=== PATIENT | female | born 1990 | race Caucasian/White ===

== ENCOUNTER 2018-03-11 15:51 | Emergency (ER) | payer MEDICAID ==
[~2018-03-11] VITALS: Ht 172.7 cm; Wt 101.2 kg
--- OUTSIDE RECORDS SUMMARY | 2018-03-11 15:59 | XMS REPORT ---
Author Author CHEYENNE MCLAUGHLIN [facility] eClinicalWorks Address Unknown Phone Unavailable Care Team Providers Care Legal Manager Name Role Phone CHEYENNE MCLAUGHLIN CP Unavailable Allergies, Adverse Reactions, Alerts Substance Reaction Event Type N.K.D.A. Info Not Available Non Drug Allergy Problems Problem Type Condition Code Onset Dates Condition Status Problem Encounter for long-term (current) use of other medications V58.69 Active Problem 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.00 Active Problem Bipolar disorder, unspecified 296.80 Active Assessment Attention deficit hyperactivity disorder (ADHD), combined type F90.2 Active Assessment Posttraumatic stress disorder F43.10 Active Problem Posttraumatic stress disorder 309.81 Active Assessment Bipolar disorder, unspecified F31.9 Active Medications Medication Code System Code Instructions Start Date End Date Status Dosage Abilify [facility] [address]-57 15 MG Orally Once a day January 22, 2015 1 tablet Zoloft [facility] 16494195944 100 Orally Once a day 1 tablet Clonidine HCl [facility] [address]-92 0.1 MG Orally twice a day 1 tablet Trazodone HCl [facility] [address]-77 100 MG Orally Once a day March 29, 2015 1 tablet Intuniv [facility] 26658460241 2 Orally Once a day 1 tablet Claritin [facility] [address]-46 10 mg Jul 04, 2014 1 Tablet by Oral route 1 time per day DDAVP [facility] [address]-49 0.2 MG Orally Once a day 1 tablet Alprazolam [facility] [address]-15 0.25 MG Orally 2 times a day April 20, 2015 1 tablet Zyprexa Zydis [facility] [address]-28 5 MG Orally as needed Once a day January 22, 2015 1 tablet on the tongue and allow to dissolve Enablex [facility] [address]-20 Aug 17, 2012 by Oral route trazodone [facility] [address]-50 100 mg January 22, 2015 1 Tablet by Oral route 1 time per day Procedures Procedure Coding System Code Date MH Office Visit, Est Pt., Level 3 CPT-4 01760 February 27, 2016 Vital Signs Date/Time: February 27, 2016 Temperature 97.9 F Weight 227.9 lbs Height 67.5 in BMI 35.16 Index Blood Pressure Diastolic 60 mmHg Blood Pressure Systolic 122 mmHg Cardiac Monitoring Heart Rate 78 bpm Results No Known Results Summary Purpose eClinicalWorks Submission
--- OUTSIDE RECORDS SUMMARY | 2018-03-11 15:59 | XMS REPORT ---
Author Author CHEYENNE MCLAUGHLIN [facility] [place] eClinicalWorks Address Unknown Phone Unavailable Care Team Providers Care Veterinary Receptionist Name Role Phone CHEYENNE MCLAUGHLIN CP Unavailable Allergies No Known Allergies Problems Problem Type Condition Code Onset Dates Condition Status Problem Encounter for long-term (current) use of other medications V58.69 Active Problem 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.00 Active Problem Bipolar disorder, unspecified 296.80 Active Assessment Posttraumatic stress disorder F43.10 Active Assessment Bipolar disorder, unspecified F31.9 Active Problem Posttraumatic stress disorder 309.81 Active Assessment Attention deficit hyperactivity disorder (ADHD), combined type F90.2 Active Medications Medication Code System Code Instructions Start Date End Date Status Dosage DDAVP [facility] [address]-60 0.2 MG Orally Once a day Aug 08, 2015 Oct 07, 2015 1 tablet Trazodone HCl [facility] [address]-49 100 MG Orally Once a day March 29, 2015 1 tablet Intuniv [facility] [address]-52 2 MG Orally Once a day January 22, 2015 1 tablet trazodone [facility] [address]-93 100 mg January 22, 2015 1 Tablet by Oral route 1 time per day Enablex [facility] [address]-87 Aug 17, 2012 by Oral route Claritin [facility] [address]-19 10 mg Jul 04, 2014 1 Tablet by Oral route 1 time per day Clonidine HCl [facility] [address]-85 0.1 MG Orally twice a day 1 tablet Abilify [facility] [address]-28 15 MG Orally Once a day January 22, 2015 1 tablet Zyprexa Zydis [facility] [address]-90 5 mg January 22, 2015 1 Tablet, Rapid Dissolve by Sublingual route 1 time per day in evening prn agitation. Alprazolam [facility] [address]-57 0.25 MG Orally 2 times a day April 20, 2015 1 tablet Zoloft [facility] 88751209051 100 Orally Once a day 1 tablet Procedures Procedure Coding System Code Date MH Office Visit, Est Pt., Level 3 CPT-4 89733 Oct 03, 2015 Vital Signs Date/Time: Oct 03, 2015 Cardiac Monitoring Heart Rate 72 bpm Weight 221.6 lbs Height 67.5 in BMI 34.19 Index Blood Pressure Diastolic 64 mmHg Blood Pressure Systolic 114 mmHg Results No Known Results Summary Purpose eClinicalWorks Submission
--- OUTSIDE RECORDS SUMMARY | 2018-03-11 15:59 | XMS REPORT ---
Author Author CHEYENNE MCLAUGHILN Organization eClinicalWorks Address Unknown Phone Unavailable Care Team Providers Care Agricultural Crop Farm Manager Name Role Phone CHEYENNE MCLAUGHLIN CP Unavailable Allergies No Known Allergies Problems Problem Type Condition Code Onset Dates Condition Status Problem Encounter for long-term (current) use of other medications V58.69 Active Problem 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.00 Active Problem Bipolar disorder, unspecified 296.80 Active Problem Posttraumatic stress disorder 309.81 Active Medications Medication Code System Code Instructions Start Date End Date Status Dosage Alprazolam [facility] [address]-96 0.25 MG Orally 2 times a day April 20, 2015 1 tablet Results No Known Results Summary Purpose eClinicalWorks Submission
--- OUTSIDE RECORDS SUMMARY | 2018-03-11 15:59 | XMS REPORT ---
Author Author CHEYENNE Barnes Organization [facility] Address Unknown Care Team Providers Care Product Inspection Coordinator Name Role Phone CHEYENNE Barnes Unavailable PROBLEMS Type Condition ICD9-CM Code [id number] Code Onset Dates Condition Status SNOMED Code Problem Encounter for long-term (current) use of other medications V58.69 Active 406059292 Problem Bipolar disorder, unspecified F31.9 Active 84367450 Problem Posttraumatic stress disorder F43.10 Active 91729309 Problem Posttraumatic stress disorder 309.81 Active 49548093 Problem 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.00 Active 96199511 Problem Attention deficit hyperactivity disorder (ADHD), combined type F90.2 Active 029199648 Problem Bipolar disorder, unspecified 296.80 Active 99311634 ALLERGIES No Known Allergies SOCIAL HISTORY Never Assessed PLAN OF CARE Activity Details Follow Up 3 Months Reason: VITAL SIGNS Height 67.5 in 2016-12-24 Weight 232 lbs 2016-12-24 Heart Rate 80 bpm 2016-12-24 Respiratory Rate 18 2016-12-24 BMI 35.80 kg/m2 2016-12-24 Blood pressure systolic 102 mmHg 2016-12-24 Blood pressure diastolic 80 mmHg 2016-12-24 MEDICATIONS Medication Instructions Dosage Frequency Start Date End Date Duration Status Zoloft 100 MG Orally Once a day 1 tablet 24h 30 days Active Abilify 15 MG Orally Once a day 1 tablet 24h Jan, 30 days Active Alprazolam 0.25 MG Orally 2 times a day 1 tablet 12h Apr, 30 days Active DDAVP 0.2 TAKE ONE TABLET BY MOUTH DAILY 30 Active Claritin 10 mg 1 Tablet by Oral route 1 time per day Jun, Active Abilify 15 Orally Once a day 1 tablet 24h 30 Active Intuniv 2 MG Orally Once a day 1 tablet 24h 30 days Active Clonidine HCl 0.1 MG Orally twice a day 1 tablet 12h 30 days Active Enablex by Oral route Aug, Active Trazodone HCl 100 MG Orally Once a day 1 tablet 24h March, 30 days Active Zyprexa Zydis 5 MG Orally as needed Once a day 1 tablet on the tongue and allow to dissolve 24h Jan, 30 days Active DDAVP 0.2 MG Orally Once a day 1 tablet 24h 30 days Active RESULTS No Results PROCEDURES No Known procedures IMMUNIZATIONS No Known Immunizations MEDICAL (GENERAL) HISTORY Type Description Date Medical History Guardian requests that we do not explain any treatment to patient!
--- OUTSIDE RECORDS SUMMARY | 2018-03-11 15:59 | XMS REPORT ---
Author Author CHEYENNE MCLAUGHLIN Organization eClinicalWorks Address Unknown Phone Unavailable Care Team Providers Care Wiping Cloth Cutter Name Role Phone CHEYENNE MCLAUGHLIN CP Unavailable Allergies No Known Allergies Problems Problem Type Condition Code Onset Dates Condition Status Problem Encounter for long-term (current) use of other medications V58.69 Active Problem 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.00 Active Problem Bipolar disorder, unspecified 296.80 Active Problem Posttraumatic stress disorder 309.81 Active Medications No Known Medications Results No Known Results Summary Purpose eClinicalWorks Submission
--- OUTSIDE RECORDS SUMMARY | 2018-03-11 15:59 | XMS REPORT ---
Author Author CHEYENNE Barnes Organization [facility] Address Unknown Care Team Providers Care Coal Cager Name Role Phone CHEYENNE Barnes Unavailable PROBLEMS Type Condition ICD9-CM Code [id number] Code Onset Dates Condition Status SNOMED Code Problem Encounter for long-term (current) use of other medications V58.69 Active 805591571 Problem Bipolar disorder, unspecified F31.9 Active 54052004 Problem Posttraumatic stress disorder F43.10 Active 28320604 Problem Posttraumatic stress disorder 309.81 Active 17351302 Problem 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.00 Active 37193144 Problem Attention deficit hyperactivity disorder (ADHD), combined type F90.2 Active 929680987 Problem Bipolar disorder, unspecified 296.80 Active 94093215 ALLERGIES No Known Allergies SOCIAL HISTORY Never Assessed PLAN OF CARE Activity Details Follow Up 3 Months Reason: VITAL SIGNS Height 67.5 in 2017-03-25 Weight 228.8 lbs 2017-03-25 Heart Rate 80 bpm 2017-03-25 Respiratory Rate 16 2017-03-25 BMI 35.30 kg/m2 2017-03-25 Blood pressure systolic 108 mmHg 2017-03-25 Blood pressure diastolic 72 mmHg 2017-03-25 MEDICATIONS Medication Instructions Dosage Frequency Start Date End Date Duration Status DDAVP 0.2 TAKE ONE TABLET BY MOUTH DAILY 30 Active Claritin 10 mg 1 Tablet by Oral route 1 time per day Jun, Active BusPIRone HCl 5 MG Orally in am once a day 1 tablet 24h March, 30 days Active Trazodone HCl 100 MG Orally Once a day 1 tablet 24h March, 30 days Active Abilify 15 MG Orally Once a day 1 tablet 24h Jan, 30 days Active Enablex by Oral route Aug, Active Abilify 15 Orally Once a day 1 tablet 24h 30 Active Intuniv 2 MG Orally Once a day 1 tablet 24h 30 days Active Zyprexa Zydis 5 MG Orally as needed Once a day 1 tablet on the tongue and allow to dissolve 24h Jan, 30 days Active Zoloft 100 MG Orally Once a day 1 tablet 24h 30 days Active DDAVP 0.2 MG Orally Once a day 1 tablet 24h 30 days Active Alprazolam 0.25 MG Orally 2 times a day 1 tablet 12h Apr, 30 days Active Clonidine HCl 0.1 MG Orally twice a day 1 tablet 12h 30 days Active RESULTS No Results PROCEDURES No Known procedures IMMUNIZATIONS No Known Immunizations MEDICAL (GENERAL) HISTORY Type Description Date Medical History Guardian requests that we do not explain any treatment to patient!
--- OUTSIDE RECORDS SUMMARY | 2018-03-11 16:00 | XMS REPORT ---
Author Author CHEYENNE MCLAUGHLIN Organization eClinicalWorks Address Unknown Phone Unavailable Care Team Providers Care Ply Splicer Name Role Phone CHEYENNE MCLAUGHLIN CP Unavailable [...] Instructions Start Date End Date Status Dosage Intuniv [facility] [address]-25 2 MG Orally Once a day January 22, 2015 1 tablet Abilify [facility] [address]-57 15 MG Orally Once a day January 22, 2015 1 tablet Clonidine HCl [facility] [address]-00 0.1 MG Orally twice a day 1 tablet Zoloft [facility] 37558612925 100 Orally Once a day 1 tablet Trazodone HCl [facility] [address]-14 100 MG Orally Once a day March 29, 2015 1 tablet Results No Known Results Summary Purpose eClinicalWorks Submission
--- OUTSIDE RECORDS SUMMARY | 2018-03-11 16:00 | XMS REPORT ---
Author Author CHEYENNE MCLAUGHLIN Organization eClinicalWorks Address Unknown Phone Unavailable Care Team Providers Care Services Rep Name Role Phone CHEYENNE MCLAUGHLIN CP Unavailable [...] Start Date End Date Status Dosage Alprazolam [facility] [address]-87 0.25 MG Orally 2 times a day April 20, 2015 1 tablet Results No Known Results Summary Purpose eClinicalWorks Submission
--- OUTSIDE RECORDS SUMMARY | 2018-03-11 16:00 | XMS REPORT ---
Author Author CHEYENNE Barnes Organization [facility] Address Unknown Care Team Providers Care Food And Beverage Attendant Name Role Phone CHEYENNE Barnes Unavailable PROBLEMS Type Condition ICD9-CM Code [id number] Code Onset Dates Condition Status SNOMED Code Problem Encounter for long-term (current) use of other medications V58.69 Active 793939881 Problem Bipolar disorder, unspecified F31.9 Active 55159714 Problem Posttraumatic stress disorder F43.10 Active 72951268 Problem Posttraumatic stress disorder 309.81 Active 52428957 Problem 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.00 Active 69427882 Problem Attention deficit hyperactivity disorder (ADHD), combined type F90.2 Active 374009769 Problem Bipolar disorder, unspecified 296.80 Active 51783969 ALLERGIES Unknown Allergies SOCIAL HISTORY No smoking Hx information available PLAN OF CARE VITAL SIGNS MEDICATIONS Medication Instructions Dosage Frequency Start Date End Date Duration Status Alprazolam 0.25 MG Orally 2 times a day 1 tablet 12h Apr, 30 days Active RESULTS No Results PROCEDURES No Known procedures IMMUNIZATIONS No Known Immunizations
--- OUTSIDE RECORDS SUMMARY | 2018-03-11 16:00 | XMS REPORT ---
Author Author TYRA HUFF Organization [facility] Address [address] [place] [address] Care Team Providers Care Plastic Manager Name Role Phone TYRA HUFF Unavailable PROBLEMS Type Condition ICD9-CM Code UOS79-US Code Onset Dates Condition Status SNOMED Code Problem Encounter for long-term (current) use of other medications V58.69 Active 678483101 Problem Bipolar disorder, unspecified F31.9 Active 53036103 Problem Posttraumatic stress disorder F43.10 Active 71722824 Problem Posttraumatic stress disorder 309.81 Active 77462140 Problem 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.00 Active 28358629 Problem Attention deficit hyperactivity disorder (ADHD), combined type F90.2 Active 259975150 Problem Bipolar disorder, unspecified 296.80 Active [id number] ALLERGIES No Information ENCOUNTERS Encounter Location Date Diagnosis [facility] [address] [address] March, [facility] [address] [address] Feb, Insect bite (nonvenomous), left knee, initial encounter S80.262A and Bitten or stung by nonvenomous insect and other nonvenomous arthropods, initial encounter W57.XXXA [facility] [id number] [place] [address]- [address] Feb, Bipolar disorder, unspecified F31.9 [facility] [address] [id number] Feb, Dental examination Z01.20 [facility] [address] [address] Feb, Bipolar disorder, unspecified F31.9 ; Attention deficit hyperactivity disorder (ADHD), combined type F90.2 and Posttraumatic stress disorder F43.10 [facility] [address] [id number] Feb, Dental examination Z01.20 [facility] [address] [place] [address]013- 3488 Jan, Bipolar disorder, unspecified F31.9 [facility] [id number] [place] [address]- 6980 Jan, Attention deficit hyperactivity disorder (ADHD), combined type F90.2 [facility] [address] [place] [address] 64886- 6679 Dec, Posttraumatic stress disorder F43.10 [facility] [id number] [place] [address]- 6503 Dec, Posttraumatic stress disorder F43.10 [facility] [id number] [place] [address] [id number] Nov, Dental examination Z01.20 [facility] [id number] [place] [address] [id number] Nov, Encounter for dental exam and cleaning w/o abnormal findings Z01.20 [facility] [id number] [place] [address] [id number] Nov, Dental examination Z01.20 [facility] [address] [place] [address]1020- 8786 Sep, Bipolar disorder, unspecified F31.9 ; Posttraumatic stress disorder F43.10 and Attention deficit hyperactivity disorder (ADHD), combined type F90.2 [facility] [address] [place] [address]28- 6181 Aug, Posttraumatic stress disorder F43.10 [facility] [address] [place] [address] 17897- 3201 15 Jul, 2017 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.899 [facility] [id number] [place] [address] 22135- 4174 Jul, Bipolar disorder, unspecified F31.9 ; Attention deficit hyperactivity disorder (ADHD), combined type F90.2 and Posttraumatic stress disorder F43.10 [facility] [address] [address] Jun, Bipolar disorder, unspecified F31.9 ; Posttraumatic stress disorder F43.10 ; Attention deficit hyperactivity disorder (ADHD), combined type F90.2 and [facility] 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 Z79.899 [facility] [address] [address] March, Bipolar disorder, unspecified F31.9 ; Posttraumatic stress disorder F43.10 and Attention deficit hyperactivity disorder (ADHD), combined type F90.2 [facility] [address] [address] Dec, Bipolar disorder, unspecified F31.9 ; Posttraumatic stress disorder F43.10 and Attention deficit hyperactivity disorder (ADHD), combined type F90.2 [facility] [address] [address] Dec, [facility] [address] [address] 27[address] Sep, [facility] [address] [address] Aug, Bipolar disorder, unspecified F31.9 ; Posttraumatic stress disorder F43.10 and Attention deficit hyperactivity disorder (ADHD), combined type F90.2 [facility] [address] [address] 9698 Jun, [facility] [address] [address] 6[address] March, [facility] [address] [address] 8[address] Feb, Bipolar disorder, unspecified F31.9 ; Attention deficit hyperactivity disorder (ADHD), combined type F90.2 and Posttraumatic stress disorder F43.10 [facility] [address] [address] Feb, [facility] [address] [place] [address] 67830- 8392 Feb, [facility] [address] [address] 9331 Feb, [facility] [id number] [place] [address] 000713- 5293 Jan, [facility] [address] [place] [address] [id number] Dec, Dental examination Z01.20 [facility] [id number] [place] [address] 17627- 5488 Sep, [facility] [id number] [place] [address] 04931- 3407 Sep, Attention deficit hyperactivity disorder (ADHD), combined type F90.2 ; Posttraumatic stress disorder F43.10 and Bipolar disorder, unspecified F31.9 [facility] [id number] [place] [address] 04207- 9167 Aug, [facility] [address] [address] 1524 Aug, [facility] [address] [place] [address] 24825- 5448 Jul, [facility] [address] [address] 94[address] May, Bipolar disorder, unspecified 296.80 ; 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.00 and Posttraumatic stress disorder 309.81 [facility] [address] [address] May, [facility] [address] [address]- 8101 May, [facility] [address] [place] [address] 47[address] May, [facility] [address] [id number] [place] [address]- 1281 Apr, [facility] [place] [facility] [address] [id number] [place] [address]- 3380 Apr, [facility] [place] [facility] [address] [id number] [place] [address]- 8594 Apr, [facility] [place] [facility] [address] [id number] [place] [address]- 7394 March, [facility] [place] [facility] [address] [id number] [place] [address]- 3153 March, [facility] [place] [facility] [address] [id number] [place] [address]- 0227 March, [facility] [place] [facility] [address] [id number] [place] [address]- 9949 Feb, [facility] [place] [facility] [address] [id number] [place] [address]- 6695 Feb, [facility] [place] [facility] [address] [id number] [place] [address]- 2497 Jan, [facility] [place] [facility] [address] [id number] [place] [address]- 9084 Jan, [facility] [place] [facility] [address] [id number] [place] [address]- 6492 Jan, [facility] [place] [facility] [address] [id number] [place] [address]- 6502 Jan, [facility] [place] [facility] [address] [id number] [place] [address]- 1622 Jan, [facility] [place] [facility] [address] [id number] [place] [address]- 8922 Jan, [facility] [place] [facility] [address] [id number] [place] [address]- 1965 Jan, [facility] [place] [facility] [address] [id number] [place] [address]- 7465 Jan, 2014 [facility] [place] [facility] [address] [id number] [place] [address]- 8485 Jan, 2014 [facility] [place] [facility] [address] [id number] [place] [address]- 9179 Jan, 2014 [facility] [place] [facility] [address] [id number] [place] [address]- 6048 Dec, 2014 [facility] [place] [facility] [address] [id number] [place] [address]- 2043 Dec, 2014 [facility] [place] [facility] [address] [id number] [place] [address]- 8164 Dec, 2014 [facility] [place] [facility] [address] [facility] [id number] [place] [address]- 2735 Dec, 2014 [facility] [place] [facility] [address] [facility] [id number] [place] [address]- 3710 Oct, [facility] [place] [facility] [address] [id number] [place] [address]- 5538 Oct, [facility] [place] [facility] [address] [facility] [id number] [place] [address]- 9638 Oct, [facility] [place] [facility] [address] [facility] [id number] [place] [address]- 8618 Oct, [facility] [place] [facility] [address] [id number] [address]- 3166 Oct, [facility] [place] [facility] [address] [facility] [id number] [place] [address]- 0838 Oct, [facility] [place] [facility] [address] [id number] [place] [address]- 2026 Oct, [facility] [place] [facility] [address] [facility] [id number] [place] [address]- 8945 Sep, [facility] [place] [facility] [address] [id number] [place] [address]- 9575 Sep, [facility] [place] [facility] [address] [id number] [place] [address]- 3420 Sep, [facility] [place] [facility] [address] [id number] [place] [address]- 0204 Sep, [facility] [place] [facility] [address] [id number] [place] [address]- 2002 Sep, [facility] [place] [facility] [address] [id number] [place] [address]- 1095 Sep, [facility] [place] [facility] [address] [id number] [place] [address]- 9202 Sep, [facility] [place] [facility] [address] [id number] [place] [address]- 9226 Sep, [facility] [place] [facility] [address] [id number] [place] [address]- 1752 Aug, [facility] [place] [facility] [address] [id number] [place] [address]- 9470 Aug, [facility] [place] [facility] [address] [id number] [place] [address]- 1351 Aug, [facility] [place] [facility] [address] [id number] [place] [address]- 4027 Aug, [facility] [place] [facility] [address] [id number] [place] [address]- 0496 Jul, [facility] [place] [facility] [address] [id number] [place] [address]- 7823 Jul, [facility] [place] [facility] [address] [id number] [place] [address]- 8935 Jul, [facility] [place] [facility] [address] [id number] [place] [address]- 4061 Jul, [facility] [place] [facility] [address] [id number] [place] [address]- 5330 Jun, [facility] [place] [facility] [address] [id number] [place] [address]- 3235 Jun, [facility] [place] [facility] [address] [id number] [place] [address]- 0538 Jun, [facility] [place] [facility] [address] [id number] [place] [address]- 8816 Jun, [facility] [place] [facility] [address] [id number] [place] [address]- 9984 May, [facility] [place] [facility] [address] [id number] [place] [address]- 8510 May, [facility] [place] [facility] [address] [id number] [place] [address]- 9397 May, [facility] [place] [facility] [address] [id number] [place] [address]- 0699 May, [facility] [place] [facility] [address] [id number] [place] [address]- 6263 Apr, [facility] [place] [facility] [address] [id number] [place] [address]- 7670 Apr, [facility] [place] [facility] [address] [id number] [place] [address]- 7502 Apr, [facility] [place] [facility] [address] [id number] [place] [address]- 5349 Apr, [facility] [place] [facility] [address] [id number] [place] [address]- 7041 Apr, [facility] [place] [facility] [address] [id number] [place] [address]- 8195 Apr, [facility] [place] [facility] [address] [id number] [place] [address]- 1154 Apr, [facility] [place] [facility] [address] [id number] [place] [address]- 1025 Apr, [facility] [place] [facility] [address] [id number] [place] [address]- 3516 Apr, [facility] [place] [facility] [address] [id number] [place] [address]- 3282 Apr, [facility] [place] [facility] [address] [id number] [place] [address]- 4318 Apr, [facility] [place] [facility] [address] [id number] [place] [address]- 7176 Apr, [facility] [place] [facility] [address] [id number] [place] [address]- 6667 Apr, [facility] [place] [facility] [address] [id number] [place] [address]- 6551 March, [facility] [place] [facility] [address] [id number] [place] [address]- 1895 March, [facility] [place] [facility] [address] [id number] [place] [address]- 0707 March, [facility] [place] [facility] [address] [id number] [place] [address]- 0911 March, [facility] [place] [facility] [address] [id number] [place] [address]- 0473 Jan, [facility] [place] [facility] [address] [id number] [place] [address]- 9511 Jan, [facility] [place] [facility] [address] [id number] [place] [address]- 5794 Jan, [facility] [place] [facility] [address] [id number] [place] [address]- 5192 Jan, [facility] [place] [facility] [address] [id number] [place] [address]- 7145 Jan, [facility] [place] [facility] [address] [id number] [place] [address]- 0458 Jan, [facility] [place] [facility] [address] [id number] [place] [address]- 3011 Dec, [facility] [place] [facility] [address] [id number] [place] [address]- 8450 Dec, [facility] [address] [id number] [place] [address]- 9026 Dec, [facility] [place] [facility] [address] [id number] [place] [address]- 2546 Dec, [facility] [place] [facility] [address] [id number] [place] [address]- 5676 Nov, [facility] [place] [facility] [address] [id number] [place] [address]- 2166 Nov, [facility] [place] [facility] [address] [id number] [place] [address]- 6649 Nov, [facility] [place] [facility] [address] [id number] [place] [address]- 8143 Nov, [facility] [place] [facility] [address] [id number] [place] [address]- 0891 Oct, [facility] [address] [id number] [place] [address]- 9256 Oct, [facility] [place] [facility] [address] [id number] [place] [address]- 6374 Oct, [facility] [address] [facility] [id number] [place]68 Oct, [facility] [place] [facility] [address] [id number] [place] [address]- 6242 Oct, [facility] [place] [facility] [address] [id number] [place] [address]- 2541 Oct, [facility] [place] [facility] [address] [id number] [place] [address]- 5916 Oct, [facility] [place] [facility] [address] [id number] [place] [address]- 1696 Oct, [facility] [place] [facility] [address] [id number] [place] [address]- 3355 Sep, [facility] [place] [facility] [address] [id number] [place] [address]- 2189 Sep, [facility] [place] [facility] [address] [id number] [place] [address]- 2421 Jul, [facility] [place] [facility] [address] [id number] [place] [address]- 2637 Jul, [facility] [place] [facility] [address] [id number] [place] [address]- 2816 Jul, [facility] [place] [facility] [address] [id number] [place] [address]- 6847 Jul, [facility] [place] [facility] [address] [id number] [place] [address]- 2352 Jun, [facility] [place] [facility] [address] [id number] [place] [address]- 1330 Jun, [facility] [place] [facility] [address] [id number] [place] [address]- 5976 May, [facility] [place] [facility] [address] [id number] [place] [address]- 2676 Apr, [facility] [place] [facility] [address] [id number] [place] [address]- 2865 Apr, [facility] [place] [facility] [address] [id number] [address]- 3238 Apr, [facility] [place] [facility] [address] [id number] [address]- 6675 March, [facility] [place] [facility] [address] [id number] [place] [address]- 2327 March, [facility] [place] [facility] [address] [id number] [address]- 2362 Feb, [facility] [place] [facility] [address] [id number] [place] [address]- 8637 Jan, [facility] [place] [facility] [address] [id number] [place] [address]- 0807 Jan, [facility] [address] [id number] [place] [address]- 3992 Dec, [facility] [place] [facility] [address] [id number] [place] [address]- 9486 Dec, [facility] [address] [id number] [place] [address]- 0875 Nov, [facility] [place] [facility] [address] [id number] [place] [address]- 6478 Nov, [facility] [address] [id number] [place] [address]- 1603 Nov, [facility] [place] [facility] [address] [id number] [place] [address]- 3521 Oct, [facility] [address] [id number] [place] [address]- 1159 Oct, [facility] [address] [id number] [place] [address]- 4121 Oct, [facility] [place] [facility] [address] [id number] [place] [address]- 3833 Oct, [facility] [address] [id number] [place] [address]- 7509 Sep, [facility] [place] [facility] [address] [id number] [place] [address] 2546 29 Sep, 2012 [facility] [place] [facility] [address] [id number] [place] [address]- 2549 Sep, [facility] [place] [facility] [address] [id number] [place] [address] 2543 Sep, [facility] [place] [facility] [address] [id number] [place] [address]- 2546 15 Sep, 2012 [facility] [place] [facility] [address] [id number] [place] Sep, [facility] [place] [facility] [address] [id number] [place] [address]- 2491 Aug, [facility] [place] [facility] [address] [id number] [place] [address]- 1746 26 Jul, 2012 [facility] [place] [facility] [address] [id number] [place] [address] 2542 19 Jul, 2012 [facility] [place] [facility] [address] [id number] [place] [address] 18 Jul, 2012 [facility] [address] [id number] [place] [address] 14 Jul, 2012 [facility] [place] [facility] [address] [id number] [place] [address] Jun, [facility] [place] [facility] [address] [id number] [place] [address] Jun, [facility] [place] [facility] [address] [id number] [place] [address] Jun, [facility] [place] [facility] [address] [id number] [place] [address] Jun, [facility] [place] [facility] [address] [id number] [place] [address] May, [facility] [place] [facility] [address] [id number] [place] [address] Apr, [facility] [place] [facility] [address] [id number] [place] [address] March, [facility] [place] [facility] [address] [id number] [place] [address] March, [facility] [place] [facility] [address] [id number] [place] [address] March, [facility] [place] [facility] [address] [id number] [place] [address] Feb, [facility] [place] [facility] [address] [id number] [address] Feb, [facility] [address] [id number] [place] [address] Jan, [facility] [place] [facility] [address] [id number] [place] [address] Jan, [facility] [address] [id number] [place] [address] Jan, [facility] [place] [facility] [address] [id number] [place] [address] Dec, [facility] [address] [id number] [place] [address] Dec, [facility] [address] [id number] [place] [address] Nov, [facility] [address] [id number] [place] [address] Nov, [facility] [address] [id number] [place] [address] Nov, [facility] [address] [facility] [id number] [place] [address] Nov, [facility] [address] [id number] [place] [address] Nov, [facility] [address] [id number] [address] Oct, [facility] [place] [facility] [address] [id number] [place] [address] Oct, [facility] [place] [facility] [address] [id number] [place] [address] Oct, [facility] [place] [facility] [address] [id number] [place] [address] Oct, [facility] [place] [facility] [address] [facility] [id number] [place] [address] Sep, [facility] [place] [facility] [address] [facility] [id number][place] [address] 17 Sep, 2011 [facility] [address] [facility] [id number][place] [address] Sep, [facility] [address] [id number] [address] Aug, [facility] [address] [facility] [id number] [address] Oct, [facility] [address] [facility] [id number][place] [address] Oct, [facility] [address] [id number], [place] [address] Oct, [facility] [address] [facility] [id number][place] [address] Oct, IMMUNIZATIONS No Known Immunizations SOCIAL HISTORY Never Assessed REASON FOR VISIT PLAN OF CARE VITAL SIGNS MEDICATIONS Medication Instructions Dosage Frequency Start Date End Date Duration Status Intuniv 2 MG Orally Once a day 1 tablet 24h 30 days Active Trazodone HCl 100 mg Orally Once a day 1 tablet 24h March, 30 days Active Zoloft 100 mg Orally Once a day 1 tablet 24h 30 days Active Abilify 15 mg Orally Once a day 1 tablet 24h 30 days Active Clonidine HCl 0.1 MG Orally twice a day 1 tablet 12h 30 days Active Zyprexa Zydis 5 mg Orally as needed Once a day 1 tablet on the tongue and allow to dissolve 24h Jan, 30 days Active BusPIRone HCl 5 mg Orally in am once a day 1 tablet 24h March, 30 days Active DDAVP 0.2 mg TAKE ONE TABLET BY MOUTH DAILY 30 days Active RESULTS No Results PROCEDURES No Known procedures INSTRUCTIONS MEDICATIONS ADMINISTERED No Known Medications MEDICAL (GENERAL) HISTORY Type Description Date Medical History Guardian requests that we do not explain any treatment to patient!
--- OUTSIDE RECORDS SUMMARY | 2018-03-11 16:00 | XMS REPORT ---
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
--- OUTSIDE RECORDS SUMMARY | 2018-03-11 16:00 | XMS REPORT ---
Author Author CHEYENNE MCLAUGHLIN [facility] [employer] Address Unknown Phone Unavailable Care Team Providers Care Firer Helper Name Role Phone CHEYENNE MCLAUGHLIN CP Unavailable Allergies No Known Allergies Problems Problem Type Condition Code Onset Dates Condition Status Assessment Attention deficit hyperactivity disorder (ADHD), combined type F90.2 Active Assessment Bipolar disorder, unspecified F31.9 Active Assessment Posttraumatic stress disorder F43.10 Active Problem Posttraumatic stress disorder F43.10 Active Problem [...] Start Date End Date Status Dosage Intuniv [facility] [address]-53 2 MG Orally Once a day 1 tablet Zyprexa Zydis [facility] [place] [address]-23 5 MG Orally as needed Once a day January 22, 2015 1 tablet on the tongue and allow to dissolve Claritin [facility] [place] [address]-34 10 mg Jul 04, 2014 1 Tablet by Oral route 1 time per day DDAVP [facility] [place] [address]-03 0.2 MG Orally Once a day 1 tablet Trazodone HCl [facility] [place] [address]-54 100 MG Orally Once a day March 29, 2015 1 tablet DDAVP [facility] [place] 70210190798 0.2 TAKE ONE TABLET BY MOUTH DAILY Enablex [facility] [place] [address]-52 Aug 17, 2012 by Oral route Clonidine HCl [facility] [place] [address]-88 0.1 MG Orally twice a day 1 tablet Abilify [facility] [place] [address]-61 15 MG Orally Once a day January 22, 2015 1 tablet Trazodone HCl [facility] [place] 72300431067 100 Orally Once a day 1 tablet Alprazolam [facility] [place] [address]-34 0.25 MG Orally 2 times a day April 20, 2015 1 tablet Zoloft [facility] [place] [address]-65 100 MG Orally Once a day 1 tablet trazodone [facility] [place] [address]-51 100 mg January 22, 2015 1 Tablet by Oral route 1 time per day Procedures Procedure Coding System Code Date Office Visit, Est Pt., Level 3 CPT-4 86412 Aug 27, 2016 Vital Signs Date/Time: Aug 27, 2016 Cardiac Monitoring Heart Rate 80 bpm Weight 227.6 lbs Height 67.5 in BMI 35.12 Index Blood Pressure Diastolic 68 mmHg Blood Pressure Systolic 122 mmHg Results No Known Results Summary Purpose [employer] Submission
--- OUTSIDE RECORDS SUMMARY | 2018-03-11 16:01 | XMS REPORT | Continuity of Care Document ---
Author Author [facility] Address Unknown Phone Unavailable Allergies There is no data. Medications There is no data. Problems Date Dx Coded Attending Type Code Diagnosis Diagnosed By 07/24/2010 DARLENE ADAMES AMADOU TALAMANTESH 296.90 MO MOOD DIS NOS 07/24/2010 COLON ROSANGELA, AMADOU TALAMANTESH 314.01 ADHD COMBINED 07/24/2010 COLON ROSANGELA AMADOU SANTACRUZ 296.90 MO MOOD DIS NOS 07/24/2010 COLON ROSANGELA AMADOU NEETA 314.01 ADHD COMBINED 07/24/2010 296.90 MO MOOD DIS NOS 07/24/2010 314.01 ADHD COMBINED 07/24/2010 DARLENE ADAMES AMADOU SANTACRUZ 296.90 MO MOOD DIS NOS 07/24/2010 COLON SALES PROJECT COORDINATOR, AMADOU TALAMANTESH 314.01 ADHD COMBINED 07/24/2010 COLON SALES PROJECT COORDINATOR, AMADOU NEETA 296.90 MO MOOD DIS NOS 07/24/2010 COLON SALES PROJECT COORDINATOR, AMADOU NEETA 314.01 ADHD COMBINED 07/24/2010 COLON SALES PROJECT COORDINATOR, AMADOU NEETA 296.90 MO MOOD DIS NOS 07/24/2010 COLON SALES PROJECT COORDINATOR, AMADOU NEETA 314.01 ADHD COMBINED 07/24/2010 COLON SALES PROJECT COORDINATOR, AMADOU NEETA 296.90 MO MOOD DIS NOS 07/24/2010 COLON SALES PROJECT COORDINATOR, AMADOU NEETA 314.01 ADHD COMBINED 07/24/2010 CHEYENNE LIN M 296.90 MO MOOD DIS NOS 07/24/2010 CHEYENNE LIN M 314.01 ADHD COMBINED 07/24/2010 CHEYENNE LIN M 296.90 MO MOOD DIS NOS 07/24/2010 [employer]IV[employer]IVER, CHEYENNE M 314.01 ADHD COMBINED 07/24/2010 [facility], NATALIYA R 296.90 MO MOOD DIS NOS 07/24/2010 [facility], NATALIYA R 314.01 ADHD COMBINED 08/21/2010 DARLENE ADAMES AMADOU NEETA 296.90 MO MOOD DIS NOS 08/21/2010 COLON SALES PROJECT COORDINATOR, AMADOU SANTACRUZ 314.01 ADHD COMBINED 08/21/2010 COLON SALES PROJECT COORDINATOR, AMADOU SANTACRUZ 317 MILD MENTAL RETARDATION 08/21/2010 COLON SALES PROJECT COORDINATOR, AMADOU SANTACRUZ 296.90 MO MOOD DIS NOS 08/21/2010 COLON SALES PROJECT COORDINATOR, AMADOU SANTACRUZ 314.01 ADHD COMBINED 08/21/2010 COLON SALES PROJECT COORDINATOR, AMADOU SANTACRUZ 317 MILD MENTAL RETARDATION 08/21/2010 296.90 MO MOOD DIS NOS 08/21/2010 314.01 ADHD COMBINED 08/21/2010 317 MILD MENTAL RETARDATION 08/21/2010 COLON SALES PROJECT COORDINATOR, AMADOU SANTACRUZ 296.90 MO MOOD DIS NOS 08/21/2010 COLON SALES PROJECT COORDINATOR, AMADOU SANTACRUZ 314.01 ADHD COMBINED 08/21/2010 COLON SALES PROJECT COORDINATOR, AMADOU SANTACRUZ 317 MILD MENTAL RETARDATION 08/21/2010 COLON SALES PROJECT COORDINATOR, AMADOU SANTACRUZ 296.90 MO MOOD DIS NOS 08/21/2010 COLON SALES PROJECT COORDINATOR, AMADOU SANTACRUZ 314.01 ADHD COMBINED 08/21/2010 COLON SALES PROJECT COORDINATOR, AMADOU SANTACRUZ 317 MILD MENTAL RETARDATION 08/21/2010 COLON SALES PROJECT COORDINATOR, AMADOU SANTACRUZ 296.90 MO MOOD DIS NOS 08/21/2010 COLON SALES PROJECT COORDINATOR, AMADOU SANTACRUZ 314.01 ADHD COMBINED 08/21/2010 COLON SALES PROJECT COORDINATOR, AMADOU SANTACRUZ 317 MILD MENTAL RETARDATION 08/21/2010 COLON SALES PROJECT COORDINATOR, AMADOU SANTACRUZ 296.90 MO MOOD DIS NOS 08/21/2010 COLON SALES PROJECT COORDINATOR, AMADOU SANTACRUZ 314.01 ADHD COMBINED 08/21/2010 COLON SALES PROJECT COORDINATOR, AMADOU SANTACRUZ 317 MILD MENTAL RETARDATION 08/21/2010 [employer]IV[employer]IVER, CHEYENNE M 296.90 MO MOOD DIS NOS 08/21/2010 [employer] SE[employer]ONAL 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 DRIVER, CHEYENNE M 314.01 ADHD COMBINED 08/21/2010 [employer] SE[employer]ONAL DELIVERY DRIVER, CHEYENNE M 317 MILD MENTAL RETARDATION 08/21/2010 [employer] SE[employer]ONAL DELIVERY DRIVER, CHEYENNE M 296.90 MO MOOD DIS NOS 08/21/2010 [employer] SE[employer] DELIVERY DRIVER, CHEYENNE M 314.01 ADHD COMBINED 08/21/2010 [employer] SE[employer] DELIVERY DRIVER, CHEYENNE M 317 MILD MENTAL RETARDATION 08/21/2010 [facility], NATALIYA R 296.90 MO MOOD DIS NOS 08/21/2010 [facility], NATALIYA R 314.01 ADHD COMBINED 08/21/2010 [facility], NATALIYA R 317 MILD MENTAL RETARDATION 11/27/2010 DARLENE CARTERNAMADOU 300.02 AN GEN ANXIETY 11/27/2010 DARLENE CARTERNAMADOU 313.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 11/27/2010 DARLENE CARTERNAMADOU 300.02 AN GEN ANXIETY 11/27/2010 COLON SALES PROJECT COORDINATORAMADOU 313.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 11/27/2010 300.02 AN GEN ANXIETY 11/27/2010 313.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 11/27/2010 DARLENE CARTERNAMADOU 300.02 AN GEN ANXIETY 11/27/2010 COLON SALES PROJECT COORDINATORAMADOU 313.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 11/27/2010 COLON SALES PROJECT COORDINATORAMADOU 300.02 AN GEN ANXIETY 11/27/2010 DARLENE CARTERNAMADOU 313.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 11/27/2010 DARLENE CARTERNAMADOU 300.02 AN GEN ANXIETY 11/27/2010 COLON SALES PROJECT COORDINATORAMADOU 313.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 11/27/2010 COLON SALES PROJECT COORDINATORAMADOU 300.02 AN GEN ANXIETY 11/27/2010 COLON SALES PROJECT COORDINATORAMADOU 313.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 11/27/2010 [employer] DELIV[employer] DRIVER, CHEYENNE M 300.02 AN GEN ANXIETY 11/27/2010 [employer] SE[employer] DELIVERY DRIVER, CHEYENNE M 313.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 11/27/2010 [employer] SE[employer]ONAL DELIVERY DRIVER, CHEYENNE M 300.02 AN GEN ANXIETY 11/27/2010 [employer] SE[employer] DELIVERY DRIVER, CHEYENNE M 313.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 11/27/2010 [facility], NATALIYA R 300.02 AN GEN ANXIETY 11/27/2010 [facility], NATALIYA R 313.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 12/05/2011 COLON SALES PROJECT COORDINATOR, AMADOU SANTACRUZ 309.81 AN PTSD 12/05/2011 COLON SALES PROJECT COORDINATOR, AMADOU SANTACRUZ 314.00 ADHD INATTENTIVE 12/05/2011 COLON SALES PROJECT COORDINATOR, AMADOU SANTACRUZ 309.81 AN PTSD 12/05/2011 COLON SALES PROJECT COORDINATOR, AMADOU SANTACRUZ 314.00 ADHD INATTENTIVE 12/05/2011 309.81 AN PTSD 12/05/2011 314.00 ADHD INATTENTIVE 12/05/2011 COLON SALES PROJECT COORDINATOR, AMADOU TALAMANTESH 309.81 AN PTSD 12/05/2011 COLON SALES PROJECT COORDINATOR, AMADOU TALAMANTESH 314.00 ADHD INATTENTIVE 12/05/2011 COLON SALES PROJECT COORDINATOR, AMADOU NEETA 309.81 AN PTSD 12/05/2011 COLON SALES PROJECT COORDINATOR, AMADOU TALAMANTESH 314.00 ADHD INATTENTIVE 12/05/2011 COLON SALES PROJECT COORDINATOR, AMADOU NEETA 309.81 AN PTSD 12/05/2011 COLON SALES PROJECT COORDINATOR, AMADOU TALAMANTESH 314.00 ADHD INATTENTIVE 12/05/2011 COLON SALES PROJECT COORDINATOR, AMADOU NEETA 309.81 AN PTSD 12/05/2011 COLON SALES PROJECT COORDINATOR, AMADOU TALAMANTESH 314.00 ADHD INATTENTIVE 12/05/2011 [employer]IV[employer], CHEYENNE M 309.81 AN PTSD 12/05/2011 [employer] SE[employer] DELIVERY DRIVER, CHEYENNE M 314.00 ADHD INATTENTIVE 12/05/2011 [employer] DELIVERY DRIVER, CHEYENNE M 309.81 AN PTSD 12/05/2011 [employer] DELIVERY DRIVER, CHEYENNE M 314.00 ADHD INATTENTIVE 12/05/2011 [facility], NATALIYA R 309.81 AN PTSD 12/05/2011 [facility], NATALIYA R 314.00 ADHD INATTENTIVE 10/20/2012 COLON SALES PROJECT COORDINATOR, AMADOU SANTACRUZ 296.80 MO BIPOLAR NOS 10/20/2012 COLON SALES PROJECT COORDINATOR, AMADOU NEETA 296.80 MO BIPOLAR NOS 10/20/2012 296.80 MO BIPOLAR NOS 10/20/2012 COLON SALES PROJECT COORDINATOR, AMADOU NEETA 296.80 MO BIPOLAR NOS 10/20/2012 COLON SALES PROJECT COORDINATOR, AMADOU NEETA 296.80 MO BIPOLAR NOS 10/20/2012 COLON SALES PROJECT COORDINATOR, AMADOU NEETA 296.80 MO BIPOLAR NOS 10/20/2012 [employer] DELIVERY DRIVER, CHEYENNE M 296.80 MO BIPOLAR NOS 10/20/2012 [employer] SE[employer] DELIVERY DRIVER, CHEYENNE M 296.80 MO BIPOLAR NOS 10/20/2012 [facility], NATALIYA R 296.80 MO BIPOLAR NOS 04/20/2013 V58.69 MEDICATION HIGH RISK 04/20/2013 COLON SALES PROJECT COORDINATOR, AMADOU NEETA V58.69 MEDICATION HIGH RISK 04/20/2013 COLON SALES PROJECT COORDINATOR, AMADOU NEETA V58.69 MEDICATION HIGH RISK 04/20/2013 COLON SALES PROJECT COORDINATOR, AMADOU NEETA V58.69 MEDICATION HIGH RISK 04/20/2013 [employer] FLOWERS CHEYENNE M V58.69 MEDICATION HIGH RISK 04/20/2013 CHEYENNE LIN V58.69 MEDICATION HIGH RISK 04/20/2013 [facility], NATALIYA Yates V58.69 MEDICATION HIGH RISK Procedures Code [place] [address] PSYCH IND W/MED CK 20 10/27/2012 Results Test Result Range Comp. Metabolic Panel (14) - 07/31/17 09:16 Glucose, Serum 94 mg/dL 65-99 BUN 9 mg/dL 6-20 Creatinine, Serum 0.74 mg/dL 0.57-1.00 eGFR If NonAfricn Am 113 mL/min/1.73 >59 eGFR If Africn Am 130 mL/min/1.73 >59 BUN/Creatinine Ratio 12 9-23 Sodium, Serum 143 mmol/L 134-144 Potassium, Serum 4.5 mmol/L 3.5-5.2 Chloride, Serum 105 mmol/L 96-106 Carbon Dioxide, Total 21 mmol/L 18-29 Calcium, Serum 9.6 mg/dL 8.7-10.2 Protein, Total, Serum 6.7 g/dL 6.0-8.5 Albumin, Serum 4.1 g/dL 3.5-5.5 Globulin, Total 2.6 g/dL 1.5-4.5 A/G Ratio 1.6 1.2-2.2 Bilirubin, Total 0.4 mg/dL 0.0-1.2 Alkaline Phosphatase, S 102 IU/L 39-117 AST (SGOT) 26 IU/L 0-40 ALT (SGPT) 33 IU/L 0-32 Lipid Panel - 07/31/17 09:16 Cholesterol, Total 147 mg/dL 100-199 Triglycerides 232 mg/dL 0-149 HDL Cholesterol 27 mg/dL >39 VLDL Cholesterol Fernie 46 mg/dL 5-40 LDL Cholesterol Calc 74 mg/dL 0-99 CMP - 07/31/17 09:16 Glucose, Serum 94 mg/dL 65-99 BUN 9 mg/dL 6-20 Creatinine, Serum 0.74 mg/dL 0.57-1.00 eGFR If NonAfricn Am 113 mL/min/1.73 >59 eGFR If Africn Am 130 mL/min/1.73 >59 BUN/Creatinine Ratio 12 9-23 Sodium, Serum 143 mmol/L 134-144 Potassium, Serum 4.5 mmol/L 3.5-5.2 Chloride, Serum 105 mmol/L 96-106 Carbon Dioxide, Total 21 mmol/L 18-29 Calcium, Serum 9.6 mg/dL 8.7-10.2 Protein, Total, Serum 6.7 g/dL 6.0-8.5 Albumin, Serum 4.1 g/dL 3.5-5.5 Globulin, Total 2.6 g/dL 1.5-4.5 A/G Ratio 1.6 1.2-2.2 Bilirubin, Total 0.4 mg/dL 0.0-1.2 Alkaline Phosphatase, S 102 IU/L 39-117 AST (SGOT) 26 IU/L 0-40 ALT (SGPT) 33 IU/L 0-32 Encounters ACCT No. Visit Date/Time Discharge Status Pt. Type Provider Facility Loc./Unit Complaint [id number] 01/10/2015 16:02:00 01/10/2015 23:59:59 [facility] Outpatient NATALIYA COLBY [id number] 10/11/2014 16:00:00 10/11/2014 23:59:59 [facility] Outpatient CHEYENNE LIN [id number] 10/11/2014 16:00:00 10/11/2014 23:59:59 [facility] Outpatient CHEYENNE LIN [id number] 07/04/2014 16:28:00 07/04/2014 23:59:59 [facility] Outpatient AMADOU COLON APRN [id number] 10/25/2013 16:57:00 10/25/2013 23:59:59 [facility] Outpatient AMADOU COLON APRN [id number] 07/23/2013 10:01:00 07/23/2013 23:59:59 [facility] Outpatient AMADOU COLON APRN [id number] 01/18/2013 16:36:00 01/18/2013 23:59:59 [facility] Outpatient AMADOU COLON APRN [id number] 10/20/2012 16:34:00 10/20/2012 23:59:59 [facility] Outpatient AMADOU COLON APRN [id number] 08/17/2012 16:27:00 08/17/2012 23:59:59 [facility] Outpatient AMADOU COLON APRN [id number] 04/20/2013 16:29:00 Document Registration [id number] 08/01/2017 08:36:00 Document Registration [id number] 03/08/2018 14:55:00 03/08/2018 23:59:59 [facility] Outpatient ITALO PURVIS LAC [facility] [id number] 07/31/2017 09:20:00 Document Registration [id number] 07/01/2016 17:25:48 07/01/2016 17:25:48 Outpatient
--- OUTSIDE RECORDS SUMMARY | 2018-03-11 16:01 | XMS REPORT ---
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.00 Active 39713421 Problem Attention deficit hyperactivity disorder (ADHD), combined type F90.2 Active 768579710 Problem Bipolar disorder, unspecified 296.80 Active 70393377 ALLERGIES No Information ENCOUNTERS Encounter Location Date Diagnosis [facility] [address] [address] March, [facility] [address] [address] Feb, Insect bite (nonvenomous), left knee, initial encounter S80.262A and Bitten or stung by nonvenomous insect and other nonvenomous arthropods, initial encounter W57.XXXA [facility] [id number] [place] [address] Feb, Bipolar disorder, unspecified F31.9 [facility] [address] [id number] Feb, Dental examination Z01.20 [facility] [address] [address] Feb, Bipolar disorder, unspecified F31.9 ; Attention deficit hyperactivity disorder (ADHD), combined type F90.2 and Posttraumatic stress disorder F43.10 [facility] [address] [id number] Feb, Dental examination Z01.20 [facility] [address], [place] [address] Jan, Bipolar disorder, unspecified F31.9 [facility] [id number] [place] [address] Jan, Attention deficit hyperactivity disorder (ADHD), combined type F90.2 [facility] [address], [place] [address] Dec, Posttraumatic stress disorder F43.10 [facility] [id number] [place] [address] Dec, Posttraumatic stress disorder F43.10 [facility] [id number] [place] [id number] Nov, Dental examination Z01.20 [facility] [id number] [place] [id number] Nov, Dental examination Z01.20 [facility] [id number] [place] [id number] Nov, Encounter for dental exam and cleaning w/o abnormal findings Z01.20 [facility] [id number] [place] [address] Sep, Bipolar disorder, unspecified F31.9 ; Posttraumatic stress disorder F43.10 and Attention deficit hyperactivity disorder (ADHD), combined type F90.2 [facility] [id number] [place] [address] Aug, Posttraumatic stress disorder F43.10 [facility] [address] [place] [address] 15 Jul, 2017 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 [facility] [id number] [place] [address] Jul, Bipolar disorder, unspecified F31.9 ; Attention deficit hyperactivity disorder (ADHD), combined type F90.2 and Posttraumatic stress disorder F43.10 [facility] [address], [place] [address] Jun, Bipolar disorder, unspecified F31.9 ; Posttraumatic stress disorder F43.10 ; Attention deficit hyperactivity disorder (ADHD), combined type F90.2 and Other halfway (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 Z79.899 [facility] [address], [place] [address] March, Bipolar disorder, unspecified F31.9 ; Posttraumatic stress disorder F43.10 and Attention deficit hyperactivity disorder (ADHD), combined type F90.2 [facility] [address], [place] [address] Dec, Bipolar disorder, unspecified F31.9 ; Posttraumatic stress disorder F43.10 and Attention deficit hyperactivity disorder (ADHD), combined type F90.2 [facility] [address], [place] [address] Dec, [facility] [address], [place] [address] Sep, [facility] [address] [address] Aug, Bipolar disorder, unspecified F31.9 ; Posttraumatic stress disorder F43.10 and Attention deficit hyperactivity disorder (ADHD), combined type F90.2 [facility] [address], [place] [address] Jun, [facility] [address], [place] [address] March, [facility] [address], [place] [address] Feb, Bipolar disorder, unspecified F31.9 ; Attention deficit hyperactivity disorder (ADHD), combined type F90.2 and Posttraumatic stress disorder F43.10 [facility] [address], [place] [address] Feb, [facility] [id number] [place] [address] Feb, [facility] [address], [place] [address] Feb, [facility] [id number] [place] [address] 87[address] Jan, [facility] [id number] [place] [id number] Dec, Dental examination Z01.20 [facility] [id number] [place] [address] Sep, [facility] [id number] [place] [address] Sep, Attention deficit hyperactivity disorder (ADHD), combined type F90.2 ; Posttraumatic stress disorder F43.10 and Bipolar disorder, unspecified F31.9 [facility] [id number] [place] [address] 28[address] Aug, [facility] [address], [place] [address] Aug, [facility] [id number] [place] [address] Jul, [facility] [address], [place] [address] May, Bipolar disorder, unspecified 296.80 ; 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.00 and Posttraumatic stress disorder 309.81 [facility] [address] [address] May, [facility] [address], [place] [address] May, [facility] [address] [place] [address] May, [facility] [address] [id number] [place] [address] Apr, [facility] [place] [facility] [address] [id number] [place] [address]- 76[address] Apr, [facility] [place] [facility] [address] [id number] [place] [address]- 6[address] Apr, [facility] [place] [facility] [address] [id number] [place] [address] 8[address] March, [facility] [place] [facility] [address] [id number] [place] [address] March, [facility] [place] [facility] [address] [id number] [place] [address]- 0026 March, [facility] [place] [facility] [address] [id number] [place] [address]- 6137 Feb, [facility] [place] [facility] [address] [id number] [place] [address]- 2[address] Feb, [facility] [place] [facility] [address] [id number] [place] [address]- 0812 Jan, [facility] [place] [facility] [address] [id number] [place] [address]- 10[address] Jan, [facility] [place] [facility] [address] [id number] [place] [address]- 0757 Jan, [facility] [place] [facility] [address] [id number] [place] [address]- 6727 Jan, [facility] [place] [facility] [address] [id number] [place] [address]- 0282 Jan, [facility] [place] [facility] [address] [id number] [place] [address]- 1648 Jan, [facility] [place] [facility] [address] [id number] [place] [address]- 0533 Jan, [facility] [place] [facility] [address] [id number] [place] [address]- 7364 Jan, 2014 [facility] [place] [facility] [address] [id number] [place] [address]- 5211 Jan, 2014 [facility] [place] [facility] [address] [id number] [place] [address]- 9111 Jan, 2014 [facility] [place] [facility] [address] [id number] [place] [address]- 6230 Dec, 2014 [facility] [place] [facility] [address] [id number] [place] [address]- 0740 Dec, 2014 [facility] [place] [facility] [address] [id number] [place] [address]- 8749 Dec, 2014 [facility] [place] [facility] [address] [facility] [id number] [place] [address]- 8609 Dec, 2014 [facility] [place] [facility] [address] [facility] [id number] [place] [address]- 8621 Oct, [facility] [place] [facility] [address] [id number] [place] [address]- 1947 Oct, [facility] [place] [facility] [address] [facility] [id number] [place] [address]- 8159 Oct, [facility] [place] [facility] [address] [facility] [id number] [place] [address]- 5968 Oct, [facility] [place] [facility] [address] [id number] [address]- 9897 Oct, [facility] [place] [facility] [address] [facility] [id number] [place] [address]- 8376 Oct, [facility] [place] [facility] [address] [id number] [place] [address]- 4140 Oct, [facility] [place] [facility] [address] [facility] [id number] [place] [address]- 3451 Sep, [facility] [place] [facility] [address] [id number] [place] [address]- 8682 Sep, [facility] [place] [facility] [address] [id number] [place] [address]- 9970 Sep, [facility] [place] [facility] [address] [id number] [place] [address]- 3128 Sep, [facility] [place] [facility] [address] [id number] [place] [address]- 7307 Sep, [facility] [place] [facility] [address] [id number] [place] [address]- 7915 Sep, [facility] [place] [facility] [address] [id number] [place] [address]- 2133 Sep, [facility] [place] [facility] [address] [id number] [place] [address]- 9811 Sep, [facility] [place] [facility] [address] [id number] [place] [address]- 7953 Aug, [facility] [place] [facility] [address] [id number] [place] [address]- 2853 Aug, [facility] [place] [facility] [address] [id number] [place] [address]- 5850 Aug, [facility] [place] [facility] [address] [id number] [place] [address]- 2068 Aug, [facility] [place] [facility] [address] [id number] [place] [address]- 9079 Jul, [facility] [place] [facility] [address] [id number] [place] [address]- 1223 Jul, [facility] [place] [facility] [address] [id number] [place] [address]- 1681 Jul, [facility] [place] [facility] [address] [id number] [place] [address]- 3168 Jul, [facility] [place] [facility] [address] [id number] [place] [address]- 9384 Jun, [facility] [place] [facility] [address] [id number] [place] [address]- 2115 Jun, [facility] [place] [facility] [address] [id number] [place] [address]- 8775 Jun, [facility] [place] [facility] [address] [id number] [place] [address]- 6238 Jun, [facility] [place] [facility] [address] [id number] [place] [address]- 8878 May, [facility] [place] [facility] [address] [id number] [place] [address]- 7604 May, [facility] [place] [facility] [address] [id number] [place] [address]- 6228 May, [facility] [place] [facility] [address] [id number] [place] [address]- 0885 May, [facility] [place] [facility] [address] [id number] [place] [address]- 4678 Apr, [facility] [place] [facility] [address] [id number] [place] [address]- 8621 Apr, [facility] [place] [facility] [address] [id number] [place] [address]- 2899 Apr, [facility] [place] [facility] [address] [id number] [place] [address]- 1169 Apr, [facility] [place] [facility] [address] [id number] [place] [address]- 4159 Apr, [facility] [place] [facility] [address] [id number] [place] [address]- 7651 Apr, [facility] [place] [facility] [address] [id number] [place] [address]- 1570 Apr, [facility] [place] [facility] [address] [id number] [place] [address]- 4475 Apr, [facility] [place] [facility] [address] [id number] [place] [address]- 1128 Apr, [facility] [place] [facility] [address] [id number] [place] [address]- 0065 Apr, [facility] [place] [facility] [address] [id number] [place] [address]- 2755 Apr, [facility] [place] [facility] [address] [id number] [place] [address]- 2753 Apr, [facility] [place] [facility] [address] [id number] [place] [address]- 4348 Apr, [facility] [place] [facility] [address] [id number] [place] [address]- 1544 March, [facility] [place] [facility] [address] [id number] [place] [address]- 1829 March, [facility] [place] [facility] [address] [id number] [place] [address]- 4423 March, [facility] [place] [facility] [address] [id number] [place] [address]- 9577 March, [facility] [place] [facility] [address] [id number] [place] [address]- 4633 Jan, [facility] [place] [facility] [address] [id number] [place] [address]- 2890 Jan, [facility] [place] [facility] [address] [id number] [place] [address]- 0718 Jan, [facility] [place] [facility] [address] [id number] [place] [address]- 1800 Jan, [facility] [place] [facility] [address] [id number] [place] [address]- 5068 Jan, [facility] [place] [facility] [address] [id number] [place] [address]- 8385 Jan, [facility] [place] [facility] [address] [id number] [place] [address]- 3721 Dec, [facility] [place] [facility] [address] [id number] [place] [address]- 5036 Dec, [facility] [address] [id number] [place] [address]- 0236 Dec, [facility] [place] [facility] [address] [id number] [place] [address]- 2546 Dec, [facility] [place] [facility] [address] [id number] [place] [address]- 1646 Nov, [facility] [place] [facility] [address] [id number] [place] [address]- 5386 Nov, [facility] [place] [facility] [address] [id number] [place] [address]- 5331 Nov, [facility] [place] [facility] [address] [id number] [place] [address]- 3691 Nov, [facility] [place] [facility] [address] [id number] [place] [address]- 1334 Oct, [facility] [address] [id number] [place] [address]- 3401 Oct, [facility] [place] [facility] [address] [id number] [place] [address]- 9091 Oct, [facility] [address] [facility] [id number] [place] [address] Oct, [facility] [place] [facility] [address] [id number] [place] [address]- 6918 Oct, [facility] [place] [facility] [address] [id number] [place] [address]- 2543 Oct, [facility] [place] [facility] [address] [id number] [place] [address]- 8576 Oct, [facility] [place] [facility] [address] [id number] [place] [address]- 3336 Oct, [facility] [place] [facility] [address] [id number] [place] [address]- 5464 Sep, [facility] [place] [facility] [address] [id number] [place] [address]- 5098 Sep, [facility] [place] [facility] [address] [id number] [place] [address]- 3431 Jul, [facility] [place] [facility] [address] [id number] [place] [address]- 1195 Jul, [facility] [place] [facility] [address] [id number] [place] [address]- 6790 Jul, [facility] [place] [facility] [address] [id number] [place] [address]- 8811 Jul, [facility] [place] [facility] [address] [id number] [place] [address]- 9900 Jun, [facility] [place] [facility] [address] [id number] [place] [address]- 9290 Jun, [facility] [place] [facility] [address] [id number] [place] [address]- 9054 May, [facility] [place] [facility] [address] [id number] [place] [address]- 3341 Apr, [facility] [place] [facility] [address] [id number] [place] [address]- 5807 Apr, [facility] [place] [facility] [address] [id number], [place] [address]- 5475 Apr, [facility] [place] [facility] [address] [id number], [place] [address]- 7006 March, [facility] [place] [facility] [address] [id number] [place] [address]- 2979 March, [facility] [place] [facility] [address] [id number], [place] [address]- 6146 Feb, [facility] [place] [facility] [address] [id number] [place] [address]- 1859 Jan, [facility] [place] [facility] [address] [id number] [place] [address]- 4395 Jan, [facility] [address] [id number] [place] [address]- 1496 Dec, [facility] [place] [facility] [address] [id number] [place] [address]- 5106 Dec, [facility] [address] [id number] [place] [address]- 0579 Nov, [facility] [place] [facility] [address] [id number] [place] [address]- 6983 Nov, [facility] [address] [id number] [place] [address]- 2137 Nov, [facility] [place] [facility] [address] [id number] [place] [address]- 9867 Oct, [facility] [address] [id number] [place] [address]- 8798 Oct, [facility] [address] [id number] [place] [address]- 5957 Oct, [facility] [place] [facility] [address] [id number] [place] [address]- 4570 Oct, [facility] [address] [id number] [place] [address]- 6501 Sep, [facility] [place] [facility] [address] [id number] [place] [address] 2546 29 Sep, 2012 [facility] [place] [facility] [address] [id number] [place] [address]- 2549 Sep, [facility] [place] [facility] [address] [id number] [place] [address] 2545 Sep, [facility] [place] [facility] [address] [id number] [place] [address]- 2546 15 Sep, 2012 [facility] [place] [facility] [address] [id number] [place] [address] Sep, [facility] [place] [facility] [address] [id number] [place] [address]- 7593 Aug, [facility] [place] [facility] [address] [id number] [place] [address]- 6356 26 Jul, 2012 [facility] [place] [facility] [address] [id number] [place] [address] 2543 19 Jul, 2012 [facility] [place] [facility] [address] [id number] [place] [address]- 3561 18 Jul, 2012 [facility] [address] [id number] [place] [address]- 6736 14 Jul, 2012 [facility] [place] [facility] [address] [id number] [place] [address]- 5652 Jun, [facility] [place] [facility] [address] [id number] [place] [address]- 8329 Jun, [facility] [place] [facility] [address] [id number] [place] [address]- 6617 Jun, [facility] [place] [facility] [address] [id number] [place] [address]- 5189 Jun, [facility] [place] [facility] [address] [id number] [place] [address]- 4444 May, [facility] [place] [facility] [address] [id number] [place] [address]- 0362 Apr, [facility] [place] [facility] [address] [id number] [place] [address] March, [facility] [place] [facility] [address] [id number] [place] [address] March, [facility] [place] [facility] [address] [id number] [place] [address] March, [facility] [place] [facility] [address] [id number] [place] [address] Feb, [facility] [place] [facility] [address] [id number], [place] [address] Feb, [facility] [address] [id number] [place] [address] Jan, [facility] [place] [facility] [address] [id number] [place] [address] Jan, [facility] [address] [id number] [place] [address] Jan, [facility] [place] [facility] [address] [id number] [place] [address] Dec, [facility] [address] [id number] [place] [address] Dec, [facility] [address] [id number] [place] [address] Nov, [facility] [address] [id number] [place] [address] Nov, [facility] [address] [id number] [place] [address] Nov, [facility] [address] [facility] [id number] [place] [address] Nov, [facility] [address] [id number] [place] [address] Nov, [facility] [address] [id number], [place] [address] Oct, [facility] [place] [facility] [address] [id number] [place] [address] Oct, [facility] [place] [facility] [address] [id number] [place] [address] Oct, [facility] [place] [facility] [address] [id number] [place] [address] Oct, [facility] [place] [facility] [address] [facility] [id number] [place] [address] Sep, [facility] [place] [facility] [address] [facility] [id number][place] Sep, [facility] [address] [facility] [id number], [place] [address] Sep, [facility] [address] [id number] [address] Aug, [facility] [address] [facility] [id number][place] Oct, [facility] [address] [id number] [address] Oct, [facility] [address] [id number] [address] Oct, [facility] [address] [facility] [id number], [place] [address] Oct, IMMUNIZATIONS No Known Immunizations SOCIAL HISTORY Never Assessed REASON FOR VISIT Lab (walk-in) PLAN OF CARE VITAL SIGNS MEDICATIONS Unknown Medications RESULTS Name Result Date Reference Range LIPID PANEL 2017-07-31 Cholesterol, Total 147 100-199 Triglycerides 232 0-149 HDL Cholesterol 27 >39 VLDL Cholesterol Fernie 46 5-40 LDL Cholesterol Calc 74 0-99 Comment: CMP 2017-07-31 Glucose, Serum 94 65-99 BUN 9 6-20 Creatinine, Serum 0.74 0.57-1.00 eGFR If NonAfricn Am 113 >59 eGFR If Africn Am 130 >59 BUN/Creatinine Ratio 12 9-23 Sodium, Serum 143 134-144 Potassium, Serum 4.5 3.5-5.2 Chloride, Serum 105 96-106 Carbon Dioxide, Total 21 18-29 Calcium, Serum 9.6 8.7-10.2 Protein, Total, Serum 6.7 6.0-8.5 Albumin, Serum 4.1 3.5-5.5 Globulin, Total 2.6 1.5-4.5 A/G Ratio 1.6 1.2-2.2 Bilirubin, Total 0.4 0.0-1.2 Alkaline Phosphatase, S 102 39-117 AST (SGOT) 26 0-40 ALT (SGPT) 33 0-32 PROCEDURES Procedure Date Ordered Result Body Site LAB NOT BILLED BY [facility] Jul 31, 2017 JAMAAL, ROUTINE* Jul 31, 2017 INSTRUCTIONS MEDICATIONS ADMINISTERED No Known Medications MEDICAL (GENERAL) HISTORY Type Description Date Medical History Guardian requests that we do not explain any treatment to patient!
[2018-03-11] MEDS ORDERED: CLON0.1T PO (16:15)
[2018-03-11] MEDS ORDERED: TRAZ100T92 PO (16:15)
[2018-03-11] MEDS ORDERED: TR1C15 TP (16:15)
[2018-03-11] MEDS ORDERED: ALPR0.254 PO (16:15)
[2018-03-11] MEDS ORDERED: BUSP5TAB59 PO (16:15)
[2018-03-11] MEDS ORDERED: CEPH500C PO (16:15)
[2018-03-11] MEDS ORDERED: LORA10TA7 PO (16:15)
[2018-03-11] MEDS ORDERED: ARPZ20T PO (16:15)
[2018-03-11] MEDS ORDERED: DESM0.1T2 PO (16:15)
[2018-03-11] MEDS ORDERED: SERT100T8 PO (16:15)
[2018-03-11] MEDS ORDERED: FESO4TAB PO (16:15)
[2018-03-11] MEDS ORDERED: GUAN2TAB18 PO (16:15)
[2018-03-11] MEDS ORDERED: MUPI15CR TP (16:41)
--- NOTE | 2018-03-11 16:42 | ED Integumentary General ---
General Chief Complaint: Bite-Animal/Human/Insect Stated Complaint: BITES/POSS STAFF Nursing Triage Note: PT'S CAREGIVER WITH PT, STATES PT HAD A BITE ON HER LT ELBOW LAST WEEK, NOW HAS ONE ON LT KNEE, RT ANKLE, AND 2 ON LT JAW LINE. NO PAIN BUT ITCHES REALLY BAD. History of Present Illness Date Seen by Provider: Mar 11, 2018 Time Seen by Provider: 15:45 Initial Comments 27-year-old female reports for skin lesions to her left elbow, right ankle, and left charlton. She states they become enlarged and them rupture spontaneously with clear drainage. She has no history of MRSA. She has not seen any spiders or other bugs at her work or home. She reports pruritus at the site of the skin lesions. She has none that are inflamed at this time. 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 She has had no change in her skin care products, food, or detergents. She is on multiple medications per [facility], her Abilify has been increased in dose recently but no other changes in her medication Timing/Duration: intermittent Severity: mild Location: face, extremities Possible Cause: no cause identified Associated Symptoms: blisters; No change in skin texture, No hives, No jaundice , No malaise, No numbness, No rash, No swelling/mass/lumps Allergies and Home Medications Allergies Coded Allergies: No Known Drug Allergies (Unverified , 03/11/18) Home Medications Alprazolam 0.25 Mg Tablet, 0.25 MG PO DAILY, (Reported) Aripiprazole 20 Mg Tablet, 20 MG PO DAILY, (Reported) Buspirone HCl 5 Mg Tablet, 5 MG PO DAILY, (Reported) Cephalexin 500 Mg Capsule, 500 MG PO BID, (Reported) Clonidine HCl 0.1 Mg Tablet, 0.1 MG PO BID, (Reported) Desmopressin Acetate 0.1 Mg Tablet, 0.1 MG PO DAILY, (Reported) Fesoterodine Fumarate 4 Mg Tab.sr.24h, 4 MG PO DAILY, (Reported) Guanfacine HCl 2 Mg Tab.er.24h, 2 MG PO DAILY, (Reported) Loratadine 10 Mg Tablet, 10 MG PO DAILY, (Reported) Mupirocin Calcium 15 Gm Cream..g., 15 GM TP TID Prescribed by: GISEL BAPTISTE on 03/11/18 1641 Sertraline HCl 100 Mg Tablet, 100 MG PO DAILY, (Reported) Trazodone HCl 100 Mg Tablet, 100 MG PO DAILY, (Reported) Triamcinolone Acet 15 Gm Cr, 15 GM TP BID, (Reported) Patient Home Medication List Home Medication List Reviewed: Yes Constitutional: no symptoms reported, see HPI Skin: see HPI, lesions, pruritus Past Acbepms-Cntvcg-Hiufvp Hx Past Med/Social Hx: Reviewed Nursing Past Med/Soc Hx Patient Social History Alcohol Use: Denies Use Recreational Drug Use: No Smoking Status: Never a Smoker Recent Foreign Travel: No Contact w/Someone Who Travel: No Recent Infectious Disease Expo: No Recent Hopitalizations: No Seasonal Allergies Seasonal Allergies: Yes Past Medical History Surgeries: No Respiratory: No Cardiac: No Neurological: No : No (DEPO SHOT) Genitourinary: Yes (LOOSES BLADDER A LOT) Chronic Constipation Musculoskeletal: No Endocrine: No HEENT: No Cancer: No Psychosocial: Yes PTSD, Bipolar, Personality Disorder Physical Exam Vital Signs Vital Signs - First Documented 03/11/18 16:01 Temp 96.7 Pulse 94 Resp 20 B/P (MAP) 143/100 (114) Pulse Ox 99 O2 Delivery Room Air Capillary Refill : Less Than 3 Seconds General Appearance: WD/WN, no apparent distress HEENT: normal ENT inspection, TMs normal, pharynx normal Neck: non-tender, full range of motion, supple; No lymphadenopathy (R), No lymphadenopathy (L) Cardiovascular: normal peripheral pulses, regular rate, rhythm Respiratory: chest non-tender, lungs clear, normal breath sounds Gastrointestinal: normal bowel sounds, non tender, soft Neurologic/Psychiatric: no motor/sensory deficits, alert Skin: normal color, cyanosis Skin Problem Location: face (left chin), upper extremities, lower extremities ( left elbow right ankle) Skin Problem Character: erythema (trace), vesicular (has already been released of clear fluid) Lymphatic: no adenopathy Progress/Results/Core Measures Vital Signs/I&O 03/11/18 03/11/18 16:01 16:50 Temp 96.7 96.7 Pulse 94 94 Resp 20 20 B/P (MAP) 143/100 (114) 143/100 (114) Pulse Ox 99 99 O2 Delivery Room Air Room Air Blood Pressure Mean: 114 Departure Impression Primary Impression: Skin lesion Disposition: 01 HOME, SELF-CARE Condition: Stable Departure-Patient Inst. Decision time for Depature: 16:30 Referrals: ALE REYNOSO DO (PCP/Family) Primary Care Physician Patient Instructions: Wound Care (DC) Add. Discharge Instructions: Keep wounds clean and dry. Keep taking Keflex that was previously prescribed Stop using the triamcinolone Clean wounds with peroxide and apply prescribed antibiotic as ordered. Use Dove body wash or Cetaphil for showers. Follow-up with Dr. Arteaga if wounds continue to appear. Return to emergency department for urgent health care needs. All discharge instructions reviewed with patient and/or family. Voiced understanding. Scripts Mupirocin Calcium (Bactroban) 15 Gm Cream..g. 15 GM TP TID, #1 TUBE 0 Refills Prov: GISEL BAPTISTE 03/11/18 Copy Copies To 1: ALE REYNOSO AMY ARNP Mar 11, 2018 16:42
[2018-03-11 16:50] VITALS: BP 143/100
== END 2018-03-11 16:50 | disposition home or self-care (01) ==
LOC: EDUNIT# 15:51 → ER 15:55
DX: L98.9 Disorder of the skin and subcutaneous tissue, unspecified (principal); F43.10 Post-traumatic stress disorder, unspecified; F31.9 Bipolar disorder, unspecified; Z87.19 Personal history of other diseases of the digestive system
CPT/HCPCS: 99283

== ENCOUNTER 2020-04-25 13:09 | Emergency (ER) | payer MEDICAID ==
[~2020-04-25] VITALS: Ht 172 cm; Wt 105.0 kg
[~2020-04-25 13:09] MED LIST: ALPR0.254 PO; ARPZ20T PO; BUSP5TAB59 PO; CEPH500C PO; CLON0.1T PO; DESM0.1T5 PO; FESO4TAB PO; GUAN2TAB18 PO; LORA10TA7 PO; MUPI15CR TP; SERT100T8 PO; TR1C15 TP; TRAZ-227 PO
--- NOTE | 2020-04-25 13:58 | ED Lower Extremity ---
General Chief Complaint: Lower Extremity Stated Complaint: WC INJ Source: patient Exam Limitations: no limitations History of Present Illness Date Seen by Provider: Apr 25, 2020 Time Seen by Provider: 13:55 Initial Comments To ER with reports of a fall that occurred yesterday. 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 She has a bruise over the right knee, pain to right scapula. No other injury Onset: just prior to arrival Severity: moderate Pain/Injury Location: right knee Method of Injury: fell Modifying Factors: Worse With Movement Allergies and Home Medications Allergies Coded Allergies: No Known Drug Allergies (Unverified , 03/11/18) Home Medications Alprazolam 0.25 Mg Tablet, 0.25 MG PO DAILY, (Reported) Aripiprazole 20 Mg Tablet, 20 MG PO DAILY, (Reported) Buspirone HCl 5 Mg Tablet, 5 MG PO DAILY, (Reported) Cephalexin 500 Mg Capsule, 500 MG PO BID, (Reported) Clonidine HCl 0.1 Mg Tablet, 0.1 MG PO BID, (Reported) Desmopressin Acetate 0.1 Mg Tablet, 0.1 MG PO DAILY, (Reported) Fesoterodine Fumarate 4 Mg Tab.sr.24h, 4 MG PO DAILY, (Reported) Guanfacine HCl 2 Mg Tab.er.24h, 2 MG PO DAILY, (Reported) Loratadine 10 Mg Tablet, 10 MG PO DAILY, (Reported) Mupirocin Calcium 15 Gm Cream..g., 15 GM TP TID Prescribed by: GISEL BAPTISTE on 03/11/18 1641 Sertraline HCl 100 Mg Tablet, 100 MG PO DAILY, (Reported) Trazodone HCl 100 Mg Tablet, 100 MG PO DAILY, (Reported) Triamcinolone Acet 15 Gm Cr, 15 GM TP BID, (Reported) Patient Home Medication List Home Medication List Reviewed: Yes Review of Systems Constitutional: see HPI EENTM: see HPI Respiratory: no symptoms reported Cardiovascular: no symptoms reported Genitourinary: no symptoms reported Musculoskeletal: see HPI Skin: no symptoms reported Psychiatric/Neurological: No Symptoms Reported Past Vzyqbrv-Yfbriu-[id number] Hx Patient Social History Recent Hopitalizations: No Seasonal Allergies Seasonal Allergies: Yes Past Medical History Surgeries: No Respiratory: No Cardiac: No Neurological: No Genitourinary: Yes (LOOSES BLADDER A LOT) Chronic Constipation Musculoskeletal: No Endocrine: No HEENT: No Cancer: No Psychosocial: Yes PTSD, Bipolar, Personality Disorder Physical Exam Vital Signs Capillary Refill : Height, Weight, BMI Height: 5'8.00" Weight: 223lbs. oz. 101.741226pk; BMI Method:Stated General Appearance: WD/WN, no apparent distress HEENT: PERRL/EOMI, normal ENT inspection Neck: non-tender, full range of motion Respiratory: no respiratory distress, no accessory muscle use Hips: bilateral hip non-tender, bilateral hip normal inspection, bilateral hip normal range of motion Legs: bilateral leg non-tender, bilateral leg normal inspection, bilateral leg normal range of motion Knees: bilateral knee non-tender, bilateral knee normal inspection, bilateral knee normal range of motion; right knee other (small ecchymosis over the patella on the right but she has full knee extensions of the patella is intact and there is no palpable or visualized knee effusion or abrasion or open wound) Ankles: bilateral ankle non-tender, bilateral ankle normal inspection, bilateral ankle normal range of motion Neurologic/Psychiatric: alert, normal mood/affect Skin: normal color, warm/dry She is able to reach back and touch her right scapula with the right hand, estimated at the scapula is intact and not fracture either. There is no erythema or ecchymosis to this location. Departure Impression Primary Impression: Contusion Qualified Codes: S40.011A - Contusion of right shoulder, initial encounter Additional Impression: Fall Disposition: 01 HOME, SELF-CARE Condition: Stable Departure-Patient Inst. Decision time for Depature: 13:58 Referrals: ALE REYNOSO DO (PCP/Family) Primary Care Physician Patient Instructions: Contusion (DC) DEXTER [employer] Apr 25, 2020 13:58
[2020-04-25 14:02] VITALS: BP 137/91
--- OUTSIDE RECORDS SUMMARY | 2020-04-25 14:44 | XMS REPORT ---
Author Author Ronna Blackmon Doctor Organization [facility] Address Unknown Phone Unavailable Care Team Providers Care Transformation Lead Name Role Phone Migration, Doctor Unavailable Unavailable PROBLEMS Type Condition ICD9-CM Code QCP24-SL Code Onset Dates Condition S tatus SNOMED Code Problem Posttraumatic stress disorder F43.10 Active 21473788 Problem Anxiety F41.9 Active [id number] Problem Bipolar disorder, unspecified F31.9 Active [id number] Problem Attention deficit hyperactivity disorder (ADHD), combi dylon type F90.2 Active [id number] ALLERGIES No Information ENCOUNTERS Encounter Location Date Diagnosis [place] [address] [address] [facility] [id number] [address] [place] [address] Apr, [place] [address] [address] [facility] [id number] [address] [place] [address] Feb, Bipolar disorder, unspecifie d F31.9 [place] [address] [address] [facility] [id number] [address] [place] [address] Feb, Bipolar disorder, unspecifie d F31.9 ; Posttraumatic stress disorder F43.10 ; Attention deficit hyperactivity disorder (ADHD), combined type F90.2 and Anxiety F41.9 [place] [address] [address] [facility] [id number] [address] [place] [phone] Feb, Bipolar disorder, unspecifie d F31.9 [facility] [address] [facility] [id number] [address] [place] [address] Jan, [facility] [address] [facility] [id number] [address] [place] [address] Jan, Bipolar disorder, unspecifie d F31.9 [facility] [address] [facility] [id number] [address] [place] [address] Dec, [place] [address] [address] [facility] [id number] [address] [place] [address] Dec, Bipolar disorder, unspecifie d F31.9 ; Posttraumatic stress disorder F43.10 ; Attention deficit hyperactivity disorder (ADHD), combined type F90.2 and Anxiety F41.9 [facility] [address] [place] [id number] [address] [place] [phone] 18 Dec, 2019 Bipolar disorder, unspecifie d F31.9 [facility] [address] [place] [id number] [place] [phone] 17 Dec, 2019 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 requiring routine preventive dental care K08.9 [facility] [address] [place] [id number] [address] [place] [phone] 05 Dec, 2019 Bipolar disorder, unspecifie d F31.9 [facility] [address] [place] [id number] [address] [place] [address] 13 Nov, 2019 Post-nasal drip R09.82 [facility] [address] [address] 07 Nov, 2019 Bipolar disorder, unspecifie d F31.9 [facility] [address] [address] Oct, [facility] [address] [place] [id number] [address] [place] [address] Oct, Bipolar disorder, unspecifie d F31.9 [facility] [address] [place] [id number] [address] [place] [address] Sep, Bipolar disorder, unspecifie d F31.9 ; Attention deficit hyperactivity disorder (ADHD), combined type F90.2 and Posttraumatic stress disorder F43.10 [facility] [address] [place] [id number] [address] [place] [address] Sep, Bipolar disorder, unspecifie d F31.9 [facility] [address] [facility] [id number] [place] [address] Sep, Dental examination Z01.20 an d Oral health maintenance status requiring routine preventive dental care K08.9 [facility] [address] [id number] [address] [place] [address] Aug, Bipolar disorder, unspecifie d F31.9 [facility] [address] [facility] [id number] [address] [place] [address] Jul, Bipolar disorder, unspecifie d F31.9 [facility] [address] [facility] [id number] [address] [place] [address] Jun, Bipolar disorder, unspecifie d F31.9 ; Posttraumatic stress disorder F43.10 ; Attention deficit hyperactivity disorder (ADHD), combined type F90.2 and Other 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 frame tender (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 Z79.899 [facility] [address] [id number] [address] May, Caries K02.9 [facility] [address] [id number] [address] May, Caries K02.9 [facility] [id number] [place] [address] May, 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 requiring routine preventive dental care K08.9 [facility] [address] [facility] [id number] [address] [place] [address] Apr, Bipolar disorder, unspecifie d F31.9 [facility] [address] [facility] [id number] [address] [place] [address] Apr, [facility] [address] [facility] [id number] [address] [place] [address] Apr, Bipolar disorder, unspecifie d F31.9 [facility] [address] [facility] [id number] [address] [place] [phone] Apr, Bipolar disorder, unspecifie d F31.9 [facility] [address] [facility] [id number] [address] [place] [address] Apr, [facility] [address] [facility] [id number] [address] [place] [address] March, Bipolar disorder, unspecifie d F31.9 ; Attention deficit hyperactivity disorder (ADHD), combined type F90.2 ; Posttraumatic stress disorder F43.10 and Other 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 frame tender (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 Z79.899 OUTREACH [facility] [address] [id number] [address] March, Dental examination Z01.20 and Caries K02 .9 [facility] [address] [id number] [address] [place] [address] Feb, Bipolar disorder, unspecifie d F31.9 [facility] [address] [id number] [address] [place] [address] Jan, Oral health maintenance stat requiring routine preventive dental care K08.9 ; Dental examination Z01.20 and Caries K02.9 [facility] [address] [id number] [address] [place] [address] Jan, Bipolar disorder, unspecifie d F31.9 [facility] [address] [id number] [address] [place] [address] Dec, Bipolar disorder, unspecifie d F31.9 ; Attention deficit hyperactivity disorder (ADHD), combined type F90.2 and Posttraumatic stress disorder F43.10 [facility] [address] [id number] [address] [place] [address] Oct, Sore throat J02.9 [facility] [address] [id number] [address] [place] [phone] Oct, [facility] [address] [id number] [address] [place] [address] Oct, Bipolar disorder, unspecifie d F31.9 [facility] [address] [id number] [address] [place] [id number] Sep, Oral health maintenance stat requiring routine preventive dental care K08.9 [facility] [address] [id number] [address] [place] [address] Sep, Bipolar disorder, unspecifie d F31.9 ; Attention deficit hyperactivity disorder (ADHD), combined type F90.2 and Posttraumatic stress disorder F43.10 [facility] [address] [id number] [address] [place] [address] Aug, Lymphadenopathy of left cerv ical region R59.0 [facility] [address] [facility] [id number] [address] [place] [address] Aug, Encounter for immunization Z 23 [facility] [address] [facility] [id number] [address] [place] [address] Aug, Other care home (current) dr delacruz therapy Z79.899 [facility] [address] [facility] [id number] [address] [place] [address] Jul, Bipolar disorder, unspecifie d F31.9 [facility] [address] [facility] [id number] [address] [place] [phone] Jun, Bipolar disorder, unspecifie d F31.9 [facility] [address] [facility] [id number] [address] [place] [address] Jun, [facility] [address] [facility] [id number] [address] [place] [address] Jun, Bipolar disorder, unspecifie d F31.9 ; Attention deficit hyperactivity disorder (ADHD), combined type F90.2 ; Posttraumatic stress disorder F43.10 and Other care home (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 Z79.899 [facility] [address] [id number] [address] [place] [address] [id number] Jun, Dental examination Z01.20 [facility] [address] [facility] [id number] [address] [place] [phone] May, [facility] [address] [facility] [id number] [address] [place] [address] Apr, Bipolar disorder, unspecifie d F31.9 [facility] [address] [facility] [id number] [address] [place] [address] March, Bipolar disorder, unspecifie d F31.9 ; Attention deficit hyperactivity disorder (ADHD), combined type F90.2 and Posttraumatic stress disorder F43.10 [facility] [address] [facility] [id number] [address] [place] [address] Feb, [facility] [address] [facility] [id number] [address] [place] [address] Feb, Insect bite (nonvenomous), l eft knee, initial encounter S80.262A and Bitten or stung by nonvenomous insect and other nonvenomous arthropods, initial encounter W57.XXXA [facility] [address] [facility] [id number] [address] [place] [address] Feb, Bipolar disorder, unspecifie d F31.9 [facility] [address] [id number] Feb, Dental examination Z01.20 [facility] [address] [place] [id number] [address] [place] [address] Feb, Bipolar disorder, unspecifie d F31.9 ; Attention deficit hyperactivity disorder (ADHD), combined type F90.2 and Posttraumatic stress disorder F43.10 [facility] [address] [place] [id number] [address] [place] [address] [id number] Feb, Dental examination Z01.20 [facility] [address] [place] [id number] [address] [place] [address] Jan, Bipolar disorder, unspecifie d F31.9 [facility] [address] [facility] [id number] [address] [place] [address] Jan, Attention deficit hyperactiv ity disorder (ADHD), combined type F90.2 [facility] [address] [facility] [id number] [address] [place] [address] Dec, Posttraumatic stress disorde r F43.10 [facility] [address] [place] [id number] [address] [place] [address] 12 Dec, 2017 Posttraumatic stress disorde r F43.10 [facility] [address] [id number] [address] [place] [address] [id number] Nov, Dental examination Z01.20 [facility] [address] [id number] [address] [place] [address] [id number] Nov, Encounter for dental exam an d cleaning w/o abnormal findings Z01.20 [facility] [address] [id number] [address] [place] [address] [id number] Nov, Dental examination Z01.20 [facility] [address] [id number] [address] [place] [address] Sep, Bipolar disorder, unspecifie d F31.9 ; Posttraumatic stress disorder F43.10 and Attention deficit hyperactivity disorder (ADHD), combined type F90.2 [facility] [address] [facility] [id number] [address] [place] [address] 09 Aug, 2017 Posttraumatic stress disorde r F43.10 [facility] [address] [facility] [id number] [address] [place] [phone] 15 Jul, 2017 Other 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 frame tender (current) dr ug therapy Z79.899 [facility] [address] [facility] [id number] [address] [place] [address] Jul, Bipolar disorder, unspecifie d F31.9 ; Attention deficit hyperactivity disorder (ADHD), combined type F90.2 and Posttraumatic stress disorder F43.10 [facility] [address] [id number] [address] [place] [address] Jun, Bipolar disorder, unspecifie d F31.9 ; Posttraumatic stress disorder F43.10 ; Attention deficit hyperactivity disorder (ADHD), combined type F90.2 and Other care home (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 Z79.899 [facility] [address] [facility] [id number] [address] [place] [address] March, Bipolar disorder, unspecifie d F31.9 ; Posttraumatic stress disorder F43.10 and Attention deficit hyperactivity disorder (ADHD), combined type F90.2 [facility] [address] [id number] [address] [place] [address], [place] [address] Dec, Bipolar disorder, unspecifie d F31.9 ; Posttraumatic stress disorder F43.10 and Attention deficit hyperactivity disorder (ADHD), combined type F90.2 [facility] [address] [id number] [address] [place] [address], [place] [address] Dec, [facility] [address] [id number] [address] [place] [address], [place] [address] Sep, [facility] [address] [id number] [address] [place] [address], [place] [address] Aug, Bipolar disorder, unspecifie d F31.9 ; Posttraumatic stress disorder F43.10 and Attention deficit hyperactivity disorder (ADHD), combined type F90.2 [facility] [address] [id number] [address] [place] [address], [place] [address] Jun, [facility] [address] [id number] [address] [place] [phone] March, [facility] [address] [id number] [address] [place] [address], [place] [address] Feb, Bipolar disorder, unspecifie d F31.9 ; Attention deficit hyperactivity disorder (ADHD), combined type F90.2 and Posttraumatic stress disorder F43.10 [facility] [address] [id number] [address] [place] [phone] Feb, [facility] [address] [id number] [address] [place] [phone] Feb, [facility] [address] [id number] [address] [place] [address], [place] [address] Feb, [facility] [address] [id number] [address] [place] [address], [place] [address] Jan, [facility] [address] [id number] [address] [place] [address] [id number] Dec, Dental examination Z01.20 [facility] [address] [facility] [id number] [address] [place] [phone] Sep, [facility] [address] [facility] [id number] [address] [place] [address] Sep, Attention deficit hyperactiv ity disorder (ADHD), combined type F90.2 ; Posttraumatic stress disorder F43.10 and Bipolar disorder, unspecified F31.9 [facility] [address] [facility] [id number] [address] [place] [phone] Aug, [facility] [address] [facility] [id number] [address] [place] [phone] Aug, [facility] [address] [facility] [id number] [address] [place] [address] Jul, [facility] [address] [facility] [id number] [address] [place] [address] May, Bipolar disorder, unspecifie d 296.80 ; 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.00 and Posttraumatic stress disorder 309.81 [facility] [address] [facility] [id number] [address] [place] [phone] May, [facility] [address] [facility] [id number] [address] [place] [phone] May, [facility] [address] [facility] [id number] [address] [place] [phone] May, [facility] [address] [facility] [id number] [address] [place] [phone] Apr, [facility] [address] [facility] [id number] [address] [place] [address] Apr, [facility] [address] [facility] [id number] [address] [place] [address] Apr, [facility] [address] [facility] [id number] [address] [place] [phone] March, [facility] [address] [id number] [facility] [place] [address] March, [facility] [address] [id number] [address] [place] [address], [place] [address] March, [facility] [address] [id number] [address] [place] [address], [place] [address] Feb, [facility] [address] [id number] [address] [place] [address], [place] [address] Feb, [facility] [address] [id number] [address] [place] [address], [place] [address] Jan, [facility] [address] [id number] [address] [place] [address], [place] [address] Jan, [facility] [address] [id number] [address] [place] [address], [place] [address] Jan, [facility] [address] [id number] [address] [place] [address], [place] [address] Jan, [facility] [address] [id number] [address] [place] [address], [place] [address] Jan, [facility] [address] [id number] [address] [place] [address], [place] [address] Jan, [facility] [address] [id number] [address] [place] [address], [place] [address] Jan, [facility] [address] [id number] [address] [place] [address], [place] [address] Jan, [facility] [address] [id number] [address] [place] [address], [place] [address] Jan, [facility] [address] [id number] [address] [place] [address], [place] [address] Jan, [facility] [address] [id number] [address] [place] [address], [place] [address] Dec, [facility] [address] [id number] [address] [place] [address], [place] [address] Dec, [facility] [address] [id number] [address] [place] [address], [place] [address] Dec, [facility] [address] [id number] [address] [place] [address], [place] [address] Dec, [facility] [address] [id number] [address] [place] [address], [place] [address] Oct, [facility] [address] [id number] [address] [place] [address], [place] [address] Oct, [facility] [address] [id number] [address] [place] [address], [place] [address] Oct, [facility] [address] [id number] [address] [place] [address], [place] [address] Oct, [facility] [address] [id number] [address] [place] [address], [place] [address] Oct, [facility] [address] [id number] [address] [place] [address], [place] [address] Oct, [facility] [address] [id number] [address] [place] [address], [place] [address] Oct, [facility] [address] [id number] [address] [place] [address], [place] [address] Sep, [facility] [address] [id number] [address] [place] [address], [place] [address] Sep, [facility] [address] [id number] [address] [place] [address], [place] [address] Sep, [facility] [address] [id number] [address] [place] [address], [place] [address] Sep, [facility] [address] [id number] [address] [place] [address], [place] [address] Sep, [facility] [address] [id number] [address] [place] [address], [place] [address] Sep, [facility] [address] [id number] [address] [place] [address], [place] [address] Sep, [facility] [address] [id number] [address] [place] [address], [place] [address] Sep, [facility] [address] [id number] [address] [place] [address], [place] [address] Aug, [facility] [address] [id number] [address] [place] [address], [place] [address] Aug, [facility] [address] [id number] [address] [place] [address], [place] [address] Aug, [facility] [address] [id number] [address] [place] [address], [place] [address] Aug, [facility] [address] [id number] [address] [place] [address], [place] [address] Jul, [facility] [address] [id number] [address] [place] [address], [place] [address] Jul, [facility] [address] [id number] [address] [place] [address], [place] [address] Jul, [facility] [address] [id number] [address] [place] [address], [place] [address] Jul, [facility] [address] [id number] [address] [place] [address], [place] [address] Jun, [facility] [address] [id number] [address] [place] [address], [place] [address] Jun, [facility] [address] [id number] [address] [place] [address], [place] [address] Jun, [facility] [address] [id number] [address] [place] [address], [place] [address] Jun, [facility] [address] [id number] [address] [place] [address], [place] [address] May, [facility] [address] [id number] [address] [place] [address], [place] [address] May, [facility] [address] [id number] [address] [place] [address], [place] [address] May, [facility] [address] [id number] [address] [place] [address], [place] [address] May, [facility] [address] [id number] [address] [place] [address], [place] [address] Apr, [facility] [address] [id number] [address] [place] [address], [place] [address] Apr, [facility] [address] [id number] [address] [place] [address], [place] [address] Apr, [facility] [address] [id number] [address] [place] [address], [place] [address] Apr, [facility] [address] [id number] [address] [place] [address], [place] [address] Apr, [facility] [address] [id number] [address] [place] [address], [place] [address] Apr, [facility] [address] [id number] [address] [place] [address], [place] [address] Apr, [facility] [address] [id number] [address] [place] [address], [place] [address] Apr, [facility] [address] [id number] [address] [place] [address], [place] [address] Apr, [facility] [address] [id number] [address] [place] [address], [place] [address] Apr, [facility] [address] [id number] [address] [place] [address], [place] [address] Apr, [facility] [address] [id number] [address] [place] [address], [place] [address] Apr, [facility] [address] [id number] [address] [place] [address], [place] [address] Apr, [facility] [address] [id number] [address] [place] [address], [place] [address] March, [facility] [address] [id number] [address] [place] [address], [place] [address] March, [facility] [address] [id number] [address] [place] [address], [place] [address] March, [facility] [address] [id number] [address] [place] [address], [place] [address] March, [facility] [address] [id number] [address] [place] [address], [place] [address] Jan, [facility] [address] [id number] [address] [place] [address], [place] [address] Jan, [facility] [address] [id number] [address] [place] [address], [place] [address] Jan, [facility] [address] [id number] [address] [place] [address], [place] [address] Jan, [facility] [address] [id number] [address] [place] [address], [place] [address] Jan, [facility] [address] [id number] [address] [place] [address], [place] [address] Jan, [facility] [address] [id number] [address] [place] [address], [place] [address] Dec, [facility] [address] [id number] [address] [place] [address], [place] [address] Dec, [facility] [address] [id number] [address] [place] [address], [place] [address] Dec, [facility] [address] [id number] [address] [place] [address], [place] [address] Dec, [facility] [address] [id number] [address] [place] [address], [place] [address] Nov, [facility] [address] [id number] [address] [place] [address], [place] [address] Nov, [facility] [address] [id number] [address] [place] [address], [place] [address] Nov, [facility] [address] [id number] [address] [place] [address], [place] [address] Nov, [facility] [address] [id number] [address] [place] [address], [place] [address] Oct, [facility] [address] [id number] [address] [place] [address], [place] [address] Oct, [facility] [address] [id number] [address] [place] [address], [place] [address] Oct, [facility] [address] [id number] [address] [place] [address], [place] [address] Oct, [facility] [address] [id number] [address] [place] [address], [place] [address] Oct, [facility] [address] [id number] [address] [place] [address], [place] [address] Oct, [facility] [address] [id number] [address] [place] [address], [place] [address] Oct, [facility] [address] [id number] [address] [place] [address], [place] [address] Oct, [facility] [address] [id number] [address] [place] [address], [place] [address] Sep, [facility] [address] [id number] [address] [place] [address], [place] [address] Sep, [facility] [address] [id number] [address] [place] [address], [place] [address] Jul, [facility] [address] [id number] [address] [place] [address], [place] [address] 12 Jul, 2013 [facility] [address] [id number] [address] [place] [address], [place] [address] 09 Jul, 2013 [facility] [address] [id number] [address] [place] [address], [place] [address] Jul, [facility] [address] [id number] [address] [place] [address], [place] [address] Jun, [facility] [address] [id number] [address] [place] [address], [place] [address] Jun, [facility] [address] [id number] [address] [place] [address], [place] [address] May, [facility] [address] [id number] [address] [place] [address], [place] [address] Apr, [facility] [address] [id number] [address] [place] [address], [place] [address] Apr, [facility] [address] [id number] [address] [place] [address], [place] [address] Apr, [facility] [address] [id number] [address] [place] [address], [place] [address] March, [facility] [address] [id number] [address] [place] [address], [place] [address] March, [facility] [address] [id number] [address] [place] [address], [place] [address] Feb, [facility] [address] [id number] [address] [place] [address], [place] [address] Jan, [facility] [address] [id number] [address] [place] [address], [place] [address] Jan, [facility] [address] [id number] [address] [place] [address], [place] [address] Dec, [facility] [address] [id number] [address] [place] [address], [place] [address] Dec, [facility] [address] [id number] [address] [place] [address], [place] [address] Nov, [facility] [address] [id number] [address] [place] [address], [place] [address] Nov, [facility] [address] [id number] [address] [place] [address], [place] [address] Nov, [facility] [address] [id number] [address] [place] [address], [place] [address] 18 Oct, 2012 [facility] [address] [id number] [address] [place] [address], [place] [address] 18 Oct, 2012 [facility] [address] [id number] [address] [place] [address], [place] [address] Oct, [facility] [address] [id number] [address] [place] [address], [place] [address] Oct, [facility] [address] [id number] [address] [place] [address], [place] [address] Sep, [facility] [address] [id number] [address] [place] [address], [place] [address] 29 Sep, 2012 [facility] [address] [id number] [address] [place] [address], [place] [address] Sep, [facility] [address] [id number] [address] [place] [address], [place] [address] 23 Sep, 2012 [facility] [address] [id number] [address] [place] [address], [place] [address] 15 Sep, 2012 [facility] [address] [id number] [address] [place] [address], [place] [address] 15 Sep, 2012 [facility] [address] [id number] [address] [place] [address], [place] [address] 02 Aug, 2012 [facility] [address] [id number] [address] [place] [address], [place] [address] 26 Jul, 2012 [facility] [address] [id number] [address] [place] [address], [place] [address] 19 Jul, 2012 [facility] [address] [id number] [address] [place] [address], [place] [address] 18 Jul, 2012 [facility] [address] [id number] [address] [place] [address], [place] [address] Jul, [facility] [address] [id number] [address] [place] [address], [place] [address] Jun, [facility] [address] [id number] [address] [place] [address], [place] [address] Jun, [facility] [address] [id number] [address] [place] [address], [place] [address] Jun, [facility] [address] [id number] [address] [place] [address], [place] [address] Jun, [facility] [address] [id number] [address] [place] [address], [place] [address] May, [facility] [address] [id number] [address] [place] [address], [place] [address] Apr, [facility] [address] [id number] [address] [place] [address], [place] [address] March, [facility] [address] [id number] [address] [place] [address], [place] [address] March, [facility] [address] [id number] [address] [place] [address], [place] [address] March, [facility] [address] [id number] [address] [place] [address], [place] [address] Feb, [facility] [address] [id number] [address] [place] [address], [place] [address] Feb, [facility] [address] [id number] [address] [place] [address], [place] [address] Jan, [facility] [address] [id number] [address] [place] [address], [place] [address] Jan, [facility] [address] [id number] [address] [place] [address], [place] [address] Jan, [facility] [address] [id number] [address] [place] [address], [place] [address] Dec, [facility] [address] [id number] [address] [place] [address] 16 Dec, 2011 [facility] [address] [id number] [address] [place] [address], [place] [address] Nov, [facility] [address] [id number] [address] [place] [address], [place] [address] Nov, [facility] [address] [id number] [address] [place] [address], [place] [address] Nov, [facility] [address] [id number] [address] [place] [address], [place] [address] Nov, [facility] [address] [id number] [address] [place] [address], [place] [address] Nov, [facility] [address] [id number] [address] [place] [address], [place] [address] Oct, [facility] [address] [id number] [address] [place] [address], [place] [address] Oct, [facility] [address] [id number] [address] [place] [address], [place] [address] 05 Oct, 2011 [facility] [address] [id number] [address] [place] [address], [place] [address] 02 Oct, 2011 [facility] [address] [id number] [address] [place] [address], [place] [address] Sep, [facility] [address] [id number] [address] [place] [address], [place] [address] Sep, [facility] [address] [id number] [address] [place] [address], [place] [address] 17 Sep, 2011 [facility] [address] [id number] [address] [place] [address], [place] [address] 13 Aug, 2011 [facility] [address] [id number] [address] [place] [address], [place] [address] 31 Oct, 2010 [facility] [address] [id number] [address] [place] [address], [place] [address] 08 Oct, 2010 [facility] [address] [facility] [id number] [address] [address] Oct, [facility] [address] [facility] [id number] [address] [place] [address] Oct, IMMUNIZATIONS No Known Immunizations SOCIAL HISTORY Never Assessed REASON FOR VISIT PLAN OF CARE VITAL SIGNS MEDICATIONS Unknown Medications RESULTS No Results PROCEDURES No Known procedures INSTRUCTIONS MEDICATIONS ADMINISTERED No Known Medications MEDICAL (GENERAL) HISTORY Type Description Date Medical History Guardian requests that we do not explain any treatment to patient! Medical History Posttraumatic stress disorder Medical History Bipolar disorder, unspecified Medical History Attention deficit disorder o f childhood without mention of hyperactivity Surgical History No Surgical history information
--- OUTSIDE RECORDS SUMMARY | 2020-04-25 14:45 | XMS REPORT ---
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 Name Role Phone Migration, Doctor Unavailable Unavailable PROBLEMS Type Condition ICD9-CM Code QRH52-EM Code Onset Dates Condition S tatus SNOMED Code Problem Posttraumatic stress disorder F43.10 Active 05906648 Problem Anxiety F41.9 Active 88477623 Problem Bipolar disorder, unspecified F31.9 Active [id number] Problem Attention deficit hyperactivity disorder (ADHD), combi dylon type F90.2 Active [id number] ALLERGIES No Information ENCOUNTERS Encounter Location Date Diagnosis [place] [address] [facility] [id number] [address] [place] [phone] Apr, [place] [address] [facility] [id number] [address] [place] [phone] Feb, Bipolar disorder, unspecifie d F31.9 [place] [address] [address] [facility] [id number] [address] [place] [id number] Feb, Bipolar disorder, unspecifie d F31.9 ; Posttraumatic stress disorder F43.10 ; Attention deficit hyperactivity disorder (ADHD), combined type F90.2 and Anxiety F41.9 [place] [address] [facility] [id number] [address] [place] [phone] Feb, Bipolar disorder, unspecifie d F31.9 [facility] [address] [facility] [id number] [address] [place] [phone] Jan, [facility] [address] [facility] [id number] [address] [place] [phone] Jan, Bipolar disorder, unspecifie d F31.9 [facility] [address] [facility] [id number] [address] [place] [phone] Dec, [place] [address] [facility] [id number] [address] [place] [phone] Dec, Bipolar disorder, unspecifie d F31.9 ; Posttraumatic stress disorder F43.10 ; Attention deficit hyperactivity disorder (ADHD), combined type F90.2 and Anxiety F41.9 [facility] [address] [place] [id number] [address] [place] [id number] 18 Dec, 2019 Bipolar disorder, unspecifie d F31.9 [facility] [address] [place] [id number] [place] [phone] 17 Dec, 2019 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 requiring routine preventive dental care K08.9 [facility] [address] [place] [id number] [address] [place] [phone] 05 Dec, 2019 Bipolar disorder, unspecifie d F31.9 [facility] [address] [place] [id number] [address] [place] [phone] 13 Nov, 2019 Post-nasal drip R09.82 [facility] [address] [address] 07 Nov, 2019 Bipolar disorder, unspecifie d F31.9 [facility] [address] [address] Oct, [facility] [address] [place] [id number] [address] [place] [phone] Oct, Bipolar disorder, unspecifie d F31.9 [facility] [address] [place] [id number] [address] [place] [phone] Sep, Bipolar disorder, unspecifie d F31.9 ; Attention deficit hyperactivity disorder (ADHD), combined type F90.2 and Posttraumatic stress disorder F43.10 [facility] [address] [place] [id number] [address] [place] [phone] Sep, Bipolar disorder, unspecifie d F31.9 [facility] [address] [facility] [id number] [place] [phone] Sep, Dental examination Z01.20 an d Oral health maintenance status requiring routine preventive dental care K08.9 [facility] [address] [id number] [address] [place] [phone] Aug, Bipolar disorder, unspecifie d F31.9 [facility] [address] [facility] [id number] [address] [place] [id number] Jul, Bipolar disorder, unspecifie d F31.9 [facility] [address] [facility] [id number] [address] [place] [id number] Jun, Bipolar disorder, unspecifie d F31.9 ; Posttraumatic stress disorder F43.10 ; Attention deficit hyperactivity disorder (ADHD), combined type F90.2 and Other 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 (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 Z79.899 [facility] [address] [id number] [address] May, Caries K02.9 [facility] [address] [id number], [place] [address] May, Caries K02.9 [facility] [id number] [place] [phone] May, 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 requiring routine preventive dental care K08.9 [facility] [address] [facility] [id number] [address] [place] [phone] Apr, Bipolar disorder, unspecifie d F31.9 [facility] [address] [facility] [id number] [address] [place] [phone] Apr, [facility] [address] [facility] [id number] [address] [place] [phone] Apr, Bipolar disorder, unspecifie d F31.9 [facility] [address] [facility] [id number] [address] [place] [phone] Apr, Bipolar disorder, unspecifie d F31.9 [facility] [address] [facility] [id number] [address] [place] [phone] Apr, [facility] [address] [facility] [id number] [address] [place] [id number] March, Bipolar disorder, unspecifie d F31.9 ; Attention deficit hyperactivity disorder (ADHD), combined type F90.2 ; Posttraumatic stress disorder F43.10 and Other 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 (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 Z79.[address] [facility] [address] [id number], [place] [address] March, Dental examination Z01.20 and Caries K02 .9 [facility] [address] [id number] [address] [place] [phone] Feb, Bipolar disorder, unspecifie d F31.9 [facility] [address] [id number] [address] [place] [phone] Jan, Oral health maintenance stat requiring routine preventive dental care K08.9 ; Dental examination Z01.20 and Caries K02.9 [facility] [address] [id number] [address] [place] [phone] Jan, Bipolar disorder, unspecifie d F31.9 [facility] [address] [id number] [address] [place] [phone] Dec, Bipolar disorder, unspecifie d F31.9 ; Attention deficit hyperactivity disorder (ADHD), combined type F90.2 and Posttraumatic stress disorder F43.10 [facility] [address] [id number] [address] [place] [phone] Oct, Sore throat J02.9 [facility] [address] [id number] [address] [place] [phone] Oct, [facility] [address] [id number] [address] [place] [phone] Oct, Bipolar disorder, unspecifie d F31.9 [facility] [address] [id number] [address] [place] [address] [id number] Sep, Oral health maintenance stat requiring routine preventive dental care K08.9 [facility] [address] [id number] [address] [place] [phone] Sep, Bipolar disorder, unspecifie d F31.9 ; Attention deficit hyperactivity disorder (ADHD), combined type F90.2 and Posttraumatic stress disorder F43.10 [facility] [address] [id number] [address] [place] [phone] Aug, Lymphadenopathy of left cerv ical region R59.0 [facility] [address] [facility] [id number] [address] [place] [phone] Aug, Encounter for immunization Z 23 [facility] [address] [facility] [id number] [address] [place] [phone] Aug, Other snf (current) dr delacruz therapy Z79.899 [facility] [address] [facility] [id number] [address] [place] [phone] Jul, Bipolar disorder, unspecifie d F31.9 [facility] [address] [facility] [id number] [address] [place] [id number] Jun, Bipolar disorder, unspecifie d F31.9 [facility] [address] [facility] [id number] [address] [place] [phone] Jun, [facility] [address] [facility] [id number] [address] [place] [phone] Jun, Bipolar disorder, unspecifie d F31.9 ; Attention deficit hyperactivity disorder (ADHD), combined type F90.2 ; Posttraumatic stress disorder F43.10 and Other snf (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 Z79.899 [facility] [address] [id number] [address] [place] [phone] Jun, Dental examination Z01.20 [facility] [address] [facility] [id number] [address] [place] [phone] May, [facility] [address] [facility] [id number] [address] [place] [phone] Apr, Bipolar disorder, unspecifie d F31.9 [facility] [address] [facility] [id number] [address] [place] [address] March, Bipolar disorder, unspecifie d F31.9 ; Attention deficit hyperactivity disorder (ADHD), combined type F90.2 and Posttraumatic stress disorder F43.10 [facility] [address] [facility] [id number] [address] [place] [phone] Feb, [facility] [address] [facility] [id number] [address] [place] [phone] Feb, Insect bite (nonvenomous), l eft knee, initial encounter S80.262A and Bitten or stung by nonvenomous insect and other nonvenomous arthropods, initial encounter W57.XXXA [facility] [address] [facility] [id number] [address] [place] [address] Feb, Bipolar disorder, unspecifie d F31.9 [facility] [address] [id number] Feb, Dental examination Z01.20 [facility] [address] [place] [id number] [address] [place] [phone] Feb, Bipolar disorder, unspecifie d F31.9 ; Attention deficit hyperactivity disorder (ADHD), combined type F90.2 and Posttraumatic stress disorder F43.10 [facility] [address] [place] [id number] [address] [place] [address] [id number] Feb, Dental examination Z01.20 [facility] [address] [place] [id number] [address] [place] [phone] Jan, Bipolar disorder, unspecifie d F31.9 [facility] [address] [facility] [id number] [address] [place] [phone] Jan, Attention deficit hyperactiv ity disorder (ADHD), combined type F90.2 [facility] [address] [facility] [id number] [address] [place] [phone] Dec, Posttraumatic stress disorde r F43.10 [facility] [address] [place] [id number] [address] [place] [phone] 12 Dec, 2017 Posttraumatic stress disorde r F43.10 [facility] [address] [id number] [address] [place] [id number] Nov, Dental examination Z01.20 [facility] [address] [id number] [address] [place] [address] [id number] Nov, Encounter for dental exam an d cleaning w/o abnormal findings Z01.20 [facility] [address] [id number] [address] [place] [id number] Nov, Dental examination Z01.20 [facility] [address] [id number] [address] [place] [phone] Sep, Bipolar disorder, unspecifie d F31.9 ; Posttraumatic stress disorder F43.10 and Attention deficit hyperactivity disorder (ADHD), combined type F90.2 [facility] [address] [facility] [id number] [address] [place] [phone] 09 Aug, 2017 Posttraumatic stress disorde r F43.10 [facility] [address] [facility] [id number] [address] [place] [id number] 15 Jul, 2017 Other 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 (current) dr ug therapy Z79.899 [facility] [address] [facility] [id number] [address] [place] [phone] Jul, Bipolar disorder, unspecifie d F31.9 ; Attention deficit hyperactivity disorder (ADHD), combined type F90.2 and Posttraumatic stress disorder F43.10 [facility] [address] [id number] [address] [place] [phone] Jun, Bipolar disorder, unspecifie d F31.9 ; Posttraumatic stress disorder F43.10 ; Attention deficit hyperactivity disorder (ADHD), combined type F90.2 and Other snf (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 Z79.899 [facility] [address] [facility] [id number] [address] [place] [phone] March, Bipolar disorder, unspecifie d F31.9 ; Posttraumatic stress disorder F43.10 and Attention deficit hyperactivity disorder (ADHD), combined type F90.2 [facility] [address] [id number] [address] [place] [address], [place] [address] Dec, Bipolar disorder, unspecifie d F31.9 ; Posttraumatic stress disorder F43.10 and Attention deficit hyperactivity disorder (ADHD), combined type F90.2 [facility] [address] [id number] [address] [place] [address], [place] [address] Dec, [facility] [address] [id number] [address] [place] [address], [place] [address] Sep, [facility] [address] [id number] [address] [place] [address], [place] [address] Aug, Bipolar disorder, unspecifie d F31.9 ; Posttraumatic stress disorder F43.10 and Attention deficit hyperactivity disorder (ADHD), combined type F90.2 [facility] [address] [id number] [address] [place] [address], [place] [address] Jun, [facility] [address] [id number] [address] [place] [phone] March, [facility] [address] [id number] [address] [place] [address], [place] [address] Feb, Bipolar disorder, unspecifie d F31.9 ; Attention deficit hyperactivity disorder (ADHD), combined type F90.2 and Posttraumatic stress disorder F43.10 [facility] [address] [id number] [address] [place] [phone] Feb, [facility] [address] [id number] [address] [place] [phone] Feb, [facility] [address] [id number] [address] [place] [address], [place] [address] Feb, [facility] [address] [id number] [address] [place] [address], [place] [address] Jan, [facility] [address] [id number] [address] [place] [address] [id number] Dec, Dental examination Z01.20 [facility] [address] [facility] [id number] [address] [place] [phone] Sep, [facility] [address] [facility] [id number] [address] [place] [phone] Sep, Attention deficit hyperactiv ity disorder (ADHD), combined type F90.2 ; Posttraumatic stress disorder F43.10 and Bipolar disorder, unspecified F31.9 [facility] [address] [facility] [id number] [address] [place] [phone] Aug, [facility] [address] [facility] [id number] [address] [place] [phone] Aug, [facility] [address] [facility] [id number] [address] [place] [phone] Jul, [facility] [address] [facility] [id number] [address] [place] [phone] May, Bipolar disorder, unspecifie d 296.80 ; 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.00 and Posttraumatic stress disorder 309.81 [facility] [address] [facility] [id number] [address] [place] [phone] May, [facility] [address] [facility] [id number] [address] [place] [phone] May, [facility] [address] [facility] [id number] [address] [place] [phone] May, [facility] [address] [facility] [id number] [address] [place] [phone] Apr, [facility] [address] [facility] [id number] [address] [place] [phone] Apr, [facility] [address] [facility] [id number] [address] [place] [phone] Apr, [facility] [address] [facility] [id number] [address] [place] [phone] March, [facility] [address] [id number] [facility] [place] [address] March, [facility] [address] [id number] [address] [place] [address], [place] [address] March, [facility] [address] [id number] [address] [place] [address], [place] [address] Feb, [facility] [address] [id number] [address] [place] [address], [place] [address] Feb, [facility] [address] [id number] [address] [place] [address], [place] [address] Jan, [facility] [address] [id number] [address] [place] [address], [place] [address] Jan, [facility] [address] [id number] [address] [place] [address], [place] [address] Jan, [facility] [address] [id number] [address] [place] [address], [place] [address] Jan, [facility] [address] [id number] [address] [place] [address], [place] [address] Jan, [facility] [address] [id number] [address] [place] [address], [place] [address] Jan, [facility] [address] [id number] [address] [place] [address], [place] [address] Jan, [facility] [address] [id number] [address] [place] [address], [place] [address] Jan, [facility] [address] [id number] [address] [place] [address], [place] [id number] Jan, [facility] [address] [id number] [address] [place] [address], [place] [address] Jan, [facility] [address] [id number] [address] [place] [address], [place] [address] Dec, [facility] [address] [id number] [address] [place] [address], [place] [address] Dec, [facility] [address] [id number] [address] [place] [address], [place] [address] Dec, [facility] [address] [id number] [address] [place] [address], [place] [address] Dec, [facility] [address] [id number] [address] [place] [address], [place] [address] Oct, [facility] [address] [id number] [address] [place] [address], [place] [address] Oct, [facility] [address] [id number] [address] [place] [address], [place] [address] Oct, [facility] [address] [id number] [address] [place] [address], [place] [address] Oct, [facility] [address] [id number] [address] [place] [address], [place] [address] Oct, [facility] [address] [id number] [address] [place] [address], [place] [address] Oct, [facility] [address] [id number] [address] [place] [address], [place] [address] Oct, [facility] [address] [id number] [address] [place] [address], [place] [address] Sep, [facility] [address] [id number] [address] [place] [address], [place] [address] Sep, [facility] [address] [id number] [address] [place] [address], [place] [address] Sep, [facility] [address] [id number] [address] [place] [address], [place] [address] Sep, [facility] [address] [id number] [address] [place] [address], [place] [address] Sep, [facility] [address] [id number] [address] [place] [address], [place] [address] Sep, [facility] [address] [id number] [address] [place] [address], [place] [address] Sep, [facility] [address] [id number] [address] [place] [address], [place] [address] Sep, [facility] [address] [id number] [address] [place] [address], [place] [address] Aug, [facility] [address] [id number] [address] [place] [address], [place] [id number] Aug, [facility] [address] [id number] [address] [place] [address], [place] [id number] Aug, [facility] [address] [id number] [address] [place] [address], [place] [id number] Aug, [facility] [address] [id number] [address] [place] [address], [place] [id number] Jul, [facility] [address] [id number] [address] [place] [address], [place] [id number] Jul, [facility] [address] [id number] [address] [place] [address], [place] [id number] Jul, [facility] [address] [id number] [address] [place] [address], [place] [id number] Jul, [facility] [address] [id number] [address] [place] [address], [place] [id number] Jun, [facility] [address] [id number] [address] [place] [address], [place] [id number] Jun, [facility] [address] [id number] [address] [place] [address], [place] [id number] Jun, [facility] [address] [id number] [address] [place] [address], [place] [id number] Jun, [facility] [address] [id number] [address] [place] [address], [place] [id number] May, [facility] [address] [id number] [address] [place] [address], [place] [id number] May, [facility] [address] [id number] [address] [place] [address], [place] [id number] May, [facility] [address] [id number] [address] [place] [address], [place] [id number] May, [facility] [address] [id number] [address] [place] [address], [place] [id number] Apr, [facility] [address] [id number] [address] [place] [address], [place] [id number] Apr, [facility] [address] [id number] [address] [place] [address], [place] [id number] Apr, [facility] [address] [id number] [address] [place] [address], [place] [id number] Apr, [facility] [address] [id number] [address] [place] [address], [place] [id number] Apr, [facility] [address] [id number] [address] [place] [address], [place] [id number] Apr, [facility] [address] [id number] [address] [place] [address], [place] [id number] Apr, [facility] [address] [id number] [address] [place] [address], [place] [id number] Apr, [facility] [address] [id number] [address] [place] [address], [place] [id number] Apr, [facility] [address] [id number] [address] [place] [address], [place] [id number] Apr, [facility] [address] [id number] [address] [place] [address], [place] [address] Apr, [facility] [address] [id number] [address] [place] [address], [place] [address] Apr, [facility] [address] [id number] [address] [place] [address], [place] [address] Apr, [facility] [address] [id number] [address] [place] [address], [place] [address] March, [facility] [address] [id number] [address] [place] [address], [place] [address] March, [facility] [address] [id number] [address] [place] [address], [place] [address] March, [facility] [address] [id number] [address] [place] [address], [place] [address] March, [facility] [address] [id number] [address] [place] [address], [place] [address] Jan, [facility] [address] [id number] [address] [place] [address], [place] [address] Jan, [facility] [address] [id number] [address] [place] [address], [place] [address] Jan, [facility] [address] [id number] [address] [place] [address], [place] [address] Jan, [facility] [address] [id number] [address] [place] [address], [place] [address] Jan, [facility] [address] [id number] [address] [place] [address], [place] [address] Jan, [facility] [address] [id number] [address] [place] [address], [place] [address] Dec, [facility] [address] [id number] [address] [place] [address], [place] [address] Dec, [facility] [address] [id number] [address] [place] [address], [place] [address] Dec, [facility] [address] [id number] [address] [place] [address], [place] [address] Dec, [facility] [address] [id number] [address] [place] [address], [place] [address] Nov, [facility] [address] [id number] [address] [place] [address], [place] [address] Nov, [facility] [address] [id number] [address] [place] [address], [place] [address] Nov, [facility] [address] [id number] [address] [place] [address], [place] [address] Nov, [facility] [address] [id number] [address] [place] [address], [place] [phone] Oct, [facility] [address] [id number] [address] [place] [address], [place] [address] Oct, [facility] [address] [id number] [address] [place] [address], [place] [address] Oct, [facility] [address] [id number] [address] [place] [address], [place] [address] Oct, [facility] [address] [id number] [address] [place] [address], [place] [address] Oct, [facility] [address] [id number] [address] [place] [address], [place] [address] Oct, [facility] [address] [id number] [address] [place] [address], [place] [address] Oct, [facility] [address] [id number] [address] [place] [address], [place] [id number] Oct, [facility] [address] [id number] [address] [place] [address], [place] [address] Sep, [facility] [address] [id number] [address] [place] [address], [place] [address] Sep, [facility] [address] [id number] [address] [place] [address], [place] [address] Jul, [facility] [address] [id number] [address] [place] [address], [place] [address] 12 Jul, 2013 [facility] [address] [id number] [address] [place] [address], [place] [id number] 09 Jul, 2013 [facility] [address] [id number] [address] [place] [address], [place] [address] Jul, [facility] [address] [id number] [address] [place] [address], [place] [address] Jun, [facility] [address] [id number] [address] [place] [address], [place] [address] Jun, [facility] [address] [id number] [address] [place] [address], [place] [address] May, [facility] [address] [id number] [address] [place] [address], [place] [address] Apr, [facility] [address] [id number] [address] [place] [address], [place] [address] Apr, [facility] [address] [id number] [address] [place] [address], [place] [address] Apr, [facility] [address] [id number] [address] [place] [address], [place] [address] March, [facility] [address] [id number] [address] [place] [address], [place] [address] March, [facility] [address] [id number] [address] [place] [address], [place] [address] Feb, [facility] [address] [id number] [address] [place] [address], [place] [address] Jan, [facility] [address] [id number] [address] [place] [address], [place] [address] Jan, [facility] [address] [id number] [address] [place] [address], [place] [address] Dec, [facility] [address] [id number] [address] [place] [address], [place] [address] Dec, [facility] [address] [id number] [address] [place] [address], [place] [address] Nov, [facility] [address] [id number] [address] [place] [address], [place] [address] Nov, [facility] [address] [id number] [address] [place] [address], [place] [address] Nov, [facility] [address] [id number] [address] [place] [address], [place] [id number] 18 Oct, 2012 [facility] [address] [id number] [address] [place] [address], [place] [id number] 18 Oct, 2012 [facility] [address] [id number] [address] [place] [address], [place] [address] Oct, [facility] [address] [id number] [address] [place] [address], [place] [address] Oct, [facility] [address] [id number] [address] [place] [address], [place] [address] Sep, [facility] [address] [id number] [address] [place] [address], [place] [address] 29 Sep, 2012 [facility] [address] [id number] [address] [place] [address], [place] [address] Sep, [facility] [address] [id number] [address] [place] [address], [place] [address] 23 Sep, 2012 [facility] [address] [id number] [address] [place] [address], [place] [address] 15 Sep, 2012 [facility] [address] [id number] [address] [place] [address], [place] [address] 15 Sep, 2012 [facility] [address] [id number] [address] [place] [address], [place] [address] 02 Aug, 2012 [facility] [address] [id number] [address] [place] [address], [place] [address] 26 Jul, 2012 [facility] [address] [id number] [address] [place] [address], [place] [id number] 19 Jul, 2012 [facility] [address] [id number] [address] [place] [address], [place] [address] 18 Jul, 2012 [facility] [address] [id number] [address] [place] [address], [place] [address] Jul, [facility] [address] [id number] [address] [place] [address], [place] [address] Jun, [facility] [address] [id number] [address] [place] [address], [place] [address] Jun, [facility] [address] [id number] [address] [place] [address], [place] [address] Jun, [facility] [address] [id number] [address] [place] [address], [place] [address] Jun, [facility] [address] [id number] [address] [place] [address], [place] [address] May, [facility] [address] [id number] [address] [place] [address], [place] [address] Apr, [facility] [address] [id number] [address] [place] [address], [place] [address] March, [facility] [address] [id number] [address] [place] [address], [place] [address] March, [facility] [address] [id number] [address] [place] [address], [place] [address] March, [facility] [address] [id number] [address] [place] [address], [place] [address] Feb, [facility] [address] [id number] [address] [place] [address], [place] [address] Feb, [facility] [address] [id number] [address] [place] [address], [place] [address] Jan, [facility] [address] [id number] [address] [place] [address], [place] [address] Jan, [facility] [address] [id number] [address] [place] [address], [place] [address] Jan, [facility] [address] [id number] [address] [place] [address], [place] [address] Dec, [facility] [address] [id number] [address] [place] [id number] 16 Dec, 2011 [facility] [address] [id number] [address] [place] [address], [place] [address] Nov, [facility] [address] [id number] [address] [place] [address], [place] [address] Nov, [facility] [address] [id number] [address] [place] [address], [place] [address] Nov, [facility] [address] [id number] [address] [place] [address], [place] [address] Nov, [facility] [address] [id number] [address] [place] [address], [place] [address] Nov, [facility] [address] [id number] [address] [place] [address], [place] [address] Oct, [facility] [address] [id number] [address] [place] [address], [place] [address] Oct, [facility] [address] [id number] [address] [place] [address], [place] [address] 05 Oct, 2011 [facility] [address] [id number] [address] [place] [address], [place] [address] 02 Oct, 2011 [facility] [address] [id number] [address] [place] [address], [place] [address] Sep, [facility] [address] [id number] [address] [place] [address], [place] [address] Sep, [facility] [address] [id number] [address] [place] [address], [place] [id number] 17 Sep, 2011 [facility] [address] [id number] [address] [place] [address], [place] [address] 13 Aug, 2011 [facility] [address] [id number] [address] [place] [address], [place] [id number] 31 Oct, 2010 [facility] [address] [id number] [address] [place] [address], [place] [id number] 08 Oct, 2010 [facility] [address] [facility] [id number] [place] [address] Oct, [facility] [address] [facility] [id number] [address] [place] [id number] Oct, IMMUNIZATIONS No Known Immunizations SOCIAL HISTORY [...]
--- OUTSIDE RECORDS SUMMARY | 2020-04-25 14:45 | XMS REPORT ---
Author Author Ronna Blackmon Doctor Organization [facility] Address Unknown Phone Unavailable Care Team Providers Care Costume Specialist Name Role Phone Migration, Doctor Unavailable Unavailable PROBLEMS Type Condition ICD9-CM Code [id number] Code Onset Dates Condition S tatus SNOMED Code Problem Posttraumatic stress disorder F43.10 Active 08598495 Problem Anxiety F41.9 Active 69553120 Problem Bipolar disorder, unspecified F31.9 Active [id number] Problem Attention deficit hyperactivity disorder (ADHD), combi dylon type F90.2 Active [id number] ALLERGIES No Information ENCOUNTERS Encounter Location Date Diagnosis [place] [address] [address] [facility] [id number] [address] [place] [address] Apr, [place] [address] [address] [facility] [id number] [address] [place] [phone] Feb, Bipolar disorder, unspecifie d F31.9 [place] [address] [address] [facility] [id number] [address] [place] [address] Feb, Bipolar disorder, unspecifie d F31.9 ; Posttraumatic stress disorder F43.10 ; Attention deficit hyperactivity disorder (ADHD), combined type F90.2 and Anxiety F41.9 [place] [address] [address] [facility] [id number] [address] [place] [address] Feb, Bipolar disorder, unspecifie d F31.9 [facility] [address] [facility] [id number] [address] [place] [address] Jan, [facility] [address] [facility] [id number] [address] [place] [address] Jan, Bipolar disorder, unspecifie d F31.9 [facility] [address] [facility] [id number] [address] [place] [phone] Dec, [place] [address] [address] [facility] [id number] [address] [place] [address] Dec, Bipolar disorder, unspecifie d F31.9 ; Posttraumatic stress disorder F43.10 ; Attention deficit hyperactivity disorder (ADHD), combined type F90.2 and Anxiety F41.9 [facility] [address] [place] [id number] [address] [place] [phone] 18 Dec, 2019 Bipolar disorder, unspecifie d F31.9 [facility] [address] [place] [id number] [place] [phone] 17 Dec, 2019 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 requiring routine preventive dental care K08.9 [facility] [address] [place] [id number] [address] [place] [phone] 05 Dec, 2019 Bipolar disorder, unspecifie d F31.9 [facility] [address] [place] [id number] [address] [place] [address] 13 Nov, 2019 Post-nasal drip R09.82 [facility] [address] [address] 07 Nov, 2019 Bipolar disorder, unspecifie d F31.9 [facility] [address] [address] Oct, [facility] [address] [place] [id number] [address] [place] [address] Oct, Bipolar disorder, unspecifie d F31.9 [facility] [address] [place] [id number] [address] [place] [address] Sep, Bipolar disorder, unspecifie d F31.9 ; Attention deficit hyperactivity disorder (ADHD), combined type F90.2 and Posttraumatic stress disorder F43.10 [facility] [address] [place] [id number] [address] [place] [address] Sep, Bipolar disorder, unspecifie d F31.9 [facility] [address] [facility] [id number] [place] [address] Sep, Dental examination Z01.20 an d Oral health maintenance status requiring routine preventive dental care K08.9 [facility] [address] [id number] [address] [place] [address] Aug, Bipolar disorder, unspecifie d F31.9 [facility] [address] [facility] [id number] [address] [place] [address] Jul, Bipolar disorder, unspecifie d F31.9 [facility] [address] [facility] [id number] [address] [place] [phone] Jun, Bipolar disorder, unspecifie d F31.9 ; Posttraumatic stress disorder F43.10 ; Attention deficit hyperactivity disorder (ADHD), combined type F90.2 and Other superintendent container terminal (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 Z79.899 [facility] [address] [id number] [address] May, Caries K02.9 [facility] [address] [id number], [place] [address] May, Caries K02.9 [facility] [id number] [place] [phone] May, 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 requiring routine preventive dental care K08.9 [facility] [address] [facility] [id number] [address] [place] [address] Apr, Bipolar disorder, unspecifie d F31.9 [facility] [address] [facility] [id number] [address] [place] [address] Apr, [facility] [address] [facility] [id number] [address] [place] [address] Apr, Bipolar disorder, unspecifie d F31.9 [facility] [address] [facility] [id number] [address] [place] [address] Apr, Bipolar disorder, unspecifie d F31.9 [facility] [address] [facility] [id number] [address] [place] [address] Apr, [facility] [address] [facility] [id number] [address] [place] [address] March, Bipolar disorder, unspecifie d F31.9 ; Attention deficit hyperactivity disorder (ADHD), combined type F90.2 ; Posttraumatic stress disorder F43.10 and Other superintendent container terminal (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 Z79.899 [facility] [address] [id number], [place] [address] March, Dental examination Z01.20 and Caries K02 .9 [facility] [address] [id number] [address] [place] [address] Feb, Bipolar disorder, unspecifie d F31.9 [facility] [address] [id number] [address] [place] [address] Jan, Oral health maintenance stat requiring routine preventive dental care K08.9 ; Dental examination Z01.20 and Caries K02.9 [facility] [address] [id number] [address] [place] [address] Jan, Bipolar disorder, unspecifie d F31.9 [facility] [address] [id number] [address] [place] [phone] Dec, Bipolar disorder, unspecifie d F31.9 ; Attention deficit hyperactivity disorder (ADHD), combined type F90.2 and Posttraumatic stress disorder F43.10 [facility] [address] [id number] [address] [place] [address] Oct, Sore throat J02.9 [facility] [address] [id number] [address] [place] [phone] Oct, [facility] [address] [id number] [address] [place] [phone] Oct, Bipolar disorder, unspecifie d F31.9 [facility] [address] [id number] [address] [place] [id number] Sep, Oral health maintenance stat requiring routine preventive dental care K08.9 [facility] [address] [id number] [address] [place] [address] Sep, Bipolar disorder, unspecifie d F31.9 ; Attention deficit hyperactivity disorder (ADHD), combined type F90.2 and Posttraumatic stress disorder F43.10 [facility] [address] [id number] [address] [place] [address] Aug, Lymphadenopathy of left cerv ical region R59.0 [facility] [address] [facility] [id number] [address] [place] [address] Aug, Encounter for immunization Z 23 [facility] [address] [facility] [id number] [address] [place] [address] Aug, Other custodial (current) dr delacruz therapy Z79.899 [facility] [address] [facility] [id number] [address] [place] [address] Jul, Bipolar disorder, unspecifie d F31.9 [facility] [address] [facility] [id number] [address] [place] [address] Jun, Bipolar disorder, unspecifie d F31.9 [facility] [address] [facility] [id number] [address] [place] [address] Jun, [facility] [address] [facility] [id number] [address] [place] [address] Jun, Bipolar disorder, unspecifie d F31.9 ; Attention deficit hyperactivity disorder (ADHD), combined type F90.2 ; Posttraumatic stress disorder F43.10 and Other custodial (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 Z79.899 [facility] [address] [id number] [address] [place] [address] [id number] Jun, Dental examination Z01.20 [facility] [address] [facility] [id number] [address] [place] [address] May, [facility] [address] [facility] [id number] [address] [place] [address] Apr, Bipolar disorder, unspecifie d F31.9 [facility] [address] [facility] [id number] [address] [place] [address] March, Bipolar disorder, unspecifie d F31.9 ; Attention deficit hyperactivity disorder (ADHD), combined type F90.2 and Posttraumatic stress disorder F43.10 [facility] [address] [facility] [id number] [address] [place] [phone] Feb, [facility] [address] [facility] [id number] [address] [place] [address] Feb, Insect bite (nonvenomous), l eft knee, initial encounter S80.262A and Bitten or stung by nonvenomous insect and other nonvenomous arthropods, initial encounter W57.XXXA [facility] [address] [facility] [id number] [address] [place] [address] Feb, Bipolar disorder, unspecifie d F31.9 [facility] [address] [id number] Feb, Dental examination Z01.20 [facility] [address] [place] [id number] [address] [place] [address] Feb, Bipolar disorder, unspecifie d F31.9 ; Attention deficit hyperactivity disorder (ADHD), combined type F90.2 and Posttraumatic stress disorder F43.10 [facility] [address] [place] [id number] [address] [place] [id number] Feb, Dental examination Z01.20 [facility] [address] [place] [id number] [address] [place] [phone] Jan, Bipolar disorder, unspecifie d F31.9 [facility] [address] [facility] [id number] [address] [place] [address] Jan, Attention deficit hyperactiv ity disorder (ADHD), combined type F90.2 [facility] [address] [facility] [id number] [address] [place] [address] Dec, Posttraumatic stress disorde r F43.10 [facility] [address] [place] [id number] [address] [place] [phone] 12 Dec, 2017 Posttraumatic stress disorde r F43.10 [facility] [address] [id number] [address] [place] [address] [id number] Nov, Dental examination Z01.20 [facility] [address] [id number] [address] [place] [address] [id number] Nov, Encounter for dental exam an d cleaning w/o abnormal findings Z01.20 [facility] [address] [id number] [address] [place] [address] [id number] Nov, Dental examination Z01.20 [facility] [address] [id number] [address] [place] [phone] Sep, Bipolar disorder, unspecifie d F31.9 ; Posttraumatic stress disorder F43.10 and Attention deficit hyperactivity disorder (ADHD), combined type F90.2 [facility] [address] [facility] [id number] [address] [place] [phone] 09 Aug, 2017 Posttraumatic stress disorde r F43.10 [facility] [address] [facility] [id number] [address] [place] [phone] 15 Jul, 2017 Other superintendent container terminal (current) dr ug therapy Z79.899 [facility] [address] [facility] [id number] [address] [place] [address] Jul, Bipolar disorder, unspecifie d F31.9 ; Attention deficit hyperactivity disorder (ADHD), combined type F90.2 and Posttraumatic stress disorder F43.10 [facility] [address] [id number] [address] [place] [phone] Jun, Bipolar disorder, unspecifie d F31.9 ; Posttraumatic stress disorder F43.10 ; Attention deficit hyperactivity disorder (ADHD), combined type F90.2 and Other custodial (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 Z79.899 [facility] [address] [facility] [id number] [address] [place] [address] March, Bipolar disorder, unspecifie d F31.9 ; Posttraumatic stress disorder F43.10 and Attention deficit hyperactivity disorder (ADHD), combined type F90.2 [facility] [address] [id number] [address] [place] [address], [place] [address] Dec, Bipolar disorder, unspecifie d F31.9 ; Posttraumatic stress disorder F43.10 and Attention deficit hyperactivity disorder (ADHD), combined type F90.2 [facility] [address] [id number] [address] [place] [address], [place] [address] Dec, [facility] [address] [id number] [address] [place] [address], [place] [address] Sep, [facility] [address] [id number] [address] [place] [address], [place] [address] Aug, Bipolar disorder, unspecifie d F31.9 ; Posttraumatic stress disorder F43.10 and Attention deficit hyperactivity disorder (ADHD), combined type F90.2 [facility] [address] [id number] [address] [place] [address], [place] [address] Jun, [facility] [address] [id number] [address] [place] [address] March, [facility] [address] [id number] [address] [place] [address], [place] [address] Feb, Bipolar disorder, unspecifie d F31.9 ; Attention deficit hyperactivity disorder (ADHD), combined type F90.2 and Posttraumatic stress disorder F43.10 [facility] [address] [id number] [address] [place] [address] Feb, [facility] [address] [id number] [address] [place] [phone] Feb, [facility] [address] [id number] [address] [place] [address], [place] [address] Feb, [facility] [address] [id number] [address] [place] [address], [place] [address] Jan, [facility] [address] [id number] [address] [place] [address] [id number] Dec, Dental examination Z01.20 [facility] [address] [facility] [id number] [address] [place] [phone] Sep, [facility] [address] [facility] [id number] [address] [place] [address] Sep, Attention deficit hyperactiv ity disorder (ADHD), combined type F90.2 ; Posttraumatic stress disorder F43.10 and Bipolar disorder, unspecified F31.9 [facility] [address] [facility] [id number] [address] [place] [phone] Aug, [facility] [address] [facility] [id number] [address] [place] [address] Aug, [facility] [address] [facility] [id number] [address] [place] [address] Jul, [facility] [address] [facility] [id number] [address] [place] [address] May, Bipolar disorder, unspecifie d 296.80 ; 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.00 and Posttraumatic stress disorder 309.81 [facility] [address] [facility] [id number] [address] [place] [address] May, [facility] [address] [facility] [id number] [address] [place] [address] May, [facility] [address] [facility] [id number] [address] [place] [address] May, [facility] [address] [facility] [id number] [address] [place] [address] Apr, [facility] [address] [facility] [id number] [address] [place] [address] Apr, [facility] [address] [facility] [id number] [address] [place] [address] Apr, [facility] [address] [facility] [id number] [address] [place] [address] March, [facility] [address] [id number] [facility] [place] [address] March, [facility] [address] [id number] [address] [place] [address], [place] [address] March, [facility] [address] [id number] [address] [place] [address], [place] [address] Feb, [facility] [address] [id number] [address] [place] [address], [place] [address] Feb, [facility] [address] [id number] [address] [place] [address], [place] [address] Jan, [facility] [address] [id number] [address] [place] [address], [place] [address] Jan, [facility] [address] [id number] [address] [place] [address], [place] [address] Jan, [facility] [address] [id number] [address] [place] [address], [place] [address] Jan, [facility] [address] [id number] [address] [place] [address], [place] [address] Jan, [facility] [address] [id number] [address] [place] [address], [place] [address] Jan, [facility] [address] [id number] [address] [place] [address], [place] [address] Jan, [facility] [address] [id number] [address] [place] [address], [place] [address] Jan, [facility] [address] [id number] [address] [place] [address], [place] [address] Jan, [facility] [address] [id number] [address] [place] [address], [place] [address] Jan, [facility] [address] [id number] [address] [place] [address], [place] [address] Dec, [facility] [address] [id number] [address] [place] [address], [place] [address] Dec, [facility] [address] [id number] [address] [place] [address], [place] [address] Dec, [facility] [address] [id number] [address] [place] [address], [place] [address] Dec, [facility] [address] [id number] [address] [place] [address], [place] [address] Oct, [facility] [address] [id number] [address] [place] [address], [place] [address] Oct, [facility] [address] [id number] [address] [place] [address], [place] [address] Oct, [facility] [address] [id number] [address] [place] [address], [place] [address] Oct, [facility] [address] [id number] [address] [place] [address], [place] [address] Oct, [facility] [address] [id number] [address] [place] [address], [place] [address] Oct, [facility] [address] [id number] [address] [place] [address], [place] [address] Oct, [facility] [address] [id number] [address] [place] [address], [place] [address] Sep, [facility] [address] [id number] [address] [place] [address], [place] [address] Sep, [facility] [address] [id number] [address] [place] [address], [place] [address] Sep, [facility] [address] [id number] [address] [place] [address], [place] [address] Sep, [facility] [address] [id number] [address] [place] [address], [place] [address] Sep, [facility] [address] [id number] [address] [place] [address], [place] [address] Sep, [facility] [address] [id number] [address] [place] [address], [place] [address] Sep, [facility] [address] [id number] [address] [place] [address], [place] [address] Sep, [facility] [address] [id number] [address] [place] [address], [place] [address] Aug, [facility] [address] [id number] [address] [place] [address], [place] [address] Aug, [facility] [address] [id number] [address] [place] [address], [place] [address] Aug, [facility] [address] [id number] [address] [place] [address], [place] [address] Aug, [facility] [address] [id number] [address] [place] [address], [place] [address] Jul, [facility] [address] [id number] [address] [place] [address], [place] [address] Jul, [facility] [address] [id number] [address] [place] [address], [place] [address] Jul, [facility] [address] [id number] [address] [place] [address], [place] [address] Jul, [facility] [address] [id number] [address] [place] [address], [place] [address] Jun, [facility] [address] [id number] [address] [place] [address], [place] [address] Jun, [facility] [address] [id number] [address] [place] [address], [place] [address] Jun, [facility] [address] [id number] [address] [place] [address], [place] [address] Jun, [facility] [address] [id number] [address] [place] [address], [place] [address] May, [facility] [address] [id number] [address] [place] [address], [place] [address] May, [facility] [address] [id number] [address] [place] [address], [place] [address] May, [facility] [address] [id number] [address] [place] [address], [place] [address] May, [facility] [address] [id number] [address] [place] [address], [place] [address] Apr, [facility] [address] [id number] [address] [place] [address], [place] [address] Apr, [facility] [address] [id number] [address] [place] [address], [place] [address] Apr, [facility] [address] [id number] [address] [place] [address], [place] [address] Apr, [facility] [address] [id number] [address] [place] [address], [place] [address] Apr, [facility] [address] [id number] [address] [place] [address], [place] [address] Apr, [facility] [address] [address] [id number] [address] [place] [address], [place] [address] Apr, [facility] [address] [id number] [address] [place] [address], [place] [address] Apr, [facility] [address] [id number] [address] [place] [address], [place] [address] Apr, [facility] [address] [id number] [address] [place] [address], [place] [address] Apr, [facility] [address] [id number] [address] [place] [address], [place] [address] Apr, [facility] [address] [id number] [address] [place] [address], [place] [address] Apr, [facility] [address] [id number] [address] [place] [address], [place] [address] Apr, [facility] [address] [id number] [address] [place] [address], [place] [address] March, [facility] [address] [id number] [address] [place] [address], [place] [address] March, [facility] [address] [id number] [address] [place] [address], [place] [address] March, [facility] [address] [id number] [address] [place] [address], [place] [address] March, [facility] [address] [id number] [address] [place] [address], [place] [address] Jan, [facility] [address] [id number] [address] [place] [address], [place] [address] Jan, [facility] [address] [id number] [address] [place] [address], [place] [address] Jan, [facility] [address] [id number] [address] [place] [address], [place] [address] Jan, [facility] [address] [id number] [address] [place] [address], [place] [address] Jan, [facility] [address] [id number] [address] [place] [address], [place] [address] Jan, [facility] [address] [id number] [address] [place] [address], [place] [address] Dec, [facility] [address] [id number] [address] [place] [address], [place] [address] Dec, [facility] [address] [id number] [address] [place] [address], [place] [address] Dec, [facility] [address] [id number] [address] [place] [address], [place] [address] Dec, [facility] [address] [id number] [address] [place] [address], [place] [address] Nov, [facility] [address] [id number] [address] [place] [address], [place] [address] Nov, [facility] [address] [id number] [address] [place] [address], [place] [address] Nov, [facility] [address] [id number] [address] [place] [address], [place] [address] Nov, [facility] [address] [id number] [address] [place] [address], [place] [address] Oct, [facility] [address] [id number] [address] [place] [address], [place] [address] Oct, [facility] [address] [id number] [address] [place] [address], [place] [address] Oct, [facility] [address] [id number] [address] [place] [address], [place] [address] Oct, [facility] [address] [id number] [address] [place] [address], [place] [address] Oct, [facility] [address] [id number] [address] [place] [address], [place] [address] Oct, [facility] [address] [id number] [address] [place] [address], [place] [address] Oct, [facility] [address] [id number] [address] [place] [address], [place] [address] Oct, [facility] [address] [id number] [address] [place] [address], [place] [address] Sep, [facility] [address] [id number] [address] [place] [address], [place] [address] Sep, [facility] [address] [id number] [address] [place] [address], [place] [address] Jul, [facility] [address] [id number] [address] [place] [address], [place] [address] 12 Jul, 2013 [facility] [address] [id number] [address] [place] [address], [place] [address] 09 Jul, 2013 [facility] [address] [id number] [address] [place] [address], [place] [address] Jul, [facility] [address] [id number] [address] [place] [address], [place] [address] Jun, [facility] [address] [id number] [address] [place] [address], [place] [address] Jun, [facility] [address] [id number] [address] [place] [address], [place] [address] May, [facility] [address] [id number] [address] [place] [address], [place] [address] Apr, [facility] [address] [id number] [address] [place] [address], [place] [address] Apr, [facility] [address] [id number] [address] [place] [address], [place] [address] Apr, [facility] [address] [id number] [address] [place] [address], [place] [address] March, [facility] [address] [id number] [address] [place] [address], [place] [address] March, [facility] [address] [id number] [address] [place] [address], [place] [address] Feb, [facility] [address] [id number] [address] [place] [address], [place] [address] Jan, [facility] [address] [id number] [address] [place] [address], [place] [address] Jan, [facility] [address] [id number] [address] [place] [address], [place] [address] Dec, [facility] [address] [id number] [address] [place] [address], [place] [address] Dec, [facility] [address] [id number] [address] [place] [address], [place] [address] Nov, [facility] [address] [id number] [address] [place] [address], [place] [address] Nov, [facility] [address] [id number] [address] [place] [address], [place] [address] Nov, [facility] [address] [id number] [address] [place] [address], [place] [address] 18 Oct, 2012 [facility] [address] [id number] [address] [place] [address], [place] [address] 18 Oct, 2012 [facility] [address] [id number] [address] [place] [address], [place] [address] Oct, [facility] [address] [id number] [address] [place] [address], [place] [address] Oct, [facility] [address] [id number] [address] [place] [address], [place] [address] Sep, [facility] [address] [id number] [address] [place] [address], [place] [address] 29 Sep, 2012 [facility] [address] [id number] [address] [place] [address], [place] [address] Sep, [facility] [address] [id number] [address] [place] [address], [place] [address] 23 Sep, 2012 [facility] [address] [id number] [address] [place] [address], [place] [address] 15 Sep, 2012 [facility] [address] [id number] [address] [place] [address], [place] [address] 15 Sep, 2012 [facility] [address] [id number] [address] [place] [address], [place] [address] 02 Aug, 2012 [facility] [address] [id number] [address] [place] [address], [place] [address] 26 Jul, 2012 [facility] [address] [id number] [address] [place] [address], [place] [address] 19 Jul, 2012 [facility] [address] [id number] [address] [place] [address], [place] [address] 18 Jul, 2012 [facility] [address] [id number] [address] [place] [address], [place] [address] Jul, [facility] [address] [id number] [address] [place] [address], [place] [address] Jun, [facility] [address] [id number] [address] [place] [address], [place] [address] Jun, [facility] [address] [id number] [address] [place] [address], [place] [address] Jun, [facility] [address] [id number] [address] [place] [address], [place] [address] Jun, [facility] [address] [id number] [address] [place] [address], [place] [address] May, [facility] [address] [id number] [address] [place] [address], [place] [address] Apr, [facility] [address] [id number] [address] [place] [address], [place] [address] March, [facility] [address] [id number] [address] [place] [address], [place] [address] March, [facility] [address] [id number] [address] [place] [address], [place] [address] March, [facility] [address] [id number] [address] [place] [address], [place] [address] Feb, [facility] [address] [id number] [address] [place] [address], [place] [address] Feb, [facility] [address] [id number] [address] [place] [address], [place] [address] Jan, [facility] [address] [id number] [address] [place] [address], [place] [address] Jan, [facility] [address] [id number] [address] [place] [address], [place] [address] Jan, [facility] [address] [id number] [address] [place] [address], [place] [address] Dec, [facility] [address] [id number] [address] [place] [address] 16 Dec, [address] [facility] [address] [id number] [address] [place] [address], [place] [address] Nov, [facility] [address] [id number] [address] [place] [address], [place] [address] Nov, [facility] [address] [id number] [address] [place] [address], [place] [address] Nov, [facility] [address] [id number] [address] [place] [address], [place] [address] Nov, [facility] [address] [id number] [address] [place] [address], [place] [address] Nov, [facility] [address] [id number] [address] [place] [address], [place] [address] Oct, [facility] [address] [id number] [address] [place] [address], [place] [address] Oct, [facility] [address] [id number] [address] [place] [address], [place] [address] 05 Oct, [address] [facility] [address] [id number] [address] [place] [address], [place] [address] 02 Oct, 2011 [facility] [address] [id number] [address] [place] [address], [place] [address] Sep, [facility] [address] [id number] [address] [place] [address], [place] [address] Sep, [facility] [address] [id number] [address] [place] [address], [place] [address] 17 Sep, 2011 [facility] [address] [id number] [address] [place] [address], [place] [address] 13 Aug, 2011 [facility] [address] [id number] [address] [place] [address], [place] [address] 31 Oct, 2010 [facility] [address] [id number] [address] [place] [address], [place] [address] 08 Oct, 2010 [facility] [address] [facility] [id number] [address] [address] Oct, [facility] [address] [facility] [id number] [address] [place] [address] Oct, IMMUNIZATIONS No Known Immunizations SOCIAL HISTORY [...]
--- OUTSIDE RECORDS SUMMARY | 2020-04-25 14:45 | XMS REPORT ---
Author Author Ronna Blackmon Doctor Organization [facility] Address Unknown Phone Unavailable Care Team Providers Care Supervisor Coating Name Role Phone Migration, Doctor Unavailable Unavailable PROBLEMS Type Condition ICD9-CM Code AKE38-IA Code Onset Dates Condition S tatus SNOMED Code Problem Posttraumatic stress disorder F43.10 Active 96001223 Problem Anxiety F41.9 Active 77255000 Problem Bipolar disorder, unspecified F31.9 Active 21722281 Problem Attention deficit hyperactivity disorder (ADHD), combi dylon type F90.2 Active [id number] ALLERGIES No Information ENCOUNTERS Encounter Location Date Diagnosis [place] [address] [facility] [id number] [address] [place] [address] Apr, [facility] [address] [facility] [id number] [address] [place] [address] Feb, Bipolar disorder, unspecifie d F31.9 [facility] [address] [place] [id number] [address] [place] [phone] Feb, Bipolar disorder, unspecifie d F31.9 ; Posttraumatic stress disorder F43.10 ; Attention deficit hyperactivity disorder (ADHD), combined type F90.2 and Anxiety F41.9 [facility] [address] [facility] [id number] [address] [place] [address] Feb, Bipolar disorder, unspecifie d F31.9 [facility] [id number] [place] [phone] Jan, [facility] [address] [facility] [id number] [address] [place] [address] Jan, [facility] [address] [facility] [id number] [address] [place] [address] Jan, Bipolar disorder, unspecifie d F31.9 [facility] [address] [facility] [id number] [address] [place] [address] Dec, [facility] [address] [facility] [id number] [address] [place] [address] Dec, Bipolar disorder, unspecifie d F31.9 ; Posttraumatic stress disorder F43.10 ; Attention deficit hyperactivity disorder (ADHD), combined type F90.2 and Anxiety F41.9 [facility] [address] [facility] [id number] [address] [place] [phone] 18 Dec, 2019 Bipolar disorder, unspecifie d F31.9 [facility] [id number] [place] [phone] 17 Dec, 2019 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 requiring routine preventive dental care K08.9 [facility] [address] [facility] [id number] [address] [place] [phone] 05 Dec, 2019 Bipolar disorder, unspecifie d F31.9 [facility] [address] [facility] [id number] [address] [place] [address] Nov, Post-nasal drip R09.82 [facility] [address] [facility] [id number] [address] [place] [address] Nov, Bipolar disorder, unspecifie d F31.9 [facility] [address] [facility] [id number] [address] [place] [address] Oct, [facility] [address] [facility] [id number] [address] [place] [address] Oct, Bipolar disorder, unspecifie d F31.9 [facility] [address] [facility] [id number] [address] [place] [address] Sep, Bipolar disorder, unspecifie d F31.9 ; Attention deficit hyperactivity disorder (ADHD), combined type F90.2 and Posttraumatic stress disorder F43.10 [facility] [address] [facility] [id number] [address] [place] [address] Sep, Bipolar disorder, unspecifie d F31.9 [facility] [address] [place] [address] [id number] [address] Sep, Dental examination Z01.20 an d Oral health maintenance status requiring routine preventive dental care K08.9 [facility] [address] [facility] [id number] [address] [place] [address] Aug, Bipolar disorder, unspecifie d F31.9 [facility] [address] [facility] [id number] [address] [place] [address] Jul, Bipolar disorder, unspecifie d F31.9 [facility] [address] [facility] [id number] [address] [place] [address] Jun, Bipolar disorder, unspecifie d F31.9 ; Posttraumatic stress disorder F43.10 ; Attention deficit hyperactivity disorder (ADHD), combined type F90.2 and [place] [facility] 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 Z79.899 [facility] [address] [id number] [address] May, Caries K02.9 [facility] [address] [id number] [place] [address] May, Caries K02.9 [facility] [address] [place] [id number] [place] [address] May, 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 requiring routine preventive dental care K08.9 [facility] [address] [facility] [id number] [address] [place] [address] Apr, Bipolar disorder, unspecifie d F31.9 [facility] [address] [facility] [id number] [address] [place] [address] Apr, [facility] [address] [facility] [id number] [address] [place] [address] Apr, Bipolar disorder, unspecifie d F31.9 [facility] [address] [facility] [id number] [address] [place] [address] Apr, Bipolar disorder, unspecifie d F31.9 [facility] [address] [facility] [id number] [address] [place] [address] Apr, [facility] [address] [facility] [id number] [address] [place] [address] March, Bipolar disorder, unspecifie d F31.9 ; Attention deficit hyperactivity disorder (ADHD), combined type F90.2 ; Posttraumatic stress disorder F43.10 and [place] [facility] 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 Z79.[address] [facility] [id number] [place] [address] March, Dental examination Z01.20 and Caries K02 .9 [facility] [address] [facility] [id number] [address] [place] [address] Feb, Bipolar disorder, unspecifie d F31.9 [facility] [address] [facility] [id number] [address] [place] [address] Jan, 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 requiring routine preventive dental care K08.9 ; Dental examination Z01.20 and Caries K02.9 [facility] [address] [facility] [id number] [address] [place] [address] Jan, Bipolar disorder, unspecifie d F31.9 [facility] [address] [facility] [id number] [address] [place] [address] Dec, Bipolar disorder, unspecifie d F31.9 ; Attention deficit hyperactivity disorder (ADHD), combined type F90.2 and Posttraumatic stress disorder F43.10 [facility] [address] [facility] [id number] [address] [place] [address] Oct, Sore throat J02.9 [facility] [address] [facility] [id number] [address] [place] [address] Oct, [facility] [address] [facility] [id number] [address] [place] [address] Oct, Bipolar disorder, unspecifie d F31.9 [facility] [address] [id number] [address] [place] [id number] Sep, 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 requiring routine preventive dental care K08.9 [facility] [address] [id number] [address] [place] [address] Sep, Bipolar disorder, unspecifie d F31.9 ; Attention deficit hyperactivity disorder (ADHD), combined type F90.2 and Posttraumatic stress disorder F43.10 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 [facility] [address] [facility] [id number] [address] [place] [address] Jul, Bipolar disorder, unspecifie d F31.9 [facility] [address] [facility] [id number] [address] [place] [address] Jun, Bipolar disorder, unspecifie d F31.9 [facility] [address] [facility] [id number] [address] [place] [address] Jun, [facility] [address] [id number] [address] [place] [address] Jun, Bipolar disorder, unspecifie d F31.9 ; Attention deficit hyperactivity disorder (ADHD), combined type F90.2 ; Posttraumatic stress disorder F43.10 and [place] [facility] 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 Z79.899 [facility] [address] [id number] [address] [place] [id number] Jun, Dental examination Z01.20 [facility] [address] [id number] [address] [place] [address] May, [facility] [address] [facility] [id number] [address] [place] [address] Apr, Bipolar disorder, unspecifie d F31.9 [facility] [address] [place] [id number] [place] [address] March, Bipolar disorder, unspecifie d F31.9 ; Attention deficit hyperactivity disorder (ADHD), combined type F90.2 and Posttraumatic stress disorder F43.10 [facility] [address] [place] [id number] [address] [place] [address] Feb, [facility] [address] [facility] [id number] [address] [place] [address] Feb, Insect bite (nonvenomous), l eft knee, initial encounter S80.262A and Bitten or stung by nonvenomous insect and other nonvenomous arthropods, initial encounter W57.XXXA [facility] [address] [place] [id number] [address] [place] [address] Feb, Bipolar disorder, unspecifie d F31.9 [facility] [address] [facility] [id number] [address] [place] [address] [id number] Feb, Dental examination Z01.20 [facility] [address] [place] [id number] [address] [place] [address] Feb, Bipolar disorder, unspecifie d F31.9 ; Attention deficit hyperactivity disorder (ADHD), combined type F90.2 and Posttraumatic stress disorder F43.10 [facility] [address] [id number] [address] [place] [address] [id number] Feb, Dental examination Z01.20 [facility] [address] [facility] [id number] [address] [place] [address] Jan, Bipolar disorder, unspecifie d F31.9 [facility] [address] [place] [id number] [address] [place] [address] Jan, Attention deficit hyperactiv ity disorder (ADHD), combined type F90.2 [facility] [address] [place] [id number] [address] [place] [address] Dec, Posttraumatic stress disorde r F43.10 [facility] [address] [facility] [id number] [address] [place] [phone] 12 Dec, 2017 Posttraumatic stress disorde r F43.10 [facility] [address] [id number] [address] [place] [address] [id number] Nov, Dental examination Z01.20 [facility] [address] [id number] [address] [place] [address] [id number] Nov, Dental examination Z01.20 [facility] [address] [id number] [address] [place] [address] [id number] Nov, Encounter for dental exam an d cleaning w/o abnormal findings Z01.20 [facility] [address] [facility] [id number] [address] [place] [address] Sep, Bipolar disorder, unspecifie d F31.9 ; Posttraumatic stress disorder F43.10 and Attention deficit hyperactivity disorder (ADHD), combined type F90.2 [facility] [address] [place] [id number] [address] [place] [address] Aug, Posttraumatic stress disorde r F43.10 [facility] [address] [place] [id number] [address] [place] [phone] 15 Jul, 2017 [place] [facility] dr ug therapy Z79.899 [facility] [address] [facility] [id number] [address] [place] [address] Jul, Bipolar disorder, unspecifie d F31.9 ; Attention deficit hyperactivity disorder (ADHD), combined type F90.2 and Posttraumatic stress disorder F43.10 [facility] [address] [facility] [id number] [address] [place] [address] Jun, Bipolar disorder, unspecifie d F31.9 ; Posttraumatic stress disorder F43.10 ; Attention deficit hyperactivity disorder (ADHD), combined type F90.2 and 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 [facility] [address] [id number] [address] [place] [address] March, Bipolar disorder, unspecifie d F31.9 ; Posttraumatic stress disorder F43.10 and Attention deficit hyperactivity disorder (ADHD), combined type F90.2 [facility] [address] [id number] [address] [place] [phone] Dec, Bipolar disorder, unspecifie d F31.9 ; Posttraumatic stress disorder F43.10 and Attention deficit hyperactivity disorder (ADHD), combined type F90.2 [facility] [address] [id number] [address] [place] [address], [place] [address] Dec, [facility] [address] [id number] [address] [place] [phone] Sep, [facility] [address] [id number] [address] [place] [phone] Aug, Bipolar disorder, unspecifie d F31.9 ; Posttraumatic stress disorder F43.10 and Attention deficit hyperactivity disorder (ADHD), combined type F90.2 [facility] [address] [id number] [address] [place] [address] Jun, [facility] [address] [id number] [address] [place] [address] March, [facility] [address] [id number] [address] [place] [address] Feb, Bipolar disorder, unspecifie d F31.9 ; Attention deficit hyperactivity disorder (ADHD), combined type F90.2 and Posttraumatic stress disorder F43.10 [facility] [address] [id number] [address] [place] [address] Feb, [facility] [address] [id number] [address] [place] [address] Feb, [facility] [address] [id number] [address] [place] [phone] Feb, [facility] [address] [id number] [address] [place] [address] Jan, [facility] [address] [id number] [address] [place] [address] [id number] Dec, Dental examination Z01.20 [facility] [address] [facility] [id number] [address] [place] [address] Sep, [facility] [address] [facility] [id number] [address] [place] [phone] Sep, Attention deficit hyperactiv ity disorder (ADHD), combined type F90.2 ; Posttraumatic stress disorder F43.10 and Bipolar disorder, unspecified F31.9 [facility] [address] [facility] [id number] [address] [place] [phone] Aug, [facility] [address] [facility] [id number] [address] [place] [address] Aug, [facility] [address] [facility] [id number] [address] [place] [address] Jul, [facility] [address] [facility] [id number] [address] [place] [address] May, Bipolar disorder, unspecifie d 296.80 ; 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.00 and Posttraumatic stress disorder 309.81 [facility] [address] [facility] [id number] [address] [place] [address] May, [facility] [address] [facility] [id number] [address] [place] [address] May, [facility] [address] [facility] [id number] [address] [place] [address] May, [facility] [address] [facility] [id number] [address] [place] [address] Apr, [facility] [address] [facility] [id number] [address] [place] [phone] Apr, [facility] [address] [facility] [id number] [address] [place] [address] Apr, [facility] [address] [id number] [address] [place] [address], [place] [address] March, [facility] [address] [id number] [address] [place] [address], [place] [address] March, [facility] [address] [id number] [address] [place] [address], [place] [address] March, [facility] [address] [id number] [address] [place] [address], [place] [address] Feb, [facility] [address] [id number] [address] [place] [address], [place] [address] Feb, [facility] [address] [id number] [address] [place] [address], [place] [address] Jan, [facility] [address] [id number] [address] [place] [address], [place] [address] Jan, [facility] [address] [id number] [address] [place] [address], [place] [address] Jan, [facility] [address] [id number] [address] [place] [address], [place] [address] Jan, [facility] [address] [id number] [address] [place] [address], [place] [address] Jan, [facility] [address] [id number] [address] [place] [address], [place] [address] Jan, [facility] [address] [id number] [address] [place] [address], [place] [address] Jan, [facility] [address] [id number] [address] [place] [address], [place] [address] Jan, [facility] [address] [id number] [address] [place] [address], [place] [address] Jan, [facility] [address] [id number] [address] [place] [address], [place] [address] Jan, [facility] [address] [id number] [address] [place] [address], [place] [address] Dec, 2014 [facility] [address] [id number] [address] [place] [address], [place] [address] Dec, 2014 [facility] [address] [id number] [address] [place] [address], [place] [address] Dec, 2014 [facility] [address] [id number] [address] [place] [address], [place] [address] Dec, [facility] [address] [id number] [address] [place] [address], [place] [address] Oct, [facility] [address] [id number] [address] [place] [address], [place] [address] Oct, [facility] [address] [id number] [address] [place] [address], [place] [address] Oct, [facility] [address] [id number] [address] [place] [address], [place] [address] Oct, [facility] [address] [id number] [address] [place] [address], [place] [address] Oct, [facility] [address] [id number] [address] [place] [address], [place] [address] Oct, [facility] [address] [id number] [address] [place] [address], [place] [address] Oct, [facility] [address] [id number] [address] [place] [address], [place] [address] Sep, [facility] [address] [id number] [address] [place] [address], [place] [address] Sep, [facility] [address] [id number] [address] [place] [address], [place] [address] Sep, [facility] [address] [id number] [address] [place] [address], [place] [address] Sep, [facility] [address] [id number] [address] [place] [address], [place] [address] Sep, [facility] [address] [id number] [address] [place] [address], [place] [address] Sep, [facility] [address] [id number] [address] [place] [address], [place] [address] Sep, [facility] [address] [id number] [address] [place] [address], [place] [address] Sep, [facility] [address] [id number] [address] [place] [address], [place] [address] Aug, [facility] [address] [id number] [address] [place] [address], [place] [address] Aug, [facility] [address] [id number] [address] [place] [address], [place] [address] Aug, [facility] [address] [id number] [address] [place] [address], [place] [address] Aug, [facility] [address] [id number] [address] [place] [address], [place] [address] Jul, [facility] [address] [id number] [address] [place] [address], [place] [address] Jul, [facility] [address] [id number] [address] [place] [address], [place] [address] Jul, [facility] [address] [id number] [address] [place] [address], [place] [address] Jul, [facility] [address] [id number] [address] [place] [address], [place] [address] Jun, [facility] [address] [id number] [address] [place] [address], [place] [address] Jun, [facility] [address] [id number] [address] [place] [address], [place] [address] Jun, [facility] [address] [id number] [address] [place] [address], [place] [address] Jun, [facility] [address] [id number] [address] [place] [address], [place] [address] May, [facility] [address] [id number] [address] [place] [address], [place] [address] May, [facility] [address] [id number] [address] [place] [address], [place] [address] May, [facility] [address] [id number] [address] [place] [address], [place] [address] May, [facility] [address] [id number] [address] [place] [address], [place] [address] Apr, [facility] [address] [id number] [address] [place] [address], [place] [address] Apr, [facility] [address] [id number] [address] [place] [address], [place] [address] Apr, [facility] [address] [id number] [address] [place] [address], [place] [address] Apr, [facility] [address] [id number] [address] [place] [address], [place] [address] Apr, [facility] [address] [id number] [address] [place] [address], [place] [address] Apr, [facility] [address] [id number] [address] [place] [address], [place] [address] Apr, [facility] [address] [id number] [address] [place] [address], [place] [address] Apr, [facility] [address] [id number] [address] [place] [address], [place] [address] Apr, [facility] [address] [id number] [address] [place] [address], [place] [address] Apr, [facility] [address] [id number] [address] [place] [address], [place] [address] Apr, [facility] [address] [id number] [address] [place] [address], [place] [address] Apr, [facility] [address] [id number] [address] [place] [address] Apr, [facility] [address] [id number] [address] [place] [address], [place] [address] March, [facility] [address] [id number] [address] [place] [address], [place] [address] March, [facility] [address] [id number] [address] [place] [address], [place] [address] March, [facility] [address] [id number] [address] [place] [address], [place] [address] March, [facility] [address] [id number] [address] [place] [address], [place] [address] Jan, [facility] [address] [id number] [address] [place] [address], [place] [address] Jan, [facility] [address] [id number] [address] [place] [address], [place] [address] Jan, [facility] [address] [id number] [address] [place] [address], [place] [address] Jan, [facility] [address] [id number] [address] [place] [address], [place] [address] Jan, [facility] [address] [id number] [address] [place] [address], [place] [address] Jan, [facility] [address] [id number] [address] [place] [address], [place] [address] Dec, [facility] [address] [id number] [address] [place] [address], [place] [address] Dec, [facility] [address] [id number] [address] [place] [address], [place] [address] Dec, [facility] [address] [id number] [address] [place] [address], [place] [address] Dec, [facility] [address] [id number] [address] [place] [address], [place] [address] Nov, [facility] [address] [id number] [address] [place] [address], [place] [address] Nov, [facility] [address] [id number] [address] [place] [address], [place] [address] Nov, [facility] [address] [id number] [address] [place] [address], [place] [address] Nov, [facility] [address] [id number] [address] [place] [address], [place] [address] Oct, [facility] [address] [id number] [address] [place] [address], [place] [address] Oct, [facility] [address] [id number] [address] [place] [address], [place] [address] Oct, [facility] [address] [id number] [address] [place] [address], [place] [address] Oct, [facility] [address] [id number] [address] [place] [address], [place] [address] Oct, [facility] [address] [id number] [address] [place] [address], [place] [address] Oct, [facility] [address] [id number] [address] [place] [address], [place] [address] Oct, [facility] [address] [id number] [address] [place] [address], [place] [address] Oct, [facility] [address] [id number] [address] [place] [address], [place] [address] Sep, [facility] [address] [id number] [address] [place] [address], [place] [address] Sep, [facility] [address] [id number] [address] [place] [address], [place] [address] Jul, [facility] [address] [id number] [address] [place] [address], [place] [address] 12 Jul, 2013 [facility] [address] [id number] [address] [place] [address], [place] [address] Jul, [facility] [address] [id number] [address] [place] [address], [place] [address] Jul, [facility] [address] [id number] [address] [place] [address], [place] [address] Jun, [facility] [address] [id number] [address] [place] [address], [place] [address] Jun, [facility] [address] [id number] [address] [place] [address], [place] [address] May, [facility] [address] [id number] [address] [place] [address], [place] [address] Apr, [facility] [address] [id number] [address] [place] [address], [place] [address] Apr, [facility] [address] [id number] [address] [place] [address], [place] [address] Apr, [facility] [address] [id number] [address] [place] [address], [place] [address] March, [facility] [address] [id number] [address] [place] [address], [place] [address] March, [facility] [address] [id number] [address] [place] [address], [place] [address] Feb, [facility] [address] [id number] [address] [place] [address], [place] [address] Jan, [facility] [address] [id number] [address] [place] [address], [place] [address] Jan, [facility] [address] [id number] [address] [place] [address], [place] [address] Dec, [facility] [address] [id number] [address] [place] [address], [place] [address] Dec, [facility] [address] [id number] [address] [place] [address], [place] [address] Nov, [facility] [address] [id number] [address] [place] [address], [place] [address] Nov, [facility] [address] [id number] [address] [place] [address], [place] [address] Nov, [facility] [address] [id number] [address] [place] [address], [place] [address] Oct, [facility] [address] [id number] [address] [place] [address], [place] [address] Oct, [facility] [address] [id number] [address] [place] [address], [place] [address] Oct, [facility] [address] [id number] [address] [place] [address], [place] [address] Oct, [facility] [address] [id number] [address] [place] [address], [place] [address] Sep, [facility] [address] [id number] [address] [place] [address], [place] [address] Sep, [facility] [address] [id number] [address] [place] [address], [place] [address] Sep, [facility] [address] [id number] [address] [place] [address], [place] [address] Sep, [facility] [address] [id number] [address] [place] [address], [place] [address] 15 Sep, 2012 [facility] [address] [id number] [address] [place] [address], [place] [address] 15 Sep, 2012 [facility] [address] [id number] [address] [place] [address], [place] [address] 02 Aug, 2012 [facility] [address] [id number] [address] [place] [address], [place] [address] 26 Jul, 2012 [facility] [address] [id number] [address] [place] [address], [place] [address] 19 Jul, 2012 [facility] [address] [id number] [address] [place] [address], [place] [address] Jul, [facility] [address] [id number] [address] [place] [address], [place] [address] Jul, [facility] [address] [id number] [address] [place] [address], [place] [address] Jun, [facility] [address] [id number] [address] [place] [address], [place] [address] Jun, [facility] [address] [id number] [address] [place] [address], [place] [address] Jun, [facility] [address] [id number] [address] [place] [address], [place] [address] Jun, [facility] [address] [id number] [address] [place] [address], [place] [address] May, [facility] [address] [id number] [address] [place] [address], [place] [address] Apr, [facility] [address] [id number] [address] [place] [address], [place] [address] March, [facility] [address] [id number] [address] [place] [address], [place] [address] March, [facility] [address] [id number] [address] [place] [address], [place] [address] March, [facility] [address] [id number] [address] [place] [address], [place] [address] Feb, [facility] [address] [id number] [address] [place] [address], [place] [address] Feb, [facility] [address] [id number] [address] [place] [address], [place] [address] Jan, [facility] [address] [id number] [address] [place] [address], [place] [address] Jan, [facility] [address] [id number] [address] [place] [address], [place] [address] Jan, [facility] [address] [id number] [address] [place] [address], [place] [address] Dec, [facility] [address] [id number] [address] [place] [address], [place] [address] 16 Dec, 2011 [facility] [address] [id number] [address] [place] [address], [place] [address] Nov, [facility] [address] [id number] [address] [place] [address], [place] [address] Nov, [facility] [address] [id number] [address] [place] [address], [place] [address] 13 Nov, 2011 [facility] [address] [id number] [address] [place] [address], [place] [address] Nov, [facility] [address] [id number] [address] [place] [address], [place] [address] Nov, [facility] [address] [id number] [address] [place] [address], [place] [address] Oct, [facility] [address] [id number] [address] [place] [address], [place] [address] Oct, [facility] [address] [id number] [address] [place] [address], [place] [address] 05 Oct, 2011 [facility] [address] [id number] [address] [place] [address], [place] [address] Oct, [facility] [address] [id number] [address] [place] [address], [place] [address] Sep, [facility] [address] [id number] [address] [place] [address], [place] [address] Sep, [facility] [address] [id number] [address] [place] [address], [place] [address] 17 Sep, 2011 [facility] [address] [id number] [address] [place] [address], [place] [address] 13 Aug, 2011 [facility] [address] [id number] [address] [place] [address], [place] [address] 31 Oct, 2010 [facility] [address] [facility] [id number] [address] [place] [address] Oct, [facility] [address] [facility] [id number] [address] [place] [address] Oct, [facility] [address] [facility] [id number] [address] [place] [address] Oct, IMMUNIZATIONS No Known Immunizations SOCIAL HISTORY [...]
--- OUTSIDE RECORDS SUMMARY | 2020-04-25 14:45 | XMS REPORT ---
Author Author Ronna Blackmon Doctor Organization [facility] Address Unknown Phone Unavailable Care Team Providers Care Senior Director Of Strategy Name Role Phone Migration, Doctor Unavailable Unavailable PROBLEMS Type Condition ICD9-CM Code [id number] Code Onset Dates Condition S tatus SNOMED Code Problem Posttraumatic stress disorder F43.10 Active 46141744 Problem Anxiety F41.9 Active 50488175 Problem Bipolar disorder, unspecified F31.9 Active 00122252 Problem Attention deficit hyperactivity disorder (ADHD), combi dylon type F90.2 Active [id number] ALLERGIES No Information ENCOUNTERS Encounter Location Date Diagnosis [place] [address] [facility] [id number] [address] [place] [address] Apr, [place] [address] [facility] [id number] [address] [place] [address] Feb, Bipolar disorder, unspecifie d F31.9 [place] [address] [facility] [id number] [address] [place] [address] Feb, Bipolar disorder, unspecifie d F31.9 ; Posttraumatic stress disorder F43.10 ; Attention deficit hyperactivity disorder (ADHD), combined type F90.2 and Anxiety F41.9 [place] [address] [facility] [id number] [address] [place] [address] Feb, Bipolar disorder, unspecifie d F31.9 [facility] [address] [facility] [id number] [address] [place] [address] Jan, [facility] [address] [facility] [id number] [address] [place] [address] Jan, Bipolar disorder, unspecifie d F31.9 [facility] [address] [facility] [id number] [address] [place] [address] Dec, [place] [address] [facility] [id number] [address] [place] [address] Dec, Bipolar disorder, unspecifie d F31.9 ; Posttraumatic stress disorder F43.10 ; Attention deficit hyperactivity disorder (ADHD), combined type F90.2 and Anxiety F41.9 [facility] [address] [place] [id number] [address] [place] [address] 18 Dec, 2019 Bipolar disorder, unspecifie d F31.9 [facility] [address] [place] [id number] [place] [address] 17 Dec, 2019 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 requiring routine preventive dental care K08.9 [facility] [address] [place] [id number] [address] [place] [phone] 05 Dec, 2019 Bipolar disorder, unspecifie d F31.9 [facility] [address] [place] [id number] [address] [place] [address] 13 Nov, 2019 Post-nasal drip R09.82 [facility] [address] [address] 07 Nov, 2019 Bipolar disorder, unspecifie d F31.9 [facility] [address] [address] Oct, [facility] [address] [place] [id number] [address] [place] [address] Oct, Bipolar disorder, unspecifie d F31.9 [facility] [address] [place] [id number] [address] [place] [address] Sep, Bipolar disorder, unspecifie d F31.9 ; Attention deficit hyperactivity disorder (ADHD), combined type F90.2 and Posttraumatic stress disorder F43.10 [facility] [address] [place] [id number] [address] [place] [address] Sep, Bipolar disorder, unspecifie d F31.9 [facility] [address] [facility] [id number] [place] [address] Sep, Dental examination Z01.20 an d Oral health maintenance status requiring routine preventive dental care K08.9 [facility] [address] [id number] [address] [place] [address] Aug, Bipolar disorder, unspecifie d F31.9 [facility] [address] [facility] [id number] [address] [place] [address] Jul, Bipolar disorder, unspecifie d F31.9 [facility] [address] [facility] [id number] [address] [place] [address] Jun, Bipolar disorder, unspecifie d F31.9 ; Posttraumatic stress disorder F43.10 ; Attention deficit hyperactivity disorder (ADHD), combined type F90.2 and Other occupational therapist aide (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 Z79.899 [facility] [address] [id number] [address] May, Caries K02.9 [facility] [address] [id number], [place] [address] May, Caries K02.9 [facility] [id number] [place] [address] May, 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 requiring routine preventive dental care K08.9 [facility] [address] [facility] [id number] [address] [place] [address] Apr, Bipolar disorder, unspecifie d F31.9 [facility] [address] [facility] [id number] [address] [place] [address] Apr, [facility] [address] [facility] [id number] [address] [place] [address] Apr, Bipolar disorder, unspecifie d F31.9 [facility] [address] [facility] [id number] [address] [place] [address] Apr, Bipolar disorder, unspecifie d F31.9 [facility] [address] [facility] [id number] [address] [place] [address] Apr, [facility] [address] [facility] [id number] [address] [place] [address] March, Bipolar disorder, unspecifie d F31.9 ; Attention deficit hyperactivity disorder (ADHD), combined type F90.2 ; Posttraumatic stress disorder F43.10 and Other occupational therapist aide (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 Z79.899 [facility] [address] [id number], [place] [address] March, Dental examination Z01.20 and Caries K02 .9 [facility] [address] [id number] [address] [place] [address] Feb, Bipolar disorder, unspecifie d F31.9 [facility] [address] [id number] [address] [place] [address] Jan, Oral health maintenance stat requiring routine preventive dental care K08.9 ; Dental examination Z01.20 and Caries K02.9 [facility] [address] [id number] [address] [place] [address] Jan, Bipolar disorder, unspecifie d F31.9 [facility] [address] [id number] [address] [place] [address] Dec, Bipolar disorder, unspecifie d F31.9 ; Attention deficit hyperactivity disorder (ADHD), combined type F90.2 and Posttraumatic stress disorder F43.10 [facility] [address] [id number] [address] [place] [address] Oct, Sore throat J02.9 [facility] [address] [id number] [address] [place] [address] Oct, [facility] [address] [id number] [address] [place] [address] Oct, Bipolar disorder, unspecifie d F31.9 [facility] [address] [id number] [address] [place] [id number] Sep, Oral health maintenance stat requiring routine preventive dental care K08.9 [facility] [address] [id number] [address] [place] [address] Sep, Bipolar disorder, unspecifie d F31.9 ; Attention deficit hyperactivity disorder (ADHD), combined type F90.2 and Posttraumatic stress disorder F43.10 [facility] [address] [id number] [address] [place] [address] Aug, Lymphadenopathy of left cerv ical region R59.0 [facility] [address] [facility] [id number] [address] [place] [address] Aug, Encounter for immunization Z 23 [facility] [address] [facility] [id number] [address] [place] [address] Aug, Other fci (current) dr delacruz therapy Z79.899 [facility] [address] [facility] [id number] [address] [place] [address] Jul, Bipolar disorder, unspecifie d F31.9 [facility] [address] [facility] [id number] [address] [place] [address] Jun, Bipolar disorder, unspecifie d F31.9 [facility] [address] [facility] [id number] [address] [place] [address] Jun, [facility] [address] [facility] [id number] [address] [place] [address] Jun, Bipolar disorder, unspecifie d F31.9 ; Attention deficit hyperactivity disorder (ADHD), combined type F90.2 ; Posttraumatic stress disorder F43.10 and Other fci (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 Z79.899 [facility] [address] [id number] [address] [place] [id number] Jun, Dental examination Z01.20 [facility] [address] [facility] [id number] [address] [place] [address] May, [facility] [address] [facility] [id number] [address] [place] [address] Apr, Bipolar disorder, unspecifie d F31.9 [facility] [address] [facility] [id number] [address] [place] [address] March, Bipolar disorder, unspecifie d F31.9 ; Attention deficit hyperactivity disorder (ADHD), combined type F90.2 and Posttraumatic stress disorder F43.10 [facility] [address] [facility] [id number] [address] [place] [address] Feb, [facility] [address] [facility] [id number] [address] [place] [address] Feb, Insect bite (nonvenomous), l eft knee, initial encounter S80.262A and Bitten or stung by nonvenomous insect and other nonvenomous arthropods, initial encounter W57.XXXA [facility] [address] [facility] [id number] [address] [place] [address] Feb, Bipolar disorder, unspecifie d F31.9 [facility] [address] [id number] Feb, Dental examination Z01.20 [facility] [address] [place] [id number] [address] [place] [address] Feb, Bipolar disorder, unspecifie d F31.9 ; Attention deficit hyperactivity disorder (ADHD), combined type F90.2 and Posttraumatic stress disorder F43.10 [facility] [address] [place] [id number] [address] [place] [address] [id number] Feb, Dental examination Z01.20 [facility] [address] [place] [id number] [address] [place] [address] Jan, Bipolar disorder, unspecifie d F31.9 [facility] [address] [facility] [id number] [address] [place] [address] Jan, Attention deficit hyperactiv ity disorder (ADHD), combined type F90.2 [facility] [address] [facility] [id number] [address] [place] [address] Dec, Posttraumatic stress disorde r F43.10 [facility] [address] [place] [id number] [address] [place] [address] 12 Dec, 2017 Posttraumatic stress disorde r F43.10 [facility] [address] [id number] [address] [place] [address] [id number] Nov, Dental examination Z01.20 [facility] [address] [id number] [address] [place] [address] [id number] Nov, Encounter for dental exam an d cleaning w/o abnormal findings Z01.20 [facility] [address] [id number] [address] [place] [address] [id number] Nov, Dental examination Z01.20 [facility] [address] [id number] [address] [place] [address] Sep, Bipolar disorder, unspecifie d F31.9 ; Posttraumatic stress disorder F43.10 and Attention deficit hyperactivity disorder (ADHD), combined type F90.2 [facility] [address] [facility] [id number] [address] [place] [phone] 09 Aug, 2017 Posttraumatic stress disorde r F43.10 [facility] [address] [facility] [id number] [address] [place] [address] 15 Jul, 2017 Other occupational therapist aide (current) dr ug therapy Z79.899 [facility] [address] [facility] [id number] [address] [place] [address] Jul, Bipolar disorder, unspecifie d F31.9 ; Attention deficit hyperactivity disorder (ADHD), combined type F90.2 and Posttraumatic stress disorder F43.10 [facility] [address] [id number] [address] [place] [address] Jun, Bipolar disorder, unspecifie d F31.9 ; Posttraumatic stress disorder F43.10 ; Attention deficit hyperactivity disorder (ADHD), combined type F90.2 and Other fci (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 Z79.899 [facility] [address] [facility] [id number] [address] [place] [address] March, Bipolar disorder, unspecifie d F31.9 ; Posttraumatic stress disorder F43.10 and Attention deficit hyperactivity disorder (ADHD), combined type F90.2 [facility] [address] [id number] [address] [place] [address], [place] [address] Dec, Bipolar disorder, unspecifie d F31.9 ; Posttraumatic stress disorder F43.10 and Attention deficit hyperactivity disorder (ADHD), combined type F90.2 [facility] [address] [id number] [address] [place] [address], [place] [address] Dec, [facility] [address] [id number] [address] [place] [address], [place] [address] Sep, [facility] [address] [id number] [address] [place] [address], [place] [address] Aug, Bipolar disorder, unspecifie d F31.9 ; Posttraumatic stress disorder F43.10 and Attention deficit hyperactivity disorder (ADHD), combined type F90.2 [facility] [address] [id number] [address] [place] [address], [place] [address] Jun, [facility] [address] [id number] [address] [place] [address] March, [facility] [address] [id number] [address] [place] [address], [place] [address] Feb, Bipolar disorder, unspecifie d F31.9 ; Attention deficit hyperactivity disorder (ADHD), combined type F90.2 and Posttraumatic stress disorder F43.10 [facility] [address] [id number] [address] [place] [address] Feb, [facility] [address] [id number] [address] [place] [address] Feb, [facility] [address] [id number] [address] [place] [address], [place] [address] Feb, [facility] [address] [id number] [address] [place] [address], [place] [address] Jan, [facility] [address] [id number] [address] [place] [address] [id number] Dec, Dental examination Z01.20 [facility] [address] [facility] [id number] [address] [place] [address] Sep, [facility] [address] [facility] [id number] [address] [place] [address] Sep, Attention deficit hyperactiv ity disorder (ADHD), combined type F90.2 ; Posttraumatic stress disorder F43.10 and Bipolar disorder, unspecified F31.9 [facility] [address] [facility] [id number] [address] [place] [address] Aug, [facility] [address] [facility] [id number] [address] [place] [address] Aug, [facility] [address] [facility] [id number] [address] [place] [address] Jul, [facility] [address] [facility] [id number] [address] [place] [address] May, Bipolar disorder, unspecifie d 296.80 ; 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.00 and Posttraumatic stress disorder 309.81 [facility] [address] [facility] [id number] [address] [place] [address] May, [facility] [address] [facility] [id number] [address] [place] [address] May, [facility] [address] [facility] [id number] [address] [place] [address] May, [facility] [address] [facility] [id number] [address] [place] [address] Apr, [facility] [address] [facility] [id number] [address] [place] [address] Apr, [facility] [address] [facility] [id number] [address] [place] [address] Apr, [facility] [address] [facility] [id number] [address] [place] [address] March, [facility] [address] [id number] [facility] [place] [address] March, [facility] [address] [id number] [address] [place] [address], [place] [address] March, [facility] [address] [id number] [address] [place] [address], [place] [address] Feb, [facility] [address] [id number] [address] [place] [address], [place] [address] Feb, [facility] [address] [id number] [address] [place] [address], [place] [address] Jan, [facility] [address] [id number] [address] [place] [address], [place] [address] Jan, [facility] [address] [id number] [address] [place] [address], [place] [address] Jan, [facility] [address] [id number] [address] [place] [address], [place] [address] Jan, [facility] [address] [id number] [address] [place] [address], [place] [address] Jan, [facility] [address] [id number] [address] [place] [address], [place] [address] Jan, [facility] [address] [id number] [address] [place] [address], [place] [address] Jan, [facility] [address] [id number] [address] [place] [address], [place] [address] Jan, [facility] [address] [id number] [address] [place] [address], [place] [address] Jan, [facility] [address] [id number] [address] [place] [address], [place] [address] Jan, [facility] [address] [id number] [address] [place] [address], [place] [address] Dec, [facility] [address] [id number] [address] [place] [address], [place] [address] Dec, [facility] [address] [id number] [address] [place] [address], [place] [address] Dec, [facility] [address] [id number] [address] [place] [address], [place] [address] Dec, [facility] [address] [id number] [address] [place] [address], [place] [address] Oct, [facility] [address] [id number] [address] [place] [address], [place] [address] Oct, [facility] [address] [id number] [address] [place] [address], [place] [address] Oct, [facility] [address] [id number] [address] [place] [address], [place] [address] Oct, [facility] [address] [id number] [address] [place] [address], [place] [address] Oct, [facility] [address] [id number] [address] [place] [address], [place] [address] Oct, [facility] [address] [id number] [address] [place] [address], [place] [address] Oct, [facility] [address] [id number] [address] [place] [address], [place] [address] Sep, [facility] [address] [id number] [address] [place] [address], [place] [address] Sep, [facility] [address] [id number] [address] [place] [address], [place] [address] Sep, [facility] [address] [id number] [address] [place] [address], [place] [address] Sep, [facility] [address] [id number] [address] [place] [address], [place] [address] Sep, [facility] [address] [id number] [address] [place] [address], [place] [address] Sep, [facility] [address] [id number] [address] [place] [address], [place] [address] Sep, [facility] [address] [id number] [address] [place] [address], [place] [address] Sep, [facility] [address] [id number] [address] [place] [address], [place] [address] Aug, [facility] [address] [id number] [address] [place] [address], [place] [address] Aug, [facility] [address] [id number] [address] [place] [address], [place] [address] Aug, [facility] [address] [id number] [address] [place] [address], [place] [address] Aug, [facility] [address] [id number] [address] [place] [address], [place] [address] Jul, [facility] [address] [id number] [address] [place] [address], [place] [address] Jul, [facility] [address] [id number] [address] [place] [address], [place] [address] Jul, [facility] [address] [id number] [address] [place] [address], [place] [address] Jul, [facility] [address] [id number] [address] [place] [address], [place] [address] Jun, [facility] [address] [id number] [address] [place] [address], [place] [address] Jun, [facility] [address] [id number] [address] [place] [address], [place] [address] Jun, [facility] [address] [id number] [address] [place] [address], [place] [address] Jun, [facility] [address] [id number] [address] [place] [address], [place] [address] May, [facility] [address] [id number] [address] [place] [address], [place] [address] May, [facility] [facility] [address] [id number] [address] [place] [address], [place] [address] May, [facility] [address] [id number] [address] [place] [address], [place] [address] May, [facility] [address] [id number] [address] [place] [address], [place] [address] Apr, [facility] [address] [id number] [address] [place] [address], [place] [address] Apr, [facility] [address] [id number] [address] [place] [address], [place] [address] Apr, [facility] [address] [id number] [address] [place] [address], [place] [address] Apr, [facility] [address] [id number] [address] [place] [address], [place] [address] Apr, [facility] [address] [id number] [address] [place] [address], [place] [address] Apr, [facility] [address] [id number] [address] [place] [address], [place] [address] Apr, [facility] [address] [id number] [address] [place] [address], [place] [address] Apr, [facility] [address] [id number] [address] [place] [address], [place] [address] Apr, [facility] [address] [id number] [address] [place] [address], [place] [address] Apr, [facility] [address] [id number] [address] [place] [address], [place] [address] Apr, [facility] [address] [id number] [address] [place] [address], [place] [address] Apr, [facility] [address] [id number] [address] [place] [address], [place] [address] Apr, [facility] [address] [id number] [address] [place] [address], [place] [address] March, [facility] [address] [id number] [address] [place] [address], [place] [address] March, [facility] [address] [id number] [address] [place] [address], [place] [address] March, [facility] [address] [id number] [address] [place] [address], [place] [address] March, [facility] [address] [id number] [address] [place] [address], [place] [address] Jan, [facility] [address] [id number] [address] [place] [address], [place] [address] Jan, [facility] [address] [id number] [address] [place] [address], [place] [address] Jan, [facility] [address] [id number] [address] [place] [address], [place] [address] Jan, [facility] [address] [id number] [address] [place] [address], [place] [address] Jan, [facility] [address] [id number] [address] [place] [address], [place] [address] Jan, [facility] [address] [id number] [address] [place] [address], [place] [address] Dec, [facility] [address] [id number] [address] [place] [address], [place] [address] Dec, [facility] [address] [id number] [address] [place] [address], [place] [address] Dec, [facility] [address] [id number] [address] [place] [address], [place] [address] Dec, [facility] [address] [id number] [address] [place] [address], [place] [address] Nov, [facility] [address] [id number] [address] [place] [address], [place] [address] Nov, [facility] [address] [id number] [address] [place] [address], [place] [address] Nov, [facility] [address] [id number] [address] [place] [address], [place] [address] Nov, [facility] [address] [id number] [address] [place] [address], [place] [address] Oct, [facility] [address] [id number] [address] [place] [address], [place] [address] Oct, [facility] [address] [id number] [address] [place] [address], [place] [address] Oct, [facility] [address] [id number] [address] [place] [address], [place] [address] Oct, [facility] [address] [id number] [address] [place] [address], [place] [address] Oct, [facility] [address] [id number] [address] [place] [address], [place] [address] Oct, [facility] [address] [id number] [address] [place] [address], [place] [address] Oct, [facility] [address] [id number] [address] [place] [address], [place] [address] Oct, [facility] [address] [id number] [address] [place] [address], [place] [address] Sep, [facility] [address] [id number] [address] [place] [address], [place] [address] Sep, [facility] [address] [id number] [address] [place] [address], [place] [address] Jul, [facility] [address] [id number] [address] [place] [address], [place] [address] 12 Jul, 2013 [facility] [address] [id number] [address] [place] [address], [place] [address] 09 Jul, 2013 [facility] [address] [id number] [address] [place] [address], [place] [address] Jul, [facility] [address] [id number] [address] [place] [address], [place] [address] Jun, [facility] [address] [id number] [address] [place] [address], [place] [address] Jun, [facility] [address] [id number] [address] [place] [address], [place] [address] May, [facility] [address] [id number] [address] [place] [address], [place] [address] Apr, [facility] [address] [id number] [address] [place] [address], [place] [address] Apr, [facility] [address] [id number] [address] [place] [address], [place] [address] Apr, [facility] [address] [id number] [address] [place] [address], [place] [address] March, [facility] [address] [id number] [address] [place] [address], [place] [address] March, [facility] [address] [id number] [address] [place] [address], [place] [address] Feb, [facility] [address] [id number] [address] [place] [address], [place] [address] Jan, [facility] [address] [id number] [address] [place] [address], [place] [address] Jan, [facility] [address] [id number] [address] [place] [address], [place] [address] Dec, [facility] [address] [id number] [address] [place] [address], [place] [address] Dec, [facility] [address] [id number] [address] [place] [address], [place] [address] Nov, [facility] [address] [id number] [address] [place] [address], [place] [address] Nov, [facility] [address] [id number] [address] [place] [address], [place] [address] Nov, [facility] [address] [id number] [address] [place] [address], [place] [address] 18 Oct, 2012 [facility] [address] [id number] [address] [place] [address], [place] [address] 18 Oct, 2012 [facility] [address] [id number] [address] [place] [address], [place] [address] Oct, [facility] [address] [id number] [address] [place] [address], [place] [address] Oct, [facility] [address] [id number] [address] [place] [address], [place] [address] Sep, [facility] [address] [id number] [address] [place] [address], [place] [address] 29 Sep, 2012 [facility] [address] [id number] [address] [place] [address], [place] [address] Sep, [facility] [address] [id number] [address] [place] [address], [place] [address] 23 Sep, 2012 [facility] [address] [id number] [address] [place] [address], [place] [address] 15 Sep, 2012 [facility] [address] [id number] [address] [place] [address], [place] [address] 15 Sep, 2012 [facility] [address] [id number] [address] [place] [address], [place] [address] 02 Aug, 2012 [facility] [address] [id number] [address] [place] [address], [place] [address] 26 Jul, 2012 [facility] [address] [id number] [address] [place] [address], [place] [address] 19 Jul, 2012 [facility] [address] [id number] [address] [place] [address], [place] [address] 18 Jul, 2012 [facility] [address] [id number] [address] [place] [address], [place] [address] Jul, [facility] [address] [id number] [address] [place] [address], [place] [address] Jun, [facility] [address] [id number] [address] [place] [address], [place] [address] Jun, [facility] [address] [id number] [address] [place] [address], [place] [address] Jun, [facility] [address] [id number] [address] [place] [address], [place] [address] Jun, [facility] [address] [id number] [address] [place] [address], [place] [address] May, [facility] [address] [id number] [address] [place] [address], [place] [address] Apr, [facility] [address] [id number] [address] [place] [address], [place] [address] March, [facility] [address] [id number] [address] [place] [address], [place] [address] March, [facility] [address] [id number] [address] [place] [address], [place] [address] March, [facility] [address] [id number] [address] [place] [address], [place] [address] Feb, [facility] [address] [id number] [address] [place] [address], [place] [address] Feb, [facility] [address] [id number] [address] [place] [address], [place] [address] Jan, [facility] [address] [id number] [address] [place] [address], [place] [address] Jan, [facility] [address] [id number] [address] [place] [address], [place] [address] Jan, [facility] [address] [id number] [address] [place] [address], [place] [address] Dec, [facility] [address] [id number] [address] [place] [address] 16 Dec, 2011 [facility] [address] [id number] [address] [place] [address], [place] [address] Nov, [facility] [address] [id number] [address] [place] [address], [place] [address] Nov, [facility] [address] [id number] [address] [place] [address], [place] [address] Nov, [facility] [address] [id number] [address] [place] [address], [place] [address] Nov, [facility] [address] [id number] [address] [place] [address], [place] [address] Nov, [facility] [address] [id number] [address] [place] [address], [place] [address] Oct, [facility] [address] [id number] [address] [place] [address], [place] [address] Oct, [facility] [address] [id number] [address] [place] [address], [place] [address] 05 Oct, 2011 [facility] [address] [id number] [address] [place] [address], [place] [address] 02 Oct, 2011 [facility] [address] [id number] [address] [place] [address], [place] [address] Sep, [facility] [address] [id number] [address] [place] [address], [place] [address] Sep, [facility] [address] [id number] [address] [place] [address], [place] [address] 17 Sep, 2011 [facility] [address] [id number] [address] [place] [address], [place] [address] 13 Aug, 2011 [facility] [address] [id number] [address] [place] [address], [place] [address] 31 Oct, 2010 [facility] [address] [id number] [address] [place] [address], [place] [address] 08 Oct, 2010 [facility] [address] [facility] [id number] [address] [address] Oct, [facility] [address] [facility] [id number] [address] [place] [address] Oct, IMMUNIZATIONS No Known Immunizations SOCIAL HISTORY [...]
--- OUTSIDE RECORDS SUMMARY | 2020-04-25 14:46 | XMS REPORT ---
Author Author Ronna Barnes Organization [facility] Address Unknown Care Team Providers Care Incident Response Specialist Name Role Phone CHEYENNE Barnes Unavailable PROBLEMS Type Condition ICD9-CM Code LQL77-IB Code Onset Dates Condition S tatus SNOMED Code Problem Posttraumatic stress disorder F43.10 Active 49399876 Problem Anxiety F41.9 Active 25869266 Problem Bipolar disorder, unspecified F31.9 Active [id number] Problem Attention deficit hyperactivity disorder (ADHD), combi dylon type F90.2 Active [id number] ALLERGIES No Information ENCOUNTERS Encounter Location Date Diagnosis [facility] [address] [facility] [id number] [address] [place] [phone] Apr, [facility] [address] [facility] [id number] [address] [place] [phone] Feb, Bipolar disorder, unspecifie d F31.9 ; Posttraumatic stress disorder F43.10 ; Attention deficit hyperactivity disorder (ADHD), combined type F90.2 and Anxiety F41.9 [facility] [address] [facility] [id number] [address] [place] [phone] Feb, Bipolar disorder, unspecifie d F31.9 [facility] [id number] [place] [phone] Jan, [facility] [address] [facility] [id number] [address] [place] [phone] Jan, [facility] [address] [facility] [id number] [address] [place] [phone] Jan, Bipolar disorder, unspecifie d F31.9 [facility] [address] [facility] [id number] [address] [place] [address] Dec, [facility] [address] [facility] [id number] [address] [place] [id number] Dec, Bipolar disorder, unspecifie d F31.9 ; Posttraumatic stress disorder F43.10 ; Attention deficit hyperactivity disorder (ADHD), combined type F90.2 and Anxiety F41.9 [facility] [address] [facility] [id number] [address] [place] [id number] 18 Dec, 2019 Bipolar disorder, unspecifie d F31.9 [facility] [address] [place] [id number] [place] [id number] 17 Dec, 2019 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 requiring routine preventive dental care K08.9 [facility] [address] [facility] [id number] [address] [place] [id number] 05 Dec, 2019 Bipolar disorder, unspecifie d F31.9 [facility] [address] [facility] [id number] [address] [place] [address] Nov, Post-nasal drip R09.82 [facility] [address] [facility] [id number] [address] [place] [phone] Nov, Bipolar disorder, unspecifie d F31.9 [facility] [address] [facility] [id number] [address] [place] [phone] Oct, [facility] [address] [facility] [id number] [address] [place] [address] Oct, Bipolar disorder, unspecifie d F31.9 [facility] [address] [facility] [id number] [address] [place] [id number] Sep, Bipolar disorder, unspecifie d F31.9 ; Attention deficit hyperactivity disorder (ADHD), combined type F90.2 and Posttraumatic stress disorder F43.10 [facility] [address] [facility] [id number] [address] [place] [address] Sep, Bipolar disorder, unspecifie d F31.9 [facility] [address] [facility] [id number] [place] [phone] Sep, Dental examination Z01.20 an d Oral health maintenance status requiring routine preventive dental care K08.9 [facility] [address] [facility] [id number] [address] [place] [id number] Aug, Bipolar disorder, unspecifie d F31.9 [facility] [address] [facility] [id number] [address] [place] [address] Jul, Bipolar disorder, unspecifie d F31.9 [facility] [address] [facility] [id number] [address] [place] [address] Jun, Bipolar disorder, unspecifie d F31.9 ; Posttraumatic stress disorder F43.10 ; Attention deficit hyperactivity disorder (ADHD), combined type F90.2 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 [facility] [address] [id number] [address] May, Caries K02.9 [facility] [address] [id number] [place] [address] May, Caries K02.9 [facility] [address] [facility] [id number] [place] [phone] May, Oral health maintenance stat requiring routine preventive dental care K08.9 [facility] [address] [facility] [id number] [address] [place] [address] Apr, Bipolar disorder, unspecifie d F31.9 [facility] [address] [facility] [id number] [address] [place] [address] Apr, [facility] [address] [facility] [id number] [address] [place] [id number] Apr, Bipolar disorder, unspecifie d F31.9 [facility] [address] [facility] [id number] [address] [place] [address] Apr, Bipolar disorder, unspecifie d F31.9 [facility] [address] [facility] [id number] [address] [place] [id number] Apr, [facility] [address] [id number] [address] [place] [address] March, Bipolar disorder, unspecifie d F31.9 ; Attention deficit hyperactivity disorder (ADHD), combined type F90.2 ; Posttraumatic stress disorder F43.10 and Other detention (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 Z79.[id number] [place] [phone] March, Dental examination Z01.20 and Caries K02 .9 [facility] [address] [id number] [address] [place] [id number] Feb, Bipolar disorder, unspecifie d F31.9 [facility] [address] [id number] [address] [place] [id number] Jan, 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 requiring routine preventive dental care K08.9 ; Dental examination Z01.20 and Caries K02.9 [facility] [address] [id number] [address] [place] [address] Jan, Bipolar disorder, unspecifie d F31.9 [facility] [address] [id number] [address] [place] [phone] Dec, Bipolar disorder, unspecifie d F31.9 ; Attention deficit hyperactivity disorder (ADHD), combined type F90.2 and Posttraumatic stress disorder F43.10 [facility] [address] [id number] [address] [place] [address] Oct, Sore throat J02.9 [facility] [address] [id number] [address] [place] [phone] Oct, [facility] [address] [facility] [id number] [address] [place] [id number] Oct, Bipolar disorder, unspecifie d F31.9 [facility] [address] [id number] [address] [place] [id number] Sep, 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 requiring routine preventive dental care K08.9 [facility] [address] [id number] [address] [place] [id number] Sep, Bipolar disorder, unspecifie d F31.9 ; Attention deficit hyperactivity disorder (ADHD), combined type F90.2 and Posttraumatic stress disorder F43.10 [facility] [address] [id number] [address] [place] [address] Aug, Lymphadenopathy of left cerv ical region R59.0 [facility] [address] [id number] [address] [place] [phone] Aug, Encounter for immunization Z 23 [facility] [address] [facility] [id number] [address] [place] [address] Aug, Other detention (current) dr nubia therapy Z79.899 [facility] [address] [facility] [id number] [address] [place] [address] Jul, Bipolar disorder, unspecifie d F31.9 [facility] [address] [facility] [id number] [address] [place] [id number] Jun, Bipolar disorder, unspecifie d F31.9 [facility] [address] [facility] [id number] [address] [place] [id number] Jun, [facility] [address] [id number] [address] [place] [address] Jun, Bipolar disorder, unspecifie d F31.9 ; Attention deficit hyperactivity disorder (ADHD), combined type F90.2 ; Posttraumatic stress disorder F43.10 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 [facility] [address] [id number] [address] [place] [id number] Jun, Dental examination Z01.20 [facility] [address] [id number] [address] [place] [id number] May, [facility] [address] [facility] [id number] [address] [place] [id number] Apr, Bipolar disorder, unspecifie d F31.9 [facility] [address] [facility] [id number] [address] [place] [address] March, Bipolar disorder, unspecifie d F31.9 ; Attention deficit hyperactivity disorder (ADHD), combined type F90.2 and Posttraumatic stress disorder F43.10 [facility] [address] [facility] [id number] [address] [place] [phone] Feb, [facility] [address] [facility] [id number] [address] [place] [address] Feb, Insect bite (nonvenomous), l eft knee, initial encounter S80.262A and Bitten or stung by nonvenomous insect and other nonvenomous arthropods, initial encounter W57.XXXA [facility] [address] [facility] [id number] [address] [place] [phone] Feb, Bipolar disorder, unspecifie d F31.9 [facility] [address] [id number] [address] [place] [id number] Feb, Dental examination Z01.20 [facility] [address] [facility] [id number] [address] [place] [phone] Feb, Bipolar disorder, unspecifie d F31.9 ; Attention deficit hyperactivity disorder (ADHD), combined type F90.2 and Posttraumatic stress disorder F43.10 [facility] [address] [id number] [address] [place] [id number] Feb, Dental examination Z01.20 [facility] [address] [facility] [id number] [address] [place] [address] Jan, Bipolar disorder, unspecifie d F31.9 [facility] [address] [facility] [id number] [address] [place] [id number] Jan, Attention deficit hyperactiv ity disorder (ADHD), combined type F90.2 [facility] [address] [facility] [id number] [address] [place] [phone] Dec, Posttraumatic stress disorde r F43.10 [facility] [address] [id number] [address] [place] [id number] 12 Dec, 2017 Posttraumatic stress disorde r F43.10 [facility] [address] [id number] [address] [place] [id number] Nov, Dental examination Z01.20 [facility] [address] [id number] [address] [place] [id number] Nov, Encounter for dental exam an d cleaning w/o abnormal findings Z01.20 [facility] [address] [id number] [address] [place] [id number] Nov, Dental examination Z01.20 [facility] [address] [facility] [id number] [address] [place] [id number] Sep, Bipolar disorder, unspecifie d F31.9 ; Posttraumatic stress disorder F43.10 and Attention deficit hyperactivity disorder (ADHD), combined type F90.2 [facility] [address] [facility] [id number] [address] [place] [id number] 09 Aug, 2017 Posttraumatic stress disorde r F43.10 [facility] [address] [facility] [id number] [address] [place] [phone] 15 Jul, 2017 Other detention (current) dr ug therapy Z79.899 [facility] [address] [facility] [id number] [address] [place] [id number] Jul, Bipolar disorder, unspecifie d F31.9 ; Attention deficit hyperactivity disorder (ADHD), combined type F90.2 and Posttraumatic stress disorder F43.10 [facility] [address] [id number] [address] [place] [phone] Jun, Bipolar disorder, unspecifie d F31.9 ; Posttraumatic stress disorder F43.10 ; Attention deficit hyperactivity disorder (ADHD), combined type F90.2 and Other detention (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 Z79.899 [facility] [address] [facility] [id number] [address] [place] [phone] March, Bipolar disorder, unspecifie d F31.9 ; Posttraumatic stress disorder F43.10 and Attention deficit hyperactivity disorder (ADHD), combined type F90.2 [facility] [address] [id number] [address] [place] [id number] Dec, Bipolar disorder, unspecifie d F31.9 ; Posttraumatic stress disorder F43.10 and Attention deficit hyperactivity disorder (ADHD), combined type F90.2 [facility] [address] [id number] [address] [place] [phone] Dec, [facility] [address] [id number] [address] [place] [phone] Sep, [facility] [address] [id number] [address] [place] [address] Aug, Bipolar disorder, unspecifie d F31.9 ; Posttraumatic stress disorder F43.10 and Attention deficit hyperactivity disorder (ADHD), combined type F90.2 [facility] [address] [id number] [address] [place] [phone] Jun, [facility] [address] [id number] [address] [place] [id number] March, [facility] [address] [id number] [address] [place] [id number] Feb, Bipolar disorder, unspecifie d F31.9 ; Attention deficit hyperactivity disorder (ADHD), combined type F90.2 and Posttraumatic stress disorder F43.10 [facility] [address] [id number] [address] [place] [id number] Feb, [facility] [address] [id number] [address] [place] [address], [place] [address] Feb, [facility] [address] [id number] [address] [place] [phone] Feb, [facility] [address] [id number] [address] [place] [phone] Jan, [facility] [address] [id number] [address] [place] [id number] Dec, Dental examination Z01.20 [facility] [address] [facility] [id number] [address] [place] [phone] Sep, [facility] [address] [facility] [id number] [address] [place] [id number] Sep, Attention deficit hyperactiv ity disorder (ADHD), combined type F90.2 ; Posttraumatic stress disorder F43.10 and Bipolar disorder, unspecified F31.9 [facility] [address] [facility] [id number] [address] [place] [id number] Aug, [facility] [address] [facility] [id number] [address] [place] [id number] Aug, [facility] [address] [facility] [id number] [address] [place] [id number] Jul, [facility] [address] [facility] [id number] [address] [place] [phone] May, Bipolar disorder, unspecifie d 296.80 ; 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.00 and Posttraumatic stress disorder 309.81 [facility] [address] [facility] [id number] [address] [place] [id number] May, [facility] [address] [facility] [id number] [address] [place] [id number] May, [facility] [address] [facility] [id number] [address] [place] [id number] May, [facility] [address] [facility] [id number] [address] [place] [id number] Apr, [facility] [address] [facility] [id number] [address] [place] [id number] Apr, [facility] [address] [facility] [id number] [address] [place] [id number] Apr, [facility] [address] [facility] [id number] [address] [place] [id number] March, [facility] [address] [id number] [address] [place] [address], [place] [address] March, [facility] [address] [id number] [address] [place] [address], [place] [address] March, [facility] [address] [id number] [address] [place] [address], [place] [address] Feb, [facility] [address] [id number] [address] [place] [address], [place] [address] Feb, [facility] [address] [id number] [address] [place] [address], [place] [address] Jan, [facility] [address] [id number] [address] [place] [address], [place] [address] Jan, [facility] [address] [id number] [address] [place] [address], [place] [address] Jan, [facility] [address] [id number] [address] [place] [address], [place] [address] Jan, [facility] [address] [id number] [address] [place] [address], [place] [address] Jan, [facility] [address] [id number] [address] [place] [address], [place] [address] Jan, [facility] [address] [id number] [address] [place] [address], [place] [address] Jan, [facility] [address] [id number] [address] [place] [address], [place] [address] Jan, [facility] [address] [id number] [address] [place] [address], [place] [address] Jan, [facility] [address] [id number] [address] [place] [address], [place] [address] Jan, [facility] [address] [id number] [address] [place] [address], [place] [address] Dec, [facility] [address] [id number] [address] [place] [address], [place] [address] Dec, 2014 [facility] [address] [id number] [address] [place] [address], [place] [address] Dec, 2014 [facility] [address] [id number] [address] [place] [address], [place] [address] Dec, [facility] [address] [id number] [address] [place] [address], [place] [address] Oct, [facility] [address] [id number] [address] [place] [address], [place] [address] Oct, [facility] [address] [id number] [address] [place] [address], [place] [address] Oct, [facility] [address] [id number] [address] [place] [address], [place] [address] Oct, [facility] [address] [id number] [address] [place] [address], [place] [address] Oct, [facility] [address] [id number] [address] [place] [address], [place] [address] Oct, [facility] [address] [id number] [address] [place] [address], [place] [address] Oct, [facility] [address] [id number] [address] [place] [address], [place] [address] Sep, [facility] [address] [id number] [address] [place] [address], [place] [address] Sep, [facility] [address] [id number] [address] [place] [address], [place] [address] Sep, [facility] [address] [id number] [address] [place] [address], [place] [address] Sep, [facility] [address] [id number] [address] [place] [address], [place] [address] Sep, [facility] [address] [id number] [address] [place] [address], [place] [address] Sep, [facility] [address] [id number] [address] [place] [address], [place] [address] Sep, [facility] [address] [id number] [address] [place] [address], [place] [address] Sep, [facility] [address] [id number] [address] [place] [address], [place] [address] Aug, [facility] [address] [id number] [address] [place] [address], [place] [address] Aug, [facility] [address] [id number] [address] [place] [address], [place] [address] Aug, [facility] [address] [id number] [address] [place] [address], [place] [address] Aug, [facility] [address] [id number] [address] [place] [address], [place] [address] Jul, [facility] [address] [id number] [address] [place] [address], [place] [address] Jul, [facility] [address] [id number] [address] [place] [address], [place] [address] Jul, [facility] [address] [id number] [address] [place] [address], [place] [address] Jul, [facility] [address] [id number] [address] [place] [address], [place] [address] Jun, [facility] [address] [id number] [address] [place] [address], [place] [address] Jun, [facility] [address] [id number] [address] [place] [address], [place] [address] Jun, [facility] [address] [id number] [address] [place] [address], [place] [address] Jun, [facility] [address] [id number] [address] [place] [address], [place] [address] May, [facility] [address] [id number] [address] [place] [address], [place] [address] May, [facility] [address] [id number] [facility] [place] [address] May, [facility] [address] [id number] [address] [place] [address], [place] [address] May, [facility] [address] [id number] [address] [place] [address], [place] [address] Apr, [facility] [address] [id number] [address] [place] [address], [place] [address] Apr, [facility] [address] [id number] [address] [place] [address], [place] [address] Apr, [facility] [address] [id number] [address] [place] [address], [place] [address] Apr, [facility] [address] [id number] [address] [place] [address], [place] [address] Apr, [facility] [address] [id number] [address] [place], [place] [address], [place] [address] Apr, [facility] [address] [id number] [address] [place] [address], [place] [address] Apr, [facility] [address] [id number] [address] [place] [address], [place] [address] Apr, [facility] [address] [id number] [address] [place] [address], [place] [address] Apr, [facility] [address] [id number] [address] [place] [address], [place] [address] Apr, [facility] [address] [id number] [address] [place] [address], [place] [address] Apr, [facility] [address] [id number] [address] [place] [address], [place] [address] Apr, [facility] [address] [id number] [address] [place] [address], [place] [address] Apr, [facility] [address] [id number] [address] [place] [address], [place] [address] March, [facility] [address] [id number] [address] [place] [address], [place] [address] March, [facility] [address] [id number] [address] [place] [address], [place] [address] March, [facility] [address] [id number] [address] [place] [address], [place] [address] March, [facility] [address] [id number] [address] [place] [address], [place] [address] Jan, [facility] [address] [id number] [address] [place] [address], [place] [address] Jan, [facility] [address] [id number] [address] [place] [address], [place] [address] Jan, [facility] [address] [id number] [address] [place] [address], [place] [address] Jan, [facility] [address] [id number] [address] [place] [address], [place] [address] Jan, [facility] [address] [id number] [address] [place] [address], [place] [address] Jan, [facility] [address] [id number] [address] [place] [address], [place] [address] Dec, [facility] [address] [id number] [address] [place] [address], [place] [address] Dec, [facility] [address] [id number] [address] [place] [address], [place] [address] Dec, [facility] [address] [id number] [address] [place] [address], [place] [address] Dec, [facility] [address] [id number] [address] [place] [address], [place] [address] Nov, [facility] [address] [id number] [address] [place] [address], [place] [address] Nov, [facility] [address] [id number] [address] [place] [address], [place] [address] Nov, [facility] [address] [id number] [address] [place] [address], [place] [address] Nov, [facility] [address] [id number] [address] [place] [address], [place] [address] Oct, [facility] [address] [id number] [address] [place] [address], [place] [address] Oct, [facility] [address] [id number] [address] [place] [address], [place] [address] Oct, [facility] [address] [id number] [address] [place] [address], [place] [address] Oct, [facility] [address] [id number] [address] [place] [address], [place] [address] Oct, [facility] [address] [id number] [address] [place] [address], [place] [address] Oct, [facility] [address] [id number] [address] [place] [address], [place] [address] Oct, [facility] [address] [id number] [address] [place] [address], [place] [address] Oct, [facility] [address] [id number] [address] [place] [address], [place] [address] Sep, [facility] [address] [id number] [address] [place] [address] Sep, [facility] [address] [id number] [address] [place] [address], [place] [address] Jul, [facility] [address] [id number] [address] [place] [address], [place] [address] Jul, [facility] [address] [id number] [address] [place] [address], [place] [address] Jul, [facility] [address] [id number] [address] [place] [address], [place] [address] 07 Jul, 2013 [facility] [address] [id number] [address] [place] [address], [place] [address] Jun, [facility] [address] [id number] [address] [place] [address], [place] [address] Jun, [facility] [address] [id number] [address] [place] [address], [place] [address] May, [facility] [address] [id number] [address] [place] [address], [place] [address] Apr, [facility] [address] [id number] [address] [place] [address], [place] [address] Apr, [facility] [address] [id number] [address] [place] [address], [place] [address] Apr, [facility] [address] [id number] [address] [place] [address], [place] [address] March, [facility] [address] [id number] [address] [place] [address], [place] [address] March, [facility] [address] [id number] [address] [place] [address], [place] [address] Feb, [facility] [address] [id number] [address] [place] [address], [place] [address] Jan, [facility] [address] [id number] [address] [place] [address], [place] [address] Jan, [facility] [address] [id number] [address] [place] [address], [place] [address] Dec, [facility] [address] [id number] [address] [place] [address], [place] [address] Dec, [facility] [address] [id number] [address] [place] [address], [place] [address] Nov, [facility] [address] [id number] [address] [place] [address], [place] [address] Nov, [facility] [address] [id number] [address] [place] [address], [place] [address] Nov, [facility] [address] [id number] [address] [place] [address], [place] [address] Oct, [facility] [address] [id number] [address] [place] [address], [place] [address] Oct, [facility] [address] [id number] [address] [place] [address], [place] [address] Oct, [facility] [address] [id number] [address] [place] [address], [place] [address] Oct, [facility] [address] [id number] [address] [place] [address], [place] [address] Sep, [facility] [address] [id number] [address] [place] [address], [place] [address] Sep, [facility] [address] [id number] [address] [place] [address], [place] [address] Sep, [facility] [address] [id number] [address] [place] [address], [place] [address] Sep, [facility] [address] [id number] [address] [place] [address] Sep, [facility] [address] [id number] [address] [place] [address] Sep, [facility] [address] [id number] [address] [place] [address] 02 Aug, 2012 [facility] [address] [id number] [address] [place] [address], [place] [address] 26 Jul, 2012 [facility] [address] [id number] [address] [place] [address], [place] [address] 19 Jul, 2012 [facility] [address] [id number] [address] [place] [address] 18 Jul, 2012 [facility] [address] [id number] [address] [place] [address] Jul, [facility] [address] [id number] [address] [place] [address], [place] [address] Jun, [facility] [address] [id number] [address] [place] [address], [place] [address] Jun, [facility] [address] [id number] [address] [place] [address], [place] [address] Jun, [facility] [address] [id number] [address] [place] [address], [place] [address] Jun, [facility] [address] [id number] [address] [place] [address], [place] [address] May, [facility] [address] [id number] [address] [place] [address], [place] [address] Apr, [facility] [address] [id number] [address] [place] [address], [place] [address] March, [facility] [address] [id number] [address] [place] [address], [place] [address] March, [facility] [address] [id number] [address] [place] [address], [place] [address] March, [facility] [address] [id number] [address] [place] [address], [place] [address] Feb, [facility] [address] [id number] [address] [place] [address], [place] [address] Feb, [facility] [address] [id number] [address] [place] [address], [place] [address] Jan, [facility] [address] [id number] [address] [place] [address], [place] [address] Jan, [facility] [address] [id number] [address] [place] [address], [place] [address] Jan, [facility] [address] [id number] [address] [place] [address], [place] [address] Dec, [facility] [address] [id number] [address] [place] [address], [place] [address] 16 Dec, 2011 [facility] [address] [id number] [address] [place] [address], [place] [address] Nov, [facility] [address] [id number] [address] [place] [address], [place] [address] Nov, [facility] [address] [id number] [address] [place] [address], [place] [address] Nov, [facility] [address] [id number] [address] [place] [address], [place] [address] Nov, [facility] [address] [id number] [address] [place] [address], [place] [address] Nov, [facility] [address] [id number] [address] [place] [address], [place] [address] Oct, [facility] [address] [id number] [address] [place] [address], [place] [address] Oct, [facility] [address] [id number] [address] [place] [address], [place] [address] 05 Oct, 2011 [facility] [address] [id number] [address] [place] [address], [place] [address] 02 Oct, 2011 [facility] [address] [id number] [address] [place] [address], [place] [address] Sep, [facility] [address] [id number] [address] [place] [address], [place] [address] Sep, [facility] [address] [id number] [address] [place] [address], [place] [address] 17 Sep, 2011 [facility] [address] [id number] [address] [place] [address], [place] [address] 13 Aug, 2011 [facility] [address] [id number] [address] [place] [address], [place] [address] 31 Oct, 2010 [facility] [address] [id number] [address] [place] [address], [place] [address] Oct, [facility] [address] [facility] [id number] [address] [place] [address] Oct, [facility] [address] [facility] [id number] [address] [place] [address] Oct, IMMUNIZATIONS No Known Immunizations SOCIAL HISTORY [...]
--- OUTSIDE RECORDS SUMMARY | 2020-04-25 14:46 | XMS REPORT ---
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 Name Role Phone CHEYENNE Barnes Unavailable PROBLEMS Type Condition ICD9-CM Code VFC20-BQ Code Onset Dates Condition S tatus SNOMED Code Problem Posttraumatic stress disorder F43.10 Active 05293745 Problem Anxiety F41.9 Active 80120754 Problem Bipolar disorder, unspecified F31.9 Active 06175413 Problem Attention deficit hyperactivity disorder (ADHD), combi dylon type F90.2 Active [id number] ALLERGIES No Information ENCOUNTERS Encounter Location Date Diagnosis [facility] [address] [id number] [address] [place] [phone] Apr, [facility] [address] [id number] [address] [place] [phone] Feb, Bipolar disorder, unspecifie d F31.9 [facility] [address] [id number] [address] [place] [address] Feb, Bipolar disorder, unspecifie d F31.9 ; Posttraumatic stress disorder F43.10 ; Attention deficit hyperactivity disorder (ADHD), combined type F90.2 and Anxiety F41.9 [facility] [address] [id number] [address] [place] [phone] Feb, Bipolar disorder, unspecifie d F31.9 [facility] [id number] [place] [phone] Jan, [facility] [id number] [address] [place] [phone] Jan, [facility] [address] [id number] [address] [place] [phone] Jan, Bipolar disorder, unspecifie d F31.9 [facility] [address] [facility] [id number] [address] [place] [phone] Dec, [facility] [address] [facility] [id number] [address] [place] [phone] Dec, Bipolar disorder, unspecifie d F31.9 ; Posttraumatic stress disorder F43.10 ; Attention deficit hyperactivity disorder (ADHD), combined type F90.2 and Anxiety F41.9 [facility] [address] [facility] [id number] [address] [place] [phone] 18 Dec, 2019 Bipolar disorder, unspecifie d F31.9 [facility] [id number] [place] [phone] 17 Dec, 2019 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 requiring routine preventive dental care K08.9 [facility] [address] [id number] [address] [place] [phone] 05 Dec, 2019 Bipolar disorder, unspecifie d F31.9 [facility] [address] [facility] [id number] [address] [place] [phone] Nov, Post-nasal drip R09.82 [facility] [address] [facility] [id number] [address] [place] [address] Nov, Bipolar disorder, unspecifie d F31.9 [facility] [address] [id number] [address] [place] [phone] Oct, [facility] [address] [id number] [address] [place] [address] Oct, Bipolar disorder, unspecifie d F31.9 [facility] [address] [facility] [id number] [address] [place] [address] Sep, Bipolar disorder, unspecifie d F31.9 ; Attention deficit hyperactivity disorder (ADHD), combined type F90.2 and Posttraumatic stress disorder F43.10 [facility] [address] [id number] [address] [place] [address] Sep, Bipolar disorder, unspecifie d F31.9 [facility] [address] [address] [id number] [address] Sep, Dental examination Z01.20 an d Oral health maintenance status requiring routine preventive dental care K08.9 [facility] [address] [facility] [id number] [address] [place] [address] Aug, Bipolar disorder, unspecifie d F31.9 [facility] [address] [facility] [id number] [address] [place] [address] Jul, Bipolar disorder, unspecifie d F31.9 [facility] [address] [facility] [id number] [address] [place] [address] Jun, Bipolar disorder, unspecifie d F31.9 ; Posttraumatic stress disorder F43.10 ; Attention deficit hyperactivity disorder (ADHD), combined type F90.2 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 [facility] [address] [id number] [place] [address] May, Caries K02.9 [facility] [address] [id number] [place] [address] May, Caries K02.9 [facility] [id number] [place] [address] May, 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 requiring routine preventive dental care K08.9 [facility] [address] [facility] [id number] [address] [place] [address] Apr, Bipolar disorder, unspecifie d F31.9 [facility] [address] [facility] [id number] [address] [place] [address] Apr, [facility] [address] [facility] [id number] [address] [place] [address] Apr, Bipolar disorder, unspecifie d F31.9 [facility] [address] [facility] [id number] [address] [place] [address] Apr, Bipolar disorder, unspecifie d F31.9 [facility] [address] [id number] [address] [place] [address] Apr, [facility] [address] [facility] [id number] [address] [place] [address] March, Bipolar disorder, unspecifie d F31.9 ; Attention deficit hyperactivity disorder (ADHD), combined type F90.2 ; Posttraumatic stress disorder F43.10 and Other 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 (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 Z79.8[address] [facility] [id number] [place] [address] March, Dental examination Z01.20 and Caries K02 .9 [facility] [address] [facility] [id number] [address] [place] [address] Feb, Bipolar disorder, unspecifie d F31.9 [facility] [address] [facility] [id number] [address] [place] [phone] Jan, 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 requiring routine preventive dental care K08.9 ; Dental examination Z01.20 and Caries K02.9 [facility] [address] [facility] [id number] [address] [place] [phone] Jan, Bipolar disorder, unspecifie d F31.9 [facility] [address] [facility] [id number] [address] [place] [address] Dec, Bipolar disorder, unspecifie d F31.9 ; Attention deficit hyperactivity disorder (ADHD), combined type F90.2 and Posttraumatic stress disorder F43.10 [facility] [address] [facility] [id number] [address] [place] [address] Oct, Sore throat J02.9 [facility] [address] [facility] [id number] [address] [place] [address] Oct, [facility] [address] [facility] [id number] [address] [place] [address] Oct, Bipolar disorder, unspecifie d F31.9 [facility] [address] [facility] [id number] [address] [place] [id number] Sep, 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 requiring routine preventive dental care K08.9 [facility] [address] [facility] [id number] [address] [place] [address] Sep, Bipolar disorder, unspecifie d F31.9 ; Attention deficit hyperactivity disorder (ADHD), combined type F90.2 and Posttraumatic stress disorder F43.10 [facility] [address] [facility] [id number] [address] [place] [address] Aug, Lymphadenopathy of left cerv ical region R59.0 [facility] [address] [facility] [id number] [place] [address] Aug, Encounter for immunization Z 23 [facility] [address] [facility] [id number] [place] [phone] Aug, 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 [facility] [id number] [address] [place] [address] Jul, Bipolar disorder, unspecifie d F31.9 [facility] [address] [facility] [id number] [address] [place] [address] Jun, Bipolar disorder, unspecifie d F31.9 [facility] [address] [facility] [id number] [address] [place] [address] Jun, [facility] [address] [facility] [id number] [address] [place] [phone] Jun, Bipolar disorder, unspecifie d F31.9 ; Attention deficit hyperactivity disorder (ADHD), combined type F90.2 ; Posttraumatic stress disorder F43.10 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 [id number] [address] [place] [id number] Jun, Dental examination Z01.20 [facility] [address] [facility] [id number] [address] [place] [address] May, [facility] [address] [facility] [id number] [address] [place] [address] Apr, Bipolar disorder, unspecifie d F31.9 [facility] [address] [facility] [id number] [address] [place] [address] March, Bipolar disorder, unspecifie d F31.9 ; Attention deficit hyperactivity disorder (ADHD), combined type F90.2 and Posttraumatic stress disorder F43.10 [facility] [id number] [place] [address] Feb, [facility] [address] [facility] [id number] [place] [phone] Feb, Insect bite (nonvenomous), l eft knee, initial encounter S80.262A and Bitten or stung by nonvenomous insect and other nonvenomous arthropods, initial encounter W57.XXXA [facility] [id number] [address] [place] [address] Feb, Bipolar disorder, unspecifie d F31.9 [facility] [id number] [place] [address] [id number] Feb, Dental examination Z01.20 [facility] [id number] [address] [place] [address] Feb, Bipolar disorder, unspecifie d F31.9 ; Attention deficit hyperactivity disorder (ADHD), combined type F90.2 and Posttraumatic stress disorder F43.10 [facility] [address] [id number] [address] [place] [address] [id number] Feb, Dental examination Z01.20 [facility] [address] [facility] [id number] [address] [place] [address] Jan, Bipolar disorder, unspecifie d F31.9 [facility] [address] [facility] [id number] [address] [place] [phone] Jan, Attention deficit hyperactiv ity disorder (ADHD), combined type F90.2 [facility] [address] [facility] [id number] [address] [place] [address] Dec, Posttraumatic stress disorde r F43.10 [facility] [address] [facility] [id number] [address] [place] [phone] 12 Dec, 2017 Posttraumatic stress disorde r F43.10 [facility] [address] [id number] [place] [address] [id number] Nov, Dental examination Z01.20 [facility] [address] [id number] [address] [id number] Nov, Encounter for dental exam an d cleaning w/o abnormal findings Z01.20 [facility] [id number] [place] [address] [id number] Nov, Dental examination Z01.20 [facility] [id number] [place] [address] Sep, Bipolar disorder, unspecifie d F31.9 ; Posttraumatic stress disorder F43.10 and Attention deficit hyperactivity disorder (ADHD), combined type F90.2 [facility] [address] [id number] [address] [place] [phone] 09 Aug, 2017 Posttraumatic stress disorde r F43.10 [facility] [id number] [address] [place] [phone] 15 Jul, 2017 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 [facility] [address] [facility] [id number] [address] [place] [address] Jul, Bipolar disorder, unspecifie d F31.9 ; Attention deficit hyperactivity disorder (ADHD), combined type F90.2 and Posttraumatic stress disorder F43.10 [facility] [address] [facility] [id number] [address] [place] [address] Jun, Bipolar disorder, unspecifie d F31.9 ; Posttraumatic stress disorder F43.10 ; Attention deficit hyperactivity disorder (ADHD), combined type F90.2 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 [facility] [address] [id number] [address] [place] [phone] March, Bipolar disorder, unspecifie d F31.9 ; Posttraumatic stress disorder F43.10 and Attention deficit hyperactivity disorder (ADHD), combined type F90.2 [facility] [address] [id number] [address] [place] [phone] Dec, Bipolar disorder, unspecifie d F31.9 ; Posttraumatic stress disorder F43.10 and Attention deficit hyperactivity disorder (ADHD), combined type F90.2 [facility] [address] [id number] [address] [place] [phone] Dec, [facility] [address] [id number] [address] [place] [phone] Sep, [facility] [address] [id number] [address] [place] [phone] Aug, Bipolar disorder, unspecifie d F31.9 ; Posttraumatic stress disorder F43.10 and Attention deficit hyperactivity disorder (ADHD), combined type F90.2 [facility] [address] [id number] [address] [place] [phone] Jun, [facility] [address] [id number] [address] [place] [address] March, [facility] [address] [id number] [address] [place] [phone] Feb, Bipolar disorder, unspecifie d F31.9 ; Attention deficit hyperactivity disorder (ADHD), combined type F90.2 and Posttraumatic stress disorder F43.10 [facility] [address] [id number] [address] [place] [phone] Feb, [facility] [address] [id number] [address] [place] [phone] Feb, [facility] [address] [id number] [address] [place] [phone] Feb, [facility] [address] [facility] [id number] [address] [place] [phone] Jan, [facility] [address] [id number] [address] [place] [address] [id number] Dec, Dental examination Z01.20 [facility] [address] [id number] [address] [place] [phone] Sep, [facility] [address] [facility] [id number] [address] [place] [phone] Sep, Attention deficit hyperactiv ity disorder (ADHD), combined type F90.2 ; Posttraumatic stress disorder F43.10 and Bipolar disorder, unspecified F31.9 [facility] [address] [facility] [id number] [address] [place] [phone] Aug, [facility] [address] [facility] [id number] [address] [place] [phone] Aug, [facility] [address] [facility] [id number] [address] [place] [phone] Jul, [facility] [address] [facility] [id number] [address] [place] [address] May, Bipolar disorder, unspecifie d 296.80 ; 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.00 and Posttraumatic stress disorder 309.81 [facility] [address] [facility] [id number] [address] [place] [phone] May, [facility] [address] [facility] [id number] [address] [place] [phone] May, [facility] [address] [facility] [id number] [address] [place] [phone] May, [facility] [address] [facility] [id number] [address] [place] [phone] Apr, [facility] [address] [facility] [id number] [address] [place] [phone] Apr, [facility] [address] [facility] [id number] [address] [place] [phone] Apr, [facility] [address] [id number] [address] [place] [address], [place] [address] March, [facility] [address] [id number] [address] [place] [address], [place] [address] March, [facility] [address] [id number] [address] [place] [address], [place] [address] March, [facility] [address] [id number] [address] [place] [address], [place] [address] Feb, [facility] [address] [id number] [address] [place] [address], [place] [address] Feb, [facility] [address] [id number] [address] [place] [address], [place] [address] Jan, [facility] [address] [id number] [address] [place] [address], [place] [address] Jan, [facility] [address] [id number] [address] [place] [address], [place] [address] Jan, [facility] [address] [id number] [address] [place] [address], [place] [address] Jan, [facility] [address] [id number] [address] [place] [address], [place] [address] Jan, [facility] [address] [id number] [address] [place] [address], [place] [address] Jan, [facility] [address] [id number] [address] [place] [address], [place] [address] Jan, [facility] [address] [id number] [address] [place] [address], [place] [address] Jan, [facility] [address] [id number] [address] [place] [address], [place] [address] Jan, [facility] [address] [id number] [address] [place] [address], [place] [phone] Jan, [facility] [address] [id number] [address] [place] [address], [place] [address] Dec, 2014 [facility] [address] [id number] [address] [place] [address], [place] [address] Dec, 2014 [facility] [address] [id number] [address] [place] [address], [place] [address] Dec, 2014 [facility] [address] [id number] [address] [place] [address], [place] [address] Dec, 2014 [facility] [address] [id number] [address] [place] [address], [place] [address] Oct, [facility] [address] [id number] [address] [place] [address], [place] [address] Oct, [facility] [address] [id number] [address] [place] [address], [place] [address] Oct, [facility] [address] [id number] [address] [place] [address], [place] [address] Oct, [facility] [address] [id number] [address] [place] [address], [place] [address] Oct, [facility] [address] [id number] [address] [place] [address], [place] [address] Oct, [facility] [address] [id number] [address] [place] [address], [place] [address] Oct, [facility] [address] [id number] [address] [place] [address], [place] [address] Sep, [facility] [address] [id number] [address] [place] [address], [place] [id number] Sep, [facility] [address] [id number] [address] [place] [address], [place] [address] Sep, [facility] [address] [id number] [address] [place] [address], [place] [address] Sep, [facility] [address] [id number] [address] [place] [address], [place] [id number] Sep, [facility] [address] [id number] [address] [place] [address], [place] [id number] Sep, [facility] [address] [id number] [address] [place] [address], [place] [id number] Sep, [facility] [address] [id number] [address] [place] [address], [place] [address] Sep, [facility] [address] [id number] [address] [place] [address], [place] [address] Aug, [facility] [address] [id number] [address] [place] [address], [place] [id number] Aug, [facility] [address] [id number] [address] [place] [address], [place] [address] Aug, [facility] [address] [id number] [address] [place] [address], [place] [address] Aug, [facility] [address] [id number] [address] [place] [address], [place] [id number] Jul, [facility] [address] [id number] [address] [place] [address], [place] [address] Jul, [facility] [address] [id number] [address] [place] [address], [place] [address] Jul, [facility] [address] [id number] [address] [place] [address], [place] [address] Jul, [facility] [address] [id number] [address] [place] [address], [place] [id number] Jun, [facility] [address] [id number] [address] [place] [address], [place] [id number] Jun, [facility] [address] [id number] [address] [place] [address], [place] [address] Jun, [facility] [address] [id number] [address] [place] [address], [place] [address] Jun, [facility] [address] [id number] [facility] [place] [address] May, [facility] [address] [id number] [facility] [place] [address] May, [facility] [address] [id number] [facility] [place] [address] May, [facility] [address] [id number] [address] [place] [address], [place] [address] May, [facility] [address] [id number] [address] [place] [address], [place] [address] Apr, [facility] [address] [id number] [address] [place] [address], [place] [address] Apr, [facility] [address] [id number] [address] [place] [address], [place] [address] Apr, [facility] [address] [id number] [address] [place] [address], [place] [address] Apr, [facility] [address] [id number] [address] [place] [address], [place] [address] Apr, [facility] [address] [id number] [address] [place] [address], [place] [address] Apr, [facility] [address] [id number] [address] [place] [address], [place] [address] Apr, [facility] [address] [id number] [address] [place] [address], [place] [address] Apr, [facility] [address] [id number] [address] [place] [address], [place] [address] Apr, [facility] [address] [id number] [address] [place] [address], [place] [address] Apr, [facility] [address] [id number] [address] [place] [address], [place] [address] Apr, [facility] [address] [id number] [address] [place] [address], [place] [address] Apr, [facility] [address] [id number] [facility] [place] [address] Apr, [facility] [address] [id number] [address] [place] [address], [place] [address] March, [facility] [address] [id number] [address] [place] [address], [place] [address] March, [facility] [address] [id number] [address] [place] [address], [place] [address] March, [facility] [address] [id number] [address] [place] [address], [place] [address] March, [facility] [address] [id number] [address] [place] [address], [place] [address] Jan, [facility] [address] [id number] [address] [place] [address], [place] [address] Jan, [facility] [address] [id number] [address] [place] [address], [place] [address] Jan, [facility] [address] [id number] [address] [place] [address], [place] [address] Jan, [facility] [address] [id number] [address] [place] [address], [place] [address] Jan, [facility] [address] [id number] [address] [place] [address], [place] [address] Jan, [facility] [address] [id number] [address] [place] [address], [place] [address] Dec, [facility] [address] [id number] [address] [place] [address], [place] [address] Dec, [facility] [address] [id number] [address] [place] [address], [place] [address] Dec, [facility] [address] [id number] [address] [place] [address], [place] [address] Dec, [facility] [address] [id number] [address] [place] [address], [place] [address] Nov, [facility] [address] [id number] [address] [place] [address], [place] [address] Nov, [facility] [address] [id number] [address] [place] [address], [place] [address] Nov, [facility] [address] [id number] [address] [place] [address], [place] [address] Nov, [facility] [address] [id number] [address] [place] [address], [place] [address] Oct, [facility] [address] [id number] [address] [place] [address], [place] [address] Oct, [facility] [address] [id number] [address] [place] [address], [place] [address] Oct, [facility] [address] [id number] [address] [place] [address], [place] [address] Oct, [facility] [address] [id number] [address] [place] [address], [place] [address] Oct, [facility] [address] [id number] [address] [place] [address], [place] [address] Oct, [facility] [address] [id number] [address] [place] [address], [place] [address] Oct, [facility] [address] [id number] [address] [place] [address], [place] [address] Oct, [facility] [address] [id number] [address] [place] [address], [place] [address] Sep, [facility] [address] [id number] [address] [place] [address], [place] [address] Sep, [facility] [address] [id number] [address] [place] [address], [place] [address] Jul, [facility] [address] [id number] [address] [place] [address], [place] [address] 12 Jul, 2013 [facility] [address] [id number] [address] [place] [address], [place] [address] 09 Jul, 2013 [facility] [address] [id number] [address] [place] [address], [place] [address] Jul, [facility] [address] [id number] [address] [place] [address], [place] [address] Jun, [facility] [address] [id number] [address] [place] [address], [place] [address] Jun, [facility] [address] [id number] [address] [place] [address], [place] [address] May, [facility] [address] [id number] [address] [place] [address], [place] [address] Apr, [facility] [address] [id number] [address] [place] [address], [place] [address] Apr, [facility] [address] [id number] [address] [place] [address], [place] [address] Apr, [facility] [address] [id number] [address] [place] [address], [place] [address] March, [facility] [address] [id number] [address] [place] [address], [place] [address] March, [facility] [address] [id number] [address] [place] [address], [place] [address] Feb, [facility] [address] [id number] [address] [place] [address], [place] [address] Jan, [facility] [address] [id number] [address] [place] [address], [place] [address] Jan, [facility] [address] [id number] [address] [place] [address], [place] [address] Dec, [facility] [address] [id number] [address] [place] [address], [place] [address] Dec, [facility] [address] [id number] [address] [place] [address] 14 Nov, 2012 [facility] [address] [id number] [address] [place] [address], [place] [address] Nov, [facility] [address] [id number] [address] [place] [address] Nov, [facility] [address] [id number] [address] [place] [address], [place] [address] Oct, [facility] [address] [id number] [address] [place] [address], [place] [address] Oct, [facility] [address] [id number] [address] [place] [address], [place] [address] Oct, [facility] [address] [id number] [address] [place] [address], [place] [address] Oct, [facility] [address] [id number] [address] [place] [address], [place] [address] Sep, [facility] [address] [id number] [address] [place] [address], [place] [address] Sep, [facility] [address] [id number] [address] [place] [address], [place] [address] Sep, [facility] [address] [id number] [address] [place] [address], [place] [address] Sep, [facility] [address] [id number] [address] [place] [address], [place] [address] 15 Sep, 2012 [facility] [address] [id number] [address] [place] [id number] 15 Sep, 2012 [facility] [address] [id number] [address] [place] [address], [place] [address] 02 Aug, 2012 [facility] [address] [id number] [address] [place] [address], [place] [address] 26 Jul, 2012 [facility] [address] [id number] [address] [place] [address], [place] [address] 19 Jul, 2012 [facility] [address] [id number] [address] [place] [address], [place] [address] Jul, [facility] [address] [id number] [address] [place] [address], [place] [address] Jul, [facility] [address] [id number] [address] [place] [address], [place] [address] Jun, [facility] [address] [id number] [address] [place] [address], [place] [address] Jun, [facility] [address] [id number] [address] [place] [address], [place] [address] Jun, [facility] [address] [id number] [address] [place] [address], [place] [address] Jun, [facility] [address] [id number] [address] [place] [address], [place] [address] May, [facility] [address] [id number] [address] [place] [address], [place] [address] Apr, [facility] [address] [id number] [address] [place] [address], [place] [address] March, [facility] [address] [id number] [address] [place] [address], [place] [address] March, [facility] [address] [id number] [address] [place] [address], [place] [address] March, [facility] [address] [id number] [address] [place] [address], [place] [address] Feb, [facility] [address] [id number] [address] [place] [address], [place] [address] Feb, [facility] [address] [id number] [address] [place] [address], [place] [address] Jan, [facility] [address] [id number] [address] [place] [address], [place] [address] Jan, [facility] [address] [id number] [address] [place] [address], [place] [address] Jan, [facility] [address] [id number] [address] [place] [address], [place] [address] Dec, [facility] [address] [id number] [address] [place] [address], [place] [address] Dec, [facility] [address] [id number] [address] [place] [address], [place] [address] Nov, [facility] [address] [id number] [address] [place] [address], [place] [address] Nov, [facility] [address] [id number] [address] [place] [address], [place] [address] Nov, [facility] [address] [id number] [address] [place] [address], [place] [address] Nov, [facility] [address] [id number] [address] [place] [address], [place] [address] Nov, [facility] [address] [id number] [address] [place] [address], [place] [address] Oct, [facility] [address] [id number] [address] [place] [address], [place] [address] Oct, [facility] [address] [id number] [address] [place] [address], [place] [address] Oct, [facility] [address] [id number] [address] [place] [address], [place] [address] Oct, [facility] [address] [id number] [address] [place] [address], [place] [address] Sep, [facility] [address] [id number] [address] [place] [address], [place] [address] Sep, [facility] [address] [id number] [address] [place] [address], [place] [address] 17 Sep, 2011 [facility] [address] [id number] [address] [place] [address], [place] [address] 13 Aug, 2011 [facility] [address] [id number] [address] [place] [address] Oct, [facility] [address] [facility] [id number] [address] [place] [id number] Oct, [facility] [address] [facility] [id number] [address] [place] [address] Oct, [facility] [address] [facility] [id number] [address] [place] [address] Oct, IMMUNIZATIONS No Known Immunizations SOCIAL HISTORY [...]
--- OUTSIDE RECORDS SUMMARY | 2020-04-25 14:46 | XMS REPORT ---
Author Author Ronna BURKS Organization [facility] Address [address] [place] [address] Care Team Providers Care Technical Architect Name Role Phone NATALIYA BURKS Unavailable PROBLEMS Type Condition ICD9-CM Code [id number] Code Onset Dates Condition S tatus SNOMED Code Problem Posttraumatic stress disorder F43.10 Active 54482816 Problem Anxiety F41.9 Active 27045110 Problem Bipolar disorder, unspecified F31.9 Active 25171585 Problem Attention deficit hyperactivity disorder (ADHD), combi dylon type F90.2 Active [id number] ALLERGIES No Information ENCOUNTERS Encounter Location Date Diagnosis [facility] [address] [facility] [id number] [address] [place] [phone] Apr, [facility] [address] [facility] [id number] [address] [place] [phone] Feb, Bipolar disorder, unspecifie d F31.9 ; Posttraumatic stress disorder F43.10 ; Attention deficit hyperactivity disorder (ADHD), combined type F90.2 and Anxiety F41.9 [facility] [address] [facility] [id number] [address] [place] [phone] Feb, Bipolar disorder, unspecifie d F31.9 [facility] [id number] [place] [phone] Jan, [facility] [address] [facility] [id number] [address] [place] [phone] Jan, [facility] [address] [facility] [id number] [address] [place] [phone] Jan, Bipolar disorder, unspecifie d F31.9 [facility] [address] [facility] [id number] [address] [place] [phone] Dec, [facility] [address] [facility] [id number] [address] [place] [phone] Dec, Bipolar disorder, unspecifie d F31.9 ; Posttraumatic stress disorder F43.10 ; Attention deficit hyperactivity disorder (ADHD), combined type F90.2 and Anxiety F41.9 [facility] [address] [facility] [id number] [address] [place] [phone] 18 Dec, 2019 Bipolar disorder, unspecifie d F31.9 [facility] [id number] [place] [phone] 17 Dec, 2019 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 requiring routine preventive dental care K08.9 [facility] [address] [facility] [id number] [address] [place] [phone] 05 Dec, 2019 Bipolar disorder, unspecifie d F31.9 [facility] [address] [facility] [id number] [address] [place] [phone] Nov, Post-nasal drip R09.82 [facility] [address] [facility] [id number] [address] [place] [phone] Nov, Bipolar disorder, unspecifie d F31.9 [facility] [address] [facility] [id number] [address] [place] [phone] Oct, [facility] [address] [facility] [id number] [address] [place] [phone] Oct, Bipolar disorder, unspecifie d F31.9 [facility] [address] [facility] [id number] [address] [place] [phone] Sep, Bipolar disorder, unspecifie d F31.9 ; Attention deficit hyperactivity disorder (ADHD), combined type F90.2 and Posttraumatic stress disorder F43.10 [facility] [address] [facility] [id number] [address] [place] [phone] Sep, Bipolar disorder, unspecifie d F31.9 [facility] [id number] [place] [phone] Sep, Dental examination Z01.20 an d Oral health maintenance status requiring routine preventive dental care K08.9 [facility] [address] [facility] [id number] [address] [place] [phone] Aug, Bipolar disorder, unspecifie d F31.9 [facility] [address] [facility] [id number] [address] [place] [phone] Jul, Bipolar disorder, unspecifie d F31.9 [facility] [address] 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 [id number] [address] [place] [phone] Apr, Bipolar disorder, unspecifie d F31.9 [facility] [address] [facility] [id number] [address] [place] [phone] Apr, [facility] [address] [facility] [id number] [address] [place] [phone] Apr, Bipolar disorder, unspecifie d F31.9 [facility] [address] [facility] [id number] [address] [place] [phone] Apr, Bipolar disorder, unspecifie d F31.9 [facility] [address] 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 [id number] [address] [place] [phone] Jan, Oral health maintenance stat requiring routine preventive dental care K08.9 ; Dental examination Z01.20 and Caries K02.9 [facility] [address] [facility] [id number] [address] [place] [phone] Jan, Bipolar disorder, unspecifie d F31.9 [facility] [address] [facility] [id number] [address] [place] [phone] Dec, Bipolar disorder, unspecifie d F31.9 ; Attention deficit hyperactivity disorder (ADHD), combined type F90.2 and Posttraumatic stress disorder F43.10 [facility] [address] [id number] [address] [place] [phone] Oct, Sore throat J02.9 [facility] [address] [facility] [id number] [address] [place] [phone] Oct, [facility] [address] [facility] [id number] [address] [place] [phone] Oct, Bipolar disorder, unspecifie d F31.9 [facility] [address] [id number] [address] [place] [id number] Sep, 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 requiring routine preventive dental care K08.9 [facility] [address] [id number] [address] [place] [phone] Sep, Bipolar disorder, unspecifie d F31.9 ; Attention deficit hyperactivity disorder (ADHD), combined type F90.2 and Posttraumatic stress disorder F43.10 [facility] [address] [id number] [address] [place] [phone] Aug, Lymphadenopathy of left cerv ical region R59.0 [facility] [address] [id number] [address] [place] [phone] Aug, Encounter for immunization Z 23 [facility] [address] 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 [id number] [address] [place] [phone] Jul, Bipolar disorder, unspecifie d F31.9 [facility] [address] [facility] [id number] [address] [place] [phone] Jun, Bipolar disorder, unspecifie d F31.9 [facility] [address] [facility] [id number] [address] [place] [phone] Jun, [facility] [address] [facility] [id number] [address] [place] [phone] Jun, Bipolar disorder, unspecifie d F31.9 ; Attention deficit hyperactivity disorder (ADHD), combined type F90.2 ; Posttraumatic stress disorder F43.10 and Other long-term (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 Z79.899 [facility] [address] [id number] [address] [place] [id number] Jun, Dental examination Z01.20 [facility] [address] [id number] [address] [place] [phone] May, [facility] [address] [facility] [id number] [address] [place] [phone] Apr, Bipolar disorder, unspecifie d F31.9 [facility] [address] [facility] [id number] [address] [place] [phone] March, Bipolar disorder, unspecifie d F31.9 ; Attention deficit hyperactivity disorder (ADHD), combined type F90.2 and Posttraumatic stress disorder F43.10 [facility] [address] [facility] [id number] [address] [place] [phone] Feb, [facility] [address] [facility] [id number] [address] [place] [phone] Feb, Insect bite (nonvenomous), l eft knee, initial encounter S80.262A and Bitten or stung by nonvenomous insect and other nonvenomous arthropods, initial encounter W57.XXXA [facility] [address] [facility] [id number] [address] [place] [phone] Feb, Bipolar disorder, unspecifie d F31.9 [facility] [address] [id number] [address] [place] [id number] Feb, Dental examination Z01.20 [facility] [address] [facility] [id number] [address] [place] [phone] Feb, Bipolar disorder, unspecifie d F31.9 ; Attention deficit hyperactivity disorder (ADHD), combined type F90.2 and Posttraumatic stress disorder F43.10 [facility] [address] [id number] [address] [place] [id number] Feb, Dental examination Z01.20 [facility] [address] [facility] [id number] [address] [place] [phone] Jan, Bipolar disorder, unspecifie d F31.9 [facility] [address] [facility] [id number] [address] [place] [phone] Jan, Attention deficit hyperactiv ity disorder (ADHD), combined type F90.2 [facility] [address] [facility] [id number] [address] [place] [phone] Dec, Posttraumatic stress disorde r F43.10 [facility] [address] [id number] [address] [place] [phone] 12 Dec, 2017 Posttraumatic stress disorde r F43.10 [facility] [address] [id number] [address] [place] [phone] Nov, Dental examination Z01.20 [facility] [address] [id number] [address] [place] [phone] Nov, Encounter for dental exam an d cleaning w/o abnormal findings Z01.20 [facility] [address] [id number] [address] [place] [id number] Nov, Dental examination Z01.20 [facility] [address] [facility] [id number] [address] [place] [phone] 08 Sep, 2017 Bipolar disorder, unspecifie d F31.9 ; Posttraumatic stress disorder F43.10 and Attention deficit hyperactivity disorder (ADHD), combined type F90.2 [facility] [address] [facility] [id number] [address] [place] [phone] 09 Aug, 2017 Posttraumatic stress disorde r F43.10 [facility] [address] 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 [id number] [address] [place] [phone] 11 Jul, 2017 Bipolar disorder, unspecifie d F31.9 ; Attention deficit hyperactivity disorder (ADHD), combined type F90.2 and Posttraumatic stress disorder F43.10 [facility] [address] [facility] [id number] [address] [place] [phone] Jun, Bipolar disorder, unspecifie d F31.9 ; Posttraumatic stress disorder F43.10 ; Attention deficit hyperactivity disorder (ADHD), combined type F90.2 and Other long-term (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 Z79.899 [facility] [address] [facility] [id number] [address] [place] [phone] March, Bipolar disorder, unspecifie d F31.9 ; Posttraumatic stress disorder F43.10 and Attention deficit hyperactivity disorder (ADHD), combined type F90.2 [facility] [address] [id number] [address] [place] [phone] Dec, Bipolar disorder, unspecifie d F31.9 ; Posttraumatic stress disorder F43.10 and Attention deficit hyperactivity disorder (ADHD), combined type F90.2 [facility] [address] [id number] [address] [place] [phone] Dec, [facility] [address] [id number] [address] [place] [phone] Sep, [facility] [address] [id number] [address] [place] [phone] Aug, Bipolar disorder, unspecifie d F31.9 ; Posttraumatic stress disorder F43.10 and Attention deficit hyperactivity disorder (ADHD), combined type F90.2 [facility] [address] [id number] [address] [place] [phone] Jun, [facility] [address] [id number] [address] [place] [phone] March, [facility] [address] [id number] [address] [place] [phone] Feb, Bipolar disorder, unspecifie d F31.9 ; Attention deficit hyperactivity disorder (ADHD), combined type F90.2 and Posttraumatic stress disorder F43.10 [facility] [address] [id number] [address] [place] [phone] Feb, [facility] [address] [id number] [address] [place] [phone] Feb, [facility] [address] [id number] [address] [place] [phone] Feb, [facility] [address] [id number] [address] [place] [phone] Jan, [facility] [address] [facility] [id number] [address] [place] [address] [phone] Dec, Dental examination Z01.20 [facility] [address] [facility] [id number] [address] [place] [phone] Sep, [facility] [address] [facility] [id number] [address] [place] [phone] Sep, Attention deficit hyperactiv ity disorder (ADHD), combined type F90.2 ; Posttraumatic stress disorder F43.10 and Bipolar disorder, unspecified F31.9 [facility] [address] [facility] [id number] [address] [place] [phone] Aug, [facility] [address] 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 [id number] [address] [place] [phone] May, [facility] [address] [facility] [id number] [address] [place] [phone] May, [facility] [address] [facility] [id number] [address] [place] [phone] May, [facility] [address] [facility] [id number] [address] [place] [phone] Apr, [facility] [address] [facility] [id number] [address] [place] [phone] Apr, [facility] [address] [facility] [id number] [address] [place] [phone] Apr, [facility] [address] [id number] [address] [place] [phone] March, [facility] [address] [id number] [facility] [place] [address] March, [facility] [address] [id number] [address] [place] [address], [place] [address] March, [facility] [address] [id number] [address] [place] [address], [place] [address] Feb, [facility] [address] [id number] [address] [place] [address], [place] [address] Feb, [facility] [address] [id number] [address] [place] [address], [place] [address] Jan, [facility] [address] [id number] [address] [place] [address], [place] [address] Jan, [facility] [address] [id number] [address] [place] [address], [place] [address] Jan, [facility] [address] [id number] [address] [place] [address], [place] [address] Jan, [facility] [address] [id number] [address] [place] [address], [place] [address] Jan, [facility] [address] [id number] [address] [place] [address], [place] [address] Jan, [facility] [address] [id number] [address] [place] [address], [place] [address] Jan, [facility] [address] [id number] [address] [place] [address], [place] [address] Jan, [facility] [address] [id number] [address] [place] [address], [place] [address] Jan, [facility] [address] [id number] [address] [place] [address], [place] [address] Jan, [facility] [address] [id number] [address] [place] [address], [place] [address] Dec, [facility] [address] [id number] [address] [place] [address], [place] [address] Dec, 2014 [facility] [address] [id number] [address] [place] [address], [place] [address] Dec, 2014 [facility] [address] [id number] [address] [place] [address], [place] [address] Dec, 2014 [facility] [address] [id number] [address] [place] [address], [place] [address] Oct, [facility] [address] [id number] [address] [place] [address], [place] [address] Oct, [facility] [address] [id number] [address] [place] [address], [place] [address] Oct, [facility] [address] [id number] [address] [place] [address], [place] [address] Oct, [facility] [address] [id number] [address] [place] [address], [place] [address] Oct, [facility] [address] [id number] [address] [place] [address], [place] [address] Oct, [facility] [address] [id number] [address] [place] [address], [place] [address] Oct, [facility] [address] [id number] [address] [place] [address], [place] [address] Sep, [facility] [address] [id number] [address] [place] [address], [place] [address] Sep, [facility] [address] [id number] [address] [place] [address], [place] [address] Sep, [facility] [address] [id number] [address] [place] [address], [place] [address] Sep, [facility] [address] [id number] [address] [place] [address], [place] [address] Sep, [facility] [address] [id number] [address] [place] [address], [place] [address] Sep, [facility] [address] [id number] [address] [place] [address], [place] [address] Sep, [facility] [address] [id number] [address] [place] [address], [place] [address] Sep, [facility] [address] [id number] [address] [place] [address], [place] [address] Aug, [facility] [address] [id number] [address] [place] [address], [place] [address] Aug, [facility] [address] [id number] [address] [place] [address], [place] [address] Aug, [facility] [address] [id number] [address] [place] [address], [place] [address] Aug, [facility] [address] [id number] [address] [place] [address], [place] [address] Jul, [facility] [address] [id number] [address] [place] [address], [place] [address] Jul, [facility] [address] [id number] [address] [place] [address], [place] [address] Jul, [facility] [address] [id number] [address] [place] [address], [place] [address] Jul, [facility] [address] [id number] [address] [place] [address], [place] [address] Jun, [facility] [address] [id number] [address] [place] [id number] Jun, [facility] [address] [id number] [address] [place] [address], [place] [address] Jun, [facility] [address] [id number] [address] [place] [address], [place] [address] Jun, [facility] [address] [id number] [address] [place] [address], [place] [address] May, [facility] [address] [id number] [address] [place] [address], [place] [address] May, [facility] [address] [id number] [facility] [place] [address] May, [facility] [address] [id number] [address] [place] [address], [place] [address] May, [facility] [address] [id number] [address] [place] [address], [place] [address] Apr, [facility] [address] [id number] [address] [place] [address], [place] [address] Apr, [facility] [address] [id number] [address] [place] [address], [place] [address] Apr, [facility] [address] [id number] [address] [place] [address], [place] [address] Apr, [facility] [address] [id number] [address] [place] [address], [place] [address] Apr, [facility] [address] [id number] [address] [place] [address], [place] [address] Apr, [facility] [address] [id number] [address] [place] [address], [place] [address] Apr, [facility] [address] [id number] [address] [place] [address], [place] [address] Apr, [facility] [address] [id number] [address] [place] [address], [place] [address] Apr, [facility] [address] [id number] [address] [place] [address], [place] [address] Apr, [facility] [address] [id number] [address] [place] [address], [place] [address] Apr, [facility] [address] [id number] [address] [place] [address], [place] [address] Apr, [facility] [address] [id number] [address] [place] [address], [place] [address] Apr, [facility] [address] [id number] [address] [place] [address], [place] [address] March, [facility] [address] [id number] [address] [place] [address], [place] [address] March, [facility] [address] [id number] [address] [place] [address], [place] [address] March, [facility] [address] [id number] [address] [place] [address], [place] [address] March, [facility] [address] [id number] [address] [place] [address], [place] [address] Jan, [facility] [address] [id number] [address] [place] [address], [place] [address] Jan, [facility] [address] [id number] [address] [place] [address], [place] [address] Jan, [facility] [address] [id number] [address] [place] [address], [place] [address] Jan, [facility] [address] [id number] [address] [place] [address], [place] [address] Jan, [facility] [address] [id number] [address] [place] [address], [place] [address] Jan, [facility] [address] [id number] [address] [place] [address], [place] [address] Dec, [facility] [address] [id number] [address] [place] [address], [place] [address] Dec, [facility] [address] [id number] [address] [place] [address], [place] [address] Dec, [facility] [address] [id number] [address] [place] [address], [place] [address] Dec, [facility] [address] [id number] [address] [place] [address], [place] [address] Nov, [facility] [address] [id number] [address] [place] [address], [place] [address] Nov, [facility] [address] [id number] [address] [place] [address], [place] [address] Nov, [facility] [address] [id number] [address] [place] [address], [place] [address] Nov, [facility] [address] [id number] [address] [place] [address], [place] [address] Oct, [facility] [address] [id number] [address] [place] [address], [place] [address] Oct, [facility] [address] [id number] [address] [place] [address], [place] [address] Oct, [facility] [address] [id number] [address] [place] [address], [place] [address] Oct, [facility] [address] [id number] [address] [place] [address], [place] [address] Oct, [facility] [address] [id number] [address] [place] [address], [place] [address] Oct, [facility] [address] [id number] [address] [place] [address], [place] [address] Oct, [facility] [address] [id number] [address] [place] [address], [place] [address] Oct, [facility] [address] [id number] [address] [place] [address], [place] [address] Sep, [facility] [address] [id number] [address] [place] [address] Sep, [facility] [address] [id number] [address] [place] [address], [place] [address] Jul, [facility] [address] [id number] [address] [place] [address], [place] [address] Jul, [facility] [address] [id number] [address] [place] [address], [place] [address] Jul, [facility] [address] [id number] [address] [place] [address], [place] [address] 07 Jul, 2013 [facility] [address] [id number] [address] [place] [address], [place] [address] Jun, [facility] [address] [id number] [address] [place] [address], [place] [address] Jun, [facility] [address] [id number] [address] [place] [address], [place] [address] May, [facility] [address] [id number] [address] [place] [address], [place] [address] Apr, [facility] [address] [id number] [address] [place] [address], [place] [address] Apr, [facility] [address] [id number] [address] [place] [address], [place] [address] Apr, [facility] [address] [id number] [address] [place] [address], [place] [address] March, [facility] [address] [id number] [address] [place] [address], [place] [address] March, [facility] [address] [id number] [address] [place] [address], [place] [address] Feb, [facility] [address] [id number] [address] [place] [address], [place] [address] Jan, [facility] [address] [id number] [address] [place] [address], [place] [address] Jan, [facility] [address] [id number] [address] [place] [address], [place] [address] Dec, [facility] [address] [id number] [address] [place] [address], [place] [address] Dec, [facility] [address] [id number] [address] [place] [address], [place] [address] Nov, [facility] [address] [id number] [address] [place] [address], [place] [address] Nov, [facility] [address] [id number] [address] [place] [address], [place] [address] Nov, [facility] [address] [id number] [address] [place] [address], [place] [address] Oct, [facility] [address] [id number] [address] [place] [address], [place] [address] Oct, [facility] [address] [id number] [address] [place] [address], [place] [address] Oct, [facility] [address] [id number] [address] [place] [address], [place] [address] Oct, [facility] [address] [id number] [address] [place] [address], [place] [address] Sep, [facility] [address] [id number] [address] [place] [address], [place] [address] Sep, [facility] [address] [id number] [address] [place] [address], [place] [address] Sep, [facility] [address] [id number] [address] [place] [address], [place] [address] Sep, [facility] [address] [id number] [address] [place] [address], [place] [address] Sep, [facility] [address] [id number] [address] [place] [address], [place] [address] Sep, [facility] [address] [id number] [address] [place] [address], [place] [address] Aug, [facility] [address] [id number] [address] [place] [address], [place] [address] 26 Jul, 2012 [facility] [address] [id number] [address] [place] [address], [place] [address] 19 Jul, 2012 [facility] [address] [id number] [address] [place] [address], [place] [address] 18 Jul, 2012 [facility] [address] [id number] [address] [place] [address] [place] [address] Jul, [facility] [address] [id number] [address] [place] [address], [place] [address] Jun, [facility] [address] [id number] [address] [place] [address], [place] [address] Jun, [facility] [address] [id number] [address] [place] [address], [place] [address] Jun, [facility] [address] [id number] [address] [place] [address], [place] [address] Jun, [facility] [address] [id number] [address] [place] [address], [place] [address] May, [facility] [address] [id number] [address] [place] [address], [place] [address] Apr, [facility] [address] [id number] [address] [place] [address], [place] [address] March, [facility] [address] [id number] [address] [place] [address], [place] [address] March, [facility] [address] [id number] [address] [place] [address], [place] [address] March, [facility] [address] [id number] [address] [place] [address], [place] [address] Feb, [facility] [address] [id number] [address] [place] [address], [place] [address] Feb, [facility] [address] [id number] [address] [place] [address], [place] [address] Jan, [facility] [address] [id number] [address] [place] [address], [place] [address] Jan, [facility] [address] [id number] [address] [place] [address], [place] [address] Jan, [facility] [address] [id number] [address] [place] [address], [place] [address] Dec, [facility] [address] [id number] [address] [place] [address], [place] [address] 16 Dec, 2011 [facility] [address] [id number] [address] [place] [address], [place] [address] Nov, [facility] [address] [id number] [address] [place] [address], [place] [address] Nov, [facility] [address] [id number] [address] [place] [address], [place] [address] Nov, [facility] [address] [id number] [address] [place] [address], [place] [address] Nov, [facility] [address] [id number] [address] [place] [address], [place] [address] Nov, [facility] [address] [id number] [address] [place] [address], [place] [address] Oct, [facility] [address] [id number] [address] [place] [address], [place] [address] Oct, [facility] [address] [id number] [address] [place] [address], [place] [address] 05 Oct, 2011 [facility] [address] [id number] [address] [place] [address], [place] [address] 02 Oct, 2011 [facility] [address] [id number] [address] [place] [address], [place] [address] Sep, [facility] [address] [id number] [address] [place] [address], [place] [address] Sep, [facility] [address] [id number] [address] [place] [address], [place] [address] 17 Sep, 2011 [facility] [address] [id number] [address] [place] [address], [place] [address] 13 Aug, 2011 [facility] [address] [id number] [address] [place] [address], [place] [address] 31 Oct, 2010 [facility] [address] [id number] [address] [place] [address], [place] [address] Oct, [facility] [address] [facility] [id number] [address] [address] Oct, [facility] [address] [facility] [id number] [address] [place] [address] Oct, IMMUNIZATIONS No Known Immunizations SOCIAL HISTORY Never Assessed REASON FOR VISIT PLAN OF CARE VITAL SIGNS MEDICATIONS Unknown Medications RESULTS No Results PROCEDURES Procedure Date Ordered Result Body Site PSYCH DIAGNOSTIC EVALUATION Jan 10, 2015 INSTRUCTIONS MEDICATIONS ADMINISTERED No Known Medications MEDICAL (GENERAL) HISTORY Type Description Date Medical History Guardian requests that we do not explain any treatment to patient! Medical History Posttraumatic stress disorder Medical History Bipolar disorder, unspecified Medical History Attention deficit disorder o f childhood without mention of hyperactivity Surgical History No Surgical history information
--- OUTSIDE RECORDS SUMMARY | 2020-04-25 14:46 | XMS REPORT ---
Author Author Ronna Blackmon Doctor Organization [facility] Address Unknown Phone Unavailable Care Team Providers Care Chief Design Engineer Name Role Phone Migration, Doctor Unavailable Unavailable PROBLEMS Type Condition ICD9-CM Code [id number] Code Onset Dates Condition S tatus SNOMED Code Problem Posttraumatic stress disorder F43.10 Active 46771659 Problem Anxiety F41.9 Active 12357492 Problem Bipolar disorder, unspecified F31.9 Active 35358089 Problem Attention deficit hyperactivity disorder (ADHD), combi dylon type F90.2 Active [id number] ALLERGIES No Information ENCOUNTERS Encounter Location Date Diagnosis [place] [address] [facility] [id number] [address] [place] [phone] Apr, [facility] [address] [facility] [id number] [address] [place] [phone] Feb, Bipolar disorder, unspecifie d F31.9 [facility] [place] [address] [place] [id number] [address] [place] [phone] Feb, Bipolar disorder, unspecifie d F31.9 ; Posttraumatic stress disorder F43.10 ; Attention deficit hyperactivity disorder (ADHD), combined type F90.2 and Anxiety F41.9 [facility] [place] [address] [facility] [id number] [address] [place] [phone] Feb, Bipolar disorder, unspecifie d F31.9 [facility] [id number] [place] [phone] Jan, [facility] [place] [address] [facility] [id number] [address] [place] [phone] Jan, [facility] [place] [address] [facility] [id number] [address] [place] [phone] Jan, Bipolar disorder, unspecifie d F31.9 [facility] [place] [address] [facility] [id number] [address] [place] [phone] Dec, [facility] [place] [address] [facility] [id number] [address] [place] [phone] Dec, Bipolar disorder, unspecifie d F31.9 ; Posttraumatic stress disorder F43.10 ; Attention deficit hyperactivity disorder (ADHD), combined type F90.2 and Anxiety F41.9 [facility] [place] [address] [facility] [id number] [address] [place] [id number] 18 Dec, 2019 Bipolar disorder, unspecifie d F31.9 [facility] [id number] [place] [phone] 17 Dec, 2019 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 requiring routine preventive dental care K08.9 [facility] [place] [address] [facility] [id number] [address] [place] [phone] 05 Dec, 2019 Bipolar disorder, unspecifie d F31.9 [facility] [address] [facility] [id number] [address] [place] [phone] Nov, Post-nasal drip R09.82 [facility] [place] [address] [facility] [id number] [address] [place] [phone] Nov, Bipolar disorder, unspecifie d F31.9 [facility] [place] [address] [facility] [id number] [address] [place] [phone] Oct, [facility] [place] [address] [facility] [id number] [address] [place] [id number] Oct, Bipolar disorder, unspecifie d F31.9 [facility] [place] [address] [facility] [id number] [address] [place] [phone] Sep, Bipolar disorder, unspecifie d F31.9 ; Attention deficit hyperactivity disorder (ADHD), combined type F90.2 and Posttraumatic stress disorder F43.10 [facility] [place] [address] [facility] [id number] [address] [place] [address] Sep, Bipolar disorder, unspecifie d F31.9 [facility] [address] [place] [address] [id number] [address] Sep, Dental examination Z01.20 an d Oral health maintenance status requiring routine preventive dental care K08.9 [facility] [place] [address] [facility] [id number] [address] [place] [id number] Aug, Bipolar disorder, unspecifie d F31.9 [facility] [place] [address] [facility] [id number] [address] [place] [phone] Jul, Bipolar disorder, unspecifie d F31.9 [facility] [place] [address] [facility] [id number] [address] [place] [phone] Jun, Bipolar disorder, unspecifie d F31.9 ; Posttraumatic stress disorder F43.10 ; Attention deficit hyperactivity disorder (ADHD), combined type F90.2 and Other group home (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 Z79.899 [facility] [address] [id number] [address] May, Caries K02.9 [facility] [address] [id number] [place] [address] May, Caries K02.9 [facility] [address] [place] [id number] [place] [phone] May, 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 requiring routine preventive dental care K08.9 [facility] [place] [address] [facility] [id number] [address] [place] [id number] Apr, Bipolar disorder, unspecifie d F31.9 [facility] [place] [address] [facility] [id number] [address] [place] [phone] Apr, [facility] [place] [address] [facility] [id number] [address] [place] [phone] Apr, Bipolar disorder, unspecifie d F31.9 [facility] [place] [address] [facility] [id number] [address] [place] [address] Apr, Bipolar disorder, unspecifie d F31.9 [facility] [place] [address] [facility] [id number] [address] [place] [id number] Apr, [facility] [place] [address] [facility] [id number] [address] [place] [phone] March, Bipolar disorder, unspecifie d F31.9 ; Attention deficit hyperactivity disorder (ADHD), combined type F90.2 ; Posttraumatic stress disorder F43.10 and Other group home (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 Z79.8[address] [id number] [place] [address] March, Dental examination Z01.20 and Caries K02 .9 [facility] [place] [address] [facility] [id number] [address] [place] [phone] Feb, Bipolar disorder, unspecifie d F31.9 [facility] [place] [address] [facility] [id number] [address] [place] [phone] Jan, 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 requiring routine preventive dental care K08.9 ; Dental examination Z01.20 and Caries K02.9 [facility] [place] [address] [facility] [id number] [address] [place] [phone] Jan, Bipolar disorder, unspecifie d F31.9 [facility] [place] [address] [facility] [id number] [address] [place] [address] Dec, Bipolar disorder, unspecifie d F31.9 ; Attention deficit hyperactivity disorder (ADHD), combined type F90.2 and Posttraumatic stress disorder F43.10 [facility] [address] [facility] [id number] [address] [place] [phone] Oct, Sore throat J02.9 [facility] [place] [address] [facility] [id number] [address] [place] [phone] Oct, [facility] [place] [address] [facility] [id number] [address] [place] [phone] Oct, Bipolar disorder, unspecifie d F31.9 [facility] [address] [id number] [address] [place] [id number] Sep, 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 requiring routine preventive dental care K08.9 [facility] [place] [address] [id number] [address] [place] [phone] Sep, Bipolar disorder, unspecifie d F31.9 ; Attention deficit hyperactivity disorder (ADHD), combined type F90.2 and Posttraumatic stress disorder F43.10 [facility] [address] [id number] [address] [place] [phone] Aug, Lymphadenopathy of left cerv ical region R59.0 [facility] [place] [address] [id number] [address] [place] [phone] Aug, Encounter for immunization Z 23 [facility] [place] [address] [facility] [id number] [address] [place] [id number] Aug, 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.899 [facility] [place] [address] [facility] [id number] [address] [place] [phone] Jul, Bipolar disorder, unspecifie d F31.9 [facility] [place] [address] [facility] [id number] [address] [place] [phone] Jun, Bipolar disorder, unspecifie d F31.9 [facility] [place] [address] [facility] [id number] [address] [place] [phone] Jun, [facility] [place] [address] [id number] [address] [place] [phone] Jun, Bipolar disorder, unspecifie d F31.9 ; Attention deficit hyperactivity disorder (ADHD), combined type F90.2 ; Posttraumatic stress disorder F43.10 and Other group home (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 Z79.899 [facility] [address] [id number] [address] [place] [address] [id number] Jun, Dental examination Z01.20 [facility] [place] [address] [id number] [address] [place] [phone] May, [facility] [place] [address] [facility] [id number] [address] [place] [id number] Apr, Bipolar disorder, unspecifie d F31.9 [facility] [place] [address] [place] [id number] [place] [phone] March, Bipolar disorder, unspecifie d F31.9 ; Attention deficit hyperactivity disorder (ADHD), combined type F90.2 and Posttraumatic stress disorder F43.10 [facility] [place] [address] [place] [id number] [address] [place] [phone] Feb, [facility] [address] [facility] [id number] [address] [place] [phone] Feb, Insect bite (nonvenomous), l eft knee, initial encounter S80.262A and Bitten or stung by nonvenomous insect and other nonvenomous arthropods, initial encounter W57.XXXA [facility] [place] [address] [place] [id number] [address] [place] [phone] Feb, Bipolar disorder, unspecifie d F31.9 [facility] [address] [facility] [id number] [address] [place] [address] [id number] Feb, Dental examination Z01.20 [facility] [place] [address] [place] [id number] [address] [place] [phone] Feb, Bipolar disorder, unspecifie d F31.9 ; Attention deficit hyperactivity disorder (ADHD), combined type F90.2 and Posttraumatic stress disorder F43.10 [facility] [address] [id number] [address] [place] [id number] Feb, Dental examination Z01.20 [facility] [place] [address] [facility] [id number] [address] [place] [phone] Jan, Bipolar disorder, unspecifie d F31.9 [facility] [place] [address] [place] [id number] [address] [place] [phone] Jan, Attention deficit hyperactiv ity disorder (ADHD), combined type F90.2 [facility] [place] [address] [place] [id number] [address] [place] [phone] Dec, Posttraumatic stress disorde r F43.10 [facility] [place] [address] [id number] [address] [place] [phone] 12 Dec, 2017 Posttraumatic stress disorde r F43.10 [facility] [address] [id number] [address] [place] [address] [id number] Nov, Dental examination Z01.20 [facility] [id number] [place] [address] [id number] Nov, Encounter for dental exam an d cleaning w/o abnormal findings Z01.20 [facility] [id number] [place] [address] [id number] Nov, Dental examination Z01.20 [facility] [place] [address] [facility] [id number] [address] [place] [phone] Sep, Bipolar disorder, unspecifie d F31.9 ; Posttraumatic stress disorder F43.10 and Attention deficit hyperactivity disorder (ADHD), combined type F90.2 [facility] [place] [address] [facility] [id number] [address] [place] [phone] Aug, Posttraumatic stress disorde r F43.10 [facility] [place] [address] [place] [id number] [address] [place] [phone] 15 Jul, 2017 Other group home (current) dr ug therapy Z79.899 [facility] [place] [address] [facility] [id number] [address] [place] [phone] Jul, Bipolar disorder, unspecifie d F31.9 ; Attention deficit hyperactivity disorder (ADHD), combined type F90.2 and Posttraumatic stress disorder F43.10 [facility] [place] [address] [facility] [id number] [address] [place] [phone] Jun, Bipolar disorder, unspecifie d F31.9 ; Posttraumatic stress disorder F43.10 ; Attention deficit hyperactivity disorder (ADHD), combined type F90.2 and 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 [facility] [place] [address] [id number] [address] [place] [phone] March, Bipolar disorder, unspecifie d F31.9 ; Posttraumatic stress disorder F43.10 and Attention deficit hyperactivity disorder (ADHD), combined type F90.2 [facility] [place] [address] [id number] [address] [place] [phone] Dec, Bipolar disorder, unspecifie d F31.9 ; Posttraumatic stress disorder F43.10 and Attention deficit hyperactivity disorder (ADHD), combined type F90.2 [facility] [address] [id number] [address] [place] [address], [place] [address] Dec, [facility] [address] [id number] [address] [place] [phone] Sep, [facility] [address] [id number] [address] [place] [phone] Aug, Bipolar disorder, unspecifie d F31.9 ; Posttraumatic stress disorder F43.10 and Attention deficit hyperactivity disorder (ADHD), combined type F90.2 [facility] [address] [id number] [address] [place] [phone] Jun, [facility] [address] [id number] [address] [place] [phone] March, [facility] [address] [id number] [address] [place] [phone] Feb, Bipolar disorder, unspecifie d F31.9 ; Attention deficit hyperactivity disorder (ADHD), combined type F90.2 and Posttraumatic stress disorder F43.10 [facility] [address] [id number] [address] [place] [id number] Feb, [facility] [address] [id number] [address] [place] [phone] Feb, [facility] [address] [id number] [address] [place] [phone] Feb, [facility] [address] [id number] [address] [place] [phone] Jan, [facility] [address] [id number] [address] [place] [address] [id number] Dec, Dental examination Z01.20 [facility] [address] [facility] [id number] [address] [place] [phone] Sep, [facility] [address] [facility] [id number] [address] [place] [phone] Sep, Attention deficit hyperactiv ity disorder (ADHD), combined type F90.2 ; Posttraumatic stress disorder F43.10 and Bipolar disorder, unspecified F31.9 [facility] [address] [facility] [id number] [address] [place] [phone] Aug, [facility] [address] [facility] [id number] [address] [place] [phone] Aug, [facility] [address] [facility] [id number] [address] [place] [phone] Jul, [facility] [address] [facility] [id number] [address] [place] [phone] May, Bipolar disorder, unspecifie d 296.80 ; 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.00 and Posttraumatic stress disorder 309.81 [facility] [address] [facility] [id number] [address] [place] [phone] May, [facility] [address] [facility] [id number] [address] [place] [phone] May, [facility] [address] [facility] [id number] [address] [place] [id number] May, [facility] [address] [facility] [id number] [address] [place] [phone] Apr, [facility] [address] [facility] [id number] [address] [place] [phone] Apr, [facility] [address] [facility] [id number] [address] [place] [phone] Apr, [facility] [address] [id number] [address] [place] [address], [place] [id number] March, [facility] [address] [id number] [address] [place] [address], [place] [id number] March, [facility] [address] [id number] [address] [place] [address], [place] [id number] March, [facility] [address] [id number] [address] [place] [address], [place] [id number] Feb, [facility] [address] [id number] [address] [place] [address], [place] [id number] Feb, [facility] [address] [id number] [address] [place] [address], [place] [id number] Jan, [facility] [address] [id number] [address] [place] [address], [place] [id number] Jan, [facility] [address] [id number] [address] [place] [address], [place] [id number] Jan, [facility] [address] [id number] [address] [place] [address], [place] [id number] Jan, [facility] [address] [id number] [address] [place] [address], [place] [id number] Jan, [facility] [address] [id number] [address] [place] [address], [place] [id number] Jan, [facility] [address] [id number] [address] [place] [address], [place] [id number] Jan, [facility] [address] [id number] [address] [place] [address], [place] [id number] Jan, [facility] [address] [id number] [address] [place] [address], [place] [id number] Jan, [facility] [address] [id number] [address] [place] [address], [place] [id number] Jan, [facility] [address] [id number] [address] [place] [address], [place] [id number] Dec, 2014 [facility] [address] [id number] [address] [place] [address], [place] [id number] Dec, 2014 [facility] [address] [id number] [address] [place] [address], [place] [id number] Dec, 2014 [facility] [address] [id number] [address] [place] [address], [place] [id number] Dec, [facility] [address] [id number] [address] [place] [address], [place] [id number] Oct, [facility] [address] [id number] [address] [place] [address], [place] [id number] Oct, [facility] [address] [id number] [address] [place] [address], [place] [id number] Oct, [facility] [address] [id number] [address] [place] [address], [place] [address] Oct, [facility] [address] [id number] [address] [place] [address], [place] [id number] Oct, [facility] [address] [id number] [address] [place] [address], [place] [address] Oct, [facility] [address] [id number] [address] [place] [address], [place] [address] Oct, [facility] [address] [id number] [address] [place] [address], [place] [address] Sep, [facility] [address] [id number] [address] [place] [address], [place] [address] Sep, [facility] [address] [id number] [address] [place] [address], [place] [address] Sep, [facility] [address] [id number] [address] [place] [address], [place] [address] Sep, [facility] [address] [id number] [address] [place] [address], [place] [address] Sep, [facility] [address] [id number] [address] [place] [address], [place] [id number] Sep, [facility] [address] [id number] [address] [place] [address], [place] [address] Sep, [facility] [address] [id number] [address] [place] [address], [place] [address] Sep, [facility] [address] [id number] [address] [place] [address], [place] [address] Aug, [facility] [address] [id number] [address] [place] [address], [place] [address] Aug, [facility] [address] [id number] [address] [place] [address], [place] [address] Aug, [facility] [address] [id number] [address] [place] [address], [place] [address] Aug, [facility] [address] [id number] [address] [place] [address], [place] [address] Jul, [facility] [address] [id number] [address] [place] [address], [place] [address] Jul, [facility] [address] [id number] [address] [place] [address], [place] [address] Jul, [facility] [address] [id number] [address] [place] [address], [place] [address] Jul, [facility] [address] [id number] [address] [place] [address], [place] [address] Jun, [facility] [address] [id number] [address] [place] [address], [place] [address] Jun, [facility] [address] [id number] [address] [place] [address], [place] [address] Jun, [facility] [address] [id number] [address] [place] [address], [place] [address] Jun, [facility] [address] [id number] [address] [place] [address], [place] [address] May, [facility] [address] [id number] [address] [place] [address], [place] [address] May, [facility] [address] [id number] [address] [place] [address], [place] [address] May, [facility] [address] [id number] [address] [place] [address], [place] [address] May, [facility] [address] [id number] [address] [place] [address], [place] [address] Apr, [facility] [address] [id number] [address] [place] [address], [place] [address] Apr, [facility] [address] [id number] [address] [place] [address], [place] [address] Apr, [facility] [address] [id number] [address] [place] [address], [place] [address] Apr, [facility] [address] [id number] [address] [place] [address], [place] [address] Apr, [facility] [address] [id number] [address] [place] [address], [place] [address] Apr, [facility] [address] [id number] [address] [place] [address], [place] [address] Apr, [facility] [address] [id number] [address] [place] [address], [place] [address] Apr, [facility] [address] [id number] [address] [place] [address], [place] [address] Apr, [facility] [address] [id number] [address] [place] [address], [place] [address] Apr, [facility] [address] [id number] [address] [place] [address], [place] [address] Apr, [facility] [address] [id number] [address] [place] [address], [place] [address] Apr, [facility] [address] [id number] [address] [place] [id number] Apr, [facility] [address] [id number] [address] [place] [address], [place] [address] March, [facility] [address] [id number] [address] [place] [address], [place] [address] March, [facility] [address] [id number] [address] [place] [address], [place] [address] March, [facility] [address] [id number] [address] [place] [address], [place] [address] March, [facility] [address] [id number] [address] [place] [address], [place] [address] Jan, [facility] [address] [id number] [address] [place] [address], [place] [address] Jan, [facility] [address] [id number] [address] [place] [address], [place] [address] Jan, [facility] [address] [id number] [address] [place] [address], [place] [address] Jan, [facility] [address] [id number] [address] [place] [address], [place] [address] Jan, [facility] [address] [id number] [address] [place] [address], [place] [address] Jan, [facility] [address] [id number] [address] [place] [address], [place] [address] Dec, [facility] [address] [id number] [address] [place] [address], [place] [address] Dec, [facility] [address] [id number] [address] [place] [address], [place] [address] Dec, [facility] [address] [id number] [address] [place] [address], [place] [address] Dec, [facility] [address] [id number] [address] [place] [address], [place] [address] Nov, [facility] [address] [id number] [address] [place] [address], [place] [address] Nov, [facility] [address] [id number] [address] [place] [address], [place] [address] Nov, [facility] [address] [id number] [address] [place] [address], [place] [address] Nov, [facility] [address] [id number] [address] [place] [address], [place] [address] Oct, [facility] [address] [id number] [address] [place] [address], [place] [address] Oct, [facility] [address] [id number] [address] [place] [address], [place] [address] Oct, [facility] [address] [id number] [address] [place] [address], [place] [address] Oct, [facility] [address] [id number] [address] [place] [address], [place] [address] Oct, [facility] [address] [id number] [address] [place] [address], [place] [address] Oct, [facility] [address] [id number] [address] [place] [address], [place] [address] Oct, [facility] [address] [id number] [address] [place] [address], [place] [address] Oct, [facility] [address] [id number] [address] [place] [address], [place] [address] Sep, [facility] [address] [id number] [address] [place] [address], [place] [address] Sep, [facility] [address] [id number] [address] [place] [address], [place] [address] Jul, [facility] [address] [id number] [address] [place] [address], [place] [address] 12 Jul, 2013 [facility] [address] [id number] [address] [place] [address], [place] [address] Jul, [facility] [address] [id number] [address] [place] [address], [place] [address] Jul, [facility] [address] [id number] [address] [place] [address], [place] [address] Jun, [facility] [address] [id number] [address] [place] [address], [place] [address] Jun, [facility] [address] [id number] [address] [place] [address], [place] [address] May, [facility] [address] [id number] [address] [place] [address], [place] [address] Apr, [facility] [address] [id number] [address] [place] [address], [place] [address] Apr, [facility] [address] [id number] [address] [place] [address], [place] [address] Apr, [facility] [address] [id number] [address] [place] [address], [place] [address] March, [facility] [address] [id number] [address] [place] [address], [place] [address] March, [facility] [address] [id number] [address] [place] [address], [place] [address] Feb, [facility] [address] [id number] [address] [place] [address], [place] [address] Jan, [facility] [address] [id number] [address] [place] [address], [place] [address] Jan, [facility] [address] [id number] [address] [place] [address], [place] [address] Dec, [facility] [address] [id number] [address] [place] [address], [place] [address] Dec, [facility] [address] [id number] [address] [place] [address], [place] [address] Nov, [facility] [address] [id number] [address] [place] [address], [place] [address] Nov, [facility] [address] [id number] [address] [place] [address], [place] [address] Nov, [facility] [address] [id number] [address] [place] [address], [place] [address] Oct, [facility] [address] [id number] [address] [place] [address], [place] [address] Oct, [facility] [address] [id number] [address] [place] [address], [place] [address] Oct, [facility] [address] [id number] [address] [place] [address], [place] [address] Oct, [facility] [address] [id number] [address] [place] [address], [place] [address] Sep, [facility] [address] [id number] [address] [place] [address], [place] [address] Sep, [facility] [address] [id number] [address] [place] [address], [place] [address] Sep, [facility] [address] [id number] [address] [place] [address], [place] [address] Sep, [facility] [address] [id number] [address] [place] [address], [place] [address] 15 Sep, 2012 [facility] [address] [id number] [address] [place] [address], [place] [address] 15 Sep, 2012 [facility] [address] [id number] [address] [place] [address], [place] [address] 02 Aug, 2012 [facility] [address] [id number] [address] [place] [address], [place] [address] 26 Jul, 2012 [facility] [address] [id number] [address] [place] [address], [place] [address] 19 Jul, 2012 [facility] [address] [id number] [address] [place] [address], [place] [address] Jul, [facility] [address] [id number] [address] [place] [address], [place] [address] Jul, [facility] [address] [id number] [address] [place] [address], [place] [address] Jun, [facility] [address] [id number] [address] [place] [address], [place] [address] Jun, [facility] [address] [id number] [address] [place] [address], [place] [address] Jun, [facility] [address] [id number] [address] [place] [address], [place] [address] Jun, [facility] [address] [id number] [address] [place] [address], [place] [address] May, [facility] [address] [id number] [address] [place] [address], [place] [address] Apr, [facility] [address] [id number] [address] [place] [address], [place] [address] March, [facility] [address] [id number] [address] [place] [address], [place] [address] March, [facility] [address] [id number] [address] [place] [address], [place] [address] March, [facility] [address] [id number] [address] [place] [address], [place] [address] Feb, [facility] [address] [id number] [address] [place] [address], [place] [id number] Feb, [facility] [address] [id number] [address] [place] [address], [place] [address] Jan, [facility] [address] [id number] [address] [place] [address], [place] [address] Jan, [facility] [address] [id number] [address] [place] [address], [place] [address] Jan, [facility] [address] [id number] [address] [place] [address], [place] [address] Dec, [facility] [address] [id number] [address] [place] [address], [place] [address] 16 Dec, 2011 [facility] [address] [id number] [address] [place] [address], [place] [address] Nov, [facility] [address] [id number] [address] [place] [address], [place] [address] Nov, [facility] [address] [id number] [address] [place] [address], [place] [address] 13 Nov, 2011 [facility] [address] [id number] [address] [place] [address], [place] [address] Nov, [facility] [address] [id number] [address] [place] [address], [place] [address] Nov, [facility] [address] [id number] [address] [place] [address], [place] [address] Oct, [facility] [address] [id number] [address] [place] [address], [place] [address] Oct, [facility] [address] [id number] [address] [place] [address], [place] [address] 05 Oct, 2011 [facility] [address] [id number] [address] [place] [address], [place] [address] Oct, [facility] [address] [id number] [address] [place] [address], [place] [address] Sep, [facility] [address] [id number] [address] [place] [address], [place] [address] Sep, [facility] [address] [id number] [address] [place] [address], [place] [address] 17 Sep, 2011 [facility] [address] [id number] [address] [place] [address], [place] [address] 13 Aug, 2011 [facility] [address] [id number] [address] [place] [address], [place] [address] 31 Oct, 2010 [facility] [place] [address] [facility] [id number] [address] [place] [id number] Oct, [facility] [place] [address] [facility] [id number] [address] [place] [id number] Oct, [facility] [place] [address] [facility] [id number] [address] [place] [id number] Oct, IMMUNIZATIONS No Known Immunizations SOCIAL HISTORY [...]
--- OUTSIDE RECORDS SUMMARY | 2020-04-25 14:47 | XMS REPORT ---
Author Author Ronna KILLIAN [facility] Address [address] [place] [address] Care Team Providers Care Nursing Techn Name Role Phone PAULETTE KILLIAN Unavailable PROBLEMS Type Condition ICD9-CM Code [id number] Code Onset Dates Condition S tatus SNOMED Code Problem Posttraumatic stress disorder F43.10 Active 73560972 Problem Anxiety F41.9 Active 79260895 Problem Bipolar disorder, unspecified F31.9 Active [id number] Problem Attention deficit hyperactivity disorder (ADHD), combi dylon type F90.2 Active [id number] ALLERGIES No Known Allergies ENCOUNTERS Encounter Location Date Diagnosis [facility] [place] [address] [id number] [address] [place] [id number] Feb, [facility] [place] [address] [id number] [address] [place] [phone] Feb, Bipolar disorder, unspecifie d F31.9 [facility] [id number] [place] [phone] Jan, [facility] [place] [address] [id number] [address] [place] [phone] Jan, [facility] [place] [address] [id number] [address] [place] [phone] Jan, Bipolar disorder, unspecifie d F31.9 [facility] [place] [address] [facility] [id number] [address] [place] [phone] Dec, [facility] [place] [address] [id number] [address] [place] [phone] Dec, Bipolar disorder, unspecifie d F31.9 ; Posttraumatic stress disorder F43.10 ; Attention deficit hyperactivity disorder (ADHD), combined type F90.2 and Anxiety F41.9 [facility] [place] [address] [facility] [id number] [address] [place] [phone] 18 Dec, 2019 Bipolar disorder, unspecifie d F31.9 [facility] [id number] [place] [phone] 17 Dec, 2019 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 requiring routine preventive dental care K08.9 [facility] [place] [address] [facility] [id number] [address] [place] [phone] 05 Dec, 2019 Bipolar disorder, unspecifie d F31.9 [facility] [address] [facility] [id number] [address] [place] [phone] 13 Nov, 2019 Post-nasal drip R09.82 [facility] [place] [address] [facility] [id number] [address] [place] [phone] 07 Nov, 2019 Bipolar disorder, unspecifie d F31.9 [facility] [place] [address] [facility] [id number] [address] [place] [phone] Oct, [facility] [place] [address] [facility] [id number] [address] [place] [phone] Oct, Bipolar disorder, unspecifie d F31.9 [facility] [place] [address] [facility] [id number] [address] [place] [phone] Sep, Bipolar disorder, unspecifie d F31.9 ; Attention deficit hyperactivity disorder (ADHD), combined type F90.2 and Posttraumatic stress disorder F43.10 [facility] [place] [address] [facility] [id number] [address] [place] [id number] 08 Sep, 2019 Bipolar disorder, unspecifie d F31.9 [facility] [id number] [place] [phone] 06 Sep, 2019 Dental examination Z01.20 an d Oral health maintenance status requiring routine preventive dental care K08.9 [facility] [place] [address] [facility] [id number] [address] [place] [phone] Aug, Bipolar disorder, unspecifie d F31.9 [facility] [place] [address] [facility] [id number] [address] [place] [phone] Jul, Bipolar disorder, unspecifie d F31.9 [facility] [place] [address] [facility] [id number] [address] [place] [phone] Jun, Bipolar disorder, unspecifie d F31.9 ; Posttraumatic stress disorder F43.10 ; Attention deficit hyperactivity disorder (ADHD), combined type F90.2 and Other halfway (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 Z79.899 [facility] [address] [id number] [place] [address] May, Caries K02.9 [facility] [address] [id number] [place] [address] May, Caries K02.9 [facility] [address] [facility] [id number] [place] [phone] May, 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 requiring routine preventive dental care K08.9 [facility] [place] [address] [facility] [id number] [address] [place] [phone] Apr, Bipolar disorder, unspecifie d F31.9 [facility] [place] [address] [facility] [id number] [address] [place] [phone] Apr, [facility] [place] [address] [facility] [id number] [address] [place] [phone] Apr, Bipolar disorder, unspecifie d F31.9 [facility] [place] [address] [facility] [id number] [address] [place] [phone] Apr, Bipolar disorder, unspecifie d F31.9 [facility] [place] [address] [facility] [id number] [address] [place] [phone] Apr, [facility] [place] [address] [facility] [id number] [address] [place] [phone] March, Bipolar disorder, unspecifie d F31.9 ; Attention deficit hyperactivity disorder (ADHD), combined type F90.2 ; Posttraumatic stress disorder F43.10 and Other halfway (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 Z79.[address] [facility] [id number] [id number] [place] [phone] March, Dental examination Z01.20 and Caries K02 .9 [facility] [place] [address] [id number] [address] [place] [phone] Feb, Bipolar disorder, unspecifie d F31.9 [facility] [place] [address] [id number] [address] [place] [phone] Jan, Oral health maintenance stat requiring routine preventive dental care K08.9 ; Dental examination Z01.20 and Caries K02.9 [facility] [place] [address] [id number] [address] [place] [phone] Jan, Bipolar disorder, unspecifie d F31.9 [facility] [place] [address] [id number] [address] [place] [phone] Dec, Bipolar disorder, unspecifie d F31.9 ; Attention deficit hyperactivity disorder (ADHD), combined type F90.2 and Posttraumatic stress disorder F43.[address] [facility] [address] [id number] [address] [place] [phone] Oct, Sore throat J02.9 [facility] [place] [address] [id number] [address] [place] [phone] Oct, [facility] [place] [address] [id number] [address] [place] [phone] Oct, Bipolar disorder, unspecifie d F31.9 [facility] [address] [id number] [address] [place] [id number] Sep, Oral health maintenance stat requiring routine preventive dental care K08.9 [facility] [place] [address] [id number] [address] [place] [phone] Sep, Bipolar disorder, unspecifie d F31.9 ; Attention deficit hyperactivity disorder (ADHD), combined type F90.2 and Posttraumatic stress disorder F43.10 [facility] [address] [facility] [id number] [address] [place] [phone] Aug, Lymphadenopathy of left cerv ical region R59.0 [facility] [place] [address] [facility] [id number] [address] [place] [phone] 05 Aug, 2018 Encounter for immunization Z 23 [facility] [place] [address] [facility] [id number] [address] [place] [phone] Aug, Other halfway (current) dr nubia therapy Z79.899 [facility] [place] [address] [facility] [id number] [address] [place] [phone] Jul, Bipolar disorder, unspecifie d F31.9 [facility] [place] [address] [facility] [id number] [address] [place] [phone] Jun, Bipolar disorder, unspecifie d F31.9 [facility] [place] [address] [facility] [id number] [address] [place] [phone] Jun, [facility] [place] [address] [facility] [id number] [address] [place] [phone] Jun, Bipolar disorder, unspecifie d F31.9 ; Attention deficit hyperactivity disorder (ADHD), combined type F90.2 ; Posttraumatic stress disorder F43.10 and Other machine long goods helper (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 Z79.899 [facility] [address] [id number] [address] [place] [id number] Jun, Dental examination Z01.20 [facility] [place] [address] [facility] [id number] [address] [place] [phone] May, [facility] [place] [address] [facility] [id number] [address] [place] [phone] Apr, Bipolar disorder, unspecifie d F31.9 [facility] [place] [address] [facility] [id number] [address] [place] [phone] March, Bipolar disorder, unspecifie d F31.9 ; Attention deficit hyperactivity disorder (ADHD), combined type F90.2 and Posttraumatic stress disorder F43.10 [facility] [place] [address] [facility] [id number] [address] [place] [phone] Feb, [facility] [id number] [place] [phone] Feb, Insect bite (nonvenomous), l eft knee, initial encounter S80.262A and Bitten or stung by nonvenomous insect and other nonvenomous arthropods, initial encounter W57.XXXA [facility] [place] [address] [id number] [address] [place] [phone] Feb, Bipolar disorder, unspecifie d F31.9 [facility] [address] [id number] Feb, Dental examination Z01.20 [facility] [place] [address] [id number] Feb, Bipolar disorder, unspecifie d F31.9 ; Attention deficit hyperactivity disorder (ADHD), combined type F90.2 and Posttraumatic stress disorder F43.10 [facility] [id number] [place] [address] [id number] Feb, Dental examination Z01.20 [facility] [place] [address] [phone] Jan, Bipolar disorder, unspecifie d F31.9 [facility] [place] [address] [phone] Jan, Attention deficit hyperactiv ity disorder (ADHD), combined type F90.2 [facility] [place] [address] [id number] [address] [place] [phone] Dec, Posttraumatic stress disorde r F43.10 [facility] [place] [id number] [place] [phone] Dec, Posttraumatic stress disorde r F43.10 [facility] [id number] [place] [address] [id number] Nov, Dental examination Z01.20 [facility] [address] [id number] [place] [id number] 03 Nov, 2017 Encounter for dental exam an d cleaning w/o abnormal findings Z01.20 [facility] [address] [id number] [place] [id number] 03 Nov, 2017 Dental examination Z01.20 [facility] [place] [address] [facility] [id number] [address] [place] [phone] 08 Sep, 2017 Bipolar disorder, unspecifie d F31.9 ; Posttraumatic stress disorder F43.10 and Attention deficit hyperactivity disorder (ADHD), combined type F90.2 [facility] [place] [address] [facility] [id number] [address] [place] [id number] 09 Aug, 2017 Posttraumatic stress disorde r F43.10 [facility] [place] [address] [facility] [id number] [address] [place] [id number] 15 Jul, 2017 Other machine long goods helper (current) dr ug therapy Z79.899 [facility] [place] [address] [facility] [id number] [address] [place] [phone] 11 Jul, 2017 Bipolar disorder, unspecifie d F31.9 ; Attention deficit hyperactivity disorder (ADHD), combined type F90.2 and Posttraumatic stress disorder F43.10 [facility] [place] [address] [facility] [id number] [address] [place] [phone] Jun, Bipolar disorder, unspecifie d F31.9 ; Posttraumatic stress disorder F43.10 ; Attention deficit hyperactivity disorder (ADHD), combined type F90.2 and Other halfway (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 Z79.899 [facility] [place] [address] [facility] [id number] [address] [place] [phone] March, Bipolar disorder, unspecifie d F31.9 ; Posttraumatic stress disorder F43.10 and Attention deficit hyperactivity disorder (ADHD), combined type F90.2 [facility] [place] [address] [facility] [id number] [address] [place] [id number] 08 Dec, 2016 Bipolar disorder, unspecifie d F31.9 ; Posttraumatic stress disorder F43.10 and Attention deficit hyperactivity disorder (ADHD), combined type F90.2 [facility] [place] [address] [id number] [address] [place] [phone] Dec, [facility] [place] [address] [id number] [address] [place] [phone] Sep, [facility] [place] [address] [id number] [address] [place] [phone] Aug, Bipolar disorder, unspecifie d F31.9 ; Posttraumatic stress disorder F43.10 and Attention deficit hyperactivity disorder (ADHD), combined type F90.2 [facility] [place] [address] [id number] [address] [place] [phone] Jun, [facility] [place] [address] [id number] [address] [place] [id number] March, [facility] [place] [address] [id number] [address] [place] [phone] Feb, Bipolar disorder, unspecifie d F31.9 ; Attention deficit hyperactivity disorder (ADHD), combined type F90.2 and Posttraumatic stress disorder F43.10 [facility] [place] [address] [id number] [address] [place] [phone] Feb, [facility] [place] [address] [id number] [address] [place] [phone] Feb, [facility] [place] [address] [id number] [address] [place] [phone] Feb, [facility] [place] [address] [id number] [address] [place] [phone] Jan, [facility] [address] [id number] [address] [place] [address] [id number] Dec, Dental examination Z01.20 [facility] [place] [address] [id number] [address] [place] [id number] Sep, [facility] [place] [address] [id number] [address] [place] [id number] Sep, Attention deficit hyperactiv ity disorder (ADHD), combined type F90.2 ; Posttraumatic stress disorder F43.10 and Bipolar disorder, unspecified F31.9 [facility] [place] [address] [id number] [address] [place] [id number] Aug, [facility] [place] [address] [facility] [id number] [address] [place] [phone] Aug, [facility] [place] [address] [facility] [id number] [address] [place] [phone] Jul, [facility] [place] [address] [facility] [id number] [address] [place] [phone] May, Bipolar disorder, unspecifie d 296.80 ; 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.00 and Posttraumatic stress disorder 309.81 [facility] [place] [address] [facility] [id number] [address] [place] [phone] May, [facility] [place] [address] [facility] [id number] [address] [place] [id number] May, [facility] [place] [address] [facility] [id number] [address] [place] [phone] May, [facility] [place] [address] [facility] [id number] [address] [place] [phone] Apr, [facility] [place] [address] [facility] [id number] [address] [place] [phone] Apr, [facility] [place] [address] [facility] [id number] [address] [place] [phone] Apr, [facility] [place] [address] [facility] [id number] [address] [place] [phone] March, [facility] [place] [address] [facility] [id number] [address] [place] [phone] March, [facility] [place] [address] [facility] [id number] [address] [place] [phone] March, [facility] [address] [id number] [address] [place] [address], [place] [id number] 14 Feb, 2015 [facility] [address] [id number] [address] [place] [address], [place] [id number] Feb, [facility] [address] [id number] [address] [place] [address], [place] [id number] Jan, [facility] [address] [id number] [address] [place] [address], [place] [id number] Jan, [facility] [address] [id number] [address] [place] [address], [place] [id number] Jan, [facility] [address] [id number] [address] [place] [address], [place] [id number] Jan, [facility] [address] [id number] [address] [place] [address], [place] [id number] Jan, [facility] [address] [id number] [address] [place] [address], [place] [id number] Jan, [facility] [address] [id number] [address] [place] [address], [place] [address] Jan, [facility] [address] [id number] [address] [place] [address], [place] [id number] Jan, [facility] [address] [id number] [address] [place] [address], [place] [id number] Jan, [facility] [address] [id number] [address] [place] [phone] Jan, [facility] [address] [id number] [address] [place] [address], [place] [address] Dec, [facility] [address] [id number] [address] [place] [address], [place] [id number] Dec, [facility] [address] [id number] [address] [place] [address], [place] [id number] Dec, [facility] [address] [id number] [address] [place] [id number] 06 Dec, 2014 [facility] [address] [id number] [address] [place] [address], [place] [id number] Oct, [facility] [address] [id number] [address] [place] [address], [place] [id number] Oct, [facility] [address] [id number] [address] [place] [address], [place] [id number] Oct, [facility] [address] [id number] [address] [place] [address], [place] [id number] Oct, [facility] [address] [id number] [address] [place] [address], [place] [id number] Oct, [facility] [address] [id number] [address] [place] [address], [place] [id number] Oct, [facility] [address] [id number] [address] [place] [address], [place] [id number] Oct, [facility] [address] [id number] [address] [place] [address], [place] [id number] Sep, [facility] [address] [id number] [address] [place] [address], [place] [id number] Sep, [facility] [address] [id number] [address] [place] [address], [place] [id number] Sep, [facility] [address] [id number] [address] [place] [address], [place] [id number] Sep, [facility] [address] [id number] [address] [place] [address], [place] [address] Sep, [facility] [address] [id number] [address] [place] [address], [place] [address] Sep, [facility] [address] [id number] [address] [place] [address], [place] [address] Sep, [facility] [address] [id number] [address] [place] [address], [place] [address] Sep, [facility] [address] [id number] [address] [place] [address], [place] [address] Aug, [facility] [place] [facility] [address] [id number] [address] [place] [address], [place] [address] Aug, [facility] [place] [facility] [address] [id number] [address] [place] [address], [place] [address] Aug, [facility] [place] [facility] [address] [id number] [address] [place] [address], [place] [address] Aug, [facility] [place] [facility] [address] [id number] [address] [place] [address], [place] [address] Jul, [facility] [place] [facility] [address] [id number] [address] [place] [address], [place] [address] Jul, [facility] [place] [facility] [address] [id number] [address] [place] [address], [place] [address] Jul, [facility] [place] [facility] [address] [id number] [address] [place] [address], [place] [address] Jul, [facility] [place] [facility] [address] [id number] [address] [place] [address], [place] [address] Jun, [facility] [place] [facility] [address] [id number] [address] [place] [address], [place] [address] Jun, [facility] [place] [address] [id number] [address] [place] [address], [place] [address] Jun, [facility] [place] [address] [id number] [address] [place] [address], [place] [address] Jun, [facility] [place] [facility] [address] [id number] [address] [place] [address], [place] [address] May, [facility] [place] [facility] [address] [id number] [address] [place] [address], [place] [address] May, [facility] [place] [facility] [address] [id number] [address] [place] [address], [place] [address] May, [facility] [place] [facility] [address] [id number] [address] [place] [address], [place] [address] May, [facility] [place] [facility] [address] [id number] [facility] [place] [address] Apr, [facility] [place] [address] [id number] [facility] [place] [address] Apr, [facility] [place] [facility] [address] [id number] [facility] [place] [address] Apr, [facility] [place] [facility] [address] [id number] [address] [place] [address], [place] [address] Apr, [facility] [place] [facility] [address] [id number] [facility] [place] [address] Apr, [facility] [address] [id number] [address] [place] [address], [place] [address] Apr, [facility] [place] [facility] [address] [id number] [address] [place] [address], [place] [address] Apr, [facility] [address] [id number] [address] [place] [address], [place] [address] Apr, [facility] [facility] [address] [id number] [address] [place] [address], [place] [address] Apr, [facility] [place] [facility] [address] [id number] [address] [place] [address], [place] [address] Apr, [facility] [place] [facility] [address] [id number] [address] [place] [address], [place] [address] Apr, [facility] [place] [facility] [address] [id number] [address] [place] [address], [place] [address] Apr, [facility] [address] [id number] [address] [place] [address], [place] [address] Apr, [facility] [place] [facility] [address] [id number] [address] [place] [address], [place] [address] March, [facility] [place] [facility] [address] [id number] [facility] [place] [address] March, [facility] [place] [facility] [address] [id number] [address] [address] March, [facility] [address] [id number] [address] [place] [address], [place] [address] March, [facility] [address] [id number] [address] [place] [address], [place] [address] Jan, [facility] [address] [id number] [address] [place] [address], [place] [address] Jan, [facility] [address] [id number] [address] [place] [address], [place] [address] Jan, [facility] [address] [id number] [address] [place] [address], [place] [address] Jan, [facility] [address] [id number] [address] [place] [address], [place] [address] Jan, [facility] [address] [id number] [address] [place] [address], [place] [address] Jan, [facility] [address] [id number] [address] [place] [address], [place] [address] Dec, [facility] [address] [id number] [address] [place] [address], [place] [address] Dec, [facility] [address] [id number] [address] [place] [address], [place] [address] Dec, [facility] [address] [id number] [address] [place] [address], [place] [address] Dec, [facility] [address] [id number] [address] [place] [address], [place] [address] Nov, [facility] [address] [id number] [address] [place] [address], [place] [address] Nov, [facility] [address] [id number] [address] [place] [address], [place] [address] Nov, [facility] [address] [id number] [address] [place] [address], [place] [address] Nov, [facility] [address] [id number] [address] [place] [address], [place] [address] Oct, [facility] [address] [id number] [address] [place] [address], [place] [address] Oct, [facility] [address] [id number] [address] [place] [address], [place] [address] Oct, [facility] [address] [id number] [address] [place] [address], [place] [address] Oct, [facility] [address] [id number] [address] [place] [address], [place] [address] Oct, [facility] [address] [id number] [address] [place] [address], [place] [address] Oct, [facility] [address] [id number] [address] [place] [address], [place] [address] Oct, [facility] [address] [id number] [address] [place] [address], [place] [address] Oct, [facility] [address] [id number] [address] [place] [address], [place] [address] Sep, [facility] [address] [id number] [address] [place] [address], [place] [address] Sep, [facility] [address] [id number] [address] [place] [address], [place] [address] Jul, [facility] [address] [id number] [address] [place] [address], [place] [address] Jul, [facility] [address] [id number] [address] [place] [address], [place] [address] Jul, [facility] [address] [id number] [address] [place] [address], [place] [address] Jul, [facility] [address] [id number] [address] [place] [address], [place] [address] Jun, [facility] [address] [id number] [address] [place] [address] [place] [address] Jun, [facility] [address] [id number] [address] [place] [address], [place] [address] May, [facility] [address] [id number] [address] [place] [address], [place] [address] Apr, [facility] [address] [id number] [address] [place] [address], [place] [address] Apr, [facility] [address] [id number] [address] [place] [address], [place] [address] Apr, [facility] [address] [id number] [address] [place] [address], [place] [address] March, [facility] [address] [id number] [address] [place] [address], [place] [address] March, [facility] [address] [id number] [address] [place] [address], [place] [address] Feb, [facility] [address] [id number] [address] [place] [address], [place] [address] Jan, [facility] [address] [id number] [address] [place] [address], [place] [address] Jan, [facility] [address] [id number] [address] [place] [address], [place] [address] Dec, [facility] [address] [id number] [address] [place] [address], [place] [address] Dec, [facility] [address] [id number] [address] [place] [address], [place] [address] Nov, [facility] [address] [id number] [address] [place] [address], [place] [address] Nov, [facility] [address] [id number] [address] [place] [address], [place] [address] Nov, [facility] [address] [id number] [address] [place] [address], [place] [address] Oct, [facility] [address] [id number] [address] [place] [address], [place] [address] 18 Oct, 2012 [facility] [address] [id number] [address] [place] [address], [place] [address] Oct, [facility] [address] [id number] [address] [place] [address], [place] [address] Oct, [facility] [address] [id number] [address] [place] [address], [place] [address] Sep, [facility] [address] [id number] [address] [place] [address], [place] [address] Sep, [facility] [address] [id number] [address] [place] [address], [place] [address] Sep, [facility] [address] [id number] [address] [place] [address], [place] [address] Sep, [facility] [address] [id number] [address] [place] [address], [place] [address] Sep, [facility] [address] [id number] [address] [place] [address], [place] [address] 15 Sep, 2012 [facility] [address] [id number] [address] [place] [address], [place] [address] 02 Aug, 2012 [facility] [address] [id number] [address] [place] [address], [place] [address] 26 Jul, 2012 [facility] [address] [id number] [address] [place] [address], [place] [address] 19 Jul, 2012 [facility] [address] [id number] [address] [place] [address], [place] [address] 18 Jul, 2012 [facility] [facility] [address] [id number] [address] [place] [address], [place] [address] 14 Jul, 2012 [facility] [address] [id number] [address] [place] [address], [place] [address] 28 Jun, 2012 [facility] [address] [id number] [address] [place] [address], [place] [address] Jun, [facility] [address] [id number] [address] [place] [address], [place] [address] Jun, [facility] [address] [id number] [address] [place] [address], [place] [address] Jun, [facility] [address] [id number] [address] [place] [address], [place] [address] May, [facility] [address] [id number] [address] [place] [address], [place] [address] Apr, [facility] [address] [id number] [address] [place] [address], [place] [address] March, [facility] [address] [id number] [address] [place] [address], [place] [address] March, [facility] [address] [id number] [address] [place] [address], [place] [address] March, [facility] [address] [id number] [address] [place] [address], [place] [address] Feb, [facility] [address] [id number] [address] [place] [address], [place] [address] Feb, [facility] [address] [id number] [address] [place] [address], [place] [address] Jan, [facility] [address] [id number] [address] [place] [address], [place] [address] Jan, [facility] [address] [id number] [address] [place] [address], [place] [address] Jan, [facility] [address] [id number] [address] [place] [address], [place] [address] Dec, [facility] [place] [address] [id number] [address] [place] [address], [place] [address] Dec, [facility] [address] [id number] [address] [place] [address], [place] [address] Nov, [facility] [place] [address] [id number] [address] [place] [address], [place] [address] 19 Nov, 2011 [facility] [address] [id number] [address] [place] [address], [place] [address] 13 Nov, 2011 [facility] [address] [id number] [address] [place] [address], [place] [address] Nov, [facility] [address] [id number] [address] [place] [address], [place] [address] Nov, [facility] [address] [id number] [address] [place] [address], [place] [address] Oct, [facility] [address] [id number] [address] [place] [address], [place] [address] Oct, [facility] [address] [id number] [address] [place] [address], [place] [address] Oct, [facility] [address] [id number] [address] [place] [address], [place] [address] Oct, [facility] [address] [id number] [address] [place] [address], [place] [address] Sep, [facility] [address] [id number] [address] [place] [address], [place] [address] Sep, [facility] [address] [id number] [address] [place] [address], [place] [address] Sep, [facility] [address] [id number] [address] [place] [address], [place] [address] Aug, [facility] [address] [id number] [address] [place] [address], [place] [address] Oct, [facility] [address] [id number] [address] [place] [address], [place] [address] Oct, [facility] [address] [id number] [address] [place] [address], [place] [address] Oct, [facility] [address] [id number] [address] [place] [address], [place] [address] Oct, IMMUNIZATIONS No Known Immunizations SOCIAL HISTORY Never Assessed REASON FOR VISIT PLAN OF CARE Activity Details Follow Up prn Reason:fillings VITAL SIGNS MEDICATIONS Medication Instructions Dosage Frequency Start Date End Date Duration S tatus Depo-Provera Not-Taking Xanax 0.25 MG Orally once daily 1 tablet 24h Sep, 30 days Active Abilify 20 MG TAKE ONE TABLET BY MOUTH DAILY Active Zyprexa Zydis 5 MG Orally as needed Once a day 1 tablet on the tongue and allow to dissolve 24h Active DDAVP 0.2 mg TAKE ONE TABLET BY MOUTH DAILY Active Trazodone HCl 100 mg Orally Once a day 1 tablet 24h Active [place] MG Orally Once a day 1 capsule 24h 30 day(s) Not-Taking Zoloft 100 MG TAKE ONE TABLET BY MOUTH DAILY 30 Active BusPIRone HCl 5 MG TAKE ONE TABLET BY MOUTH EVERY MORNING Active Clonidine HCl 0.1 MG TAKE ONE TABLET BY MOUTH TWICE A DAY Active Toviaz 4 MG Orally Once a day 1 tablet 24h N ot-Taking Intuniv 2 MG TAKE ONE TABLET BY MOUTH DAILY Active RESULTS No Results PROCEDURES Procedure Date Ordered Result Body Site TOPICAL FLUORIDE VARNISH February 02, 2019 PROPHYLAXIS - ADULT February 02, 2019 BITEWINGS - FOUR FILMS February 02, 2019 PERIODIC ORAL EXAMINATION February 02, 2019 INSTRUCTIONS MEDICATIONS ADMINISTERED No Known Medications MEDICAL (GENERAL) HISTORY Type Description Date Medical History Guardian requests that we do not explain any treatment to patient! Medical History Posttraumatic stress disorder Medical History Bipolar disorder, unspecified Medical History Attention deficit disorder o f childhood without mention of hyperactivity Surgical History No Surgical history information
--- OUTSIDE RECORDS SUMMARY | 2020-04-25 14:47 | XMS REPORT ---
Author Author Ronna Blackmon Doctor Organization [facility] Address Unknown Phone Unavailable Care Team Providers Care Donkey Ride Operator Name Role Phone Migration, Doctor Unavailable Unavailable PROBLEMS Type Condition ICD9-CM Code [id number] Code Onset Dates Condition S tatus SNOMED Code Problem Posttraumatic stress disorder F43.10 Active 72248233 Problem Anxiety F41.9 Active 78439922 Problem Bipolar disorder, unspecified F31.9 Active [id number] Problem Attention deficit hyperactivity disorder (ADHD), combi dylon type F90.2 Active [id number] ALLERGIES No Information ENCOUNTERS Encounter Location Date Diagnosis [place] [id number] [place] [address] Feb, [facility] [address] [address] Jan, [facility] [id number] [address] [place] [address] Jan, [facility] [id number] [address] [place] [address] Jan, Bipolar disorder, unspecifie d F31.9 [facility] [id number] [address] [place] [address] Dec, [facility] [address] [id number] [address] [place] [address] Dec, Bipolar disorder, unspecifie d F31.9 ; Posttraumatic stress disorder F43.10 ; Attention deficit hyperactivity disorder (ADHD), combined type F90.2 and Anxiety F41.9 [facility] [id number] [place] [address] 18 Dec, 2019 Bipolar disorder, unspecifie d F31.9 [facility] [address] [address] 17 Dec, 2019 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 requiring routine preventive dental care K08.9 [facility] [address] [facility] [id number] [address] [place] [address] 05 Dec, 2019 Bipolar disorder, unspecifie d F31.9 [facility] [address] [facility] [id number] [address] [place] [address] 13 Nov, 2019 Post-nasal drip R09.82 [facility] [address] [facility] [id number] [address] [place] [address] 07 Nov, 2019 Bipolar disorder, unspecifie d F31.9 [facility] [address] [facility] [id number] [address] [place] [address] Oct, [facility] [address] [facility] [id number] [address] [place] [address] Oct, Bipolar disorder, unspecifie d F31.9 [facility] [address] [facility] [id number] [address] [place] [address] Sep, Bipolar disorder, unspecifie d F31.9 ; Attention deficit hyperactivity disorder (ADHD), combined type F90.2 and Posttraumatic stress disorder F43.10 [facility] [address] [facility] [id number] [address] [place] [address] 08 Sep, 2019 Bipolar disorder, unspecifie d F31.9 [facility] [id number] [place] [address] Sep, Dental examination Z01.20 an d Oral health maintenance status requiring routine preventive dental care K08.9 [facility] [address] [facility] [id number] [address] [place] [address] Aug, Bipolar disorder, unspecifie d F31.9 [facility] [address] [facility] [id number] [address] [place] [address] Jul, Bipolar disorder, unspecifie d F31.9 [facility] [address] [facility] [id number] [address] [place] [address] Jun, Bipolar disorder, unspecifie d F31.9 ; Posttraumatic stress disorder F43.10 ; Attention deficit hyperactivity disorder (ADHD), combined type F90.2 and Other superintendent container terminal (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 Z79.899 [facility] [address] [id number] [place] [address] May, Caries K02.9 [facility] [address] [id number] [place] [address] May, Caries K02.9 [facility] [id number] [place] [address] May, 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 requiring routine preventive dental care K08.9 [facility] [address] [facility] [id number] [address] [place] [address] Apr, Bipolar disorder, unspecifie d F31.9 [facility] [address] [facility] [id number] [address] [place] [address] Apr, [facility] [address] [facility] [id number] [address] [place] [address] Apr, Bipolar disorder, unspecifie d F31.9 [facility] [address] [facility] [id number] [address] [place] [address] Apr, Bipolar disorder, unspecifie d F31.9 [facility] [address] [facility] [id number] [address] [place] [address] Apr, [facility] [address] [facility] [id number] [address] [place] [address] March, Bipolar disorder, unspecifie d F31.9 ; Attention deficit hyperactivity disorder (ADHD), combined type F90.2 ; Posttraumatic stress disorder F43.10 and Other alf (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 Z79.899 [facility] [address] [id number] [place] [address] March, Dental examination Z01.20 and Caries K02 .9 [facility] [address] [id number] [address] [place] [address] 15 Feb, 2019 Bipolar disorder, unspecifie d F31.9 [facility] [address] [id number] [address] [place] [address] Jan, Oral health maintenance stat requiring routine preventive dental care K08.9 ; Dental examination Z01.20 and Caries K02.9 [facility] [address] [id number] [address] [place] [address] 14 Jan, 2019 Bipolar disorder, unspecifie d F31.9 [facility] [address] [id number] [address] [place] [address] Dec, Bipolar disorder, unspecifie d F31.9 ; Attention deficit hyperactivity disorder (ADHD), combined type F90.2 and Posttraumatic stress disorder F43.10 [facility] [address] [facility] [id number] [address] [place] [address] Oct, Sore throat J02.9 [facility] [address] [facility] [id number] [address] [place] [address] Oct, [facility] [address] [facility] [id number] [address] [place] [address] Oct, Bipolar disorder, unspecifie d F31.9 [facility] [address] [id number] [address] [place] [id number] Sep, Oral health maintenance stat requiring routine preventive dental care K08.9 [facility] [address] [facility] [id number] [address] [place] [address] Sep, Bipolar disorder, unspecifie d F31.9 ; Attention deficit hyperactivity disorder (ADHD), combined type F90.2 and Posttraumatic stress disorder F43.10 [facility] [address] [facility] [id number] [address] [place] [address] 24 Aug, 2018 Lymphadenopathy of left cerv ical region R59.0 [facility] [address] [facility] [id number] [address] [place] [address] Aug, Encounter for immunization Z 23 [facility] [address] [facility] [id number] [address] [place] [address] Aug, Other superintendent container terminal (current) dr nubia therapy Z79.899 [facility] [address] [id number] [address] [place] [address] Jul, Bipolar disorder, unspecifie d F31.9 [facility] [address] [id number] [address] [place] [address] Jun, Bipolar disorder, unspecifie d F31.9 [facility] [address] [id number] [address] [place] [address] Jun, [facility] [address] [facility] [id number] [address] [place] [address] Jun, Bipolar disorder, unspecifie d F31.9 ; Attention deficit hyperactivity disorder (ADHD), combined type F90.2 ; Posttraumatic stress disorder F43.10 and Other alf (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 Z79.899 [facility] [address] [id number] [address] [place] [id number] Jun, Dental examination Z01.20 [facility] [address] [facility] [id number] [address] [place] [address] May, [facility] [address] [facility] [id number] [address] [place] [address] Apr, Bipolar disorder, unspecifie d F31.9 [facility] [address] [facility] [id number] [address] [place] [address] March, Bipolar disorder, unspecifie d F31.9 ; Attention deficit hyperactivity disorder (ADHD), combined type F90.2 and Posttraumatic stress disorder F43.10 [facility] [address] [facility] [id number] [address] [place] [address] Feb, [facility] [address] [facility] [id number] [address] [place] [address] Feb, Insect bite (nonvenomous), l eft knee, initial encounter S80.262A and Bitten or stung by nonvenomous insect and other nonvenomous arthropods, initial encounter W57.XXXA [facility] [address] [id number] Feb, Bipolar disorder, unspecifie d F31.9 [facility] [address] [id number] Feb, Dental examination Z01.20 [facility] [address] [address] Feb, Bipolar disorder, unspecifie d F31.9 ; Attention deficit hyperactivity disorder (ADHD), combined type F90.2 and Posttraumatic stress disorder F43.10 [facility] [address] [id number] Feb, Dental examination Z01.20 [facility] [address] [address] Jan, Bipolar disorder, unspecifie d F31.9 [facility] [address] [address] Jan, Attention deficit hyperactiv ity disorder (ADHD), combined type F90.2 [facility] [address] [address] Dec, Posttraumatic stress disorde r F43.10 [facility] [address] [address] Dec, Posttraumatic stress disorde r F43.10 [facility] [address] [id number] Nov, Dental examination Z01.20 [facility] [id number] [place] [address] [id number] Nov, Encounter for dental exam an d cleaning w/o abnormal findings Z01.20 [facility] [id number] [place] [id number] Nov, Dental examination Z01.20 [facility] [address] [facility] [id number] [address] [place] [address] 08 Sep, 2017 Bipolar disorder, unspecifie d F31.9 ; Posttraumatic stress disorder F43.10 and Attention deficit hyperactivity disorder (ADHD), combined type F90.2 [facility] [address] [facility] [id number] [address] [place] [address] 09 Aug, 2017 Posttraumatic stress disorde r F43.10 [facility] [address] [facility] [id number] [address] [place] [address] 15 Jul, 2017 Other superintendent container terminal (current) dr ug therapy Z79.899 [facility] [address] [facility] [id number] [address] [place] [address] 11 Jul, 2017 Bipolar disorder, unspecifie d F31.9 ; Attention deficit hyperactivity disorder (ADHD), combined type F90.2 and Posttraumatic stress disorder F43.10 [facility] [address] [facility] [id number] [address] [place] [address] Jun, Bipolar disorder, unspecifie d F31.9 ; Posttraumatic stress disorder F43.10 ; Attention deficit hyperactivity disorder (ADHD), combined type F90.2 and Other superintendent container terminal (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 Z79.899 [facility] [address] [facility] [id number] [address] [place] [address] 10 Mar, 2017 Bipolar disorder, unspecifie d F31.9 ; Posttraumatic stress disorder F43.10 and Attention deficit hyperactivity disorder (ADHD), combined type F90.2 [facility] [address] [facility] [id number] [address] [place] [address] Dec, Bipolar disorder, unspecifie d F31.9 ; Posttraumatic stress disorder F43.10 and Attention deficit hyperactivity disorder (ADHD), combined type F90.2 [facility] [address] [facility] [id number] [address] [place] [address] Dec, [facility] [address] [id number] [address] [place] [address] Sep, [facility] [address] [id number] [address] [place] [address] Aug, Bipolar disorder, unspecifie d F31.9 ; Posttraumatic stress disorder F43.10 and Attention deficit hyperactivity disorder (ADHD), combined type F90.2 [facility] [address] [id number] [address] [place] [address] Jun, [facility] [address] [id number] [address] [place] [address] March, [facility] [address] [id number] [address] [place] [address] Feb, Bipolar disorder, unspecifie d F31.9 ; Attention deficit hyperactivity disorder (ADHD), combined type F90.2 and Posttraumatic stress disorder F43.10 [facility] [address] [id number] [address] [place] [address] Feb, [facility] [address] [facility] [id number] [address] [place] [address] Feb, [facility] [address] [facility] [id number] [address] [place] [address] Feb, [facility] [address] [facility] [id number] [address] [place] [address] Jan, [facility] [address] [id number] [address] [place] [address] [id number] Dec, Dental examination Z01.20 [facility] [address] [facility] [id number] [address] [place] [address] Sep, [facility] [address] [facility] [id number] [address] [place] [address] Sep, Attention deficit hyperactiv ity disorder (ADHD), combined type F90.2 ; Posttraumatic stress disorder F43.10 and Bipolar disorder, unspecified F31.9 [facility] [address] [id number] [address] [place] [address] Aug, [facility] [address] [id number] [address] [place] [address] Aug, [facility] [address] [id number] [address] [place] [address] Jul, [facility] [address] [id number] [address] [place] [address] May, Bipolar disorder, unspecifie d 296.80 ; 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.00 and Posttraumatic stress disorder 309.81 [facility] [address] [id number] [address] [place] [address] May, [facility] [address] [id number] [address] [place] [address] May, [facility] [address] [id number] [address] [place] [address] May, [facility] [address] [id number] [address] [place] [address] Apr, [facility] [address] [id number] [address] [place] [address] Apr, [facility] [address] [id number] [address] [place] [address] Apr, [facility] [address] [id number] [address] [place] [address] March, [facility] [address] [id number] [address] [place] [address] March, [facility] [address] [id number] [address] [place] [address] March, [facility] [address] [id number] [address] [place] [address] Feb, [facility] [address] [id number] [address] [place] [address] Feb, [facility] [address] [id number] [facility] [place] [address] Jan, [facility] [address] [id number] [address] [place] [address], [place] [address] Jan, [facility] [address] [id number] [address] [place] [address], [place] [address] Jan, [facility] [address] [id number] [address] [place] [address], [place] [address] Jan, [facility] [address] [id number] [address] [place] [address], [place] [address] Jan, [facility] [address] [id number] [address] [place] [address], [place] [address] Jan, [facility] [address] [id number] [address] [place] [address], [place] [address] Jan, [facility] [address] [id number] [address] [place] [address], [place] [address] Jan, [facility] [address] [id number] [address] [place] [address], [place] [address] Jan, [facility] [address] [id number] [address] [place] [address], [place] [address] Jan, [facility] [address] [id number] [address] [place] [address], [place] [address] Dec, [facility] [address] [id number] [address] [place] [address], [place] [address] Dec, [facility] [address] [id number] [address] [place] [address], [place] [address] Dec, [facility] [address] [id number] [address] [place] [address], [place] [address] Dec, [facility] [address] [id number] [address] [place] [address], [place] [address] Oct, [facility] [address] [id number] [address] [place] [address], [place] [address] Oct, [facility] [address] [id number] [address] [place] [address], [place] [address] Oct, [facility] [address] [id number] [address] [place] [address], [place] [address] Oct, [facility] [address] [id number] [address] [place] [address], [place] [address] Oct, [facility] [address] [id number] [address] [place] [address], [place] [address] Oct, [facility] [address] [id number] [address] [place] [address], [place] [address] Oct, [facility] [address] [id number] [address] [place] [address], [place] [address] Sep, [facility] [address] [id number] [address] [place] [address], [place] [address] Sep, [facility] [address] [id number] [address] [place] [address], [place] [address] Sep, [facility] [address] [id number] [address] [place] [address], [place] [address] Sep, [facility] [address] [id number] [address] [place] [address], [place] [address] Sep, [facility] [address] [id number] [address] [place] [address], [place] [address] Sep, [facility] [address] [id number] [address] [place] [address], [place] [address] Sep, [facility] [address] [id number] [address] [place] [address], [place] [address] Sep, [facility] [address] [id number] [address] [place] [address], [place] [address] Aug, [facility] [address] [id number] [address] [place] [address], [place] [address] Aug, [facility] [address] [id number] [address] [place] [address], [place] [address] Aug, [facility] [address] [id number] [address] [place] [address], [place] [address] Aug, [facility] [address] [id number] [address] [place] [address], [place] [address] Jul, [facility] [address] [id number] [address] [place] [address], [place] [address] Jul, [facility] [address] [id number] [address] [place] [address], [place] [address] Jul, [facility] [address] [id number] [address] [place] [address], [place] [address] Jul, [facility] [address] [id number] [address] [place] [address], [place] [address] Jun, [facility] [address] [id number] [address] [place] [address], [place] [address] Jun, [facility] [address] [id number] [address] [place] [address], [place] [address] Jun, [facility] [address] [id number] [address] [place] [address], [place] [address] Jun, [facility] [address] [id number] [address] [place] [address], [place] [address] May, [facility] [address] [id number] [address] [place] [address], [place] [address] May, [facility] [address] [id number] [address] [place] [address], [place] [address] May, [facility] [address] [id number] [address] [place] [address], [place] [address] May, [facility] [address] [id number] [address] [place] [address], [place] [address] Apr, [facility] [address] [id number] [address] [place] [address], [place] [address] Apr, [facility] [address] [id number] [facility] [place] [address] Apr, [facility] [address] [id number] [address] [place] [address], [place] [address] Apr, [facility] [address] [id number] [address] [place] [address], [place] [address] Apr, [facility] [address] [id number] [address] [place] [address], [place] [address] Apr, [facility] [address] [id number] [address] [place] [address], [place] [address] Apr, [facility] [address] [id number] [address] [place] [address], [place] [address] Apr, [facility] [address] [id number] [address] [place] [address], [place] [address] Apr, [facility] [address] [id number] [address] [place] [address], [place] [address] Apr, [facility] [address] [id number] [address] [place] [address], [place] [address] Apr, [facility] [address] [id number] [address] [place] [address], [place] [address] Apr, [facility] [address] [id number] [place] [address], [place] [address] Apr, [facility] [address] [id number] [address] [place] [address], [place] [address] March, [facility] [address] [id number] [address] [place] [address], [place] [address] March, [facility] [address] [id number] [address] [place] [address], [place] [address] March, [facility] [address] [id number] [address] [place] [address], [place] [address] March, [facility] [address] [id number] [address] [place] [address], [place] [address] Jan, [facility] [address] [id number] [address] [place] [address], [place] [address] Jan, [facility] [address] [id number] [address] [place] [address], [place] [address] Jan, [facility] [address] [id number] [address] [place] [address], [place] [address] Jan, [facility] [address] [id number] [address] [place] [address], [place] [address] Jan, [facility] [address] [id number] [address] [place] [address], [place] [address] Jan, [facility] [address] [id number] [address] [place] [address], [place] [address] Dec, [facility] [address] [id number] [address] [place] [address], [place] [address] Dec, [facility] [address] [id number] [address] [place] [address], [place] [address] Dec, [facility] [address] [id number] [address] [place] [address], [place] [address] Dec, [facility] [address] [id number] [address] [place] [address], [place] [address] Nov, [facility] [address] [id number] [address] [place] [address], [place] [address] Nov, [facility] [address] [id number] [address] [place] [address], [place] [address] Nov, [facility] [address] [id number] [address] [place] [address], [place] [address] Nov, [facility] [address] [id number] [address] [place] [address], [place] [address] Oct, [facility] [address] [id number] [address] [place] [address], [place] [address] Oct, [facility] [address] [id number] [address] [place] [address], [place] [address] Oct, [facility] [address] [id number] [address] [place] [address], [place] [address] Oct, [facility] [address] [id number] [address] [place] [address], [place] [address] Oct, [facility] [address] [id number] [address] [place] [address], [place] [address] Oct, [facility] [address] [id number] [address] [place] [address], [place] [address] Oct, [facility] [address] [id number] [address] [place] [address], [place] [address] Oct, [facility] [address] [id number] [address] [place] [address], [place] [address] Sep, [facility] [address] [id number] [address] [place] [address], [place] [address] Sep, [facility] [address] [id number] [address] [place] [address], [place] [address] Jul, [facility] [address] [id number] [address] [place] [address], [place] [address] Jul, [facility] [address] [id number] [address] [place] [address], [place] [address] Jul, [facility] [address] [id number] [address] [place] [address], [place] [address] Jul, [facility] [address] [id number] [address] [place] [address], [place] [address] Jun, [facility] [address] [id number] [address] [place] [address], [place] [address] Jun, [facility] [address] [id number] [address] [place] [address], [place] [address] May, [facility] [address] [id number] [address] [place] [address], [place] [address] Apr, [facility] [address] [id number] [address] [place] [address], [place] [address] Apr, [facility] [address] [id number] [address] [place] [address], [place] [address] Apr, [facility] [address] [id number] [address] [place] [address], [place] [address] March, [facility] [address] [id number] [address] [place] [address], [place] [address] March, [facility] [address] [id number] [address] [place] [address], [place] [address] Feb, [facility] [address] [id number] [address] [place] [address], [place] [address] Jan, [facility] [address] [id number] [address] [place] [address], [place] [address] Jan, [facility] [address] [id number] [address] [place] [address], [place] [address] Dec, [facility] [address] [id number] [address] [place] [address], [place] [address] Dec, [facility] [address] [id number] [address] [place] [address], [place] [address] Nov, [facility] [address] [id number] [address] [place] [address], [place] [address] Nov, [facility] [address] [id number] [address] [place] [address], [place] [address] Nov, [facility] [address] [id number] [address] [place] [address], [place] [address] Oct, [facility] [address] [id number] [address] [place] [address], [place] [address] Oct, [facility] [address] [id number] [address] [place] [address], [place] [address] Oct, [facility] [address] [id number] [address] [place] [address], [place] [address] 05 Oct, 2012 [facility] [address] [id number] [address] [place] [address], [place] [address] Sep, [facility] [address] [id number] [address] [place] [address], [place] [address] Sep, [facility] [address] [id number] [address] [place] [address], [place] [address] Sep, [facility] [address] [id number] [address] [place] [address], [place] [address] Sep, [facility] [address] [id number] [address] [place] [address], [place] [address] Sep, [facility] [address] [id number] [address] [place] [address], [place] [address] Sep, [facility] [address] [id number] [address] [place] [address], [place] [address] Aug, [facility] [address] [id number] [address] [place] [address], [place] [address] 26 Jul, 2012 [facility] [address] [id number] [address] [place] [address], [place] [address] 19 Jul, 2012 [facility] [address] [id number] [address] [place] [address], [place] [address] 18 Jul, 2012 [facility] [address] [id number] [address] [place] [address], [place] [address] 14 Jul, 2012 [facility] [address] [id number] [address] [place] [address], [place] [address] 28 Jun, 2012 [facility] [address] [id number] [address] [place] [address], [place] [address] Jun, [facility] [address] [id number] [address] [place] [address], [place] [address] Jun, [facility] [address] [id number] [address] [place] [address], [place] [address] Jun, [facility] [address] [id number] [address] [place] [address], [place] [address] May, [facility] [address] [id number] [address] [place] [address], [place] [address] Apr, [facility] [address] [id number] [address] [place] [address], [place] [address] March, [facility] [address] [id number] [address] [place] [address], [place] [address] March, [facility] [address] [id number] [address] [place] [address], [place] [address] March, [facility] [address] [id number] [address] [place] [address], [place] [address] Feb, [facility] [address] [id number] [address] [place] [address], [place] [address] Feb, [facility] [address] [id number] [address] [place] [address], [place] [address] Jan, [facility] [address] [id number] [address] [place] [address], [place] [address] Jan, [facility] [address] [id number] [address] [place] [address], [place] [address] Jan, [facility] [address] [id number] [address] [place] [address], [place] [address] Dec, [facility] [address] [id number] [address] [place] [address], [place] [address] Dec, [facility] [address] [id number] [address] [place] [address], [place] [address] Nov, [facility] [address] [id number] [address] [place] [address], [place] [address] Nov, [facility] [address] [id number] [address] [place] [address], [place] [address] Nov, [facility] [address] [id number] [address] [place] [address] Nov, [facility] [address] [id number] [address] [place] [address] Nov, [facility] [address] [id number] [address] [place] [address] Oct, [facility] [address] [id number] [address] [place] [address] Oct, [facility] [address] [id number] [address] [place] [address] Oct, [facility] [address] [id number] [address] [place] [address] Oct, [facility] [address] [id number] [address] [place] [address] Sep, [facility] [address] [id number] [address] [place] [address] Sep, [facility] [address] [id number] [address] [place] [address] Sep, [facility] [address] [id number] [address] [place] [address] Aug, [facility] [address] [id number] [address] [place] [address] Oct, [facility] [address] [id number] [address] [place] [address] Oct, [facility] [address] [id number] [address] [place] [address] Oct, [facility] [address] [id number] [address] [place] [address] Oct, IMMUNIZATIONS No Known Immunizations SOCIAL HISTORY [...]
--- OUTSIDE RECORDS SUMMARY | 2020-04-25 14:47 | XMS REPORT ---
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 Name Role Phone Migration, Doctor Unavailable Unavailable PROBLEMS Type Condition ICD9-CM Code [id number] Code Onset Dates Condition S tatus SNOMED Code Problem Posttraumatic stress disorder F43.10 Active 31723376 Problem Anxiety F41.9 Active 02159991 Problem Bipolar disorder, unspecified F31.9 Active [id number] Problem Attention deficit hyperactivity disorder (ADHD), combi dylon type F90.2 Active [id number] ALLERGIES No Information ENCOUNTERS Encounter Location Date Diagnosis [place] [id number] [place] [address] Feb, OUTREACH [facility] [address] [address] Jan, [facility] [address] [id number] [address] [place] [address] Jan, [facility] [id number] [address] [place] [address] Jan, Bipolar disorder, unspecifie d F31.9 [facility] [id number] [address] [place] [address] Dec, [facility] [address] [id number] [address] [place] [address] Dec, Bipolar disorder, unspecifie d F31.9 ; Posttraumatic stress disorder F43.10 ; Attention deficit hyperactivity disorder (ADHD), combined type F90.2 and Anxiety F41.9 [facility] [id number] [address] [place] [id number] 18 Dec, 2019 Bipolar disorder, unspecifie d F31.9 [facility] [address] [address] 17 Dec, 2019 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 requiring routine preventive dental care K08.9 [facility] [address] [facility] [id number] [address] [place] [address] 05 Dec, 2019 Bipolar disorder, unspecifie d F31.9 [facility] [address] [facility] [id number] [address] [place] [address] 13 Nov, 2019 Post-nasal drip R09.82 [facility] [address] [facility] [id number] [address] [place] [address] 07 Nov, 2019 Bipolar disorder, unspecifie d F31.9 [facility] [address] [facility] [id number] [address] [place] [address] Oct, [facility] [address] [facility] [id number] [address] [place] [address] Oct, Bipolar disorder, unspecifie d F31.9 [facility] [address] [facility] [id number] [address] [place] [address] Sep, Bipolar disorder, unspecifie d F31.9 ; Attention deficit hyperactivity disorder (ADHD), combined type F90.2 and Posttraumatic stress disorder F43.10 [facility] [address] [facility] [id number] [address] [place] [address] 08 Sep, 2019 Bipolar disorder, unspecifie d F31.9 [facility] [id number] [place] [address] Sep, Dental examination Z01.20 an d Oral health maintenance status requiring routine preventive dental care K08.9 [facility] [address] [facility] [id number] [address] [place] [address] Aug, Bipolar disorder, unspecifie d F31.9 [facility] [address] [facility] [id number] [address] [place] [address] Jul, Bipolar disorder, unspecifie d F31.9 [facility] [address] [facility] [id number] [address] [place] [address] Jun, Bipolar disorder, unspecifie d F31.9 ; Posttraumatic stress disorder F43.10 ; Attention deficit hyperactivity disorder (ADHD), combined type F90.2 and 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 Z79.899 OUTREACH [facility] [address] [id number] [place] [address] May, Caries K02.9 OUTREACH [facility] [address] [id number] [place] [address] May, Caries K02.9 OUTREACH [facility] [id number] [place] [address] May, 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 requiring routine preventive dental care K08.9 [facility] [address] [facility] [id number] [address] [place] [address] Apr, Bipolar disorder, unspecifie d F31.9 [facility] [address] [facility] [id number] [address] [place] [address] Apr, [facility] [address] [facility] [id number] [address] [place] [address] Apr, Bipolar disorder, unspecifie d F31.9 [facility] [address] [facility] [id number] [address] [place] [address] Apr, Bipolar disorder, unspecifie d F31.9 [facility] [address] [facility] [id number] [address] [place] [address] Apr, [facility] [address] [facility] [id number] [address] [place] [address] March, Bipolar disorder, unspecifie d F31.9 ; Attention deficit hyperactivity disorder (ADHD), combined type F90.2 ; Posttraumatic stress disorder F43.10 and Other mcc (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 Z79.899 OUTREACH [facility] [address] [id number] [place] [address] March, Dental examination Z01.20 and Caries K02 .9 [facility] [address] [id number] [address] [place] [address] 15 Feb, 2019 Bipolar disorder, unspecifie d F31.9 [facility] [address] [id number] [address] [place] [address] Jan, Oral health maintenance stat requiring routine preventive dental care K08.9 ; Dental examination Z01.20 and Caries K02.9 [facility] [address] [id number] [address] [place] [address] 14 Jan, 2019 Bipolar disorder, unspecifie d F31.9 [facility] [address] [id number] [address] [place] [address] Dec, Bipolar disorder, unspecifie d F31.9 ; Attention deficit hyperactivity disorder (ADHD), combined type F90.2 and Posttraumatic stress disorder F43.10 [facility] [address] [facility] [id number] [address] [place] [address] Oct, Sore throat J02.9 [facility] [address] [facility] [id number] [address] [place] [address] Oct, [facility] [address] [facility] [id number] [address] [place] [address] Oct, Bipolar disorder, unspecifie d F31.9 [facility] [address] [id number] [address] [place] [id number] Sep, Oral health maintenance stat requiring routine preventive dental care K08.9 [facility] [address] [facility] [id number] [address] [place] [address] Sep, Bipolar disorder, unspecifie d F31.9 ; Attention deficit hyperactivity disorder (ADHD), combined type F90.2 and Posttraumatic stress disorder F43.10 [facility] [address] [facility] [id number] [address] [place] [address] 24 Aug, 2018 Lymphadenopathy of left cerv ical region R59.0 [facility] [address] [facility] [id number] [address] [place] [address] Aug, Encounter for immunization Z 23 [facility] [address] [facility] [id number] [address] [place] [address] Aug, 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 (current) dr nubia therapy Z79.899 [facility] [address] [id number] [address] [place] [address] Jul, Bipolar disorder, unspecifie d F31.9 [facility] [address] [id number] [address] [place] [address] Jun, Bipolar disorder, unspecifie d F31.9 [facility] [address] [id number] [address] [place] [address] Jun, [facility] [address] [facility] [id number] [address] [place] [address] Jun, Bipolar disorder, unspecifie d F31.9 ; Attention deficit hyperactivity disorder (ADHD), combined type F90.2 ; Posttraumatic stress disorder F43.10 and Other mcc (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 Z79.899 [facility] [address] [id number] [address] [place] [id number] Jun, Dental examination Z01.20 [facility] [address] [facility] [id number] [address] [place] [address] May, [facility] [address] [facility] [id number] [address] [place] [address] Apr, Bipolar disorder, unspecifie d F31.9 [facility] [address] [facility] [id number] [address] [place] [address] March, Bipolar disorder, unspecifie d F31.9 ; Attention deficit hyperactivity disorder (ADHD), combined type F90.2 and Posttraumatic stress disorder F43.10 [facility] [address] [facility] [id number] [address] [place] [address] Feb, [facility] [address] [facility] [id number] [address] [place] [address] Feb, Insect bite (nonvenomous), l eft knee, initial encounter S80.262A and Bitten or stung by nonvenomous insect and other nonvenomous arthropods, initial encounter W57.XXXA [facility] [address] [id number] Feb, Bipolar disorder, unspecifie d F31.9 [facility] [address] [id number] Feb, Dental examination Z01.20 [facility] [address] [address] Feb, Bipolar disorder, unspecifie d F31.9 ; Attention deficit hyperactivity disorder (ADHD), combined type F90.2 and Posttraumatic stress disorder F43.10 [facility] [address] [id number] Feb, Dental examination Z01.20 [facility] [address] [address] Jan, Bipolar disorder, unspecifie d F31.9 [facility] [address] [address] Jan, Attention deficit hyperactiv ity disorder (ADHD), combined type F90.2 [facility] [address] [address] Dec, Posttraumatic stress disorde r F43.10 [facility] [address] [address] Dec, Posttraumatic stress disorde r F43.10 [facility] [address] [id number] Nov, Dental examination Z01.20 [facility] [id number] [place] [id number] Nov, Encounter for dental exam an d cleaning w/o abnormal findings Z01.20 [facility] [id number] [place] [id number] Nov, Dental examination Z01.20 [facility] [address] [facility] [id number] [address] [place] [phone] 08 Sep, 2017 Bipolar disorder, unspecifie d F31.9 ; Posttraumatic stress disorder F43.10 and Attention deficit hyperactivity disorder (ADHD), combined type F90.2 [facility] [address] [facility] [id number] [address] [place] [address] 09 Aug, 2017 Posttraumatic stress disorde r F43.10 [facility] [address] [facility] [id number] [address] [place] [address] 15 Jul, 2017 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 (current) dr ug therapy Z79.899 [facility] [address] [facility] [id number] [address] [place] [address] 11 Jul, 2017 Bipolar disorder, unspecifie d F31.9 ; Attention deficit hyperactivity disorder (ADHD), combined type F90.2 and Posttraumatic stress disorder F43.10 [facility] [address] [facility] [id number] [address] [place] [address] Jun, Bipolar disorder, unspecifie d F31.9 ; Posttraumatic stress disorder F43.10 ; Attention deficit hyperactivity disorder (ADHD), combined type F90.2 and 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 Z79.899 [facility] [address] [facility] [id number] [address] [place] [phone] 10 Mar, 2017 Bipolar disorder, unspecifie d F31.9 ; Posttraumatic stress disorder F43.10 and Attention deficit hyperactivity disorder (ADHD), combined type F90.2 [facility] [address] [facility] [id number] [address] [place] [address] Dec, Bipolar disorder, unspecifie d F31.9 ; Posttraumatic stress disorder F43.10 and Attention deficit hyperactivity disorder (ADHD), combined type F90.2 [facility] [address] [facility] [id number] [address] [place] [address] Dec, [facility] [address] [id number] [address] [place] [address] Sep, [facility] [address] [id number] [address] [place] [phone] Aug, Bipolar disorder, unspecifie d F31.9 ; Posttraumatic stress disorder F43.10 and Attention deficit hyperactivity disorder (ADHD), combined type F90.2 [facility] [address] [id number] [address] [place] [address] Jun, [facility] [address] [id number] [address] [place] [phone] March, [facility] [address] [id number] [address] [place] [phone] Feb, Bipolar disorder, unspecifie d F31.9 ; Attention deficit hyperactivity disorder (ADHD), combined type F90.2 and Posttraumatic stress disorder F43.10 [facility] [address] [id number] [address] [place] [address] Feb, [facility] [address] [facility] [id number] [address] [place] [address] Feb, [facility] [address] [facility] [id number] [address] [place] [address] Feb, [facility] [address] [facility] [id number] [address] [place] [address] Jan, [facility] [address] [id number] [address] [place] [address] [id number] Dec, Dental examination Z01.20 [facility] [address] [facility] [id number] [address] [place] [address] Sep, [facility] [address] [facility] [id number] [address] [place] [address] Sep, Attention deficit hyperactiv ity disorder (ADHD), combined type F90.2 ; Posttraumatic stress disorder F43.10 and Bipolar disorder, unspecified F31.9 [facility] [address] [id number] [address] [place] [phone] Aug, [facility] [address] [id number] [address] [place] [address] Aug, [facility] [address] [id number] [address] [place] [phone] Jul, [facility] [address] [id number] [address] [place] [address] May, Bipolar disorder, unspecifie d 296.80 ; 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.00 and Posttraumatic stress disorder 309.81 [facility] [address] [id number] [address] [place] [address] May, [facility] [address] [id number] [address] [place] [address] May, [facility] [address] [id number] [address] [place] [address] May, [facility] [address] [id number] [address] [place] [address] Apr, [facility] [address] [id number] [address] [place] [address] Apr, [facility] [address] [id number] [address] [place] [phone] Apr, [facility] [address] [id number] [address] [place] [phone] March, [facility] [address] [id number] [address] [place] [address] March, [facility] [address] [id number] [address] [place] [address] March, [facility] [address] [id number] [address] [place] [phone] Feb, [facility] [address] [id number] [address] [place] [address] Feb, [facility] [address] [id number] [facility] [place] [address] Jan, [facility] [address] [id number] [address] [place] [address], [place] [address] Jan, [facility] [address] [id number] [address] [place] [address], [place] [address] Jan, [facility] [address] [id number] [address] [place] [address], [place] [address] Jan, [facility] [address] [id number] [address] [place] [address], [place] [address] Jan, [facility] [address] [id number] [address] [place] [address], [place] [address] Jan, [facility] [address] [id number] [address] [place] [address], [place] [address] Jan, [facility] [address] [id number] [address] [place] [address], [place] [address] Jan, [facility] [address] [id number] [address] [place] [address], [place] [address] Jan, [facility] [address] [id number] [address] [place] [address], [place] [address] Jan, [facility] [address] [id number] [address] [place] [address], [place] [address] Dec, [facility] [address] [id number] [address] [place] [address], [place] [address] Dec, [facility] [address] [id number] [address] [place] [address], [place] [address] Dec, [facility] [address] [id number] [address] [place] [address], [place] [address] Dec, [facility] [address] [id number] [address] [place] [address], [place] [address] Oct, [facility] [address] [id number] [address] [place] [address], [place] [address] Oct, [facility] [address] [id number] [address] [place] [address], [place] [address] Oct, [facility] [address] [id number] [address] [place] [address], [place] [address] Oct, [facility] [address] [id number] [address] [place] [address], [place] [address] Oct, [facility] [address] [id number] [address] [place] [address], [place] [address] Oct, [facility] [address] [id number] [address] [place] [address], [place] [address] Oct, [facility] [address] [id number] [address] [place] [address], [place] [address] Sep, [facility] [address] [id number] [address] [place] [address], [place] [address] Sep, [facility] [address] [id number] [address] [place] [address], [place] [address] Sep, [facility] [address] [id number] [address] [place] [address], [place] [address] Sep, [facility] [address] [id number] [address] [place] [address], [place] [address] Sep, [facility] [address] [id number] [address] [place] [address], [place] [address] Sep, [facility] [address] [id number] [address] [place] [address], [place] [address] Sep, [facility] [address] [id number] [address] [place] [address], [place] [address] Sep, [facility] [address] [id number] [address] [place] [address], [place] [address] Aug, [facility] [address] [id number] [address] [place] [address], [place] [address] Aug, [facility] [address] [id number] [address] [place] [address], [place] [address] Aug, [facility] [address] [id number] [address] [place] [address], [place] [address] Aug, [facility] [address] [id number] [address] [place] [address], [place] [address] Jul, [facility] [address] [id number] [address] [place] [address], [place] [address] Jul, [facility] [address] [id number] [address] [place] [address], [place] [address] Jul, [facility] [address] [id number] [address] [place] [address], [place] [address] Jul, [facility] [address] [id number] [address] [place] [address], [place] [address] Jun, [facility] [address] [id number] [address] [place] [address], [place] [address] Jun, [facility] [address] [id number] [address] [place] [address], [place] [address] Jun, [facility] [address] [id number] [address] [place] [address], [place] [address] Jun, [facility] [address] [id number] [address] [place] [address], [place] [address] May, [facility] [address] [id number] [address] [place] [address], [place] [address] May, [facility] [address] [id number] [address] [place] [address], [place] [address] May, [facility] [address] [id number] [address] [place] [address], [place] [address] May, [facility] [address] [id number] [address] [place] [address], [place] [address] Apr, [facility] [address] [id number] [address] [place] [address], [place] [address] Apr, [facility] [address] [id number] [facility] [place] [address] Apr, [facility] [address] [id number] [address] [place] [address], [place] [address] Apr, [facility] [address] [id number] [address] [place] [address], [place] [address] Apr, [facility] [address] [id number] [address] [place] [address], [place] [address] Apr, [facility] [address] [id number] [address] [place] [address], [place] [address] Apr, [facility] [address] [id number] [address] [place] [address], [place] [address] Apr, [facility] [address] [id number] [address] [place] [address], [place] [address] Apr, [facility] [address] [id number] [address] [place] [address], [place] [address] Apr, [facility] [address] [id number] [address] [place] [address], [place] [address] Apr, [facility] [address] [id number] [address] [place] [address], [place] [address] Apr, [facility] [address] [id number] [address] [place] [address], [place] [address] Apr, [facility] [address] [id number] [address] [place] [address], [place] [address] March, [facility] [address] [id number] [address] [place] [address], [place] [address] March, [facility] [address] [id number] [address] [place] [address], [place] [address] March, [facility] [address] [id number] [address] [place] [address], [place] [address] March, [facility] [address] [id number] [address] [place] [address], [place] [address] Jan, [facility] [address] [id number] [address] [place] [address], [place] [address] Jan, [facility] [address] [id number] [address] [place] [address], [place] [address] Jan, [facility] [address] [id number] [address] [place] [address], [place] [address] Jan, [facility] [address] [id number] [address] [place] [address], [place] [address] Jan, [facility] [address] [id number] [address] [place] [address], [place] [address] Jan, [facility] [address] [id number] [address] [place] [address], [place] [address] Dec, [facility] [address] [id number] [address] [place] [address], [place] [address] Dec, [facility] [address] [id number] [address] [place] [address], [place] [address] Dec, [facility] [address] [id number] [address] [place] [address], [place] [address] Dec, [facility] [address] [id number] [address] [place] [address], [place] [address] Nov, [facility] [address] [id number] [address] [place] [address], [place] [address] Nov, [facility] [address] [id number] [address] [place] [address], [place] [address] Nov, [facility] [address] [id number] [address] [place] [address], [place] [address] Nov, [facility] [address] [id number] [address] [place] [address], [place] [address] Oct, [facility] [address] [id number] [address] [place] [address], [place] [address] Oct, [facility] [address] [id number] [address] [place] [address], [place] [address] Oct, [facility] [address] [id number] [address] [place] [address], [place] [address] Oct, [facility] [address] [id number] [address] [place] [address], [place] [address] Oct, [facility] [address] [id number] [address] [place] [address], [place] [address] Oct, [facility] [address] [id number] [address] [place] [address], [place] [address] Oct, [facility] [address] [id number] [address] [place] [address], [place] [address] Oct, [facility] [address] [id number] [address] [place] [address], [place] [address] Sep, [facility] [address] [id number] [address] [place] [address], [place] [address] Sep, [facility] [address] [id number] [address] [place] [address], [place] [address] Jul, [facility] [address] [id number] [address] [place] [address], [place] [address] Jul, [facility] [address] [id number] [address] [place] [address], [place] [address] Jul, [facility] [address] [id number] [address] [place] [address], [place] [address] Jul, [facility] [address] [id number] [address] [place] [address], [place] [address] Jun, [facility] [address] [id number] [address] [place] [address], [place] [address] Jun, [facility] [address] [id number] [address] [place] [address], [place] [address] May, [facility] [address] [id number] [address] [place] [address], [place] [address] Apr, [facility] [address] [id number] [address] [place] [address], [place] [address] Apr, [facility] [address] [id number] [address] [place] [address], [place] [address] Apr, [facility] [address] [id number] [address] [place] [address], [place] [address] March, [facility] [address] [id number] [address] [place] [address], [place] [address] March, [facility] [address] [id number] [address] [place] [address], [place] [address] Feb, [facility] [address] [id number] [address] [place] [address], [place] [address] Jan, [facility] [address] [id number] [address] [place] [address], [place] [address] Jan, [facility] [address] [id number] [address] [place] [address], [place] [address] Dec, [facility] [address] [id number] [address] [place] [address], [place] [address] Dec, [facility] [address] [id number] [address] [place] [address], [place] [address] Nov, [facility] [address] [id number] [address] [place] [address], [place] [address] Nov, [facility] [address] [id number] [address] [place] [address], [place] [address] Nov, [facility] [address] [id number] [address] [place] [address], [place] [address] Oct, [facility] [address] [id number] [address] [place] [address], [place] [address] Oct, [facility] [address] [id number] [address] [place] [address], [place] [address] Oct, [facility] [address] [id number] [address] [place] [address], [place] [address] 05 Oct, 2012 [facility] [address] [id number] [address] [place] [address], [place] [address] Sep, [facility] [address] [id number] [address] [place] [address], [place] [address] Sep, [facility] [address] [id number] [address] [place] [address], [place] [address] Sep, [facility] [address] [id number] [address] [place] [address], [place] [address] Sep, [facility] [address] [id number] [address] [place] [address], [place] [address] Sep, [facility] [address] [id number] [address] [place] [address], [place] [address] Sep, [facility] [address] [id number] [address] [place] [address], [place] [address] Aug, [facility] [address] [id number] [address] [place] [address], [place] [address] 26 Jul, 2012 [facility] [address] [id number] [address] [place] [address], [place] [address] 19 Jul, 2012 [facility] [address] [id number] [address] [place] [address], [place] [address] 18 Jul, 2012 [facility] [address] [id number] [address] [place] [address], [place] [address] 14 Jul, 2012 [facility] [address] [id number] [address] [place] [address], [place] [address] 28 Jun, 2012 [facility] [address] [id number] [address] [place] [address], [place] [address] Jun, [facility] [address] [id number] [address] [place] [address], [place] [address] Jun, [facility] [address] [id number] [address] [place] [address], [place] [address] Jun, [facility] [address] [id number] [address] [place] [address], [place] [address] May, [facility] [address] [id number] [address] [place] [address], [place] [address] Apr, [facility] [address] [id number] [address] [place] [address], [place] [address] March, [facility] [address] [id number] [address] [place] [address], [place] [address] March, [facility] [address] [id number] [address] [place] [address], [place] [address] March, [facility] [address] [id number] [address] [place] [address], [place] [address] Feb, [facility] [address] [id number] [address] [place] [address], [place] [address] Feb, [facility] [address] [id number] [address] [place] [address], [place] [address] Jan, [facility] [address] [id number] [address] [place] [address], [place] [address] Jan, [facility] [address] [id number] [address] [place] [address], [place] [address] Jan, [facility] [address] [id number] [address] [place] [address], [place] [address] Dec, [facility] [address] [id number] [address] [place] [address], [place] [address] Dec, [facility] [address] [id number] [address] [place] [address], [place] [address] Nov, [facility] [address] [id number] [address] [place] [address], [place] [address] Nov, [facility] [address] [id number] [address] [place] [address], [place] [address] Nov, [facility] [address] [id number] [address] [place] [address] Nov, [facility] [address] [id number] [address] [place] [address] Nov, [facility] [address] [id number] [address] [place] [address] Oct, [facility] [address] [id number] [address] [place] [address] Oct, [facility] [address] [id number] [address] [place] [address] Oct, [facility] [address] [id number] [address] [place] [address] Oct, [facility] [address] [id number] [address] [place] [address] Sep, [facility] [address] [id number] [address] [place] [address] Sep, [facility] [address] [id number] [address] [place] [address] Sep, [facility] [address] [id number] [address] [place] [address] Aug, [facility] [address] [id number] [address] [place] [address] Oct, [facility] [address] [id number] [address] [place] [address] Oct, [facility] [address] [id number] [address] [place] [address] Oct, [facility] [address] [id number] [address] [place] [address] Oct, IMMUNIZATIONS No Known Immunizations SOCIAL HISTORY [...]
--- OUTSIDE RECORDS SUMMARY | 2020-04-25 14:48 | XMS REPORT ---
Author Author Ronna Blackmon Doctor Organization [facility] Address Unknown Phone Unavailable Care Team Providers Care Patients Transporter Name Role Phone Migration, Doctor Unavailable Unavailable PROBLEMS Type Condition ICD9-CM Code GCP31-DH Code Onset Dates Condition S tatus SNOMED Code Problem Posttraumatic stress disorder F43.10 Active 88762185 Problem Anxiety F41.9 Active 74605512 Problem Bipolar disorder, unspecified F31.9 Active 91255571 Problem Attention deficit hyperactivity disorder (ADHD), combi dylon type F90.2 Active [id number] ALLERGIES No Information ENCOUNTERS Encounter Location Date Diagnosis [facility] [address] [address] Feb, [facility] [address] [address] Jan, [facility] [address] [address] Jan, [facility] [address] [address] Jan, Bipolar disorder, unspecified F31.9 [facility] [address] [address] Dec, [facility] [address] [address] Dec, Bipolar disorder, unspecified F31.9 ; Po sttraumatic stress disorder F43.10 ; Attention deficit hyperactivity disorder (ADHD), combined type F90.2 and Anxiety F41.9 [facility] [address] [address] Dec, Bipolar disorder, unspecified F31.9 [facility] [id number] [place] [address] Dec, 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 requiring routine preventive dental care K08.9 [facility] [address] [id number] [place] [address] 05 Dec, 2019 Bipolar disorder, unspecified F31.9 [facility] [address] [facility] [id number] [address] [address] 13 Nov, 2019 Post-nasal drip R09.82 [facility] [address] [address] Nov, Bipolar disorder, unspecified F31.9 [facility] [address] [address] Oct, [facility] [address] [address] Oct, Bipolar disorder, unspecified F31.9 [facility] [address] [address] Sep, Bipolar disorder, unspecified F31.9 ; At tention deficit hyperactivity disorder (ADHD), combined type F90.2 and Posttraumatic stress disorder F43.10 [facility] [address] [address] Sep, Bipolar disorder, unspecified F31.9 [facility] [address] [address] [id number] [address] Sep, Dental examination Z01.20 an d Oral health maintenance status requiring routine preventive dental care K08.9 [facility] [address] [address] Aug, Bipolar disorder, unspecified F31.9 [facility] [id number] [place] [address] Jul, Bipolar disorder, unspecified F31.9 [facility] [address] [address] Jun, Bipolar disorder, unspecified F31.9 ; Po sttraumatic stress disorder F43.10 ; Attention deficit hyperactivity disorder (ADHD), combined type F90.2 and Other senior care (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 Z79.899 OUT[facility]ACH [facility] [address] [id number] [facility] [place] [address] May, Caries K02.9 [facility]REACH [facility] [address] [id number] [place] [address] May, Caries K02.9 [facility] [address] [facility] [address] [id number] [place] [address] May, 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 requiring routine preventive dental care K08.9 [facility] [address] [address] Apr, Bipolar disorder, unspecified F31.9 [facility] [address] [address] Apr, [facility] [address] [address] Apr, Bipolar disorder, unspecified F31.9 [facility] [address] [address] Apr, Bipolar disorder, unspecified F31.9 [facility] [address] [address] Apr, [facility] [address] [address] March, Bipolar disorder, unspecified F31.9 ; At tention deficit hyperactivity disorder (ADHD), combined type F90.2 ; Posttraumatic stress disorder F43.10 and Other senior care (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 Z79.899 OUTREACH [facility] [address] [id number] [place] [address] March, Dental examination Z01.20 and Caries K02 .9 [facility] [address] [address] Feb, Bipolar disorder, unspecified F31.9 [facility] [address] [address] Jan, Oral health maintenance status requiring routine preventive dental care K08.9 ; Dental examination Z01.20 and Caries K02.9 [facility] [id number] [place] [address] Jan, Bipolar disorder, unspecified F31.9 [facility] [address] [address] Dec, Bipolar disorder, unspecified F31.9 ; At tention deficit hyperactivity disorder (ADHD), combined type F90.2 and Posttraumatic stress disorder F43.10 [facility] [address] [id number] [address] [place] [address] Oct, Sore throat J02.9 [facility] [address] [address] Oct, [facility] [address] [address] Oct, Bipolar disorder, unspecified F31.9 [facility] [id number] [place] [id number] Sep, Oral health maintenance status requiring routine preventive dental care K08.9 [facility] [address] [address] Sep, Bipolar disorder, unspecified F31.9 ; At tention deficit hyperactivity disorder (ADHD), combined type F90.2 and Posttraumatic stress disorder F43.10 [facility] [address] [id number] [address] [place] [address] Aug, Lymphadenopathy of left cerv ical region R59.0 [facility] [address] [address] Aug, Encounter for immunization Z23 [address] [address] Aug, 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 Z 79.899 [facility] [address] [address] Jul, Bipolar disorder, unspecified F31.9 [facility] [address] [address] Jun, Bipolar disorder, unspecified F31.9 [facility] [address] [address] Jun, [facility] [address] [address] Jun, Bipolar disorder, unspecified F31.9 ; At tention deficit hyperactivity disorder (ADHD), combined type F90.2 ; Posttraumatic stress disorder F43.10 and Other senior care (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 Z79.899 [facility] [address] [id number] Jun, Dental examination Z01.20 [facility] [address] [address] May, [facility] [address] [address] Apr, Bipolar disorder, unspecified F31.9 [facility] [address] [address] March, Bipolar disorder, unspecified F31.9 ; At tention deficit hyperactivity disorder (ADHD), combined type F90.2 and Posttraumatic stress disorder F43.10 [facility] [address] [address] Feb, [facility] [address] [facility] [id number] [place] [address] Feb, Insect bite (nonvenomous), l eft knee, initial encounter S80.262A and Bitten or stung by nonvenomous insect and other nonvenomous arthropods, initial encounter W57.XXXA [facility] [address] [address] Feb, Bipolar disorder, unspecified F31.9 [facility] [address] [id number] Feb, Dental examination Z01.20 [facility] [address] [address] Feb, Bipolar disorder, unspecified F31.9 ; At tention deficit hyperactivity disorder (ADHD), combined type F90.2 and Posttraumatic stress disorder F43.10 [facility] [address] [id number] Feb, Dental examination Z01.20 [facility] [address] [address] Jan, Bipolar disorder, unspecified F31.9 [facility] [address] [address] Jan, Attention deficit hyperactivity disorder (ADHD), combined type F90.2 [facility] [address] [address] Dec, Posttraumatic stress disorder F43.10 [facility] [address] [address] Dec, Posttraumatic stress disorder F43.10 [facility] [address] [id number] Nov, Dental examination Z01.20 [facility] [address] [id number] Nov, Encounter for dental exam and cleaning w /o abnormal findings Z01.20 [facility] [address] [id number] Nov, Dental examination Z01.20 [facility] [address] [address] Sep, Bipolar disorder, unspecified F31.9 ; Po sttraumatic stress disorder F43.10 and Attention deficit hyperactivity disorder (ADHD), combined type F90.2 [facility] [address] [address] Aug, Posttraumatic stress disorder F43.10 [facility] [address] [address] Jul, 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 Z 79.899 [facility] [address] [address] 11 Jul, 2017 Bipolar disorder, unspecified F31.9 ; At tention deficit hyperactivity disorder (ADHD), combined type F90.2 and Posttraumatic stress disorder F43.10 [facility] [address] [address] Jun, Bipolar disorder, unspecified F31.9 ; Po sttraumatic stress disorder F43.10 ; Attention deficit hyperactivity disorder (ADHD), combined type F90.2 and 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.899 [facility] [address] [address] March, Bipolar disorder, unspecified F31.9 ; Po sttraumatic stress disorder F43.10 and Attention deficit hyperactivity disorder (ADHD), combined type F90.2 [facility] [address] [address] Dec, Bipolar disorder, unspecified F31.9 ; Po sttraumatic stress disorder F43.10 and Attention deficit hyperactivity disorder (ADHD), combined type F90.2 [facility] [address] [address] Dec, [facility] [address] [address] Sep, [facility] [address] [address] Aug, Bipolar disorder, unspecified F31.9 ; Po sttraumatic stress disorder F43.10 and Attention deficit hyperactivity disorder (ADHD), combined type F90.2 [facility] [address] [address] Jun, [facility] [address] [address] March, [facility] [address] [address] Feb, Bipolar disorder, unspecified F31.9 ; At tention deficit hyperactivity disorder (ADHD), combined type F90.2 and Posttraumatic stress disorder F43.10 [facility] [id number] [place] [address] Feb, [facility] [id number] [place] [address] Feb, [facility] [id number] [place] [address] Feb, [facility] [address] [address] Jan, [facility] [id number] [place] [id number] Dec, Dental examination Z01.20 [facility] [id number] [place] [address] Sep, [facility] [address] [address] Sep, Attention deficit hyperactivity disorder (ADHD), combined type F90.2 ; Posttraumatic stress disorder F43.10 and Bipolar disorder, unspecified F31.9 [facility] [address] [address] Aug, [facility] [address] [address] Aug, [facility] [address] [address] Jul, [facility] [address] [address] May, Bipolar disorder, unspecified 296.80 ; A ttention deficit 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.00 and Posttraumatic stress disorder 309.81 [facility] [id number] [place] [address] May, [facility] [address] [address] May, [facility] [address] [place] [address] May, [facility] [address] [facility] [id number] [place] [address] Apr, [facility] [address] [id number] [place] [address] Apr, [facility] [address] [id number] [place] [address] Apr, [facility] [address] [id number] [place] [address] March, [facility] [address] [id number] [place] [address] March, [facility] [address] [id number] [place] [address] March, [facility] [address] [id number] [place] [address] Feb, [facility] [address] [id number] [place] [address] Feb, [facility] [address] [id number] [place] [address] Jan, [facility] [address] [id number] [place] [address] Jan, [facility] [address] [id number] [place] [address] Jan, [facility] [address] [id number] [place] [address] Jan, [facility] [address] [id number] [place] [address] Jan, [facility] [address] [id number] [place] [address] Jan, [facility] [address] [id number] [place] [address] Jan, [facility] [address] [id number] [place] [address] Jan, [facility] [address] [id number] [place] [address] Jan, 2014 [facility] [address] [id number] [place] [address] Jan, 2014 [facility] [address] [id number] [place] [address] Dec, 2014 [facility] [id number] [place] [address] Dec, 2014 [facility] [address] [id number] [place] [address] Dec, 2014 [facility] [id number] [place] [address] Dec, 2014 [facility] [address] [id number] [place] [address] Oct, [facility] [id number] [place] [address] Oct, [facility] [address] [id number] [place] [address] Oct, [facility] [id number] [place] [address] Oct, [facility] [address] [id number] [place] [address] Oct, [facility] [id number] [place] [address] Oct, [facility] [address] [id number] [place] [address] Oct, [facility] [address] [id number] [place] [address] Sep, [facility] [id number] [place] [address] Sep, [facility] [address] [id number] [place] [address] Sep, [facility] [id number] [place] [address] Sep, [facility] [address] [id number] [place] [address] Sep, [facility] [address] [id number] [place] [address] Sep, [facility] [address] [id number] [place] [address] Sep, [facility] [address] [id number] [place] [address] Sep, [facility] [address] [id number] [place] [address] Aug, [facility] [address] [id number] [place] [address] Aug, [facility] [address] [id number] [place] [address] Aug, [facility] [address] [id number] [place] [address] Aug, [facility] [address] [id number] [place] [address] Jul, [facility] [address] [id number] [place] [address] Jul, [facility] [address] [id number] [place] [address] Jul, [facility] [address] [id number] [place] [address] Jul, [facility] [address] [id number] [place] [address] Jun, [facility] [address] [id number] [place] [address] Jun, [facility] [address] [id number] [place] [address] Jun, [facility] [address] [id number] [place] [address] Jun, [facility] [address] [id number] [facility] [address] May, [facility] [address] [id number] [place] [address] May, [facility] [address] [facility] [id number] [place] [address] May, [facility] [address] [facility] [id number] [place] [address] May, [facility] [address] [facility] [id number] [place] [address] Apr, [facility] [address] [facility] [id number] [place] [address] Apr, [facility] [address] [id number] [place] [address] Apr, [facility] [address] [id number] [place] [address] Apr, [facility] [address] [id number] [place] [address] Apr, [facility] [address] [facility] [id number] [place] [address] Apr, [facility] [address] [id number] [place] [address] Apr, [facility] [address] [id number] [place] [address] Apr, [facility] [address] [id number] [place] [address] Apr, [facility] [address] [facility] [id number] [place] [address] Apr, [facility] [address] [id number] [place] [address] Apr, [facility] [address] [id number] [place] [address] Apr, [facility] [address] [id number] [place] [address] Apr, [facility] [address] [id number] [place] [address] March, [facility] [address] [id number] [place] [address] March, [facility] [address] [id number] [place] [address] March, [facility] [address] [id number] [place] [address] March, [facility] [address] [id number] [place] [address] Jan, [facility] [address] [id number] [place] [address] Jan, [facility] [address] [id number] [place] [address] Jan, [facility] [address] [id number] [place] [address] Jan, [facility] [address] [id number] [place] [address] Jan, [facility] [address] [id number] [place] [address] Jan, [facility] [address] [id number] [place] [address] Dec, [facility] [address] [id number] [place] [address] Dec, [facility] [address] [id number] [place] [address] Dec, [facility] [address] [id number] [place] [address] Dec, [facility] [address] [id number] [place] [address] Nov, [facility] [address] [id number] [place] [address] Nov, [facility] [address] [id number] [place] [address] Nov, [facility] [address] [id number] [place] [address] Nov, [facility] [address] [id number] [place] [address] Oct, [facility] [address] [id number] [place] [address] Oct, [facility] [address] [id number] [place] [address] Oct, [facility] [address] [id number] [place] [address] Oct, [facility] [address] [id number] [place] [address] Oct, [facility] [address] [id number] [place] [address] Oct, [facility] [address] [id number] [place] [address] Oct, [facility] [address] [id number] [place] [address] Oct, [facility] [address] [id number] [place] [address] Sep, [facility] [address] [id number] [place] [address] Sep, [facility] [address] [id number] [place] [address] Jul, [facility] [address] [id number] [place] [address] Jul, [facility] [address] [id number] [place] [address] Jul, [facility] [address] [id number] [place] [address] Jul, [facility] [address] [id number] [place] [address] Jun, [facility] [address] [id number] [place] [address] Jun, [facility] [address] [id number] [place] [address] May, [facility] [address] [id number] [place] [address] Apr, [facility] [address] [id number] [place] [address] Apr, [facility] [address] [id number] [place] [address] Apr, [facility] [address] [id number] [place] [address] March, [facility] [address] [id number] [place] [address] March, [facility] [address] [id number] [place] [address] Feb, [facility] [address] [id number] [place] [address] Jan, [facility] [address] [id number] [place] [address] Jan, [facility] [address] [id number] [place] [address] Dec, [facility] [address] [id number] [place] [address] Dec, [facility] [address] [id number] [place] [address] Nov, [facility] [address] [id number] [place] [address] Nov, [facility] [id number] [place] [address] Nov, [facility] [address] [id number] [place] [address] Oct, [facility] [address] [id number] [place] [address] 18 Oct, 2012 [facility] [address] [id number] [place] [address] Oct, [facility] [address] [id number] [place] [address] Oct, [facility] [address] [id number] [place] [address] Sep, [facility] [address] [id number] [place] [address] Sep, [facility] [address] [id number] [place] [address] Sep, [facility] [address] [id number] [place] [address] Sep, [facility] [address] [id number] [place] [address] Sep, [facility] [address] [id number] [place] [address] 15 Sep, 2012 [facility] [address] [id number] [place] [address] Aug, [facility] [address] [id number] [place] [address] 26 Jul, 2012 [facility] [address] [id number] [place] [address] 19 Jul, 2012 [facility] [address] [id number] [place] [address] 18 Jul, 2012 [facility] [address] [id number] [place] [address] 14 Jul, 2012 [facility] [address] [id number] [place] [address] 28 Jun, 2012 [facility] [address] [id number] [place] [address] Jun, [facility] [address] [id number] [place] [address] Jun, [facility] [address] [id number] [place] [address] Jun, [facility] [address] [id number] [place] [address] May, [facility] [address] [id number] [place] [address] Apr, [facility] [address] [id number] [place] [address] March, [facility] [address] [id number] [place] [address] March, [facility] [address] [id number] [place] [address] March, [facility] [address] [id number] [place] [address] Feb, [facility] [address] [id number] [place] [address] Feb, [facility] [address] [id number] [place] [address] Jan, [facility] [address] [id number] [place] [address] Jan, [facility] [address] [id number] [place] [address] Jan, [facility] [address] [id number] [place] [address] Dec, [facility] [address] [id number] [place] [address] Dec, [facility] [address] [id number] [place] [address] Nov, [facility] [id number] [place] [address] Nov, [facility] [address] [id number] [place] [address] Nov, [facility] [address] [id number] [place] [address] Nov, [facility] [address] [id number] [place] [address] Nov, [facility] [address] [id number] [place] [address] Oct, [facility] [address] [id number] [place] [address] Oct, [facility] [address] [id number] [place] [address] Oct, [facility] [id number] [place] [address] Oct, [facility] [id number] [place] [address] Sep, [facility] [id number] [place] [address] Sep, [facility] [id number] [place] [address] Sep, [facility] [id number] [place] [address] Aug, [facility] [address] [id number] [place] [address] Oct, [facility] [id number] [place] [address] Oct, [facility] [address] [id number] [place] [address] Oct, [facility] [address] [id number] [place] [address] Oct, IMMUNIZATIONS No Known Immunizations SOCIAL HISTORY [...]
--- OUTSIDE RECORDS SUMMARY | 2020-04-25 14:48 | XMS REPORT ---
Author Author Ronna Blackmon Doctor Organization [facility] Address Unknown Phone Unavailable Care Team Providers Care Thread Twister Name Role Phone Migration, Doctor Unavailable Unavailable PROBLEMS Type Condition ICD9-CM Code [id number] Code Onset Dates Condition S tatus SNOMED Code Problem Posttraumatic stress disorder F43.10 Active 45527175 Problem Anxiety F41.9 Active 99731893 Problem Bipolar disorder, unspecified F31.9 Active [id number] Problem Attention deficit hyperactivity disorder (ADHD), combi dylon type F90.2 Active [id number] ALLERGIES No Information ENCOUNTERS Encounter Location Date Diagnosis [facility] [place] [address] [address] Feb, [facility] [address] [address] Jan, [facility] [place] [address] [address] Jan, [facility] [place] [address] [address] Jan, Bipolar disorder, unspecified F31.9 [facility] [place] [address] [address] Dec, [facility] [place] [address] [address] Dec, Bipolar disorder, unspecified F31.9 ; Po sttraumatic stress disorder F43.10 ; Attention deficit hyperactivity disorder (ADHD), combined type F90.2 and Anxiety F41.9 [facility] [place] [address] [address] Dec, Bipolar disorder, unspecified F31.9 [facility] [id number] [place] [address] Dec, 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 requiring routine preventive dental care K08.9 [facility] [place] [id number] [place] [address] 05 Dec, 2019 Bipolar disorder, unspecified F31.9 [facility] [address] [facility] [id number] 100KS [place] [address] 13 Nov, 2019 Post-nasal drip R09.82 [facility] [place] [address] [address] Nov, Bipolar disorder, unspecified F31.9 [facility] [place] [address] [address] Oct, [facility] [place] [address] [address] Oct, Bipolar disorder, unspecified F31.9 [facility] [place] [address] [address] Sep, Bipolar disorder, unspecified F31.9 ; At tention deficit hyperactivity disorder (ADHD), combined type F90.2 and Posttraumatic stress disorder F43.10 [facility] [place] [address] [address] Sep, Bipolar disorder, unspecified F31.9 [facility] [address] [address] [id number] [address] Sep, Dental examination Z01.20 an d Oral health maintenance status requiring routine preventive dental care K08.9 [facility] [place] [address] [address] Aug, Bipolar disorder, unspecified F31.9 [facility] [place] [id number] [place] [address] Jul, Bipolar disorder, unspecified F31.9 [facility] [place] [address] [address] Jun, Bipolar disorder, unspecified F31.9 ; Po sttraumatic stress disorder F43.10 ; Attention deficit hyperactivity disorder (ADHD), combined type F90.2 and Other 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 (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 Z79.899 [facility] [address] [id number] [place] [address] May, Caries K02.9 [facility] [address] [id number] [place] [address] May, Caries K02.9 [facility] [address] [facility] 340 [id number] [place] [address] May, 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 requiring routine preventive dental care K08.9 [facility] [place] [address] [address] Apr, Bipolar disorder, unspecified F31.9 [facility] [place] [address] [address] Apr, [facility] [place] [address] [address] Apr, Bipolar disorder, unspecified F31.9 [facility] [place] [address] [address] Apr, Bipolar disorder, unspecified F31.9 [facility] [place] [address] [address] Apr, [facility] [place] [address] [address] March, Bipolar disorder, unspecified F31.9 ; At tention deficit hyperactivity disorder (ADHD), combined type F90.2 ; Posttraumatic stress disorder F43.10 and Other 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 (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 Z79.899 [facility]ACH [facility] [address] [id number] [place] [address] March, Dental examination Z01.20 and Caries K02 .9 [facility] [place] [address] [address] Feb, Bipolar disorder, unspecified F31.9 [facility] [place] [address] [address] Jan, Oral health maintenance status requiring routine preventive dental care K08.9 ; Dental examination Z01.20 and Caries K02.9 [facility] [place] [id number] [place] [address] Jan, Bipolar disorder, unspecified F31.9 [facility] [place] [address] [address] Dec, Bipolar disorder, unspecified F31.9 ; At tention deficit hyperactivity disorder (ADHD), combined type F90.2 and Posttraumatic stress disorder F43.10 [facility] [address] [id number] [address] [place] [address] Oct, Sore throat J02.9 [facility] [place] [address] [address] Oct, [facility] [place] [address] [address] Oct, Bipolar disorder, unspecified F31.9 [facility] [address] [id number] [place] [id number] Sep, Oral health maintenance status requiring routine preventive dental care K08.9 [facility] [place] [address] [address] Sep, Bipolar disorder, unspecified F31.9 ; At tention deficit hyperactivity disorder (ADHD), combined type F90.2 and Posttraumatic stress disorder F43.10 [facility] [address] [id number] [address] [place] [address] Aug, Lymphadenopathy of left cerv ical region R59.0 [facility] [place] [address] [address] Aug, Encounter for immunization Z23 [address] [address] Aug, Other section leader screen printing (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 Z 79.899 [facility] [place] [address] [address] Jul, Bipolar disorder, unspecified F31.9 [facility] [place] [address] [address] Jun, Bipolar disorder, unspecified F31.9 [facility] [place] [address] [address] Jun, [facility] [place] [address] [address] Jun, Bipolar disorder, unspecified F31.9 ; At tention deficit hyperactivity disorder (ADHD), combined type F90.2 ; Posttraumatic stress disorder F43.10 and Other 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 (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 Z79.899 [facility] [address] [id number] Jun, Dental examination Z01.20 [facility] [place] [address] [address] May, [facility] [place] [address] [address] Apr, Bipolar disorder, unspecified F31.9 [facility] [place] [address] [address] March, Bipolar disorder, unspecified F31.9 ; At tention deficit hyperactivity disorder (ADHD), combined type F90.2 and Posttraumatic stress disorder F43.10 [facility] [place] [address] [address] Feb, [facility] [address] [facility] [id number] [place] [address] Feb, Insect bite (nonvenomous), l eft knee, initial encounter S80.262A and Bitten or stung by nonvenomous insect and other nonvenomous arthropods, initial encounter W57.XXXA [facility] [place] [address] [address] Feb, Bipolar disorder, unspecified F31.9 [facility] [address] [id number] Feb, Dental examination Z01.20 [facility] [place] [address] [address] Feb, Bipolar disorder, unspecified F31.9 ; At tention deficit hyperactivity disorder (ADHD), combined type F90.2 and Posttraumatic stress disorder F43.10 [facility] [address] [id number] Feb, Dental examination Z01.20 [facility] [place] [address] [address] Jan, Bipolar disorder, unspecified F31.9 [facility] [place] [address] [address] Jan, Attention deficit hyperactivity disorder (ADHD), combined type F90.2 [facility] [place] [address] [address] Dec, Posttraumatic stress disorder F43.10 [facility] [place] [address] [address] Dec, Posttraumatic stress disorder F43.10 [facility] [address] [id number] Nov, Dental examination Z01.20 [facility] [address] [id number] Nov, Encounter for dental exam and cleaning w /o abnormal findings Z01.20 [facility] [address] [id number] Nov, Dental examination Z01.20 [facility] [place] [address] [address] Sep, Bipolar disorder, unspecified F31.9 ; Po sttraumatic stress disorder F43.10 and Attention deficit hyperactivity disorder (ADHD), combined type F90.2 [facility] [place] [address] [address] Aug, Posttraumatic stress disorder F43.10 [facility] [place] [address] [address] Jul, Other section leader screen printing (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 Z 79.899 [facility] [place] [address] [address] 11 Jul, 2017 Bipolar disorder, unspecified F31.9 ; At tention deficit hyperactivity disorder (ADHD), combined type F90.2 and Posttraumatic stress disorder F43.10 [facility] [place] [address] [address] Jun, Bipolar disorder, unspecified F31.9 ; Po sttraumatic stress disorder F43.10 ; Attention deficit hyperactivity disorder (ADHD), combined type F90.2 and Other section leader screen printing (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 Z79.899 [facility] [place] [address] [address] March, Bipolar disorder, unspecified F31.9 ; Po sttraumatic stress disorder F43.10 and Attention deficit hyperactivity disorder (ADHD), combined type F90.2 [facility] [place] [address] [address] Dec, Bipolar disorder, unspecified F31.9 ; Po sttraumatic stress disorder F43.10 and Attention deficit hyperactivity disorder (ADHD), combined type F90.2 [facility] [place] [address] [address] Dec, [facility] [place] [address] [address] Sep, [facility] [place] [address] [address] Aug, Bipolar disorder, unspecified F31.9 ; Po sttraumatic stress disorder F43.10 and Attention deficit hyperactivity disorder (ADHD), combined type F90.2 [facility] [place] [address] [address] Jun, [facility] [place] [address] [address] March, [facility] [place] [address] [address] Feb, Bipolar disorder, unspecified F31.9 ; At tention deficit hyperactivity disorder (ADHD), combined type F90.2 and Posttraumatic stress disorder F43.10 [facility] [place] [id number] [place] [address] Feb, [facility] [place] [id number] [place] [address] Feb, [facility] [place] [id number] [place] [address] Feb, [facility] [place] [address] [address] Jan, [facility] [id number] [place] [id number] Dec, Dental examination Z01.20 [facility] [place] [id number] [place] [address] Sep, [facility] [place] [address] [address] Sep, Attention deficit hyperactivity disorder (ADHD), combined type F90.2 ; Posttraumatic stress disorder F43.10 and Bipolar disorder, unspecified F31.9 [facility] [place] [address] [address] Aug, [facility] [place] [address] [address] Aug, [facility] [place] [address] [address] Jul, [facility] [place] [address] [address] May, Bipolar disorder, unspecified 296.80 ; A ttention deficit 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.00 and Posttraumatic stress disorder 309.81 [facility] [place] [id number] [place] [address] May, [facility] [place] [address] [address] May, [facility] [place] [address] [place] [address] May, [facility] [address] [facility] [id number] [place] [address] Apr, [facility] [address] [id number] [place] [address] Apr, [facility] [address] [id number] [place] [address] Apr, [facility] [address] [id number] [place] [address] March, [facility] [address] [id number] [place] [address] March, [facility] [address] [id number] [place] [address] March, [facility] [address] [id number] [place] [address] Feb, [facility] [address] [id number] [place] [address] Feb, [facility] [address] [id number] [place] [address] Jan, [facility] [address] [id number] [place] [address] Jan, [facility] [address] [id number] [place] [address] Jan, [facility] [address] [id number] [place] [address] Jan, [facility] [address] [id number] [place] [address] Jan, [facility] [address] [id number] [place] [address] Jan, [facility] [address] [id number] [place] [address] Jan, [facility] [address] [id number] [place] [address] Jan, [facility] [address] [id number] [place] [address] Jan, 2014 [facility] [address] [id number] [place] [address] Jan, 2014 [facility] [address] [id number] [place] [address] Dec, 2014 [facility] [id number] [place] [address] Dec, 2014 [facility] [address] [id number] [place] [address] Dec, 2014 [facility] [id number] [place] [address] Dec, 2014 [facility] [address] [id number] [place] [address] Oct, [facility] [id number] [place] [address] Oct, [facility] [address] [id number] [place] [address] Oct, [facility] [id number] [place] [address] Oct, [facility] [address] [id number] [place] [address] Oct, [facility] [id number] [place] [address] Oct, [facility] [address] [id number] [place] [address] Oct, [facility] [address] [id number] [place] [address] Sep, [facility] [id number] [place] [address] Sep, [facility] [address] [id number] [place] [address] Sep, [facility] [id number] [place] [address] Sep, [facility] [address] [id number] [place] [address] Sep, [facility] [address] [id number] [place] [address] Sep, [facility] [address] [id number] [place] [address] Sep, [facility] [address] [id number] [place] [address] Sep, [facility] [address] [id number] [place] [address] Aug, [facility] [address] [id number] [place] [address] Aug, [facility] [address] [id number] [place] [address] Aug, [facility] [address] [id number] [place] [address] Aug, [facility] [address] [id number] [place] [address] Jul, [facility] [address] [id number] [place] [address] Jul, [facility] [address] [id number] [place] [address] Jul, [facility] [address] [id number] [place] [address] Jul, [facility] [address] [id number] [place] [address] Jun, [facility] [address] [id number] [place] [address] Jun, [facility] [address] [id number] [place] [address] Jun, [facility] [address] [id number] [place] [address] Jun, [facility] [address] [id number] [place] [address] May, [facility] [address] [id number] [place] [address] May, [facility] [address] [facility] [id number] [place] [address] May, [facility] [address] [facility] [id number] [place] [address] May, [facility] [address] [facility] [id number] [place] [address] Apr, [facility] [address] [facility] [id number] [place] [address] Apr, [facility] [address] [id number] [place] [address] Apr, [facility] [address] [id number] [place] [address] Apr, [facility] [address] [id number] [place] [address] Apr, [facility] [address] [facility] [id number] [place] [address] Apr, [facility] [address] [id number] [place] [address] Apr, [facility] [address] [id number] [place] [address] Apr, [facility] [address] [id number] [place] [address] Apr, [facility] [address] [facility] [id number] [place] [address] Apr, [facility] [address] [id number] [place] [address] Apr, [facility] [address] [id number] [place] [address] Apr, [facility] [address] [id number] [place] [address] Apr, [facility] [address] [id number] [place] [address] March, [facility] [address] [id number] [place] [address] March, [facility] [address] [id number] [place] [address] March, [facility] [address] [id number] [place] [address] March, [facility] [address] [id number] [place] [address] Jan, [facility] [address] [id number] [place] [address] Jan, [facility] [address] [id number] [place] [address] Jan, [facility] [address] [id number] [place] [address] Jan, [facility] [address] [id number] [place] [address] Jan, [facility] [address] [id number] [place] [address] Jan, [facility] [address] [id number] [place] [address] Dec, [facility] [address] [id number] [place] [address] Dec, [facility] [address] [id number] [place] [address] Dec, [facility] [address] [id number] [place] [address] Dec, [facility] [address] [id number] [place] [address] Nov, [facility] [address] [id number] [place] [address] Nov, [facility] [address] [id number] [place] [address] Nov, [facility] [address] [id number] [place] [address] Nov, [facility] [address] [id number] [place] [address] Oct, [facility] [address] [id number] [place] [address] Oct, [facility] [address] [id number] [place] [address] Oct, [facility] [address] [id number] [place] [address] Oct, [facility] [address] [id number] [place] [address] Oct, [facility] [address] [id number] [place] [address] Oct, [facility] [address] [id number] [place] [address] Oct, [facility] [address] [id number] [place] [address] Oct, [facility] [address] [id number] [place] [address] Sep, [facility] [address] [id number] [place] [address] Sep, [facility] [address] [id number] [place] [address] Jul, [facility] [address] [id number] [place] [address] Jul, [facility] [address] [id number] [place] [address] Jul, [facility] [address] [id number] [place] [address] Jul, [facility] [address] [id number] [place] [address] Jun, [facility] [address] [id number] [place] [address] Jun, [facility] [address] [id number] [place] [address] May, [facility] [address] [id number] [place] [address] Apr, [facility] [address] [id number] [place] [address] Apr, [facility] [address] [id number] [place] [address] Apr, [facility] [address] [id number] [place] [address] March, [facility] [address] [id number] [place] [address] March, [facility] [address] [id number] [place] [address] Feb, [facility] [id number] [place] [address] Jan, [facility] [id number] [place] [address] Jan, [facility] [id number] [place] [address] Dec, [facility] [id number] [place] [address] Dec, [facility] [id number] [place] [address] Nov, [facility] [id number] [place] [address] Nov, [facility] [id number] [place] [address] Nov, [facility] [id number] [place] [address] Oct, [facility] [id number] [place] [address] 18 Oct, 2012 [facility] [id number] [place] [address] Oct, [facility] [id number] [place] [address] Oct, [facility] [id number] [place] [address] Sep, [facility] [id number] [place] [address] Sep, [facility] [id number] [place] [address] Sep, [facility] [id number] [place] [address] Sep, [facility] [id number] [place] [address] Sep, [facility] [id number] [place] [address] 15 Sep, 2012 [facility] [id number] [place] [address] Aug, [facility] [id number] [place] [address] 26 Jul, 2012 [facility] [id number] [place] [address] 19 Jul, 2012 [facility] [id number] [place] [address] 18 Jul, 2012 [facility] [id number] [place] [address] 14 Jul, 2012 [facility] [id number] [place] [address] 28 Jun, 2012 [facility] [id number] [place] [address] Jun, [facility] [id number] [place] [address] Jun, [facility] [id number] [place] [address] Jun, [facility] [id number] [place] [address] May, [facility] [id number] [place] [address] Apr, [facility] [id number] [place] [address] March, [facility] [id number] [place] [address] March, [facility] [id number] [place] [address] March, [facility] [id number] [place] [address] Feb, [facility] [id number] [place] [address] Feb, [facility] [id number] [place] [address] Jan, [facility] [id number] [place] [address] Jan, [facility] [id number] [place] [address] Jan, [facility] [id number] [place] [address] Dec, [facility] [id number] [place] [address] Dec, [facility] [id number] [place] [address] Nov, [facility] [id number] [place] [address] Nov, [facility] [id number] [place] [address] Nov, [facility] [id number] [place] [address] Nov, [facility] [place] [id number] [place] [address] Nov, [facility] [place] [id number] [place] [address] Oct, [facility] [place] [id number] [place] [address] Oct, [facility] [place] [id number] [place] [address] Oct, [facility] [place] [id number] [place] [address] Oct, [facility] [place] [id number] [place] [address] Sep, [facility] [place] [id number] [place] [address] Sep, [facility] [place] [id number] [place] [address] Sep, [facility] [place] [id number] [place] [address] Aug, [facility] [place] [id number] [place] [address] Oct, [facility] [place] [id number] [place] [address] Oct, [facility] [place] [id number] [place] [address] Oct, [facility] [place] [id number] [place] [address] Oct, IMMUNIZATIONS No Known Immunizations SOCIAL HISTORY [...]
--- OUTSIDE RECORDS SUMMARY | 2020-04-25 14:48 | XMS REPORT ---
Author Author Ronna Blackmon Doctor Organization [facility] Address Unknown Phone Unavailable Care Team Providers Care Kinesiotherapist Name Role Phone Migration, Doctor Unavailable Unavailable PROBLEMS Type Condition ICD9-CM Code [id number] Code Onset Dates Condition S tatus SNOMED Code Problem Posttraumatic stress disorder F43.10 Active 95873628 Problem Anxiety F41.9 Active 74086606 Problem Bipolar disorder, unspecified F31.9 Active [id number] Problem Attention deficit hyperactivity disorder (ADHD), combi dylon type F90.2 Active [id number] ALLERGIES No Information ENCOUNTERS Encounter Location Date Diagnosis [facility] [address] [address] Feb, [facility] [address] [address] Jan, [facility] [address] [address] Jan, [facility] [address] [address] Jan, Bipolar disorder, unspecified F31.9 [facility] [address] [address] Dec, [facility] [address] [address] Dec, Bipolar disorder, unspecified F31.9 ; Po sttraumatic stress disorder F43.10 ; Attention deficit hyperactivity disorder (ADHD), combined type F90.2 and Anxiety F41.9 [facility] [address] [address] Dec, Bipolar disorder, unspecified F31.9 [facility] [id number] [place] [address] Dec, 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 requiring routine preventive dental care K08.9 [facility] [address] [id number] [place] [address] 05 Dec, 2019 Bipolar disorder, unspecified F31.9 [facility] [address] [facility] [id number] [address] [place] [address] 13 Nov, 2019 Post-nasal drip R09.82 [facility] [address] [address] Nov, Bipolar disorder, unspecified F31.9 [facility] [address] [address] Oct, [facility] [address] [address] Oct, Bipolar disorder, unspecified F31.9 [facility] [address] [address] Sep, Bipolar disorder, unspecified F31.9 ; At tention deficit hyperactivity disorder (ADHD), combined type F90.2 and Posttraumatic stress disorder F43.10 [facility] [address] [address] Sep, Bipolar disorder, unspecified F31.9 [facility] [address] [address] [id number] [address] Sep, Dental examination Z01.20 an d Oral health maintenance status requiring routine preventive dental care K08.9 [facility] [address] [address] Aug, Bipolar disorder, unspecified F31.9 [facility] [id number] [place] [address] Jul, Bipolar disorder, unspecified F31.9 [facility] [address] [address] Jun, Bipolar disorder, unspecified F31.9 ; Po sttraumatic stress disorder F43.10 ; Attention deficit hyperactivity disorder (ADHD), combined type F90.2 and Other skilled nursing (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 Z79.899 [facility] [address] [id number] [place] [address] May, Caries K02.9 [facility] [address] [id number] [place] [address] May, Caries K02.9 [facility] [address] [facility] [address] [id number] [place] [address] May, 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 requiring routine preventive dental care K08.9 [facility] [address] [address] Apr, Bipolar disorder, unspecified F31.9 [facility] [address] [address] Apr, [facility] [address] [address] Apr, Bipolar disorder, unspecified F31.9 [facility] [address] [address] Apr, Bipolar disorder, unspecified F31.9 [facility] [address] [address] Apr, [facility] [address] [address] March, Bipolar disorder, unspecified F31.9 ; At tention deficit hyperactivity disorder (ADHD), combined type F90.2 ; Posttraumatic stress disorder F43.10 and Other skilled nursing (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 Z79.899 [facility] [address] [id number] [place] [address] March, Dental examination Z01.20 and Caries K02 .9 [facility] [address] [address] Feb, Bipolar disorder, unspecified F31.9 [facility] [address] [address] Jan, Oral health maintenance status requiring routine preventive dental care K08.9 ; Dental examination Z01.20 and Caries K02.9 [facility] [id number] [place] [address] Jan, Bipolar disorder, unspecified F31.9 [facility] [address] [address] Dec, Bipolar disorder, unspecified F31.9 ; At tention deficit hyperactivity disorder (ADHD), combined type F90.2 and Posttraumatic stress disorder F43.10 [facility] [address] [id number] [address] [place] [address] Oct, Sore throat J02.9 [facility] [address] [address] Oct, [facility] [address] [address] Oct, Bipolar disorder, unspecified F31.9 [facility] [id number] [place] [id number] Sep, Oral health maintenance status requiring routine preventive dental care K08.9 [facility] [address] [address] Sep, Bipolar disorder, unspecified F31.9 ; At tention deficit hyperactivity disorder (ADHD), combined type F90.2 and Posttraumatic stress disorder F43.10 [facility] [id number] [place] [address] Aug, Lymphadenopathy of left cerv ical region R59.0 [facility] [address] [address] Aug, Encounter for immunization Z23 [address] [address] [address] Aug, 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 Z 79.899 [facility] [address] [address] Jul, Bipolar disorder, unspecified F31.9 [facility] [address] [address] Jun, Bipolar disorder, unspecified F31.9 [facility] [address] [address] Jun, [facility] [address] [address] Jun, Bipolar disorder, unspecified F31.9 ; At tention deficit hyperactivity disorder (ADHD), combined type F90.2 ; Posttraumatic stress disorder F43.10 and Other skilled nursing (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 Z79.899 [facility] [address] [id number] Jun, Dental examination Z01.20 [facility] [address] [address] May, [facility] [address] [address] Apr, Bipolar disorder, unspecified F31.9 [facility] [address] [address] March, Bipolar disorder, unspecified F31.9 ; At tention deficit hyperactivity disorder (ADHD), combined type F90.2 and Posttraumatic stress disorder F43.10 [facility] [address] [address] Feb, [facility] [address] [facility] [id number] [place] [address] Feb, Insect bite (nonvenomous), l eft knee, initial encounter S80.262A and Bitten or stung by nonvenomous insect and other nonvenomous arthropods, initial encounter W57.XXXA [facility] [address] [address] Feb, Bipolar disorder, unspecified F31.9 [facility] [address] [id number] Feb, Dental examination Z01.20 [facility] [address] [address] Feb, Bipolar disorder, unspecified F31.9 ; At tention deficit hyperactivity disorder (ADHD), combined type F90.2 and Posttraumatic stress disorder F43.10 [facility] [address] [id number] Feb, Dental examination Z01.20 [facility] [address] [address] Jan, Bipolar disorder, unspecified F31.9 [facility] [address] [address] Jan, Attention deficit hyperactivity disorder (ADHD), combined type F90.2 [facility] [address] [address] Dec, Posttraumatic stress disorder F43.10 [facility] [address] [address] Dec, Posttraumatic stress disorder F43.10 [facility] [address] [id number] Nov, Dental examination Z01.20 [facility] [address] [id number] Nov, Encounter for dental exam and cleaning w /o abnormal findings Z01.20 [facility] [address] [id number] Nov, Dental examination Z01.20 [facility] [address] [address] Sep, Bipolar disorder, unspecified F31.9 ; Po sttraumatic stress disorder F43.10 and Attention deficit hyperactivity disorder (ADHD), combined type F90.2 [facility] [address] [address] Aug, Posttraumatic stress disorder F43.10 [facility] [address] [address] Jul, 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 Z 79.899 [facility] [address] [address] 11 Jul, 2017 Bipolar disorder, unspecified F31.9 ; At tention deficit hyperactivity disorder (ADHD), combined type F90.2 and Posttraumatic stress disorder F43.10 [facility] [address] [address] Jun, Bipolar disorder, unspecified F31.9 ; Po sttraumatic stress disorder F43.10 ; Attention deficit hyperactivity disorder (ADHD), combined type F90.2 and 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 Z79.899 [facility] [address] [address] March, Bipolar disorder, unspecified F31.9 ; Po sttraumatic stress disorder F43.10 and Attention deficit hyperactivity disorder (ADHD), combined type F90.2 [facility] [address] [address] Dec, Bipolar disorder, unspecified F31.9 ; Po sttraumatic stress disorder F43.10 and Attention deficit hyperactivity disorder (ADHD), combined type F90.2 [facility] [address] [address] Dec, [facility] [address] [address] Sep, [facility] [address] [address] Aug, Bipolar disorder, unspecified F31.9 ; Po sttraumatic stress disorder F43.10 and Attention deficit hyperactivity disorder (ADHD), combined type F90.2 [facility] [address] [address] Jun, [facility] [address] [address] March, [facility] [address] [address] Feb, Bipolar disorder, unspecified F31.9 ; At tention deficit hyperactivity disorder (ADHD), combined type F90.2 and Posttraumatic stress disorder F43.10 [facility] [id number] [place] [address] Feb, [facility] [id number] [place] [address] Feb, [facility] [id number] [place] [address] Feb, [facility] [address] [address] Jan, [facility] [id number] [place] [id number] Dec, Dental examination Z01.20 [facility] [id number] [place] [address] Sep, [facility] [address] [address] Sep, Attention deficit hyperactivity disorder (ADHD), combined type F90.2 ; Posttraumatic stress disorder F43.10 and Bipolar disorder, unspecified F31.9 [facility] [address] [address] Aug, [facility] [address] [address] Aug, [facility] [address] [address] Jul, [facility] [address] [address] May, Bipolar disorder, unspecified 296.80 ; A ttention deficit 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.00 and Posttraumatic stress disorder 309.81 [facility] [id number] [place] [address] May, [facility] [address] [address] May, [facility] [address] [place] [address] May, [facility] [address] [facility] [id number] [place] [address] Apr, [facility] [address] [id number] [place] [address] Apr, [facility] [address] [id number] [place] [address] Apr, [facility] [address] [id number] [place] [address] March, [facility] [address] [id number] [place] [address] March, [facility] [address] [id number] [place] [address] March, [facility] [address] [id number] [place] [address] Feb, [facility] [address] [id number] [place] [address] Feb, [facility] [address] [id number] [place] [address] Jan, [facility] [address] [id number] [place] [address] Jan, [facility] [address] [id number] [place] [address] Jan, [facility] [address] [id number] [place] [address] Jan, [facility] [address] [id number] [place] [address] Jan, [facility] [address] [id number] [place] [address] Jan, [facility] [address] [id number] [place] [address] Jan, [facility] [address] [id number] [place] [address] Jan, [facility] [address] [id number] [place] [address] Jan, 2014 [facility] [address] [id number] [place] [address] Jan, 2014 [facility] [address] [id number] [place] [address] Dec, 2014 [facility] [id number] [place] [address] Dec, 2014 [facility] [address] [id number] [place] [address] Dec, 2014 [facility] [id number] [place] [address] Dec, 2014 [facility] [address] [id number] [place] [address] Oct, [facility] [id number] [place] [address] Oct, [facility] [address] [id number] [place] [address] Oct, [facility] [id number] [place] [address] Oct, [facility] [address] [id number] [place] [address] Oct, [facility] [id number] [place] [address] Oct, [facility] [address] [id number] [place] [address] Oct, [facility] [address] [id number] [place] [address] Sep, [facility] [id number] [place] [address] Sep, [facility] [address] [id number] [place] [address] Sep, [facility] [id number] [place] [address] Sep, [facility] [address] [id number] [place] [address] Sep, [facility] [address] [id number] [place] [address] Sep, [facility] [address] [id number] [place] [address] Sep, [facility] [address] [id number] [place] [address] Sep, [facility] [address] [id number] [place] [address] Aug, [facility] [address] [id number] [place] [address] Aug, [facility] [address] [id number] [place] [address] Aug, [facility] [address] [id number] [place] [address] Aug, [facility] [address] [id number] [place] [address] Jul, [facility] [address] [id number] [place] [address] Jul, [facility] [address] [id number] [place] [address] Jul, [facility] [address] [id number] [place] [address] Jul, [facility] [address] [id number] [place] [address] Jun, [facility] [address] [id number] [place] [address] Jun, [facility] [address] [id number] [place] [address] Jun, [facility] [address] [id number] [place] [address] Jun, [facility] [address] [id number] [facility] [place] [address] May, [facility] [address] [id number] [place] [address] May, [facility] [address] [facility] [id number] [place] [address] May, [facility] [address] [facility] [id number] [place] [address] May, [facility] [address] [facility] [id number] [place] [address] Apr, [facility] [address] [facility] [id number] [place] [address] Apr, [facility] [address] [id number] [place] [address] Apr, [facility] [address] [id number] [place] [address] Apr, [facility] [address] [id number] [place] [address] Apr, [facility] [address] [facility] [id number] [place] [address] Apr, [facility] [address] [id number] [place] [address] Apr, [facility] [address] [id number] [place] [address] Apr, [facility] [address] [id number] [place] [address] Apr, [facility] [address] [facility] [id number] [place] [address] Apr, [facility] [address] [id number] [place] [address] Apr, [facility] [address] [id number] [place] [address] Apr, [facility] [address] [id number] [place] [address] Apr, [facility] [address] [id number] [place] [address] March, [facility] [address] [id number] [place] [address] March, [facility] [address] [id number] [place] [address] March, [facility] [address] [id number] [place] [address] March, [facility] [address] [id number] [place] [address] Jan, [facility] [address] [id number] [place] [address] Jan, [facility] [address] [id number] [place] [address] Jan, [facility] [address] [id number] [place] [address] Jan, [facility] [address] [id number] [place] [address] Jan, [facility] [address] [id number] [place] [address] Jan, [facility] [address] [id number] [place] [address] Dec, [facility] [address] [id number] [place] [address] Dec, [facility] [address] [id number] [place] [address] Dec, [facility] [address] [id number] [place] [address] Dec, [facility] [address] [id number] [place] [address] Nov, [facility] [address] [id number] [place] [address] Nov, [facility] [address] [id number] [place] [address] Nov, [facility] [address] [id number] [place] [address] Nov, [facility] [address] [id number] [place] [address] Oct, [facility] [address] [id number] [place] [address] Oct, [facility] [address] [id number] [place] [address] Oct, [facility] [address] [id number] [place] [address] Oct, [facility] [address] [id number] [place] [address] Oct, [facility] [address] [id number] [place] [address] Oct, [facility] [address] [id number] [place] [address] Oct, [facility] [address] [id number] [place] [address] Oct, [facility] [address] [id number] [place] [address] Sep, [facility] [address] [id number] [place] [address] Sep, [facility] [address] [id number] [place] [address] Jul, [facility] [address] [id number] [place] [address] Jul, [facility] [address] [id number] [place] [address] Jul, [facility] [address] [id number] [place] [address] Jul, [facility] [address] [id number] [place] [address] Jun, [facility] [address] [id number] [place] [address] Jun, [facility] [address] [id number] [place] [address] May, [facility] [address] [id number] [place] [address] Apr, [facility] [address] [id number] [place] [address] Apr, [facility] [address] [id number] [place] [address] Apr, [facility] [address] [id number] [place] [address] March, [facility] [address] [id number] [place] [address] March, [facility] [address] [id number] [place] [address] Feb, [facility] [address] [id number] [place] [address] Jan, [facility] [address] [id number] [place] [address] Jan, [facility] [address] [id number] [place] [address] Dec, [facility] [address] [id number] [place] [address] Dec, [facility] [address] [id number] [place] [address] Nov, [facility] [address] [id number] [place] [address] Nov, [facility] [id number] [place] [address] Nov, [facility] [address] [id number] [place] [address] Oct, [facility] [address] [id number] [place] [address] 18 Oct, 2012 [facility] [address] [id number] [place] [address] Oct, [facility] [address] [id number] [place] [address] Oct, [facility] [address] [id number] [place] [address] Sep, [facility] [address] [id number] [place] [address] Sep, [facility] [address] [id number] [place] [address] Sep, [facility] [address] [id number] [place] [address] Sep, [facility] [address] [id number] [place] [address] Sep, [facility] [address] [id number] [place] [address] 15 Sep, 2012 [facility] [address] [id number] [place] [address] Aug, [facility] [address] [id number] [place] [address] 26 Jul, 2012 [facility] [address] [id number] [place] [address] 19 Jul, 2012 [facility] [address] [id number] [place] [address] 18 Jul, 2012 [facility] [address] [id number] [place] [address] 14 Jul, 2012 [facility] [address] [id number] [place] [address] 28 Jun, 2012 [facility] [facility] [address] [id number] [place] [address] Jun, [facility] [address] [id number] [place] [address] Jun, [facility] [address] [id number] [place] [address] Jun, [facility] [id number] [place] [address] May, [facility] [address] [id number] [place] [address] Apr, [facility] [address] [id number] [place] [address] March, [facility] [address] [id number] [place] [address] March, [facility] [address] [id number] [place] [address] March, [facility] [address] [id number] [place] [address] Feb, [facility] [address] [id number] [place] [address] Feb, [facility] [address] [id number] [place] [address] Jan, [facility] [address] [id number] [place] [address] Jan, [facility] [address] [id number] [place] [address] Jan, [facility] [address] [id number] [place] [address] Dec, [facility] [address] [id number] [place] [address] Dec, [facility] [address] [id number] [place] [address] Nov, [facility] [id number] [place] [address] Nov, [facility] [address] [id number] [place] [address] Nov, [facility] [address] [id number] [place] [address] Nov, [facility] [address] [id number] [place] [address] Nov, [facility] [address] [id number] [place] [address] Oct, [facility] [address] [id number] [place] [address] Oct, [facility] [address] [id number] [place] [address] Oct, [facility] [id number] [place] [address] Oct, [facility] [id number] [place] [address] Sep, [facility] [id number] [place] [address] Sep, [facility] [id number] [place] [address] Sep, [facility] [id number] [place] [address] Aug, [facility] [address] [id number] [place] [address] Oct, [facility] [id number] [place] [address] Oct, [facility] [address] [id number] [place] [address] Oct, [facility] [address] [id number] [place] [address] Oct, IMMUNIZATIONS No Known Immunizations SOCIAL HISTORY [...]
--- OUTSIDE RECORDS SUMMARY | 2020-04-25 14:48 | XMS REPORT ---
Author Author Ronna Blackmon Doctor Organization [facility] Address Unknown Phone Unavailable Care Team Providers Care Style Advisor Name Role Phone Migration, Doctor Unavailable Unavailable PROBLEMS Type Condition ICD9-CM Code [id number] Code Onset Dates Condition S tatus SNOMED Code Problem Posttraumatic stress disorder F43.10 Active 20071346 Problem Anxiety F41.9 Active 33233152 Problem Bipolar disorder, unspecified F31.9 Active 96119625 Problem Attention deficit hyperactivity disorder (ADHD), combi dylon type F90.2 Active [id number] ALLERGIES No Information ENCOUNTERS Encounter Location Date Diagnosis [facility] [address] [address] Feb, [facility] [address] [address] Jan, [facility] [address] [address] Jan, [facility] [address] [address] Jan, Bipolar disorder, unspecified F31.9 [facility] [address] [address] Dec, [facility] [address] [address] Dec, Bipolar disorder, unspecified F31.9 ; Po sttraumatic stress disorder F43.10 ; Attention deficit hyperactivity disorder (ADHD), combined type F90.2 and Anxiety F41.9 [facility] [address] [address] Dec, Bipolar disorder, unspecified F31.9 [facility] [id number] [place] [address] Dec, 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 requiring routine preventive dental care K08.9 [facility] [address] [id number] [place] [address] 05 Dec, 2019 Bipolar disorder, unspecified F31.9 [facility] [address] [facility] [id number] 100KS [place] [address] 13 Nov, 2019 Post-nasal drip R09.82 [facility] [address] [address] Nov, Bipolar disorder, unspecified F31.9 [facility] [address] [address] Oct, [facility] [address] [address] Oct, Bipolar disorder, unspecified F31.9 [facility] [address] [address] Sep, Bipolar disorder, unspecified F31.9 ; At tention deficit hyperactivity disorder (ADHD), combined type F90.2 and Posttraumatic stress disorder F43.10 [facility] [address] [address] Sep, Bipolar disorder, unspecified F31.9 [facility] [address] [address] [id number] [address] Sep, Dental examination Z01.20 an d Oral health maintenance status requiring routine preventive dental care K08.9 [facility] [address] [address] Aug, Bipolar disorder, unspecified F31.9 [facility] [id number] [place] [address] Jul, Bipolar disorder, unspecified F31.9 [facility] [address] [address] Jun, Bipolar disorder, unspecified F31.9 ; Po sttraumatic stress disorder F43.10 ; Attention deficit hyperactivity disorder (ADHD), combined type F90.2 and Other fdc (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 Z79.899 [facility] [address] [id number] [place] [address] May, Caries K02.9 [facility] [address] [id number] [place] [address] May, Caries K02.9 [facility] [address] [facility] [address] [id number] [place] [address] May, 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 requiring routine preventive dental care K08.9 [facility] [address] [address] Apr, Bipolar disorder, unspecified F31.9 [facility] [address] [address] Apr, [facility] [address] [address] Apr, Bipolar disorder, unspecified F31.9 [facility] [address] [address] Apr, Bipolar disorder, unspecified F31.9 [facility] [address] [address] Apr, [facility] [address] [address] March, Bipolar disorder, unspecified F31.9 ; At tention deficit hyperactivity disorder (ADHD), combined type F90.2 ; Posttraumatic stress disorder F43.10 and Other fdc (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 Z79.899 [facility] [address] [id number] [place] [address] March, Dental examination Z01.20 and Caries K02 .9 [facility] [address] [address] Feb, Bipolar disorder, unspecified F31.9 [facility] [address] [address] Jan, Oral health maintenance status requiring routine preventive dental care K08.9 ; Dental examination Z01.20 and Caries K02.9 [facility] [address] [id number] [place] [address] Jan, Bipolar disorder, unspecified F31.9 [facility] [address] [address] Dec, Bipolar disorder, unspecified F31.9 ; At tention deficit hyperactivity disorder (ADHD), combined type F90.2 and Posttraumatic stress disorder F43.10 [facility] [address] [id number] [address] [place] [address] Oct, Sore throat J02.9 [facility] [address] [address] Oct, [facility] [address] [address] Oct, Bipolar disorder, unspecified F31.9 [facility] [address] [id number] [place] [id number] Sep, Oral health maintenance status requiring routine preventive dental care K08.9 [facility] [address] [address] Sep, Bipolar disorder, unspecified F31.9 ; At tention deficit hyperactivity disorder (ADHD), combined type F90.2 and Posttraumatic stress disorder F43.10 [facility] [address] [id number] [address] [place] [address] Aug, Lymphadenopathy of left cerv ical region R59.0 [facility] [address] [address] Aug, Encounter for immunization [address]23 [address] [address] Aug, Other medical terminologist (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 Z 79.899 [facility] [address] [address] Jul, Bipolar disorder, unspecified F31.9 [facility] [address] [address] Jun, Bipolar disorder, unspecified F31.9 [facility] [address] [address] Jun, [facility] [address] [address] Jun, Bipolar disorder, unspecified F31.9 ; At tention deficit hyperactivity disorder (ADHD), combined type F90.2 ; Posttraumatic stress disorder F43.10 and Other fdc (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 Z79.899 [facility] [address] [id number] Jun, Dental examination Z01.20 [facility] [address] [address] May, [facility] [address] [address] Apr, Bipolar disorder, unspecified F31.9 [facility] [address] [address] March, Bipolar disorder, unspecified F31.9 ; At tention deficit hyperactivity disorder (ADHD), combined type F90.2 and Posttraumatic stress disorder F43.10 [facility] [address] [address] Feb, [facility] [address] [facility] [id number] [place] [address] Feb, Insect bite (nonvenomous), l eft knee, initial encounter S80.262A and Bitten or stung by nonvenomous insect and other nonvenomous arthropods, initial encounter W57.XXXA [facility] [address] [address] Feb, Bipolar disorder, unspecified F31.9 [facility] [address] [id number] Feb, Dental examination Z01.20 [facility] [address] [address] Feb, Bipolar disorder, unspecified F31.9 ; At tention deficit hyperactivity disorder (ADHD), combined type F90.2 and Posttraumatic stress disorder F43.10 [facility] [address] [id number] Feb, Dental examination Z01.20 [facility] [address] [address] Jan, Bipolar disorder, unspecified F31.9 [facility] [address] [address] Jan, Attention deficit hyperactivity disorder (ADHD), combined type F90.2 [facility] [address] [address] Dec, Posttraumatic stress disorder F43.10 [facility] [address] [address] Dec, Posttraumatic stress disorder F43.10 [facility] [address] [id number] Nov, Dental examination Z01.20 [facility] [address] [id number] Nov, Encounter for dental exam and cleaning w /o abnormal findings Z01.20 [facility] [address] [id number] Nov, Dental examination Z01.20 [facility] [address] [address] Sep, Bipolar disorder, unspecified F31.9 ; Po sttraumatic stress disorder F43.10 and Attention deficit hyperactivity disorder (ADHD), combined type F90.2 [facility] [address] [address] Aug, Posttraumatic stress disorder F43.10 [facility] [address] [address] Jul, Other medical terminologist (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 Z 79.899 [facility] [address] [address] 11 Jul, 2017 Bipolar disorder, unspecified F31.9 ; At tention deficit hyperactivity disorder (ADHD), combined type F90.2 and Posttraumatic stress disorder F43.10 [facility] [address] [address] Jun, Bipolar disorder, unspecified F31.9 ; Po sttraumatic stress disorder F43.10 ; Attention deficit hyperactivity disorder (ADHD), combined type F90.2 and Other medical terminologist (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 Z79.899 [facility] [address] [address] March, Bipolar disorder, unspecified F31.9 ; Po sttraumatic stress disorder F43.10 and Attention deficit hyperactivity disorder (ADHD), combined type F90.2 [facility] [address] [address] Dec, Bipolar disorder, unspecified F31.9 ; Po sttraumatic stress disorder F43.10 and Attention deficit hyperactivity disorder (ADHD), combined type F90.2 [facility] [address] [address] Dec, [facility] [address] [address] Sep, [facility] [address] [address] Aug, Bipolar disorder, unspecified F31.9 ; Po sttraumatic stress disorder F43.10 and Attention deficit hyperactivity disorder (ADHD), combined type F90.2 [facility] [address] [address] Jun, [facility] [address] [address] March, [facility] [address] [address] Feb, Bipolar disorder, unspecified F31.9 ; At tention deficit hyperactivity disorder (ADHD), combined type F90.2 and Posttraumatic stress disorder F43.10 [facility] [address] [id number] [place] [address] Feb, [facility] [address] [id number] [place] [address] Feb, [facility] [address] [id number] [place] [address] Feb, [facility] [address] [address] Jan, [facility] [id number] [place] [id number] Dec, Dental examination Z01.20 [facility] [address] [id number] [place] [address] Sep, [facility] [address] [address] Sep, Attention deficit hyperactivity disorder (ADHD), combined type F90.2 ; Posttraumatic stress disorder F43.10 and Bipolar disorder, unspecified F31.9 [facility] [address] [address] Aug, [facility] [address] [address] Aug, [facility] [address] [address] Jul, [facility] [address] [address] May, Bipolar disorder, unspecified 296.80 ; A ttention deficit 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.00 and Posttraumatic stress disorder 309.81 [facility] [id number] [place] [address] May, [facility] [address] [address] May, [facility] [address] [place] [address] May, [facility] [place] [facility] [address] [facility] [id number] [place] [address] Apr, [facility] [address] [id number] [place] [address] Apr, [facility] [address] [id number] [place] [address] Apr, [facility] [address] [id number] [place] [address] March, [facility] [address] [id number] [place] [address] March, [facility] [address] [id number] [place] [address] March, [facility] [place] [address] [id number] [place] [address] Feb, [facility] [place] [address] [id number] [place] [address] Feb, [facility] [address] [id number] [place] [address] Jan, [facility] [place] [address] [id number] [place] [address] Jan, [facility] [place] [address] [id number] [place] [address] Jan, [facility] [place] [facility] [address] [id number] [place] [address] Jan, [facility] [place] [address] [id number] [place] [address] Jan, [facility] [place] [facility] [address] [id number] [place] [address] Jan, [facility] [place] [facility] [address] [id number] [place] [address] Jan, [facility] [place] [facility] [address] [id number] [place] [address] Jan, [facility] [place] [facility] [address] [id number] [place] [address] Jan, 2014 [facility] [place] [facility] [address] [id number] [place] [address] Jan, 2014 [facility] [place] [facility] [address] [id number] [place] [address] Dec, 2014 [facility] [place] [facility] [id number] [place] [address] Dec, 2014 [facility] [place] [address] [id number] [place] [address] Dec, 2014 [facility] [place] [id number] [place] [address] Dec, 2014 [facility] [place] [address] [id number] [place] [address] Oct, [facility] [place] [id number] [place] [address] Oct, [facility] [address] [id number] [place] [address] Oct, [facility] [place] [id number] [place] [address] Oct, [facility] [address] [id number] [place] [address] Oct, [facility] [id number] [place] [address] Oct, [facility] [address] [id number] [place] [address] Oct, [facility] [place] [address] [id number] [place] [address] Sep, [facility] [id number] [place] [address] Sep, [facility] [address] [id number] [place] [address] Sep, [facility] [id number] [place] [address] Sep, [facility] [address] [id number] [place] [address] Sep, [facility] [address] [id number] [place] [address] Sep, [facility] [address] [id number] [place] [address] Sep, [facility] [address] [id number] [place] [address] Sep, [facility] [address] [id number] [place] [address] Aug, [facility] [address] [id number] [place] [address] Aug, [facility] [address] [id number] [place] [address] Aug, [facility] [address] [id number] [place] [address] Aug, [facility] [address] [id number] [place] [address] Jul, [facility] [address] [id number] [place] [address] Jul, [facility] [address] [id number] [place] [address] Jul, [facility] [address] [id number] [place] [address] Jul, [facility] [address] [id number] [place] [address] Jun, [facility] [address] [id number] [place] [address] Jun, [facility] [address] [id number] [place] [address] Jun, [facility] [address] [id number] [place] [address] Jun, [facility] [address] [id number] [place] [address] May, [facility] [address] [id number] [place] [address] May, [facility] [address] [facility] [id number] [place] [address] May, [facility] [address] [facility] [id number] [place] [address] May, [facility] [address] [facility] [id number] [place] [address] Apr, [facility] [address] [facility] [id number] [place] [address] Apr, [facility] [place] [address] [id number] [place] [address] Apr, [facility] [address] [id number] [place] [address] Apr, [facility] [address] [id number] [place] [address] Apr, [facility] [address] [facility] [id number] [place] [address] Apr, [facility] [address] [id number] [place] [address] Apr, [facility] [address] [id number] [place] [address] Apr, [facility] [address] [id number] [place] [address] Apr, [facility] [address] [facility] [id number] [place] [address] Apr, [facility] [address] [id number] [place] [address] Apr, [facility] [address] [id number] [place] [address] Apr, [facility] [address] [id number] [place] [address] Apr, [facility] [address] [id number] [place] [address] March, [facility] [address] [id number] [place] [address] March, [facility] [address] [id number] [place] [address] March, [facility] [address] [id number] [place] [address] March, [facility] [address] [id number] [place] [address] Jan, [facility] [address] [id number] [place] [address] Jan, [facility] [address] [id number] [place] [address] Jan, [facility] [address] [id number] [place] [address] Jan, [facility] [address] [id number] [place] [address] Jan, [facility] [address] [id number] [place] [address] Jan, [facility] [address] [id number] [place] [address] Dec, [facility] [address] [id number] [place] [address] Dec, [facility] [address] [id number] [place] [address] Dec, [facility] [address] [id number] [place] [address] Dec, [facility] [address] [id number] [place] [address] Nov, [facility] [address] [id number] [place] [address] Nov, [facility] [address] [id number] [place] [address] Nov, [facility] [address] [id number] [place] [address] Nov, [facility] [address] [id number] [place] [address] Oct, [facility] [address] [id number] [place] [address] Oct, [facility] [address] [id number] [place] [address] Oct, [facility] [address] [id number] [place] [address] Oct, [facility] [address] [facility] [id number] [place] [address] Oct, [facility] [address] [id number] [place] [address] Oct, [facility] [address] [id number] [place] [address] Oct, [facility] [address] [id number] [place] [address] Oct, [facility] [address] [id number] [place] [address] Sep, [facility] [address] [id number] [place] [address] Sep, [facility] [address] [id number] [place] [address] Jul, [facility] [address] [id number] [place] [address] Jul, [facility] [address] [id number] [place] [address] Jul, [facility] [address] [id number] [place] [address] Jul, [facility] [address] [id number] [place] [address] Jun, [facility] [address] [id number] [place] [address] Jun, [facility] [address] [id number] [place] [address] May, [facility] [address] [id number] [place] [address] Apr, [facility] [address] [id number] [place] [address] Apr, [facility] [address] [id number] [place] [address] Apr, [facility] [address] [id number] [place] [address] March, [facility] [address] [id number] [place] [address] March, [facility] [address] [id number] [place] [address] Feb, [facility] [address] [id number] [place] [address] Jan, [facility] [address] [id number] [place] [address] Jan, [facility] [address] [id number] [place] [address] Dec, [facility] [address] [id number] [place] [address] Dec, [facility] [address] [id number] [place] [address] Nov, [facility] [address] [id number] [place] [address] Nov, [facility] [id number] [place] [address] Nov, [facility] [address] [id number] [place] [address] Oct, [facility] [id number] [place] [address] 18 Oct, 2012 [facility] [address] [id number] [place] [address] Oct, [facility] [address] [id number] [place] [address] Oct, [facility] [address] [id number] [place] [address] Sep, [facility] [address] [id number] [place] [address] Sep, [facility] [address] [id number] [place] [address] Sep, [facility] [address] [id number] [place] [address] Sep, [facility] [address] [id number] [place] [address] Sep, [facility] [address] [id number] [place] [address] 15 Sep, 2012 [facility] [address] [id number] [place] [address] Aug, [facility] [address] [id number] [place] [address] 26 Jul, 2012 [facility] [address] [id number] [place] [address] 19 Jul, 2012 [facility] [address] [id number] [place] [address] 18 Jul, 2012 [facility] [address] [id number] [place] [address] 14 Jul, 2012 [facility] [address] [id number] [place] [address] 28 Jun, 2012 [facility] [address] [id number] [place] [address] Jun, [facility] [address] [id number] [place] [address] Jun, [facility] [address] [id number] [place] [address] Jun, [facility] [id number] [place] [address] May, [facility] [address] [id number] [place] [address] Apr, [facility] [address] [id number] [place] [address] March, [facility] [address] [id number] [place] [address] March, [facility] [address] [id number] [place] [address] March, [facility] [address] [id number] [place] [address] Feb, [facility] [address] [id number] [place] [address] Feb, [facility] [address] [id number] [place] [address] Jan, [facility] [address] [id number] [place] [address] Jan, [facility] [address] [id number] [place] [address] Jan, [facility] [address] [id number] [place] [address] Dec, [facility] [address] [id number] [place] [address] Dec, [facility] [address] [id number] [place] [address] Nov, [facility] [id number] [place] [address] Nov, [facility] [address] [id number] [place] [address] Nov, [facility] [address] [id number] [place] [address] Nov, [facility] [address] [id number] [place] [address] Nov, [facility] [address] [id number] [place] [address] Oct, [facility] [address] [id number] [place] [address] Oct, [facility] [address] [id number] [place] [address] Oct, [facility] [id number] [place] [address] Oct, [facility] [id number] [place] [address] Sep, [facility] [id number] [place] [address] Sep, [facility] [id number] [place] [address] Sep, [facility] [id number] [place] [address] Aug, [facility] [address] [id number] [place] [address] Oct, [facility] [id number] [place] [address] Oct, [facility] [address] [id number] [place] [address] Oct, [facility] [address] [id number] [place] [address] Oct, IMMUNIZATIONS No Known Immunizations SOCIAL HISTORY [...]
--- OUTSIDE RECORDS SUMMARY | 2020-04-25 14:49 | XMS REPORT ---
Author Author Ronna Blackmon Doctor Organization [facility] Address Unknown Phone Unavailable Care Team Providers Care Babbitter Name Role Phone Migration, Doctor Unavailable Unavailable PROBLEMS Type Condition ICD9-CM Code MDV11-DM Code Onset Dates Condition S tatus SNOMED Code Problem Posttraumatic stress disorder F43.10 Active 57073113 Problem Anxiety F41.9 Active 02005992 Problem Bipolar disorder, unspecified F31.9 Active 28682128 Problem Attention deficit hyperactivity disorder (ADHD), combi dylon type F90.2 Active [id number] ALLERGIES No Information ENCOUNTERS Encounter Location Date Diagnosis [facility] [address] [address] Feb, [facility] [address] [address] Jan, [facility] [address] [address] Dec, [facility] [address] [address] Dec, Bipolar disorder, unspecified F31.9 ; Po sttraumatic stress disorder F43.10 ; Attention deficit hyperactivity disorder (ADHD), combined type F90.2 and Anxiety F41.9 [facility] [address] [address] Dec, Bipolar disorder, unspecified F31.9 [facility] [id number] [place] [address] 17 Dec, 2019 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 requiring routine preventive dental care K08.9 [facility] [address] [address] 05 Dec, 2019 Bipolar disorder, unspecified F31.9 [facility] [address] [id number] [place] [address] Nov, Post-nasal drip R09.82 [place] [address] [address] Nov, Bipolar disorder, unspecified F31.9 [place] [address] [address] Oct, [place] [address] [address] Oct, Bipolar disorder, unspecified F31.9 [place] [address] [address] Sep, Bipolar disorder, unspecified F31.9 ; At tention deficit hyperactivity disorder (ADHD), combined type F90.2 and Posttraumatic stress disorder F43.10 [place] [address] [address] Sep, Bipolar disorder, unspecified F31.9 [facility] [address] [facility] [address] [id number] [address] Sep, Dental examination Z01.20 an d Oral health maintenance status requiring routine preventive dental care K08.9 [place] [address] [address] Aug, Bipolar disorder, unspecified F31.9 [place] [address] [address] Jul, Bipolar disorder, unspecified F31.9 [place] [address] [address] Jun, Bipolar disorder, unspecified F31.9 ; Po sttraumatic stress disorder F43.10 ; Attention deficit hyperactivity disorder (ADHD), combined type F90.2 and 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 [facility] [address] [id number] [place] [address] May, Caries K02.9 [facility] [address] [id number] [place] [address] May, Caries K02.9 [facility] [address] [id number] [address] May, 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 requiring routine preventive dental care K08.9 [facility] [address] [address] Apr, Bipolar disorder, unspecified F31.9 [facility] [address] [address] Apr, [facility] [address] [address] Apr, Bipolar disorder, unspecified F31.9 [facility] [address] [address] Apr, Bipolar disorder, unspecified F31.9 [facility] [address] [address] Apr, [facility] [address] [address] March, Bipolar disorder, unspecified F31.9 ; At tention deficit hyperactivity disorder (ADHD), combined type F90.2 ; Posttraumatic stress disorder F43.10 and 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 [facility] LOPEZ [address] [id number] [place] [address] March, Dental examination Z01.20 and Caries K02 .9 [facility] [id number] [place] [address] Feb, Bipolar disorder, unspecified F31.9 [facility] [address] [address] Jan, Oral health maintenance status requiring routine preventive dental care K08.9 ; Dental examination Z01.20 and Caries K02.9 [facility] [id number] [place] [address] Jan, Bipolar disorder, unspecified F31.9 [facility] [id number] [place] [address] Dec, Bipolar disorder, unspecified F31.9 ; At tention deficit hyperactivity disorder (ADHD), combined type F90.2 and Posttraumatic stress disorder F43.10 [facility] [address] [facility] [id number] [place] [address] Oct, Sore throat J02.9 [facility] [address] [address] Oct, [facility] [address] [address] Oct, Bipolar disorder, unspecified F31.9 [facility] [address] [id number] [place] [id number] Sep, Oral health maintenance status requiring routine preventive dental care K08.9 [facility] [address] [address] Sep, Bipolar disorder, unspecified F31.9 ; At tention deficit hyperactivity disorder (ADHD), combined type F90.2 and Posttraumatic stress disorder F43.10 [facility] [id number] [place] [address] Aug, Lymphadenopathy of left cerv ical region R59.0 [facility] [address] [address] Aug, Encounter for immunization Z23 [facility] [address] [address] Aug, Other mcfp (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 Z 79.899 [facility] [address] [address] Jul, Bipolar disorder, unspecified F31.9 [facility] [address] [address] Jun, Bipolar disorder, unspecified F31.9 [facility] [address] [address] Jun, [facility] [address] [address] Jun, Bipolar disorder, unspecified F31.9 ; At tention deficit hyperactivity disorder (ADHD), combined type F90.2 ; Posttraumatic stress disorder F43.10 and Other mcfp (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 Z79.899 [facility] [address] [id number] Jun, Dental examination Z01.20 [facility] [address] [address] May, [place] [address] [address] Apr, Bipolar disorder, unspecified F31.9 [facility] [address] [address] March, Bipolar disorder, unspecified F31.9 ; At tention deficit hyperactivity disorder (ADHD), combined type F90.2 and Posttraumatic stress disorder F43.10 [facility] [address] [address] Feb, [facility] [address] [facility] [id number] [place] [address] Feb, Insect bite (nonvenomous), l eft knee, initial encounter S80.262A and Bitten or stung by nonvenomous insect and other nonvenomous arthropods, initial encounter W57.XXXA [facility] [address] [address] Feb, Bipolar disorder, unspecified F31.9 [facility] [address] [id number] Feb, Dental examination Z01.20 [facility] [address] [address] Feb, Bipolar disorder, unspecified F31.9 ; At tention deficit hyperactivity disorder (ADHD), combined type F90.2 and Posttraumatic stress disorder F43.10 [facility] [address] [id number] Feb, Dental examination Z01.20 [facility] [address] [address] Jan, Bipolar disorder, unspecified F31.9 [facility] [address] [address] Jan, Attention deficit hyperactivity disorder (ADHD), combined type F90.2 [facility] [address] [address] Dec, Posttraumatic stress disorder F43.10 [facility] [address] [address] Dec, Posttraumatic stress disorder F43.10 [facility] [address] [id number] Nov, Dental examination Z01.20 [facility] [address] [id number] Nov, 2017 Encounter for dental exam and cleaning w /o abnormal findings Z01.20 [facility] [address] [id number] Nov, Dental examination Z01.20 [facility] [address] [address] Sep, Bipolar disorder, unspecified F31.9 ; Po sttraumatic stress disorder F43.10 and Attention deficit hyperactivity disorder (ADHD), combined type F90.2 [facility] [address] [address] Aug, Posttraumatic stress disorder F43.10 [facility] [address] [address] 15 Jul, 2017 Other mcfp (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 Z 79.899 [facility] [address] [address] 11 Jul, 2017 Bipolar disorder, unspecified F31.9 ; At tention deficit hyperactivity disorder (ADHD), combined type F90.2 and Posttraumatic stress disorder F43.10 [facility] [id number] [place] [address] Jun, Bipolar disorder, unspecified F31.9 ; Po sttraumatic stress disorder F43.10 ; Attention deficit hyperactivity disorder (ADHD), combined type F90.2 and Other mcfp (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 Z79.899 [facility] [address] [address] March, Bipolar disorder, unspecified F31.9 ; Po sttraumatic stress disorder F43.10 and Attention deficit hyperactivity disorder (ADHD), combined type F90.2 [facility] [address] [address] Dec, Bipolar disorder, unspecified F31.9 ; Po sttraumatic stress disorder F43.10 and Attention deficit hyperactivity disorder (ADHD), combined type F90.2 [facility] [address] [address] Dec, [facility] [address] [address] Sep, [facility] [address] [address] Aug, Bipolar disorder, unspecified F31.9 ; Po sttraumatic stress disorder F43.10 and Attention deficit hyperactivity disorder (ADHD), combined type F90.2 [facility] [address] [address] Jun, [facility] [address] [address] March, [facility] [address] [address] Feb, Bipolar disorder, unspecified F31.9 ; At tention deficit hyperactivity disorder (ADHD), combined type F90.2 and Posttraumatic stress disorder F43.10 [facility] [id number] [place] [address] Feb, [facility] [id number] [place] [address] Feb, [facility] [id number] [place] [address] Feb, [facility] [id number] [place] [address] Jan, [facility] [address] [facility] [place] [id number] Dec, Dental examination Z01.20 [facility] [id number] [place] [address] Sep, [facility] [address] [address] Sep, Attention deficit hyperactivity disorder (ADHD), combined type F90.2 ; Posttraumatic stress disorder F43.10 and Bipolar disorder, unspecified F31.9 [facility] [address] [address] Aug, [facility] [id number] [place] [address] Aug, [facility] [address] [address] Jul, [facility] [address] [address] May, Bipolar disorder, unspecified 296.80 ; A ttention deficit 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.00 and Posttraumatic stress disorder 309.81 [facility] [id number] [place] [address] May, [facility] [address] [address] May, [facility] [address] [address] May, [facility] [address] [address] Apr, [facility] [address] [address] Apr, [facility] [place] [facility] [address] [facility] [id number] [place] [address] Apr, [facility] [place] [facility] [address] [facility] [id number] [facility] [place] [address] March, [facility] [place] [facility] [address] [id number] [place] [address] March, [facility] [place] [facility] [address] [id number] [place] [address] March, [facility] [place] [facility] [address] [facility] [id number] [facility] [place] [address] Feb, [facility] [place] [facility] [address] [id number] [place] [address] Feb, [facility] [place] [facility] [address] [id number] [place] [address] Jan, [facility] [place] [facility] [address] [id number] [place] [address] Jan, [facility] [place] [facility] [address] [id number] [place] [address] Jan, [facility] [place] [facility] [address] [id number] [place] [address] Jan, [facility] [place] [facility] [address] [id number] [place] [address] Jan, [facility] [place] [facility] [address] [id number] [place] [address] Jan, [facility] [place] [facility] [address] [facility] [id number] [place] [address] Jan, [facility] [place] [facility] [address] [id number] [place] [address] Jan, [facility] [place] [facility] [address] [id number] [place] [address] Jan, [facility] [place] [facility] [address] [id number] [place] [address] Jan, [facility] [place] [facility] [address] [id number] [place] [address] Dec, 2014 [facility] [place] [facility] [address] [id number] [place] [address] Dec, 2014 [facility] [place] [facility] [address] [id number] [place] [address] Dec, 2014 [facility] [place] [facility] [address] [id number] [place] [address] Dec, 2014 [facility] [place] [facility] [address] [id number] [place] [address] Oct, [facility] [place] [facility] [address] [id number] [place] [address] Oct, [facility] [place] [facility] [address] [id number] [place] [address] Oct, [facility] [place] [facility] [id number] [place] [address] Oct, [facility] [place] [facility] [id number] [place] [address] Oct, [facility] [place] [facility] [address] [id number] [place] [address] Oct, [facility] [place] [facility] [id number] [place] [address] Oct, [facility] [place] [facility] [address] [id number] [place] [address] Sep, [facility] [place] [facility] [address] [id number] [place] [address] Sep, [facility] [place] [facility] [address] [id number] [place] [address] Sep, [facility] [place] [facility] [id number] [place] [address] Sep, [facility] [place] [facility] [address] [id number] [place] [address] Sep, [facility] [place] [facility] [id number] [place] [address] Sep, [facility] [place] [facility] [address] [id number] [place] [address] Sep, [facility] [place] [facility] [address] [id number] [place] [address] Sep, [facility] [place] [facility] [address] [id number] [place] [address] Aug, [facility] [place] [facility] [address] [id number] [place] [address] Aug, [facility] [place] [facility] [address] [facility] [id number] [place] [address] Aug, [facility] [place] [facility] [address] [id number] [place] [address] Aug, [facility] [place] [facility] [address] [id number] [place] [address] Jul, [facility] [place] [facility] [address] [id number] [place] [address] Jul, [facility] [place] [facility] [address] [id number] [place] [address] Jul, [facility] [place] [facility] [address] [id number] [place] [address] Jul, [facility] [place] [facility] [address] [id number] [place] [address] Jun, [facility] [place] [facility] [address] [id number] [place] [address] Jun, [facility] [place] [facility] [address] [id number] [place] [address] Jun, [facility] [place] [facility] [address] [id number] [place] [address] Jun, [facility] [place] [facility] [address] [id number] [place] [address] May, [facility] [place] [facility] [address] [id number] [place] [address] May, [facility] [place] [facility] [address] [id number] [facility] [address] May, [facility] [place] [facility] [address] [facility] [id number] [facility] [place] [address] May, [facility] [place] [facility] [address] [facility] [id number] [facility] [address] Apr, [facility] [place] [facility] [address] [id number] [facility] [address] Apr, [facility] [place] [facility] [address] [id number] [place] [address] Apr, [facility] [place] [facility] [address] [facility] [id number] [facility] [address] Apr, [facility] [place] [facility] [address] [id number] [facility] [address] Apr, [facility] [place] [facility] [address] [id number] [facility] [address] Apr, [facility] [place] [facility] [address] [id number] [facility] [address] Apr, [facility] [place] [facility] [address] [id number] [facility] [address] Apr, [facility] [place] [facility] [address] [id number] [facility] [address] Apr, [facility] [place] [facility] [address] [id number] [place] [address] Apr, [facility] [place] [facility] [address] [id number] [place] [address] Apr, [facility] [place] [facility] [address] [id number] [facility] [address] Apr, [facility] [place] [facility] [address] [id number] [place] [address] Apr, [facility] [place] [facility] [address] [id number] [place] [address] March, [facility] [place] [facility] [address] [id number] [facility] [address] March, [facility] [place] [facility] [address] [id number] [place] [address] March, [facility] [place] [facility] [address] [facility] [id number] [place] [address] March, [facility] [place] [facility] [address] [id number] [place] [address] Jan, [facility] [place] [facility] [address] [id number] [place] [address] Jan, [facility] [place] [facility] [address] [id number] [place] [address] Jan, [facility] [place] [facility] [address] [id number] [place] [address] Jan, [facility] [place] [facility] [address] [id number] [place] [address] Jan, [facility] [place] [facility] [address] [id number] [place] [address] Jan, [facility] [place] [facility] [address] [id number] [place] [address] Dec, [facility] [place] [facility] [address] [id number] [place] [address] Dec, [facility] [place] [facility] [address] [id number] [place] [address] Dec, [facility] [place] [facility] [address] [id number] [place] [address] Dec, [facility] [place] [facility] [address] [id number] [place] [address] Nov, [facility] [place] [facility] [address] [id number] [place] [address] Nov, [facility] [place] [facility] [address] [id number] [place] [address] Nov, [facility] [place] [facility] [address] [id number] [place] [address] Nov, [facility] [place] [facility] [address] [id number] [place] [address] Oct, 2012 [facility] [place] [facility] [address] [id number] [place] [address] Oct, 2012 [facility] [place] [facility] [address] [id number] [place] [address] Oct, [facility] [place] [facility] [address] [id number] [place] [address] Oct, [facility] [place] [facility] [address] [id number] [place] [address] Oct, [facility] [place] [facility] [address] [id number] [place] [address] Oct, [facility] [place] [facility] [address] [id number] [place] [address] Oct, [facility] [place] [facility] [address] [id number] [place] [address] Oct, [facility] [place] [facility] [address] [id number] [place] [address] Sep, [facility] [place] [facility] [address] [id number] [place] [address] Sep, [facility] [place] [facility] [address] [id number] [place] [address] Jul, [facility] [place] [facility] [address] [id number] [place] [address] Jul, [facility] [place] [facility] [address] [id number] [place] [address] Jul, [facility] [place] [facility] [address] [id number] [place] [address] Jul, [facility] [place] [facility] [address] [id number] [place] [address] Jun, [facility] [place] [facility] [address] [id number] [place] [address] Jun, [facility] [place] [facility] [address] [id number] [place] [address] May, [facility] [place] [id number] [place] [address] Apr, [facility] [id number] [place] [address] Apr, [facility] [id number] [place] [address] Apr, [facility] [id number] [place] [address] March, [facility] [id number] [place] [address] March, [facility] [id number] [place] [address] Feb, [facility] [id number] [place] [address] Jan, [facility] [id number] [place] [address] Jan, [facility] [id number] [place] [address] Dec, [facility] [id number] [place] [address] Dec, [facility] [id number] [place] [address] Nov, [facility] [id number] [place] [address] Nov, [facility] [id number] [place] [address] Nov, [facility] [id number] [place] [address] Oct, [facility] [id number] [place] [address] Oct, [facility] [id number] [place] [address] Oct, [facility] [id number] [place] [address] Oct, [facility] [id number] [place] [address] Sep, [facility] [id number] [place] [address] Sep, [facility] [id number] [place] [address] Sep, [facility] [id number] [place] [address] Sep, [facility] [id number] [place] [address] Sep, [facility] [id number] [place] [address] Sep, [facility] [id number] [place] [address] Aug, [facility] [id number] [place] [address] 26 Jul, 2012 [facility] [id number] [place] [address] Jul, [facility] [id number] [place] [address] 18 Jul, 2012 [facility] [id number] [place] [address] 14 Jul, 2012 [facility] [id number] [place] [address] Jun, [facility] [id number] [place] [address] Jun, [facility] [id number] [place] [address] Jun, [facility] [id number] [place] [address] Jun, [facility] [id number] [place] [address] May, [facility] [id number] [place] [address] Apr, [facility] [id number] [place] [address] March, [facility] [id number] [place] [address] March, [facility] [id number] [place] [address] March, [facility] [id number] [place] [address] Feb, [facility] [id number] [place] [address] Feb, [facility] [id number] [place] [address] Jan, [facility] [id number] [place] [address] Jan, [facility] [id number] [place] [address] Jan, [facility] [id number] [place] [address] Dec, [facility] [id number] [place] [address] Dec, [facility] [id number] [place] [address] Nov, [facility] [id number] [place] [address] Nov, [facility] [id number] [place] [address] Nov, [facility] [id number] [place] [address] Nov, [facility] [id number] [place] [address] Nov, [facility] [id number] [place] [address] Oct, [facility] [id number] [place] [address] Oct, [facility] [id number] [place] [address] Oct, [facility] [id number] [place] [address] Oct, [facility] [id number] [place] [address] Sep, [facility] [id number] [place] [address] Sep, [facility] [id number] [place] [address] Sep, [facility] [id number] [place] [address] Aug, [facility] [id number] [place] [address] Oct, [facility] [id number] [place] [address] Oct, [facility] [id number] [place] [address] Oct, [facility] [id number] [place] [address] Oct, IMMUNIZATIONS No Known Immunizations SOCIAL HISTORY [...]
--- OUTSIDE RECORDS SUMMARY | 2020-04-25 14:49 | XMS REPORT ---
Author Author Ronna Blackmon Doctor Organization [facility] Address Unknown Phone Unavailable Care Team Providers Care Collision Estimator Name Role Phone Migration, Doctor Unavailable Unavailable PROBLEMS Type Condition ICD9-CM Code [id number] Code Onset Dates Condition S tatus SNOMED Code Problem Posttraumatic stress disorder F43.10 Active 47192060 Problem Anxiety F41.9 Active 34556240 Problem Bipolar disorder, unspecified F31.9 Active 29638111 Problem Attention deficit hyperactivity disorder (ADHD), combi dylon type F90.2 Active [id number] ALLERGIES No Information ENCOUNTERS Encounter Location Date Diagnosis [facility] [address] [address] Feb, [facility] [address] [address] Jan, [facility] [address] [address] Jan, [facility] [address] [address] Jan, Bipolar disorder, unspecified F31.9 [facility] [address] [address] Dec, [facility] [address] [address] Dec, Bipolar disorder, unspecified F31.9 ; Po sttraumatic stress disorder F43.10 ; Attention deficit hyperactivity disorder (ADHD), combined type F90.2 and Anxiety F41.9 [facility] [address] [address] Dec, Bipolar disorder, unspecified F31.9 [facility] [id number] [place] [address] Dec, 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 requiring routine preventive dental care K08.9 [facility] [address] [id number] [place] [address] 05 Dec, 2019 Bipolar disorder, unspecified F31.9 [facility] [address] [facility] [id number] 100[address] [place] [address] 13 Nov, 2019 Post-nasal drip R09.82 [facility] [address] [address] Nov, Bipolar disorder, unspecified F31.9 [facility] [address] [address] Oct, [facility] [address] [address] Oct, Bipolar disorder, unspecified F31.9 [facility] [address] [address] Sep, Bipolar disorder, unspecified F31.9 ; At tention deficit hyperactivity disorder (ADHD), combined type F90.2 and Posttraumatic stress disorder F43.10 [facility] [address] [address] Sep, Bipolar disorder, unspecified F31.9 [facility] [address] [address] [id number] [address] Sep, Dental examination Z01.20 an d Oral health maintenance status requiring routine preventive dental care K08.9 [facility] [address] [address] Aug, Bipolar disorder, unspecified F31.9 [facility] [id number] [place] [address] Jul, Bipolar disorder, unspecified F31.9 [facility] [address] [address] Jun, Bipolar disorder, unspecified F31.9 ; Po sttraumatic stress disorder F43.10 ; Attention deficit hyperactivity disorder (ADHD), combined type F90.2 and Other usp (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 Z79.899 [facility] [address] [id number] [place] [address] May, Caries K02.9 [facility] [address] [id number] [place] [address] May, Caries K02.9 [facility] [address] [facility] [address] [id number] [place] [address] May, 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 requiring routine preventive dental care K08.9 [facility] [address] [address] Apr, Bipolar disorder, unspecified F31.9 [facility] [address] [address] Apr, [facility] [address] [address] Apr, Bipolar disorder, unspecified F31.9 [facility] [address] [address] Apr, Bipolar disorder, unspecified F31.9 [facility] [address] [address] Apr, [facility] [address] [address] March, Bipolar disorder, unspecified F31.9 ; At tention deficit hyperactivity disorder (ADHD), combined type F90.2 ; Posttraumatic stress disorder F43.10 and Other usp (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 Z79.899 [facility] [address] [id number] [place] [address] March, Dental examination Z01.20 and Caries K02 .9 [facility] [address] [address] Feb, Bipolar disorder, unspecified F31.9 [facility] [address] [address] Jan, Oral health maintenance status requiring routine preventive dental care K08.9 ; Dental examination Z01.20 and Caries K02.9 [facility] [address] [id number] [place] [address] Jan, Bipolar disorder, unspecified F31.9 [facility] [address] [address] Dec, Bipolar disorder, unspecified F31.9 ; At tention deficit hyperactivity disorder (ADHD), combined type F90.2 and Posttraumatic stress disorder F43.10 [facility] [address] [id number] [address] [place] [address] Oct, Sore throat J02.9 [facility] [address] [address] Oct, [facility] [address] [address] Oct, Bipolar disorder, unspecified F31.9 [facility] [id number] [place] [id number] Sep, Oral health maintenance status requiring routine preventive dental care K08.9 [facility] [address] [address] Sep, Bipolar disorder, unspecified F31.9 ; At tention deficit hyperactivity disorder (ADHD), combined type F90.2 and Posttraumatic stress disorder F43.10 [facility] [id number] [place] [address] Aug, Lymphadenopathy of left cerv ical region R59.0 [facility] [address] [address] Aug, Encounter for immunization Z23 [address] [address] [address] [address] Aug, Other lobsterman (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 Z 79.899 [facility] [address] [address] Jul, Bipolar disorder, unspecified F31.9 [facility] [address] [address] Jun, Bipolar disorder, unspecified F31.9 [facility] [address] [address] Jun, [facility] [address] [address] Jun, Bipolar disorder, unspecified F31.9 ; At tention deficit hyperactivity disorder (ADHD), combined type F90.2 ; Posttraumatic stress disorder F43.10 and Other usp (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 Z79.899 [facility] [address] [id number] Jun, Dental examination Z01.20 [facility] [address] [address] May, [facility] [address] [address] Apr, Bipolar disorder, unspecified F31.9 [facility] [address] [address] March, Bipolar disorder, unspecified F31.9 ; At tention deficit hyperactivity disorder (ADHD), combined type F90.2 and Posttraumatic stress disorder F43.10 [facility] [address] [address] Feb, [facility] [address] [facility] [id number] [place] [address] Feb, Insect bite (nonvenomous), l eft knee, initial encounter S80.262A and Bitten or stung by nonvenomous insect and other nonvenomous arthropods, initial encounter W57.XXXA [facility] [address] [address] Feb, Bipolar disorder, unspecified F31.9 [facility] [address] [id number] Feb, Dental examination Z01.20 [facility] [address] [address] Feb, Bipolar disorder, unspecified F31.9 ; At tention deficit hyperactivity disorder (ADHD), combined type F90.2 and Posttraumatic stress disorder F43.10 [facility] [address] [id number] Feb, Dental examination Z01.20 [facility] [address] [address] Jan, Bipolar disorder, unspecified F31.9 [facility] [address] [address] Jan, Attention deficit hyperactivity disorder (ADHD), combined type F90.2 [facility] [address] [address] Dec, Posttraumatic stress disorder F43.10 [facility] [address] [address] Dec, Posttraumatic stress disorder F43.10 [facility] [address] [id number] Nov, Dental examination Z01.20 [facility] [address] [id number] Nov, Encounter for dental exam and cleaning w /o abnormal findings Z01.20 [facility] [address] [id number] Nov, Dental examination Z01.20 [facility] [address] [address] Sep, Bipolar disorder, unspecified F31.9 ; Po sttraumatic stress disorder F43.10 and Attention deficit hyperactivity disorder (ADHD), combined type F90.2 [facility] [address] [address] Aug, Posttraumatic stress disorder F43.10 [facility] [address] [address] Jul, Other lobsterman (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 Z 79.899 [facility] [address] [address] 11 Jul, 2017 Bipolar disorder, unspecified F31.9 ; At tention deficit hyperactivity disorder (ADHD), combined type F90.2 and Posttraumatic stress disorder F43.10 [facility] [address] [address] Jun, Bipolar disorder, unspecified F31.9 ; Po sttraumatic stress disorder F43.10 ; Attention deficit hyperactivity disorder (ADHD), combined type F90.2 and Other lobsterman (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 Z79.899 [facility] [address] [address] March, Bipolar disorder, unspecified F31.9 ; Po sttraumatic stress disorder F43.10 and Attention deficit hyperactivity disorder (ADHD), combined type F90.2 [facility] [address] [address] Dec, Bipolar disorder, unspecified F31.9 ; Po sttraumatic stress disorder F43.10 and Attention deficit hyperactivity disorder (ADHD), combined type F90.2 [facility] [address] [address] Dec, [facility] [address] [address] Sep, [facility] [address] [address] Aug, Bipolar disorder, unspecified F31.9 ; Po sttraumatic stress disorder F43.10 and Attention deficit hyperactivity disorder (ADHD), combined type F90.2 [facility] [address] [address] Jun, [facility] [address] [address] March, [facility] [address] [address] Feb, Bipolar disorder, unspecified F31.9 ; At tention deficit hyperactivity disorder (ADHD), combined type F90.2 and Posttraumatic stress disorder F43.10 [facility] [id number] [place] [address] Feb, [facility] [id number] [place] [address] Feb, [facility] [id number] [place] [address] Feb, [facility] [address] [address] Jan, [facility] [id number] [place] [id number] Dec, Dental examination Z01.20 [facility] [id number] [place] [address] Sep, [facility] [address] [address] Sep, Attention deficit hyperactivity disorder (ADHD), combined type F90.2 ; Posttraumatic stress disorder F43.10 and Bipolar disorder, unspecified F31.9 [facility] [address] [address] Aug, [facility] [address] [address] Aug, [facility] [address] [address] Jul, [facility] [address] [address] May, Bipolar disorder, unspecified 296.80 ; A ttention deficit 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.00 and Posttraumatic stress disorder 309.81 [facility] [id number] [place] [address] May, [facility] [address] [address] May, [facility] [address] [place] [address] May, [facility] [address] [facility] [id number] [place] [address] Apr, [facility] [address] [id number] [place] [address] Apr, [facility] [address] [id number] [place] [address] Apr, [facility] [address] [id number] [place] [address] March, [facility] [address] [id number] [place] [address] March, [facility] [address] [id number] [place] [address] March, [facility] [address] [id number] [place] [address] Feb, [facility] [address] [id number] [place] [address] Feb, [facility] [address] [id number] [place] [address] Jan, [facility] [address] [id number] [place] [address] Jan, [facility] [address] [id number] [place] [address] Jan, [facility] [address] [id number] [place] [address] Jan, [facility] [address] [id number] [place] [address] Jan, [facility] [address] [id number] [place] [address] Jan, [facility] [address] [id number] [place] [address] Jan, [facility] [address] [id number] [place] [address] Jan, [facility] [address] [id number] [place] [address] Jan, 2014 [facility] [address] [id number] [place] [address] Jan, 2014 [facility] [address] [id number] [place] [address] Dec, 2014 [facility] [id number] [place] [address] Dec, 2014 [facility] [address] [id number] [place] [address] Dec, 2014 [facility] [id number] [place] [address] Dec, 2014 [facility] [address] [id number] [place] [address] Oct, [facility] [id number] [place] [address] Oct, [facility] [address] [id number] [place] [address] Oct, [facility] [id number] [place] [address] Oct, [facility] [address] [id number] [place] [address] Oct, [facility] [id number] [place] [address] Oct, [facility] [address] [id number] [place] [address] Oct, [facility] [address] [id number] [place] [address] Sep, [facility] [id number] [place] [address] Sep, [facility] [address] [id number] [place] [address] Sep, [facility] [id number] [place] [address] Sep, [facility] [address] [id number] [place] [address] Sep, [facility] [address] [id number] [place] [address] Sep, [facility] [address] [id number] [place] [address] Sep, [facility] [address] [id number] [place] [address] Sep, [facility] [address] [id number] [place] [address] Aug, [facility] [address] [id number] [place] [address] Aug, [facility] [address] [id number] [place] [address] Aug, [facility] [address] [id number] [place] [address] Aug, [facility] [address] [id number] [place] [address] Jul, [facility] [address] [id number] [place] [address] Jul, [facility] [address] [id number] [place] [address] Jul, [facility] [address] [id number] [place] [address] Jul, [facility] [address] [id number] [place] [address] Jun, [facility] [address] [id number] [place] [address] Jun, [facility] [address] [id number] [place] [address] Jun, [facility] [address] [id number] [place] [address] Jun, [facility] [address] [id number] [facility] [place] [address] May, [facility] [address] [id number] [place] [address] May, [facility] [address] [facility] [id number] [place] [address] May, [facility] [address] [facility] [id number] [place] [address] May, [facility] [address] [facility] [id number] [place] [address] Apr, [facility] [address] [facility] [id number] [place] [address] Apr, [facility] [address] [id number] [place] [address] Apr, [facility] [address] [id number] [place] [address] Apr, [facility] [address] [id number] [place] [address] Apr, [facility] [address] [facility] [id number] [place] [address] Apr, [facility] [address] [id number] [place] [address] Apr, [facility] [address] [id number] [place] [address] Apr, [facility] [address] [id number] [place] [address] Apr, [facility] [address] [facility] [id number] [place] [address] Apr, [facility] [address] [id number] [place] [address] Apr, [facility] [address] [id number] [place] [address] Apr, [facility] [address] [id number] [place] [address] Apr, [facility] [address] [id number] [place] [address] March, [facility] [address] [id number] [place] [address] March, [facility] [address] [id number] [place] [address] March, [facility] [address] [id number] [place] [address] March, [facility] [address] [id number] [place] [address] Jan, [facility] [address] [id number] [place] [address] Jan, [facility] [address] [id number] [place] [address] Jan, [facility] [address] [id number] [place] [address] Jan, [facility] [address] [id number] [place] [address] Jan, [facility] [address] [id number] [place] [address] Jan, [facility] [address] [id number] [place] [address] Dec, [facility] [address] [id number] [place] [address] Dec, [facility] [address] [id number] [place] [address] Dec, [facility] [address] [id number] [place] [address] Dec, [facility] [address] [id number] [place] [address] Nov, [facility] [address] [id number] [place] [address] Nov, [facility] [address] [id number] [place] [address] Nov, [facility] [address] [id number] [place] [address] Nov, [facility] [address] [id number] [place] [address] Oct, [facility] [address] [id number] [place] [address] Oct, [facility] [address] [id number] [place] [address] Oct, [facility] [address] [id number] [place] [address] Oct, [facility] [address] [id number] [place] [address] Oct, [facility] [address] [id number] [place] [address] Oct, [facility] [address] [id number] [place] [address] Oct, [facility] [address] [id number] [place] [address] Oct, [facility] [address] [id number] [place] [address] Sep, [facility] [address] [id number] [place] [address] Sep, [facility] [address] [id number] [place] [address] Jul, [facility] [address] [id number] [place] [address] Jul, [facility] [address] [id number] [place] [address] Jul, [facility] [address] [id number] [place] [address] Jul, [facility] [address] [id number] [place] [address] Jun, [facility] [address] [id number] [place] [address] Jun, [facility] [address] [id number] [place] [address] May, [facility] [address] [id number] [place] [address] Apr, [facility] [address] [id number] [place] [address] Apr, [facility] [address] [id number] [place] [address] Apr, [facility] [address] [id number] [place] [address] March, [facility] [address] [id number] [place] [address] March, [facility] [address] [id number] [place] [address] Feb, [facility] [address] [id number] [place] [address] Jan, [facility] [address] [id number] [place] [address] Jan, [facility] [address] [id number] [place] [address] Dec, [facility] [address] [id number] [place] [address] Dec, [facility] [address] [id number] [place] [address] Nov, [facility] [address] [id number] [place] [address] Nov, [facility] [id number] [place] [address] Nov, [facility] [address] [id number] [place] [address] Oct, [facility] [address] [id number] [place] [address] 18 Oct, 2012 [facility] [address] [id number] [place] [address] Oct, [facility] [address] [id number] [place] [address] Oct, [facility] [address] [id number] [place] [address] Sep, [facility] [address] [id number] [place] [address] Sep, [facility] [address] [id number] [place] [address] Sep, [facility] [address] [id number] [place] [address] Sep, [facility] [address] [id number] [place] [address] Sep, [facility] [address] [id number] [place] [address] 15 Sep, 2012 [facility] [address] [id number] [place] [address] Aug, [facility] [address] [id number] [place] [address] 26 Jul, 2012 [facility] [address] [id number] [place] [address] 19 Jul, 2012 [facility] [address] [id number] [place] [address] 18 Jul, 2012 [facility] [address] [id number] [place] [address] 14 Jul, 2012 [facility] [address] [id number] [place] [address] 28 Jun, 2012 [facility] [address] [id number] [place] [address] Jun, [facility] [address] [id number] [place] [address] Jun, [facility] [address] [id number] [place] [address] Jun, [facility] [id number] [place] [address] May, [facility] [address] [id number] [place] [address] Apr, [facility] [address] [id number] [place] [address] March, [facility] [address] [id number] [place] [address] March, [facility] [address] [id number] [place] [address] March, [facility] [address] [id number] [place] [address] Feb, [facility] [address] [id number] [place] [address] Feb, [facility] [address] [id number] [place] [address] Jan, [facility] [address] [id number] [place] [address] Jan, [facility] [address] [id number] [place] [address] Jan, [facility] [address] [id number] [place] [address] Dec, [facility] [address] [id number] [place] [address] Dec, [facility] [address] [id number] [place] [address] Nov, [facility] [id number] [place] [address] Nov, [facility] [address] [id number] [place] [address] Nov, [facility] [address] [id number] [place] [address] Nov, [facility] [address] [id number] [place] [address] Nov, [facility] [address] [id number] [place] [address] Oct, [facility] [address] [id number] [place] [address] Oct, [facility] [address] [id number] [place] [address] Oct, [facility] [id number] [place] [address] Oct, [facility] [id number] [place] [address] Sep, [facility] [id number] [place] [address] Sep, [facility] [id number] [place] [address] Sep, [facility] [id number] [place] [address] Aug, [facility] [address] [id number] [place] [address] Oct, [facility] [id number] [place] [address] Oct, [facility] [address] [id number] [place] [address] Oct, [facility] [address] [id number] [place] [address] Oct, IMMUNIZATIONS No Known Immunizations SOCIAL HISTORY [...]
--- OUTSIDE RECORDS SUMMARY | 2020-04-25 14:49 | XMS REPORT ---
Author Author Ronna Blackmon Doctor Organization [facility] Address Unknown Phone Unavailable Care Team Providers Care Seismic Computer Name Role Phone Migration, Doctor Unavailable Unavailable PROBLEMS Type Condition ICD9-CM Code CDS24-DI Code Onset Dates Condition S tatus SNOMED Code Problem Posttraumatic stress disorder F43.10 Active 51245335 Problem Bipolar disorder, unspecified F31.9 Active 27083321 Problem Attention deficit hyperactivity disorder (ADHD), combi dylon type F90.2 Active [id number] ALLERGIES No Information ENCOUNTERS Encounter Location Date Diagnosis OUTREACH [facility] [id number] [place] [address] Jan, [facility] [address] [address] Dec, [facility] [address] [address] Dec, Bipolar disorder, unspecified F31.9 [facility] [id number] [place] [address] 17 Dec, 2019 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 requiring routine preventive dental care K08.9 [facility] [address] [address] 05 Dec, 2019 Bipolar disorder, unspecified F31.9 [facility] [address] [id number] [place] [address] Nov, Post-nasal drip R09.82 [facility] [address] [address] Nov, Bipolar disorder, unspecified F31.9 [facility] [address] [address] Oct, [facility] [address] [address] Oct, Bipolar disorder, unspecified F31.9 [facility] [address] [address] Sep, Bipolar disorder, unspecified F31.9 ; At tention deficit hyperactivity disorder (ADHD), combined type F90.2 and Posttraumatic stress disorder F43.10 [facility] [address] [address] Sep, Bipolar disorder, unspecified F31.9 [facility] [address] [address] [id number] [address] Sep, Dental examination Z01.20 an d Oral health maintenance status requiring routine preventive dental care K08.9 [facility] [address] [address] Aug, Bipolar disorder, unspecified F31.9 [facility] [address] [address] Jul, Bipolar disorder, unspecified F31.9 [facility] [address] [address] Jun, Bipolar disorder, unspecified F31.9 ; Po sttraumatic stress disorder F43.10 ; Attention deficit hyperactivity disorder (ADHD), combined type F90.2 and Other medical terminologist (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 Z79.899 OUTREACH [facility] [address] [id number] [place] [address] May, Caries K02.9 [facility] [address] [id number] [place] [address] May, Caries K02.9 OUTREACH [facility] [address] [address] [id number] [place] [address] May, 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 requiring routine preventive dental care K08.9 [facility] [address] [address] Apr, Bipolar disorder, unspecified F31.9 [facility] [address] [address] 13 Apr, 2019 [facility] [address] [address] Apr, Bipolar disorder, unspecified F31.9 [facility] [address] [address] Apr, Bipolar disorder, unspecified F31.9 [facility] [address] [address] Apr, [facility] [address] [address] March, Bipolar disorder, unspecified F31.9 ; At tention deficit hyperactivity disorder (ADHD), combined type F90.2 ; Posttraumatic stress disorder F43.10 and Other retirement (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 Z79.899 OUTREACH [facility] [id number] [address] March, Dental examination Z01.20 and Caries K02 .9 [facility] [address] [address] Feb, Bipolar disorder, unspecified F31.9 [address] [address] Jan, Oral health maintenance status requiring routine preventive dental care K08.9 ; Dental examination Z01.20 and Caries K02.9 [facility] [address] [address] Jan, Bipolar disorder, unspecified F31.9 [facility] [address] [address] Dec, Bipolar disorder, unspecified F31.9 ; At tention deficit hyperactivity disorder (ADHD), combined type F90.2 and Posttraumatic stress disorder F43.10 [facility] [address] [facility] [id number] [place] [address] Oct, Sore throat J02.9 [facility] [address] [address] Oct, [facility] [address] [address] Oct, Bipolar disorder, unspecified F31.9 [facility] [address] [id number] Sep, Oral health maintenance status requiring routine preventive dental care K08.9 [facility] [address] [address] Sep, Bipolar disorder, unspecified F31.9 ; At tention deficit hyperactivity disorder (ADHD), combined type F90.2 and Posttraumatic stress disorder F43.10 [facility] [address] [facility] [id number] [address] [address] Aug, Lymphadenopathy of left cerv ical region R59.0 [facility] [address] [address] Aug, Encounter for immunization Z23 [facility] [address] [address] Aug, Other medical terminologist (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 Z 79.899 [facility] [address] [address] Jul, Bipolar disorder, unspecified F31.9 [facility] [address] [address] Jun, Bipolar disorder, unspecified F31.9 [facility] [address] [address] Jun, [facility] [address] [address] Jun, Bipolar disorder, unspecified F31.9 ; At tention deficit hyperactivity disorder (ADHD), combined type F90.2 ; Posttraumatic stress disorder F43.10 and Other retirement (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 Z79.899 [facility] [address] [id number] Jun, 2018 Dental examination Z01.20 [facility] [address] [address] May, [facility] [address] [address] Apr, Bipolar disorder, unspecified F31.9 [facility] [address] [address] March, Bipolar disorder, unspecified F31.9 ; At tention deficit hyperactivity disorder (ADHD), combined type F90.2 and Posttraumatic stress disorder F43.10 [facility] [address] [address] Feb, [facility] [address] [facility] [id number] [place] [address] Feb, Insect bite (nonvenomous), l eft knee, initial encounter S80.262A and Bitten or stung by nonvenomous insect and other nonvenomous arthropods, initial encounter W57.XXXA [facility] [address] [address] Feb, Bipolar disorder, unspecified F31.9 [facility] [address] [id number] Feb, Dental examination Z01.20 [facility] [address] [address] Feb, Bipolar disorder, unspecified F31.9 ; At tention deficit hyperactivity disorder (ADHD), combined type F90.2 and Posttraumatic stress disorder F43.10 [facility] [address] [id number] Feb, Dental examination Z01.20 [facility] [address] [address] Jan, Bipolar disorder, unspecified F31.9 [facility] [address] [address] Jan, Attention deficit hyperactivity disorder (ADHD), combined type F90.2 [facility] [address] [address] Dec, Posttraumatic stress disorder F43.10 [facility] [address] [address] 12 Dec, 2017 Posttraumatic stress disorder F43.10 [facility] [address] [id number] Nov, Dental examination Z01.20 [facility] [address] [id number] Nov, Encounter for dental exam and cleaning w /o abnormal findings Z01.20 [facility] [address] [id number] Nov, Dental examination Z01.20 [facility] [address] [address] Sep, Bipolar disorder, unspecified F31.9 ; Po sttraumatic stress disorder F43.10 and Attention deficit hyperactivity disorder (ADHD), combined type F90.2 [facility] [address] [address] Aug, Posttraumatic stress disorder F43.10 [facility] [address] [address] 15 Jul, 2017 Other retirement (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 Z 79.899 [facility] [address] [address] Jul, Bipolar disorder, unspecified F31.9 ; At tention deficit hyperactivity disorder (ADHD), combined type F90.2 and Posttraumatic stress disorder F43.10 [facility] [address] [address] Jun, Bipolar disorder, unspecified F31.9 ; Po sttraumatic stress disorder F43.10 ; Attention deficit hyperactivity disorder (ADHD), combined type F90.2 and Other retirement (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 Z79.899 [facility] [address] [address] March, Bipolar disorder, unspecified F31.9 ; Po sttraumatic stress disorder F43.10 and Attention deficit hyperactivity disorder (ADHD), combined type F90.2 [facility] [address] [address] Dec, Bipolar disorder, unspecified F31.9 ; Po sttraumatic stress disorder F43.10 and Attention deficit hyperactivity disorder (ADHD), combined type F90.2 [facility] [address] [address] Dec, [facility] [address] [address] Sep, [facility] [address] [address] Aug, Bipolar disorder, unspecified F31.9 ; Po sttraumatic stress disorder F43.10 and Attention deficit hyperactivity disorder (ADHD), combined type F90.2 [facility] [address] [address] Jun, [facility] [address] [address] March, [facility] [address] [address] Feb, Bipolar disorder, unspecified F31.9 ; At tention deficit hyperactivity disorder (ADHD), combined type F90.2 and Posttraumatic stress disorder F43.10 [facility] [address] [address] Feb, [facility] [address] [address] Feb, [facility] [address] [address] Feb, [facility] [address] [address] Jan, [facility] [address] [id number] [place] [id number] Dec, Dental examination Z01.20 [facility] [id number] [place] [address] Sep, [facility] [address] [address] Sep, Attention deficit hyperactivity disorder (ADHD), combined type F90.2 ; Posttraumatic stress disorder F43.10 and Bipolar disorder, unspecified F31.9 [facility] [address] [address] Aug, [facility] [address] [address] Aug, [facility] [address] [address] Jul, [facility] [address] [address] May, Bipolar disorder, unspecified 296.80 ; A ttention deficit 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.00 and Posttraumatic stress disorder 309.81 [facility] [address] [address] May, [facility] [address] [address] May, [facility] [address] [address] May, [facility] [address] [address] Apr, [facility] [address] [address] Apr, [facility] [address] [address] Apr, [facility] [address] [address] March, [facility] [address] [address] March, [facility] [address] [place] [address] March, [facility] [address] [id number] [place] [address] Feb, [facility] [address] [id number] [place] [address] Feb, [facility] [address] [id number] [place] [address] Jan, [facility] [address] [id number] [place] [address] Jan, [facility] [address] [id number] [place] [address] Jan, [facility] [address] [id number] [place] [address] Jan, [facility] [address] [id number] [place] [address] Jan, [facility] [address] [id number] [place] [address] Jan, [facility] [address] [id number] [place] [address] Jan, [facility] [address] [id number] [place] [address] Jan, [facility] [address] [id number] [place] [address] Jan, [facility] [address] [id number] [place] [address] Jan, [facility] [address] [id number] [place] [address] Dec, [facility] [address] [id number] [place] [address] Dec, [facility] [address] [id number] [place] [address] Dec, [facility] [address] [id number] [place] [address] Dec, [facility] [address] [id number] [place] [address] Oct, [facility] [address] [id number] [place] [address] Oct, [facility] [address] [id number] [place] [address] Oct, [facility] [address] [id number] [place] [address] Oct, [facility] [address] [id number] [place] [address] Oct, [facility] [address] [id number] [place] [address] Oct, [facility] [address] [id number] [place] [address] Oct, [facility] [id number] [place] [address] Sep, [facility] [address] [id number] [place] [address] Sep, [facility] [address] [id number] [place] [address] Sep, [facility] [address] [id number] [place] [address] Sep, [facility] [address] [id number] [place] [address] Sep, [facility] [address] [id number] [place] [address] Sep, [facility] [address] [id number] [place] [address] Sep, [facility] [address] [id number] [place] [address] Sep, [facility] [address] [id number] [place] [address] Aug, [facility] [address] [id number] [place] [address] Aug, [facility] [address] [facility] [id number] [place] [address] Aug, [facility] [address] [facility] [id number] [place] [address] Aug, [facility] [address] [id number] [place] [address] Jul, [facility] [address] [facility] [id number] [place] [address] Jul, [facility] [address] [facility] [id number] [place] [address] Jul, [facility] [address] [id number] [place] [address] Jul, [facility] [address] [id number] [place] [address] Jun, [facility] [address] [id number] [place] [address] Jun, [facility] [address] [id number] [place] [address] Jun, [facility] [address] [id number] [place] [address] Jun, [facility] [address] [id number] [place] [address] May, [facility] [address] [id number] [place] [address] May, [facility] [address] [id number] [place] [address] May, [facility] [address] [id number] [place] [address] May, [facility] [address] [id number] [place] [address] Apr, [facility] [address] [id number] [place] [address] Apr, [facility] [address] [id number] [place] [address] Apr, [facility] [address] [facility] [id number] [place] [address] Apr, [facility] [address] [facility] [id number] [place] [address] Apr, [facility] [address] [id number] [place] [address] Apr, [facility] [address] [id number] [place] [address] Apr, [facility] [address] [facility] [id number] [place] [address] Apr, [facility] [address] [id number] [place] [address] Apr, [facility] [address] [id number] [place] [address] Apr, [facility] [address] [id number] [place] [address] Apr, [facility] [address] [id number] [place] [address] Apr, [facility] [address] [id number] [place] [address] Apr, [facility] [address] [id number] [place] [address] March, [facility] [address] [id number] [place] [address] March, [facility] [address] [id number] [place] [address] March, [facility] [address] [id number] [place] [address] March, [facility] [address] [id number] [place] [address] Jan, [facility] [address] [id number] [place] [address] Jan, [facility] [address] [id number] [place] [address] Jan, [facility] [address] [id number] [place] [address] Jan, [facility] [address] [id number] [place] [address] Jan, [facility] [address] [id number] [place] [address] Jan, [facility] [address] [id number] [place] [address] Dec, [facility] [address] [id number] [place] [address] Dec, [facility] [address] [id number] [place] [address] Dec, [facility] [address] [id number] [place] [address] Dec, [facility] [address] [id number] [place] [address] Nov, [facility] [address] [id number] [place] [address] Nov, [facility] [address] [id number] [place] [address] Nov, [facility] [address] [id number] [place] [address] Nov, [facility] [address] [id number] [place] [address] Oct, [facility] [address] [id number] [place] [address] Oct, [facility] [address] [id number] [place] [address] Oct, [facility] [address] [id number] [place] [address] Oct, [facility] [address] [id number] [place] [address] Oct, [facility] [address] [id number] [place] [address] Oct, [facility] [address] [id number] [place] [address] Oct, [facility] [address] [id number] [place] [address] Oct, [facility] [address] [id number] [place] [address] Sep, [facility] [address] [id number] [place] [address] Sep, [facility] [address] [id number] [place] [address] Jul, [facility] [address] [id number] [place] [address] Jul, [facility] [address] [id number] [place] [address] Jul, [facility] [address] [id number] [place] [address] Jul, [facility] [address] [id number] [place] [address] Jun, [facility] [address] [id number] [place] [address] Jun, [facility] [address] [id number] [place] [address] May, [facility] [address] [id number] [place] [address] Apr, [facility] [address] [id number] [place] [address] Apr, [facility] [address] [id number] [place] [address] Apr, [facility] [address] [id number] [place] [address] March, [facility] [address] [id number] [place] [address] March, [facility] [address] [id number] [place] [address] Feb, [facility] [address] [id number] [place] [address] Jan, [facility] [address] [id number] [place] [address] Jan, [facility] [address] [id number] [place] [address] Dec, [facility] [address] [id number] [place] [address] Dec, [facility] [address] [id number] [place] [address] Nov, [facility] [id number] [place] [address] Nov, [facility] [address] [id number] [place] [address] Nov, [facility] [address] [id number] [place] [address] Oct, [facility] [address] [id number] [place] [address] Oct, [facility] [id number] [place] [address] Oct, [facility] [address] [id number] [place] [address] Oct, [facility] [address] [id number] [place] [address] Sep, [facility] [id number] [place] [address] Sep, [facility] [address] [id number] [place] [address] Sep, [facility] [id number] [place] [address] Sep, [facility] [address] [id number] [place] [address] Sep, [facility] [address] [id number] [place] [address] Sep, [facility] [address] [id number] [place] [address] Aug, [facility] [address] [id number] [place] [address] Jul, [facility] [address] [id number] [place] [address] Jul, [facility] [address] [id number] [place] [address] Jul, [facility] [address] [id number] [place] [address] Jul, [facility] [address] [facility] [facility] [id number] [place] [address] Jun, [facility] [address] [id number] [place] [address] Jun, [facility] [address] [id number] [place] [address] Jun, [facility] [address] [id number] [place] [address] Jun, [facility] [address] [id number] [place] [address] May, [facility] [address] [id number] [place] [address] Apr, [facility] [address] [id number] [place] [address] March, [facility] [address] [id number] [place] [address] March, [facility] [address] [id number] [place] [address] March, [facility] [address] [id number] [place] [address] Feb, [facility] [address] [id number] [place] [address] Feb, [facility] [address] [id number] [place] [address] Jan, [facility] [address] [id number] [place] [address] Jan, [facility] [address] [id number] [place] [address] Jan, [facility] [address] [id number] [place] [address] Dec, [facility] [address] [id number] [place] [address] Dec, [facility] [address] [id number] [place] [address] Nov, [facility] [address] [id number] [place] [address] Nov, [facility] [address] [id number] [place] [address] Nov, [facility] [address] [id number] [place] [address] Nov, [facility] [address] [id number] [place] [address] Nov, [facility] [address] [id number] [place] [address] Oct, [facility] [address] [id number] [place] [address] Oct, [facility] [address] [id number] [place] [address] Oct, [facility] [address] [id number] [place] [address] Oct, [facility] [address] [id number] [place] [address] Sep, [facility] [address] [id number] [place] [address] Sep, [facility] [address] [id number] [place] [address] Sep, [facility] [address] [id number] [place] [address] Aug, [facility] [address] [id number] [place] [address] Oct, [facility] [id number] [place] [address] Oct, [facility] [address] [id number] [place] [address] Oct, [facility] [address] [id number] [place] [address] Oct, IMMUNIZATIONS No Known Immunizations SOCIAL HISTORY [...]
--- OUTSIDE RECORDS SUMMARY | 2020-04-25 14:49 | XMS REPORT ---
Author Author Ronna Blackmon Doctor Organization [facility] Address Unknown Phone Unavailable Care Team Providers Care Divider Operator Name Role Phone Migration, Doctor Unavailable Unavailable PROBLEMS Type Condition ICD9-CM Code [id number] Code Onset Dates Condition S tatus SNOMED Code Problem Posttraumatic stress disorder F43.10 Active 83842555 Problem Anxiety F41.9 Active 92582273 Problem Bipolar disorder, unspecified F31.9 Active 30520783 Problem Attention deficit hyperactivity disorder (ADHD), combi dylon type F90.2 Active [id number] ALLERGIES No Information ENCOUNTERS Encounter Location Date Diagnosis [facility] [place] [address] [address] Feb, [facility] [address] [address] Jan, [facility] [place] [address] [address] Dec, [facility] [place] [address] [address] Dec, Bipolar disorder, unspecified F31.9 ; Po sttraumatic stress disorder F43.10 ; Attention deficit hyperactivity disorder (ADHD), combined type F90.2 and Anxiety F41.9 [facility] [place] [address] [address] Dec, Bipolar disorder, unspecified F31.[address] [facility] [id number] [place] [address] 17 Dec, 2019 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 requiring routine preventive dental care K08.9 [facility] [place] [address] [address] 05 Dec, 2019 Bipolar disorder, unspecified F31.9 [facility] [address] [id number] [place] [address] Nov, Post-nasal drip R09.82 [place] [address] [address] Nov, Bipolar disorder, unspecified F31.9 [place] [address] [address] Oct, [place] [address] [address] Oct, Bipolar disorder, unspecified F31.9 [place] [address] [address] Sep, Bipolar disorder, unspecified F31.9 ; At tention deficit hyperactivity disorder (ADHD), combined type F90.2 and Posttraumatic stress disorder F43.10 [place] [address] [address] Sep, Bipolar disorder, unspecified F31.[address] [facility] [address] [facility] [address] [id number] [address] Sep, Dental examination Z01.20 an d Oral health maintenance status requiring routine preventive dental care K08.9 [place] [address] [address] Aug, Bipolar disorder, unspecified F31.9 [place] [address] [address] Jul, Bipolar disorder, unspecified F31.9 [place] [address] [address] Jun, Bipolar disorder, unspecified F31.9 ; Po sttraumatic stress disorder F43.10 ; Attention deficit hyperactivity disorder (ADHD), combined type F90.2 and 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 [address] [id number] [place] [address] May, 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 requiring routine preventive dental care K08.9 [facility] [place] [address] [address] Apr, Bipolar disorder, unspecified F31.9 [facility] [place] [address] [address] Apr, [facility] [place] [address] [address] Apr, Bipolar disorder, unspecified F31.9 [facility] [place] [address] [address] Apr, Bipolar disorder, unspecified F31.9 [facility] [place] [address] [address] Apr, [facility] [place] [address] [address] March, Bipolar disorder, unspecified F31.9 ; At tention deficit hyperactivity disorder (ADHD), combined type F90.2 ; Posttraumatic stress disorder F43.10 and 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 [facility] [address] [id number] [place] [address] March, Dental examination Z01.20 and Caries K02 .9 [facility] [place] [address] [id number] [place] [address] Feb, Bipolar disorder, unspecified F31.9 [facility] [place] [address] [address] Jan, Oral health maintenance status requiring routine preventive dental care K08.9 ; Dental examination Z01.20 and Caries K02.9 [facility] [place] [id number] [place] [address] Jan, Bipolar disorder, unspecified F31.9 [facility] [place] [address] [id number] [place] [address] Dec, Bipolar disorder, unspecified F31.9 ; At tention deficit hyperactivity disorder (ADHD), combined type F90.2 and Posttraumatic stress disorder F43.10 [facility] [address] [facility] [id number] [place] [address] Oct, Sore throat J02.9 [facility] [place] [address] [address] Oct, [facility] [place] [address] [address] Oct, Bipolar disorder, unspecified F31.9 [facility] [address] [id number] [place] [id number] Sep, Oral health maintenance status requiring routine preventive dental care K08.9 [facility] [place] [address] [address] Sep, Bipolar disorder, unspecified F31.9 ; At tention deficit hyperactivity disorder (ADHD), combined type F90.2 and Posttraumatic stress disorder F43.10 [facility] [id number] [address] [place] [address] Aug, Lymphadenopathy of left cerv ical region R59.0 [facility] [place] [address] [address] Aug, Encounter for immunization Z23 [facility] [place] [address] [address] Aug, Other senior living (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 Z 79.899 [facility] [place] [address] [address] Jul, Bipolar disorder, unspecified F31.9 [facility] [place] [address] [address] Jun, Bipolar disorder, unspecified F31.9 [facility] [place] [address] [address] Jun, [facility] [place] [address] [address] Jun, Bipolar disorder, unspecified F31.9 ; At tention deficit hyperactivity disorder (ADHD), combined type F90.2 ; Posttraumatic stress disorder F43.10 and Other senior living (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 Z79.899 [facility] [address] [id number] Jun, Dental examination Z01.20 [facility] [place] [address] [address] May, [place] [address] [address] Apr, Bipolar disorder, unspecified F31.9 [facility] [place] [address] [address] March, Bipolar disorder, unspecified F31.9 ; At tention deficit hyperactivity disorder (ADHD), combined type F90.2 and Posttraumatic stress disorder F43.10 [facility] [place] [address] [address] Feb, [facility] [address] [facility] [id number] [place] [address] Feb, Insect bite (nonvenomous), l eft knee, initial encounter S80.262A and Bitten or stung by nonvenomous insect and other nonvenomous arthropods, initial encounter W57.XXXA [facility] [place] [address] [address] Feb, Bipolar disorder, unspecified F31.9 [facility] [address] [id number] Feb, Dental examination Z01.20 [facility] [place] [address] [address] Feb, Bipolar disorder, unspecified F31.9 ; At tention deficit hyperactivity disorder (ADHD), combined type F90.2 and Posttraumatic stress disorder F43.10 [facility] [address] [id number] Feb, Dental examination Z01.20 [facility] [place] [address] [address] Jan, Bipolar disorder, unspecified F31.9 [facility] [place] [address] [address] Jan, Attention deficit hyperactivity disorder (ADHD), combined type F90.2 [facility] [place] [address] [address] Dec, Posttraumatic stress disorder F43.10 [facility] [place] [address] [address] Dec, Posttraumatic stress disorder F43.10 [facility] [address] [id number] Nov, Dental examination Z01.20 [facility] [address] [id number] Nov, 2017 Encounter for dental exam and cleaning w /o abnormal findings Z01.20 [facility] [address] [id number] Nov, Dental examination Z01.20 [facility] [place] [address] [address] Sep, Bipolar disorder, unspecified F31.9 ; Po sttraumatic stress disorder F43.10 and Attention deficit hyperactivity disorder (ADHD), combined type F90.2 [facility] [place] [address] [address] Aug, Posttraumatic stress disorder F43.10 [facility] [place] [address] [address] 15 Jul, 2017 Other senior living (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 Z 79.899 [facility] [place] [address] [address] 11 Jul, 2017 Bipolar disorder, unspecified F31.9 ; At tention deficit hyperactivity disorder (ADHD), combined type F90.2 and Posttraumatic stress disorder F43.10 [facility] [place] [id number] [place] [address] Jun, Bipolar disorder, unspecified F31.9 ; Po sttraumatic stress disorder F43.10 ; Attention deficit hyperactivity disorder (ADHD), combined type F90.2 and Other senior living (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 Z79.899 [facility] [place] [address] [address] March, Bipolar disorder, unspecified F31.9 ; Po sttraumatic stress disorder F43.10 and Attention deficit hyperactivity disorder (ADHD), combined type F90.2 [facility] [place] [address] [address] Dec, Bipolar disorder, unspecified F31.9 ; Po sttraumatic stress disorder F43.10 and Attention deficit hyperactivity disorder (ADHD), combined type F90.2 [facility] [place] [address] [address] Dec, [facility] [place] [address] [address] Sep, [facility] [place] [address] [address] Aug, Bipolar disorder, unspecified F31.9 ; Po sttraumatic stress disorder F43.10 and Attention deficit hyperactivity disorder (ADHD), combined type F90.2 [facility] [place] [address] [address] Jun, [facility] [place] [address] [address] March, [facility] [place] [address] [address] Feb, Bipolar disorder, unspecified F31.9 ; At tention deficit hyperactivity disorder (ADHD), combined type F90.2 and Posttraumatic stress disorder F43.10 [facility] [place] [id number] [place] [address] Feb, [facility] [place] [id number] [place] [address] Feb, [facility] [place] [id number] [place] [address] Feb, [facility] [place] [id number] [place] [address] Jan, [facility] [address] [id number] [place] [id number] Dec, Dental examination Z01.20 [facility] [place] [id number] [place] [address] Sep, [facility] [place] [address] [address] Sep, Attention deficit hyperactivity disorder (ADHD), combined type F90.2 ; Posttraumatic stress disorder F43.10 and Bipolar disorder, unspecified F31.9 [facility] [place] [address] [address] Aug, [facility] [place] [id number] [place] [address] Aug, [facility] [place] [address] [address] Jul, [facility] [place] [address] [address] May, Bipolar disorder, unspecified 296.80 ; A ttention deficit 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.00 and Posttraumatic stress disorder 309.81 [facility] [place] [id number] [place] [address] May, [facility] [place] [address] [address] May, [facility] [place] [address] [address] May, [facility] [place] [address] [address] Apr, [facility] [place] [address] [address] Apr, [facility] [place] [facility] [address] [facility] [id number] [place] [address] Apr, [facility] [place] [facility] [address] [facility] [id number] [facility] [place] [address] March, [facility] [place] [facility] [address] [id number] [place] [address] March, [facility] [place] [facility] [address] [id number] [place] [address] March, [facility] [place] [facility] [address] [facility] [id number] [facility] [place] [address] Feb, [facility] [place] [facility] [address] [id number] [place] [address] Feb, [facility] [place] [facility] [address] [id number] [place] [address] Jan, [facility] [place] [facility] [address] [id number] [place] [address] Jan, [facility] [place] [facility] [address] [id number] [place] [address] Jan, [facility] [place] [facility] [address] [id number] [place] [address] Jan, [facility] [place] [facility] [address] [id number] [place] [address] Jan, [facility] [place] [facility] [address] [id number] [place] [address] Jan, [facility] [place] [facility] [address] [facility] [id number] [place] [address] Jan, [facility] [place] [facility] [address] [id number] [place] [address] Jan, [facility] [place] [facility] [address] [id number] [place] [address] Jan, [facility] [place] [facility] [address] [id number] [place] [address] Jan, [facility] [place] [facility] [address] [id number] [place] [address] Dec, 2014 [facility] [place] [facility] [address] [id number] [place] [address] Dec, 2014 [facility] [place] [facility] [address] [id number] [place] [address] Dec, 2014 [facility] [place] [facility] [address] [id number] [place] [address] Dec, 2014 [facility] [place] [facility] [address] [id number] [place] [address] Oct, [facility] [place] [facility] [address] [id number] [place] [address] Oct, [facility] [place] [facility] [address] [id number] [place] [address] Oct, [facility] [place] [facility] [id number] [place] [address] Oct, [facility] [place] [facility] [id number] [place] [address] Oct, [facility] [place] [facility] [address] [id number] [place] [address] Oct, [facility] [place] [facility] [id number] [place] [address] Oct, [facility] [place] [facility] [address] [id number] [place] [address] Sep, [facility] [place] [facility] [address] [id number] [place] [address] Sep, [facility] [place] [facility] [address] [id number] [place] [address] Sep, [facility] [place] [facility] [id number] [place] [address] Sep, [facility] [place] [facility] [address] [id number] [place] [address] Sep, [facility] [place] [facility] [id number] [place] [address] Sep, [facility] [place] [facility] [address] [id number] [place] [address] Sep, [facility] [place] [facility] [address] [id number] [place] [address] Sep, [facility] [place] [facility] [address] [id number] [place] [address] Aug, [facility] [place] [facility] [address] [id number] [place] [address] Aug, [facility] [place] [facility] [address] [facility] [id number] [place] [address] Aug, [facility] [place] [facility] [address] [id number] [place] [address] Aug, [facility] [place] [facility] [address] [id number] [place] [address] Jul, [facility] [place] [facility] [address] [id number] [place] [address] Jul, [facility] [place] [facility] [address] [id number] [place] [address] Jul, [facility] [place] [facility] [address] [id number] [place] [address] Jul, [facility] [place] [facility] [address] [id number] [place] [address] Jun, [facility] [place] [facility] [address] [id number] [place] [address] Jun, [facility] [place] [facility] [address] [id number] [place] [address] Jun, [facility] [place] [facility] [address] [id number] [place] [address] Jun, [facility] [place] [facility] [address] [id number] [place] [address] May, [facility] [place] [facility] [address] [id number] [place] [address] May, [facility] [place] [facility] [address] [id number] [facility] [place] [address] May, [facility] [place] [facility] [address] [facility] [id number] [facility] [place] [address] May, [facility] [place] [facility] [address] [facility] [id number] [facility] [place] [address] Apr, [facility] [place] [facility] [address] [id number] [facility] [place] [address] Apr, [facility] [place] [facility] [address] [id number] [place] [address] Apr, [facility] [place] [facility] [address] [facility] [id number] [facility] [place] [address] Apr, [facility] [place] [facility] [address] [id number] [facility] [place] [address] Apr, [facility] [place] [facility] [address] [id number] [facility] [place] [address] Apr, [facility] [place] [facility] [address] [id number] [facility] [place] [address] Apr, [facility] [place] [facility] [address] [id number] [facility] [place] [address] Apr, [facility] [place] [facility] [address] [id number] [facility] [place] [address] Apr, [facility] [place] [facility] [address] [id number] [place] [address] Apr, [facility] [place] [facility] [address] [id number] [place] [address] Apr, [facility] [place] [facility] [address] [id number] [facility] [place] [address] Apr, [facility] [place] [facility] [address] [id number] [place] [address] Apr, [facility] [place] [facility] [address] [id number] [place] [address] March, [facility] [address] [id number] [facility] [place] [address] March, [facility] [address] [id number] [place] [address] March, [facility] [address] [facility] [id number] [place] [address] March, [facility] [address] [id number] [place] [address] Jan, [facility] [address] [id number] [place] [address] Jan, [facility] [address] [id number] [place] [address] Jan, [facility] [address] [id number] [place] [address] Jan, [facility] [address] [id number] [place] [address] Jan, [facility] [address] [id number] [place] [address] Jan, [facility] [address] [id number] [place] [address] Dec, [facility] [address] [id number] [place] [address] Dec, [facility] [address] [id number] [place] [address] Dec, [facility] [address] [id number] [place] [address] Dec, [facility] [address] [id number] [place] [address] Nov, [facility] [address] [id number] [place] [address] Nov, [facility] [address] [id number] [place] [address] Nov, [facility] [address] [id number] [place] [address] Nov, [facility] [address] [id number] [place] [address] Oct, 2012 [facility] [address] [id number] [place] [address] Oct, 2012 [facility] [address] [id number] [place] [address] Oct, [facility] [address] [id number] [place] [address] Oct, [facility] [address] [id number] [place] [address] Oct, [facility] [address] [id number] [place] [address] Oct, [facility] [address] [id number] [place] [address] Oct, [facility] [address] [id number] [place] [address] Oct, [facility] [address] [id number] [place] [address] Sep, [facility] [address] [id number] [place] [address] Sep, [facility] [address] [id number] [place] [address] Jul, [facility] [address] [id number] [place] [address] Jul, [facility] [address] [id number] [place] [address] Jul, [facility] [address] [id number] [place] [address] Jul, [facility] [address] [id number] [place] [address] Jun, [facility] [address] [id number] [place] [address] Jun, [facility] [address] [id number] [place] [address] May, [facility] [address] [id number] [place] [address] Apr, [facility] [address] [id number] [place] [address] Apr, [facility] [address] [id number] [place] [address] Apr, [facility] [address] [id number] [place] [address] March, [facility] [address] [id number] [place] [address] March, [facility] [address] [id number] [place] [address] Feb, [facility] [address] [id number] [place] [address] Jan, [facility] [address] [id number] [place] [address] Jan, [facility] [address] [id number] [place] [address] Dec, [facility] [address] [id number] [place] [address] Dec, [facility] [address] [id number] [place] [address] Nov, [facility] [address] [id number] [place] [address] Nov, [facility] [address] [id number] [place] [address] Nov, [facility] [address] [id number] [place] [address] Oct, [facility] [address] [id number] [place] [address] Oct, [facility] [address] [id number] [place] [address] Oct, [facility] [address] [id number] [place] [address] Oct, [facility] [address] [id number] [place] [address] Sep, [facility] [address] [id number] [place] [address] Sep, [facility] [address] [id number] [place] [address] Sep, [facility] [address] [id number] [place] [address] Sep, [facility] [address] [id number] [place] [address] Sep, [facility] [address] [id number] [place] [address] Sep, [facility] [address] [id number] [place] [address] Aug, [facility] [id number] [place] [address] 26 Jul, 2012 [facility] [address] [id number] [place] [address] Jul, [facility] [address] [id number] [place] [address] 18 Jul, 2012 [facility] [address] [id number] [place] [address] 14 Jul, 2012 [facility] [address] [id number] [place] [address] Jun, [facility] [address] [id number] [place] [address] Jun, [facility] [address] [id number] [place] [address] Jun, [facility] [address] [id number] [place] [address] Jun, [facility] [address] [id number] [place] [address] May, [facility] [address] [id number] [place] [address] Apr, [facility] [address] [id number] [place] [address] March, [facility] [address] [id number] [place] [address] March, [facility] [address] [id number] [place] [address] March, [facility] [address] [id number] [place] [address] Feb, [facility] [address] [id number] [place] [address] Feb, [facility] [address] [id number] [place] [address] Jan, [facility] [address] [id number] [place] [address] Jan, [facility] [address] [id number] [place] [address] Jan, [facility] [address] [facility] [id number] [place] [address] Dec, [facility] [address] [id number] [place] [address] Dec, [facility] [address] [id number] [place] [address] Nov, [facility] [address] [id number] [place] [address] Nov, [facility] [address] [id number] [place] [address] Nov, [facility] [address] [facility] [id number] [place] [address] Nov, [facility] [address] [facility] [id number] [place] [address] Nov, [facility] [address] [facility] [id number] [place] [address] Oct, [facility] [address] [facility] [id number] [place] [address] Oct[facility] [place] [address] [id number] [place] [address] Oct, [facility] [place] [address] [id number] [place] [address] Oct, [facility] [place] [address] [id number] [place] [address] Sep, [facility] [place] [id number] [place] [address] Sep, [facility] [place] [address] [id number] [place] [address] Sep, [facility] [place] [address] [id number] [place] [address] Aug, [facility] [place] [address] [id number] [place] [address] Oct, [facility] [place] [id number] [place] [address] Oct, [facility] [place] [address] [id number] [place] [address] Oct, [facility] [place] [address] [id number] [place] [address] Oct, IMMUNIZATIONS No Known Immunizations SOCIAL HISTORY [...]
--- OUTSIDE RECORDS SUMMARY | 2020-04-25 14:50 | XMS REPORT ---
Author Author Ronna Blackmon Doctor Organization [facility] Address Unknown Phone Unavailable Care Team Providers Care Materials Technician Name Role Phone Migration, Doctor Unavailable Unavailable PROBLEMS Type Condition ICD9-CM Code CEX33-RC Code Onset Dates Condition S tatus SNOMED Code Problem Posttraumatic stress disorder F43.10 Active 54917780 Problem Bipolar disorder, unspecified F31.9 Active 71078681 Problem Attention deficit hyperactivity disorder (ADHD), combi dylon type F90.2 Active [id number] ALLERGIES No Information ENCOUNTERS Encounter Location Date Diagnosis [facility] [address] [address] Dec, OUTREACH [facility] [address] [id number] [address] Dec, [facility] [address] [id number] [place] [address] Nov, Post-nasal drip R09.82 [facility] [address] [address] Nov, Bipolar disorder, unspecified F31.9 [facility] [address] [address] Oct, [facility] [address] [address] Oct, Bipolar disorder, unspecified F31.9 [facility] [address] [address] Sep, Bipolar disorder, unspecified F31.9 ; At tention deficit hyperactivity disorder (ADHD), combined type F90.2 and Posttraumatic stress disorder F43.10 [facility] [address] [address] Sep, Bipolar disorder, unspecified F31.9 OUTREACH [facility] [address] [address] [id number] [place] [address] Sep, Dental examination Z01.20 an d Oral health maintenance status requiring routine preventive dental care K08.9 [facility] [address] [address] Aug, Bipolar disorder, unspecified F31.9 [facility] [address] [address] Jul, Bipolar disorder, unspecified F31.9 [facility] [address] [address] Jun, Bipolar disorder, unspecified F31.9 ; Po sttraumatic stress disorder F43.10 ; Attention deficit hyperactivity disorder (ADHD), combined type F90.2 and Other retirement (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 Z79.899 OUTREACH [facility] [address] [id number] [place] [address] May, Caries K02.9 OUTREACH [facility] [address] [id number] [place] [address] May, Caries K02.9 OUTREACH [facility] [address] [address] [id number] [place] [address] May, 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 requiring routine preventive dental care K08.9 [facility] [id number] [place] [address] Apr, Bipolar disorder, unspecified F31.9 [facility] [address] [address] Apr, [facility] [id number] [place] [address] Apr, Bipolar disorder, unspecified F31.9 [facility] [address] [address] Apr, Bipolar disorder, unspecified F31.9 [facility] [address] [address] Apr, [facility] [id number] [place] [address] March, Bipolar disorder, unspecified F31.9 ; At tention deficit hyperactivity disorder (ADHD), combined type F90.2 ; Posttraumatic stress disorder F43.10 and Other retirement (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 Z79.[address] [id number] [place] [address] March, Dental examination Z01.20 and Caries K02 .9 [facility] [address] [address] Feb, Bipolar disorder, unspecified F31.9 [facility] [address] [address] Jan, Oral health maintenance status requiring routine preventive dental care K08.9 ; Dental examination Z01.20 and Caries K02.9 [facility] [address] [id number] [place] [address] Jan, Bipolar disorder, unspecified F31.9 [facility] [address] [address] Dec, Bipolar disorder, unspecified F31.9 ; At tention deficit hyperactivity disorder (ADHD), combined type F90.2 and Posttraumatic stress disorder F43.10 [facility] [address] [facility] [id number] 100[place] [address] Oct, Sore throat J02.9 [facility] [id number] [place] [address] Oct, [facility] [address] [id number] [place] [address] Oct, Bipolar disorder, unspecified F31.9 [facility] [address] [facility]757[address] [place] [id number] Sep, Oral health maintenance status requiring routine preventive dental care K08.9 [facility] [address] [address] Sep, Bipolar disorder, unspecified F31.9 ; At tention deficit hyperactivity disorder (ADHD), combined type F90.2 and Posttraumatic stress disorder F43.10 [facility] [address] [facility] [id number] [address] [address] Aug, Lymphadenopathy of left cerv ical region R59.0 [facility] [address] [address] Aug, Encounter for immunization Z23 [facility] [address] [address] Aug, Other bonderizer (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 Z 79.899 [facility] [address] [address] Jul, Bipolar disorder, unspecified F31.9 [facility] [address] [address] Jun, Bipolar disorder, unspecified F31.9 [facility] [address] [address] Jun, [facility] [address] [address] Jun, Bipolar disorder, unspecified F31.9 ; At tention deficit hyperactivity disorder (ADHD), combined type F90.2 ; Posttraumatic stress disorder F43.10 and Other retirement (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 Z79.899 [facility] [address] [id number] [place] [id number] Jun, Dental examination Z01.20 [facility] [address] [address] May, [facility] [address] [address] Apr, Bipolar disorder, unspecified F31.9 [facility] [address] [address] March, Bipolar disorder, unspecified F31.9 ; At tention deficit hyperactivity disorder (ADHD), combined type F90.2 and Posttraumatic stress disorder F43.10 [facility] [address] [address] Feb, [facility] [address] [facility] [id number] [address] [address] Feb, Insect bite (nonvenomous), l eft knee, initial encounter S80.262A and Bitten or stung by nonvenomous insect and other nonvenomous arthropods, initial encounter W57.XXXA [facility] [address] [address] Feb, Bipolar disorder, unspecified F31.9 [facility] [address] [id number] Feb, Dental examination Z01.20 [facility] [address] [address] Feb, Bipolar disorder, unspecified F31.9 ; At tention deficit hyperactivity disorder (ADHD), combined type F90.2 and Posttraumatic stress disorder F43.10 [facility] [address] [id number] Feb, Dental examination Z01.20 [facility] [address] [address] Jan, Bipolar disorder, unspecified F31.9 [facility] [address] [address] Jan, Attention deficit hyperactivity disorder (ADHD), combined type F90.2 [facility] [address] [address] Dec, Posttraumatic stress disorder F43.10 [facility] [address] [address] Dec, Posttraumatic stress disorder F43.10 [facility] [address] [id number] Nov, Dental examination Z01.20 [facility] [address] [id number] Nov, 2017 Encounter for dental exam and cleaning w /o abnormal findings Z01.20 [facility] [address] [facility] [place] [id number] 03 Nov, 2017 Dental examination Z01.20 [facility] [address] [address] 08 Sep, 2017 Bipolar disorder, unspecified F31.9 ; Po sttraumatic stress disorder F43.10 and Attention deficit hyperactivity disorder (ADHD), combined type F90.2 [facility] [address] [address] 09 Aug, 2017 Posttraumatic stress disorder F43.10 [facility] [address] [address] 15 Jul, 2017 Other bonderizer (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 Z [address] [address] 11 Jul, 2017 Bipolar disorder, unspecified F31.9 ; At tention deficit hyperactivity disorder (ADHD), combined type F90.2 and Posttraumatic stress disorder F43.10 [facility] [address] [address] 09 Jun, 2017 Bipolar disorder, unspecified F31.9 ; Po sttraumatic stress disorder F43.10 ; Attention deficit hyperactivity disorder (ADHD), combined type F90.2 and Other bonderizer (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 Z79.899 [facility] [address] [address] 10 Mar, 2017 Bipolar disorder, unspecified F31.9 ; Po sttraumatic stress disorder F43.10 and Attention deficit hyperactivity disorder (ADHD), combined type F90.2 [facility] [address] [address] 08 Dec, 2016 Bipolar disorder, unspecified F31.9 ; Po sttraumatic stress disorder F43.10 and Attention deficit hyperactivity disorder (ADHD), combined type F90.2 [facility] [address] [address] Dec, [facility] [id number] [place] [address] Sep, [facility] [address] [address] Aug, Bipolar disorder, unspecified F31.9 ; sttraumatic stress disorder F43.10 and Attention deficit hyperactivity disorder (ADHD), combined type F90.2 [facility] [address] [address] Jun, [facility] [address] [address] March, [facility] [address] [address] Feb, Bipolar disorder, unspecified F31.9 ; At tention deficit hyperactivity disorder (ADHD), combined type F90.2 and Posttraumatic stress disorder F43.10 [facility] [address] [address] Feb, [facility] [id number] [place] [address] Feb, [facility] [address] [address] Feb, [facility] [id number] [place] [address] Jan, [facility] [id number] [place] [id number] Dec, Dental examination Z01.20 [facility] [id number] [place] [address] Sep, [facility] [address] [address] Sep, Attention deficit hyperactivity disorder (ADHD), combined type F90.2 ; Posttraumatic stress disorder F43.10 and Bipolar disorder, unspecified F31.9 [facility] [address] [address] Aug, [facility] [id number] [place] [address] Aug, [facility] [id number] [place] [address] Jul, [facility] [id number] [place] [address] May, Bipolar disorder, unspecified 296.80 ; A ttention deficit 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.00 and Posttraumatic stress disorder 309.81 [facility] [id number] [place] [address] May, [facility] [id number] [place] [address] May, [facility] [id number] [place] [address] May, [facility] [id number] [place] [address] Apr, [facility] [id number] [place] [address] Apr, [facility] [id number] [place] [address] Apr, [facility] [id number] [place] [address] March, [facility] [id number] [place] [address] March, [facility] [id number] [place] [address] March, [facility] [id number] [place] [address] Feb, [facility] [id number] [place] [address] Feb, [facility] [id number] [place] [address] Jan, [facility] [id number] [place] [address] 30 Jan, 2015 [facility] [address] [id number] [facility] [address] Jan, [facility] [address] [id number] [facility] [address] Jan, [facility] [address] [id number] [facility] [address] Jan, [facility] [address] [id number] [facility] [address] Jan, 2014 [facility] [address] [id number] [facility] [address] Jan, [facility] [address] [id number] [facility] [address] Jan, [facility] [address] [id number] [place] [address] Jan, [facility] [address] [id number] [place] [address] Jan, 2014 [facility] [address] [id number] [place] [address] Dec, 2014 [facility] [address] [id number] [place] [address] Dec, 2014 [facility] [address] [id number] [place] [address] Dec, 2014 [facility] [address] [id number] [place] [address] Dec, 2014 [facility] [address] [id number] [place] [address] Oct, [facility] [address] [id number] [place] [address] Oct, [facility] [address] [id number] [place] [address] Oct, [facility] [address] [id number] [place] [address] Oct, [facility] [address] [id number] [place] [address] Oct, [facility] [address] [id number] [place] [address] Oct, [facility] [address] [id number] [place] [address] Oct, [facility] [address] [id number] [place] [address] Sep, [facility] [address] [id number] [place] [address] Sep, [facility] [address] [id number] [place] [address] Sep, [facility] [address] [id number] [place] [address] Sep, [facility] [id number] [place] [address] Sep, [facility] [address] [id number] [place] [address] Sep, [facility] [address] [id number] [place] [address] Sep, [facility] [address] [id number] [place] [address] Sep, [facility] [address] [id number] [place] [address] Aug, [facility] [address] [id number] [place] [address] Aug, [facility] [address] [id number] [place] [address] Aug, [facility] [id number] [place] [address] Aug, [facility] [address] [id number] [place] [address] Jul, [facility] [address] [id number] [place] [address] Jul, [facility] [address] [id number] [place] [address] Jul, [facility] [address] [facility] [id number] [facility] [address] Jul, [facility] [address] [facility] [id number] [place] [address] Jun, [facility] [address] [facility] [id number] [facility] [address] Jun, [facility] [address] [facility] [id number] [place] [address] Jun, [facility] [address] [id number] [place] [address] Jun, [facility] [address] [id number] [place] [address] May, [facility] [address] [id number] [place] [address] May, [facility] [address] [id number] [place] [address] May, [facility] [address] [id number] [place] [address] May, [facility] [address] [id number] [place] [address] Apr, [facility] [address] [id number] [place] [address] Apr, [facility] [address] [facility] [id number] [place] [address] Apr, [facility] [address] [id number] [place] [address] Apr, [facility] [address] [id number] [place] [address] Apr, [facility] [address] [id number] [place] [address] Apr, [facility] [address] [id number] [facility] [address] Apr, [facility] [address] [facility] [id number] [facility] [address] Apr, [facility] [address] [facility] [id number] [facility] [address] Apr, [facility] [address] [id number] [facility] [address] Apr, [facility] [address] [facility] [id number] [facility] [address] Apr, [facility] [address] [facility] [id number] [facility] [address] Apr, [facility] [address] [id number] [place] [address] Apr, [facility] [address] [id number] [place] [address] March, [facility] [address] [id number] [place] [address] March, [facility] [address] [id number] [facility] [address] March, [facility] [address] [id number] [place] [address] March, [facility] [address] [id number] [place] [address] Jan, [facility] [address] [id number] [facility] [address] Jan, [facility] [address] [facility] [id number] [place] [address] Jan, [facility] [address] [id number] [place] [address] Jan, [facility] [address] [id number] [place] [address] Jan, [facility] [address] [id number] [place] [address] Jan, [facility] [address] [id number] [place] [address] Dec, [facility] [address] [id number] [place] [address] Dec, [facility] [address] [id number] [place] [address] Dec, [facility] [address] [id number] [place] [address] Dec, [facility] [address] [id number] [place] [address] Nov, [facility] [address] [id number] [place] [address] Nov, [facility] [address] [id number] [place] [address] Nov, [facility] [id number] [place] [address] Nov, [facility] [id number] [place] [address] Oct, [facility] [address] [id number] [place] [address] Oct, [facility] [id number] [place] [address] Oct, [facility] [id number] [place] [address] Oct, [facility] [address] [id number] [place] [address] Oct, [facility] [address] [id number] [place] [address] Oct, [facility] [id number] [place] [address] Oct, [facility] [address] [id number] [place] [address] Oct, [facility] [id number] [place] [address] Sep, [facility] [address] [id number] [place] [address] Sep, [facility] [address] [id number] [place] [address] Jul, [facility] [address] [id number] [place] [address] Jul, [facility] [address] [id number] [place] [address] Jul, [facility] [address] [id number] [place] [address] Jul, [facility] [address] [id number] [place] [address] Jun, [facility] [address] [id number] [place] [address] Jun, [facility] [address] [id number] [place] [address] May, [facility] [address] [id number] [place] [address] Apr, [facility] [address] [id number] [place] [address] Apr, [facility] [address] [id number] [place] [address] Apr, [facility] [address] [id number] [place] [address] March, [facility] [address] [id number] [place] [address] March, [facility] [address] [id number] [place] [address] Feb, [facility] [address] [id number] [place] [address] Jan, [facility] [address] [id number] [place] [address] Jan, [facility] [address] [id number] [place] [address] Dec, [facility] [address] [id number] [place] [address] Dec, [facility] [address] [id number] [place] [address] Nov, [facility] [id number] [place] [address] Nov, [facility] [id number] [place] [address] Nov, [facility] [address] [id number] [place] [address] Oct, [facility] [id number] [place] [address] Oct, [facility] [id number] [place] [address] Oct, [facility] [address] [id number] [place] [address] Oct, [facility] [id number] [place] [address] Sep, [facility] [id number] [place] [address] Sep, [facility] [id number] [place] [address] Sep, [facility] [id number] [place] [address] Sep, [facility] [id number] [place] [address] Sep, [facility] [id number] [place] [address] Sep, [facility] [address] [id number] [place] [address] Aug, [facility] [id number] [place] [address] Jul, [facility] [id number] [place] [address] 19 Jul, 2012 [facility] [address] [id number] [place] [address] 18 Jul, 2012 [facility] [address] [id number] [place] [address] Jul, [facility] [address] [id number] [place] [address] Jun, [facility] [address] [id number] [place] [address] Jun, [facility] [address] [id number] [place] [address] Jun, [facility] [address] [id number] [place] [address] Jun, [facility] [address] [id number] [place] [address] May, [facility] [address] [id number] [place] [address] Apr, [facility] [address] [id number] [place] [address] March, [facility] [address] [id number] [place] [address] March, [facility] [address] [id number] [place] [address] March, [facility] [address] [id number] [place] [address] Feb, [facility] [address] [id number] [place] [address] Feb, [facility] [address] [id number] [place] [address] Jan, [facility] [address] [id number] [place] [address] Jan, [facility] [address] [id number] [place] [address] Jan, [facility] [address] [id number] [place] [address] Dec, [facility] [address] [id number] [place] [address] Dec, [facility] [address] [id number] [place] [address] Nov, [facility] [address] [id number] [place] [address] Nov, [facility] [address] [id number] [place] [address] Nov, [facility] [address] [id number] [place] [address] Nov, [facility] [address] [id number] [place] [address] Nov, [facility] [address] [id number] [place] [address] Oct, [facility] [address] [id number] [place] [address] Oct, [facility] [id number] [place] [address] Oct, [facility] [address] [id number] [place] [address] Oct, [facility] [address] [id number] [place] [address] Sep, [facility] [address] [id number] [place] [address] Sep, [facility] [address] [id number] [place] [address] Sep, [facility] [address] [id number] [place] [address] Aug, [facility] [address] [id number] [place] [address] Oct, [facility] [address] [id number] [place] [address] Oct, [facility] [address] [id number] [place] [address] Oct, [facility] [address] [id number] [place] [address] Oct, IMMUNIZATIONS No Known Immunizations SOCIAL HISTORY [...]
--- OUTSIDE RECORDS SUMMARY | 2020-04-25 14:50 | XMS REPORT ---
Author Author Ronna Blackmon Doctor Organization [facility] Address Unknown Phone Unavailable Care Team Providers Care Curtain Feller Blindstitch Name Role Phone Migration, Doctor Unavailable Unavailable PROBLEMS Type Condition ICD9-CM Code [id number] Code Onset Dates Condition S tatus SNOMED Code Problem Posttraumatic stress disorder F43.10 Active 61581150 Problem Bipolar disorder, unspecified F31.9 Active 78575863 Problem Attention deficit hyperactivity disorder (ADHD), combi dylon type F90.2 Active [id number] ALLERGIES No Information ENCOUNTERS Encounter Location Date Diagnosis [facility] [id number] [place] [address] Jan, [facility] [address] [address] Dec, [facility] [address] [address] Dec, Bipolar disorder, unspecified F31.9 [facility] [id number] [place] [address] 17 Dec, 2019 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 requiring routine preventive dental care K08.9 [facility] [address] [address] 05 Dec, 2019 Bipolar disorder, unspecified F31.9 [facility] [address] [id number] [address] [address] Nov, Post-nasal drip R09.82 [facility] [address] [address] Nov, Bipolar disorder, unspecified F31.9 [facility] [address] [address] Oct, [facility] [address] [address] Oct, Bipolar disorder, unspecified F31.9 [facility] [address] [address] Sep, Bipolar disorder, unspecified F31.9 ; At tention deficit hyperactivity disorder (ADHD), combined type F90.2 and Posttraumatic stress disorder F43.10 [facility] [address] [address] Sep, Bipolar disorder, unspecified F31.9 [facility] [address] [address] [id number] [address] Sep, Dental examination Z01.20 an d Oral health maintenance status requiring routine preventive dental care K08.9 [facility] [address] [address] Aug, Bipolar disorder, unspecified F31.9 [facility] [address] [address] Jul, Bipolar disorder, unspecified F31.9 [facility] [address] [address] Jun, Bipolar disorder, unspecified F31.9 ; Po sttraumatic stress disorder F43.10 ; Attention deficit hyperactivity disorder (ADHD), combined type F90.2 and Other superintendent container terminal (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 Z79.899 OUT[facility]ACH [facility] [address] [id number] [place] [address] May, Caries K02.9 OUTREACH [facility] [address] [id number] [place] [address] May, Caries K02.9 [facility] [address] [address] [id number] [place] [address] May, 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 requiring routine preventive dental care K08.9 [facility] [address] [address] Apr, Bipolar disorder, unspecified F31.9 [facility] [address] [address] 13 Apr, 2019 [facility] [address] [address] Apr, Bipolar disorder, unspecified F31.9 [facility] [address] [address] Apr, Bipolar disorder, unspecified F31.9 [facility] [address] [address] Apr, [facility] [address] [address] March, Bipolar disorder, unspecified F31.9 ; At tention deficit hyperactivity disorder (ADHD), combined type F90.2 ; Posttraumatic stress disorder F43.10 and Other half-way (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 Z79.899 [facility] [id number] [address] March, Dental examination Z01.20 and Caries K02 .9 [facility] [address] [address] Feb, Bipolar disorder, unspecified F31.9 [address] [address] Jan, Oral health maintenance status requiring routine preventive dental care K08.9 ; Dental examination Z01.20 and Caries K02.9 [facility] [address] [address] Jan, Bipolar disorder, unspecified F31.9 [facility] [address] [address] Dec, Bipolar disorder, unspecified F31.9 ; At tention deficit hyperactivity disorder (ADHD), combined type F90.2 and Posttraumatic stress disorder F43.10 [facility] [address] [facility] [id number] [place] [address] Oct, Sore throat J02.9 [facility] [address] [address] Oct, [facility] [address] [address] Oct, Bipolar disorder, unspecified F31.9 [facility] [address] [id number] Sep, Oral health maintenance status requiring routine preventive dental care K08.9 [facility] [address] [address] Sep, Bipolar disorder, unspecified F31.9 ; At tention deficit hyperactivity disorder (ADHD), combined type F90.2 and Posttraumatic stress disorder F43.10 [facility] [address] [facility] [id number] [address] [address] Aug, Lymphadenopathy of left cerv ical region R59.0 [facility] [address] [address] Aug, Encounter for immunization Z23 [facility] [address] [address] Aug, Other superintendent container terminal (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 Z 79.899 [facility] [address] [address] Jul, Bipolar disorder, unspecified F31.9 [facility] [address] [address] Jun, Bipolar disorder, unspecified F31.9 [facility] [address] [address] Jun, [facility] [address] [address] Jun, Bipolar disorder, unspecified F31.9 ; At tention deficit hyperactivity disorder (ADHD), combined type F90.2 ; Posttraumatic stress disorder F43.10 and Other half-way (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 Z79.899 [facility] [address] [id number] Jun, 2018 Dental examination Z01.20 [facility] [address] [address] May, [facility] [address] [address] Apr, Bipolar disorder, unspecified F31.9 [facility] [address] [address] March, Bipolar disorder, unspecified F31.9 ; At tention deficit hyperactivity disorder (ADHD), combined type F90.2 and Posttraumatic stress disorder F43.10 [facility] [address] [address] Feb, [facility] [address] [facility] [id number] [place] [address] Feb, Insect bite (nonvenomous), l eft knee, initial encounter S80.262A and Bitten or stung by nonvenomous insect and other nonvenomous arthropods, initial encounter W57.XXXA [facility] [address] [address] Feb, Bipolar disorder, unspecified F31.9 [facility] [address] [id number] Feb, Dental examination Z01.20 [facility] [address] [address] Feb, Bipolar disorder, unspecified F31.9 ; At tention deficit hyperactivity disorder (ADHD), combined type F90.2 and Posttraumatic stress disorder F43.10 [facility] [address] [id number] Feb, Dental examination Z01.20 [facility] [address] [address] Jan, Bipolar disorder, unspecified F31.9 [facility] [address] [address] Jan, Attention deficit hyperactivity disorder (ADHD), combined type F90.2 [facility] [address] [address] Dec, Posttraumatic stress disorder F43.10 [facility] [address] [address] 12 Dec, 2017 Posttraumatic stress disorder F43.10 [facility] [address] [id number] Nov, Dental examination Z01.20 [facility] [address] [id number] Nov, Encounter for dental exam and cleaning w /o abnormal findings Z01.20 [facility] [address] [id number] Nov, Dental examination Z01.20 [facility] [address] [address] Sep, Bipolar disorder, unspecified F31.9 ; Po sttraumatic stress disorder F43.10 and Attention deficit hyperactivity disorder (ADHD), combined type F90.2 [facility] [address] [address] Aug, Posttraumatic stress disorder F43.10 [facility] [address] [address] 15 Jul, 2017 Other half-way (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 Z 79.899 [facility] [address] [address] Jul, Bipolar disorder, unspecified F31.9 ; At tention deficit hyperactivity disorder (ADHD), combined type F90.2 and Posttraumatic stress disorder F43.10 [facility] [address] [address] Jun, Bipolar disorder, unspecified F31.9 ; Po sttraumatic stress disorder F43.10 ; Attention deficit hyperactivity disorder (ADHD), combined type F90.2 and Other half-way (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 Z79.899 [facility] [address] [address] March, Bipolar disorder, unspecified F31.9 ; Po sttraumatic stress disorder F43.10 and Attention deficit hyperactivity disorder (ADHD), combined type F90.2 [facility] [address] [address] Dec, Bipolar disorder, unspecified F31.9 ; Po sttraumatic stress disorder F43.10 and Attention deficit hyperactivity disorder (ADHD), combined type F90.2 [facility] [address] [address] Dec, [facility] [address] [address] Sep, [facility] [address] [address] Aug, Bipolar disorder, unspecified F31.9 ; Po sttraumatic stress disorder F43.10 and Attention deficit hyperactivity disorder (ADHD), combined type F90.2 [facility] [address] [address] Jun, [facility] [address] [address] March, [facility] [address] [address] Feb, Bipolar disorder, unspecified F31.9 ; At tention deficit hyperactivity disorder (ADHD), combined type F90.2 and Posttraumatic stress disorder F43.10 [facility] [address] [address] Feb, [facility] [address] [address] Feb, [facility] [address] [address] Feb, [facility] [address] [address] Jan, [facility] [address] [id number] [place] [id number] Dec, Dental examination Z01.20 [facility] [id number] [place] [address] Sep, [facility] [address] [address] Sep, Attention deficit hyperactivity disorder (ADHD), combined type F90.2 ; Posttraumatic stress disorder F43.10 and Bipolar disorder, unspecified F31.9 [facility] [address] [address] Aug, [facility] [address] [address] Aug, [facility] [address] [address] Jul, [facility] [address] [address] May, Bipolar disorder, unspecified 296.80 ; A ttention deficit 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.00 and Posttraumatic stress disorder 309.81 [facility] [address] [address] May, [facility] [address] [address] May, [facility] [address] [address] May, [facility] [address] [address] Apr, [facility] [address] [address] Apr, [facility] [address] [address] Apr, [facility] [address] [address] March, [facility] [address] [address] March, [facility] [address] [place] [address] March, [facility] [address] [id number] [place] [address] Feb, [facility] [address] [id number] [place] [address] Feb, [facility] [address] [id number] [place] [address] Jan, [facility] [address] [id number] [place] [address] Jan, [facility] [address] [id number] [place] [address] Jan, [facility] [address] [id number] [place] [address] Jan, [facility] [address] [id number] [place] [address] Jan, [facility] [address] [id number] [place] [address] Jan, [facility] [address] [id number] [place] [address] Jan, [facility] [address] [id number] [place] [address] Jan, [facility] [address] [id number] [place] [address] Jan, [facility] [address] [id number] [place] [address] Jan, [facility] [address] [id number] [place] [address] Dec, [facility] [address] [id number] [place] [address] Dec, [facility] [address] [id number] [place] [address] Dec, [facility] [address] [id number] [place] [address] Dec, [facility] [address] [id number] [place] [address] Oct, [facility] [address] [id number] [place] [address] Oct, [facility] [address] [id number] [place] [address] Oct, [facility] [address] [id number] [place] [address] Oct, [facility] [address] [id number] [place] [address] Oct, [facility] [address] [id number] [place] [address] Oct, [facility] [address] [id number] [place] [address] Oct, [facility] [id number] [place] [address] Sep, [facility] [address] [id number] [place] [address] Sep, [facility] [address] [id number] [place] [address] Sep, [facility] [address] [id number] [place] [address] Sep, [facility] [address] [id number] [place] [address] Sep, [facility] [address] [id number] [place] [address] Sep, [facility] [address] [id number] [place] [address] Sep, [facility] [address] [id number] [place] [address] Sep, [facility] [address] [id number] [place] [address] Aug, [facility] [address] [id number] [place] [address] Aug, [facility] [address] [facility] [id number] [place] [address] Aug, [facility] [address] [facility] [id number] [place] [address] Aug, [facility] [address] [id number] [place] [address] Jul, [facility] [address] [facility] [id number] [place] [address] Jul, [facility] [address] [facility] [id number] [place] [address] Jul, [facility] [address] [id number] [place] [address] Jul, [facility] [address] [id number] [place] [address] Jun, [facility] [address] [id number] [place] [address] Jun, [facility] [address] [id number] [place] [address] Jun, [facility] [address] [id number] [place] [address] Jun, [facility] [address] [id number] [place] [address] May, [facility] [address] [id number] [place] [address] May, [facility] [address] [id number] [place] [address] May, [facility] [address] [id number] [place] [address] May, [facility] [address] [id number] [place] [address] Apr, [facility] [address] [id number] [place] [address] Apr, [facility] [address] [id number] [place] [address] Apr, [facility] [address] [facility] [id number] [place] [address] Apr, [facility] [address] [facility] [id number] [place] [address] Apr, [facility] [address] [id number] [place] [address] Apr, [facility] [address] [id number] [place] [address] Apr, [facility] [address] [facility] [id number] [place] [address] Apr, [facility] [address] [id number] [place] [address] Apr, [facility] [address] [id number] [place] [address] Apr, [facility] [address] [id number] [place] [address] Apr, [facility] [address] [id number] [place] [address] Apr, [facility] [address] [id number] [place] [address] Apr, [facility] [address] [id number] [place] [address] March, [facility] [address] [id number] [place] [address] March, [facility] [address] [id number] [place] [address] March, [facility] [address] [id number] [place] [address] March, [facility] [address] [id number] [place] [address] Jan, [facility] [address] [id number] [place] [address] Jan, [facility] [address] [id number] [place] [address] Jan, [facility] [address] [id number] [place] [address] Jan, [facility] [address] [id number] [place] [address] Jan, [facility] [address] [id number] [place] [address] Jan, [facility] [address] [id number] [place] [address] Dec, [facility] [address] [id number] [place] [address] Dec, [facility] [address] [id number] [place] [address] Dec, [facility] [address] [id number] [place] [address] Dec, [facility] [address] [id number] [place] [address] Nov, [facility] [address] [id number] [place] [address] Nov, [facility] [address] [id number] [place] [address] Nov, [facility] [address] [id number] [place] [address] Nov, [facility] [address] [id number] [place] [address] Oct, [facility] [address] [id number] [place] [address] Oct, [facility] [address] [id number] [place] [address] Oct, [facility] [address] [id number] [place] [address] Oct, [facility] [address] [id number] [place] [address] Oct, [facility] [address] [id number] [place] [address] Oct, [facility] [address] [id number] [place] [address] Oct, [facility] [address] [id number] [place] [address] Oct, [facility] [address] [id number] [place] [address] Sep, [facility] [address] [id number] [place] [address] Sep, [facility] [address] [id number] [place] [address] Jul, [facility] [address] [id number] [place] [address] Jul, [facility] [address] [id number] [place] [address] Jul, [facility] [address] [id number] [place] [address] Jul, [facility] [address] [id number] [place] [address] Jun, [facility] [address] [id number] [place] [address] Jun, [facility] [address] [id number] [place] [address] May, [facility] [address] [id number] [place] [address] Apr, [facility] [address] [id number] [place] [address] Apr, [facility] [address] [id number] [place] [address] Apr, [facility] [address] [id number] [place] [address] March, [facility] [address] [id number] [place] [address] March, [facility] [address] [id number] [place] [address] Feb, [facility] [address] [id number] [place] [address] Jan, [facility] [address] [id number] [place] [address] Jan, [facility] [address] [id number] [place] [address] Dec, [facility] [address] [id number] [place] [address] Dec, [facility] [address] [id number] [place] [address] Nov, [facility] [id number] [place] [address] Nov, [facility] [address] [id number] [place] [address] Nov, [facility] [address] [id number] [place] [address] Oct, [facility] [address] [id number] [place] [address] Oct, [facility] [id number] [place] [address] Oct, [facility] [address] [id number] [place] [address] Oct, [facility] [address] [id number] [place] [address] Sep, [facility] [id number] [place] [address] Sep, [facility] [address] [id number] [place] [address] Sep, [facility] [id number] [place] [address] Sep, [facility] [address] [id number] [place] [address] Sep, [facility] [address] [id number] [place] [address] Sep, [facility] [address] [id number] [place] [address] Aug, [facility] [address] [id number] [place] [address] Jul, [facility] [address] [id number] [place] [address] Jul, [facility] [address] [id number] [place] [address] Jul, [facility] [address] [facility] [id number] [place] [address] Jul[facility] [address] [id number] [place] [address] Jun, [facility] [address] [id number] [place] [address] Jun, [facility] [address] [id number] [place] [address] Jun, [facility] [address] [id number] [place] [address] Jun, [facility] [address] [id number] [place] [address] May, [facility] [address] [id number] [place] [address] Apr, [facility] [address] [id number] [place] [address] March, [facility] [address] [id number] [place] [address] March, [facility] [address] [id number] [place] [address] March, [facility] [address] [id number] [place] [address] Feb, [facility] [address] [id number] [place] [address] Feb, [facility] [address] [id number] [place] [address] Jan, [facility] [address] [id number] [place] [address] Jan, [facility] [address] [id number] [place] [address] Jan, [facility] [address] [id number] [place] [address] Dec, [facility] [address] [id number] [place] [address] Dec, [facility] [address] [id number] [place] [address] Nov, [facility] [address] [id number] [place] [address] Nov, [facility] [address] [id number] [place] [address] Nov, [facility] [address] [id number] [place] [address] Nov, [facility] [address] [id number] [place] [address] Nov, [facility] [address] [id number] [place] [address] Oct, [facility] [address] [id number] [place] [address] Oct, [facility] [address] [id number] [place] [address] Oct, [facility] [address] [id number] [place] [address] Oct, [facility] [address] [id number] [place] [address] Sep, [facility] [address] [id number] [place] [address] Sep, [facility] [address] [id number] [place] [address] Sep, [facility] [address] [id number] [place] [address] Aug, [facility] [address] [id number] [place] [address] Oct, [facility] [id number] [place] [address] Oct, [facility] [address] [id number] [place] [address] Oct, [facility] [address] [id number] [place] [address] Oct, IMMUNIZATIONS No Known Immunizations SOCIAL HISTORY [...]
--- OUTSIDE RECORDS SUMMARY | 2020-04-25 14:50 | XMS REPORT ---
Author Author Ronna Blackmon Doctor Organization [facility] Address Unknown Phone Unavailable Care Team Providers Care Medical Health Researcher Name Role Phone Migration, Doctor Unavailable Unavailable PROBLEMS Type Condition ICD9-CM Code URV14-RU Code Onset Dates Condition S tatus SNOMED Code Problem Posttraumatic stress disorder F43.10 Active 83742203 Problem Bipolar disorder, unspecified F31.9 Active 07226369 Problem Attention deficit hyperactivity disorder (ADHD), combi dylon type F90.2 Active [id number] ALLERGIES No Information ENCOUNTERS Encounter Location Date Diagnosis [facility] [address] [address] Dec, OUTREACH [facility] [address] [id number] [address] Dec, [facility] [address] [id number] [place] [address] Nov, Post-nasal drip R09.82 [facility] [address] [address] Nov, Bipolar disorder, unspecified F31.9 [facility] [address] [address] Oct, [facility] [address] [address] Oct, Bipolar disorder, unspecified F31.9 [facility] [address] [address] Sep, Bipolar disorder, unspecified F31.9 ; At tention deficit hyperactivity disorder (ADHD), combined type F90.2 and Posttraumatic stress disorder F43.10 [facility] [address] [address] Sep, Bipolar disorder, unspecified F31.9 OUTREACH [facility] [address] [address] [id number] [place] [address] Sep, Dental examination Z01.20 an d Oral health maintenance status requiring routine preventive dental care K08.9 [facility] [address] [address] Aug, Bipolar disorder, unspecified F31.9 [facility] [address] [address] Jul, Bipolar disorder, unspecified F31.9 [facility] [address] [address] Jun, Bipolar disorder, unspecified F31.9 ; Po sttraumatic stress disorder F43.10 ; Attention deficit hyperactivity disorder (ADHD), combined type F90.2 and Other assisted (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 Z79.899 OUTREACH [facility] [address] [id number] [place] [address] May, Caries K02.9 OUTREACH [facility] [address] [id number] [place] [address] May, Caries K02.9 OUTREACH [facility] [address] [address] [id number] [place] [address] May, 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 requiring routine preventive dental care K08.9 [facility] [id number] [place] [address] Apr, Bipolar disorder, unspecified F31.9 [facility] [address] [address] Apr, [facility] [id number] [place] [address] Apr, Bipolar disorder, unspecified F31.9 [facility] [address] [address] Apr, Bipolar disorder, unspecified F31.9 [facility] [address] [address] Apr, [facility] [id number] [place] [address] March, Bipolar disorder, unspecified F31.9 ; At tention deficit hyperactivity disorder (ADHD), combined type F90.2 ; Posttraumatic stress disorder F43.10 and Other assisted (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 Z79.[address] [id number] [place] [address] March, Dental examination Z01.20 and Caries K02 .9 [facility] [address] [address] Feb, Bipolar disorder, unspecified F31.9 [facility] [address] [address] Jan, Oral health maintenance status requiring routine preventive dental care K08.9 ; Dental examination Z01.20 and Caries K02.9 [facility] [address] [id number] [place] [address] Jan, Bipolar disorder, unspecified F31.9 [facility] [address] [address] Dec, Bipolar disorder, unspecified F31.9 ; At tention deficit hyperactivity disorder (ADHD), combined type F90.2 and Posttraumatic stress disorder F43.10 [facility] [address] [facility] [id number] 100[place] [address] Oct, Sore throat J02.9 [facility] [id number] [place] [address] Oct, [facility] [address] [id number] [place] [address] Oct, Bipolar disorder, unspecified F31.9 [facility] [address] [facility] [place] [id number] Sep, Oral health maintenance status requiring routine preventive dental care K08.9 [facility] [address] [address] Sep, Bipolar disorder, unspecified F31.9 ; At tention deficit hyperactivity disorder (ADHD), combined type F90.2 and Posttraumatic stress disorder F43.10 [facility] [address] [facility] [id number] [address] [address] Aug, Lymphadenopathy of left cerv ical region R59.0 [facility] [address] [address] Aug, Encounter for immunization Z23 [facility] [address] [address] Aug, 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.899 [facility] [address] [address] Jul, Bipolar disorder, unspecified F31.9 [facility] [address] [address] Jun, Bipolar disorder, unspecified F31.9 [facility] [address] [address] Jun, [facility] [address] [address] Jun, Bipolar disorder, unspecified F31.9 ; At tention deficit hyperactivity disorder (ADHD), combined type F90.2 ; Posttraumatic stress disorder F43.10 and Other assisted (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 Z79.899 [facility] [address] [id number] [place] [id number] Jun, Dental examination Z01.20 [facility] [address] [address] May, [facility] [address] [address] Apr, Bipolar disorder, unspecified F31.9 [facility] [address] [address] March, Bipolar disorder, unspecified F31.9 ; At tention deficit hyperactivity disorder (ADHD), combined type F90.2 and Posttraumatic stress disorder F43.10 [facility] [address] [address] Feb, [facility] [address] [facility] [id number] [address] [address] Feb, Insect bite (nonvenomous), l eft knee, initial encounter S80.262A and Bitten or stung by nonvenomous insect and other nonvenomous arthropods, initial encounter W57.XXXA [facility] [address] [address] Feb, Bipolar disorder, unspecified F31.9 [facility] [address] [id number] Feb, Dental examination Z01.20 [facility] [address] [address] Feb, Bipolar disorder, unspecified F31.9 ; At tention deficit hyperactivity disorder (ADHD), combined type F90.2 and Posttraumatic stress disorder F43.10 [facility] [address] [id number] Feb, Dental examination Z01.20 [facility] [address] [address] Jan, Bipolar disorder, unspecified F31.9 [facility] [address] [address] Jan, Attention deficit hyperactivity disorder (ADHD), combined type F90.2 [facility] [address] [address] Dec, Posttraumatic stress disorder F43.10 [facility] [address] [address] Dec, Posttraumatic stress disorder F43.10 [facility] [address] [id number] Nov, Dental examination Z01.20 [facility] [address] [id number] Nov, 2017 Encounter for dental exam and cleaning w /o abnormal findings Z01.20 [facility] [address] 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.[address] [address] 11 Jul, 2017 Bipolar disorder, unspecified F31.9 ; At tention deficit hyperactivity disorder (ADHD), combined type F90.2 and Posttraumatic stress disorder F43.10 [facility] [address] [address] 09 Jun, 2017 Bipolar disorder, unspecified F31.9 ; Po sttraumatic stress disorder F43.10 ; Attention deficit hyperactivity disorder (ADHD), combined type F90.2 and 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 [facility] [address] [address] 10 Mar, 2017 Bipolar disorder, unspecified F31.9 ; Po sttraumatic stress disorder F43.10 and Attention deficit hyperactivity disorder (ADHD), combined type F90.2 [facility] [address] [address] 08 Dec, 2016 Bipolar disorder, unspecified F31.9 ; Po sttraumatic stress disorder F43.10 and Attention deficit hyperactivity disorder (ADHD), combined type F90.2 [facility] [address] [address] Dec, [facility] [address] [id number] [place] [address] Sep, [facility] [address] [address] Aug, Bipolar disorder, unspecified F31.9 ; sttraumatic stress disorder F43.10 and Attention deficit hyperactivity disorder (ADHD), combined type F90.2 [facility] [address] [address] Jun, [facility] [address] [address] March, [facility] [address] [address] Feb, Bipolar disorder, unspecified F31.9 ; At tention deficit hyperactivity disorder (ADHD), combined type F90.2 and Posttraumatic stress disorder F43.10 [facility] [address] [address] Feb, [facility] [id number] [place] [address] Feb, [facility] [address] [address] Feb, [facility] [address] [id number] [place] [address] Jan, [facility] [address] [id number] [place] [id number] Dec, Dental examination Z01.20 [facility] [address] [id number] [place] [address] Sep, [facility] [address] [address] Sep, Attention deficit hyperactivity disorder (ADHD), combined type F90.2 ; Posttraumatic stress disorder F43.10 and Bipolar disorder, unspecified F31.9 [facility] [address] [address] Aug, [facility] [address] [id number] [place] [address] Aug, [facility] [address] [id number] [place] [address] Jul, [facility] [address] [id number] [place] [address] May, Bipolar disorder, unspecified 296.80 ; A ttention deficit 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.00 and Posttraumatic stress disorder 309.81 [facility] [address] [id number] [place] [address] May, [facility] [address] [id number] [place] [address] May, [facility] [address] [id number] [place] [address] May, [facility] [address] [id number] [place] [address] Apr, [facility] [address] [id number] [place] [address] Apr, [facility] [id number] [place] [address] Apr, [facility] [address] [id number] [place] [address] March, [facility] [address] [id number] [place] [address] March, [facility] [address] [id number] [place] [address] March, [facility] [address] [id number] [place] [address] Feb, [facility] [address] [id number] [place] [address] Feb, [facility] [address] [id number] [place] [address] Jan, [facility] [address] [id number] [place] [address] 30 Jan, 2015 [facility] [id number] [facility] [place] [address] Jan, [facility] [id number] [facility] [place] [address] Jan, [facility] [id number] [facility] [place] [address] Jan, [facility] [id number] [facility] [place] [address] Jan, 2014 [facility] [id number] [facility] [place] [address] Jan, [facility] [id number] [facility] [place] [address] Jan, [facility] [id number] [place] [address] Jan, [facility] [id number] [place] [address] Jan, 2014 [facility] [id number] [place] [address] Dec, 2014 [facility] [id number] [place] [address] Dec, 2014 [facility] [id number] [place] [address] Dec, 2014 [facility] [id number] [place] [address] Dec, 2014 [facility] [id number] [place] [address] Oct, [facility] [id number] [place] [address] Oct, [facility] [id number] [place] [address] Oct, [facility] [id number] [place] [address] Oct, [facility] [id number] [place] [address] Oct, [facility] [id number] [place] [address] Oct, [facility] [id number] [place] [address] Oct, [facility] [id number] [place] [address] Sep, [facility] [id number] [place] [address] Sep, [facility] [id number] [place] [address] Sep, [facility] [id number] [place] [address] Sep, [facility] [id number] [place] [address] Sep, [facility] [id number] [place] [address] Sep, [facility] [id number] [place] [address] Sep, [facility] [id number] [place] [address] Sep, [facility] [id number] [place] [address] Aug, [facility] [id number] [place] [address] Aug, [facility] [id number] [place] [address] Aug, [facility] [id number] [place] [address] Aug, [facility] [id number] [place] [address] Jul, [facility] [id number] [place] [address] Jul, [facility] [address] [id number] [place] [address] Jul, [facility] [address] [facility] [id number] [facility] [place] [address] Jul, [facility] [address] [facility] [id number] [place] [address] Jun, [facility] [address] [facility] [id number] [facility] [place] [address] Jun, [facility] [address] [facility] [id number] [place] [address] Jun, [facility] [id number] [place] [address] Jun, [facility] [id number] [place] [address] May, [facility] [id number] [place] [address] May, [facility] [id number] [place] [address] May, [facility] [id number] [place] [address] May, [facility] [id number] [place] [address] Apr, [facility] [id number] [place] [address] Apr, [facility] [address] [facility] [id number] [place] [address] Apr, [facility] [id number] [place] [address] Apr, [facility] [id number] [place] [address] Apr, [facility] [id number] [place] [address] Apr, [facility] [id number] [facility] [place] [address] Apr, [facility] [address] [facility] [id number] [facility] [place] [address] Apr, [facility] [address] [facility] [id number] [facility] [place] [address] Apr, [facility] [id number] [facility] [place] [address] Apr, [facility] [address] [facility] [id number] [facility] [place] [address] Apr, [facility] [address] [facility] [id number] [facility] [place] [address] Apr, [facility] [id number] [place] [address] Apr, [facility] [id number] [place] [address] March, [facility] [id number] [place] [address] March, [facility] [id number] [facility] [place] [address] March, [facility] [id number] [place] [address] March, [facility] [id number] [place] [address] Jan, [facility] [id number] [facility] [place] [address] Jan, [facility] [address] [facility] [id number] [place] [address] Jan, [facility] [id number] [place] [address] Jan, [facility] [id number] [place] [address] Jan, [facility] [id number] [place] [address] Jan, [facility] [id number] [place] [address] Dec, [facility] [id number] [place] [address] Dec, [facility] [id number] [place] [address] Dec, [facility] [id number] [place] [address] Dec, [facility] [id number] [place] [address] Nov, [facility] [id number] [place] [address] Nov, [facility] [id number] [place] [address] Nov, [facility] [id number] [place] [address] Nov, [facility] [id number] [place] [address] Oct, [facility] [address] [id number] [place] [address] Oct, [facility] [id number] [place] [address] Oct, [facility] [id number] [place] [address] Oct, [facility] [id number] [place] [address] Oct, [facility] [id number] [place] [address] Oct, [facility] [id number] [place] [address] Oct, [facility] [id number] [place] [address] Oct, [facility] [id number] [place] [address] Sep, [facility] [id number] [place] [address] Sep, [facility] [id number] [place] [address] Jul, [facility] [id number] [place] [address] Jul, [facility] [id number] [place] [address] Jul, [facility] [id number] [place] [address] Jul, [facility] [id number] [place] [address] Jun, [facility] [id number] [place] [address] Jun, [facility] [id number] [place] [address] May, [facility] [id number] [place] [address] Apr, [facility] [id number] [place] [address] Apr, [facility] [id number] [place] [address] Apr, [facility] [id number] [place] [address] March, [facility] [id number] [place] [address] March, [facility] [id number] [place] [address] Feb, [facility] [id number] [place] [address] Jan, [facility] [id number] [place] [address] Jan, [facility] [id number] [place] [address] Dec, [facility] [id number] [place] [address] Dec, [facility] [id number] [place] [address] Nov, [facility] [id number] [place] [address] Nov, [facility] [id number] [place] [address] Nov, [facility] [id number] [place] [address] Oct, [facility] [id number] [place] [address] Oct, [facility] [id number] [place] [address] Oct, [facility] [id number] [place] [address] Oct, [facility] [id number] [place] [address] Sep, [facility] [id number] [place] [address] Sep, [facility] [id number] [place] [address] Sep, [facility] [id number] [place] [address] Sep, [facility] [id number] [place] [address] Sep, [facility] [id number] [place] [address] Sep, [facility] [id number] [place] [address] Aug, [facility] [id number] [place] [address] Jul, [facility] [id number] [place] [address] 19 Jul, 2012 [facility] [id number] [place] [address] 18 Jul, 2012 [facility] [id number] [place] [address] Jul, [facility] [id number] [place] [address] Jun, [facility] [id number] [place] [address] Jun, [facility] [id number] [place] [address] Jun, [facility] [id number] [place] [address] Jun, [facility] [id number] [place] [address] May, [facility] [id number] [place] [address] Apr, [facility] [id number] [place] [address] March, [facility] [id number] [place] [address] March, [facility] [id number] [place] [address] March, [facility] [id number] [place] [address] Feb, [facility] [id number] [place] [address] Feb, [facility] [id number] [place] [address] Jan, [facility] [id number] [place] [address] Jan, [facility] [id number] [place] [address] Jan, [facility] [id number] [place] [address] Dec, [facility] [id number] [place] [address] Dec, [facility] [id number] [place] [address] Nov, [facility] [id number] [place] [address] Nov, [facility] [id number] [place] [address] Nov, [facility] [id number] [place] [address] Nov, [facility] [id number] [place] [address] Nov, [facility] [id number] [place] [address] Oct, [facility] [id number] [place] [address] Oct, [facility] [id number] [place] [address] Oct, [facility] [id number] [place] [address] Oct, [facility] [id number] [place] [address] Sep, [facility] [id number] [place] [address] Sep, [facility] [id number] [place] [address] Sep, [facility] [id number] [place] [address] Aug, [facility] [id number] [place] [address] Oct, [facility] [id number] [place] [address] Oct, [facility] [id number] [place] [address] Oct, [facility] [id number] [place] [address] Oct, IMMUNIZATIONS No Known Immunizations SOCIAL HISTORY [...]
--- OUTSIDE RECORDS SUMMARY | 2020-04-25 14:50 | XMS REPORT ---
Author Author Ronna Blackmon Doctor Organization [facility] Address Unknown Phone Unavailable Care Team Providers Care Water Sander Name Role Phone Migration, Doctor Unavailable Unavailable PROBLEMS Type Condition ICD9-CM Code GET77-BD Code Onset Dates Condition S tatus SNOMED Code Problem Posttraumatic stress disorder F43.10 Active 20914148 Problem Bipolar disorder, unspecified F31.9 Active [id number] Problem Attention deficit hyperactivity disorder (ADHD), combi dylon type F90.2 Active [id number] ALLERGIES No Information ENCOUNTERS Encounter Location Date Diagnosis [facility] [address] [address] Dec, OUTREACH [facility] [address] [id number] [address] Dec, [facility] [address] [id number] [place] [address] Nov, Post-nasal drip R09.82 [facility] [address] [address] Nov, Bipolar disorder, unspecified F31.9 [facility] [address] [address] Oct, [facility] [address] [address] Oct, Bipolar disorder, unspecified F31.9 [facility] [address] [address] Sep, Bipolar disorder, unspecified F31.9 ; At tention deficit hyperactivity disorder (ADHD), combined type F90.2 and Posttraumatic stress disorder F43.10 [facility] [address] [address] Sep, Bipolar disorder, unspecified F31.9 OUTREACH [facility] [address] [address] [id number] [place] [address] Sep, Dental examination Z01.20 an d Oral health maintenance status requiring routine preventive dental care K08.9 [facility] [address] [address] Aug, Bipolar disorder, unspecified F31.9 [facility] [address] [address] Jul, Bipolar disorder, unspecified F31.9 [facility] [address] [address] Jun, Bipolar disorder, unspecified F31.9 ; Po sttraumatic stress disorder F43.10 ; Attention deficit hyperactivity disorder (ADHD), combined type F90.2 and Other assisted (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 Z79.899 OUTREACH [facility] [address] [id number] [place] [address] May, Caries K02.9 OUTREACH [facility] [address] [id number] [place] [address] May, Caries K02.9 OUTRE[address] [facility] [address] [address] [id number] [place] [address] May, 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 requiring routine preventive dental care K08.9 [facility] [id number] [place] [address] Apr, Bipolar disorder, unspecified F31.9 [facility] [address] [address] Apr, [facility] [id number] [place] [address] Apr, Bipolar disorder, unspecified F31.9 [facility] [address] [address] Apr, Bipolar disorder, unspecified F31.9 [facility] [address] [address] Apr, [facility] [address] [id number] [place] [address] March, Bipolar disorder, unspecified F31.9 ; At tention deficit hyperactivity disorder (ADHD), combined type F90.2 ; Posttraumatic stress disorder F43.10 and Other assisted (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 Z79.[address] [id number] [place] [address] March, Dental examination Z01.20 and Caries K02 .9 [facility] [address] [address] Feb, Bipolar disorder, unspecified F31.9 [facility] [address] [address] Jan, Oral health maintenance status requiring routine preventive dental care K08.9 ; Dental examination Z01.20 and Caries K02.9 [facility] [address] [id number] [place] [address] Jan, Bipolar disorder, unspecified F31.9 [facility] [address] [address] Dec, Bipolar disorder, unspecified F31.9 ; At tention deficit hyperactivity disorder (ADHD), combined type F90.2 and Posttraumatic stress disorder F43.10 [facility] [address] [facility] [id number] 100[place] [address] Oct, Sore throat J02.9 [facility] [address] [id number] [place] [address] Oct, [facility] [address] [id number] [place] [address] Oct, Bipolar disorder, unspecified F31.[address] [facility] [address] [id number] [place] [id number] Sep, Oral health maintenance status requiring routine preventive dental care K08.9 [facility] [address] [address] Sep, Bipolar disorder, unspecified F31.9 ; At tention deficit hyperactivity disorder (ADHD), combined type F90.2 and Posttraumatic stress disorder F43.10 [facility] [address] [facility] [id number] [address] [address] Aug, Lymphadenopathy of left cerv ical region R59.0 [facility] [address] [address] Aug, Encounter for immunization Z23 [facility] [address] [address] Aug, 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.899 [facility] [address] [address] Jul, Bipolar disorder, unspecified F31.9 [facility] [address] [address] Jun, Bipolar disorder, unspecified F31.9 [facility] [address] [address] Jun, [facility] [address] [address] Jun, Bipolar disorder, unspecified F31.9 ; At tention deficit hyperactivity disorder (ADHD), combined type F90.2 ; Posttraumatic stress disorder F43.10 and Other assisted (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 Z79.[address] [facility] [address] [id number] [place] [id number] Jun, Dental examination Z01.20 [facility] [address] [address] May, [facility] [address] [address] Apr, Bipolar disorder, unspecified F31.9 [facility] [address] [address] March, Bipolar disorder, unspecified F31.9 ; At tention deficit hyperactivity disorder (ADHD), combined type F90.2 and Posttraumatic stress disorder F43.10 [facility] [address] [address] Feb, [facility] [address] [facility] [id number] [address] [address] Feb, Insect bite (nonvenomous), l eft knee, initial encounter S80.262A and Bitten or stung by nonvenomous insect and other nonvenomous arthropods, initial encounter W57.XXXA [facility] [address] [address] Feb, Bipolar disorder, unspecified F31.[address] [facility] [address] [id number] Feb, Dental examination Z01.20 [facility] [address] [address] Feb, Bipolar disorder, unspecified F31.9 ; At tention deficit hyperactivity disorder (ADHD), combined type F90.2 and Posttraumatic stress disorder F43.[address] [facility] [address] [id number] Feb, Dental examination Z01.20 [facility] [address] [address] Jan, Bipolar disorder, unspecified F31.9 [facility] [address] [address] Jan, Attention deficit hyperactivity disorder (ADHD), combined type F90.2 [facility] [address] [address] Dec, Posttraumatic stress disorder F43.10 [facility] [address] [address] Dec, Posttraumatic stress disorder F43.[address] [facility] [address] [id number] Nov, Dental examination Z01.[address] [facility] [address] [id number] Nov, 2017 Encounter for dental exam and cleaning w /o abnormal findings Z01.[address] [facility] [address] [id number] [place] [id number] 03 Nov, 2017 Dental examination Z01.20 [facility] [address] [address] 08 Sep, 2017 Bipolar disorder, unspecified F31.9 ; Po sttraumatic stress disorder F43.10 and Attention deficit hyperactivity disorder (ADHD), combined type F90.2 [facility] [address] [address] 09 Aug, 2017 Posttraumatic stress disorder F43.10 [facility] [address] [address] 15 Jul, 2017 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.[id number] [address] 11 Jul, 2017 Bipolar disorder, unspecified F31.9 ; At tention deficit hyperactivity disorder (ADHD), combined type F90.2 and Posttraumatic stress disorder F43.10 [facility] [address] [address] 09 Jun, 2017 Bipolar disorder, unspecified F31.9 ; Po sttraumatic stress disorder F43.10 ; Attention deficit hyperactivity disorder (ADHD), combined type F90.2 and 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.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 [facility] [address] [address] 10 Mar, 2017 Bipolar disorder, unspecified F31.9 ; Po sttraumatic stress disorder F43.10 and Attention deficit hyperactivity disorder (ADHD), combined type F90.2 [facility] [address] [address] 08 Dec, 2016 Bipolar disorder, unspecified F31.9 ; Po sttraumatic stress disorder F43.10 and Attention deficit hyperactivity disorder (ADHD), combined type F90.2 [facility] [address] [address] Dec, [facility] [address] [id number] [place] [address] Sep, [facility] [address] [address] Aug, Bipolar disorder, unspecified F31.9 ; sttraumatic stress disorder F43.10 and Attention deficit hyperactivity disorder (ADHD), combined type F90.2 [facility] [address] [address] Jun, [facility] [address] [address] March, [facility] [address] [address] Feb, Bipolar disorder, unspecified F31.9 ; At tention deficit hyperactivity disorder (ADHD), combined type F90.2 and Posttraumatic stress disorder F43.10 [facility] [address] [address] Feb, [facility] [address] [id number] [place] [address] Feb, [facility] [address] [address] Feb, [facility] [address] [id number] [place] [address] Jan, [facility] [address] [id number] [place] [id number] Dec, Dental examination Z01.20 [facility] [address] [id number] [place] [address] Sep, [facility] [address] [address] Sep, Attention deficit hyperactivity disorder (ADHD), combined type F90.2 ; Posttraumatic stress disorder F43.10 and Bipolar disorder, unspecified F31.9 [facility] [address] [address] Aug, [facility] [address] [id number] [place] [address] Aug, [facility] [address] [id number] [place] [address] Jul, [facility] [address] [id number] [place] [address] May, Bipolar disorder, unspecified 296.80 ; A ttention deficit 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.00 and Posttraumatic stress disorder 309.81 [facility] [address] [id number] [place] [address] May, [facility] [address] [id number] [place] [address] May, [facility] [address] [id number] [place] [address] May, [facility] [address] [id number] [place] [address] Apr, [facility] [address] [id number] [place] [address] Apr, [facility] [address] [id number] [place] [address] Apr, [facility] [address] [id number] [place] [address] March, [facility] [address] [id number] [place] [address] March, [facility] [address] [id number] [place] [address] March, [facility] [address] [id number] [place] [address] Feb, [facility] [id number] [place] [address] Feb, [facility] [address] [id number] [place] [address] Jan, [facility] [address] [id number] [place] [address] 30 Jan, 2015 [facility] [address] [id number] [facility] [address] Jan, [facility] [address] [id number] [facility] [address] Jan, [facility] [address] [id number] [facility] [address] Jan, [facility] [address] [facility] [id number] [facility] [address] Jan, 2014 [facility] [address] [facility] [id number] [facility] [address] Jan, [facility] [address] [facility] [id number] [facility] [address] Jan, [facility] [address] [facility] [id number] [place] [address] Jan, [facility] [address] [facility] [id number] [place] [address] Jan, 2014 [facility] [address] [facility] [id number] [place] [address] Dec, 2014 [facility] [address] [facility] [id number] [place] [address] Dec, 2014 [facility] [address] [id number] [place] [address] Dec, 2014 [facility] [address] [id number] [place] [address] Dec, 2014 [facility] [address] [facility] [id number] [place] [address] Oct, [facility] [address] [facility] [id number] [place] [address] Oct, [facility] [address] [facility] [id number] [place] [address] Oct, [facility] [address] [id number] [place] [address] Oct, [facility] [address] [id number] [place] [address] Oct, [facility] [id number] [place] [address] Oct, [facility] [address] [facility] [id number] [place] [address] Oct, [facility] [id number] [place] [address] Sep, [facility] [id number] [place] [address] Sep, [facility] [id number] [place] [address] Sep, [facility] [id number] [place] [address] Sep, [facility] [id number] [place] [address] Sep, [facility] [id number] [place] [address] Sep, [facility] [id number] [place] [address] Sep, [facility] [id number] [place] [address] Sep, [facility] [id number] [place] [address] Aug, [facility] [id number] [place] [address] Aug, [facility] [id number] [place] [address] Aug, [facility] [id number] [place] [address] Aug, [facility] [id number] [place] [address] Jul, [facility] [id number] [place] [address] Jul, [facility] [address] [id number] [place] [address] Jul, [facility] [address] [facility] [id number] [facility] [address] Jul, [facility] [address] [facility] [id number] [place] [address] Jun, [facility] [address] [facility] [id number] [facility] [address] Jun, [facility] [address] [facility] [id number] [place] [address] Jun, [facility] [address] [facility] [id number] [place] [address] Jun, [facility] [id number] [place] [address] May, [facility] [id number] [place] [address] May, [facility] [id number] [place] [address] May, [facility] [id number] [place] [address] May, [facility] [id number] [place] [address] Apr, [facility] [address] [facility] [id number] [place] [address] Apr, [facility] [address] [facility] [id number] [place] [address] Apr, [facility] [address] [id number] [place] [address] Apr, [facility] [id number] [place] [address] Apr, [facility] [address] [facility] [id number] [place] [address] Apr, [facility] [address] [facility] [id number] [facility] [address] Apr, [facility] [address] [facility] [id number] [facility] [address] Apr, [facility] [address] [facility] [id number] [facility] [address] Apr, [facility] [address] [facility] [id number] [facility] [address] Apr, [facility] [address] [facility] [id number] [facility] [address] Apr, [facility] [address] [facility] [id number] [facility] [address] Apr, [facility] [address] [id number] [place] [address] Apr, [facility] [address] [facility] [id number] [place] [address] March, [facility] [address] [facility] [id number] [place] [address] March, [facility] [id number] [facility] [address] March, [facility] [address] [facility] [id number] [place] [address] March, [facility] [id number] [place] [address] Jan, [facility] [id number] [facility] [address] Jan, [facility] [address] [facility] [id number] [place] [address] Jan, [facility] [address] [id number] [place] [address] Jan, [facility] [id number] [place] [address] Jan, [facility] [id number] [place] [address] Jan, [facility] [id number] [place] [address] Dec, [facility] [id number] [place] [address] Dec, [facility] [id number] [place] [address] Dec, [facility] [address] [id number] [place] [address] Dec, [facility] [address] [id number] [place] [address] Nov, [facility] [address] [id number] [place] [address] Nov, [facility] [address] [id number] [place] [address] Nov, [facility] [id number] [place] [address] Nov, [facility] [id number] [place] [address] Oct, [facility] [address] [id number] [place] [address] Oct, [facility] [id number] [place] [address] Oct, [facility] [id number] [place] [address] Oct, [facility] [address] [id number] [place] [address] Oct, [facility] [address] [id number] [place] [address] Oct, [facility] [id number] [place] [address] Oct, [facility] [address] [id number] [place] [address] Oct, [facility] [id number] [place] [address] Sep, [facility] [address] [id number] [place] [address] Sep, [facility] [address] [facility] [id number] [place] [address] Jul, [facility] [address] [id number] [place] [address] Jul, [facility] [address] [id number] [place] [address] Jul, [facility] [address] [id number] [place] [address] Jul, [facility] [address] [facility] [id number] [place] [address] Jun, [facility] [address] [id number] [place] [address] Jun, [facility] [address] [id number] [place] [address] May, [facility] [address] [id number] [place] [address] Apr, [facility] [id number] [place] [address] Apr, [facility] [id number] [place] [address] Apr, [facility] [id number] [place] [address] March, [facility] [id number] [place] [address] March, [facility] [id number] [place] [address] Feb, [facility] [id number] [place] [address] Jan, [facility] [id number] [place] [address] Jan, [facility] [id number] [place] [address] Dec, [facility] [id number] [place] [address] Dec, [facility] [id number] [place] [address] Nov, [facility] [id number] [place] [address] Nov, [facility] [id number] [place] [address] Nov, [facility] [id number] [place] [address] Oct, [facility] [id number] [place] [address] Oct, [facility] [id number] [place] [address] Oct, [facility] [id number] [place] [address] Oct, [facility] [id number] [place] [address] Sep, [facility] [id number] [place] [address] Sep, [facility] [id number] [place] [address] Sep, [facility] [id number] [place] [address] Sep, [facility] [id number] [place] [address] Sep, [facility] [id number] [place] [address] Sep, [facility] [id number] [place] [address] Aug, [facility] [id number] [place] [address] Jul, [facility] [id number] [place] [address] 19 Jul, 2012 [facility] [id number] [place] [address] 18 Jul, 2012 [facility] [id number] [place] [address] Jul, [facility] [id number] [place] [address] Jun, [facility] [id number] [place] [address] Jun, [facility] [id number] [place] [address] Jun, [facility] [id number] [place] [address] Jun, [facility] [id number] [place] [address] May, [facility] [id number] [place] [address] Apr, [facility] [id number] [place] [address] March, [facility] [id number] [place] [address] March, [facility] [id number] [place] [address] March, [facility] [id number] [place] [address] Feb, [facility] [id number] [place] [address] Feb, [facility] [id number] [place] [address] Jan, [facility] [id number] [place] [address] Jan, [facility] [id number] [place] [address] Jan, [facility] [id number] [place] [address] Dec, [facility] [id number] [place] [address] Dec, [facility] [id number] [place] [address] Nov, [facility] [id number] [place] [address] Nov, [facility] [id number] [place] [address] Nov, [facility] [id number] [place] [address] Nov, [facility] [id number] [place] [address] Nov, [facility] [id number] [place] [address] Oct, [facility] [id number] [place] [address] Oct, [facility] [id number] [place] [address] Oct, [facility] [id number] [place] [address] Oct, [facility] [id number] [place] [address] Sep, [facility] [id number] [place] [address] Sep, [facility] [id number] [place] [address] Sep, [facility] [id number] [place] [address] Aug, [facility] [id number] [place] [address] Oct, [facility] [id number] [place] [address] Oct, [facility] [id number] [place] [address] Oct, [facility] [id number] [place] [address] Oct, IMMUNIZATIONS No Known Immunizations SOCIAL HISTORY [...]
--- OUTSIDE RECORDS SUMMARY | 2020-04-25 14:51 | XMS REPORT ---
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 Name Role Phone Migration, Doctor Unavailable Unavailable PROBLEMS Type Condition ICD9-CM Code VSR42-JU Code Onset Dates Condition S tatus SNOMED Code Problem Posttraumatic stress disorder F43.10 Active 68247067 Problem Bipolar disorder, unspecified F31.9 Active [id number] Problem Attention deficit hyperactivity disorder (ADHD), combi dylon type F90.2 Active [id number] ALLERGIES No Information ENCOUNTERS Encounter Location Date Diagnosis [facility], [place] [address] [address] Dec, OUTREACH [facility] [place] [address] [id number] [address] Dec, [facility] [address] [id number] [place] [address] Nov, Post-nasal drip R09.82 [facility] [place] [address] [address] Nov, Bipolar disorder, unspecified F31.9 [facility] [place] [address] [address] Oct, [facility] [place] [address] [address] Oct, Bipolar disorder, unspecified F31.9 [facility] [place] [address] [address] Sep, Bipolar disorder, unspecified F31.9 ; At tention deficit hyperactivity disorder (ADHD), combined type F90.2 and Posttraumatic stress disorder F43.10 [facility] [place] [address] [address] Sep, Bipolar disorder, unspecified F31.9 OUTREACH [facility] [address] [address] [id number] [place] [address] Sep, Dental examination Z01.20 an d Oral health maintenance status requiring routine preventive dental care K08.9 [facility] [place] [address] [address] Aug, Bipolar disorder, unspecified F31.9 [facility] [place] [address] [address] Jul, Bipolar disorder, unspecified F31.9 [facility] [place] [address] [address] Jun, Bipolar disorder, unspecified F31.9 ; Po sttraumatic stress disorder F43.10 ; Attention deficit hyperactivity disorder (ADHD), combined type F90.2 and Other custodial (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 Z79.899 OUTREACH [facility] [address] [id number] [place] [address] May, Caries K02.9 OUTREACH [facility] [address] [id number] [place] [address] May, Caries K02.9 OUTREACH [facility] [address] [address] [id number] [place] [address] May, 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 requiring routine preventive dental care K08.9 [facility] [place] [id number] [place] [address] Apr, Bipolar disorder, unspecified F31.9 [facility], [place] [address] [address] Apr, [facility] [place] [id number] [place] [address] Apr, Bipolar disorder, unspecified F31.9 [facility] [place] [address] [address] Apr, Bipolar disorder, unspecified F31.9 [facility] [place] [address] [address] Apr, [facility] [place] [address] [id number] [place] [address] March, Bipolar disorder, unspecified F31.9 ; At tention deficit hyperactivity disorder (ADHD), combined type F90.2 ; Posttraumatic stress disorder F43.10 and Other custodial (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 Z79.[address] [id number] [place] [address] March, Dental examination Z01.20 and Caries K02 .9 [facility], [place] [address] [address] Feb, Bipolar disorder, unspecified F31.9 [facility] [place] [address] [address] Jan, Oral health maintenance status requiring routine preventive dental care K08.9 ; Dental examination Z01.20 and Caries K02.9 [facility], [place] [address] [id number] [place] [address] Jan, Bipolar disorder, unspecified F31.9 [facility] [place] [address] [address] Dec, Bipolar disorder, unspecified F31.9 ; At tention deficit hyperactivity disorder (ADHD), combined type F90.2 and Posttraumatic stress disorder F43.10 [facility] [address] [facility] [id number] 100KS [place] [address] Oct, Sore throat J02.9 [facility], [place] [address] [id number] [place] [address] Oct, [facility] [place] [address] [id number] [place] [address] Oct, Bipolar disorder, unspecified F31.9 [facility] [address] [facility]757[facility] [place] [id number] Sep, Oral health maintenance status requiring routine preventive dental care K08.9 [facility] [place] [address] [address] Sep, Bipolar disorder, unspecified F31.9 ; At tention deficit hyperactivity disorder (ADHD), combined type F90.2 and Posttraumatic stress disorder F43.10 [facility] [address] [facility] [id number] 100[place] [address] Aug, Lymphadenopathy of left cerv ical region R59.0 [facility] [place] [address] [address] Aug, Encounter for immunization Z23 [facility] [place] [address] [address] Aug, 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 79.899 [facility] [place] [address] [address] Jul, Bipolar disorder, unspecified F31.9 [facility] [place] [address] [address] Jun, Bipolar disorder, unspecified F31.9 [facility] [place] [address] [address] Jun, [facility] [place] [address] [address] Jun, Bipolar disorder, unspecified F31.9 ; At tention deficit hyperactivity disorder (ADHD), combined type F90.2 ; Posttraumatic stress disorder F43.10 and Other custodial (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 Z79.899 [facility] [address] [id number] [place] [id number] Jun, Dental examination Z01.20 [facility] [place] [address] [address] May, [facility] [place] [address] [address] Apr, Bipolar disorder, unspecified F31.9 [facility] [place] [address] [address] March, Bipolar disorder, unspecified F31.9 ; At tention deficit hyperactivity disorder (ADHD), combined type F90.2 and Posttraumatic stress disorder F43.10 [facility] [place] [address] [address] Feb, [facility] [address] [facility] [id number] 100KS [place] [address] Feb, Insect bite (nonvenomous), l eft knee, initial encounter S80.262A and Bitten or stung by nonvenomous insect and other nonvenomous arthropods, initial encounter W57.XXXA [facility], [place] [address] [address] Feb, Bipolar disorder, unspecified F31.9 [facility] [address] [id number] Feb, Dental examination Z01.20 [facility], [place] [address] [address] Feb, Bipolar disorder, unspecified F31.9 ; At tention deficit hyperactivity disorder (ADHD), combined type F90.2 and Posttraumatic stress disorder F43.10 [facility] [address] [id number] Feb, Dental examination Z01.20 [facility] [place] [address] [address] Jan, Bipolar disorder, unspecified F31.9 [facility] [place] [address] [address] Jan, Attention deficit hyperactivity disorder (ADHD), combined type F90.2 [facility] [place] [address] [address] Dec, Posttraumatic stress disorder F43.10 [facility], [place] [address] [address] Dec, Posttraumatic stress disorder F43.10 [facility] [address] [id number] Nov, Dental examination Z01.20 [facility] [address] [id number] Nov, 2017 Encounter for dental exam and cleaning w /o abnormal findings Z01.20 [facility] [address] [facility]757[facility] [place] [id number] 03 Nov, 2017 Dental examination Z01.20 [facility], [place] [address] [address] 08 Sep, 2017 Bipolar disorder, unspecified F31.9 ; Po sttraumatic stress disorder F43.10 and Attention deficit hyperactivity disorder (ADHD), combined type F90.2 [facility], [place] [address] [address] 09 Aug, 2017 Posttraumatic stress disorder F43.10 [facility] [place] [address] [address] 15 Jul, 2017 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 79.[id number] [address] 11 Jul, 2017 Bipolar disorder, unspecified F31.9 ; At tention deficit hyperactivity disorder (ADHD), combined type F90.2 and Posttraumatic stress disorder F43.10 [facility] [place] [address] [address] 09 Jun, 2017 Bipolar disorder, unspecified F31.9 ; Po sttraumatic stress disorder F43.10 ; Attention deficit hyperactivity disorder (ADHD), combined type F90.2 and 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.899 [facility] [place] [address] [address] 10 Mar, 2017 Bipolar disorder, unspecified F31.9 ; Po sttraumatic stress disorder F43.10 and Attention deficit hyperactivity disorder (ADHD), combined type F90.2 [facility] [place] [address] [address] 08 Dec, 2016 Bipolar disorder, unspecified F31.9 ; Po sttraumatic stress disorder F43.10 and Attention deficit hyperactivity disorder (ADHD), combined type F90.2 [facility] [place] [address] [address] Dec, [facility] [place] [address] [id number] [place] [address] Sep, [facility] [place] [address] [address] Aug, Bipolar disorder, unspecified F31.9 ; sttraumatic stress disorder F43.10 and Attention deficit hyperactivity disorder (ADHD), combined type F90.2 [facility], [place] [address] [address] Jun, [facility] [place] [address] [address] March, [facility] [place] [address] [address] Feb, Bipolar disorder, unspecified F31.9 ; At tention deficit hyperactivity disorder (ADHD), combined type F90.2 and Posttraumatic stress disorder F43.10 [facility] [place] [address] [address] Feb, [facility] [place] [address] [id number] [place] [address] Feb, [facility] [place] [address] [address] Feb, [facility] [place] [address] [id number] [place] [address] Jan, [facility] [address] [id number] [place] [id number] Dec, Dental examination Z01.20 [facility] [place] [id number] [place] [address] Sep, [facility] [place] [address] [address] Sep, Attention deficit hyperactivity disorder (ADHD), combined type F90.2 ; Posttraumatic stress disorder F43.10 and Bipolar disorder, unspecified F31.9 [facility], [place] [address] [address] Aug, [facility] [place] [id number] [place] [address] Aug, [facility] [place] [address] [id number] [place] [address] Jul, [facility] [place] [address] [id number] [place] [address] May, Bipolar disorder, unspecified 296.80 ; A ttention deficit 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.00 and Posttraumatic stress disorder 309.81 [facility] [id number] [place] [address] May, [facility] [place] [address] [id number] [place] [address] May, [facility] [place] [id number] [place] [address] May, [facility] [place] [id number] [place] [address] Apr, [facility] [place] [id number] [place] [address] Apr, [facility] [place] [id number] [place] [address] Apr, [facility] [place] [address] [id number] [place] [address] March, [facility] [place] [address] [id number] [place] [address] March, [facility] [place] [address] [id number] [place] [address] March, [facility] [address] [id number] [place] [address] Feb, [facility], [place] [id number] [place] [address] Feb, [facility] [id number] [place] [address] Jan, [facility] [place] [address] [id number] [place] [address] 30 Jan, 2015 [facility] [address] [id number] [facility] [place] [address] Jan, [facility] [address] [id number] [facility] [place] [address] Jan, [facility] [address] [id number] [facility] [place] [address] Jan, [facility] [address] [id number] [facility] [place] [address] Jan, 2014 [facility] [address] [id number] [facility] [place] [address] Jan, [facility] [address] [id number] [facility] [place] [address] Jan, [facility] [address] [id number] [place] [address] Jan, [facility] [address] [id number] [place] [address] Jan, 2014 [facility] [address] [id number] [place] [address] Dec, 2014 [facility] [address] [id number] [place] [address] Dec, 2014 [facility] [address] [id number] [place] [address] Dec, 2014 [facility] [address] [id number] [place] [address] Dec, 2014 [facility] [address] [id number] [place] [address] Oct, [facility] [address] [id number] [place] [address] Oct, [facility] [address] [id number] [place] [address] Oct, [facility] [address] [id number] [place] [address] Oct, [facility] [address] [id number] [place] [address] Oct, [facility] [address] [id number] [place] [address] Oct, [facility] [address] [id number] [place] [address] Oct, [facility] [address] [id number] [place] [address] Sep, [facility] [address] [id number] [place] [address] Sep, [facility] [address] [id number] [place] [address] Sep, [facility] [address] [id number] [place] [address] Sep, [facility] [id number] [place] [address] Sep, [facility] [address] [id number] [place] [address] Sep, [facility] [address] [id number] [place] [address] Sep, [facility] [address] [id number] [place] [address] Sep, [facility] [address] [id number] [place] [address] Aug, [facility] [address] [id number] [place] [address] Aug, [facility] [address] [id number] [place] [address] Aug, [facility] [id number] [place] [address] Aug, [facility] [address] [id number] [place] [address] Jul, [facility] [address] [id number] [place] [address] Jul, [facility] [address] [id number] [place] [address] Jul, [facility] [address] [facility] [id number] [facility] [place] [address] Jul, [facility] [address] [facility] [id number] [place] [address] Jun, [facility] [address] [facility] [id number] [facility] [place] [address] Jun, [facility] [address] [facility] [id number] [place] [address] Jun, [facility] [address] [id number] [place] [address] Jun, [facility] [address] [id number] [place] [address] May, [facility] [address] [id number] [place] [address] May, [facility] [address] [id number] [place] [address] May, [facility] [address] [id number] [place] [address] May, [facility] [address] [id number] [place] [address] Apr, [facility] [address] [id number] [place] [address] Apr, [facility] [address] [facility] [id number] [place] [address] Apr, [facility] [address] [id number] [place] [address] Apr, [facility] [address] [id number] [place] [address] Apr, [facility] [address] [id number] [place] [address] Apr, [facility] [address] [id number] [facility] [place] [address] Apr, [facility] [address] [facility] [id number] [facility] [place] [address] Apr, [facility] [address] [facility] [id number] [facility] [place] [address] Apr, [facility] [address] [id number] [facility] [place] [address] Apr, [facility] [address] [facility] [id number] [facility] [place] [address] Apr, [facility] [address] [facility] [id number] [facility] [place] [address] Apr, [facility] [address] [id number] [place] [address] Apr, [facility] [address] [id number] [place] [address] March, [facility] [address] [id number] [place] [address] March, [facility] [address] [id number] [facility] [place] [address] March, [facility] [address] [id number] [place] [address] March, [facility] [address] [id number] [place] [address] Jan, [facility] [address] [id number] [facility] [place] [address] Jan, [facility] [address] [facility] [id number] [place] [address] Jan, [facility] [address] [id number] [place] [address] Jan, [facility] [address] [id number] [place] [address] Jan, [facility] [address] [id number] [place] [address] Jan, [facility] [address] [id number] [place] [address] Dec, [facility] [address] [id number] [place] [address] Dec, [facility] [address] [id number] [place] [address] Dec, [facility] [address] [id number] [place] [address] Dec, [facility] [address] [id number] [place] [address] Nov, [facility] [address] [id number] [place] [address] Nov, [facility] [address] [id number] [place] [address] Nov, [facility] [id number] [place] [address] Nov, [facility] [id number] [place] [address] Oct, [facility] [address] [id number] [place] [address] Oct, [facility] [id number] [place] [address] Oct, [facility] [id number] [place] [address] Oct, [facility] [address] [id number] [place] [address] Oct, [facility] [address] [id number] [place] [address] Oct, [facility] [id number] [place] [address] Oct, [facility] [address] [id number] [place] [address] Oct, [facility] [id number] [place] [address] Sep, [facility] [address] [id number] [place] [address] Sep, [facility] [address] [id number] [place] [address] Jul, [facility] [address] [id number] [place] [address] Jul, [facility] [address] [id number] [place] [address] Jul, [facility] [address] [id number] [place] [address] Jul, [facility] [address] [id number] [place] [address] Jun, [facility] [address] [id number] [place] [address] Jun, [facility] [address] [id number] [place] [address] May, [facility] [address] [id number] [place] [address] Apr, [facility] [address] [id number] [place] [address] Apr, [facility] [address] [id number] [place] [address] Apr, [facility] [address] [id number] [place] [address] March, [facility] [address] [id number] [place] [address] March, [facility] [address] [id number] [place] [address] Feb, [facility] [address] [id number] [place] [address] Jan, [facility] [address] [id number] [place] [address] Jan, [facility] [address] [id number] [place] [address] Dec, [facility] [address] [id number] [place] [address] Dec, [facility] [address] [id number] [place] [address] Nov, [facility] [id number] [place] [address] Nov, [facility] [id number] [place] [address] Nov, [facility] [address] [id number] [place] [address] Oct, [facility] [id number] [place] [address] Oct, [facility] [id number] [place] [address] Oct, [facility] [id number] [place] [address] Oct, [facility] [id number] [place] [address] Sep, [facility] [id number] [place] [address] Sep, [facility] [id number] [place] [address] Sep, [facility] [id number] [place] [address] Sep, [facility] [id number] [place] [address] Sep, [facility] [id number] [place] [address] Sep, [facility] [address] [id number] [place] [address] Aug, [facility] [id number] [place] [address] Jul, [facility] [id number] [place] [address] 19 Jul, 2012 [facility] [address] [id number] [place] [address] 18 Jul, 2012 [facility] [address] [id number] [place] [address] Jul, [facility] [address] [id number] [place] [address] Jun, [facility] [address] [id number] [place] [address] Jun, [facility] [address] [id number] [place] [address] Jun, [facility] [address] [id number] [place] [address] Jun, [facility] [address] [id number] [place] [address] May, [facility] [address] [id number] [place] [address] Apr, [facility] [address] [id number] [place] [address] March, [facility] [address] [id number] [place] [address] March, [facility] [address] [id number] [place] [address] March, [facility] [address] [id number] [place] [address] Feb, [facility] [address] [id number] [place] [address] Feb, [facility] [address] [id number] [place] [address] Jan, [facility] [address] [id number] [place] [address] Jan, [facility] [address] [id number] [place] [address] Jan, [facility] [address] [id number] [place] [address] Dec, [facility] [address] [id number] [place] [address] Dec, [facility] [address] [id number] [place] [address] Nov, [facility] [address] [id number] [place] [address] Nov, [facility] [address] [id number] [place] [address] Nov, [facility] [address] [id number] [place] [address] Nov, [facility] [address] [id number] [place] [address] Nov, [facility] [address] [id number] [place] [address] Oct, [facility] [address] [id number] [place] [address] Oct, [facility] [id number] [place] [address] Oct, [facility] [address] [id number] [place] [address] Oct, [facility] [address] [id number] [place] [address] Sep, [facility] [address] [id number] [place] [address] Sep, [facility] [address] [id number] [place] [address] Sep, [facility] [address] [id number] [place] [address] Aug, [facility] [address] [id number] [place] [address] Oct, [facility] [address] [id number] [place] [address] Oct, [facility] [place] [address] [id number] [place] [address] Oct, [facility] [place] [address] [id number] [place] [address] Oct, IMMUNIZATIONS No Known Immunizations SOCIAL HISTORY [...]
--- OUTSIDE RECORDS SUMMARY | 2020-04-25 14:51 | XMS REPORT ---
Author Author Ronna Blackmon Doctor Organization [facility] Address Unknown Phone Unavailable Care Team Providers Care Pulmonologist/Intensivist Name Role Phone Migration, Doctor Unavailable Unavailable PROBLEMS Type Condition ICD9-CM Code FNT43-FC Code Onset Dates Condition S tatus SNOMED Code Problem Encounter for long-term (current) use of other medications V58.69 Active 373510213 Problem Posttraumatic stress disorder F43.10 Active 03386869 Problem Bipolar disorder, unspecified F31.9 Active 09455498 Problem 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 Active 35073233 Problem Posttraumatic stress disorder 309.81 Active 69566080 Problem Bipolar disorder, unspecified 296.80 Active 02827500 Problem Attention deficit hyperactivity disorder (ADHD), combi dylon type F90.2 Active [id number] ALLERGIES No Information ENCOUNTERS Encounter Location Date Diagnosis [facility] [address] [id number] [address] [place] [phone] Sep, [facility] [id number] [place] [phone] Jul, Bipolar disorder, unspecifie d F31.9 [facility] [address] [id number] [address] [place] [address] Jun, Bipolar disorder, unspecifie d F31.9 ; Posttraumatic stress disorder F43.10 ; Attention deficit hyperactivity disorder (ADHD), combined type F90.2 and Other halfway (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 Z79.899 [facility] [address] [id number] [place] [address] May, Caries K02.9 [facility] JOHN [address] [id number] [place] [address] May, Caries K02.9 [facility] [address] [facility] [id number] [address] May, 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 requiring routine preventive dental care K08.9 [facility] [address] [id number] [address] [place] [phone] Apr, Bipolar disorder, unspecifie d F31.9 [facility] [address] [id number] [address] [place] [phone] Apr, [facility] [address] [facility] [id number] [address] [place] [address] Apr, Bipolar disorder, unspecifie d F31.9 [facility] [address] [id number] [address] [place] [phone] Apr, Bipolar disorder, unspecifie d F31.9 [facility] [address] [facility] [id number] [address] [place] [address] Apr, [facility] [address] [facility] [id number] [address] [place] [phone] March, Bipolar disorder, unspecifie d F31.9 ; Attention deficit hyperactivity disorder (ADHD), combined type F90.2 ; Posttraumatic stress disorder F43.10 and Other halfway (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 Z79.899 [facility] [address] SOLIMAN [id number] [place] [address] March, Dental examination Z01.20 and Caries K02 .9 [facility] [address] [facility] [id number] [address] [place] [address] Feb, Bipolar disorder, unspecifie d F31.9 [facility] [address] [facility] [id number] [address] [place] [phone] Jan, Oral health maintenance stat requiring routine preventive dental care K08.9 ; Dental examination Z01.20 and Caries K02.9 [facility] [address] [id number] [address] [place] [address] Jan, Bipolar disorder, unspecifie d F31.9 [facility] [address] [facility] [id number] [address] [place] [address] Dec, Bipolar disorder, unspecifie d F31.9 ; Attention deficit hyperactivity disorder (ADHD), combined type F90.2 and Posttraumatic stress disorder F43.10 [facility] [address] [facility] [id number] [address] [place] [phone] Oct, Sore throat J02.9 [facility] [address] [facility] [id number] [address] [place] [phone] Oct, [facility] [address] [facility] [id number] [address] [place] [address] Oct, Bipolar disorder, unspecifie d F31.9 [facility] [address] [facility] [id number] [address] [place] [id number] Sep, 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 requiring routine preventive dental care K08.9 [facility] [address] [facility] [id number] [address] [place] [address] Sep, Bipolar disorder, unspecifie d F31.9 ; Attention deficit hyperactivity disorder (ADHD), combined type F90.2 and Posttraumatic stress disorder F43.10 [facility] [address] [facility] [id number] [address] [place] [address] Aug, Lymphadenopathy of left cerv ical region R59.0 [facility] [address] [facility] [id number] [address] [place] [address] Aug, Encounter for immunization Z 23 [facility] [address] [id number] [address] [place] [address] Aug, 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 nubia briceno Z79.899 [facility] [address] [facility] [id number] [address] [place] [address] Jul, Bipolar disorder, unspecifie d F31.9 [facility] [address] [facility] [id number] [address] [place] [address] Jun, Bipolar disorder, unspecifie d F31.9 [facility] [address] [facility] [id number] [address] [place] [phone] Jun, [facility] [address] [facility] [id number] [address] [place] [phone] Jun, Bipolar disorder, unspecifie d F31.9 ; Attention deficit hyperactivity disorder (ADHD), combined type F90.2 ; Posttraumatic stress disorder F43.10 and Other halfway (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 Z79.899 [facility] [address] [id number] [address] [place] [id number] Jun, Dental examination Z01.20 [facility] [address] [facility] [id number] [address] [place] [phone] May, [facility] [address] [facility] [id number] [address] [place] [address] Apr, Bipolar disorder, unspecifie d F31.9 [facility] [address] [facility] [id number] [address] [place] [address] March, Bipolar disorder, unspecifie d F31.9 ; Attention deficit hyperactivity disorder (ADHD), combined type F90.2 and Posttraumatic stress disorder F43.10 [facility] [address] [facility] [id number] [address] [place] [address] Feb, [facility] [address] [facility] [id number] [address] [place] [address] Feb, Insect bite (nonvenomous), l eft knee, initial encounter S80.262A and Bitten or stung by nonvenomous insect and other nonvenomous arthropods, initial encounter W57.XXXA [facility] [address] [facility] [id number] [address] [place] [address] Feb, Bipolar disorder, unspecifie d F31.9 [facility] [address] [id number] [address] [place] [id number] Feb, Dental examination Z01.20 [facility] [address] [facility] [id number] [address] [place] [address] Feb, Bipolar disorder, unspecifie d F31.9 ; Attention deficit hyperactivity disorder (ADHD), combined type F90.2 and Posttraumatic stress disorder F43.10 [facility] [address] [id number] [address] [place] [id number] Feb, Dental examination Z01.20 [facility] [address] [facility] [id number] [address] [place] [phone] Jan, Bipolar disorder, unspecifie d F31.9 [facility] [address] [facility] [id number] [address] [place] [phone] Jan, Attention deficit hyperactiv ity disorder (ADHD), combined type F90.2 [facility] [address] [facility] [id number] [address] [place], [place] [address] Dec, Posttraumatic stress disorde r F43.10 [facility] [address] [facility] [id number] [address] [place] [address] Dec, Posttraumatic stress disorde r F43.10 [facility] [id number] [place] [id number] Nov, Dental examination Z01.20 [facility] [id number] [id number] Nov, Encounter for dental exam an d cleaning w/o abnormal findings Z01.20 [facility] [id number] [place] [address] [id number] Nov, Dental examination Z01.20 [facility] [address] [facility] [id number] [address] [place] [address] Sep, Bipolar disorder, unspecifie d F31.9 ; Posttraumatic stress disorder F43.10 and Attention deficit hyperactivity disorder (ADHD), combined type F90.2 [facility] [address] [facility] [id number] [address] [place] [address] Aug, Posttraumatic stress disorde r F43.10 [facility] [address] [facility] [id number] [address] [place] [phone] Jul, 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 ug therapy Z79.899 [facility] [address] [id number] [address] [place] [phone] Jul, Bipolar disorder, unspecifie d F31.9 ; Attention deficit hyperactivity disorder (ADHD), combined type F90.2 and Posttraumatic stress disorder F43.10 [facility] [address] [facility] [id number] [address] [place] [address] Jun, Bipolar disorder, unspecifie d F31.9 ; Posttraumatic stress disorder F43.10 ; Attention deficit hyperactivity disorder (ADHD), combined type F90.2 and 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 Z79.899 [facility] [address] [id number] [address] [place] [phone] March, Bipolar disorder, unspecifie d F31.9 ; Posttraumatic stress disorder F43.10 and Attention deficit hyperactivity disorder (ADHD), combined type F90.2 [facility] [address] [facility] [id number] [address] [place] [phone] Dec, Bipolar disorder, unspecifie d F31.9 ; Posttraumatic stress disorder F43.10 and Attention deficit hyperactivity disorder (ADHD), combined type F90.2 [facility] [address] [facility] [id number] [address] [place] [address] Dec, [facility] [address] [facility] [id number] [address] [place] [phone] Sep, [facility] [address] [facility] [id number] [address] [place] [phone] Aug, Bipolar disorder, unspecifie d F31.9 ; Posttraumatic stress disorder F43.10 and Attention deficit hyperactivity disorder (ADHD), combined type F90.2 [facility] [address] [facility] [id number] [address] [place] [phone] Jun, [facility] [address] [facility] [id number] [address] [place] [phone] March, [facility] [address] [facility] [id number] [address] [place] [phone] Feb, Bipolar disorder, unspecifie d F31.9 ; Attention deficit hyperactivity disorder (ADHD), combined type F90.2 and Posttraumatic stress disorder F43.10 [facility] [address] [id number] [address] [place] [phone] Feb, [facility] [address] [facility] [id number] [address] [place] [phone] Feb, [facility] [address] [facility] [id number] [address] [place] [phone] Feb, [facility] [address] [facility] [id number] [address] [place] [phone] Jan, [facility] [address] [facility] [id number] [address] [place] [address] [id number] Dec, Dental examination Z01.20 [facility] [address] [facility] [id number] [address] [place] [phone] Sep, [facility] [address] [facility] [id number] [address] [place] [address] Sep, Attention deficit hyperactiv ity disorder (ADHD), combined type F90.2 ; Posttraumatic stress disorder F43.10 and Bipolar disorder, unspecified F31.9 [facility] [address] [facility] [id number] [address] [place] [phone] Aug, [facility] [address] [facility] [id number] [address] [place] [phone] Aug, [facility] [address] [facility] [id number] [address] [place] [phone] Jul, [facility] [address] [facility] [id number] [address] [place] [phone] May, Bipolar disorder, unspecifie d 296.80 ; 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.00 and Posttraumatic stress disorder 309.81 [facility] [address] [facility] [id number] [address] [place] [phone] May, [facility] [address] [id number] [address] [place] [address], [place] [address] May, [facility] [address] [id number] [address] [place] [address], [place] [address] May, [facility] [address] [id number] [address] [place] [address], [place] [address] Apr, [facility] [address] [id number] [address] [place] [address], [place] [address] Apr, [facility] [address] [id number] [address] [place] [address], [place] [address] Apr, [facility] [address] [id number] [address] [place] [address], [place] [address] March, [facility] [address] [id number] [address] [place] [address], [place] [address] March, [facility] [address] [id number] [address] [place] [address], [place] [address] March, [facility] [address] [id number] [address] [place] [address], [place] [address] Feb, [facility] [address] [id number] [address] [place] [address], [place] [address] Feb, [facility] [address] [id number] [address] [place] [address], [place] [address] Jan, [facility] [address] [id number] [address] [place] [address], [place] [address] Jan, [facility] [address] [id number] [address] [place] [address], [place] [address] Jan, [facility] [address] [id number] [address] [place] [address], [place] [address] Jan, [facility] [address] [id number] [address] [place] [address], [place] [address] Jan, [facility] [address] [id number] [address] [place] [address], [place] [address] Jan, 2014 [facility] [address] [id number] [address] [place] [address], [place] [address] Jan, 2014 [facility] [address] [id number] [address] [place] [address], [place] [address] Jan, 2014 [facility] [address] [id number] [address] [place] [address], [place] [address] Jan, 2014 [facility] [address] [id number] [address] [place] [address], [place] [address] Jan, 2014 [facility] [address] [id number] [address] [place] [address], [place] [address] Dec, 2014 [facility] [address] [id number] [address] [place] [address], [place] [address] Dec, 2014 [facility] [address] [id number] [address] [place] [address], [place] [address] Dec, 2014 [facility] [address] [id number] [address] [place] [address], [place] [address] Dec, 2014 [facility] [address] [id number] [address] [place] [address], [place] [address] Oct, [facility] [address] [id number] [address] [place] [address], [place] [address] 18 Oct, 2014 [facility] [address] [id number] [address] [place] [address], [place] [address] 18 Oct, 2014 [facility] [address] [id number] [address] [place] [address], [place] [address] 18 Oct, 2014 [facility] [address] [id number] [address] [place] [address], [place] [address] 18 Oct, 2014 [facility] [address] [id number] [address] [place] [address], [place] [address] 05 Oct, 2014 [facility] [address] [id number] [address] [place] [address], [place] [address] Oct, [facility] [address] [id number] [address] [place] [address], [place] [address] Sep, [facility] [address] [id number] [address] [place] [address], [place] [address] Sep, [facility] [address] [id number] [address] [place] [address], [place] [address] Sep, [facility] [address] [id number] [address] [place] [address], [place] [address] Sep, [facility] [address] [id number] [address] [place] [address], [place] [address] Sep, [facility] [address] [id number] [address] [place] [address], [place] [address] Sep, [facility] [address] [id number] [address] [place] [address], [place] [address] Sep, [facility] [address] [id number] [address] [place] [address], [place] [address] Sep, [facility] [address] [id number] [address] [place] [address], [place] [address] Aug, [facility] [address] [id number] [address] [place] [address], [place] [address] Aug, [facility] [address] [id number] [address] [place] [address] Aug, [facility] [address] [id number] [address] [place] [address] Aug, [facility] [address] [id number] [address] [place] [address], [place] [address] Jul, [facility] [address] [id number] [address] [place] [address], [place] [address] 08 Jul, 2014 [facility] [address] [id number] [address] [place] [address], [place] [address] Jul, [facility] [address] [id number] [address] [place] [address], [place] [address] Jul, [facility] [address] [id number] [address] [place] [address], [place] [address] Jun, [facility] [address] [id number] [address] [place] [address], [place] [address] Jun, [facility] [address] [id number] [address] [place] [address], [place] [id number] Jun, [facility] [address] [id number] [address] [place] [address], [place] [address] Jun, [facility] [address] [id number] [address] [place] [address], [place] [address] May, [facility] [address] [id number] [address] [place] [address], [place] [address] May, [facility] [address] [id number] [address] [place] [address], [place] [address] May, [facility] [address] [id number] [address] [place] [address], [place] [address] May, [facility] [address] [id number] [address] [place] [address], [place] [address] Apr, [facility] [address] [id number] [address] [place] [address], [place] [id number] Apr, [facility] [address] [id number] [address] [place] [address], [place] [id number] Apr, [facility] [address] [id number] [address] [place] [address], [place] [id number] Apr, [facility] [address] [id number] [address] [place] [address], [place] [id number] Apr, [facility] [address] [id number] [address] [place] [address], [place] [id number] Apr, [facility] [address] [id number] [address] [place] [address], [place] [id number] Apr, [facility] [address] [id number] [address] [place] [address], [place] [id number] Apr, [facility] [address] [id number] [address] [place] [address], [place] [id number] Apr, [facility] [address] [id number] [address] [place] [address], [place] [address] Apr, [facility] [address] [id number] [address] [place] [address], [place] [id number] Apr, [facility] [address] [id number] [address] [place] [address], [place] [id number] Apr, [facility] [address] [id number] [address] [place] [address], [place] [id number] Apr, [facility] [address] [id number] [address] [place] [address], [place] [id number] March, [facility] [address] [id number] [address] [place] [address], [place] [id number] March, [facility] [address] [id number] [address] [place] [address], [place] [id number] March, [facility] [address] [id number] [address] [place] [address], [place] [id number] March, [facility] [address] [id number] [address] [place] [address], [place] [id number] Jan, [facility] [address] [id number] [address] [place] [address], [place] [id number] Jan, [facility] [address] [id number] [address] [place] [address], [place] [id number] Jan, [facility] [address] [id number] [address] [place] [address], [place] [id number] Jan, [facility] [address] [id number] [address] [place] [address], [place] [id number] Jan, [facility] [address] [id number] [address] [place] [address], [place] [id number] Jan, [facility] [address] [id number] [address] [place] [address], [place] [id number] Dec, [facility] [address] [id number] [address] [place] [address], [place] [id number] Dec, [facility] [address] [address] [id number] [address] [place] [address], [place] [id number] Dec, [facility] [address] [id number] [address] [place] [address], [place] [id number] Dec, [facility] [address] [id number] [address] [place] [address], [place] [id number] Nov, [facility] [address] [id number] [address] [place] [address], [place] [address] Nov, [facility] [address] [id number] [address] [place] [address], [place] [address] Nov, [facility] [address] [id number] [address] [place] [address], [place] [id number] Nov, [facility] [address] [id number] [address] [place] [address], [place] [id number] Oct, [facility] [address] [id number] [address] [place] [address], [place] [address] Oct, [facility] [address] [id number] [address] [place] [address], [place] [id number] Oct, [facility] [address] [id number] [address] [place] [address], [place] [address] Oct, [facility] [address] [id number] [address] [place] [address], [place] [id number] Oct, [facility] [address] [id number] [address] [place] [address], [place] [id number] Oct, [facility] [address] [id number] [address] [place] [address], [place] [id number] Oct, [facility] [address] [id number] [address] [place] [address], [place] [id number] Oct, [facility] [address] [id number] [address] [place] [address], [place] [address] Sep, [facility] [address] [id number] [address] [place] [address], [place] [id number] Sep, [facility] [address] [id number] [address] [place] [address], [place] [address] Jul, [facility] [address] [id number] [address] [place] [address], [place] [id number] Jul, [facility] [address] [id number] [address] [place] [address], [place] [id number] Jul, [facility] [address] [id number] [address] [place] [address], [place] [id number] Jul, [facility] [address] [id number] [address] [place] [address], [place] [id number] Jun, [facility] [address] [id number] [address] [place] [address], [place] [id number] Jun, [facility] [address] [id number] [address] [place] [address], [place] [address] May, [facility] [address] [id number] [address] [place] [address], [place] [id number] Apr, [facility] [address] [id number] [address] [place] [address], [place] [address] Apr, [facility] [address] [id number] [address] [place] [address], [place] [id number] Apr, [facility] [address] [id number] [address] [place] [address], [place] [id number] March, [facility] [address] [id number] [address] [place] [address], [place] [id number] March, [facility] [address] [id number] [address] [place] [address], [place] [id number] Feb, [facility] [address] [id number] [address] [place] [address], [place] [id number] Jan, [facility] [address] [id number] [address] [place] [address], [place] [id number] Jan, [facility] [address] [id number] [address] [place] [address], [place] [id number] Dec, [facility] [address] [id number] [address] [place] [address], [place] [id number] Dec, [facility] [address] [id number] [address] [place] [address], [place] [address] Nov, [facility] [address] [id number] [address] [place] [address], [place] [id number] Nov, [facility] [address] [id number] [address] [place] [address], [place] [id number] Nov, [facility] [address] [id number] [address] [place] [address], [place] [id number] Oct, [facility] [address] [id number] [address] [place] [address], [place] [id number] Oct, [facility] [address] [id number] [address] [place] [address], [place] [address] Oct, [facility] [address] [id number] [address] [place] [address], [place] [id number] Oct, [facility] [address] [id number] [address] [place] [address], [place] [id number] Sep, [facility] [address] [id number] [address] [place] [address], [place] [id number] Sep, [facility] [address] [id number] [address] [place] [address], [place] [id number] Sep, [facility] [address] [id number] [address] [place] [address], [place] [address] Sep, [facility] [address] [id number] [address] [place] [address], [place] [id number] 15 Sep, 2012 [facility] [address] [id number] [address] [place] [address], [place] [id number] 15 Sep, 2012 [facility] [address] [id number] [address] [place] [address], [place] [address] Aug, [facility] [address] [id number] [address] [place] [address], [place] [id number] 26 Jul, 2012 [facility] [address] [id number] [address] [place] [address], [place] [id number] 19 Jul, 2012 [facility] [address] [id number] [address] [place] [address], [place] [id number] 18 Jul, 2012 [facility] [address] [id number] [address] [place] [address], [place] [id number] 14 Jul, 2012 [facility] [address] [id number] [address] [place] [address], [place] [id number] Jun, [facility] [address] [id number] [address] [place] [address], [place] [id number] Jun, [facility] [address] [id number] [address] [place] [address], [place] [id number] Jun, [facility] [address] [id number] [address] [place] [address], [place] [id number] Jun, [facility] [address] [id number] [address] [place] [address], [place] [id number] May, [facility] [address] [id number] [address] [place] [address], [place] [address] Apr, [facility] [address] [id number] [address] [place] [address], [place] [address] March, [facility] [address] [id number] [address] [place] [address], [place] [address] March, [facility] [address] [id number] [address] [place] [address], [place] [address] March, [facility] [address] [id number] [address] [place] [address], [place] [address] Feb, [facility] [address] [id number] [address] [place] [address], [place] [id number] Feb, [facility] [address] [id number] [address] [place] [address], [place] [address] Jan, [facility] [address] [id number] [address] [place] [address], [place] [address] Jan, [facility] [address] [id number] [address] [place] [address], [place] [id number] Jan, [facility] [address] [id number] [address] [place] [address], [place] [address] Dec, [facility] [address] [id number] [address] [place] [address], [place] [address] Dec, [facility] [address] [id number] [address] [place] [address], [place] [address] Nov, [facility] [address] [id number] [address] [place] [address], [place] [address] Nov, [facility] [address] [id number] [address] [place] [address], [place] [id number] Nov, [facility] [address] [id number] [address] [place] [address], [place] [id number] Nov, [facility] [address] [id number] [address] [place] [address], [place] [id number] Nov, [facility] [address] [id number] [address] [place] [address], [place] [id number] Oct, [facility] [address] [id number] [address] [place] [address], [place] [id number] Oct, [facility] [address] [id number] [address] [place] [address], [place] [id number] Oct, [facility] [address] [id number] [address] [place] [id number] Oct, [facility] [address] [id number] [address] [place] [id number] Sep, [facility] [address] [id number] [address] [place] [id number] Sep, [facility] [address] [id number] [address] [place] [id number] Sep, [facility] [address] [id number] [address] [place] [id number] Aug, [facility] [address] [id number] [address] [place] [id number] Oct, [facility] [address] [id number] [address] [place] [id number] Oct, [facility] [address] [id number] [address] [place] [id number] Oct, [facility] [address] [id number] [address] [place] [id number] Oct, IMMUNIZATIONS No Known Immunizations SOCIAL HISTORY [...]
--- OUTSIDE RECORDS SUMMARY | 2020-04-25 14:51 | XMS REPORT ---
Author Author Ronna Blackmon Doctor Organization [facility] Address Unknown Phone Unavailable Care Team Providers Care Raker Buffing Wheel Name Role Phone Migration, Doctor Unavailable Unavailable PROBLEMS Type Condition ICD9-CM Code [id number] Code Onset Dates Condition S tatus SNOMED Code Problem Posttraumatic stress disorder F43.10 Active 58688554 Problem Bipolar disorder, unspecified F31.9 Active [id number] Problem Attention deficit hyperactivity disorder (ADHD), combi dylon type F90.2 Active [id number] ALLERGIES No Information ENCOUNTERS Encounter Location Date Diagnosis [facility] [address] [address] Dec, OUTREACH [facility] [address] [id number] [address] Dec, [facility] [address] [id number] [place] [address] Nov, Post-nasal drip R09.82 [facility] [address] [address] Nov, Bipolar disorder, unspecified F31.9 [facility] [address] [address] Oct, [facility] [address] [address] Oct, Bipolar disorder, unspecified F31.9 [facility] [address] [address] Sep, Bipolar disorder, unspecified F31.9 ; At tention deficit hyperactivity disorder (ADHD), combined type F90.2 and Posttraumatic stress disorder F43.10 [facility] [address] [address] Sep, Bipolar disorder, unspecified F31.9 OUT[facility]ACH [facility] [address] [address] [id number] [place] [address] Sep, Dental examination Z01.20 an d Oral health maintenance status requiring routine preventive dental care K08.9 [facility] [address] [address] Aug, Bipolar disorder, unspecified F31.9 [facility] [address] [address] Jul, Bipolar disorder, unspecified F31.9 [facility] [address] [address] Jun, Bipolar disorder, unspecified F31.9 ; Po sttraumatic stress disorder F43.10 ; Attention deficit hyperactivity disorder (ADHD), combined type F90.2 and Other skilled nursing (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 Z79.899 OUTREACH [facility] [address] [id number] [place] [address] May, Caries K02.9 OUTREACH [facility] [address] [id number] [place] [address] May, Caries K02.9 OUTREACH [facility] [address] [address] [id number] [place] [address] May, 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 requiring routine preventive dental care K08.9 [facility] [id number] [place] [address] Apr, Bipolar disorder, unspecified F31.9 [facility] [address] [address] Apr, [facility] [id number] [place] [address] Apr, Bipolar disorder, unspecified F31.9 [facility] [address] [address] Apr, Bipolar disorder, unspecified F31.9 [facility] [address] [address] Apr, [facility] [address] [id number] [place] [address] March, Bipolar disorder, unspecified F31.9 ; At tention deficit hyperactivity disorder (ADHD), combined type F90.2 ; Posttraumatic stress disorder F43.10 and Other skilled nursing (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 Z79.[address] [id number] [place] [address] March, Dental examination Z01.20 and Caries K02 .9 [facility] [address] [address] Feb, Bipolar disorder, unspecified F31.9 [facility] [address] [address] Jan, Oral health maintenance status requiring routine preventive dental care K08.9 ; Dental examination Z01.20 and Caries K02.9 [facility] [address] [id number] [place] [address] Jan, Bipolar disorder, unspecified F31.9 [facility] [address] [address] Dec, Bipolar disorder, unspecified F31.9 ; At tention deficit hyperactivity disorder (ADHD), combined type F90.2 and Posttraumatic stress disorder F43.10 [facility] [address] [facility] [id number] 100[place] [address] Oct, Sore throat J02.9 [facility] [address] [id number] [place] [address] Oct, [facility] [address] [id number] [place] [address] Oct, Bipolar disorder, unspecified F31.9 [facility] [address] [id number] [place] [id number] Sep, Oral health maintenance status requiring routine preventive dental care K08.9 [facility] [address] [address] Sep, Bipolar disorder, unspecified F31.9 ; At tention deficit hyperactivity disorder (ADHD), combined type F90.2 and Posttraumatic stress disorder F43.10 [facility] [address] 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 Z 79.899 [facility] [address] [address] Jul, Bipolar disorder, unspecified F31.9 [facility] [address] [address] Jun, Bipolar disorder, unspecified F31.9 [facility] [address] [address] Jun, [facility] [address] [address] Jun, Bipolar disorder, unspecified F31.9 ; At tention deficit hyperactivity disorder (ADHD), combined type F90.2 ; Posttraumatic stress disorder F43.10 and Other skilled nursing (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 Z79.899 [facility] [address] [id number] [place] [id number] Jun, Dental examination Z01.20 [facility] [address] [address] May, [facility] [address] [address] Apr, Bipolar disorder, unspecified F31.9 [facility] [address] [address] March, Bipolar disorder, unspecified F31.9 ; At tention deficit hyperactivity disorder (ADHD), combined type F90.2 and Posttraumatic stress disorder F43.10 [facility] [address] [address] Feb, [facility] [address] [facility] [id number] [place] [address] Feb, Insect bite (nonvenomous), l eft knee, initial encounter S80.262A and Bitten or stung by nonvenomous insect and other nonvenomous arthropods, initial encounter W57.XXXA [facility] [address] [address] Feb, Bipolar disorder, unspecified F31.9 [facility] [address] [id number] Feb, Dental examination Z01.20 [facility] [address] [address] Feb, Bipolar disorder, unspecified F31.9 ; At tention deficit hyperactivity disorder (ADHD), combined type F90.2 and Posttraumatic stress disorder F43.10 [facility] [address] [id number] Feb, Dental examination Z01.20 [facility] [address] [address] Jan, Bipolar disorder, unspecified F31.9 [facility] [address] [address] Jan, Attention deficit hyperactivity disorder (ADHD), combined type F90.2 [facility] [address] [address] Dec, Posttraumatic stress disorder F43.10 [facility] [address] [address] Dec, Posttraumatic stress disorder F43.10 [facility] [address] [id number] Nov, Dental examination Z01.20 [facility] [address] [id number] Nov, 2017 Encounter for dental exam and cleaning w /o abnormal findings Z01.20 [facility] [address] [id number] [place] [id number] 03 Nov, 2017 Dental examination Z01.20 [facility] [address] [address] 08 Sep, 2017 Bipolar disorder, unspecified F31.9 ; Po sttraumatic stress disorder F43.10 and Attention deficit hyperactivity disorder (ADHD), combined type F90.2 [facility] [address] [address] 09 Aug, 2017 Posttraumatic stress disorder F43.10 [facility] [address] [address] 15 Jul, 2017 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 Z [address] [address] 11 Jul, 2017 Bipolar disorder, unspecified F31.9 ; At tention deficit hyperactivity disorder (ADHD), combined type F90.2 and Posttraumatic stress disorder F43.10 [facility] [address] [address] 09 Jun, 2017 Bipolar disorder, unspecified F31.9 ; Po sttraumatic stress disorder F43.10 ; Attention deficit hyperactivity disorder (ADHD), combined type F90.2 and 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 Z79.899 [facility] [address] [address] 10 Mar, 2017 Bipolar disorder, unspecified F31.9 ; Po sttraumatic stress disorder F43.10 and Attention deficit hyperactivity disorder (ADHD), combined type F90.2 [facility] [address] [address] 08 Dec, 2016 Bipolar disorder, unspecified F31.9 ; Po sttraumatic stress disorder F43.10 and Attention deficit hyperactivity disorder (ADHD), combined type F90.2 [facility] [address] [address] Dec, [facility] [address] [id number] [place] [address] Sep, [facility] [address] [address] Aug, Bipolar disorder, unspecified F31.9 ; sttraumatic stress disorder F43.10 and Attention deficit hyperactivity disorder (ADHD), combined type F90.2 [facility] [address] [address] Jun, [facility] [address] [address] March, [facility] [address] [address] Feb, Bipolar disorder, unspecified F31.9 ; At tention deficit hyperactivity disorder (ADHD), combined type F90.2 and Posttraumatic stress disorder F43.10 [facility] [address] [address] Feb, [facility] [address] [id number] [place] [address] Feb, [facility] [address] [address] Feb, [facility] [address] [id number] [place] [address] Jan, [facility] [address] [id number] [place] [id number] Dec, Dental examination Z01.20 [facility] [address] [id number] [place] [address] Sep, [facility] [address] [address] Sep, Attention deficit hyperactivity disorder (ADHD), combined type F90.2 ; Posttraumatic stress disorder F43.10 and Bipolar disorder, unspecified F31.9 [facility] [address] [address] Aug, [facility] [address] [id number] [place] [address] Aug, [facility] [address] [id number] [place] [address] Jul, [facility] [address] [id number] [place] [address] May, Bipolar disorder, unspecified 296.80 ; A ttention deficit 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.00 and Posttraumatic stress disorder 309.81 [facility] [address] [id number] [place] [address] May, [facility] [address] [id number] [place] [address] May, [facility] [id number] [place] [address] May, [facility] [id number] [place] [address] Apr, [facility] [id number] [place] [address] Apr, [facility] [id number] [place] [address] Apr, [facility] [id number] [place] [address] March, [facility] [id number] [place] [address] March, [facility] [address] [id number] [place] [address] March, [facility] [id number] [place] [address] Feb, [facility] [address] [id number] [place] [address] Feb, [facility] [address] [id number] [place] [address] Jan, [facility] [address] [id number] [place] [address] 30 Jan, 2015 [facility] [address] [id number] [facility] [place] [address] Jan, [facility] [address] [id number] [facility] [place] [address] Jan, [facility] [address] [id number] [facility] [place] [address] Jan, [facility] [address] [id number] [facility] [place] [address] Jan, 2014 [facility] [address] [id number] [facility] [place] [address] Jan, [facility] [address] [id number] [facility] [address] Jan, [facility] [address] [id number] [place] [address] Jan, [facility] [address] [id number] [place] [address] Jan, 2014 [facility] [address] [id number] [place] [address] Dec, 2014 [facility] [address] [id number] [place] [address] Dec, 2014 [facility] [address] [id number] [place] [address] Dec, 2014 [facility] [address] [id number] [place] [address] Dec, 2014 [facility] [address] [id number] [place] [address] Oct, [facility] [address] [id number] [place] [address] Oct, [facility] [address] [id number] [place] [address] Oct, [facility] [address] [id number] [place] [address] Oct, [facility] [address] [id number] [place] [address] Oct, [facility] [address] [id number] [place] [address] Oct, [facility] [address] [id number] [place] [address] Oct, [facility] [address] [id number] [place] [address] Sep, [facility] [address] [id number] [place] [address] Sep, [facility] [address] [id number] [place] [address] Sep, [facility] [address] [id number] [place] [address] Sep, [facility] [id number] [place] [address] Sep, [facility] [address] [id number] [place] [address] Sep, [facility] [address] [id number] [place] [address] Sep, [facility] [address] [id number] [place] [address] Sep, [facility] [address] [id number] [place] [address] Aug, [facility] [address] [id number] [place] [address] Aug, [facility] [address] [id number] [place] [address] Aug, [facility] [id number] [place] [address] Aug, [facility] [address] [id number] [place] [address] Jul, [facility] [address] [id number] [place] [address] Jul, [facility] [address] [id number] [place] [address] Jul, [facility] [address] [facility] [id number] [facility] [place] [address] Jul, [facility] [address] [facility] [id number] [place] [address] Jun, [facility] [address] [facility] [id number] [facility] [place] [address] Jun, [facility] [address] [facility] [id number] [place] [address] Jun, [facility] [address] [id number] [place] [address] Jun, [facility] [address] [id number] [place] [address] May, [facility] [address] [id number] [place] [address] May, [facility] [address] [id number] [place] [address] May, [facility] [address] [id number] [place] [address] May, [facility] [address] [id number] [place] [address] Apr, [facility] [address] [id number] [place] [address] Apr, [facility] [address] [facility] [id number] [place] [address] Apr, [facility] [address] [id number] [place] [address] Apr, [facility] [address] [id number] [place] [address] Apr, [facility] [address] [id number] [place] [address] Apr, [facility] [address] [id number] [facility] [address] Apr, [facility] [address] [facility] [id number] [facility] [place] [address] Apr, [facility] [address] [facility] [id number] [facility] [place] [address] Apr, [facility] [address] [id number] [facility] [address] Apr, [facility] [address] [facility] [id number] [facility] [address] Apr, [facility] [address] [facility] [id number] [facility] [address] Apr, [facility] [address] [id number] [place] [address] Apr, [facility] [address] [id number] [place] [address] March, [facility] [address] [id number] [place] [address] March, [facility] [address] [id number] [facility] [address] March, [facility] [address] [id number] [place] [address] March, [facility] [address] [id number] [place] [address] Jan, [facility] [address] [id number] [facility] [address] Jan, [facility] [address] [facility] [id number] [place] [address] Jan, [facility] [address] [id number] [place] [address] Jan, [facility] [address] [id number] [place] [address] Jan, [facility] [address] [id number] [place] [address] Jan, [facility] [address] [id number] [place] [address] Dec, [facility] [address] [id number] [place] [address] Dec, [facility] [address] [id number] [place] [address] Dec, [facility] [address] [id number] [place] [address] Dec, [facility] [address] [id number] [place] [address] Nov, [facility] [address] [id number] [place] [address] Nov, [facility] [address] [id number] [place] [address] Nov, [facility] [id number] [place] [address] Nov, [facility] [id number] [place] [address] Oct, [facility] [address] [id number] [place] [address] Oct, [facility] [id number] [place] [address] Oct, [facility] [id number] [place] [address] Oct, [facility] [address] [id number] [place] [address] Oct, [facility] [address] [id number] [place] [address] Oct, [facility] [id number] [place] [address] Oct, [facility] [address] [id number] [place] [address] Oct, [facility] [id number] [place] [address] Sep, [facility] [address] [id number] [place] [address] Sep, [facility] [address] [id number] [place] [address] Jul, [facility] [address] [id number] [place] [address] Jul, [facility] [address] [id number] [place] [address] Jul, [facility] [address] [id number] [place] [address] Jul, [facility] [address] [id number] [place] [address] Jun, [facility] [address] [id number] [place] [address] Jun, [facility] [address] [id number] [place] [address] May, [facility] [address] [id number] [place] [address] Apr, [facility] [address] [id number] [place] [address] Apr, [facility] [address] [id number] [place] [address] Apr, [facility] [address] [id number] [place] [address] March, [facility] [address] [id number] [place] [address] March, [facility] [address] [id number] [place] [address] Feb, [facility] [address] [id number] [place] [address] Jan, [facility] [address] [id number] [place] [address] Jan, [facility] [address] [id number] [place] [address] Dec, [facility] [address] [id number] [place] [address] Dec, [facility] [address] [id number] [place] [address] Nov, [facility] [id number] [place] [address] Nov, [facility] [id number] [place] [address] Nov, [facility] [address] [id number] [place] [address] Oct, [facility] [id number] [place] [address] Oct, [facility] [id number] [place] [address] Oct, [facility] [id number] [place] [address] Oct, [facility] [id number] [place] [address] Sep, [facility] [id number] [place] [address] Sep, [facility] [id number] [place] [address] Sep, [facility] [id number] [place] [address] Sep, [facility] [address] [id number] [place] [address] Sep, [facility] [id number] [place] [address] Sep, [facility] [address] [id number] [place] [address] Aug, [facility] [id number] [place] [address] Jul, [facility] [id number] [place] [address] 19 Jul, 2012 [facility] [address] [id number] [place] [address] 18 Jul, 2012 [facility] [address] [id number] [place] [address] Jul, [facility] [address] [id number] [place] [address] Jun, [facility] [address] [id number] [place] [address] Jun, [facility] [address] [id number] [place] [address] Jun, [facility] [address] [id number] [place] [address] Jun, [facility] [address] [id number] [place] [address] May, [facility] [address] [id number] [place] [address] Apr, [facility] [address] [id number] [place] [address] March, [facility] [address] [id number] [place] [address] March, [facility] [address] [id number] [place] [address] March, [facility] [address] [id number] [place] [address] Feb, [facility] [address] [id number] [place] [address] Feb, [facility] [address] [id number] [place] [address] Jan, [facility] [address] [id number] [place] [address] Jan, [facility] [address] [id number] [place] [address] Jan, [facility] [address] [id number] [place] [address] Dec, [facility] [address] [id number] [place] [address] Dec, [facility] [address] [id number] [place] [address] Nov, [facility] [address] [id number] [place] [address] Nov, [facility] [address] [id number] [place] [address] Nov, [facility] [address] [id number] [place] [address] Nov, [facility] [address] [id number] [place] [address] Nov, [facility] [address] [id number] [place] [address] Oct, [facility] [address] [id number] [place] [address] Oct, [facility] [id number] [place] [address] Oct, [facility] [address] [id number] [place] [address] Oct, [facility] [address] [id number] [place] [address] Sep, [facility] [address] [id number] [place] [address] Sep, [facility] [address] [id number] [place] [address] Sep, [facility] [address] [id number] [place] [address] Aug, [facility] [address] [id number] [place] [address] Oct, [facility] [address] [id number] [place] [address] Oct, [facility] [address] [id number] [place] [address] Oct, [facility] [address] [id number] [place] [address] Oct, IMMUNIZATIONS No Known Immunizations SOCIAL HISTORY [...]
--- OUTSIDE RECORDS SUMMARY | 2020-04-25 14:51 | XMS REPORT ---
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 Name Role Phone Migration, Doctor Unavailable Unavailable PROBLEMS Type Condition ICD9-CM Code [id number] Code Onset Dates Condition S tatus SNOMED Code Problem Encounter for long-term (current) use of other medications V58.69 Active 258074394 Problem Posttraumatic stress disorder F43.10 Active 87493620 Problem Bipolar disorder, unspecified F31.9 Active 51115929 Problem 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 Active 17456137 Problem Posttraumatic stress disorder 309.81 Active 19372773 Problem Bipolar disorder, unspecified 296.80 Active 12069194 Problem Attention deficit hyperactivity disorder (ADHD), combi dylon type F90.2 Active [id number] ALLERGIES No Information ENCOUNTERS Encounter Location Date Diagnosis [place] [address] [address] Dec, [place]REACH [place] [address] [facility] [address] [id number] [place] [address] Dec, [place] [address] [address] Nov, Bipolar disorder, unspecified F31.9 [place] [address] [address] Oct, [place] [address] [address] Oct, Bipolar disorder, unspecified F31.9 [place] [address] [address] Sep, Bipolar disorder, unspecified F31.9 ; At tention deficit hyperactivity disorder (ADHD), combined type F90.2 and Posttraumatic stress disorder F43.10 [place] [address] [address] Sep, Bipolar disorder, unspecified F31.9 [facility] [address] [place] [address] [id number] [place] [address] Sep, Dental examination Z01.20 an d Oral health maintenance status requiring routine preventive dental care K08.9 [facility] [address] [id number] [place] [address] Aug, Bipolar disorder, unspecified F31.9 [facility] [address] [id number] [place] [address] Jul, Bipolar disorder, unspecified F31.9 [facility] [address] [place] [address] [id number] [place] [address] Jun, Bipolar disorder, unspecified F31.9 ; Po sttraumatic stress disorder F43.10 ; Attention deficit hyperactivity disorder (ADHD), combined type F90.2 and 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 OUTREACH [facility] [address] [id number] [place] [address] May, Caries K02.9 OUTREACH [facility] [address] [id number] [place] [address] May, Caries K02.9 OUTREACH [facility] [address] [address] [id number] [place] [address] May, 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 requiring routine preventive dental care K08.9 [facility] [address] [id number] [place] [address] Apr, Bipolar disorder, unspecified F31.9 [facility] [address] [id number] [place] [address] Apr, [facility] [address] [place] [id number] [place] [address] Apr, Bipolar disorder, unspecified F31.9 [facility] [address] [id number] [place] [address] Apr, Bipolar disorder, unspecified F31.9 [facility] [address] [id number] [place] [address] Apr, [facility] [address] [address] March, Bipolar disorder, unspecified F31.9 ; At tention deficit hyperactivity disorder (ADHD), combined type F90.2 ; Posttraumatic stress disorder F43.10 and Other senior living (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 Z79.[address] [id number] [place] [address] March, Dental examination Z01.20 and Caries K02 .9 [facility] [address] [address] Feb, Bipolar disorder, unspecified F31.9 [facility] [address] [address] Jan, Oral health maintenance status requiring routine preventive dental care K08.9 ; Dental examination Z01.20 and Caries K02.9 [facility] [address] [place] [id number] [place] [address] Jan, Bipolar disorder, unspecified F31.9 [facility] [address] [address] Dec, Bipolar disorder, unspecified F31.9 ; At tention deficit hyperactivity disorder (ADHD), combined type F90.2 and Posttraumatic stress disorder F43.10 [facility] [address] [facility] [id number] 100KS [place] [address] Oct, Sore throat J02.9 [facility] [address] [place] [address] [id number] [place] [address] Oct, [facility] [address] [address] Oct, Bipolar disorder, unspecified F31.9 [facility] [address] [id number] [place] [id number] Sep, Oral health maintenance status requiring routine preventive dental care K08.9 [facility] [address] [address] Sep, Bipolar disorder, unspecified F31.9 ; At tention deficit hyperactivity disorder (ADHD), combined type F90.2 and Posttraumatic stress disorder F43.10 [facility] [address] [facility] [id number] 100KS [place] [address] Aug, Lymphadenopathy of left cerv ical region R59.0 [facility] [address] [address] Aug, Encounter for immunization Z23 [facility] [address] [address] Aug, Other senior living (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 Z 79.899 [facility] [address] [address] Jul, Bipolar disorder, unspecified F31.9 [facility] [address] [address] Jun, Bipolar disorder, unspecified F31.9 [facility] [address] [address] Jun, [facility] [address] [address] Jun, Bipolar disorder, unspecified F31.9 ; At tention deficit hyperactivity disorder (ADHD), combined type F90.2 ; Posttraumatic stress disorder F43.10 and Other senior living (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 Z79.899 [facility] [address] [id number] [place] [id number] Jun, Dental examination Z01.20 [facility] [address] [address] May, [facility] [address] [address] Apr, Bipolar disorder, unspecified F31.9 [facility] [address] [address] March, Bipolar disorder, unspecified F31.9 ; At tention deficit hyperactivity disorder (ADHD), combined type F90.2 and Posttraumatic stress disorder F43.10 [facility] [address] [place] [address] Feb, [facility] [address] [facility] [id number] 100KS [place] [address] Feb, Insect bite (nonvenomous), l eft knee, initial encounter S80.262A and Bitten or stung by nonvenomous insect and other nonvenomous arthropods, initial encounter W57.XXXA [facility] [address] [address] Feb, Bipolar disorder, unspecified F31.9 [facility] [address] [place] [id number] Feb, Dental examination Z01.20 [facility] [address] [place] [address] Feb, Bipolar disorder, unspecified F31.9 ; At tention deficit hyperactivity disorder (ADHD), combined type F90.2 and Posttraumatic stress disorder F43.10 [facility] [address] [place] [id number] Feb, Dental examination Z01.20 [facility] [address] [address] Jan, Bipolar disorder, unspecified F31.9 [facility] [address] [address] Jan, Attention deficit hyperactivity disorder (ADHD), combined type F90.2 [facility] [address] [address] Dec, Posttraumatic stress disorder F43.10 [facility] [address] [place] [address] Dec, Posttraumatic stress disorder F43.10 [facility] [address] [id number] Nov, Dental examination Z01.20 [facility] [address] [id number] [place] [id number] Nov, Dental examination Z01.20 [facility] [address] [id number] [place] [id number] Nov, 2017 Encounter for dental exam and cleaning w /o abnormal findings Z01.20 [facility] [address] [address] 08 Sep, 2017 Bipolar disorder, unspecified F31.9 ; Po sttraumatic stress disorder F43.10 and Attention deficit hyperactivity disorder (ADHD), combined type F90.2 [place] [address] [address] 09 Aug, 2017 Posttraumatic stress disorder F43.10 [place] [address] [address] 15 Jul, 2017 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 Z 79.899 [place] [address] [address] 11 Jul, 2017 Bipolar disorder, unspecified F31.9 ; At tention deficit hyperactivity disorder (ADHD), combined type F90.2 and Posttraumatic stress disorder F43.10 [place] [address] [address] 09 Jun, 2017 Bipolar disorder, unspecified F31.9 ; Po sttraumatic stress disorder F43.10 ; Attention deficit hyperactivity disorder (ADHD), combined type F90.2 and Other senior living (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 Z79.899 [facility] [address] [address] March, Bipolar disorder, unspecified F31.9 ; Po sttraumatic stress disorder F43.10 and Attention deficit hyperactivity disorder (ADHD), combined type F90.2 [facility] [address] [place] [id number] 08 Dec, 2016 Bipolar disorder, unspecified F31.9 ; Po sttraumatic stress disorder F43.10 and Attention deficit hyperactivity disorder (ADHD), combined type F90.2 [place] [address] [place] [id number] [place] [address] Dec, [facility] [address] [place] [id number] [place] [address] Sep, [facility] [address] [place] [id number] [place] [address] Aug, Bipolar disorder, unspecified F31.9 ; sttraumatic stress disorder F43.10 and Attention deficit hyperactivity disorder (ADHD), combined type F90.2 [facility] [address] [place] [id number] [place] [address] Jun, [facility] [address] [address] [id number] [place] [address] March, [facility] [address] [address] Feb, Bipolar disorder, unspecified F31.9 ; At tention deficit hyperactivity disorder (ADHD), combined type F90.2 and Posttraumatic stress disorder F43.10 [facility] [address] [id number] [place] [address] Feb, [facility] [address] [address] [id number] [place] [address] Feb, [facility] [address] [place] [address] [id number] [place] [address] Feb, [facility] [address] [place] [id number] [place] [address] Jan, [facility] [address] [id number] [place] [id number] Dec, Dental examination Z01.20 [facility] [address] [place] [address] [id number] [place] [address] Sep, [facility] [address] [place] [address] [id number] [place] [address] Sep, Attention deficit hyperactivity disorder (ADHD), combined type F90.2 ; Posttraumatic stress disorder F43.10 and Bipolar disorder, unspecified F31.9 [facility] [address] [place] [id number] [place] [address] Aug, [facility] [id number] [place] [address] Aug, [facility] [id number] [place] [address] Jul, [facility] [id number] [place] [address] May, Bipolar disorder, unspecified 296.80 ; A ttention deficit 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.00 and Posttraumatic stress disorder 309.81 [facility] [address] [id number] [place] [address] May, [facility] [id number] [place] [address] May, [facility] [id number] [place] [address] May, [facility] [address] [id number] [place] [address] Apr, [facility] [address] [id number] [place] [address] Apr, [facility] [id number] [place] [address] Apr, [facility] [id number] [place] [address] March, [facility] [address] [id number] [place] [address] March, [facility] [id number] [place] [address] March, [facility] [address] [id number] [place] [address] Feb, [facility] [id number] [place] [address] Feb, [facility] [id number] [place] [address] Jan, [facility] [address] [id number] [place] [address] 30 Jan, 2014 [facility] [address] [id number] [place] [address] Jan, 2014 [facility] [address] [id number] [place] [address] Jan, 2014 [facility] [address] [id number] [place] [address] Jan, 2014 [facility] [address] [id number] [place] [address] Jan, 2014 [facility] [address] [id number] [place] [address] Jan, 2014 [facility] [address] [id number] [place] [address] Jan, 2014 [facility] [address] [id number] [place] [address] Jan, 2014 [facility] [address] [id number] [place] [address] Jan, 2014 [facility] [address] [id number] [place] [address] Dec, 2014 [facility] [address] [id number] [place] [address] Dec, 2014 [facility] [address] [id number] [place] [address] Dec, 2014 [facility] [address] [id number] [place] [address] Dec, 2014 [facility] [address] [id number] [place] [address] Oct, [facility] [address] [id number] [place] [address] Oct, [facility] [address] [id number] [place] [address] Oct, [facility] [address] [id number] [place] [address] Oct, [facility] [address] [id number] [place] [address] Oct, [facility] [address] [id number] [place] [address] Oct, [facility] [address] [id number] [place] [address] Oct, [facility] [address] [id number] [place] [address] Sep, [facility] [address] [id number] [place] [address] Sep, [facility] [address] [id number] [place] [address] Sep, [facility] [address] [id number] [place] [address] Sep, [facility] [address] [id number] [place] [address] Sep, [facility] [address] [id number] [place] [address] Sep, [facility] [address] [id number] [place] [address] Sep, [facility] [address] [id number] [place] [address] Sep, [facility] [address] [id number] [place] [address] Aug, [facility] [address] [id number] [place] [address] Aug, [facility] [id number] [place] [address] Aug, [facility] [address] [id number] [place] [address] Aug, [facility] [address] [id number] [place] [address] Jul, [facility] [address] [id number] [facility] [place] [address] Jul, [facility] [address] [facility] [id number] [place] [address] Jul, [facility] [address] [facility] [id number] [place] [address] Jul, [facility] [address] [id number] [place] [address] Jun, [facility] [address] [facility] [id number] [place] [address] Jun, [facility] [address] [facility] [id number] [place] [address] Jun, [facility] [address] [id number] [place] [address] Jun, [facility] [address] [id number] [place] [address] May, [facility] [address] [id number] [place] [address] May, [facility] [address] [id number] [place] [address] May, [facility] [address] [id number] [place] [address] May, [facility] [address] [id number] [place] [address] Apr, [facility] [address] [id number] [place] [address] Apr, [facility] [address] [facility] [id number] [place] [address] Apr, [facility] [address] [id number] [place] [address] Apr, [facility] [address] [id number] [place] [address] Apr, [facility] [address] [id number] [place] [address] Apr, [facility] [address] [facility] [id number] [place] [address] Apr, [facility] [address] [facility] [id number] [facility] [place] [address] Apr, [facility] [address] [id number] [place] [address] Apr, [facility] [address] [id number] [facility] [address] Apr, [facility] [address] [facility] [id number] [place] [address] Apr, [facility] [address] [id number] [place] [address] Apr, [facility] [address] [id number] [place] [address] Apr, [facility] [address] [id number] [place] [address] March, [facility] [address] [id number] [place] [address] March, [facility] [address] [id number] [place] [address] March, [facility] [address] [id number] [place] [address] March, [facility] [address] [id number] [place] [address] Jan, [facility] [address] [id number] [place] [address] Jan, [facility] [address] [id number] [place] [address] Jan, [facility] [address] [id number] [place] [address] Jan, [facility] [address] [id number] [place] [address] Jan, [facility] [address] [id number] [place] [address] Jan, [facility] [address] [id number] [place] [address] Dec, [facility] [address] [id number] [place] [address] Dec, [facility] [address] [id number] [place] [address] Dec, [facility] [address] [id number] [place] [address] Dec, [facility] [address] [id number] [place] [address] Nov, [facility] [address] [id number] [place] [address] Nov, [facility] [address] [id number] [place] [address] Nov, [facility] [address] [id number] [place] [address] Nov, [facility] [address] [id number] [place] [address] Oct, [facility] [address] [id number] [place] [address] Oct, [facility] [address] [id number] [place] [address] Oct, [facility] [address] [id number] [place] [address] Oct, [facility] [address] [id number] [place] [address] Oct, [facility] [id number] [place] [address] Oct, [facility] [address] [id number] [place] [address] Oct, [facility] [address] [id number] [place] [address] Oct, [facility] [address] [id number] [place] [address] Sep, [facility] [address] [id number] [place] [address] Sep, [facility] [address] [id number] [place] [address] Jul, [facility] [address] [id number] [place] [address] Jul, [facility] [address] [id number] [place] [address] Jul, [facility] [address] [id number] [place] [address] Jul, [facility] [address] [id number] [place] [address] Jun, [facility] [address] [id number] [place] [address] Jun, [facility] [address] [id number] [place] [address] May, [facility] [address] [id number] [place] [address] Apr, [facility] [address] [id number] [place] [address] Apr, [facility] [address] [id number] [place] [address] Apr, [facility] [address] [id number] [place] [address] March, [facility] [address] [id number] [place] [address] March, [facility] [address] [id number] [place] [address] Feb, [facility] [address] [id number] [place] [address] Jan, [facility] [address] [id number] [place] [address] Jan, [facility] [address] [id number] [place] [address] Dec, [facility] [address] [id number] [place] [address] Dec, [facility] [address] [id number] [place] [address] Nov, [facility] [address] [id number] [place] [address] Nov, [facility] [address] [id number] [place] [address] Nov, [facility] [address] [id number] [place] [address] Oct, [facility] [address] [id number] [place] [address] Oct, [facility] [address] [id number] [place] [address] Oct, [facility] [address] [id number] [place] [address] Oct, [facility] [address] [id number] [place] [address] Sep, [facility] [address] [id number] [place] [address] Sep, [facility] [address] [id number] [place] [address] Sep, [facility] [address] [id number] [place] [address] Sep, [facility] [address] [id number] [place] [address] Sep, [facility] [address] [id number] [place] [address] Sep, [facility] [address] [id number] [place] [address] Aug, [facility] [address] [id number] [place] [address] 26 Jul, 2012 [facility] [address] [id number] [place] [address] 19 Jul, 2012 [facility] [address] [id number] [place] [address] 18 Jul, 2012 [facility] [address] [id number] [place] [address] 14 Jul, 2012 [facility] [address] [id number] [place] [address] Jun, [facility] [address] [id number] [place] [address] Jun, [facility] [address] [id number] [place] [address] Jun, [facility] [address] [id number] [place] [address] Jun, [facility] [address] [id number] [place] [address] May, [facility] [address] [id number] [place] [address] Apr, [facility] [address] [id number] [place] [address] March, [facility] [address] [id number] [place] [address] March, [facility] [address] [id number] [place] [address] March, [facility] [address] [id number] [place] [address] Feb, [facility] [address] [id number] [place] [address] Feb, [facility] [address] [id number] [place] [address] Jan, [facility] [address] [id number] [place] [address] Jan, [facility] [address] [id number] [place] [address] Jan, [facility] [address] [id number] [place] [address] Dec, [facility] [address] [id number] [place] [address] Dec, [facility] [address] [id number] [place] [address] Nov, [facility] [address] [id number] [place] [address] Nov, [facility] [address] [id number] [place] [address] Nov, [facility] [address] [id number] [place] [address] Nov, [facility] [id number] [place] [address] Nov, [facility] [address] [id number] [place] [address] Oct, [facility] [address] [id number] [place] [address] Oct, [facility] [address] [id number] [place] [address] Oct, [facility] [address] [id number] [place] [address] Oct, [facility] [address] [id number] [place] [address] Sep, [facility] [address] [id number] [place] [address] Sep, [facility] [address] [id number] [place] [address] Sep, [facility] [address] [id number] [place] [address] Aug, [facility] [address] [id number] [place] [address] Oct, [facility] [address] [id number] [place] [address] Oct, [facility] [address] [id number] [place] [address] Oct, [facility] [address] [id number] [place] [address] Oct, IMMUNIZATIONS No Known Immunizations SOCIAL HISTORY [...]
--- OUTSIDE RECORDS SUMMARY | 2020-04-25 14:52 | XMS REPORT ---
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 Name Role Phone Migration, Doctor Unavailable Unavailable PROBLEMS Type Condition ICD9-CM Code [id number] Code Onset Dates Condition S tatus SNOMED Code Problem Encounter for long-term (current) use of other medications V58.69 Active 213463047 Problem Posttraumatic stress disorder F43.10 Active 15139481 Problem Bipolar disorder, unspecified F31.9 Active 02265508 Problem 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 Active 23425075 Problem Posttraumatic stress disorder 309.81 Active 19520756 Problem Bipolar disorder, unspecified 296.80 Active 41933551 Problem Attention deficit hyperactivity disorder (ADHD), combi dylon type F90.2 Active [id number] ALLERGIES No Information ENCOUNTERS Encounter Location Date Diagnosis [facility] [address] [id number] [address] [place] [address] Sep, [facility] [id number] [place] [address] Jul, Bipolar disorder, unspecifie d F31.9 [facility] [address] [id number] [address] [place] [address] Jun, Bipolar disorder, unspecifie d F31.9 ; Posttraumatic stress disorder F43.10 ; Attention deficit hyperactivity disorder (ADHD), combined type F90.2 and Other residential (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 Z79.899 [facility] [address] [id number] [place] [address] May, Caries K02.9 [facility] [address] [id number] [place] [address] May, Caries K02.9 [facility] [address] [facility] [id number] [address] May, 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 requiring routine preventive dental care K08.9 [facility] [address] [id number] [address] [place] [address] Apr, Bipolar disorder, unspecifie d F31.9 [facility] [address] [id number] [address] [place] [address] Apr, [facility] [address] [facility] [id number] [address] [place] [address] Apr, Bipolar disorder, unspecifie d F31.9 [facility] [address] [id number] [address] [place] [address] Apr, Bipolar disorder, unspecifie d F31.9 [facility] [address] [facility] [id number] [address] [place] [address] Apr, [facility] [address] [facility] [id number] [address] [place] [address] March, Bipolar disorder, unspecifie d F31.9 ; Attention deficit hyperactivity disorder (ADHD), combined type F90.2 ; Posttraumatic stress disorder F43.10 and Other residential (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 Z79.899 [facility] SOLIMAN [id number] [place] [address] March, Dental examination Z01.20 and Caries K02 .9 [facility] [address] [facility] [id number] [address] [place] [address] Feb, Bipolar disorder, unspecifie d F31.9 [facility] [address] [facility] [id number] [address] [place] [address] Jan, Oral health maintenance stat requiring routine preventive dental care K08.9 ; Dental examination Z01.20 and Caries K02.9 [facility] [address] [id number] [address] [place] [address] Jan, Bipolar disorder, unspecifie d F31.9 [facility] [address] [facility] [id number] [address] [place] [address] Dec, Bipolar disorder, unspecifie d F31.9 ; Attention deficit hyperactivity disorder (ADHD), combined type F90.2 and Posttraumatic stress disorder F43.10 [facility] [address] [facility] [id number] [address] [place] [address] Oct, Sore throat J02.9 [facility] [address] [facility] [id number] [address] [place] [address] Oct, [facility] [address] [facility] [id number] [address] [place] [address] Oct, Bipolar disorder, unspecifie d F31.9 [facility] [address] [facility] [id number] [address] [place] [address] [id number] Sep, 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 requiring routine preventive dental care K08.9 [facility] [address] [facility] [id number] [address] [place] [address] Sep, Bipolar disorder, unspecifie d F31.9 ; Attention deficit hyperactivity disorder (ADHD), combined type F90.2 and Posttraumatic stress disorder F43.10 [facility] [address] [facility] [id number] [address] [place] [address] Aug, Lymphadenopathy of left cerv ical region R59.0 [facility] [address] [facility] [id number] [address] [place] [address] Aug, Encounter for immunization Z 23 [facility] [address] [id number] [address] [place] [address] Aug, 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.899 [facility] [address] [facility] [id number] [address] [place] [address] Jul, Bipolar disorder, unspecifie d F31.9 [facility] [address] [facility] [id number] [address] [place] [address] Jun, Bipolar disorder, unspecifie d F31.9 [facility] [address] [facility] [id number] [address] [place] [address] Jun, [facility] [address] [facility] [id number] [address] [place] [address] Jun, Bipolar disorder, unspecifie d F31.9 ; Attention deficit hyperactivity disorder (ADHD), combined type F90.2 ; Posttraumatic stress disorder F43.10 and Other residential (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 Z79.899 [facility] [address] [id number] [address] [place] [address] [id number] Jun, Dental examination Z01.20 [facility] [address] [facility] [id number] [address] [place] [address] May, [facility] [address] [facility] [id number] [address] [place] [address] Apr, Bipolar disorder, unspecifie d F31.9 [facility] [address] [facility] [id number] [address] [place] [address] March, Bipolar disorder, unspecifie d F31.9 ; Attention deficit hyperactivity disorder (ADHD), combined type F90.2 and Posttraumatic stress disorder F43.10 [facility] [address] [facility] [id number] [address] [place] [address] Feb, [facility] [address] [facility] [id number] [address] [place] [address] Feb, Insect bite (nonvenomous), l eft knee, initial encounter S80.262A and Bitten or stung by nonvenomous insect and other nonvenomous arthropods, initial encounter W57.XXXA [facility] [address] [facility] [id number] [address] [place] [address] Feb, Bipolar disorder, unspecifie d F31.9 [facility] [address] [id number] [address] [place] [address] [id number] Feb, Dental examination Z01.20 [facility] [address] [facility] [id number] [address] [place] [address] Feb, Bipolar disorder, unspecifie d F31.9 ; Attention deficit hyperactivity disorder (ADHD), combined type F90.2 and Posttraumatic stress disorder F43.10 [facility] [address] [id number] [address] [place] [address] [id number] Feb, Dental examination Z01.20 [facility] [address] [id number] [address] [place] [address] Jan, Bipolar disorder, unspecifie d F31.9 [facility] [address] [id number] [address] [place] [address] Jan, Attention deficit hyperactiv ity disorder (ADHD), combined type F90.2 [facility] [address] [id number] [address] [place] [address] Dec, Posttraumatic stress disorde r F43.10 [facility] [address] [facility] [id number] [address] [place] [address] Dec, Posttraumatic stress disorde r F43.10 [facility] [address] [id number] [address] [place] [address] [id number] Nov, Dental examination Z01.20 [facility] [id number] [place] [address] [id number] Nov, Dental examination Z01.20 [facility] [address] [id number] [address] [place] [address] [id number] Nov, Encounter for dental exam an d cleaning w/o abnormal findings Z01.20 [facility] [address] [id number] [address] [place] [address] Sep, Bipolar disorder, unspecifie d F31.9 ; Posttraumatic stress disorder F43.10 and Attention deficit hyperactivity disorder (ADHD), combined type F90.2 [facility] [address] [facility] [id number] [address] [place] [address] Aug, Posttraumatic stress disorde r F43.10 [facility] [address] [facility] [id number] [address] [place] [address] Jul, 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 Z79.899 [facility] [address] [id number] [address] [place] [address] Jul, Bipolar disorder, unspecifie d F31.9 ; Attention deficit hyperactivity disorder (ADHD), combined type F90.2 and Posttraumatic stress disorder F43.10 [facility] [address] [facility] [id number] [address] [place] [address] Jun, Bipolar disorder, unspecifie d F31.9 ; Posttraumatic stress disorder F43.10 ; Attention deficit hyperactivity disorder (ADHD), combined type F90.2 and 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.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 [facility] [address] [id number] [address] [place] [address] March, Bipolar disorder, unspecifie d F31.9 ; Posttraumatic stress disorder F43.10 and Attention deficit hyperactivity disorder (ADHD), combined type F90.2 [facility] [address] [facility] [id number] [address] [place] [address] Dec, Bipolar disorder, unspecifie d F31.9 ; Posttraumatic stress disorder F43.10 and Attention deficit hyperactivity disorder (ADHD), combined type F90.2 [facility] [address] [facility] [id number] [address] [place] [address] Dec, [facility] [address] [facility] [id number] [address] [place] [address] Sep, [facility] [address] [facility] [id number] [address] [place] [address] Aug, Bipolar disorder, unspecifie d F31.9 ; Posttraumatic stress disorder F43.10 and Attention deficit hyperactivity disorder (ADHD), combined type F90.2 [facility] [address] [facility] [id number] [address] [place] [address] Jun, [facility] [address] [facility] [id number] [address] [place] [address] March, [facility] [address] [facility] [id number] [address] [place] [address] Feb, Bipolar disorder, unspecifie d F31.9 ; Attention deficit hyperactivity disorder (ADHD), combined type F90.2 and Posttraumatic stress disorder F43.10 [facility] [address] [id number] [address] [place] [address] Feb, [facility] [address] [facility] [id number] [address] [place] [phone] Feb, [facility] [address] [facility] [id number] [address] [place] [address] Feb, [facility] [address] [facility] [id number] [address] [place] [phone] Jan, [facility] [address] [facility] [id number] [address] [place] [address] [id number] Dec, Dental examination Z01.20 [facility] [address] [facility] [id number] [address] [place] [id number] Sep, [facility] [address] [facility] [id number] [address] [place] [address] Sep, Attention deficit hyperactiv ity disorder (ADHD), combined type F90.2 ; Posttraumatic stress disorder F43.10 and Bipolar disorder, unspecified F31.9 [facility] [address] [facility] [id number] [address] [place] [phone] Aug, [facility] [address] [facility] [id number] [address] [place] [phone] Aug, [facility] [address] [facility] [id number] [address] [place] [phone] Jul, [facility] [address] [facility] [id number] [address] [place] [address] May, Bipolar disorder, unspecifie d 296.80 ; 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.00 and Posttraumatic stress disorder 309.81 [facility] [address] [facility] [id number] [address] [place] [address] May, [facility] [address] [id number] [address] [place] [address], [place] [address] May, [facility] [address] [id number] [address] [place] [address], [place] [address] May, [facility] [address] [id number] [address] [place] [address], [place] [address] Apr, [facility] [address] [id number] [address] [place] [address], [place] [address] Apr, [facility] [address] [id number] [address] [place] [address], [place] [address] Apr, [facility] [address] [id number] [address] [place] [address], [place] [address] March, [facility] [address] [id number] [address] [place] [address], [place] [address] March, [facility] [address] [id number] [address] [place] [address], [place] [address] March, [facility] [address] [id number] [address] [place] [address], [place] [address] Feb, [facility] [address] [id number] [address] [place] [address], [place] [address] Feb, [facility] [address] [id number] [address] [place] [address], [place] [address] Jan, [facility] [address] [id number] [address] [place] [address], [place] [address] Jan, [facility] [address] [id number] [address] [place] [address], [place] [address] Jan, [facility] [address] [id number] [address] [place] [address], [place] [address] Jan, [facility] [address] [id number] [address] [place] [address], [place] [address] Jan, [facility] [address] [id number] [address] [place] [address], [place] [address] Jan, 2014 [facility] [address] [id number] [address] [place] [address], [place] [address] Jan, 2014 [facility] [address] [id number] [address] [place] [address], [place] [address] Jan, 2014 [facility] [address] [id number] [address] [place] [address], [place] [address] Jan, 2014 [facility] [address] [id number] [address] [place] [address], [place] [address] Jan, 2014 [facility] [address] [id number] [address] [place] [address], [place] [address] Dec, 2014 [facility] [address] [id number] [address] [place] [address], [place] [address] Dec, 2014 [facility] [address] [id number] [address] [place] [address], [place] [address] Dec, 2014 [facility] [address] [id number] [address] [place] [address], [place] [address] Dec, 2014 [facility] [address] [id number] [address] [place] [address], [place] [address] Oct, [facility] [address] [id number] [address] [place] [address], [place] [address] 18 Oct, 2014 [facility] [address] [id number] [address] [place] [address], [place] [address] 18 Oct, 2014 [facility] [address] [id number] [address] [place] [address], [place] [address] 18 Oct, 2014 [facility] [address] [id number] [address] [place] [address], [place] [address] 18 Oct, 2014 [facility] [address] [id number] [address] [place] [address], [place] [address] 05 Oct, 2014 [facility] [address] [id number] [address] [place] [address], [place] [address] Oct, [facility] [address] [id number] [address] [place] [address], [place] [address] Sep, [facility] [address] [id number] [address] [place] [address], [place] [address] Sep, [facility] [address] [id number] [address] [place] [address], [place] [address] Sep, [facility] [address] [id number] [address] [place] [address], [place] [address] Sep, [facility] [address] [id number] [address] [place] [address], [place] [address] Sep, [facility] [address] [id number] [address] [place] [address], [place] [address] Sep, [facility] [address] [id number] [address] [place] [address], [place] [address] Sep, [facility] [address] [id number] [address] [place] [address], [place] [address] Sep, [facility] [address] [id number] [address] [place] [address], [place] [address] Aug, [facility] [address] [id number] [address] [place] [address], [place] [address] Aug, [facility] [address] [id number] [address] [place] [address] Aug, [facility] [address] [id number] [address] [place] [address] Aug, [facility] [address] [id number] [address] [place] [address], [place] [address] Jul, [facility] [address] [id number] [address] [place] [address], [place] [address] 08 Jul, 2014 [facility] [address] [id number] [address] [place] [address], [place] [address] Jul, [facility] [address] [id number] [address] [place] [address], [place] [address] Jul, [facility] [address] [id number] [address] [place] [address], [place] [address] Jun, [facility] [address] [id number] [address] [place] [address], [place] [address] Jun, [facility] [address] [id number] [address] [place] [address], [place] [address] Jun, [facility] [address] [id number] [address] [place] [address], [place] [address] Jun, [facility] [address] [id number] [address] [place] [address], [place] [address] May, [facility] [address] [id number] [address] [place] [address], [place] [address] May, [facility] [address] [id number] [address] [place] [address], [place] [address] May, [facility] [address] [id number] [address] [place] [address], [place] [address] May, [facility] [address] [id number] [address] [place] [address], [place] [address] Apr, [facility] [address] [id number] [address] [place] [address], [place] [address] Apr, [facility] [address] [id number] [address] [place] [address], [place] [address] Apr, [facility] [address] [id number] [address] [place] [address], [place] [address] Apr, [facility] [address] [id number] [address] [place] [address], [place] [address] Apr, [facility] [address] [id number] [address] [place] [address], [place] [address] Apr, [facility] [address] [id number] [address] [place] [address], [place] [address] Apr, [facility] [address] [id number] [address] [place] [address], [place] [address] Apr, [facility] [address] [id number] [address] [place] [address], [place] [address] Apr, [facility] [address] [id number] [address] [place] [address], [place] [address] Apr, [facility] [address] [id number] [address] [place] [address], [place] [address] Apr, [facility] [address] [id number] [address] [place] [address], [place] [address] Apr, [facility] [address] [id number] [address] [place] [address], [place] [address] Apr, [facility] [address] [id number] [address] [place] [address], [place] [address] March, [facility] [address] [id number] [address] [place] [address], [place] [address] March, [facility] [address] [id number] [address] [place] [address], [place] [address] March, [facility] [address] [id number] [address] [place] [address], [place] [address] March, [facility] [address] [id number] [address] [place] [address], [place] [address] Jan, [facility] [address] [id number] [address] [place] [address], [place] [address] Jan, [facility] [address] [id number] [address] [place] [address], [place] [address] Jan, [facility] [address] [id number] [address] [place] [address], [place] [address] Jan, [facility] [address] [id number] [address] [place] [address], [place] [address] Jan, [facility] [address] [id number] [address] [place] [address], [place] [address] Jan, [facility] [address] [id number] [address] [place] [address], [place] [address] Dec, [facility] [address] [id number] [address] [place] [address], [place] [address] Dec, [facility] [address] [id number] [address] [place] [address], [place] [address] Dec, [facility] [address] [id number] [address] [place] [address], [place] [address] Dec, [facility] [address] [id number] [address] [place] [address], [place] [address] Nov, [facility] [address] [id number] [address] [place] [address], [place] [address] Nov, [facility] [address] [id number] [address] [place] [address], [place] [address] Nov, [facility] [address] [id number] [address] [place] [address], [place] [address] Nov, [facility] [address] [id number] [address] [place] [address], [place] [address] Oct, [facility] [address] [id number] [address] [place] [address], [place] [address] Oct, [facility] [address] [id number] [address] [place] [address], [place] [address] Oct, [facility] [address] [id number] [address] [place] [address], [place] [address] Oct, [facility] [address] [id number] [address] [place] [address], [place] [address] Oct, [facility] [address] [id number] [address] [place] [address], [place] [address] Oct, [facility] [address] [id number] [address] [place] [address], [place] [address] Oct, [facility] [address] [id number] [address] [place] [address], [place] [address] Oct, [facility] [address] [id number] [address] [place] [address], [place] [address] Sep, [facility] [address] [id number] [address] [place] [address], [place] [address] Sep, [facility] [address] [id number] [address] [place] [address], [place] [address] Jul, [facility] [address] [id number] [address] [place] [address], [place] [address] Jul, [facility] [address] [id number] [address] [place] [address], [place] [address] Jul, [facility] [address] [id number] [address] [place] [address], [place] [address] Jul, [facility] [address] [id number] [address] [place] [address], [place] [address] Jun, [facility] [address] [id number] [address] [place] [address], [place] [address] Jun, [facility] [address] [id number] [address] [place] [address], [place] [address] May, [facility] [address] [id number] [address] [place] [address], [place] [address] Apr, [facility] [address] [id number] [address] [place] [address], [place] [address] Apr, [facility] [address] [id number] [address] [place] [address], [place] [address] Apr, [facility] [address] [id number] [address] [place] [address], [place] [address] March, [facility] [address] [id number] [address] [place] [address], [place] [address] March, [facility] [address] [id number] [address] [place] [address], [place] [address] Feb, [facility] [address] [id number] [address] [place] [address], [place] [address] Jan, [facility] [address] [id number] [address] [place] [address], [place] [address] Jan, [facility] [address] [id number] [address] [place] [address], [place] [address] Dec, [facility] [address] [id number] [address] [place] [address], [place] [address] Dec, [facility] [address] [id number] [address] [place] [address], [place] [address] Nov, [facility] [address] [id number] [address] [place] [address], [place] [address] Nov, [facility] [address] [id number] [address] [place] [address], [place] [address] Nov, [facility] [address] [id number] [address] [place] [address], [place] [address] Oct, [facility] [address] [id number] [address] [place] [address], [place] [address] Oct, [facility] [address] [id number] [address] [place] [address], [place] [address] Oct, [facility] [address] [id number] [address] [place] [address], [place] [address] Oct, [facility] [address] [id number] [address] [place] [address], [place] [address] Sep, [facility] [address] [id number] [address] [place] [address], [place] [address] Sep, [facility] [address] [id number] [address] [place] [address], [place] [address] Sep, [facility] [address] [id number] [address] [place] [address], [place] [address] Sep, [facility] [address] [id number] [address] [place] [address], [place] [address] 15 Sep, 2012 [facility] [address] [id number] [address] [place] [address], [place] [address] 15 Sep, 2012 [facility] [address] [id number] [address] [place] [address], [place] [address] Aug, [facility] [address] [id number] [address] [place] [address], [place] [address] 26 Jul, 2012 [facility] [address] [id number] [address] [place] [address], [place] [address] 19 Jul, 2012 [facility] [address] [id number] [address] [place] [address], [place] [address] 18 Jul, 2012 [facility] [address] [id number] [address] [place] [address], [place] [address] 14 Jul, 2012 [facility] [address] [id number] [address] [place] [address], [place] [address] Jun, [facility] [address] [id number] [address] [place] [address], [place] [address] Jun, [facility] [address] [id number] [address] [place] [address], [place] [address] Jun, [facility] [address] [id number] [address] [place] [address], [place] [address] Jun, [facility] [address] [id number] [address] [place] [address], [place] [address] May, [facility] [address] [id number] [address] [place] [address], [place] [address] Apr, [facility] [address] [id number] [address] [place] [address], [place] [address] March, [facility] [address] [id number] [address] [place] [address], [place] [address] March, [facility] [address] [id number] [address] [place] [address], [place] [address] March, [facility] [address] [id number] [address] [place] [address], [place] [address] Feb, [facility] [address] [id number] [address] [place] [address], [place] [address] Feb, [facility] [address] [id number] [address] [place] [address], [place] [address] Jan, [facility] [address] [id number] [address] [place] [address], [place] [address] Jan, [facility] [address] [id number] [address] [place] [address], [place] [address] Jan, [facility] [address] [id number] [address] [place] [address], [place] [address] Dec, [facility] [address] [id number] [address] [place] [address], [place] [address] Dec, [facility] [address] [id number] [address] [place] [address], [place] [address] Nov, [facility] [address] [id number] [address] [place] [address], [place] [address] Nov, [facility] [address] [id number] [address] [place] [address], [place] [address] Nov, [facility] [address] [id number] [address] [place] [address], [place] [address] Nov, [facility] [address] [id number] [address] [place] [address], [place] [address] Nov, [facility] [address] [id number] [address] [place] [address], [place] [address] Oct, [facility] [address] [id number] [address] [place] [address], [place] [address] Oct, [facility] [address] [id number] [address] [place] [address], [place] [address] Oct, [facility] [address] [id number] [address] [place] [address] Oct, [facility] [address] [id number] [address] [place] [address] Sep, [facility] [address] [id number] [address] [place] [address] Sep, [facility] [address] [id number] [address] [place] [address] Sep, [facility] [address] [id number] [address] [place] [address] Aug, [facility] [address] [id number] [address] [place] [address] Oct, [facility] [address] [id number] [address] [place] [address] Oct, [facility] [address] [id number] [address] [place] [address] Oct, [facility] [address] [id number] [address] [place] [address] Oct, IMMUNIZATIONS No Known Immunizations SOCIAL HISTORY [...]
--- OUTSIDE RECORDS SUMMARY | 2020-04-25 14:52 | XMS REPORT ---
Author Author Ronna Barnes Organization 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 [address] [id number] [address] [place] [address] Sep, [facility] [address] [id number] [address] [place] [address] Jul, Bipolar disorder, unspecifie d F31.9 [facility] [address] [id number] [address] [place] [address] Jun, Bipolar disorder, unspecifie d F31.9 ; Posttraumatic stress disorder F43.10 ; Attention deficit hyperactivity disorder (ADHD), combined type F90.2 and Other chcf (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 Z79.899 [facility] [address] [id number] [place] [address] May, Caries K02.9 [facility] [address] [id number] [place] [address] May, Caries K02.9 [facility] [address] [id number] [address] May, Oral health maintenance stat requiring routine preventive dental care K08.9 [facility] [address] [facility] [id number] [address] [place] [address] Apr, Bipolar disorder, unspecifie d F31.9 [facility] [address] [facility] [id number] [address] [place] [address] Apr, [facility] [address] [facility] [id number] [address] [place] [address] Apr, Bipolar disorder, unspecifie d F31.9 [facility] [address] [facility] [id number] [address] [place] [address] Apr, Bipolar disorder, unspecifie d F31.9 [facility] [address] [facility] [id number] [address] [place] [address] Apr, [facility] [address] [facility] [id number] [address] [place] [address] March, Bipolar disorder, unspecifie d F31.9 ; Attention deficit hyperactivity disorder (ADHD), combined type F90.2 ; Posttraumatic stress disorder F43.10 and Other chcf (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 Z79.899 [facility] [place] [address] [id number] [address] March, Dental examination Z01.[address]02 [address] [facility] [address] [facility] [id number] [address] [place] [address] Feb, Bipolar disorder, unspecifie d F31.9 [facility] [address] [facility] [id number] [address] [place] [address] Jan, Oral health maintenance stat requiring routine preventive dental care K08.9 ; Dental examination Z01.[address] [facility] [address] [facility] [id number] [address] [place] [address] Jan, Bipolar disorder, unspecifie d F31.9 [facility] [address] [facility] [id number] [address] [place] [address] Dec, Bipolar disorder, unspecifie d F31.9 ; Attention deficit hyperactivity disorder (ADHD), combined type F90.2 and Posttraumatic stress disorder F43.10 [facility] [address] [facility] [id number] [address] [place] [address] Oct, Sore throat J02.9 [facility] [address] [facility] [id number] [address] [place] [address] Oct, [facility] [address] [facility] [id number] [address] [place] [address] Oct, Bipolar disorder, unspecifie d F31.9 [facility] [address] [facility] [id number] [address] [place] [address] [id number] Sep, 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 requiring routine preventive dental care K08.9 [facility] [address] [facility] [id number] [address] [place] [address] Sep, Bipolar disorder, unspecifie d F31.9 ; Attention deficit hyperactivity disorder (ADHD), combined type F90.2 and Posttraumatic stress disorder F43.10 [facility] [address] [id number] [address] [place] [address] Aug, Lymphadenopathy of left cerv ical region R59.0 [address] [id number] [place] [address] Aug, Encounter for immunization Z 23 [facility] [address] [facility] [id number] [address] [place] [address] Aug, Other chcf (current) dr nubia briceno Z79.899 [address] [address] [id number] [address] [place] [address] Jul, Bipolar disorder, unspecifie d F31.9 [facility] [address] [facility] [id number] [address] [place] [address] Jun, Bipolar disorder, unspecifie d F31.9 [facility] [address] [id number] [address] [place] [address] Jun, [facility] [address] [facility] [id number] [address] [place] [address] Jun, Bipolar disorder, unspecifie d F31.9 ; Attention deficit hyperactivity disorder (ADHD), combined type F90.2 ; Posttraumatic stress disorder F43.10 and Other chcf (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 Z79.899 [facility] [address] [id number] [address] [place] [address] [id number] Jun, Dental examination Z01.20 [facility] [address] [facility] [id number] [address] [place] [address] May, [facility] [address] [facility] [id number] [place] [address] Apr, Bipolar disorder, unspecifie d F31.9 [facility] [address] [facility] [id number] [address] [place] [address] March, Bipolar disorder, unspecifie d F31.9 ; Attention deficit hyperactivity disorder (ADHD), combined type F90.2 and Posttraumatic stress disorder F43.10 [facility] [address] [facility] [id number] [address] [place] [address] Feb, [facility] [address] [facility] [id number] [address] [place] [address] Feb, Insect bite (nonvenomous), l eft knee, initial encounter S80.262A and Bitten or stung by nonvenomous insect and other nonvenomous arthropods, initial encounter W57.XXXA [facility] [address] [facility] [id number] [address] [place] [address] Feb, Bipolar disorder, unspecifie d F31.9 [facility] [address] [id number] [address] [place] [id number] Feb, Dental examination Z01.20 [facility] [address] [facility] [id number] [address] [place] [address] Feb, Bipolar disorder, unspecifie d F31.9 ; Attention deficit hyperactivity disorder (ADHD), combined type F90.2 and Posttraumatic stress disorder F43.10 [facility] [address] [id number] [address] [place] [address] [id number] Feb, Dental examination Z01.20 [facility] [address] [facility] [id number] [address] [place] [address] Jan, Bipolar disorder, unspecifie d F31.9 [facility] [address] [id number] [address] [place] [address] Jan, Attention deficit hyperactiv ity disorder (ADHD), combined type F90.2 [facility] [address] [facility] [id number] [address] [place] [address] Dec, Posttraumatic stress disorde r F43.10 [facility] [address] [facility] [id number] [address] [place] [address] Dec, Posttraumatic stress disorde r F43.10 [facility] [address] [id number] [address] [place] [id number] Nov, Dental examination Z01.20 [facility] [address] [id number] [address] [place] [address] [id number] Nov, Encounter for dental exam an d cleaning w/o abnormal findings Z01.20 [facility] [address] [id number] [address] [place] [address] [id number] Nov, Dental examination Z01.20 [facility] [address] [facility] [id number] [address] [place] [address] Sep, Bipolar disorder, unspecifie d F31.9 ; Posttraumatic stress disorder F43.10 and Attention deficit hyperactivity disorder (ADHD), combined type F90.2 [facility] [address] [facility] [id number] [address] [place] [address] Aug, Posttraumatic stress disorde r F43.10 [facility] [address] [id number] [address] [place] [address] 15 Jul, 2017 Other chcf (current) dr ug therapy Z79.899 [facility] [address] [id number] [address] [place] [address] 11 Jul, 2017 Bipolar disorder, unspecifie d F31.9 ; Attention deficit hyperactivity disorder (ADHD), combined type F90.2 and Posttraumatic stress disorder F43.10 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 [address] [facility] [id number] [address] [place] [address] 10 Mar, 2017 Bipolar disorder, unspecifie d F31.9 ; Posttraumatic stress disorder F43.10 and Attention deficit hyperactivity disorder (ADHD), combined type F90.2 [facility] [address] [id number] [address] [place] [address] Dec, Bipolar disorder, unspecifie d F31.9 ; Posttraumatic stress disorder F43.10 and Attention deficit hyperactivity disorder (ADHD), combined type F90.2 [facility] [address] [facility] [id number] [address] [place] [address] Dec, [facility] [address] [id number] [address] [place] [address] Sep, [facility] [address] [id number] [address] [place] [address] Aug, Bipolar disorder, unspecifie d F31.9 ; Posttraumatic stress disorder F43.10 and Attention deficit hyperactivity disorder (ADHD), combined type F90.2 [facility] [address] [id number] [address] [place] [address] Jun, [facility] [address] [id number] [address] [place] [address] March, [facility] [address] [facility] [id number] [address] [place] [address] Feb, Bipolar disorder, unspecifie d F31.9 ; Attention deficit hyperactivity disorder (ADHD), combined type F90.2 and Posttraumatic stress disorder F43.10 [facility] [address] [id number] [address] [place] [address] Feb, [facility] [address] [facility] [id number] [address] [place] [address] Feb, [facility] [address] [facility] [id number] [address] [place] [address] Feb, [facility] [address] [facility] [id number] [address] [place] [address] Jan, [facility] [address] [id number] [address] [place] [address] [id number] Dec, Dental examination Z01.20 [facility] [address] [facility] [id number] [address] [place] [address] Sep, [facility] [address] [facility] [id number] [address] [place] [address] Sep, Attention deficit hyperactiv ity disorder (ADHD), combined type F90.2 ; Posttraumatic stress disorder F43.10 and Bipolar disorder, unspecified F31.9 [facility] [address] [facility] [id number] [address] [place] [address] Aug, [facility] [address] [facility] [id number] [address] [place] [address] Aug, [facility] [address] [facility] [id number] [address] [place] [address] Jul, [facility] [address] [facility] [id number] [address] [place] [address] May, Bipolar disorder, unspecifie d 296.80 ; 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.00 and Posttraumatic stress disorder 309.81 [facility] [address] [id number] [address] [place] [address], [place] [address] May, [facility] [address] [id number] [address] [place] [address] May, [facility] [address] [id number] [address] [place] [address] May, [facility] [address] [id number] [address] [place] [address] Apr, [facility] [address] [id number] [address] [place] [address], [place] [address] Apr, [facility] [address] [id number] [address] [place] [address] Apr, [facility] [address] [id number] [address] [place] [address] March, [facility] [address] [id number] [address] [place] [phone] March, [facility] [address] [id number] [address] [place] [address] March, [facility] [address] [id number] [address] [place] [address] Feb, [facility] [address] [id number] [address] [place] [address] Feb, [facility] [address] [id number] [address] [place] [address] Jan, [facility] [address] [id number] [address] [place] [address] Jan, [facility] [address] [id number] [address] [place] [address] Jan, [facility] [address] [id number] [address] [place] [address] Jan, [facility] [address] [id number] [address] [place] [address] Jan, 2014 [facility] [address] [id number] [address] [place] [address], [place] [address] Jan, 2014 [facility] [address] [id number] [address] [place] [address], [place] [address] Jan, 2014 [facility] [address] [id number] [address] [place] [address], [place] [address] Jan, 2014 [facility] [address] [id number] [address] [place] [address], [place] [address] Jan, 2014 [facility] [address] [id number] [address] [place] [address], [place] [address] Jan, 2014 [facility] [address] [id number] [address] [place] [address], [place] [address] Dec, 2014 [facility] [address] [id number] [address] [place] [address], [place] [address] Dec, 2014 [facility] [address] [id number] [address] [place] [address], [place] [address] Dec, 2014 [facility] [address] [id number] [address] [place] [address], [place] [address] Dec, 2014 [facility] [address] [id number] [address] [place] [address], [place] [address] Oct, [facility] [address] [id number] [address] [place] [address], [place] [address] 18 Oct, 2014 [facility] [address] [id number] [address] [place] [address], [place] [address] Oct, [facility] [address] [id number] [address] [place] [address], [place] [address] Oct, [facility] [address] [id number] [address] [place] [address], [place] [address] Oct, [facility] [address] [id number] [address] [place] [address], [place] [address] 05 Oct, 2014 [facility] [address] [id number] [address] [place] [address], [place] [address] Oct, [facility] [address] [id number] [address] [place] [address], [place] [address] Sep, [facility] [address] [id number] [address] [place] [address], [place] [address] Sep, [facility] [address] [id number] [address] [place] [address], [place] [address] Sep, [facility] [address] [id number] [address] [place] [address], [place] [address] Sep, [facility] [address] [id number] [address] [place] [address], [place] [address] Sep, [facility] [address] [id number] [address] [place] [address], [place] [address] Sep, [facility] [address] [id number] [address] [place] [address], [place] [address] Sep, [facility] [address] [id number] [address] [place] [address], [place] [address] Sep, [facility] [address] [id number] [address] [place] [address], [place] [address] Aug, [facility] [address] [id number] [address] [place] [address], [place] [address] Aug, [facility] [address] [id number] [address] [place] [address], [place] [address] Aug, [facility] [address] [id number] [address] [place] [address], [place] [address] Aug, [facility] [address] [id number] [address] [place] [address], [place] [address] Jul, [facility] [address] [id number] [address] [place] [address], [place] [address] 08 Jul, 2014 [facility] [address] [id number] [address] [place] [address], [place] [address] Jul, [facility] [address] [id number] [address] [place] [address], [place] [address] Jul, [facility] [address] [id number] [address] [place] [address], [place] [address] Jun, [facility] [address] [id number] [address] [place] [address], [place] [address] Jun, [facility] [address] [id number] [address] [place] [address], [place] [address] Jun, [facility] [address] [id number] [address] [place] [address], [place] [address] Jun, [facility] [address] [id number] [address] [place] [address], [place] [address] May, [facility] [address] [id number] [address] [place] [address], [place] [address] May, [facility] [address] [id number] [address] [place] [address], [place] [address] May, [facility] [address] [id number] [address] [place] [address], [place] [address] May, [facility] [address] [id number] [address] [place] [address], [place] [address] Apr, [facility] [address] [id number] [address] [place] [address], [place] [address] Apr, [facility] [address] [id number] [address] [place] [address], [place] [address] Apr, [facility] [address] [id number] [address] [place] [address], [place] [address] Apr, [facility] [address] [id number] [address] [place] [address], [place] [address] Apr, [facility] [address] [id number] [address] [place] [address], [place] [address] Apr, [facility] [address] [id number] [facility] [address] Apr, [facility] [address] [id number] [facility] [address] Apr, [facility] [address] [id number] [facility] [address] Apr, [facility] [address] [id number] [address] [place] [address], [place] [address] Apr, [facility] [address] [id number] [address] [place] [address], [place] [address] Apr, [facility] [address] [id number] [address] [place] [address], [place] [address] Apr, [facility] [address] [id number] [address] [place] [address], [place] [address] Apr, [facility] [address] [id number] [address] [place] [address], [place] [address] March, [facility] [address] [id number] [address] [place] [address], [place] [address] March, [facility] [address] [id number] [address] [place] [address], [place] [address] March, [facility] [address] [id number] [address] [place] [address], [place] [address] March, [facility] [address] [id number] [address] [place] [address], [place] [address] Jan, [facility] [address] [id number] [address] [place] [address], [place] [address] Jan, [facility] [address] [id number] [address] [place] [address], [place] [address] Jan, [facility] [address] [id number] [address] [place] [address], [place] [address] Jan, [facility] [address] [id number] [address] [place] [address], [place] [address] Jan, [facility] [address] [id number] [address] [place] [address], [place] [address] Jan, [facility] [address] [id number] [address] [place] [address], [place] [address] Dec, [facility] [address] [id number] [address] [place] [address], [place] [address] Dec, [facility] [address] [id number] [address] [place] [address], [place] [address] Dec, [facility] [address] [id number] [address] [place] [address], [place] [address] Dec, [facility] [address] [id number] [address] [place] [address], [place] [address] Nov, [facility] [address] [id number] [address] [place] [address], [place] [address] Nov, [facility] [address] [id number] [address] [place] [address], [place] [address] Nov, [facility] [address] [id number] [address] [place] [address], [place] [address] Nov, [facility] [address] [id number] [address] [place] [address], [place] [address] Oct, [facility] [address] [id number] [address] [place] [address], [place] [address] Oct, [facility] [address] [id number] [address] [place] [address], [place] [address] Oct, [facility] [address] [id number] [address] [place] [address], [place] [address] Oct, [facility] [address] [id number] [address] [place] [address], [place] [address] Oct, [facility] [address] [id number] [address] [place] [address], [place] [address] Oct, [facility] [address] [id number] [address] [place] [address], [place] [address] Oct, [facility] [address] [id number] [address] [place] [address], [place] [address] Oct, [facility] [address] [id number] [address] [place] [address], [place] [address] Sep, [facility] [address] [id number] [address] [place] [address], [place] [address] Sep, [facility] [address] [id number] [address] [place] [address], [place] [address] Jul, [facility] [address] [id number] [address] [place] [address], [place] [address] Jul, [facility] [address] [id number] [address] [place] [address], [place] [address] Jul, [facility] [address] [id number] [address] [place] [address], [place] [address] Jul, [facility] [address] [id number] [address] [place] [address], [place] [address] Jun, [facility] [address] [id number] [address] [place] [address], [place] [address] Jun, [facility] [address] [id number] [address] [place] [address], [place] [address] May, [facility] [address] [id number] [address] [place] [address], [place] [address] Apr, [facility] [address] [id number] [address] [place] [address], [place] [address] Apr, [facility] [address] [id number] [address] [place] [address], [place] [address] Apr, [facility] [address] [id number] [address] [place] [address], [place] [address] March, [facility] [address] [id number] [address] [place] [address], [place] [address] March, [facility] [address] [id number] [address] [place] [address], [place] [address] Feb, [facility] [address] [id number] [address] [place] [address], [place] [address] Jan, [facility] [address] [id number] [address] [place] [address], [place] [address] Jan, [facility] [address] [id number] [address] [place] [address], [place] [address] Dec, [facility] [address] [id number] [address] [place] [address], [place] [address] Dec, [facility] [address] [id number] [address] [place] [address], [place] [address] Nov, [facility] [address] [id number] [address] [place] [address], [place] [address] Nov, [facility] [address] [id number] [address] [place] [address], [place] [address] Nov, [facility] [address] [id number] [address] [place] [address], [place] [address] Oct, [facility] [address] [id number] [address] [place] [address], [place] [address] Oct, [facility] [address] [id number] [address] [place] [address], [place] [address] Oct, [facility] [address] [id number] [address] [place] [address], [place] [address] Oct, [facility] [address] [id number] [address] [place] [address], [place] [address] Sep, [facility] [address] [id number] [address] [place] [address], [place] [address] Sep, [facility] [address] [id number] [address] [place] [address], [place] [address] Sep, [facility] [address] [id number] [address] [place] [address], [place] [address] Sep, [facility] [address] [id number] [address] [place] [address], [place] [address] Sep, [facility] [address] [id number] [address] [place] [address], [place] [address] 15 Sep, 2012 [facility] [address] [id number] [address] [place] [address], [place] [address] Aug, [facility] [address] [id number] [address] [place] [address], [place] [address] 26 Jul, 2012 [facility] [address] [id number] [address] [place] [address], [place] [address] 19 Jul, 2012 [facility] [address] [id number] [address] [place] [address], [place] [address] 18 Jul, 2012 [facility] [address] [id number] [address] [place] [address], [place] [address] 14 Jul, 2012 [facility] [address] [id number] [address] [place] [address], [place] [address] Jun, [facility] [address] [id number] [address] [place] [address], [place] [address] Jun, [facility] [address] [id number] [address] [place] [address], [place] [address] Jun, [facility] [address] [id number] [address] [place] [address], [place] [address] Jun, [facility] [address] [id number] [address] [place] [address], [place] [address] May, [facility] [address] [id number] [address] [place] [address], [place] [address] Apr, [facility] [address] [id number] [address] [place] [address], [place] [address] March, [facility] [address] [id number] [address] [place] [address], [place] [address] March, [facility] [address] [id number] [address] [place] [address], [place] [address] March, [facility] [address] [id number] [address] [place] [address], [place] [address] Feb, [facility] [address] [id number] [address] [place] [address], [place] [address] Feb, [facility] [address] [id number] [address] [place] [address], [place] [address] Jan, [facility] [address] [id number] [address] [place] [address], [place] [address] Jan, [facility] [address] [id number] [address] [place] [address], [place] [address] Jan, [facility] [address] [id number] [address] [place] [address], [place] [address] Dec, [facility] [address] [id number] [address] [place] [address], [place] [address] Dec, [facility] [address] [id number] [address] [place] [address], [place] [address] Nov, [facility] [address] [id number] [address] [place] [address], [place] [address] Nov, [facility] [address] [id number] [address] [place] [address], [place] [address] Nov, [facility] [address] [id number] [address] [place] [address], [place] [address] Nov, [facility] [address] [id number] [address] [place] [address], [place] [address] Nov, [facility] [address] [id number] [address] [place] [address], [place] [address] Oct, [facility] [address] [id number] [address] [place] [address], [place] [address] Oct, [facility] [address] [id number] [address] [place] [address], [place] [address] Oct, [facility] [address] [id number] [address] [place] [address] Oct, [facility] [address] [id number] [address] [place] [address] Sep, [facility] [address] [id number] [address] [place] [address] Sep, [facility] [address] [id number] [address] [place] [address] Sep, [facility] [address] [id number] [address] [place] [address] Aug, [facility] [address] [id number] [address] [place] [address] Oct, [facility] [address] [id number] [address] [place] [address] Oct, [facility] [address] [id number] [address] [place] [address] Oct, [facility] [address] [id number] [address] [place] [address] Oct, IMMUNIZATIONS No Known Immunizations SOCIAL HISTORY [...]
--- OUTSIDE RECORDS SUMMARY | 2020-04-25 14:52 | XMS REPORT ---
Author Author Ronna Blackmon Doctor Organization [facility] Address Unknown Phone Unavailable Care Team Providers Care Health And Safety Trainer Name Role Phone Migration, Doctor Unavailable Unavailable PROBLEMS Type Condition ICD9-CM Code URH82-NN Code Onset Dates Condition S tatus SNOMED Code Problem Encounter for long-term (current) use of other medications V58.69 Active 991461025 Problem Posttraumatic stress disorder F43.10 Active 64254392 Problem Bipolar disorder, unspecified F31.9 Active 19331363 Problem 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 Active 88285994 Problem Posttraumatic stress disorder 309.81 Active 16097597 Problem Bipolar disorder, unspecified 296.80 Active 84092949 Problem Attention deficit hyperactivity disorder (ADHD), combi dylon type F90.2 Active [id number] ALLERGIES No Information ENCOUNTERS Encounter Location Date Diagnosis [facility] [address] [id number] [address] [place] [address] Sep, [facility] [id number] [place] [address] Jul, Bipolar disorder, unspecifie d F31.9 [facility] [address] [id number] [address] [place] [address] Jun, Bipolar disorder, unspecifie d F31.9 ; Posttraumatic stress disorder F43.10 ; Attention deficit hyperactivity disorder (ADHD), combined type F90.2 and Other snf (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 Z79.899 [facility] [address] [id number] [place] [address] May, Caries K02.9 [facility] JOHN [address] [id number] [place] [address] May, Caries K02.9 [facility] [address] [facility] [address] [id number] [address] May, 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 requiring routine preventive dental care K08.9 [facility] [address] [id number] [address] [place] [address] Apr, Bipolar disorder, unspecifie d F31.9 [facility] [address] [id number] [address] [place] [address] Apr, [facility] [address] [facility] [id number] [address] [place] [address] Apr, Bipolar disorder, unspecifie d F31.9 [facility] [address] [id number] [address] [place] [address] Apr, Bipolar disorder, unspecifie d F31.9 [facility] [address] [facility] [id number] [address] [place] [address] Apr, [facility] [address] [facility] [id number] [address] [place] [address] March, Bipolar disorder, unspecifie d F31.9 ; Attention deficit hyperactivity disorder (ADHD), combined type F90.2 ; Posttraumatic stress disorder F43.10 and Other snf (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 Z79.899 [facility] [address] SOLIMAN [id number] [place] [address] March, Dental examination Z01.20 and Caries K02 .9 [facility] [address] [facility] [id number] [address] [place] [address] Feb, Bipolar disorder, unspecifie d F31.9 [facility] [address] [facility] [id number] [address] [place] [address] Jan, Oral health maintenance stat requiring routine preventive dental care K08.9 ; Dental examination Z01.20 and Caries K02.9 [facility] [address] [id number] [address] [place] [address] Jan, Bipolar disorder, unspecifie d F31.9 [facility] [address] [facility] [id number] [address] [place] [address] Dec, Bipolar disorder, unspecifie d F31.9 ; Attention deficit hyperactivity disorder (ADHD), combined type F90.2 and Posttraumatic stress disorder F43.10 [facility] [address] [facility] [id number] [address] [place] [address] Oct, Sore throat J02.9 [facility] [address] [facility] [id number] [address] [place] [address] Oct, [facility] [address] [facility] [id number] [address] [place] [address] Oct, Bipolar disorder, unspecifie d F31.9 [facility] [address] [facility] [id number] [address] [place] [address] [id number] Sep, 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 requiring routine preventive dental care K08.9 [facility] [address] [facility] [id number] [address] [place] [address] Sep, Bipolar disorder, unspecifie d F31.9 ; Attention deficit hyperactivity disorder (ADHD), combined type F90.2 and Posttraumatic stress disorder F43.[address] 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 inspector (current) dr nubia briceno Z79.899 [facility] [address] [facility] [id number] [address] [place] [address] Jul, Bipolar disorder, unspecifie d F31.9 [facility] [address] [facility] [id number] [address] [place] [address] Jun, Bipolar disorder, unspecifie d F31.9 [facility] [address] [facility] [id number] [address] [place] [address] Jun, [facility] [address] [facility] [id number] [address] [place] [address] Jun, Bipolar disorder, unspecifie d F31.9 ; Attention deficit hyperactivity disorder (ADHD), combined type F90.2 ; Posttraumatic stress disorder F43.10 and Other snf (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 Z79.899 [facility] [address] [id number] [address] [place] [address] [id number] Jun, Dental examination Z01.20 [facility] [address] [facility] [id number] [address] [place] [address] May, [facility] [address] [facility] [id number] [address] [place] [address] Apr, Bipolar disorder, unspecifie d F31.9 [facility] [address] [facility] [id number] [address] [place] [address] March, Bipolar disorder, unspecifie d F31.9 ; Attention deficit hyperactivity disorder (ADHD), combined type F90.2 and Posttraumatic stress disorder F43.10 [facility] [address] [facility] [id number] [address] [place] [address] Feb, [facility] [address] [facility] [id number] [address] [place] [address] Feb, Insect bite (nonvenomous), l eft knee, initial encounter S80.262A and Bitten or stung by nonvenomous insect and other nonvenomous arthropods, initial encounter W57.XXXA [facility] [address] [facility] [id number] [address] [place] [address] Feb, Bipolar disorder, unspecifie d F31.9 [facility] [address] [id number] [address] [place] [address] [id number] Feb, Dental examination Z01.20 [facility] [address] [facility] [id number] [address] [place] [address] Feb, Bipolar disorder, unspecifie d F31.9 ; Attention deficit hyperactivity disorder (ADHD), combined type F90.2 and Posttraumatic stress disorder F43.10 [facility] [address] [id number] [address] [place] [address] [id number] Feb, Dental examination Z01.20 [facility] [address] [facility] [id number] [address] [place] [phone] Jan, Bipolar disorder, unspecifie d F31.9 [facility] [address] [facility] [id number] [address] [place] [address] Jan, Attention deficit hyperactiv ity disorder (ADHD), combined type F90.2 [facility] [address] [facility] [id number] [address] [place] [address] Dec, Posttraumatic stress disorde r F43.10 [facility] [address] [facility] [id number] [address] [place] [phone] Dec, Posttraumatic stress disorde r F43.10 [facility] [address] [id number] [place] [address] [id number] Nov, Dental examination Z01.20 [facility] [address] [id number] [id number] Nov, Encounter for dental exam an d cleaning w/o abnormal findings Z01.20 [facility] [address] [id number] [place] [address] [id number] Nov, Dental examination Z01.20 [facility] [address] [facility] [id number] [address] [place] [address] Sep, Bipolar disorder, unspecifie d F31.9 ; Posttraumatic stress disorder F43.10 and Attention deficit hyperactivity disorder (ADHD), combined type F90.2 [facility] [address] [facility] [id number] [address] [place] [address] Aug, Posttraumatic stress disorde r F43.10 [facility] [address] [facility] [id number] [address] [place] [address] Jul, Other extermination inspector (current) dr ug therapy Z79.899 [facility] [address] [id number] [address] [place] [phone] Jul, Bipolar disorder, unspecifie d F31.9 ; Attention deficit hyperactivity disorder (ADHD), combined type F90.2 and Posttraumatic stress disorder F43.10 [facility] [address] [facility] [id number] [address] [place] [phone] Jun, Bipolar disorder, unspecifie d F31.9 ; Posttraumatic stress disorder F43.10 ; Attention deficit hyperactivity disorder (ADHD), combined type F90.2 and Other extermination inspector (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 Z79.899 [facility] [address] [id number] [address] [place] [phone] March, Bipolar disorder, unspecifie d F31.9 ; Posttraumatic stress disorder F43.10 and Attention deficit hyperactivity disorder (ADHD), combined type F90.2 [facility] [address] [facility] [id number] [address] [place] [phone] Dec, Bipolar disorder, unspecifie d F31.9 ; Posttraumatic stress disorder F43.10 and Attention deficit hyperactivity disorder (ADHD), combined type F90.2 [facility] [address] [facility] [id number] [address] [place] [phone] Dec, [facility] [address] [facility] [id number] [address] [place] [phone] Sep, [facility] [address] [facility] [id number] [address] [place] [phone] Aug, Bipolar disorder, unspecifie d F31.9 ; Posttraumatic stress disorder F43.10 and Attention deficit hyperactivity disorder (ADHD), combined type F90.2 [facility] [address] [facility] [id number] [address] [place] [phone] Jun, [facility] [address] [facility] [id number] [address] [place] [phone] March, [facility] [address] [facility] [id number] [address] [place] [phone] Feb, Bipolar disorder, unspecifie d F31.9 ; Attention deficit hyperactivity disorder (ADHD), combined type F90.2 and Posttraumatic stress disorder F43.10 [facility] [address] [id number] [address] [place] [phone] Feb, [facility] [address] [facility] [id number] [address] [place] [phone] Feb, [facility] [address] [facility] [id number] [address] [place] [phone] Feb, [facility] [address] [facility] [id number] [address] [place] [phone] Jan, [facility] [address] [facility] [id number] [address] [place] [address] [id number] Dec, Dental examination Z01.20 [facility] [address] [facility] [id number] [address] [place] [phone] Sep, [facility] [address] [facility] [id number] [address] [place] [phone] Sep, Attention deficit hyperactiv ity disorder (ADHD), combined type F90.2 ; Posttraumatic stress disorder F43.10 and Bipolar disorder, unspecified F31.9 [facility] [address] [facility] [id number] [address] [place] [phone] Aug, [facility] [address] [facility] [id number] [address] [place] [phone] Aug, [facility] [address] [facility] [id number] [address] [place] [phone] Jul, [facility] [address] [facility] [id number] [address] [place] [address] May, Bipolar disorder, unspecifie d 296.80 ; 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.00 and Posttraumatic stress disorder 309.81 [facility] [address] [facility] [id number] [address] [place] [phone] May, [facility] [address] [id number] [address] [place] [address], [place] [address] May, [facility] [address] [id number] [address] [place] [address], [place] [address] May, [facility] [address] [id number] [address] [place] [address], [place] [address] Apr, [facility] [address] [id number] [address] [place] [address], [place] [address] Apr, [facility] [address] [id number] [address] [place] [address], [place] [address] Apr, [facility] [address] [id number] [address] [place] [address], [place] [address] March, [facility] [address] [id number] [address] [place] [address], [place] [address] March, [facility] [address] [id number] [address] [place] [address], [place] [address] March, [facility] [address] [id number] [address] [place] [address], [place] [address] Feb, [facility] [address] [id number] [address] [place] [address], [place] [address] Feb, [facility] [address] [id number] [address] [place] [address], [place] [address] Jan, [facility] [address] [id number] [address] [place] [address], [place] [address] Jan, [facility] [address] [id number] [address] [place] [address], [place] [address] Jan, [facility] [address] [id number] [address] [place] [address], [place] [address] Jan, [facility] [address] [id number] [address] [place] [address], [place] [address] Jan, [facility] [address] [id number] [address] [place] [address], [place] [address] Jan, 2014 [facility] [address] [id number] [address] [place] [address], [place] [address] Jan, 2014 [facility] [address] [id number] [address] [place] [address], [place] [address] Jan, 2014 [facility] [address] [id number] [address] [place] [address], [place] [address] Jan, 2014 [facility] [address] [id number] [address] [place] [address], [place] [address] Jan, 2014 [facility] [address] [id number] [address] [place] [address], [place] [address] Dec, 2014 [facility] [address] [id number] [address] [place] [address], [place] [address] Dec, 2014 [facility] [address] [id number] [address] [place] [address], [place] [address] Dec, 2014 [facility] [address] [id number] [address] [place] [address], [place] [address] Dec, 2014 [facility] [address] [id number] [address] [place] [address], [place] [address] Oct, [facility] [address] [id number] [address] [place] [address], [place] [address] 18 Oct, 2014 [facility] [address] [id number] [address] [place] [address], [place] [address] 18 Oct, 2014 [facility] [address] [id number] [address] [place] [address], [place] [address] 18 Oct, 2014 [facility] [address] [id number] [address] [place] [address], [place] [address] 18 Oct, 2014 [facility] [address] [id number] [address] [place] [address], [place] [address] 05 Oct, 2014 [facility] [address] [id number] [address] [place] [address], [place] [address] Oct, [facility] [address] [id number] [address] [place] [address], [place] [address] Sep, [facility] [address] [id number] [address] [place] [address], [place] [address] Sep, [facility] [address] [id number] [address] [place] [address], [place] [address] Sep, [facility] [address] [id number] [address] [place] [address], [place] [address] Sep, [facility] [address] [id number] [address] [place] [address], [place] [address] Sep, [facility] [address] [id number] [address] [place] [address], [place] [address] Sep, [facility] [address] [id number] [address] [place] [address], [place] [address] Sep, [facility] [address] [id number] [address] [place] [address], [place] [address] Sep, [facility] [address] [id number] [address] [place] [address], [place] [address] Aug, [facility] [address] [id number] [address] [place] [address], [place] [address] Aug, [facility] [address] [id number] [address] [place] [phone] Aug, [facility] [address] [id number] [address] [place] [address] Aug, [facility] [address] [id number] [address] [place] [address], [place] [address] Jul, [facility] [address] [id number] [address] [place] [address], [place] [address] 08 Jul, 2014 [facility] [address] [id number] [address] [place] [address], [place] [address] Jul, [facility] [address] [id number] [address] [place] [address], [place] [address] Jul, [facility] [address] [id number] [address] [place] [address], [place] [address] Jun, [facility] [address] [id number] [address] [place] [address], [place] [address] Jun, [facility] [address] [id number] [address] [place] [address], [place] [address] Jun, [facility] [address] [id number] [address] [place] [address], [place] [address] Jun, [facility] [address] [id number] [address] [place] [address], [place] [address] May, [facility] [address] [id number] [address] [place] [address], [place] [address] May, [facility] [address] [id number] [address] [place] [address], [place] [address] May, [facility] [address] [id number] [address] [place] [address], [place] [address] May, [facility] [address] [id number] [address] [place] [address], [place] [address] Apr, [facility] [address] [id number] [address] [place] [address], [place] [address] Apr, [facility] [address] [id number] [address] [place] [address], [place] [address] Apr, [facility] [address] [id number] [address] [place] [address], [place] [address] Apr, [facility] [address] [id number] [address] [place] [address], [place] [address] Apr, [facility] [address] [id number] [address] [place] [address], [place] [address] Apr, [facility] [address] [id number] [address] [place] [address], [place] [address] Apr, [facility] [address] [id number] [address] [place] [address], [place] [address] Apr, [facility] [address] [id number] [address] [place] [address], [place] [address] Apr, [facility] [address] [id number] [address] [place] [address], [place] [address] Apr, [facility] [address] [id number] [address] [place] [address], [place] [address] Apr, [facility] [address] [id number] [address] [place] [address], [place] [address] Apr, [facility] [address] [id number] [address] [place] [address], [place] [address] Apr, [facility] [address] [id number] [address] [place] [address], [place] [address] March, [facility] [address] [id number] [address] [place] [address], [place] [address] March, [facility] [address] [id number] [address] [place] [address], [place] [address] March, [facility] [address] [id number] [address] [place] [address], [place] [address] March, [facility] [address] [id number] [address] [place] [address], [place] [address] Jan, [facility] [address] [id number] [address] [place] [address], [place] [address] Jan, [facility] [address] [id number] [address] [place] [address], [place] [address] Jan, [facility] [address] [id number] [address] [place] [address], [place] [address] Jan, [facility] [address] [id number] [address] [place] [address], [place] [address] Jan, [facility] [address] [id number] [address] [place] [address], [place] [address] Jan, [facility] [address] [id number] [address] [place] [address], [place] [address] Dec, [facility] [address] [id number] [address] [place] [address], [place] [address] Dec, [facility] [address] [id number] [address] [place] [address], [place] [address] Dec, [facility] [address] [id number] [address] [place] [address], [place] [address] Dec, [facility] [address] [id number] [address] [place] [address], [place] [address] Nov, [facility] [address] [id number] [address] [place] [address], [place] [address] Nov, [facility] [address] [id number] [address] [place] [address], [place] [id number] Nov, [facility] [address] [id number] [address] [place] [address], [place] [address] Nov, [facility] [address] [id number] [address] [place] [address], [place] [address] Oct, [facility] [address] [id number] [address] [place] [address], [place] [address] Oct, [facility] [address] [id number] [address] [place] [address], [place] [address] Oct, [facility] [address] [id number] [address] [place] [address], [place] [address] Oct, [facility] [address] [id number] [address] [place] [address], [place] [address] Oct, [facility] [address] [id number] [address] [place] [address], [place] [address] Oct, [facility] [address] [id number] [address] [place] [address], [place] [address] Oct, [facility] [address] [id number] [address] [place] [address], [place] [address] Oct, [facility] [address] [id number] [address] [place] [address], [place] [address] Sep, [facility] [address] [id number] [address] [place] [address], [place] [address] Sep, [facility] [address] [id number] [address] [place] [address], [place] [address] Jul, [facility] [address] [id number] [address] [place] [address], [place] [address] Jul, [facility] [address] [id number] [address] [place] [address], [place] [address] Jul, [facility] [address] [id number] [address] [place] [address], [place] [address] Jul, [facility] [address] [id number] [address] [place] [address], [place] [address] Jun, [facility] [address] [id number] [address] [place] [address], [place] [address] Jun, [facility] [address] [id number] [address] [place] [address], [place] [address] May, [facility] [address] [id number] [address] [place] [address], [place] [address] Apr, [facility] [address] [id number] [address] [place] [address], [place] [address] Apr, [facility] [address] [id number] [address] [place] [address], [place] [address] Apr, [facility] [address] [id number] [address] [place] [address], [place] [address] March, [facility] [address] [id number] [address] [place] [address], [place] [address] March, [facility] [address] [id number] [address] [place] [address], [place] [address] Feb, [facility] [address] [id number] [address] [place] [address], [place] [address] Jan, [facility] [address] [id number] [address] [place] [address], [place] [address] Jan, [facility] [address] [id number] [address] [place] [address], [place] [address] Dec, [facility] [address] [id number] [address] [place] [address], [place] [address] Dec, [facility] [address] [id number] [address] [place] [address], [place] [address] Nov, [facility] [address] [id number] [address] [place] [address], [place] [address] Nov, [facility] [address] [id number] [address] [place] [address], [place] [address] Nov, [facility] [address] [id number] [address] [place] [address], [place] [address] Oct, [facility] [address] [id number] [address] [place] [address], [place] [address] Oct, [facility] [address] [id number] [address] [place] [address], [place] [address] Oct, [facility] [address] [id number] [address] [place] [address], [place] [address] Oct, [facility] [address] [id number] [address] [place] [address], [place] [address] Sep, [facility] [address] [id number] [address] [place] [address], [place] [address] Sep, [facility] [address] [id number] [address] [place] [address], [place] [address] Sep, [facility] [address] [id number] [address] [place] [address], [place] [address] Sep, [facility] [address] [id number] [address] [place] [address], [place] [address] 15 Sep, 2012 [facility] [address] [id number] [address] [place] [address], [place] [address] 15 Sep, 2012 [facility] [address] [id number] [address] [place] [address], [place] [address] Aug, [facility] [address] [id number] [address] [place] [address], [place] [address] 26 Jul, 2012 [facility] [address] [id number] [address] [place] [address], [place] [address] 19 Jul, 2012 [facility] [address] [id number] [address] [place] [address], [place] [address] 18 Jul, 2012 [facility] [address] [id number] [address] [place] [address], [place] [address] 14 Jul, 2012 [facility] [address] [id number] [address] [place] [address], [place] [address] Jun, [facility] [address] [id number] [address] [place] [address], [place] [address] Jun, [facility] [address] [id number] [address] [place] [address], [place] [address] Jun, [facility] [address] [id number] [address] [place] [address], [place] [address] Jun, [facility] [address] [id number] [address] [place] [address], [place] [address] May, [facility] [address] [id number] [address] [place] [address], [place] [address] Apr, [facility] [address] [id number] [address] [place] [address], [place] [address] March, [facility] [address] [id number] [address] [place] [address], [place] [address] March, [facility] [address] [id number] [address] [place] [address], [place] [address] March, [facility] [address] [id number] [address] [place] [address], [place] [address] Feb, [facility] [address] [id number] [address] [place] [address], [place] [address] Feb, [facility] [address] [id number] [address] [place] [address], [place] [address] Jan, [facility] [address] [id number] [address] [place] [address], [place] [address] Jan, [facility] [address] [id number] [address] [place] [address], [place] [address] Jan, [facility] [address] [id number] [address] [place] [address], [place] [address] Dec, [facility] [address] [id number] [address] [place] [address], [place] [address] Dec, [facility] [address] [id number] [address] [place] [address], [place] [address] Nov, [facility] [address] [id number] [address] [place] [address], [place] [address] Nov, [facility] [address] [id number] [address] [place] [address], [place] [address] Nov, [facility] [address] [id number] [address] [place] [address], [place] [address] Nov, [facility] [address] [id number] [address] [place] [address], [place] [address] Nov, [facility] [address] [id number] [address] [place] [address], [place] [address] Oct, [facility] [address] [id number] [address] [place] [address], [place] [address] Oct, [facility] [address] [id number] [address] [place] [address], [place] [address] Oct, [facility] [address] [id number] [address] [place] [id number] Oct, [facility] [address] [id number] [address] [place] [id number] Sep, [facility] [address] [id number] [address] [place] [id number] Sep, [facility] [address] [id number] [address] [place] [id number] Sep, [facility] [address] [id number] [address] [place] [id number] Aug, [facility] [address] [id number] [address] [place] [id number] Oct, [facility] [address] [id number] [address] [place] [id number] Oct, [facility] [address] [id number] [address] [place] [id number] Oct, [facility] [address] [id number] [address] [place] [id number] Oct, IMMUNIZATIONS No Known Immunizations SOCIAL HISTORY [...]
--- OUTSIDE RECORDS SUMMARY | 2020-04-25 14:52 | XMS REPORT ---
Author Author Ronna PERDUE Organization [facility] Address [address] [place] [address] Care Team Providers Care Sat Act Instructor Name Role Phone JAMES PERDUE Unavailable PROBLEMS Type Condition ICD9-CM Code [id number] Code Onset Dates Condition S tatus SNOMED Code Problem Encounter for long-term (current) use of other medications V58.69 Active 102510000 Problem Posttraumatic stress disorder F43.10 Active 04761463 Problem Bipolar disorder, unspecified F31.9 Active 80433239 Problem 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 Active 69311844 Problem Posttraumatic stress disorder 309.81 Active 06729665 Problem Bipolar disorder, unspecified 296.80 Active 08830378 Problem Attention deficit hyperactivity disorder (ADHD), combi dylon type F90.2 Active [id number] ALLERGIES No Information ENCOUNTERS Encounter Location Date Diagnosis [facility] [address] [place] [id number] [address] [place] [address] Sep, [facility] [address] [id number] [address] [place] [address] Jul, Bipolar disorder, unspecifie d F31.9 [facility] [address] [id number] [address] [place] [address] Jun, Bipolar disorder, unspecifie d F31.9 ; Posttraumatic stress disorder F43.10 ; Attention deficit hyperactivity disorder (ADHD), combined type F90.2 and Other shelter (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 Z79.899 [facility] [address] [id number] [place] [address] May, Caries K02.9 [facility] [address] [id number] [place] [address] May, Caries K02.9 [facility] [address] [facility] [id number] [address] May, Oral health maintenance stat requiring routine preventive dental care K08.9 [facility] [address] [facility] [id number] [address] [place] [address] Apr, Bipolar disorder, unspecifie d F31.9 [facility] [address] [facility] [id number] [address] [place] [address] Apr, [facility] [address] [facility] [id number] [address] [place] [address] Apr, Bipolar disorder, unspecifie d F31.9 [facility] [address] [facility] [id number] [address] [place] [address] Apr, Bipolar disorder, unspecifie d F31.9 [facility] [address] [facility] [id number] [address] [place] [address] Apr, [facility] [address] [facility] [id number] [address] [place] [address] March, Bipolar disorder, unspecifie d F31.9 ; Attention deficit hyperactivity disorder (ADHD), combined type F90.2 ; Posttraumatic stress disorder F43.10 and Other shelter (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 Z79.899 [facility] [place] [place] [address] [id number] [address] March, Dental examination Z01.20 and Caries K02 .9 [facility] [address] [facility] [id number] [address] [place] [address] Feb, Bipolar disorder, unspecifie d F31.9 [facility] [address] [facility] [id number] [address] [place] [address] Jan, Oral health maintenance stat requiring routine preventive dental care K08.9 ; Dental examination Z01.20 and Caries K02.9 [facility] [address] [facility] [id number] [address] [place] [address] Jan, Bipolar disorder, unspecifie d F31.9 [place] [address] [facility] [id number] [address] [place] [address] Dec, Bipolar disorder, unspecifie d F31.9 ; Attention deficit hyperactivity disorder (ADHD), combined type F90.2 and Posttraumatic stress disorder F43.10 [facility] [address] [facility] [id number] [address] [place] [address] Oct, Sore throat J02.9 [facility] [address] [facility] [id number] [address] [place] [address] Oct, [facility] [address] [facility] [id number] [address] [place] [address] Oct, Bipolar disorder, unspecifie d F31.9 [facility] [address] [facility] [id number] [address] [place] [address] [id number] Sep, 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 requiring routine preventive dental care K08.9 [facility] [address] [facility] [id number] [address] [place] [address] Sep, Bipolar disorder, unspecifie d F31.9 ; Attention deficit hyperactivity disorder (ADHD), combined type F90.2 and Posttraumatic stress disorder F43.10 [facility] [address] [facility] [id number] [address] [place] [address] Aug, Lymphadenopathy of left cerv ical region R59.0 [facility] [address] [facility] [id number] [address] [place] [address] Aug, Encounter for immunization Z 23 [facility] [address] [facility] [id number] [address] [place] [address] Aug, Other shelter (current) dr nubia briceno Z79.899 [place] [address] [facility] [id number] [address] [place] [address] Jul, Bipolar disorder, unspecifie d F31.9 [facility] [address] [facility] [id number] [address] [place] [address] Jun, Bipolar disorder, unspecifie d F31.9 [facility] [address] [facility] [id number] [address] [place] [address] Jun, [facility] [address] [facility] [id number] [address] [place] [address] Jun, Bipolar disorder, unspecifie d F31.9 ; Attention deficit hyperactivity disorder (ADHD), combined type F90.2 ; Posttraumatic stress disorder F43.10 and Other shelter (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 Z79.899 [facility] [address] [id number] [address] [place] [id number] Jun, Dental examination Z01.20 [facility] [address] [facility] [id number] [address] [place] [address] May, [facility] [address] [facility] [id number] [address] [place] [address] Apr, Bipolar disorder, unspecifie d F31.9 [facility] [address] [facility] [id number] [address] [place] [address] March, Bipolar disorder, unspecifie d F31.9 ; Attention deficit hyperactivity disorder (ADHD), combined type F90.2 and Posttraumatic stress disorder F43.10 [facility] [address] [facility] [id number] [address] [place] [address] Feb, [facility] [address] [facility] [id number] [address] [place] [address] Feb, Insect bite (nonvenomous), l eft knee, initial encounter S80.262A and Bitten or stung by nonvenomous insect and other nonvenomous arthropods, initial encounter W57.XXXA [facility] [address] [facility] [id number] [address] [place] [address] Feb, Bipolar disorder, unspecifie d F31.9 [facility] [address] [id number] [address] [place] [address] [id number] Feb, Dental examination Z01.20 [facility] [address] [id number] [address] [place] [address] Feb, Bipolar disorder, unspecifie d F31.9 ; Attention deficit hyperactivity disorder (ADHD), combined type F90.2 and Posttraumatic stress disorder F43.10 [facility] [address] [id number] [address] [place] [address] [id number] Feb, Dental examination Z01.20 [facility] [address] [id number] [address] [place] [address] Jan, Bipolar disorder, unspecifie d F31.9 [facility] [address] [id number] [address] [place] [address] Jan, Attention deficit hyperactiv ity disorder (ADHD), combined type F90.2 [facility] [address] [id number] [address] [place] [address] Dec, Posttraumatic stress disorde r F43.10 [facility] [address] [facility] [id number] [address] [place] [address] Dec, Posttraumatic stress disorde r F43.10 [facility] [id number] [place] [id number] Nov, Dental examination Z01.20 [facility] [address] [id number] [place] [address] [id number] Nov, Encounter for dental exam an d cleaning w/o abnormal findings Z01.20 [facility] [address] [id number] [address] [place] [address] [id number] Nov, Dental examination Z01.20 [facility] [address] [facility] [id number] [address] [place] [address] Sep, Bipolar disorder, unspecifie d F31.9 ; Posttraumatic stress disorder F43.10 and Attention deficit hyperactivity disorder (ADHD), combined type F90.2 [facility] [address] [facility] [id number] [address] [place] [address] Aug, Posttraumatic stress disorde r F43.10 [place] [address] [id number] [address] [place] [phone] 15 Jul, 2017 Other shelter (current) dr ug therapy Z79.899 [facility] [address] [id number] [address] [place] [address] 11 Jul, 2017 Bipolar disorder, unspecifie d F31.9 ; Attention deficit hyperactivity disorder (ADHD), combined type F90.2 and Posttraumatic stress disorder F43.10 [facility] [address] [id number] [address] [place] [address] Jun, Bipolar disorder, unspecifie d F31.9 ; Posttraumatic stress disorder F43.10 ; Attention deficit hyperactivity disorder (ADHD), combined type F90.2 and Other medical terminologist (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 Z79.899 [facility] [address] [id number] [address] [place] [address] March, Bipolar disorder, unspecifie d F31.9 ; Posttraumatic stress disorder F43.10 and Attention deficit hyperactivity disorder (ADHD), combined type F90.2 [facility] [address] [id number] [address] [place] [address] Dec, Bipolar disorder, unspecifie d F31.9 ; Posttraumatic stress disorder F43.10 and Attention deficit hyperactivity disorder (ADHD), combined type F90.2 [facility] [address] [id number] [address] [place] [address] Dec, [facility] [address] [id number] [address] [place] [phone] Sep, [facility] [address] [id number] [address] [place] [address] Aug, Bipolar disorder, unspecifie d F31.9 ; Posttraumatic stress disorder F43.10 and Attention deficit hyperactivity disorder (ADHD), combined type F90.2 [facility] [address] [id number] [address] [place] [address] Jun, [facility] [address] [id number] [address] [place] [address] March, [facility] [address] [facility] [id number] [address] [place] [address] Feb, Bipolar disorder, unspecifie d F31.9 ; Attention deficit hyperactivity disorder (ADHD), combined type F90.2 and Posttraumatic stress disorder F43.10 [facility] [address] [facility] [id number] [address] [place] [address] Feb, [facility] [address] [facility] [id number] [address] [place] [address] Feb, [facility] [address] [facility] [id number] [address] [place] [address] Feb, [facility] [address] [facility] [id number] [address] [place] [address] Jan, [facility] [address] [facility] [id number] [address] [place] [address] [id number] Dec, Dental examination Z01.20 [facility] [address] [facility] [id number] [address] [place] [address] Sep, [facility] [address] [facility] [id number] [address] [place] [address] Sep, Attention deficit hyperactiv ity disorder (ADHD), combined type F90.2 ; Posttraumatic stress disorder F43.10 and Bipolar disorder, unspecified F31.9 [facility] [address] [facility] [id number] [address] [place] [address] Aug, [facility] [address] [facility] [id number] [address] [place] [address] Aug, [facility] [address] [facility] [id number] [address] [place] [address] Jul, [facility] [address] [facility] [id number] [address] [place] [address] May, Bipolar disorder, unspecifie d 296.80 ; 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.00 and Posttraumatic stress disorder 309.81 [facility] [address] [id number] [address] [place] [phone] May, [facility] [address] [id number] [address] [place] [address] May, [facility] [address] [id number] [address] [place] [address] May, [facility] [address] [id number] [address] [place] [address] Apr, [facility] [address] [id number] [address] [place] [phone] Apr, [facility] [address] [id number] [address] [place] [address] Apr, [facility] [address] [id number] [address] [place] [address] March, [facility] [address] [id number] [address] [place] [phone] March, [facility] [address] [id number] [address] [place] [address] March, [facility] [address] [id number] [address] [place] [phone] Feb, [facility] [address] [id number] [address] [place] [phone] Feb, [facility] [address] [id number] [address] [place] [phone] Jan, [facility] [address] [id number] [address] [place] [phone] Jan, [facility] [address] [id number] [address] [place] [address] Jan, [facility] [address] [id number] [address] [place] [address] Jan, [facility] [address] [id number] [address] [place] [address], [place] [address] Jan, 2014 [facility] [address] [id number] [address] [place] [address], [place] [address] Jan, 2014 [facility] [address] [id number] [address] [place] [address], [place] [address] Jan, 2014 [facility] [address] [id number] [address] [place] [address], [place] [address] Jan, 2014 [facility] [address] [id number] [address] [place] [address], [place] [address] Jan, 2014 [facility] [address] [id number] [address] [place] [address], [place] [address] Jan, 2014 [facility] [address] [id number] [address] [place] [address], [place] [address] Dec, 2014 [facility] [address] [id number] [address] [place] [address], [place] [address] Dec, 2014 [facility] [address] [id number] [address] [place] [address], [place] [address] Dec, 2014 [facility] [address] [id number] [address] [place] [address], [place] [address] Dec, 2014 [facility] [address] [id number] [address] [place] [address], [place] [address] Oct, [facility] [address] [id number] [address] [place] [address], [place] [id number] 18 Oct, 2014 [facility] [address] [id number] [address] [place] [address], [place] [address] 18 Oct, 2014 [facility] [address] [id number] [address] [place] [address], [place] [id number] 18 Oct, 2014 [facility] [address] [id number] [address] [place] [address], [place] [address] 18 Oct, 2014 [facility] [address] [id number] [address] [place] [address], [place] [id number] Oct, [facility] [address] [id number] [address] [place] [address], [place] [address] Oct, [facility] [address] [id number] [address] [place] [address], [place] [address] Sep, [facility] [address] [id number] [address] [place] [address], [place] [address] Sep, [facility] [address] [id number] [address] [place] [address], [place] [address] Sep, [facility] [address] [id number] [address] [place] [address], [place] [address] Sep, [facility] [address] [id number] [address] [place] [address], [place] [address] Sep, [facility] [address] [id number] [address] [place] [address], [place] [address] Sep, [facility] [address] [id number] [address] [place] [address], [place] [address] Sep, [facility] [address] [id number] [address] [place] [address], [place] [address] Sep, [facility] [address] [id number] [address] [place] [phone] Aug, [facility] [address] [id number] [address] [place] [phone] Aug, [facility] [address] [id number] [address] [place] [phone] Aug, [facility] [address] [id number] [address] [place] [address], [place] [address] Aug, [facility] [address] [id number] [address] [place] [address], [place] [address] Jul, [facility] [address] [id number] [address] [place] [id number] Jul, [facility] [address] [id number] [address] [place] [address] Jul, [facility] [address] [id number] [address] [place] [address], [place] [address] Jul, [facility] [address] [id number] [address] [place] [address], [place] [id number] Jun, [facility] [address] [id number] [address] [place] [address], [place] [address] Jun, [facility] [address] [id number] [address] [place] [address], [place] [id number] Jun, [facility] [address] [id number] [address] [place] [address], [place] [address] Jun, [facility] [address] [id number] [address] [place] [address], [place] [address] May, [facility] [address] [id number] [address] [place] [address], [place] [address] May, [facility] [address] [id number] [address] [place] [address], [place] [address] May, [facility] [address] [id number] [address] [place] [address], [place] [address] May, [facility] [address] [id number] [address] [place] [address], [place] [address] Apr, [facility] [address] [id number] [address] [place] [address], [place] [address] Apr, [facility] [address] [id number] [address] [place] [address], [place] [address] Apr, [facility] [address] [id number] [address] [place] [address], [place] [address] Apr, [facility] [address] [id number] [address] [place] [address], [place] [address] Apr, [facility] [address] [id number] [address] [place] [address], [place] [address] Apr, [facility] [address] [id number] [facility] [place] [address] Apr, [facility] [address] [id number] [facility] [place] [address] Apr, [facility] [address] [id number] [facility] [place] [address] Apr, [facility] [address] [id number] [facility] [place] [address] Apr, [facility] [address] [id number] [facility] [place] [address] Apr, [facility] [address] [id number] [facility] [place] [address] Apr, [facility] [address] [id number] [address] [place] [address], [place] [id number] Apr, [facility] [address] [id number] [address] [place] [address], [place] [address] March, [facility] [address] [id number] [address] [place] [address], [place] [id number] March, [facility] [address] [id number] [address] [place] [address], [place] [id number] March, [facility] [address] [id number] [address] [place] [address], [place] [id number] March, [facility] [address] [id number] [address] [place] [address], [place] [address] Jan, [facility] [address] [id number] [address] [place] [address], [place] [address] Jan, [facility] [address] [id number] [address] [place] [address], [place] [address] Jan, [facility] [address] [id number] [facility] [place] [address] Jan, [facility] [address] [id number] [address] [place] [address], [place] [id number] Jan, [facility] [address] [id number] [address] [place] [address], [place] [id number] Jan, [facility] [address] [id number] [address] [place] [address], [place] [id number] Dec, [facility] [address] [id number] [address] [place] [address], [place] [id number] Dec, [facility] [address] [id number] [address] [place] [address], [place] [id number] Dec, [facility] [address] [id number] [address] [place] [address], [place] [id number] Dec, [facility] [address] [id number] [address] [place] [address], [place] [id number] Nov, [facility] [address] [id number] [address] [place] [address], [place] [id number] Nov, [facility] [address] [id number] [address] [place] [address], [place] [id number] Nov, [facility] [address] [id number] [address] [place] [address], [place] [id number] Nov, [facility] [address] [id number] [address] [place] [address], [place] [address] Oct, [facility] [address] [id number] [address] [place] [address], [place] [id number] Oct, [facility] [address] [id number] [address] [place] [address], [place] [id number] Oct, [facility] [address] [id number] [address] [place] [address], [place] [id number] Oct, [facility] [address] [id number] [address] [place] [address], [place] [id number] Oct, [facility] [address] [id number] [address] [place] [address], [place] [id number] Oct, [facility] [address] [id number] [address] [place] [address], [place] [id number] Oct, [facility] [address] [id number] [address] [place] [address], [place] [id number] Oct, [facility] [address] [id number] [address] [place] [address], [place] [id number] Sep, [facility] [address] [id number] [address] [place] [address], [place] [id number] Sep, [facility] [address] [id number] [address] [place] [address], [place] [id number] Jul, [facility] [address] [id number] [address] [place] [address], [place] [address] Jul, [facility] [address] [id number] [address] [place] [address], [place] [id number] Jul, [facility] [address] [id number] [address] [place] [address], [place] [id number] Jul, [facility] [address] [id number] [address] [place] [address], [place] [id number] Jun, [facility] [address] [id number] [address] [place] [address], [place] [address] Jun, [facility] [address] [id number] [address] [place] [address], [place] [id number] May, [facility] [address] [id number] [address] [place] [address], [place] [id number] Apr, [facility] [address] [id number] [address] [place] [address], [place] [address] Apr, [facility] [address] [id number] [address] [place] [address], [place] [address] Apr, [facility] [address] [id number] [address] [place] [address], [place] [id number] March, [facility] [address] [id number] [address] [place] [address], [place] [id number] March, [facility] [address] [id number] [address] [place] [address], [place] [id number] Feb, [facility] [address] [id number] [address] [place] [address], [place] [address] Jan, [facility] [address] [id number] [address] [place] [address], [place] [id number] Jan, [facility] [address] [id number] [address] [place] [address], [place] [id number] Dec, [facility] [address] [id number] [address] [place] [address], [place] [id number] Dec, [facility] [address] [id number] [address] [place] [address], [place] [id number] Nov, [facility] [address] [id number] [address] [place] [address], [place] [id number] Nov, [facility] [address] [id number] [address] [place] [address], [place] [id number] Nov, [facility] [address] [id number] [address] [place] [address], [place] [id number] Oct, [facility] [address] [id number] [address] [place] [address], [place] [id number] Oct, [facility] [address] [id number] [address] [place] [address], [place] [id number] Oct, [facility] [address] [id number] [address] [place] [address], [place] [id number] Oct, [facility] [address] [id number] [address] [place] [address], [place] [id number] Sep, [facility] [address] [id number] [address] [place] [address], [place] [id number] Sep, [facility] [address] [id number] [address] [place] [address], [place] [id number] Sep, [facility] [address] [id number] [address] [place] [address] [place] [id number] Sep, [facility] [address] [id number] [address] [place] [address], [place] [id number] 15 Sep, 2012 [facility] [address] [id number] [address] [place] [address], [place] [id number] 15 Sep, 2012 [facility] [address] [id number] [address] [place] [address], [place] [id number] Aug, [facility] [address] [id number] [address] [place] [address], [place] [id number] 26 Jul, 2012 [facility] [address] [id number] [address] [place] [address], [place] [id number] 19 Jul, 2012 [facility] [address] [id number] [address] [place] [address], [place] [id number] 18 Jul, 2012 [facility] [address] [id number] [address] [place] [address], [place] [id number] 14 Jul, 2012 [facility] [address] [id number] [address] [place] [address], [place] [id number] Jun, [facility] [address] [id number] [address] [place] [address], [place] [id number] Jun, [facility] [address] [id number] [address] [place] [address], [place] [address] Jun, [facility] [address] [id number] [address] [place] [address], [place] [id number] Jun, [facility] [address] [id number] [address] [place] [address], [place] [address] May, [facility] [address] [id number] [address] [place] [address], [place] [id number] Apr, [facility] [address] [id number] [address] [place] [address], [place] [address] March, [facility] [address] [id number] [address] [place] [address], [place] [id number] March, [facility] [address] [id number] [address] [place] [address], [place] [id number] March, [facility] [address] [id number] [address] [place] [address], [place] [id number] Feb, [facility] [address] [id number] [address] [place] [address], [place] [id number] Feb, [facility] [address] [id number] [address] [place] [address], [place] [id number] Jan, [facility] [address] [id number] [address] [place] [address], [place] [id number] Jan, [facility] [address] [id number] [address] [place] [address], [place] [id number] Jan, [facility] [address] [id number] [address] [place] [address], [place] [id number] Dec, [facility] [address] [id number] [address] [place] [address], [place] [id number] Dec, [facility] [address] [id number] [address] [place] [address], [place] [id number] Nov, [facility] [address] [id number] [address] [place] [address], [place] [id number] Nov, [facility] [address] [id number] [address] [place] [address], [place] [id number] Nov, [facility] [address] [id number] [address] [place] [address], [place] [id number] Nov, [facility] [address] [id number] [address] [place] [address], [place] [address] Nov, [facility] [address] [id number] [address] [place] [address], [place] [address] Oct, [facility] [address] [id number] [address] [place] [address], [place] [id number] Oct, [facility] [address] [id number] [address] [address] Oct, [facility] [address] [id number] [address] [place] [id number] Oct, [facility] [address] [id number] [address] [place] [id number] Sep, [facility] [address] [id number] [address] [place] [id number] Sep, [facility] [address] [id number] [address] [place] [id number] Sep, [facility] [address] [id number] [address] [place] [id number] Aug, [facility] [address] [id number] [address] [place] [id number] Oct, [facility] [address] [id number] [address] [place] [id number] Oct, [facility] [address] [id number] [address] [place] [id number] Oct, [facility] [address] [id number] [address] [place] [id number] Oct, IMMUNIZATIONS No Known Immunizations SOCIAL HISTORY [...]
--- OUTSIDE RECORDS SUMMARY | 2020-04-25 14:53 | XMS REPORT ---
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 Active 53607794 Problem Posttraumatic stress disorder 309.81 Active 52730938 Problem Bipolar disorder, unspecified 296.80 Active 76288490 Problem Attention deficit hyperactivity disorder (ADHD), combi dylon type F90.2 Active [id number] ALLERGIES No Information ENCOUNTERS Encounter Location Date Diagnosis [facility] [address] [id number] [address] [place] [address] Sep, [place] [id number] [address] [place] [address] Jun, Bipolar disorder, unspecifie d F31.9 ; Posttraumatic stress disorder F43.10 ; Attention deficit hyperactivity disorder (ADHD), combined type F90.2 and 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.899 [facility] [address] [id number] [place] [address] May, Caries K02.9 [facility] [address] [id number] [place] [address] May, Caries K02.9 OUTREACH [facility] [address] [facility] [address] [id number] [address] May, 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 requiring routine preventive dental care K08.9 [facility] [address] [facility] [id number] [address] [place] [address] Apr, Bipolar disorder, unspecifie d F31.9 [facility] [address] [facility] [id number] [address] [place] [address] Apr, [facility] [address] [facility] [id number] [address] [place] [address] Apr, Bipolar disorder, unspecifie d F31.9 [facility] [address] [facility] [id number] [address] [place] [address] Apr, Bipolar disorder, unspecifie d F31.9 [place] [address] [facility] [id number] [address] [place] [address] Apr, [place] [address] [facility] [id number] [address] [place] [address] March, Bipolar disorder, unspecifie d F31.9 ; Attention deficit hyperactivity disorder (ADHD), combined type F90.2 ; Posttraumatic stress disorder F43.10 and 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.[address] [id number] [place] [address] March, Dental examination Z01.20 and Caries K02 .9 [place] [address] [facility] [id number] [address] [place] [address] Feb, Bipolar disorder, unspecifie d F31.9 [place] [address] [facility] [id number] [address] [place] [address] Jan, 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 requiring routine preventive dental care K08.9 ; Dental examination Z01.20 and Caries K02.9 [place] [address] [facility] [id number] [address] [place] [address] Jan, Bipolar disorder, unspecifie d F31.9 [place] [id number] [facility] [id number] [address] [place] [address] Dec, Bipolar disorder, unspecifie d F31.9 ; Attention deficit hyperactivity disorder (ADHD), combined type F90.2 and Posttraumatic stress disorder F43.10 [facility] [address] [facility] [id number] [address] [place] [address] Oct, Sore throat J02.9 [facility] [address] [facility] [id number] [address] [place] [address] Oct, [facility] [address] [facility] [id number] [address] [place] [address] Oct, Bipolar disorder, unspecifie d F31.9 [facility] [address] [id number] [address] [place] [id number] Sep, 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 requiring routine preventive dental care K08.9 [facility] [address] [facility] [id number] [address] [place] [address] Sep, Bipolar disorder, unspecifie d F31.9 ; Attention deficit hyperactivity disorder (ADHD), combined type F90.2 and Posttraumatic stress disorder F43.10 [facility] [address] [facility] [id number] [address] [place] [address] Aug, Lymphadenopathy of left cerv ical region R59.0 [facility] [address] [facility] [id number] [address] [place] [address] Aug, Encounter for immunization Z 23 [facility] [address] [facility] [id number] [address] [place] [address] Aug, Other longterm (current) dr nubia briceno Z79.899 [facility] [address] [facility] [id number] [address] [place] [address] Jul, Bipolar disorder, unspecifie d F31.9 [facility] [address] [facility] [id number] [address] [place] [address] Jun, Bipolar disorder, unspecifie d F31.9 [facility] [address] [facility] [id number] [address] [place] [address] Jun, [facility] [address] [id number] [address] [place] [address] Jun, Bipolar disorder, unspecifie d F31.9 ; Attention deficit hyperactivity disorder (ADHD), combined type F90.2 ; Posttraumatic stress disorder F43.10 and Other longterm (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 Z79.899 [facility] [address] [facility] [id number] [address] [place] [address] [id number] Jun, Dental examination Z01.20 [facility] [address] [facility] [id number] [address] [place] [address] May, [facility] [address] [facility] [id number] [address] [place] [address] Apr, Bipolar disorder, unspecifie d F31.9 [facility] [address] [facility] [id number] [address] [place] [address] March, Bipolar disorder, unspecifie d F31.9 ; Attention deficit hyperactivity disorder (ADHD), combined type F90.2 and Posttraumatic stress disorder F43.10 [facility] [address] [facility] [id number] [address] [place] [address] Feb, [facility] [address] [id number] [address] [place] [address] Feb, Insect bite (nonvenomous), l eft knee, initial encounter S80.262A and Bitten or stung by nonvenomous insect and other nonvenomous arthropods, initial encounter W57.XXXA [facility] [address] [id number] [address] [place] [address] Feb, Bipolar disorder, unspecifie d F31.9 [facility] [address] [id number] [address] [place] [address] [id number] Feb, Dental examination Z01.20 [facility] [address] [facility] [id number] [address] [place] [address] Feb, Bipolar disorder, unspecifie d F31.9 ; Attention deficit hyperactivity disorder (ADHD), combined type F90.2 and Posttraumatic stress disorder F43.10 [facility] [address] [id number] [address] [place] [address] [id number] Feb, Dental examination Z01.20 [facility] [address] [facility] [id number] [address] [place] [address] Jan, Bipolar disorder, unspecifie d F31.9 [facility] [address] [facility] [id number] [address] [place] [address] Jan, Attention deficit hyperactiv ity disorder (ADHD), combined type F90.2 [facility] [address] [id number] [address] [place] [address] Dec, Posttraumatic stress disorde r F43.10 [facility] [address] [facility] [id number] [address] [place] [address] Dec, Posttraumatic stress disorde r F43.10 [facility] [address] [id number] [address] [place] [address] [id number] Nov, Dental examination Z01.20 [facility] [id number] [place] [address] [id number] Nov, Encounter for dental exam an d cleaning w/o abnormal findings Z01.20 [facility] [address] [id number] [address] [place] [address] [id number] Nov, Dental examination Z01.20 [facility] [address] [facility] [id number] [address] [place] [address] Sep, Bipolar disorder, unspecifie d F31.9 ; Posttraumatic stress disorder F43.10 and Attention deficit hyperactivity disorder (ADHD), combined type F90.2 [facility] [address] [facility] [id number] [address] [place] [phone] 09 Aug, 2017 Posttraumatic stress disorde r F43.10 [facility] [address] [facility] [id number] [address] [place] [address] 15 Jul, 2017 Other longterm (current) dr nubia briceno Z79.899 [facility] [address] [id number] [address] [place] [phone] 11 Jul, 2017 Bipolar disorder, unspecifie d F31.9 ; Attention deficit hyperactivity disorder (ADHD), combined type F90.2 and Posttraumatic stress disorder F43.10 [facility] [address] [id number] [address] [place] [address] Jun, Bipolar disorder, unspecifie d F31.9 ; Posttraumatic stress disorder F43.10 ; Attention deficit hyperactivity disorder (ADHD), combined type F90.2 and 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.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 [facility] [address] [id number] [address] [place] [address] March, Bipolar disorder, unspecifie d F31.9 ; Posttraumatic stress disorder F43.10 and Attention deficit hyperactivity disorder (ADHD), combined type F90.2 [facility] [address] [facility] [id number] [address] [place] [address] Dec, Bipolar disorder, unspecifie d F31.9 ; Posttraumatic stress disorder F43.10 and Attention deficit hyperactivity disorder (ADHD), combined type F90.2 [facility] [address] [facility] [id number] [address] [place] [address] Dec, [facility] [address] [facility] [id number] [address] [place] [address] Sep, [facility] [address] [facility] [id number] [address] [place] [address] Aug, Bipolar disorder, unspecifie d F31.9 ; Posttraumatic stress disorder F43.10 and Attention deficit hyperactivity disorder (ADHD), combined type F90.2 [facility] [address] [facility] [id number] [address] [place] [address] Jun, [facility] [address] [facility] [id number] [address] [place] [address] March, [facility] [address] [facility] [id number] [address] [place] [address] Feb, Bipolar disorder, unspecifie d F31.9 ; Attention deficit hyperactivity disorder (ADHD), combined type F90.2 and Posttraumatic stress disorder F43.10 [facility] [address] [facility] [id number] [address] [place] [address] Feb, [facility] [address] [facility] [id number] [address] [place] [phone] Feb, [facility] [address] [facility] [id number] [address] [place] [phone] Feb, [facility] [address] [facility] [id number] [address] [place] [address] Jan, [facility] [address] [id number] [address] [place] [address] [id number] Dec, Dental examination Z01.20 [facility] [address] [facility] [id number] [address] [place] [phone] Sep, [facility] [address] [facility] [id number] [address] [place] [phone] Sep, Attention deficit hyperactiv ity disorder (ADHD), combined type F90.2 ; Posttraumatic stress disorder F43.10 and Bipolar disorder, unspecified F31.9 [facility] [address] [facility] [id number] [address] [place] [phone] Aug, [facility] [address] [facility] [id number] [address] [place] [phone] Aug, [facility] [address] [facility] [id number] [address] [place] [address] Jul, [facility] [address] [facility] [id number] [address] [place] [address] May, Bipolar disorder, unspecifie d 296.80 ; 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.00 and Posttraumatic stress disorder 309.81 [facility] [address] [facility] [id number] [address] [place] [phone] May, [facility] [address] [id number] [facility] [address] May, [facility] [address] [id number] [address] [place] [address], [place] [address] May, [facility] [address] [id number] [address] [place] [address], [place] [address] Apr, [facility] [address] [id number] [address] [place] [address], [place] [address] Apr, [facility] [address] [id number] [address] [place] [address], [place] [address] Apr, [facility] [address] [id number] [address] [place] [address], [place] [address] March, [facility] [address] [id number] [address] [place] [address], [place] [address] March, [facility] [address] [id number] [address] [place] [address], [place] [address] March, [facility] [address] [id number] [address] [place] [address], [place] [address] Feb, [facility] [address] [id number] [address] [place] [address], [place] [address] Feb, [facility] [address] [id number] [address] [place] [address], [place] [address] Jan, [facility] [address] [id number] [address] [place] [address], [place] [address] Jan, [facility] [address] [id number] [address] [place] [address], [place] [address] Jan, [facility] [address] [id number] [address] [place] [address], [place] [address] Jan, [facility] [address] [id number] [address] [place] [address], [place] [address] Jan, [facility] [address] [id number] [address] [place] [address], [place] [address] Jan, 2014 [facility] [address] [id number] [address] [place] [address], [place] [address] Jan, 2014 [facility] [address] [id number] [address] [place] [address], [place] [address] Jan, 2014 [facility] [address] [id number] [address] [place] [address], [place] [address] Jan, 2014 [facility] [address] [id number] [address] [place] [address], [place] [address] Jan, 2014 [facility] [address] [id number] [address] [place] [address], [place] [address] Dec, 2014 [facility] [address] [id number] [address] [place] [address], [place] [address] Dec, 2014 [facility] [address] [id number] [address] [place] [address], [place] [address] Dec, 2014 [facility] [address] [id number] [address] [place] [address], [place] [address] Dec, 2014 [facility] [address] [id number] [address] [place] [address], [place] [address] Oct, [facility] [address] [id number] [address] [place] [address], [place] [address] Oct, [facility] [address] [id number] [address] [place] [address], [place] [address] Oct, [facility] [address] [id number] [address] [place] [address], [place] [address] Oct, [facility] [address] [id number] [address] [place] [address], [place] [address] Oct, [facility] [address] [id number] [address] [place] [address], [place] [address] Oct, [facility] [address] [id number] [address] [place] [address], [place] [address] Oct, [facility] [address] [id number] [address] [place] [address], [place] [address] Sep, [facility] [address] [id number] [address] [place] [address], [place] [address] Sep, [facility] [address] [id number] [address] [place] [address], [place] [address] Sep, [facility] [address] [id number] [address] [place] [address], [place] [address] Sep, [facility] [address] [id number] [address] [place] [address], [place] [address] Sep, [facility] [address] [id number] [address] [place] [address], [place] [address] Sep, [facility] [address] [id number] [address] [place] [address], [place] [address] Sep, [facility] [address] [id number] [address] [place] [address], [place] [address] Sep, [facility] [address] [id number] [address] [place] [address], [place] [address] Aug, [facility] [address] [id number] [address] [place] [address], [place] [address] Aug, [facility] [address] [id number] [address] [place] [address], [place] [address] Aug, [facility] [address] [id number] [address] [place] [address], [place] [address] Aug, [facility] [address] [id number] [address] [place] [address], [place] [address] Jul, [facility] [address] [id number] [address] [place] [address], [place] [address] Jul, [facility] [address] [id number] [address] [place] [address], [place] [address] Jul, [facility] [address] [id number] [address] [place] [address], [place] [address] Jul, [facility] [address] [id number] [facility] [address] Jun, [facility] [address] [id number] [address] [place] [address], [place] [address] Jun, [facility] [address] [id number] [address] [place] [address], [place] [address] Jun, [facility] [address] [id number] [address] [place] [address], [place] [address] Jun, [facility] [address] [id number] [address] [place] [address], [place] [address] May, [facility] [address] [id number] [address] [place] [address], [place] [address] May, [facility] [address] [id number] [address] [place] [address], [place] [address] May, [facility] [address] [id number] [address] [place] [address], [place] [address] May, [facility] [address] [id number] [address] [place] [address], [place] [address] Apr, [facility] [address] [id number] [address] [place] [address], [place] [address] Apr, [facility] [address] [id number] [address] [place] [address], [place] [address] Apr, [facility] [address] [id number] [address] [place] [address], [place] [address] Apr, [facility] [address] [id number] [address] [place] [address], [place] [address] Apr, [facility] [address] [id number] [address] [place] [address], [place] [address] Apr, [facility] [address] [id number] [address] [place] [address], [place] [address] Apr, [facility] [address] [id number] [address] [place] [address], [place] [address] Apr, [facility] [address] [id number] [facility] [address] Apr, [facility] [address] [id number] [address] [place] [address], [place] [address] Apr, [facility] [address] [id number] [address] [place] [address], [place] [address] Apr, [facility] [address] [id number] [address] [place] [address], [place] [address] Apr, [facility] [address] [id number] [address] [place] [address], [place] [address] Apr, [facility] [address] [id number] [address] [place] [address], [place] [address] March, [facility] [address] [id number] [address] [place] [address], [place] [address] March, [facility] [address] [id number] [address] [place] [address], [place] [address] March, [facility] [address] [id number] [address] [place] [address], [place] [address] March, [facility] [address] [id number] [address] [place] [address], [place] [address] Jan, [facility] [address] [id number] [address] [place] [address], [place] [address] Jan, [facility] [address] [id number] [address] [place] [address], [place] [address] Jan, [facility] [address] [id number] [address] [place] [address], [place] [address] Jan, [facility] [address] [id number] [address] [place] [address], [place] [address] Jan, [facility] [address] [id number] [address] [place] [address], [place] [address] Jan, [facility] [address] [id number] [address] [place] [address], [place] [address] Dec, [facility] [address] [id number] [address] [place] [address], [place] [address] Dec, [facility] [address] [id number] [address] [place] [address], [place] [address] Dec, [facility] [address] [id number] [address] [place] [address], [place] [address] Dec, [facility] [address] [id number] [address] [place] [address], [place] [address] Nov, [facility] [address] [id number] [address] [place] [address], [place] [address] Nov, [facility] [address] [id number] [address] [place] [address], [place] [address] Nov, [facility] [address] [id number] [address] [place] [address], [place] [address] Nov, [facility] [address] [id number] [address] [place] [address], [place] [address] Oct, [facility] [address] [id number] [address] [place] [address], [place] [address] Oct, [facility] [address] [id number] [address] [place] [address], [place] [address] Oct, [facility] [address] [id number] [address] [place] [address], [place] [address] Oct, [facility] [address] [id number] [address] [place] [address], [place] [address] Oct, [facility] [address] [id number] [address] [place] [address], [place] [address] Oct, [facility] [address] [id number] [address] [place] [address], [place] [address] Oct, [facility] [address] [id number] [address] [place] [address], [place] [address] Oct, [facility] [address] [id number] [address] [place] [address], [place] [address] Sep, [facility] [address] [id number] [address] [place] [address], [place] [address] Sep, [facility] [address] [id number] [address] [place] [address], [place] [address] Jul, [facility] [address] [id number] [address] [place] [address], [place] [address] Jul, [facility] [address] [id number] [address] [place] [address], [place] [address] Jul, [facility] [address] [id number] [address] [place] [address], [place] [address] Jul, [facility] [address] [id number] [address] [place] [address], [place] [address] Jun, [facility] [address] [id number] [address] [place] [address], [place] [address] Jun, [facility] [address] [id number] [address] [place] [address], [place] [address] May, [facility] [address] [id number] [address] [place] [address], [place] [address] Apr, [facility] [address] [id number] [address] [place] [address], [place] [address] Apr, [facility] [address] [id number] [address] [place] [address], [place] [address] Apr, [facility] [address] [id number] [address] [place] [address], [place] [address] March, [facility] [address] [id number] [address] [place] [address], [place] [address] March, [facility] [address] [id number] [address] [place] [address], [place] [address] Feb, [facility] [address] [id number] [address] [place] [address], [place] [address] 15 Jan, 2013 [facility] [address] [id number] [address] [place] [address], [place] [address] Jan, [facility] [address] [id number] [address] [place] [address], [place] [address] Dec, [facility] [address] [id number] [address] [place] [address], [place] [address] Dec, [facility] [address] [id number] [address] [place] [address], [place] [address] Nov, [facility] [address] [id number] [address] [place] [address], [place] [address] Nov, [facility] [address] [id number] [address] [place] [address], [place] [address] Nov, [facility] [address] [id number] [address] [place] [address], [place] [address] Oct, [facility] [address] [id number] [address] [place] [address], [place] [address] Oct, [facility] [address] [id number] [address] [place] [address], [place] [address] Oct, [facility] [address] [id number] [address] [place] [address], [place] [address] Oct, [facility] [address] [id number] [address] [place] [address], [place] [address] Sep, [facility] [address] [id number] [address] [place] [address], [place] [address] Sep, [facility] [address] [id number] [address] [place] [address], [place] [address] Sep, [facility] [address] [id number] [address] [place] [address], [place] [address] Sep, [facility] [address] [id number] [address] [place] [address], [place] [address] Sep, [facility] [address] [id number] [address] [place] [address], [place] [address] 15 Sep, 2012 [facility] [address] [id number] [address] [place] [address], [place] [address] Aug, [facility] [address] [id number] [address] [place] [address], [place] [address] 26 Jul, 2012 [facility] [address] [id number] [address] [place] [address], [place] [address] Jul, [facility] [address] [id number] [address] [place] [address], [place] [address] 18 Jul, 2012 [facility] [address] [id number] [address] [place] [address], [place] [address] 14 Jul, 2012 [facility] [address] [id number] [address] [place] [address], [place] [address] Jun, [facility] [address] [id number] [address] [place] [address], [place] [address] Jun, [facility] [address] [id number] [address] [place] [address], [place] [address] Jun, [facility] [address] [id number] [address] [place] [address], [place] [address] Jun, [facility] [address] [id number] [address] [place] [address], [place] [address] May, [facility] [address] [id number] [address] [place] [address], [place] [address] Apr, [facility] [address] [id number] [address] [place] [address], [place] [address] March, [facility] [address] [id number] [address] [place] [address], [place] [address] March, [facility] [address] [id number] [address] [place] [address], [place] [address] March, [facility] [address] [id number] [address] [place] [address], [place] [address] Feb, [facility] [address] [id number] [address] [place] [address], [place] [address] Feb, [facility] [address] [id number] [address] [place] [address], [place] [address] Jan, [facility] [address] [id number] [address] [place] [address], [place] [address] Jan, [facility] [address] [id number] [address] [place] [address], [place] [address] Jan, [facility] [address] [id number] [address] [place] [address], [place] [address] Dec, [facility] [address] [id number] [address] [place] [address], [place] [address] Dec, [facility] [address] [id number] [address] [place] [address], [place] [address] Nov, [facility] [address] [id number] [address] [place] [address], [place] [address] Nov, [facility] [address] [id number] [address] [place] [address], [place] [address] Nov, [facility] [address] [id number] [address] [place] [address], [place] [address] Nov, [facility] [address] [id number] [address] [place] [address], [place] [address] Nov, [facility] [address] [id number] [address] [place] [address], [place] [address] Oct, [facility] [address] [id number] [address] [place] [address], [place] [address] Oct, [facility] [address] [id number] [address] [place] [address], [place] [address] Oct, [facility] [address] [id number] [address] [place] [address], [place] [address] Oct, [facility] [address] [id number] [address] [place] [address] Sep, [facility] [address] [id number] [address] [place] [address] Sep, [facility] [address] [id number] [address] [place] [address] Sep, [facility] [address] [id number] [address] [place] [address] Aug, [facility] [address] [id number] [address] [place] [address] Oct, [facility] [address] [id number] [address] [place] [address] Oct, [facility] [address] [id number] [address] [place] [address] Oct, [facility] [address] [id number] [address] [place] [address] Oct, IMMUNIZATIONS No Known Immunizations SOCIAL HISTORY [...]
--- OUTSIDE RECORDS SUMMARY | 2020-04-25 14:53 | XMS REPORT ---
Author Author Ronna Blackmno Doctor Organization [facility] Address Unknown Phone Unavailable Care Team Providers Care Chiseler Head Name Role Phone Migration, Doctor Unavailable Unavailable PROBLEMS Type Condition ICD9-CM Code MAA02-CK Code Onset Dates Condition S tatus SNOMED Code Problem Encounter for long-term (current) use of other medications V58.69 Active 335728923 Problem Posttraumatic stress disorder F43.10 Active 77734980 Problem Bipolar disorder, unspecified F31.9 Active 64475844 Problem 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 Active 21505032 Problem Posttraumatic stress disorder 309.81 Active 08222138 Problem Bipolar disorder, unspecified 296.80 Active 40581936 Problem Attention deficit hyperactivity disorder (ADHD), combi dylon type F90.2 Active [id number] ALLERGIES No Information ENCOUNTERS Encounter Location Date Diagnosis [facility] [address] [id number] [address] [place] [address] Sep, [facility] [id number] [place] [address] Jun, Bipolar disorder, unspecifie d F31.9 ; Posttraumatic stress disorder F43.10 ; Attention deficit hyperactivity disorder (ADHD), combined type F90.2 and 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 [address] [address] [id number] [address] May, 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 requiring routine preventive dental care K08.9 [facility] [address] [id number] [address] [place] [address] Apr, Bipolar disorder, unspecifie d F31.9 [facility] [address] [id number] [address] [place] [address] Apr, [facility] [address] [id number] [address] [place] [address] Apr, Bipolar disorder, unspecifie d F31.9 [facility] [address] [facility] [id number] [address] [place] [address] Apr, Bipolar disorder, unspecifie d F31.9 [facility] [address] [id number] [address] [place] [address] Apr, [facility] [address] [facility] [id number] [address] [place] [address] March, Bipolar disorder, unspecifie d F31.9 ; Attention deficit hyperactivity disorder (ADHD), combined type F90.2 ; Posttraumatic stress disorder F43.10 and 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.[id number] [place] [address] March, Dental examination Z01.20 and Caries K02 .9 [facility] [address] [facility] [id number] [address] [place] [address] Feb, Bipolar disorder, unspecifie d F31.9 [facility] [address] [facility] [id number] [address] [place] [address] Jan, 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 requiring routine preventive dental care K08.9 ; Dental examination Z01.20 and Caries K02.9 [facility] [address] [facility] [id number] [address] [place] [address] Jan, Bipolar disorder, unspecifie d F31.9 [facility] [address] [facility] [id number] [address] [place] [address] Dec, Bipolar disorder, unspecifie d F31.9 ; Attention deficit hyperactivity disorder (ADHD), combined type F90.2 and Posttraumatic stress disorder F43.10 [facility] [address] [facility] [id number] [address] [place] [address] Oct, Sore throat J02.9 [facility] [address] [facility] [id number] [address] [place] [address] Oct, [facility] [address] [facility] [id number] [address] [place] [address] Oct, Bipolar disorder, unspecifie d F31.9 [facility] [address] [id number] [address] [place] [id number] Sep, 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 requiring routine preventive dental care K08.9 [facility] [address] [facility] [id number] [address] [place] [address] Sep, Bipolar disorder, unspecifie d F31.9 ; Attention deficit hyperactivity disorder (ADHD), combined type F90.2 and Posttraumatic stress disorder F43.10 [facility] [address] [facility] [id number] [address] [place] [address] Aug, Lymphadenopathy of left cerv ical region R59.0 [facility] [address] [facility] [id number] [address] [place] [address] Aug, Encounter for immunization Z 23 [facility] [address] [facility] [id number] [address] [place] [address] Aug, Other [facility] dr delacruz therapy Z79.899 [facility] [address] [facility] [id number] [address] [place] [address] Jul, Bipolar disorder, unspecifie d F31.9 [facility] [address] [facility] [id number] [address] [place] [address] Jun, Bipolar disorder, unspecifie d F31.9 [facility] [address] [facility] [id number] [address] [place] [address] Jun, [facility] [address] [facility] [id number] [address] [place] [address] Jun, Bipolar disorder, unspecifie d F31.9 ; Attention deficit hyperactivity disorder (ADHD), combined type F90.2 ; Posttraumatic stress disorder F43.10 and 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 [address] [facility] [id number] [address] [place] [id number] 07 Jun, 2018 Dental examination Z01.20 [facility] [address] [facility] [id number] [address] [place] [address] 09 May, 2018 [facility] [address] [facility] [id number] [address] [place] [address] Apr, Bipolar disorder, unspecifie d F31.9 [facility] [address] [facility] [id number] [place] [address] March, Bipolar disorder, unspecifie d F31.9 ; Attention deficit hyperactivity disorder (ADHD), combined type F90.2 and Posttraumatic stress disorder F43.10 [facility] [address] [id number] [address] [place] [address] Feb, [facility] [address] [facility] [id number] [address] [place] [address] Feb, Insect bite (nonvenomous), l eft knee, initial encounter S80.262A and Bitten or stung by nonvenomous insect and other nonvenomous arthropods, initial encounter W57.XXXA [facility] [address] [id number] [address] [place] [address] Feb, Bipolar disorder, unspecifie d F31.9 [facility] [address] [id number] [address] [place] [id number] Feb, Dental examination Z01.20 [facility] [address] [facility] [id number] [address] [place] [address] Feb, Bipolar disorder, unspecifie d F31.9 ; Attention deficit hyperactivity disorder (ADHD), combined type F90.2 and Posttraumatic stress disorder F43.10 [facility] [address] [id number] [address] [place] [address] [id number] Feb, Dental examination Z01.20 [facility] [address] [facility] [id number] [address] [place] [address] Jan, Bipolar disorder, unspecifie d F31.9 [facility] [address] [facility] [id number] [address] [place] [address] Jan, Attention deficit hyperactiv ity disorder (ADHD), combined type F90.2 [facility] [address] [facility] [id number] [address] [place] [address] Dec, Posttraumatic stress disorde r F43.10 [facility] [address] [facility] [id number] [place] [address] Dec, Posttraumatic stress disorde r F43.10 [facility] [address] [id number] Nov, Dental examination Z01.20 [facility] [address] [place] [address] [id number] Nov, Encounter for dental exam an d cleaning w/o abnormal findings Z01.20 [facility] [address] [id number] Nov, Dental examination Z01.20 [facility] [id number] [place] [address] Sep, Bipolar disorder, unspecifie d F31.9 ; Posttraumatic stress disorder F43.10 and Attention deficit hyperactivity disorder (ADHD), combined type F90.2 [facility] [address] [facility] [id number] [address] [place] [address] Aug, Posttraumatic stress disorde r F43.10 [facility] [address] [facility] [id number] [address] [place] [address] 15 Jul, 2017 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 (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 nubia briceno Z79.899 [facility] [address] [id number] [address] [place] [address] Jul, Bipolar disorder, unspecifie d F31.9 ; Attention deficit hyperactivity disorder (ADHD), combined type F90.2 and Posttraumatic stress disorder F43.10 [facility] [address] [id number] [address] [place] [address] Jun, Bipolar disorder, unspecifie d F31.9 ; Posttraumatic stress disorder F43.10 ; Attention deficit hyperactivity disorder (ADHD), combined type F90.2 and 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.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 [facility] [address] [id number] [address] [place] [address] March, Bipolar disorder, unspecifie d F31.9 ; Posttraumatic stress disorder F43.10 and Attention deficit hyperactivity disorder (ADHD), combined type F90.2 [facility] [address] [id number] [address] [place] [address] Dec, Bipolar disorder, unspecifie d F31.9 ; Posttraumatic stress disorder F43.10 and Attention deficit hyperactivity disorder (ADHD), combined type F90.2 [facility] [address] [id number] [address] [place] [address] Dec, [facility] [address] [id number] [address] [place] [address] Sep, [facility] [address] [facility] [id number] [address] [place] [address] Aug, Bipolar disorder, unspecifie d F31.9 ; Posttraumatic stress disorder F43.10 and Attention deficit hyperactivity disorder (ADHD), combined type F90.2 [facility] [address] [id number] [address] [place] [address] Jun, [facility] [address] [id number] [address] [place] [address] March, [facility] [address] [id number] [address] [place] [address] Feb, Bipolar disorder, unspecifie d F31.9 ; Attention deficit hyperactivity disorder (ADHD), combined type F90.2 and Posttraumatic stress disorder F43.10 [facility] [address] [facility] [id number] [address] [place] [address] Feb, [facility] [address] [facility] [id number] [address] [place] [address] Feb, [facility] [address] [facility] [id number] [address] [place] [phone] Feb, [facility] [address] [facility] [id number] [address] [place] [address] Jan, [facility] [address] [id number] [address] [place] [address] [id number] Dec, Dental examination Z01.20 [facility] [address] [facility] [id number] [address] [place] [address] Sep, [facility] [address] [id number] [address] [place] [address] Sep, Attention deficit hyperactiv ity disorder (ADHD), combined type F90.2 ; Posttraumatic stress disorder F43.10 and Bipolar disorder, unspecified F31.9 [facility] [address] [facility] [id number] [address] [place] [address] Aug, [facility] [address] [facility] [id number] [address] [place] [address] Aug, [facility] [address] [facility] [id number] [address] [place] [address] Jul, [facility] [address] [facility] [id number] [address] [place] [address] May, Bipolar disorder, unspecifie d 296.80 ; 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.00 and Posttraumatic stress disorder 309.81 [facility] [address] [facility] [id number] [address] [place] [address] May, [facility] [address] [facility] [id number] [address] [place] [address] May, [facility] [address] [id number] [address] [place] [address], [place] [address] May, [facility] [address] [id number] [address] [place] [address], [place] [address] Apr, [facility] [address] [id number] [address] [place] [address], [place] [address] Apr, [facility] [address] [id number] [address] [place] [address], [place] [address] Apr, [facility] [address] [id number] [address] [place] [address], [place] [address] March, [facility] [address] [id number] [address] [place] [address], [place] [address] March, [facility] [address] [id number] [address] [place] [address], [place] [address] March, [facility] [address] [id number] [address] [place] [address], [place] [address] Feb, [facility] [address] [id number] [address] [place] [address], [place] [address] Feb, [facility] [address] [id number] [address] [place] [address], [place] [address] Jan, [facility] [address] [id number] [address] [place] [address], [place] [address] Jan, [facility] [address] [id number] [address] [place] [address], [place] [address] Jan, [facility] [address] [id number] [address] [place] [address], [place] [address] Jan, [facility] [address] [id number] [address] [place] [address], [place] [address] Jan, [facility] [address] [id number] [address] [place] [address], [place] [address] Jan, [facility] [address] [id number] [address] [place] [address], [place] [address] Jan, 2014 [facility] [address] [id number] [address] [place] [address], [place] [address] Jan, 2014 [facility] [address] [id number] [address] [place] [address], [place] [address] Jan, 2014 [facility] [address] [id number] [address] [place] [address], [place] [address] Jan, 2014 [facility] [address] [id number] [address] [place] [address], [place] [address] Dec, 2014 [facility] [address] [id number] [address] [place] [address], [place] [address] Dec, 2014 [facility] [address] [id number] [address] [place] [address], [place] [address] Dec, 2014 [facility] [address] [id number] [address] [place] [address], [place] [address] Dec, 2014 [facility] [address] [id number] [address] [place] [address], [place] [address] Oct, [facility] [address] [id number] [address] [place] [address], [place] [address] Oct, [facility] [address] [id number] [address] [place] [address], [place] [address] Oct, [facility] [address] [id number] [address] [place] [address], [place] [address] Oct, [facility] [address] [id number] [address] [place] [address], [place] [address] Oct, [facility] [address] [id number] [address] [place] [address], [place] [address] 05 Oct, 2014 [facility] [address] [id number] [address] [place] [address], [place] [address] 05 Oct, 2014 [facility] [address] [id number] [address] [place] [address], [place] [address] Sep, [facility] [address] [id number] [address] [place] [address], [place] [address] Sep, [facility] [address] [id number] [address] [place] [address], [place] [address] Sep, [facility] [address] [id number] [address] [place] [address], [place] [address] Sep, [facility] [address] [id number] [address] [place] [address], [place] [address] Sep, [facility] [address] [id number] [address] [place] [address], [place] [address] Sep, [facility] [address] [id number] [address] [place] [address], [place] [address] Sep, [facility] [address] [id number] [address] [place] [address], [place] [address] Sep, [facility] [address] [id number] [address] [place] [address], [place] [address] Aug, [facility] [address] [id number] [address] [place] [address], [place] [address] Aug, [facility] [address] [id number] [address] [place] [address], [place] [address] Aug, [facility] [address] [id number] [address] [place] [address], [place] [address] Aug, [facility] [address] [id number] [address] [place] [address], [place] [address] Jul, [facility] [address] [id number] [address] [place] [address], [place] [address] 08 Jul, 2014 [facility] [address] [id number] [address] [place] [address], [place] [address] Jul, [facility] [address] [id number] [address] [place] [address], [place] [address] Jul, [facility] [address] [id number] [address] [place] [address], [place] [address] Jun, [facility] [address] [id number] [facility] [place] [address] Jun, [facility] [address] [id number] [address] [place] [address], [place] [address] Jun, [facility] [address] [id number] [address] [place] [address], [place] [address] Jun, [facility] [address] [id number] [address] [place] [address], [place] [address] May, [facility] [address] [id number] [address] [place] [address], [place] [address] May, [facility] [address] [id number] [address] [place] [address], [place] [address] May, [facility] [address] [id number] [address] [place] [address], [place] [address] May, [facility] [address] [id number] [address] [place] [address], [place] [address] Apr, [facility] [address] [id number] [address] [place] [address], [place] [address] Apr, [facility] [address] [id number] [address] [place] [address], [place] [address] Apr, [facility] [address] [id number] [address] [place] [address], [place] [address] Apr, [facility] [address] [id number] [address] [place] [address], [place] [address] Apr, [facility] [address] [id number] [address] [place] [address], [place] [address] Apr, [facility] [address] [id number] [address] [place] [address], [place] [address] Apr, [facility] [address] [id number] [address] [place] [id number], [place] [id number] Apr, [facility] [address] [id number] [address] [place] [id number], [place] [id number] Apr, [facility] [address] [id number] [address] [place] [id number], [place] [id number] Apr, [facility] [address] [id number] [address] [place] [id number], [place] [id number] Apr, [facility] [address] [id number] [address] [place] [id number], [place] [id number] Apr, [facility] [address] [id number] [address] [place] [id number], [place] [id number] Apr, [facility] [address] [id number] [address] [place] [address], [place] [id number] March, [facility] [address] [id number] [address] [place] [address], [place] [id number] March, [facility] [address] [id number] [address] [place] [address], [place] [id number] March, [facility] [address] [id number] [address] [place] [address], [place] [id number] March, [facility] [address] [id number] [address] [place] [address], [place] [id number] Jan, [facility] [address] [id number] [address] [place] [address], [place] [id number] Jan, [facility] [address] [id number] [address] [place] [address], [place] [id number] Jan, [facility] [address] [id number] [address] [place] [address], [place] [id number] Jan, [facility] [address] [id number] [address] [place] [address], [place] [id number] Jan, [facility] [address] [id number] [address] [place] [address], [place] [id number] Jan, [facility] [address] [id number] [address] [place] [address], [place] [id number] Dec, [facility] [address] [id number] [address] [place] [address], [place] [id number] Dec, [facility] [address] [id number] [address] [place] [address], [place] [id number] Dec, [facility] [address] [id number] [address] [place] [address], [place] [id number] Dec, [facility] [address] [id number] [address] [place] [address], [place] [id number] Nov, [facility] [address] [id number] [address] [place] [address], [place] [id number] Nov, [facility] [address] [id number] [address] [place] [address], [place] [id number] Nov, [facility] [facility] [address] [id number] [address] [place] [address], [place] [phone] Nov, [facility] [address] [id number] [address] [place] [address], [place] [id number] Oct, [facility] [address] [id number] [address] [place] [address], [place] [id number] Oct, [facility] [address] [id number] [address] [place] [address], [place] [id number] Oct, [facility] [address] [id number] [address] [place] [address], [place] [id number] Oct, [facility] [address] [id number] [address] [place] [id number] Oct, [facility] [address] [id number] [address] [place] [address], [place] [id number] Oct, [facility] [address] [id number] [address] [place] [address], [place] [id number] Oct, [facility] [address] [id number] [address] [place] [address], [place] [id number] Oct, [facility] [address] [id number] [address] [place] [address], [place] [id number] Sep, [facility] [address] [id number] [address] [place] [address], [place] [id number] Sep, [facility] [address] [id number] [address] [place] [address], [place] [id number] Jul, [facility] [address] [id number] [address] [place] [address], [place] [id number] Jul, [facility] [address] [id number] [address] [place] [address], [place] [id number] Jul, [facility] [address] [id number] [address] [place] [address], [place] [id number] Jul, [facility] [address] [id number] [address] [place] [address], [place] [id number] Jun, [facility] [address] [id number] [address] [place] [address], [place] [phone] Jun, [facility] [address] [id number] [address] [place] [address], [place] [id number] May, [facility] [address] [id number] [address] [place] [address], [place] [id number] Apr, [facility] [address] [id number] [address] [place] [address], [place] [id number] Apr, [facility] [address] [id number] [address] [place] [address], [place] [id number] Apr, [facility] [address] [id number] [address] [place] [address], [place] [id number] March, [facility] [address] [id number] [address] [place] [address], [place] [id number] March, [facility] [address] [id number] [address] [place] [address], [place] [id number] Feb, [facility] [address] [id number] [address] [place] [address], [place] [id number] Jan, [facility] [address] [id number] [address] [place] [address], [place] [id number] Jan, [facility] [address] [id number] [address] [place] [address], [place] [id number] Dec, [facility] [address] [id number] [address] [place] [address], [place] [id number] Dec, [facility] [address] [id number] [address] [place] [address], [place] [id number] Nov, [facility] [address] [id number] [address] [place] [address], [place] [id number] Nov, [facility] [address] [id number] [address] [place] [address], [place] [id number] Nov, [facility] [address] [id number] [address] [place] [address], [place] [id number] Oct, [facility] [address] [id number] [address] [place] [address], [place] [id number] Oct, [facility] [address] [id number] [address] [place] [address], [place] [id number] Oct, [facility] [address] [id number] [address] [place] [address], [place] [id number] Oct, [facility] [address] [id number] [address] [place] [address], [place] [id number] Sep, [facility] [address] [id number] [address] [place] [address], [place] [id number] Sep, [facility] [address] [id number] [address] [place] [address], [place] [id number] Sep, [facility] [address] [id number] [address] [place] [address], [place] [id number] Sep, [facility] [address] [id number] [address] [place] [address], [place] [id number] 15 Sep, 2012 [facility] [address] [id number] [address] [place] [address], [place] [id number] 15 Sep, 2012 [facility] [address] [id number] [address] [place] [address], [place] [id number] Aug, [facility] [address] [id number] [address] [place] [address], [place] [id number] 26 Jul, 2012 [facility] [address] [id number] [address] [place] [address], [place] [id number] 19 Jul, 2012 [facility] [address] [id number] [address] [place] [address], [place] [id number] 18 Jul, 2012 [facility] [address] [id number] [address] [place] [address], [place] [id number] 14 Jul, 2012 [facility] [address] [id number] [address] [place] [address], [place] [id number] Jun, [facility] [address] [id number] [address] [place] [address], [place] [id number] Jun, [facility] [address] [id number] [address] [place] [address], [place] [id number] Jun, [facility] [address] [id number] [address] [place] [address], [place] [id number] Jun, [facility] [address] [id number] [address] [place] [address], [place] [id number] May, [facility] [address] [id number] [address] [place] [address], [place] [id number] Apr, [facility] [address] [id number] [address] [place] [address], [place] [id number] March, [facility] [address] [id number] [address] [place] [address], [place] [id number] March, [facility] [address] [id number] [address] [place] [address], [place] [id number] March, [facility] [address] [id number] [address] [place] [address], [place] [id number] Feb, [facility] [address] [id number] [address] [place] [address], [place] [id number] Feb, [facility] [address] [id number] [address] [place] [address], [place] [id number] Jan, [facility] [address] [id number] [address] [place] [address], [place] [phone] Jan, [facility] [address] [id number] [address] [place] [address], [place] [id number] Jan, [facility] [address] [id number] [address] [place] [address], [place] [id number] Dec, [facility] [address] [id number] [address] [place] [address], [place] [id number] Dec, [facility] [address] [id number] [address] [place] [address], [place] [id number] Nov, [facility] [address] [id number] [address] [place] [address], [place] [id number] Nov, [facility] [address] [id number] [address] [place] [address], [place] [id number] Nov, [facility] [address] [id number] [address] [place] [address], [place] [id number] Nov, [facility] [address] [id number] [address] [place] [address], [place] [id number] Nov, [facility] [address] [id number] [address] [place] [address], [place] [id number] Oct, [facility] [address] [id number] [address] [place] [address], [place] [id number] Oct, [facility] [address] [id number] [address] [place] [address], [place] [id number] Oct, [facility] [address] [id number] [address] [place] [address], [place] [id number] Oct, [facility] [address] [id number] [address] [place] [address], [place] [id number] Sep, [facility] [address] [id number] [address] [place] [id number] Sep, [facility] [address] [id number] [address] [place] [id number] Sep, [facility] [address] [id number] [address] [place] [id number] Aug, [facility] [address] [facility] [id number] [address] [place] [id number] Oct, [facility] [address] [facility] [id number] [address] [place] [id number] Oct, [facility] [address] [facility] [id number] [address] [place] [id number] Oct, [facility] [address] [facility] [id number] [address] [place] [id number] Oct, IMMUNIZATIONS No Known Immunizations SOCIAL HISTORY [...]
--- OUTSIDE RECORDS SUMMARY | 2020-04-25 14:53 | XMS REPORT ---
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 Active 05468794 Problem Posttraumatic stress disorder 309.81 Active 24969864 Problem Bipolar disorder, unspecified 296.80 Active 61147536 Problem Attention deficit hyperactivity disorder (ADHD), combi dylon type F90.2 Active [id number] ALLERGIES No Information ENCOUNTERS Encounter Location Date Diagnosis [facility] [address] [id number] [address] [place] [address] Sep, [facility] [address] [id number] [address] [place] [address] Jun, Bipolar disorder, unspecifie d F31.9 ; Posttraumatic stress disorder F43.10 ; Attention deficit hyperactivity disorder (ADHD), combined type F90.2 and Other correction (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 Z79.899 [facility] [address] [id number] [place] [address] May, Caries K02.9 [facility] [address] [id number] [place] [address] May, Caries K02.9 [facility]RE[facility] [address] [facility] [address] [id number] [address] May, 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 requiring routine preventive dental care K08.9 [facility] [address] [id number] [address] [place] [address] Apr, Bipolar disorder, unspecifie d F31.9 [facility] [address] [facility] [id number] [address] [place] [address] Apr, [facility] [address] [facility] [id number] [address] [place] [address] Apr, Bipolar disorder, unspecifie d F31.9 [place] [address] [facility] [id number] [address] [place] [address] Apr, Bipolar disorder, unspecifie d F31.9 [place] [address] [facility] [id number] [address] [place] [address] Apr, [place] [address] [facility] [id number] [address] [place] [address] March, Bipolar disorder, unspecifie d F31.9 ; Attention deficit hyperactivity disorder (ADHD), combined type F90.2 ; Posttraumatic stress disorder F43.10 and Other supervisor 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s (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 Z79.[id number] [place] [address] March, Dental examination Z01.20 and Caries K02 .9 [place] [address] [facility] [id number] [address] [place] [address] Feb, Bipolar disorder, unspecifie d F31.9 [place] [address] [facility] [id number] [address] [place] [address] Jan, 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 requiring routine preventive dental care K08.9 ; Dental examination Z01.20 and Caries K02.9 [place] [address] [facility] [id number] [address] [place] [address] 14 Jan, 2019 Bipolar disorder, unspecifie d F31.9 [place] [address] [facility] [id number] [address] [place] [address] Dec, Bipolar disorder, unspecifie d F31.9 ; Attention deficit hyperactivity disorder (ADHD), combined type F90.2 and Posttraumatic stress disorder F43.10 [facility] [address] [id number] [address] [place] [address] Oct, Sore throat J02.9 [facility] [address] [id number] [address] [place] [address] Oct, [facility] [address] [facility] [id number] [address] [place] [address] Oct, Bipolar disorder, unspecifie d F31.9 [facility] [address] [id number] [address] [place] [id number] Sep, 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 requiring routine preventive dental care K08.9 [facility] [address] [facility] [id number] [address] [place] [address] Sep, Bipolar disorder, unspecifie d F31.9 ; Attention deficit hyperactivity disorder (ADHD), combined type F90.2 and Posttraumatic stress disorder F43.10 [facility] [address] [facility] [id number] [address] [place] [address] Aug, Lymphadenopathy of left cerv ical region R59.0 [facility] [address] [facility] [id number] [address] [place] [address] Aug, Encounter for immunization Z 23 [facility] [address] [facility] [id number] [address] [place] [address] Aug, Other supervisor 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s (current) dr nubia briceno Z79.899 [facility] [address] [facility] [id number] [address] [place] [address] Jul, Bipolar disorder, unspecifie d F31.9 [facility] [address] [facility] [id number] [address] [place] [address] Jun, Bipolar disorder, unspecifie d F31.9 [facility] [address] [facility] [id number] [address] [place] [address] Jun, [facility] [address] [id number] [address] [place] [address] Jun, Bipolar disorder, unspecifie d F31.9 ; Attention deficit hyperactivity disorder (ADHD), combined type F90.2 ; Posttraumatic stress disorder F43.10 and Other supervisor 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s (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 Z79.899 [facility] [address] [facility] [id number] [address] [place] [address] [id number] Jun, Dental examination Z01.20 [facility] [address] [facility] [id number] [address] [place] [address] May, [facility] [address] [facility] [id number] [place] [address] Apr, Bipolar disorder, unspecifie d F31.9 [facility] [address] [facility] [id number] [address] [place] [address] March, Bipolar disorder, unspecifie d F31.9 ; Attention deficit hyperactivity disorder (ADHD), combined type F90.2 and Posttraumatic stress disorder F43.10 [facility] [address] [facility] [id number] [address] [place] [address] Feb, [facility] [id number] [place] [address] Feb, Insect bite (nonvenomous), l eft knee, initial encounter S80.262A and Bitten or stung by nonvenomous insect and other nonvenomous arthropods, initial encounter W57.XXXA [facility] [address] [id number] [address] [place] [address] Feb, Bipolar disorder, unspecifie d F31.9 [facility] [address] [id number] [address] [place] [address] [id number] Feb, Dental examination Z01.20 [facility] [address] [facility] [id number] [address] [place] [address] Feb, Bipolar disorder, unspecifie d F31.9 ; Attention deficit hyperactivity disorder (ADHD), combined type F90.2 and Posttraumatic stress disorder F43.10 [facility] [address] [id number] [address] [place] [address] [id number] Feb, Dental examination Z01.20 [facility] [address] [id number] [address] [place] [id number] Jan, Bipolar disorder, unspecifie d F31.9 [facility] [address] [facility] [id number] [address] [place] [address] Jan, Attention deficit hyperactiv ity disorder (ADHD), combined type F90.2 [facility] [address] [facility] [id number] [address] [place] [address] Dec, Posttraumatic stress disorde r F43.10 [facility] [address] [facility] [id number] [address] [place] [address] Dec, Posttraumatic stress disorde r F43.10 [facility] [address] [id number] [address] [place] [address] [id number] Nov, Dental examination Z01.20 [facility] [id number] [place] [address] [id number] Nov, Encounter for dental exam an d cleaning w/o abnormal findings Z01.20 [facility] [address] [id number] [address] [place] [address] [id number] Nov, Dental examination Z01.20 [facility] [address] [facility] [id number] [address] [place] [address] Sep, Bipolar disorder, unspecifie d F31.9 ; Posttraumatic stress disorder F43.10 and Attention deficit hyperactivity disorder (ADHD), combined type F90.2 [facility] [address] [facility] [id number] [address] [place] [address] 09 Aug, 2017 Posttraumatic stress disorde r F43.10 [facility] [address] [facility] [id number] [address] [place] [address] 15 Jul, 2017 Other supervisor 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s (current) dr nubia briceno Z79.899 [facility] [address] [id number] [address] [place] [address] Jul, Bipolar disorder, unspecifie d F31.9 ; Attention deficit hyperactivity disorder (ADHD), combined type F90.2 and Posttraumatic stress disorder F43.10 [facility] [address] [id number] [address] [place] [address] Jun, Bipolar disorder, unspecifie d F31.9 ; Posttraumatic stress disorder F43.10 ; Attention deficit hyperactivity disorder (ADHD), combined type F90.2 and Other correction (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 Z79.899 [facility] [address] [id number] [address] [place] [address] March, Bipolar disorder, unspecifie d F31.9 ; Posttraumatic stress disorder F43.10 and Attention deficit hyperactivity disorder (ADHD), combined type F90.2 [facility] [address] [facility] [id number] [address] [place] [address] Dec, Bipolar disorder, unspecifie d F31.9 ; Posttraumatic stress disorder F43.10 and Attention deficit hyperactivity disorder (ADHD), combined type F90.2 [facility] [address] [facility] [id number] [address] [place] [address] Dec, [facility] [address] [facility] [id number] [address] [place] [address] Sep, [facility] [address] [facility] [id number] [address] [place] [address] Aug, Bipolar disorder, unspecifie d F31.9 ; Posttraumatic stress disorder F43.10 and Attention deficit hyperactivity disorder (ADHD), combined type F90.2 [facility] [address] [facility] [id number] [address] [place] [phone] Jun, [facility] [address] [facility] [id number] [address] [place] [address] March, [facility] [address] [facility] [id number] [address] [place] [address] Feb, Bipolar disorder, unspecifie d F31.9 ; Attention deficit hyperactivity disorder (ADHD), combined type F90.2 and Posttraumatic stress disorder F43.10 [facility] [address] [id number] [address] [place] [address] Feb, [facility] [address] [facility] [id number] [address] [place] [address] Feb, [facility] [address] [facility] [id number] [address] [place] [address] Feb, [facility] [address] [facility] [id number] [address] [place] [address] Jan, [facility] [address] [id number] [address] [place] [address] [id number] Dec, Dental examination Z01.20 [facility] [address] [facility] [id number] [address] [place] [address] Sep, [facility] [address] [facility] [id number] [address] [place] [address] Sep, Attention deficit hyperactiv ity disorder (ADHD), combined type F90.2 ; Posttraumatic stress disorder F43.10 and Bipolar disorder, unspecified F31.9 [facility] [address] [facility] [id number] [address] [place] [address] Aug, [facility] [address] [facility] [id number] [address] [place] [address] Aug, [facility] [address] [facility] [id number] [address] [place] [address] Jul, [facility] [address] [facility] [id number] [address] [place] [address] May, Bipolar disorder, unspecifie d 296.80 ; 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.00 and Posttraumatic stress disorder 309.81 [facility] [address] [facility] [id number] [address] [place] [address] May, [facility] [address] [id number] [address] [place] [address], [place] [address] May, [facility] [address] [id number] [address] [place] [address], [place] [address] May, [facility] [address] [id number] [address] [place] [address], [place] [address] Apr, [facility] [address] [id number] [address] [place] [address], [place] [address] Apr, [facility] [address] [id number] [address] [place] [address], [place] [address] Apr, [facility] [address] [id number] [address] [place] [address], [place] [address] March, [facility] [address] [id number] [address] [place] [address], [place] [address] March, [facility] [address] [id number] [address] [place] [address], [place] [address] March, [facility] [address] [id number] [address] [place] [address], [place] [address] Feb, [facility] [address] [id number] [address] [place] [address], [place] [address] Feb, [facility] [address] [id number] [address] [place] [address], [place] [address] Jan, [facility] [address] [id number] [address] [place] [address], [place] [address] Jan, [facility] [address] [id number] [address] [place] [address], [place] [address] Jan, [facility] [address] [id number] [address] [place] [address], [place] [address] Jan, [facility] [address] [id number] [address] [place] [address], [place] [address] Jan, [facility] [address] [id number] [address] [place] [address], [place] [address] Jan, [facility] [address] [id number] [address] [place] [address], [place] [address] Jan, 2014 [facility] [address] [id number] [address] [place] [address], [place] [address] Jan, 2014 [facility] [address] [id number] [address] [place] [address], [place] [address] Jan, 2014 [facility] [address] [id number] [address] [place] [address], [place] [address] Jan, 2014 [facility] [address] [id number] [address] [place] [address], [place] [address] Dec, 2014 [facility] [address] [id number] [address] [place] [address], [place] [address] Dec, 2014 [facility] [address] [id number] [address] [place] [address], [place] [address] Dec, 2014 [facility] [address] [id number] [address] [place] [address], [place] [address] Dec, [facility] [address] [id number] [address] [place] [address], [place] [address] Oct, [facility] [address] [id number] [address] [place] [address], [place] [address] Oct, [facility] [address] [id number] [address] [place] [address], [place] [address] Oct, [facility] [address] [id number] [address] [place] [address], [place] [address] Oct, [facility] [address] [id number] [address] [place] [address], [place] [address] Oct, [facility] [address] [id number] [address] [place] [address], [place] [address] Oct, [facility] [address] [id number] [address] [place] [address], [place] [address] Oct, [facility] [address] [id number] [address] [place] [address], [place] [address] Sep, [facility] [address] [id number] [address] [place] [address], [place] [address] Sep, [facility] [address] [id number] [address] [place] [address], [place] [address] Sep, [facility] [address] [id number] [address] [place] [address], [place] [address] Sep, [facility] [address] [id number] [address] [place] [address], [place] [address] Sep, [facility] [address] [id number] [address] [place] [address], [place] [address] Sep, [facility] [address] [id number] [address] [place] [address], [place] [address] Sep, [facility] [address] [id number] [address] [place] [address], [place] [address] Sep, [facility] [address] [id number] [address] [place] [address], [place] [address] Aug, [facility] [address] [id number] [address] [place] [address], [place] [address] Aug, [facility] [address] [id number] [address] [place] [address], [place] [address] Aug, [facility] [address] [id number] [address] [place] [address], [place] [address] Aug, [facility] [address] [id number] [address] [place] [address], [place] [address] Jul, 2013 [facility] [address] [id number] [address] [place] [address], [place] [address] 08 Jul, 2014 [facility] [address] [id number] [address] [place] [address], [place] [address] Jul, 2013 [facility] [address] [id number] [address] [place] [address], [place] [address] Jul, [facility] [address] [id number] [address] [place] [address], [place] [address] Jun, [facility] [address] [id number] [address] [place] [address], [place] [address] Jun, [facility] [address] [id number] [address] [place] [address], [place] [address] Jun, [facility] [address] [id number] [address] [place] [address], [place] [address] Jun, [facility] [address] [id number] [address] [place] [address], [place] [address] May, [facility] [address] [id number] [address] [place] [address], [place] [address] May, [facility] [address] [id number] [address] [place] [address], [place] [address] May, [facility] [address] [id number] [address] [place] [address], [place] [address] May, [facility] [address] [id number] [address] [place] [address], [place] [address] Apr, [facility] [address] [id number] [address] [place] [address], [place] [address] Apr, [facility] [address] [id number] [address] [place] [address], [place] [address] Apr, [facility] [address] [id number] [address] [place] [address], [place] [address] Apr, [facility] [address] [id number] [address] [place] [address], [place] [address] Apr, [facility] [address] [id number] [address] [place] [address], [place] [address] Apr, [facility] [address] [id number] [address] [place] [address], [place] [address] Apr, [facility] [address] [id number] [address] [place] [address], [place] [address] Apr, [facility] [address] [id number] [facility] [place] [address] Apr, [facility] [address] [id number] [address] [place] [address], [place] [address] Apr, [facility] [address] [id number] [address] [place] [address], [place] [address] Apr, [facility] [address] [id number] [address] [place] [address], [place] [address] Apr, [facility] [address] [id number] [address] [place] [address], [place] [address] Apr, [facility] [address] [id number] [address] [place] [address], [place] [address] March, [facility] [address] [id number] [address] [place] [address], [place] [address] March, [facility] [address] [id number] [address] [place] [address], [place] [address] March, [facility] [address] [id number] [address] [place] [address], [place] [address] March, [facility] [address] [id number] [address] [place] [address], [place] [address] Jan, [facility] [address] [id number] [address] [place] [address], [place] [address] Jan, [facility] [address] [id number] [address] [place] [address], [place] [address] Jan, [facility] [address] [id number] [address] [place] [address], [place] [address] Jan, [facility] [address] [id number] [address] [place] [address], [place] [address] Jan, [facility] [address] [id number] [address] [place] [address], [place] [address] Jan, [facility] [address] [id number] [address] [place] [address], [place] [address] Dec, [facility] [address] [id number] [address] [place] [address], [place] [address] Dec, [facility] [address] [id number] [address] [place] [address], [place] [address] Dec, [facility] [address] [id number] [address] [place] [address], [place] [address] Dec, [facility] [address] [id number] [address] [place] [address], [place] [address] Nov, [facility] [address] [id number] [address] [place] [address], [place] [address] Nov, [facility] [address] [id number] [address] [place] [address], [place] [address] Nov, [facility] [address] [id number] [address] [place] [address], [place] [address] Nov, [facility] [address] [id number] [address] [place] [address], [place] [address] Oct, [facility] [address] [id number] [address] [place] [address], [place] [address] Oct, [facility] [address] [id number] [address] [place] [address], [place] [address] Oct, [facility] [address] [id number] [address] [place] [address], [place] [address] Oct, [facility] [address] [id number] [address] [place] [address], [place] [address] Oct, [facility] [address] [id number] [address] [place] [address], [place] [address] Oct, [facility] [address] [id number] [address] [place] [address], [place] [address] Oct, [facility] [address] [id number] [address] [place] [address] [address] Oct, [facility] [address] [id number] [address] [place] [address], [place] [address] Sep, [facility] [address] [id number] [address] [place] [address], [place] [address] Sep, [facility] [address] [id number] [address] [place] [address], [place] [address] Jul, [facility] [address] [id number] [address] [place] [address], [place] [address] Jul, [facility] [address] [id number] [address] [place] [address], [place] [address] Jul, [facility] [address] [id number] [address] [place] [address], [place] [address] Jul, [facility] [address] [id number] [address] [place] [address], [place] [address] Jun, [facility] [address] [id number] [address] [place] [address], [place] [address] Jun, [facility] [address] [id number] [address] [place] [address], [place] [address] May, [facility] [address] [id number] [address] [place] [address], [place] [address] Apr, [facility] [address] [id number] [address] [place] [address], [place] [address] Apr, [facility] [address] [id number] [address] [place] [address] Apr, [facility] [address] [id number] [address] [place] [address], [place] [address] March, [facility] [address] [id number] [address] [place] [address], [place] [address] March, [facility] [address] [id number] [address] [place] [address], [place] [address] Feb, [facility] [address] [id number] [address] [place] [address], [place] [address] 15 Jan, 2013 [facility] [address] [id number] [address] [place] [address], [place] [address] 05 Jan, 2013 [facility] [address] [id number] [address] [place] [address], [place] [address] Dec, [facility] [address] [id number] [address] [place] [address], [place] [address] Dec, [facility] [address] [id number] [address] [place] [address], [place] [address] Nov, [facility] [address] [id number] [address] [place] [address], [place] [address] Nov, [facility] [address] [id number] [address] [place] [address], [place] [address] Nov, [facility] [address] [id number] [address] [place] [address], [place] [address] Oct, [facility] [address] [id number] [address] [place] [address], [place] [address] Oct, [facility] [address] [id number] [address] [place] [address], [place] [address] Oct, [facility] [address] [id number] [address] [place] [address], [place] [address] Oct, [facility] [address] [id number] [address] [place] [address], [place] [address] Sep, [facility] [address] [id number] [address] [place] [address], [place] [address] Sep, [facility] [address] [id number] [address] [place] [address], [place] [address] Sep, [facility] [address] [id number] [address] [place] [address], [place] [address] Sep, [facility] [address] [id number] [address] [place] [address], [place] [address] 15 Sep, 2012 [facility] [address] [id number] [address] [place] [address], [place] [address] 15 Sep, 2012 [facility] [address] [id number] [address] [place] [address], [place] [address] Aug, [facility] [address] [id number] [address] [place] [address], [place] [address] 26 Jul, 2012 [facility] [address] [id number] [address] [place] [address], [place] [address] 19 Jul, 2012 [facility] [address] [id number] [address] [place] [address], [place] [address] 18 Jul, 2012 [facility] [address] [id number] [address] [place] [address], [place] [address] 14 Jul, 2012 [facility] [address] [id number] [address] [place] [address], [place] [address] Jun, [facility] [address] [id number] [address] [place] [address], [place] [address] Jun, [facility] [address] [id number] [address] [place] [address], [place] [address] Jun, [facility] [address] [id number] [address] [place] [address], [place] [address] Jun, [facility] [address] [id number] [address] [place] [address], [place] [address] May, [facility] [address] [id number] [address] [place] [address], [place] [address] Apr, [facility] [address] [id number] [address] [place] [address], [place] [address] March, [facility] [address] [id number] [address] [place] [address], [place] [address] March, [facility] [address] [id number] [address] [place] [address], [place] [address] March, [facility] [address] [id number] [address] [place] [address], [place] [address] Feb, [facility] [address] [id number] [address] [place] [address], [place] [address] Feb, [facility] [address] [id number] [address] [place] [address], [place] [address] Jan, [facility] [address] [id number] [address] [place] [address], [place] [address] Jan, [facility] [address] [id number] [address] [place] [address], [place] [address] Jan, [facility] [address] [id number] [address] [place] [address], [place] [address] Dec, [facility] [address] [id number] [address] [place] [address], [place] [address] Dec, [facility] [address] [id number] [address] [place] [address], [place] [address] Nov, [facility] [address] [id number] [address] [place] [address], [place] [address] Nov, [facility] [address] [id number] [address] [place] [address], [place] [address] Nov, [facility] [address] [id number] [address] [place] [address], [place] [address] Nov, [facility] [address] [id number] [address] [place] [address], [place] [address] Nov, [facility] [address] [id number] [address] [place] [address], [place] [address] Oct, [facility] [address] [id number] [address] [place] [address], [place] [address] Oct, [facility] [address] [id number] [address] [place] [address], [place] [address] 05 Oct, 2011 [facility] [address] [id number] [address] [place] [address], [place] [address] Oct, [facility] [address] [id number] [address] [place] [address] Sep, [facility] [address] [id number] [address] [place] [address] Sep, [facility] [address] [id number] [address] [place] [address] Sep, [facility] [address] [id number] [address] [place] [address] Aug, [facility] [address] [id number] [address] [place] [address] Oct, [facility] [address] [id number] [address] [place] [address] Oct, [facility] [address] [id number] [address] [place] [address] Oct, [facility] [address] [facility] [id number] [address] [place] [address] Oct, IMMUNIZATIONS No Known Immunizations SOCIAL HISTORY [...]
--- OUTSIDE RECORDS SUMMARY | 2020-04-25 14:53 | XMS REPORT ---
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 Active 43640030 Problem Posttraumatic stress disorder 309.81 Active 32740680 Problem Bipolar disorder, unspecified 296.80 Active 65462169 Problem Attention deficit hyperactivity disorder (ADHD), combi dylon type F90.2 Active [id number] ALLERGIES No Information ENCOUNTERS Encounter Location Date Diagnosis [facility] [address] [id number] [address] [place] [phone] Sep, [facility] [id number] [place] [phone] Jun, Bipolar disorder, unspecifie d F31.9 ; Posttraumatic stress disorder F43.10 ; Attention deficit hyperactivity disorder (ADHD), combined type F90.2 and 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.899 [facility] [address] [id number] [place] [address] May, Caries K02.9 [facility] [address] [id number], [place] [address] May, Caries K02.9 OUTRE[facility] [address] [address] [id number] [address] May, 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 requiring routine preventive dental care K08.9 [facility] [address] [id number] [address] [place] [phone] Apr, Bipolar disorder, unspecifie d F31.9 [facility] [address] [id number] [address] [place] [id number] Apr, [facility] [address] [id number] [address] [place] [phone] Apr, Bipolar disorder, unspecifie d F31.9 [facility] [address] [facility] [id number] [address] [place] [id number] Apr, Bipolar disorder, unspecifie d F31.9 [facility] [address] [id number] [address] [place] [phone] Apr, [facility] [address] 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 [id number] [address] [place] [id number] Feb, Bipolar disorder, unspecifie d F31.9 [facility] [address] [facility] [id number] [address] [place] [id number] Jan, 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 requiring routine preventive dental care K08.9 ; Dental examination Z01.20 and Caries K02.9 [facility] [address] [facility] [id number] [address] [place] [phone] Jan, Bipolar disorder, unspecifie d F31.9 [facility] [address] [facility] [id number] [address] [place] [id number] Dec, Bipolar disorder, unspecifie d F31.9 ; Attention deficit hyperactivity disorder (ADHD), combined type F90.2 and Posttraumatic stress disorder F43.10 [facility] [address] [facility] [id number] [address] [place] [phone] Oct, Sore throat J02.9 [facility] [address] [facility] [id number] [address] [place] [id number] Oct, [facility] [address] [facility] [id number] [address] [place] [id number] Oct, Bipolar disorder, unspecifie d F31.9 [facility] [address] [id number] [address] [place] [id number] Sep, 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 requiring routine preventive dental care K08.9 [facility] [address] [facility] [id number] [address] [place] [phone] Sep, Bipolar disorder, unspecifie d F31.9 ; Attention deficit hyperactivity disorder (ADHD), combined type F90.2 and Posttraumatic stress disorder F43.10 [facility] [address] [facility] [id number] [address] [place] [id number] Aug, Lymphadenopathy of left cerv ical region R59.0 [facility] [address] [facility] [id number] [address] [place] [phone] Aug, Encounter for immunization Z 23 [facility] [address] [facility] [id number] [address] [place] [phone] Aug, Other usp (current) dr delacruz therapy Z79.899 [facility] [address] [facility] [id number] [address] [place] [phone] Jul, Bipolar disorder, unspecifie d F31.9 [facility] [address] [facility] [id number] [address] [place] [phone] Jun, Bipolar disorder, unspecifie d F31.9 [facility] [address] [facility] [id number] [address] [place] [phone] Jun, [facility] [address] 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 [id number] [address] [place] [phone] 09 May, 2018 [facility] [address] [facility] [id number] [address] [place] [id number] Apr, Bipolar disorder, unspecifie d F31.9 [facility] [address] [facility] [id number] [place] [phone] March, Bipolar disorder, unspecifie d F31.9 ; Attention deficit hyperactivity disorder (ADHD), combined type F90.2 and Posttraumatic stress disorder F43.10 [facility] [address] [id number] [address] [place] [id number] Feb, [facility] [address] [facility] [id number] [address] [place] [phone] Feb, Insect bite (nonvenomous), l eft knee, initial encounter S80.262A and Bitten or stung by nonvenomous insect and other nonvenomous arthropods, initial encounter W57.XXXA [facility] [address] [id number] [address] [place] [phone] Feb, Bipolar disorder, unspecifie d F31.9 [facility] [address] [id number] [address] [place] [address] [id number] Feb, Dental examination Z01.20 [facility] [address] [facility] [id number] [address] [place] [phone] Feb, Bipolar disorder, unspecifie d F31.9 ; Attention deficit hyperactivity disorder (ADHD), combined type F90.2 and Posttraumatic stress disorder F43.10 [facility] [address] [id number] [address] [place] [address] [id number] Feb, Dental examination Z01.20 [facility] [address] [facility] [id number] [address] [place] [id number] Jan, Bipolar disorder, unspecifie d F31.9 [facility] [address] [facility] [id number] [address] [place] [id number] Jan, Attention deficit hyperactiv ity disorder (ADHD), combined type F90.2 [facility] [address] [facility] [id number] [address] [place] [phone] Dec, Posttraumatic stress disorde r F43.10 [facility] [address] [facility] [id number] [place] [phone] Dec, Posttraumatic stress disorde r F43.10 [facility] [address] [id number] Nov, Dental examination Z01.20 [facility] [address] [place] [id number] Nov, Encounter for dental exam an d cleaning w/o abnormal findings Z01.20 [facility] [address] [id number] Nov, Dental examination Z01.20 [facility] [address] [id number] [place] [id number] Sep, Bipolar disorder, unspecifie d F31.9 ; Posttraumatic stress disorder F43.10 and Attention deficit hyperactivity disorder (ADHD), combined type F90.2 [facility] [address] [facility] [id number] [address] [place] [id number] Aug, Posttraumatic stress disorde r F43.10 [facility] [address] 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 briceno Z79.899 [facility] [address] [id number] [address] [place] [id number] Jul, Bipolar disorder, unspecifie d F31.9 ; Attention deficit hyperactivity disorder (ADHD), combined type F90.2 and Posttraumatic stress disorder F43.10 [facility] [address] [id number] [address] [place] [phone] Jun, Bipolar disorder, unspecifie d F31.9 ; Posttraumatic stress disorder F43.10 ; Attention deficit hyperactivity disorder (ADHD), combined type F90.2 and 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.899 [facility] [address] [id number] [address] [place] [phone] March, Bipolar disorder, unspecifie d F31.9 ; Posttraumatic stress disorder F43.10 and Attention deficit hyperactivity disorder (ADHD), combined type F90.2 [facility] [address] [id number] [address] [place] [id number] Dec, Bipolar disorder, unspecifie d F31.9 ; Posttraumatic stress disorder F43.10 and Attention deficit hyperactivity disorder (ADHD), combined type F90.2 [facility] [address] [id number] [address] [place] [phone] Dec, [facility] [address] [id number] [address] [place] [id number] Sep, [facility] [address] [facility] [id number] [address] [place] [phone] Aug, Bipolar disorder, unspecifie d F31.9 ; Posttraumatic stress disorder F43.10 and Attention deficit hyperactivity disorder (ADHD), combined type F90.2 [facility] [address] [id number] [address] [place] [phone] Jun, [facility] [address] [id number] [address] [place] [phone] March, [facility] [address] [id number] [address] [place] [phone] Feb, Bipolar disorder, unspecifie d F31.9 ; Attention deficit hyperactivity disorder (ADHD), combined type F90.2 and Posttraumatic stress disorder F43.10 [facility] [address] [facility] [id number] [address] [place] [phone] Feb, [facility] [address] [facility] [id number] [address] [place] [phone] Feb, [facility] [address] [facility] [id number] [address] [place] [phone] Feb, [facility] [address] [facility] [id number] [address] [place] [id number] Jan, [facility] [address] [id number] [address] [place] [address] [id number] Dec, Dental examination Z01.20 [facility] [address] [facility] [id number] [address] [place] [phone] Sep, [facility] [address] [id number] [address] [place] [phone] Sep, Attention deficit hyperactiv ity disorder (ADHD), combined type F90.2 ; Posttraumatic stress disorder F43.10 and Bipolar disorder, unspecified F31.9 [facility] [address] [facility] [id number] [address] [place] [phone] Aug, [facility] [address] [facility] [id number] [address] [place] [id number] Aug, [facility] [address] [facility] [id number] [address] [place] [phone] Jul, [facility] [address] [facility] [id number] [address] [place] [id number] May, Bipolar disorder, unspecifie d 296.80 ; 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.00 and Posttraumatic stress disorder 309.81 [facility] [address] [facility] [id number] [address] [place] [id number] May, [facility] [address] [facility] [id number] [address] [place] [phone] May, [facility] [address] [id number] [address] [place] [address], [place] [address] May, [facility] [address] [id number] [address] [place] [address], [place] [address] Apr, [facility] [address] [id number] [address] [place] [address], [place] [phone] Apr, [facility] [address] [id number] [address] [place] [address], [place] [address] Apr, [facility] [address] [id number] [address] [place] [address], [place] [address] March, [facility] [address] [id number] [address] [place] [address], [place] [address] March, [facility] [address] [id number] [address] [place] [address], [place] [address] March, [facility] [address] [id number] [address] [place] [address], [place] [phone] Feb, [facility] [address] [id number] [address] [place] [address], [place] [address] Feb, [facility] [address] [id number] [address] [place] [address], [place] [phone] Jan, [facility] [address] [id number] [address] [place] [address], [place] [address] Jan, [facility] [address] [id number] [address] [place] [address], [place] [phone] Jan, [facility] [address] [id number] [address] [place] [address], [place] [address] Jan, [facility] [address] [id number] [address] [place] [address], [place] [address] Jan, [facility] [address] [id number] [address] [place] [address], [place] [id number] Jan, [facility] [address] [id number] [address] [place] [address], [place] [address] Jan, 2014 [facility] [address] [id number] [address] [place] [address], [place] [address] Jan, 2014 [facility] [address] [id number] [address] [place] [address], [place] [address] Jan, 2014 [facility] [address] [id number] [address] [place] [address], [place] [address] Jan, 2014 [facility] [address] [id number] [address] [place] [address], [place] [address] Dec, 2014 [facility] [address] [id number] [address] [place] [address], [place] [address] Dec, 2014 [facility] [address] [id number] [address] [place] [address], [place] [id number] Dec, 2014 [facility] [address] [id number] [address] [place] [address], [place] [address] Dec, 2014 [facility] [address] [id number] [address] [place] [address], [place] [address] Oct, [facility] [address] [id number] [address] [place] [address], [place] [address] Oct, [facility] [address] [id number] [address] [place] [address], [place] [address] Oct, [facility] [address] [id number] [address] [place] [address], [place] [address] Oct, [facility] [address] [id number] [address] [place] [address], [place] [address] Oct, [facility] [address] [id number] [address] [place] [address], [place] [address] 05 Oct, 2014 [facility] [address] [id number] [address] [place] [address], [place] [address] 05 Oct, 2014 [facility] [address] [id number] [address] [place] [address], [place] [address] Sep, [facility] [address] [id number] [address] [place] [address], [place] [address] Sep, [facility] [address] [id number] [address] [place] [address], [place] [address] Sep, [facility] [address] [id number] [address] [place] [address], [place] [address] Sep, [facility] [address] [id number] [address] [place] [address], [place] [address] Sep, [facility] [address] [id number] [address] [place] [address], [place] [address] Sep, [facility] [address] [id number] [address] [place] [address], [place] [address] Sep, [facility] [address] [id number] [address] [place] [address], [place] [address] Sep, [facility] [address] [id number] [address] [place] [address], [place] [address] Aug, [facility] [address] [id number] [address] [place] [address], [place] [address] Aug, [facility] [address] [id number] [address] [place] [address], [place] [address] Aug, [facility] [address] [id number] [address] [place] [address], [place] [address] Aug, [facility] [address] [id number] [address] [place] [address], [place] [address] Jul, [facility] [address] [id number] [address] [place] [address], [place] [address] 08 Jul, 2014 [facility] [address] [id number] [address] [place] [address], [place] [address] Jul, [facility] [address] [id number] [address] [place] [address], [place] [address] Jul, [facility] [address] [id number] [address] [place] [address], [place] [address] Jun, [facility] [address] [id number] [facility] [address] Jun, [facility] [address] [id number] [address] [place] [address], [place] [address] Jun, [facility] [address] [id number] [address] [place] [address], [place] [address] Jun, [facility] [address] [id number] [address] [place] [address], [place] [address] May, [facility] [address] [id number] [address] [place] [address], [place] [address] May, [facility] [address] [id number] [address] [place] [address], [place] [address] May, [facility] [address] [id number] [address] [place] [address], [place] [address] May, [facility] [address] [id number] [address] [place] [address], [place] [address] Apr, [facility] [address] [id number] [address] [place] [address], [place] [address] Apr, [facility] [address] [id number] [address] [place] [address], [place] [address] Apr, [facility] [address] [id number] [address] [place] [address], [place] [address] Apr, [facility] [address] [id number] [address] [place] [address], [place] [address] Apr, [facility] [address] [id number] [address] [place] [address], [place] [address] Apr, [facility] [address] [id number] [address] [place] [address], [place] [address] Apr, [facility] [address] [id number] [address] [place] [address], [place] [address] Apr, [facility] [address] [id number] [address] [place] [address], [place] [address] Apr, [facility] [address] [id number] [address] [place] [address], [place] [address] Apr, [facility] [address] [id number] [address] [place] [address], [place] [address] Apr, [facility] [address] [id number] [address] [place] [address], [place] [address] Apr, [facility] [address] [id number] [address] [place] [address], [place] [address] Apr, [facility] [address] [id number] [address] [place] [address], [place] [address] March, [facility] [address] [id number] [address] [place] [address], [place] [address] March, [facility] [address] [id number] [address] [place] [address], [place] [address] March, [facility] [address] [id number] [address] [place] [address], [place] [address] March, [facility] [address] [id number] [address] [place] [address], [place] [address] Jan, [facility] [address] [id number] [address] [place] [address], [place] [address] Jan, [facility] [address] [id number] [address] [place] [address], [place] [id number] Jan, [facility] [address] [id number] [address] [place] [address], [place] [address] Jan, [facility] [facility] [address] [id number] [address] [place] [address], [place] [address] Jan, [facility] [address] [id number] [address] [place] [address], [place] [address] Jan, [facility] [address] [id number] [address] [place] [address], [place] [address] Dec, [facility] [address] [id number] [address] [place] [address], [place] [address] Dec, [facility] [address] [id number] [address] [place] [address], [place] [address] Dec, [facility] [address] [id number] [address] [place] [address], [place] [address] Dec, [facility] [address] [id number] [address] [place] [address], [place] [address] Nov, [facility] [address] [id number] [address] [place] [address], [place] [address] Nov, [facility] [address] [id number] [address] [place] [address], [place] [address] Nov, [facility] [address] [id number] [address] [place] [address], [place] [address] Nov, [facility] [address] [id number] [address] [place] [address], [place] [address] Oct, [facility] [address] [id number] [address] [place] [address], [place] [address] Oct, [facility] [address] [id number] [address] [place] [address], [place] [address] Oct, [facility] [address] [id number] [address] [place] [address], [place] [address] Oct, [facility] [address] [id number] [address] [place] [id number] Oct, [facility] [address] [id number] [address] [place] [address], [place] [address] Oct, [facility] [address] [id number] [address] [place] [address], [place] [address] Oct, [facility] [address] [id number] [address] [place] [address], [place] [address] Oct, [facility] [address] [id number] [address] [place] [address], [place] [address] Sep, [facility] [address] [id number] [address] [place] [address], [place] [address] Sep, [facility] [address] [id number] [address] [place] [address], [place] [address] Jul, [facility] [address] [id number] [address] [place] [address], [place] [address] Jul, [facility] [address] [id number] [address] [place] [address], [place] [address] Jul, [facility] [address] [id number] [address] [place] [address], [place] [address] Jul, [facility] [address] [id number] [address] [place] [address], [place] [address] Jun, [facility] [address] [id number] [address] [place] [address], [place] [address] Jun, [facility] [address] [id number] [address] [place] [address], [place] [address] May, [facility] [address] [id number] [address] [place] [address], [place] [address] Apr, [facility] [address] [id number] [address] [place] [address], [place] [address] Apr, [facility] [address] [id number] [address] [place] [address], [place] [address] Apr, [facility] [address] [id number] [address] [place] [address], [place] [address] March, [facility] [address] [id number] [address] [place] [address], [place] [address] March, [facility] [address] [id number] [address] [place] [address], [place] [address] Feb, [facility] [address] [id number] [address] [place] [address], [place] [address] Jan, [facility] [address] [id number] [address] [place] [address], [place] [address] Jan, [facility] [address] [id number] [address] [place] [address], [place] [address] Dec, [facility] [address] [id number] [address] [place] [address], [place] [address] Dec, [facility] [address] [id number] [address] [place] [address], [place] [address] Nov, [facility] [address] [id number] [address] [place] [address], [place] [address] Nov, [facility] [address] [id number] [address] [place] [address], [place] [address] Nov, [facility] [address] [id number] [address] [place] [address], [place] [address] Oct, [facility] [address] [id number] [address] [place] [address], [place] [address] Oct, [facility] [address] [id number] [address] [place] [address], [place] [address] Oct, [facility] [address] [id number] [address] [place] [address], [place] [address] Oct, [facility] [address] [id number] [address] [place] [address], [place] [address] Sep, [facility] [address] [id number] [address] [place] [address], [place] [address] Sep, [facility] [address] [id number] [address] [place] [address], [place] [address] Sep, [facility] [address] [id number] [address] [place] [address], [place] [address] Sep, [facility] [address] [id number] [address] [place] [address], [place] [address] 15 Sep, 2012 [facility] [address] [id number] [address] [place] [address], [place] [address] 15 Sep, 2012 [facility] [address] [id number] [address] [place] [address], [place] [address] Aug, [facility] [address] [id number] [address] [place] [address], [place] [address] 26 Jul, 2012 [facility] [address] [id number] [address] [place] [address], [place] [address] 19 Jul, 2012 [facility] [address] [id number] [address] [place] [address], [place] [address] 18 Jul, 2012 [facility] [address] [id number] [address] [place] [address], [place] [address] 14 Jul, 2012 [facility] [address] [id number] [address] [place] [address], [place] [address] Jun, [facility] [address] [id number] [address] [place] [address], [place] [address] Jun, [facility] [address] [id number] [address] [place] [address], [place] [address] Jun, [facility] [address] [id number] [address] [place] [address], [place] [address] Jun, [facility] [address] [id number] [address] [place] [address], [place] [address] May, [facility] [address] [id number] [address] [place] [address], [place] [address] Apr, [facility] [address] [id number] [address] [place] [address], [place] [address] March, [facility] [address] [id number] [address] [place] [address], [place] [address] March, [facility] [address] [id number] [address] [place] [address], [place] [address] March, [facility] [address] [id number] [address] [place] [address], [place] [address] Feb, [facility] [address] [id number] [address] [place] [address], [place] [address] Feb, [facility] [address] [id number] [address] [place] [address], [place] [address] Jan, [facility] [address] [id number] [address] [place] [address], [place] [address] Jan, [facility] [address] [id number] [address] [place] [address], [place] [address] Jan, [facility] [address] [id number] [address] [place] [address], [place] [address] Dec, [facility] [address] [id number] [address] [place] [address], [place] [address] Dec, [facility] [address] [id number] [address] [place] [address], [place] [address] Nov, [facility] [address] [id number] [address] [place] [address], [place] [address] Nov, [facility] [address] [id number] [address] [place] [address], [place] [address] Nov, [facility] [address] [id number] [address] [place] [address], [place] [address] Nov, [facility] [address] [id number] [address] [place] [address], [place] [address] Nov, [facility] [address] [id number] [address] [place] [address], [place] [address] Oct, [facility] [address] [id number] [address] [place] [address], [place] [address] Oct, [facility] [address] [id number] [address] [place] [address], [place] [address] Oct, [facility] [address] [id number] [address] [place] [address], [place] [address] Oct, [facility] [address] [id number] [address] [place] [address], [place] [address] Sep, [facility] [address] [id number] [address] [place] [id number] Sep, [facility] [address] [id number] [address] [place] [id number] Sep, [facility] [address] [id number] [address] [place] [id number] Aug, [facility] [address] [facility] [id number] [address] [place] [phone] Oct, [facility] [address] [facility] [id number] [address] [place] [id number] Oct, [facility] [address] [facility] [id number] [address] [place] [id number] Oct, [facility] [address] [facility] [id number] [address] [place] [id number] Oct, IMMUNIZATIONS No Known Immunizations SOCIAL HISTORY [...]
--- OUTSIDE RECORDS SUMMARY | 2020-04-25 14:54 | XMS REPORT ---
Author Author Ronna Blackmon Doctor Organization [facility] Address Unknown Phone Unavailable Care Team Providers Care Electronic Engraver Name Role Phone Migration, Doctor Unavailable Unavailable PROBLEMS Type Condition ICD9-CM Code JVV49-WU Code Onset Dates Condition S tatus SNOMED Code Problem Encounter for long-term (current) use of other medications V58.69 Active 961917884 Problem Posttraumatic stress disorder F43.10 Active 07419914 Problem Bipolar disorder, unspecified F31.9 Active 38076868 Problem 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 Active 05285599 Problem Posttraumatic stress disorder 309.81 Active 15791587 Problem Bipolar disorder, unspecified 296.80 Active 20380575 Problem Attention deficit hyperactivity disorder (ADHD), combi dylon type F90.2 Active [id number] ALLERGIES No Information ENCOUNTERS Encounter Location Date Diagnosis [facility] [address] [facility] [id number] [address] [place] [address] Jun, [facility] [address] [id number] [address] May, Caries K02.9 [facility] [address] [id number] [address] May, Caries K02.9 [facility] [address] [place] [id number] [place] [address] May, 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 requiring routine preventive dental care K08.9 [facility] [address] [facility] [id number] [address] [place] [address] Apr, Bipolar disorder, unspecifie d F31.9 [facility] [address] [facility] [id number] [address] [place] [address] Apr, [facility] [address] [place] [id number] [address] [place] [address] Apr, Bipolar disorder, unspecifie d F31.9 [facility] [address] [id number] [address] [place] [address] Apr, Bipolar disorder, unspecifie d F31.9 [facility] [address] [facility] [id number] [address] [place] [address] Apr, [facility] [address] [id number] [address] [place] [address] March, Bipolar disorder, unspecifie d F31.9 ; Attention deficit hyperactivity disorder (ADHD), combined type F90.2 ; Posttraumatic stress disorder F43.10 and Other group home (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 Z79.8[address] [place] [address] VICENTA SOLIMAN [id number] [place] [address] March, Dental examination Z01.20 and Caries K02 .9 [facility] [address] [facility] [id number] [address] [place] [address] Feb, Bipolar disorder, unspecifie d F31.9 [facility] [address] [facility] [id number] [address] [place] [address] Jan, 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 requiring routine preventive dental care K08.9 ; Dental examination Z01.20 and Caries K02.9 [facility] [address] [facility] [id number] [address] [place] [address] Jan, Bipolar disorder, unspecifie d F31.9 [facility] [address] [facility] [id number] [address] [place] [address] Dec, Bipolar disorder, unspecifie d F31.9 ; Attention deficit hyperactivity disorder (ADHD), combined type F90.2 and Posttraumatic stress disorder F43.10 [facility] [address] [facility] [id number] [address] [place] [address] Oct, Sore throat J02.9 [facility] [address] [facility] [id number] [address] [place] [address] Oct, [facility] [address] [id number] [address] [place] [address] Oct, Bipolar disorder, unspecifie d F31.9 [facility] [address] [id number] [address] [place] [id number] Sep, 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 requiring routine preventive dental care K08.9 [facility] [address] [facility] [id number] [address] [place] [address] Sep, Bipolar disorder, unspecifie d F31.9 ; Attention deficit hyperactivity disorder (ADHD), combined type F90.2 and Posttraumatic stress disorder F43.10 [facility] [address] [id number] [address] [place] [address] Aug, Lymphadenopathy of left cerv ical region R59.0 [facility] [address] [facility] [id number] [address] [place] [address] 05 Aug, 2018 Encounter for immunization Z 23 [facility] [address] [facility] [id number] [address] [place] [address] Aug, 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 [facility] [address] [facility] [id number] [address] [place] [address] Jul, Bipolar disorder, unspecifie d F31.9 [facility] [address] [facility] [id number] [address] [place] [address] Jun, Bipolar disorder, unspecifie d F31.9 [facility] [address] [facility] [id number] [address] [place] [address] Jun, [facility] [address] [facility] [id number] [address] [place] [address] Jun, Bipolar disorder, unspecifie d F31.9 ; Attention deficit hyperactivity disorder (ADHD), combined type F90.2 ; Posttraumatic stress disorder F43.10 and Other group home (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 Z79.899 [facility] [address] [id number] [address] [place] [id number] Jun, Dental examination Z01.20 [facility] [address] [facility] [id number] [address] [place] [address] May, [facility] [address] [facility] [id number] [address] [place] [address] Apr, Bipolar disorder, unspecifie d F31.9 [facility] [address] [facility] [id number] [address] [place] [address] March, Bipolar disorder, unspecifie d F31.9 ; Attention deficit hyperactivity disorder (ADHD), combined type F90.2 and Posttraumatic stress disorder F43.10 [facility] [address] [facility] [id number] [address] [place] [address] Feb, [facility] [address] [facility] [id number] [address] [place] [address] Feb, Insect bite (nonvenomous), l eft knee, initial encounter S80.262A and Bitten or stung by nonvenomous insect and other nonvenomous arthropods, initial encounter W57.XXXA [facility] [address] [facility] [id number] [address] [place] [address] Feb, Bipolar disorder, unspecifie d F31.9 [facility] [address] [id number] [address] [place] [id number] Feb, Dental examination Z01.20 [facility] [address] [facility] [id number] [address] [place] [address] Feb, Bipolar disorder, unspecifie d F31.9 ; Attention deficit hyperactivity disorder (ADHD), combined type F90.2 and Posttraumatic stress disorder F43.10 [facility] [address] [id number] [address] [place] [id number] Feb, Dental examination Z01.20 [facility] [address] [facility] [id number] [address] [place] [address] Jan, Bipolar disorder, unspecifie d F31.9 [facility] [address] [facility] [id number] [address] [place] [address] Jan, Attention deficit hyperactiv ity disorder (ADHD), combined type F90.2 [facility] [address] [address] Dec, Posttraumatic stress disorde r F43.10 [facility] [address] [place] [id number] [place] [address] Dec, Posttraumatic stress disorde r F43.10 [facility] [address] [id number] Nov, Dental examination Z01.20 [facility] [address] [id number] Nov, Dental examination Z01.20 [facility] [address] [id number] Nov, Encounter for dental exam an d cleaning w/o abnormal findings Z01.20 [facility] [address] [address] Sep, Bipolar disorder, unspecifie d F31.9 ; Posttraumatic stress disorder F43.10 and Attention deficit hyperactivity disorder (ADHD), combined type F90.2 [place] [address] [address] 09 Aug, 2017 Posttraumatic stress disorde r F43.10 [place] [address] [address] 15 Jul, 2017 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.899 [place] [address] [place] [id number] [place] [address] 11 Jul, 2017 Bipolar disorder, unspecifie d F31.9 ; Attention deficit hyperactivity disorder (ADHD), combined type F90.2 and Posttraumatic stress disorder F43.10 [facility] [address] [place] [id number] [place] [address] Jun, Bipolar disorder, unspecifie d F31.9 ; Posttraumatic stress disorder F43.10 ; Attention deficit hyperactivity disorder (ADHD), combined type F90.2 and 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 [facility] [address] [facility] [id number] [address] [place] [address] March, Bipolar disorder, unspecifie d F31.9 ; Posttraumatic stress disorder F43.10 and Attention deficit hyperactivity disorder (ADHD), combined type F90.2 [facility] [address] [facility] [id number] [address] [place] [address] Dec, Bipolar disorder, unspecifie d F31.9 ; Posttraumatic stress disorder F43.10 and Attention deficit hyperactivity disorder (ADHD), combined type F90.2 [facility] [address] [facility] [id number] [address] [place] [address] Dec, [facility] [address] [facility] [id number] [address] [place] [address] Sep, [facility] [address] [facility] [id number] [address] [place] [address] Aug, Bipolar disorder, unspecifie d F31.9 ; Posttraumatic stress disorder F43.10 and Attention deficit hyperactivity disorder (ADHD), combined type F90.2 [facility] [address] [facility] [id number] [address] [place] [address] Jun, [facility] [address] [facility] [id number] [address] [place] [address] March, [facility] [address] [facility] [id number] [address] [place] [address] Feb, Bipolar disorder, unspecifie d F31.9 ; Attention deficit hyperactivity disorder (ADHD), combined type F90.2 and Posttraumatic stress disorder F43.10 [facility] [address] [id number] [address] [place] [address] Feb, [facility] [address] [facility] [id number] [address] [place] [address] Feb, [facility] [address] [id number] [address] [place] [address] Feb, [facility] [address] [facility] [id number] [address] [place] [address] Jan, [facility] [address] [id number] [address] [place] [address] [id number] Dec, Dental examination Z01.20 [facility] [address] [id number] [address] [place] [address] Sep, [facility] [address] [facility] [id number] [address] [place] [address] Sep, Attention deficit hyperactiv ity disorder (ADHD), combined type F90.2 ; Posttraumatic stress disorder F43.10 and Bipolar disorder, unspecified F31.9 [facility] [address] [facility] [id number] [address] [place] [address] Aug, [facility] [address] [facility] [id number] [address] [place] [address] Aug, [facility] [address] [facility] [id number] [address] [place] [address] Jul, [facility] [address] [facility] [id number] [address] [place] [address] May, Bipolar disorder, unspecifie d 296.80 ; 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.00 and Posttraumatic stress disorder 309.81 [facility] [address] [facility] [id number] [address] [place] [address] May, [facility] [address] [facility] [id number] [address] [place] [address] May, [facility] [address] [facility] [id number] [address] [place] [address] May, [facility] [address] [facility] [id number] [address] [place] [address] Apr, [facility] [address] [id number] [address] [place] [address], [place] [address] Apr, [facility] [address] [id number] [address] [place] [address], [place] [address] Apr, [facility] [address] [id number] [address] [place] [address], [place] [address] March, [facility] [address] [id number] [address] [place] [address], [place] [address] March, [facility] [address] [id number] [address] [place] [address], [place] [address] March, [facility] [address] [id number] [address] [place] [address], [place] [address] Feb, [facility] [address] [id number] [address] [place] [address], [place] [address] Feb, [facility] [address] [id number] [address] [place] [address], [place] [address] Jan, [facility] [address] [id number] [address] [place] [address], [place] [address] Jan, [facility] [address] [id number] [address] [place] [address], [place] [address] Jan, [facility] [address] [id number] [address] [place] [address], [place] [address] Jan, [facility] [address] [id number] [address] [place] [address], [place] [address] Jan, [facility] [address] [id number] [address] [place] [address], [place] [address] Jan, [facility] [address] [id number] [address] [place] [address], [place] [address] Jan, [facility] [address] [id number] [address] [place] [address], [place] [address] Jan, [facility] [address] [id number] [address] [place] [address], [place] [address] Jan, [facility] [address] [id number] [address] [place] [address], [place] [address] Jan, 2014 [facility] [address] [id number] [address] [place] [address], [place] [address] Dec, 2014 [facility] [address] [id number] [address] [place] [address], [place] [address] Dec, 2014 [facility] [address] [id number] [address] [place] [address], [place] [address] Dec, 2014 [facility] [address] [id number] [address] [place] [address], [place] [address] Dec, 2014 [facility] [address] [id number] [address] [place] [address], [place] [address] Oct, [facility] [address] [id number] [address] [place] [address], [place] [address] Oct, [facility] [address] [id number] [address] [place] [address], [place] [address] Oct, [facility] [address] [id number] [address] [place] [address], [place] [address] Oct, [facility] [address] [id number] [address] [place] [address], [place] [address] Oct, [facility] [address] [id number] [address] [place] [address], [place] [address] Oct, [facility] [address] [id number] [address] [place] [address], [place] [address] Oct, [facility] [address] [id number] [address] [place] [address], [place] [address] Sep, [facility] [address] [id number] [address] [place] [address], [place] [address] Sep, [facility] [address] [id number] [address] [place] [address], [place] [address] Sep, [facility] [address] [id number] [address] [place] [address], [place] [address] Sep, [facility] [address] [id number] [address] [place] [address], [place] [address] Sep, [facility] [address] [id number] [address] [place] [address], [place] [address] Sep, [facility] [address] [id number] [address] [place] [address], [place] [address] Sep, [facility] [address] [id number] [address] [place] [address], [place] [address] Sep, [facility] [address] [id number] [address] [place] [address], [place] [address] Aug, [facility] [address] [id number] [address] [place] [address], [place] [address] Aug, [facility] [address] [id number] [address] [place] [address], [place] [address] Aug, [facility] [address] [id number] [address] [place] [address], [place] [address] Aug, [facility] [address] [id number] [address] [place] [address], [place] [address] Jul, [facility] [address] [id number] [address] [place] [address], [place] [address] Jul, [facility] [address] [id number] [address] [place] [address], [place] [address] Jul, [facility] [address] [id number] [address] [place] [address], [place] [address] Jul, [facility] [address] [id number] [address] [place] [address], [place] [address] Jun, [facility] [address] [id number] [address] [place] [address], [place] [address] Jun, [facility] [address] [id number] [address] [place] [address], [place] [address] Jun, [facility] [address] [id number] [facility] [place] [address] Jun, [facility] [address] [id number] [facility] [place] [address] May, [facility] [address] [id number] [facility] [place] [address] May, [facility] [address] [id number] [facility] [place] [address] May, [facility] [address] [id number] [address] [place] [address], [place] [address] May, [facility] [address] [id number] [address] [place] [address], [place] [address] Apr, [facility] [address] [id number] [address] [place] [address], [place] [address] Apr, [facility] [address] [id number] [address] [place] [address], [place] [address] Apr, [facility] [address] [id number] [address] [place] [address], [place] [address] Apr, [facility] [address] [id number] [address] [place] [address], [place] [address] Apr, [facility] [address] [id number] [address] [place] [address], [place] [address] Apr, [facility] [address] [id number] [address] [place] [address], [place] [address] Apr, [facility] [address] [id number] [address] [place] [address], [place] [address] Apr, [facility] [address] [id number] [address] [place] [address], [place] [address] Apr, [facility] [address] [id number] [address] [place] [address], [place] [address] Apr, [facility] [address] [id number] [address] [place] [address], [place] [address] Apr, [facility] [address] [id number] [facility] [place] [address] Apr, [facility] [address] [id number] [address] [place] [address], [place] [address] Apr, [facility] [address] [id number] [address] [place] [address], [place] [address] March, [facility] [address] [id number] [address] [place] [address], [place] [id number] March, [facility] [address] [id number] [address] [place] [address], [place] [id number] March, [facility] [address] [id number] [address] [place] [address], [place] [id number] March, [facility] [address] [id number] [address] [place] [address], [place] [id number] Jan, [facility] [place] [facility] [address] [id number] [address] [place] [address], [place] [id number] Jan, [facility] [place] [facility] [address] [id number] [address] [place] [address], [place] [id number] Jan, [facility] [place] [facility] [address] [id number] [address] [place] [address], [place] [id number] Jan, [facility] [place] [facility] [address] [id number] [address] [place] [address], [place] [id number] Jan, [facility] [place] [facility] [address] [id number] [address] [place] [address], [place] [id number] Jan, [facility] [place] [facility] [address] [id number] [address] [place] [address], [place] [id number] Dec, [facility] [place] [facility] [address] [id number] [address] [place] [address], [place] [id number] Dec, [facility] [place] [facility] [address] [id number] [address] [place] [address], [place] [id number] Dec, [facility] [place] [facility] [address] [id number] [address] [place] [id number] Dec, [facility] [address] [id number] [address] [place] [address], [place] [id number] Nov, [facility] [address] [id number] [address] [place] [address], [place] [id number] Nov, [facility] [address] [id number] [address] [place] [address], [place] [id number] Nov, [facility] [address] [id number] [address] [place] [address], [place] [id number] Nov, [facility] [address] [id number] [address] [place] [address], [place] [id number] Oct, [facility] [address] [id number] [address] [place] [address], [place] [id number] Oct, [facility] [address] [id number] [address] [place] [address], [place] [id number] Oct, [facility] [address] [id number] [address] [place] [address], [place] [id number] Oct, [facility] [address] [id number] [address] [place] [address], [place] [id number] Oct, [facility] [address] [id number] [address] [place] [address], [place] [id number] Oct, [facility] [address] [id number] [place] [address], [place] [address] Oct, [facility] [address] [id number] [address] [place] [address], [place] [address] Oct, [facility] [address] [id number] [address] [place] [address], [place] [address] Sep, [facility] [address] [id number] [address] [place] [address], [place] [address] Sep, [facility] [address] [id number] [address] [place] [address], [place] [address] Jul, [facility] [address] [id number] [address] [place] [address], [place] [id number] 12 Jul, 2013 [facility] [address] [id number] [address] [place] [address], [place] [id number] 09 Jul, 2013 [facility] [address] [id number] [address] [place] [address], [place] [id number] 07 Jul, 2013 [facility] [address] [id number] [address] [place] [address], [place] [address] Jun, [facility] [address] [id number] [address] [place] [address], [place] [id number] Jun, [facility] [address] [id number] [address] [place] [address], [place] [id number] May, [facility] [address] [id number] [address] [place] [address], [place] [id number] Apr, [facility] [address] [id number] [address] [place] [address], [place] [id number] Apr, [facility] [address] [id number] [address] [place] [address], [place] [address] Apr, [facility] [address] [id number] [address] [place] [address], [place] [id number] March, [facility] [address] [id number] [address] [place] [address], [place] [id number] March, [facility] [address] [id number] [address] [place] [id number] Feb, [facility] [address] [id number] [address] [place] [address], [place] [id number] Jan, [facility] [address] [id number] [address] [place] [address], [place] [address] Jan, [facility] [address] [id number] [address] [place] [id number] Dec, [facility] [address] [id number] [address] [place] [id number] Dec, [facility] [address] [id number] [address] [place] [address], [place] [address] Nov, [facility] [address] [id number] [address] [place] [address] Nov, [facility] [address] [id number] [address] [place] [address], [place] [address] Nov, [facility] [address] [id number] [address] [place] [address], [place] [id number] Oct, [facility] [address] [id number] [address] [place] [address], [place] [id number] Oct, [facility] [address] [id number] [address] [place] [address], [place] [id number] Oct, [facility] [address] [id number] [address] [place] [address], [place] [address] Oct, [facility] [address] [id number] [address] [place] [address], [place] [address] Sep, [facility] [address] [id number] [address] [place] [address], [place] [address] Sep, [facility] [address] [id number] [address] [place] [address], [place] [address] Sep, [facility] [address] [id number] [address] [place] [address], [place] [id number] Sep, [facility] [address] [id number] [address] [place] [id number] Sep, [facility] [address] [id number] [address] [place] [address], [place] [address] Sep, [facility] [address] [id number] [address] [place] [address], [place] [address] Aug, [facility] [address] [id number] [address] [place] [address], [place] [address] Jul, [facility] [address] [id number] [address] [place] [address], [place] [address] 19 Jul, 2012 [facility] [address] [id number] [address] [place] [address], [place] [id number] 18 Jul, 2012 [facility] [address] [id number] [address] [place] [address], [place] [id number] 14 Jul, 2012 [facility] [address] [id number] [address] [place] [address], [place] [address] Jun, [facility] [address] [id number] [address] [place] [address], [place] [address] Jun, [facility] [address] [id number] [address] [place] [address], [place] [id number] Jun, [facility] [address] [id number] [address] [place] [address], [place] [address] Jun, [facility] [address] [id number] [address] [place] [address], [place] [address] May, [facility] [address] [id number] [address] [place] [address], [place] [address] Apr, [facility] [address] [id number] [address] [place] [address], [place] [address] March, [facility] [address] [id number] [address] [place] [address], [place] [address] March, [facility] [address] [id number] [address] [place] [address], [place] [address] March, [facility] [address] [id number] [address] [place] [address], [place] [address] Feb, [facility] [address] [id number] [address] [place] [address], [place] [address] Feb, [facility] [address] [id number] [address] [place] [address], [place] [address] Jan, [facility] [address] [id number] [address] [place] [address] [address] Jan, [facility] [address] [id number] [address] [place] [address], [place] [address] Jan, [facility] [address] [id number] [address] [place] [address], [place] [address] Dec, [facility] [address] [id number] [address] [place] [address], [place] [address] Dec, [facility] [address] [id number] [address] [place] [address], [place] [address] Nov, [facility] [address] [id number] [address] [place] [address], [place] [address] Nov, [facility] [address] [id number] [address] [place] [address], [place] [address] Nov, [facility] [address] [id number] [address] [place] [address], [place] [address] Nov, [facility] [address] [id number] [address] [place] [address], [place] [address] Nov, [facility] [address] [id number] [address] [place] [address], [place] [address] Oct, [facility] [address] [id number] [address] [place] [address], [place] [id number] Oct, [facility] [address] [id number] [address] [place] [address], [place] [address] Oct, [facility] [address] [id number] [address] [place] [address], [place] [address] Oct, [facility] [address] [id number] [address] [place] [address], [place] [address] Sep, [facility] [address] [id number] [address] [place] [address], [place] [address] Sep, [facility] [address] [id number] [address] [place] [address], [place] [address] Sep, [facility] [address] [id number] [address] [place] [id number] Aug, [facility] [address] [facility] [id number] [address] [place] [id number] Oct, [facility] [address] [facility] [id number] [address] [place] [id number] Oct, [facility] [address] [facility] [id number] [address] [place] [id number] Oct, [facility] [address] [facility] [id number] [address] [place] [id number] Oct, IMMUNIZATIONS No Known Immunizations SOCIAL HISTORY Never Assessed REASON FOR VISIT PLAN OF CARE VITAL SIGNS Height 78 in 2014-07-04 Weight 217.5 lbs 2014-07-04 Temperature 98.9 degrees Fahrenheit 2014-07-04 Heart Rate 76 bpm 2014-07-04 Respiratory Rate 24 2014-07-04 Blood pressure systolic 110 mmHg 2014-07-04 Blood pressure diastolic 82 mmHg 2014-07-04 MEDICATIONS Unknown Medications RESULTS No Results PROCEDURES No Known procedures INSTRUCTIONS MEDICATIONS ADMINISTERED No Known Medications MEDICAL (GENERAL) HISTORY Type Description Date Medical History Guardian requests that we do not explain any treatment to patient! Surgical History No know Surgical history
--- OUTSIDE RECORDS SUMMARY | 2020-04-25 14:54 | XMS REPORT ---
Author Author Ronna Blackmon Doctor Organization 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 Active 67606846 Problem Posttraumatic stress disorder 309.81 Active 22493679 Problem Bipolar disorder, unspecified 296.80 Active 07543073 Problem Attention deficit hyperactivity disorder (ADHD), combi dylon type F90.2 Active [id number] ALLERGIES No Information ENCOUNTERS Encounter Location Date Diagnosis [facility] [address] [facility] [id number] [address] [place] [phone] Jun, [facility] [address] [id number], [place] [address] May, Caries K02.9 [facility] [address] [id number], [place] [address] May, Caries K02.[address] [facility] [address] [place] [id number] [place] [address] May, 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 requiring routine preventive dental care K08.9 [facility] [address] [facility] [id number] [address] [place] [address] Apr, Bipolar disorder, unspecifie d F31.9 [facility] [address] [facility] [id number] [address] [place] [address] Apr, [facility] [address] [place] [id number] [address] [place] [address] Apr, Bipolar disorder, unspecifie d F31.9 [facility] [address] [id number] [address] [place] [address] Apr, Bipolar disorder, unspecifie d F31.9 [facility] [address] [facility] [id number] [address] [place] [address] Apr, [facility] [address] [id number] [address] [place] [address] March, Bipolar disorder, unspecifie d F31.9 ; Attention deficit hyperactivity disorder (ADHD), combined type F90.2 ; Posttraumatic stress disorder F43.10 and [facility] [place] [facility] 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 Z79.899 [address] [place] [address] VICENTA SOLIMAN [id number] [place] [address] March, Dental examination Z01.20 and Caries K02 .9 [facility] [address] [facility] [id number] [address] [place] [address] Feb, Bipolar disorder, unspecifie d F31.9 [facility] [address] [facility] [id number] [address] [place] [address] Jan, 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 requiring routine preventive dental care K08.9 ; Dental examination Z01.20 and Caries K02.9 [facility] [address] [facility] [id number] [address] [place] [address] Jan, Bipolar disorder, unspecifie d F31.9 [facility] [address] [facility] [id number] [address] [place] [address] Dec, Bipolar disorder, unspecifie d F31.9 ; Attention deficit hyperactivity disorder (ADHD), combined type F90.2 and Posttraumatic stress disorder F43.10 [facility] [address] [facility] [id number] [address] [place] [address] Oct, Sore throat J02.9 [facility] [address] [facility] [id number] [address] [place] [address] Oct, [facility] [address] [id number] [address] [place] [address] Oct, Bipolar disorder, unspecifie d F31.9 [facility] [address] [id number] [address] [place] [id number] Sep, 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 requiring routine preventive dental care K08.9 [facility] [address] [facility] [id number] [address] [place] [address] Sep, Bipolar disorder, unspecifie d F31.9 ; Attention deficit hyperactivity disorder (ADHD), combined type F90.2 and Posttraumatic stress disorder F43.10 [facility] [address] [id number] [address] [place] [address] Aug, Lymphadenopathy of left cerv ical region R59.0 [facility] [address] [facility] [id number] [address] [place] [address] 05 Aug, 2018 Encounter for immunization Z 23 [facility] [address] [facility] [id number] [address] [place] [address] Aug, 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 Z79.899 [facility] [address] [facility] [id number] [address] [place] [address] Jul, Bipolar disorder, unspecifie d F31.9 [facility] [address] [facility] [id number] [address] [place] [address] Jun, Bipolar disorder, unspecifie d F31.9 [facility] [address] [facility] [id number] [address] [place] [address] Jun, [facility] [address] [facility] [id number] [address] [place] [address] Jun, Bipolar disorder, unspecifie d F31.9 ; Attention deficit hyperactivity disorder (ADHD), combined type F90.2 ; Posttraumatic stress disorder F43.10 and [place] [facility] 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 Z79.899 [facility] [address] [id number] [address] [place] [id number] Jun, Dental examination Z01.20 [facility] [address] [facility] [id number] [address] [place] [address] May, [facility] [address] [facility] [id number] [address] [place] [address] Apr, Bipolar disorder, unspecifie d F31.9 [facility] [address] [facility] [id number] [address] [place] [address] March, Bipolar disorder, unspecifie d F31.9 ; Attention deficit hyperactivity disorder (ADHD), combined type F90.2 and Posttraumatic stress disorder F43.10 [facility] [address] [facility] [id number] [address] [place] [phone] Feb, [facility] [address] [facility] [id number] [address] [place] [phone] Feb, Insect bite (nonvenomous), l eft knee, initial encounter S80.262A and Bitten or stung by nonvenomous insect and other nonvenomous arthropods, initial encounter W57.XXXA [facility] [address] [facility] [id number] [address] [place] [phone] Feb, Bipolar disorder, unspecifie d F31.9 [facility] [address] [id number] [address] [place] [id number] Feb, Dental examination Z01.20 [facility] [address] [facility] [id number] [address] [place] [address] Feb, Bipolar disorder, unspecifie d F31.9 ; Attention deficit hyperactivity disorder (ADHD), combined type F90.2 and Posttraumatic stress disorder F43.10 [facility] [address] [id number] [address] [place] [id number] Feb, Dental examination Z01.20 [facility] [address] [facility] [id number] [address] [place] [address] Jan, Bipolar disorder, unspecifie d F31.9 [facility] [address] [facility] [id number] [address] [place] [address] Jan, Attention deficit hyperactiv ity disorder (ADHD), combined type F90.2 [facility] [address] [address] Dec, Posttraumatic stress disorde r F43.10 [facility] [address] [place] [address] [id number] [place] [address] Dec, Posttraumatic stress disorde r F43.10 [facility] [address] [id number] Nov, Dental examination Z01.20 [facility] [address] [id number] Nov, Dental examination Z01.20 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 Z79.899 [place] [address] [place] [id number] [place] [address] 11 Jul, 2017 Bipolar disorder, unspecifie d F31.9 ; Attention deficit hyperactivity disorder (ADHD), combined type F90.2 and Posttraumatic stress disorder F43.10 [facility] [id number] [place] [address] Jun, Bipolar disorder, unspecifie d F31.9 ; Posttraumatic stress disorder F43.10 ; Attention deficit hyperactivity disorder (ADHD), combined type F90.2 and 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 Z79.899 [facility] [address] [facility] [id number] [address] [place] [address] March, Bipolar disorder, unspecifie d F31.9 ; Posttraumatic stress disorder F43.10 and Attention deficit hyperactivity disorder (ADHD), combined type F90.2 [facility] [address] [facility] [id number] [address] [place] [phone] Dec, Bipolar disorder, unspecifie d F31.9 ; Posttraumatic stress disorder F43.10 and Attention deficit hyperactivity disorder (ADHD), combined type F90.2 [facility] [address] [facility] [id number] [address] [place] [address] Dec, [facility] [address] [facility] [id number] [address] [place] [phone] Sep, [facility] [address] [facility] [id number] [address] [place] [address] Aug, Bipolar disorder, unspecifie d F31.9 ; Posttraumatic stress disorder F43.10 and Attention deficit hyperactivity disorder (ADHD), combined type F90.2 [facility] [address] [facility] [id number] [address] [place] [address] Jun, [facility] [address] [facility] [id number] [address] [place] [phone] March, [facility] [address] [facility] [id number] [address] [place] [address] Feb, Bipolar disorder, unspecifie d F31.9 ; Attention deficit hyperactivity disorder (ADHD), combined type F90.2 and Posttraumatic stress disorder F43.10 [facility] [address] [id number] [address] [place] [phone] Feb, [facility] [address] [facility] [id number] [address] [place] [phone] Feb, [facility] [address] [id number] [address] [place] [phone] Feb, [facility] [address] [facility] [id number] [address] [place] [address] Jan, [facility] [address] [id number] [address] [place] [address] [id number] Dec, Dental examination Z01.20 [facility] [address] [id number] [address] [place] [address] Sep, [facility] [address] [facility] [id number] [address] [place] [address] Sep, Attention deficit hyperactiv ity disorder (ADHD), combined type F90.2 ; Posttraumatic stress disorder F43.10 and Bipolar disorder, unspecified F31.9 [facility] [address] [facility] [id number] [address] [place] [address] Aug, [facility] [address] [facility] [id number] [address] [place] [address] Aug, [facility] [address] [facility] [id number] [address] [place] [phone] Jul, [facility] [address] [facility] [id number] [address] [place] [address] May, Bipolar disorder, unspecifie d 296.80 ; 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.00 and Posttraumatic stress disorder 309.81 [facility] [address] [facility] [id number] [address] [place] [phone] May, [facility] [address] [facility] [id number] [address] [place] [address] May, [facility] [address] [facility] [id number] [address] [place] [phone] May, [facility] [address] [facility] [id number] [address] [place] [phone] Apr, [facility] [address] [id number] [address] [place] [address], [place] [address] Apr, [facility] [address] [id number] [address] [place] [address], [place] [address] Apr, [facility] [address] [id number] [address] [place] [address], [place] [address] March, [facility] [address] [id number] [address] [place] [address], [place] [address] March, [facility] [address] [id number] [address] [place] [address], [place] [address] March, [facility] [address] [id number] [address] [place] [address], [place] [address] Feb, [facility] [address] [id number] [address] [place] [address], [place] [address] Feb, [facility] [address] [id number] [address] [place] [address], [place] [address] Jan, [facility] [address] [id number] [address] [place] [address], [place] [address] Jan, [facility] [address] [id number] [address] [place] [address], [place] [address] Jan, [facility] [address] [id number] [address] [place] [address], [place] [address] Jan, [facility] [address] [id number] [address] [place] [address], [place] [address] Jan, [facility] [address] [id number] [address] [place] [address], [place] [address] Jan, [facility] [address] [id number] [address] [place] [address], [place] [address] Jan, [facility] [address] [id number] [address] [place] [address], [place] [address] Jan, [facility] [address] [id number] [address] [place] [address], [place] [address] Jan, [facility] [address] [id number] [address] [place] [address], [place] [address] Jan, 2014 [facility] [address] [id number] [address] [place] [address], [place] [address] Dec, 2014 [facility] [address] [id number] [address] [place] [address], [place] [address] Dec, 2014 [facility] [address] [id number] [address] [place] [address], [place] [address] Dec, 2014 [facility] [address] [id number] [address] [place] [address], [place] [address] Dec, 2014 [facility] [address] [id number] [address] [place] [address], [place] [address] Oct, [facility] [address] [id number] [address] [place] [address], [place] [address] Oct, [facility] [address] [id number] [address] [place] [address], [place] [address] Oct, [facility] [address] [id number] [address] [place] [address], [place] [address] Oct, [facility] [address] [id number] [address] [place] [address], [place] [address] Oct, [facility] [address] [id number] [address] [place] [address], [place] [address] Oct, [facility] [address] [id number] [address] [place] [address], [place] [address] Oct, [facility] [address] [id number] [address] [place] [address], [place] [address] Sep, [facility] [address] [id number] [address] [place] [address], [place] [address] Sep, [facility] [address] [id number] [address] [place] [address], [place] [address] Sep, [facility] [address] [id number] [address] [place] [address], [place] [address] Sep, [facility] [address] [id number] [address] [place] [address], [place] [address] Sep, [facility] [address] [id number] [address] [place] [address], [place] [address] Sep, [facility] [address] [id number] [address] [place] [address], [place] [address] Sep, [facility] [address] [id number] [address] [place] [address], [place] [address] Sep, [facility] [address] [id number] [address] [place] [address], [place] [address] Aug, [facility] [address] [id number] [address] [place] [address], [place] [address] Aug, [facility] [address] [id number] [address] [place] [address], [place] [address] Aug, [facility] [address] [id number] [address] [place] [address], [place] [address] Aug, [facility] [address] [id number] [address] [place] [address], [place] [address] Jul, [facility] [address] [id number] [address] [place] [address], [place] [address] Jul, [facility] [address] [id number] [address] [place] [address], [place] [address] Jul, [facility] [address] [id number] [address] [place] [address], [place] [address] Jul, [facility] [address] [id number] [address] [place] [address], [place] [address] Jun, [facility] [address] [id number] [address] [place] [address], [place] [address] Jun, [facility] [address] [id number] [address] [place] [address], [place] [address] Jun, [facility] [address] [id number] [facility] [place] [address] Jun, [facility] [address] [id number] [facility] [place] [address] May, [facility] [address] [id number] [facility] [place] [address] May, [facility] [address] [id number] [facility] [place] [address] May, [facility] [address] [id number] [address] [place] [address], [place] [address] May, [facility] [address] [id number] [address] [place] [address], [place] [address] Apr, [facility] [address] [id number] [address] [place] [address], [place] [address] Apr, [facility] [address] [id number] [address] [place] [address], [place] [address] Apr, [facility] [address] [id number] [address] [place] [address], [place] [address] Apr, [facility] [address] [id number] [address] [place] [address], [place] [address] Apr, [facility] [address] [id number] [address] [place] [address], [place] [address] Apr, [facility] [address] [id number] [address] [place] [address], [place] [address] Apr, [facility] [address] [id number] [address] [place] [address], [place] [address] Apr, [facility] [address] [id number] [address] [place] [address], [place] [address] Apr, [facility] [address] [id number] [address] [place] [address], [place] [address] Apr, [facility] [address] [id number] [address] [place] [address], [place] [address] Apr, [facility] [address] [id number] [facility] [place] [address] Apr, [facility] [address] [id number] [address] [place] [address], [place] [address] Apr, [facility] [address] [id number] [address] [place] [address], [place] [address] March, [facility] [place] [facility] [address] [id number] [address] [place] [address], [place] [address] March, [facility] [address] [id number] [address] [place] [address], [place] [address] March, [facility] [address] [id number] [address] [place] [address], [place] [address] March, [facility] [address] [id number] [address] [place] [address], [place] [address] Jan, [facility] [place] [facility] [address] [id number] [address] [place] [address], [place] [address] Jan, [facility] [place] [facility] [address] [id number] [address] [place] [address], [place] [address] Jan, [facility] [place] [facility] [address] [id number] [address] [place] [address], [place] [address] Jan, [facility] [place] [facility] [address] [id number] [address] [place] [address], [place] [address] Jan, [facility] [place] [facility] [address] [id number] [address] [place] [address], [place] [address] Jan, [facility] [place] [facility] [address] [id number] [address] [place] [address], [place] [address] Dec, [facility] [place] [facility] [address] [id number] [address] [place] [address], [place] [address] Dec, [facility] [place] [facility] [address] [id number] [address] [place] [address], [place] [address] Dec, [facility] [place] [facility] [address] [id number] [address] [place] [address] Dec, [facility] [address] [id number] [address] [place] [address], [place] [address] Nov, [facility] [address] [id number] [address] [place] [address], [place] [address] Nov, [facility] [address] [id number] [address] [place] [address], [place] [address] Nov, [facility] [address] [id number] [address] [place] [address], [place] [address] Nov, [facility] [address] [id number] [address] [place] [address], [place] [address] Oct, [facility] [address] [id number] [address] [place] [address], [place] [address] Oct, [facility] [address] [id number] [address] [place] [address], [place] [address] Oct, [facility] [address] [id number] [address] [place] [place] [address], [place] [address] Oct, [facility] [address] [id number] [address] [place] [address], [place] [address] Oct, [facility] [address] [id number] [address] [place] [address], [place] [address] Oct, [facility] [address] [id number] [address] [place] [address], [place] [address] Oct, [facility] [address] [id number] [address] [place] [address], [place] [address] Oct, [facility] [address] [id number] [address] [place] [address], [place] [address] Sep, [facility] [address] [id number] [address] [place] [address], [place] [address] Sep, [facility] [address] [id number] [address] [place] [address], [place] [address] Jul, [facility] [address] [id number] [address] [place] [address], [place] [address] 12 Jul, 2013 [facility] [address] [id number] [address] [place] [address], [place] [address] 09 Jul, 2013 [facility] [address] [id number] [address] [place] [address], [place] [address] 07 Jul, 2013 [facility] [address] [id number] [address] [place] [address], [place] [address] Jun, [facility] [address] [id number] [address] [place] [address], [place] [address] Jun, [facility] [address] [id number] [address] [place] [address], [place] [address] May, [facility] [address] [id number] [address] [place] [address], [place] [address] Apr, [facility] [address] [id number] [address] [place] [address], [place] [address] Apr, [facility] [address] [id number] [address] [place] [address], [place] [address] Apr, [facility] [address] [id number] [address] [place] [address], [place] [address] March, [facility] [address] [id number] [address] [place] [address], [place] [address] March, [facility] [address] [id number] [address] [place] [address] Feb, [facility] [address] [id number] [address] [place] [address], [place] [address] Jan, [facility] [address] [id number] [address] [place] [address], [place] [address] Jan, [facility] [address] [id number] [address] [place] [address] Dec, [facility] [address] [id number] [address] [place] [address] Dec, [facility] [address] [id number] [address] [place] [address], [place] [address] Nov, [facility] [address] [id number] [address] [place] [address] Nov, [facility] [address] [id number] [address] [place] [address], [place] [address] Nov, [facility] [address] [id number] [address] [place] [address], [place] [address] Oct, [facility] [address] [id number] [address] [place] [address], [place] [address] Oct, [facility] [address] [id number] [address] [place] [address], [place] [address] Oct, [facility] [address] [id number] [address] [place] [address], [place] [address] Oct, [facility] [address] [id number] [address] [place] [address], [place] [address] Sep, [facility] [address] [id number] [address] [place] [address], [place] [address] Sep, [facility] [address] [id number] [address] [place] [address], [place] [address] Sep, [facility] [address] [id number] [address] [place] [address], [place] [address] Sep, [facility] [address] [id number] [address] [place] [address] Sep, [facility] [address] [id number] [address] [place] [address], [place] [address] Sep, [facility] [address] [id number] [address] [place] [address], [place] [address] Aug, [facility] [address] [id number] [address] [place] [address], [place] [address] Jul, [facility] [address] [id number] [address] [place] [address], [place] [address] 19 Jul, 2012 [facility] [address] [id number] [address] [place] [address], [place] [address] 18 Jul, 2012 [facility] [address] [id number] [address] [place] [address], [place] [address] 14 Jul, 2012 [facility] [address] [id number] [address] [place] [address], [place] [address] Jun, [facility] [address] [id number] [address] [place] [address], [place] [address] Jun, [facility] [address] [id number] [address] [place] [address], [place] [address] Jun, [facility] [address] [id number] [address] [place] [address], [place] [address] Jun, [facility] [address] [id number] [address] [place] [address], [place] [address] May, [facility] [address] [id number] [address] [place] [address], [place] [address] Apr, [facility] [address] [id number] [address] [place] [address], [place] [address] March, [facility] [address] [id number] [address] [place] [address], [place] [address] March, [facility] [address] [id number] [address] [place] [address], [place] [address] March, [facility] [address] [id number] [address] [place] [address], [place] [address] Feb, [facility] [address] [id number] [address] [place] [address], [place] [address] Feb, [facility] [address] [id number] [address] [place] [address], [place] [address] Jan, [facility] [address] [id number] [address] [place] [address] [address] Jan, [facility] [address] [id number] [address] [place] [address], [place] [address] Jan, [facility] [address] [id number] [address] [place] [address], [place] [address] Dec, [facility] [address] [id number] [address] [place] [address], [place] [address] Dec, [facility] [address] [id number] [address] [place] [address], [place] [address] Nov, [facility] [address] [id number] [address] [place] [address], [place] [address] Nov, [facility] [address] [id number] [address] [place] [address], [place] [address] Nov, [facility] [address] [id number] [address] [place] [address], [place] [address] Nov, [facility] [address] [id number] [address] [place] [address], [place] [address] Nov, [facility] [address] [id number] [address] [place] [address], [place] [address] Oct, [facility] [address] [id number] [address] [place] [address], [place] [address] Oct, [facility] [address] [id number] [address] [place] [address], [place] [address] Oct, [facility] [address] [id number] [address] [place] [address], [place] [address] Oct, [facility] [address] [id number] [address] [place] [address], [place] [address] Sep, [facility] [address] [id number] [address] [place] [address], [place] [address] Sep, [facility] [address] [id number] [address] [place] [address], [place] [address] Sep, [facility] [address] [id number] [address] [place] [address] Aug, [facility] [address] [facility] [id number] [address] [place] [address] Oct, [facility] [address] [facility] [id number] [address] [place] [address] Oct, [facility] [address] [facility] [id number] [address] [place] [address] Oct, [facility] [address] [facility] [id number] [address] [place] [address] Oct, IMMUNIZATIONS No Known Immunizations SOCIAL HISTORY [...]
--- OUTSIDE RECORDS SUMMARY | 2020-04-25 14:54 | XMS REPORT ---
Author Author Ronna Blackmon Doctor Organization [facility] Address Unknown Phone Unavailable Care Team Providers Care Lumber Sorter Machine Name Role Phone Migration, Doctor Unavailable Unavailable PROBLEMS Type Condition ICD9-CM Code [id number] Code Onset Dates Condition S tatus SNOMED Code Problem Encounter for long-term (current) use of other medications V58.69 Active 203304946 Problem Posttraumatic stress disorder F43.10 Active 36319442 Problem Bipolar disorder, unspecified F31.9 Active 12373235 Problem 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 Active 15451462 Problem Posttraumatic stress disorder 309.81 Active 32602009 Problem Bipolar disorder, unspecified 296.80 Active 98728690 Problem Attention deficit hyperactivity disorder (ADHD), combi dylon type F90.2 Active [id number] ALLERGIES No Information ENCOUNTERS Encounter Location Date Diagnosis [facility] [address] [facility] [id number] [address] [place] [phone] Jun, OUTREACH [facility] [address] [id number], [place] [address] May, Caries K02.9 OUTREACH [facility] [address] [id number], [place] [address] May, Caries K02.9 OUTREACH [facility] [id number] [place] [phone] May, 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 requiring routine preventive dental care K08.9 [facility] [address] [facility] [id number] [address] [place] [address] Apr, Bipolar disorder, unspecifie d F31.9 [facility] [address] [facility] [id number] [address] [place] [address] Apr, [facility] [address] [place] [id number] [address] [place] [phone] Apr, Bipolar disorder, unspecifie d F31.9 [facility] [address] [id number] [address] [place] [address] Apr, Bipolar disorder, unspecifie d F31.9 [facility] [address] [facility] [id number] [address] [place] [phone] Apr, [facility] [address] [id number] [address] [place] [address] March, Bipolar disorder, unspecifie d F31.9 ; Attention deficit hyperactivity disorder (ADHD), combined type F90.2 ; Posttraumatic stress disorder F43.10 and Other assisted (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 Z79.899 OUTREACH [place] [address] [address]IM[address] [id number] [place] [address] March, Dental examination Z01.20 and Caries K02 .9 [facility] [address] [facility] [id number] [address] [place] [address] Feb, Bipolar disorder, unspecifie d F31.9 [facility] [address] [facility] [id number] [address] [place] [address] Jan, 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 requiring routine preventive dental care K08.9 ; Dental examination Z01.20 and Caries K02.9 [facility] [address] [facility] [id number] [address] [place] [address] Jan, Bipolar disorder, unspecifie d F31.9 [facility] [address] [facility] [id number] [address] [place] [phone] Dec, Bipolar disorder, unspecifie d F31.9 ; Attention deficit hyperactivity disorder (ADHD), combined type F90.2 and Posttraumatic stress disorder F43.10 [facility] [address] [facility] [id number] [address] [place] [address] Oct, Sore throat J02.9 [facility] [address] [facility] [id number] [address] [place] [address] Oct, [facility] [address] [id number] [address] [place] [address] Oct, Bipolar disorder, unspecifie d F31.9 [facility] [address] [id number] [address] [place] [id number] Sep, 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 requiring routine preventive dental care K08.9 [facility] [address] [facility] [id number] [address] [place] [address] Sep, Bipolar disorder, unspecifie d F31.9 ; Attention deficit hyperactivity disorder (ADHD), combined type F90.2 and Posttraumatic stress disorder F43.10 [facility] [address] [id number] [address] [place] [address] Aug, Lymphadenopathy of left cerv ical region R59.0 [facility] [address] [facility] [id number] [address] [place] [phone] 05 Aug, 2018 Encounter for immunization Z 23 [facility] [address] 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 [id number] [address] [place] [address] Jul, Bipolar disorder, unspecifie d F31.9 [facility] [address] [facility] [id number] [address] [place] [phone] Jun, Bipolar disorder, unspecifie d F31.9 [facility] [address] [facility] [id number] [address] [place] [address] Jun, [facility] [address] [facility] [id number] [address] [place] [address] Jun, Bipolar disorder, unspecifie d F31.9 ; Attention deficit hyperactivity disorder (ADHD), combined type F90.2 ; Posttraumatic stress disorder F43.10 and Other assisted (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 Z79.899 [facility] [address] [id number] [address] [place] [id number] Jun, Dental examination Z01.20 [facility] [address] [facility] [id number] [address] [place] [phone] May, [facility] [address] [facility] [id number] [address] [place] [address] Apr, Bipolar disorder, unspecifie d F31.9 [facility] [address] [facility] [id number] [address] [place] [address] March, Bipolar disorder, unspecifie d F31.9 ; Attention deficit hyperactivity disorder (ADHD), combined type F90.2 and Posttraumatic stress disorder F43.10 [facility] [address] [facility] [id number] [address] [place] [phone] Feb, [facility] [address] [facility] [id number] [address] [place] [address] Feb, Insect bite (nonvenomous), l eft knee, initial encounter S80.262A and Bitten or stung by nonvenomous insect and other nonvenomous arthropods, initial encounter W57.XXXA [facility] [address] [facility] [id number] [address] [place] [address] Feb, Bipolar disorder, unspecifie d F31.9 [facility] [address] [id number] [address] [place] [address] [id number] Feb, Dental examination Z01.20 [facility] [address] [facility] [id number] [address] [place] [phone] Feb, Bipolar disorder, unspecifie d F31.9 ; Attention deficit hyperactivity disorder (ADHD), combined type F90.2 and Posttraumatic stress disorder F43.10 [facility] [address] [id number] [address] [place] [address] [id number] Feb, Dental examination Z01.20 [facility] [address] [facility] [id number] [address] [place] [address] Jan, Bipolar disorder, unspecifie d F31.9 [facility] [address] [facility] [id number] [address] [place] [address] Jan, Attention deficit hyperactiv ity disorder (ADHD), combined type F90.2 [facility] [address] [address] Dec, Posttraumatic stress disorde r F43.10 [facility] [address] [id number] [place] [address] Dec, Posttraumatic stress disorde r F43.10 [facility] [address] [id number] Nov, Dental examination Z01.20 [facility] [address] [id number] Nov, Dental examination Z01.20 [facility] [address] [id number] Nov, Encounter for dental exam an d cleaning w/o abnormal findings Z01.20 [facility] [address] [address] Sep, Bipolar disorder, unspecifie d F31.9 ; Posttraumatic stress disorder F43.10 and Attention deficit hyperactivity disorder (ADHD), combined type F90.2 [place] [address] [address] 09 Aug, 2017 Posttraumatic stress disorde r F43.10 [place] [address] [address] 15 Jul, 2017 Other 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 project manager (current) dr nubia briceno Z79.899 [place] [address] [place] [id number] [place] [phone] 11 Jul, 2017 Bipolar disorder, unspecifie d F31.9 ; Attention deficit hyperactivity disorder (ADHD), combined type F90.2 and Posttraumatic stress disorder F43.10 [facility] [id number] [place] [address] Jun, Bipolar disorder, unspecifie d F31.9 ; Posttraumatic stress disorder F43.10 ; Attention deficit hyperactivity disorder (ADHD), combined type F90.2 and Other 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 project manager (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 Z79.899 [facility] [address] [facility] [id number] [address] [place] [phone] March, Bipolar disorder, unspecifie d F31.9 ; Posttraumatic stress disorder F43.10 and Attention deficit hyperactivity disorder (ADHD), combined type F90.2 [facility] [address] [facility] [id number] [address] [place] [phone] Dec, Bipolar disorder, unspecifie d F31.9 ; Posttraumatic stress disorder F43.10 and Attention deficit hyperactivity disorder (ADHD), combined type F90.2 [facility] [address] [facility] [id number] [address] [place] [phone] Dec, [facility] [address] [facility] [id number] [address] [place] [phone] Sep, [facility] [address] [facility] [id number] [address] [place] [phone] Aug, Bipolar disorder, unspecifie d F31.9 ; Posttraumatic stress disorder F43.10 and Attention deficit hyperactivity disorder (ADHD), combined type F90.2 [facility] [address] [facility] [id number] [address] [place] [address] Jun, [facility] [address] [facility] [id number] [address] [place] [phone] March, [facility] [address] [facility] [id number] [address] [place] [phone] Feb, Bipolar disorder, unspecifie d F31.9 ; Attention deficit hyperactivity disorder (ADHD), combined type F90.2 and Posttraumatic stress disorder F43.10 [facility] [address] [id number] [address] [place] [phone] Feb, [facility] [address] [facility] [id number] [address] [place] [phone] Feb, [facility] [address] [id number] [address] [place] [phone] Feb, [facility] [address] [facility] [id number] [address] [place] [id number] Jan, [facility] [address] [id number] [address] [place] [id number] Dec, Dental examination Z01.20 [facility] [address] [id number] [address] [place] [phone] Sep, [facility] [address] [facility] [id number] [address] [place] [address] Sep, Attention deficit hyperactiv ity disorder (ADHD), combined type F90.2 ; Posttraumatic stress disorder F43.10 and Bipolar disorder, unspecified F31.9 [facility] [address] [facility] [id number] [address] [place] [address] Aug, [facility] [address] [facility] [id number] [address] [place] [address] Aug, [facility] [address] [facility] [id number] [address] [place] [address] Jul, [facility] [address] [facility] [id number] [address] [place] [phone] May, Bipolar disorder, unspecifie d 296.80 ; 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.00 and Posttraumatic stress disorder 309.81 [facility] [address] [facility] [id number] [address] [place] [phone] May, [facility] [address] [facility] [id number] [address] [place] [phone] May, [facility] [address] [facility] [id number] [address] [place] [phone] May, [facility] [address] [facility] [id number] [address] [place] [phone] Apr, [facility] [address] [id number] [address] [place] [address], [place] [address] Apr, [facility] [address] [id number] [address] [place] [address], [place] [address] Apr, [facility] [address] [id number] [address] [place] [address], [place] [address] March, [facility] [address] [id number] [address] [place] [address], [place] [address] March, [facility] [address] [id number] [address] [place] [address], [place] [address] March, [facility] [address] [id number] [address] [place] [address], [place] [address] Feb, [facility] [address] [id number] [address] [place] [address], [place] [address] Feb, [facility] [address] [id number] [address] [place] [address], [place] [address] Jan, [facility] [address] [id number] [address] [place] [address], [place] [address] Jan, [facility] [address] [id number] [address] [place] [address], [place] [address] Jan, [facility] [address] [id number] [address] [place] [address], [place] [address] Jan, [facility] [address] [id number] [address] [place] [address], [place] [address] Jan, [facility] [address] [id number] [address] [place] [address], [place] [address] Jan, [facility] [address] [id number] [address] [place] [address], [place] [address] Jan, [facility] [address] [id number] [address] [place] [address], [place] [address] Jan, [facility] [address] [id number] [address] [place] [address], [place] [address] Jan, [facility] [address] [id number] [address] [place] [address], [place] [address] Jan, 2014 [facility] [address] [id number] [address] [place] [address], [place] [address] Dec, 2014 [facility] [address] [id number] [address] [place] [address], [place] [address] Dec, 2014 [facility] [address] [id number] [address] [place] [address], [place] [address] Dec, 2014 [facility] [address] [id number] [address] [place] [address], [place] [address] Dec, 2014 [facility] [address] [id number] [address] [place] [address], [place] [address] Oct, [facility] [address] [id number] [address] [place] [address], [place] [address] Oct, [facility] [address] [id number] [address] [place] [address], [place] [address] Oct, [facility] [address] [id number] [address] [place] [address], [place] [address] Oct, [facility] [address] [id number] [address] [place] [address], [place] [address] Oct, [facility] [address] [id number] [address] [place] [address], [place] [address] Oct, [facility] [address] [id number] [address] [place] [address], [place] [address] Oct, [facility] [address] [id number] [address] [place] [address], [place] [address] Sep, [facility] [address] [id number] [address] [place] [address], [place] [address] Sep, [facility] [address] [id number] [address] [place] [address], [place] [address] Sep, [facility] [address] [id number] [address] [place] [address], [place] [address] Sep, [facility] [address] [id number] [address] [place] [address], [place] [address] Sep, [facility] [address] [id number] [address] [place] [address], [place] [address] Sep, [facility] [address] [id number] [address] [place] [address], [place] [address] Sep, [facility] [address] [id number] [address] [place] [address], [place] [address] Sep, [facility] [address] [id number] [address] [place] [address], [place] [address] Aug, [facility] [address] [id number] [address] [place] [address], [place] [address] Aug, [facility] [address] [id number] [address] [place] [address], [place] [address] Aug, [facility] [address] [id number] [address] [place] [address], [place] [address] Aug, [facility] [address] [id number] [address] [place] [address], [place] [address] Jul, [facility] [address] [id number] [address] [place] [address], [place] [address] Jul, [facility] [address] [id number] [address] [place] [address], [place] [address] Jul, [facility] [address] [id number] [address] [place] [address], [place] [address] Jul, [facility] [address] [id number] [address] [place] [address], [place] [address] Jun, [facility] [address] [id number] [address] [place] [address], [place] [address] Jun, [facility] [address] [id number] [address] [place] [address], [place] [address] Jun, [facility] [address] [id number] [facility] [place] [address] Jun, [facility] [address] [id number] [facility] [place] [address] May, [facility] [address] [id number] [facility] [place] [address] May, [facility] [address] [id number] [facility] [place] [address] May, [facility] [address] [id number] [address] [place] [address], [place] [address] May, [facility] [address] [id number] [address] [place] [address], [place] [address] Apr, [facility] [address] [id number] [address] [place] [address], [place] [address] Apr, [facility] [address] [id number] [address] [place] [address], [place] [address] Apr, [facility] [address] [id number] [address] [place] [address], [place] [address] Apr, [facility] [address] [id number] [address] [place] [address], [place] [address] Apr, [facility] [address] [id number] [address] [place] [address], [place] [address] Apr, [facility] [address] [id number] [address] [place] [address], [place] [address] Apr, [facility] [address] [id number] [address] [place] [address], [place] [address] Apr, [facility] [address] [id number] [address] [place] [address], [place] [address] Apr, [facility] [address] [id number] [address] [place] [address], [place] [address] Apr, [facility] [address] [id number] [address] [place] [address], [place] [address] Apr, [facility] [address] [id number] [facility] [place] [address] Apr, [facility] [address] [id number] [address] [place] [address], [place] [address] Apr, [facility] [address] [id number] [address] [place] [address], [place] [address] March, [facility] [place] [facility] [address] [id number] [address] [place] [address], [place] [address] March, [facility] [address] [id number] [address] [place] [address], [place] [address] March, [facility] [address] [id number] [address] [place] [address], [place] [address] March, [facility] [address] [id number] [address] [place] [address], [place] [address] Jan, [facility] [place] [address] [id number] [address] [place] [address], [place] [address] Jan, [facility] [address] [id number] [address] [place] [address], [place] [address] Jan, [facility] [place] [facility] [address] [id number] [address] [place] [address], [place] [address] Jan, [facility] [place] [facility] [address] [id number] [address] [place] [address], [place] [address] Jan, [facility] [place] [facility] [address] [id number] [address] [place] [address], [place] [address] Jan, [facility] [place] [address] [id number] [address] [place] [address], [place] [address] Dec, [facility] [place] [address] [id number] [address] [place] [address], [place] [address] Dec, [facility] [place] [address] [id number] [address] [place] [address], [place] [address] Dec, [facility] [place] [facility] [address] [id number] [address] [place] [address] Dec, [facility] [address] [id number] [address] [place] [address], [place] [address] Nov, [facility] [address] [id number] [address] [place] [address], [place] [address] Nov, [facility] [address] [id number] [address] [place] [address], [place] [address] Nov, [facility] [address] [id number] [address] [place] [address], [place] [address] Nov, [facility] [address] [id number] [address] [place] [address], [place] [address] Oct, [facility] [address] [id number] [address] [place] [address], [place] [address] Oct, [facility] [address] [id number] [address] [place] [address], [place] [address] Oct, [facility] [address] [id number] [address] [place] [address], [place] [address] Oct, [facility] [address] [id number] [address] [place] [address], [place] [address] Oct, [facility] [address] [id number] [address] [place] [address], [place] [address] Oct, [facility] [address] [id number] [address] [place] [address], [place] [address] Oct, [facility] [address] [id number] [address] [place] [address], [place] [address] Oct, [facility] [address] [id number] [address] [place] [address], [place] [address] Sep, [facility] [address] [id number] [address] [place] [address], [place] [address] Sep, [facility] [address] [id number] [address] [place] [address], [place] [address] Jul, [facility] [address] [id number] [address] [place] [address], [place] [address] 12 Jul, 2013 [facility] [address] [id number] [address] [place] [address], [place] [address] 09 Jul, 2013 [facility] [address] [id number] [address] [place] [address], [place] [address] 07 Jul, 2013 [facility] [address] [id number] [address] [place] [address], [place] [address] Jun, [facility] [address] [id number] [address] [place] [address], [place] [address] Jun, [facility] [address] [id number] [address] [place] [address], [place] [address] May, [facility] [address] [id number] [address] [place] [address], [place] [address] Apr, [facility] [address] [id number] [address] [place] [address], [place] [address] Apr, [facility] [address] [id number] [address] [place] [address], [place] [address] Apr, [facility] [address] [id number] [address] [place] [address], [place] [address] March, [facility] [address] [id number] [address] [place] [address], [place] [address] March, [facility] [address] [id number] [address] [place] [id number] Feb, [facility] [address] [id number] [address] [place] [address], [place] [address] Jan, [facility] [address] [id number] [address] [place] [address], [place] [address] Jan, [facility] [address] [id number] [address] [place] [id number] Dec, [facility] [address] [id number] [address] [place] [id number] Dec, [facility] [address] [id number] [address] [place] [address], [place] [address] Nov, [facility] [address] [id number] [address] [place] [id number] Nov, [facility] [address] [id number] [address] [place] [address], [place] [address] Nov, [facility] [address] [id number] [address] [place] [address], [place] [address] Oct, [facility] [address] [id number] [address] [place] [address], [place] [address] Oct, [facility] [address] [id number] [address] [place] [address], [place] [address] Oct, [facility] [address] [id number] [address] [place] [address], [place] [address] Oct, [facility] [address] [id number] [address] [place] [address], [place] [address] Sep, [facility] [address] [id number] [address] [place] [address], [place] [address] Sep, [facility] [address] [id number] [address] [place] [address], [place] [address] Sep, [facility] [address] [id number] [address] [place] [address], [place] [address] Sep, [facility] [address] [id number] [address] [place] [phone] Sep, [facility] [address] [id number] [address] [place] [address], [place] [address] Sep, [facility] [address] [id number] [address] [place] [address], [place] [address] Aug, [facility] [address] [id number] [address] [place] [address], [place] [address] Jul, [facility] [address] [id number] [address] [place] [address], [place] [address] 19 Jul, 2012 [facility] [address] [id number] [address] [place] [address], [place] [address] 18 Jul, 2012 [facility] [address] [id number] [address] [place] [address], [place] [address] 14 Jul, 2012 [facility] [address] [id number] [address] [place] [address], [place] [address] Jun, [facility] [address] [id number] [address] [place] [address], [place] [address] Jun, [facility] [address] [id number] [address] [place] [address], [place] [address] Jun, [facility] [address] [id number] [address] [place] [address], [place] [address] Jun, [facility] [address] [id number] [address] [place] [address], [place] [address] May, [facility] [address] [id number] [address] [place] [address], [place] [address] Apr, [facility] [address] [id number] [address] [place] [address], [place] [address] March, [facility] [address] [id number] [address] [place] [address], [place] [address] March, [facility] [address] [id number] [address] [place] [address], [place] [address] March, [facility] [address] [id number] [address] [place] [address], [place] [address] Feb, [facility] [address] [id number] [address] [place] [address], [place] [address] Feb, [facility] [address] [id number] [address] [place] [address], [place] [address] Jan, [facility] [address] [id number] [address] [place] [address] [address] Jan, [facility] [address] [id number] [address] [place] [address], [place] [address] Jan, [facility] [address] [id number] [address] [place] [address], [place] [address] Dec, [facility] [address] [id number] [address] [place] [address], [place] [address] Dec, [facility] [address] [id number] [address] [place] [address], [place] [address] Nov, [facility] [address] [id number] [address] [place] [address], [place] [address] Nov, [facility] [address] [id number] [address] [place] [address], [place] [address] Nov, [facility] [address] [id number] [address] [place] [address], [place] [address] Nov, [facility] [address] [id number] [address] [place] [address], [place] [address] Nov, [facility] [address] [id number] [address] [place] [address], [place] [address] Oct, [facility] [address] [id number] [address] [place] [address], [place] [address] Oct, [facility] [address] [id number] [address] [place] [address], [place] [address] Oct, [facility] [address] [id number] [address] [place] [address], [place] [address] Oct, [facility] [address] [id number] [address] [place] [address], [place] [address] Sep, [facility] [address] [id number] [address] [place] [address], [place] [address] Sep, [facility] [address] [id number] [address] [place] [address], [place] [address] Sep, [facility] [address] [id number] [address] [place] [id number] Aug, [facility] [address] [facility] [id number] [address] [place] [id number] Oct, [facility] [address] [facility] [id number] [address] [place] [id number] Oct, [facility] [address] [facility] [id number] [address] [place] [id number] Oct, [facility] [address] [facility] [id number] [address] [place] [id number] Oct, IMMUNIZATIONS No Known Immunizations SOCIAL HISTORY [...]
--- OUTSIDE RECORDS SUMMARY | 2020-04-25 14:54 | XMS REPORT ---
Author Author Ronna PERDUE Organization [facility], [place] Address [address] [place] [address] Care Team Providers Care Stock Buyer Name Role Phone JAMES PERDUE Unavailable PROBLEMS Type Condition ICD9-CM Code [id number] Code Onset Dates Condition S tatus SNOMED Code Problem Encounter for long-term (current) use of other medications V58.69 Active 816514575 Problem Posttraumatic stress disorder F43.10 Active 41321668 Problem Bipolar disorder, unspecified F31.9 Active 23993167 Problem 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 Active 53108005 Problem Posttraumatic stress disorder 309.81 Active 90297581 Problem Bipolar disorder, unspecified 296.80 Active 46635128 Problem Attention deficit hyperactivity disorder (ADHD), combi dylon type F90.2 Active [id number] ALLERGIES No Information ENCOUNTERS Encounter Location Date Diagnosis [facility], [place] [address] [facility] [id number] [address] [place] [phone] Jun, [facility] [address] [id number] [place] [address] May, Caries K02.9 [facility] [address] [id number] [place] [address] May, Caries K02.9 [facility] [address] [facility] [id number] [place] [address] May, 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 requiring routine preventive dental care K08.9 [facility] [place] [address] [facility] [id number] [address] [place] [phone] Apr, Bipolar disorder, unspecifie d F31.9 [facility], [place] [address] [facility] [id number] [address] [place] [phone] Apr, [facility] [place] [address] [place] [id number] [address] [place] [phone] 13 Apr, 2019 Bipolar disorder, unspecifie d F31.9 [facility], [place] [address] [facility] [id number] [address] [place] [address] Apr, Bipolar disorder, unspecifie d F31.9 [facility], [place] [address] [facility] [id number] [address] [place] [phone] Apr, [facility] [place] [address] [facility] [id number] [address] [place] [address] March, Bipolar disorder, unspecifie d F31.9 ; Attention deficit hyperactivity disorder (ADHD), combined type F90.2 ; Posttraumatic stress disorder F43.10 and 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.[address] [id number] [place] [address] March, Dental examination Z01.20 and Caries K02 .9 [facility] [place] [address] [facility] [id number] [address] [place] [address] Feb, Bipolar disorder, unspecifie d F31.9 [facility], [place] [address] [facility] [id number] [address] [place] [phone] Jan, Oral health maintenance stat requiring routine preventive dental care K08.9 ; Dental examination Z01.20 and Caries K02.9 [facility] [place] [address] [facility] [id number] [address] [place] [address] Jan, Bipolar disorder, unspecifie d F31.9 [facility] [place] [address] [facility] [id number] [address] [place] [phone] Dec, Bipolar disorder, unspecifie d F31.9 ; Attention deficit hyperactivity disorder (ADHD), combined type F90.2 and Posttraumatic stress disorder F43.10 [facility] [address] [facility] [id number] [address] [place] [phone] Oct, Sore throat J02.9 [facility] [place] [address] [facility] [id number] [address] [place] [phone] Oct, [facility] [place] [address] [facility] [id number] [address] [place] [phone] Oct, Bipolar disorder, unspecifie d F31.9 [facility] [address] [facility] [id number] [address] [place] [id number] Sep, 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 requiring routine preventive dental care K08.9 [facility] [place] [address] [facility] [id number] [address] [place] [phone] Sep, Bipolar disorder, unspecifie d F31.9 ; Attention deficit hyperactivity disorder (ADHD), combined type F90.2 and Posttraumatic stress disorder F43.10 [facility] [address] [facility] [id number] [address] [place] [phone] Aug, Lymphadenopathy of left cerv ical region R59.0 [facility] [place] [address] [facility] [id number] [address] [place] [phone] Aug, Encounter for immunization Z 23 [facility] [place] [address] [facility] [id number] [address] [place] [phone] Aug, Other prison (current) dr delacruz therapy Z79.899 [facility] [place] [address] [facility] [id number] [address] [place] [phone] Jul, Bipolar disorder, unspecifie d F31.9 [facility] [place] [address] [facility] [id number] [address] [place] [phone] Jun, Bipolar disorder, unspecifie d F31.9 [facility] [place] [address] [facility] [id number] [address] [place] [phone] Jun, [facility] [place] [address] [facility] [id number] [address] [place] [address] Jun, Bipolar disorder, unspecifie d F31.9 ; Attention deficit hyperactivity disorder (ADHD), combined type F90.2 ; Posttraumatic stress disorder F43.10 and Other prison (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 Z79.899 [facility] [address] [place] [id number] [address] [place] [address] [id number] Jun, Dental examination Z01.20 [facility] [place] [address] [address] May, [facility] [place] [address] [place] [id number] [place] [address] Apr, Bipolar disorder, unspecifie d F31.9 [facility] [place] [address] [address] March, Bipolar disorder, unspecifie d F31.9 ; Attention deficit hyperactivity disorder (ADHD), combined type F90.2 and Posttraumatic stress disorder F43.10 [facility] [place] [address] [address] Feb, [facility] [address] [address] Feb, Insect bite (nonvenomous), l eft knee, initial encounter S80.262A and Bitten or stung by nonvenomous insect and other nonvenomous arthropods, initial encounter W57.XXXA [facility] [place] [address] [address] Feb, Bipolar disorder, unspecifie d F31.9 [facility] [address] [place] [id number] [address] [place] [id number] Feb, Dental examination Z01.20 [facility] [place] [address] [address] Feb, Bipolar disorder, unspecifie d F31.9 ; Attention deficit hyperactivity disorder (ADHD), combined type F90.2 and Posttraumatic stress disorder F43.10 [facility] [id number] [place] [id number] Feb, Dental examination Z01.20 [facility] [place] [address] [address] Jan, Bipolar disorder, unspecifie d F31.9 [facility] [place] [address] [facility] [id number] [address] [place] [phone] Jan, Attention deficit hyperactiv ity disorder (ADHD), combined type F90.2 [facility] [place] [address] [facility] [id number] [address] [place] [phone] Dec, Posttraumatic stress disorde r F43.10 [facility] [place] [address] [facility] [id number] [address] [place] [address] Dec, Posttraumatic stress disorde r F43.10 [facility] [address] [place] [id number] Nov, Dental examination Z01.20 [facility] [address] [id number] Nov, Dental examination Z01.20 [facility] [address] [id number] Nov, Encounter for dental exam an d cleaning w/o abnormal findings Z01.20 [facility] [place] [address] [facility] [id number] [address] [place] [address] Sep, Bipolar disorder, unspecifie d F31.9 ; Posttraumatic stress disorder F43.10 and Attention deficit hyperactivity disorder (ADHD), combined type F90.2 [facility] [place] [address] [place] [id number] [address] [place] [phone] Aug, Posttraumatic stress disorde r F43.10 [facility] [place] [address] [facility] [id number] [address] [place] [phone] 15 Jul, 2017 Other prison (current) dr nubia briceno Z79.899 [facility] [place] [address] [facility] [id number] [address] [place] [phone] 11 Jul, 2017 Bipolar disorder, unspecifie d F31.9 ; Attention deficit hyperactivity disorder (ADHD), combined type F90.2 and Posttraumatic stress disorder F43.10 [facility] [place] [address] [id number] [address] [place] [phone] Jun, Bipolar disorder, unspecifie d F31.9 ; Posttraumatic stress disorder F43.10 ; Attention deficit hyperactivity disorder (ADHD), combined type F90.2 and 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.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 [facility] [place] [address] [id number] [address] [place] [phone] March, Bipolar disorder, unspecifie d F31.9 ; Posttraumatic stress disorder F43.10 and Attention deficit hyperactivity disorder (ADHD), combined type F90.2 [facility] [place] [address] [id number] [address] [place] [phone] Dec, Bipolar disorder, unspecifie d F31.9 ; Posttraumatic stress disorder F43.10 and Attention deficit hyperactivity disorder (ADHD), combined type F90.2 [facility] [place] [address] [facility] [id number] [address] [place] [phone] Dec, [facility] [place] [address] [facility] [id number] [address] [place] [phone] Sep, [facility] [place] [address] [facility] [id number] [address] [place] [phone] Aug, Bipolar disorder, unspecifie d F31.9 ; Posttraumatic stress disorder F43.10 and Attention deficit hyperactivity disorder (ADHD), combined type F90.2 [facility] [place] [address] [facility] [id number] [address] [place] [phone] Jun, [facility] [place] [address] [facility] [id number] [address] [place] [phone] March, [facility] [place] [address] [facility] [id number] [address] [place] [phone] Feb, Bipolar disorder, unspecifie d F31.9 ; Attention deficit hyperactivity disorder (ADHD), combined type F90.2 and Posttraumatic stress disorder F43.10 [facility] [place] [address] [facility] [id number] [address] [place] [phone] Feb, [facility] [place] [address] [facility] [id number] [address] [place] [phone] Feb, [facility] [place] [address] [facility] [id number] [address] [place] [phone] Feb, [facility] [place] [address] [facility] [id number] [address] [place] [phone] Jan, [facility] [address] [id number] [address] [place] [address] [id number] Dec, Dental examination Z01.20 [facility] [place] [address] [facility] [id number] [address] [place] [phone] Sep, [facility] [place] [address] [facility] [id number] [address] [place] [phone] Sep, Attention deficit hyperactiv ity disorder (ADHD), combined type F90.2 ; Posttraumatic stress disorder F43.10 and Bipolar disorder, unspecified F31.9 [facility] [place] [address] [facility] [id number] [address] [place] [phone] Aug, [facility] [place] [address] [facility] [id number] [address] [place] [phone] Aug, [facility] [place] [address] [facility] [id number] [address] [place] [phone] Jul, [facility] [place] [address] [facility] [id number] [address] [place] [phone] May, Bipolar disorder, unspecifie d 296.80 ; 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.00 and Posttraumatic stress disorder 309.81 [facility] [place] [address] [facility] [id number] [address] [place] [phone] May, [facility] [place] [address] [facility] [id number] [address] [place] [phone] May, [facility] [place] [address] [facility] [id number] [address] [place] [phone] May, [facility] [place] [address] [facility] [id number] [address] [place] [phone] Apr, [facility] [address] [id number] [address] [place] [address], [place] [address] Apr, [facility] [address] [id number] [address] [place] [address], [place] [address] Apr, [facility] [address] [id number] [address] [place] [address], [place] [address] March, [facility] [address] [id number] [address] [place] [address], [place] [address] March, [facility] [address] [id number] [address] [place] [address], [place] [address] March, [facility] [address] [id number] [address] [place] [address], [place] [address] Feb, [facility] [address] [id number] [address] [place] [address], [place] [address] Feb, [facility] [address] [id number] [address] [place] [address], [place] [address] Jan, [facility] [address] [id number] [address] [place] [address], [place] [address] Jan, [facility] [address] [id number] [address] [place] [address], [place] [address] Jan, [facility] [address] [id number] [address] [place] [address], [place] [address] Jan, [facility] [address] [id number] [address] [place] [address], [place] [address] Jan, [facility] [address] [id number] [address] [place] [address], [place] [address] Jan, [facility] [address] [id number] [address] [place] [address], [place] [address] Jan, [facility] [address] [id number] [address] [place] [address], [place] [address] Jan, [facility] [address] [id number] [address] [place] [address], [place] [address] Jan, 2014 [facility] [address] [id number] [address] [place] [address], [place] [address] Jan, 2014 [facility] [address] [id number] [address] [place] [address], [place] [address] Dec, 2014 [facility] [address] [id number] [address] [place] [address], [place] [address] Dec, 2014 [facility] [address] [id number] [address] [place] [address], [place] [address] Dec, 2014 [facility] [address] [id number] [address] [place] [address], [place] [address] Dec, 2014 [facility] [address] [id number] [address] [place] [address], [place] [address] Oct, [facility] [address] [id number] [address] [place] [address], [place] [address] Oct, [facility] [address] [id number] [address] [place] [address], [place] [address] Oct, [facility] [address] [id number] [address] [place] [address], [place] [address] Oct, [facility] [address] [id number] [address] [place] [address], [place] [address] Oct, [facility] [address] [id number] [address] [place] [address], [place] [address] Oct, [facility] [address] [id number] [address] [place] [address], [place] [address] Oct, [facility] [address] [id number] [address] [place] [address], [place] [address] Sep, [facility] [address] [id number] [address] [place] [address], [place] [address] Sep, [facility] [address] [id number] [address] [place] [address], [place] [address] Sep, [facility] [address] [id number] [address] [place] [address], [place] [address] Sep, [facility] [address] [id number] [address] [place] [address], [place] [address] Sep, [facility] [address] [id number] [address] [place] [address], [place] [address] Sep, [facility] [address] [id number] [address] [place] [address], [place] [address] Sep, [facility] [address] [id number] [address] [place] [address], [place] [address] Sep, [facility] [address] [id number] [address] [place] [address], [place] [address] Aug, [facility] [address] [id number] [address] [place] [address], [place] [address] Aug, [facility] [address] [id number] [address] [place] [address], [place] [address] Aug, [facility] [address] [id number] [address] [place] [address], [place] [address] Aug, [facility] [address] [id number] [address] [place] [address], [place] [address] Jul, [facility] [address] [id number] [address] [place] [address], [place] [address] Jul, [facility] [address] [id number] [address] [place] [address], [place] [address] Jul, [facility] [address] [id number] [address] [place] [address], [place] [address] Jul, [facility] [address] [id number] [address] [place] [address], [place] [address] Jun, [facility] [address] [id number] [address] [place] [address], [place] [address] Jun, [facility] [address] [id number] [facility] [place] [address] Jun, [facility] [address] [id number] [address] [place] [address], [place] [address] Jun, [facility] [address] [id number] [address] [place] [address], [place] [address] May, [facility] [address] [id number] [address] [place] [address], [place] [address] May, [facility] [address] [id number] [address] [place] [address], [place] [address] May, [facility] [address] [id number] [address] [place] [address], [place] [address] May, [facility] [address] [id number] [address] [place] [address], [place] [address] Apr, [facility] [address] [id number] [address] [place] [address], [place] [address] Apr, [facility] [address] [id number] [address] [place] [address], [place] [address] Apr, [facility] [address] [id number] [address] [place] [address], [place] [address] Apr, [facility] [address] [id number] [address] [place] [address], [place] [address] Apr, [facility] [address] [id number] [address] [place] [address], [place] [id number] Apr, [facility] [address] [id number] [address] [place] [address], [place] [id number] Apr, [facility] [address] [id number] [address] [place] [address], [place] [id number] Apr, [facility] [address] [id number] [address] [place] [address], [place] [id number] Apr, [facility] [address] [id number] [address] [place] [address], [place] [id number] Apr, [facility] [address] [id number] [address] [place] [address], [place] [id number] Apr, [facility] [address] [id number] [address] [place] [address], [place] [id number] Apr, [facility] [address] [id number] [address] [place] [address], [place] [id number] Apr, [facility] [address] [id number] [address] [place] [address], [place] [id number] March, [facility] [address] [id number] [address] [place] [address], [place] [id number] March, [facility] [address] [id number] [address] [place] [address], [place] [id number] March, [facility] [address] [id number] [address] [place] [address], [place] [id number] March, [facility] [address] [id number] [address] [place] [address], [place] [id number] Jan, [facility] [address] [id number] [address] [place] [address], [place] [id number] Jan, [facility] [address] [id number] [address] [place] [address], [place] [id number] Jan, [facility] [address] [id number] [address] [place] [address], [place] [id number] Jan, [facility] [address] [id number] [address] [place] [address], [place] [id number] Jan, [facility] [address] [id number] [address] [place] [address], [place] [id number] Jan, [facility] [address] [id number] [address] [place] [address], [place] [id number] Dec, [facility] [address] [id number] [address] [place] [address], [place] [id number] Dec, [facility] [address] [id number] [address] [place] [address], [place] [id number] Dec, [facility] [address] [id number] [address] [place] [address], [place] [id number] Dec, [facility] [address] [id number] [address] [place] [address], [place] [id number] Nov, [facility] [address] [id number] [address] [place] [address], [place] [id number] Nov, [facility] [address] [id number] [address] [place] [address], [place] [id number] Nov, [facility] [address] [id number] [address] [place] [address], [place] [id number] Nov, [facility] [address] [id number] [address] [place] [address], [place] [id number] Oct, [facility] [address] [id number] [address] [place] [address], [place] [id number] Oct, [facility] [address] [id number] [address] [place] [address], [place] [id number] Oct, [facility] [address] [id number] 50 [place] [address], [place] [id number] Oct, [facility] [address] [id number] [address] [place] [address], [place] [id number] Oct, [facility] [address] [id number] [address] [place] [address], [place] [id number] Oct, [facility] [address] [id number] [address] [place] [address], [place] [id number] Oct, [facility] [address] [id number] [address] [place] [address], [place] [id number] Oct, [facility] [address] [id number] [address] [place] [address], [place] [id number] Sep, [facility] [address] [id number] [address] [place] [address], [place] [id number] Sep, [facility] [address] [id number] [address] [place] [address], [place] [id number] 27 Jul, 2012 [facility] [address] [id number] [address] [place] [address], [place] [id number] 12 Jul, 2013 [facility] [address] [id number] [address] [place] [address], [place] [id number] 09 Jul, 2013 [facility] [address] [id number] [address] [place] [address], [place] [id number] 07 Jul, 2013 [facility] [address] [id number] [address] [place] [address], [place] [id number] Jun, [facility] [address] [id number] [address] [place] [address], [place] [id number] Jun, [facility] [address] [id number] [address] [place] [address], [place] [id number] May, [facility] [address] [id number] [address] [place] [address], [place] [id number] Apr, [facility] [address] [id number] [address] [place] [address], [place] [id number] Apr, [facility] [address] [id number] [address] [place] [address], [place] [id number] Apr, [facility] [address] [id number] [address] [place] [address], [place] [id number] March, [facility] [address] [id number] [address] [place] [address], [place] [id number] March, [facility] [address] [id number] [address] [place] [address], [place] [id number] Feb, [facility] [address] [id number] [address] [place] [address], [place] [id number] Jan, [facility] [address] [id number] [address] [place] [address], [place] [id number] Jan, [facility] [address] [id number] [address] [place] [address] [address] Dec, [facility] [address] [id number] [address] [place] [address], [place] [id number] Dec, [facility] [address] [id number] [address] [place] [address], [place] [id number] Nov, [facility] [address] [id number] [address] [place] [address], [place] [id number] Nov, [facility] [address] [id number] [address] [place] [address], [place] [id number] Nov, [facility] [address] [id number] [address] [place] [address], [place] [id number] Oct, [facility] [address] [id number] [address] [place] [address], [place] [id number] Oct, [facility] [address] [id number] [address] [place] [address], [place] [id number] Oct, [facility] [address] [id number] [address] [place] [address], [place] [id number] Oct, [facility] [address] [id number] [address] [place] [address], [place] [id number] Sep, [facility] [address] [id number] [address] [place] [address], [place] [id number] Sep, [facility] [address] [id number] [address] [place] [address], [place] [id number] Sep, [facility] [address] [id number] [address] [place] [address], [place] [id number] Sep, [facility] [address] [id number] [address] [place] [address], [place] [id number] Sep, [facility] [address] [id number] [address] [place] [address], [place] [id number] Sep, [facility] [address] [id number] [address] [place] [address], [place] [id number] Aug, [facility] [address] [id number] [address] [place] [address], [place] [id number] 26 Jul, 2012 [facility] [address] [id number] [address] [place] [address], [place] [id number] 19 Jul, 2012 [facility] [address] [id number] [address] [place] [address], [place] [id number] 18 Jul, 2012 [facility] [address] [id number] [address] [place] [address], [place] [id number] 14 Jul, 2012 [facility] [address] [id number] [address] [place] [address], [place] [id number] Jun, [facility] [address] [id number] [address] [place] [address], [place] [address] Jun, [facility] [address] [id number] [address] [place] [address], [place] [id number] Jun, [facility] [address] [id number] [address] [place] [address], [place] [id number] Jun, [facility] [address] [id number] [address] [place] [address], [place] [address] May, [facility] [address] [id number] [address] [place] [address], [place] [id number] Apr, [facility] [address] [id number] [address] [place] [address], [place] [id number] March, [facility] [address] [id number] [address] [place] [address], [place] [id number] March, [facility] [address] [id number] [address] [place] [address], [place] [id number] March, [facility] [address] [id number] [address] [place] [address], [place] [id number] Feb, [facility] [address] [id number] [address] [place] [address], [place] [id number] Feb, [facility] [address] [id number] [address] [place] [address], [place] [id number] Jan, [facility] [address] [id number] [address] [place] [address], [place] [id number] 05 Jan, 2012 [facility] [address] [id number] [address] [place] [address], [place] [id number] Jan, [facility] [address] [id number] [address] [place] [address], [place] [id number] Dec, [facility] [address] [id number] [address] [place] [address], [place] [id number] Dec, [facility] [address] [id number] [address] [place] [address], [place] [id number] Nov, [facility] [address] [id number] [address] [place] [address], [place] [id number] Nov, [facility] [address] [id number] [address] [place] [address], [place] [id number] Nov, [facility] [address] [id number] [address] [place] [address], [place] [id number] Nov, [facility] [address] [id number] [address] [place] [address], [place] [id number] Nov, [facility] [address] [id number] [address] [place] [address], [place] [id number] Oct, [facility] [address] [id number] [address] [place] [address], [place] [id number] Oct, [facility] [address] [id number] [address] [place] [id number] 05 Oct, 2011 [facility] [address] [id number] [address] [place] [address], [place] [id number] Oct, [facility] [address] [id number] [address] [place] [address], [place] [id number] Sep, [facility] [address] [id number] [address] [place] [address], [place] [id number] 17 Sep, 2011 [facility] [address] [id number] [address] [place] [id number] Sep, [facility] [place] [address] [facility] [id number] [address] [place] [id number] Aug, [facility] [place] [address] [facility] [id number] [address] [place] [id number] Oct, [facility] [place] [address] [facility] [id number] [address] [place] [id number] Oct, [facility] [place] [address] [facility] [id number] [address] [place] [id number] Oct, [facility] [place] [address] [facility] [id number] [address] [place] [id number] Oct, IMMUNIZATIONS No Known Immunizations SOCIAL HISTORY [...]
--- OUTSIDE RECORDS SUMMARY | 2020-04-25 14:55 | XMS REPORT ---
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 Name Role Phone JAMES PERDUE Unavailable PROBLEMS Type Condition ICD9-CM Code [id number] Code Onset Dates Condition S tatus SNOMED Code Problem Encounter for long-term (current) use of other medications V58.69 Active 454247469 Problem Posttraumatic stress disorder F43.10 Active 51597328 Problem Bipolar disorder, unspecified F31.9 Active 60200324 Problem 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 Active 25925517 Problem Posttraumatic stress disorder 309.81 Active 16550268 Problem Bipolar disorder, unspecified 296.80 Active 20855613 Problem Attention deficit hyperactivity disorder (ADHD), combi dylon type F90.2 Active [id number] ALLERGIES No Information ENCOUNTERS Encounter Location Date Diagnosis [facility] [address] [facility] [id number] [address] [place] [address] Jun, OUTREACH [facility] [address] [id number] [place] [address] May, Caries K02.9 OUTREACH [facility] [address] [id number] [place] [address] May, Caries K02.9 OUTREACH [facility] [address] [facility] [id number] [place] [address] May, 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 requiring routine preventive dental care K08.9 [facility] [address] [facility] [id number] [address] [place] [address] Apr, Bipolar disorder, unspecifie d F31.9 [facility] [address] [facility] [id number] [address] [place] [address] Apr, [facility] [address] [place] [id number] [address] [place] [phone] 13 Apr, 2019 Bipolar disorder, unspecifie d F31.9 [facility] [address] [facility] [id number] [address] [place] [address] Apr, Bipolar disorder, unspecifie d F31.9 [facility] [address] [facility] [id number] [address] [place] [address] Apr, [facility] [address] [facility] [id number] [address] [place] [address] March, Bipolar disorder, unspecifie d F31.9 ; Attention deficit hyperactivity disorder (ADHD), combined type F90.2 ; Posttraumatic stress disorder F43.10 and Other long term care administrator (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 Z79.[id number] [place] [address] March, Dental examination Z01.20 and Caries K02 .9 [facility] [address] [facility] [id number] [address] [place] [address] Feb, Bipolar disorder, unspecifie d F31.9 [facility] [address] [facility] [id number] [address] [place] [address] Jan, Oral health maintenance stat requiring routine preventive dental care K08.9 ; Dental examination Z01.20 and Caries K02.9 [facility] [address] [facility] [id number] [address] [place] [address] Jan, Bipolar disorder, unspecifie d F31.9 [facility] [address] [facility] [id number] [address] [place] [address] Dec, Bipolar disorder, unspecifie d F31.9 ; Attention deficit hyperactivity disorder (ADHD), combined type F90.2 and Posttraumatic stress disorder F43.10 [facility] [address] [facility] [id number] [address] [place] [address] Oct, Sore throat J02.9 [facility] [address] [facility] [id number] [address] [place] [address] Oct, [facility] [address] [facility] [id number] [address] [place] [address] Oct, Bipolar disorder, unspecifie d F31.9 [facility] [address] [facility] [id number] [address] [place] [id number] Sep, 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 requiring routine preventive dental care K08.9 [facility] [address] [facility] [id number] [address] [place] [phone] Sep, Bipolar disorder, unspecifie d F31.9 ; Attention deficit hyperactivity disorder (ADHD), combined type F90.2 and Posttraumatic stress disorder F43.10 [facility] [address] [facility] [id number] [address] [place] [address] Aug, Lymphadenopathy of left cerv ical region R59.0 [facility] [address] [facility] [id number] [address] [place] [address] Aug, Encounter for immunization Z 23 [facility] [address] [facility] [id number] [address] [place] [address] Aug, Other mcfp (current) dr delacruz therapy Z79.899 [facility] [address] [facility] [id number] [address] [place] [address] Jul, Bipolar disorder, unspecifie d F31.9 [facility] [address] [facility] [id number] [address] [place] [address] Jun, Bipolar disorder, unspecifie d F31.9 [facility] [address] [facility] [id number] [address] [place] [address] Jun, [facility] [address] [facility] [id number] [address] [place] [address] Jun, Bipolar disorder, unspecifie d F31.9 ; Attention deficit hyperactivity disorder (ADHD), combined type F90.2 ; Posttraumatic stress disorder F43.10 and Other mcfp (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 Z79.899 [facility] [address] [place] [id number] [address] [place] [id number] Jun, Dental examination Z01.20 [facility] [address] [address] May, [facility] [address] [place] [id number] [place] [address] Apr, Bipolar disorder, unspecifie d F31.9 [facility] [address] [address] March, Bipolar disorder, unspecifie d F31.9 ; Attention deficit hyperactivity disorder (ADHD), combined type F90.2 and Posttraumatic stress disorder F43.10 [facility] [address] [address] Feb, [facility] [address] [address] Feb, Insect bite (nonvenomous), l eft knee, initial encounter S80.262A and Bitten or stung by nonvenomous insect and other nonvenomous arthropods, initial encounter W57.XXXA [facility] [address] [address] Feb, Bipolar disorder, unspecifie d F31.9 [facility] [address] [id number] [address] [place] [id number] Feb, Dental examination Z01.20 [facility] [address] [address] Feb, Bipolar disorder, unspecifie d F31.9 ; Attention deficit hyperactivity disorder (ADHD), combined type F90.2 and Posttraumatic stress disorder F43.10 [facility] [id number] [place] [id number] Feb, Dental examination Z01.20 [facility] [address] [address] Jan, Bipolar disorder, unspecifie d F31.9 [facility] [address] [facility] [id number] [address] [place] [address] Jan, Attention deficit hyperactiv ity disorder (ADHD), combined type F90.2 [facility] [address] [id number] [address] [place] [address] Dec, Posttraumatic stress disorde r F43.10 [facility] [address] [id number] [address] [place] [address] Dec, Posttraumatic stress disorde r F43.10 [facility] [id number] [place] [id number] Nov, Dental examination Z01.20 [facility] [address] [place] [id number] Nov, Encounter for dental exam an d cleaning w/o abnormal findings Z01.20 [facility] [address] [id number] [place] [address] [id number] Nov, Dental examination Z01.20 [facility] [address] [facility] [id number] [address] [place] [address] Sep, Bipolar disorder, unspecifie d F31.9 ; Posttraumatic stress disorder F43.10 and Attention deficit hyperactivity disorder (ADHD), combined type F90.2 [facility] [address] [facility] [id number] [address] [place] [address] Aug, Posttraumatic stress disorde r F43.10 [facility] [address] [facility] [id number] [address] [place] [phone] 15 Jul, 2017 Other mcfp (current) dr nubia briceno Z79.899 [facility] [address] [facility] [id number] [address] [place] [phone] 11 Jul, 2017 Bipolar disorder, unspecifie d F31.9 ; Attention deficit hyperactivity disorder (ADHD), combined type F90.2 and Posttraumatic stress disorder F43.10 [facility] [address] [id number] [address] [place] [phone] Jun, Bipolar disorder, unspecifie d F31.9 ; Posttraumatic stress disorder F43.10 ; Attention deficit hyperactivity disorder (ADHD), combined type F90.2 and Other long term care administrator (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 Z79.899 [facility] [address] [id number] [address] [place] [address] March, Bipolar disorder, unspecifie d F31.9 ; Posttraumatic stress disorder F43.10 and Attention deficit hyperactivity disorder (ADHD), combined type F90.2 [facility] [address] [id number] [address] [place] [phone] Dec, Bipolar disorder, unspecifie d F31.9 ; Posttraumatic stress disorder F43.10 and Attention deficit hyperactivity disorder (ADHD), combined type F90.2 [facility] [address] [facility] [id number] [address] [place] [phone] Dec, [facility] [address] [facility] [id number] [address] [place] [address] Sep, [facility] [address] [facility] [id number] [address] [place] [id number] Aug, Bipolar disorder, unspecifie d F31.9 ; Posttraumatic stress disorder F43.10 and Attention deficit hyperactivity disorder (ADHD), combined type F90.2 [facility] [address] [facility] [id number] [address] [place] [phone] Jun, [facility] [address] [facility] [id number] [address] [place] [phone] March, [facility] [address] [facility] [id number] [address] [place] [address] Feb, Bipolar disorder, unspecifie d F31.9 ; Attention deficit hyperactivity disorder (ADHD), combined type F90.2 and Posttraumatic stress disorder F43.10 [facility] [address] [facility] [id number] [address] [place] [phone] Feb, [facility] [address] [facility] [id number] [address] [place] [phone] Feb, [facility] [address] [facility] [id number] [address] [place] [address] Feb, [facility] [address] [facility] [id number] [address] [place] [phone] Jan, [facility] [address] [id number] [address] [place] [address] [id number] Dec, Dental examination Z01.20 [facility] [address] [facility] [id number] [address] [place] [phone] Sep, [facility] [address] [facility] [id number] [address] [place] [phone] Sep, Attention deficit hyperactiv ity disorder (ADHD), combined type F90.2 ; Posttraumatic stress disorder F43.10 and Bipolar disorder, unspecified F31.9 [facility] [address] [facility] [id number] [address] [place] [address] Aug, [facility] [address] [facility] [id number] [address] [place] [phone] Aug, [facility] [address] [facility] [id number] [address] [place] [phone] Jul, [facility] [address] [facility] [id number] [address] [place] [id number] May, Bipolar disorder, unspecifie d 296.80 ; 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.00 and Posttraumatic stress disorder 309.81 [facility] [address] [facility] [id number] [address] [place] [phone] May, [facility] [address] [facility] [id number] [address] [place] [phone] May, [facility] [address] [facility] [id number] [address] [place] [phone] May, [facility] [address] [facility] [id number] [address] [place] [phone] Apr, [facility] [address] [id number] [address] [place] [address], [place] [address] Apr, [facility] [address] [id number] [address] [place] [address], [place] [address] Apr, [facility] [address] [id number] [address] [place] [address], [place] [address] March, [facility] [address] [id number] [address] [place] [address], [place] [address] March, [facility] [address] [id number] [address] [place] [address], [place] [address] March, [facility] [address] [id number] [address] [place] [address], [place] [address] Feb, [facility] [address] [id number] [address] [place] [address], [place] [address] Feb, [facility] [address] [id number] [address] [place] [address], [place] [address] Jan, [facility] [address] [id number] [address] [place] [address], [place] [address] Jan, [facility] [address] [id number] [address] [place] [address], [place] [address] Jan, [facility] [address] [id number] [address] [place] [address], [place] [address] Jan, [facility] [address] [id number] [address] [place] [address], [place] [address] Jan, [facility] [address] [id number] [address] [place] [address], [place] [address] Jan, [facility] [address] [id number] [address] [place] [address], [place] [address] Jan, [facility] [address] [id number] [address] [place] [address], [place] [address] Jan, [facility] [address] [id number] [address] [place] [address], [place] [address] Jan, 2014 [facility] [address] [id number] [address] [place] [address], [place] [address] Jan, 2014 [facility] [address] [id number] [address] [place] [address], [place] [address] Dec, 2014 [facility] [address] [id number] [address] [place] [address], [place] [address] Dec, 2014 [facility] [address] [id number] [address] [place] [address], [place] [address] Dec, 2014 [facility] [address] [id number] [address] [place] [address], [place] [address] Dec, 2014 [facility] [address] [id number] [address] [place] [address], [place] [address] Oct, [facility] [address] [id number] [address] [place] [address], [place] [address] Oct, [facility] [address] [id number] [address] [place] [address], [place] [address] Oct, [facility] [address] [id number] [address] [place] [address], [place] [address] Oct, [facility] [address] [id number] [address] [place] [address], [place] [address] Oct, [facility] [address] [id number] [address] [place] [address], [place] [address] Oct, [facility] [address] [id number] [address] [place] [address], [place] [address] Oct, [facility] [address] [id number] [address] [place] [address], [place] [address] Sep, [facility] [address] [id number] [address] [place] [address], [place] [address] Sep, [facility] [address] [id number] [address] [place] [address], [place] [address] Sep, [facility] [address] [id number] [address] [place] [address], [place] [address] Sep, [facility] [address] [id number] [address] [place] [address], [place] [address] Sep, [facility] [address] [id number] [address] [place] [address], [place] [address] Sep, [facility] [address] [id number] [address] [place] [address], [place] [address] Sep, [facility] [address] [id number] [address] [place] [address], [place] [address] Sep, [facility] [address] [id number] [address] [place] [address], [place] [address] Aug, [facility] [address] [id number] [address] [place] [address], [place] [address] Aug, [facility] [address] [id number] [address] [place] [address], [place] [address] Aug, [facility] [address] [id number] [address] [place] [address], [place] [address] Aug, [facility] [address] [id number] [address] [place] [address], [place] [address] Jul, [facility] [address] [id number] [address] [place] [address], [place] [address] Jul, [facility] [address] [id number] [address] [place] [address], [place] [address] Jul, [facility] [address] [id number] [address] [place] [address], [place] [address] Jul, [facility] [address] [id number] [address] [place] [address], [place] [address] Jun, [facility] [address] [id number] [address] [place] [address], [place] [address] Jun, [facility] [address] [id number] [facility] [place] [address] Jun, [facility] [address] [id number] [address] [place] [address], [place] [address] Jun, [facility] [address] [id number] [address] [place] [address], [place] [address] May, [facility] [address] [id number] [address] [place] [address], [place] [address] May, [facility] [address] [id number] [address] [place] [address], [place] [address] May, [facility] [address] [id number] [address] [place] [address], [place] [address] May, [facility] [address] [id number] [address] [place] [address], [place] [address] Apr, [facility] [address] [id number] [address] [place] [address], [place] [address] Apr, [facility] [address] [id number] [address] [place] [address], [place] [address] Apr, [facility] [address] [id number] [address] [place] [address], [place] [address] Apr, [facility] [address] [id number] [address] [place] [address], [place] [address] Apr, [facility] [address] [id number] [address] [place] [address], [place] [address] Apr, [facility] [address] [id number] [address] [place] [address], [place] [address] Apr, [facility] [address] [id number] [address] [place] [address], [place] [address] Apr, [facility] [address] [id number] [address] [place] [address], [place] [address] Apr, [facility] [address] [id number] [address] [place] [address], [place] [address] Apr, [facility] [address] [id number] [address] [place] [address], [place] [address] Apr, [facility] [address] [id number] [address] [place] [address], [place] [address] Apr, [facility] [address] [id number] [address] [place] [address], [place] [address] Apr, [facility] [address] [id number] [address] [place] [address], [place] [address] March, [facility] [address] [id number] [address] [place] [address], [place] [address] March, [facility] [address] [id number] [address] [place] [address], [place] [address] March, [facility] [address] [id number] [address] [place] [address], [place] [address] March, [facility] [address] [id number] [address] [place] [address], [place] [address] Jan, [facility] [address] [id number] [address] [place] [address], [place] [address] Jan, [facility] [address] [id number] [address] [place] [address], [place] [address] Jan, [facility] [address] [id number] [address] [place] [address], [place] [address] Jan, [facility] [address] [id number] [address] [place] [address], [place] [address] Jan, [facility] [address] [id number] [address] [place] [address], [place] [address] Jan, [facility] [address] [id number] [address] [place] [address], [place] [address] Dec, [facility] [address] [id number] [address] [place] [address], [place] [address] Dec, [facility] [address] [id number] [address] [place] [address], [place] [address] Dec, [facility] [address] [id number] [address] [place] [address], [place] [address] Dec, [facility] [address] [id number] [address] [place] [address], [place] [address] Nov, [facility] [address] [id number] [address] [place] [address], [place] [address] Nov, [facility] [address] [id number] [address] [place] [address], [place] [address] Nov, [facility] [address] [id number] [address] [place] [address], [place] [address] Nov, [facility] [address] [id number] [address] [place] [address], [place] [address] Oct, [facility] [address] [id number] [address] [place] [address], [place] [address] Oct, [facility] [address] [id number] [address] [place] [address], [place] [address] Oct, [facility] [address] [id number] [address] [place] [address], [place] [address] Oct, [facility] [address] [id number] [address] [place] [address], [place] [address] Oct, [facility] [address] [id number] [address] [place] [address], [place] [address] Oct, [facility] [address] [id number] [address] [place] [address], [place] [address] Oct, [facility] [address] [id number] [address] [place] [address], [place] [address] Oct, [facility] [address] [id number] [address] [place] [address], [place] [address] Sep, [facility] [address] [id number] [address] [place] [address], [place] [address] Sep, [facility] [address] [id number] [address] [place] [address], [place] [address] 27 Jul, 2012 [facility] [address] [id number] [address] [place] [address], [place] [address] 12 Jul, 2013 [facility] [address] [id number] [address] [place] [address], [place] [address] 09 Jul, 2013 [facility] [address] [id number] [address] [place] [address], [place] [address] 07 Jul, 2013 [facility] [address] [id number] [address] [place] [address], [place] [address] Jun, [facility] [address] [id number] [address] [place] [address], [place] [address] Jun, [facility] [address] [id number] [address] [place] [address], [place] [address] May, [facility] [address] [id number] [address] [place] [address], [place] [address] Apr, [facility] [address] [id number] [address] [place] [address], [place] [address] Apr, [facility] [address] [id number] [address] [place] [address], [place] [address] Apr, [facility] [address] [id number] [address] [place] [address], [place] [address] March, [facility] [address] [id number] [address] [place] [address], [place] [address] March, [facility] [address] [id number] [address] [place] [address], [place] [address] Feb, [facility] [address] [id number] [address] [place] [address], [place] [address] Jan, [facility] [address] [id number] [address] [place] [address], [place] [address] Jan, [facility] [address] [id number] [address] [place] [address] [address] Dec, [facility] [address] [id number] [address] [place] [address], [place] [address] Dec, [facility] [address] [id number] [address] [place] [address], [place] [address] Nov, [facility] [address] [id number] [address] [place] [address], [place] [address] Nov, [facility] [address] [id number] [address] [place] [address], [place] [address] Nov, [facility] [address] [id number] [address] [place] [address], [place] [address] Oct, [facility] [address] [id number] [address] [place] [address], [place] [address] Oct, [facility] [address] [id number] [address] [place] [address], [place] [address] Oct, [facility] [address] [id number] [address] [place] [address], [place] [address] Oct, [facility] [address] [id number] [address] [place] [address], [place] [address] Sep, [facility] [address] [id number] [address] [place] [address], [place] [address] Sep, [facility] [address] [id number] [address] [place] [address], [place] [address] Sep, [facility] [address] [id number] [address] [place] [address], [place] [address] Sep, [facility] [address] [id number] [address] [place] [address], [place] [address] Sep, [facility] [address] [id number] [address] [place] [address], [place] [address] Sep, [facility] [address] [id number] [address] [place] [address], [place] [address] Aug, [facility] [address] [id number] [address] [place] [address], [place] [address] 26 Jul, 2012 [facility] [address] [id number] [address] [place] [address], [place] [address] 19 Jul, 2012 [facility] [address] [id number] [address] [place] [address], [place] [address] 18 Jul, 2012 [facility] [address] [id number] [address] [place] [address], [place] [address] 14 Jul, 2012 [facility] [address] [id number] [address] [place] [address], [place] [address] Jun, [facility] [address] [id number] [address] [place] [address], [place] [address] Jun, [facility] [address] [id number] [address] [place] [address], [place] [address] Jun, [facility] [address] [id number] [address] [place] [address], [place] [address] Jun, [facility] [address] [id number] [address] [place] [address], [place] [address] May, [facility] [address] [id number] [address] [place] [address], [place] [address] Apr, [facility] [address] [id number] [address] [place] [address], [place] [address] March, [facility] [address] [id number] [address] [place] [address], [place] [address] March, [facility] [address] [id number] [address] [place] [address], [place] [address] March, [facility] [address] [id number] [address] [place] [address], [place] [address] Feb, [facility] [address] [id number] [address] [place] [address], [place] [address] Feb, [facility] [address] [id number] [address] [place] [address], [place] [address] Jan, [facility] [address] [id number] [address] [place] [address], [place] [address] 05 Jan, 2012 [facility] [address] [id number] [address] [place] [address], [place] [address] Jan, [facility] [address] [id number] [address] [place] [address], [place] [address] Dec, [facility] [address] [id number] [address] [place] [address], [place] [address] Dec, [facility] [address] [id number] [address] [place] [address], [place] [address] Nov, [facility] [address] [id number] [address] [place] [address], [place] [address] Nov, [facility] [address] [id number] [address] [place] [address], [place] [address] Nov, [facility] [address] [id number] [address] [place] [address], [place] [address] Nov, [facility] [address] [id number] [address] [place] [address], [place] [address] Nov, [facility] [address] [id number] [address] [place] [address], [place] [address] Oct, [facility] [address] [id number] [address] [place] [address], [place] [address] Oct, [facility] [address] [id number] [address] [place] [address] 05 Oct, 2011 [facility] [address] [id number] [address] [place] [address], [place] [address] Oct, [facility] [address] [id number] [address] [place] [address], [place] [address] Sep, [facility] [address] [id number] [address] [place] [address], [place] [address] 17 Sep, 2011 [facility] [address] [id number] [address] [place] [address] Sep, [facility] [address] [facility] [id number] [address] [place] [address] Aug, [facility] [address] [facility] [id number] [address] [place] [id number] Oct, [facility] [address] [facility] [id number] [address] [place] [address] Oct, [facility] [address] [facility] [id number] [address] [place] [address] Oct, [facility] [address] [facility] [id number] [address] [place] [address] Oct, IMMUNIZATIONS No Known Immunizations SOCIAL HISTORY [...]
--- OUTSIDE RECORDS SUMMARY | 2020-04-25 14:55 | XMS REPORT ---
Author Author Ronna Barnes Organization [facility] Address Unknown Care Team Providers Care Corrective Therapist Name Role Phone CHEYENNE Barnes Unavailable PROBLEMS Type Condition ICD9-CM Code UTG86-RN Code Onset Dates Condition S tatus SNOMED Code Problem Encounter for long-term (current) use of other medications V58.69 Active 255425951 Problem Posttraumatic stress disorder F43.10 Active 10486385 Problem Bipolar disorder, unspecified F31.9 Active 03736576 Problem 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 Active 07698107 Problem Posttraumatic stress disorder 309.81 Active 87292113 Problem Bipolar disorder, unspecified 296.80 Active 48727926 Problem Attention deficit hyperactivity disorder (ADHD), combi dylon type F90.2 Active 513287224 ALLERGIES No Information ENCOUNTERS Encounter Location Date Diagnosis [facility] [address] [facility] [id number] [address] [place] [phone] Jun, [facility] [address] [id number], [place] [address] May, Caries K02.9 [facility] [address] [id number], [place] [address] May, Caries K02.9 [facility]RE[facility] [address] [id number], [place] [address] May, 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 requiring routine preventive dental care K08.9 [facility] [address] [facility] [id number] [address] [place] [address] Apr, Bipolar disorder, unspecifie d F31.9 [facility] [address] [facility] [id number] [address] [place] [address] Apr, [facility] [address] [id number] [address] [place] [phone] 13 Apr, 2019 Bipolar disorder, unspecifie d F31.9 [facility] [address] [facility] [id number] [address] [place] [phone] Apr, Bipolar disorder, unspecifie d F31.9 [facility] [address] [facility] [id number] [address] [place] [address] Apr, [facility] [address] [facility] [id number] [address] [place] [address] March, Bipolar disorder, unspecifie d F31.9 ; Attention deficit hyperactivity disorder (ADHD), combined type F90.2 ; Posttraumatic stress disorder F43.10 and 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 Z79.899 [facility] [place] [address] [id number] [place] [address] March, Dental examination Z01.20 and Caries K02 .9 [facility] [address] [facility] [id number] [address] [place] [address] Feb, Bipolar disorder, unspecifie d F31.9 [facility] [address] [facility] [id number] [address] [place] [address] Jan, Oral health maintenance stat requiring routine preventive dental care K08.9 ; Dental examination Z01.20 and Caries K02.9 [facility] [address] [facility] [id number] [address] [place] [address] Jan, Bipolar disorder, unspecifie d F31.9 [facility] [address] [facility] [id number] [address] [place] [address] Dec, Bipolar disorder, unspecifie d F31.9 ; Attention deficit hyperactivity disorder (ADHD), combined type F90.2 and Posttraumatic stress disorder F43.10 [facility] [address] [facility] [id number] [address] [place] [address] Oct, Sore throat J02.9 [facility] [address] [facility] [id number] [address] [place] [address] Oct, [facility] [address] [facility] [id number] [address] [place] [address] Oct, Bipolar disorder, unspecifie d F31.9 [facility] [address] [facility] [id number] [address] [place] [id number] Sep, 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 requiring routine preventive dental care K08.9 [facility] [address] [facility] [id number] [address] [place] [address] Sep, Bipolar disorder, unspecifie d F31.9 ; Attention deficit hyperactivity disorder (ADHD), combined type F90.2 and Posttraumatic stress disorder F43.10 [facility] [address] [facility] [id number] [address] [place] [address] Aug, Lymphadenopathy of left cerv ical region R59.0 [facility] [address] [facility] [id number] [address] [place] [address] Aug, Encounter for immunization Z 23 [facility] [address] [facility] [id number] [address] [place] [address] Aug, 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 (current) dr delacruz therapy Z79.899 [facility] [address] [facility] [id number] [address] [place] [address] Jul, Bipolar disorder, unspecifie d F31.9 [facility] [address] [facility] [id number] [address] [place] [address] Jun, Bipolar disorder, unspecifie d F31.9 [facility] [address] [facility] [id number] [address] [place] [address] Jun, [facility] [address] [facility] [id number] [address] [place] [address] Jun, Bipolar disorder, unspecifie d F31.9 ; Attention deficit hyperactivity disorder (ADHD), combined type F90.2 ; Posttraumatic stress disorder F43.10 and 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 Z79.899 [facility] [id number] [place] [id number] Jun, Dental examination Z01.20 [facility] [address] [address] May, [facility] [address] [address] Apr, Bipolar disorder, unspecifie d F31.9 [facility] [address] [address] March, Bipolar disorder, unspecifie d F31.9 ; Attention deficit hyperactivity disorder (ADHD), combined type F90.2 and Posttraumatic stress disorder F43.10 [facility] [address] [address] Feb, [facility] [address] [address] Feb, Insect bite (nonvenomous), l eft knee, initial encounter S80.262A and Bitten or stung by nonvenomous insect and other nonvenomous arthropods, initial encounter W57.XXXA [facility] [address] [address] Feb, Bipolar disorder, unspecifie d F31.9 [facility] [address] [place] [id number] [place] [address] [id number] Feb, Dental examination Z01.20 [facility] [address] [address] Feb, Bipolar disorder, unspecifie d F31.9 ; Attention deficit hyperactivity disorder (ADHD), combined type F90.2 and Posttraumatic stress disorder F43.10 [facility] [id number] [place] [id number] Feb, Dental examination Z01.20 [facility] [address] [address] Jan, Bipolar disorder, unspecifie d F31.9 [facility] [address] [facility] [id number] [address] [place] [address] Jan, Attention deficit hyperactiv ity disorder (ADHD), combined type F90.2 [facility] [address] [facility] [id number] [address] [place] [address] Dec, Posttraumatic stress disorde r F43.10 [facility] [address] [facility] [id number] [address] [place] [address] Dec, Posttraumatic stress disorde r F43.10 [facility] [id number] [place] [id number] Nov, Dental examination Z01.20 [facility] [address] [facility] [id number] [id number] Nov, Dental examination Z01.20 [facility] [address] [id number] Nov, Encounter for dental exam an d cleaning w/o abnormal findings Z01.20 [facility] [address] [facility] [id number] [address] [place] [address] Sep, Bipolar disorder, unspecifie d F31.9 ; Posttraumatic stress disorder F43.10 and Attention deficit hyperactivity disorder (ADHD), combined type F90.2 [place] [address] [place] [id number] [address] [place] [phone] 09 Aug, 2017 Posttraumatic stress disorde r F43.10 [facility] [address] [facility] [id number] [address] [place] [phone] 15 Jul, 2017 Other nursing home (current) dr nubia briceno Z79.899 [place] [address] [facility] [id number] [address] [place] [phone] 11 Jul, 2017 Bipolar disorder, unspecifie d F31.9 ; Attention deficit hyperactivity disorder (ADHD), combined type F90.2 and Posttraumatic stress disorder F43.10 [facility] [address] [facility] [id number] [address] [place] [phone] Jun, Bipolar disorder, unspecifie d F31.9 ; Posttraumatic stress disorder F43.10 ; Attention deficit hyperactivity disorder (ADHD), combined type F90.2 and 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 Z79.899 [facility] [address] [id number] [address] [place] [phone] March, Bipolar disorder, unspecifie d F31.9 ; Posttraumatic stress disorder F43.10 and Attention deficit hyperactivity disorder (ADHD), combined type F90.2 [facility] [address] [id number] [address] [place] [phone] Dec, Bipolar disorder, unspecifie d F31.9 ; Posttraumatic stress disorder F43.10 and Attention deficit hyperactivity disorder (ADHD), combined type F90.2 [facility] [address] [id number] [address] [place] [phone] Dec, [facility] [address] [id number] [address] [place] [phone] Sep, [facility] [address] [id number] [address] [place] [address] Aug, Bipolar disorder, unspecifie d F31.9 ; Posttraumatic stress disorder F43.10 and Attention deficit hyperactivity disorder (ADHD), combined type F90.2 [facility] [address] [id number] [address] [place] [phone] Jun, [facility] [address] [id number] [address] [place] [phone] March, [facility] [address] [id number] [address] [place] [address] Feb, Bipolar disorder, unspecifie d F31.9 ; Attention deficit hyperactivity disorder (ADHD), combined type F90.2 and Posttraumatic stress disorder F43.10 [facility] [address] [id number] [address] [place] [address] Feb, [facility] [address] [id number] [address] [place] [phone] Feb, [facility] [address] [facility] [id number] [address] [place] [phone] Feb, [facility] [address] [facility] [id number] [address] [place] [address] Jan, [facility] [address] [id number] [address] [place] [address] [id number] Dec, Dental examination Z01.20 [facility] [address] [facility] [id number] [address] [place] [phone] Sep, [facility] [address] [facility] [id number] [address] [place] [phone] Sep, Attention deficit hyperactiv ity disorder (ADHD), combined type F90.2 ; Posttraumatic stress disorder F43.10 and Bipolar disorder, unspecified F31.9 [facility] [address] [facility] [id number] [address] [place] [phone] Aug, [facility] [address] [facility] [id number] [address] [place] [phone] Aug, [facility] [address] [facility] [id number] [address] [place] [address] Jul, [facility] [address] [facility] [id number] [address] [place] [address] May, Bipolar disorder, unspecifie d 296.80 ; 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.00 and Posttraumatic stress disorder 309.81 [facility] [address] [facility] [id number] [address] [place] [address] May, [facility] [address] [facility] [id number] [address] [place] [address] May, [facility] [address] [facility] [id number] [address] [place] [phone] May, [facility] [address] [facility] [id number] [address] [place] [phone] Apr, [facility] [address] [id number] [facility] [place] [address] Apr, [facility] [address] [id number] [address] [place] [address], [place] [address] Apr, [facility] [address] [id number] [address] [place] [address], [place] [address] March, [facility] [address] [id number] [address] [place] [address], [place] [address] March, [facility] [address] [id number] [address] [place] [address], [place] [address] March, [facility] [address] [id number] [address] [place] [address], [place] [address] Feb, [facility] [address] [id number] [address] [place] [address], [place] [address] Feb, [facility] [address] [id number] [address] [place] [address], [place] [address] Jan, [facility] [address] [id number] [address] [place] [address], [place] [address] Jan, [facility] [address] [id number] [address] [place] [address], [place] [address] Jan, [facility] [address] [id number] [address] [place] [address], [place] [address] Jan, [facility] [address] [id number] [address] [place] [address], [place] [address] Jan, [facility] [address] [id number] [address] [place] [address], [place] [address] Jan, [facility] [address] [id number] [address] [place] [address], [place] [address] Jan, [facility] [address] [id number] [address] [place] [address], [place] [address] Jan, [facility] [address] [id number] [address] [place] [address], [place] [address] Jan, 2014 [facility] [address] [id number] [address] [place] [address], [place] [address] Jan, 2014 [facility] [address] [id number] [address] [place] [address], [place] [address] Dec, 2014 [facility] [address] [id number] [address] [place] [address], [place] [address] Dec, 2014 [facility] [address] [id number] [address] [place] [address], [place] [address] Dec, 2014 [facility] [address] [id number] [address] [place] [address], [place] [address] Dec, 2014 [facility] [address] [id number] [address] [place] [address], [place] [address] Oct, [facility] [address] [id number] [address] [place] [address], [place] [address] Oct, [facility] [address] [id number] [address] [place] [address], [place] [address] Oct, [facility] [address] [id number] [address] [place] [address], [place] [address] Oct, [facility] [address] [id number] [address] [place] [address], [place] [address] Oct, [facility] [address] [id number] [address] [place] [address], [place] [address] Oct, [facility] [address] [id number] [address] [place] [address], [place] [address] Oct, [facility] [address] [id number] [address] [place] [address], [place] [address] Sep, [facility] [address] [id number] [address] [place] [address], [place] [address] Sep, [facility] [address] [id number] [address] [place] [address], [place] [address] Sep, [facility] [address] [id number] [address] [place] [address], [place] [address] Sep, [facility] [address] [id number] [address] [place] [address], [place] [address] Sep, [facility] [address] [id number] [address] [place] [address], [place] [address] Sep, [facility] [address] [id number] [address] [place] [address], [place] [address] Sep, [facility] [address] [id number] [address] [place] [address], [place] [address] Sep, [facility] [address] [id number] [address] [place] [address], [place] [address] Aug, [facility] [address] [id number] [address] [place] [address], [place] [address] Aug, [facility] [address] [id number] [address] [place] [address], [place] [address] Aug, [facility] [address] [id number] [address] [place] [address], [place] [address] Aug, [facility] [address] [id number] [address] [place] [address] Jul, [facility] [address] [id number] [address] [place] [address] Jul, [facility] [address] [id number] [address] [place] [address] Jul, [facility] [address] [id number] [address] [place] [address], [place] [address] Jul, [facility] [address] [id number] [address] [place] [address], [place] [address] Jun, [facility] [address] [id number] [address] [place] [phone] Jun, [facility] [address] [id number] [address] [place] [address] Jun, [facility] [address] [id number] [address] [place] [address], [place] [address] Jun, [facility] [address] [id number] [address] [place] [address], [place] [address] May, [facility] [address] [id number] [address] [place] [address], [place] [address] May, [facility] [address] [id number] [address] [place] [address], [place] [address] May, [facility] [address] [id number] [address] [place] [address], [place] [address] May, [facility] [address] [id number] [address] [place] [address], [place] [address] Apr, [facility] [address] [id number] [address] [place] [address], [place] [address] Apr, [facility] [address] [id number] [address] [place] [address], [place] [address] Apr, [facility] [address] [id number] [address] [place] [address], [place] [address] Apr, [facility] [address] [id number] [address] [place] [address], [place] [address] Apr, [facility] [address] [id number] [address] [place] [address], [place] [address] Apr, [facility] [address] [id number] [address] [place] [address], [place] [address] Apr, [facility] [address] [id number] [address] [place] [address], [place] [address] Apr, [facility] [address] [id number] [address] [place] [address], [place] [address] Apr, [facility] [address] [id number] [address] [place] [address], [place] [address] Apr, [facility] [address] [id number] [facility] [place] [address] Apr, [facility] [address] [id number] [address] [place] [address], [place] [address] Apr, [facility] [address] [id number] [address] [place] [address], [place] [address] Apr, [facility] [address] [id number] [address] [place] [address], [place] [address] March, [facility] [address] [id number] [address] [place] [address], [place] [address] March, [facility] [address] [id number] [address] [place] [address], [place] [address] March, [facility] [address] [id number] [address] [place] [address], [place] [address] March, [facility] [address] [id number] [address] [place] [address], [place] [address] Jan, [facility] [address] [id number] [address] [place] [address], [place] [address] Jan, [facility] [address] [id number] [address] [place] [address], [place] [address] Jan, [facility] [address] [id number] [address] [place] [address], [place] [address] Jan, [facility] [address] [id number] [address] [place] [address], [place] [address] Jan, [facility] [address] [id number] [address] [place] [address], [place] [address] Jan, [facility] [address] [id number] [address] [place] [address], [place] [address] Dec, [facility] [address] [id number] [address] [place] [address], [place] [address] Dec, [facility] [address] [id number] [address] [place] [address], [place] [address] Dec, [facility] [address] [id number] [address] [place] [address], [place] [address] Dec, [facility] [address] [id number] [address] [place] [address], [place] [address] Nov, [facility] [address] [id number] [address] [place] [address], [place] [address] Nov, [facility] [address] [id number] [address] [place] [address], [place] [address] Nov, [facility] [address] [id number] [address] [place] [address], [place] [address] Nov, [facility] [address] [id number] [address] [place] [address], [place] [address] Oct, [facility] [address] [id number] [address] [place] [address], [place] [address] Oct, [facility] [address] [id number] [address] [place] [address], [place] [address] Oct, [facility] [address] [id number] [address] [place] [address], [place] [address] Oct, [facility] [address] [id number] [address] [place] [address], [place] [address] Oct, [facility] [address] [id number] [address] [place] [address], [place] [address] Oct, [facility] [address] [id number] [address] [place] [address], [place] [address] Oct, [facility] [address] [id number] [address] [place] [address], [place] [id number] Oct, [facility] [address] [id number] [address] [place] [address], [place] [address] Sep, [facility] [address] [id number] [address] [place] [address], [place] [address] Sep, [facility] [address] [id number] [address] [place] [address], [place] [address] 27 Jul, 2013 [facility] [address] [id number] [address] [place] [address], [place] [address] 12 Jul, 2013 [facility] [address] [id number] [address] [place] [address], [place] [address] 09 Jul, 2013 [facility] [address] [id number] [address] [place] [address], [place] [address] 07 Jul, 2013 [facility] [address] [id number] [address] [place] [address], [place] [address] Jun, [facility] [address] [id number] [address] [place] [address], [place] [address] Jun, [facility] [address] [id number] [address] [place] [address], [place] [address] May, [facility] [address] [id number] [address] [place] [address], [place] [address] Apr, [facility] [address] [id number] [address] [place] [address], [place] [address] Apr, [facility] [address] [id number] [address] [place] [address], [place] [address] Apr, [facility] [address] [id number] [address] [place] [address], [place] [address] March, [facility] [address] [id number] [address] [place] [address], [place] [address] March, [facility] [address] [id number] [address] [place] [address], [place] [address] Feb, [facility] [address] [id number] [address] [place] [address], [place] [address] Jan, [facility] [address] [id number] [address] [place] [address], [place] [address] Jan, [facility] [address] [id number] [address] [place] [address], [place] [address] Dec, [facility] [address] [id number] [address] [place] [address], [place] [address] Dec, [facility] [address] [id number] [address] [place] [address], [place] [address] Nov, [facility] [address] [id number] [address] [place] [address], [place] [address] Nov, [facility] [address] [id number] [address] [place] [address], [place] [address] Nov, [facility] [address] [id number] [address] [place] [address], [place] [address] Oct, [facility] [address] [id number] [address] [place] [address], [place] [address] Oct, [facility] [address] [id number] [address] [place] [address], [place] [address] Oct, [facility] [address] [id number] [address] [place] [address], [place] [address] Oct, [facility] [address] [id number] [address] [place] [address], [place] [address] Sep, [facility] [address] [id number] [address] [place] [address], [place] [address] Sep, [facility] [address] [id number] [address] [place] [address], [place] [address] Sep, [facility] [address] [id number] [address] [place] [address] Sep, [facility] [address] [id number] [address] [place] [address], [place] [address] Sep, [facility] [address] [id number] [address] [place] [address], [place] [address] Sep, [facility] [address] [id number] [address] [place] [address], [place] [address] Aug, [facility] [address] [id number] [address] [place] [address], [place] [address] 26 Jul, 2012 [facility] [address] [id number] [address] [place] [address], [place] [address] 19 Jul, 2012 [facility] [address] [id number] [address] [place] [address], [place] [address] 18 Jul, 2012 [facility] [address] [id number] [address] [place] [address], [place] [address] 14 Jul, 2012 [facility] [address] [id number] [address] [place] [address], [place] [address] Jun, [facility] [address] [id number] [address] [place] [address], [place] [address] Jun, [facility] [address] [id number] [address] [place] [address], [place] [address] Jun, [facility] [address] [id number] [address] [place] [address], [place] [address] Jun, [facility] [address] [id number] [address] [place] [address], [place] [address] May, [facility] [address] [id number] [address] [place] [address], [place] [address] Apr, [facility] [address] [id number] [address] [place] [address], [place] [address] March, [facility] [address] [id number] [address] [place] [address], [place] [address] March, [facility] [address] [id number] [address] [place] [address], [place] [address] March, [facility] [address] [id number] [address] [place] [address], [place] [address] Feb, [facility] [address] [id number] [address] [place] [address], [place] [address] Feb, [facility] [address] [id number] [address] [place] [address], [place] [address] Jan, [facility] [address] [id number] [address] [place] [address], [place] [address] Jan, [facility] [address] [id number] [address] [place] [address], [place] [address] Jan, [facility] [address] [id number] [address] [place] [address], [place] [address] Dec, [facility] [address] [id number] [address] [place] [address], [place] [address] Dec, [facility] [address] [id number] [address] [place] [address], [place] [address] Nov, [facility] [address] [id number] [address] [place] [address], [place] [address] Nov, [facility] [address] [id number] [address] [place] [address], [place] [address] Nov, [facility] [address] [id number] [address] [place] [address], [place] [address] Nov, [facility] [address] [id number] [address] [place] [address], [place] [address] Nov, [facility] [address] [id number] [address] [place] [address], [place] [address] Oct, [facility] [address] [id number] [address] [place] [address], [place] [address] Oct, [facility] [address] [id number] [address] [place] [address], [place] [address] Oct, [facility] [address] [id number] [address] [place] [address], [place] [address] Oct, [facility] [address] [id number] [address] [place] [address], [place] [address] Sep, [facility] [address] [id number] [address] [place] [address], [place] [address] 17 Sep, 2011 [facility] [address] [id number] [place] [address] Sep, [facility] [address] [facility] [id number] [address] [place] [address] Aug, [facility] [address] [facility] [id number] [address] [place] [address] Oct, [facility] [address] [facility] [id number] [address] [place] [address] Oct, [facility] [address] [facility] [id number] [address] [place] [id number] Oct, [facility] [address] [facility] [id number] [address] [place] [id number] Oct, IMMUNIZATIONS No Known Immunizations SOCIAL HISTORY Never Assessed REASON FOR VISIT PLAN OF CARE VITAL SIGNS Height 67.5 in 2014-10-11 Weight 218.12 lbs 2014-10-11 Temperature 98 degrees Fahrenheit 2014-10-11 Heart Rate 80 bpm 2014-10-11 Respiratory Rate 24 2014-10-11 Blood pressure systolic 114 mmHg 2014-10-11 Blood pressure diastolic 86 mmHg 2014-10-11 MEDICATIONS Unknown Medications RESULTS No Results PROCEDURES No Known procedures INSTRUCTIONS MEDICATIONS ADMINISTERED No Known Medications MEDICAL (GENERAL) HISTORY Type Description Date Medical History Guardian requests that we do not explain any treatment to patient! Surgical History No know Surgical history
--- OUTSIDE RECORDS SUMMARY | 2020-04-25 14:55 | XMS REPORT ---
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 Name Role Phone CHEYENNE Barnes Unavailable PROBLEMS Type Condition ICD9-CM Code IGU33-LO Code Onset Dates Condition S tatus SNOMED Code Problem Encounter for long-term (current) use of other medications V58.69 Active 282411739 Problem Posttraumatic stress disorder F43.10 Active 94721644 Problem Bipolar disorder, unspecified F31.9 Active 59882525 Problem 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 Active 53320724 Problem Posttraumatic stress disorder 309.81 Active 53658671 Problem Bipolar disorder, unspecified 296.80 Active 53271920 Problem Attention deficit hyperactivity disorder (ADHD), combi dylon type F90.2 Active 313064712 ALLERGIES No Information ENCOUNTERS Encounter Location Date Diagnosis [facility] [address] [facility] [id number] [address] [place] [address] Jun, OUTREACH [facility] [id number] [place] [address] May, [facility] [address] [facility] [id number] [address] [place] [address] Apr, Bipolar disorder, unspecifie d F31.9 [facility] [address] [id number] [address] [place] [address] Apr, [facility] [address] [id number] [address] [place] [address] Apr, Bipolar disorder, unspecifie d F31.9 [facility] [address] [id number] [address] [place] [address] Apr, Bipolar disorder, unspecifie d F31.9 [facility] [address] [id number] [address] [place] [address] Apr, [facility] [address] [facility] [id number] [address] [place] [address] March, Bipolar disorder, unspecifie d F31.9 ; Attention deficit hyperactivity disorder (ADHD), combined type F90.2 ; Posttraumatic stress disorder F43.10 and 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.[id number] [place] [address] March, Dental examination Z01.20 and Caries K02 .9 [facility] [address] [facility] [id number] [address] [place] [address] Feb, Bipolar disorder, unspecifie d F31.9 [facility] [address] [facility] [id number] [address] [place] [address] Jan, 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 requiring routine preventive dental care K08.9 ; Dental examination Z01.20 and Caries K02.9 [facility] [address] [facility] [id number] [address] [place] [address] Jan, Bipolar disorder, unspecifie d F31.9 [facility] [address] [facility] [id number] [address] [place] [address] Dec, Bipolar disorder, unspecifie d F31.9 ; Attention deficit hyperactivity disorder (ADHD), combined type F90.2 and Posttraumatic stress disorder F43.10 [facility] [address] [facility] [id number] [address] [place] [address] Oct, Sore throat J02.9 [facility] [address] [facility] [id number] [address] [place] [address] Oct, [facility] [address] [facility] [id number] [address] [place] [address] Oct, Bipolar disorder, unspecifie d F31.9 [facility] [address] [id number] [address] [place] [id number] Sep, 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 requiring routine preventive dental care K08.9 [facility] [address] [facility] [id number] [address] [place] [address] Sep, Bipolar disorder, unspecifie d F31.9 ; Attention deficit hyperactivity disorder (ADHD), combined type F90.2 and Posttraumatic stress disorder F43.10 [facility] [address] [id number] [address] [place] [address] Aug, Lymphadenopathy of left cerv ical region R59.0 [facility] [address] [id number] [address] [place] [id number] 05 Aug, 2018 Encounter for immunization Z 23 [facility] [address] [facility] [id number] [address] [place] [address] Aug, Other 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 (current) dr nubia therapy Z79.899 [facility] [address] [facility] [id number] [address] [place] [address] Jul, Bipolar disorder, unspecifie d F31.9 [facility] [address] [facility] [id number] [address] [place] [address] Jun, Bipolar disorder, unspecifie d F31.9 [facility] [address] [facility] [id number] [address] [place] [address] Jun, [facility] [address] [facility] [id number] [address] [place] [address] Jun, Bipolar disorder, unspecifie d F31.9 ; Attention deficit hyperactivity disorder (ADHD), combined type F90.2 ; Posttraumatic stress disorder F43.10 and 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.899 [facility] [address] [id number] [address] [place] [address] [id number] Jun, Dental examination Z01.20 [facility] [address] [id number] [address] [place] [address] May, [facility] [address] [facility] [id number] [address] [place] [address] Apr, Bipolar disorder, unspecifie d F31.9 [facility] [address] [facility] [id number] [address] [place] [address] March, Bipolar disorder, unspecifie d F31.9 ; Attention deficit hyperactivity disorder (ADHD), combined type F90.2 and Posttraumatic stress disorder F43.10 [facility] [address] [facility] [id number] [address] [place] [address] Feb, [facility] [address] [facility] [id number] [address] [place] [address] Feb, Insect bite (nonvenomous), l eft knee, initial encounter S80.262A and Bitten or stung by nonvenomous insect and other nonvenomous arthropods, initial encounter W57.XXXA [facility] [address] [place] [id number] [place] [address] Feb, Bipolar disorder, unspecifie d F31.9 [facility] [id number] [place] [address] [id number] Feb, Dental examination Z01.20 [facility] [address] [place] [id number] [place] [address] Feb, Bipolar disorder, unspecifie d F31.9 ; Attention deficit hyperactivity disorder (ADHD), combined type F90.2 and Posttraumatic stress disorder F43.10 [facility] [address] [id number] [address] [place] [address] [id number] Feb, Dental examination Z01.20 [facility] [address] [place] [id number] [address] [place] [address] Jan, Bipolar disorder, unspecifie d F31.9 [facility] [address] [place] [id number] [address] [place] [address] Jan, Attention deficit hyperactiv ity disorder (ADHD), combined type F90.2 [facility] [address] [place] [id number] [address] [place] [address] Dec, Posttraumatic stress disorde r F43.10 [facility] [address] [facility] [id number] [address] [place] [address] 12 Dec, 2017 Posttraumatic stress disorde r F43.10 [facility] [address] [id number] [address] [place] [id number] Nov, Dental examination Z01.20 [facility] [address] [id number] [address] [place] [address] [id number] Nov, 2017 Encounter for dental exam an d cleaning w/o abnormal findings Z01.20 [facility] [address] [id number] [address] [place] [address] [id number] Nov, Dental examination Z01.20 [facility] [address] [facility] [id number] [address] [place] [address] Sep, Bipolar disorder, unspecifie d F31.9 ; Posttraumatic stress disorder F43.10 and Attention deficit hyperactivity disorder (ADHD), combined type F90.2 [facility] [address] [facility] [id number] [address] [place] [address] Aug, Posttraumatic stress disorde r F43.10 [facility] [address] [facility] [id number] [address] [place] [address] 15 Jul, 2017 Other 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 (current) dr ug therapy Z79.899 [facility] [address] [facility] [id number] [address] [place] [address] Jul, Bipolar disorder, unspecifie d F31.9 ; Attention deficit hyperactivity disorder (ADHD), combined type F90.2 and Posttraumatic stress disorder F43.10 [facility] [address] [facility] [id number] [address] [place] [address] Jun, Bipolar disorder, unspecifie d F31.9 ; Posttraumatic stress disorder F43.10 ; Attention deficit hyperactivity disorder (ADHD), combined type F90.2 and Other 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 (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 Z79.899 [facility] [address] [facility] [id number] [address] [place] [address] March, Bipolar disorder, unspecifie d F31.9 ; Posttraumatic stress disorder F43.10 and Attention deficit hyperactivity disorder (ADHD), combined type F90.2 [facility] [address] [id number] [address] [place] [address] Dec, Bipolar disorder, unspecifie d F31.9 ; Posttraumatic stress disorder F43.10 and Attention deficit hyperactivity disorder (ADHD), combined type F90.2 [facility] [address] [id number] [address] [place] [address] Dec, [facility] [address] [id number] [address] [place] [address] Sep, [facility] [address] [id number] [address] [place] [address] Aug, Bipolar disorder, unspecifie d F31.9 ; Posttraumatic stress disorder F43.10 and Attention deficit hyperactivity disorder (ADHD), combined type F90.2 [facility] [address] [id number] [address] [place] [address] Jun, [facility] [address] [id number] [address] [place] [address] March, [facility] [address] [id number] [address] [place] [address] Feb, Bipolar disorder, unspecifie d F31.9 ; Attention deficit hyperactivity disorder (ADHD), combined type F90.2 and Posttraumatic stress disorder F43.10 [facility] [address] [id number] [address] [place] [address] Feb, [facility] [address] [id number] [address] [place] [address] Feb, [facility] [address] [id number] [address] [place] [address] Feb, [facility] [address] [id number] [address] [place] [address] Jan, [facility] [address] [id number] [address] [place] [address] [id number] Dec, Dental examination Z01.20 [facility] [address] [id number] [address] [place] [address] Sep, [facility] [address] [facility] [id number] [address] [place] [address] Sep, Attention deficit hyperactiv ity disorder (ADHD), combined type F90.2 ; Posttraumatic stress disorder F43.10 and Bipolar disorder, unspecified F31.9 [facility] [address] [facility] [id number] [address] [place] [address] Aug, [facility] [address] [facility] [id number] [address] [place] [address] Aug, [facility] [address] [facility] [id number] [address] [place] [address] Jul, [facility] [address] [facility] [id number] [address] [place] [address] May, Bipolar disorder, unspecifie d 296.80 ; 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.00 and Posttraumatic stress disorder 309.81 [facility] [address] [facility] [id number] [address] [place] [address] May, [facility] [address] [facility] [id number] [address] [place] [address] May, [facility] [address] [facility] [id number] [address] [place] [address] May, [facility] [address] [facility] [id number] [address] [place] [address] Apr, [facility] [address] [facility] [id number] [address] [place] [address] Apr, [facility] [address] [facility] [id number] [address] [place] [address] Apr, [facility] [address] [id number] [address] [place] [address], [place] [address] March, [facility] [address] [id number] [address] [place] [address], [place] [address] March, [facility] [address] [id number] [address] [place] [address], [place] [address] March, [facility] [address] [id number] [address] [place] [address], [place] [address] Feb, [facility] [address] [id number] [address] [place] [address], [place] [address] Feb, [facility] [address] [id number] [address] [place] [address], [place] [address] Jan, [facility] [address] [id number] [address] [place] [address], [place] [address] Jan, [facility] [address] [id number] [address] [place] [address], [place] [address] Jan, [facility] [address] [id number] [address] [place] [address], [place] [address] Jan, [facility] [address] [id number] [address] [place] [address], [place] [address] Jan, [facility] [address] [id number] [address] [place] [address], [place] [address] Jan, [facility] [address] [id number] [address] [place] [address], [place] [address] Jan, [facility] [address] [id number] [address] [place] [address], [place] [address] Jan, [facility] [address] [id number] [address] [place] [address], [place] [address] Jan, [facility] [address] [id number] [address] [place] [address], [place] [address] Jan, [facility] [address] [id number] [address] [place] [address], [place] [address] Dec, [facility] [address] [id number] [address] [place] [address], [place] [address] Dec, 2014 [facility] [address] [id number] [address] [place] [address], [place] [address] Dec, [facility] [address] [id number] [address] [place] [address], [place] [address] Dec, [facility] [address] [id number] [address] [place] [address], [place] [address] Oct, [facility] [address] [id number] [address] [place] [address], [place] [address] Oct, [facility] [address] [id number] [address] [place] [address], [place] [address] Oct, [facility] [address] [id number] [address] [place] [address], [place] [address] Oct, [facility] [address] [id number] [address] [place] [address], [place] [address] Oct, [facility] [address] [id number] [address] [place] [address], [place] [address] Oct, [facility] [address] [id number] [address] [place] [address], [place] [address] Oct, [facility] [address] [id number] [address] [place] [address], [place] [address] Sep, [facility] [address] [id number] [address] [place] [address] Sep, [facility] [address] [id number] [address] [place] [address], [place] [address] Sep, [facility] [address] [id number] [address] [place] [address], [place] [address] Sep, [facility] [address] [id number] [address] [place] [address], [place] [address] Sep, [facility] [address] [id number] [address] [place] [address] Sep, [facility] [address] [id number] [address] [place] [address], [place] [address] Sep, [facility] [address] [id number] [address] [place] [address], [place] [address] Sep, [facility] [address] [id number] [address] [place] [address], [place] [address] Aug, [facility] [address] [id number] [address] [place] [address], [place] [address] Aug, [facility] [address] [id number] [address] [place] [address], [place] [address] Aug, [facility] [address] [id number] [address] [place] [address], [place] [address] Aug, [facility] [address] [id number] [address] [place] [address], [place] [address] Jul, [facility] [address] [id number] [address] [place] [address], [place] [address] Jul, [facility] [address] [id number] [address] [place] [address], [place] [address] Jul, [facility] [address] [id number] [address] [place] [address], [place] [address] Jul, [facility] [address] [id number] [address] [place] [address], [place] [address] Jun, [facility] [address] [id number] [address] [place] [address], [place] [address] Jun, [facility] [address] [id number] [address] [place] [address], [place] [address] Jun, [facility] [address] [id number] [address] [place] [address], [place] [address] Jun, [facility] [address] [id number] [address] [place] [address], [place] [address] May, [facility] [address] [id number] [facility] [place] [address] May, [facility] [address] [id number] [facility] [place] [address] May, [facility] [address] [id number] [facility] [place] [address] May, [facility] [address] [id number] [facility] [place] [address] Apr, [facility] [address] [id number] [facility] [place] [address] Apr, [facility] [address] [id number] [address] [place] [address], [place] [address] Apr, [facility] [address] [id number] [address] [place] [address], [place] [address] Apr, [facility] [address] [id number] [address] [place] [address], [place] [address] Apr, [facility] [address] [id number] [address] [place] [address], [place] [address] Apr, [facility] [address] [id number] [address] [place] [address], [place] [address] Apr, [facility] [address] [id number] [address] [place] [address], [place] [address] Apr, [facility] [address] [id number] [address] [place] [address], [place] [address] Apr, [facility] [address] [id number] [address] [place] [address], [place] [address] Apr, [facility] [address] [id number] [address] [place] [address], [place] [address] Apr, [facility] [address] [id number] [address] [place] [address], [place] [address] Apr, [facility] [address] [id number] [address] [place] [address] [address] Apr, [facility] [address] [id number] [address] [place] [address], [place] [address] March, [facility] [address] [id number] [address] [place] [address], [place] [address] March, [facility] [address] [id number] [address] [place] [address], [place] [address] March, [facility] [address] [id number] [address] [place] [address], [place] [address] March, [facility] [address] [id number] [address] [place] [address], [place] [address] Jan, [facility] [address] [id number] [address] [place] [address], [place] [address] Jan, [facility] [address] [id number] [address] [place] [address], [place] [address] Jan, [facility] [address] [id number] [address] [place] [address], [place] [address] Jan, [facility] [address] [id number] [address] [place] [address], [place] [address] Jan, [facility] [address] [id number] [address] [place] [address], [place] [address] Jan, [facility] [address] [id number] [address] [place] [address], [place] [address] Dec, [facility] [address] [id number] [address] [place] [address], [place] [address] Dec, [facility] [address] [id number] [address] [place] [address], [place] [address] Dec, [facility] [address] [id number] [address] [place] [address], [place] [address] Dec, [facility] [address] [id number] [address] [place] [address], [place] [address] Nov, [facility] [address] [id number] [address] [place] [address], [place] [address] Nov, [facility] [address] [id number] [address] [place] [address], [place] [address] Nov, [facility] [address] [id number] [address] [place] [address], [place] [address] Nov, [facility] [address] [id number] [address] [place] [address], [place] [address] Oct, [facility] [address] [id number] [address] [place] [address], [place] [address] Oct, [facility] [address] [id number] [address] [place] [address], [place] [address] Oct, [facility] [address] [id number] [address] [place] [address], [place] [address] Oct, [facility] [address] [id number] [address] [place] [address], [place] [address] Oct, [facility] [address] [id number] [address] [place] [address], [place] [address] Oct, [facility] [address] [id number] [address] [place] [address], [place] [address] Oct, [facility] [address] [id number] [address] [place] [address], [place] [address] Oct, [facility] [address] [id number] [address] [place] [address], [place] [address] Sep, [facility] [address] [id number] [address] [place] [address], [place] [address] Sep, [facility] [address] [id number] [address] [place] [address], [place] [address] Jul, [facility] [address] [id number] [address] [place] [address], [place] [address] Jul, [facility] [address] [id number] [address] [place] [address], [place] [address] Jul, [facility] [address] [id number] [address] [place] [address], [place] [address] Jul, [facility] [address] [address] [id number] [address] [place] [address], [place] [address] Jun, [facility] [address] [id number] [address] [place] [address], [place] [address] Jun, [facility] [address] [id number] [address] [place] [address], [place] [address] May, [facility] [address] [id number] [address] [place] [address], [place] [address] Apr, [facility] [address] [id number] [address] [place] [address], [place] [address] Apr, [facility] [address] [id number] [address] [place] [address], [place] [address] Apr, [facility] [address] [id number] [address] [place] [address], [place] [address] March, [facility] [address] [id number] [address] [place] [address], [place] [address] March, [facility] [address] [id number] [address] [place] [address], [place] [address] Feb, [facility] [address] [id number] [address] [place] [address], [place] [address] Jan, [facility] [address] [id number] [address] [place] [address], [place] [address] Jan, [facility] [address] [id number] [address] [place] [address], [place] [address] Dec, [facility] [address] [id number] [address] [place] [address], [place] [address] Dec, [facility] [address] [id number] [address] [place] [address], [place] [address] Nov, [facility] [address] [id number] [address] [place] [address], [place] [address] 07 Nov, 2012 [facility] [address] [id number] [address] [place] [address], [place] [address] Nov, [facility] [address] [id number] [address] [place] [address], [place] [address] Oct, [facility] [address] [id number] [address] [place] [address], [place] [address] Oct, [facility] [address] [id number] [address] [place] [address], [place] [address] Oct, [facility] [address] [id number] [address] [place] [address], [place] [address] Oct, [facility] [address] [id number] [address] [place] [address], [place] [address] Sep, [facility] [address] [id number] [address] [place] [address], [place] [address] 29 Sep, 2012 [facility] [address] [id number] [address] [place] [address], [place] [address] Sep, [facility] [address] [id number] [address] [place] [address], [place] [address] Sep, [facility] [address] [id number] [address] [place] [address], [place] [address] Sep, [facility] [address] [id number] [address] [place] [address], [place] [address] 15 Sep, 2012 [facility] [address] [id number] [address] [place] [address], [place] [address] Aug, [facility] [address] [id number] [address] [place] [address], [place] [address] 26 Jul, 2012 [facility] [address] [id number] [address] [place] [address], [place] [address] 19 Jul, 2012 [facility] [address] [id number] [address] [place] [address], [place] [address] 18 Jul, 2012 [facility] [address] [id number] [address] [place] [address], [place] [address] Jul, [facility] [address] [id number] [address] [place] [address], [place] [address] Jun, [facility] [address] [id number] [address] [place] [address], [place] [address] Jun, [facility] [address] [id number] [address] [place] [address], [place] [address] Jun, [facility] [address] [id number] [address] [place] [address], [place] [address] Jun, [facility] [address] [id number] [address] [place] [address], [place] [address] May, [facility] [address] [id number] [address] [place] [address], [place] [address] Apr, [facility] [address] [id number] [address] [place] [address], [place] [address] March, [facility] [address] [id number] [address] [place] [address], [place] [address] March, [facility] [address] [id number] [address] [place] [address], [place] [address] March, [facility] [address] [id number] [address] [place] [address], [place] [address] Feb, [facility] [address] [id number] [address] [place] [address], [place] [address] Feb, [facility] [address] [id number] [address] [place] [address], [place] [address] Jan, [facility] [address] [id number] [address] [place] [address], [place] [address] Jan, [facility] [address] [id number] [address] [place] [address], [place] [address] Jan, [facility] [address] [id number] [address] [place] [address], [place] [address] Dec, [facility] [address] [id number] [address] [place] [address], [place] [address] Dec, [facility] [address] [id number] [address] [place] [address], [place] [address] Nov, [facility] [address] [id number] [address] [place] [address], [place] [address] Nov, [facility] [address] [id number] [address] [place] [address], [place] [address] Nov, [facility] [address] [id number] [address] [place] [address], [place] [address] Nov, [facility] [address] [id number] [address] [place] [address], [place] [address] Nov, [facility] [address] [id number] [address] [place] [address], [place] [address] Oct, [facility] [address] [id number] [address] [place] [address], [place] [address] Oct, [facility] [address] [id number] [address] [place] [address], [place] [address] Oct, [facility] [address] [id number] [address] [place] [address], [place] [address] Oct, [facility] [address] [id number] [address] [place] [address], [place] [address] Sep, [facility] [address] [id number] [address] [place] [address], [place] [address] Sep, [facility] [address] [id number] [address] [place] [address], [place] [address] 17 Sep, 2011 [facility] [address] [id number] [address] [place] [address], [place] [address] 13 Aug, 2011 [facility] [address] [id number] [address] [place] [address], [place] [address] 31 Oct, 2010 [facility] [address] [id number] [address] [place] [address] Oct, [facility] [address] [facility] [id number] [address] [place] [address] Oct, [facility] [address] [facility] [id number] [address] [place] [address] Oct, IMMUNIZATIONS No Known Immunizations SOCIAL HISTORY Never Assessed REASON FOR VISIT PLAN OF CARE VITAL SIGNS MEDICATIONS Unknown Medications RESULTS No Results PROCEDURES No Known procedures INSTRUCTIONS MEDICATIONS ADMINISTERED No Known Medications MEDICAL (GENERAL) HISTORY Type Description Date Medical History Guardian requests that we do not explain any treatment to patient! Surgical History No Surgical history information
--- OUTSIDE RECORDS SUMMARY | 2020-04-25 14:55 | XMS REPORT ---
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 Active 33552212 Problem Posttraumatic stress disorder 309.81 Active 96139898 Problem Bipolar disorder, unspecified 296.80 Active 49590513 Problem Attention deficit hyperactivity disorder (ADHD), combi dylon type F90.2 Active [id number] ALLERGIES No Information ENCOUNTERS Encounter Location Date Diagnosis [facility] [address] [facility] [id number] [address] [place] [phone] Jun, OUTREACH [facility] [id number] [place] [phone] May, [facility] [address] [facility] [id number] [address] [place] [address] Apr, Bipolar disorder, unspecifie d F31.9 [facility] [address] [id number] [address] [place] [phone] Apr, [facility] [address] [id number] [address] [place] [id number] Apr, Bipolar disorder, unspecifie d F31.9 [facility] [address] [id number] [address] [place] [phone] Apr, Bipolar disorder, unspecifie d F31.9 [facility] [address] [id number] [address] [place] [phone] Apr, [facility] [address] [facility] [id number] [address] [place] [phone] March, Bipolar disorder, unspecifie d F31.9 ; Attention deficit hyperactivity disorder (ADHD), combined type F90.2 ; Posttraumatic stress disorder F43.10 and Other photographer portrait (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 Z79.[id number] [place] [phone] March, Dental examination Z01.20 and Caries K02 .9 [facility] [address] [facility] [id number] [address] [place] [phone] Feb, Bipolar disorder, unspecifie d F31.9 [facility] [address] [facility] [id number] [address] [place] [phone] Jan, 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 requiring routine preventive dental care K08.9 ; Dental examination Z01.20 and Caries K02.9 [facility] [address] [facility] [id number] [address] [place] [phone] Jan, Bipolar disorder, unspecifie d F31.9 [facility] [address] [facility] [id number] [address] [place] [phone] Dec, Bipolar disorder, unspecifie d F31.9 ; Attention deficit hyperactivity disorder (ADHD), combined type F90.2 and Posttraumatic stress disorder F43.10 [facility] [address] [facility] [id number] [address] [place] [phone] Oct, Sore throat J02.9 [facility] [address] [facility] [id number] [address] [place] [phone] Oct, [facility] [address] [facility] [id number] [address] [place] [phone] Oct, Bipolar disorder, unspecifie d F31.9 [facility] [address] [id number] [address] [place] [id number] Sep, 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 requiring routine preventive dental care K08.9 [facility] [address] [facility] [id number] [address] [place] [address] Sep, Bipolar disorder, unspecifie d F31.9 ; Attention deficit hyperactivity disorder (ADHD), combined type F90.2 and Posttraumatic stress disorder F43.10 [facility] [address] [id number] [address] [place] [phone] Aug, Lymphadenopathy of left cerv ical region R59.0 [facility] [address] [id number] [address] [place] [phone] 05 Aug, 2018 Encounter for immunization Z 23 [facility] [address] [facility] [id number] [address] [place] [address] Aug, Other long-term (current) dr nubia therapy Z79.899 [facility] [address] [facility] [id number] [address] [place] [address] Jul, Bipolar disorder, unspecifie d F31.9 [facility] [address] [facility] [id number] [address] [place] [phone] Jun, Bipolar disorder, unspecifie d F31.9 [facility] [address] [facility] [id number] [address] [place] [phone] Jun, [facility] [address] [facility] [id number] [address] [place] [phone] Jun, Bipolar disorder, unspecifie d F31.9 ; Attention deficit hyperactivity disorder (ADHD), combined type F90.2 ; Posttraumatic stress disorder F43.10 and Other photographer portrait (current) drug therapy Z79.899 [facility] [address] [id number] [address] [place] [id number] Jun, Dental examination Z01.20 [facility] [address] [id number] [address] [place] [phone] May, [facility] [address] [facility] [id number] [address] [place] [phone] Apr, Bipolar disorder, unspecifie d F31.9 [facility] [address] [facility] [id number] [address] [place] [address] March, Bipolar disorder, unspecifie d F31.9 ; Attention deficit hyperactivity disorder (ADHD), combined type F90.2 and Posttraumatic stress disorder F43.10 [facility] [address] [facility] [id number] [address] [place] [phone] Feb, [facility] [address] [facility] [id number] [address] [place] [address] Feb, Insect bite (nonvenomous), l eft knee, initial encounter S80.262A and Bitten or stung by nonvenomous insect and other nonvenomous arthropods, initial encounter W57.XXXA [facility] [id number] [place] [address] Feb, Bipolar disorder, unspecifie d F31.9 [facility] [id number] [place] [address] [id number] Feb, Dental examination Z01.20 [facility] [id number] [place] [phone] Feb, Bipolar disorder, unspecifie d F31.9 ; Attention deficit hyperactivity disorder (ADHD), combined type F90.2 and Posttraumatic stress disorder F43.10 [facility] [address] [id number] [address] [place] [address] [id number] Feb, Dental examination Z01.20 [facility] [address] [id number] [address] [place] [phone] Jan, Bipolar disorder, unspecifie d F31.9 [facility] [address] [id number] [address] [place] [phone] Jan, Attention deficit hyperactiv ity disorder (ADHD), combined type F90.2 [facility] [address] [id number] [address] [place] [address] Dec, Posttraumatic stress disorde r F43.10 [facility] [address] [facility] [id number] [address] [place] [phone] 12 Dec, 2017 Posttraumatic stress disorde r F43.10 [facility] [address] [id number] [address] [place] [address] [id number] Nov, Dental examination Z01.20 [facility] [address] [id number] [address] [place] [id number] Nov, Dental examination Z01.20 [facility] [address] [id number] [address] [place] [address] [id number] Nov, Encounter for dental exam an d cleaning w/o abnormal findings Z01.20 [facility] [address] [facility] [id number] [address] [place] [id number] Sep, Bipolar disorder, unspecifie d F31.9 ; Posttraumatic stress disorder F43.10 and Attention deficit hyperactivity disorder (ADHD), combined type F90.2 [facility] [address] [facility] [id number] [address] [place] [address] Aug, Posttraumatic stress disorde r F43.10 [facility] [address] [facility] [id number] [address] [place] [phone] 15 Jul, 2017 Other long-term (current) dr ug therapy Z79.899 [facility] [address] [facility] [id number] [address] [place] [phone] Jul, Bipolar disorder, unspecifie d F31.9 ; Attention deficit hyperactivity disorder (ADHD), combined type F90.2 and Posttraumatic stress disorder F43.10 [facility] [address] [facility] [id number] [address] [place] [phone] Jun, Bipolar disorder, unspecifie d F31.9 ; Posttraumatic stress disorder F43.10 ; Attention deficit hyperactivity disorder (ADHD), combined type F90.2 and Other long-term (current) drug therapy Z79.899 [facility] [address] [id number] [address] [place] [phone] March, Bipolar disorder, unspecifie d F31.9 ; Posttraumatic stress disorder F43.10 and Attention deficit hyperactivity disorder (ADHD), combined type F90.2 [facility] [address] [id number] [address] [place] [phone] Dec, Bipolar disorder, unspecifie d F31.9 ; Posttraumatic stress disorder F43.10 and Attention deficit hyperactivity disorder (ADHD), combined type F90.2 [facility] [address] [id number] [address] [place] [phone] Dec, [facility] [address] [id number] [address] [place] [phone] Sep, [facility] [address] [id number] [address] [place] [phone] Aug, Bipolar disorder, unspecifie d F31.9 ; Posttraumatic stress disorder F43.10 and Attention deficit hyperactivity disorder (ADHD), combined type F90.2 [facility] [address] [id number] [address] [place] [phone] Jun, [facility] [address] [id number] [address] [place] [phone] March, [facility] [address] [id number] [address] [place] [phone] Feb, Bipolar disorder, unspecifie d F31.9 ; Attention deficit hyperactivity disorder (ADHD), combined type F90.2 and Posttraumatic stress disorder F43.10 [facility] [address] [id number] [address] [place] [phone] Feb, [facility] [address] [id number] [address] [place] [phone] Feb, [facility] [address] [id number] [address] [place] [phone] Feb, [facility] [address] [id number] [address] [place] [phone] Jan, [facility] [address] [id number] [address] [place] [address] [id number] Dec, Dental examination Z01.20 [facility] [address] [id number] [address] [place] [phone] Sep, [facility] [address] [facility] [id number] [address] [place] [phone] Sep, Attention deficit hyperactiv ity disorder (ADHD), combined type F90.2 ; Posttraumatic stress disorder F43.10 and Bipolar disorder, unspecified F31.9 [facility] [address] [facility] [id number] [address] [place] [phone] Aug, [facility] [address] [facility] [id number] [address] [place] [phone] Aug, [facility] [address] [facility] [id number] [address] [place] [phone] Jul, [facility] [address] [facility] [id number] [address] [place] [phone] May, Bipolar disorder, unspecifie d 296.80 ; 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.00 and Posttraumatic stress disorder 309.81 [facility] [address] [facility] [id number] [address] [place] [phone] May, [facility] [address] [facility] [id number] [address] [place] [phone] May, [facility] [address] [facility] [id number] [address] [place] [phone] May, [facility] [address] [facility] [id number] [address] [place] [phone] Apr, [facility] [address] [facility] [id number] [address] [place] [phone] Apr, [facility] [address] [facility] [id number] [address] [place] [phone] Apr, [facility] [address] [id number] [address] [place] [address], [place] [address] March, [facility] [address] [id number] [address] [place] [address], [place] [address] March, [facility] [address] [id number] [address] [place] [address], [place] [address] March, [facility] [address] [id number] [address] [place] [address], [place] [address] Feb, [facility] [address] [id number] [address] [place] [address], [place] [address] Feb, [facility] [address] [id number] [address] [place] [address], [place] [address] Jan, [facility] [address] [id number] [address] [place] [address], [place] [address] Jan, [facility] [address] [id number] [address] [place] [address], [place] [address] Jan, [facility] [address] [id number] [address] [place] [address], [place] [address] Jan, [facility] [address] [id number] [address] [place] [address], [place] [address] Jan, [facility] [address] [id number] [address] [place] [address], [place] [address] Jan, [facility] [address] [id number] [address] [place] [address], [place] [address] Jan, [facility] [address] [id number] [address] [place] [address], [place] [address] Jan, [facility] [address] [id number] [address] [place] [address], [place] [address] Jan, [facility] [address] [id number] [address] [place] [address], [place] [address] Jan, [facility] [address] [id number] [address] [place] [address], [place] [address] Dec, [facility] [address] [id number] [address] [place] [address], [place] [address] Dec, 2014 [facility] [address] [id number] [address] [place] [address], [place] [address] Dec, [facility] [address] [id number] [address] [place] [address], [place] [address] Dec, [facility] [address] [id number] [address] [place] [address], [place] [address] Oct, [facility] [address] [id number] [address] [place] [address], [place] [address] Oct, [facility] [address] [id number] [address] [place] [address], [place] [address] Oct, [facility] [address] [id number] [address] [place] [address], [place] [address] Oct, [facility] [address] [id number] [address] [place] [address], [place] [address] Oct, [facility] [address] [id number] [address] [place] [address], [place] [address] Oct, [facility] [address] [id number] [address] [place] [address], [place] [address] Oct, [facility] [address] [id number] [address] [place] [address], [place] [address] Sep, [facility] [address] [id number] [address] [place] [phone] Sep, [facility] [address] [id number] [address] [place] [address], [place] [address] Sep, [facility] [address] [id number] [address] [place] [address], [place] [address] Sep, [facility] [address] [id number] [address] [place] [address], [place] [address] Sep, [facility] [address] [id number] [address] [place] [address] Sep, [facility] [address] [id number] [address] [place] [address], [place] [address] Sep, [facility] [address] [id number] [address] [place] [address], [place] [address] Sep, [facility] [address] [id number] [address] [place] [address], [place] [address] Aug, [facility] [address] [id number] [address] [place] [address], [place] [address] Aug, [facility] [address] [id number] [address] [place] [address], [place] [address] Aug, [facility] [address] [id number] [address] [place] [address], [place] [address] Aug, [facility] [address] [id number] [address] [place] [address], [place] [address] Jul, [facility] [address] [id number] [address] [place] [address], [place] [address] Jul, [facility] [address] [id number] [address] [place] [address], [place] [address] Jul, [facility] [address] [id number] [address] [place] [address], [place] [address] Jul, [facility] [address] [id number] [address] [place] [address], [place] [address] Jun, [facility] [address] [id number] [address] [place] [address], [place] [address] Jun, [facility] [address] [id number] [address] [place] [address], [place] [address] Jun, [facility] [address] [id number] [address] [place] [address], [place] [address] Jun, [facility] [address] [id number] [address] [place] [address], [place] [address] May, [facility] [address] [id number] [address] [address] May, [facility] [address] [id number] [address] [address] May, [facility] [address] [id number] [address] [address] May, [facility] [address] [id number] [address] [address] Apr, [facility] [address] [id number] [address] [address] Apr, [facility] [address] [id number] [address] [place] [address], [place] [address] Apr, [facility] [address] [id number] [address] [place] [address], [place] [address] Apr, [facility] [address] [id number] [address] [place] [address], [place] [address] Apr, [facility] [address] [id number] [address] [place] [address], [place] [address] Apr, [facility] [address] [id number] [address] [place] [address], [place] [address] Apr, [facility] [address] [id number] [address] [place] [address], [place] [address] Apr, [facility] [address] [id number] [address] [place] [address], [place] [address] Apr, [facility] [address] [id number] [address] [place] [address], [place] [address] Apr, [facility] [address] [id number] [address] [place] [address], [place] [address] Apr, [facility] [address] [id number] [address] [place] [address], [place] [address] Apr, [facility] [address] [id number] [address] [place] [address] [address] Apr, [facility] [address] [id number] [address] [place] [address], [place] [address] March, [facility] [address] [id number] [address] [place] [address], [place] [address] March, [facility] [address] [id number] [address] [place] [address], [place] [address] March, [facility] [address] [id number] [address] [place] [address], [place] [address] March, [facility] [address] [id number] [address] [place] [address], [place] [address] Jan, [facility] [address] [id number] [address] [place] [address], [place] [address] Jan, [facility] [address] [id number] [address] [place] [address], [place] [address] Jan, [facility] [address] [id number] [address] [place] [address], [place] [address] Jan, [facility] [address] [id number] [address] [place] [address], [place] [address] Jan, [facility] [address] [id number] [address] [place] [address], [place] [address] Jan, [facility] [address] [id number] [address] [place] [address], [place] [address] Dec, [facility] [address] [id number] [address] [place] [address], [place] [address] Dec, [facility] [address] [id number] [address] [place] [address], [place] [address] Dec, [facility] [address] [id number] [address] [place] [address], [place] [address] Dec, [facility] [address] [id number] [address] [place] [address], [place] [address] Nov, [facility] [address] [id number] [address] [place] [address], [place] [address] Nov, [facility] [address] [id number] [address] [place] [address], [place] [address] Nov, [facility] [address] [id number] [address] [place] [address], [place] [address] Nov, [facility] [address] [id number] [address] [place] [address], [place] [address] Oct, [facility] [address] [id number] [address] [place] [address], [place] [address] Oct, [facility] [address] [id number] [address] [place] [address], [place] [address] Oct, [facility] [address] [id number] [address] [place] [address], [place] [address] Oct, [facility] [address] [id number] [address] [place] [address], [place] [address] Oct, [facility] [address] [id number] [address] [place] [address], [place] [address] Oct, [facility] [address] [id number] [address] [place] [address], [place] [address] Oct, [facility] [address] [id number] [address] [place] [address], [place] [address] Oct, [facility] [address] [id number] [address] [place] [address], [place] [address] Sep, [facility] [address] [id number] [address] [place] [address], [place] [address] Sep, [facility] [address] [address] [id number] [address] [place] [address], [place] [address] Jul, [facility] [address] [id number] [address] [place] [address], [place] [address] Jul, [facility] [address] [id number] [address] [place] [address], [place] [address] Jul, [facility] [address] [id number] [address] [place] [address], [place] [address] Jul, [facility] [address] [id number] [address] [place] [address], [place] [address] Jun, [facility] [address] [id number] [address] [place] [address], [place] [address] Jun, [facility] [address] [id number] [address] [place] [address], [place] [address] May, [facility] [address] [id number] [address] [place] [address], [place] [address] Apr, [facility] [address] [id number] [address] [place] [address], [place] [address] Apr, [facility] [address] [id number] [address] [place] [address], [place] [address] Apr, [facility] [address] [id number] [address] [place] [address], [place] [address] March, [facility] [address] [id number] [address] [place] [address], [place] [address] March, [facility] [address] [id number] [address] [place] [address], [place] [address] Feb, [facility] [address] [id number] [address] [place] [address], [place] [address] Jan, [facility] [address] [id number] [address] [place] [address], [place] [address] Jan, [facility] [address] [id number] [address] [place] [address], [place] [address] Dec, [facility] [address] [id number] [address] [place] [address], [place] [address] Dec, [facility] [address] [id number] [address] [place] [address], [place] [address] Nov, [facility] [address] [id number] [address] [place] [address], [place] [address] 07 Nov, 2012 [facility] [address] [id number] [address] [place] [address], [place] [address] Nov, [facility] [address] [id number] [address] [place] [address], [place] [address] Oct, [facility] [address] [id number] [address] [place] [address], [place] [address] Oct, [facility] [address] [id number] [address] [place] [address], [place] [address] Oct, [facility] [address] [id number] [address] [place] [address], [place] [address] Oct, [facility] [address] [id number] [address] [place] [address], [place] [address] Sep, [facility] [address] [id number] [address] [place] [address], [place] [address] 29 Sep, 2012 [facility] [address] [id number] [address] [place] [address], [place] [address] Sep, [facility] [address] [id number] [address] [place] [address], [place] [address] Sep, [facility] [address] [id number] [address] [place] [address], [place] [address] Sep, [facility] [address] [id number] [address] [place] [address], [place] [address] 15 Sep, 2012 [facility] [address] [id number] [address] [place] [address], [place] [address] Aug, [facility] [address] [id number] [address] [place] [address], [place] [address] 26 Jul, 2012 [facility] [address] [id number] [address] [place] [address], [place] [address] 19 Jul, 2012 [facility] [address] [id number] [address] [place] [address], [place] [address] 18 Jul, 2012 [facility] [address] [id number] [address] [place] [address], [place] [address] Jul, [facility] [address] [id number] [address] [place] [address], [place] [address] Jun, [facility] [address] [id number] [address] [place] [address], [place] [address] Jun, [facility] [address] [id number] [address] [place] [address], [place] [address] Jun, [facility] [address] [id number] [address] [place] [address], [place] [address] Jun, [facility] [address] [id number] [address] [place] [address], [place] [address] May, [facility] [address] [id number] [address] [place] [address], [place] [address] Apr, [facility] [address] [id number] [address] [place] [address], [place] [address] March, [facility] [address] [id number] [address] [place] [address], [place] [address] March, [facility] [address] [id number] [address] [place] [address], [place] [address] March, [facility] [address] [id number] [address] [place] [address], [place] [address] Feb, [facility] [address] [id number] [address] [place] [address], [place] [address] Feb, [facility] [address] [id number] [address] [place] [address], [place] [address] Jan, [facility] [address] [id number] [address] [place] [address], [place] [address] Jan, [facility] [address] [id number] [address] [place] [address], [place] [address] Jan, [facility] [address] [id number] [address] [place] [address], [place] [address] Dec, [facility] [address] [id number] [address] [place] [address], [place] [address] Dec, [facility] [address] [id number] [address] [place] [address], [place] [address] Nov, [facility] [address] [id number] [address] [place] [address], [place] [address] Nov, [facility] [address] [id number] [address] [place] [address], [place] [address] Nov, [facility] [address] [id number] [address] [place] [address], [place] [address] Nov, [facility] [address] [id number] [address] [place] [address], [place] [address] Nov, [facility] [address] [id number] [address] [place] [address], [place] [address] Oct, [facility] [address] [id number] [address] [place] [address], [place] [address] Oct, [facility] [address] [id number] [address] [place] [address], [place] [address] Oct, [facility] [address] [id number] [address] [place] [address], [place] [address] Oct, [facility] [address] [id number] [address] [place] [address], [place] [address] Sep, [facility] [address] [id number] [address] [place] [address], [place] [address] Sep, [facility] [address] [id number] [address] [place] [address], [place] [address] 17 Sep, 2011 [facility] [address] [id number] [address] [place] [address], [place] [address] 13 Aug, 2011 [facility] [address] [id number] [address] [place] [address], [place] [address] 31 Oct, 2010 [facility] [address] [id number] [address] [place] [address] Oct, [facility] [address] [facility] [id number] [address] [place] [address] Oct, [facility] [address] [facility] [id number] [address] [place] [address] Oct, IMMUNIZATIONS No Known Immunizations SOCIAL HISTORY [...]
--- OUTSIDE RECORDS SUMMARY | 2020-04-25 14:56 | XMS REPORT ---
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 Active 83988086 Problem Posttraumatic stress disorder 309.81 Active 43132509 Problem Bipolar disorder, unspecified 296.80 Active 52226105 Problem Attention deficit hyperactivity disorder (ADHD), combi dylon type F90.2 Active [id number] ALLERGIES No Information ENCOUNTERS Encounter Location Date Diagnosis [facility] [address] [facility] [id number] [address] [place] [address] Jun, OUTREACH [facility] [id number] [place] [address] May, [facility] [address] [facility] [id number] [address] [place] [address] Apr, Bipolar disorder, unspecifie d F31.9 [facility] [address] [id number] [address] [place] [address] Apr, [facility] [address] [id number] [address] [place] [address] Apr, Bipolar disorder, unspecifie d F31.9 [facility] [address] [id number] [address] [place] [address] Apr, Bipolar disorder, unspecifie d F31.9 [facility] [address] [id number] [address] [place] [address] Apr, [facility] [address] [facility] [id number] [address] [place] [address] March, Bipolar disorder, unspecifie d F31.9 ; Attention deficit hyperactivity disorder (ADHD), combined type F90.2 ; Posttraumatic stress disorder F43.10 and Other medical terminologist (current) drug therapy Z79.[id number] [place] [address] March, Dental examination Z01.20 and Caries K02 .9 [facility] [address] [facility] [id number] [address] [place] [address] Feb, Bipolar disorder, unspecifie d F31.9 [facility] [address] [facility] [id number] [address] [place] [address] Jan, 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 requiring routine preventive dental care K08.9 ; Dental examination Z01.20 and Caries K02.9 [facility] [address] [facility] [id number] [address] [place] [address] Jan, Bipolar disorder, unspecifie d F31.9 [facility] [address] [facility] [id number] [address] [place] [address] Dec, Bipolar disorder, unspecifie d F31.9 ; Attention deficit hyperactivity disorder (ADHD), combined type F90.2 and Posttraumatic stress disorder F43.10 [facility] [address] [facility] [id number] [address] [place] [address] Oct, Sore throat J02.9 [facility] [address] [facility] [id number] [address] [place] [address] Oct, [facility] [address] [facility] [id number] [address] [place] [address] Oct, Bipolar disorder, unspecifie d F31.9 [facility] [address] [id number] [address] [place] [id number] Sep, 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 requiring routine preventive dental care K08.9 [facility] [address] [facility] [id number] [address] [place] [address] Sep, Bipolar disorder, unspecifie d F31.9 ; Attention deficit hyperactivity disorder (ADHD), combined type F90.2 and Posttraumatic stress disorder F43.10 [facility] [address] [id number] [address] [place] [address] Aug, Lymphadenopathy of left cerv ical region R59.0 [facility] [address] [id number] [address] [place] [id number] 05 Aug, 2018 Encounter for immunization Z 23 [facility] [address] [facility] [id number] [address] [place] [address] Aug, Other fpc (current) dr nubia therapy Z79.899 [facility] [address] [facility] [id number] [address] [place] [address] Jul, Bipolar disorder, unspecifie d F31.9 [facility] [address] [facility] [id number] [address] [place] [address] Jun, Bipolar disorder, unspecifie d F31.9 [facility] [address] [facility] [id number] [address] [place] [address] Jun, [facility] [address] [facility] [id number] [address] [place] [address] Jun, Bipolar disorder, unspecifie d F31.9 ; Attention deficit hyperactivity disorder (ADHD), combined type F90.2 ; Posttraumatic stress disorder F43.10 and Other medical terminologist (current) drug therapy Z79.899 [facility] [address] [id number] [address] [place] [id number] Jun, Dental examination Z01.20 [facility] [address] [id number] [address] [place] [address] May, [facility] [address] [facility] [id number] [address] [place] [address] Apr, Bipolar disorder, unspecifie d F31.9 [facility] [address] [facility] [id number] [address] [place] [address] March, Bipolar disorder, unspecifie d F31.9 ; Attention deficit hyperactivity disorder (ADHD), combined type F90.2 and Posttraumatic stress disorder F43.10 [facility] [address] [facility] [id number] [address] [place] [address] Feb, [facility] [address] [facility] [id number] [address] [place] [address] Feb, Insect bite (nonvenomous), l eft knee, initial encounter S80.262A and Bitten or stung by nonvenomous insect and other nonvenomous arthropods, initial encounter W57.XXXA [facility] [id number] [place] [address] Feb, Bipolar disorder, unspecifie d F31.9 [facility] [id number] [place] [id number] Feb, Dental examination Z01.20 [facility] [id number] [place] [address] Feb, Bipolar disorder, unspecifie d F31.9 ; Attention deficit hyperactivity disorder (ADHD), combined type F90.2 and Posttraumatic stress disorder F43.10 [facility] [address] [id number] [address] [place] [address] [id number] Feb, Dental examination Z01.20 [facility] [address] [id number] [address] [place] [address] Jan, Bipolar disorder, unspecifie d F31.9 [facility] [address] [id number] [address] [place] [address] Jan, Attention deficit hyperactiv ity disorder (ADHD), combined type F90.2 [facility] [address] [id number] [address] [place] [address] Dec, Posttraumatic stress disorde r F43.10 [facility] [address] [facility] [id number] [address] [place] [phone] 12 Dec, 2017 Posttraumatic stress disorde r F43.10 [facility] [address] [id number] [address] [place] [address] [id number] Nov, Dental examination Z01.20 [facility] [address] [id number] [address] [place] [address] [id number] Nov, Dental examination Z01.20 [facility] [address] [id number] [address] [place] [address] [id number] Nov, Encounter for dental exam an d cleaning w/o abnormal findings Z01.20 [facility] [address] [facility] [id number] [address] [place] [phone] Sep, Bipolar disorder, unspecifie d F31.9 ; Posttraumatic stress disorder F43.10 and Attention deficit hyperactivity disorder (ADHD), combined type F90.2 [facility] [address] [facility] [id number] [address] [place] [address] Aug, Posttraumatic stress disorde r F43.10 [facility] [address] [facility] [id number] [address] [place] [id number] 15 Jul, 2017 Other fpc (current) dr ug therapy Z79.899 [facility] [address] [facility] [id number] [address] [place] [phone] Jul, Bipolar disorder, unspecifie d F31.9 ; Attention deficit hyperactivity disorder (ADHD), combined type F90.2 and Posttraumatic stress disorder F43.10 [facility] [address] [facility] [id number] [address] [place] [phone] Jun, Bipolar disorder, unspecifie d F31.9 ; Posttraumatic stress disorder F43.10 ; Attention deficit hyperactivity disorder (ADHD), combined type F90.2 and Other fpc (current) drug therapy Z79.899 [facility] [address] [id number] [address] [place] [phone] March, Bipolar disorder, unspecifie d F31.9 ; Posttraumatic stress disorder F43.10 and Attention deficit hyperactivity disorder (ADHD), combined type F90.2 [facility] [address] [id number] [address] [place] [phone] Dec, Bipolar disorder, unspecifie d F31.9 ; Posttraumatic stress disorder F43.10 and Attention deficit hyperactivity disorder (ADHD), combined type F90.2 [facility] [address] [id number] [address] [place] [phone] Dec, [facility] [address] [id number] [address] [place] [phone] Sep, [facility] [address] [id number] [address] [place] [phone] Aug, Bipolar disorder, unspecifie d F31.9 ; Posttraumatic stress disorder F43.10 and Attention deficit hyperactivity disorder (ADHD), combined type F90.2 [facility] [address] [id number] [address] [place] [phone] Jun, [facility] [address] [id number] [address] [place] [id number] March, [facility] [address] [id number] [address] [place] [phone] Feb, Bipolar disorder, unspecifie d F31.9 ; Attention deficit hyperactivity disorder (ADHD), combined type F90.2 and Posttraumatic stress disorder F43.10 [facility] [address] [id number] [address] [place] [phone] Feb, [facility] [address] [id number] [address] [place] [phone] Feb, [facility] [address] [id number] [address] [place] [phone] Feb, [facility] [address] [id number] [address] [place] [phone] Jan, [facility] [address] [id number] [address] [place] [id number] Dec, Dental examination Z01.20 [facility] [address] [id number] [address] [place] [phone] Sep, [facility] [address] [facility] [id number] [address] [place] [phone] Sep, Attention deficit hyperactiv ity disorder (ADHD), combined type F90.2 ; Posttraumatic stress disorder F43.10 and Bipolar disorder, unspecified F31.9 [facility] [address] [facility] [id number] [address] [place] [phone] Aug, [facility] [address] [facility] [id number] [address] [place] [phone] Aug, [facility] [address] [facility] [id number] [address] [place] [address] Jul, [facility] [address] [facility] [id number] [address] [place] [address] May, Bipolar disorder, unspecifie d 296.80 ; 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.00 and Posttraumatic stress disorder 309.81 [facility] [address] [facility] [id number] [address] [place] [address] May, [facility] [address] [facility] [id number] [address] [place] [phone] May, [facility] [address] [facility] [id number] [address] [place] [phone] May, [facility] [address] [facility] [id number] [address] [place] [phone] Apr, [facility] [address] [facility] [id number] [address] [place] [phone] Apr, [facility] [address] [facility] [id number] [address] [place] [phone] Apr, [facility] [address] [id number] [address] [place] [address], [place] [address] March, [facility] [address] [id number] [address] [place] [address], [place] [address] March, [facility] [address] [id number] [address] [place] [address], [place] [address] March, [facility] [address] [id number] [address] [place] [address], [place] [address] Feb, [facility] [address] [id number] [address] [place] [address], [place] [address] Feb, [facility] [address] [id number] [address] [place] [address], [place] [address] Jan, [facility] [address] [id number] [address] [place] [address], [place] [address] Jan, [facility] [address] [id number] [address] [place] [address], [place] [address] Jan, [facility] [address] [id number] [address] [place] [address], [place] [address] Jan, [facility] [address] [id number] [address] [place] [address], [place] [address] Jan, [facility] [address] [id number] [address] [place] [address], [place] [address] Jan, [facility] [address] [id number] [address] [place] [address], [place] [address] Jan, [facility] [address] [id number] [address] [place] [address], [place] [address] Jan, [facility] [address] [id number] [address] [place] [address], [place] [address] Jan, [facility] [address] [id number] [address] [place] [address], [place] [address] Jan, [facility] [address] [id number] [address] [place] [address], [place] [address] Dec, [facility] [address] [id number] [address] [place] [address], [place] [address] Dec, 2014 [facility] [address] [id number] [address] [place] [address], [place] [address] Dec, [facility] [address] [id number] [address] [place] [address], [place] [address] Dec, [facility] [address] [id number] [address] [place] [address], [place] [address] Oct, [facility] [address] [id number] [address] [place] [address], [place] [address] Oct, [facility] [address] [id number] [address] [place] [address], [place] [address] Oct, [facility] [address] [id number] [address] [place] [address], [place] [address] Oct, [facility] [address] [id number] [address] [place] [address], [place] [address] Oct, [facility] [address] [id number] [address] [place] [address], [place] [address] Oct, [facility] [address] [id number] [address] [place] [address], [place] [address] Oct, [facility] [address] [id number] [address] [place] [address], [place] [address] Sep, [facility] [address] [id number] [address] [place] [address] Sep, [facility] [address] [id number] [address] [place] [address], [place] [address] Sep, [facility] [address] [id number] [address] [place] [address], [place] [address] Sep, [facility] [address] [id number] [address] [place] [address], [place] [address] Sep, [facility] [address] [id number] [address] [place] [address] Sep, [facility] [address] [id number] [address] [place] [address], [place] [address] Sep, [facility] [address] [id number] [address] [place] [address], [place] [address] Sep, [facility] [address] [id number] [address] [place] [address], [place] [address] Aug, [facility] [address] [id number] [address] [place] [address], [place] [address] Aug, [facility] [address] [id number] [address] [place] [address], [place] [address] Aug, [facility] [address] [id number] [address] [place] [address], [place] [address] Aug, [facility] [address] [id number] [address] [place] [address], [place] [address] Jul, [facility] [address] [id number] [address] [place] [address], [place] [address] Jul, [facility] [address] [id number] [address] [place] [address], [place] [address] Jul, [facility] [address] [id number] [address] [place] [address], [place] [address] Jul, [facility] [address] [id number] [address] [place] [address], [place] [address] Jun, [facility] [address] [id number] [address] [place] [address], [place] [address] Jun, [facility] [address] [id number] [address] [place] [address], [place] [address] Jun, [facility] [address] [id number] [address] [place] [address], [place] [address] Jun, [facility] [address] [id number] [address] [place] [address], [place] [address] May, [facility] [address] [id number] [facility] [place] [address] May, [facility] [address] [id number] [facility] [place] [address] May, [facility] [address] [id number] [facility] [place] [address] May, [facility] [address] [id number] [facility] [place] [address] Apr, [facility] [address] [id number] [facility] [place] [address] Apr, [facility] [address] [id number] [address] [place] [address], [place] [address] Apr, [facility] [address] [id number] [address] [place] [address], [place] [address] Apr, [facility] [address] [id number] [address] [place] [address], [place] [address] Apr, [facility] [address] [id number] [address] [place] [address], [place] [address] Apr, [facility] [address] [id number] [address] [place] [address], [place] [address] Apr, [facility] [address] [id number] [address] [place] [address], [place] [address] Apr, [facility] [address] [id number] [address] [place] [address], [place] [address] Apr, [facility] [address] [id number] [address] [place] [address], [place] [address] Apr, [facility] [address] [id number] [address] [place] [address], [place] [address] Apr, [facility] [address] [id number] [address] [place] [address], [place] [address] Apr, [facility] [address] [id number] [address] [place] [address] [address] Apr, [facility] [address] [id number] [address] [place] [address], [place] [address] March, [facility] [address] [id number] [address] [place] [address], [place] [address] March, [facility] [address] [id number] [address] [place] [address], [place] [address] March, [facility] [address] [id number] [address] [place] [address], [place] [address] March, [facility] [address] [id number] [address] [place] [address], [place] [address] Jan, [facility] [address] [id number] [address] [place] [address], [place] [address] Jan, [facility] [address] [id number] [address] [place] [address], [place] [address] Jan, [facility] [address] [id number] [address] [place] [address], [place] [address] Jan, [facility] [address] [id number] [address] [place] [address], [place] [address] Jan, [facility] [address] [id number] [address] [place] [address], [place] [address] Jan, [facility] [address] [id number] [address] [place] [address], [place] [address] Dec, [facility] [address] [id number] [address] [place] [address], [place] [address] Dec, [facility] [address] [id number] [address] [place] [address], [place] [address] Dec, [facility] [address] [id number] [address] [place] [address], [place] [address] Dec, [facility] [address] [id number] [address] [place] [address], [place] [address] Nov, [facility] [address] [id number] [address] [place] [address], [place] [address] Nov, [facility] [address] [id number] [address] [place] [address], [place] [address] Nov, [facility] [address] [id number] [address] [place] [address], [place] [address] Nov, [facility] [address] [id number] [address] [place] [address], [place] [address] Oct, [facility] [address] [id number] [address] [place] [address], [place] [address] Oct, [facility] [address] [id number] [address] [place] [address], [place] [address] Oct, [facility] [address] [id number] [address] [place] [address], [place] [address] Oct, [facility] [address] [id number] [address] [place] [address], [place] [address] Oct, [facility] [address] [id number] [address] [place] [address], [place] [address] Oct, [facility] [address] [id number] [address] [place] [address], [place] [address] Oct, [facility] [address] [id number] [address] [place] [address], [place] [address] Oct, [facility] [address] [id number] [address] [place] [address], [place] [address] Sep, [facility] [address] [id number] [address] [place] [address], [place] [address] Sep, [facility] [address] [id number] [address] [place] [address], [place] [address] Jul, [facility] [address] [id number] [address] [place] [address], [place] [address] Jul, [facility] [address] [id number] [address] [place] [address], [place] [address] Jul, [facility] [address] [id number] [address] [place] [address], [place] [address] Jul, [facility] [address] [id number] [address] [place] [address], [place] [address] Jun, [facility] [address] [id number] [address] [place] [address], [place] [address] Jun, [facility] [address] [id number] [address] [place] [address], [place] [address] May, [facility] [address] [id number] [address] [place] [address], [place] [address] Apr, [facility] [address] [id number] [address] [place] [address], [place] [address] Apr, [facility] [address] [id number] [address] [place] [address], [place] [address] Apr, [facility] [address] [id number] [address] [place] [address], [place] [address] March, [facility] [address] [id number] [address] [place] [address], [place] [id number] March, [facility] [address] [id number] [address] [place] [address], [place] [address] Feb, [facility] [address] [id number] [address] [place] [address], [place] [address] Jan, [facility] [address] [id number] [address] [place] [address], [place] [address] Jan, [facility] [address] [id number] [address] [place] [address], [place] [address] Dec, [facility] [address] [id number] [address] [place] [address], [place] [address] Dec, [facility] [address] [id number] [address] [place] [address], [place] [address] Nov, [facility] [address] [id number] [address] [place] [address], [place] [address] 07 Nov, 2012 [facility] [address] [id number] [address] [place] [address], [place] [address] Nov, [facility] [address] [id number] [address] [place] [address], [place] [address] Oct, [facility] [address] [id number] [address] [place] [address], [place] [address] Oct, [facility] [address] [id number] [address] [place] [address], [place] [address] Oct, [facility] [address] [id number] [address] [place] [address], [place] [address] Oct, [facility] [address] [id number] [address] [place] [address], [place] [address] Sep, [facility] [address] [id number] [address] [place] [address], [place] [address] 29 Sep, 2012 [facility] [address] [id number] [address] [place] [address], [place] [address] Sep, [facility] [address] [id number] [address] [place] [address], [place] [address] Sep, [facility] [address] [id number] [address] [place] [address], [place] [address] Sep, [facility] [address] [id number] [address] [place] [address], [place] [address] 15 Sep, 2012 [facility] [address] [id number] [address] [place] [address], [place] [address] Aug, [facility] [address] [id number] [address] [place] [address], [place] [address] 26 Jul, 2012 [facility] [address] [id number] [address] [place] [address], [place] [address] 19 Jul, 2012 [facility] [address] [id number] [address] [place] [address], [place] [address] 18 Jul, 2012 [facility] [address] [id number] [address] [place] [address], [place] [address] Jul, [facility] [address] [id number] [address] [place] [address], [place] [address] Jun, [facility] [address] [id number] [address] [place] [address], [place] [address] Jun, [facility] [address] [id number] [address] [place] [address], [place] [address] Jun, [facility] [address] [id number] [address] [place] [address], [place] [address] Jun, [facility] [address] [id number] [address] [place] [address], [place] [address] May, [facility] [address] [id number] [address] [place] [address], [place] [address] Apr, [facility] [address] [id number] [address] [place] [address], [place] [address] March, [facility] [address] [id number] [address] [place] [address], [place] [address] March, [facility] [address] [id number] [address] [place] [address], [place] [address] March, [facility] [address] [id number] [address] [place] [address], [place] [address] Feb, [facility] [address] [id number] [address] [place] [address], [place] [address] Feb, [facility] [address] [id number] [address] [place] [address], [place] [address] Jan, [facility] [address] [id number] [address] [place] [address], [place] [address] Jan, [facility] [address] [id number] [address] [place] [address], [place] [address] Jan, [facility] [address] [id number] [address] [place] [address], [place] [address] Dec, [facility] [address] [id number] [address] [place] [address], [place] [address] Dec, [facility] [address] [id number] [address] [place] [address], [place] [address] Nov, [facility] [address] [id number] [address] [place] [address], [place] [address] Nov, [facility] [address] [id number] [address] [place] [address], [place] [address] Nov, [facility] [address] [id number] [address] [place] [address], [place] [address] Nov, [facility] [address] [id number] [address] [place] [address], [place] [address] Nov, [facility] [address] [id number] [address] [place] [address], [place] [address] Oct, [facility] [address] [id number] [address] [place] [address], [place] [address] Oct, [facility] [address] [id number] [address] [place] [address], [place] [address] Oct, [facility] [address] [id number] [address] [place] [address], [place] [address] Oct, [facility] [address] [id number] [address] [place] [address], [place] [address] Sep, [facility] [address] [id number] [address] [place] [address], [place] [address] Sep, [facility] [address] [id number] [address] [place] [address], [place] [address] 17 Sep, 2011 [facility] [address] [id number] [address] [place] [address], [place] [address] 13 Aug, 2011 [facility] [address] [id number] [address] [place] [address], [place] [address] 31 Oct, 2010 [facility] [address] [id number] [address] [place] [address] Oct, [facility] [address] [facility] [id number] [address] [place] [address] Oct, [facility] [address] [facility] [id number] [address] [place] [address] Oct, IMMUNIZATIONS No Known Immunizations SOCIAL HISTORY [...]
--- OUTSIDE RECORDS SUMMARY | 2020-04-25 14:56 | XMS REPORT ---
Author Author Ronna Blackmon Doctor Organization [facility] Address Unknown Phone Unavailable Care Team Providers Care Epidemiologist Name Role Phone Migration, Doctor Unavailable Unavailable PROBLEMS Type Condition ICD9-CM Code HIC19-OI Code Onset Dates Condition S tatus SNOMED Code Problem Encounter for long-term (current) use of other medications V58.69 Active 750440267 Problem Posttraumatic stress disorder F43.10 Active 02009247 Problem Bipolar disorder, unspecified F31.9 Active 74257256 Problem 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 Active 36705623 Problem Posttraumatic stress disorder 309.81 Active 43040585 Problem Bipolar disorder, unspecified 296.80 Active 98301319 Problem Attention deficit hyperactivity disorder (ADHD), combi dylon type F90.2 Active 255847233 ALLERGIES No Information ENCOUNTERS Encounter Location Date Diagnosis [place] [address] [facility] [id number] [address] [place] [phone] Jun, [place] [address] [place] [id number] [address] [place] [phone] March, Bipolar disorder, unspecifie d F31.9 ; Attention deficit hyperactivity disorder (ADHD), combined type F90.2 ; Posttraumatic stress disorder F43.10 and 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 [facility] [id number] [place] [phone] March, Dental examination Z01.20 and Caries K02 .9 [place] [address] [facility] [id number] [address] [place] [phone] Feb, Bipolar disorder, unspecifie d F31.9 [place] [address] [facility] [id number] [address] [place] [phone] Jan, 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 requiring routine preventive dental care K08.9 ; Dental examination Z01.20 and Caries K02.9 [place] [address] [facility] [id number] [address] [place] [phone] Jan, Bipolar disorder, unspecifie d F31.9 [facility] [address] [facility] [id number] [address] [place] [phone] Dec, Bipolar disorder, unspecifie d F31.9 ; Attention deficit hyperactivity disorder (ADHD), combined type F90.2 and Posttraumatic stress disorder F43.10 [facility] [address] [facility] [id number] [address] [place] [phone] Oct, Sore throat J02.9 [facility] [address] [facility] [id number] [address] [place] [phone] Oct, [facility] [address] [facility] [id number] [address] [place] [phone] Oct, Bipolar disorder, unspecifie d F31.9 [facility] [address] [facility] [id number] [address] [place] [id number] Sep, 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 requiring routine preventive dental care K08.9 [facility] [address] [facility] [id number] [address] [place] [phone] Sep, Bipolar disorder, unspecifie d F31.9 ; Attention deficit hyperactivity disorder (ADHD), combined type F90.2 and Posttraumatic stress disorder F43.10 [facility] [address] [facility] [id number] [address] [place] [phone] Aug, Lymphadenopathy of left cerv ical region R59.0 [facility] [address] [facility] [id number] [address] [place] [address] Aug, Encounter for immunization Z 23 [facility] [address] [place] [id number] [place] [phone] Aug, 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 Z79.899 [place] [address] [place] [id number] [address] [place] [phone] Jul, Bipolar disorder, unspecifie d F31.9 [facility] [address] [facility] [id number] [address] [place] [phone] Jun, Bipolar disorder, unspecifie d F31.9 [facility] [address] [facility] [id number] [address] [place] [phone] Jun, [facility] [address] [facility] [id number] [address] [place] [id number] Jun, Bipolar disorder, unspecifie d F31.9 ; Attention deficit hyperactivity disorder (ADHD), combined type F90.2 ; Posttraumatic stress disorder F43.10 and 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 [facility] [id number] [place] [address] [id number] Jun, Dental examination Z01.20 [facility] [address] [facility] [id number] [address] [place] [phone] May, [facility] [address] [facility] [id number] [address] [place] [phone] Apr, Bipolar disorder, unspecifie d F31.9 [facility] [address] [facility] [id number] [address] [place] [phone] March, Bipolar disorder, unspecifie d F31.9 ; Attention deficit hyperactivity disorder (ADHD), combined type F90.2 and Posttraumatic stress disorder F43.10 [facility] [address] [place] [id number] [address] [place] [phone] Feb, [facility] [address] [facility] [id number] [address] [place] [phone] Feb, Insect bite (nonvenomous), l eft knee, initial encounter S80.262A and Bitten or stung by nonvenomous insect and other nonvenomous arthropods, initial encounter W57.XXXA [facility] [address] [facility] [id number] [address] [place] [phone] Feb, Bipolar disorder, unspecifie d F31.9 [facility] [address] [id number] [address] [place] [address] [id number] Feb, Dental examination Z01.20 [facility] [address] [facility] [id number] [address] [place], [place] [id number] Feb, Bipolar disorder, unspecifie d F31.9 ; Attention deficit hyperactivity disorder (ADHD), combined type F90.2 and Posttraumatic stress disorder F43.10 [facility] [address] [id number] [place] [address] [id number] Feb, Dental examination Z01.20 [facility] [address] [facility] [id number] [address] [place] [phone] Jan, Bipolar disorder, unspecifie d F31.9 [facility] [address] [facility] [id number] [place] [phone] Jan, Attention deficit hyperactiv ity disorder (ADHD), combined type F90.2 [facility] [address] [facility] [id number] [address] [place] [phone] Dec, Posttraumatic stress disorde r F43.10 [facility] [address] [facility] [id number] [address] [place] [phone] Dec, Posttraumatic stress disorde r F43.10 [facility] [address] [id number] [address] [place] [address] [id number] Nov, Dental examination Z01.20 [facility] [address] [id number] [address] [place] [address] [id number] Nov, Dental examination Z01.20 [facility] [address] [facility] [id number] [address] [place] [address] [id number] Nov, Encounter for dental exam an d cleaning w/o abnormal findings Z01.20 [facility] [address] [facility] [id number] [address] [place], [place] [id number] Sep, Bipolar disorder, unspecifie d F31.9 ; Posttraumatic stress disorder F43.10 and Attention deficit hyperactivity disorder (ADHD), combined type F90.2 [place] [address] [facility] [id number] [address] [place] [phone] Aug, Posttraumatic stress disorde r F43.10 [facility] [address] [facility] [id number] [address] [place] [phone] 15 Jul, 2017 Other mcc (current) dr ug therapy Z79.899 [facility] [address] [facility] [id number] [address] [place] [phone] 11 Jul, 2017 Bipolar disorder, unspecifie d F31.9 ; Attention deficit hyperactivity disorder (ADHD), combined type F90.2 and Posttraumatic stress disorder F43.10 [place] [address] [facility] [id number] [address] [place] [phone] Jun, Bipolar disorder, unspecifie d F31.9 ; Posttraumatic stress disorder F43.10 ; Attention deficit hyperactivity disorder (ADHD), combined type F90.2 and Other mcc (current) drug therapy Z79.899 [place] [address] [place] [id number] [address] [place] [phone] March, Bipolar disorder, unspecifie d F31.9 ; Posttraumatic stress disorder F43.10 and Attention deficit hyperactivity disorder (ADHD), combined type F90.2 [place] [address] [place] [id number] [address] [place] [phone] Dec, Bipolar disorder, unspecifie d F31.9 ; Posttraumatic stress disorder F43.10 and Attention deficit hyperactivity disorder (ADHD), combined type F90.2 [place] [address] [facility] [id number] [address] [place] [phone] Dec, [facility] [address] [facility] [id number] [address] [place] [phone] Sep, [place] [address] [place] [id number] [address] [place] [phone] Aug, Bipolar disorder, unspecifie d F31.9 ; Posttraumatic stress disorder F43.10 and Attention deficit hyperactivity disorder (ADHD), combined type F90.2 [place] [address] [id number] [address] [place] [phone] Jun, [facility] [address] [id number] [address] [place] [phone] March, [facility] [address] [id number] [address] [place] [phone] Feb, Bipolar disorder, unspecifie d F31.9 ; Attention deficit hyperactivity disorder (ADHD), combined type F90.2 and Posttraumatic stress disorder F43.10 [facility] [address] [id number] [address] [place] [phone] Feb, [facility] [address] [id number] [address] [place] [phone] Feb, [facility] [address] [id number] [address] [place] [phone] Feb, [facility] [address] [id number] [address] [place] [phone] Jan, [facility] [address] [id number] [address] [place] [address] [id number] Dec, Dental examination Z01.20 [facility] [address] [id number] [address] [place] [phone] Sep, [facility] [address] [id number] [address] [place] [phone] Sep, Attention deficit hyperactiv ity disorder (ADHD), combined type F90.2 ; Posttraumatic stress disorder F43.10 and Bipolar disorder, unspecified F31.9 [facility] [address] [id number] [address] [place] [phone] Aug, [facility] [address] [id number] [address] [place] [phone] Aug, [facility] [address] [id number] [address] [place] [phone] Jul, [facility] [address] [id number] [address] [place] [phone] May, Bipolar disorder, unspecifie d 296.80 ; 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.00 and Posttraumatic stress disorder 309.81 [facility] [address] [id number] [address] [place] [phone] May, [facility] [address] [id number] [address] [place] [phone] May, [facility] [address] [id number] [address] [place] [phone] May, [facility] [address] [id number] [address] [place] [phone] Apr, [facility] [address] [id number] [address] [place] [phone] Apr, [facility] [address] [id number] [address] [place] [phone] Apr, [facility] [address] [id number] [address] [place] [phone] March, [facility] [address] [id number] [address] [place] [phone] March, [facility] [address] [facility] [id number] [address] [place] [phone] March, [facility] [address] [id number] [address] [place] [phone] Feb, [facility] [address] [id number] [address] [place] [phone] Feb, [facility] [address] [id number] [address] [place] [phone] Jan, [facility] [address] [id number] [address] [place] [phone] Jan, [facility] [address] [id number] [address] [place] [phone] Jan, [facility] [address] [id number] [address] [place] [address], [place] [address] Jan, 2014 [facility] [address] [id number] [address] [place] [address], [place] [address] Jan, 2014 [facility] [address] [id number] [address] [place] [address], [place] [address] Jan, 2014 [facility] [address] [id number] [address] [place] [address], [place] [address] Jan, 2014 [facility] [address] [id number] [address] [place] [address], [place] [address] Jan, 2014 [facility] [address] [id number] [address] [place] [address], [place] [address] Jan, 2014 [facility] [address] [id number] [address] [place] [address], [place] [address] Jan, 2014 [facility] [address] [id number] [address] [place] [address], [place] [address] Dec, 2014 [facility] [address] [id number] [address] [place] [address], [place] [address] Dec, 2014 [facility] [address] [id number] [address] [place] [address], [place] [address] Dec, 2014 [facility] [address] [id number] [address] [place] [address], [place] [address] Dec, 2014 [facility] [address] [id number] [address] [place] [address], [place] [address] Oct, [facility] [address] [id number] [address] [place] [address], [place] [address] Oct, [facility] [address] [id number] [address] [place] [address], [place] [address] Oct, [facility] [address] [id number] [address] [place] [address], [place] [address] Oct, [facility] [address] [id number] [address] [place] [address], [place] [address] Oct, [facility] [address] [id number] [address] [place] [address], [place] [address] Oct, [facility] [address] [id number] [address] [place] [address], [place] [address] Oct, [facility] [address] [id number] [address] [place] [address], [place] [address] Sep, [facility] [address] [id number] [address] [place] [address], [place] [address] Sep, [facility] [address] [id number] [address] [place] [address], [place] [address] Sep, [facility] [address] [id number] [address] [place] [address], [place] [address] Sep, [facility] [address] [id number] [address] [place] [address], [place] [address] Sep, [facility] [address] [id number] [address] [place] [address], [place] [address] Sep, [facility] [address] [id number] [address] [place] [address], [place] [address] Sep, [facility] [address] [id number] [address] [place] [address], [place] [address] Sep, [facility] [address] [id number] [address] [place] [address], [place] [address] Aug, [facility] [address] [id number] [address] [place] [address], [place] [address] Aug, [facility] [address] [id number] [address] [place] [address], [place] [address] Aug, [facility] [address] [id number] [address] [place] [address], [place] [address] Aug, [facility] [address] [id number] [address] [place] [address], [place] [address] Jul, [facility] [address] [id number] [facility] [place] [address] Jul, [facility] [address] [id number] [facility] [place] [address] Jul, [facility] [address] [id number] [address] [place] [address], [place] [address] Jul, [facility] [address] [id number] [address] [place] [address], [place] [address] Jun, [facility] [address] [id number] [address] [place] [address], [place] [address] Jun, [facility] [address] [id number] [address] [place] [address], [place] [address] Jun, [facility] [address] [id number] [address] [place] [address], [place] [address] Jun, [facility] [address] [id number] [address] [place] [address], [place] [address] May, [facility] [address] [id number] [address] [place] [address], [place] [address] May, [facility] [address] [id number] [address] [place] [address], [place] [address] May, [facility] [address] [id number] [address] [place] [address], [place] [address] May, [facility] [address] [id number] [address] [place] [address], [place] [address] Apr, [facility] [address] [id number] [address] [place] [address], [place] [address] Apr, [facility] [address] [id number] [address] [place] [address], [place] [address] Apr, [facility] [address] [id number] [address] [place] [address], [place] [address] Apr, [facility] [address] [id number] [address] [place] [address], [place] [address] Apr, [facility] [address] [id number] [facility] [place] [address] Apr, [facility] [address] [id number] [address] [place] [address], [place] [address] Apr, [facility] [address] [id number] [address] [place] [address], [place] [address] Apr, [facility] [address] [id number] [address] [place] [address], [place] [address] Apr, [facility] [address] [id number] [address] [place] [address], [place] [address] Apr, [facility] [address] [id number] [address] [place] [address], [place] [address] Apr, [facility] [address] [id number] [address] [place] [address], [place] [address] Apr, [facility] [address] [id number] [address] [place] [address], [place] [address] Apr, [facility] [address] [id number] [address] [place] [address], [place] [address] March, [facility] [address] [id number] [address] [place] [address], [place] [address] March, [facility] [address] [id number] [address] [place] [address], [place] [address] March, [facility] [address] [id number] [address] [place] [address], [place] [address] March, [facility] [address] [id number] [address] [place] [address], [place] [address] Jan, [facility] [address] [id number] [address] [place] [address], [place] [address] Jan, [facility] [address] [id number] [address] [place] [address], [place] [address] Jan, [facility] [address] [id number] [address] [place] [address], [place] [address] Jan, [facility] [address] [id number] [address] [place] [address], [place] [address] Jan, [facility] [address] [id number] [address] [place] [address], [place] [address] Jan, [facility] [address] [id number] [address] [place] [address], [place] [address] Dec, [facility] [address] [id number] [address] [place] [address], [place] [address] Dec, [facility] [address] [id number] [address] [place] [address], [place] [address] Dec, [facility] [address] [id number] [address] [place] [address], [place] [address] Dec, [facility] [address] [id number] [address] [place] [address], [place] [address] Nov, [facility] [address] [id number] [address] [place] [address], [place] [address] Nov, [facility] [address] [id number] [address] [place] [address], [place] [address] Nov, [facility] [address] [id number] [address] [place] [address], [place] [address] Nov, [facility] [address] [id number] [address] [place] [address], [place] [address] Oct, [facility] [address] [id number] [address] [place] [address], [place] [address] Oct, [facility] [address] [id number] [address] [place] [address], [place] [address] Oct, [facility] [address] [id number] [address] [place] [address], [place] [address] Oct, [facility] [address] [id number] [address] [place] [address], [place] [address] Oct, [facility] [address] [id number] [address] [place] [address], [place] [address] Oct, [facility] [address] [id number] [address] [place] [address], [place] [address] Oct, [facility] [address] [id number] [address] [place] [address], [place] [address] Oct, [facility] [address] [id number] [address] [place] [address], [place] [address] Sep, [facility] [address] [id number] [address] [place] [address], [place] [address] Sep, [facility] [address] [id number] [address] [place] [address], [place] [address] Jul, [facility] [address] [id number] [address] [place] [address], [place] [address] Jul, [facility] [address] [id number] [address] [place] [address], [place] [address] Jul, [facility] [address] [id number] [address] [place] [address], [place] [address] Jul, [facility] [address] [id number] [address] [place] [address], [place] [address] Jun, [facility] [address] [id number] [address] [place] [address], [place] [address] Jun, [facility] [address] [id number] [address] [place] [address], [place] [address] May, [facility] [address] [id number] [address] [place] [address], [place] [address] Apr, [facility] [address] [id number] [address] [place] [address], [place] [address] Apr, [facility] [address] [id number] [address] [place] [address], [place] [address] Apr, [facility] [address] [address] [id number] [address] [place] [address], [place] [address] March, [facility] [address] [id number] [address] [place] [address], [place] [address] March, [facility] [address] [id number] [address] [place] [address], [place] [address] Feb, [facility] [address] [id number] [address] [place] [address], [place] [address] Jan, [facility] [address] [id number] [address] [place] [address], [place] [address] Jan, [facility] [address] [id number] [address] [place] [address], [place] [address] Dec, [facility] [address] [id number] [address] [place] [address], [place] [address] Dec, [facility] [address] [id number] [address] [place] [address], [place] [address] Nov, [facility] [address] [id number] [address] [place] [address], [place] [address] Nov, [facility] [address] [id number] [address] [place] [address], [place] [address] Nov, [facility] [address] [id number] [address] [place] [address], [place] [address] Oct, [facility] [address] [id number] [address] [place] [address], [place] [address] Oct, [facility] [address] [id number] [address] [place] [address], [place] [address] Oct, [facility] [address] [id number] [address] [place] [address], [place] [address] Oct, [facility] [address] [id number] [address] [place] [address], [place] [address] Sep, [facility] [address] [id number] [address] [place] [address], [place] [address] Sep, [facility] [address] [id number] [address] [place] [address], [place] [address] Sep, [facility] [address] [id number] [address] [place] [address], [place] [address] Sep, [facility] [address] [id number] [address] [place] [address], [place] [address] 15 Sep, 2012 [facility] [address] [id number] [address] [place] [address], [place] [address] 15 Sep, 2012 [facility] [address] [id number] [address] [place] [address], [place] [address] Aug, [facility] [address] [id number] [address] [place] [address], [place] [address] 26 Jul, 2012 [facility] [address] [id number] [address] [place] [address], [place] [address] 19 Jul, 2012 [facility] [address] [id number] [address] [place] [address], [place] [address] 18 Jul, 2012 [facility] [address] [id number] [address] [place] [address], [place] [address] 14 Jul, 2012 [facility] [address] [id number] [address] [place] [address], [place] [address] Jun, [facility] [address] [id number] [address] [place] [address], [place] [address] Jun, [facility] [address] [id number] [address] [place] [address], [place] [address] Jun, [facility] [address] [id number] [address] [place] [address], [place] [address] Jun, [facility] [address] [id number] [address] [place] [address], [place] [address] May, [facility] [address] [id number] [address] [place] [address], [place] [address] Apr, [facility] [address] [id number] [address] [place] [address], [place] [address] March, [facility] [address] [id number] [address] [place] [address], [place] [address] March, [facility] [address] [id number] [address] [place] [address], [place] [address] March, [facility] [address] [id number] [address] [place] [address], [place] [address] Feb, [facility] [address] [id number] [address] [place] [address], [place] [address] Feb, [facility] [address] [id number] [address] [place] [address], [place] [address] Jan, [facility] [address] [id number] [address] [place] [address], [place] [address] Jan, [facility] [address] [id number] [address] [place] [address], [place] [address] Jan, [facility] [address] [id number] [address] [place] [address], [place] [address] Dec, [facility] [address] [id number] [address] [place] [address], [place] [address] Dec, [facility] [address] [id number] [address] [place] [address], [place] [address] Nov, [facility] [address] [id number] [address] [place] [address], [place] [address] Nov, [facility] [address] [id number] [address] [place] [address], [place] [address] Nov, [facility] [address] [id number] [address] [place] [address], [place] [address] Nov, [facility] [address] [id number] [address] [place] [address], [place] [address] Nov, [facility] [address] [id number] [address] [place] [address], [place] [address] Oct, [facility] [address] [id number] [address] [place] [id number] Oct, [facility] [address] [id number] [address] [place] [id number] Oct, [facility] [address] [id number] [address] [place] [id number] Oct, [facility] [address] [id number] [address] [place] [id number] Sep, [facility] [address] [id number] [address] [place] [id number] Sep, [facility] [address] [id number] [address] [place] [id number] Sep, [facility] [address] [id number] [address] [place] [id number] Aug, [facility] [address] [id number] [address] [place] [id number] Oct, [facility] [address] [id number] [address] [place] [id number] Oct, [facility] [address] [id number] [address] [place] [id number] Oct, [facility] [address] [id number] [address] [place] [id number] Oct, IMMUNIZATIONS No Known Immunizations SOCIAL HISTORY Never Assessed REASON FOR VISIT EMR-[facility] PLAN OF CARE VITAL SIGNS MEDICATIONS Unknown Medications RESULTS No Results PROCEDURES No Known procedures INSTRUCTIONS MEDICATIONS ADMINISTERED No Known Medications MEDICAL (GENERAL) HISTORY Type Description Date Medical History Guardian requests that we do not explain any treatment to patient! Surgical History No Surgical history information
--- OUTSIDE RECORDS SUMMARY | 2020-04-25 14:56 | XMS REPORT ---
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 Active 57679013 Problem Posttraumatic stress disorder 309.81 Active 72968770 Problem Bipolar disorder, unspecified 296.80 Active 67680078 Problem Attention deficit hyperactivity disorder (ADHD), combi dylon type F90.2 Active [id number] ALLERGIES No Information ENCOUNTERS Encounter Location Date Diagnosis [facility], [place] [address] [facility] [id number] [address] [place] [id number] Jun, OUTREACH [facility] [id number] [place] [phone] May, [facility] [place] [address] [facility] [id number] [address] [place] [phone] Apr, Bipolar disorder, unspecifie d F31.9 [facility], [place] [address] [id number] [address] [place] [phone] Apr, [facility] [place] [address] [id number] [address] [place] [phone] Apr, Bipolar disorder, unspecifie d F31.9 [facility] [place] [address] [id number] [address] [place] [phone] Apr, Bipolar disorder, unspecifie d F31.9 [facility] [place] [address] [id number] [address] [place] [phone] Apr, [facility] [place] [address] [facility] [id number] [address] [place] [id number] March, Bipolar disorder, unspecifie d F31.9 ; Attention deficit hyperactivity disorder (ADHD), combined type F90.2 ; Posttraumatic stress disorder F43.10 and Other supervisor 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s (current) drug therapy Z79.[address] [id number] [place] [phone] March, Dental examination Z01.20 and Caries K02 .9 [facility] [place] [address] [facility] [id number] [address] [place] [phone] Feb, Bipolar disorder, unspecifie d F31.9 [facility] [place] [address] [facility] [id number] [address] [place] [phone] Jan, 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 requiring routine preventive dental care K08.9 ; Dental examination Z01.20 and Caries K02.9 [facility] [place] [address] [facility] [id number] [address] [place] [phone] Jan, Bipolar disorder, unspecifie d F31.9 [facility] [place] [address] [facility] [id number] [address] [place] [phone] Dec, Bipolar disorder, unspecifie d F31.9 ; Attention deficit hyperactivity disorder (ADHD), combined type F90.2 and Posttraumatic stress disorder F43.10 [facility] [address] [facility] [id number] [address] [place] [phone] Oct, Sore throat J02.9 [facility] [place] [address] [facility] [id number] [address] [place] [phone] Oct, [facility] [place] [address] [facility] [id number] [address] [place] [phone] Oct, Bipolar disorder, unspecifie d F31.9 [facility] [address] [id number] [address] [place] [phone] Sep, 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 requiring routine preventive dental care K08.9 [facility] [place] [address] [facility] [id number] [address] [place] [id number] Sep, Bipolar disorder, unspecifie d F31.9 ; Attention deficit hyperactivity disorder (ADHD), combined type F90.2 and Posttraumatic stress disorder F43.10 [facility] [address] [id number] [address] [place] [phone] Aug, Lymphadenopathy of left cerv ical region R59.0 [facility] [place] [address] [id number] [address] [place] [id number] 05 Aug, 2018 Encounter for immunization Z 23 [facility] [place] [address] [facility] [id number] [address] [place] [phone] Aug, Other snf (current) dr nubia therapy Z79.899 [facility] [place] [address] [facility] [id number] [address] [place] [phone] Jul, Bipolar disorder, unspecifie d F31.9 [facility] [place] [address] [facility] [id number] [address] [place] [phone] Jun, Bipolar disorder, unspecifie d F31.9 [facility] [place] [address] [facility] [id number] [address] [place] [phone] Jun, [facility] [place] [address] [facility] [id number] [address] [place] [id number] Jun, Bipolar disorder, unspecifie d F31.9 ; Attention deficit hyperactivity disorder (ADHD), combined type F90.2 ; Posttraumatic stress disorder F43.10 and Other supervisor 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s (current) drug therapy Z79.899 [facility] [address] [id number] [address] [place] [id number] Jun, Dental examination Z01.20 [facility] [place] [address] [id number] [address] [place] [id number] May, [facility] [place] [address] [facility] [id number] [address] [place] [id number] Apr, Bipolar disorder, unspecifie d F31.9 [facility] [place] [address] [facility] [id number] [address] [place] [phone] March, Bipolar disorder, unspecifie d F31.9 ; Attention deficit hyperactivity disorder (ADHD), combined type F90.2 and Posttraumatic stress disorder F43.10 [facility] [place] [address] [facility] [id number] [address] [place] [phone] Feb, [facility] [address] [facility] [id number] [address] [place] [id number] Feb, Insect bite (nonvenomous), l eft knee, initial encounter S80.262A and Bitten or stung by nonvenomous insect and other nonvenomous arthropods, initial encounter W57.XXXA [facility] [place] [address] [place] [id number] [place] [phone] Feb, Bipolar disorder, unspecifie d F31.9 [facility] [id number] [place] [address] [phone] Feb, Dental examination Z01.20 [facility] [place] [address] [place] [id number] [place] [phone] Feb, Bipolar disorder, unspecifie d F31.9 ; Attention deficit hyperactivity disorder (ADHD), combined type F90.2 and Posttraumatic stress disorder F43.10 [facility] [address] [id number] [address] [place] [address] [id number] Feb, Dental examination Z01.20 [facility] [place] [address] [place] [id number] [address] [place] [id number] Jan, Bipolar disorder, unspecifie d F31.9 [facility] [place] [address] [place] [id number] [address] [place] [id number] Jan, Attention deficit hyperactiv ity disorder (ADHD), combined type F90.2 [facility] [place] [address] [place] [id number] [address] [place] [phone] Dec, Posttraumatic stress disorde r F43.10 [facility] [place] [address] [facility] [id number] [address] [place] [phone] 12 Dec, 2017 Posttraumatic stress disorde r F43.10 [facility] [address] [id number] [address] [place] [address] [phone] Nov, Dental examination Z01.20 [facility] [address] [id number] [address] [place] [address] [id number] Nov, 2017 Encounter for dental exam an d cleaning w/o abnormal findings Z01.20 [facility] [address] [id number] [address] [place] [address] [id number] Nov, Dental examination Z01.20 [facility] [place] [address] [facility] [id number] [address] [place] [id number] Sep, Bipolar disorder, unspecifie d F31.9 ; Posttraumatic stress disorder F43.10 and Attention deficit hyperactivity disorder (ADHD), combined type F90.2 [facility] [place] [address] [facility] [id number] [address] [place] [id number] Aug, Posttraumatic stress disorde r F43.10 [facility] [place] [address] [facility] [id number] [address] [place] [id number] 15 Jul, 2017 Other snf (current) dr ug therapy Z79.899 [facility] [place] [address] [facility] [id number] [address] [place] [phone] Jul, Bipolar disorder, unspecifie d F31.9 ; Attention deficit hyperactivity disorder (ADHD), combined type F90.2 and Posttraumatic stress disorder F43.10 [facility] [place] [address] [facility] [id number] [address] [place] [id number] Jun, Bipolar disorder, unspecifie d F31.9 ; Posttraumatic stress disorder F43.10 ; Attention deficit hyperactivity disorder (ADHD), combined type F90.2 and Other snf (current) drug therapy Z79.899 [facility] [place] [address] [facility] [id number] [address] [place] [phone] March, Bipolar disorder, unspecifie d F31.9 ; Posttraumatic stress disorder F43.10 and Attention deficit hyperactivity disorder (ADHD), combined type F90.2 [facility] [place] [address] [id number] [address] [place] [phone] Dec, Bipolar disorder, unspecifie d F31.9 ; Posttraumatic stress disorder F43.10 and Attention deficit hyperactivity disorder (ADHD), combined type F90.2 [facility] [place] [address] [id number] [address] [place] [id number] Dec, [facility] [place] [address] [id number] [address] [place] [phone] Sep, [facility] [place] [address] [id number] [address] [place] [phone] Aug, Bipolar disorder, unspecifie d F31.9 ; Posttraumatic stress disorder F43.10 and Attention deficit hyperactivity disorder (ADHD), combined type F90.2 [facility] [place] [address] [id number] [address] [place] [phone] Jun, [facility] [place] [address] [id number] [address] [place] [phone] March, [facility] [place] [address] [id number] [address] [place] [id number] Feb, Bipolar disorder, unspecifie d F31.9 ; Attention deficit hyperactivity disorder (ADHD), combined type F90.2 and Posttraumatic stress disorder F43.10 [facility] [place] [address] [id number] [address] [place] [phone] Feb, [facility] [place] [address] [id number] [address] [place] [phone] Feb, [facility] [place] [address] [id number] [address] [place] [phone] Feb, [facility] [place] [address] [id number] [address] [place] [id number] Jan, [facility] [address] [id number] [address] [place] [address] [id number] Dec, Dental examination Z01.20 [facility] [place] [address] [id number] [address] [place] [id number] Sep, [facility] [place] [address] [facility] [id number] [address] [place] [phone] Sep, Attention deficit hyperactiv ity disorder (ADHD), combined type F90.2 ; Posttraumatic stress disorder F43.10 and Bipolar disorder, unspecified F31.9 [facility] [place] [address] [facility] [id number] [address] [place] [id number] Aug, [facility] [place] [address] [facility] [id number] [address] [place] [phone] Aug, [facility] [place] [address] [facility] [id number] [address] [place] [id number] Jul, [facility] [place] [address] [facility] [id number] [address] [place] [id number] May, Bipolar disorder, unspecifie d 296.80 ; 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.00 and Posttraumatic stress disorder 309.81 [facility] [place] [address] [facility] [id number] [address] [place] [id number] May, [facility] [place] [address] [facility] [id number] [address] [place] [phone] May, [facility] [place] [address] [facility] [id number] [address] [place] [id number] May, [facility] [place] [address] [facility] [id number] [address] [place] [id number] Apr, [facility] [place] [address] [facility] [id number] [address] [place] [phone] Apr, [facility] [place] [address] [facility] [id number] [address] [place] [phone] Apr, [facility] [place] [address] [id number] [address] [place] [address], [place] [address] March, [facility] [address] [id number] [address] [place] [address], [place] [address] March, [facility] [address] [id number] [address] [place] [address], [place] [address] March, [facility] [address] [id number] [address] [place] [address], [place] [address] Feb, [facility] [address] [id number] [address] [place] [address], [place] [address] Feb, [facility] [address] [id number] [address] [place] [address], [place] [address] Jan, [facility] [address] [id number] [address] [place] [address], [place] [address] Jan, [facility] [address] [id number] [address] [place] [address], [place] [address] Jan, [facility] [address] [id number] [address] [place] [address], [place] [address] Jan, [facility] [address] [id number] [address] [place] [address], [place] [address] Jan, [facility] [address] [id number] [address] [place] [address], [place] [address] Jan, [facility] [address] [id number] [address] [place] [address], [place] [address] Jan, [facility] [address] [id number] [address] [place] [address], [place] [address] Jan, [facility] [address] [id number] [address] [place] [address], [place] [address] Jan, [facility] [address] [id number] [address] [place] [address], [place] [address] Jan, [facility] [address] [id number] [address] [place] [address], [place] [address] Dec, [facility] [address] [id number] [address] [place] [address], [place] [address] Dec, 2014 [facility] [address] [id number] [address] [place] [address], [place] [address] Dec, [facility] [address] [id number] [address] [place] [address], [place] [address] Dec, [facility] [address] [id number] [address] [place] [address], [place] [address] Oct, [facility] [address] [id number] [address] [place] [address], [place] [address] Oct, [facility] [address] [id number] [address] [place] [address], [place] [address] Oct, [facility] [address] [id number] [address] [place] [address], [place] [address] Oct, [facility] [address] [id number] [address] [place] [address], [place] [address] Oct, [facility] [address] [id number] [address] [place] [address], [place] [address] Oct, [facility] [address] [id number] [address] [place] [address], [place] [address] Oct, [facility] [address] [id number] [address] [place] [address], [place] [address] Sep, [facility] [address] [id number] [address] [place] [phone] Sep, [facility] [address] [id number] [address] [place] [address], [place] [address] Sep, [facility] [address] [id number] [address] [place] [address], [place] [address] Sep, [facility] [address] [id number] [address] [place] [address], [place] [address] Sep, [facility] [address] [id number] [address] [place] [phone] Sep, [facility] [address] [id number] [address] [place] [address], [place] [address] Sep, [facility] [address] [id number] [address] [place] [address], [place] [address] Sep, [facility] [address] [id number] [address] [place] [address], [place] [address] Aug, [facility] [address] [id number] [address] [place] [address], [place] [address] Aug, [facility] [address] [id number] [address] [place] [address], [place] [address] Aug, [facility] [address] [id number] [address] [place] [address], [place] [address] Aug, [facility] [address] [id number] [address] [place] [address], [place] [address] Jul, [facility] [address] [id number] [address] [place] [address], [place] [address] Jul, [facility] [address] [id number] [address] [place] [address], [place] [address] Jul, [facility] [address] [id number] [address] [place] [address], [place] [address] Jul, [facility] [address] [id number] [address] [place] [address], [place] [address] Jun, [facility] [address] [id number] [address] [place] [address], [place] [address] Jun, [facility] [address] [id number] [address] [place] [address], [place] [address] Jun, [facility] [address] [id number] [address] [place] [address], [place] [address] Jun, [facility] [address] [id number] [address] [place] [address], [place] [address] May, [facility] [address] [id number] [facility] [address] May, [facility] [address] [id number] [facility] [address] May, [facility] [address] [id number] [facility] [address] May, [facility] [address] [id number] [facility] [address] Apr, [facility] [address] [id number] [facility] [address] Apr, [facility] [address] [id number] [address] [place] [address], [place] [address] Apr, [facility] [address] [id number] [address] [place] [address], [place] [address] Apr, [facility] [address] [id number] [address] [place] [address], [place] [address] Apr, [facility] [address] [id number] [address] [place] [address], [place] [address] Apr, [facility] [address] [id number] [address] [place] [address], [place] [address] Apr, [facility] [address] [id number] [address] [place] [address], [place] [address] Apr, [facility] [address] [id number] [address] [place] [address], [place] [address] Apr, [facility] [address] [id number] [address] [place] [address], [place] [address] Apr, [facility] [address] [id number] [address] [place] [address], [place] [address] Apr, [facility] [address] [id number] [address] [place] [address], [place] [address] Apr, [facility] [address] [id number] [address] [place] [address] [address] Apr, [facility] [address] [id number] [address] [place] [address], [place] [address] March, [facility] [address] [id number] [address] [place] [address], [place] [address] March, [facility] [address] [id number] [address] [place] [address], [place] [address] March, [facility] [address] [id number] [address] [place] [address], [place] [address] March, [facility] [address] [id number] [address] [place] [address], [place] [address] Jan, [facility] [address] [id number] [address] [place] [address], [place] [address] Jan, [facility] [address] [id number] [address] [place] [address], [place] [address] Jan, [facility] [address] [id number] [address] [place] [address], [place] [address] Jan, [facility] [address] [id number] [address] [place] [address], [place] [address] Jan, [facility] [address] [id number] [address] [place] [address], [place] [address] Jan, [facility] [address] [id number] [address] [place] [address], [place] [address] Dec, [facility] [address] [id number] [address] [place] [address], [place] [address] Dec, [facility] [address] [id number] [address] [place] [address], [place] [address] Dec, [facility] [address] [id number] [address] [place] [address], [place] [address] Dec, [facility] [address] [id number] [address] [place] [address], [place] [address] Nov, [facility] [address] [id number] [address] [place] [address], [place] [address] Nov, [facility] [address] [id number] [address] [place] [address], [place] [address] Nov, [facility] [address] [id number] [address] [place] [address], [place] [address] Nov, [facility] [address] [id number] [address] [place] [address], [place] [address] Oct, [facility] [address] [id number] [address] [place] [address], [place] [address] Oct, [facility] [address] [id number] [address] [place] [address], [place] [address] Oct, [facility] [address] [id number] [address] [place] [address], [place] [address] Oct, [facility] [address] [id number] [address] [place] [address], [place] [address] Oct, [facility] [address] [id number] [address] [place] [address], [place] [address] Oct, [facility] [address] [address] [id number] [address] [place] [address], [place] [address] Oct, [facility] [address] [id number] [address] [place] [address], [place] [address] Oct, [facility] [address] [id number] [address] [place] [address], [place] [address] Sep, [facility] [address] [id number] [address] [place] [address], [place] [address] Sep, [facility] [address] [id number] [address] [place] [address], [place] [address] Jul, [facility] [address] [id number] [address] [place] [address], [place] [address] Jul, [facility] [address] [id number] [address] [place] [address], [place] [address] Jul, [facility] [address] [id number] [address] [place] [address], [place] [address] Jul, [facility] [address] [id number] [address] [place] [address], [place] [address] Jun, [facility] [address] [id number] [address] [place] [address], [place] [address] Jun, [facility] [address] [id number] [address] [place] [address], [place] [address] May, [facility] [address] [id number] [address] [place] [address], [place] [address] Apr, [facility] [address] [id number] [address] [place] [address], [place] [address] Apr, [facility] [address] [id number] [address] [place] [address], [place] [address] Apr, [facility] [address] [id number] [address] [place] [address], [place] [address] March, [facility] [address] [id number] [address] [place] [address], [place] [address] March, [facility] [address] [id number] [address] [place] [address], [place] [address] Feb, [facility] [address] [id number] [address] [place] [address], [place] [address] Jan, [facility] [address] [id number] [address] [place] [address], [place] [address] Jan, [facility] [address] [id number] [address] [place] [address], [place] [address] Dec, [facility] [address] [id number] [address] [place] [address], [place] [address] Dec, [facility] [address] [id number] [address] [place] [address], [place] [address] Nov, [facility] [address] [id number] [address] [place] [address], [place] [address] 07 Nov, 2012 [facility] [address] [id number] [address] [place] [address], [place] [address] Nov, [facility] [address] [id number] [address] [place] [address], [place] [address] Oct, [facility] [address] [id number] [address] [place] [address], [place] [address] Oct, [facility] [address] [id number] [address] [place] [address], [place] [address] Oct, [facility] [address] [id number] [address] [place] [address], [place] [address] Oct, [facility] [address] [id number] [address] [place] [address], [place] [address] Sep, [facility] [address] [id number] [address] [place] [address], [place] [address] 29 Sep, 2012 [facility] [address] [id number] [address] [place] [address], [place] [address] Sep, [facility] [address] [id number] [address] [place] [address], [place] [address] Sep, [facility] [address] [id number] [address] [place] [address], [place] [address] Sep, [facility] [address] [id number] [address] [place] [address], [place] [address] 15 Sep, 2012 [facility] [address] [id number] [address] [place] [address], [place] [address] Aug, [facility] [address] [id number] [address] [place] [address], [place] [address] 26 Jul, 2012 [facility] [address] [id number] [address] [place] [address], [place] [address] 19 Jul, 2012 [facility] [address] [id number] [address] [place] [address], [place] [address] 18 Jul, 2012 [facility] [address] [id number] [address] [place] [address], [place] [address] Jul, [facility] [address] [id number] [address] [place] [address], [place] [address] Jun, [facility] [address] [id number] [address] [place] [address], [place] [address] Jun, [facility] [address] [id number] [address] [place] [address], [place] [address] Jun, [facility] [address] [id number] [address] [place] [address], [place] [address] Jun, [facility] [address] [id number] [address] [place] [address], [place] [address] May, [facility] [address] [id number] [address] [place] [address], [place] [address] Apr, [facility] [address] [id number] [address] [place] [address], [place] [address] March, [facility] [address] [id number] [address] [place] [address], [place] [address] March, [facility] [address] [id number] [address] [place] [address], [place] [address] March, [facility] [address] [id number] [address] [place] [address], [place] [address] Feb, [facility] [address] [id number] [address] [place] [address], [place] [address] Feb, [facility] [address] [id number] [address] [place] [address], [place] [address] Jan, [facility] [address] [id number] [address] [place] [address], [place] [address] Jan, [facility] [address] [id number] [address] [place] [address], [place] [address] Jan, [facility] [address] [id number] [address] [place] [address], [place] [address] Dec, [facility] [address] [id number] [address] [place] [address], [place] [address] Dec, [facility] [address] [id number] [address] [place] [address], [place] [address] Nov, [facility] [address] [id number] [address] [place] [address], [place] [address] Nov, [facility] [address] [id number] [address] [place] [address], [place] [address] Nov, [facility] [address] [id number] [address] [place] [address], [place] [address] Nov, [facility] [address] [id number] [address] [place] [address], [place] [address] Nov, [facility] [address] [id number] [address] [place] [address], [place] [address] Oct, [facility] [address] [id number] [address] [place] [address], [place] [address] Oct, [facility] [address] [id number] [address] [place] [address], [place] [address] Oct, [facility] [address] [id number] [address] [place] [address], [place] [address] Oct, [facility] [address] [id number] [address] [place] [address], [place] [address] Sep, [facility] [address] [id number] [address] [place] [address], [place] [address] Sep, [facility] [address] [id number] [address] [place] [address], [place] [address] 17 Sep, 2011 [facility] [address] [id number] [address] [place] [address], [place] [address] 13 Aug, 2011 [facility] [address] [id number] [address] [place] [address], [place] [address] 31 Oct, 2010 [facility] [address] [id number] [address] [place] [address] Oct, [facility] [place] [address] [facility] [id number] [address] [place] [address] Oct, [facility] [place] [address] [facility] [id number] [address] [place] [id number] Oct, IMMUNIZATIONS No Known Immunizations SOCIAL HISTORY [...]
--- OUTSIDE RECORDS SUMMARY | 2020-04-25 14:56 | XMS REPORT ---
Author Author Ronna Barnes Organization [facility] Address Unknown Care Team Providers Care Line Construction Engineer Name Role Phone CHEYENNE Barnes Unavailable PROBLEMS Type Condition ICD9-CM Code [id number] Code Onset Dates Condition S tatus SNOMED Code Problem Encounter for long-term (current) use of other medications V58.69 Active 642526160 Problem Posttraumatic stress disorder F43.10 Active 28152037 Problem Bipolar disorder, unspecified F31.9 Active 10327131 Problem 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 Active 66966171 Problem Posttraumatic stress disorder 309.81 Active 14860460 Problem Bipolar disorder, unspecified 296.80 Active 64294922 Problem Attention deficit hyperactivity disorder (ADHD), combi dylon type F90.2 Active [id number] ALLERGIES No Information ENCOUNTERS Encounter Location Date Diagnosis [facility] [address] [facility] [id number] [address] [place] [address] Jun, OUTREACH [facility] [id number] [place] [address] May, [facility] [address] [facility] [id number] [address] [place] [address] Apr, Bipolar disorder, unspecifie d F31.9 [facility] [address] [id number] [address] [place] [address] Apr, [facility] [address] [id number] [address] [place] [address] Apr, Bipolar disorder, unspecifie d F31.9 [facility] [address] [id number] [address] [place] [address] Apr, Bipolar disorder, unspecifie d F31.9 [facility] [address] [id number] [address] [place] [address] Apr, [facility] [address] [facility] [id number] [address] [place] [address] March, Bipolar disorder, unspecifie d F31.9 ; Attention deficit hyperactivity disorder (ADHD), combined type F90.2 ; Posttraumatic stress disorder F43.10 and Other plastic cutter (current) drug therapy Z79.[address] [id number] [place] [address] March, Dental examination Z01.20 and Caries K02 .9 [facility] [address] [facility] [id number] [address] [place] [address] Feb, Bipolar disorder, unspecifie d F31.9 [facility] [address] [facility] [id number] [address] [place] [address] Jan, 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 requiring routine preventive dental care K08.9 ; Dental examination Z01.20 and Caries K02.9 [facility] [address] [facility] [id number] [address] [place] [address] Jan, Bipolar disorder, unspecifie d F31.9 [facility] [address] [facility] [id number] [address] [place] [address] Dec, Bipolar disorder, unspecifie d F31.9 ; Attention deficit hyperactivity disorder (ADHD), combined type F90.2 and Posttraumatic stress disorder F43.10 [facility] [address] [facility] [id number] [address] [place] [address] Oct, Sore throat J02.9 [facility] [address] [facility] [id number] [address] [place] [address] Oct, [facility] [address] [facility] [id number] [address] [place] [address] Oct, Bipolar disorder, unspecifie d F31.9 [facility] [address] [id number] [address] [place] [id number] Sep, 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 requiring routine preventive dental care K08.9 [facility] [address] [facility] [id number] [address] [place] [address] Sep, Bipolar disorder, unspecifie d F31.9 ; Attention deficit hyperactivity disorder (ADHD), combined type F90.2 and Posttraumatic stress disorder F43.10 [facility] [address] [id number] [address] [place] [address] Aug, Lymphadenopathy of left cerv ical region R59.0 [facility] [address] [id number] [address] [place] [address] 05 Aug, 2018 Encounter for immunization Z 23 [facility] [address] [facility] [id number] [address] [place] [address] Aug, Other jail (current) dr nubia therapy Z79.899 [facility] [address] [facility] [id number] [address] [place] [address] Jul, Bipolar disorder, unspecifie d F31.9 [facility] [address] [facility] [id number] [address] [place] [address] Jun, Bipolar disorder, unspecifie d F31.9 [facility] [address] [facility] [id number] [address] [place] [address] Jun, [facility] [address] [facility] [id number] [address] [place] [address] Jun, Bipolar disorder, unspecifie d F31.9 ; Attention deficit hyperactivity disorder (ADHD), combined type F90.2 ; Posttraumatic stress disorder F43.10 and Other plastic cutter (current) drug therapy Z79.899 [facility] [address] [id number] [address] [place] [id number] Jun, Dental examination Z01.20 [facility] [address] [id number] [address] [place] [address] May, [facility] [address] [facility] [id number] [address] [place] [address] Apr, Bipolar disorder, unspecifie d F31.9 [facility] [address] [facility] [id number] [address] [place] [address] March, Bipolar disorder, unspecifie d F31.9 ; Attention deficit hyperactivity disorder (ADHD), combined type F90.2 and Posttraumatic stress disorder F43.10 [facility] [address] [facility] [id number] [address] [place] [address] Feb, [facility] [address] [facility] [id number] [address] [place] [address] Feb, Insect bite (nonvenomous), l eft knee, initial encounter S80.262A and Bitten or stung by nonvenomous insect and other nonvenomous arthropods, initial encounter W57.XXXA [facility] [id number] [place] [address] Feb, Bipolar disorder, unspecifie d F31.9 [facility] [id number] [place] [id number] Feb, Dental examination Z01.20 [facility] [id number] [place] [address] Feb, Bipolar disorder, unspecifie d F31.9 ; Attention deficit hyperactivity disorder (ADHD), combined type F90.2 and Posttraumatic stress disorder F43.10 [facility] [address] [id number] [address] [place] [id number] Feb, Dental examination Z01.20 [facility] [address] [id number] [address] [place] [address] Jan, Bipolar disorder, unspecifie d F31.9 [facility] [address] [id number] [address] [place] [address] Jan, Attention deficit hyperactiv ity disorder (ADHD), combined type F90.2 [facility] [address] [id number] [address] [place] [address] Dec, Posttraumatic stress disorde r F43.10 [facility] [address] [facility] [id number] [address] [place] [address] 12 Dec, 2017 Posttraumatic stress disorde r F43.10 [facility] [address] [id number] [address] [place] [address] [id number] Nov, Dental examination Z01.20 [facility] [address] [id number] [address] [place] [id number] Nov, Dental examination Z01.20 [facility] [address] [id number] [address] [place] [id number] Nov, Encounter for dental exam an d cleaning w/o abnormal findings Z01.20 [facility] [address] [facility] [id number] [address] [place] [address] Sep, Bipolar disorder, unspecifie d F31.9 ; Posttraumatic stress disorder F43.10 and Attention deficit hyperactivity disorder (ADHD), combined type F90.2 [facility] [address] [facility] [id number] [address] [place] [address] Aug, Posttraumatic stress disorde r F43.10 [facility] [address] [facility] [id number] [address] [place] [address] 15 Jul, 2017 Other jail (current) dr ug therapy Z79.899 [facility] [address] [facility] [id number] [address] [place] [address] Jul, Bipolar disorder, unspecifie d F31.9 ; Attention deficit hyperactivity disorder (ADHD), combined type F90.2 and Posttraumatic stress disorder F43.10 [facility] [address] [facility] [id number] [address] [place] [address] Jun, Bipolar disorder, unspecifie d F31.9 ; Posttraumatic stress disorder F43.10 ; Attention deficit hyperactivity disorder (ADHD), combined type F90.2 and Other jail (current) drug therapy Z79.899 [facility] [address] [id number] [address] [place] [address] March, Bipolar disorder, unspecifie d F31.9 ; Posttraumatic stress disorder F43.10 and Attention deficit hyperactivity disorder (ADHD), combined type F90.2 [facility] [address] [id number] [address] [place] [address] Dec, Bipolar disorder, unspecifie d F31.9 ; Posttraumatic stress disorder F43.10 and Attention deficit hyperactivity disorder (ADHD), combined type F90.2 [facility] [address] [id number] [address] [place] [address] Dec, [facility] [address] [id number] [address] [place] [address] Sep, [facility] [address] [id number] [address] [place] [address] Aug, Bipolar disorder, unspecifie d F31.9 ; Posttraumatic stress disorder F43.10 and Attention deficit hyperactivity disorder (ADHD), combined type F90.2 [facility] [address] [id number] [address] [place] [address] Jun, [facility] [address] [id number] [address] [place] [address] March, [facility] [address] [id number] [address] [place] [address] Feb, Bipolar disorder, unspecifie d F31.9 ; Attention deficit hyperactivity disorder (ADHD), combined type F90.2 and Posttraumatic stress disorder F43.10 [facility] [address] [id number] [address] [place] [address] Feb, [facility] [address] [id number] [address] [place] [address] Feb, [facility] [address] [id number] [address] [place] [phone] Feb, [facility] [address] [id number] [address] [place] [phone] Jan, [facility] [address] [id number] [address] [place] [id number] Dec, Dental examination Z01.20 [facility] [address] [id number] [address] [place] [id number] Sep, [facility] [address] [facility] [id number] [address] [place] [address] Sep, Attention deficit hyperactiv ity disorder (ADHD), combined type F90.2 ; Posttraumatic stress disorder F43.10 and Bipolar disorder, unspecified F31.9 [facility] [address] [facility] [id number] [address] [place] [address] Aug, [facility] [address] [facility] [id number] [address] [place] [address] Aug, [facility] [address] [facility] [id number] [address] [place] [address] Jul, [facility] [address] [facility] [id number] [address] [place] [address] May, Bipolar disorder, unspecifie d 296.80 ; 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.00 and Posttraumatic stress disorder 309.81 [facility] [address] [facility] [id number] [address] [place] [address] May, [facility] [address] [facility] [id number] [address] [place] [address] May, [facility] [address] [facility] [id number] [address] [place] [address] May, [facility] [address] [facility] [id number] [address] [place] [address] Apr, [facility] [address] [facility] [id number] [address] [place] [address] Apr, [facility] [address] [facility] [id number] [address] [place] [address] Apr, [facility] [address] [id number] [address] [place] [address], [place] [address] March, [facility] [address] [id number] [address] [place] [address], [place] [address] March, [facility] [address] [id number] [address] [place] [address], [place] [address] March, [facility] [address] [id number] [address] [place] [address], [place] [address] Feb, [facility] [address] [id number] [address] [place] [address], [place] [address] Feb, [facility] [address] [id number] [address] [place] [address], [place] [address] Jan, [facility] [address] [id number] [address] [place] [address], [place] [address] Jan, [facility] [address] [id number] [address] [place] [address], [place] [address] Jan, [facility] [address] [id number] [address] [place] [address], [place] [address] Jan, [facility] [address] [id number] [address] [place] [address], [place] [address] Jan, [facility] [address] [id number] [address] [place] [address], [place] [address] Jan, [facility] [address] [id number] [address] [place] [address], [place] [address] Jan, [facility] [address] [id number] [address] [place] [address], [place] [address] Jan, [facility] [address] [id number] [address] [place] [address], [place] [address] Jan, [facility] [address] [id number] [address] [place] [address], [place] [address] Jan, [facility] [address] [id number] [address] [place] [address], [place] [address] Dec, [facility] [address] [id number] [address] [place] [address], [place] [address] Dec, 2014 [facility] [address] [id number] [address] [place] [address], [place] [address] Dec, [facility] [address] [id number] [address] [place] [address], [place] [address] Dec, [facility] [address] [id number] [address] [place] [address], [place] [address] Oct, [facility] [address] [id number] [address] [place] [address], [place] [address] Oct, [facility] [address] [id number] [address] [place] [address], [place] [address] Oct, [facility] [address] [id number] [address] [place] [address], [place] [address] Oct, [facility] [address] [id number] [address] [place] [address], [place] [address] Oct, [facility] [address] [id number] [address] [place] [address], [place] [address] Oct, [facility] [address] [id number] [address] [place] [address], [place] [address] Oct, [facility] [address] [id number] [address] [place] [address], [place] [address] Sep, [facility] [address] [id number] [address] [place] [address] Sep, [facility] [address] [id number] [address] [place] [address], [place] [address] Sep, [facility] [address] [id number] [address] [place] [address], [place] [address] Sep, [facility] [address] [id number] [address] [place] [address], [place] [address] Sep, [facility] [address] [id number] [address] [place] [address] Sep, [facility] [address] [id number] [address] [place] [address], [place] [address] Sep, [facility] [address] [id number] [address] [place] [address], [place] [address] Sep, [facility] [address] [id number] [address] [place] [address], [place] [address] Aug, [facility] [address] [id number] [address] [place] [address], [place] [address] Aug, [facility] [address] [id number] [address] [place] [address], [place] [address] Aug, [facility] [address] [id number] [address] [place] [address], [place] [address] Aug, [facility] [address] [id number] [address] [place] [address], [place] [address] Jul, [facility] [address] [id number] [address] [place] [address], [place] [address] Jul, [facility] [address] [id number] [address] [place] [address], [place] [address] Jul, [facility] [address] [id number] [address] [place] [address], [place] [address] Jul, [facility] [address] [id number] [address] [place] [address], [place] [address] Jun, [facility] [address] [id number] [address] [place] [address], [place] [address] Jun, [facility] [address] [id number] [address] [place] [address], [place] [address] Jun, [facility] [address] [id number] [address] [place] [address], [place] [address] Jun, [facility] [address] [id number] [address] [place] [address], [place] [address] May, [facility] [address] [id number] [facility] [place] [address] May, [facility] [address] [id number] [facility] [place] [address] May, [facility] [address] [id number] [facility] [place] [address] May, [facility] [address] [id number] [facility] [place] [address] Apr, [facility] [address] [id number] [facility] [place] [address] Apr, [facility] [address] [id number] [address] [place] [address], [place] [address] Apr, [facility] [address] [id number] [address] [place] [address], [place] [address] Apr, [facility] [address] [id number] [address] [place] [address], [place] [address] Apr, [facility] [address] [id number] [address] [place] [address], [place] [address] Apr, [facility] [address] [id number] [address] [place] [address], [place] [address] Apr, [facility] [address] [id number] [address] [place] [address], [place] [address] Apr, [facility] [address] [id number] [address] [place] [address], [place] [address] Apr, [facility] [address] [id number] [address] [place] [address], [place] [address] Apr, [facility] [address] [id number] [address] [place] [address], [place] [address] Apr, [facility] [address] [id number] [address] [place] [address], [place] [address] Apr, [facility] [address] [id number] [address] [place] [address] [address] Apr, [facility] [address] [id number] [address] [place] [address], [place] [address] March, [facility] [address] [id number] [address] [place] [address], [place] [address] March, [facility] [address] [id number] [address] [place] [address], [place] [address] March, [facility] [address] [id number] [address] [place] [address], [place] [address] March, [facility] [address] [id number] [address] [place] [address], [place] [address] Jan, [facility] [address] [id number] [address] [place] [address], [place] [address] Jan, [facility] [address] [id number] [address] [place] [address], [place] [address] Jan, [facility] [address] [id number] [address] [place] [address], [place] [address] Jan, [facility] [address] [id number] [address] [place] [address], [place] [address] Jan, [facility] [address] [id number] [address] [place] [address], [place] [address] Jan, [facility] [address] [id number] [address] [place] [address], [place] [address] Dec, [facility] [address] [id number] [address] [place] [address], [place] [address] Dec, [facility] [address] [id number] [address] [place] [address], [place] [address] Dec, [facility] [address] [id number] [address] [place] [address], [place] [address] Dec, [facility] [address] [id number] [address] [place] [address], [place] [address] Nov, [facility] [address] [id number] [address] [place] [address], [place] [address] Nov, [facility] [address] [id number] [address] [place] [address], [place] [address] Nov, [facility] [address] [id number] [address] [place] [address], [place] [address] Nov, [facility] [address] [id number] [address] [place] [address], [place] [address] Oct, [facility] [address] [id number] [address] [place] [address], [place] [address] Oct, [facility] [address] [id number] [address] [place] [address], [place] [address] Oct, [facility] [address] [id number] [address] [place] [address], [place] [address] Oct, [facility] [address] [id number] [address] [place] [address], [place] [address] Oct, [facility] [address] [id number] [address] [place] [address], [place] [address] Oct, [facility] [address] [id number] [address] [place] [address], [place] [address] Oct, [facility] [address] [id number] [address] [place] [address], [place] [address] Oct, [facility] [address] [id number] [address] [place] [address], [place] [address] Sep, [facility] [address] [id number] [address] [place] [address], [place] [address] Sep, [facility] [address] [id number] [address] [place] [address], [place] [address] Jul, [facility] [address] [id number] [address] [place] [address], [place] [address] Jul, [facility] [address] [id number] [address] [place] [address], [place] [address] Jul, [facility] [address] [id number] [address] [place] [address], [place] [address] Jul, [facility] [address] [id number] [address] [place] [address], [place] [address] Jun, [facility] [address] [id number] [address] [place] [address], [place] [address] Jun, [facility] [address] [id number] [address] [place] [address], [place] [address] May, [facility] [address] [id number] [address] [place] [address], [place] [address] Apr, [facility] [address] [id number] [address] [place] [address], [place] [address] Apr, [facility] [address] [id number] [address] [place] [address], [place] [address] Apr, [facility] [address] [id number] [address] [place] [address], [place] [address] March, [facility] [address] [id number] [address] [place] [address], [place] [address] March, [facility] [address] [id number] [address] [place] [address], [place] [address] Feb, [facility] [address] [id number] [address] [place] [address], [place] [address] Jan, [facility] [address] [id number] [address] [place] [address], [place] [address] Jan, [facility] [address] [id number] [address] [place] [address], [place] [address] Dec, [facility] [address] [id number] [address] [place] [address], [place] [address] Dec, [facility] [address] [id number] [address] [place] [address], [place] [address] Nov, [facility] [address] [id number] [address] [place] [address], [place] [address] 07 Nov, 2012 [facility] [address] [id number] [address] [place] [address], [place] [address] Nov, [facility] [address] [id number] [address] [place] [address], [place] [address] Oct, [facility] [address] [id number] [address] [place] [address], [place] [address] Oct, [facility] [address] [id number] [address] [place] [address], [place] [address] Oct, [facility] [address] [id number] [address] [place] [address], [place] [address] Oct, [facility] [address] [id number] [address] [place] [address], [place] [address] Sep, [facility] [address] [id number] [address] [place] [address], [place] [address] 29 Sep, 2012 [facility] [address] [id number] [address] [place] [address], [place] [address] Sep, [facility] [address] [id number] [address] [place] [address], [place] [address] Sep, [facility] [address] [id number] [address] [place] [address], [place] [address] Sep, [facility] [address] [id number] [address] [place] [address], [place] [address] 15 Sep, 2012 [facility] [address] [id number] [address] [place] [address], [place] [address] Aug, [facility] [address] [id number] [address] [place] [address], [place] [address] 26 Jul, 2012 [facility] [address] [id number] [address] [place] [address], [place] [address] 19 Jul, 2012 [facility] [address] [id number] [address] [place] [address], [place] [address] 18 Jul, 2012 [facility] [address] [id number] [address] [place] [address], [place] [address] Jul, [facility] [address] [id number] [address] [place] [address], [place] [address] Jun, [facility] [address] [id number] [address] [place] [address], [place] [address] Jun, [facility] [address] [id number] [address] [place] [address], [place] [address] Jun, [facility] [address] [id number] [address] [place] [address], [place] [address] Jun, [facility] [address] [id number] [address] [place] [address], [place] [address] May, [facility] [address] [id number] [address] [place] [address], [place] [address] Apr, [facility] [address] [id number] [address] [place] [address], [place] [address] March, [facility] [address] [id number] [address] [place] [address], [place] [address] March, [facility] [address] [id number] [address] [place] [address], [place] [address] March, [facility] [address] [id number] [address] [place] [address], [place] [address] Feb, [facility] [address] [id number] [address] [place] [address], [place] [address] Feb, [facility] [address] [id number] [address] [place] [address], [place] [address] Jan, [facility] [address] [id number] [address] [place] [address], [place] [address] Jan, [facility] [address] [id number] [address] [place] [address], [place] [address] Jan, [facility] [address] [id number] [address] [place] [address], [place] [address] Dec, [facility] [address] [id number] [address] [place] [address], [place] [address] Dec, [facility] [address] [id number] [address] [place] [address], [place] [address] Nov, [facility] [address] [id number] [address] [place] [address], [place] [address] Nov, [facility] [address] [id number] [address] [place] [address], [place] [address] Nov, [facility] [address] [id number] [address] [place] [address], [place] [address] Nov, [facility] [address] [id number] [address] [place] [address], [place] [address] Nov, [facility] [address] [id number] [address] [place] [address], [place] [address] Oct, [facility] [address] [id number] [address] [place] [address], [place] [address] Oct, [facility] [address] [id number] [address] [place] [address], [place] [address] Oct, [facility] [address] [id number] [address] [place] [address], [place] [address] Oct, [facility] [address] [id number] [address] [place] [address], [place] [address] Sep, [facility] [address] [id number] [address] [place] [address], [place] [address] Sep, [facility] [address] [id number] [address] [place] [address], [place] [address] 17 Sep, 2011 [facility] [address] [id number] [address] [place] [address], [place] [address] 13 Aug, 2011 [facility] [address] [id number] [address] [place] [address], [place] [address] 31 Oct, 2010 [facility] [address] [id number] [address] [place] [address] Oct, [facility] [address] [facility] [id number] [address] [place] [address] Oct, [facility] [address] [facility] [id number] [address] [place] [address] Oct, IMMUNIZATIONS No Known Immunizations SOCIAL HISTORY [...]
--- OUTSIDE RECORDS SUMMARY | 2020-04-25 14:57 | XMS REPORT ---
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 [id number] [address] [place] [address] March, [facility] [place] [id number] [place] [address] Jan, 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 requiring routine preventive dental care K08.9 ; Dental examination Z01.20 and Caries K02.9 [facility] [place] [address] [facility] [id number] [address] [place] [address] Jan, Bipolar disorder, unspecifie d F31.9 [facility] [place] [address] [facility] [id number] [address] [place] [address] Dec, Bipolar disorder, unspecifie d F31.9 ; Attention deficit hyperactivity disorder (ADHD), combined type F90.2 and Posttraumatic stress disorder F43.10 [facility] [address] [facility] [id number] [address] [place] [id number] Oct, Sore throat J02.9 [facility] [place] [address] [facility] [id number] [address] [place] [address] Oct, [facility] [place] [address] [facility] [id number] [address] [place] [address] Oct, Bipolar disorder, unspecifie d F31.9 [facility] [address] [facility] [id number] [address] [place] [id number] Sep, 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 requiring routine preventive dental care K08.9 [facility] [place] [address] [facility] [id number] [address] [place] [id number] Sep, Bipolar disorder, unspecifie d F31.9 ; Attention deficit hyperactivity disorder (ADHD), combined type F90.2 and Posttraumatic stress disorder F43.10 [facility] [address] [facility] [id number] [address] [place] [address] Aug, Lymphadenopathy of left cerv ical region R59.0 [facility] [place] [address] [facility] [id number] [address] [place] [address] Aug, Encounter for immunization Z 23 [facility] [place] [address] 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 [id number] [address] [place] [address] Jul, Bipolar disorder, unspecifie d F31.9 [facility] [place] [address] [facility] [id number] [address] [place] [address] Jun, Bipolar disorder, unspecifie d F31.9 [facility] [place] [address] [facility] [id number] [address] [place] [id number] Jun, [facility] [place] [address] [facility] [id number] [address] [place] [address] Jun, Bipolar disorder, unspecifie d F31.9 ; Attention deficit hyperactivity disorder (ADHD), combined type F90.2 ; Posttraumatic stress disorder F43.10 and Other care home (current) drug therapy Z79.899 [facility] [address] [id number] [address] [place] [id number] Jun, Dental examination Z01.20 [facility] [place] [address] [address] May, [facility] [place] [id number] [place] [address] Apr, Bipolar disorder, unspecifie d F31.9 [facility] [place] [address] [address] March, Bipolar disorder, unspecifie d F31.9 ; Attention deficit hyperactivity disorder (ADHD), combined type F90.2 and Posttraumatic stress disorder F43.10 [facility] [place] [address] [phone] Feb, [facility] [address] [address] Feb, Insect bite (nonvenomous), l eft knee, initial encounter S80.262A and Bitten or stung by nonvenomous insect and other nonvenomous arthropods, initial encounter W57.XXXA [facility] [place] [address] [address] Feb, Bipolar disorder, unspecifie d F31.9 [facility] [address] [id number] [address] [place] [address] [id number] Feb, Dental examination Z01.20 [facility] [place] [address] [address] Feb, Bipolar disorder, unspecifie d F31.9 ; Attention deficit hyperactivity disorder (ADHD), combined type F90.2 and Posttraumatic stress disorder F43.10 [facility] [address] [id number] [address] [place] [address] [id number] Feb, Dental examination Z01.20 [facility] [place] [address] [address] Jan, Bipolar disorder, unspecifie d F31.9 [facility] [place] [address] [facility] [id number] [address] [place] [address] Jan, Attention deficit hyperactiv ity disorder (ADHD), combined type F90.2 [facility] [place] [address] [id number] [address] [place] [address] Dec, Posttraumatic stress disorde r F43.10 [facility] [place] [address] [facility] [id number] [address] [place] [address] Dec, Posttraumatic stress disorde r F43.10 [facility] [id number] [place] [id number] Nov, Dental examination Z01.20 [facility] [id number] [id number] Nov, Encounter for dental exam an d cleaning w/o abnormal findings Z01.20 [facility] [id number] [place] [address] [id number] Nov, Dental examination Z01.20 [facility] [place] [address] [facility] [id number] [address] [place] [id number] Sep, Bipolar disorder, unspecifie d F31.9 ; Posttraumatic stress disorder F43.10 and Attention deficit hyperactivity disorder (ADHD), combined type F90.2 [facility] [place] [address] [facility] [id number] [address] [place] [phone] 09 Aug, 2017 Posttraumatic stress disorde r F43.10 [facility] [place] [address] [facility] [id number] [address] [place] [id number] 15 Jul, 2017 Other care home (current) dr nubia briceno Z79.899 [facility] [place] [address] 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 [facility] [place] [address] [id number] [address] [place] [address] March, Bipolar disorder, unspecifie d F31.9 ; Posttraumatic stress disorder F43.10 and Attention deficit hyperactivity disorder (ADHD), combined type F90.2 [facility] [place] [address] [id number] [address] [place] [phone] Dec, Bipolar disorder, unspecifie d F31.9 ; Posttraumatic stress disorder F43.10 and Attention deficit hyperactivity disorder (ADHD), combined type F90.2 [facility] [place] [address] [id number] [address] [place] [id number] Dec, [facility] [place] [address] [id number] [address] [place] [id number] Sep, [facility] [place] [address] [id number] [address] [place] [id number] Aug, Bipolar disorder, unspecifie d F31.9 ; Posttraumatic stress disorder F43.10 and Attention deficit hyperactivity disorder (ADHD), combined type F90.2 [facility] [place] [address] [id number] [address] [place] [id number] Jun, [facility] [place] [address] [id number] [address] [place] [phone] March, [facility] [place] [address] [id number] [address] [place] [phone] Feb, Bipolar disorder, unspecifie d F31.9 ; Attention deficit hyperactivity disorder (ADHD), combined type F90.2 and Posttraumatic stress disorder F43.10 [facility] [place] [address] [id number] [address] [place] [id number] Feb, [facility] [place] [address] [facility] [id number] [address] [place] [phone] Feb, [facility] [place] [address] [facility] [id number] [address] [place] [phone] Feb, [facility] [place] [address] [facility] [id number] [address] [place] [id number] Jan, [facility] [address] [id number] [address] [place] [address] [id number] Dec, Dental examination Z01.20 [facility] [place] [address] [facility] [id number] [address] [place] [id number] Sep, [facility] [place] [address] [facility] [id number] [address] [place] [id number] Sep, Attention deficit hyperactiv ity disorder (ADHD), combined type F90.2 ; Posttraumatic stress disorder F43.10 and Bipolar disorder, unspecified F31.9 [facility] [place] [address] [facility] [id number] [address] [place] [phone] Aug, [facility] [place] [address] [facility] [id number] [address] [place] [phone] Aug, [facility] [place] [address] [facility] [id number] [address] [place] [id number] Jul, [facility] [place] [address] [facility] [id number] [address] [place] [address] May, Bipolar disorder, unspecifie d 296.80 ; 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.00 and Posttraumatic stress disorder 309.81 [facility] [place] [address] [facility] [id number] [address] [place] [phone] May, [facility] [place] [address] [facility] [id number] [address] [place] [phone] May, [facility] [place] [address] [facility] [id number] [address] [place] [phone] May, [facility] [place] [address] [facility] [id number] [address] [place] [id number] Apr, [facility] [address] [id number] [address] [place] [address], [place] [address] Apr, [facility] [address] [id number] [address] [place] [address], [place] [address] Apr, [facility] [address] [id number] [address] [place] [address], [place] [address] March, [facility] [address] [id number] [address] [place] [address], [place] [address] March, [facility] [address] [id number] [address] [place] [address], [place] [address] March, [facility] [address] [id number] [address] [place] [address], [place] [address] Feb, [facility] [address] [id number] [address] [place] [address], [place] [address] Feb, [facility] [address] [id number] [address] [place] [address], [place] [address] Jan, [facility] [address] [id number] [address] [place] [address], [place] [address] Jan, [facility] [address] [id number] [address] [place] [address], [place] [address] Jan, [facility] [address] [id number] [address] [place] [address], [place] [address] Jan, [facility] [address] [id number] [address] [place] [address], [place] [address] Jan, [facility] [address] [id number] [address] [place] [address], [place] [address] Jan, [facility] [address] [id number] [address] [place] [address], [place] [address] Jan, [facility] [address] [id number] [address] [place] [address], [place] [address] Jan, [facility] [address] [id number] [address] [place] [address], [place] [address] Jan, 2014 [facility] [address] [id number] [address] [place] [address], [place] [address] Jan, 2014 [facility] [address] [id number] [address] [place] [address], [place] [address] Dec, 2014 [facility] [address] [id number] [address] [place] [address], [place] [address] Dec, 2014 [facility] [address] [id number] [address] [place] [address], [place] [address] Dec, 2014 [facility] [address] [id number] [address] [place] [address], [place] [address] Dec, 2014 [facility] [address] [id number] [address] [place] [address], [place] [address] Oct, [facility] [address] [id number] [address] [place] [address], [place] [address] Oct, [facility] [address] [id number] [address] [place] [address], [place] [address] Oct, [facility] [address] [id number] [address] [place] [address], [place] [address] Oct, [facility] [address] [id number] [address] [place] [address], [place] [address] Oct, [facility] [address] [id number] [address] [place] [address], [place] [address] Oct, [facility] [address] [id number] [address] [place] [address], [place] [address] Oct, [facility] [address] [id number] [address] [place] [address], [place] [address] Sep, [facility] [address] [id number] [address] [place] [address], [place] [address] Sep, [facility] [address] [id number] [address] [place] [address], [place] [address] Sep, [facility] [address] [id number] [address] [place] [address], [place] [address] Sep, [facility] [address] [id number] [address] [place] [address], [place] [address] Sep, [facility] [address] [id number] [address] [place] [address], [place] [address] Sep, [facility] [address] [id number] [address] [place] [address], [place] [address] Sep, [facility] [address] [id number] [address] [place] [address], [place] [address] Sep, [facility] [address] [id number] [address] [place] [address], [place] [address] Aug, [facility] [address] [id number] [address] [place] [address], [place] [address] Aug, [facility] [address] [id number] [address] [place] [address], [place] [address] Aug, [facility] [address] [id number] [address] [place] [address], [place] [address] Aug, [facility] [address] [id number] [address] [place] [address], [place] [address] Jul, [facility] [address] [id number] [address] [place] [address], [place] [address] Jul, [facility] [address] [id number] [address] [place] [address], [place] [address] Jul, [facility] [address] [id number] [address] [place] [address], [place] [address] Jul, [facility] [address] [id number] [address] [place] [address], [place] [address] Jun, [facility] [address] [id number] [address] [place] [address], [place] [address] Jun, [facility] [address] [id number] [facility] [place] [address] Jun, [facility] [address] [id number] [address] [place] [address], [place] [address] Jun, [facility] [address] [id number] [address] [place] [address], [place] [address] May, [facility] [address] [id number] [address] [place] [address], [place] [address] May, [facility] [address] [id number] [address] [place] [address], [place] [address] May, [facility] [address] [id number] [address] [place] [address], [place] [address] May, [facility] [address] [id number] [address] [place] [address], [place] [address] Apr, [facility] [address] [id number] [address] [place] [address], [place] [address] Apr, [facility] [address] [id number] [address] [place] [address], [place] [address] Apr, [facility] [address] [id number] [address] [place] [address], [place] [address] Apr, [facility] [address] [id number] [address] [place] [address], [place] [address] Apr, [facility] [address] [id number] [address] [place] [address], [place] [address] Apr, [facility] [address] [id number] [address] [place] [address], [place] [address] Apr, [facility] [address] [id number] [address] [place] [address], [place] [address] Apr, [facility] [address] [id number] [address] [place] [address], [place] [address] Apr, [facility] [address] [id number] [address] [place] [address], [place] [address] Apr, [facility] [address] [id number] [address] [place] [address], [place] [address] Apr, [facility] [address] [id number] [address] [place] [address], [place] [address] Apr, [facility] [address] [id number] [address] [place] [address], [place] [address] Apr, [facility] [address] [id number] [address] [place] [address], [place] [address] March, [facility] [address] [id number] [address] [place] [address], [place] [address] March, [facility] [address] [id number] [address] [place] [address], [place] [address] March, [facility] [address] [id number] [address] [place] [address], [place] [address] March, [facility] [address] [id number] [address] [place] [address], [place] [address] Jan, [facility] [address] [id number] [address] [place] [address], [place] [address] Jan, [facility] [address] [id number] [address] [place] [address], [place] [address] Jan, [facility] [address] [id number] [address] [place] [address], [place] [address] Jan, [facility] [address] [id number] [address] [place] [address], [place] [address] Jan, [facility] [address] [id number] [address] [place] [address], [place] [address] Jan, [facility] [address] [id number] [address] [place] [address], [place] [address] Dec, [facility] [address] [id number] [address] [place] [address], [place] [address] Dec, [facility] [address] [id number] [address] [place] [address], [place] [address] Dec, [facility] [address] [id number] [address] [place] [address], [place] [address] Dec, [facility] [address] [id number] [address] [place] [address], [place] [address] Nov, [facility] [address] [id number] [address] [place] [address], [place] [address] Nov, [facility] [address] [id number] [address] [place] [address], [place] [address] Nov, [facility] [address] [id number] [address] [place] [address], [place] [address] Nov, [facility] [address] [id number] [address] [place] [address], [place] [address] Oct, [facility] [address] [id number] [address] [place] [address], [place] [address] Oct, [facility] [address] [id number] [address] [place] [address], [place] [address] Oct, [facility] [address] [id number] [address] [place] [address], [place] [address] Oct, [facility] [address] [id number] [address] [place] [address], [place] [address] Oct, [facility] [address] [id number] [address] [place] [address], [place] [address] Oct, [facility] [address] [id number] [address] [place] [address], [place] [address] Oct, [facility] [address] [id number] [address] [place] [address], [place] [address] Oct, [facility] [address] [id number] [address] [place] [address], [place] [address] Sep, [facility] [address] [id number] [address] [place] [address], [place] [address] Sep, [facility] [address] [id number] [address] [place] [address], [place] [address] 27 Jul, 2013 [facility] [address] [id number] [address] [place] [address], [place] [address] 12 Jul, 2013 [facility] [address] [id number] [address] [place] [address], [place] [address] 09 Jul, 2013 [facility] [address] [id number] [address] [place] [address], [place] [address] 07 Jul, 2013 [facility] [address] [id number] [address] [place] [address], [place] [address] Jun, [facility] [address] [id number] [address] [place] [address], [place] [address] Jun, [facility] [address] [id number] [address] [place] [address], [place] [address] May, [facility] [address] [id number] [address] [place] [address], [place] [address] Apr, [facility] [address] [id number] [address] [place] [address], [place] [address] Apr, [facility] [address] [id number] [address] [place] [address], [place] [address] Apr, [facility] [address] [id number] [address] [place] [address], [place] [address] March, [facility] [address] [id number] [address] [place] [address], [place] [address] March, [facility] [address] [id number] [address] [place] [address], [place] [address] Feb, [facility] [address] [id number] [address] [place] [address], [place] [address] Jan, [facility] [address] [id number] [address] [place] [address], [place] [address] Jan, [facility] [address] [id number] [address] [place] [address], [place] [address] Dec, [facility] [address] [id number] [address] [place] [address], [place] [address] Dec, [facility] [address] [id number] [address] [place] [address], [place] [address] Nov, [facility] [address] [id number] [address] [place] [address], [place] [address] Nov, [facility] [address] [id number] [address] [place] [address], [place] [address] Nov, [facility] [address] [id number] [address] [place] [address], [place] [address] Oct, [facility] [address] [id number] [address] [place] [address], [place] [address] Oct, [facility] [address] [id number] [address] [place] [address], [place] [address] Oct, [facility] [address] [id number] [address] [place] [address], [place] [address] Oct, [facility] [address] [id number] [address] [place] [address], [place] [address] Sep, [facility] [address] [id number] [address] [place] [address], [place] [address] Sep, [facility] [address] [id number] [address] [place] [address], [place] [address] Sep, [facility] [address] [id number] [address] [place] [address], [place] [address] Sep, [facility] [address] [id number] [address] [place] [address], [place] [address] Sep, [facility] [address] [id number] [address] [place] [address], [place] [address] Sep, [facility] [address] [id number] [address] [place] [address], [place] [address] Aug, [facility] [address] [id number] [address] [place] [address], [place] [address] 26 Jul, 2012 [facility] [address] [id number] [address] [place] [address], [place] [address] 19 Jul, 2012 [facility] [address] [id number] [address] [place] [address], [place] [address] 18 Jul, 2012 [facility] [address] [id number] [address] [place] [address], [place] [address] 14 Jul, 2012 [facility] [address] [id number] [address] [place] [address], [place] [address] Jun, [facility] [address] [id number] [address] [place] [address], [place] [address] Jun, [facility] [address] [id number] [address] [place] [address], [place] [address] Jun, [facility] [address] [id number] [address] [place] [address], [place] [address] Jun, [facility] [address] [id number] [address] [place] [address], [place] [address] May, [facility] [address] [id number] [address] [place] [address], [place] [address] Apr, [facility] [address] [id number] [address] [place] [address], [place] [address] March, [facility] [address] [id number] [address] [place] [address], [place] [address] March, [facility] [address] [id number] [address] [place] [address], [place] [address] March, [facility] [address] [id number] [address] [place] [address], [place] [address] Feb, [facility] [address] [id number] [address] [place] [address], [place] [address] Feb, [facility] [address] [id number] [address] [place] [address], [place] [address] Jan, [facility] [address] [id number] [address] [place] [address], [place] [address] Jan, [facility] [address] [id number] [address] [place] [address], [place] [address] Jan, [facility] [address] [id number] [address] [place] [address], [place] [address] Dec, [facility] [address] [id number] [address] [place] [address], [place] [address] Dec, [facility] [address] [id number] [address] [place] [address], [place] [address] Nov, [facility] [address] [id number] [address] [place] [address], [place] [address] Nov, [facility] [address] [id number] [address] [place] [address], [place] [address] Nov, [facility] [address] [id number] [address] [place] [address], [place] [address] Nov, [facility] [address] [id number] [address] [place] [address], [place] [address] Nov, [facility] [address] [id number] [address] [place] [address], [place] [address] Oct, [facility] [address] [id number] [address] [place] [address], [place] [address] Oct, [facility] [address] [id number] [address] [place] [address], [place] [address] Oct, [facility] [address] [id number] [address] [place] [address], [place] [address] Oct, [facility] [address] [id number] [address] [place] [address], [place] [address] Sep, [facility] [address] [id number] [address] [place] [address], [place] [address] Sep, [facility] [address] [id number] [address] [place] [address] Sep, [facility] [place] [address] [facility] [id number] [address] [place] [address] Aug, [facility] [place] [address] [facility] [id number] [address] [place] [address] Oct, [facility] [place] [address] [facility] [id number] [address] [place] [address] Oct, [facility] [place] [address] [facility] [id number] [address] [place] [address] Oct, [facility] [place] [address] [facility] [id number] [address] [place] [address] Oct, IMMUNIZATIONS No Known Immunizations SOCIAL HISTORY Never Assessed REASON FOR VISIT [facility] [place] VITAL SIGNS MEDICATIONS Unknown Medications RESULTS No Results PROCEDURES No Known procedures INSTRUCTIONS MEDICATIONS ADMINISTERED No Known Medications MEDICAL (GENERAL) HISTORY Type Description Date Medical History Guardian requests that we do not explain any treatment to patient! Surgical History No Surgical history information
--- OUTSIDE RECORDS SUMMARY | 2020-04-25 14:57 | XMS REPORT ---
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 Name Role Phone Migration, Doctor Unavailable Unavailable PROBLEMS Type Condition ICD9-CM Code [id number] Code Onset Dates Condition S tatus SNOMED Code Problem Encounter for long-term (current) use of other medications V58.69 Active 826669407 Problem Posttraumatic stress disorder F43.10 Active 69950584 Problem Bipolar disorder, unspecified F31.9 Active 64499172 Problem 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 Active 12648570 Problem Posttraumatic stress disorder 309.81 Active 06145296 Problem Bipolar disorder, unspecified 296.80 Active 54144214 Problem Attention deficit hyperactivity disorder (ADHD), combi dylon type F90.2 Active [id number] ALLERGIES No Information ENCOUNTERS Encounter Location Date Diagnosis [place] [address] [address] [facility] [id number] [address] [place] [address] Jun, [place] [address] [address] [place] [id number] [address] [place] [address] March, Bipolar disorder, unspecifie d F31.9 ; Attention deficit hyperactivity disorder (ADHD), combined type F90.2 ; Posttraumatic stress disorder F43.10 and 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.899 [facility] [id number] [place] [address] March, Dental examination Z01.20 and Caries K02 .9 [place] [address] [address] [facility] [id number] [address] [place] [address] Feb, Bipolar disorder, unspecifie d F31.9 [place] [address] [address] [facility] [id number] [address] [place] [address] Jan, 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 requiring routine preventive dental care K08.9 ; Dental examination Z01.20 and Caries K02.9 [place] [address] [address] [facility] [id number] [address] [place] [address] Jan, Bipolar disorder, unspecifie d F31.9 [facility] [address] [facility] [id number] [address] [place] [address] Dec, Bipolar disorder, unspecifie d F31.9 ; Attention deficit hyperactivity disorder (ADHD), combined type F90.2 and Posttraumatic stress disorder F43.10 [facility] [address] [facility] [id number] [address] [place] [address] Oct, Sore throat J02.9 [facility] [address] [facility] [id number] [address] [place] [address] Oct, [facility] [address] [facility] [id number] [address] [place] [address] Oct, Bipolar disorder, unspecifie d F31.9 [facility] [address] [facility] [id number] [address] [place] [address] [id number] Sep, 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 requiring routine preventive dental care K08.9 [facility] [address] [facility] [id number] [address] [place] [address] Sep, Bipolar disorder, unspecifie d F31.9 ; Attention deficit hyperactivity disorder (ADHD), combined type F90.2 and Posttraumatic stress disorder F43.10 [facility] [address] [facility] [id number] [address] [place] [address] Aug, Lymphadenopathy of left cerv ical region R59.0 [facility] [address] [facility] [id number] [address] [place] [address] Aug, Encounter for immunization Z 23 [facility] [address] [place] [id number] [place] [address] Aug, 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 nubia briceno Z79.899 [place] [address] [address] [place] [id number] [address] [place] [address] Jul, Bipolar disorder, unspecifie d F31.9 [facility] [address] [facility] [id number] [address] [place] [address] Jun, Bipolar disorder, unspecifie d F31.9 [facility] [address] [facility] [id number] [address] [place] [address] Jun, [facility] [address] [facility] [id number] [address] [place] [address] Jun, Bipolar disorder, unspecifie d F31.9 ; Attention deficit hyperactivity disorder (ADHD), combined type F90.2 ; Posttraumatic stress disorder F43.10 and 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.899 [facility] [id number] [place] [phone] Jun, Dental examination Z01.20 [facility] [address] [facility] [id number] [address] [place] [address] May, [facility] [address] [facility] [id number] [address] [place] [address] Apr, Bipolar disorder, unspecifie d F31.9 [facility] [address] [facility] [id number] [address] [place] [address] March, Bipolar disorder, unspecifie d F31.9 ; Attention deficit hyperactivity disorder (ADHD), combined type F90.2 and Posttraumatic stress disorder F43.10 [facility] [address] [place] [id number] [address] [place] [address] Feb, [facility] [address] [facility] [id number] [address] [place] [address] Feb, Insect bite (nonvenomous), l eft knee, initial encounter S80.262A and Bitten or stung by nonvenomous insect and other nonvenomous arthropods, initial encounter W57.XXXA [facility] [address] [facility] [id number] [address] [place] [address] Feb, Bipolar disorder, unspecifie d F31.9 [facility] [address] [id number] [address] [place] [address] [id number] Feb, Dental examination Z01.20 [facility] [address] [facility] [id number] [address] [place], [place] [phone] Feb, Bipolar disorder, unspecifie d F31.9 ; Attention deficit hyperactivity disorder (ADHD), combined type F90.2 and Posttraumatic stress disorder F43.10 [facility] [address] [id number] [place] [address] [id number] Feb, Dental examination Z01.20 [facility] [address] [facility] [id number] [address] [place] [address] Jan, Bipolar disorder, unspecifie d F31.9 [facility] [address] [facility] [id number] [place] [phone] Jan, Attention deficit hyperactiv ity disorder (ADHD), combined type F90.2 [facility] [address] [facility] [id number] [address] [place] [address] Dec, Posttraumatic stress disorde r F43.10 [facility] [address] [facility] [id number] [address] [place] [address] Dec, Posttraumatic stress disorde r F43.10 [facility] [address] [id number] [address] [place] [address] [id number] Nov, Dental examination Z01.20 [facility] [id number] [place] [address] [id number] Nov, Encounter for dental exam an d cleaning w/o abnormal findings Z01.20 [facility] [id number] [place] [id number] Nov, Dental examination Z01.20 [facility] [address] [facility] [id number] [address] [place], [place] [phone] Sep, Bipolar disorder, unspecifie d F31.9 ; Posttraumatic stress disorder F43.10 and Attention deficit hyperactivity disorder (ADHD), combined type F90.2 [facility] [address] [facility] [id number] [address] [place] [address] Aug, Posttraumatic stress disorde r F43.10 [facility] [address] [facility] [id number] [address] [place] [phone] 15 Jul, 2017 Other detention (current) dr ug therapy Z79.899 [facility] [address] [facility] [id number] [address] [place] [phone] 11 Jul, 2017 Bipolar disorder, unspecifie d F31.9 ; Attention deficit hyperactivity disorder (ADHD), combined type F90.2 and Posttraumatic stress disorder F43.10 [place] [address] [address] [facility] [id number] [address] [place] [address] Jun, Bipolar disorder, unspecifie d F31.9 ; Posttraumatic stress disorder F43.10 ; Attention deficit hyperactivity disorder (ADHD), combined type F90.2 and Other detention (current) drug therapy Z79.899 [place] [address] [address] [place] [id number] [address] [place] [address] March, Bipolar disorder, unspecifie d F31.9 ; Posttraumatic stress disorder F43.10 and Attention deficit hyperactivity disorder (ADHD), combined type F90.2 [place] [address] [place] [id number] [address] [place] [address] Dec, Bipolar disorder, unspecifie d F31.9 ; Posttraumatic stress disorder F43.10 and Attention deficit hyperactivity disorder (ADHD), combined type F90.2 [place] [address] [facility] [id number] [address] [place] [address] Dec, [facility] [address] [facility] [id number] [address] [place] [phone] Sep, [place] [address] [place] [id number] [address] [place] [address] Aug, Bipolar disorder, unspecifie d F31.9 ; Posttraumatic stress disorder F43.10 and Attention deficit hyperactivity disorder (ADHD), combined type F90.2 [place] [address] [id number] [address] [place] [address] Jun, [facility] [address] [id number] [address] [place] [address] March, [facility] [address] [id number] [address] [place] [address] Feb, Bipolar disorder, unspecifie d F31.9 ; Attention deficit hyperactivity disorder (ADHD), combined type F90.2 and Posttraumatic stress disorder F43.10 [facility] [address] [id number] [address] [place] [address] Feb, [facility] [address] [id number] [address] [place] [address] Feb, [facility] [address] [id number] [address] [place] [address] Feb, [facility] [address] [id number] [address] [place] [address] Jan, [facility] [address] [id number] [address] [place] [address] [id number] Dec, Dental examination Z01.20 [facility] [address] [id number] [address] [place] [address] Sep, [facility] [address] [id number] [address] [place] [address] Sep, Attention deficit hyperactiv ity disorder (ADHD), combined type F90.2 ; Posttraumatic stress disorder F43.10 and Bipolar disorder, unspecified F31.9 [facility] [address] [id number] [address] [place] [address] Aug, [facility] [address] [id number] [address] [place] [address] Aug, [facility] [address] [id number] [address] [place] [phone] Jul, [facility] [address] [id number] [address] [place] [address] May, Bipolar disorder, unspecifie d 296.80 ; 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.00 and Posttraumatic stress disorder 309.81 [facility] [address] [id number] [address] [place] [address] May, [facility] [address] [id number] [address] [place] [address] May, [facility] [address] [id number] [address] [place] [address] May, [facility] [address] [id number] [address] [place] [address] Apr, [facility] [address] [id number] [address] [place] [address] Apr, [facility] [address] [id number] [address] [place] [phone] Apr, [facility] [address] [id number] [address] [place] [phone] March, [facility] [address] [id number] [address] [place] [address] March, [facility] [address] [facility] [id number] [address] [place] [address] March, [facility] [address] [id number] [address] [place] [address] Feb, [facility] [address] [id number] [address] [place] [address] Feb, [facility] [address] [id number] [address] [place] [address] Jan, [facility] [address] [id number] [address] [place] [address] Jan, [facility] [address] [id number] [address] [place] [address] Jan, [facility] [address] [id number] [address] [place] [address], [place] [address] Jan, 2014 [facility] [address] [id number] [address] [place] [address], [place] [address] Jan, 2014 [facility] [address] [id number] [address] [place] [address], [place] [address] Jan, 2014 [facility] [address] [id number] [address] [place] [address], [place] [address] Jan, 2014 [facility] [address] [id number] [address] [place] [address], [place] [address] Jan, 2014 [facility] [address] [id number] [address] [place] [address], [place] [address] Jan, 2014 [facility] [address] [id number] [address] [place] [address], [place] [address] Jan, 2014 [facility] [address] [id number] [address] [place] [address], [place] [address] Dec, 2014 [facility] [address] [id number] [address] [place] [address], [place] [address] Dec, 2014 [facility] [address] [id number] [address] [place] [address], [place] [address] Dec, 2014 [facility] [address] [id number] [address] [place] [address], [place] [address] Dec, 2014 [facility] [address] [id number] [address] [place] [address], [place] [address] Oct, [facility] [address] [id number] [address] [place] [address], [place] [address] Oct, [facility] [address] [id number] [address] [place] [address], [place] [address] Oct, [facility] [address] [id number] [address] [place] [address], [place] [address] Oct, [facility] [address] [id number] [address] [place] [address], [place] [address] Oct, [facility] [address] [id number] [address] [place] [address], [place] [address] Oct, [facility] [address] [id number] [address] [place] [address], [place] [address] Oct, [facility] [address] [id number] [address] [place] [address], [place] [address] Sep, [facility] [address] [id number] [address] [place] [address], [place] [address] Sep, [facility] [address] [id number] [address] [place] [address], [place] [address] Sep, [facility] [address] [id number] [address] [place] [address], [place] [address] Sep, [facility] [address] [id number] [address] [place] [address], [place] [address] Sep, [facility] [address] [id number] [address] [place] [address], [place] [address] Sep, [facility] [address] [id number] [address] [place] [address], [place] [address] Sep, [facility] [address] [id number] [address] [place] [address], [place] [address] Sep, [facility] [address] [id number] [address] [place] [address], [place] [address] Aug, [facility] [address] [id number] [address] [place] [address], [place] [address] Aug, [facility] [address] [id number] [address] [place] [address], [place] [address] Aug, [facility] [address] [id number] [address] [place] [address], [place] [address] Aug, [facility] [address] [id number] [address] [place] [address], [place] [address] Jul, [facility] [address] [id number] [facility] [place] [address] Jul, [facility] [address] [id number] [facility] [place] [address] Jul, [facility] [address] [id number] [address] [place] [address], [place] [address] Jul, [facility] [address] [id number] [address] [place] [address], [place] [address] Jun, [facility] [address] [id number] [address] [place] [address], [place] [address] Jun, [facility] [address] [id number] [address] [place] [address], [place] [address] Jun, [facility] [address] [id number] [address] [place] [address], [place] [address] Jun, [facility] [address] [id number] [address] [place] [address], [place] [address] May, [facility] [address] [id number] [address] [place] [address], [place] [address] May, [facility] [address] [id number] [address] [place] [address], [place] [address] May, [facility] [address] [id number] [address] [place] [address], [place] [address] May, [facility] [address] [id number] [address] [place] [address], [place] [address] Apr, [facility] [address] [id number] [address] [place] [address], [place] [address] Apr, [facility] [address] [id number] [address] [place] [address], [place] [address] Apr, [facility] [address] [id number] [address] [place] [address], [place] [address] Apr, [facility] [address] [id number] [address] [place] [address], [place] [address] Apr, [facility] [address] [id number] [facility] [place] [address] Apr, [facility] [address] [id number] [address] [place] [address], [place] [address] Apr, [facility] [address] [id number] [address] [place] [address], [place] [address] Apr, [facility] [address] [id number] [address] [place] [address], [place] [address] Apr, [facility] [address] [id number] [address] [place] [address], [place] [address] Apr, [facility] [address] [id number] [address] [place] [address], [place] [address] Apr, [facility] [address] [id number] [address] [place] [address], [place] [address] Apr, [facility] [address] [id number] [address] [place] [address], [place] [address] Apr, [facility] [address] [id number] [address] [place] [address], [place] [address] March, [facility] [address] [id number] [address] [place] [address], [place] [address] March, [facility] [address] [id number] [address] [place] [address], [place] [address] March, [facility] [address] [id number] [address] [place] [address], [place] [address] March, [facility] [address] [id number] [address] [place] [address], [place] [address] Jan, [facility] [address] [id number] [address] [place] [address], [place] [address] Jan, [facility] [address] [id number] [address] [place] [address], [place] [address] Jan, [facility] [address] [id number] [address] [place] [address], [place] [address] Jan, [facility] [address] [id number] [address] [place] [address], [place] [address] Jan, [facility] [address] [id number] [address] [place] [address], [place] [address] Jan, [facility] [address] [id number] [address] [place] [address], [place] [address] Dec, [facility] [address] [id number] [address] [place] [address], [place] [address] Dec, [facility] [address] [id number] [address] [place] [address], [place] [address] Dec, [facility] [address] [id number] [address] [place] [address], [place] [address] Dec, [facility] [address] [id number] [address] [place] [address], [place] [address] Nov, [facility] [address] [id number] [address] [place] [address], [place] [address] Nov, [facility] [address] [id number] [address] [place] [address], [place] [address] Nov, [facility] [address] [id number] [address] [place] [address], [place] [address] Nov, [facility] [address] [id number] [address] [place] [address], [place] [address] Oct, [facility] [address] [id number] [address] [place] [address], [place] [address] Oct, [facility] [address] [id number] [address] [place] [address], [place] [address] Oct, [facility] [address] [id number] [address] [place] [address], [place] [address] Oct, [facility] [address] [id number] [address] [place] [address], [place] [address] Oct, [facility] [address] [id number] [address] [place] [address], [place] [address] Oct, [facility] [address] [id number] [address] [place] [address], [place] [address] Oct, [facility] [address] [id number] [address] [place] [address], [place] [address] Oct, [facility] [address] [id number] [address] [place] [address], [place] [address] Sep, [facility] [address] [id number] [address] [place] [address], [place] [address] Sep, [facility] [address] [id number] [address] [place] [address], [place] [address] Jul, [facility] [address] [id number] [address] [place] [address], [place] [address] Jul, [facility] [address] [id number] [address] [place] [address], [place] [address] Jul, [facility] [address] [id number] [address] [place] [address], [place] [address] Jul, [facility] [address] [id number] [address] [place] [address], [place] [address] Jun, [facility] [address] [id number] [address] [place] [address], [place] [address] Jun, [facility] [address] [id number] [address] [place] [address], [place] [address] May, [facility] [address] [id number] [address] [place] [address], [place] [address] Apr, [facility] [address] [id number] [address] [place] [address], [place] [address] Apr, [facility] [address] [id number] [address] [place] [address], [place] [address] Apr, [facility] [address] [id number] [address] [place] [address], [place] [address] March, [facility] [address] [id number] [address] [place] [address], [place] [address] March, [facility] [address] [id number] [address] [place] [address], [place] [address] Feb, [facility] [address] [id number] [address] [place] [address], [place] [address] Jan, [facility] [address] [id number] [address] [place] [address], [place] [address] Jan, [facility] [address] [id number] [address] [place] [address], [place] [address] Dec, [facility] [address] [id number] [address] [place] [address], [place] [address] Dec, [facility] [address] [id number] [address] [place] [address], [place] [address] Nov, [facility] [address] [id number] [address] [place] [address], [place] [address] Nov, [facility] [address] [id number] [address] [place] [address], [place] [address] Nov, [facility] [address] [id number] [address] [place] [address], [place] [address] Oct, [facility] [address] [id number] [address] [place] [address], [place] [address] Oct, [facility] [address] [id number] [address] [place] [address], [place] [address] Oct, [facility] [address] [id number] [address] [place] [address], [place] [address] Oct, [facility] [address] [id number] [address] [place] [address], [place] [address] Sep, [facility] [address] [id number] [address] [place] [address], [place] [address] Sep, [facility] [address] [id number] [address] [place] [address], [place] [address] Sep, [facility] [address] [id number] [address] [place] [address], [place] [address] Sep, [facility] [address] [id number] [address] [place] [address], [place] [address] 15 Sep, 2012 [facility] [address] [id number] [address] [place] [address], [place] [address] 15 Sep, 2012 [facility] [address] [id number] [address] [place] [address], [place] [address] Aug, [facility] [address] [id number] [address] [place] [address], [place] [address] 26 Jul, 2012 [facility] [address] [id number] [address] [place] [address], [place] [address] 19 Jul, 2012 [facility] [address] [id number] [address] [place] [address], [place] [address] 18 Jul, 2012 [facility] [address] [id number] [address] [place] [address], [place] [address] 14 Jul, 2012 [facility] [address] [id number] [address] [place] [address], [place] [address] Jun, [facility] [address] [id number] [address] [place] [address], [place] [address] Jun, [facility] [address] [id number] [address] [place] [address], [place] [address] Jun, [facility] [address] [id number] [address] [place] [address], [place] [address] Jun, [facility] [address] [id number] [address] [place] [address], [place] [address] May, [facility] [address] [id number] [address] [place] [address], [place] [address] Apr, [facility] [address] [id number] [address] [place] [address], [place] [address] March, [facility] [address] [id number] [address] [place] [address], [place] [address] March, [facility] [address] [id number] [address] [place] [address], [place] [address] March, [facility] [address] [id number] [address] [place] [address], [place] [address] Feb, [facility] [address] [id number] [address] [place] [address], [place] [address] Feb, [facility] [address] [id number] [address] [place] [address], [place] [address] Jan, [facility] [address] [id number] [address] [place] [address], [place] [address] Jan, [facility] [address] [id number] [address] [place] [address], [place] [address] Jan, [facility] [address] [id number] [address] [place] [address], [place] [address] Dec, [facility] [address] [id number] [address] [place] [address], [place] [address] Dec, [facility] [address] [id number] [address] [place] [address], [place] [address] Nov, [facility] [address] [id number] [address] [place] [address], [place] [address] Nov, [facility] [address] [id number] [address] [place] [address], [place] [address] Nov, [facility] [address] [id number] [address] [place] [address], [place] [address] Nov, [facility] [address] [id number] [address] [place] [address], [place] [address] Nov, [facility] [address] [id number] [address] [place] [address], [place] [address] Oct, [facility] [address] [id number] [address] [place] [address] Oct, [facility] [address] [id number] [address] [place] [address] Oct, [facility] [address] [id number] [address] [place] [address] Oct, [facility] [address] [id number] [address] [place] [address] Sep, [facility] [address] [id number] [address] [place] [address] Sep, [facility] [address] [id number] [address] [place] [address] Sep, [facility] [address] [id number] [address] [place] [address] Aug, [facility] [address] [id number] [address] [place] [address] Oct, [facility] [address] [id number] [address] [place] [address] Oct, [facility] [address] [id number] [address] [place] [address] Oct, [facility] [address] [id number] [address] [place] [address] Oct, IMMUNIZATIONS No Known Immunizations SOCIAL HISTORY Never Assessed REASON FOR VISIT EMR-[facility] PLAN OF CARE VITAL SIGNS MEDICATIONS Unknown Medications RESULTS No Results PROCEDURES No Known procedures INSTRUCTIONS MEDICATIONS ADMINISTERED No Known Medications MEDICAL (GENERAL) HISTORY Type Description Date Medical History Guardian requests that we do not explain any treatment to patient! Surgical History No Surgical history information
--- OUTSIDE RECORDS SUMMARY | 2020-04-25 14:57 | XMS REPORT ---
Author Author Ronna Blackmon Doctor Organization [facility] Address Unknown Phone Unavailable Care Team Providers Care Stone Belt Sander Name Role Phone Migration, Doctor Unavailable Unavailable PROBLEMS Type Condition ICD9-CM Code PTA12-EV Code Onset Dates Condition S tatus SNOMED Code Problem Encounter for long-term (current) use of other medications V58.69 Active 038835879 Problem Posttraumatic stress disorder F43.10 Active 51797320 Problem Bipolar disorder, unspecified F31.9 Active 35938528 Problem 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 Active 08875700 Problem Posttraumatic stress disorder 309.81 Active 17597039 Problem Bipolar disorder, unspecified 296.80 Active 07138982 Problem Attention deficit hyperactivity disorder (ADHD), combi dylon type F90.2 Active [id number] ALLERGIES No Information ENCOUNTERS Encounter Location Date Diagnosis [facility] [address] [address] March, [facility] [address] [id number] 15 Feb, 2019 Bipolar disorder, unspecifie d F31.9 [facility] [address] [id number] [address] [place] [phone] 20 Jan, 2019 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 requiring routine preventive dental care K08.9 ; Dental examination Z01.20 and Caries K02.9 [facility] [address] [id number] [address] [place] [id number] 14 Jan, 2019 Bipolar disorder, unspecifie d F31.9 [facility] [address] [id number] [address] [place] [phone] 20 Dec, 2018 Bipolar disorder, unspecifie d F31.9 ; Attention deficit hyperactivity disorder (ADHD), combined type F90.2 and Posttraumatic stress disorder F43.10 [facility] [address] [facility] [id number] [address] [place] [phone] Oct, Sore throat J02.9 [facility] [address] [facility] [id number] [address] [place] [phone] Oct, [facility] [address] [facility] [id number] [address] [place] [phone] Oct, Bipolar disorder, unspecifie d F31.9 [facility] [address] [facility] [id number] [address] [place] [address] [phone] Sep, 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 requiring routine preventive dental care K08.9 [facility] [address] [facility] [id number] [address] [place] [phone] Sep, Bipolar disorder, unspecifie d F31.9 ; Attention deficit hyperactivity disorder (ADHD), combined type F90.2 and Posttraumatic stress disorder F43.10 [facility] [address] [facility] [id number] [address] [place] [phone] Aug, Lymphadenopathy of left cerv ical region R59.0 [facility] [address] [id number] [address] [place] [phone] Aug, Encounter for immunization Z 23 [facility] [address] [id number] [address] [place] [phone] Aug, 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.899 [facility] [address] [id number] [address] [place] [phone] Jul, Bipolar disorder, unspecifie d F31.9 [facility] [address] [facility] [id number] [address] [place] [phone] Jun, Bipolar disorder, unspecifie d F31.9 [facility] [address] [facility] [id number] [address] [place] [phone] Jun, [facility] [address] [id number] [address] [place] [phone] Jun, Bipolar disorder, unspecifie d F31.9 ; Attention deficit hyperactivity disorder (ADHD), combined type F90.2 ; Posttraumatic stress disorder F43.10 and Other detention (current) drug therapy Z79.899 [facility] [address] [facility] [id number] [address] [place] [address] [phone] Jun, Dental examination Z01.20 [facility] [address] [facility] [id number] [address] [place] [phone] May, [facility] [address] [facility] [id number] [address] [place] [phone] Apr, Bipolar disorder, unspecifie d F31.9 [facility] [address] [facility] [id number] [place] [phone] March, Bipolar disorder, unspecifie d F31.9 ; Attention deficit hyperactivity disorder (ADHD), combined type F90.2 and Posttraumatic stress disorder F43.10 [facility] [address] [id number] [address] [place] [phone] Feb, [facility] [address] [facility] [id number] [address] [place] [phone] Feb, Insect bite (nonvenomous), l eft knee, initial encounter S80.262A and Bitten or stung by nonvenomous insect and other nonvenomous arthropods, initial encounter W57.XXXA [facility] [address] [id number] [address] [place] [phone] Feb, Bipolar disorder, unspecifie d F31.9 [facility] [address] [id number] [address] [place] [address] [phone] Feb, Dental examination Z01.20 [facility] [address] [facility] [id number] [address] [place] [phone] Feb, Bipolar disorder, unspecifie d F31.9 ; Attention deficit hyperactivity disorder (ADHD), combined type F90.2 and Posttraumatic stress disorder F43.10 [facility] [address] [facility] [id number] [address] [place] [address] [phone] Feb, Dental examination Z01.20 [facility] [address] [id number] [address] [place] [phone] Jan, Bipolar disorder, unspecifie d F31.9 [facility] [address] [id number] [address] [place] [phone] Jan, Attention deficit hyperactiv ity disorder (ADHD), combined type F90.2 [facility] [address] [facility] [id number] [address] [place] [phone] Dec, Posttraumatic stress disorde r F43.10 [facility] [address] [id number] [address] [place] [phone] Dec, Posttraumatic stress disorde r F43.10 [facility] [address] [id number] [address] [place] [address] [phone] Nov, Dental examination Z01.20 [facility] [address] [id number] [place] [address] [id number] Nov, Dental examination Z01.20 [facility] [address] [id number] [place] [address] [id number] Nov, Encounter for dental exam an d cleaning w/o abnormal findings Z01.20 [facility] [address] [facility] [id number] [address] [place] [phone] Sep, Bipolar disorder, unspecifie d F31.9 ; Posttraumatic stress disorder F43.10 and Attention deficit hyperactivity disorder (ADHD), combined type F90.2 [facility] [address] [id number] [address] [place] [phone] Aug, Posttraumatic stress disorde r F43.10 [facility] [address] [facility] [id number] [address] [place] [phone] 15 Jul, 2017 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.899 [facility] [address] [facility] [id number] [address] [place] [phone] 11 Jul, 2017 Bipolar disorder, unspecifie d F31.9 ; Attention deficit hyperactivity disorder (ADHD), combined type F90.2 and Posttraumatic stress disorder F43.10 [facility] [address] [id number] [address] [place] [phone] Jun, Bipolar disorder, unspecifie d F31.9 ; Posttraumatic stress disorder F43.10 ; Attention deficit hyperactivity disorder (ADHD), combined type F90.2 and 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 [facility] [address] [facility] [id number] [address] [place] [phone] March, Bipolar disorder, unspecifie d F31.9 ; Posttraumatic stress disorder F43.10 and Attention deficit hyperactivity disorder (ADHD), combined type F90.2 [facility] [address] [id number] [address] [place] [phone] Dec, Bipolar disorder, unspecifie d F31.9 ; Posttraumatic stress disorder F43.10 and Attention deficit hyperactivity disorder (ADHD), combined type F90.2 [facility] [address] [id number] [address] [place] [phone] Dec, [facility] [address] [facility] [id number] [address] [place] [phone] Sep, [facility] [address] [facility] [id number] [address] [place] [phone] Aug, Bipolar disorder, unspecifie d F31.9 ; Posttraumatic stress disorder F43.10 and Attention deficit hyperactivity disorder (ADHD), combined type F90.2 [facility] [address] [id number] [address] [place] [phone] Jun, [facility] [address] [id number] [address] [place] [phone] March, [facility] [address] [facility] [id number] [address] [place] [phone] Feb, Bipolar disorder, unspecifie d F31.9 ; Attention deficit hyperactivity disorder (ADHD), combined type F90.2 and Posttraumatic stress disorder F43.10 [facility] [address] [id number] [address] [place] [phone] Feb, [facility] [address] [facility] [id number] [address] [place] [phone] Feb, [facility] [address] [facility] [id number] [address] [place] [phone] Feb, [facility] [address] [facility] [id number] [address] [place] [phone] Jan, [facility] [address] [id number] [address] [place] [address] [phone] Dec, Dental examination Z01.20 [facility] [address] [facility] [id number] [address] [place] [phone] Sep, [facility] [address] [facility] [id number] [address] [place] [phone] Sep, Attention deficit hyperactiv ity disorder (ADHD), combined type F90.2 ; Posttraumatic stress disorder F43.10 and Bipolar disorder, unspecified F31.9 [facility] [address] [facility] [id number] [address] [place] [phone] Aug, [facility] [address] [facility] [id number] [address] [place] [phone] Aug, [facility] [address] [facility] [id number] [address] [place] [phone] Jul, [facility] [address] [facility] [id number] [address] [place] [phone] May, Bipolar disorder, unspecifie d 296.80 ; 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.00 and Posttraumatic stress disorder 309.81 [facility] [address] [facility] [id number] [address] [place] [phone] May, [facility] [address] [facility] [id number] [address] [place] [phone] May, [facility] [address] [id number] [address] [place] [address], [place] [address] May, [facility] [address] [id number] [address] [place] [address], [place] [address] Apr, [facility] [address] [id number] [address] [place] [address], [place] [address] Apr, [facility] [address] [id number] [address] [place] [address], [place] [address] Apr, [facility] [address] [id number] [address] [place] [address], [place] [address] March, [facility] [address] [id number] [address] [place] [address], [place] [address] March, [facility] [address] [id number] [address] [place] [address], [place] [address] March, [facility] [address] [id number] [address] [place] [address], [place] [address] Feb, [facility] [address] [id number] [address] [place] [address], [place] [address] Feb, [facility] [address] [id number] [address] [place] [address], [place] [address] Jan, [facility] [address] [id number] [address] [place] [address], [place] [address] 30 Jan, 2015 [facility] [address] [id number] [address] [place] [address], [place] [address] Jan, [facility] [address] [id number] [address] [place] [address], [place] [address] Jan, [facility] [address] [id number] [address] [place] [address], [place] [address] Jan, [facility] [address] [id number] [address] [place] [address], [place] [address] Jan, [facility] [address] [id number] [address] [place] [address], [place] [address] Jan, [facility] [address] [id number] [address] [place] [address], [place] [address] Jan, 2014 [facility] [address] [id number] [address] [place] [address], [place] [address] Jan, 2014 [facility] [address] [id number] [address] [place] [address], [place] [address] Jan, 2014 [facility] [address] [id number] [address] [place] [address], [place] [address] Dec, 2014 [facility] [address] [id number] [address] [place] [address], [place] [address] Dec, 2014 [facility] [address] [id number] [address] [place] [address], [place] [address] Dec, 2014 [facility] [address] [id number] [address] [place] [address], [place] [address] Dec, 2014 [facility] [address] [id number] [address] [place] [address], [place] [address] Oct, [facility] [address] [id number] [address] [place] [address], [place] [address] Oct, [facility] [address] [id number] [address] [place] [address], [place] [address] Oct, [facility] [address] [id number] [address] [place] [address], [place] [address] Oct, [facility] [address] [id number] [address] [place] [address], [place] [address] Oct, [facility] [address] [id number] [address] [place] [address], [place] [address] Oct, [facility] [address] [id number] [address] [place] [address], [place] [address] Oct, [facility] [address] [id number] [address] [place] [address], [place] [address] Sep, [facility] [address] [id number] [address] [place] [address], [place] [address] Sep, [facility] [address] [id number] [address] [place] [address], [place] [address] Sep, [facility] [address] [id number] [address] [place] [address], [place] [address] Sep, [facility] [address] [id number] [address] [place] [address], [place] [address] Sep, [facility] [address] [id number] [address] [place] [address], [place] [address] Sep, [facility] [address] [id number] [address] [place] [address], [place] [address] Sep, [facility] [address] [id number] [address] [place] [address], [place] [address] Sep, [facility] [address] [id number] [address] [place] [address], [place] [address] Aug, [facility] [address] [id number] [address] [place] [address], [place] [address] Aug, [facility] [address] [id number] [address] [place] [address], [place] [address] Aug, [facility] [address] [id number] [address] [place] [address], [place] [address] Aug, [facility] [address] [id number] [address] [place] [address], [place] [address] Jul, [facility] [address] [id number] [address] [place] [address], [place] [address] Jul, [facility] [address] [id number] [address] [place] [address], [place] [address] Jul, [facility] [address] [id number] [address] [place] [address], [place] [address] Jul, [facility] [address] [id number] [address] [place] [address], [place] [address] Jun, [facility] [address] [id number] [facility] [place] [address] Jun, [facility] [address] [id number] [facility] [place] [address] Jun, [facility] [address] [id number] [facility] [place] [address] Jun, [facility] [address] [id number] [facility] [place] [address] May, [facility] [address] [id number] [address] [place] [address], [place] [address] May, [facility] [address] [id number] [address] [place] [address], [place] [address] May, [facility] [address] [id number] [address] [place] [address], [place] [address] May, [facility] [address] [id number] [address] [place] [address], [place] [address] Apr, [facility] [address] [id number] [address] [place] [address], [place] [address] Apr, [facility] [address] [id number] [address] [place] [address], [place] [address] Apr, [facility] [address] [id number] [address] [place] [address], [place] [address] Apr, [facility] [address] [id number] [address] [place] [address], [place] [address] Apr, [facility] [address] [id number] [address] [place] [address], [place] [address] Apr, [facility] [address] [id number] [address] [place] [address], [place] [address] Apr, [facility] [address] [id number] [address] [place] [address], [place] [address] Apr, [facility] [address] [id number] [address] [place] [address], [place] [address] Apr, [facility] [address] [id number] [facility] [place] [address] Apr, [facility] [address] [id number] [address] [place] [address], [place] [address] Apr, [facility] [address] [id number] [address] [place] [address], [place] [address] Apr, [facility] [address] [id number] [address] [place] [address], [place] [address] Apr, [facility] [address] [id number] [address] [place] [address], [place] [address] March, [facility] [address] [id number] [address] [place] [address], [place] [address] March, [facility] [address] [id number] [address] [place] [address], [place] [address] March, [facility] [address] [id number] [address] [place] [address], [place] [address] March, [facility] [address] [id number] [address] [place] [address], [place] [address] Jan, [facility] [address] [id number] [address] [place] [address], [place] [address] Jan, [facility] [address] [id number] [address] [place] [address], [place] [address] Jan, [facility] [address] [id number] [address] [place] [address], [place] [address] Jan, [facility] [address] [id number] [address] [place] [address], [place] [address] Jan, [facility] [address] [id number] [address] [place] [address], [place] [address] Jan, [facility] [address] [id number] [address] [place] [address], [place] [address] Dec, [facility] [address] [id number] [address] [place] [address], [place] [address] Dec, [facility] [address] [id number] [address] [place] [address], [place] [address] Dec, [facility] [address] [id number] [address] [place] [address], [place] [address] Dec, [facility] [address] [id number] [address] [place] [address], [place] [address] Nov, [facility] [address] [id number] [address] [place] [address], [place] [address] Nov, [facility] [address] [id number] [address] [place] [address], [place] [address] Nov, [facility] [address] [id number] [address] [place] [address], [place] [address] Nov, [facility] [address] [id number] [address] [place] [address], [place] [address] Oct, [facility] [address] [id number] [address] [place] [address], [place] [address] Oct, [facility] [address] [id number] [address] [place] [address], [place] [address] Oct, [facility] [address] [id number] [address] [place] [address], [place] [address] Oct, [facility] [address] [id number] [address] [place] [address], [place] [address] Oct, [facility] [address] [id number] [address] [place] [address], [place] [address] Oct, [facility] [address] [id number] [address] [place] [address], [place] [address] Oct, [facility] [address] [id number] [address] [place] [address], [place] [address] Oct, [facility] [address] [id number] [address] [place] [address], [place] [address] Sep, [facility] [address] [id number] [address] [place] [address], [place] [address] Sep, [facility] [address] [id number] [address] [place] [address], [place] [address] Jul, [facility] [address] [id number] [address] [place] [address], [place] [address] Jul, [facility] [address] [id number] [address] [place] [address], [place] [address] Jul, [facility] [address] [id number] [address] [place] [address], [place] [address] Jul, [facility] [address] [id number] [address] [place] [address], [place] [address] Jun, [facility] [address] [id number] [address] [place] [address], [place] [address] Jun, [facility] [address] [id number] [address] [place] [address], [place] [address] May, [facility] [address] [id number] [address] [place] [address], [place] [address] Apr, [facility] [facility] [address] [id number] [address] [place] [address], [place] [address] Apr, [facility] [address] [id number] [address] [place] [address], [place] [address] Apr, [facility] [address] [id number] [address] [place] [address], [place] [address] March, [facility] [address] [id number] [address] [place] [address], [place] [address] March, [facility] [address] [id number] [address] [place] [address], [place] [address] Feb, [facility] [address] [id number] [address] [place] [address], [place] [address] Jan, [facility] [address] [id number] [address] [place] [address], [place] [address] 05 Jan, 2013 [facility] [address] [id number] [address] [place] [address], [place] [address] Dec, [facility] [address] [id number] [address] [place] [address], [place] [address] Dec, [facility] [address] [id number] [address] [place] [address], [place] [address] Nov, [facility] [address] [id number] [address] [place] [address], [place] [address] Nov, [facility] [address] [id number] [address] [place] [address], [place] [address] Nov, [facility] [address] [id number] [address] [place] [address], [place] [address] Oct, [facility] [address] [id number] [address] [place] [address], [place] [address] Oct, [facility] [address] [id number] [address] [place] [address], [place] [address] Oct, [facility] [address] [id number] [address] [place] [address], [place] [address] Oct, [facility] [address] [id number] [address] [place] [address], [place] [address] Sep, [facility] [address] [id number] [address] [place] [address], [place] [address] 29 Sep, 2012 [facility] [address] [id number] [address] [place] [address], [place] [address] Sep, [facility] [address] [id number] [address] [place] [address], [place] [address] Sep, [facility] [address] [id number] [address] [place] [address], [place] [address] 15 Sep, 2012 [facility] [address] [id number] [address] [place] [address], [place] [address] 15 Sep, 2012 [facility] [address] [id number] [address] [place] [address], [place] [address] Aug, [facility] [address] [id number] [address] [place] [address], [place] [address] 26 Jul, 2012 [facility] [address] [id number] [address] [place] [address], [place] [address] Jul, [facility] [address] [id number] [address] [place] [address], [place] [address] 18 Jul, 2012 [facility] [address] [id number] [address] [place] [address], [place] [address] 14 Jul, 2012 [facility] [address] [id number] [address] [place] [address], [place] [address] Jun, [facility] [address] [id number] [address] [place] [address], [place] [address] Jun, [facility] [address] [id number] [address] [place] [address], [place] [address] Jun, [facility] [address] [id number] [address] [place] [address], [place] [address] Jun, [facility] [address] [id number] [address] [place] [address], [place] [address] May, [facility] [address] [id number] [address] [place] [address], [place] [address] Apr, [facility] [address] [id number] [address] [place] [address], [place] [address] March, [facility] [address] [id number] [address] [place] [address], [place] [address] March, [facility] [address] [id number] [address] [place] [address], [place] [address] March, [facility] [address] [id number] [address] [place] [address], [place] [address] Feb, [facility] [address] [id number] [address] [place] [address], [place] [address] Feb, [facility] [address] [id number] [address] [place] [address], [place] [address] Jan, [facility] [address] [id number] [address] [place] [address], [place] [address] Jan, [facility] [address] [id number] [address] [place] [address], [place] [address] Jan, [facility] [address] [id number] [address] [place] [address], [place] [address] Dec, [facility] [address] [id number] [address] [place] [address], [place] [address] Dec, [facility] [address] [id number] [address] [place] [address], [place] [address] Nov, [facility] [address] [id number] [address] [place] [address], [place] [address] Nov, [facility] [address] [id number] [address] [place] [address], [place] [address] Nov, [facility] [address] [id number] [address] [place] [address], [place] [address] Nov, [facility] [address] [id number] [address] [place] [address], [place] [address] Nov, [facility] [address] [id number] [address] [place] [address], [place] [address] Oct, [facility] [address] [id number] [address] [place] [address], [place] [address] Oct, [facility] [address] [id number] [address] [place] [address], [place] [address] Oct, [facility] [address] [id number] [address] [place] [address], [place] [address] Oct, [facility] [address] [id number] [address] [place] [address], [place] [address] Sep, [facility] [address] [id number] [address] [place] [address] Sep, [facility] [address] [id number] [address] [place] [address] Sep, [facility] [address] [id number] [address] [place] [address] Aug, [facility] [address] [facility] [id number] [address] [place] [address] Oct, [facility] [address] [facility] [id number] [address] [place] [address] Oct, [facility] [address] [facility] [id number] [address] [place] [address] Oct, [facility] [address] [facility] [id number] [address] [place] [address] Oct, IMMUNIZATIONS No Known Immunizations SOCIAL HISTORY Never Assessed REASON FOR VISIT EMR-[facility] [place] CARE VITAL SIGNS MEDICATIONS Unknown Medications RESULTS No Results PROCEDURES No Known procedures INSTRUCTIONS MEDICATIONS ADMINISTERED No Known Medications MEDICAL (GENERAL) HISTORY Type Description Date Medical History Guardian requests that we do not explain any treatment to patient! Surgical History No Surgical history information
--- OUTSIDE RECORDS SUMMARY | 2020-04-25 14:57 | XMS REPORT ---
Author Author Ronna Blackmon Doctor Organization [facility] Address Unknown Phone Unavailable Care Team Providers Care Ems Driver Name Role Phone Migration, Doctor Unavailable Unavailable PROBLEMS Type Condition ICD9-CM Code CVO82-VZ Code Onset Dates Condition S tatus SNOMED Code Problem Encounter for long-term (current) use of other medications V58.69 Active 840083140 Problem Posttraumatic stress disorder F43.10 Active 01757621 Problem Bipolar disorder, unspecified F31.9 Active 95091637 Problem 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 Active 63567450 Problem Posttraumatic stress disorder 309.81 Active 07252072 Problem Bipolar disorder, unspecified 296.80 Active 78046768 Problem Attention deficit hyperactivity disorder (ADHD), combi dylon type F90.2 Active 815288489 ALLERGIES No Information ENCOUNTERS Encounter Location Date Diagnosis [facility] [address] [address] March, [facility] [address] [address] 15 Feb, 2019 Bipolar disorder, unspecifie d F31.9 [facility] [address] [id number] [address] [place] [address] 20 Jan, 2019 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 requiring routine preventive dental care K08.9 ; Dental examination Z01.20 and Caries K02.9 [facility] [address] [id number] [address] [place] [id number] 14 Jan, 2019 Bipolar disorder, unspecifie d F31.9 [facility] [address] [id number] [address] [place] [address] 20 Dec, 2018 Bipolar disorder, unspecifie d F31.9 ; Attention deficit hyperactivity disorder (ADHD), combined type F90.2 and Posttraumatic stress disorder F43.10 [facility] [address] [facility] [id number] [address] [place] [address] Oct, Sore throat J02.9 [facility] [address] [facility] [id number] [address] [place] [address] Oct, [facility] [address] [facility] [id number] [address] [place] [phone] Oct, Bipolar disorder, unspecifie d F31.9 [facility] [address] [facility] [id number] [address] [place] [id number] Sep, 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 requiring routine preventive dental care K08.9 [facility] [address] [facility] [id number] [address] [place] [address] Sep, Bipolar disorder, unspecifie d F31.9 ; Attention deficit hyperactivity disorder (ADHD), combined type F90.2 and Posttraumatic stress disorder F43.10 [facility] [address] [facility] [id number] [address] [place] [address] Aug, Lymphadenopathy of left cerv ical region R59.0 [facility] [address] [id number] [address] [place] [address] Aug, Encounter for immunization Z 23 [facility] [address] [id number] [address] [place] [address] Aug, 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 Z79.899 [facility] [address] [id number] [address] [place] [id number] Jul, Bipolar disorder, unspecifie d F31.9 [facility] [address] [facility] [id number] [address] [place] [address] Jun, Bipolar disorder, unspecifie d F31.9 [facility] [address] [facility] [id number] [address] [place] [address] Jun, [facility] [address] [id number] [address] [place] [address] Jun, Bipolar disorder, unspecifie d F31.9 ; Attention deficit hyperactivity disorder (ADHD), combined type F90.2 ; Posttraumatic stress disorder F43.10 and Other correction (current) drug therapy Z79.899 [facility] [address] [facility] [id number] [address] [place] [id number] Jun, Dental examination Z01.20 [facility] [address] [facility] [id number] [address] [place] [phone] May, [facility] [address] [facility] [id number] [address] [place] [address] Apr, Bipolar disorder, unspecifie d F31.9 [facility] [address] [facility] [id number] [place] [address] March, Bipolar disorder, unspecifie d F31.9 ; Attention deficit hyperactivity disorder (ADHD), combined type F90.2 and Posttraumatic stress disorder F43.10 [facility] [address] [id number] [address] [place] [address] Feb, [facility] [address] [facility] [id number] [address] [place] [address] Feb, Insect bite (nonvenomous), l eft knee, initial encounter S80.262A and Bitten or stung by nonvenomous insect and other nonvenomous arthropods, initial encounter W57.XXXA [facility] [address] [id number] [address] [place] [address] Feb, Bipolar disorder, unspecifie d F31.9 [facility] [address] [id number] [address] [place] [id number] Feb, Dental examination Z01.20 [facility] [address] [facility] [id number] [address] [place] [address] Feb, Bipolar disorder, unspecifie d F31.9 ; Attention deficit hyperactivity disorder (ADHD), combined type F90.2 and Posttraumatic stress disorder F43.10 [facility] [address] [facility] [id number] [address] [place] [id number] Feb, Dental examination Z01.20 [facility] [address] [id number] [address] [place] [address] Jan, Bipolar disorder, unspecifie d F31.9 [facility] [address] [id number] [address] [place] [address] Jan, Attention deficit hyperactiv ity disorder (ADHD), combined type F90.2 [facility] [address] [facility] [id number] [address] [place] [address] Dec, Posttraumatic stress disorde r F43.10 [facility] [address] [id number] [address] [place] [address] Dec, Posttraumatic stress disorde r F43.10 [facility] [address] [id number] [address] [place] [id number] Nov, Dental examination Z01.20 [facility] [address] [id number] [place] [address] [id number] Nov, Dental examination Z01.20 [facility] [address] [id number] [place] [address] [id number] Nov, Encounter for dental exam an d cleaning w/o abnormal findings Z01.20 [facility] [address] [facility] [id number] [address] [place] [address] Sep, Bipolar disorder, unspecifie d F31.9 ; Posttraumatic stress disorder F43.10 and Attention deficit hyperactivity disorder (ADHD), combined type F90.2 [facility] [address] [id number] [address] [place] [address] Aug, Posttraumatic stress disorde r F43.10 [facility] [address] [facility] [id number] [address] [place] [id number] 15 Jul, 2017 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 Z79.899 [facility] [address] [facility] [id number] [address] [place] [phone] 11 Jul, 2017 Bipolar disorder, unspecifie d F31.9 ; Attention deficit hyperactivity disorder (ADHD), combined type F90.2 and Posttraumatic stress disorder F43.10 [facility] [address] [id number] [address] [place] [address] Jun, Bipolar disorder, unspecifie d F31.9 ; Posttraumatic stress disorder F43.10 ; Attention deficit hyperactivity disorder (ADHD), combined type F90.2 and 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 Z79.899 [facility] [address] [facility] [id number] [address] [place] [address] March, Bipolar disorder, unspecifie d F31.9 ; Posttraumatic stress disorder F43.10 and Attention deficit hyperactivity disorder (ADHD), combined type F90.2 [facility] [address] [id number] [address] [place] [address] Dec, Bipolar disorder, unspecifie d F31.9 ; Posttraumatic stress disorder F43.10 and Attention deficit hyperactivity disorder (ADHD), combined type F90.2 [facility] [address] [id number] [address] [place] [address] Dec, [facility] [address] [facility] [id number] [address] [place] [phone] Sep, [facility] [address] [facility] [id number] [address] [place] [address] Aug, Bipolar disorder, unspecifie d F31.9 ; Posttraumatic stress disorder F43.10 and Attention deficit hyperactivity disorder (ADHD), combined type F90.2 [facility] [address] [id number] [address] [place] [phone] Jun, [facility] [address] [id number] [address] [place] [address] March, [facility] [address] [facility] [id number] [address] [place] [address] Feb, Bipolar disorder, unspecifie d F31.9 ; Attention deficit hyperactivity disorder (ADHD), combined type F90.2 and Posttraumatic stress disorder F43.10 [facility] [address] [id number] [address] [place] [phone] Feb, [facility] [address] [facility] [id number] [address] [place] [address] Feb, [facility] [address] [facility] [id number] [address] [place] [phone] Feb, [facility] [address] [facility] [id number] [address] [place] [address] Jan, [facility] [address] [id number] [address] [place] [address] [id number] Dec, Dental examination Z01.20 [facility] [address] [facility] [id number] [address] [place] [address] Sep, [facility] [address] [facility] [id number] [address] [place] [phone] Sep, Attention deficit hyperactiv ity disorder (ADHD), combined type F90.2 ; Posttraumatic stress disorder F43.10 and Bipolar disorder, unspecified F31.9 [facility] [address] [facility] [id number] [address] [place] [phone] Aug, [facility] [address] [facility] [id number] [address] [place] [phone] Aug, [facility] [address] [facility] [id number] [address] [place] [address] Jul, [facility] [address] [facility] [id number] [address] [place] [address] May, Bipolar disorder, unspecifie d 296.80 ; 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.00 and Posttraumatic stress disorder 309.81 [facility] [address] [facility] [id number] [address] [place] [address] May, [facility] [address] [facility] [id number] [address] [place] [phone] May, [facility] [address] [id number] [address] [place] [address], [place] [address] May, [facility] [address] [id number] [address] [place] [address], [place] [address] Apr, [facility] [address] [id number] [address] [place] [address], [place] [address] Apr, [facility] [address] [id number] [address] [place] [address], [place] [address] Apr, [facility] [address] [id number] [address] [place] [address], [place] [address] March, [facility] [address] [id number] [address] [place] [address], [place] [address] March, [facility] [address] [id number] [address] [place] [address], [place] [address] March, [facility] [address] [id number] [address] [place] [address], [place] [address] Feb, [facility] [address] [id number] [address] [place] [address], [place] [address] Feb, [facility] [address] [id number] [address] [place] [address], [place] [address] Jan, [facility] [address] [id number] [address] [place] [address], [place] [address] 30 Jan, 2015 [facility] [address] [id number] [address] [place] [address], [place] [address] Jan, [facility] [address] [id number] [address] [place] [address], [place] [address] Jan, [facility] [address] [id number] [address] [place] [address], [place] [address] Jan, [facility] [address] [id number] [address] [place] [address], [place] [address] Jan, [facility] [address] [id number] [address] [place] [address], [place] [address] Jan, [facility] [address] [id number] [address] [place] [address], [place] [address] Jan, 2014 [facility] [address] [id number] [address] [place] [address], [place] [address] Jan, 2014 [facility] [address] [id number] [address] [place] [address], [place] [address] Jan, 2014 [facility] [address] [id number] [address] [place] [address], [place] [address] Dec, 2014 [facility] [address] [id number] [address] [place] [address], [place] [address] Dec, 2014 [facility] [address] [id number] [address] [place] [address], [place] [address] Dec, 2014 [facility] [address] [id number] [address] [place] [address], [place] [address] Dec, 2014 [facility] [address] [id number] [address] [place] [address], [place] [address] Oct, [facility] [address] [id number] [address] [place] [address], [place] [address] Oct, [facility] [address] [id number] [address] [place] [address], [place] [address] Oct, [facility] [address] [id number] [address] [place] [address], [place] [address] Oct, [facility] [address] [id number] [address] [place] [address], [place] [address] Oct, [facility] [address] [id number] [address] [place] [address], [place] [address] Oct, [facility] [address] [id number] [address] [place] [address], [place] [address] Oct, [facility] [address] [id number] [address] [place] [address], [place] [address] Sep, [facility] [address] [id number] [address] [place] [address], [place] [address] Sep, [facility] [address] [id number] [address] [place] [address], [place] [address] Sep, [facility] [address] [id number] [address] [place] [address], [place] [address] Sep, [facility] [address] [id number] [address] [place] [address], [place] [address] Sep, [facility] [address] [id number] [address] [place] [address], [place] [address] Sep, [facility] [address] [id number] [address] [place] [address], [place] [address] Sep, [facility] [address] [id number] [address] [place] [address], [place] [address] Sep, [facility] [address] [id number] [address] [place] [address], [place] [address] Aug, [facility] [address] [id number] [address] [place] [address], [place] [address] Aug, [facility] [address] [id number] [address] [place] [address], [place] [address] Aug, [facility] [address] [id number] [address] [place] [address], [place] [address] Aug, [facility] [address] [id number] [address] [place] [address], [place] [address] Jul, [facility] [address] [id number] [address] [place] [address], [place] [address] Jul, [facility] [address] [id number] [address] [place] [address], [place] [address] Jul, [facility] [address] [id number] [address] [place] [address], [place] [address] Jul, [facility] [address] [id number] [address] [place] [address], [place] [address] Jun, [facility] [address] [id number] [facility] [place] [address] Jun, [facility] [address] [id number] [facility] [place] [address] Jun, [facility] [address] [id number] [facility] [place] [address] Jun, [facility] [address] [id number] [facility] [place] [address] May, [facility] [address] [id number] [address] [place] [address], [place] [address] May, [facility] [address] [id number] [address] [place] [address], [place] [address] May, [facility] [address] [id number] [address] [place] [address], [place] [address] May, [facility] [address] [id number] [address] [place] [address], [place] [address] Apr, [facility] [address] [id number] [address] [place] [address], [place] [address] Apr, [facility] [address] [id number] [address] [place] [address], [place] [address] Apr, [facility] [address] [id number] [address] [place] [address], [place] [address] Apr, [facility] [address] [id number] [address] [place] [address], [place] [address] Apr, [facility] [address] [id number] [address] [place] [address], [place] [address] Apr, [facility] [address] [id number] [address] [place] [address], [place] [address] Apr, [facility] [address] [id number] [address] [place] [address], [place] [address] Apr, [facility] [address] [id number] [address] [place] [address], [place] [address] Apr, [facility] [address] [id number] [facility] [place] [address] Apr, [facility] [address] [id number] [address] [place] [address], [place] [address] Apr, [facility] [address] [id number] [address] [place] [address], [place] [address] Apr, [facility] [address] [id number] [address] [place] [address], [place] [address] Apr, [facility] [address] [id number] [address] [place] [address], [place] [address] March, [facility] [address] [id number] [address] [place] [address], [place] [address] March, [facility] [address] [id number] [address] [place] [address], [place] [address] March, [facility] [address] [id number] [address] [place] [address], [place] [address] March, [facility] [address] [id number] [address] [place] [address], [place] [address] Jan, [facility] [address] [id number] [address] [place] [address], [place] [address] Jan, [facility] [address] [id number] [address] [place] [address], [place] [address] Jan, [facility] [address] [id number] [address] [place] [address], [place] [address] Jan, [facility] [address] [id number] [address] [place] [address], [place] [address] Jan, [facility] [address] [id number] [address] [place] [address], [place] [address] Jan, [facility] [address] [id number] [address] [place] [address], [place] [address] Dec, [facility] [address] [id number] [address] [place] [address], [place] [address] Dec, [facility] [address] [id number] [address] [place] [address], [place] [address] Dec, [facility] [address] [id number] [address] [place] [address], [place] [address] Dec, [facility] [address] [id number] [address] [place] [address], [place] [address] Nov, [facility] [address] [id number] [address] [place] [address], [place] [address] Nov, [facility] [address] [id number] [address] [place] [address], [place] [address] Nov, [facility] [address] [id number] [address] [place] [address], [place] [address] Nov, [facility] [address] [id number] [address] [place] [address], [place] [address] Oct, [facility] [address] [id number] [address] [place] [address], [place] [address] Oct, [facility] [address] [id number] [address] [place] [address], [place] [address] Oct, [facility] [address] [id number] [address] [place] [address], [place] [address] Oct, [facility] [address] [id number] [address] [place] [address], [place] [address] Oct, [facility] [address] [id number] [address] [place] [address], [place] [address] Oct, [facility] [address] [id number] [address] [place] [address], [place] [address] Oct, [facility] [address] [id number] [address] [place] [address], [place] [address] Oct, [facility] [address] [id number] [address] [place] [address], [place] [address] Sep, [facility] [address] [id number] [address] [place] [address], [place] [address] Sep, [facility] [address] [id number] [address] [place] [address], [place] [address] Jul, [facility] [address] [id number] [address] [place] [address], [place] [address] Jul, [facility] [address] [id number] [address] [place] [address], [place] [address] Jul, [facility] [address] [id number] [address] [place] [address], [place] [address] Jul, [facility] [address] [id number] [address] [place] [address], [place] [address] Jun, [facility] [address] [id number] [address] [place] [address], [place] [address] Jun, [facility] [address] [id number] [address] [place] [address], [place] [address] May, [facility] [address] [id number] [address] [place] [address], [place] [address] Apr, [facility] [address] [id number] [address] [place] [address], [place] [address] Apr, [facility] [address] [id number] [address] [place] [address], [place] [address] Apr, [facility] [address] [id number] [address] [place] [address], [place] [address] March, [facility] [address] [id number] [address] [place] [address], [place] [address] March, [facility] [address] [id number] [address] [place] [address], [place] [address] Feb, [facility] [address] [id number] [address] [place] [address], [place] [address] Jan, [facility] [address] [id number] [address] [place] [address], [place] [address] 05 Jan, 2013 [facility] [address] [id number] [address] [place] [address], [place] [address] Dec, [facility] [address] [id number] [address] [place] [address], [place] [address] Dec, [facility] [address] [id number] [address] [place] [address], [place] [address] Nov, [facility] [address] [id number] [address] [place] [address], [place] [address] Nov, [facility] [address] [id number] [address] [place] [address], [place] [address] Nov, [facility] [address] [id number] [address] [place] [address], [place] [address] Oct, [facility] [address] [id number] [address] [place] [address], [place] [address] Oct, [facility] [address] [id number] [address] [place] [address], [place] [address] Oct, [facility] [address] [id number] [address] [place] [address], [place] [address] Oct, [facility] [address] [id number] [address] [place] [address], [place] [address] Sep, [facility] [address] [id number] [address] [place] [address], [place] [address] 29 Sep, 2012 [facility] [address] [id number] [address] [place] [address], [place] [address] Sep, [facility] [address] [id number] [address] [place] [address], [place] [address] Sep, [facility] [address] [id number] [address] [place] [address], [place] [address] 15 Sep, 2012 [facility] [address] [id number] [address] [place] [address], [place] [id number] 15 Sep, 2012 [facility] [address] [id number] [address] [place] [address], [place] [address] Aug, [facility] [address] [id number] [address] [place] [address], [place] [id number] 26 Jul, 2012 [facility] [address] [id number] [address] [place] [address], [place] [address] Jul, [facility] [address] [id number] [address] [place] [address], [place] [address] 18 Jul, 2012 [facility] [address] [id number] [address] [place] [address], [place] [address] 14 Jul, 2012 [facility] [address] [id number] [address] [place] [address], [place] [address] Jun, [facility] [address] [id number] [address] [place] [address], [place] [address] Jun, [facility] [address] [id number] [address] [place] [address], [place] [address] Jun, [facility] [address] [id number] [address] [place] [address], [place] [address] Jun, [facility] [address] [id number] [address] [place] [address], [place] [address] May, [facility] [address] [id number] [address] [place] [address], [place] [address] Apr, [facility] [address] [id number] [address] [place] [address], [place] [address] March, [facility] [address] [id number] [address] [place] [address], [place] [address] March, [facility] [address] [id number] [address] [place] [address], [place] [address] March, [facility] [address] [id number] [address] [place] [address], [place] [id number] Feb, [facility] [address] [id number] [address] [place] [address], [place] [address] Feb, [facility] [address] [id number] [address] [place] [address], [place] [address] Jan, [facility] [address] [id number] [address] [place] [address], [place] [address] Jan, [facility] [address] [id number] [address] [place] [address], [place] [address] Jan, [facility] [address] [id number] [address] [place] [address], [place] [address] Dec, [facility] [address] [id number] [address] [place] [address], [place] [address] Dec, [facility] [address] [id number] [address] [place] [address], [place] [address] Nov, [facility] [address] [id number] [address] [place] [address], [place] [id number] Nov, [facility] [address] [id number] [address] [place] [address], [place] [address] Nov, [facility] [address] [id number] [address] [place] [address], [place] [address] Nov, [facility] [address] [id number] [address] [place] [address], [place] [address] Nov, [facility] [address] [id number] [address] [place] [address], [place] [address] Oct, [facility] [address] [id number] [address] [place] [address], [place] [address] Oct, [facility] [address] [id number] [address] [place] [address], [place] [address] Oct, [facility] [address] [id number] [address] [place] [address], [place] [address] Oct, [facility] [address] [id number] [address] [place] [address], [place] [address] Sep, [facility] [address] [id number] [address] [place] [id number] Sep, [facility] [address] [id number] [address] [place] [id number] Sep, [facility] [address] [id number] [address] [place] [id number] Aug, [facility] [address] [facility] [id number] [address] [place] [id number] Oct, [facility] [address] [facility] [id number] [address] [place] [id number] Oct, [facility] [address] [facility] [id number] [address] [place] [id number] Oct, [facility] [address] [facility] [id number] [address] [place] [id number] Oct, IMMUNIZATIONS No Known Immunizations SOCIAL HISTORY Never Assessed [place]ASON [place] [place] VITAL SIGNS MEDICATIONS Unknown Medications RESULTS No Results PROCEDURES No Known procedures INSTRUCTIONS MEDICATIONS ADMINISTERED No Known Medications MEDICAL (GENERAL) HISTORY Type Description Date Medical History Guardian requests that we do not explain any treatment to patient! Surgical History No Surgical history information
--- OUTSIDE RECORDS SUMMARY | 2020-04-25 14:58 | XMS REPORT ---
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 Active 47721881 Problem Attention deficit hyperactivity disorder (ADHD), combi dylon type F90.2 Active 860066613 Problem Bipolar disorder, unspecified 296.80 Active 51072410 ALLERGIES No Known Allergies ENCOUNTERS Encounter Location Date Diagnosis [facility] [id number] [place] [id number] Dec, [facility] [address] [facility] [id number] [address] [place] [address] [id number] Sep, [facility] [place] [address] [id number] [address] [place] [address] Sep, Bipolar disorder, unspecifie d F31.9 ; Attention deficit hyperactivity disorder (ADHD), combined type F90.2 and Posttraumatic stress disorder F43.10 [facility] [address] [facility] [id number] [address] [place] [address] Aug, Lymphadenopathy of left cerv ical region R59.0 [facility] [place] [address] [facility] [id number] [address] [place] [address] Aug, Encounter for immunization Z 23 [facility] [place] [address] [facility] [id number] [address] [place] [address] Aug, 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 Z79.899 [facility] [place] [address] [facility] [id number] [address] [place] [address] Jul, Bipolar disorder, unspecifie d F31.9 [facility] [place] [address] [facility] [id number] [address] [place] [address] Jun, Bipolar disorder, unspecifie d F31.9 [facility] [place] [address] [facility] [id number] [address] [place] [address] Jun, [facility] [place] [address] [facility] [id number] [address] [place] [address] Jun, Bipolar disorder, unspecifie d F31.9 ; Attention deficit hyperactivity disorder (ADHD), combined type F90.2 ; Posttraumatic stress disorder F43.10 and 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.899 [facility] [address] [facility] [id number] [address] [place] [address] [id number] Jun, Dental examination Z01.20 [facility] [place] [address] [facility] [id number] [address] [place] [address] May, [facility] [place] [address] [facility] [id number] [address] [place] [address] Apr, Bipolar disorder, unspecifie d F31.9 [facility] [place] [address] [facility] [id number] [address] [place] [address] March, Bipolar disorder, unspecifie d F31.9 ; Attention deficit hyperactivity disorder (ADHD), combined type F90.2 and Posttraumatic stress disorder F43.10 [facility] [place] [address] [facility] [id number] [address] [place] [address] Feb, [facility] [address] [facility] [id number] [address] [place] [address] Feb, Insect bite (nonvenomous), l eft knee, initial encounter S80.262A and Bitten or stung by nonvenomous insect and other nonvenomous arthropods, initial encounter W57.XXXA [facility] [place] [address] [facility] [id number] [address] [place] [address] Feb, Bipolar disorder, unspecifie d F31.9 [facility] [address] [id number] [address] [place] [address] [id number] Feb, Dental examination Z01.20 [facility] [place] [address] [facility] [id number] [address] [place] [address] Feb, Bipolar disorder, unspecifie d F31.9 ; Attention deficit hyperactivity disorder (ADHD), combined type F90.2 and Posttraumatic stress disorder F43.10 [facility] [address] [facility] [id number] [id number] Feb, Dental examination Z01.20 [facility] [place] [id number] [place] [address] Jan, Bipolar disorder, unspecifie d F31.9 [facility] [place] [address] [facility] [id number] [address] [place] [address] Jan, Attention deficit hyperactiv ity disorder (ADHD), combined type F90.2 [facility] [place] [address] [id number] [address] [place] [address] Dec, Posttraumatic stress disorde r F43.10 [facility] [place] [address] [id number] [address] [place] [address] Dec, Posttraumatic stress disorde r F43.10 [facility] [address] [id number] [address] [place] [address] [id number] Nov, Dental examination Z01.20 [facility] [id number] [id number] Nov, Encounter for dental exam an d cleaning w/o abnormal findings Z01.20 [facility] [address] [id number] [address] [place] [address] [id number] Nov, Dental examination Z01.20 [facility] [place] [address] [facility] [id number] [address] [place] [id number] 08 Sep, 2017 Bipolar disorder, unspecifie d F31.9 ; Posttraumatic stress disorder F43.10 and Attention deficit hyperactivity disorder (ADHD), combined type F90.2 [facility] [place] [address] [facility] [id number] [address] [place] [phone] 09 Aug, 2017 Posttraumatic stress disorde r F43.10 [facility] [place] [address] [facility] [id number] [address] [place] [phone] 15 Jul, 2017 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 Z79.899 [place] [address] [facility] [id number] [address] [place] [id number] 11 Jul, 2017 Bipolar disorder, unspecifie d F31.9 ; Attention deficit hyperactivity disorder (ADHD), combined type F90.2 and Posttraumatic stress disorder F43.10 [place] [address] [facility] [id number] [address] [place] [address] Jun, Bipolar disorder, unspecifie d F31.9 ; Posttraumatic stress disorder F43.10 ; Attention deficit hyperactivity disorder (ADHD), combined type F90.2 and Other halfway (current) drug therapy Z79.899 [facility] [place] [address] [facility] [id number] [address] [place] [address] March, Bipolar disorder, unspecifie d F31.9 ; Posttraumatic stress disorder F43.10 and Attention deficit hyperactivity disorder (ADHD), combined type F90.2 [facility] [place] [address] [facility] [id number] [address] [place] [address] Dec, Bipolar disorder, unspecifie d F31.9 ; Posttraumatic stress disorder F43.10 and Attention deficit hyperactivity disorder (ADHD), combined type F90.2 [facility] [place] [address] [facility] [id number] [address] [place] [address] Dec, [facility] [place] [address] [facility] [id number] [address] [place] [address] Sep, [place] [address] [id number] [address] [place] [address] Aug, Bipolar disorder, unspecifie d F31.9 ; Posttraumatic stress disorder F43.10 and Attention deficit hyperactivity disorder (ADHD), combined type F90.2 [facility] [place] [address] [id number] [address] [place] [address] Jun, [facility] [place] [address] [id number] [address] [place] [address] March, [facility] [place] [address] [id number] [address] [place] [phone] Feb, Bipolar disorder, unspecifie d F31.9 ; Attention deficit hyperactivity disorder (ADHD), combined type F90.2 and Posttraumatic stress disorder F43.10 [facility] [place] [address] [id number] [address] [place] [id number] Feb, [facility] [place] [address] [id number] [address] [place] [id number] Feb, [facility] [place] [address] [id number] [address] [place] [phone] Feb, [facility] [place] [address] [id number] [address] [place] [address] Jan, [facility] [address] [id number] [address] [place] [address] [id number] Dec, Dental examination Z01.20 [facility] [place] [address] [id number] [address] [place] [phone] Sep, [facility] [place] [address] [id number] [address] [place] [address] Sep, Attention deficit hyperactiv ity disorder (ADHD), combined type F90.2 ; Posttraumatic stress disorder F43.10 and Bipolar disorder, unspecified F31.9 [facility] [place] [address] [id number] [address] [place] [phone] Aug, [facility] [place] [address] [id number] [address] [place] [address] Aug, [facility] [address] [id number] [address] [place] [id number] Jul, [facility] [address] [id number] [address] [place] [address] May, Bipolar disorder, unspecifie d 296.80 ; 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.00 and Posttraumatic stress disorder 309.81 [facility] [address] [id number] [address] [place] [address] May, [facility] [address] [id number] [address] [place] [phone] May, [facility] [address] [id number] [address] [place] [phone] May, [facility] [address] [id number] [address] [place] [phone] Apr, [facility] [address] [id number] [address] [place] [phone] Apr, [facility] [address] [id number] [address] [place] [phone] Apr, [facility] [address] [id number] [address] [place] [phone] March, [facility] [address] [id number] [address] [place] [id number] March, [facility] [address] [id number] [address] [place] [address] March, [facility] [address] [id number] [address] [place] [phone] Feb, [facility] [address] [id number] [address] [place] [phone] Feb, [facility] [address] [id number] [address] [place] [phone] Jan, [facility] [address] [id number] [address] [place] [address], [place] [address] Jan, [facility] [address] [id number] [address] [place] [address], [place] [address] Jan, [facility] [address] [id number] [address] [place] [address], [place] [address] Jan, [facility] [address] [id number] [address] [place] [address], [place] [address] Jan, [facility] [address] [id number] [address] [place] [address], [place] [address] Jan, [facility] [address] [id number] [address] [place] [address], [place] [address] Jan, [facility] [address] [id number] [address] [place] [address], [place] [address] Jan, [facility] [address] [id number] [address] [place] [address], [place] [address] Jan, [facility] [address] [id number] [address] [place] [address], [place] [address] Jan, [facility] [address] [id number] [address] [place] [address], [place] [address] Dec, 2014 [facility] [address] [id number] [address] [place] [address], [place] [address] Dec, [facility] [address] [id number] [address] [place] [id number] Dec, 2014 [facility] [place] [address] [id number] [address] [place] [address], [place] [address] Dec, [facility] [address] [id number] [address] [place] [address], [place] [address] Oct, [facility] [address] [id number] [address] [place] [address], [place] [address] Oct, [facility] [address] [id number] [address] [place] [phone] Oct, [facility] [address] [id number] [address] [place] [address], [place] [address] Oct, [facility] [address] [id number] [address] [place] [address], [place] [address] Oct, [facility] [address] [id number] [address] [place] [address], [place] [address] Oct, [facility] [address] [id number] [address] [place] [address], [place] [address] Oct, [facility] [address] [id number] [address] [place] [address], [place] [address] Sep, [facility] [address] [id number] [address] [place] [address], [place] [address] Sep, [facility] [address] [id number] [address] [place] [address], [place] [address] Sep, [facility] [address] [id number] [address] [place] [address], [place] [address] Sep, [facility] [address] [id number] [address] [place] [address], [place] [address] Sep, [facility] [address] [id number] [address] [place] [address], [place] [address] Sep, [facility] [place] [address] [id number] [address] [place] [address], [place] [address] Sep, [facility] [place] [facility] [address] [id number] [address] [place] [address] Sep, [facility] [place] [address] [id number] [address] [place] [address], [place] [address] Aug, [facility] [address] [id number] [address] [place] [address], [place] [address] Aug, [facility] [place] [facility] [address] [id number] [address] [place] [address], [place] [address] Aug, [facility] [address] [id number] [facility] [place] [address] Aug, [facility] [address] [id number] [facility] [place] [address] 08 Jul, 2014 [facility] [place] [facility] [address] [id number] [address] [place] [address], [place] [address] Jul, [facility] [place] [facility] [address] [id number] [address] [place] [address], [place] [address] Jul, [facility] [place] [facility] [address] [id number] [address] [place] [address], [place] [address] Jul, [facility] [place] [facility] [address] [id number] [address] [place] [address], [place] [address] Jun, [facility] [place] [facility] [address] [id number] [address] [place] [address], [place] [address] Jun, [facility] [place] [facility] [address] [id number] [address] [place] [address], [place] [address] Jun, [facility] [place] [address] [id number] [address] [place] [address], [place] [address] Jun, [facility] [address] [id number] [address] [place] [address], [place] [address] May, [facility] [place] [address] [id number] [address] [place] [address], [place] [address] May, [facility] [address] [id number] [address] [place] [address], [place] [address] May, [facility] [place] [facility] [address] [id number] [address] [place] [address], [place] [address] May, [facility] [place] [address] [id number] [address] [place] [address], [place] [address] Apr, [facility] [place] [facility] [address] [id number] [address] [place] [address], [place] [address] Apr, [facility] [address] [id number] [address] [place] [address], [place] [address] Apr, [facility] [address] [id number] [facility] [place] [address] Apr, [facility] [address] [id number] [facility] [place] [address] Apr, [facility] [address] [id number] [facility] [place] [address] Apr, [facility] [address] [id number] [address] [place] [address], [place] [address] Apr, [facility] [address] [id number] [address] [place] [address], [place] [address] Apr, [facility] [address] [id number] [address] [place] [address], [place] [address] Apr, [facility] [address] [id number] [address] [place] [address], [place] [address] Apr, [facility] [address] [id number] [address] [place] [address], [place] [address] Apr, [facility] [address] [id number] [address] [place] [address], [place] [address] Apr, [facility] [address] [id number] [address] [place] [address], [place] [address] Apr, [facility] [place] [facility] [address] [id number] [address] [place] [address], [place] [address] March, [facility] [address] [id number] [address] [place] [address], [place] [address] March, [facility] [address] [id number] [address] [place] [address], [place] [address] March, [facility] [address] [id number] [address] [place] [address], [place] [address] March, [facility] [place] [facility] [address] [id number] [facility] [place] [address] Jan, [facility] [place] [facility] [address] [id number] [address] [address] 24 Jan, 2014 [facility] [address] [id number] [address] [place] [address], [place] [address] Jan, [facility] [address] [id number] [address] [place] [address], [place] [address] Jan, [facility] [address] [id number] [address] [place] [address], [place] [address] Jan, [facility] [address] [id number] [address] [place] [address], [place] [address] Jan, [facility] [address] [id number] [address] [place] [address], [place] [address] Dec, [facility] [address] [id number] [address] [place] [address], [place] [address] Dec, [facility] [address] [id number] [address] [place] [address], [place] [address] Dec, [facility] [address] [id number] [address] [place] [address], [place] [address] Dec, [facility] [address] [id number] [address] [place] [address], [place] [address] Nov, [facility] [address] [id number] [address] [place] [address], [place] [address] Nov, [facility] [address] [id number] [address] [place] [address], [place] [address] Nov, [facility] [address] [id number] [address] [place] [address], [place] [address] Nov, [facility] [address] [id number] [address] [place] [address], [place] [address] Oct, [facility] [address] [id number] [address] [place] [address], [place] [address] Oct, [facility] [address] [id number] [address] [place] [address], [place] [address] Oct, [facility] [address] [id number] [address] [place] [address], [place] [address] Oct, [facility] [address] [id number] [address] [place] [address], [place] [address] Oct, [facility] [address] [id number] [address] [place] [address], [place] [address] Oct, [facility] [address] [id number] [address] [place] [address], [place] [address] Oct, [facility] [address] [id number] [address] [place] [address], [place] [address] Oct, [facility] [address] [id number] [address] [place] [address], [place] [address] Sep, [facility] [address] [id number] [address] [place] [address], [place] [id number] Sep, [facility] [address] [id number] [address] [place] [address], [place] [address] Jul, [facility] [address] [id number] [address] [place] [address], [place] [address] Jul, [facility] [address] [id number] [address] [place] [id number] Jul, [facility] [address] [id number] [address] [place] [address] Jul, [facility] [address] [id number] [address] [place] [id number] Jun, [facility] [address] [id number] [address] [place] [address], [place] [address] Jun, [facility] [address] [id number] [address] [place] [address], [place] [address] May, [facility] [address] [id number] [address] [place] [id number] Apr, [facility] [address] [id number] [address] [place] [id number] 14 Apr, 2013 [facility] [address] [id number] [address] [place] [address], [place] [address] Apr, [facility] [address] [id number] [address] [place] [address], [place] [address] March, [facility] [address] [id number] [address] [place] [address], [place] [address] March, [facility] [address] [id number] [address] [place] [address], [place] [id number] Feb, [facility] [address] [id number] [address] [place] [address], [place] [address] Jan, [facility] [address] [id number] [address] [place] [address], [place] [address] Jan, [facility] [address] [id number] [address] [place] [address], [place] [address] Dec, [facility] [address] [id number] [address] [place] [address], [place] [address] Dec, [facility] [address] [id number] [address] [place] [address], [place] [address] Nov, [facility] [facility] [address] [id number] [address] [place] [address], [place] [address] Nov, [facility] [address] [id number] [address] [place] [address], [place] [address] Nov, [facility] [address] [id number] [address] [place] [address], [place] [address] Oct, [facility] [address] [id number] [address] [place] [address], [place] [address] Oct, [facility] [address] [id number] [address] [place] [address], [place] [address] Oct, [facility] [address] [id number] [address] [place] [address], [place] [address] Oct, [facility] [address] [id number] [address] [place] [address], [place] [address] Sep, [facility] [address] [id number] [address] [place] [address], [place] [address] Sep, [facility] [address] [id number] [address] [place] [address], [place] [address] Sep, [facility] [address] [id number] [address] [place] [address], [place] [address] Sep, [facility] [address] [id number] [address] [place] [address], [place] [address] Sep, [facility] [address] [id number] [address] [place] [address], [place] [address] Sep, [facility] [address] [id number] [address] [place] [address], [place] [address] Aug, [facility] [address] [id number] [address] [place] [address], [place] [address] 26 Jul, 2012 [facility] [address] [id number] [address] [place] [address], [place] [address] 19 Jul, 2012 [facility] [address] [id number] [address] [place] [address], [place] [address] 18 Jul, 2012 [facility] [address] [id number] [address] [place] [address], [place] [address] 14 Jul, 2012 [facility] [address] [id number] [address] [place] [address], [place] [address] Jun, [facility] [address] [id number] [address] [place] [address], [place] [address] Jun, [facility] [address] [id number] [address] [place] [address], [place] [address] Jun, [facility] [address] [id number] [address] [place] [address], [place] [address] Jun, [facility] [address] [id number] [address] [place] [address], [place] [address] May, [facility] [address] [id number] [address] [place] [address], [place] [address] Apr, [facility] [address] [id number] [address] [place] [address], [place] [address] March, [facility] [address] [id number] [address] [place] [address], [place] [address] March, [facility] [address] [id number] [address] [place] [address], [place] [address] March, [facility] [address] [id number] [address] [place] [address], [place] [address] Feb, [facility] [address] [id number] [address] [place] [address], [place] [address] Feb, [facility] [address] [id number] [address] [place] [address], [place] [address] Jan, [facility] [address] [id number] [address] [place] [address], [place] [address] Jan, [facility] [address] [id number] [address] [place] [address], [place] [address] Jan, [facility] [address] [id number] [address] [place] [address], [place] [address] Dec, [facility] [address] [id number] [address] [place] [address], [place] [address] Dec, [facility] [address] [id number] [address] [place] [address], [place] [address] Nov, [facility] [address] [id number] [address] [place] [address], [place] [address] Nov, [facility] [address] [id number] [address] [place] [address], [place] [address] Nov, [facility] [address] [id number] [address] [place] [address], [place] [address] Nov, [facility] [address] [id number] [address] [place] [id number] Nov, [facility] [address] [id number] [address] [place] [id number] Oct, [facility] [address] [id number] [address] [place] [address] Oct, [facility] [address] [id number] [address] [place] [id number] Oct, [facility] [address] [id number] [address] [place] [address] Oct, [facility] [place] [address] [id number] [address] [place] [id number] Sep, [facility] [place] [address] [id number] [address] [place] [address] Sep, [facility] [place] [address] [id number] [address] [place] [address] Sep, [facility] [place] [address] [id number] [address] [place] [id number] Aug, [facility] [place] [address] [id number] [address] [place] [address] Oct, [facility] [place] [address] [id number] [address] [place] [phone] Oct, [facility] [place] [address] [id number] [address] [place] [address] Oct, [facility] [place] [address] [id number] [address] [place] [address] Oct, IMMUNIZATIONS No Known Immunizations SOCIAL HISTORY Never Assessed REASON FOR VISIT RENU f/jordyn Hermosillo RN PLAN OF CARE Activity Details Follow Up 3 Months Reason:RENU f/u VITAL SIGNS Height 68.5 in 2018-10-06 Weight 224 lbs 2018-10-06 Heart Rate 84 bpm 2018-10-06 BMI 33.56 kg/m2 2018-10-06 Blood pressure systolic 122 mmHg 2018-10-06 Blood pressure diastolic 78 mmHg 2018-10-06 MEDICATIONS Medication Instructions Dosage Frequency Start Date End Date Duration S cleve DDAVP 0.2 mg TAKE ONE TABLET BY MOUTH DAILY Active Abilify 20 mg Orally Once a day 1 tablet 24h Feb, Active Zyprexa Zydis 5 MG Orally as needed Once a day 1 tablet on the tongue and allow to dissolve 24h Active Zoloft 100 MG TAKE ONE TABLET BY MOUTH DAILY Active Toviaz 4 MG Orally Once a day 1 tablet 24h A ctive Trazodone HCl 100 mg Orally Once a day 1 tablet 24h Active Intuniv 2 MG TAKE ONE TABLET BY MOUTH DAILY Active Xanax 0.25 MG Orally once daily 1 tablet 24h Sep, Active Clonidine HCl 0.1 Orally twice a day 1 tablet 12h Active Claritin Active BusPIRone HCl 5 MG TAKE ONE TABLET BY MOUTH EVERY MORNING Active RESULTS No Results PROCEDURES No Known procedures INSTRUCTIONS MEDICATIONS ADMINISTERED No Known Medications MEDICAL (GENERAL) HISTORY Type Description Date Medical History Guardian requests that we do not explain any treatment to patient! Surgical History No Surgical history information
--- OUTSIDE RECORDS SUMMARY | 2020-04-25 14:58 | XMS REPORT ---
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 [id number] [address] [place] [phone] Dec, [facility] [place] [address] 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 [id number] [address] [place] [phone] Sep, Bipolar disorder, unspecifie d F31.9 ; Attention deficit hyperactivity disorder (ADHD), combined type F90.2 and Posttraumatic stress disorder F43.10 [facility] [address] [facility] [id number] [address] [place] [phone] Aug, Lymphadenopathy of left cerv ical region R59.0 [facility] [place] [address] [id number] [address] [place] [phone] 05 Aug, 2018 Encounter for immunization Z 23 [facility] [place] [address] [id number] [address] [place] [phone] 05 Aug, 2018 Other alf (current) dr nubia therapy Z79.899 [facility] [place] [address] [id number] [address] [place] [phone] Jul, Bipolar disorder, unspecifie d F31.9 [facility] [place] [address] [id number] [address] [place] [phone] Jun, Bipolar disorder, unspecifie d F31.9 [facility] [place] [address] [id number] [address] [place] [phone] Jun, [facility] [place] [address] [id number] [address] [place] [phone] Jun, Bipolar disorder, unspecifie d F31.9 ; Attention deficit hyperactivity disorder (ADHD), combined type F90.2 ; Posttraumatic stress disorder F43.10 and Other alf (current) drug therapy Z79.899 [facility] [address] [id number] [address] [place] [address] [id number] Jun, Dental examination Z01.20 [facility] [place] [address] [id number] [address] [place] [phone] May, [facility] [place] [address] [id number] [address] [place] [phone] Apr, Bipolar disorder, unspecifie d F31.9 [facility] [place] [address] [id number] [address] [place] [phone] March, Bipolar disorder, unspecifie d F31.9 ; Attention deficit hyperactivity disorder (ADHD), combined type F90.2 and Posttraumatic stress disorder F43.10 [facility] [place] [address] [id number] [address] [place] [phone] Feb, [facility] [address] [facility] [id number] [address] [place] [phone] Feb, Insect bite (nonvenomous), l eft knee, initial encounter S80.262A and Bitten or stung by nonvenomous insect and other nonvenomous arthropods, initial encounter W57.XXXA [facility] [place] [address] [place] [id number] [place] [phone] Feb, Bipolar disorder, unspecifie d F31.9 [facility] [address] [facility] [id number] [place] [address] [id number] Feb, Dental examination Z01.20 [facility] [place] [address] [place] [id number] [place] [phone] Feb, Bipolar disorder, unspecifie d F31.9 ; Attention deficit hyperactivity disorder (ADHD), combined type F90.2 and Posttraumatic stress disorder F43.10 [facility] [address] [id number] Feb, Dental examination Z01.20 [facility] [place] [address] [place] [id number] [address] [place] [phone] Jan, Bipolar disorder, unspecifie d F31.9 [facility] [place] [address] [place] [id number] [place] [phone] Jan, Attention deficit hyperactiv ity disorder (ADHD), combined type F90.2 [facility] [place] [address] [place] [id number] [address] [place] [phone] Dec, Posttraumatic stress disorde r F43.10 [facility] [place] [address] [facility] [id number] [address] [place] [phone] Dec, Posttraumatic stress disorde r F43.10 [facility] [address] [facility] [id number] [address] [place] [address] [id number] Nov, Dental examination Z01.20 [facility] [address] [facility] [id number] [address] [place] [address] [id number] Nov, Encounter for dental exam an d cleaning w/o abnormal findings Z01.20 [facility] [address] [id number] [place] [id number] Nov, Dental examination Z01.20 [facility] [place] [address] [facility] [id number] [address] [place] [phone] 08 Sep, 2017 Bipolar disorder, unspecifie d F31.9 ; Posttraumatic stress disorder F43.10 and Attention deficit hyperactivity disorder (ADHD), combined type F90.2 [facility] [place] [address] [facility] [id number] [address] [place] [phone] 09 Aug, 2017 Posttraumatic stress disorde r F43.10 [facility] [place] [address] [facility] [id number] [address] [place] [phone] 15 Jul, 2017 Other alf (current) dr ug therapy Z79.899 [facility] [place] [id number] [place] [phone] 11 Jul, 2017 Bipolar disorder, unspecifie d F31.9 ; Attention deficit hyperactivity disorder (ADHD), combined type F90.2 and Posttraumatic stress disorder F43.10 [facility] [place] [address] [id number] [address] [place] [phone] 09 Jun, 2017 Bipolar disorder, unspecifie d F31.9 ; Posttraumatic stress disorder F43.10 ; Attention deficit hyperactivity disorder (ADHD), combined type F90.2 and 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 [id number] [address] [place] [phone] 08 Dec, 2016 Bipolar disorder, unspecifie d F31.9 ; Posttraumatic stress disorder F43.10 and Attention deficit hyperactivity disorder (ADHD), combined type F90.2 [facility] [place] [address] [id number] [address] [place] [phone] Dec, [facility] [place] [address] [id number] [address] [place] [phone] Sep, [facility] [place] [address] [id number] [address] [place] [phone] Aug, Bipolar disorder, unspecifie d F31.9 ; Posttraumatic stress disorder F43.10 and Attention deficit hyperactivity disorder (ADHD), combined type F90.2 [facility] [place] [address] [id number] [address] [place] [phone] Jun, [facility] [address] [id number] [address] [place] [phone] March, [facility] [place] [address] [id number] [address] [place] [phone] Feb, Bipolar disorder, unspecifie d F31.9 ; Attention deficit hyperactivity disorder (ADHD), combined type F90.2 and Posttraumatic stress disorder F43.10 [facility] [place] [address] [id number] [address] [place] [phone] Feb, [facility] [place] [address] [id number] [address] [place] [phone] Feb, [facility] [place] [address] [facility] [id number] [address] [place] [phone] Feb, [facility] [place] [address] [facility] [id number] [address] [place] [phone] Jan, [facility] [address] [id number] [address] [place] [address] [id number] Dec, Dental examination Z01.20 [facility] [place] [address] [id number] [address] [place] [phone] Sep, [facility] [address] [facility] [id number] [address] [place] [phone] Sep, Attention deficit hyperactiv ity disorder (ADHD), combined type F90.2 ; Posttraumatic stress disorder F43.10 and Bipolar disorder, unspecified F31.9 [facility] [place] [address] [id number] [address] [place] [phone] Aug, [facility] [place] [address] [id number] [address] [place] [phone] Aug, [facility] [address] [id number] [address] [place] [phone] Jul, [facility] [place] [address] [id number] [address] [place] [phone] May, Bipolar disorder, unspecifie d 296.80 ; 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.00 and Posttraumatic stress disorder 309.81 [facility] [place] [address] [id number] [address] [place] [phone] May, [facility] [place] [address] [id number] [address] [place] [phone] May, [facility] [place] [address] [id number] [address] [place] [phone] May, [facility] [place] [address] [id number] [address] [place] [phone] Apr, [facility] [place] [address] [id number] [address] [place] [phone] Apr, [facility] [place] [address] [id number] [address] [place] [phone] Apr, [facility] [place] [address] [id number] [address] [place] [phone] March, [facility] [address] [id number] [address] [place] [phone] March, [facility] [address] [id number] [address] [place] [phone] March, [facility] [address] [id number] [address] [place] [phone] Feb, [facility] [address] [id number] [address] [place] [address], [place] [id number] 13 Feb, 2015 [facility] [address] [id number] [address] [place] [address], [place] [address] Jan, [facility] [address] [id number] [address] [place] [address], [place] [phone] Jan, [facility] [address] [id number] [address] [place] [address], [place] [address] Jan, [facility] [address] [id number] [address] [place] [address], [place] [id number] Jan, [facility] [address] [id number] [address] [place] [address], [place] [address] Jan, [facility] [address] [id number] [address] [place] [address], [place] [address] Jan, [facility] [address] [id number] [address] [place] [address], [place] [address] Jan, [facility] [address] [id number] [address] [place] [address], [place] [address] Jan, [facility] [address] [id number] [address] [place] [address], [place] [address] Jan, [facility] [address] [id number] [address] [place] [address], [place] [address] Jan, [facility] [address] [id number] [address] [place] [address], [place] [address] Dec, [facility] [address] [id number] [address] [place] [address], [place] [address] Dec, [facility] [address] [id number] [address] [place] [address], [place] [address] Dec, [facility] [address] [id number] [address] [place] [address], [place] [address] Dec, [facility] [address] [id number] [address] [place] [address] [address] Oct, [facility] [address] [id number] [address] [place] [address], [place] [address] Oct, [facility] [address] [id number] [address] [place] [address], [place] [address] Oct, [facility] [address] [id number] [address] [place] [address], [place] [address] Oct, [facility] [address] [id number] [address] [place] [address], [place] [address] Oct, [facility] [address] [id number] [address] [place] [address], [place] [address] Oct, [facility] [address] [id number] [address] [place] [address], [place] [address] Oct, [facility] [address] [id number] [address] [place] [address], [place] [address] Sep, [facility] [address] [id number] [address] [place] [address], [place] [address] Sep, [facility] [address] [id number] [address] [place] [address], [place] [address] Sep, [facility] [address] [id number] [address] [place] [address], [place] [address] Sep, [facility] [address] [id number] [address] [place] [address], [place] [address] Sep, [facility] [address] [id number] [address] [place] [address], [place] [address] Sep, [facility] [address] [id number] [address] [place] [address], [place] [address] Sep, [facility] [address] [id number] [address] [place] [address], [place] [address] Sep, [facility] [address] [id number] [address] [place] [address], [place] [address] Aug, [facility] [address] [id number] [address] [place] [address], [place] [address] Aug, [facility] [address] [id number] [address] [place] [address], [place] [address] Aug, [facility] [address] [id number] [address] [place] [address], [place] [address] Aug, [facility] [address] [id number] [address] [place] [address], [place] [address] Jul, [facility] [address] [id number] [address] [place] [address], [place] [address] Jul, [facility] [address] [id number] [address] [place] [address], [place] [address] Jul, [facility] [address] [id number] [address] [place] [address], [place] [address] Jul, [facility] [address] [id number] [address] [place] [address], [place] [address] Jun, [facility] [address] [id number] [address] [place] [address], [place] [address] Jun, [facility] [address] [id number] [address] [place] [address], [place] [address] Jun, [facility] [address] [id number] [address] [place] [address], [place] [address] Jun, [facility] [address] [id number] [address] [place] [address], [place] [address] May, [facility] [address] [id number] [address] [place] [address], [place] [address] May, [facility] [address] [id number] [address] [place] [address], [place] [address] May, [facility] [address] [id number] [address] [place] [address], [place] [address] May, [facility] [address] [id number] [address] [place] [address], [place] [address] Apr, [facility] [address] [id number] [facility] [place] [address] Apr, [facility] [address] [id number] [facility] [place] [address] Apr, [facility] [address] [id number] [address] [place] [address], [place] [address] Apr, [facility] [address] [id number] [address] [place] [address], [place] [address] Apr, [facility] [address] [id number] [address] [place] [address], [place] [address] Apr, [facility] [address] [id number] [address] [place] [address], [place] [address] Apr, [facility] [address] [id number] [address] [place] [address], [place] [address] Apr, [facility] [address] [id number] [address] [place] [address], [place] [address] Apr, [facility] [address] [id number] [address] [place] [address], [place] [address] Apr, [facility] [address] [id number] [address] [place] [address], [place] [address] Apr, [facility] [address] [id number] [address] [place] [address], [place] [address] Apr, [facility] [address] [id number] [address] [place] [address], [place] [address] Apr, [facility] [address] [id number] [address] [place] [address], [place] [address] March, [facility] [address] [id number] [address] [place] [address], [place] [address] March, [facility] [address] [id number] [address] [place] [address], [place] [address] March, [facility] [address] [id number] [address] [place] [address], [place] [address] March, [facility] [address] [id number] [address] [place] [address], [place] [address] Jan, [facility] [address] [id number] [address] [place] [address], [place] [address] Jan, [facility] [address] [id number] [address] [place] [address], [place] [address] Jan, [facility] [address] [id number] [address] [place] [address], [place] [address] Jan, [facility] [address] [id number] [address] [place] [address], [place] [address] Jan, [facility] [address] [id number] [address] [place] [address], [place] [address] Jan, [facility] [address] [id number] [address] [place] [address], [place] [address] Dec, [facility] [address] [id number] [address] [place] [address], [place] [address] Dec, [facility] [address] [id number] [address] [place] [address], [place] [id number] Dec, [facility] [address] [id number] [address] [place] [address], [place] [address] Dec, [facility] [address] [id number] [address] [place] [address], [place] [address] Nov, [facility] [address] [id number] [address] [place] [address], [place] [address] Nov, [facility] [address] [id number] [address] [place] [address], [place] [address] Nov, [facility] [address] [id number] [address] [place] [address], [place] [address] Nov, [facility] [address] [id number] [address] [place] [address], [place] [address] Oct, [facility] [address] [id number] [address] [place] [address], [place] [id number] Oct, [facility] [address] [id number] [address] [place] [address], [place] [address] Oct, [facility] [address] [id number] [address] [place] [address], [place] [address] Oct, [facility] [address] [id number] [address] [place] [address], [place] [address] Oct, [facility] [address] [id number] [address] [place] [address], [place] [id number] Oct, [facility] [address] [id number] [address] [place] [address], [place] [address] Oct, [facility] [address] [id number] [address] [place] [address], [place] [address] Oct, [facility] [address] [id number] [address] [place] [address], [place] [address] Sep, [facility] [address] [id number] [address] [place] [address], [place] [address] Sep, [facility] [address] [id number] [address] [place] [address], [place] [address] Jul, [facility] [address] [id number] [address] [place] [address], [place] [address] Jul, [facility] [address] [id number] [address] [place] [address], [place] [address] Jul, [facility] [address] [id number] [address] [place] [address], [place] [id number] 07 Jul, 2013 [facility] [address] [id number] [address] [place] [address], [place] [address] Jun, [facility] [address] [id number] [address] [place] [address], [place] [address] Jun, [facility] [address] [id number] [address] [place] [address] [address] May, [facility] [address] [id number] [address] [place] [address], [place] [id number] Apr, [facility] [address] [id number] [address] [place] [address], [place] [address] Apr, [facility] [address] [id number] [address] [place] [address], [place] [address] Apr, [facility] [address] [id number] [address] [place] [address], [place] [address] March, [facility] [address] [id number] [address] [place] [address], [place] [id number] March, [facility] [address] [id number] [address] [place] [address], [place] [address] Feb, [facility] [address] [id number] [address] [place] [address], [place] [address] Jan, [facility] [address] [id number] [address] [place] [address], [place] [address] Jan, [facility] [address] [id number] [address] [place] [address], [place] [address] Dec, [facility] [address] [id number] [address] [place] [address], [place] [id number] Dec, [facility] [address] [id number] [address] [place] [address], [place] [address] Nov, [facility] [address] [id number] [address] [place] [address], [place] [address] Nov, [facility] [address] [id number] [address] [place] [address], [place] [address] Nov, [facility] [address] [id number] [address] [place] [address], [place] [address] Oct, [facility] [address] [id number] [address] [place] [address], [place] [address] Oct, [facility] [address] [id number] [address] [place] [address], [place] [address] 05 Oct, 2012 [facility] [address] [id number] [address] [place] [address], [place] [address] Oct, [facility] [address] [id number] [address] [place] [address], [place] [id number] Sep, [facility] [address] [id number] [address] [place] [address], [place] [address] Sep, [facility] [address] [id number] [address] [place] [address], [place] [address] Sep, [facility] [address] [id number] [address] [place] [address], [place] [address] Sep, [facility] [address] [id number] [address] [place] [address], [place] [address] Sep, [facility] [address] [id number] [address] [place] [address], [place] [address] 15 Sep, 2012 [facility] [address] [id number] [address] [place] [address], [place] [id number] 02 Aug, 2012 [facility] [address] [id number] [address] [place] [address], [place] [address] 26 Jul, 2012 [facility] [address] [id number] [address] [place] [address], [place] [address] 19 Jul, 2012 [facility] [address] [id number] [address] [place] [address], [place] [address] 18 Jul, 2012 [facility] [address] [id number] [address] [place] [address], [place] [address] 14 Jul, 2012 [facility] [address] [id number] [address] [place] [address], [place] [address] 28 Jun, 2012 [facility] [address] [id number] [address] [place] [address], [place] [address] Jun, [facility] [address] [id number] [address] [place] [address], [place] [address] Jun, [facility] [address] [id number] [address] [place] [address], [place] [address] Jun, [facility] [address] [id number] [address] [place] [address], [place] [address] May, [facility] [address] [id number] [address] [place] [address], [place] [address] Apr, [facility] [address] [id number] [address] [place] [address], [place] [address] March, [facility] [address] [id number] [address] [place] [address], [place] [address] March, [facility] [address] [id number] [address] [place] [address], [place] [address] March, [facility] [address] [id number] [address] [place] [address], [place] [address] Feb, [facility] [address] [id number] [address] [place] [address], [place] [address] Feb, [facility] [address] [id number] [address] [place] [address], [place] [address] Jan, [facility] [address] [id number] [address] [place] [address], [place] [address] Jan, [facility] [address] [id number] [address] [place] [address], [place] [address] Jan, [facility] [address] [id number] [address] [place] [address], [place] [address] Dec, [facility] [address] [id number] [address] [place] [address], [place] [address] Dec, [facility] [address] [id number] [address] [place] [address], [place] [address] Nov, [facility] [address] [id number] [address] [place] [address], [place] [address] Nov, [facility] [address] [id number] [address] [place] [id number] 13 Nov, 2011 [facility] [address] [id number] [address] [place] [phone] Nov, [facility] [address] [id number] [address] [place] [phone] Nov, [facility] [address] [id number] [address] [place] [phone] Oct, [facility] [address] [id number] [address] [place] [phone] Oct, [facility] [address] [id number] [address] [place] [phone] Oct, [facility] [address] [id number] [address] [place] [phone] Oct, [facility] [address] [id number] [address] [place] [phone] Sep, [facility] [address] [id number] [address] [place] [phone] Sep, [facility] [address] [id number] [address] [place] [phone] Sep, [facility] [address] [id number] [address] [place] [phone] Aug, [facility] [place] [address] [id number] [address] [place] [phone] Oct, [facility] [place] [address] [id number] [address] [place] [phone] Oct, [facility] [place] [address] [id number] [address] [place] [id number] Oct, [facility] [place] [address] [id number] [address] [place] [phone] Oct, IMMUNIZATIONS No Known Immunizations SOCIAL HISTORY Never Assessed REASON FOR VISIT xanax refill PLAN OF CARE VITAL SIGNS MEDICATIONS Medication Instructions Dosage Frequency Start Date End Date Duration S tatus Xanax 0.25 MG Orally once daily 1 tablet 24h Sep, 30 days Active RESULTS No Results PROCEDURES No Known procedures INSTRUCTIONS MEDICATIONS ADMINISTERED No Known Medications MEDICAL (GENERAL) HISTORY Type Description Date Medical History Guardian requests that we do not explain any treatment to patient! Surgical History No Surgical history information
--- OUTSIDE RECORDS SUMMARY | 2020-04-25 14:58 | XMS REPORT ---
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 Active 59455135 Problem Posttraumatic stress disorder 309.81 Active 73712331 Problem Bipolar disorder, unspecified 296.80 Active 05018636 Problem Attention deficit hyperactivity disorder (ADHD), combi dylon type F90.2 Active [id number] ALLERGIES No Information ENCOUNTERS Encounter Location Date Diagnosis [facility] [address] [facility] [place] [id number] [address] [place] [address] March, [facility] [id number] [place] [place] [address] Jan, 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 requiring routine preventive dental care K08.9 ; Dental examination Z01.20 and Caries K02.9 [facility] [address] [facility] [place] [id number] [address] [place] [address] Jan, Bipolar disorder, unspecifie d F31.9 [facility] [address] [facility] [place] [id number] [address] [place] [address] Dec, Bipolar disorder, unspecifie d F31.9 ; Attention deficit hyperactivity disorder (ADHD), combined type F90.2 and Posttraumatic stress disorder F43.10 [facility] [address] [facility] [place] [id number] [address] [place] [address] Oct, Sore throat J02.9 [facility] [address] [facility] [place] [id number] [address] [place] [address] Oct, [facility] [address] [facility] [place] [id number] [address] [place] [address] Oct, Bipolar disorder, unspecifie d F31.9 [facility] [address] [facility] [id number] [address] [place] [address] [id number] Sep, 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 requiring routine preventive dental care K08.9 [facility] [address] [facility] [place] [id number] [address] [place] [address] Sep, Bipolar disorder, unspecifie d F31.9 ; Attention deficit hyperactivity disorder (ADHD), combined type F90.2 and Posttraumatic stress disorder F43.10 [facility] [address] [facility] [place] [id number] [address] [place] [address] Aug, Lymphadenopathy of left cerv ical region R59.0 [facility] [address] [facility] [place] [id number] [address] [place] [address] Aug, Encounter for immunization Z 23 [facility] [address] [facility] [place] [id number] [address] [place] [address] Aug, Other ctrs (current) dr delacruz therapy Z79.899 [facility] [address] [facility] [place] [id number] [address] [place] [address] Jul, Bipolar disorder, unspecifie d F31.9 [facility] [address] [facility] [place] [id number] [address] [place] [address] Jun, Bipolar disorder, unspecifie d F31.9 [facility] [address] [facility] [place] [id number] [address] [place] [address] Jun, [facility] [address] [facility] [place] [id number] [address] [place] [address] Jun, Bipolar disorder, unspecifie d F31.9 ; Attention deficit hyperactivity disorder (ADHD), combined type F90.2 ; Posttraumatic stress disorder F43.10 and Other assisted (current) drug therapy Z79.899 [facility] [address] [id number] [address] [place] [id number] Jun, Dental examination Z01.20 [facility] [address] [address] May, [facility] [id number] [place] [address] Apr, Bipolar disorder, unspecifie d F31.9 [facility] [address] [address] March, Bipolar disorder, unspecifie d F31.9 ; Attention deficit hyperactivity disorder (ADHD), combined type F90.2 and Posttraumatic stress disorder F43.10 [facility] [address] [address] Feb, [facility] [address] [address] Feb, Insect bite (nonvenomous), l eft knee, initial encounter S80.262A and Bitten or stung by nonvenomous insect and other nonvenomous arthropods, initial encounter W57.XXXA [facility] [address] [address] Feb, Bipolar disorder, unspecifie d F31.9 [facility] [address] [id number] [address] [place] [address] [id number] Feb, Dental examination Z01.20 [facility] [address] [address] Feb, Bipolar disorder, unspecifie d F31.9 ; Attention deficit hyperactivity disorder (ADHD), combined type F90.2 and Posttraumatic stress disorder F43.10 [facility] [address] [id number] [address] [place] [address] [id number] Feb, Dental examination Z01.20 [facility] [address] [address] Jan, Bipolar disorder, unspecifie d F31.9 [facility] [address] [facility] [place] [id number] [address] [place] [address] Jan, Attention deficit hyperactiv ity disorder (ADHD), combined type F90.2 [facility] [address] [id number] [address] [place] [address] Dec, Posttraumatic stress disorde r F43.10 [facility] [address] [facility] [place] [id number] [address] [place] [address] Dec, Posttraumatic stress disorde r F43.10 [facility] [id number] [place] [id number] Nov, Dental examination Z01.20 [facility] [id number] [id number] Nov, Encounter for dental exam an d cleaning w/o abnormal findings Z01.20 [facility] [address] [id number] [place] [address] [id number] Nov, Dental examination Z01.20 [facility] [address] [facility] [place] [id number] [address] [place] [address] Sep, Bipolar disorder, unspecifie d F31.9 ; Posttraumatic stress disorder F43.10 and Attention deficit hyperactivity disorder (ADHD), combined type F90.2 [facility] [address] [facility] [place] [id number] [address] [place] [phone] 09 Aug, 2017 Posttraumatic stress disorde r F43.10 [facility] [address] [facility] [place] [id number] [address] [place] [phone] 15 Jul, 2017 Other assisted (current) dr nubia briceno Z79.899 [facility] [address] [facility] [place] [id number] [address] [place] [phone] 11 Jul, 2017 Bipolar disorder, unspecifie d F31.9 ; Attention deficit hyperactivity disorder (ADHD), combined type F90.2 and Posttraumatic stress disorder F43.10 [facility] [address] [id number] [address] [place] [address] Jun, Bipolar disorder, unspecifie d F31.9 ; Posttraumatic stress disorder F43.10 ; Attention deficit hyperactivity disorder (ADHD), combined type F90.2 and Other ctrs (current) drug therapy Z79.899 [facility] [address] [id number] [address] [place] [address] March, Bipolar disorder, unspecifie d F31.9 ; Posttraumatic stress disorder F43.10 and Attention deficit hyperactivity disorder (ADHD), combined type F90.2 [facility] [address] [id number] [address] [place] [address] Dec, Bipolar disorder, unspecifie d F31.9 ; Posttraumatic stress disorder F43.10 and Attention deficit hyperactivity disorder (ADHD), combined type F90.2 [facility] [address] [id number] [address] [place] [address] Dec, [facility] [address] [id number] [address] [place] [address] Sep, [facility] [address] [id number] [address] [place] [phone] Aug, Bipolar disorder, unspecifie d F31.9 ; Posttraumatic stress disorder F43.10 and Attention deficit hyperactivity disorder (ADHD), combined type F90.2 [facility] [address] [id number] [address] [place] [phone] Jun, [facility] [address] [id number] [address] [place] [phone] March, [facility] [address] [id number] [address] [place] [address] Feb, Bipolar disorder, unspecifie d F31.9 ; Attention deficit hyperactivity disorder (ADHD), combined type F90.2 and Posttraumatic stress disorder F43.10 [facility] [address] [id number] [address] [place] [address] Feb, [facility] [address] [facility] [place] [id number] [address] [place] [phone] Feb, [facility] [address] [facility] [place] [id number] [address] [place] [address] Feb, [facility] [address] [facility] [place] [id number] [address] [place] [phone] Jan, [facility] [address] [id number] [address] [place] [address] [id number] Dec, Dental examination Z01.20 [facility] [address] [facility] [place] [id number] [address] [place] [address] Sep, [facility] [address] [facility] [place] [id number] [address] [place] [address] Sep, Attention deficit hyperactiv ity disorder (ADHD), combined type F90.2 ; Posttraumatic stress disorder F43.10 and Bipolar disorder, unspecified F31.9 [facility] [address] [facility] [place] [id number] [address] [place] [phone] Aug, [facility] [address] [facility] [place] [id number] [address] [place] [phone] Aug, [facility] [address] [facility] [place] [id number] [address] [place] [phone] Jul, [facility] [address] [facility] [place] [id number] [address] [place] [address] May, Bipolar disorder, unspecifie d 296.80 ; 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.00 and Posttraumatic stress disorder 309.81 [facility] [address] [facility] [place] [id number] [address] [place] [phone] May, [facility] [address] [facility] [place] [id number] [address] [place] [phone] May, [facility] [address] [facility] [place] [id number] [address] [place] [phone] May, [facility] [address] [facility] [place] [id number] [address] [place] [phone] Apr, [facility] [address] [id number] [address] [place] [address], [place] [address] Apr, [facility] [address] [id number] [address] [place] [address], [place] [address] Apr, [facility] [address] [id number] [address] [place] [address], [place] [address] March, [facility] [address] [id number] [address] [place] [address], [place] [address] March, [facility] [address] [id number] [address] [place] [address], [place] [address] March, [facility] [address] [id number] [address] [place] [address], [place] [address] Feb, [facility] [address] [id number] [address] [place] [address], [place] [address] Feb, [facility] [address] [id number] [address] [place] [address], [place] [address] Jan, [facility] [address] [id number] [address] [place] [address], [place] [address] Jan, [facility] [address] [id number] [address] [place] [address], [place] [address] Jan, [facility] [address] [id number] [address] [place] [address], [place] [address] Jan, [facility] [address] [id number] [address] [place] [address], [place] [address] Jan, [facility] [address] [id number] [address] [place] [address], [place] [address] Jan, [facility] [address] [id number] [address] [place] [address], [place] [address] Jan, [facility] [address] [id number] [address] [place] [address], [place] [address] Jan, [facility] [address] [id number] [address] [place] [address], [place] [address] Jan, 2014 [facility] [address] [id number] [address] [place] [address], [place] [address] Jan, 2014 [facility] [address] [id number] [address] [place] [address], [place] [address] Dec, 2014 [facility] [address] [id number] [address] [place] [address], [place] [address] Dec, 2014 [facility] [address] [id number] [address] [place] [address], [place] [address] Dec, 2014 [facility] [address] [id number] [address] [place] [address], [place] [address] Dec, 2014 [facility] [address] [id number] [address] [place] [address], [place] [address] Oct, [facility] [address] [id number] [address] [place] [address], [place] [address] Oct, [facility] [address] [id number] [address] [place] [address], [place] [address] Oct, [facility] [address] [id number] [address] [place] [address], [place] [address] Oct, [facility] [address] [id number] [address] [place] [address], [place] [address] Oct, [facility] [address] [id number] [address] [place] [address], [place] [address] Oct, [facility] [address] [id number] [address] [place] [address], [place] [address] Oct, [facility] [address] [id number] [address] [place] [address], [place] [address] Sep, [facility] [address] [id number] [address] [place] [address], [place] [address] Sep, [facility] [address] [id number] [address] [place] [address], [place] [address] Sep, [facility] [address] [id number] [address] [place] [address], [place] [address] Sep, [facility] [address] [id number] [address] [place] [address], [place] [address] Sep, [facility] [address] [id number] [address] [place] [address], [place] [address] Sep, [facility] [address] [id number] [address] [place] [address], [place] [address] Sep, [facility] [address] [id number] [address] [place] [address], [place] [address] Sep, [facility] [address] [id number] [address] [place] [address], [place] [address] Aug, [facility] [address] [id number] [address] [place] [address], [place] [address] Aug, [facility] [address] [id number] [address] [place] [address], [place] [address] Aug, [facility] [address] [id number] [address] [place] [address], [place] [address] Aug, [facility] [address] [id number] [address] [place] [address], [place] [address] Jul, [facility] [address] [id number] [address] [place] [address], [place] [address] Jul, [facility] [address] [id number] [address] [place] [address], [place] [address] Jul, [facility] [address] [id number] [address] [place] [address], [place] [address] Jul, [facility] [address] [id number] [address] [place] [address], [place] [address] Jun, [facility] [address] [id number] [address] [place] [address], [place] [address] Jun, [facility] [address] [id number] [address] [place] [address] Jun, [facility] [address] [id number] [address] [place] [address], [place] [address] Jun, [facility] [address] [id number] [address] [place] [address], [place] [address] May, [facility] [address] [id number] [address] [place] [address], [place] [address] May, [facility] [address] [id number] [address] [place] [address], [place] [address] May, [facility] [address] [id number] [address] [place] [address], [place] [address] May, [facility] [address] [id number] [address] [place] [address], [place] [address] Apr, [facility] [address] [id number] [address] [place] [address], [place] [address] Apr, [facility] [address] [id number] [address] [place] [address], [place] [address] Apr, [facility] [address] [id number] [address] [place] [address], [place] [address] Apr, [facility] [address] [id number] [address] [place] [address], [place] [address] Apr, [facility] [address] [id number] [address] [place] [address], [place] [address] Apr, [facility] [address] [id number] [address] [place] [address], [place] [address] Apr, [facility] [address] [id number] [address] [place] [address], [place] [address] Apr, [facility] [address] [id number] [address] [place] [address], [place] [address] Apr, [facility] [address] [id number] [address] [place] [address], [place] [address] Apr, [facility] [address] [id number] [address] [place] [address], [place] [address] Apr, [facility] [address] [id number] [address] [place] [address], [place] [address] Apr, [facility] [address] [id number] [address] [place] [address], [place] [address] Apr, [facility] [address] [id number] [address] [place] [address], [place] [address] March, [facility] [address] [id number] [address] [place] [address], [place] [address] March, [facility] [address] [id number] [address] [place] [address], [place] [address] March, [facility] [address] [id number] [address] [place] [address], [place] [address] March, [facility] [address] [id number] [address] [place] [address], [place] [address] Jan, [facility] [address] [id number] [address] [place] [address], [place] [address] Jan, [facility] [address] [id number] [address] [place] [address], [place] [address] Jan, [facility] [address] [id number] [address] [place] [address], [place] [address] Jan, [facility] [address] [id number] [address] [place] [address], [place] [address] Jan, [facility] [address] [id number] [address] [place] [address], [place] [address] Jan, [facility] [address] [id number] [address] [place] [address], [place] [address] Dec, [facility] [address] [id number] [address] [place] [address], [place] [address] Dec, [facility] [address] [id number] [address] [place] [address], [place] [address] Dec, [facility] [address] [id number] [address] [place] [address], [place] [address] Dec, [facility] [address] [id number] [address] [place] [address], [place] [address] Nov, [facility] [address] [id number] [address] [place] [address], [place] [address] Nov, [facility] [address] [id number] [address] [place] [address], [place] [address] Nov, [facility] [address] [id number] [address] [place] [address], [place] [address] Nov, [facility] [address] [id number] [address] [place] [address], [place] [address] Oct, [facility] [address] [id number] [address] [place] [address], [place] [address] Oct, [facility] [address] [id number] [address] [place] [address], [place] [address] Oct, [facility] [address] [id number] [address] [place] [address], [place] [address] Oct, [facility] [address] [id number] [address] [place] [address], [place] [address] Oct, [facility] [address] [id number] [address] [place] [address], [place] [address] Oct, [facility] [address] [id number] [address] [place] [address], [place] [address] Oct, [facility] [address] [id number] [address] [place] [address], [place] [address] Oct, [facility] [address] [id number] [address] [place] [address], [place] [address] Sep, [facility] [address] [id number] [address] [place] [address], [place] [address] Sep, [facility] [address] [id number] [address] [place] [address], [place] [address] 27 Jul, 2013 [facility] [address] [id number] [address] [place] [address], [place] [address] 12 Jul, 2013 [facility] [address] [id number] [address] [place] [address], [place] [address] 09 Jul, 2013 [facility] [address] [id number] [address] [place] [address], [place] [address] 07 Jul, 2013 [facility] [address] [id number] [address] [place] [address], [place] [address] Jun, [facility] [address] [id number] [address] [place] [address], [place] [address] Jun, [facility] [address] [id number] [address] [place] [address], [place] [address] May, [facility] [address] [id number] [address] [place] [address], [place] [address] Apr, [facility] [address] [id number] [address] [place] [address], [place] [address] Apr, [facility] [address] [id number] [address] [place] [address], [place] [address] Apr, [facility] [address] [id number] [address] [place] [address], [place] [address] March, [facility] [address] [id number] [address] [place] [address], [place] [address] March, [facility] [address] [id number] [address] [place] [address], [place] [address] Feb, [facility] [address] [id number] [address] [place] [address], [place] [address] Jan, [facility] [address] [id number] [address] [place] [address], [place] [address] Jan, [facility] [address] [id number] [address] [place] [address], [place] [address] Dec, [facility] [address] [id number] [address] [place] [address], [place] [address] Dec, [facility] [address] [id number] [address] [place] [address], [place] [address] Nov, [facility] [address] [id number] [address] [place] [address], [place] [address] Nov, [facility] [address] [id number] [address] [place] [address], [place] [address] Nov, [facility] [address] [id number] [address] [place] [address], [place] [address] Oct, [facility] [address] [id number] [address] [place] [address], [place] [address] Oct, [facility] [address] [id number] [address] [place] [address], [place] [address] Oct, [facility] [address] [id number] [address] [place] [address], [place] [address] Oct, [facility] [address] [id number] [address] [place] [address], [place] [address] Sep, [facility] [address] [id number] [address] [place] [address], [place] [address] Sep, [facility] [address] [id number] [address] [place] [address], [place] [address] Sep, [facility] [address] [id number] [address] [place] [address], [place] [address] Sep, [facility] [address] [id number] [address] [place] [address], [place] [address] Sep, [facility] [address] [id number] [address] [place] [address], [place] [address] Sep, [facility] [address] [id number] [address] [place] [address], [place] [address] Aug, [facility] [address] [id number] [address] [place] [address], [place] [address] 26 Jul, 2012 [facility] [address] [id number] [address] [place] [address], [place] [address] 19 Jul, 2012 [facility] [address] [id number] [address] [place] [address], [place] [address] 18 Jul, 2012 [facility] [address] [id number] [address] [place] [address], [place] [address] 14 Jul, 2012 [facility] [address] [id number] [address] [place] [address], [place] [address] Jun, [facility] [address] [id number] [address] [place] [address], [place] [address] Jun, [facility] [address] [id number] [address] [place] [address], [place] [address] Jun, [facility] [address] [id number] [address] [place] [address], [place] [address] Jun, [facility] [address] [id number] [address] [place] [address], [place] [address] May, [facility] [address] [id number] [address] [place] [address], [place] [address] Apr, [facility] [address] [id number] [address] [place] [address], [place] [address] March, [facility] [address] [id number] [address] [place] [address], [place] [address] March, [facility] [address] [id number] [address] [place] [address], [place] [address] March, [facility] [address] [id number] [address] [place] [address], [place] [address] Feb, [facility] [address] [id number] [address] [place] [address], [place] [address] Feb, [facility] [address] [id number] [address] [place] [address], [place] [address] Jan, [facility] [address] [id number] [address] [place] [address], [place] [address] Jan, [facility] [address] [id number] [address] [place] [address], [place] [address] Jan, [facility] [address] [id number] [address] [place] [address], [place] [address] Dec, [facility] [address] [id number] [address] [place] [address], [place] [address] Dec, [facility] [address] [id number] [address] [place] [address], [place] [address] Nov, [facility] [address] [id number] [address] [place] [address], [place] [address] Nov, [facility] [address] [id number] [address] [place] [address], [place] [address] Nov, [facility] [address] [id number] [address] [place] [address], [place] [address] Nov, [facility] [address] [id number] [address] [place] [address], [place] [address] Nov, [facility] [address] [id number] [address] [place] [address], [place] [address] Oct, [facility] [address] [id number] [address] [place] [address], [place] [address] Oct, [facility] [address] [id number] [address] [place] [address], [place] [address] Oct, [facility] [address] [id number] [address] [place] [address], [place] [address] Oct, [facility] [address] [id number] [address] [place] [address], [place] [address] Sep, [facility] [address] [id number] [address] [place] [address], [place] [address] Sep, [facility] [address] [id number] [address] [place] [address] Sep, [facility] [address] [facility] [place] [place] [id number] [address] [place] [address] Aug, [facility] [address] [facility] [place] [id number] [address] [place] [address] Oct, [facility] [address] [facility] [place] [id number] [address] [place] [address] Oct, [facility] [address] [facility] [place] [id number] [address] [place] [address] Oct, [facility] [address] [facility] [place] [id number] [address] [place] [address] Oct, IMMUNIZATIONS No Known Immunizations SOCIAL HISTORY Never Assessed REASON FOR VISIT [facility] [place] VITAL SIGNS MEDICATIONS Unknown Medications RESULTS No Results PROCEDURES No Known procedures INSTRUCTIONS MEDICATIONS ADMINISTERED No Known Medications MEDICAL (GENERAL) HISTORY Type Description Date Medical History Guardian requests that we do not explain any treatment to patient! Surgical History No Surgical history information
--- OUTSIDE RECORDS SUMMARY | 2020-04-25 14:58 | XMS REPORT ---
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 Operator Name Role Phone Migration, Doctor Unavailable Unavailable PROBLEMS Type Condition ICD9-CM Code ACT49-SV Code Onset Dates Condition S tatus SNOMED Code Problem Encounter for long-term (current) use of other medications V58.69 Active 313386136 Problem Posttraumatic stress disorder F43.10 Active 95887478 Problem Bipolar disorder, unspecified F31.9 Active 65045124 Problem 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 Active 16705596 Problem Posttraumatic stress disorder 309.81 Active 19196670 Problem Bipolar disorder, unspecified 296.80 Active 40598409 Problem Attention deficit hyperactivity disorder (ADHD), combi ydlon type F90.2 Active [id number] ALLERGIES No Information ENCOUNTERS Encounter Location Date Diagnosis [facility] [address] [facility] [id number] [address] [place] [id number] March, [facility] [id number] [place] [address] Jan, 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 requiring routine preventive dental care K08.9 ; Dental examination Z01.20 and Caries K02.9 [facility] [address] [facility] [id number] [address] [place] [phone] Jan, Bipolar disorder, unspecifie d F31.9 [facility] [address] [facility] [id number] [address] [place] [address] Dec, Bipolar disorder, unspecifie d F31.9 ; Attention deficit hyperactivity disorder (ADHD), combined type F90.2 and Posttraumatic stress disorder F43.10 [facility] [address] [facility] [id number] [address] [place] [phone] Oct, Sore throat J02.9 [facility] [address] [facility] [id number] [address] [place] [phone] Oct, [facility] [address] [facility] [id number] [address] [place] [address] Oct, Bipolar disorder, unspecifie d F31.9 [facility] [address] [facility] [id number] [address] [place] [id number] Sep, 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 requiring routine preventive dental care K08.9 [facility] [address] [facility] [id number] [address] [place] [phone] Sep, Bipolar disorder, unspecifie d F31.9 ; Attention deficit hyperactivity disorder (ADHD), combined type F90.2 and Posttraumatic stress disorder F43.10 [facility] [address] [facility] [id number] [address] [place] [phone] Aug, Lymphadenopathy of left cerv ical region R59.0 [facility] [address] [facility] [id number] [address] [place] [address] Aug, Encounter for immunization Z 23 [facility] [address] [facility] [id number] [address] [place] [address] Aug, Other terminologist (current) dr delacruz therapy Z79.899 [facility] [address] [facility] [id number] [address] [place] [address] Jul, Bipolar disorder, unspecifie d F31.9 [facility] [address] [facility] [id number] [address] [place] [id number] Jun, Bipolar disorder, unspecifie d F31.9 [facility] [address] [facility] [id number] [address] [place] [phone] Jun, [facility] [address] [facility] [id number] [address] [place] [address] Jun, Bipolar disorder, unspecifie d F31.9 ; Attention deficit hyperactivity disorder (ADHD), combined type F90.2 ; Posttraumatic stress disorder F43.10 and Other 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 (current) drug therapy Z79.899 [facility] [address] [id number] [address] [place] [id number] Jun, Dental examination Z01.20 [facility] [address] [id number] May, [facility] [id number] [place] [address] Apr, Bipolar disorder, unspecifie d F31.9 [facility] [address] [address] March, Bipolar disorder, unspecifie d F31.9 ; Attention deficit hyperactivity disorder (ADHD), combined type F90.2 and Posttraumatic stress disorder F43.10 [facility] [address] [address] Feb, [facility] [address] [id number] Feb, Insect bite (nonvenomous), l eft knee, initial encounter S80.262A and Bitten or stung by nonvenomous insect and other nonvenomous arthropods, initial encounter W57.XXXA [facility] [address] [address] Feb, Bipolar disorder, unspecifie d F31.9 [facility] [address] [id number] [address] [place] [address] [id number] Feb, Dental examination Z01.20 [facility] [address] [address] Feb, Bipolar disorder, unspecifie d F31.9 ; Attention deficit hyperactivity disorder (ADHD), combined type F90.2 and Posttraumatic stress disorder F43.10 [facility] [address] [id number] [address] [place] [address] [id number] Feb, Dental examination Z01.20 [facility] [address] [address] Jan, Bipolar disorder, unspecifie d F31.9 [facility] [address] [facility] [id number] [address] [place] [phone] Jan, Attention deficit hyperactiv ity disorder (ADHD), combined type F90.2 [facility] [address] [id number] [address] [place] [address] Dec, Posttraumatic stress disorde r F43.10 [facility] [address] [facility] [id number] [address] [place] [address] Dec, Posttraumatic stress disorde r F43.10 [facility] [address] [id number] [place], [place] [id number] Nov, Dental examination Z01.20 [facility] [address] [id number] [id number] Nov, Encounter for dental exam an d cleaning w/o abnormal findings Z01.20 [facility] [address] [id number] [place] [address] [id number] Nov, Dental examination Z01.20 [facility] [address] [facility] [id number] [address] [place] [phone] Sep, Bipolar disorder, unspecifie d F31.9 ; Posttraumatic stress disorder F43.10 and Attention deficit hyperactivity disorder (ADHD), combined type F90.2 [facility] [address] [facility] [id number] [address] [place] [phone] 09 Aug, 2017 Posttraumatic stress disorde r F43.10 [facility] [address] [facility] [id number] [address] [place] [phone] 15 Jul, 2017 Other 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 (current) dr nubia briceno Z79.899 [facility] [address] [facility] [id number] [address] [place] [phone] 11 Jul, 2017 Bipolar disorder, unspecifie d F31.9 ; Attention deficit hyperactivity disorder (ADHD), combined type F90.2 and Posttraumatic stress disorder F43.10 [facility] [address] [id number] [address] [place] [address] Jun, Bipolar disorder, unspecifie d F31.9 ; Posttraumatic stress disorder F43.10 ; Attention deficit hyperactivity disorder (ADHD), combined type F90.2 and Other terminologist (current) drug therapy Z79.899 [facility] [address] [id number] [address] [place] [phone] March, Bipolar disorder, unspecifie d F31.9 ; Posttraumatic stress disorder F43.10 and Attention deficit hyperactivity disorder (ADHD), combined type F90.2 [facility] [address] [id number] [address] [place] [address] Dec, Bipolar disorder, unspecifie d F31.9 ; Posttraumatic stress disorder F43.10 and Attention deficit hyperactivity disorder (ADHD), combined type F90.2 [facility] [address] [id number] [address] [place] [id number] Dec, [facility] [address] [id number] [address] [place] [address] Sep, [facility] [address] [id number] [address] [place] [phone] Aug, Bipolar disorder, unspecifie d F31.9 ; Posttraumatic stress disorder F43.10 and Attention deficit hyperactivity disorder (ADHD), combined type F90.2 [facility] [address] [id number] [address] [place] [phone] Jun, [facility] [address] [id number] [address] [place] [phone] March, [facility] [address] [id number] [address] [place] [id number] Feb, Bipolar disorder, unspecifie d F31.9 ; Attention deficit hyperactivity disorder (ADHD), combined type F90.2 and Posttraumatic stress disorder F43.10 [facility] [address] [id number] [address] [place] [phone] Feb, [facility] [address] [facility] [id number] [address] [place] [phone] Feb, [facility] [address] [facility] [id number] [address] [place] [phone] Feb, [facility] [address] [facility] [id number] [address] [place] [phone] Jan, [facility] [address] [id number] [address] [place] [address] [id number] Dec, Dental examination Z01.20 [facility] [address] [facility] [id number] [address] [place] [phone] Sep, [facility] [address] [facility] [id number] [address] [place] [phone] Sep, Attention deficit hyperactiv ity disorder (ADHD), combined type F90.2 ; Posttraumatic stress disorder F43.10 and Bipolar disorder, unspecified F31.9 [facility] [address] [facility] [id number] [address] [place] [phone] Aug, [facility] [address] [facility] [id number] [address] [place] [phone] Aug, [facility] [address] [facility] [id number] [address] [place] [phone] Jul, [facility] [address] [facility] [id number] [address] [place] [address] May, Bipolar disorder, unspecifie d 296.80 ; 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.00 and Posttraumatic stress disorder 309.81 [facility] [address] [facility] [id number] [address] [place] [phone] May, [facility] [address] [facility] [id number] [address] [place] [phone] May, [facility] [address] [facility] [id number] [address] [place] [phone] May, [facility] [address] [facility] [id number] [address] [place] [phone] Apr, [facility] [address] [id number] [address] [place] [address], [place] [address] Apr, [facility] [address] [id number] [address] [place] [address], [place] [address] Apr, [facility] [address] [id number] [address] [place] [address], [place] [address] March, [facility] [address] [id number] [address] [place] [address], [place] [address] March, [facility] [address] [id number] [address] [place] [address], [place] [address] March, [facility] [address] [id number] [address] [place] [address], [place] [address] Feb, [facility] [address] [id number] [address] [place] [address], [place] [address] Feb, [facility] [address] [id number] [address] [place] [address], [place] [address] Jan, [facility] [address] [id number] [address] [place] [address], [place] [address] Jan, [facility] [address] [id number] [address] [place] [address], [place] [address] Jan, [facility] [address] [id number] [address] [place] [address], [place] [address] Jan, [facility] [address] [id number] [address] [place] [address], [place] [address] Jan, [facility] [address] [id number] [address] [place] [address], [place] [address] Jan, [facility] [address] [id number] [address] [place] [address], [place] [address] Jan, [facility] [address] [id number] [address] [place] [address], [place] [address] Jan, [facility] [address] [id number] [address] [place] [address], [place] [address] Jan, 2014 [facility] [address] [id number] [address] [place] [address], [place] [address] Jan, 2014 [facility] [address] [id number] [address] [place] [address], [place] [address] Dec, 2014 [facility] [address] [id number] [address] [place] [address], [place] [address] Dec, 2014 [facility] [address] [id number] [address] [place] [address], [place] [address] Dec, 2014 [facility] [address] [id number] [address] [place] [address], [place] [address] Dec, 2014 [facility] [address] [id number] [address] [place] [address], [place] [address] Oct, [facility] [address] [id number] [address] [place] [address], [place] [address] Oct, [facility] [address] [id number] [address] [place] [address], [place] [address] Oct, [facility] [address] [id number] [address] [place] [address], [place] [address] Oct, [facility] [address] [id number] [address] [place] [address], [place] [address] Oct, [facility] [address] [id number] [address] [place] [address], [place] [address] Oct, [facility] [address] [id number] [address] [place] [address], [place] [address] Oct, [facility] [address] [id number] [address] [place] [address], [place] [address] Sep, [facility] [address] [id number] [address] [place] [address], [place] [address] Sep, [facility] [address] [id number] [address] [place] [address], [place] [address] Sep, [facility] [address] [id number] [address] [place] [address], [place] [address] Sep, [facility] [address] [id number] [address] [place] [address], [place] [address] Sep, [facility] [address] [id number] [address] [place] [address], [place] [address] Sep, [facility] [address] [id number] [address] [place] [address], [place] [address] Sep, [facility] [address] [id number] [address] [place] [address], [place] [address] Sep, [facility] [address] [id number] [address] [place] [address], [place] [address] Aug, [facility] [address] [id number] [address] [place] [address], [place] [address] Aug, [facility] [address] [id number] [address] [place] [address], [place] [address] Aug, [facility] [address] [id number] [address] [place] [address], [place] [address] Aug, [facility] [address] [id number] [address] [place] [address], [place] [address] Jul, [facility] [address] [id number] [address] [place] [address], [place] [address] Jul, [facility] [address] [id number] [address] [place] [address], [place] [address] Jul, [facility] [address] [id number] [address] [place] [address], [place] [address] Jul, [facility] [address] [id number] [address] [place] [address], [place] [address] Jun, [facility] [address] [id number] [address] [place] [address], [place] [address] Jun, [facility] [address] [id number] [facility] [place] [address] Jun, [facility] [address] [id number] [address] [place] [address], [place] [address] Jun, [facility] [address] [id number] [address] [place] [address], [place] [address] May, [facility] [address] [id number] [address] [place] [address], [place] [address] May, [facility] [address] [id number] [address] [place] [address], [place] [address] May, [facility] [address] [id number] [address] [place] [address], [place] [address] May, [facility] [address] [id number] [address] [place] [address], [place] [address] Apr, [facility] [address] [id number] [address] [place] [address], [place] [address] Apr, [facility] [address] [id number] [address] [place] [address], [place] [address] Apr, [facility] [address] [id number] [address] [place] [address], [place] [address] Apr, [facility] [address] [id number] [address] [place] [address], [place] [address] Apr, [facility] [address] [id number] [address] [place] [address], [place] [address] Apr, [facility] [address] [id number] [address] [place] [address], [place] [address] Apr, [facility] [address] [id number] [address] [place] [address], [place] [address] Apr, [facility] [address] [id number] [address] [place] [address], [place] [address] Apr, [facility] [address] [id number] [address] [place] [address], [place] [address] Apr, [facility] [address] [id number] [address] [place] [address], [place] [address] Apr, [facility] [address] [id number] [address] [place] [address], [place] [address] Apr, [facility] [address] [id number] [address] [place] [address], [place] [address] Apr, [facility] [address] [id number] [address] [place] [address], [place] [address] March, [facility] [address] [id number] [address] [place] [address], [place] [address] March, [facility] [address] [id number] [address] [place] [address], [place] [address] March, [facility] [address] [id number] [address] [place] [address], [place] [address] March, [facility] [address] [id number] [address] [place] [address], [place] [address] Jan, [facility] [address] [id number] [address] [place] [address], [place] [address] Jan, [facility] [address] [id number] [address] [place] [address], [place] [address] Jan, [facility] [address] [id number] [address] [place] [address], [place] [address] Jan, [facility] [address] [id number] [address] [place] [address], [place] [address] Jan, [facility] [address] [id number] [address] [place] [address], [place] [address] Jan, [facility] [address] [id number] [address] [place] [address], [place] [address] Dec, [facility] [address] [id number] [address] [place] [address], [place] [address] Dec, [facility] [address] [id number] [address] [place] [address], [place] [address] Dec, [facility] [address] [id number] [address] [place] [address], [place] [address] Dec, [facility] [address] [id number] [address] [place] [address], [place] [address] Nov, [facility] [address] [id number] [address] [place] [address], [place] [address] Nov, [facility] [address] [id number] [address] [place] [address], [place] [address] Nov, [facility] [address] [id number] [address] [place] [address], [place] [address] Nov, [facility] [address] [id number] [address] [place] [address], [place] [address] Oct, [facility] [address] [id number] [address] [place] [address], [place] [address] Oct, [facility] [address] [id number] [address] [place] [address], [place] [address] Oct, [facility] [address] [id number] [address] [place] [address], [place] [address] Oct, [facility] [address] [id number] [address] [place] [address], [place] [address] Oct, [facility] [address] [id number] [address] [place] [address], [place] [address] Oct, [facility] [address] [id number] [address] [place] [address], [place] [address] Oct, [facility] [address] [id number] [address] [place] [address], [place] [address] Oct, [facility] [address] [id number] [address] [place] [address], [place] [address] Sep, [facility] [address] [id number] [address] [place] [address], [place] [address] Sep, [facility] [address] [id number] [address] [place] [address], [place] [address] 27 Jul, 2013 [facility] [address] [id number] [address] [place] [address], [place] [address] 12 Jul, 2013 [facility] [address] [id number] [address] [place] [address], [place] [address] 09 Jul, 2013 [facility] [address] [id number] [address] [place] [address], [place] [address] 07 Jul, 2013 [facility] [address] [id number] [address] [place] [address], [place] [address] Jun, [facility] [address] [id number] [address] [place] [address], [place] [address] Jun, [facility] [address] [id number] [address] [place] [address], [place] [address] May, [facility] [address] [id number] [address] [place] [address], [place] [address] Apr, [facility] [address] [id number] [address] [place] [address], [place] [address] Apr, [facility] [address] [id number] [address] [place] [address], [place] [address] Apr, [facility] [address] [id number] [address] [place] [address], [place] [address] March, [facility] [address] [id number] [address] [place] [address], [place] [address] March, [facility] [address] [id number] [address] [place] [address], [place] [address] Feb, [facility] [address] [id number] [address] [place] [address], [place] [address] Jan, [facility] [address] [id number] [address] [place] [address], [place] [address] Jan, [facility] [address] [id number] [address] [place] [address], [place] [address] Dec, [facility] [address] [id number] [address] [place] [address], [place] [address] Dec, [facility] [address] [id number] [address] [place] [place] [id number], [place] [address] Nov, [facility] [address] [id number] [address] [place] [address], [place] [address] Nov, [facility] [address] [id number] [address] [place] [address], [place] [address] Nov, [facility] [address] [id number] [address] [place] [address], [place] [address] Oct, [facility] [address] [id number] [address] [place] [address], [place] [address] Oct, [facility] [address] [id number] [address] [place] [address], [place] [address] Oct, [facility] [address] [id number] [address] [place] [address], [place] [address] Oct, [facility] [address] [id number] [address] [place] [address], [place] [address] Sep, [facility] [address] [id number] [address] [place] [address], [place] [address] Sep, [facility] [address] [id number] [address] [place] [address], [place] [address] Sep, [facility] [address] [id number] [address] [place] [address], [place] [address] Sep, [facility] [address] [id number] [address] [place] [address], [place] [address] Sep, [facility] [address] [id number] [address] [place] [address], [place] [address] Sep, [facility] [address] [id number] [address] [place] [address], [place] [address] Aug, [facility] [address] [id number] [address] [place] [address], [place] [address] 26 Jul, 2012 [facility] [address] [id number] [address] [place] [address], [place] [address] 19 Jul, 2012 [facility] [address] [id number] [address] [place] [address], [place] [address] 18 Jul, 2012 [facility] [address] [id number] [address] [place] [address], [place] [address] 14 Jul, 2012 [facility] [address] [id number] [address] [place] [address], [place] [address] Jun, [facility] [address] [id number] [address] [place] [address], [place] [address] Jun, [facility] [address] [id number] [address] [place] [address], [place] [address] Jun, [facility] [address] [id number] [address] [place] [address], [place] [address] Jun, [facility] [address] [id number] [address] [place] [address], [place] [address] May, [facility] [address] [id number] [address] [place] [address], [place] [address] Apr, [facility] [address] [id number] [address] [place] [address], [place] [address] March, [facility] [address] [id number] [address] [place] [address], [place] [address] March, [facility] [address] [id number] [address] [place] [address], [place] [address] March, [facility] [address] [id number] [address] [place] [address], [place] [address] Feb, [facility] [address] [id number] [address] [place] [address], [place] [address] Feb, [facility] [address] [id number] [address] [place] [address], [place] [address] Jan, [facility] [address] [id number] [address] [place] [address], [place] [address] Jan, [facility] [address] [id number] [address] [place] [address], [place] [address] Jan, [facility] [address] [id number] [address] [place] [address], [place] [address] Dec, [facility] [address] [id number] [address] [place] [address], [place] [address] Dec, [facility] [address] [id number] [address] [place] [address], [place] [address] Nov, [facility] [address] [id number] [address] [place] [address], [place] [address] Nov, [facility] [address] [id number] [address] [place] [address], [place] [address] Nov, [facility] [address] [id number] [address] [place] [address], [place] [address] Nov, [facility] [address] [id number] [address] [place] [address], [place] [address] Nov, [facility] [address] [id number] [address] [place] [address], [place] [address] Oct, [facility] [address] [id number] [address] [place] [address], [place] [address] Oct, [facility] [address] [id number] [address] [place] [address], [place] [address] Oct, [facility] [address] [id number] [address] [place] [address], [place] [address] Oct, [facility] [address] [id number] [address] [place] [address], [place] [address] Sep, [facility] [address] [id number] [address] [place] [address], [place] [address] Sep, [facility] [address] [id number] [address] [place] [id number] Sep, [facility] [address] [id number] [address] [place] [id number] Aug, [facility] [address] [id number] [address] [place] [phone] Oct, [facility] [address] [facility] [id number] [address] [place] [phone] Oct, [facility] [address] [facility] [id number] [address] [place] [id number] Oct, [facility] [address] [facility] [id number] [address] [place] [phone] Oct, IMMUNIZATIONS No Known Immunizations SOCIAL HISTORY Never Assessed REASON FOR VISIT [facility] [place] PLAN OF CARE VITAL SIGNS MEDICATIONS Medication Instructions Dosage Frequency Start Date End Date Duration S tatus Xanax 0.25 mg 1 tablet by Oral route 2 times per day f or anxiety Jan, Active Intuniv 2 mg 1 tablet by Oral route 1 time per day 09 Ma r, 2014 Active Abilify 15 mg 1 tablet by Oral route 1 time per day 09 M , 2014 Active trazodone 100 mg 1 Tablet by Oral route 1 time per day 0 Jan, Active Enablex by Oral route Aug, Activ e clonidine 0.1 mg 1 tablet by Oral rou te 2 times per day PRN take when feeling like having "visions" Jan, Active Zyprexa Zydis 5 mg 1 Tablet, Rapid Diss olve by Sublingual route 1 time per day in evening prn agitation. Jan, Ac tive Claritin 10 mg 1 Tablet by Oral route 1 time per day Jun, Active RESULTS No Results PROCEDURES No Known procedures INSTRUCTIONS MEDICATIONS ADMINISTERED No Known Medications MEDICAL (GENERAL) HISTORY Type Description Date Medical History Guardian requests that we do not explain any treatment to patient! Surgical History No Surgical history information
--- OUTSIDE RECORDS SUMMARY | 2020-04-25 14:58 | XMS REPORT ---
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 Name Role Phone CADEN OGLESBY Unavailable Unavailable PROBLEMS Type Condition ICD9-CM Code KYB35-GT Code Onset Dates Condition S tatus SNOMED Code Problem Encounter for long-term (current) use of other medications V58.69 Active 411731631 Problem Bipolar disorder, unspecified F31.9 Active 46121718 Problem Posttraumatic stress disorder F43.10 Active 18863846 Problem Posttraumatic stress disorder 309.81 Active 65817953 Problem 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 Active 84739506 Problem Attention deficit hyperactivity disorder (ADHD), combi dylon type F90.2 Active 166512602 Problem Bipolar disorder, unspecified 296.80 Active 87329822 ALLERGIES No Known Allergies ENCOUNTERS Encounter Location Date Diagnosis [facility] [address] [facility] [id number] [address] [place] [phone] Dec, [facility] [address] [facility] [id number] [address] [place] [address] [id number] Sep, 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 requiring routine preventive dental care K08.9 [facility] [address] [facility] [id number] [address] [place] [address] Sep, Bipolar disorder, unspecifie d F31.9 ; Attention deficit hyperactivity disorder (ADHD), combined type F90.2 and Posttraumatic stress disorder F43.10 [facility] [address] [facility] [id number] [address] [place] [phone] Aug, Lymphadenopathy of left cerv ical region R59.0 [facility] [address] [facility] [id number] [address] [place] [phone] Aug, Encounter for immunization Z 23 [facility] [address] [facility] [id number] [address] [place] [address] Aug, 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 [facility] [address] [facility] [id number] [address] [place] [address] Jul, Bipolar disorder, unspecifie d F31.9 [facility] [address] [facility] [id number] [address] [place] [address] Jun, Bipolar disorder, unspecifie d F31.9 [facility] [address] [facility] [id number] [address] [place] [address] Jun, [facility] [address] [facility] [id number] [address] [place] [address] Jun, Bipolar disorder, unspecifie d F31.9 ; Attention deficit hyperactivity disorder (ADHD), combined type F90.2 ; Posttraumatic stress disorder F43.10 and Other nursing home (current) drug therapy Z79.899 [facility] [address] [id number] [address] [place] [address] [id number] Jun, Dental examination Z01.20 [facility] [address] [facility] [id number] [address] [place] [address] May, [facility] [address] [facility] [id number] [address] [place] [phone] Apr, Bipolar disorder, unspecifie d F31.9 [facility] [address] [facility] [id number] [address] [place] [address] March, Bipolar disorder, unspecifie d F31.9 ; Attention deficit hyperactivity disorder (ADHD), combined type F90.2 and Posttraumatic stress disorder F43.10 [facility] [address] [facility] [id number] [address] [place] [address] Feb, [facility] [address] [facility] [id number] [address] [place] [address] Feb, Insect bite (nonvenomous), l eft knee, initial encounter S80.262A and Bitten or stung by nonvenomous insect and other nonvenomous arthropods, initial encounter W57.XXXA [facility] [address] [facility] [id number] [address] [place] [phone] Feb, Bipolar disorder, unspecifie d F31.9 [facility] [address] [facility] [id number] [address] [place] [address] [id number] Feb, Dental examination Z01.20 [facility] [address] [place] [id number] [place] [address] Feb, Bipolar disorder, unspecifie d F31.9 ; Attention deficit hyperactivity disorder (ADHD), combined type F90.2 and Posttraumatic stress disorder F43.10 [facility] [address] [id number] Feb, Dental examination Z01.20 [facility] [address] [place] [id number] [place] [address] Jan, Bipolar disorder, unspecifie d F31.9 [facility] [address] [facility] [id number] [address] [place] [phone] Jan, Attention deficit hyperactiv ity disorder (ADHD), combined type F90.2 [facility] [address] [place] [id number] [address] [place] [address] Dec, Posttraumatic stress disorde r F43.10 [facility] [address] [place] [id number] [address] [place] [address] Dec, Posttraumatic stress disorde r F43.10 [facility] [address] [id number] [address] [place] [address] [id number] Nov, Dental examination Z01.20 [facility] [id number] [place] [address] [id number] Nov, Dental examination Z01.20 [facility] [address] [facility] [id number] [address] [place] [address] [id number] Nov, Encounter for dental exam an d cleaning w/o abnormal findings Z01.20 [facility] [address] [facility] [id number] [address] [place] [address] Sep, Bipolar disorder, unspecifie d F31.9 ; Posttraumatic stress disorder F43.10 and Attention deficit hyperactivity disorder (ADHD), combined type F90.2 [facility] [address] [facility] [id number] [address] [place] [address] Aug, Posttraumatic stress disorde r F43.10 [facility] [address] [facility] [id number] [address] [place] [id number] 15 Jul, 2017 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 [facility] [address] [facility] [id number] [address] [place] [phone] Jul, Bipolar disorder, unspecifie d F31.9 ; Attention deficit hyperactivity disorder (ADHD), combined type F90.2 and Posttraumatic stress disorder F43.10 [place] [address] [place] [id number] [address] [place] [address] Jun, Bipolar disorder, unspecifie d F31.9 ; Posttraumatic stress disorder F43.10 ; Attention deficit hyperactivity disorder (ADHD), combined type F90.2 and Other nursing home (current) drug therapy Z79.899 [facility] [address] [place] [id number] [address] [place] [phone] March, Bipolar disorder, unspecifie d F31.9 ; Posttraumatic stress disorder F43.10 and Attention deficit hyperactivity disorder (ADHD), combined type F90.2 [facility] [address] [facility] [id number] [address] [place] [phone] Dec, Bipolar disorder, unspecifie d F31.9 ; Posttraumatic stress disorder F43.10 and Attention deficit hyperactivity disorder (ADHD), combined type F90.2 [facility] [address] [facility] [id number] [address] [place] [phone] Dec, [facility] [address] [facility] [id number] [address] [place] [phone] Sep, [facility] [address] [id number] [address] [place] [phone] Aug, Bipolar disorder, unspecifie d F31.9 ; Posttraumatic stress disorder F43.10 and Attention deficit hyperactivity disorder (ADHD), combined type F90.2 [facility] [address] [id number] [address] [place] [phone] Jun, [facility] [address] [id number] [address] [place] [address] March, [facility] [address] [id number] [address] [place] [address] Feb, Bipolar disorder, unspecifie d F31.9 ; Attention deficit hyperactivity disorder (ADHD), combined type F90.2 and Posttraumatic stress disorder F43.10 [facility] [address] [id number] [address] [place] [phone] Feb, [facility] [address] [id number] [address] [place] [phone] Feb, [facility] [address] [id number] [address] [place] [phone] Feb, [facility] [address] [id number] [address] [place] [phone] Jan, [facility] [address] [id number] [address] [place] [address] [id number] Dec, Dental examination Z01.20 [facility] [address] [id number] [address] [place] [phone] Sep, [facility] [address] [id number] [address] [place] [phone] Sep, Attention deficit hyperactiv ity disorder (ADHD), combined type F90.2 ; Posttraumatic stress disorder F43.10 and Bipolar disorder, unspecified F31.9 [facility] [address] [id number] [address] [place] [phone] Aug, [facility] [address] [id number] [address] [place] [phone] Aug, [facility] [address] [id number] [address] [place] [address] Jul, [facility] [address] [id number] [address] [place] [address] May, Bipolar disorder, unspecifie d 296.80 ; 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.00 and Posttraumatic stress disorder 309.81 [facility] [address] [id number] [address] [place] [phone] May, [facility] [address] [id number] [address] [place] [phone] May, [facility] [address] [id number] [address] [place] [phone] May, [facility] [address] [id number] [address] [place] [phone] Apr, [facility] [address] [id number] [address] [place] [phone] Apr, [facility] [address] [id number] [address] [place] [phone] Apr, [facility] [address] [id number] [address] [place] [phone] March, [facility] [address] [id number] [address] [place] [phone] March, [facility] [address] [id number] [address] [place] [phone] March, [facility] [address] [id number] [address] [place] [phone] Feb, [facility] [address] [id number] [address] [place] [phone] Feb, [facility] [address] [id number] [address] [place] [phone] Jan, [facility] [address] [id number] [address] [place] [address], [place] [address] 30 Jan, 2015 [facility] [address] [id number] [address] [place] [address], [place] [address] Jan, [facility] [address] [id number] [address] [place] [address], [place] [address] Jan, [facility] [address] [id number] [address] [place] [address], [place] [address] Jan, [facility] [address] [id number] [address] [place] [address], [place] [address] Jan, [facility] [address] [id number] [address] [place] [address], [place] [address] Jan, [facility] [address] [id number] [address] [place] [address], [place] [address] Jan, [facility] [address] [id number] [address] [place] [address], [place] [address] Jan, [facility] [address] [id number] [address] [place] [address], [place] [address] Jan, [facility] [address] [id number] [address] [place] [address], [place] [address] Dec, 2014 [facility] [address] [id number] [address] [place] [address], [place] [address] Dec, [facility] [address] [id number] [address] [place] [address], [place] [address] Dec, 2014 [facility] [address] [id number] [address] [place] [address], [place] [address] Dec, [facility] [address] [id number] [address] [place] [address], [place] [address] Oct, [facility] [address] [id number] [address] [place] [address], [place] [address] Oct, [facility] [address] [id number] [address] [place] [phone] Oct, [facility] [address] [id number] [address] [place] [address], [place] [address] Oct, [facility] [address] [id number] [address] [place] [address], [place] [address] Oct, [facility] [address] [id number] [address] [place] [address], [place] [address] Oct, [facility] [address] [id number] [address] [place] [address], [place] [address] Oct, [facility] [address] [id number] [address] [place] [address], [place] [address] Sep, [facility] [address] [id number] [address] [place] [address], [place] [address] Sep, [facility] [address] [id number] [address] [place] [address], [place] [address] Sep, [facility] [address] [id number] [address] [place] [address], [place] [address] Sep, [facility] [address] [id number] [address] [place] [address], [place] [address] Sep, [facility] [address] [id number] [address] [place] [address], [place] [address] Sep, [facility] [address] [id number] [address] [place] [address], [place] [address] Sep, [facility] [address] [id number] [address] [place] [phone] Sep, [facility] [address] [id number] [address] [place] [address], [place] [address] Aug, [facility] [address] [id number] [address] [place] [address], [place] [address] Aug, [facility] [address] [id number] [address] [place] [address], [place] [address] Aug, [facility] [address] [id number] [address] [place] [address], [place] [address] Aug, [facility] [address] [id number] [address] [place] [address], [place] [address] Jul, [facility] [address] [id number] [address] [place] [address], [place] [address] Jul, [facility] [address] [id number] [address] [place] [address], [place] [address] Jul, [facility] [address] [id number] [address] [place] [address], [place] [address] Jul, [facility] [address] [id number] [address] [place] [address], [place] [address] Jun, [facility] [address] [id number] [address] [place] [address], [place] [address] Jun, [facility] [address] [id number] [address] [place] [address], [place] [address] Jun, [facility] [address] [id number] [address] [place] [address], [place] [address] Jun, [facility] [address] [id number] [address] [place] [address], [place] [address] May, [facility] [address] [id number] [address] [place] [address], [place] [address] May, [facility] [address] [id number] [address] [place] [address], [place] [address] May, [facility] [address] [id number] [address] [place] [address], [place] [address] May, [facility] [address] [id number] [address] [place] [address], [place] [address] Apr, [facility] [address] [id number] [address] [place] [address], [place] [address] Apr, [facility] [address] [id number] [address] [place] [address], [place] [address] Apr, [facility] [address] [id number] [facility] [place] [address] Apr, [facility] [address] [id number] [facility] [place] [address] Apr, [facility] [address] [id number] [facility] [place] [address] Apr, [facility] [address] [id number] [address] [place] [address], [place] [address] Apr, [facility] [address] [id number] [address] [place] [address], [place] [address] Apr, [facility] [address] [id number] [address] [place] [address], [place] [address] Apr, [facility] [address] [id number] [address] [place] [address], [place] [address] Apr, [facility] [address] [id number] [address] [place] [address], [place] [address] Apr, [facility] [address] [id number] [address] [place] [address], [place] [address] Apr, [facility] [address] [id number] [address] [place] [address], [place] [address] Apr, [facility] [address] [id number] [address] [place] [address], [place] [address] March, [facility] [address] [id number] [address] [place] [address], [place] [address] March, [facility] [address] [id number] [address] [place] [address], [place] [address] March, [facility] [address] [id number] [address] [place] [address], [place] [address] March, [facility] [address] [id number] [address] [place] [address], [place] [address] Jan, [facility] [address] [id number] [address] [place] [address], [place] [address] Jan, [facility] [address] [id number] [address] [place] [address], [place] [address] Jan, [facility] [address] [id number] [address] [place] [address], [place] [address] Jan, [facility] [address] [id number] [address] [place] [address], [place] [address] Jan, [facility] [address] [id number] [address] [place] [address], [place] [address] Jan, [facility] [address] [id number] [address] [place] [address], [place] [address] Dec, [facility] [address] [id number] [address] [place] [address], [place] [address] Dec, [facility] [address] [id number] [address] [place] [address], [place] [address] Dec, [facility] [address] [id number] [address] [place] [address], [place] [address] Dec, [facility] [address] [id number] [address] [place] [address], [place] [address] Nov, [facility] [address] [id number] [address] [place] [address], [place] [address] Nov, [facility] [address] [id number] [address] [place] [address], [place] [address] Nov, [facility] [address] [id number] [address] [place] [address], [place] [address] Nov, [facility] [address] [id number] [address] [place] [address], [place] [address] Oct, [facility] [address] [id number] [address] [place] [address], [place] [address] Oct, [facility] [address] [id number] [address] [place] [address], [place] [address] Oct, [facility] [address] [id number] [address] [place] [address], [place] [address] Oct, [facility] [address] [id number] [address] [place] [address], [place] [address] Oct, [facility] [address] [id number] [address] [place] [address], [place] [address] Oct, [facility] [address] [id number] [address] [place] [address], [place] [address] Oct, [facility] [address] [id number] [address] [place] [address], [place] [address] Oct, [facility] [address] [id number] [address] [place] [address], [place] [address] Sep, [facility] [address] [id number] [address] [place] [address], [place] [address] Sep, [facility] [place] [address] [id number] [address] [place] [address], [place] [address] Jul, [facility] [place] [address] [id number] [address] [place] [address], [place] [address] Jul, [facility] [place] [address] [id number] [address] [place] [address], [place] [address] Jul, [facility] [address] [id number] [address] [place] [address], [place] [address] Jul, [facility] [place] [address] [id number] [address] [place] [address], [place] [address] Jun, [facility] [address] [id number] [address] [place] [address], [place] [address] Jun, [facility] [address] [id number] [address] [place] [address], [place] [address] May, [facility] [address] [id number] [address] [place] [address], [place] [address] Apr, [facility] [address] [id number] [address] [place] [address] Apr, [facility] [place] [address] [id number] [address] [place] [address], [place] [address] Apr, [facility] [address] [id number] [address] [place] [address], [place] [address] March, [facility] [address] [id number] [address] [place] [address], [place] [address] March, [facility] [address] [id number] [address] [place] [address], [place] [address] Feb, [facility] [address] [id number] [address] [place] [address], [place] [address] Jan, [facility] [address] [id number] [address] [place] [address], [place] [address] Jan, [facility] [address] [id number] [address] [place] [address], [place] [address] Dec, [facility] [address] [id number] [address] [place] [address], [place] [address] Dec, [facility] [place] [address] [id number] [address] [place] [address], [place] [address] Nov, [facility] [address] [id number] [address] [place] [address], [place] [address] Nov, [facility] [place] [address] [id number] [address] [place] [address], [place] [address] Nov, [facility] [address] [id number] [address] [place] [address], [place] [address] Oct, [facility] [address] [id number] [address] [place] [address], [place] [address] Oct, [facility] [address] [id number] [address] [place] [address], [place] [address] Oct, [facility] [address] [id number] [address] [place] [address], [place] [address] Oct, [facility] [address] [id number] [address] [place] [address], [place] [address] Sep, [facility] [address] [id number] [address] [place] [address], [place] [address] Sep, [facility] [address] [id number] [address] [place] [address], [place] [address] Sep, [facility] [address] [id number] [address] [place] [address], [place] [address] Sep, [facility] [address] [id number] [address] [place] [address], [place] [address] Sep, [facility] [address] [id number] [address] [place] [address], [place] [address] Sep, [facility] [address] [id number] [address] [place] [address], [place] [address] Aug, [facility] [address] [id number] [address] [place] [address], [place] [address] 26 Jul, 2012 [facility] [address] [id number] [address] [place] [address], [place] [address] 19 Jul, 2012 [facility] [address] [id number] [address] [place] [address], [place] [address] 18 Jul, 2012 [facility] [address] [id number] [address] [place] [address], [place] [address] 14 Jul, 2012 [facility] [address] [id number] [address] [place] [address], [place] [address] Jun, [facility] [address] [id number] [address] [place] [address], [place] [address] Jun, [facility] [address] [id number] [address] [place] [address], [place] [address] Jun, [facility] [address] [id number] [address] [place] [address], [place] [address] Jun, [facility] [address] [id number] [address] [place] [address], [place] [address] May, [facility] [address] [id number] [address] [place] [address], [place] [address] Apr, [facility] [address] [id number] [address] [place] [address], [place] [address] March, [facility] [address] [id number] [address] [place] [address], [place] [address] March, [facility] [address] [id number] [address] [place] [address], [place] [address] March, [facility] [address] [id number] [address] [place] [address], [place] [address] Feb, [facility] [address] [id number] [address] [place] [address], [place] [address] Feb, [facility] [address] [id number] [address] [place] [address], [place] [address] Jan, [facility] [address] [id number] [address] [place] [address], [place] [address] Jan, [facility] [address] [id number] [address] [place] [address], [place] [address] Jan, [facility] [address] [id number] [address] [place] [address], [place] [address] Dec, [facility] [address] [id number] [address] [place] [address], [place] [address] Dec, [facility] [address] [id number] [address] [place] [address], [place] [address] Nov, [facility] [address] [id number] [address] [place] [address], [place] [address] Nov, [facility] [address] [id number] [address] [place] [address], [place] [address] Nov, [facility] [address] [id number] [address] [place] [address], [place] [address] Nov, [facility] [address] [id number] [address] [place] [address] Nov, [facility] [address] [id number] [address] [place] [address] Oct, [facility] [address] [id number] [address] [place] [phone] Oct, [facility] [address] [id number] [address] [place] [address] Oct, [facility] [address] [id number] [address] [place] [phone] Oct, [facility] [address] [id number] [address] [place] [phone] Sep, [facility] [address] [id number] [address] [place] [address] Sep, [facility] [address] [id number] [address] [place] [phone] Sep, [facility] [address] [id number] [address] [place] [phone] Aug, [facility] [address] [id number] [address] [place] [phone] Oct, [facility] [address] [id number] [address] [place] [phone] Oct, [facility] [address] [id number] [address] [place] [phone] Oct, [facility] [address] [id number] [address] [place] [phone] Oct, IMMUNIZATIONS No Known Immunizations SOCIAL HISTORY Never Assessed REASON FOR VISIT PLAN OF CARE Activity Details Follow Up 3 Months Reason:on site reca ll VITAL SIGNS MEDICATIONS Medication Instructions Dosage Frequency Start Date End Date Duration S tatus Abilify 20 mg Orally Once a day 1 tablet 24h Feb, Active DDAVP 0.2 mg TAKE ONE TABLET BY MOUTH DAILY Active Zyprexa Zydis 5 MG Orally as needed Once a day 1 tablet on the tongue and allow to dissolve 24h Active Claritin Active [place] MG Orally Once a day 1 capsule 24h 30 day(s) Active Toviaz 4 MG Orally Once a day 1 tablet 24h A ctive Trazodone HCl 100 mg Orally Once a day 1 tablet 24h Active BusPIRone HCl 5 MG TAKE ONE TABLET BY MOUTH EVERY MORNING Active Xanax 0.25 MG Orally once daily 1 tablet 24h 08 Sep, 2017 Active Clonidine HCl 0.1 Orally twice a day 1 tablet 12h Active Zoloft 100 MG TAKE ONE TABLET BY MOUTH DAILY Active Intuniv 2 MG TAKE ONE TABLET BY MOUTH DAILY Active RESULTS No Results PROCEDURES Procedure Date Ordered Result Body Site PROPHYLAXIS - ADULT Oct 12, 2018 TOPICAL FLUORIDE VARNISH Oct 12, 2018 INSTRUCTIONS MEDICATIONS ADMINISTERED No Known Medications MEDICAL (GENERAL) HISTORY Type Description Date Medical History Guardian requests that we do not explain any treatment to patient! Surgical History No Surgical history information
--- OUTSIDE RECORDS SUMMARY | 2020-04-25 14:59 | XMS REPORT ---
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 Active 02897610 Problem Attention deficit hyperactivity disorder (ADHD), combi dylon type F90.2 Active 554467744 Problem Bipolar disorder, unspecified 296.80 Active 48405886 ALLERGIES No Information ENCOUNTERS Encounter Location Date Diagnosis [place] [address] [address] [facility] [id number] [address] [place] [address] Sep, [place] [address] [address] [facility] [id number] [address] [place] [address] Aug, Encounter for immunization Z 23 [place] [address] [address] [facility] [id number] [address] [place] [address] Aug, 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 briceno Z79.899 [place] [address] [address] [facility] [id number] [address] [place] [address] Jul, Bipolar disorder, unspecifie d F31.9 [place] [address] [address] [facility] [id number] [address] [place] [address] Jun, Bipolar disorder, unspecifie d F31.9 [facility] [address] [facility] [id number] [address] [place] [address] Jun, [place] [address] [address] [facility] [id number] [address] [place] [address] Jun, Bipolar disorder, unspecifie d F31.9 ; Attention deficit hyperactivity disorder (ADHD), combined type F90.2 ; Posttraumatic stress disorder F43.10 and 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 (current) drug therapy Z79.899 [facility] [address] [id number] [address] [place] [address] [id number] Jun, Dental examination Z01.20 [facility] [address] [facility] [id number] [address] [place] [address] May, [facility] [address] [facility] [id number] [address] [place] [address] Apr, Bipolar disorder, unspecifie d F31.9 [facility] [address] [facility] [id number] [address] [place] [address] March, Bipolar disorder, unspecifie d F31.9 ; Attention deficit hyperactivity disorder (ADHD), combined type F90.2 and Posttraumatic stress disorder F43.10 [facility] [address] [facility] [id number] [address] [place] [address] Feb, [facility] [address] [facility] [id number] [address] [place] [address] Feb, Insect bite (nonvenomous), l eft knee, initial encounter S80.262A and Bitten or stung by nonvenomous insect and other nonvenomous arthropods, initial encounter W57.XXXA [facility] [address] [facility] [id number] [address] [place] [phone] Feb, Bipolar disorder, unspecifie d F31.9 [facility] [address] [id number] [address] [place] [address] [id number] Feb, Dental examination Z01.20 [facility] [address] [facility] [id number] [address] [place] [address] Feb, Bipolar disorder, unspecifie d F31.9 ; Attention deficit hyperactivity disorder (ADHD), combined type F90.2 and Posttraumatic stress disorder F43.10 [facility] [address] [id number] [address] [place] [address] [id number] Feb, Dental examination Z01.20 [facility] [address] [id number] [address] [place] [address] Jan, Bipolar disorder, unspecifie d F31.9 [facility] [address] [facility] [id number] [address] [place] [address] Jan, Attention deficit hyperactiv ity disorder (ADHD), combined type F90.2 [facility] [address] [id number] [address] [place] [address] Dec, Posttraumatic stress disorde r F43.10 [facility] [address] [id number] [address] [place] [address] Dec, Posttraumatic stress disorde r F43.10 [facility] [address] [id number] [address] [place] [address] [id number] Nov, Dental examination Z01.20 [facility] [address] [id number] [place] [id number] Nov, Encounter for dental exam an d cleaning w/o abnormal findings Z01.20 [facility] [address] [id number] [address] [place] [address] [id number] Nov, Dental examination Z01.20 [facility] [address] [facility] [id number] [address] [place] [address] Sep, Bipolar disorder, unspecifie d F31.9 ; Posttraumatic stress disorder F43.10 and Attention deficit hyperactivity disorder (ADHD), combined type F90.2 [facility] [address] [facility] [id number] [address] [place] [address] Aug, Posttraumatic stress disorde r F43.10 [facility] [address] [facility] [id number] [address] [place] [address] Jul, Other group home (current) dr nubia briceno Z79.899 [facility] [address] [id number] [address] [place] [address] Jul, Bipolar disorder, unspecifie d F31.9 ; Attention deficit hyperactivity disorder (ADHD), combined type F90.2 and Posttraumatic stress disorder F43.10 [facility] [address] [facility] [id number] [address] [place] [address] Jun, Bipolar disorder, unspecifie d F31.9 ; Posttraumatic stress disorder F43.10 ; Attention deficit hyperactivity disorder (ADHD), combined type F90.2 and 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 (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 therapy Z79.899 [facility] [address] [id number] [address] [place] [id number] March, Bipolar disorder, unspecifie d F31.9 ; Posttraumatic stress disorder F43.10 and Attention deficit hyperactivity disorder (ADHD), combined type F90.2 [facility] [address] [facility] [id number] [address] [place] [phone] Dec, Bipolar disorder, unspecifie d F31.9 ; Posttraumatic stress disorder F43.10 and Attention deficit hyperactivity disorder (ADHD), combined type F90.2 [facility] [address] [facility] [id number] [address] [place] [id number] Dec, [facility] [address] [facility] [id number] [address] [place] [phone] Sep, [facility] [address] [facility] [id number] [address] [place] [id number] Aug, Bipolar disorder, unspecifie d F31.9 ; Posttraumatic stress disorder F43.10 and Attention deficit hyperactivity disorder (ADHD), combined type F90.2 [facility] [address] [facility] [id number] [address] [place] [id number] Jun, [facility] [address] [facility] [id number] [address] [place] [id number] March, [facility] [address] [facility] [id number] [address] [place] [address] Feb, Bipolar disorder, unspecifie d F31.9 ; Attention deficit hyperactivity disorder (ADHD), combined type F90.2 and Posttraumatic stress disorder F43.10 [facility] [address] [id number] [address] [place] [id number] Feb, [facility] [address] [facility] [id number] [address] [place] [id number] Feb, [facility] [address] [facility] [id number] [address] [place] [id number] Feb, [facility] [address] [facility] [id number] [address] [place] [address] Jan, [facility] [address] [id number] [address] [place] [address] [id number] Dec, Dental examination Z01.20 [facility] [address] [facility] [id number] [address] [place] [address] Sep, [facility] [address] [facility] [id number] [address] [place] [id number] Sep, Attention deficit hyperactiv ity disorder (ADHD), combined type F90.2 ; Posttraumatic stress disorder F43.10 and Bipolar disorder, unspecified F31.9 [facility] [address] [id number] [address] [place] [phone] Aug, [facility] [address] [facility] [id number] [address] [place] [id number] Aug, [facility] [address] [facility] [id number] [address] [place] [id number] Jul, [facility] [address] [facility] [id number] [address] [place] [address] May, Bipolar disorder, unspecifie d 296.80 ; 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.00 and Posttraumatic stress disorder 309.81 [facility] [address] [facility] [id number] [address] [place] [phone] May, [facility] [address] [id number] [address] [place] [address], [place] [address] May, [facility] [address] [id number] [address] [place] [address], [place] [address] May, [facility] [address] [id number] [address] [place] [address], [place] [address] Apr, [facility] [address] [id number] [address] [place] [address], [place] [address] Apr, [facility] [address] [id number] [address] [place] [address], [place] [address] Apr, [facility] [address] [id number] [address] [place] [address], [place] [address] March, [facility] [address] [id number] [address] [place] [address], [place] [address] March, [facility] [address] [id number] [address] [place] [address], [place] [address] March, [facility] [address] [id number] [address] [place] [address], [place] [address] Feb, [facility] [address] [id number] [address] [place] [address], [place] [address] Feb, [facility] [address] [id number] [address] [place] [address], [place] [address] Jan, [facility] [address] [id number] [address] [place] [address], [place] [address] Jan, [facility] [address] [id number] [address] [place] [address], [place] [address] Jan, [facility] [address] [id number] [address] [place] [address], [place] [address] Jan, [facility] [address] [id number] [address] [place] [address], [place] [address] Jan, [facility] [address] [id number] [address] [place] [address], [place] [address] Jan, 2014 [facility] [address] [id number] [address] [place] [address], [place] [address] Jan, 2014 [facility] [address] [id number] [address] [place] [address], [place] [address] Jan, 2014 [facility] [address] [id number] [address] [place] [address], [place] [address] Jan, 2014 [facility] [address] [id number] [address] [place] [address], [place] [address] Jan, 2014 [facility] [address] [id number] [address] [place] [address], [place] [address] Dec, 2014 [facility] [address] [id number] [address] [place] [address], [place] [address] Dec, 2014 [facility] [address] [id number] [address] [place] [address], [place] [address] Dec, 2014 [facility] [address] [id number] [address] [place] [address], [place] [address] Dec, 2014 [facility] [address] [id number] [address] [place] [address], [place] [address] Oct, [facility] [address] [id number] [address] [place] [address], [place] [address] Oct, [facility] [address] [id number] [address] [place] [address], [place] [address] Oct, [facility] [address] [id number] [address] [place] [address], [place] [address] Oct, [facility] [address] [id number] [address] [place] [address], [place] [address] Oct, [facility] [address] [id number] [address] [place] [address], [place] [address] Oct, [facility] [address] [id number] [address] [place] [address], [place] [address] Oct, [facility] [address] [id number] [address] [place] [address], [place] [address] Sep, [facility] [address] [id number] [address] [place] [address], [place] [address] Sep, [facility] [address] [id number] [address] [place] [address], [place] [address] Sep, [facility] [address] [id number] [address] [place] [address], [place] [address] Sep, [facility] [address] [id number] [address] [place] [address], [place] [address] Sep, [facility] [address] [id number] [address] [place] [address], [place] [address] Sep, [facility] [address] [id number] [address] [place] [address], [place] [address] Sep, [facility] [address] [id number] [address] [place] [address], [place] [address] Sep, [facility] [address] [id number] [address] [place] [address], [place] [address] Aug, [facility] [address] [id number] [address] [place] [address], [place] [address] Aug, [facility] [address] [id number] [address] [place] [address], [place] [address] Aug, [facility] [address] [id number] [address] [place] [address], [place] [address] Aug, [facility] [address] [id number] [address] [place] [address], [place] [address] Jul, [facility] [address] [id number] [address] [place] [address], [place] [address] 08 Jul, 2014 [facility] [address] [id number] [address] [place] [address], [place] [address] Jul, [facility] [address] [id number] [address] [place] [address], [place] [address] Jul, [facility] [address] [id number] [facility] [place] [address] Jun, [facility] [address] [id number] [facility] [place] [address] Jun, [facility] [address] [id number] [address] [place] [address], [place] [address] Jun, [facility] [address] [id number] [address] [place] [address], [place] [address] Jun, [facility] [address] [id number] [address] [place] [address], [place] [address] May, [facility] [address] [id number] [address] [place] [address], [place] [address] May, [facility] [address] [id number] [address] [place] [address], [place] [address] May, [facility] [address] [id number] [address] [place] [address], [place] [address] May, [facility] [address] [id number] [address] [place] [address], [place] [address] Apr, [facility] [address] [id number] [address] [place] [address], [place] [address] Apr, [facility] [address] [id number] [address] [place] [address], [place] [address] Apr, [facility] [address] [id number] [address] [place] [address], [place] [address] Apr, [facility] [address] [id number] [address] [place] [address], [place] [address] Apr, [facility] [address] [id number] [address] [place] [address], [place] [address] Apr, [facility] [address] [id number] [address] [place] [address], [place] [address] Apr, [facility] [address] [id number] [facility] [place] [address] Apr, [facility] [address] [id number] [address] [place] [address], [place] [address] Apr, [facility] [address] [id number] [address] [place] [address], [place] [address] Apr, [facility] [address] [id number] [address] [place] [address], [place] [address] Apr, [facility] [address] [id number] [address] [place] [address], [place] [address] Apr, [facility] [address] [id number] [address] [place] [address], [place] [address] Apr, [facility] [address] [id number] [address] [place] [address], [place] [address] March, [facility] [address] [id number] [address] [place] [address], [place] [address] March, [facility] [address] [id number] [address] [place] [address], [place] [address] March, [facility] [address] [id number] [address] [place] [address], [place] [address] March, [facility] [address] [id number] [address] [place] [address], [place] [address] Jan, [facility] [address] [id number] [address] [place] [address], [place] [address] Jan, [facility] [address] [id number] [address] [place] [address], [place] [address] Jan, [facility] [address] [id number] [address] [place] [address], [place] [address] Jan, [facility] [address] [id number] [address] [place] [address], [place] [address] Jan, [facility] [address] [id number] [address] [place] [address], [place] [address] Jan, [facility] [address] [id number] [address] [place] [address], [place] [address] Dec, [facility] [address] [id number] [address] [place] [address], [place] [address] Dec, [facility] [address] [id number] [address] [place] [address], [place] [address] Dec, [facility] [address] [id number] [address] [place] [address], [place] [address] Dec, [facility] [address] [id number] [address] [place] [address], [place] [address] Nov, [facility] [address] [id number] [address] [place] [address], [place] [address] Nov, [facility] [address] [id number] [address] [place] [address], [place] [address] Nov, [facility] [address] [id number] [address] [place] [address], [place] [address] Nov, [facility] [address] [id number] [address] [place] [address], [place] [address] Oct, [facility] [address] [id number] [address] [place] [address], [place] [address] Oct, [facility] [address] [id number] [address] [place] [address], [place] [address] Oct, [facility] [address] [id number] [address] [place] [address], [place] [address] Oct, [facility] [address] [id number] [address] [place] [address], [place] [address] Oct, [facility] [address] [id number] [address] [place] [address], [place] [address] Oct, [facility] [address] [id number] [address] [place] [address], [place] [address] Oct, [facility] [address] [id number] [address] [place] [id number] Oct, [facility] [address] [id number] [address] [place] [address], [place] [address] Sep, [facility] [address] [id number] [address] [place] [address], [place] [address] Sep, [facility] [address] [id number] [address] [place] [address], [place] [address] Jul, [facility] [address] [id number] [address] [place] [address], [place] [address] Jul, [facility] [address] [id number] [address] [place] [address], [place] [address] Jul, [facility] [address] [id number] [address] [place] [address], [place] [address] Jul, [facility] [address] [id number] [address] [place] [address], [place] [address] Jun, [facility] [address] [id number] [address] [place] [address], [place] [address] Jun, [facility] [address] [id number] [address] [place] [address], [place] [address] May, [facility] [address] [id number] [address] [place] [address], [place] [address] Apr, [facility] [address] [id number] [address] [place] [address], [place] [address] Apr, [facility] [address] [id number] [address] [place] [address], [place] [address] Apr, [facility] [address] [id number] [address] [place] [address], [place] [address] March, [facility] [address] [id number] [address] [place] [address], [place] [address] March, [facility] [address] [id number] [address] [place] [address], [place] [address] Feb, [facility] [address] [id number] [address] [place] [address], [place] [address] 15 Jan, 2013 [facility] [address] [id number] [address] [place] [address], [place] [address] 05 Jan, 2013 [facility] [address] [id number] [address] [place] [address], [place] [address] Dec, [facility] [address] [id number] [address] [place] [address], [place] [address] Dec, [facility] [address] [id number] [address] [place] [address], [place] [address] Nov, [facility] [address] [id number] [address] [place] [address], [place] [address] Nov, [facility] [address] [id number] [address] [place] [address], [place] [address] Nov, [facility] [address] [id number] [address] [place] [address], [place] [address] Oct, [facility] [address] [id number] [address] [place] [address], [place] [address] Oct, [facility] [address] [id number] [address] [place] [address], [place] [address] Oct, [facility] [address] [id number] [address] [place] [address], [place] [address] Oct, [facility] [address] [id number] [address] [place] [address], [place] [address] Sep, [facility] [address] [id number] [address] [place] [address], [place] [address] Sep, [facility] [address] [id number] [address] [place] [address], [place] [address] Sep, [facility] [address] [id number] [address] [place] [address], [place] [address] Sep, [facility] [address] [id number] [address] [place] [address], [place] [address] 15 Sep, 2012 [facility] [address] [id number] [address] [place] [address], [place] [address] 15 Sep, 2012 [facility] [address] [id number] [address] [place] [address], [place] [address] Aug, [facility] [address] [id number] [address] [place] [address], [place] [address] 26 Jul, 2012 [facility] [address] [id number] [address] [place] [address], [place] [address] 19 Jul, 2012 [facility] [address] [id number] [address] [place] [address], [place] [address] 18 Jul, 2012 [facility] [address] [id number] [address] [place] [address], [place] [address] 14 Jul, 2012 [facility] [address] [id number] [address] [place] [address], [place] [address] Jun, [facility] [address] [id number] [address] [place] [address], [place] [address] Jun, [facility] [address] [id number] [address] [place] [address], [place] [address] Jun, [facility] [address] [id number] [address] [place] [address], [place] [address] Jun, [facility] [address] [id number] [address] [place] [address], [place] [address] May, [facility] [address] [id number] [address] [place] [address], [place] [address] Apr, [facility] [address] [id number] [address] [place] [address], [place] [address] March, [facility] [address] [id number] [address] [place] [address], [place] [address] March, [facility] [address] [id number] [address] [place] [address], [place] [address] March, [facility] [address] [id number] [address] [place] [address], [place] [address] Feb, [facility] [address] [id number] [address] [place] [address], [place] [address] Feb, [facility] [address] [id number] [address] [place] [address], [place] [address] Jan, [facility] [address] [id number] [address] [place] [address], [place] [address] Jan, [facility] [address] [id number] [address] [place] [address], [place] [address] Jan, [facility] [address] [id number] [address] [place] [address], [place] [address] Dec, [facility] [address] [id number] [address] [place] [address], [place] [address] Dec, [facility] [address] [id number] [address] [place] [address], [place] [address] Nov, [facility] [address] [id number] [address] [place] [address], [place] [address] Nov, [facility] [address] [id number] [address] [place] [address], [place] [address] Nov, [facility] [address] [id number] [address] [place] [address], [place] [address] Nov, [facility] [address] [id number] [address] [place] [address], [place] [address] Nov, [facility] [address] [id number] [address] [place] [address], [place] [address] Oct, [facility] [address] [id number] [address] [place] [address], [place] [address] Oct, [facility] [address] [id number] [address] [place] [address], [place] [address] Oct, [facility] [address] [id number] [address] [place] [address], [place] [address] Oct, [facility] [address] [id number] [address] [place] [address] Sep, [facility] [address] [id number] [address] [place] [address] Sep, [facility] [address] [id number] [address] [place] [address] Sep, [facility] [address] [id number] [address] [place] [address] Aug, [facility] [address] [id number] [address] [place] [address] Oct, [facility] [address] [id number] [address] [place] [address] Oct, [facility] [address] [id number] [address] [place] [address] Oct, [facility] [address] [id number] [address] [place] [address] Oct, IMMUNIZATIONS Vaccine Route Administration Date Status FLULAVAL QUAD 0.5ML (6 MO & UP) 2017 IM Intramuscular Aug 20 18 Administered SOCIAL HISTORY Never Assessed REASON FOR VISIT Flu shot--[id number] PLAN OF CARE VITAL SIGNS MEDICATIONS Unknown Medications RESULTS No Results PROCEDURES Procedure Date Ordered Result Body Site FLULAVAL QUAD 0.5ML (6 MO AND UP) 2017Aug 20, 2018 SINGLE IMMUNIZATION ADMIN Aug 20, 2018 INSTRUCTIONS MEDICATIONS ADMINISTERED No Known Medications MEDICAL (GENERAL) HISTORY Type Description Date Medical History Guardian requests that we do not explain any treatment to patient!
--- OUTSIDE RECORDS SUMMARY | 2020-04-25 14:59 | XMS REPORT ---
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 Active 30013779 Problem Attention deficit hyperactivity disorder (ADHD), combi dylon type F90.2 Active 681435074 Problem Bipolar disorder, unspecified 296.80 Active 73401584 ALLERGIES No Known Allergies ENCOUNTERS Encounter Location Date Diagnosis [facility] [address] [facility] [id number] [address] [place] [address] [id number] Sep, [facility] [address] [facility] [id number] [address] [place] [address] Sep, [facility] [address] [id number] [address] [place] [address] Aug, Lymphadenopathy of left cerv ical region R59.0 [facility] [address] [facility] [id number] [address] [place] [address] Aug, Encounter for immunization Z 23 [facility] [address] [facility] [id number] [address] [place] [address] Aug, 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.899 [facility] [address] [facility] [id number] [address] [place] [address] Jul, Bipolar disorder, unspecifie d F31.9 [facility] [address] [facility] [id number] [address] [place] [address] Jun, Bipolar disorder, unspecifie d F31.9 [facility] [address] [facility] [id number] [address] [place] [address] Jun, [facility] [address] [facility] [id number] [address] [place] [address] Jun, Bipolar disorder, unspecifie d F31.9 ; Attention deficit hyperactivity disorder (ADHD), combined type F90.2 ; Posttraumatic stress disorder F43.10 and 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 Z79.899 [facility] [address] [id number] [address] [place] [address] [id number] Jun, Dental examination Z01.20 [facility] [address] [facility] [id number] [address] [place] [address] May, [facility] [address] [facility] [id number] [address] [place] [address] Apr, Bipolar disorder, unspecifie d F31.9 [facility] [address] [facility] [id number] [address] [place] [address] March, Bipolar disorder, unspecifie d F31.9 ; Attention deficit hyperactivity disorder (ADHD), combined type F90.2 and Posttraumatic stress disorder F43.10 [facility] [address] [facility] [id number] [address] [place] [address] Feb, [facility] [address] [facility] [id number] [address] [place] [address] Feb, Insect bite (nonvenomous), l eft knee, initial encounter S80.262A and Bitten or stung by nonvenomous insect and other nonvenomous arthropods, initial encounter W57.XXXA [facility] [address] [facility] [id number] [address] [place] [address] Feb, Bipolar disorder, unspecifie d F31.9 [facility] [address] [id number] [address] [place] [address] [id number] Feb, Dental examination Z01.20 [facility] [address] [facility] [id number] [address] [place], [place] [id number] Feb, Bipolar disorder, unspecifie d F31.9 ; Attention deficit hyperactivity disorder (ADHD), combined type F90.2 and Posttraumatic stress disorder F43.10 [facility] [address] [id number] [place] [address] [id number] Feb, Dental examination Z01.20 [facility] [address] [facility] [id number] [address] [place] [address] Jan, Bipolar disorder, unspecifie d F31.9 [facility] [address] [facility] [id number] [place] [address] Jan, Attention deficit hyperactiv ity disorder (ADHD), combined type F90.2 [facility] [address] [id number] [address] [place] [address] Dec, Posttraumatic stress disorde r F43.10 [facility] [address] [id number] [place] [address] Dec, Posttraumatic stress disorde r F43.10 [facility] [id number] [place] [address] [id number] Nov, Dental examination Z01.20 [facility] [address] [id number] [place] [address] [id number] Nov, Encounter for dental exam an d cleaning w/o abnormal findings Z01.20 [facility] [address] [id number] [place] [address] [id number] Nov, Dental examination Z01.20 [facility] [address] [facility] [id number] [address] [place] [address] Sep, Bipolar disorder, unspecifie d F31.9 ; Posttraumatic stress disorder F43.10 and Attention deficit hyperactivity disorder (ADHD), combined type F90.2 [facility] [address] [id number] [address] [place] [address] Aug, Posttraumatic stress disorde r F43.10 [facility] [address] [id number] [address] [place] [id number] 15 Jul, 2017 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 therapy Z79.899 [facility] [address] [facility] [id number] [address] [place] [address] Jul, Bipolar disorder, unspecifie d F31.9 ; Attention deficit hyperactivity disorder (ADHD), combined type F90.2 and Posttraumatic stress disorder F43.10 [facility] [address] [facility] [id number] [address] [place] [address] Jun, Bipolar disorder, unspecifie d F31.9 ; Posttraumatic stress disorder F43.10 ; Attention deficit hyperactivity disorder (ADHD), combined type F90.2 and Other chcf (current) drug therapy Z79.899 [facility] [address] [facility] [id number] [address] [place] [address] March, Bipolar disorder, unspecifie d F31.9 ; Posttraumatic stress disorder F43.10 and Attention deficit hyperactivity disorder (ADHD), combined type F90.2 [facility] [address] [facility] [id number] [address] [place] [address] Dec, Bipolar disorder, unspecifie d F31.9 ; Posttraumatic stress disorder F43.10 and Attention deficit hyperactivity disorder (ADHD), combined type F90.2 [facility] [address] [facility] [id number] [address] [place] [address] Dec, [facility] [address] [facility] [id number] [address] [place] [address] Sep, [facility] [address] [facility] [id number] [address] [place] [address] Aug, Bipolar disorder, unspecifie d F31.9 ; Posttraumatic stress disorder F43.10 and Attention deficit hyperactivity disorder (ADHD), combined type F90.2 [facility] [address] [id number] [address] [place] [address] Jun, [facility] [address] [id number] [address] [place] [address] March, [facility] [address] [id number] [address] [place] [address] Feb, Bipolar disorder, unspecifie d F31.9 ; Attention deficit hyperactivity disorder (ADHD), combined type F90.2 and Posttraumatic stress disorder F43.10 [facility] [address] [id number] [address] [place] [address] Feb, [facility] [address] [id number] [address] [place] [address] Feb, [facility] [address] [id number] [address] [place] [address] Feb, [facility] [address] [id number] [address] [place] [address] Jan, [facility] [address] [id number] [address] [place] [address] [id number] Dec, Dental examination Z01.20 [facility] [address] [id number] [address] [place] [address] Sep, [facility] [address] [id number] [address] [place] [address] Sep, Attention deficit hyperactiv ity disorder (ADHD), combined type F90.2 ; Posttraumatic stress disorder F43.10 and Bipolar disorder, unspecified F31.9 [facility] [address] [id number] [address] [place] [address] Aug, [facility] [address] [id number] [address] [place] [address] Aug, [facility] [address] [id number] [address] [place] [address] Jul, [facility] [address] [id number] [address] [place] [address] May, Bipolar disorder, unspecifie d 296.80 ; 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.00 and Posttraumatic stress disorder 309.81 [facility] [address] [id number] [address] [place] [address] May, [facility] [address] [id number] [address] [place] [address] May, [facility] [address] [id number] [address] [place] [address] May, [facility] [address] [id number] [address] [place] [address] Apr, [facility] [address] [id number] [address] [place] [address] Apr, [facility] [address] [id number] [address] [place] [address] Apr, [facility] [address] [id number] [address] [place] [address] March, [facility] [address] [id number] [address] [place] [address] March, [facility] [address] [id number] [address] [place] [address] March, [facility] [address] [id number] [address] [place] [address] Feb, [facility] [address] [id number] [address] [place] [address] Feb, [facility] [address] [id number] [address] [place] [address] Jan, [facility] [address] [id number] [address] [place] [address] Jan, [facility] [address] [id number] [address] [place] [address] Jan, [facility] [address] [id number] [address] [place] [address], [place] [address] Jan, [facility] [address] [id number] [address] [place] [address], [place] [address] Jan, [facility] [address] [id number] [address] [place] [address], [place] [address] Jan, 2014 [facility] [address] [id number] [address] [place] [address], [place] [address] Jan, 2014 [facility] [address] [id number] [address] [place] [address], [place] [address] Jan, [facility] [address] [id number] [address] [place] [address], [place] [address] Jan, 2014 [facility] [address] [id number] [address] [place] [address], [place] [address] Jan, 2014 [facility] [address] [id number] [address] [place] [address], [place] [address] Dec, 2014 [facility] [address] [id number] [address] [place] [address], [place] [address] Dec, 2014 [facility] [address] [id number] [address] [place] [address], [place] [address] Dec, 2014 [facility] [address] [id number] [address] [place] [address], [place] [address] Dec, 2014 [facility] [address] [id number] [address] [place] [address], [place] [address] Oct, [facility] [address] [id number] [address] [place] [address], [place] [address] Oct, [facility] [address] [id number] [address] [place] [address], [place] [address] Oct, [facility] [address] [id number] [address] [place] [address], [place] [address] Oct, [facility] [address] [id number] [address] [place] [address], [place] [address] Oct, [facility] [address] [id number] [address] [place] [address], [place] [address] Oct, [facility] [address] [id number] [address] [place] [address], [place] [address] Oct, [facility] [address] [id number] [address] [place] [address], [place] [address] Sep, [facility] [address] [id number] [address] [place] [address], [place] [address] Sep, [facility] [address] [id number] [address] [place] [address], [place] [address] Sep, [facility] [address] [id number] [address] [place] [address], [place] [address] Sep, [facility] [address] [id number] [address] [place] [address], [place] [address] Sep, [facility] [address] [id number] [address] [place] [address], [place] [address] Sep, [facility] [address] [id number] [address] [place] [address], [place] [address] Sep, [facility] [address] [id number] [address] [place] [address], [place] [address] Sep, [facility] [address] [id number] [address] [place] [address], [place] [address] Aug, [facility] [address] [id number] [address] [place] [address], [place] [address] Aug, [facility] [address] [id number] [address] [place] [address], [place] [address] Aug, [facility] [address] [id number] [address] [place] [address], [place] [address] Aug, [facility] [address] [id number] [address] [place] [address], [place] [address] Jul, [facility] [address] [id number] [facility] [place] [address] Jul, [facility] [address] [id number] [facility] [place] [address] Jul, [facility] [address] [id number] [address] [place] [address], [place] [address] Jul, [facility] [address] [id number] [address] [place] [address], [place] [address] Jun, [facility] [address] [id number] [address] [place] [address], [place] [address] Jun, [facility] [address] [id number] [address] [place] [address], [place] [address] Jun, [facility] [address] [id number] [address] [place] [address], [place] [address] Jun, [facility] [address] [id number] [address] [place] [address], [place] [address] May, [facility] [address] [id number] [address] [place] [address], [place] [address] May, [facility] [address] [id number] [address] [place] [address], [place] [address] May, [facility] [address] [id number] [address] [place] [address], [place] [address] May, [facility] [address] [id number] [address] [place] [address], [place] [address] Apr, [facility] [address] [id number] [address] [place] [address], [place] [address] Apr, [facility] [address] [id number] [address] [place] [address], [place] [address] Apr, [facility] [address] [id number] [address] [place] [address], [place] [address] Apr, [facility] [address] [id number] [address] [place] [address], [place] [address] Apr, [facility] [address] [id number] [facility] [place] [address] Apr, [facility] [address] [id number] [address] [place] [address], [place] [address] Apr, [facility] [address] [id number] [address] [place] [address], [place] [address] Apr, [facility] [address] [id number] [address] [place] [address], [place] [address] Apr, [facility] [address] [id number] [address] [place] [address], [place] [address] Apr, [facility] [address] [id number] [address] [place] [address], [place] [address] Apr, [facility] [address] [id number] [address] [place] [address], [place] [address] Apr, [facility] [address] [id number] [address] [place] [address], [place] [address] Apr, [facility] [address] [id number] [address] [place] [address], [place] [address] March, [facility] [address] [id number] [address] [place] [address], [place] [address] March, [facility] [address] [id number] [address] [place] [address], [place] [address] March, [facility] [address] [id number] [address] [place] [address], [place] [address] March, [facility] [address] [id number] [address] [place] [address], [place] [address] Jan, [facility] [address] [id number] [address] [place] [address], [place] [address] Jan, [facility] [address] [id number] [address] [place] [address], [place] [address] Jan, [facility] [address] [id number] [address] [place] [address], [place] [address] 10 Jan, 2014 [facility] [address] [id number] [address] [place] [address], [place] [address] Jan, [facility] [address] [id number] [address] [place] [address], [place] [address] Jan, [facility] [address] [id number] [address] [place] [address], [place] [address] Dec, [facility] [address] [id number] [address] [place] [address], [place] [address] Dec, [facility] [address] [id number] [address] [place] [address], [place] [address] Dec, [facility] [address] [id number] [address] [place] [address], [place] [address] Dec, [facility] [address] [id number] [address] [place] [address], [place] [address] Nov, [facility] [address] [id number] [address] [place] [address], [place] [address] Nov, [facility] [address] [id number] [address] [place] [address], [place] [address] Nov, [facility] [address] [id number] [address] [place] [address], [place] [address] Nov, [facility] [address] [id number] [address] [place] [address], [place] [address] Oct, [facility] [address] [id number] [address] [place] [address], [place] [address] Oct, [facility] [address] [id number] [address] [place] [address], [place] [address] Oct, [facility] [address] [id number] [address] [place] [address], [place] [address] Oct, [facility] [address] [id number] [address] [place] [address], [place] [address] Oct, [facility] [address] [id number] [address] [place] [address], [place] [address] Oct, [facility] [address] [id number] [address] [place] [address], [place] [address] Oct, [facility] [address] [id number] [address] [place] [address], [place] [address] Oct, [facility] [address] [id number] [address] [place] [address], [place] [address] Sep, [facility] [address] [id number] [address] [place] [address], [place] [address] Sep, [facility] [address] [id number] [address] [place] [address], [place] [address] Jul, [facility] [address] [id number] [address] [place] [address], [place] [address] Jul, [facility] [address] [id number] [address] [place] [address], [place] [address] Jul, [facility] [address] [id number] [address] [place] [address], [place] [address] Jul, [facility] [address] [id number] [address] [place] [address], [place] [address] Jun, [facility] [address] [id number] [address] [place] [address], [place] [address] Jun, [facility] [address] [id number] [address] [place] [address] May, [facility] [address] [id number] [address] [place] [address], [place] [address] Apr, [facility] [address] [id number] [address] [place] [address], [place] [address] Apr, [facility] [address] [id number] [address] [place] [address], [place] [address] Apr, [facility] [address] [id number] [address] [place] [address], [place] [address] March, [facility] [address] [id number] [address] [place] [address], [place] [address] March, [facility] [address] [id number] [address] [place] [address], [place] [address] Feb, [facility] [address] [id number] [address] [place] [address], [place] [address] Jan, [facility] [address] [id number] [address] [place] [address], [place] [address] Jan, [facility] [address] [id number] [address] [place] [address], [place] [address] Dec, [facility] [address] [id number] [address] [place] [address], [place] [address] Dec, [facility] [address] [id number] [address] [place] [address], [place] [address] Nov, [facility] [address] [id number] [address] [place] [address], [place] [address] Nov, [facility] [address] [id number] [address] [place] [address], [place] [address] Nov, [facility] [address] [id number] [address] [place] [address], [place] [address] Oct, [facility] [address] [id number] [address] [place] [address], [place] [address] Oct, [facility] [address] [id number] [address] [place] [address], [place] [address] Oct, [facility] [address] [id number] [address] [place] [address], [place] [address] Oct, [facility] [address] [id number] [address] [place] [address], [place] [address] Sep, [facility] [address] [id number] [address] [place] [address], [place] [address] Sep, [facility] [address] [id number] [address] [place] [address], [place] [address] Sep, [facility] [address] [id number] [address] [place] [address], [place] [address] Sep, [facility] [address] [id number] [address] [place] [place] [address], [place] [address] Sep, [facility] [address] [id number] [address] [place] [address], [place] [address] Sep, [facility] [address] [id number] [address] [place] [address], [place] [address] Aug, [facility] [address] [id number] [address] [place] [address], [place] [address] 26 Jul, 2012 [facility] [address] [id number] [address] [place] [address], [place] [address] 19 Jul, 2012 [facility] [address] [id number] [address] [place] [address], [place] [address] 18 Jul, 2012 [facility] [address] [id number] [address] [place] [address], [place] [address] 14 Jul, 2012 [facility] [address] [id number] [address] [place] [address], [place] [address] Jun, [facility] [address] [id number] [address] [place] [address], [place] [address] Jun, [facility] [address] [id number] [address] [place] [address], [place] [address] Jun, [facility] [address] [id number] [address] [place] [address], [place] [address] Jun, [facility] [address] [id number] [address] [place] [address], [place] [address] May, [facility] [address] [id number] [address] [place] [address], [place] [address] Apr, [facility] [address] [id number] [address] [place] [address], [place] [address] March, [facility] [address] [id number] [address] [place] [address], [place] [address] March, [facility] [address] [id number] [address] [place] [address], [place] [address] March, [facility] [address] [id number] [address] [place] [address], [place] [address] Feb, [facility] [address] [id number] [address] [place] [address], [place] [address] Feb, [facility] [address] [id number] [address] [place] [address], [place] [address] Jan, [facility] [address] [id number] [address] [place] [address], [place] [address] Jan, [facility] [address] [id number] [address] [place] [address], [place] [address] Jan, [facility] [address] [id number] [address] [place] [address], [place] [address] Dec, [facility] [address] [id number] [address] [place] [address], [place] [address] Dec, [facility] [address] [id number] [address] [place] [address], [place] [address] Nov, [facility] [address] [id number] [address] [place] [address], [place] [address] Nov, [facility] [address] [id number] [address] [place] [address], [place] [address] Nov, [facility] [address] [id number] [address] [place] [address], [place] [address] Nov, [facility] [address] [id number] [address] [place] [address], [place] [address] Nov, [facility] [address] [id number] [address] [place] [address], [place] [address] Oct, [facility] [address] [id number] [address] [place] [address] Oct, [facility] [address] [id number] [address] [place] [address] Oct, [facility] [address] [id number] [address] [place] [address] Oct, [facility] [address] [id number] [address] [place] [address] Sep, [facility] [address] [id number] [address] [place] [address] Sep, [facility] [address] [id number] [address] [place] [address] Sep, [facility] [address] [id number] [address] [place] [address] Aug, [facility] [address] [id number] [address] [place] [address] Oct, [facility] [address] [id number] [address] [place] [address] Oct, [facility] [address] [id number] [address] [place] [address] Oct, [facility] [address] [id number] [address] [place] [address] Oct, IMMUNIZATIONS No Known Immunizations SOCIAL HISTORY Never Assessed REASON FOR VISIT Swollen glands in neck started this morning JStrasserRN PLAN OF CARE Activity Details Follow Up if not improving with PCP or reg follow up Reason: VITAL SIGNS Height 68.5 in 2018-09-08 Weight 227 lbs 2018-09-08 Temperature 97.2 degrees Fahrenheit 2018-09-08 Heart Rate 92 bpm 2018-09-08 Respiratory Rate 20 2018-09-08 BMI 34.01 kg/m2 2018-09-08 Blood pressure systolic 120 mmHg 2018-09-08 Blood pressure diastolic 80 mmHg 2018-09-08 MEDICATIONS Medication Instructions Dosage Frequency Start Date End Date Duration S cleve Abilify 20 mg Orally Once a day 1 tablet 24h Feb, 30 days Active Clonidine HCl 0.1 Orally twice a day 1 tablet 12h Active Trazodone HCl 100 mg Orally Once a day 1 tablet 24h Active BusPIRone HCl 5 mg Orally in am once a day 1 tablet 24h Active DDAVP 0.2 mg TAKE ONE TABLET BY MOUTH DAILY Active Zoloft 100 MG TAKE ONE TABLET BY MOUTH DAILY 30 Active Intuniv 2 mg Orally Once a day 1 tablet 24h Active Desmopressin Acetate 0.1 TAKE TWO TABLETS BY MOUTH DAILY 30 Active Abilify 20 TAKE ONE TABLET BY MOUTH DAILY 30 Active Xanax 0.25 MG Orally once daily 1 tablet 24h Sep, 30 days Active Claritin Active Zyprexa Zydis 5 MG Orally as needed Once a day 1 tablet on the tongue and allow to dissolve 24h Active Toviaz 4 MG Orally Once a day 1 tablet 24h A ctive RESULTS No Results PROCEDURES No Known procedures INSTRUCTIONS MEDICATIONS ADMINISTERED No Known Medications MEDICAL (GENERAL) HISTORY Type Description Date Medical History Guardian requests that we do not explain any treatment to patient! Surgical History No know Surgical history
--- OUTSIDE RECORDS SUMMARY | 2020-04-25 14:59 | XMS REPORT ---
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 [id number] [address] [place] [phone] Sep, [place] [address] [place] [id number] [address] [place] [phone] Aug, Encounter for immunization Z 23 [facility] [address] [place] [id number] [address] [place] [address] Aug, Other senior care (current) dr nubia briceno Z79.899 [facility] [address] [facility] [id number] [address] [place] [phone] Jul, Bipolar disorder, unspecifie d F31.9 [facility] [address] [facility] [id number] [address] [place] [phone] Jun, Bipolar disorder, unspecifie d F31.9 [facility] [address] [facility] [id number] [address] [place] [phone] Jun, [facility] [address] [facility] [id number] [address] [place] [address] Jun, Bipolar disorder, unspecifie d F31.9 ; Attention deficit hyperactivity disorder (ADHD), combined type F90.2 ; Posttraumatic stress disorder F43.10 and Other senior care (current) drug therapy Z79.899 [facility] [address] [id number] [address] [place] [address] [id number] Jun, Dental examination Z01.20 [facility] [address] [facility] [id number] [address] [place] [phone] May, [facility] [address] [facility] [id number] [address] [place] [phone] Apr, Bipolar disorder, unspecifie d F31.9 [facility] [address] [facility] [id number] [address] [place] [phone] March, Bipolar disorder, unspecifie d F31.9 ; Attention deficit hyperactivity disorder (ADHD), combined type F90.2 and Posttraumatic stress disorder F43.10 [facility] [address] [facility] [id number] [address] [place] [phone] Feb, [facility] IN [facility] [address] [facility] [id number] [address] [place] [phone] Feb, Insect bite (nonvenomous), l eft knee, initial encounter S80.262A and Bitten or stung by nonvenomous insect and other nonvenomous arthropods, initial encounter W57.XXXA [facility] [address] [facility] [id number] [address] [place] [phone] Feb, Bipolar disorder, unspecifie d F31.9 [facility] [address] [id number] [address] [place] [address] [id number] Feb, Dental examination Z01.20 [facility] [address] [facility] [id number] [address] [place] [id number] Feb, Bipolar disorder, unspecifie d F31.9 ; Attention deficit hyperactivity disorder (ADHD), combined type F90.2 and Posttraumatic stress disorder F43.10 [facility] [address] [id number] [address] [place] [address] [id number] Feb, Dental examination Z01.20 [facility] [address] [id number] [address] [place] [phone] Jan, Bipolar disorder, unspecifie d F31.9 [facility] [address] [id number] [address] [place] [id number] Jan, Attention deficit hyperactiv ity disorder (ADHD), combined type F90.2 [facility] [address] [id number] [address] [place] [phone] Dec, Posttraumatic stress disorde r F43.10 [facility] [address] [facility] [id number] [address] [place] [phone] Dec, Posttraumatic stress disorde r F43.10 [facility] [address] [id number] [address] [place] [address] [id number] Nov, Dental examination Z01.20 [facility] [id number] [place] [address] [id number] Nov, Encounter for dental exam an d cleaning w/o abnormal findings Z01.20 [facility] [address] [id number] [address] [place] [address] [id number] Nov, Dental examination Z01.20 [facility] [address] [facility] [id number] [address] [place] [phone] Sep, Bipolar disorder, unspecifie d F31.9 ; Posttraumatic stress disorder F43.10 and Attention deficit hyperactivity disorder (ADHD), combined type F90.2 [facility] [address] [facility] [id number] [address] [place] [id number] Aug, Posttraumatic stress disorde r F43.10 [facility] [address] [facility] [id number] [address] [place] [phone] Jul, Other senior care (current) dr ug therapy Z79.899 [facility] [address] [id number] [address] [place] [phone] Jul, Bipolar disorder, unspecifie d F31.9 ; Attention deficit hyperactivity disorder (ADHD), combined type F90.2 and Posttraumatic stress disorder F43.10 [facility] [address] [id number] [address] [place] [phone] Jun, Bipolar disorder, unspecifie d F31.9 ; Posttraumatic stress disorder F43.10 ; Attention deficit hyperactivity disorder (ADHD), combined type F90.2 and Other senior care (current) drug therapy Z79.899 [facility] [address] [id number] [address] [place] [id number] March, Bipolar disorder, unspecifie d F31.9 ; Posttraumatic stress disorder F43.10 and Attention deficit hyperactivity disorder (ADHD), combined type F90.2 [facility] [address] [id number] [address] [place] [phone] Dec, Bipolar disorder, unspecifie d F31.9 ; Posttraumatic stress disorder F43.10 and Attention deficit hyperactivity disorder (ADHD), combined type F90.2 [facility] [address] [id number] [address] [place] [phone] Dec, [facility] [address] [id number] [address] [place] [phone] Sep, [facility] [address] [id number] [address] [place] [phone] Aug, Bipolar disorder, unspecifie d F31.9 ; Posttraumatic stress disorder F43.10 and Attention deficit hyperactivity disorder (ADHD), combined type F90.2 [facility] [address] [id number] [address] [place] [phone] Jun, [facility] [address] [id number] [address] [place] [phone] March, [facility] [address] [id number] [address] [place] [phone] Feb, Bipolar disorder, unspecifie d F31.9 ; Attention deficit hyperactivity disorder (ADHD), combined type F90.2 and Posttraumatic stress disorder F43.10 [facility] [address] [facility] [id number] [address] [place] [phone] Feb, [facility] [address] [facility] [id number] [address] [place] [phone] Feb, [facility] [address] [facility] [id number] [address] [place] [phone] Feb, [facility] [address] [facility] [id number] [address] [place] [phone] Jan, [facility] [address] [facility] [id number] [address] [place] [address] [id number] Dec, Dental examination Z01.20 [facility] [address] [facility] [id number] [address] [place] [phone] Sep, [facility] [address] [facility] [id number] [address] [place] [phone] Sep, Attention deficit hyperactiv ity disorder (ADHD), combined type F90.2 ; Posttraumatic stress disorder F43.10 and Bipolar disorder, unspecified F31.9 [facility] [address] [facility] [id number] [address] [place] [phone] Aug, [facility] [address] [facility] [id number] [address] [place] [phone] Aug, [facility] [address] [facility] [id number] [address] [place] [phone] Jul, [facility] [address] [facility] [id number] [address] [place] [phone] May, Bipolar disorder, unspecifie d 296.80 ; 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.00 and Posttraumatic stress disorder 309.81 [facility] [address] [facility] [id number] [address] [place] [phone] May, [facility] [address] [id number] [address] [place] [address], [place] [address] May, [facility] [address] [id number] [address] [place] [address], [place] [address] May, [facility] [address] [id number] [address] [place] [address], [place] [address] Apr, [facility] [address] [id number] [address] [place] [address], [place] [address] Apr, [facility] [address] [id number] [address] [place] [address], [place] [address] Apr, [facility] [address] [id number] [address] [place] [address], [place] [address] March, [facility] [address] [id number] [address] [place] [address], [place] [address] March, [facility] [address] [id number] [address] [place] [address], [place] [address] March, [facility] [address] [id number] [address] [place] [address], [place] [address] Feb, [facility] [address] [id number] [address] [place] [address], [place] [address] Feb, [facility] [address] [id number] [address] [place] [address], [place] [address] Jan, [facility] [address] [id number] [address] [place] [address], [place] [address] Jan, [facility] [address] [id number] [address] [place] [address], [place] [address] Jan, [facility] [address] [id number] [address] [place] [address], [place] [address] Jan, [facility] [address] [id number] [address] [place] [address], [place] [address] Jan, [facility] [address] [id number] [address] [place] [address], [place] [address] Jan, 2014 [facility] [address] [id number] [address] [place] [address], [place] [address] Jan, 2014 [facility] [address] [id number] [address] [place] [address], [place] [address] Jan, 2014 [facility] [address] [id number] [address] [place] [address], [place] [address] Jan, 2014 [facility] [address] [id number] [address] [place] [address], [place] [address] Jan, 2014 [facility] [address] [id number] [address] [place] [address], [place] [address] Dec, 2014 [facility] [address] [id number] [address] [place] [address], [place] [address] Dec, 2014 [facility] [address] [id number] [address] [place] [address], [place] [address] Dec, 2014 [facility] [address] [id number] [address] [place] [address], [place] [address] Dec, 2014 [facility] [address] [id number] [address] [place] [address], [place] [address] Oct, [facility] [address] [id number] [address] [place] [address], [place] [address] Oct, [facility] [address] [id number] [address] [place] [address], [place] [address] Oct, [facility] [address] [id number] [address] [place] [address], [place] [address] Oct, [facility] [address] [id number] [address] [place] [address], [place] [address] Oct, [facility] [address] [id number] [address] [place] [address], [place] [address] Oct, [facility] [address] [id number] [address] [place] [address], [place] [address] Oct, [facility] [address] [id number] [address] [place] [address], [place] [address] Sep, [facility] [address] [id number] [address] [place] [address], [place] [address] Sep, [facility] [address] [id number] [address] [place] [address], [place] [address] Sep, [facility] [address] [id number] [address] [place] [address], [place] [address] Sep, [facility] [address] [id number] [address] [place] [address], [place] [address] Sep, [facility] [address] [id number] [address] [place] [address], [place] [address] Sep, [facility] [address] [id number] [address] [place] [address], [place] [address] Sep, [facility] [address] [id number] [address] [place] [address], [place] [address] Sep, [facility] [address] [id number] [address] [place] [address], [place] [address] Aug, [facility] [address] [id number] [address] [place] [address], [place] [address] Aug, [facility] [address] [id number] [address] [place] [address], [place] [address] Aug, [facility] [address] [id number] [address] [place] [address], [place] [address] Aug, [facility] [address] [id number] [address] [place] [address], [place] [address] Jul, [facility] [address] [id number] [address] [place] [address], [place] [address] Jul, [facility] [address] [id number] [address] [place] [address], [place] [address] Jul, [facility] [address] [id number] [address] [place] [address], [place] [address] Jul, [facility] [address] [id number] [facility] [place] [address] Jun, [facility] [address] [id number] [address] [place] [address], [place] [address] Jun, [facility] [address] [id number] [address] [place] [address], [place] [address] Jun, [facility] [address] [id number] [address] [place] [address], [place] [address] Jun, [facility] [address] [id number] [address] [place] [address], [place] [address] May, [facility] [address] [id number] [address] [place] [address], [place] [address] May, [facility] [address] [id number] [address] [place] [address], [place] [address] May, [facility] [address] [id number] [address] [place] [address], [place] [address] May, [facility] [address] [id number] [address] [place] [address], [place] [address] Apr, [facility] [address] [id number] [address] [place] [address], [place] [address] Apr, [facility] [address] [id number] [address] [place] [address], [place] [address] Apr, [facility] [address] [id number] [address] [place] [address], [place] [address] Apr, [facility] [address] [id number] [address] [place] [address], [place] [address] Apr, [facility] [address] [id number] [address] [place] [address], [place] [address] Apr, [facility] [address] [id number] [address] [place] [address], [place] [address] Apr, [facility] [address] [id number] [facility] [place] [address] Apr, [facility] [address] [id number] [facility] [place] [address] Apr, [facility] [address] [id number] [facility] [place] [address] Apr, [facility] [address] [id number] [facility] [place] [address] Apr, [facility] [address] [id number] [facility] [place] [address] Apr, [facility] [address] [id number] [address] [place] [address], [place] [address] Apr, [facility] [address] [id number] [address] [place] [address], [place] [address] March, [facility] [address] [id number] [address] [place] [address], [place] [address] March, [facility] [address] [id number] [address] [place] [address], [place] [address] March, [facility] [address] [id number] [address] [place] [address], [place] [address] March, [facility] [address] [id number] [address] [place] [address], [place] [address] Jan, [facility] [address] [id number] [address] [place] [address], [place] [address] Jan, [facility] [address] [id number] [address] [place] [address], [place] [address] Jan, [facility] [address] [id number] [address] [place] [address], [place] [address] Jan, [facility] [address] [id number] [address] [place] [address], [place] [address] Jan, [facility] [address] [id number] [address] [place] [address], [place] [address] Jan, [facility] [address] [id number] [facility] [place] [address] Dec, [facility] [address] [id number] [address] [place] [address], [place] [address] Dec, [facility] [address] [id number] [address] [place] [address], [place] [address] Dec, [facility] [address] [id number] [address] [place] [address], [place] [address] Dec, [facility] [address] [id number] [address] [place] [address], [place] [address] Nov, [facility] [address] [id number] [address] [place] [address], [place] [address] Nov, [facility] [address] [id number] [address] [place] [address], [place] [address] Nov, [facility] [address] [id number] [address] [place] [address], [place] [address] Nov, [facility] [address] [id number] [address] [place] [address], [place] [address] Oct, [facility] [address] [id number] [address] [place] [address], [place] [address] Oct, [facility] [address] [id number] [address] [place] [address], [place] [address] Oct, [facility] [address] [id number] [address] [place] [address], [place] [address] Oct, [facility] [address] [id number] [address] [place] [address], [place] [address] Oct, [facility] [address] [id number] [address] [place] [address], [place] [address] Oct, [facility] [address] [id number] [address] [place] [address], [place] [address] Oct, [facility] [address] [id number] [address] [place] [address], [place] [address] Oct, [facility] [address] [id number] [address] [place] [address], [place] [address] Sep, [facility] [address] [id number] [address] [place] [address], [place] [address] Sep, [facility] [address] [id number] [address] [place] [address], [place] [address] Jul, [facility] [address] [id number] [address] [place] [address], [place] [address] Jul, [facility] [address] [id number] [address] [place] [address], [place] [address] Jul, [facility] [address] [id number] [address] [place] [address], [place] [address] Jul, [facility] [address] [id number] [address] [place] [address], [place] [address] Jun, [facility] [address] [id number] [address] [place] [address], [place] [address] Jun, [facility] [address] [id number] [address] [place] [address], [place] [address] May, [facility] [address] [id number] [address] [place] [address], [place] [address] Apr, [facility] [address] [id number] [address] [place] [address], [place] [address] Apr, [facility] [address] [id number] [address] [place] [address], [place] [address] Apr, [facility] [address] [id number] [address] [place] [address], [place] [address] March, [facility] [address] [id number] [address] [place] [address], [place] [address] March, [facility] [address] [id number] [address] [place] [address], [place] [address] Feb, [facility] [address] [id number] [address] [place] [address], [place] [address] Jan, [facility] [address] [id number] [address] [place] [address], [place] [address] Jan, [facility] [address] [id number] [address] [place] [address], [place] [address] Dec, [facility] [address] [id number] [address] [place] [address], [place] [address] Dec, [facility] [address] [id number] [address] [place] [address], [place] [address] Nov, [facility] [address] [id number] [address] [place] [address], [place] [address] Nov, [facility] [address] [id number] [address] [place] [address], [place] [address] Nov, [facility] [address] [id number] [address] [place] [address], [place] [address] Oct, [facility] [address] [id number] [address] [place] [address], [place] [address] Oct, [facility] [facility] [address] [id number] [address] [place] [address], [place] [address] Oct, [facility] [address] [id number] [address] [place] [address], [place] [address] Oct, [facility] [address] [id number] [address] [place] [address], [place] [address] Sep, [facility] [address] [id number] [address] [place] [address], [place] [address] Sep, [facility] [address] [id number] [address] [place] [address], [place] [address] Sep, [facility] [address] [id number] [address] [place] [address], [place] [address] Sep, [facility] [address] [id number] [address] [place] [address], [place] [address] 15 Sep, 2012 [facility] [address] [id number] [address] [place] [address], [place] [address] 15 Sep, 2012 [facility] [address] [id number] [address] [place] [address], [place] [address] Aug, [facility] [address] [id number] [address] [place] [address], [place] [address] 26 Jul, 2012 [facility] [address] [id number] [address] [place] [address], [place] [address] 19 Jul, 2012 [facility] [address] [id number] [address] [place] [address], [place] [address] 18 Jul, 2012 [facility] [address] [id number] [address] [place] [address], [place] [address] 14 Jul, 2012 [facility] [address] [id number] [address] [place] [address], [place] [address] Jun, [facility] [address] [id number] [address] [place] [address], [place] [address] Jun, [facility] [address] [id number] [address] [place] [address], [place] [address] Jun, [facility] [address] [id number] [address] [place] [address], [place] [address] Jun, [facility] [address] [id number] [address] [place] [address], [place] [address] May, [facility] [address] [id number] [address] [place] [address], [place] [address] Apr, [facility] [address] [id number] [address] [place] [address], [place] [address] March, [facility] [address] [id number] [address] [place] [address], [place] [address] March, [facility] [address] [id number] [address] [place] [address], [place] [address] March, [facility] [address] [id number] [address] [place] [address], [place] [address] Feb, [facility] [address] [id number] [address] [place] [address], [place] [address] Feb, [facility] [address] [id number] [address] [place] [address], [place] [address] Jan, [facility] [address] [id number] [address] [place] [address], [place] [address] Jan, [facility] [address] [id number] [address] [place] [address], [place] [address] Jan, [facility] [address] [id number] [address] [place] [address], [place] [address] Dec, [facility] [address] [id number] [address] [place] [address], [place] [address] Dec, [facility] [address] [id number] [address] [place] [address], [place] [address] Nov, [facility] [address] [id number] [address] [place] [address], [place] [address] Nov, [facility] [address] [id number] [address] [place] [address], [place] [address] Nov, [facility] [address] [id number] [address] [place] [address], [place] [address] Nov, [facility] [address] [id number] [address] [place] [address], [place] [address] Nov, [facility] [address] [id number] [address] [place] [address], [place] [address] Oct, [facility] [address] [id number] [address] [place] [address], [place] [address] Oct, [facility] [address] [id number] [address] [place] [address], [place] [address] 05 Oct, 2011 [facility] [address] [id number] [address] [place] [address], [place] [address] Oct, [facility] [address] [id number] [address] [place] [phone] Sep, [facility] [address] [id number] [address] [place] [phone] Sep, [facility] [address] [id number] [address] [place] [phone] Sep, [facility] [address] [id number] [address] [place] [address] Aug, [facility] [address] [id number] [address] [place] [phone] Oct, [facility] [address] [id number] [address] [place] [phone] Oct, [facility] [address] [id number] [address] [place] [phone] Oct, [facility] [address] [id number] [address] [place] [phone] Oct, IMMUNIZATIONS No Known Immunizations SOCIAL HISTORY Never Assessed REASON FOR VISIT Lab (walk-in) PLAN OF CARE Activity Details Pending Test LIPID PANEL Pending Test CMP VITAL SIGNS MEDICATIONS Unknown Medications RESULTS No Results PROCEDURES Procedure Date Ordered Result Body Site LAB NOT BILLED BY [facility] Aug 20, 2018 VENIPFRED, ROUTINE* Aug 20, 2018 INSTRUCTIONS MEDICATIONS ADMINISTERED No Known Medications MEDICAL (GENERAL) HISTORY Type Description Date Medical History Guardian requests that we do not explain any treatment to patient!
--- OUTSIDE RECORDS SUMMARY | 2020-04-25 14:59 | XMS REPORT ---
Author Author Ronna HUFF 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 [id number] [address] [place] [address] Sep, [facility] [address] [facility] [id number] [address] [place] [address] Jul, Bipolar disorder, unspecifie d F31.9 [facility] [address] [facility] [id number] [address] [place] [address] Jun, Bipolar disorder, unspecifie d F31.9 [facility] [address] [facility] [id number] [address] [place] [address] Jun, [facility] [address] [id number] [address] [place] [address] Jun, Bipolar disorder, unspecifie d F31.9 ; Attention deficit hyperactivity disorder (ADHD), combined type F90.2 ; Posttraumatic stress disorder F43.10 and Other group home (current) drug therapy Z79.899 [place] [address] [facility] [id number] [address] [place] [id number] Jun, Dental examination Z01.20 [facility] [address] [address] May, [facility] [address] [place] [id number] [place] [address] Apr, Bipolar disorder, unspecifie d F31.9 [facility] [address] [place] [id number] [place] [address] March, Bipolar disorder, unspecifie d F31.9 ; Attention deficit hyperactivity disorder (ADHD), combined type F90.2 and Posttraumatic stress disorder F43.10 [facility] [address] [address] Feb, [facility] [address] [address] Feb, Insect bite (nonvenomous), l eft knee, initial encounter S80.262A and Bitten or stung by nonvenomous insect and other nonvenomous arthropods, initial encounter W57.XXXA [facility] [address] [place] [id number] [address] [place] [address] Feb, Bipolar disorder, unspecifie d F31.9 [facility] [address] [place] [id number] [address] [place] [id number] Feb, Dental examination Z01.20 [facility] [address] [place] [id number] [address] [place] [address] Feb, Bipolar disorder, unspecifie d F31.9 ; Attention deficit hyperactivity disorder (ADHD), combined type F90.2 and Posttraumatic stress disorder F43.10 [facility] [address] [facility] [id number] [address] [place] [id number] Feb, Dental examination Z01.20 [facility] [address] [place] [id number] [address] [place] [address] Jan, Bipolar disorder, unspecifie d F31.9 [facility] [address] [id number] [address] [place] [address] Jan, Attention deficit hyperactiv ity disorder (ADHD), combined type F90.2 [facility] [address] [id number] [address] [place] [address] Dec, Posttraumatic stress disorde r F43.10 [facility] [address] [facility] [id number] [address] [place] [address] Dec, Posttraumatic stress disorde r F43.10 [facility] [address] [place] [id number] Nov, Dental examination Z01.20 [facility] [address] [id number] Nov, Encounter for dental exam an d cleaning w/o abnormal findings Z01.20 [facility] [address] [id number] Nov, Dental examination Z01.20 [facility] [address] [address] Sep, Bipolar disorder, unspecifie d F31.9 ; Posttraumatic stress disorder F43.10 and Attention deficit hyperactivity disorder (ADHD), combined type F90.2 [facility] [address] [address] Aug, Posttraumatic stress disorde r F43.10 [facility] [address] [place] [id number] [address] [place] [address] 15 Jul, 2017 Other group home (current) dr nubia briceno Z79.899 [facility] [address] [place] [id number] [address] [place] [address] 11 Jul, 2017 Bipolar disorder, unspecifie d F31.9 ; Attention deficit hyperactivity disorder (ADHD), combined type F90.2 and Posttraumatic stress disorder F43.10 [facility] [address] [place] [id number] [address] [place] [address] Jun, Bipolar disorder, unspecifie d F31.9 ; Posttraumatic stress disorder F43.10 ; Attention deficit hyperactivity disorder (ADHD), combined type F90.2 and 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 [id number] [address] [place] [address] March, Bipolar disorder, unspecifie d F31.9 ; Posttraumatic stress disorder F43.10 and Attention deficit hyperactivity disorder (ADHD), combined type F90.2 [facility] [address] [id number] [address] [place] [address] Dec, Bipolar disorder, unspecifie d F31.9 ; Posttraumatic stress disorder F43.10 and Attention deficit hyperactivity disorder (ADHD), combined type F90.2 [facility] [address] [id number] [address] [place] [address] Dec, [facility] [address] [id number] [address] [place] [address] Sep, [facility] [address] [id number] [address] [place] [address] Aug, Bipolar disorder, unspecifie d F31.9 ; Posttraumatic stress disorder F43.10 and Attention deficit hyperactivity disorder (ADHD), combined type F90.2 [facility] [address] [id number] [address] [place] [address] Jun, [facility] [address] [id number] [address] [place] [address] March, [facility] [address] [id number] [address] [place] [address] Feb, Bipolar disorder, unspecifie d F31.9 ; Attention deficit hyperactivity disorder (ADHD), combined type F90.2 and Posttraumatic stress disorder F43.10 [facility] [address] [facility] [id number] [address] [place] [address] Feb, [facility] [address] [facility] [id number] [address] [place] [address] Feb, [facility] [address] [facility] [id number] [address] [place] [address] Feb, [facility] [address] [facility] [id number] [address] [place] [address] Jan, [facility] [address] [id number] [address] [place] [id number] Dec, Dental examination Z01.20 [facility] [address] [id number] [address] [place] [address] Sep, [facility] [address] [id number] [address] [place] [address] Sep, Attention deficit hyperactiv ity disorder (ADHD), combined type F90.2 ; Posttraumatic stress disorder F43.10 and Bipolar disorder, unspecified F31.9 [facility] [address] [id number] [address] [place] [address] Aug, [facility] [address] [id number] [address] [place] [address] Aug, [facility] [address] [id number] [address] [place] [address] Jul, [facility] [address] [id number] [address] [place] [address] May, Bipolar disorder, unspecifie d 296.80 ; 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.00 and Posttraumatic stress disorder 309.81 [facility] [address] [id number] [address] [place] [address] May, [facility] [address] [facility] [id number] [address] [place] [address] May, [facility] [address] [facility] [id number] [address] [place] [address] May, [facility] [address] [id number] [address] [place] [address], [place] [address] Apr, [facility] [address] [id number] [address] [place] [address], [place] [address] Apr, [facility] [address] [id number] [address] [place] [address], [place] [address] Apr, [facility] [address] [id number] [address] [place] [address], [place] [address] March, [facility] [address] [id number] [address] [place] [address], [place] [address] March, [facility] [address] [id number] [address] [place] [address], [place] [address] March, [facility] [address] [id number] [address] [place] [address], [place] [address] Feb, [facility] [address] [id number] [address] [place] [address], [place] [address] Feb, [facility] [address] [id number] [address] [place] [address], [place] [address] Jan, [facility] [address] [id number] [address] [place] [address], [place] [address] Jan, [facility] [address] [id number] [address] [place] [address], [place] [address] Jan, [facility] [address] [id number] [address] [place] [address], [place] [address] Jan, [facility] [address] [id number] [address] [place] [address], [place] [address] Jan, [facility] [address] [id number] [address] [place] [address], [place] [address] Jan, [facility] [address] [id number] [address] [place] [address], [place] [address] Jan, [facility] [address] [id number] [address] [place] [address], [place] [address] Jan, [facility] [address] [id number] [address] [place] [address], [place] [address] Jan, 2014 [facility] [address] [id number] [address] [place] [address], [place] [address] Jan, 2014 [facility] [address] [id number] [address] [place] [address], [place] [address] Dec, 2014 [facility] [address] [id number] [address] [place] [address], [place] [address] Dec, 2014 [facility] [address] [id number] [address] [place] [address], [place] [address] Dec, 2014 [facility] [address] [id number] [address] [place] [address], [place] [address] Dec, 2014 [facility] [address] [id number] [address] [place] [address], [place] [address] Oct, [facility] [address] [id number] [address] [place] [address], [place] [address] Oct, [facility] [address] [id number] [address] [place] [address], [place] [address] Oct, [facility] [address] [id number] [address] [place] [address], [place] [address] Oct, [facility] [address] [id number] [address] [place] [address], [place] [address] Oct, [facility] [address] [id number] [address] [place] [address], [place] [address] Oct, [facility] [address] [id number] [address] [place] [address], [place] [address] Oct, [facility] [address] [id number] [address] [place] [address], [place] [address] Sep, [facility] [address] [id number] [address] [place] [address], [place] [address] Sep, [facility] [address] [id number] [address] [place] [address], [place] [address] Sep, [facility] [address] [id number] [address] [place] [address], [place] [address] Sep, [facility] [address] [id number] [address] [place] [address], [place] [address] Sep, [facility] [address] [id number] [address] [place] [address], [place] [address] Sep, [facility] [address] [id number] [address] [place] [address], [place] [address] Sep, [facility] [address] [id number] [address] [place] [address], [place] [address] Sep, [facility] [address] [id number] [address] [place] [address], [place] [address] Aug, [facility] [address] [id number] [address] [place] [address], [place] [address] Aug, [facility] [address] [id number] [address] [place] [address], [place] [address] Aug, [facility] [address] [id number] [address] [place] [address], [place] [address] Aug, [facility] [address] [id number] [address] [place] [address], [place] [address] Jul, [facility] [address] [id number] [address] [place] [address], [place] [address] Jul, [facility] [address] [id number] [address] [place] [address], [place] [address] Jul, [facility] [address] [id number] [address] [place] [address], [place] [address] Jul, [facility] [address] [id number] [address] [place] [address], [place] [address] Jun, [facility] [address] [id number] [address] [place] [address], [place] [address] Jun, [facility] [address] [id number] [facility] [place] [address] Jun, [facility] [address] [id number] [address] [place] [address], [place] [address] Jun, [facility] [address] [id number] [facility] [place] [address] May, [facility] [address] [id number] [address] [place] [address], [place] [address] May, [facility] [address] [id number] [address] [place] [address], [place] [address] May, [facility] [address] [id number] [address] [place] [address], [place] [address] May, [facility] [address] [id number] [address] [place] [address], [place] [address] Apr, [facility] [address] [id number] [address] [place] [address], [place] [address] Apr, [facility] [address] [id number] [address] [place] [address], [place] [address] Apr, [facility] [address] [id number] [address] [place] [address], [place] [address] Apr, [facility] [address] [id number] [address] [place] [address], [place] [address] Apr, [facility] [address] [id number] [address] [place] [address], [place] [address] Apr, [facility] [address] [id number] [address] [place] [address], [place] [address] Apr, [facility] [address] [id number] [address] [place] [address], [place] [address] Apr, [facility] [address] [id number] [address] [place] [address], [place] [address] Apr, [facility] [address] [id number] [address] [place] [address], [place] [address] Apr, [facility] [address] [id number] [facility] [place] [address] Apr, [facility] [address] [id number] [address] [place] [address], [place] [address] Apr, [facility] [address] [id number] [address] [place] [address], [place] [address] Apr, [facility] [address] [id number] [address] [place] [address], [place] [address] March, [facility] [address] [id number] [address] [place] [address], [place] [address] March, [facility] [address] [id number] [address] [place] [address], [place] [address] March, [facility] [address] [id number] [address] [place] [address], [place] [address] March, [facility] [address] [id number] [address] [place] [address], [place] [address] Jan, [facility] [address] [id number] [address] [place] [address], [place] [address] Jan, [facility] [address] [id number] [address] [place] [address], [place] [address] Jan, [facility] [address] [id number] [address] [place] [address], [place] [address] Jan, [facility] [address] [id number] [address] [place] [address], [place] [address] Jan, [facility] [address] [id number] [address] [place] [address], [place] [address] Jan, [facility] [address] [id number] [address] [place] [address], [place] [address] Dec, [facility] [address] [id number] [address] [place] [address], [place] [address] Dec, [facility] [address] [id number] [address] [place] [address], [place] [address] Dec, [facility] [address] [id number] [address] [place] [address], [place] [address] Dec, [facility] [address] [id number] [address] [place] [address], [place] [address] Nov, [facility] [address] [id number] [address] [place] [address], [place] [address] Nov, [facility] [address] [id number] [address] [place] [address], [place] [address] Nov, [facility] [address] [id number] [address] [place] [address], [place] [address] Nov, [facility] [address] [id number] [address] [place] [address], [place] [address] Oct, [facility] [address] [id number] [address] [place] [address], [place] [address] Oct, [facility] [address] [id number] [address] [place] [address], [place] [address] Oct, [facility] [address] [id number] [address] [place] [address], [place] [address] Oct, [facility] [address] [id number] [address] [place] [address], [place] [address] Oct, [facility] [address] [id number] [address] [place] [address], [place] [address] Oct, [facility] [address] [id number] [address] [place] [address], [place] [address] Oct, [facility] [address] [id number] [address] [place] [address], [place] [address] Oct, [facility] [address] [id number] [address] [place] [address], [place] [address] Sep, [facility] [address] [id number] [address] [place] [address], [place] [address] Sep, [facility] [address] [id number] [address] [place] [address], [place] [address] Jul, [facility] [address] [id number] [address] [place] [address], [place] [address] Jul, [facility] [address] [id number] [address] [place] [address], [place] [address] Jul, [facility] [address] [id number] [address] [place] [address], [place] [address] Jul, [facility] [address] [id number] [address] [place] [address], [place] [address] Jun, [facility] [address] [id number] [address] [place] [address], [place] [address] Jun, [facility] [address] [id number] [address] [place] [address], [place] [address] May, [facility] [address] [id number] [address] [place] [address], [place] [address] Apr, [facility] [address] [id number] [address] [place] [address], [place] [address] Apr, [facility] [address] [id number] [address] [place] [address], [place] [address] Apr, [facility] [address] [id number] [address] [place] [address], [place] [address] March, [facility] [address] [id number] [address] [place] [address], [place] [address] March, [facility] [address] [id number] [address] [place] [address], [place] [address] Feb, [facility] [address] [id number] [address] [place] [address], [place] [address] Jan, [facility] [address] [id number] [address] [place] [address], [place] [address] 05 Jan, 2013 [facility] [address] [id number] [address] [place] [address] Dec, [facility] [address] [id number] [address] [place] [address], [place] [address] Dec, [facility] [address] [id number] [address] [place] [address], [place] [address] Nov, [facility] [address] [id number] [address] [place] [address], [place] [address] Nov, [facility] [address] [id number] [address] [place] [address], [place] [address] Nov, [facility] [address] [id number] [address] [place] [address], [place] [address] Oct, [facility] [address] [id number] [address] [place] [place] [address], [place] [address] Oct, [facility] [address] [id number] [address] [place] [address], [place] [address] Oct, [facility] [address] [id number] [address] [place] [address], [place] [address] Oct, [facility] [address] [id number] [address] [place] [address], [place] [address] Sep, [facility] [address] [id number] [address] [place] [address], [place] [address] Sep, [facility] [address] [id number] [address] [place] [address], [place] [address] Sep, [facility] [address] [id number] [address] [place] [address] Sep, [facility] [address] [id number] [address] [place] [address], [place] [address] Sep, [facility] [address] [id number] [address] [place] [address], [place] [address] Sep, [facility] [address] [id number] [address] [place] [address], [place] [address] Aug, [facility] [address] [id number] [address] [place] [address], [place] [address] 26 Jul, 2012 [facility] [address] [id number] [address] [place] [address], [place] [address] 19 Jul, 2012 [facility] [address] [id number] [address] [place] [address], [place] [address] 18 Jul, 2012 [facility] [address] [id number] [address] [place] [address], [place] [address] 14 Jul, 2012 [facility] [address] [id number] [address] [place] [address], [place] [address] Jun, [facility] [address] [id number] [address] [place] [address], [place] [address] Jun, [facility] [address] [id number] [address] [place] [address], [place] [address] Jun, [facility] [address] [id number] [address] [place] [address], [place] [address] Jun, [facility] [address] [id number] [address] [place] [address], [place] [address] May, [facility] [address] [id number] [address] [place] [address], [place] [address] Apr, [facility] [address] [id number] [address] [place] [address], [place] [address] March, [facility] [address] [id number] [address] [place] [address], [place] [address] March, [facility] [address] [id number] [address] [place] [address], [place] [address] March, [facility] [address] [id number] [address] [place] [address], [place] [address] Feb, [facility] [address] [id number] [address] [place] [address], [place] [address] Feb, [facility] [address] [id number] [address] [place] [address], [place] [address] Jan, [facility] [address] [id number] [address] [place] [address], [place] [address] Jan, [facility] [address] [id number] [address] [place] [address], [place] [address] Jan, [facility] [address] [id number] [address] [place] [address], [place] [address] Dec, [facility] [address] [id number] [address] [place] [address], [place] [address] Dec, [facility] [address] [id number] [address] [place] [address], [place] [address] Nov, [facility] [address] [id number] [address] [place] [address], [place] [address] Nov, [facility] [address] [id number] [address] [place] [address], [place] [address] Nov, [facility] [address] [id number] [address] [place] [address], [place] [address] Nov, [facility] [address] [id number] [address] [place] [address], [place] [address] Nov, [facility] [address] [id number] [address] [place] [address], [place] [address] Oct, [facility] [address] [id number] [address] [place] [address], [place] [address] Oct, [facility] [address] [id number] [address] [place] [address], [place] [address] Oct, [facility] [address] [id number] [address] [place] [address], [place] [address] Oct, [facility] [address] [id number] [address] [place] [address], [place] [address] Sep, [facility] [address] [id number] [address] [place] [address], [place] [address] Sep, [facility] [address] [id number] [address] [place] [id number] Sep, [facility] [address] [facility] [id number] [address] [place] [address] Aug, [facility] [address] [facility] [id number] [address] [place] [address] Oct, [facility] [address] [facility] [id number] [address] [place] [address] Oct, [facility] [address] [facility] [id number] [address] [place] [address] Oct, [facility] [address] [facility] [id number] [address] [place] [address] Oct, IMMUNIZATIONS No Known Immunizations SOCIAL HISTORY Never Assessed REASON FOR VISIT xanax refill PLAN OF CARE VITAL SIGNS MEDICATIONS Medication Instructions Dosage Frequency Start Date End Date Duration S cleve Xanax 0.25 MG Orally once daily 1 tablet 24h Sep, 30 days Active RESULTS No Results PROCEDURES No Known procedures INSTRUCTIONS MEDICATIONS ADMINISTERED No Known Medications MEDICAL (GENERAL) HISTORY Type Description Date Medical History Guardian requests that we do not explain any treatment to patient!
--- OUTSIDE RECORDS SUMMARY | 2020-04-25 14:59 | XMS REPORT ---
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 [id number] [address] [place] [id number] Sep, [facility] [address] [facility] [id number] [address] [place] [id number] Jul, Bipolar disorder, unspecifie d F31.9 [facility] [address] [facility] [id number] [address] [place] [id number] Jun, Bipolar disorder, unspecifie d F31.9 [facility] [address] [facility] [id number] [address] [place] [id number] Jun, [facility] [address] [facility] [id number] [address] [place] [id number] Jun, Bipolar disorder, unspecifie d F31.9 ; Attention deficit hyperactivity disorder (ADHD), combined type F90.2 ; Posttraumatic stress disorder F43.10 and Other 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 (current) drug therapy Z79.899 [place] [id number] [facility] [id number] [address] [place] [id number] Jun, Dental examination Z01.20 [facility] [address] [address] May, [facility] [address] [place] [id number] [place] [id number] Apr, Bipolar disorder, unspecifie d F31.9 [facility] [address] [place] [id number] [place] [phone] March, Bipolar disorder, unspecifie d F31.9 ; Attention deficit hyperactivity disorder (ADHD), combined type F90.2 and Posttraumatic stress disorder F43.10 [facility] [address] [address] Feb, [facility] [address] [id number] Feb, Insect bite (nonvenomous), l eft knee, initial encounter S80.262A and Bitten or stung by nonvenomous insect and other nonvenomous arthropods, initial encounter W57.XXXA [facility] [address] [place] [id number] [address] [place] [phone] Feb, Bipolar disorder, unspecifie d F31.9 [facility] [address] [place] [id number] [address] [place] [address] [id number] Feb, Dental examination Z01.20 [facility] [address] [place] [id number] [address] [place] [id number] Feb, Bipolar disorder, unspecifie d F31.9 ; Attention deficit hyperactivity disorder (ADHD), combined type F90.2 and Posttraumatic stress disorder F43.10 [facility] [address] [facility] [id number] [address] [place] [address] [id number] Feb, Dental examination Z01.20 [facility] [address] [place] [id number] [address] [place] [phone] Jan, Bipolar disorder, unspecifie d F31.9 [facility] [address] [facility] [id number] [address] [place] [phone] Jan, Attention deficit hyperactiv ity disorder (ADHD), combined type F90.2 [facility] [address] [facility] [id number] [address] [place] [phone] Dec, Posttraumatic stress disorde r F43.10 [facility] [address] [facility] [id number] [address] [place] [phone] Dec, Posttraumatic stress disorde r F43.10 [facility] [address] [place] [id number] Nov, Dental examination Z01.20 [facility] [address] [id number] Nov, Encounter for dental exam an d cleaning w/o abnormal findings Z01.20 [facility] [address] [id number] Nov, Dental examination Z01.20 [facility] [address] [address] Sep, Bipolar disorder, unspecifie d F31.9 ; Posttraumatic stress disorder F43.10 and Attention deficit hyperactivity disorder (ADHD), combined type F90.2 [facility] [address] [address] Aug, Posttraumatic stress disorde r F43.10 [facility] [address] [place] [id number] [address] [place] [id number] 15 Jul, 2017 Other 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 (current) dr nubia briceno Z79.899 [facility] [address] [place] [id number] [address] [place] [id number] 11 Jul, 2017 Bipolar disorder, unspecifie d F31.9 ; Attention deficit hyperactivity disorder (ADHD), combined type F90.2 and Posttraumatic stress disorder F43.10 [facility] [address] [place] [id number] [address] [place] [id number] Jun, Bipolar disorder, unspecifie d F31.9 ; Posttraumatic stress disorder F43.10 ; Attention deficit hyperactivity disorder (ADHD), combined type F90.2 and Other salvage determiner (current) drug therapy Z79.899 [facility] [address] [facility] [id number] [address] [place] [phone] March, Bipolar disorder, unspecifie d F31.9 ; Posttraumatic stress disorder F43.10 and Attention deficit hyperactivity disorder (ADHD), combined type F90.2 [facility] [address] [id number] [address] [place] [phone] Dec, Bipolar disorder, unspecifie d F31.9 ; Posttraumatic stress disorder F43.10 and Attention deficit hyperactivity disorder (ADHD), combined type F90.2 [facility] [address] [facility] [id number] [address] [place] [phone] Dec, [facility] [address] [id number] [address] [place] [id number] Sep, [facility] [address] [facility] [id number] [address] [place] [phone] Aug, Bipolar disorder, unspecifie d F31.9 ; Posttraumatic stress disorder F43.10 and Attention deficit hyperactivity disorder (ADHD), combined type F90.2 [facility] [address] [facility] [id number] [address] [place] [phone] Jun, [facility] [address] [id number] [address] [place] [phone] March, [facility] [address] [id number] [address] [place] [phone] Feb, Bipolar disorder, unspecifie d F31.9 ; Attention deficit hyperactivity disorder (ADHD), combined type F90.2 and Posttraumatic stress disorder F43.10 [facility] [address] [facility] [id number] [address] [place] [phone] Feb, [facility] [address] [facility] [id number] [address] [place] [id number] Feb, [facility] [address] [facility] [id number] [address] [place] [phone] Feb, [facility] [address] [facility] [id number] [address] [place] [phone] Jan, [facility] [address] [id number] [address] [place] [address] [id number] Dec, Dental examination Z01.20 [facility] [address] [facility] [id number] [address] [place] [phone] Sep, [facility] [address] [facility] [id number] [address] [place] [phone] Sep, Attention deficit hyperactiv ity disorder (ADHD), combined type F90.2 ; Posttraumatic stress disorder F43.10 and Bipolar disorder, unspecified F31.9 [facility] [address] [facility] [id number] [address] [place] [phone] Aug, [facility] [address] [facility] [id number] [address] [place] [phone] Aug, [facility] [address] [facility] [id number] [address] [place] [phone] Jul, [facility] [address] [facility] [id number] [address] [place] [phone] May, Bipolar disorder, unspecifie d 296.80 ; 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.00 and Posttraumatic stress disorder 309.81 [facility] [address] [facility] [id number] [address] [place] [phone] May, [facility] [address] [facility] [id number] [address] [place] [phone] May, [facility] [address] [facility] [id number] [address] [place] [phone] May, [facility] [address] [id number] [address] [place] [address], [place] [address] Apr, [facility] [address] [id number] [address] [place] [address], [place] [address] Apr, [facility] [address] [id number] [address] [place] [address], [place] [address] Apr, [facility] [address] [id number] [address] [place] [address], [place] [address] March, [facility] [address] [id number] [address] [place] [address], [place] [address] March, [facility] [address] [id number] [address] [place] [address], [place] [address] March, [facility] [address] [id number] [address] [place] [address], [place] [address] Feb, [facility] [address] [id number] [address] [place] [address], [place] [address] Feb, [facility] [address] [id number] [address] [place] [address], [place] [address] Jan, [facility] [address] [id number] [address] [place] [address], [place] [address] Jan, [facility] [address] [id number] [address] [place] [address], [place] [address] Jan, [facility] [address] [id number] [address] [place] [address], [place] [address] Jan, [facility] [address] [id number] [address] [place] [address], [place] [address] Jan, [facility] [address] [id number] [address] [place] [address], [place] [address] Jan, [facility] [address] [id number] [address] [place] [address], [place] [address] Jan, [facility] [address] [id number] [address] [place] [address], [place] [address] Jan, [facility] [address] [id number] [address] [place] [address], [place] [address] Jan, 2014 [facility] [address] [id number] [address] [place] [address], [place] [address] Jan, 2014 [facility] [address] [id number] [address] [place] [address], [place] [address] Dec, 2014 [facility] [address] [id number] [address] [place] [address], [place] [address] Dec, 2014 [facility] [address] [id number] [address] [place] [address], [place] [address] Dec, 2014 [facility] [address] [id number] [address] [place] [address], [place] [address] Dec, 2014 [facility] [address] [id number] [address] [place] [address], [place] [address] Oct, [facility] [address] [id number] [address] [place] [address], [place] [address] Oct, [facility] [address] [id number] [address] [place] [address], [place] [address] Oct, [facility] [address] [id number] [address] [place] [address], [place] [address] Oct, [facility] [address] [id number] [address] [place] [address], [place] [address] Oct, [facility] [address] [id number] [address] [place] [address], [place] [address] Oct, [facility] [address] [id number] [address] [place] [address], [place] [address] Oct, [facility] [address] [id number] [address] [place] [address], [place] [address] Sep, [facility] [address] [id number] [address] [place] [address], [place] [address] Sep, [facility] [address] [id number] [address] [place] [address], [place] [address] Sep, [facility] [address] [id number] [address] [place] [address], [place] [address] Sep, [facility] [address] [id number] [address] [place] [address], [place] [address] Sep, [facility] [address] [id number] [address] [place] [address], [place] [address] Sep, [facility] [address] [id number] [address] [place] [address], [place] [address] Sep, [facility] [address] [id number] [address] [place] [address], [place] [address] Sep, [facility] [address] [id number] [address] [place] [address], [place] [address] Aug, [facility] [address] [id number] [address] [place] [address], [place] [address] Aug, [facility] [address] [id number] [address] [place] [address], [place] [address] Aug, [facility] [address] [id number] [address] [place] [address], [place] [address] Aug, [facility] [address] [id number] [address] [place] [address], [place] [address] Jul, [facility] [address] [id number] [address] [place] [address], [place] [address] Jul, [facility] [address] [id number] [address] [place] [address], [place] [address] Jul, [facility] [address] [id number] [address] [place] [address], [place] [address] Jul, [facility] [address] [id number] [address] [place] [address], [place] [address] Jun, [facility] [address] [id number] [address] [place] [address], [place] [address] Jun, [facility] [address] [id number] [facility] [place] [address] Jun, [facility] [address] [id number] [address] [place] [address], [place] [address] Jun, [facility] [address] [id number] [facility] [place] [address] May, [facility] [address] [id number] [address] [place] [address], [place] [address] May, [facility] [address] [id number] [address] [place] [address], [place] [address] May, [facility] [address] [id number] [address] [place] [address], [place] [address] May, [facility] [address] [id number] [address] [place] [address], [place] [address] Apr, [facility] [address] [id number] [address] [place] [address], [place] [address] Apr, [facility] [address] [id number] [address] [place] [address], [place] [address] Apr, [facility] [address] [id number] [address] [place] [address], [place] [address] Apr, [facility] [address] [id number] [address] [place] [address], [place] [address] Apr, [facility] [address] [id number] [address] [place] [address], [place] [address] Apr, [facility] [address] [id number] [address] [place] [address], [place] [address] Apr, [facility] [address] [id number] [address] [place] [address], [place] [address] Apr, [facility] [address] [id number] [address] [place] [address], [place] [address] Apr, [facility] [address] [id number] [address] [place] [address], [place] [address] Apr, [facility] [address] [id number] [facility] [place] [address] Apr, [facility] [address] [id number] [address] [place] [address], [place] [address] Apr, [facility] [address] [id number] [address] [place] [address], [place] [address] Apr, [facility] [address] [id number] [address] [place] [address], [place] [address] March, [facility] [address] [id number] [address] [place] [address], [place] [address] March, [facility] [address] [id number] [address] [place] [address], [place] [address] March, [facility] [address] [id number] [address] [place] [address], [place] [address] March, [facility] [address] [id number] [address] [place] [address], [place] [address] Jan, [facility] [address] [id number] [address] [place] [address], [place] [address] Jan, [facility] [address] [id number] [address] [place] [address], [place] [address] Jan, [facility] [address] [id number] [address] [place] [address], [place] [address] Jan, [facility] [address] [id number] [address] [place] [address], [place] [address] Jan, [facility] [address] [id number] [address] [place] [address], [place] [address] Jan, [facility] [address] [id number] [address] [place] [address], [place] [address] Dec, [facility] [address] [id number] [address] [place] [address], [place] [address] Dec, [facility] [address] [id number] [address] [place] [address], [place] [address] Dec, [facility] [address] [id number] [address] [place] [address], [place] [address] Dec, [facility] [address] [id number] [address] [place] [address], [place] [address] Nov, [facility] [address] [id number] [address] [place] [address], [place] [address] Nov, [facility] [address] [id number] [address] [place] [address], [place] [address] Nov, [facility] [address] [id number] [address] [place] [address], [place] [address] Nov, [facility] [address] [id number] [address] [place] [address], [place] [address] Oct, [facility] [address] [id number] [address] [place] [address], [place] [address] Oct, [facility] [address] [id number] [address] [place] [address], [place] [address] Oct, [facility] [address] [id number] [address] [place] [address], [place] [address] Oct, [facility] [address] [id number] [address] [place] [address], [place] [address] Oct, [facility] [address] [id number] [address] [place] [address], [place] [address] Oct, [facility] [address] [id number] [address] [place] [address], [place] [address] Oct, [facility] [address] [id number] [address] [place] [address], [place] [address] Oct, [facility] [address] [id number] [address] [place] [address], [place] [address] Sep, [facility] [address] [id number] [address] [place] [address], [place] [address] Sep, [facility] [address] [id number] [address] [place] [address], [place] [address] Jul, [facility] [address] [id number] [address] [place] [address], [place] [address] Jul, [facility] [address] [id number] [address] [place] [address], [place] [address] Jul, [facility] [address] [id number] [address] [place] [address], [place] [address] Jul, [facility] [address] [id number] [address] [place] [address], [place] [address] Jun, [facility] [address] [id number] [address] [place] [address], [place] [address] Jun, [facility] [address] [id number] [address] [place] [address], [place] [address] May, [facility] [address] [id number] [address] [place] [address], [place] [address] Apr, [facility] [address] [id number] [address] [place] [address], [place] [address] Apr, [facility] [address] [id number] [address] [place] [address], [place] [address] Apr, [facility] [address] [id number] [address] [place] [address], [place] [address] March, [facility] [address] [id number] [address] [place] [address], [place] [address] March, [facility] [address] [id number] [address] [place] [address], [place] [address] Feb, [facility] [address] [id number] [address] [place] [address], [place] [address] Jan, [facility] [address] [id number] [address] [place] [address], [place] [address] 05 Jan, 2013 [facility] [address] [id number] [address] [place] [address] Dec, [facility] [address] [id number] [address] [place] [address], [place] [address] Dec, [facility] [address] [id number] [address] [place] [address], [place] [address] Nov, [facility] [address] [id number] [address] [place] [address], [place] [address] Nov, [facility] [address] [id number] [address] [place] [address], [place] [address] Nov, [facility] [address] [id number] [address] [place] [address], [place] [address] Oct, [facility] [address] [id number] [address] [place] [address], [place] [address] Oct, [facility] [address] [id number] [address] [place] [address], [place] [address] Oct, [facility] [address] [id number] [address] [place] [address], [place] [address] Oct, [facility] [address] [id number] [address] [place] [address], [place] [address] Sep, [facility] [address] [id number] [address] [place] [address], [place] [address] Sep, [facility] [address] [id number] [address] [place] [address], [place] [address] Sep, [facility] [address] [id number] [address] [place] [id number] Sep, [facility] [address] [id number] [address] [place] [address], [place] [address] Sep, [facility] [address] [id number] [address] [place] [address], [place] [address] Sep, [facility] [address] [id number] [address] [place] [address], [place] [address] Aug, [facility] [address] [id number] [address] [place] [address], [place] [address] 26 Jul, 2012 [facility] [address] [id number] [address] [place] [address], [place] [address] 19 Jul, 2012 [facility] [address] [id number] [address] [place] [address], [place] [id number] 18 Jul, 2012 [facility] [address] [id number] [address] [place] [address], [place] [id number] 14 Jul, 2012 [facility] [address] [id number] [address] [place] [address], [place] [address] Jun, [facility] [address] [id number] [address] [place] [address], [place] [address] Jun, [facility] [address] [id number] [address] [place] [address], [place] [address] Jun, [facility] [address] [id number] [address] [place] [address], [place] [address] Jun, [facility] [address] [id number] [address] [place] [address], [place] [address] May, [facility] [address] [id number] [address] [place] [address], [place] [address] Apr, [facility] [address] [id number] [address] [place] [address], [place] [address] March, [facility] [address] [id number] [address] [place] [address], [place] [address] March, [facility] [address] [id number] [address] [place] [address], [place] [address] March, [facility] [address] [id number] [address] [place] [address], [place] [address] Feb, [facility] [address] [id number] [address] [place] [address], [place] [address] Feb, [facility] [address] [id number] [address] [place] [address], [place] [address] Jan, [facility] [address] [id number] [address] [place] [address], [place] [address] Jan, [facility] [address] [id number] [address] [place] [address], [place] [address] Jan, [facility] [address] [id number] [address] [place] [address], [place] [address] Dec, [facility] [address] [id number] [address] [place] [address], [place] [address] Dec, [facility] [address] [id number] [address] [place] [address], [place] [address] Nov, [facility] [address] [id number] [address] [place] [address], [place] [address] Nov, [facility] [address] [id number] [address] [place] [address], [place] [address] Nov, [facility] [address] [id number] [address] [place] [address], [place] [address] Nov, [facility] [address] [id number] [address] [place] [address], [place] [address] Nov, [facility] [address] [id number] [address] [place] [address], [place] [address] Oct, [facility] [address] [id number] [address] [place] [address], [place] [address] Oct, [facility] [address] [id number] [address] [place] [address], [place] [address] Oct, [facility] [address] [id number] [address] [place] [address], [place] [address] Oct, [facility] [address] [id number] [address] [place] [address], [place] [address] Sep, [facility] [address] [id number] [address] [place] [address], [place] [address] Sep, [facility] [address] [id number] [address] [place] [id number] Sep, [facility] [address] [facility] [id number] [address] [place] [id number] Aug, [facility] [address] [facility] [id number] [address] [place] [id number] Oct, [facility] [address] [facility] [id number] [address] [place] [id number] Oct, [facility] [address] [facility] [id number] [address] [place] [id number] Oct, [facility] [address] [facility] [id number] [address] [place] [id number] Oct, IMMUNIZATIONS No Known Immunizations SOCIAL HISTORY Never Assessed REASON FOR VISIT med refill PLAN OF CARE VITAL SIGNS MEDICATIONS Medication Instructions Dosage Frequency Start Date End Date Duration S cleve Abilify 20 mg Orally Once a day 1 tablet 24h Feb, 30 days Active RESULTS No Results PROCEDURES No Known procedures INSTRUCTIONS MEDICATIONS ADMINISTERED No Known Medications MEDICAL (GENERAL) HISTORY Type Description Date Medical History Guardian requests that we do not explain any treatment to patient!
--- OUTSIDE RECORDS SUMMARY | 2020-04-25 15:00 | XMS REPORT ---
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 Active 01092019 Problem Attention deficit hyperactivity disorder (ADHD), combi dylon type F90.2 Active 016631375 Problem Bipolar disorder, unspecified 296.80 Active [id number] ALLERGIES No Known Allergies ENCOUNTERS Encounter Location Date Diagnosis [facility] [address] [id number] [address] [place] [address] Sep, [facility] [address] [facility] [id number] [address] [place] [address] Jul, Bipolar disorder, unspecifie d F31.9 [facility] [address] [facility] [id number] [address] [place] [address] Jun, Bipolar disorder, unspecifie d F31.9 [facility] [address] [facility] [id number] [address] [place] [address] Jun, [facility] [address] [facility] [id number] [address] [place] [address] Jun, Bipolar disorder, unspecifie d F31.9 ; Attention deficit hyperactivity disorder (ADHD), combined type F90.2 ; Posttraumatic stress disorder F43.10 and Other mcfp (current) drug therapy Z79.899 [facility] [address] [facility] [id number] [address] [place] [id number] Jun, Dental examination Z01.20 [facility] [address] [address] May, [facility] [id number] [place] [address] Apr, Bipolar disorder, unspecifie d F31.9 [facility] [id number] [place] [address] March, Bipolar disorder, unspecifie d F31.9 ; Attention deficit hyperactivity disorder (ADHD), combined type F90.2 and Posttraumatic stress disorder F43.10 [facility] [address] [address] Feb, [facility] [address] [address] Feb, Insect bite (nonvenomous), l eft knee, initial encounter S80.262A and Bitten or stung by nonvenomous insect and other nonvenomous arthropods, initial encounter W57.XXXA [facility] [address] [id number] [address] [place] [address] Feb, Bipolar disorder, unspecifie d F31.9 [facility] [address] [id number] [address] [place] [id number] Feb, Dental examination Z01.20 [facility] [address] [id number] [address] [place] [address] Feb, Bipolar disorder, unspecifie d F31.9 ; Attention deficit hyperactivity disorder (ADHD), combined type F90.2 and Posttraumatic stress disorder F43.10 [facility] [address] [facility] [id number] [address] [place] [address] [id number] Feb, Dental examination Z01.20 [facility] [address] [id number] [address] [place] [address] Jan, Bipolar disorder, unspecifie d F31.9 [facility] [address] [id number] [address] [place] [address] Jan, Attention deficit hyperactiv ity disorder (ADHD), combined type F90.2 [facility] [address] [id number] [address] [place] [address] Dec, Posttraumatic stress disorde r F43.10 [facility] [address] [facility] [id number] [address] [place] [address] Dec, Posttraumatic stress disorde r F43.10 [facility] [address] [id number] Nov, Dental examination Z01.20 [facility] [address] [id number] Nov, Encounter for dental exam an d cleaning w/o abnormal findings Z01.20 [facility] [address] [id number] Nov, Dental examination Z01.20 [facility] [address] [address] Sep, Bipolar disorder, unspecifie d F31.9 ; Posttraumatic stress disorder F43.10 and Attention deficit hyperactivity disorder (ADHD), combined type F90.2 [facility] [address] [id number] [address] [place] [address] Aug, Posttraumatic stress disorde r F43.10 [facility] [address] [id number] [address] [place] [id number] 15 Jul, 2017 Other [facility]p (current) dr unbia briceno Z79.899 [facility] [address] [id number] [address] [place] [id number] 11 Jul, 2017 Bipolar disorder, unspecifie d F31.9 ; Attention deficit hyperactivity disorder (ADHD), combined type F90.2 and Posttraumatic stress disorder F43.10 [facility] [address] [id number] [address] [place] [address] Jun, Bipolar disorder, unspecifie d F31.9 ; Posttraumatic stress disorder F43.10 ; Attention deficit hyperactivity disorder (ADHD), combined type F90.2 and Other mcfp (current) drug therapy Z79.899 [facility] [address] [facility] [id number] [address] [place] [address] March, Bipolar disorder, unspecifie d F31.9 ; Posttraumatic stress disorder F43.10 and Attention deficit hyperactivity disorder (ADHD), combined type F90.2 [facility] [address] [id number] [address] [place] [address] Dec, Bipolar disorder, unspecifie d F31.9 ; Posttraumatic stress disorder F43.10 and Attention deficit hyperactivity disorder (ADHD), combined type F90.2 [facility] [address] [facility] [id number] [address] [place] [address] Dec, [facility] [address] [facility] [id number] [address] [place] [address] Sep, [facility] [address] [facility] [id number] [address] [place] [address] Aug, Bipolar disorder, unspecifie d F31.9 ; Posttraumatic stress disorder F43.10 and Attention deficit hyperactivity disorder (ADHD), combined type F90.2 [facility] [address] [facility] [id number] [address] [place] [address] Jun, [facility] [address] [id number] [address] [place] [address] March, [facility] [address] [facility] [id number] [address] [place] [address] Feb, Bipolar disorder, unspecifie d F31.9 ; Attention deficit hyperactivity disorder (ADHD), combined type F90.2 and Posttraumatic stress disorder F43.10 [facility] [address] [facility] [id number] [address] [place] [address] Feb, [facility] [address] [facility] [id number] [address] [place] [address] Feb, [facility] [address] [facility] [id number] [address] [place] [address] Feb, [facility] [address] [facility] [id number] [address] [place] [address] Jan, [facility] [address] [id number] [address] [place] [address] [id number] Dec, Dental examination Z01.20 [facility] [address] [facility] [id number] [address] [place] [address] Sep, [facility] [address] [facility] [id number] [address] [place] [address] Sep, Attention deficit hyperactiv ity disorder (ADHD), combined type F90.2 ; Posttraumatic stress disorder F43.10 and Bipolar disorder, unspecified F31.9 [facility] [address] [facility] [id number] [address] [place] [address] Aug, [facility] [address] [facility] [id number] [address] [place] [address] Aug, [facility] [address] [facility] [id number] [address] [place] [address] Jul, [facility] [address] [facility] [id number] [address] [place] [address] May, Bipolar disorder, unspecifie d 296.80 ; 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.00 and Posttraumatic stress disorder 309.81 [facility] [address] [facility] [id number] [address] [place] [address] May, [facility] [address] [facility] [id number] [address] [place] [address] May, [facility] [address] [facility] [id number] [address] [place] [address] May, [facility] [address] [id number] [address] [place] [address], [place] [address] Apr, [facility] [address] [id number] [address] [place] [address], [place] [address] Apr, [facility] [address] [id number] [address] [place] [address], [place] [address] Apr, [facility] [address] [id number] [address] [place] [address], [place] [address] March, [facility] [address] [id number] [address] [place] [address], [place] [address] March, [facility] [address] [id number] [address] [place] [address], [place] [address] March, [facility] [address] [id number] [address] [place] [address], [place] [address] Feb, [facility] [address] [id number] [address] [place] [address], [place] [address] Feb, [facility] [address] [id number] [address] [place] [address], [place] [address] Jan, [facility] [address] [id number] [address] [place] [address], [place] [address] Jan, [facility] [address] [id number] [address] [place] [address], [place] [address] Jan, [facility] [address] [id number] [address] [place] [address], [place] [address] Jan, [facility] [address] [id number] [address] [place] [address], [place] [address] Jan, [facility] [address] [id number] [address] [place] [address], [place] [address] Jan, [facility] [address] [id number] [address] [place] [address], [place] [address] Jan, [facility] [address] [id number] [address] [place] [address], [place] [address] Jan, [facility] [address] [id number] [address] [place] [address], [place] [address] Jan, 2014 [facility] [address] [id number] [address] [place] [address], [place] [address] Jan, 2014 [facility] [address] [id number] [address] [place] [address], [place] [address] Dec, 2014 [facility] [address] [id number] [address] [place] [address], [place] [address] Dec, 2014 [facility] [address] [id number] [address] [place] [address], [place] [address] Dec, 2014 [facility] [place] [address] [id number] [address] [place] [address], [place] [address] Dec, 2014 [facility] [address] [id number] [address] [place] [address], [place] [address] Oct, [facility] [address] [id number] [address] [place] [address], [place] [address] Oct, [facility] [address] [id number] [address] [place] [address], [place] [address] Oct, [facility] [address] [id number] [address] [place] [address], [place] [address] Oct, [facility] [place] [facility] [address] [id number] [address] [place] [address], [place] [address] Oct, [facility] [address] [id number] [address] [place] [address], [place] [address] Oct, [facility] [place] [address] [id number] [address] [place] [address], [place] [address] Oct, [facility] [place] [address] [id number] [address] [place] [address], [place] [address] Sep, [facility] [address] [id number] [address] [place] [address], [place] [address] Sep, [facility] [address] [id number] [address] [place] [address], [place] [address] Sep, [facility] [address] [id number] [address] [place] [address], [place] [address] Sep, [facility] [address] [id number] [address] [place] [address], [place] [address] Sep, [facility] [place] [address] [id number] [address] [place] [address], [place] [address] Sep, [facility] [address] [id number] [address] [place] [address], [place] [address] Sep, [facility] [place] [address] [id number] [address] [place] [address], [place] [address] Sep, [facility] [place] [address] [id number] [address] [place] [address], [place] [address] Aug, [facility] [place] [facility] [address] [id number] [address] [place] [address], [place] [address] Aug, [facility] [place] [address] [id number] [address] [place] [address], [place] [address] Aug, [facility] [place] [facility] [address] [id number] [address] [place] [address], [place] [address] Aug, [facility] [place] [facility] [address] [id number] [address] [place] [address], [place] [address] Jul, [facility] [place] [address] [id number] [address] [place] [address], [place] [address] Jul, [facility] [place] [facility] [address] [id number] [address] [place] [address], [place] [address] Jul, [facility] [place] [facility] [address] [id number] [address] [place] [address], [place] [address] Jul, [facility] [place] [facility] [address] [id number] [address] [place] [address], [place] [address] Jun, [facility] [place] [address] [id number] [address] [place] [address], [place] [address] Jun, [facility] [address] [id number] [facility] [place] [address] Jun, [facility] [address] [id number] [facility] [place] [address] Jun, [facility] [address] [id number] [facility] [place] [address] May, [facility] [address] [id number] [facility] [place] [address] May, [facility] [place] [facility] [address] [id number] [facility] [place] [address] May, [facility] [place] [facility] [address] [id number] [address] [place] [address], [place] [address] May, [facility] [address] [id number] [address] [place] [address], [place] [address] Apr, [facility] [place] [facility] [address] [id number] [address] [place] [address], [place] [address] Apr, [facility] [facility] [address] [id number] [address] [place] [address], [place] [address] Apr, [facility] [place] [facility] [address] [id number] [address] [place] [address], [place] [address] Apr, [facility] [place] [facility] [address] [id number] [address] [place] [address], [place] [address] Apr, [facility] [address] [id number] [address] [place] [address], [place] [address] Apr, [facility] [address] [id number] [address] [place] [address], [place] [address] Apr, [facility] [place] [facility] [address] [id number] [address] [place] [address], [place] [address] Apr, [facility] [place] [facility] [address] [id number] [address] [place] [address], [place] [address] Apr, [facility] [place] [facility] [address] [id number] [address] [place] [address], [place] [address] Apr, [facility] [address] [id number] [facility] [place] [address] Apr, [facility] [place] [facility] [address] [id number] [address] [place] [address], [place] [address] Apr, [facility] [address] [id number] [facility] [place] [address] Apr, [facility] [place] [facility] [address] [id number] [address] [place] [address], [place] [address] March, [facility] [address] [id number] [address] [place] [address], [place] [address] March, [facility] [place] [facility] [address] [id number] [address] [place] [address], [place] [address] March, [facility] [address] [id number] [address] [place] [address], [place] [address] March, [facility] [facility] [address] [id number] [address] [place] [address], [place] [address] Jan, [facility] [address] [id number] [address] [place] [address], [place] [address] Jan, [facility] [place] [facility] [address] [id number] [address] [place] [address], [place] [address] Jan, [facility] [place] [facility] [address] [id number] [address] [place] [address], [place] [address] Jan, [facility] [facility] [address] [id number] [address] [place] [address], [place] [address] Jan, [facility] [address] [id number] [address] [place] [address], [place] [address] Jan, [facility] [place] [facility] [address] [id number] [address] [place] [address], [place] [address] Dec, [facility] [place] [facility] [address] [id number] [address] [place] [address], [place] [address] Dec, [facility] [place] [facility] [address] [id number] [address] [address] Dec, [facility] [address] [id number] [address] [place] [address], [place] [address] Dec, [facility] [address] [id number] [address] [place] [address], [place] [address] Nov, [facility] [address] [id number] [address] [place] [address], [place] [address] Nov, [facility] [address] [id number] [address] [place] [address], [place] [address] Nov, [facility] [address] [id number] [address] [place] [address], [place] [address] Nov, [facility] [address] [id number] [address] [place] [address], [place] [address] Oct, [facility] [address] [id number] [address] [place] [address], [place] [address] Oct, [facility] [address] [id number] [address] [place] [address], [place] [address] Oct, [facility] [address] [id number] [address] [place] [address], [place] [address] Oct, [facility] [address] [id number] [address] [place] [address], [place] [address] Oct, [facility] [address] [id number] [address] [place] [address], [place] [address] Oct, [facility] [address] [id number] [address] [place] [address], [place] [address] Oct, [facility] [address] [id number] [address] [place] [address], [place] [address] Oct, [facility] [address] [id number] [address] [place] [address], [place] [address] Sep, [facility] [address] [id number] [address] [place] [address], [place] [address] Sep, [facility] [address] [id number] [address] [place] [address], [place] [address] Jul, [facility] [address] [id number] [address] [place] [address], [place] [address] Jul, [facility] [address] [id number] [address] [place] [address], [place] [address] Jul, [facility] [address] [id number] [address] [place] [address], [place] [address] Jul, [facility] [address] [id number] [address] [place] [address], [place] [id number] Jun, [facility] [address] [id number] [address] [place] [address], [place] [id number] Jun, [facility] [address] [id number] [address] [place] [address], [place] [id number] May, [facility] [address] [id number] [address] [place] [address], [place] [id number] Apr, [facility] [address] [id number] [address] [place] [address], [place] [id number] Apr, [facility] [address] [id number] [address] [place] [address], [place] [id number] Apr, [facility] [address] [id number] [address] [place] [address], [place] [id number] March, [facility] [address] [id number] [address] [place] [address], [place] [id number] March, [facility] [address] [id number] [address] [place] [address], [place] [id number] Feb, [facility] [address] [id number] [address] [place] [address], [place] [id number] Jan, [facility] [address] [id number] [address] [place] [address], [place] [id number] Jan, [facility] [address] [id number] [address] [place] [id number] Dec, [facility] [address] [id number] [address] [place] [address], [place] [id number] Dec, [facility] [address] [id number] [address] [place] [address], [place] [id number] Nov, [facility] [address] [id number] [address] [place] [address], [place] [id number] Nov, [facility] [address] [id number] [address] [place] [address], [place] [id number] Nov, [facility] [address] [id number] [address] [place] [address], [place] [id number] Oct, [facility] [address] [id number] [address] [place] [address], [place] [id number] Oct, [facility] [address] [id number] [address] [place] [address], [place] [id number] Oct, [facility] [address] [id number] [address] [place] [address], [place] [id number] Oct, [facility] [address] [id number] [address] [place] [address], [place] [id number] Sep, [facility] [address] [id number] [address] [place] [address], [place] [id number] Sep, [facility] [address] [id number] [address] [place] [address], [place] [id number] Sep, [facility] [address] [id number] [address] [place] [address], [place] [id number] Sep, [facility] [address] [id number] [address] [place] [address], [place] [id number] Sep, [facility] [address] [id number] [address] [place] [address], [place] [id number] Sep, [facility] [address] [id number] [address] [place] [address], [place] [id number] Aug, [facility] [address] [id number] [address] [place] [address], [place] [id number] 26 Jul, 2012 [facility] [address] [id number] [address] [place] [address], [place] [id number] 19 Jul, 2012 [facility] [address] [id number] [address] [place] [address], [place] [id number] 18 Jul, 2012 [facility] [address] [id number] [address] [place] [address], [place] [id number] 14 Jul, 2012 [facility] [address] [id number] [address] [place] [address], [place] [id number] Jun, [facility] [address] [id number] [address] [place] [address], [place] [id number] Jun, [facility] [address] [id number] [address] [place] [address], [place] [id number] Jun, [facility] [address] [id number] [address] [place] [address], [place] [id number] Jun, [facility] [address] [id number] [address] [place] [address], [place] [id number] May, [facility] [address] [id number] [address] [place] [address], [place] [id number] Apr, [facility] [address] [id number] [address] [place] [address], [place] [id number] March, [facility] [address] [id number] [address] [place] [address], [place] [address] March, [facility] [address] [id number] [address] [place] [address], [place] [id number] March, [facility] [address] [id number] [address] [place] [address], [place] [id number] Feb, [facility] [address] [id number] [address] [place] [address], [place] [id number] Feb, [facility] [address] [id number] [address] [place] [address], [place] [id number] Jan, [facility] [address] [id number] [address] [place] [address], [place] [id number] Jan, [facility] [address] [id number] [address] [place] [address], [place] [id number] Jan, [facility] [address] [id number] [address] [place] [address], [place] [address] Dec, [facility] [address] [id number] [address] [place] [address], [place] [id number] Dec, [facility] [address] [id number] [address] [place] [address], [place] [id number] Nov, [facility] [address] [id number] [address] [place] [address], [place] [id number] Nov, [facility] [address] [id number] [address] [place] [address], [place] [id number] Nov, [facility] [address] [id number] [address] [place] [address], [place] [id number] Nov, [facility] [address] [id number] [address] [place] [address], [place] [address] Nov, [facility] [address] [id number] [address] [place] [address], [place] [id number] Oct, [facility] [address] [id number] [address] [place] [address], [place] [id number] Oct, [facility] [address] [id number] [address] [place] [address], [place] [id number] Oct, [facility] [address] [id number] [address] [place] [address], [place] [id number] Oct, [facility] [address] [id number] [address] [place] [address], [place] [id number] Sep, [facility] [address] [id number] [address] [place] [address], [place] [id number] Sep, [facility] [address] [id number] [address] [place] [id number] Sep, [facility] [address] [facility] [id number] [address] [place] [id number] Aug, [facility] [address] [facility] [id number] [address] [place] [id number] Oct, [facility] [address] [facility] [id number] [address] [place] [id number] Oct, [facility] [address] [facility] [id number] [address] [place] [id number] Oct, [facility] [address] [facility] [id number] [address] [place] [id number] Oct, IMMUNIZATIONS No Known Immunizations SOCIAL HISTORY Never Assessed REASON FOR VISIT RENU f/slim Brooks MA PLAN OF CARE Activity Details Follow Up 3 Months Reason: f/slim VITAL SIGNS Height 68.5 in 2018-07-06 Weight 228.5 lbs 2018-07-06 Heart Rate 81 bpm 2018-07-06 Respiratory Rate 20 2018-07-06 Oximetry 97 % 2018-07-06 BMI 34.23 kg/m2 2018-07-06 Blood pressure systolic 122 mmHg 2018-07-06 Blood pressure diastolic 78 mmHg 2018-07-06 MEDICATIONS Medication Instructions Dosage Frequency Start Date End Date Duration S tatus Zoloft 100 mg Orally Once a day 1 tablet 24h Active Abilify 20 mg Orally Once a day 1 tablet 24h Feb, Active Xanax 0.25 MG Orally once daily 1 tablet 24h Sep, Active BusPIRone HCl 5 mg Orally in am once a day 1 tablet 24h Active Trazodone HCl 100 mg Orally Once a day 1 tablet 24h Active Intuniv 2 mg Orally Once a day 1 tablet 24h Active Clonidine HCl 0.1 Orally twice a day 1 tablet 12h Active Toviaz 4 MG Orally Once a day 1 tablet 24h N ot-Taking Claritin Active DDAVP 0.2 mg TAKE ONE TABLET BY MOUTH DAILY Active Triamcinolone Acetonide 0.1 % Externally Twice a day 1 appli cation to affected area 12h Feb, 7 days Active Zyprexa Zydis 5 MG Orally as needed Once a day 1 tablet on the tongue and allow to dissolve 24h Active Loratadine 10 MG Orally Once a day 1 tablet 24h Not-Taking RESULTS No Results PROCEDURES No Known procedures INSTRUCTIONS MEDICATIONS ADMINISTERED No Known Medications MEDICAL (GENERAL) HISTORY Type Description Date Medical History Guardian requests that we do not explain any treatment to patient!
--- OUTSIDE RECORDS SUMMARY | 2020-04-25 15:00 | XMS REPORT ---
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 Active 79093627 Problem Attention deficit hyperactivity disorder (ADHD), combi dylon type F90.2 Active 769276103 Problem Bipolar disorder, unspecified 296.80 Active 66152583 ALLERGIES No Known Allergies ENCOUNTERS Encounter Location Date Diagnosis [facility] [address] [facility] [id number] [address] [place] [address] Sep, [facility] [address] [facility] [id number] [address] [place] [address] Jun, Bipolar disorder, unspecifie d F31.9 [facility] [address] [facility] [id number] [address] [place] [address] Jun, [facility] [address] [id number] [address] [place] [address] Jun, Bipolar disorder, unspecifie d F31.9 ; Attention deficit hyperactivity disorder (ADHD), combined type F90.2 ; Posttraumatic stress disorder F43.10 and Other manager terminal (current) drug therapy Z79.899 [facility] [address] [id number] [address] [place] [address] [id number] 07 Jun, 2018 Dental examination Z01.20 [facility] [address] [facility] [id number] [address] [place] [address] May, [facility] [address] [facility] [id number] [address] [place] [address] Apr, Bipolar disorder, unspecifie d F31.9 [facility] [address] [facility] [id number] [address] [place] [address] March, Bipolar disorder, unspecifie d F31.9 ; Attention deficit hyperactivity disorder (ADHD), combined type F90.2 and Posttraumatic stress disorder F43.10 [facility] [address] [facility] [id number] [address] [place] [address] Feb, [facility] [address] [facility] [id number] [address] [place] [address] Feb, Insect bite (nonvenomous), l eft knee, initial encounter S80.262A and Bitten or stung by nonvenomous insect and other nonvenomous arthropods, initial encounter W57.XXXA [facility] [address] [facility] [id number] [address] [place] [address] Feb, Bipolar disorder, unspecifie d F31.9 [facility] [address] [place] [id number] [address] [place] [address] [id number] Feb, Dental examination Z01.20 [facility] [address] [facility] [id number] [address] [place] [address] Feb, Bipolar disorder, unspecifie d F31.9 ; Attention deficit hyperactivity disorder (ADHD), combined type F90.2 and Posttraumatic stress disorder F43.10 [facility] [address] [id number] [address] [place] [address] [id number] Feb, Dental examination Z01.20 [facility] [address] [facility] [id number] [address] [place] [address] Jan, Bipolar disorder, unspecifie d F31.9 [facility] [address] [facility] [id number] [address] [place] [address] Jan, Attention deficit hyperactiv ity disorder (ADHD), combined type F90.2 [facility] [address] [place] [id number] [address] [place] [address] Dec, Posttraumatic stress disorde r F43.10 [facility] [address] [facility] [id number] [address] [place] [address] Dec, Posttraumatic stress disorde r F43.10 [facility] [address] [id number] [place] [address] [id number] Nov, Dental examination Z01.20 [facility] [address] [id number] Nov, Dental examination Z01.20 [facility] [address] [id number] Nov, Encounter for dental exam an d cleaning w/o abnormal findings Z01.20 [facility] [address] [place] [id number] [place] [address] Sep, Bipolar disorder, unspecifie d F31.9 ; Posttraumatic stress disorder F43.10 and Attention deficit hyperactivity disorder (ADHD), combined type F90.2 [place] [id number] [address] Aug, Posttraumatic stress disorde r F43.10 [place] [address] [place] [id number] [address] [place] [address] 15 Jul, 2017 Other manager terminal (current) dr nubia briceno Z79.899 [facility] [address] [facility] [id number] [address] [place] [address] 11 Jul, 2017 Bipolar disorder, unspecifie d F31.9 ; Attention deficit hyperactivity disorder (ADHD), combined type F90.2 and Posttraumatic stress disorder F43.10 [facility] [address] [place] [id number] [address] [place] [address] Jun, Bipolar disorder, unspecifie d F31.9 ; Posttraumatic stress disorder F43.10 ; Attention deficit hyperactivity disorder (ADHD), combined type F90.2 and Other manager terminal (current) drug therapy Z79.899 [facility] [address] [id number] [address] [place] [address] March, Bipolar disorder, unspecifie d F31.9 ; Posttraumatic stress disorder F43.10 and Attention deficit hyperactivity disorder (ADHD), combined type F90.2 [facility] [address] [id number] [address] [place] [address] Dec, Bipolar disorder, unspecifie d F31.9 ; Posttraumatic stress disorder F43.10 and Attention deficit hyperactivity disorder (ADHD), combined type F90.2 [facility] [address] [id number] [address] [place] [address] Dec, [facility] [address] [facility] [id number] [address] [place] [address] Sep, [facility] [address] [facility] [id number] [address] [place] [address] Aug, Bipolar disorder, unspecifie d F31.9 ; Posttraumatic stress disorder F43.10 and Attention deficit hyperactivity disorder (ADHD), combined type F90.2 [facility] [address] [facility] [id number] [address] [place] [address] Jun, [facility] [address] [facility] [id number] [address] [place] [address] March, [facility] [address] [facility] [id number] [address] [place] [address] Feb, Bipolar disorder, unspecifie d F31.9 ; Attention deficit hyperactivity disorder (ADHD), combined type F90.2 and Posttraumatic stress disorder F43.10 [facility] [address] [id number] [address] [place] [address] Feb, [facility] [address] [facility] [id number] [address] [place] [address] Feb, [facility] [address] [facility] [id number] [address] [place] [address] Feb, [facility] [address] [facility] [id number] [address] [place] [address] Jan, [facility] [address] [id number] [address] [place] [address] [id number] Dec, Dental examination Z01.20 [facility] [address] [facility] [id number] [address] [place] [address] Sep, [facility] [address] [facility] [id number] [address] [place] [address] Sep, Attention deficit hyperactiv ity disorder (ADHD), combined type F90.2 ; Posttraumatic stress disorder F43.10 and Bipolar disorder, unspecified F31.9 [facility] [address] [facility] [id number] [address] [place] [address] Aug, [facility] [address] [facility] [id number] [address] [place] [address] Aug, [facility] [address] [facility] [id number] [address] [place] [address] Jul, [facility] [address] [facility] [id number] [address] [place] [address] May, Bipolar disorder, unspecifie d 296.80 ; 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.00 and Posttraumatic stress disorder 309.81 [facility] [address] [facility] [id number] [address] [place] [address] May, [facility] [address] [facility] [id number] [address] [place] [address] May, [facility] [address] [facility] [id number] [address] [place] [address] May, [facility] [address] [facility] [id number] [address] [place] [address] Apr, [facility] [address] [facility] [id number] [address] [place] [address] Apr, [facility] [address] [id number] [address] [place] [address], [place] [address] Apr, [facility] [address] [id number] [address] [place] [address], [place] [address] March, [facility] [address] [id number] [address] [place] [address], [place] [address] March, [facility] [address] [id number] [address] [place] [address], [place] [address] March, [facility] [address] [id number] [address] [place] [address], [place] [address] Feb, [facility] [address] [id number] [address] [place] [address], [place] [address] Feb, [facility] [address] [id number] [address] [place] [address], [place] [address] Jan, [facility] [address] [id number] [address] [place] [address], [place] [address] Jan, [facility] [address] [id number] [address] [place] [address], [place] [address] Jan, [facility] [address] [id number] [address] [place] [address], [place] [address] Jan, [facility] [address] [id number] [address] [place] [address], [place] [address] Jan, [facility] [address] [id number] [address] [place] [address], [place] [address] Jan, [facility] [address] [id number] [address] [place] [address], [place] [address] Jan, [facility] [address] [id number] [address] [place] [address], [place] [address] Jan, [facility] [address] [id number] [address] [place] [address], [place] [address] Jan, [facility] [address] [id number] [address] [place] [phone] Jan, [facility] [address] [id number] [address] [place] [address], [place] [address] Dec, 2014 [facility] [address] [id number] [address] [place] [address], [place] [address] Dec, 2014 [facility] [address] [id number] [address] [place] [address], [place] [address] Dec, 2014 [facility] [address] [id number] [address] [place] [address], [place] [address] Dec, 2014 [facility] [address] [id number] [address] [place] [address], [place] [address] Oct, [facility] [address] [id number] [address] [place] [address], [place] [address] Oct, [facility] [address] [id number] [address] [place] [address], [place] [address] Oct, [facility] [address] [id number] [address] [place] [address], [place] [address] Oct, [facility] [address] [id number] [address] [place] [address], [place] [address] Oct, [facility] [address] [id number] [address] [place] [address], [place] [address] Oct, [facility] [address] [id number] [address] [place] [address], [place] [address] Oct, [facility] [address] [id number] [address] [place] [address], [place] [address] Sep, [facility] [address] [id number] [address] [place] [address], [place] [address] Sep, [facility] [address] [id number] [address] [place] [address], [place] [address] Sep, [facility] [address] [id number] [address] [place] [address], [place] [address] Sep, [facility] [address] [id number] [address] [place] [address], [place] [address] Sep, [facility] [address] [id number] [address] [place] [address], [place] [address] Sep, [facility] [address] [id number] [address] [place] [address], [place] [address] Sep, [facility] [address] [id number] [address] [place] [address], [place] [address] Sep, [facility] [address] [id number] [address] [place] [address], [place] [address] Aug, [facility] [address] [id number] [address] [place] [address], [place] [address] Aug, [facility] [address] [id number] [address] [place] [address], [place] [address] Aug, [facility] [address] [id number] [address] [place] [address], [place] [address] Aug, [facility] [address] [id number] [address] [place] [address], [place] [address] Jul, [facility] [address] [id number] [address] [place] [address], [place] [address] Jul, [facility] [address] [id number] [address] [place] [address], [place] [address] Jul, [facility] [address] [id number] [address] [place] [address], [place] [address] Jul, [facility] [address] [id number] [address] [place] [address], [place] [address] Jun, [facility] [address] [id number] [address] [place] [address], [place] [address] Jun, [facility] [address] [id number] [address] [place] [address], [place] [address] Jun, [facility] [address] [id number] [address] [place] [address], [place] [address] Jun, [facility] [address] [id number] [facility] [place] [address] May, [facility] [address] [id number] [address] [place] [address], [place] [address] May, [facility] [address] [id number] [address] [place] [address], [place] [address] May, [facility] [address] [id number] [address] [place] [address], [place] [address] May, [facility] [address] [id number] [address] [place] [address], [place] [address] Apr, [facility] [address] [id number] [address] [place] [address], [place] [address] Apr, [facility] [address] [id number] [address] [place] [address], [place] [address] Apr, [facility] [address] [id number] [address] [place] [address], [place] [address] Apr, [facility] [address] [id number] [address] [place] [address], [place] [address] Apr, [facility] [address] [id number] [address] [place] [address], [place] [address] Apr, [facility] [address] [id number] [address] [place] [address], [place] [address] Apr, [facility] [address] [id number] [address] [place] [address], [place] [address] Apr, [facility] [address] [id number] [address] [place] [address], [place] [address] Apr, [facility] [address] [id number] [address] [place] [address], [place] [address] Apr, [facility] [address] [id number] [address] [place] [address], [place] [address] Apr, [facility] [address] [id number] [address] [place] [address], [place] [address] Apr, [facility] [address] [id number] [address] [place] [address], [place] [address] Apr, [facility] [address] [id number] [address] [place] [address], [place] [address] March, [facility] [address] [id number] [address] [place] [address], [place] [address] March, [facility] [address] [id number] [address] [place] [address], [place] [address] March, [facility] [address] [id number] [address] [place] [address], [place] [address] March, [facility] [address] [id number] [address] [place] [address], [place] [address] Jan, [facility] [address] [id number] [address] [place] [address], [place] [address] Jan, [facility] [address] [id number] [address] [place] [address], [place] [address] Jan, [facility] [address] [id number] [address] [place] [address], [place] [address] Jan, [facility] [address] [id number] [address] [place] [address], [place] [address] Jan, [facility] [address] [id number] [address] [place] [address], [place] [address] Jan, [facility] [address] [id number] [address] [place] [address], [place] [address] Dec, [facility] [address] [id number] [address] [place] [address], [place] [address] Dec, [facility] [address] [id number] [address] [place] [address], [place] [address] Dec, [facility] [address] [id number] [address] [place] [address], [place] [address] Dec, [facility] [address] [id number] [address] [place] [address], [place] [address] Nov, [facility] [address] [id number] [address] [place] [address], [place] [address] Nov, [facility] [address] [id number] [address] [place] [address], [place] [address] Nov, [facility] [address] [id number] [address] [place] [address], [place] [address] Nov, [facility] [address] [id number] [address] [place] [address], [place] [address] Oct, [facility] [address] [id number] [address] [place] [address], [place] [address] Oct, [facility] [address] [id number] [address] [place] [address], [place] [address] Oct, [facility] [address] [id number] [address] [place] [address], [place] [address] Oct, [facility] [address] [id number] [address] [place] [address], [place] [address] Oct, [facility] [address] [id number] [address] [place] [address], [place] [address] Oct, [facility] [address] [id number] [address] [place] [address], [place] [address] Oct, [facility] [address] [id number] [address] [place] [address], [place] [address] Oct, [facility] [address] [id number] [address] [place] [address], [place] [address] Sep, [facility] [address] [id number] [address] [place] [address], [place] [address] Sep, [facility] [address] [id number] [address] [place] [address], [place] [address] Jul, [facility] [address] [id number] [address] [place] [address], [place] [address] 12 Jul, 2013 [facility] [address] [id number] [address] [place] [address], [place] [address] 09 Jul, 2013 [facility] [address] [id number] [address] [place] [address], [place] [address] Jul, [facility] [address] [id number] [address] [place] [address], [place] [address] Jun, [facility] [address] [id number] [address] [place] [address], [place] [address] Jun, [facility] [address] [id number] [address] [place] [address], [place] [address] May, [facility] [address] [id number] [address] [place] [address], [place] [id number] Apr, [facility] [address] [id number] [address] [place] [address], [place] [address] Apr, [facility] [address] [id number] [address] [place] [address], [place] [address] Apr, [facility] [address] [id number] [address] [place] [address], [place] [address] March, [facility] [address] [id number] [address] [place] [address], [place] [address] March, [facility] [address] [id number] [address] [place] [address], [place] [address] Feb, [facility] [address] [id number] [address] [place] [address], [place] [address] Jan, [facility] [address] [id number] [address] [place] [address], [place] [address] Jan, [facility] [address] [id number] [address] [place] [address], [place] [address] Dec, [facility] [address] [id number] [address] [place] [address], [place] [address] Dec, [facility] [address] [id number] [address] [place] [address], [place] [address] Nov, [facility] [address] [id number] [address] [place] [address], [place] [address] Nov, [facility] [address] [id number] [address] [place] [address], [place] [address] Nov, [facility] [address] [id number] [address] [place] [address], [place] [id number] Oct, [facility] [address] [id number] [address] [place] [address], [place] [address] Oct, [facility] [address] [id number] [address] [place] [address], [place] [address] Oct, [facility] [address] [id number] [address] [place] [address], [place] [address] Oct, [facility] [address] [id number] [address] [place] [address], [place] [address] Sep, [facility] [address] [id number] [address] [place] [address], [place] [address] Sep, [facility] [address] [id number] [address] [place] [address], [place] [address] Sep, [facility] [address] [id number] [address] [place] [address], [place] [id number] Sep, [facility] [address] [id number] [address] [place] [id number] Sep, [facility] [address] [id number] [address] [place] [address], [place] [address] Sep, [facility] [address] [id number] [address] [place] [address], [place] [address] Aug, [facility] [address] [id number] [address] [place] [address], [place] [address] Jul, [facility] [address] [id number] [address] [place] [id number] Jul, [facility] [address] [id number] [address] [place] [address], [place] [id number] 18 Jul, 2012 [facility] [address] [id number] [address] [place] [address], [place] [address] Jul, [facility] [address] [id number] [address] [place] [address], [place] [address] Jun, [facility] [address] [id number] [address] [place] [address], [place] [address] Jun, [facility] [address] [id number] [address] [place] [address], [place] [address] Jun, [facility] [address] [address] [id number] [address] [place] [address], [place] [address] Jun, [facility] [address] [id number] [address] [place] [address], [place] [address] May, [facility] [address] [id number] [address] [place] [address], [place] [address] Apr, [facility] [address] [id number] [address] [place] [address], [place] [address] March, [facility] [address] [id number] [address] [place] [address], [place] [address] March, [facility] [address] [id number] [address] [place] [address], [place] [address] March, [facility] [address] [id number] [address] [place] [address], [place] [address] Feb, [facility] [address] [id number] [address] [place] [address], [place] [address] Feb, [facility] [address] [id number] [address] [place] [address], [place] [address] Jan, [facility] [address] [id number] [address] [place] [address], [place] [address] Jan, [facility] [address] [id number] [address] [place] [address], [place] [address] Jan, [facility] [address] [id number] [address] [place] [address], [place] [address] Dec, [facility] [address] [id number] [address] [place] [address], [place] [address] Dec, [facility] [address] [id number] [address] [place] [address], [place] [address] Nov, [facility] [address] [id number] [address] [place] [address], [place] [address] Nov, [facility] [address] [id number] [address] [place] [address], [place] [address] Nov, [facility] [address] [id number] [address] [place] [address], [place] [address] Nov, [facility] [address] [id number] [address] [place] [address], [place] [address] Nov, [facility] [address] [id number] [address] [place] [address], [place] [address] Oct, [facility] [address] [id number] [address] [place] [address], [place] [address] Oct, [facility] [address] [id number] [address] [place] [address], [place] [address] Oct, [facility] [address] [id number] [address] [place] [address], [place] [address] Oct, [facility] [address] [id number] [address] [place] [address], [place] [address] Sep, [facility] [address] [id number] [address] [place] [address], [place] [address] Sep, [facility] [address] [id number] [address] [place] [address], [place] [address] 17 Sep, 2011 [facility] [address] [id number] [address] [place], [place] [address] [address] Aug, [facility] [address] [facility] [id number] [address] [place] [id number] Oct, [facility] [address] [facility] [id number] [address] [place] [id number] Oct, [facility] [address] [facility] [id number] [address] [place] [id number] Oct, [facility] [address] [facility] [id number] [address] [place] [address] Oct, IMMUNIZATIONS No Known Immunizations SOCIAL HISTORY Never Assessed REASON FOR VISIT ADULT OUTREACH CLASS [facility] PLAN OF CARE Activity Details Follow Up prn Reason: VITAL SIGNS MEDICATIONS Medication Instructions Dosage Frequency Start Date End Date Duration S tatus Trazodone HCl 100 mg Orally Once a day 1 tablet 24h Active Intuniv 2 TAKE ONE TABLET BY MOUTH DAILY 30 Active DDAVP 0.2 mg TAKE ONE TABLET BY MOUTH DAILY Active Intuniv 2 mg Orally Once a day 1 tablet 24h Active Zoloft 100 mg Orally Once a day 1 tablet 24h Active Zoloft 100 Orally Once a day 1 tablet 24h 30 Ac tive BusPIRone HCl 5 mg Orally in am once a day 1 tablet 24h Active Toviaz 4 MG Orally Once a day 1 tablet 24h U nknown Abilify 20 TAKE ONE TABLET BY MOUTH DAILY 30 Active Abilify 20 mg Orally Once a day 1 tablet 24h Feb, Active Xanax 0.25 MG Orally once daily 1 tablet 24h Sep, 30 days Active DDAVP 0.1 TAKE ONE TABLET BY MOUTH DAILY 30 Active Triamcinolone Acetonide 0.1 % Externally Twice a day 1 appli cation to affected area 12h Feb, 7 days Active BusPIRone HCl 5 TAKE ONE TABLET BY MOUTH EVERY MORNING 30 Active Zyprexa Zydis 5 MG Orally as needed Once a day 1 tablet on the tongue and allow to dissolve 24h Active Clonidine HCl 0.1 MG Orally twice a day 1 tablet 12h Active Trazodone HCl 100 Orally Once a day 1 tablet 24h 30 Active Clonidine HCl 0.1 Orally twice a day 1 tablet 12h 30 Active Loratadine 10 MG Orally Once a day 1 tablet 24h Unknown RESULTS No Results PROCEDURES Procedure Date Ordered Result Body Site PERIODIC ORAL EXAMINATION Jun 22, 2018 INTRAORL-PERIAPICAL 1 FILM [id number] Jun 22, 2018 TOPICAL FLUORIDE VARNISH Jun 22, 2018 INTRAORL-PERIAPICAL EA ADD FILM Jun 22, 2018 INTRAORL-PERIAPICAL EA ADD FILM Jun 22, 2018 PROPHYLAXIS - ADULT Jun 22, 2018 INTRAORL-PERIAPICAL EA ADD FILM Jun 22, 2018 INSTRUCTIONS MEDICATIONS ADMINISTERED No Known Medications MEDICAL (GENERAL) HISTORY Type Description Date Medical History Guardian requests that we do not explain any treatment to patient!
--- OUTSIDE RECORDS SUMMARY | 2020-04-25 15:00 | XMS REPORT ---
Author Author Ronna HUFF [facility] Address [address] [place] [address] Care Team Providers Care Investigator Cash Shortage Name Role Phone DARIA TYRA Unavailable PROBLEMS Type Condition ICD9-CM Code FGM37-QE Code Onset Dates Condition S tatus SNOMED Code Problem Encounter for long-term (current) use of other medications V58.69 Active 985724967 Problem Bipolar disorder, unspecified F31.9 Active 76853105 Problem Posttraumatic stress disorder F43.10 Active 78728937 Problem Posttraumatic stress disorder 309.81 Active 19809915 Problem 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 Active 11592433 Problem Attention deficit hyperactivity disorder (ADHD), combi dylon type F90.2 Active 952606588 Problem Bipolar disorder, unspecified 296.80 Active 73399064 ALLERGIES No Information ENCOUNTERS Encounter Location Date Diagnosis [facility], [place] [address] [facility] [id number] [address] [place] [address] Sep, [facility] [place] [address] [facility] [id number] [address] [place] [address] Jul, Bipolar disorder, unspecifie d F31.9 [facility], [place] [address] [facility] [id number] [address] [place] [address] Jun, Bipolar disorder, unspecifie d F31.9 [facility], [place] [address] [facility] [id number] [address] [place] [address] Jun, [facility] [place] [address] [facility] [id number] [address] [place] [address] Jun, Bipolar disorder, unspecifie d F31.9 ; Attention deficit hyperactivity disorder (ADHD), combined type F90.2 ; Posttraumatic stress disorder F43.10 and Other skilled nursing (current) drug therapy Z79.899 [place] [id number] [facility] [id number] [address] [place] [id number] Jun, Dental examination Z01.20 [facility], [place] [address] [address] May, [facility] [place] [address] [place] [id number] [place] [address] Apr, Bipolar disorder, unspecifie d F31.9 [facility], [place] [address] [place] [id number] [place] [address] March, Bipolar disorder, unspecifie d F31.9 ; Attention deficit hyperactivity disorder (ADHD), combined type F90.2 and Posttraumatic stress disorder F43.10 [facility], [place] [address] [address] Feb, [facility] [address] [address] Feb, Insect bite (nonvenomous), l eft knee, initial encounter S80.262A and Bitten or stung by nonvenomous insect and other nonvenomous arthropods, initial encounter W57.XXXA [facility], [place] [address] [place] [id number] [address] [place] [address] Feb, Bipolar disorder, unspecifie d F31.9 [facility] [address] [place] [id number] [address] [place] [id number] Feb, Dental examination Z01.20 [facility], [place] [address] [place] [id number] [address] [place] [address] Feb, Bipolar disorder, unspecifie d F31.9 ; Attention deficit hyperactivity disorder (ADHD), combined type F90.2 and Posttraumatic stress disorder F43.10 [facility] [address] [facility] [id number] [address] [place] [address] [id number] Feb, Dental examination Z01.20 [facility], [place] [address] [place] [id number] [address] [place] [address] Jan, Bipolar disorder, unspecifie d F31.9 [facility] [place] [address] [facility] [id number] [address] [place] [address] Jan, Attention deficit hyperactiv ity disorder (ADHD), combined type F90.2 [facility] [place] [address] [facility] [id number] [address] [place] [address] Dec, Posttraumatic stress disorde r F43.10 [facility], [place] [address] [facility] [id number] [address] [place] [address] Dec, Posttraumatic stress disorde r F43.10 [facility] [address] [place] [id number] Nov, Dental examination Z01.20 [facility] [address] [id number] Nov, Encounter for dental exam an d cleaning w/o abnormal findings Z01.20 [facility] [address] [id number] Nov, Dental examination Z01.20 [facility], [place] [address] [address] Sep, Bipolar disorder, unspecifie d F31.9 ; Posttraumatic stress disorder F43.10 and Attention deficit hyperactivity disorder (ADHD), combined type F90.2 [facility], [place] [address] [address] Aug, Posttraumatic stress disorde r F43.10 [facility], [place] [address] [place] [id number] [address] [place] [id number] 15 Jul, 2017 Other skilled nursing (current) dr nubia briceno Z79.899 [facility], [place] [address] [place] [id number] [address] [place] [address] 11 Jul, 2017 Bipolar disorder, unspecifie d F31.9 ; Attention deficit hyperactivity disorder (ADHD), combined type F90.2 and Posttraumatic stress disorder F43.10 [facility], [place] [address] [place] [id number] [address] [place] [address] Jun, Bipolar disorder, unspecifie d F31.9 ; Posttraumatic stress disorder F43.10 ; Attention deficit hyperactivity disorder (ADHD), combined type F90.2 and 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.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 [facility] [place] [address] [facility] [id number] [address] [place] [address] March, Bipolar disorder, unspecifie d F31.9 ; Posttraumatic stress disorder F43.10 and Attention deficit hyperactivity disorder (ADHD), combined type F90.2 [facility], [place] [address] [id number] [address] [place] [address] Dec, Bipolar disorder, unspecifie d F31.9 ; Posttraumatic stress disorder F43.10 and Attention deficit hyperactivity disorder (ADHD), combined type F90.2 [facility] [place] [address] [facility] [id number] [address] [place] [address] Dec, [facility], [place] [address] [id number] [address] [place] [address] Sep, [facility] [place] [address] [facility] [id number] [address] [place] [address] Aug, Bipolar disorder, unspecifie d F31.9 ; Posttraumatic stress disorder F43.10 and Attention deficit hyperactivity disorder (ADHD), combined type F90.2 [facility] [place] [address] [facility] [id number] [address] [place] [address] Jun, [facility] [place] [address] [id number] [address] [place] [address] March, [facility] [place] [address] [id number] [address] [place] [address] Feb, Bipolar disorder, unspecifie d F31.9 ; Attention deficit hyperactivity disorder (ADHD), combined type F90.2 and Posttraumatic stress disorder F43.10 [facility] [place] [address] [facility] [id number] [address] [place] [address] Feb, [facility] [place] [address] [facility] [id number] [address] [place] [address] Feb, [facility] [place] [address] [facility] [id number] [address] [place] [address] Feb, [facility] [place] [address] [facility] [id number] [address] [place] [address] Jan, [facility] [address] [id number] [address] [place] [address] [id number] Dec, Dental examination Z01.20 [facility], [place] [address] [facility] [id number] [address] [place] [address] Sep, [facility] [place] [address] [facility] [id number] [address] [place] [address] Sep, Attention deficit hyperactiv ity disorder (ADHD), combined type F90.2 ; Posttraumatic stress disorder F43.10 and Bipolar disorder, unspecified F31.9 [facility], [place] [address] [facility] [id number] [address] [place] [address] Aug, [facility] [place] [address] [facility] [id number] [address] [place] [address] Aug, [facility] [place] [address] [facility] [id number] [address] [place] [address] Jul, [facility], [place] [address] [facility] [id number] [address] [place] [address] May, Bipolar disorder, unspecifie d 296.80 ; 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.00 and Posttraumatic stress disorder 309.81 [facility], [place] [address] [facility] [id number] [address] [place] [address] May, [facility], [place] [address] [facility] [id number] [address] [place] [address] May, [facility], [place] [address] [facility] [id number] [address] [place] [address] May, [facility], [place] [address] [id number] [address] [place] [address], [place] [address] Apr, [facility] [address] [id number] [address] [place] [address], [place] [address] Apr, [facility] [address] [id number] [address] [place] [address], [place] [address] Apr, [facility] [address] [id number] [address] [place] [address], [place] [address] March, [facility] [address] [id number] [address] [place] [address], [place] [address] March, [facility] [address] [id number] [address] [place] [address], [place] [address] March, [facility] [address] [id number] [address] [place] [address], [place] [address] Feb, [facility] [address] [id number] [address] [place] [address], [place] [address] Feb, [facility] [address] [id number] [address] [place] [address], [place] [address] Jan, [facility] [address] [id number] [address] [place] [address], [place] [address] Jan, [facility] [address] [id number] [address] [place] [address], [place] [address] Jan, [facility] [address] [id number] [address] [place] [address], [place] [address] Jan, [facility] [address] [id number] [address] [place] [address], [place] [address] Jan, [facility] [address] [id number] [address] [place] [address], [place] [address] Jan, [facility] [address] [id number] [address] [place] [address], [place] [address] Jan, [facility] [address] [id number] [address] [place] [address], [place] [address] Jan, [facility] [address] [id number] [address] [place] [address], [place] [address] Jan, 2014 [facility] [address] [id number] [address] [place] [address], [place] [address] Jan, 2014 [facility] [address] [id number] [address] [place] [address], [place] [address] Dec, 2014 [facility] [address] [id number] [address] [place] [address], [place] [address] Dec, 2014 [facility] [address] [id number] [address] [place] [address], [place] [address] Dec, 2014 [facility] [address] [id number] [address] [place] [address], [place] [address] Dec, 2014 [facility] [address] [id number] [address] [place] [address], [place] [address] Oct, [facility] [address] [id number] [address] [place] [address], [place] [address] Oct, [facility] [address] [id number] [address] [place] [address], [place] [address] Oct, [facility] [address] [id number] [address] [place] [address], [place] [address] Oct, [facility] [address] [id number] [address] [place] [address], [place] [address] Oct, [facility] [address] [id number] [address] [place] [address], [place] [address] Oct, [facility] [address] [id number] [address] [place] [address], [place] [address] Oct, [facility] [address] [id number] [address] [place] [address], [place] [address] Sep, [facility] [address] [id number] [address] [place] [address], [place] [address] Sep, [facility] [address] [id number] [address] [place] [address], [place] [address] Sep, [facility] [address] [id number] [address] [place] [address], [place] [address] Sep, [facility] [address] [id number] [address] [place] [address], [place] [address] Sep, [facility] [address] [id number] [address] [place] [address], [place] [address] Sep, [facility] [address] [id number] [address] [place] [address], [place] [address] Sep, [facility] [address] [id number] [address] [place] [address], [place] [address] Sep, [facility] [address] [id number] [address] [place] [address], [place] [address] Aug, [facility] [address] [id number] [address] [place] [address], [place] [address] Aug, [facility] [address] [id number] [address] [place] [address], [place] [address] Aug, [facility] [address] [id number] [address] [place] [address], [place] [address] Aug, [facility] [address] [id number] [address] [place] [address], [place] [address] Jul, [facility] [address] [id number] [address] [place] [address], [place] [address] Jul, [facility] [address] [id number] [address] [place] [address], [place] [address] Jul, [facility] [address] [id number] [address] [place] [address], [place] [address] Jul, [facility] [address] [id number] [address] [place] [address], [place] [address] Jun, [facility] [address] [id number] [address] [place] [address], [place] [address] Jun, [facility] [address] [id number] [facility] [place] [address] Jun, [facility] [address] [id number] [address] [place] [address], [place] [address] Jun, [facility] [address] [id number] [facility] [place] [address] May, [facility] [address] [id number] [address] [place] [address], [place] [address] May, [facility] [address] [id number] [address] [place] [address], [place] [address] May, [facility] [address] [id number] [address] [place] [address], [place] [address] May, [facility] [address] [id number] [address] [place] [address], [place] [address] Apr, [facility] [address] [id number] [address] [place] [address], [place] [address] Apr, [facility] [address] [id number] [address] [place] [address], [place] [address] Apr, [facility] [address] [id number] [address] [place] [address], [place] [address] Apr, [facility] [address] [id number] [address] [place] [address], [place] [address] Apr, [facility] [address] [id number] [address] [place] [address], [place] [address] Apr, [facility] [address] [id number] [address] [place] [address], [place] [address] Apr, [facility] [address] [id number] [address] [place] [address], [place] [address] Apr, [facility] [address] [id number] [address] [place] [address], [place] [address] Apr, [facility] [address] [id number] [address] [place] [address], [place] [address] Apr, [facility] [address] [id number] [facility] [place] [address] Apr, [facility] [address] [id number] [address] [place] [address], [place] [address] Apr, [facility] [address] [id number] [address] [place] [address], [place] [address] Apr, [facility] [address] [id number] [address] [place] [address], [place] [address] March, [facility] [address] [id number] [address] [place] [address], [place] [address] March, [facility] [address] [id number] [address] [place] [address], [place] [address] March, [facility] [address] [id number] [address] [place] [address], [place] [address] March, [facility] [address] [id number] [address] [place] [address], [place] [address] Jan, [facility] [address] [id number] [address] [place] [address], [place] [address] Jan, [facility] [address] [id number] [address] [place] [address], [place] [address] Jan, [facility] [address] [id number] [address] [place] [address], [place] [address] Jan, [facility] [address] [id number] [address] [place] [address], [place] [address] Jan, [facility] [address] [id number] [address] [place] [address], [place] [address] Jan, [facility] [address] [id number] [address] [place] [address], [place] [address] Dec, [facility] [address] [id number] [address] [place] [address], [place] [address] Dec, [facility] [address] [id number] [address] [place] [address], [place] [address] Dec, [facility] [address] [id number] [address] [place] [address], [place] [address] Dec, [facility] [address] [id number] [address] [place] [address], [place] [address] Nov, [facility] [address] [id number] [address] [place] [address], [place] [address] Nov, [facility] [address] [id number] [address] [place] [address], [place] [address] Nov, [facility] [address] [id number] [address] [place] [address], [place] [address] Nov, [facility] [address] [id number] [address] [place] [address], [place] [address] Oct, [facility] [address] [id number] [address] [place] [address], [place] [address] Oct, [facility] [address] [id number] [address] [place] [address], [place] [address] Oct, [facility] [address] [id number] [address] [place] [address], [place] [address] Oct, [facility] [address] [id number] [address] [place] [address], [place] [address] Oct, [facility] [address] [id number] [address] [place] [address], [place] [address] Oct, [facility] [address] [id number] [address] [place] [address], [place] [address] Oct, [facility] [address] [id number] [address] [place] [address], [place] [address] Oct, [facility] [address] [id number] [address] [place] [address], [place] [address] Sep, [facility] [address] [id number] [address] [place] [address], [place] [address] Sep, [facility] [address] [id number] [address] [place] [address], [place] [address] Jul, [facility] [address] [id number] [address] [place] [address], [place] [address] Jul, [facility] [address] [id number] [address] [place] [address], [place] [address] Jul, [facility] [address] [id number] [address] [place] [address], [place] [address] Jul, [facility] [address] [id number] [address] [place] [address], [place] [address] Jun, [facility] [address] [id number] [address] [place] [address], [place] [address] Jun, [facility] [address] [id number] [address] [place] [address], [place] [address] May, [facility] [address] [id number] [address] [place] [address], [place] [address] Apr, [facility] [address] [id number] [address] [place] [address], [place] [address] Apr, [facility] [address] [id number] [address] [place] [address], [place] [address] Apr, [facility] [address] [id number] [address] [place] [address], [place] [address] March, [facility] [address] [id number] [address] [place] [address], [place] [address] March, [facility] [address] [id number] [address] [place] [address], [place] [address] Feb, [facility] [address] [id number] [address] [place] [address], [place] [address] Jan, [facility] [address] [id number] [address] [place] [address], [place] [address] 05 Jan, 2013 [facility] [address] [id number] [address] [place] [address] Dec, [facility] [address] [id number] [address] [place] [address], [place] [address] Dec, [facility] [address] [id number] [address] [place] [address], [place] [address] Nov, [facility] [address] [id number] [address] [place] [address], [place] [address] Nov, [facility] [address] [id number] [address] [place] [address], [place] [address] Nov, [facility] [address] [id number] [address] [place] [address], [place] [address] Oct, [facility] [address] [id number] [address] [place] [address], [place] [address] Oct, [facility] [address] [id number] [address] [place] [address], [place] [address] Oct, [facility] [address] [id number] [address] [place] [address], [place] [address] Oct, [facility] [address] [id number] [address] [place] [address], [place] [address] Sep, [facility] [address] [id number] [address] [place] [address], [place] [address] Sep, [facility] [address] [id number] [address] [place] [address], [place] [address] Sep, [facility] [address] [id number] [address] [place] [address] Sep, [facility] [address] [id number] [address] [place] [address], [place] [address] Sep, [facility] [address] [id number] [address] [place] [address], [place] [address] Sep, [facility] [address] [id number] [address] [place] [address], [place] [address] Aug, [facility] [address] [id number] [address] [place] [address], [place] [address] 26 Jul, 2012 [facility] [address] [id number] [address] [place] [address], [place] [address] 19 Jul, 2012 [facility] [address] [id number] [address] [place] [address], [place] [address] 18 Jul, 2012 [facility] [address] [id number] [address] [place] [address], [place] [address] 14 Jul, 2012 [facility] [address] [id number] [address] [place] [address], [place] [address] Jun, [facility] [address] [id number] [address] [place] [address], [place] [address] Jun, [facility] [address] [id number] [address] [place] [address], [place] [address] Jun, [facility] [address] [id number] [address] [place] [address], [place] [address] Jun, [facility] [address] [id number] [address] [place] [address], [place] [address] May, [facility] [address] [id number] [address] [place] [address], [place] [address] Apr, [facility] [address] [id number] [address] [place] [address], [place] [address] March, [facility] [address] [id number] [address] [place] [address], [place] [id number] March, [facility] [address] [id number] [address] [place] [address], [place] [id number] March, [facility] [address] [id number] [address] [place] [address], [place] [address] Feb, [facility] [address] [id number] [address] [place] [address], [place] [address] Feb, [facility] [address] [id number] [address] [place] [address], [place] [address] Jan, [facility] [address] [id number] [address] [place] [address], [place] [address] Jan, [facility] [address] [id number] [address] [place] [address], [place] [address] Jan, [facility] [address] [id number] [address] [place] [address], [place] [address] Dec, [facility] [address] [id number] [address] [place] [address], [place] [address] Dec, [facility] [address] [id number] [address] [place] [address], [place] [address] Nov, [facility] [address] [id number] [address] [place] [address], [place] [address] Nov, [facility] [address] [id number] [address] [place] [address], [place] [address] Nov, [facility] [address] [id number] [address] [place] [address], [place] [address] Nov, [facility] [address] [id number] [address] [place] [address], [place] [address] Nov, [facility] [address] [id number] [address] [place] [address], [place] [address] Oct, [facility] [address] [id number] [address] [place] [address], [place] [address] Oct, [facility] [address] [id number] [address] [place] [address], [place] [address] Oct, [facility] [address] [id number] [address] [place] [address], [place] [address] Oct, [facility] [address] [id number] [address] [place] [address], [place] [address] Sep, [facility] [address] [id number] [address] [place] [address], [place] [address] Sep, [facility] [address] [id number] [address] [place] [phone] Sep, [facility] [place] [address] [facility] [id number] [address] [place] [id number] Aug, [facility] [place] [address] [facility] [id number] [address] [place] [id number] Oct, [facility] [place] [address] [facility] [id number] [address] [place] [phone] Oct, [facility] [place] [address] [facility] [id number] [address] [place] [id number] Oct, [facility] [place] [address] [facility] [id number] [address] [place] [phone] Oct, IMMUNIZATIONS No Known Immunizations SOCIAL HISTORY Never Assessed REASON FOR VISIT Medication question PLAN OF CARE VITAL SIGNS MEDICATIONS Unknown Medications RESULTS No Results PROCEDURES No Known procedures INSTRUCTIONS MEDICATIONS ADMINISTERED No Known Medications MEDICAL (GENERAL) HISTORY Type Description Date Medical History Guardian requests that we do not explain any treatment to patient!
--- OUTSIDE RECORDS SUMMARY | 2020-04-25 15:00 | XMS REPORT ---
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 Active 73867277 Problem Attention deficit hyperactivity disorder (ADHD), combi dylon type F90.2 Active 766769354 Problem Bipolar disorder, unspecified 296.80 Active [id number] ALLERGIES No Information ENCOUNTERS Encounter Location Date Diagnosis [facility] [address] [facility] [id number] [address] [place] [phone] Sep, [facility] [address] [facility] [id number] [address] [place] [phone] Jun, [facility] [address] [facility] [id number] [address] [place] [phone] Jun, Bipolar disorder, unspecifie d F31.9 ; Attention deficit hyperactivity disorder (ADHD), combined type F90.2 ; Posttraumatic stress disorder F43.10 and Other meterman (current) drug therapy Z79.899 [facility] [address] [id number] [address] [place] [address] [phone] Jun, Dental examination Z01.20 [facility] [address] [facility] [id number] [address] [place] [phone] May, [facility] [address] [facility] [id number] [address] [place] [phone] Apr, Bipolar disorder, unspecifie d F31.9 [facility] [address] [address] March, Bipolar disorder, unspecifie d F31.9 ; Attention deficit hyperactivity disorder (ADHD), combined type F90.2 and Posttraumatic stress disorder F43.10 [facility] [address] [place] [address] Feb, [facility] [address] [facility] [id number] [address] [place] [phone] Feb, Insect bite (nonvenomous), l eft knee, initial encounter S80.262A and Bitten or stung by nonvenomous insect and other nonvenomous arthropods, initial encounter W57.XXXA [facility] [address] [id number] Feb, Bipolar disorder, unspecifie d F31.9 [facility] [address] [id number] [address] [place] [address] [phone] Feb, Dental examination Z01.20 [facility] [id number] [place] [id number] Feb, Bipolar disorder, unspecifie d F31.9 ; Attention deficit hyperactivity disorder (ADHD), combined type F90.2 and Posttraumatic stress disorder F43.10 [facility] [address] [id number] [address] [place] [address] [phone] Feb, Dental examination Z01.20 [facility] [address] [id number] [address] [place] [phone] Jan, Bipolar disorder, unspecifie d F31.9 [facility] [address] [id number] [address] [place] [phone] Jan, Attention deficit hyperactiv ity disorder (ADHD), combined type F90.2 [facility] [address] [id number] [address] [place] [phone] Dec, Posttraumatic stress disorde r F43.10 [facility] [address] [facility] [id number] [address] [place] [phone] 12 Dec, 2017 Posttraumatic stress disorde r F43.10 [facility] [address] [id number] [address] [place] [address] [phone] Nov, Dental examination Z01.20 [facility] [address] [id number] [address] [place] [address] [id number] Nov, Dental examination Z01.20 [facility] [address] [id number] [address] [place] [address] [phone] Nov, Encounter for dental exam an d cleaning w/o abnormal findings Z01.20 [facility] [address] [facility] [id number] [address] [place] [phone] Sep, Bipolar disorder, unspecifie d F31.9 ; Posttraumatic stress disorder F43.10 and Attention deficit hyperactivity disorder (ADHD), combined type F90.2 [facility] [address] [id number] [address] [place] [phone] Aug, Posttraumatic stress disorde r F43.10 [facility] [address] [id number] [place] [phone] 15 Jul, 2017 Other skilled nursing (current) dr ug therapy Z79.899 [facility] [address] [facility] [id number] [address] [place] [id number] Jul, Bipolar disorder, unspecifie d F31.9 ; Attention deficit hyperactivity disorder (ADHD), combined type F90.2 and Posttraumatic stress disorder F43.10 [facility] [address] [facility] [id number] [address] [place] [phone] 09 Jun, 2017 Bipolar disorder, unspecifie d F31.9 ; Posttraumatic stress disorder F43.10 ; Attention deficit hyperactivity disorder (ADHD), combined type F90.2 and Other skilled nursing (current) drug therapy Z79.899 [facility] [address] [id number] [address] [place] [phone] March, Bipolar disorder, unspecifie d F31.9 ; Posttraumatic stress disorder F43.10 and Attention deficit hyperactivity disorder (ADHD), combined type F90.2 [facility] [address] [id number] [address] [place] [phone] Dec, Bipolar disorder, unspecifie d F31.9 ; Posttraumatic stress disorder F43.10 and Attention deficit hyperactivity disorder (ADHD), combined type F90.2 [facility] [address] [id number] [address] [place] [id number] Dec, [facility] [address] [id number] [address] [place] [phone] Sep, [facility] [address] [id number] [address] [place] [phone] Aug, Bipolar disorder, unspecifie d F31.9 ; Posttraumatic stress disorder F43.10 and Attention deficit hyperactivity disorder (ADHD), combined type F90.2 [facility] [address] [id number] [address] [place] [phone] Jun, [facility] [address] [id number] [address] [place] [phone] March, [facility] [address] [id number] [address] [place] [phone] Feb, Bipolar disorder, unspecifie d F31.9 ; Attention deficit hyperactivity disorder (ADHD), combined type F90.2 and Posttraumatic stress disorder F43.10 [facility] [address] [id number] [address] [place] [id number] Feb, [facility] [address] [id number] [address] [place] [phone] Feb, [facility] [address] [id number] [address] [place] [phone] Feb, [facility] [address] [id number] [address] [place] [phone] Jan, [facility] [address] [id number] [address] [place] [address] [id number] Dec, Dental examination Z01.20 [facility] [address] [facility] [id number] [address] [place] [phone] Sep, [facility] [address] [facility] [id number] [address] [place] [phone] Sep, Attention deficit hyperactiv ity disorder (ADHD), combined type F90.2 ; Posttraumatic stress disorder F43.10 and Bipolar disorder, unspecified F31.9 [facility] [address] [facility] [id number] [address] [place] [phone] Aug, [facility] [address] [facility] [id number] [address] [place] [phone] Aug, [facility] [address] [facility] [id number] [address] [place] [phone] Jul, [facility] [address] [facility] [id number] [address] [place] [phone] May, Bipolar disorder, unspecifie d 296.80 ; 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.00 and Posttraumatic stress disorder 309.81 [facility] [address] [facility] [id number] [address] [place] [phone] May, [facility] [address] [facility] [id number] [address] [place] [phone] May, [facility] [address] [facility] [id number] [address] [place] [phone] May, [facility] [address] [facility] [id number] [address] [place] [phone] Apr, [facility] [address] [facility] [id number] [address] [place] [phone] Apr, [facility] [address] [facility] [id number] [address] [place] [phone] Apr, [facility] [address] [id number] [facility] [place] [address] March, [facility] [address] [id number] [address] [place] [address], [place] [address] March, [facility] [address] [id number] [address] [place] [address], [place] [address] March, [facility] [address] [id number] [address] [place] [address], [place] [address] Feb, [facility] [address] [id number] [address] [place] [address], [place] [address] Feb, [facility] [address] [id number] [address] [place] [address], [place] [address] Jan, [facility] [address] [id number] [address] [place] [address], [place] [address] Jan, [facility] [address] [id number] [address] [place] [address], [place] [address] Jan, [facility] [address] [id number] [address] [place] [address], [place] [address] Jan, [facility] [address] [id number] [address] [place] [address], [place] [address] Jan, [facility] [address] [id number] [address] [place] [address], [place] [address] Jan, [facility] [address] [id number] [address] [place] [address], [place] [address] Jan, [facility] [address] [id number] [address] [place] [address], [place] [address] Jan, [facility] [address] [id number] [address] [place] [address], [place] [address] Jan, [facility] [address] [id number] [address] [place] [address], [place] [address] Jan, [facility] [address] [id number] [address] [place] [address], [place] [address] Dec, 2014 [facility] [address] [id number] [address] [place] [address], [place] [address] Dec, 2014 [facility] [address] [id number] [address] [place] [address], [place] [address] Dec, [facility] [address] [id number] [address] [place] [address], [place] [address] Dec, [facility] [address] [id number] [address] [place] [address], [place] [address] Oct, [facility] [address] [id number] [address] [place] [address], [place] [address] Oct, [facility] [address] [id number] [address] [place] [address], [place] [address] Oct, [facility] [address] [id number] [address] [place] [address], [place] [address] Oct, [facility] [address] [id number] [address] [place] [address], [place] [address] Oct, [facility] [address] [id number] [address] [place] [address], [place] [address] Oct, [facility] [address] [id number] [address] [place] [address], [place] [address] Oct, [facility] [address] [id number] [address] [place] [address], [place] [address] Sep, [facility] [address] [id number] [address] [place] [address], [place] [address] Sep, [facility] [address] [id number] [address] [place] [address], [place] [address] Sep, [facility] [address] [id number] [address] [place] [address], [place] [address] Sep, [facility] [address] [id number] [address] [place] [address], [place] [address] Sep, [facility] [address] [id number] [address] [place] [address], [place] [address] Sep, [facility] [address] [id number] [address] [place] [address], [place] [address] Sep, [facility] [address] [id number] [address] [place] [address], [place] [address] Sep, [facility] [address] [id number] [address] [place] [address], [place] [address] Aug, [facility] [address] [id number] [address] [place] [address], [place] [address] Aug, [facility] [address] [id number] [address] [place] [address], [place] [address] Aug, [facility] [address] [id number] [address] [place] [address], [place] [address] Aug, [facility] [address] [id number] [address] [place] [address], [place] [address] Jul, [facility] [address] [id number] [address] [place] [address], [place] [address] Jul, [facility] [address] [id number] [address] [place] [address], [place] [address] Jul, [facility] [address] [id number] [address] [place] [address], [place] [address] Jul, [facility] [address] [id number] [address] [place] [address], [place] [address] Jun, [facility] [address] [id number] [address] [place] [address], [place] [address] Jun, [facility] [address] [id number] [address] [place] [address], [place] [address] Jun, [facility] [address] [id number] [address] [place] [address], [place] [address] Jun, [facility] [address] [id number] [address] [place] [address], [place] [address] May, [facility] [address] [id number] [facility] [place] [address] May, [facility] [address] [id number] [address] [place] [address], [place] [address] May, [facility] [address] [id number] [address] [place] [address], [place] [address] May, [facility] [address] [id number] [address] [place] [address], [place] [address] Apr, [facility] [address] [id number] [address] [place] [address], [place] [address] Apr, [facility] [address] [id number] [address] [place] [address], [place] [address] Apr, [facility] [address] [id number] [address] [place] [address], [place] [address] Apr, [facility] [address] [id number] [address] [place] [address], [place] [address] Apr, [facility] [address] [id number] [address] [place] [address], [place] [address] Apr, [facility] [address] [id number] [address] [place] [address], [place] [address] Apr, [facility] [address] [id number] [address] [place] [address], [place] [address] Apr, [facility] [address] [id number] [address] [place] [address], [place] [address] Apr, [facility] [address] [id number] [address] [place] [address], [place] [address] Apr, [facility] [address] [id number] [address] [place] [address], [place] [address] Apr, [facility] [address] [id number] [address] [place] [address], [place] [address] Apr, [facility] [address] [id number] [address] [place] [address], [place] [address] Apr, [facility] [address] [id number] [address] [place] [address], [place] [address] March, [facility] [address] [id number] [address] [place] [address], [place] [address] March, [facility] [address] [id number] [address] [place] [address], [place] [address] March, [facility] [address] [id number] [address] [place] [address], [place] [address] March, [facility] [address] [id number] [address] [place] [address], [place] [address] Jan, [facility] [address] [id number] [address] [place] [address], [place] [address] Jan, [facility] [address] [id number] [address] [place] [address], [place] [address] Jan, [facility] [address] [id number] [address] [place] [address], [place] [address] Jan, [facility] [address] [id number] [address] [place] [address], [place] [address] Jan, [facility] [address] [id number] [address] [place] [address], [place] [address] Jan, [facility] [address] [id number] [address] [place] [address], [place] [address] Dec, [facility] [address] [id number] [address] [place] [address], [place] [address] Dec, [facility] [address] [id number] [address] [place] [address], [place] [address] Dec, [facility] [address] [id number] [address] [place] [address], [place] [address] Dec, [facility] [address] [id number] [address] [place] [address], [place] [address] Nov, [facility] [address] [id number] [address] [place] [address], [place] [address] Nov, [facility] [address] [id number] [address] [place] [address], [place] [address] Nov, [facility] [address] [id number] [address] [place] [address], [place] [address] Nov, [facility] [address] [id number] [address] [place] [address], [place] [address] Oct, [facility] [address] [id number] [address] [place] [address], [place] [address] Oct, [facility] [address] [id number] [address] [place] [address], [place] [address] Oct, [facility] [address] [id number] [address] [place] [address], [place] [address] Oct, [facility] [address] [id number] [address] [place] [address], [place] [address] Oct, [facility] [address] [id number] [address] [place] [address], [place] [address] Oct, [facility] [address] [id number] [address] [place] [address], [place] [address] Oct, [facility] [address] [id number] [address] [place] [address], [place] [address] Oct, [facility] [address] [id number] [address] [place] [address], [place] [address] Sep, [facility] [address] [id number] [address] [place] [address], [place] [address] Sep, [facility] [address] [id number] [address] [place] [address], [place] [address] Jul, [facility] [address] [id number] [address] [place] [address], [place] [address] Jul, [facility] [address] [id number] [address] [place] [address], [place] [address] Jul, [facility] [address] [id number] [address] [place] [address], [place] [address] Jul, [facility] [address] [id number] [address] [place] [address], [place] [address] Jun, [facility] [address] [id number] [address] [place] [address], [place] [address] Jun, [facility] [address] [id number] [address] [place] [address], [place] [address] May, [facility] [address] [id number] [address] [place] [address], [place] [address] Apr, [facility] [address] [id number] [address] [place] [address], [place] [address] Apr, [facility] [address] [id number] [address] [place] [address], [place] [address] Apr, [facility] [address] [id number] [address] [place] [address], [place] [address] March, [facility] [address] [id number] [address] [place] [address], [place] [address] March, [facility] [address] [id number] [address] [place] [address], [place] [address] Feb, [facility] [address] [id number] [address] [place] [address], [place] [address] Jan, [facility] [address] [id number] [address] [place] [address], [place] [address] Jan, [facility] [address] [id number] [address] [place] [address], [place] [address] Dec, [facility] [address] [id number] [address] [place] [address], [place] [address] Dec, [facility] [address] [id number] [address] [place] [address], [place] [address] Nov, [facility] [address] [id number] [address] [place] [address], [place] [address] Nov, [facility] [address] [id number] [address] [place] [address], [place] [address] Nov, [facility] [address] [id number] [address] [place] [address], [place] [address] Oct, [facility] [address] [id number] [address] [place] [address], [place] [address] Oct, [facility] [address] [id number] [address] [place] [address], [place] [address] Oct, [facility] [address] [id number] [address] [place] [address], [place] [address] Oct, [facility] [address] [id number] [address] [place] [address], [place] [address] Sep, [facility] [address] [id number] [address] [place] [address], [place] [address] Sep, [facility] [address] [id number] [address] [place] [address], [place] [address] Sep, [facility] [address] [id number] [address] [place] [address], [place] [address] Sep, [facility] [address] [id number] [address] [place] [address], [place] [address] 15 Sep, 2012 [facility] [address] [id number] [address] [place] [address], [place] [address] 15 Sep, 2012 [facility] [address] [id number] [address] [place] [address], [place] [address] Aug, [facility] [address] [id number] [address] [place] [address], [place] [address] 26 Jul, 2012 [facility] [address] [id number] [address] [place] [address], [place] [address] 19 Jul, 2012 [facility] [address] [id number] [address] [place] [address], [place] [address] Jul, [facility] [address] [id number] 26 [place] [address], [place] [address] Jul, [facility] [address] [id number] [address] [place] [address], [place] [address] Jun, [facility] [address] [id number] [address] [place] [address], [place] [address] Jun, [facility] [address] [id number] [address] [place] [address], [place] [address] Jun, [facility] [address] [id number] [address] [place] [address], [place] [address] Jun, [facility] [address] [id number] [address] [place] [address], [place] [address] May, [facility] [address] [id number] [address] [place] [address], [place] [address] Apr, [facility] [address] [id number] [address] [place] [address], [place] [address] March, [facility] [address] [id number] [address] [place] [address], [place] [address] March, [facility] [address] [id number] [address] [place] [address], [place] [address] March, [facility] [address] [id number] [address] [place] [address], [place] [address] Feb, [facility] [address] [id number] [address] [place] [address], [place] [address] Feb, [facility] [address] [id number] [address] [place] [address], [place] [address] Jan, [facility] [address] [id number] [address] [place] [address], [place] [address] Jan, [facility] [address] [id number] [address] [place] [address], [place] [address] Jan, [facility] [address] [id number] [address] [place] [address], [place] [address] Dec, [facility] [address] [id number] [address] [place] [address], [place] [address] 16 Dec, 2011 [facility] [address] [id number] [address] [place] [address], [place] [address] Nov, [facility] [address] [id number] [address] [place] [address], [place] [address] Nov, [facility] [address] [id number] [address] [place] [address], [place] [address] 13 Nov, 2011 [facility] [address] [id number] [address] [place] [address], [place] [address] Nov, [facility] [address] [id number] [address] [place] [address], [place] [address] Nov, [facility] [address] [id number] [address] [place] [address], [place] [address] Oct, [facility] [address] [id number] [address] [place] [address], [place] [address] Oct, [facility] [address] [id number] [address] [place] [address], [place] [address] 05 Oct, 2011 [facility] [address] [id number] [address] [place] [address], [place] [address] Oct, [facility] [address] [id number] [address] [place] [address], [place] [address] Sep, [facility] [address] [id number] [address] [place] [address], [place] [address] Sep, [facility] [address] [id number] [address] [place] [address], [place] [address] 17 Sep, 2011 [facility] [address] [id number] [address] [place] [address], [place] [address] 13 Aug, 2011 [facility] [address] [id number] [address] [place] [address], [place] [address] Oct, [facility] [address] [facility] [id number] [address] [place] [id number] Oct, [facility] [address] [facility] [id number] [address] [place] [address] Oct, [facility] [address] [facility] [id number] [address] [place] [address] Oct, IMMUNIZATIONS No Known Immunizations SOCIAL HISTORY [...]
--- OUTSIDE RECORDS SUMMARY | 2020-04-25 15:00 | XMS REPORT ---
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 [address] [facility] [id number] [address] [place] [address] Sep, [facility] [address] [facility] [id number] [address] [place] [address] Jun, Bipolar disorder, unspecifie d F31.9 [facility] [address] [facility] [id number] [address] [place] [address] Jun, [facility] [address] [facility] [id number] [address] [place] [address] Jun, Bipolar disorder, unspecifie d F31.9 ; Attention deficit hyperactivity disorder (ADHD), combined type F90.2 ; Posttraumatic stress disorder F43.10 and Other intermission coordinator (current) drug therapy Z79.899 [facility] [address] [id number] [address] [place] [id number] 07 Jun, [address] [facility] [address] [id number] [address] [place] [address] May, [facility] [address] [facility] [id number] [address] [place] [address] Apr, Bipolar disorder, unspecifie d F31.9 [facility] [address] [facility] [id number] [address] [place] [address] March, Bipolar disorder, unspecifie d F31.9 ; Attention deficit hyperactivity disorder (ADHD), combined type F90.2 and Posttraumatic stress disorder F43.10 [facility] [address] [facility] [id number] [address] [place] [address] Feb, [facility] [address] [facility] [id number] [address] [place] [address] Feb, Insect bite (nonvenomous), l eft knee, initial encounter S80.262A and Bitten or stung by nonvenomous insect and other nonvenomous arthropods, initial encounter W57.XXXA [facility] [address] [facility] [id number] [address] [place] [address] Feb, Bipolar disorder, unspecifie d F31.9 [facility] [address] [id number] [address] [place] [id number] Feb, Dental examination Z01.20 [facility] [address] [facility] [id number] [address] [place] [id number] Feb, Bipolar disorder, unspecifie d F31.9 ; Attention deficit hyperactivity disorder (ADHD), combined type F90.2 and Posttraumatic stress disorder F43.10 [facility] [address] [id number] [address] [place] [id number] Feb, Dental examination Z01.20 [facility] [address] [facility] [id number] [address] [place] [address] Jan, Bipolar disorder, unspecifie d F31.9 [facility] [address] [facility] [id number] [address] [place] [address] Jan, Attention deficit hyperactiv ity disorder (ADHD), combined type F90.2 [facility] [address] [id number] [place] [address] Dec, Posttraumatic stress disorde r F43.10 [facility] [address] [facility] [id number] [address] [place] [address] Dec, Posttraumatic stress disorde r F43.10 [facility] [id number] [place] [id number] Nov, Dental examination Z01.20 [facility] [address] [id number] Nov, Dental examination Z01.20 [facility] [address] [id number] Nov, Encounter for dental exam an d cleaning w/o abnormal findings Z01.20 [facility] [address] [address] Sep, Bipolar disorder, unspecifie d F31.9 ; Posttraumatic stress disorder F43.10 and Attention deficit hyperactivity disorder (ADHD), combined type F90.2 [facility] [address] [id number] 09 Aug, 2017 Posttraumatic stress disorde r F43.10 [facility] [address] [id number] 15 Jul, 2017 Other longterm (current) dr nubia briceno Z79.899 [facility] [address] [id number] [address] [place] [id number] 11 Jul, 2017 Bipolar disorder, unspecifie d F31.9 ; Attention deficit hyperactivity disorder (ADHD), combined type F90.2 and Posttraumatic stress disorder F43.10 [facility] [address] [id number] [address] [place] [address] Jun, Bipolar disorder, unspecifie d F31.9 ; Posttraumatic stress disorder F43.10 ; Attention deficit hyperactivity disorder (ADHD), combined type F90.2 and Other intermission coordinator (current) drug therapy Z79.899 [facility] [address] [id number] [address] [place] [address] March, Bipolar disorder, unspecifie d F31.9 ; Posttraumatic stress disorder F43.10 and Attention deficit hyperactivity disorder (ADHD), combined type F90.2 [facility] [address] [id number] [address] [place] [address] Dec, Bipolar disorder, unspecifie d F31.9 ; Posttraumatic stress disorder F43.10 and Attention deficit hyperactivity disorder (ADHD), combined type F90.2 [facility] [address] [id number] [address] [place] [phone] Dec, [facility] [address] [id number] [address] [place] [phone] Sep, [facility] [address] [id number] [address] [place] [address] Aug, Bipolar disorder, unspecifie d F31.9 ; Posttraumatic stress disorder F43.10 and Attention deficit hyperactivity disorder (ADHD), combined type F90.2 [facility] [address] [id number] [address] [place] [phone] Jun, [facility] [address] [id number] [address] [place] [phone] March, [facility] [address] [id number] [address] [place] [phone] Feb, Bipolar disorder, unspecifie d F31.9 ; Attention deficit hyperactivity disorder (ADHD), combined type F90.2 and Posttraumatic stress disorder F43.10 [facility] [address] [id number] [address] [place] [phone] Feb, [facility] [address] [id number] [address] [place] [phone] Feb, [facility] [address] [id number] [address] [place] [phone] Feb, [facility] [address] [facility] [id number] [address] [place] [address] Jan, [facility] [address] [id number] [address] [place] [address] [id number] Dec, Dental examination Z01.20 [facility] [address] [facility] [id number] [address] [place] [address] Sep, [facility] [address] [facility] [id number] [address] [place] [phone] Sep, Attention deficit hyperactiv ity disorder (ADHD), combined type F90.2 ; Posttraumatic stress disorder F43.10 and Bipolar disorder, unspecified F31.9 [facility] [address] [facility] [id number] [address] [place] [address] Aug, [facility] [address] [facility] [id number] [address] [place] [phone] Aug, [facility] [address] [facility] [id number] [address] [place] [address] Jul, [facility] [address] [facility] [id number] [address] [place] [address] May, Bipolar disorder, unspecifie d 296.80 ; 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.00 and Posttraumatic stress disorder 309.81 [facility] [address] [facility] [id number] [address] [place] [address] May, [facility] [address] [facility] [id number] [address] [place] [address] May, [facility] [address] [facility] [id number] [address] [place] [address] May, [facility] [address] [facility] [id number] [address] [place] [address] Apr, [facility] [address] [facility] [id number] [address] [place] [phone] Apr, [facility] [address] [id number] [facility] [place] [address] Apr, [facility] [address] [id number] [address] [place] [address], [place] [address] March, [facility] [address] [id number] [address] [place] [address], [place] [address] March, [facility] [address] [id number] [address] [place] [address], [place] [address] March, [facility] [address] [id number] [address] [place] [address], [place] [address] Feb, [facility] [address] [id number] [address] [place] [address], [place] [address] Feb, [facility] [address] [id number] [address] [place] [address], [place] [address] Jan, [facility] [address] [id number] [address] [place] [address], [place] [address] Jan, [facility] [address] [id number] [address] [place] [address], [place] [address] Jan, [facility] [address] [id number] [address] [place] [address], [place] [address] Jan, [facility] [address] [id number] [address] [place] [address], [place] [address] Jan, [facility] [address] [id number] [address] [place] [address], [place] [address] Jan, [facility] [address] [id number] [address] [place] [address], [place] [address] Jan, [facility] [address] [id number] [address] [place] [address], [place] [address] Jan, [facility] [address] [id number] [address] [place] [address], [place] [address] Jan, [facility] [address] [id number] [address] [place] [address], [place] [address] Jan, [facility] [address] [id number] [address] [place] [address], [place] [address] Dec, 2014 [facility] [address] [id number] [address] [place] [address], [place] [address] Dec, 2014 [facility] [address] [id number] [address] [place] [address], [place] [address] Dec, 2014 [facility] [address] [id number] [address] [place] [address], [place] [address] Dec, 2014 [facility] [address] [id number] [address] [place] [address], [place] [address] Oct, [facility] [address] [id number] [address] [place] [address], [place] [address] Oct, [facility] [address] [id number] [address] [place] [address], [place] [address] Oct, [facility] [address] [id number] [address] [place] [address], [place] [address] Oct, [facility] [address] [id number] [address] [place] [address], [place] [address] Oct, [facility] [address] [id number] [address] [place] [address], [place] [address] Oct, [facility] [address] [id number] [address] [place] [address], [place] [address] Oct, [facility] [address] [id number] [address] [place] [address], [place] [address] Sep, [facility] [address] [id number] [address] [place] [address], [place] [address] Sep, [facility] [address] [id number] [address] [place] [address], [place] [address] Sep, [facility] [address] [id number] [address] [place] [address], [place] [address] Sep, [facility] [address] [id number] [address] [place] [address], [place] [address] Sep, [facility] [address] [id number] [address] [place] [address], [place] [address] Sep, [facility] [address] [id number] [address] [place] [address], [place] [address] Sep, [facility] [address] [id number] [address] [place] [address], [place] [address] Sep, [facility] [address] [id number] [address] [place] [address], [place] [address] Aug, [facility] [address] [id number] [address] [place] [address], [place] [address] Aug, [facility] [address] [id number] [address] [place] [address], [place] [address] Aug, [facility] [address] [id number] [address] [place] [address], [place] [address] Aug, [facility] [address] [id number] [address] [place] [address], [place] [address] Jul, [facility] [address] [id number] [address] [place] [address] Jul, [facility] [address] [id number] [address] [place] [address] Jul, [facility] [address] [id number] [address] [place] [address] Jul, [facility] [address] [id number] [address] [place] [address], [place] [address] Jun, [facility] [address] [id number] [address] [place] [address], [place] [address] Jun, [facility] [address] [id number] [address] [place] [address] Jun, [facility] [address] [id number] [address] [place] [address] Jun, [facility] [address] [id number] [address] [place] [address], [place] [address] May, [facility] [address] [id number] [address] [place] [address], [place] [address] May, [facility] [address] [id number] [address] [place] [address], [place] [address] May, [facility] [address] [id number] [address] [place] [address], [place] [address] May, [facility] [address] [id number] [address] [place] [address], [place] [address] Apr, [facility] [address] [id number] [address] [place] [address], [place] [address] Apr, [facility] [address] [id number] [address] [place] [address], [place] [address] Apr, [facility] [address] [id number] [address] [place] [address], [place] [address] Apr, [facility] [address] [id number] [address] [place] [address], [place] [address] Apr, [facility] [address] [id number] [address] [place] [address], [place] [address] Apr, [facility] [address] [id number] [address] [place] [address], [place] [address] Apr, [facility] [address] [id number] [address] [place] [address], [place] [address] Apr, [facility] [address] [id number] [address] [place] [address], [place] [address] Apr, [facility] [address] [id number] [address] [place] [address], [place] [address] Apr, [facility] [address] [id number] [address] [place] [address], [place] [address] Apr, [facility] [address] [id number] [facility] [place] [address] Apr, [facility] [address] [id number] [address] [place] [address], [place] [address] Apr, [facility] [address] [id number] [address] [place] [address], [place] [address] March, [facility] [address] [id number] [address] [place] [address], [place] [address] March, [facility] [address] [id number] [address] [place] [address], [place] [address] March, [facility] [address] [id number] [address] [place] [address], [place] [address] March, [facility] [address] [id number] [address] [place] [address], [place] [address] Jan, [facility] [address] [id number] [address] [place] [address], [place] [address] Jan, [facility] [address] [id number] [address] [place] [address], [place] [address] Jan, [facility] [address] [id number] [address] [place] [address], [place] [address] Jan, [facility] [address] [id number] [address] [place] [address], [place] [address] Jan, [facility] [address] [id number] [address] [place] [address], [place] [address] Jan, [facility] [address] [id number] [address] [place] [address], [place] [address] Dec, [facility] [address] [id number] [address] [place] [address], [place] [address] Dec, [facility] [address] [id number] [address] [place] [address], [place] [address] Dec, [facility] [address] [id number] [address] [place] [address], [place] [address] Dec, [facility] [address] [id number] [address] [place] [address], [place] [address] Nov, [facility] [address] [id number] [address] [place] [address], [place] [address] Nov, [facility] [address] [id number] [address] [place] [address], [place] [address] Nov, [facility] [address] [id number] [address] [place] [address], [place] [address] Nov, [facility] [address] [id number] [address] [place] [address], [place] [address] Oct, [facility] [address] [id number] [address] [place] [address], [place] [address] Oct, [facility] [address] [id number] [address] [place] [address], [place] [address] Oct, [facility] [address] [id number] [address] [place] [address], [place] [address] Oct, [facility] [address] [id number] [address] [place] [address], [place] [address] Oct, [facility] [address] [id number] [address] [place] [address], [place] [address] Oct, [facility] [address] [id number] [address] [place] [address], [place] [address] Oct, [facility] [address] [id number] [address] [place] [address], [place] [address] Oct, [facility] [address] [id number] [address] [place] [address], [place] [address] Sep, [facility] [address] [id number] [address] [place] [address], [place] [address] Sep, [facility] [address] [id number] [address] [place] [address], [place] [address] Jul, [facility] [address] [id number] [address] [place] [address], [place] [address] 12 Jul, 2013 [facility] [address] [id number] [address] [place] [address], [place] [address] 09 Jul, 2013 [facility] [address] [id number] [address] [place] [address], [place] [address] Jul, [facility] [address] [id number] [address] [place] [address], [place] [address] Jun, [facility] [address] [id number] [address] [place] [address], [place] [address] Jun, [facility] [address] [id number] [address] [place] [address], [place] [address] May, [facility] [address] [id number] [address] [place] [address], [place] [address] Apr, [facility] [address] [id number] [address] [place] [address], [place] [address] Apr, [facility] [address] [id number] [address] [place] [address], [place] [address] Apr, [facility] [address] [id number] [address] [place] [address], [place] [address] March, [facility] [address] [id number] [address] [place] [address], [place] [address] March, [facility] [address] [id number] [address] [place] [address], [place] [address] Feb, [facility] [address] [id number] [address] [place] [address], [place] [address] Jan, [facility] [address] [id number] [address] [place] [address], [place] [address] Jan, [facility] [address] [id number] [address] [place] [address], [place] [address] Dec, [facility] [address] [id number] [address] [place] [address], [place] [address] Dec, [facility] [address] [id number] [address] [place] [address], [place] [address] Nov, [facility] [address] [id number] [address] [place] [address], [place] [address] Nov, [facility] [address] [id number] [address] [place] [address], [place] [address] Nov, [facility] [address] [id number] [address] [place] [address], [place] [address] Oct, [facility] [address] [id number] [address] [place] [address], [place] [address] Oct, [facility] [address] [id number] [address] [place] [address], [place] [address] Oct, [facility] [address] [id number] [address] [place] [address], [place] [address] Oct, [facility] [address] [id number] [address] [place] [address], [place] [address] Sep, [facility] [address] [id number] [address] [place] [address], [place] [address] Sep, [facility] [address] [id number] [address] [place] [address], [place] [address] Sep, [facility] [address] [id number] [address] [place] [address], [place] [address] Sep, [facility] [address] [id number] [address] [place] [address], [place] [address] Sep, [facility] [address] [id number] [address] [place] [address], [place] [address] Sep, [facility] [address] [id number] [address] [place] [address], [place] [address] Aug, [facility] [address] [id number] [address] [place] [address], [place] [address] Jul, [facility] [address] [id number] [address] [place] [address] [place] [address] 19 Jul, 2012 [facility] [address] [id number] 66 [place] [address], [place] [address] 18 Jul, 2012 [facility] [address] [id number] [address] [place] [address], [place] [address] 14 Jul, 2012 [facility] [address] [id number] [address] [place] [address], [place] [address] Jun, [facility] [address] [id number] [address] [place] [address], [place] [address] Jun, [facility] [address] [id number] [address] [place] [address], [place] [address] Jun, [facility] [address] [id number] [address] [place] [address], [place] [address] Jun, [facility] [address] [id number] [address] [place] [address], [place] [address] May, [facility] [address] [id number] [address] [place] [address], [place] [address] Apr, [facility] [address] [id number] [address] [place] [address], [place] [address] March, [facility] [address] [id number] [address] [place] [address], [place] [address] March, [facility] [address] [id number] [address] [place] [address], [place] [address] March, [facility] [address] [id number] [address] [place] [address], [place] [address] Feb, [facility] [address] [id number] [address] [place] [address], [place] [address] Feb, [facility] [address] [id number] [address] [place] [address], [place] [address] Jan, [facility] [address] [id number] [address] [place] [address], [place] [address] Jan, [facility] [address] [id number] [address] [place] [address], [place] [address] Jan, [facility] [address] [id number] [address] [place] [address], [place] [address] Dec, [facility] [address] [id number] [address] [place] [address], [place] [address] Dec, [facility] [address] [id number] [address] [place] [address], [place] [address] Nov, [facility] [address] [id number] [address] [place] [address], [place] [address] Nov, [facility] [address] [id number] [address] [place] [address], [place] [address] Nov, [facility] [address] [id number] [address] [place] [address], [place] [address] Nov, [facility] [address] [id number] [address] [place] [address], [place] [address] Nov, [facility] [address] [id number] [address] [place] [address], [place] [address] Oct, [facility] [address] [id number] [address] [place] [address], [place] [address] Oct, [facility] [address] [id number] [address] [place] [address], [place] [address] Oct, [facility] [address] [id number] [address] [place] [address], [place] [address] Oct, [facility] [address] [id number] [address] [place] [address], [place] [address] Sep, [facility] [address] [id number] [address] [place] [address], [place] [address] Sep, [facility] [address] [id number] [address] [place] [address], [place] [address] Sep, [facility] [address] [id number] [address] [address] Aug, [facility] [address] [facility] [id number] [address] [place] [id number] Oct, [facility] [address] [facility] [id number] [address] [place] [address] Oct, [facility] [address] [facility] [id number] [address] [place] [id number] Oct, [facility] [address] [facility] [id number] [address] [place] [address] Oct, IMMUNIZATIONS No Known Immunizations SOCIAL HISTORY Never Assessed REASON FOR VISIT Refill request PLAN OF CARE VITAL SIGNS MEDICATIONS Unknown Medications RESULTS No Results PROCEDURES No Known procedures INSTRUCTIONS MEDICATIONS ADMINISTERED No Known Medications MEDICAL (GENERAL) HISTORY Type Description Date Medical History Guardian requests that we do not explain any treatment to patient!
--- OUTSIDE RECORDS SUMMARY | 2020-04-25 15:01 | XMS REPORT ---
Author Author Ronna MICHEL 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 Active 62259477 Problem Attention deficit hyperactivity disorder (ADHD), combi dylon type F90.2 Active 203512931 Problem Bipolar disorder, unspecified 296.80 Active 24511179 ALLERGIES No Known Allergies ENCOUNTERS Encounter Location Date Diagnosis [facility] [address] [facility] [id number] [address] [place] [address] Jun, [place] [id number] [place] [id number] Jun, [facility] [address] [facility] [id number] [address] [place] [address] May, [facility] [address] [facility] [id number] [address] [place] [address] Apr, Bipolar disorder, unspecifie d F31.9 [facility] [address] [facility] [id number] [address] [place] [address] March, Bipolar disorder, unspecifie d F31.9 ; Attention deficit hyperactivity disorder (ADHD), combined type F90.2 and Posttraumatic stress disorder F43.10 [facility] [address] [facility] [id number] [address] [place] [address] Feb, [facility] [address] [place] [id number] [address] [place] [address] Feb, Insect bite (nonvenomous), l eft knee, initial encounter S80.262A and Bitten or stung by nonvenomous insect and other nonvenomous arthropods, initial encounter W57.XXXA [facility] [address] [id number] Feb, Bipolar disorder, unspecifie d F31.9 [facility] [id number] [place] [address] [id number] Feb, Dental examination Z01.20 [facility] [address] [address] Feb, Bipolar disorder, unspecifie d F31.9 ; Attention deficit hyperactivity disorder (ADHD), combined type F90.2 and Posttraumatic stress disorder F43.10 [facility] [address] [id number] Feb, Dental examination Z01.20 [facility] [address] [address] Jan, Bipolar disorder, unspecifie d F31.9 [facility] [address] [address] Jan, Attention deficit hyperactiv ity disorder (ADHD), combined type F90.2 [facility] [address] [address] Dec, Posttraumatic stress disorde r F43.10 [facility] [address] [address] Dec, Posttraumatic stress disorde r F43.10 [facility] [id number] [place] [address] [id number] Nov, Dental examination Z01.20 [facility] [address], [place] [id number] Nov, Encounter for dental exam an d cleaning w/o abnormal findings Z01.20 [facility] [address] [id number] [address] [place] [id number] 03 Nov, 2017 Dental examination Z01.20 [facility] [address] [facility] [id number] [address] [place] [id number] 08 Sep, 2017 Bipolar disorder, unspecifie d F31.9 ; Posttraumatic stress disorder F43.10 and Attention deficit hyperactivity disorder (ADHD), combined type F90.2 [facility] [address] [facility] [id number] [address] [place] [address] 09 Aug, 2017 Posttraumatic stress disorde r F43.10 [facility] [address] [facility] [id number] [address] [place] [id number] 15 Jul, 2017 Other medical terminologist (current) dr ug therapy Z79.899 [facility] [id number] [place] [address] 11 Jul, 2017 Bipolar disorder, unspecifie d F31.9 ; Attention deficit hyperactivity disorder (ADHD), combined type F90.2 and Posttraumatic stress disorder F43.10 [facility] [address] [id number] [address] [place] [phone] 09 Jun, 2017 Bipolar disorder, unspecifie d F31.9 ; Posttraumatic stress disorder F43.10 ; Attention deficit hyperactivity disorder (ADHD), combined type F90.2 and Other medical terminologist (current) drug therapy Z79.899 [facility] [address] [facility] [id number] [address] [place] [address] March, Bipolar disorder, unspecifie d F31.9 ; Posttraumatic stress disorder F43.10 and Attention deficit hyperactivity disorder (ADHD), combined type F90.2 [facility] [address] [facility] [id number] [address] [place] [id number] 08 Dec, 2016 Bipolar disorder, unspecifie d F31.9 ; Posttraumatic stress disorder F43.10 and Attention deficit hyperactivity disorder (ADHD), combined type F90.2 [facility] [address] [id number] [address] [place] [address] Dec, [facility] [address] [id number] [address] [place] [address] Sep, [facility] [address] [id number] [address] [place] [address] Aug, Bipolar disorder, unspecifie d F31.9 ; Posttraumatic stress disorder F43.10 and Attention deficit hyperactivity disorder (ADHD), combined type F90.2 [facility] [address] [id number] [address] [place] [address] Jun, [facility] [address] [id number] [address] [place] [address] March, [facility] [address] [id number] [address] [place] [address] Feb, Bipolar disorder, unspecifie d F31.9 ; Attention deficit hyperactivity disorder (ADHD), combined type F90.2 and Posttraumatic stress disorder F43.10 [facility] [address] [id number] [address] [place] [address] Feb, [facility] [address] [id number] [address] [place] [address] Feb, [facility] [address] [id number] [address] [place] [address] Feb, [facility] [address] [id number] [address] [place] [address] Jan, [facility] [address] [id number] [address] [place] [address] [id number] Dec, Dental examination Z01.20 [facility] [address] [id number] [address] [place] [address] Sep, [facility] [address] [id number] [address] [place] [address] Sep, Attention deficit hyperactiv ity disorder (ADHD), combined type F90.2 ; Posttraumatic stress disorder F43.10 and Bipolar disorder, unspecified F31.9 [facility] [address] [facility] [id number] [address] [place] [address] Aug, [facility] [address] [facility] [id number] [address] [place] [address] Aug, [facility] [address] [facility] [id number] [address] [place] [address] Jul, [facility] [address] [facility] [id number] [address] [place] [address] May, Bipolar disorder, unspecifie d 296.80 ; 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.00 and Posttraumatic stress disorder 309.81 [facility] [address] [facility] [id number] [address] [place] [address] May, [facility] [address] [facility] [id number] [address] [place] [address] May, [facility] [address] [facility] [id number] [address] [place] [phone] May, [facility] [address] [facility] [id number] [address] [place] [phone] Apr, [facility] [address] [facility] [id number] [address] [place] [address] Apr, [facility] [address] [facility] [id number] [address] [place] [address] Apr, [facility] [address] [facility] [id number] [address] [place] [phone] March, [facility] [address] [facility] [id number] [address] [place] [address] March, [facility] [address] [facility] [id number] [address] [place] [address] March, [facility] [address] [facility] [id number] [address] [place] [phone] Feb, [facility] [address] [id number] [address] [place] [address], [place] [address] 13 Feb, 2015 [facility] [address] [id number] [address] [place] [address], [place] [address] Jan, [facility] [address] [id number] [address] [place] [address], [place] [address] Jan, [facility] [address] [id number] [address] [place] [address], [place] [address] Jan, [facility] [address] [id number] [address] [place] [address], [place] [address] Jan, [facility] [address] [id number] [address] [place] [address], [place] [address] Jan, [facility] [address] [id number] [address] [place] [address], [place] [address] Jan, [facility] [address] [id number] [address] [place] [address], [place] [address] Jan, [facility] [address] [id number] [address] [place] [address], [place] [address] Jan, [facility] [address] [id number] [address] [place] [address], [place] [address] Jan, [facility] [address] [id number] [address] [place] [address], [place] [address] Jan, [facility] [address] [id number] [address] [place] [address], [place] [address] Dec, [facility] [address] [id number] [address] [place] [address], [place] [address] Dec, [facility] [address] [id number] [address] [place] [address], [place] [address] Dec, [facility] [address] [id number] [address] [place] [address], [place] [address] Dec, [facility] [address] [id number] [address] [place] [address], [place] [address] Oct, [facility] [address] [id number] [address] [place] [address], [place] [address] Oct, [facility] [address] [id number] [address] [place] [address], [place] [address] Oct, [facility] [address] [id number] [address] [place] [address], [place] [address] Oct, [facility] [address] [id number] [address] [place] [address], [place] [address] Oct, [facility] [address] [id number] [address] [place] [address], [place] [address] Oct, [facility] [address] [id number] [address] [place] [address], [place] [address] Oct, [facility] [address] [id number] [address] [place] [address], [place] [address] Sep, [facility] [address] [id number] [address] [place] [address], [place] [address] Sep, [facility] [address] [id number] [address] [place] [address], [place] [address] Sep, [facility] [address] [id number] [address] [place] [address], [place] [address] Sep, [facility] [address] [id number] [address] [place] [address], [place] [address] Sep, [facility] [address] [id number] [address] [place] [address], [place] [address] Sep, [facility] [address] [id number] [address] [place] [address], [place] [address] Sep, [facility] [address] [id number] [address] [place] [address], [place] [address] Sep, [facility] [address] [id number] [address] [place] [address], [place] [address] Aug, [facility] [address] [id number] [address] [place] [address], [place] [address] Aug, [facility] [address] [id number] [address] [place] [address], [place] [address] Aug, [facility] [address] [id number] [address] [place] [address], [place] [address] Aug, [facility] [address] [id number] [address] [place] [address], [place] [address] Jul, [facility] [address] [id number] [address] [place] [address], [place] [address] Jul, [facility] [address] [id number] [address] [place] [address], [place] [address] Jul, [facility] [address] [id number] [address] [place] [address], [place] [address] Jul, [facility] [address] [id number] [address] [place] [address], [place] [address] Jun, [facility] [address] [id number] [address] [place] [address], [place] [address] Jun, [facility] [address] [id number] [address] [place] [address], [place] [address] Jun, [facility] [address] [id number] [address] [place] [address], [place] [address] Jun, [facility] [address] [id number] [address] [place] [address], [place] [address] May, [facility] [address] [id number] [address] [place] [address], [place] [address] May, [facility] [address] [id number] [address] [place] [address], [place] [address] May, [facility] [address] [id number] [address] [place] [address], [place] [address] May, [facility] [address] [id number] [address] [place] [address], [place] [address] Apr, [facility] [address] [id number] [facility] [address] Apr, [facility] [address] [id number] [address] [place] [address], [place] [address] Apr, [facility] [address] [id number] [address] [place] [address], [place] [address] Apr, [facility] [address] [id number] [address] [place] [address], [place] [address] Apr, [facility] [address] [id number] [address] [place] [address], [place] [address] Apr, [facility] [address] [id number] [address] [place] [address], [place] [address] Apr, [facility] [address] [id number] [address] [place] [address], [place] [address] Apr, [facility] [address] [id number] [address] [place] [address], [place] [address] Apr, [facility] [address] [id number] [address] [place] [address], [place] [address] Apr, [facility] [address] [id number] [address] [place] [address], [place] [address] Apr, [facility] [address] [id number] [address] [place] [address], [place] [address] Apr, [facility] [address] [id number] [address] [place] [address], [place] [address] Apr, [facility] [address] [id number] [address] [place] [address], [place] [address] March, [facility] [address] [id number] [address] [place] [address], [place] [address] March, [facility] [address] [id number] [address] [place] [address], [place] [address] March, [facility] [address] [id number] [address] [place] [address], [place] [address] March, [facility] [address] [id number] [address] [place] [address], [place] [address] Jan, [facility] [address] [id number] [address] [place] [address], [place] [address] Jan, [facility] [address] [id number] [address] [place] [address], [place] [address] Jan, [facility] [address] [id number] [address] [place] [address], [place] [address] Jan, [facility] [address] [id number] [address] [place] [address], [place] [address] Jan, [facility] [address] [id number] [address] [place] [address], [place] [address] Jan, [facility] [address] [id number] [address] [place] [address], [place] [address] Dec, [facility] [address] [id number] [address] [place] [address], [place] [address] Dec, [facility] [address] [id number] [address] [place] [address], [place] [address] Dec, [facility] [address] [id number] [address] [place] [address], [place] [address] Dec, [facility] [address] [id number] [address] [place] [address], [place] [address] Nov, [facility] [address] [id number] [address] [place] [address], [place] [address] Nov, [facility] [address] [id number] [address] [place] [address], [place] [address] Nov, [facility] [address] [id number] [address] [place] [address], [place] [address] Nov, [facility] [address] [id number] [address] [place] [address], [place] [address] Oct, [facility] [address] [id number] [address] [place] [address], [place] [address] Oct, [facility] [address] [id number] [address] [place] [address], [place] [address] Oct, [facility] [address] [id number] [address] [place] [address], [place] [address] Oct, [facility] [address] [id number] [address] [place] [address], [place] [address] Oct, [facility] [address] [id number] [address] [place] [address], [place] [address] Oct, [facility] [address] [id number] [address] [place] [address], [place] [address] Oct, [facility] [address] [id number] [address] [place] [address], [place] [address] Oct, [facility] [address] [id number] [address] [place] [address], [place] [address] Sep, [facility] [address] [id number] [address] [place] [address], [place] [address] Sep, [facility] [address] [id number] [address] [place] [address], [place] [address] Jul, [facility] [address] [id number] [address] [place] [address], [place] [address] Jul, [facility] [address] [id number] [address] [place] [address], [place] [address] Jul, [facility] [address] [id number] [address] [place] [address], [place] [address] Jul, [facility] [address] [id number] [address] [place] [address], [place] [address] Jun, [facility] [address] [id number] [address] [place] [address], [place] [address] Jun, [facility] [address] [id number] [address] [place] [address], [place] [address] 08 May, 2013 [facility] [address] [id number] [address] [place] [address], [place] [address] Apr, [facility] [address] [id number] [address] [place] [address], [place] [address] Apr, [facility] [address] [id number] [address] [place] [address], [place] [address] Apr, [facility] [address] [id number] [address] [place] [address], [place] [address] March, [facility] [address] [id number] [address] [place] [address], [place] [address] March, [facility] [address] [id number] [address] [place] [address], [place] [address] Feb, [facility] [address] [id number] [address] [place] [address], [place] [address] Jan, [facility] [address] [id number] [address] [place] [address], [place] [address] Jan, [facility] [address] [id number] [address] [place] [address], [place] [address] Dec, [facility] [address] [id number] [address] [place] [address], [place] [address] Dec, [facility] [address] [id number] [address] [place] [address], [place] [address] Nov, [facility] [address] [id number] [address] [place] [address], [place] [address] Nov, [facility] [address] [id number] [address] [place] [address], [place] [address] Nov, [facility] [address] [id number] [address] [place] [address], [place] [address] Oct, [facility] [address] [id number] [address] [place] [address], [place] [address] Oct, [facility] [address] [id number] [address] [place] [address], [place] [address] 05 Oct, 2012 [facility] [address] [id number] [address] [place] [address], [place] [address] Oct, [facility] [address] [id number] [address] [place] [address], [place] [address] Sep, [facility] [address] [id number] [address] [place] [address], [place] [address] Sep, [facility] [address] [id number] [address] [place] [address], [place] [address] Sep, [facility] [address] [id number] [address] [place] [address], [place] [address] Sep, [facility] [address] [id number] [address] [place] [address], [place] [address] Sep, [facility] [address] [id number] [address] [place] [address], [place] [address] 15 Sep, 2012 [facility] [address] [id number] [address] [place] [address], [place] [address] 02 Aug, 2012 [facility] [address] [id number] [address] [place] [id number] 26 Jul, 2012 [facility] [facility] [address] [id number] [address] [place] [address], [place] [address] 19 Jul, 2012 [facility] [address] [id number] [address] [place] [id number] 18 Jul, 2012 [facility] [address] [id number] [address] [place] [address], [place] [address] 14 Jul, 2012 [facility] [address] [id number] [address] [place] [address], [place] [address] 28 Jun, 2012 [facility] [address] [id number] [address] [place] [id number] 20 Jun, 2012 [facility] [address] [id number] [address] [place] [id number] Jun, [facility] [address] [id number] [address] [place] [address], [place] [address] Jun, [facility] [address] [id number] [address] [place] [address], [place] [address] May, [facility] [address] [id number] [address] [place] [address], [place] [address] Apr, [facility] [address] [id number] [address] [place] [address], [place] [address] March, [facility] [address] [id number] [address] [place] [address], [place] [address] March, [facility] [address] [id number] [address] [place] [address], [place] [address] March, [facility] [address] [id number] [address] [place] [address], [place] [address] Feb, [facility] [address] [id number] [address] [place] [address], [place] [address] Feb, [facility] [address] [id number] [address] [place] [address], [place] [address] Jan, [facility] [address] [id number] [address] [place] [address], [place] [address] Jan, [facility] [address] [id number] [address] [place] [address], [place] [address] Jan, [facility] [address] [id number] [address] [place] [address], [place] [address] Dec, [facility] [address] [id number] [address] [place] [address], [place] [address] Dec, [facility] [address] [id number] [address] [place] [address], [place] [address] Nov, [facility] [address] [id number] [address] [place] [address], [place] [address] Nov, [facility] [address] [id number] [address] [place] [address] Nov, [facility] [address] [id number] [address] [place] [address] Nov, [facility] [address] [id number] [address] [place] [address] Nov, [facility] [address] [id number] [address] [place] [id number] Oct, [facility] [address] [id number] [address] [place] [address], [place] [address] Oct, [facility] [address] [id number] [address] [place] [address], [place] [address] Oct, [facility] [address] [id number] [address] [place] [address], [place] [address] Oct, [facility] [address] [id number] [address] [place] [phone] Sep, [facility] [address] [id number] [address] [place] [phone] Sep, [facility] [address] [id number] [address] [place] [address] Sep, [facility] [address] [id number] [address] [place] [id number] Aug, [facility] [address] [id number] [address] [place] [address] Oct, [facility] [address] [id number] [address] [place] [id number] Oct, [facility] [address] [id number] [address] [place] [address] Oct, [facility] [address] [id number] [address] [place] [phone] Oct, IMMUNIZATIONS No Known Immunizations SOCIAL HISTORY Never Assessed REASON FOR VISIT Blister like bites on left knee/right ankle Gavin PLAN OF CARE Activity Details Follow Up prn Reason: VITAL SIGNS Height 68.5 in 2018-03-08 Weight 219.4 lbs 2018-03-08 Temperature 97.8 degrees Fahrenheit 2018-03-08 Heart Rate 100 bpm 2018-03-08 Respiratory Rate 22 2018-03-08 BMI 32.87 kg/m2 2018-03-08 Blood pressure systolic 128 mmHg 2018-03-08 Blood pressure diastolic 90 mmHg 2018-03-08 MEDICATIONS Medication Instructions Dosage Frequency Start Date End Date Duration S tatus Keflex 500 MG Orally every 12 hrs 1 capsule 12h Feb, 3 M 2017 10 day(s) Active Trazodone HCl 100 mg Orally Once a day 1 tablet 24h Active Zyprexa Zydis 5 MG Orally as needed Once a day 1 tablet on the tongue and allow to dissolve 24h Active Abilify 20 mg Orally Once a day 1 tablet 24h Feb, 30 day(s) Active Intuniv 2 mg Orally Once a day 1 tablet 24h Active Loratadine 10 MG Orally Once a day 1 tablet 24h Not-Taking Triamcinolone Acetonide 0.1 % Externally Twice a day 1 appli cation to affected area 12h Feb, 7 days Active Xanax 0.25 MG Orally once daily 1 tablet 24h Sep, 30 days Active DDAVP 0.2 mg TAKE ONE TABLET BY MOUTH DAILY Active Toviaz 4 MG Orally Once a day 1 tablet 24h N ot-Taking Clonidine HCl 0.1 MG Orally twice a day 1 tablet 12h Active Zoloft 100 mg Orally Once a day 1 tablet 24h Active BusPIRone HCl 5 mg Orally in am once a day 1 tablet 24h Active RESULTS No Results PROCEDURES No Known procedures INSTRUCTIONS MEDICATIONS ADMINISTERED No Known Medications MEDICAL (GENERAL) HISTORY Type Description Date Medical History Guardian requests that we do not explain any treatment to patient!
--- OUTSIDE RECORDS SUMMARY | 2020-04-25 15:01 | XMS REPORT ---
Author Author Ronna OGLESBY Organization [facility] Address [address] [place] [address] Phone Unavailable Care Team Providers Care Reservoir Engineering Advisor Name Role Phone CADEN GOLESBY Unavailable Unavailable PROBLEMS Type Condition ICD9-CM Code [id number] Code Onset Dates Condition S tatus SNOMED Code Problem Encounter for long-term (current) use of other medications V58.69 Active 157390192 Problem Bipolar disorder, unspecified F31.9 Active 22015643 Problem Posttraumatic stress disorder F43.10 Active 10347846 Problem Posttraumatic stress disorder 309.81 Active 80385181 Problem 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 Active 96520306 Problem Attention deficit hyperactivity disorder (ADHD), combi dylon type F90.2 Active 266957506 Problem Bipolar disorder, unspecified 296.80 Active 36073329 ALLERGIES No Known Allergies ENCOUNTERS Encounter Location Date Diagnosis [facility] [address] [facility] [id number] [address] [place] [phone] Jun, [facility] [id number] [place] [id number] Jun, [facility] [address] [facility] [id number] [address] [place] [address] May, [facility] [address] [facility] [id number] [address] [place] [address] Apr, Bipolar disorder, unspecifie d F31.9 [facility] [address] [facility] [id number] [address] [place] [address] March, Bipolar disorder, unspecifie d F31.9 ; Attention deficit hyperactivity disorder (ADHD), combined type F90.2 and Posttraumatic stress disorder F43.10 [facility] [address] [id number] [address] [place] [address] Feb, [facility] [address] [facility] [id number] [place] [address] Feb, Insect bite (nonvenomous), l eft knee, initial encounter S80.262A and Bitten or stung by nonvenomous insect and other nonvenomous arthropods, initial encounter W57.XXXA [facility] [address] [address] Feb, Bipolar disorder, unspecifie d F31.9 [facility] [address] [facility] [id number] [place] [id number] Feb, Dental examination Z01.20 [facility] [address] [address] Feb, Bipolar disorder, unspecifie d F31.9 ; Attention deficit hyperactivity disorder (ADHD), combined type F90.2 and Posttraumatic stress disorder F43.10 [facility] [address] [id number] Feb, Dental examination Z01.20 [facility] [address] [address] Jan, Bipolar disorder, unspecifie d F31.9 [facility] [address] [address] Jan, Attention deficit hyperactiv ity disorder (ADHD), combined type F90.2 [facility] [address] [address] Dec, Posttraumatic stress disorde r F43.10 [facility] [address] [place] [id number] [address] [place] [address] Dec, Posttraumatic stress disorde r F43.10 [facility] [address] [facility] [id number] [place] [id number] Nov, Dental examination Z01.20 [facility] [address] [id number] [place] [id number] Nov, Encounter for dental exam an d cleaning w/o abnormal findings Z01.20 [facility] [address] [id number] [address] [place] [id number] Nov, Dental examination Z01.20 [facility] [address] [facility] [id number] [address] [place] [phone] 08 Sep, 2017 Bipolar disorder, unspecifie d F31.9 ; Posttraumatic stress disorder F43.10 and Attention deficit hyperactivity disorder (ADHD), combined type F90.2 [facility] [address] [facility] [id number] [address] [place] [id number] 09 Aug, 2017 Posttraumatic stress disorde r F43.10 [facility] [address] [facility] [id number] [address] [place] [id number] 15 Jul, 2017 Other correction (current) dr ug therapy Z79.899 [facility] [address] [place] [id number] [place] [address] 11 Jul, 2017 Bipolar disorder, unspecifie d F31.9 ; Attention deficit hyperactivity disorder (ADHD), combined type F90.2 and Posttraumatic stress disorder F43.10 [facility] [address] [place] [id number] [address] [place] [phone] 09 Jun, 2017 Bipolar disorder, unspecifie d F31.9 ; Posttraumatic stress disorder F43.10 ; Attention deficit hyperactivity disorder (ADHD), combined type F90.2 and 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.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 [facility] [address] [id number] [address] [place] [address] March, Bipolar disorder, unspecifie d F31.9 ; Posttraumatic stress disorder F43.10 and Attention deficit hyperactivity disorder (ADHD), combined type F90.2 [facility] [address] [facility] [id number] [address] [place] [id number] 08 Dec, 2016 Bipolar disorder, unspecifie d F31.9 ; Posttraumatic stress disorder F43.10 and Attention deficit hyperactivity disorder (ADHD), combined type F90.2 [facility] [address] [id number] [place] [address], [place] [address] Dec, [facility] [address] [id number] [address] [place] [address] Sep, [facility] [address] [id number] [address] [place] [address] Aug, Bipolar disorder, unspecifie d F31.9 ; Posttraumatic stress disorder F43.10 and Attention deficit hyperactivity disorder (ADHD), combined type F90.2 [facility] [address] [id number] [address] [place] [address] Jun, [facility] [address] [id number] [address] [place] [address] March, [facility] [address] [facility] [id number] [address] [place] [address] Feb, Bipolar disorder, unspecifie d F31.9 ; Attention deficit hyperactivity disorder (ADHD), combined type F90.2 and Posttraumatic stress disorder F43.10 [facility] [address] [id number] [address] [place] [address] Feb, [facility] [address] [facility] [id number] [address] [place] [address] Feb, [facility] [address] [id number] [address] [place] [address] Feb, [facility] [address] [facility] [id number] [address] [place] [address] Jan, [facility] [address] [id number] [address] [place] [address] [id number] Dec, Dental examination Z01.20 [facility] [address] [id number] [address] [place] [address] Sep, [facility] [address] [facility] [id number] [address] [place] [phone] Sep, Attention deficit hyperactiv ity disorder (ADHD), combined type F90.2 ; Posttraumatic stress disorder F43.10 and Bipolar disorder, unspecified F31.9 [facility] [address] [id number] [address] [place] [address] Aug, [facility] [address] [id number] [address] [place] [phone] Aug, [facility] [address] [id number] [address] [place] [address] Jul, [facility] [address] [id number] [address] [place] [address] May, Bipolar disorder, unspecifie d 296.80 ; 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.00 and Posttraumatic stress disorder 309.81 [facility] [address] [id number] [address] [place] [address] May, [facility] [address] [id number] [address] [place] [address] May, [facility] [address] [id number] [address] [place] [address] May, [facility] [address] [id number] [address] [place] [phone] Apr, [facility] [address] [id number] [address] [place] [phone] Apr, [facility] [address] [id number] [address] [place] [address] Apr, [facility] [address] [id number] [address] [place] [phone] March, [facility] [address] [id number] [address] [place] [id number] March, [facility] [address] [id number] [address] [place] [address] March, [facility] [address] [id number] [address] [place] [address] Feb, [facility] [address] [id number] [address] [place] [address], [place] [address] 13 Feb, 2015 [facility] [address] [id number] [address] [place] [address], [place] [address] Jan, [facility] [address] [id number] [address] [place] [address], [place] [address] Jan, [facility] [address] [id number] [address] [place] [address], [place] [address] Jan, [facility] [address] [id number] [address] [place] [address], [place] [address] Jan, [facility] [address] [id number] [address] [place] [address], [place] [address] Jan, [facility] [address] [id number] [address] [place] [address], [place] [address] Jan, [facility] [address] [id number] [address] [place] [address], [place] [address] Jan, [facility] [address] [id number] [address] [place] [address], [place] [address] Jan, [facility] [address] [id number] [address] [place] [address], [place] [address] Jan, [facility] [address] [id number] [address] [place] [address], [place] [address] Jan, [facility] [address] [id number] [address] [place] [address], [place] [address] Dec, [facility] [address] [id number] [address] [place] [address], [place] [address] Dec, [facility] [address] [id number] [address] [place] [address], [place] [address] Dec, [facility] [address] [id number] [address] [place] [address], [place] [address] Dec, [facility] [address] [id number] [address] [place] [address], [place] [address] Oct, [facility] [address] [id number] [address] [place] [address], [place] [address] Oct, [facility] [address] [id number] [address] [place] [address], [place] [address] Oct, [facility] [address] [id number] [address] [place] [address], [place] [address] Oct, [facility] [address] [id number] [address] [place] [address], [place] [address] Oct, [facility] [address] [id number] [address] [place] [address], [place] [address] Oct, [facility] [address] [id number] [address] [place] [address], [place] [address] Oct, [facility] [address] [id number] [address] [place] [address], [place] [address] Sep, [facility] [address] [id number] [address] [place] [address], [place] [address] Sep, [facility] [address] [id number] [address] [place] [address], [place] [address] Sep, [facility] [address] [id number] [address] [place] [address], [place] [address] Sep, [facility] [address] [id number] [address] [place] [address], [place] [address] Sep, [facility] [address] [id number] [address] [place] [address], [place] [address] Sep, [facility] [address] [id number] [address] [place] [address], [place] [address] Sep, [facility] [address] [id number] [address] [place] [address], [place] [address] Sep, [facility] [address] [id number] [address] [place] [address], [place] [address] Aug, [facility] [address] [id number] [address] [place] [address], [place] [address] Aug, [facility] [address] [id number] [address] [place] [address], [place] [address] Aug, [facility] [address] [id number] [address] [place] [address], [place] [address] Aug, [facility] [address] [id number] [address] [place] [address], [place] [address] Jul, [facility] [address] [id number] [address] [place] [address], [place] [address] Jul, [facility] [address] [id number] [address] [place] [address], [place] [address] Jul, [facility] [address] [id number] [address] [place] [address], [place] [address] Jul, [facility] [address] [id number] [address] [place] [address], [place] [address] Jun, [facility] [address] [id number] [address] [place] [address], [place] [address] Jun, [facility] [address] [id number] [address] [place] [address], [place] [address] Jun, [facility] [address] [id number] [address] [place] [address], [place] [address] Jun, [facility] [address] [id number] [address] [place] [address], [place] [address] May, [facility] [address] [id number] [address] [place] [address], [place] [address] May, [facility] [address] [id number] [address] [place] [address], [place] [address] May, [facility] [address] [id number] [address] [place] [address], [place] [address] May, [facility] [address] [id number] [address] [place] [address], [place] [address] Apr, [facility] [address] [id number] [facility] [place] [address] Apr, [facility] [address] [id number] [facility] [place] [address] Apr, [facility] [address] [id number] [facility] [place] [address] Apr, [facility] [address] [id number] [facility] [place] [address] Apr, [facility] [address] [id number] [address] [place] [address], [place] [address] Apr, [facility] [address] [id number] [address] [place] [address], [place] [address] Apr, [facility] [address] [id number] [address] [place] [address], [place] [address] Apr, [facility] [address] [id number] [address] [place] [address], [place] [address] Apr, [facility] [address] [id number] [address] [place] [address], [place] [address] Apr, [facility] [address] [id number] [address] [place] [address], [place] [address] Apr, [facility] [address] [id number] [address] [place] [address], [place] [address] Apr, [facility] [address] [id number] [address] [place] [address], [place] [address] Apr, [facility] [address] [id number] [address] [place] [address], [place] [address] March, [facility] [address] [id number] [address] [place] [address], [place] [address] March, [facility] [address] [id number] [address] [place] [address], [place] [address] March, [facility] [address] [id number] [address] [place] [address], [place] [address] March, [facility] [address] [id number] [address] [place] [address], [place] [address] Jan, [facility] [address] [id number] [address] [place] [address], [place] [address] Jan, [facility] [address] [id number] [address] [place] [address], [place] [address] Jan, [facility] [address] [id number] [address] [place] [address], [place] [address] Jan, [facility] [address] [id number] [address] [place] [address], [place] [address] Jan, [facility] [address] [id number] [address] [place] [address], [place] [address] Jan, [facility] [address] [id number] [address] [place] [address], [place] [address] Dec, [facility] [address] [id number] [address] [place] [address], [place] [address] Dec, [facility] [address] [id number] [address] [place] [address], [place] [address] Dec, [facility] [address] [id number] [address] [place] [address], [place] [address] Dec, [facility] [address] [id number] [address] [place] [address], [place] [address] Nov, [facility] [address] [id number] [address] [place] [address], [place] [address] Nov, [facility] [address] [id number] [address] [place] [address], [place] [address] Nov, [facility] [address] [id number] [address] [place] [address], [place] [address] Nov, [facility] [address] [id number] [address] [place] [address], [place] [address] Oct, [facility] [address] [id number] [address] [place] [address], [place] [address] Oct, [facility] [address] [id number] [address] [place] [address], [place] [address] Oct, [facility] [address] [id number] [address] [place] [address], [place] [address] Oct, [facility] [address] [id number] [address] [place] [address], [place] [address] Oct, [facility] [address] [id number] [address] [place] [address], [place] [address] Oct, [facility] [address] [id number] [address] [place] [address], [place] [address] Oct, [facility] [address] [id number] [address] [place] [address], [place] [address] Oct, [facility] [address] [id number] [address] [place] [address], [place] [address] Sep, [facility] [address] [id number] [address] [place] [address], [place] [address] Sep, [facility] [address] [id number] [address] [place] [address], [place] [address] Jul, [facility] [address] [id number] [address] [place] [address], [place] [address] Jul, [facility] [address] [id number] [address] [place] [address], [place] [address] Jul, [facility] [address] [id number] [address] [place] [address], [place] [address] Jul, [facility] [address] [id number] [address] [place] [address], [place] [address] Jun, [facility] [address] [id number] [address] [place] [address], [place] [address] Jun, [facility] [address] [id number] [address] [place] [address], [place] [address] May, [facility] [address] [id number] [address] [place] [address], [place] [address] Apr, [facility] [address] [id number] [address] [place] [address], [place] [address] Apr, [facility] [address] [id number] [address] [place] [address], [place] [address] Apr, [facility] [address] [id number] [address] [place] [address], [place] [address] March, [facility] [address] [id number] [address] [place] [address], [place] [address] March, [facility] [address] [id number] [address] [place] [address], [place] [address] Feb, [facility] [address] [id number] [address] [place] [address], [place] [address] Jan, [facility] [address] [id number] [address] [place] [address], [place] [address] Jan, [facility] [address] [id number] [address] [place] [address], [place] [address] Dec, [facility] [address] [id number] [address] [place] [address], [place] [address] Dec, [facility] [address] [id number] [address] [place] [address], [place] [address] Nov, [facility] [address] [id number] [address] [place] [address], [place] [address] Nov, [facility] [address] [id number] [address] [place] [address], [place] [address] Nov, [facility] [address] [id number] [address] [place] [address], [place] [address] Oct, [facility] [address] [id number] [address] [place] [address], [place] [address] Oct, [facility] [address] [id number] [address] [place] [address], [place] [address] 05 Oct, 2012 [facility] [address] [id number] [address] [place] [address], [place] [address] 05 Oct, 2012 [facility] [address] [id number] [address] [place] [address], [place] [address] Sep, [facility] [address] [id number] [address] [place] [address], [place] [address] Sep, [facility] [address] [id number] [address] [place] [address], [place] [address] Sep, [facility] [address] [id number] [address] [place] [address], [place] [address] Sep, [facility] [address] [id number] [address] [place] [address], [place] [address] Sep, [facility] [address] [id number] [address] [place] [address], [place] [address] 15 Sep, 2012 [facility] [address] [id number] [address] [place] [address], [place] [address] Aug, [facility] [address] [id number] [address] [place] [address], [place] [address] 26 Jul, 2012 [facility] [address] [id number] [address] [place] [address], [place] [address] 19 Jul, 2012 [facility] [address] [id number] [address] [place] [address], [place] [address] 18 Jul, 2012 [facility] [address] [id number] [address] [place] [address], [place] [address] 14 Jul, 2012 [facility] [address] [id number] [address] [place] [address], [place] [address] 28 Jun, 2012 [facility] [address] [id number] [address] [place] [address], [place] [address] Jun, [facility] [address] [id number] [address] [place] [address], [place] [address] Jun, [facility] [address] [id number] [address] [place] [address], [place] [address] Jun, [facility] [address] [id number] [address] [place] [address], [place] [address] May, [facility] [address] [id number] [address] [place] [address], [place] [address] Apr, [facility] [address] [id number] [address] [place] [address], [place] [address] March, [facility] [address] [id number] [address] [place] [address], [place] [address] March, [facility] [address] [id number] [address] [place] [address], [place] [address] March, [facility] [address] [id number] [address] [place] [address], [place] [address] Feb, [facility] [address] [id number] [address] [place] [address], [place] [address] Feb, [facility] [address] [id number] [address] [place] [address], [place] [address] Jan, [facility] [address] [id number] [address] [place] [address], [place] [address] Jan, [facility] [address] [id number] [address] [place] [address], [place] [address] Jan, [facility] [address] [id number] [address] [place] [address], [place] [address] Dec, [facility] [address] [id number] [address] [place] [address], [place] [address] Dec, [facility] [address] [id number] [address] [place] [address], [place] [address] Nov, [facility] [address] [id number] [address] [place] [address], [place] [address] Nov, [facility] [address] [id number] [address] [place] [address] Nov, [facility] [address] [id number] [address] [place] [id number] Nov, [facility] [address] [id number] [address] [place] [id number] Nov, [facility] [address] [id number] [address] [place] [id number] Oct, [facility] [address] [id number] [address] [place] [phone] Oct, [facility] [address] [id number] [address] [place] [address] Oct, [facility] [address] [id number] [address] [place] [address] Oct, [facility] [address] [id number] [address] [place] [address] Sep, [facility] [address] [id number] [address] [place] [address] Sep, [facility] [address] [id number] [address] [place] [address] Sep, [facility] [address] [id number] [address] [place] [address] Aug, [facility] [address] [id number] [address] [place] [phone] Oct, [facility] [address] [id number] [address] [place] [id number] Oct, [facility] [address] [id number] [address] [place] [address] Oct, [facility] [address] [id number] [address] [place] [id number] Oct, IMMUNIZATIONS No Known Immunizations SOCIAL HISTORY Never Assessed REASON FOR VISIT PLAN OF CARE Activity Details Follow Up prn Reason: VITAL SIGNS MEDICATIONS Medication Instructions Dosage Frequency Start Date End Date Duration S tatus Clonidine HCl 0.1 MG Orally twice a day 1 tablet 12h Active Trazodone HCl 100 mg Orally Once a day 1 tablet 24h Active Zyprexa Zydis 5 MG Orally as needed Once a day 1 tablet on the tongue and allow to dissolve 24h Active Loratadine 10 MG Orally Once a day 1 tablet 24h Not-Taking Zoloft 100 mg Orally Once a day 1 tablet 24h Active Xanax 0.25 MG Orally once daily 1 tablet 24h Sep, Active BusPIRone HCl 5 mg Orally in am once a day 1 tablet 24h Active DDAVP 0.2 mg TAKE ONE TABLET BY MOUTH DAILY Active Intuniv 2 mg Orally Once a day 1 tablet 24h Active Abilify 20 mg Orally Once a day 1 tablet 24h Feb, 30 day(s) Active Toviaz 4 MG Orally Once a day 1 tablet 24h N ot-Taking RESULTS No Results PROCEDURES Procedure Date Ordered Result Body Site PROPHYLAXIS - ADULT March 03, 2018 TOPICAL FLUORIDE VARNISH March 03, 2018 INSTRUCTIONS MEDICATIONS ADMINISTERED No Known Medications MEDICAL (GENERAL) HISTORY Type Description Date Medical History Guardian requests that we do not explain any treatment to patient!
--- OUTSIDE RECORDS SUMMARY | 2020-04-25 15:01 | XMS REPORT ---
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 Active 27224415 Problem Attention deficit hyperactivity disorder (ADHD), combi dylon type F90.2 Active 948669451 Problem Bipolar disorder, unspecified 296.80 Active [id number] ALLERGIES No Information ENCOUNTERS Encounter Location Date Diagnosis [facility] [address] [facility] [id number] [address] [place] [address] Jun, [place] [id number] [place] [id number] Jun, [facility] [address] [facility] [id number] [address] [place] [address] May, [facility] [address] [facility] [id number] [address] [place] [id number] Apr, Bipolar disorder, unspecifie d F31.9 [facility] [address] [facility] [id number] [address] [place] [address] March, Bipolar disorder, unspecifie d F31.9 ; Attention deficit hyperactivity disorder (ADHD), combined type F90.2 and Posttraumatic stress disorder F43.10 [facility] [address] [facility] [id number] [address] [place] [address] Feb, [facility] [address] [place] [id number] [address] [place] [address] Feb, Insect bite (nonvenomous), l eft knee, initial encounter S80.262A and Bitten or stung by nonvenomous insect and other nonvenomous arthropods, initial encounter W57.XXXA [facility] [address] [address] Feb, Bipolar disorder, unspecifie d F31.9 [facility] [address] [id number] Feb, Dental examination Z01.20 [facility] [address] [address] Feb, Bipolar disorder, unspecifie d F31.9 ; Attention deficit hyperactivity disorder (ADHD), combined type F90.2 and Posttraumatic stress disorder F43.10 [facility] [address] [id number] Feb, Dental examination Z01.20 [facility] [address] [address] Jan, Bipolar disorder, unspecifie d F31.9 [facility] [address] [address] Jan, Attention deficit hyperactiv ity disorder (ADHD), combined type F90.2 [facility] [address] [address] Dec, Posttraumatic stress disorde r F43.10 [facility] [address] [address] Dec, Posttraumatic stress disorde r F43.10 [facility] [id number] [place] [id number] Nov, Dental examination Z01.20 [facility] [address] [place] [id number] Nov, Encounter for dental exam an d cleaning w/o abnormal findings Z01.20 [facility] [address] [id number] [address] [place] [id number] 03 Nov, 2017 Dental examination Z01.20 [facility] [address] [facility] [id number] [address] [place] [id number] 08 Sep, 2017 Bipolar disorder, unspecifie d F31.9 ; Posttraumatic stress disorder F43.10 and Attention deficit hyperactivity disorder (ADHD), combined type F90.2 [facility] [address] [facility] [id number] [address] [place] [address] 09 Aug, 2017 Posttraumatic stress disorde r F43.10 [facility] [address] [facility] [id number] [address] [place] [address] 15 Jul, 2017 Other half-way (current) dr ug therapy Z79.899 [facility] [id number] [place] [id number] 11 Jul, 2017 Bipolar disorder, unspecifie d F31.9 ; Attention deficit hyperactivity disorder (ADHD), combined type F90.2 and Posttraumatic stress disorder F43.10 [facility] [address] [place] [id number] [address] [place] [address] 09 Jun, 2017 Bipolar disorder, unspecifie d F31.9 ; Posttraumatic stress disorder F43.10 ; Attention deficit hyperactivity disorder (ADHD), combined type F90.2 and Other half-way (current) drug therapy Z79.899 [facility] [address] [facility] [id number] [address] [place] [address] March, Bipolar disorder, unspecifie d F31.9 ; Posttraumatic stress disorder F43.10 and Attention deficit hyperactivity disorder (ADHD), combined type F90.2 [facility] [address] [facility] [id number] [address] [place] [id number] 08 Dec, 2016 Bipolar disorder, unspecifie d F31.9 ; Posttraumatic stress disorder F43.10 and Attention deficit hyperactivity disorder (ADHD), combined type F90.2 [facility] [address] [id number] [address] [place] [address] Dec, [facility] [address] [id number] [address] [place] [id number] Sep, [facility] [address] [id number] [address] [place] [address] Aug, Bipolar disorder, unspecifie d F31.9 ; Posttraumatic stress disorder F43.10 and Attention deficit hyperactivity disorder (ADHD), combined type F90.2 [facility] [address] [id number] [address] [place] [address] Jun, [facility] [address] [id number] [address] [place] [address] March, [facility] [address] [id number] [address] [place] [address] Feb, Bipolar disorder, unspecifie d F31.9 ; Attention deficit hyperactivity disorder (ADHD), combined type F90.2 and Posttraumatic stress disorder F43.10 [facility] [address] [id number] [address] [place] [address] Feb, [facility] [address] [id number] [address] [place] [address] Feb, [facility] [address] [id number] [address] [place] [address] Feb, [facility] [address] [id number] [address] [place] [address] Jan, [facility] [address] [id number] [address] [place] [address] [id number] Dec, Dental examination Z01.20 [facility] [address] [id number] [address] [place] [address] Sep, [facility] [address] [id number] [address] [place] [address] Sep, Attention deficit hyperactiv ity disorder (ADHD), combined type F90.2 ; Posttraumatic stress disorder F43.10 and Bipolar disorder, unspecified F31.9 [facility] [address] [facility] [id number] [address] [place] [address] Aug, [facility] [address] [facility] [id number] [address] [place] [address] Aug, [facility] [address] [id number] [address] [place] [address] Jul, [facility] [address] [id number] [address] [place] [address] May, Bipolar disorder, unspecifie d 296.80 ; 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.00 and Posttraumatic stress disorder 309.81 [facility] [address] [facility] [id number] [address] [place] [address] May, [facility] [address] [id number] [address] [place] [address] May, [facility] [address] [id number] [address] [place] [address] May, [facility] [address] [id number] [address] [place] [address] Apr, [facility] [address] [facility] [id number] [address] [place] [address] Apr, [facility] [address] [id number] [address] [place] [address] Apr, [facility] [address] [id number] [address] [place] [address] March, [facility] [address] [id number] [address] [place] [id number] March, [facility] [address] [facility] [id number] [address] [place] [address] March, [facility] [address] [facility] [id number] [address] [place] [address] Feb, [facility] [address] [id number] [address] [place] [address], [place] [address] 13 Feb, 2015 [facility] [address] [id number] [address] [place] [address], [place] [address] Jan, [facility] [address] [id number] [address] [place] [address], [place] [address] Jan, [facility] [address] [id number] [address] [place] [address], [place] [address] Jan, [facility] [address] [id number] [address] [place] [address], [place] [address] Jan, [facility] [address] [id number] [address] [place] [address], [place] [address] Jan, [facility] [address] [id number] [address] [place] [address], [place] [address] Jan, [facility] [address] [id number] [address] [place] [address], [place] [address] Jan, [facility] [address] [id number] [address] [place] [address], [place] [address] Jan, [facility] [address] [id number] [address] [place] [address], [place] [address] Jan, [facility] [address] [id number] [address] [place] [address], [place] [address] Jan, [facility] [address] [id number] [address] [place] [address], [place] [address] Dec, [facility] [address] [id number] [address] [place] [address], [place] [address] Dec, [facility] [address] [id number] [address] [place] [address], [place] [address] Dec, [facility] [address] [id number] [address] [place] [address], [place] [address] Dec, [facility] [address] [id number] [address] [place] [address], [place] [address] Oct, [facility] [address] [id number] [address] [place] [address], [place] [address] Oct, [facility] [address] [id number] [address] [place] [address], [place] [address] Oct, [facility] [address] [id number] [address] [place] [address], [place] [address] Oct, [facility] [address] [id number] [address] [place] [address], [place] [address] Oct, [facility] [address] [id number] [address] [place] [address], [place] [address] Oct, [facility] [address] [id number] [address] [place] [address], [place] [address] Oct, [facility] [address] [id number] [address] [place] [address], [place] [address] Sep, [facility] [address] [id number] [address] [place] [address], [place] [address] Sep, [facility] [address] [id number] [address] [place] [address], [place] [address] Sep, [facility] [address] [id number] [address] [place] [address], [place] [address] Sep, [facility] [address] [id number] [address] [place] [address], [place] [address] Sep, [facility] [address] [id number] [address] [place] [address], [place] [address] Sep, [facility] [address] [id number] [address] [place] [address], [place] [address] Sep, [facility] [address] [id number] [address] [place] [address], [place] [address] Sep, [facility] [address] [id number] [address] [place] [address], [place] [address] Aug, [facility] [address] [id number] [address] [place] [address], [place] [address] Aug, [facility] [address] [id number] [address] [place] [address], [place] [address] Aug, [facility] [address] [id number] [address] [place] [address], [place] [address] Aug, [facility] [address] [id number] [address] [place] [address], [place] [address] Jul, [facility] [address] [id number] [address] [place] [address], [place] [address] Jul, [facility] [address] [id number] [address] [place] [address], [place] [address] Jul, [facility] [address] [id number] [address] [place] [address], [place] [address] Jul, [facility] [address] [id number] [address] [place] [address], [place] [address] Jun, [facility] [address] [id number] [address] [place] [address], [place] [address] Jun, [facility] [address] [id number] [address] [place] [address], [place] [address] Jun, [facility] [address] [id number] [address] [place] [address], [place] [address] Jun, [facility] [address] [id number] [address] [place] [address], [place] [address] May, [facility] [address] [id number] [address] [place] [address], [place] [address] May, [facility] [address] [id number] [address] [place] [address], [place] [address] May, [facility] [address] [id number] [address] [place] [address], [place] [address] May, [facility] [address] [id number] [address] [place] [address], [place] [address] Apr, [facility] [address] [id number] [facility] [place] [address] Apr, [facility] [address] [id number] [address] [place] [address], [place] [address] Apr, [facility] [address] [id number] [address] [place] [address], [place] [address] Apr, [facility] [address] [id number] [address] [place] [address], [place] [address] Apr, [facility] [address] [id number] [address] [place] [address], [place] [address] Apr, [facility] [address] [id number] [address] [place] [address], [place] [address] Apr, [facility] [address] [id number] [address] [place] [address], [place] [address] Apr, [facility] [address] [id number] [address] [place] [address], [place] [address] Apr, [facility] [address] [id number] [address] [place] [address], [place] [address] Apr, [facility] [address] [id number] [address] [place] [address], [place] [address] Apr, [facility] [address] [id number] [address] [place] [address], [place] [address] Apr, [facility] [address] [id number] [address] [place] [address], [place] [address] Apr, [facility] [address] [id number] [address] [place] [address], [place] [address] March, [facility] [address] [id number] [address] [place] [address], [place] [address] March, [facility] [address] [id number] [address] [place] [address], [place] [address] March, [facility] [address] [id number] [address] [place] [address], [place] [address] March, [facility] [address] [id number] [address] [place] [address], [place] [address] Jan, [facility] [address] [id number] [address] [place] [address], [place] [address] Jan, [facility] [address] [id number] [address] [place] [address], [place] [address] Jan, [facility] [address] [id number] [address] [place] [address], [place] [address] Jan, [facility] [address] [id number] [address] [place] [address], [place] [address] Jan, [facility] [address] [id number] [address] [place] [address], [place] [address] Jan, [facility] [address] [id number] [address] [place] [address], [place] [address] Dec, [facility] [address] [id number] [address] [place] [address], [place] [address] Dec, [facility] [address] [id number] [address] [place] [address], [place] [address] Dec, [facility] [address] [id number] [address] [place] [address], [place] [address] Dec, [facility] [address] [id number] [address] [place] [address], [place] [address] Nov, [facility] [address] [id number] [address] [place] [address], [place] [address] Nov, [facility] [address] [id number] [address] [place] [address], [place] [address] Nov, [facility] [address] [id number] [address] [place] [address], [place] [address] Nov, [facility] [address] [id number] [address] [place] [address], [place] [address] Oct, [facility] [address] [id number] [address] [place] [address], [place] [address] Oct, [facility] [address] [id number] [address] [place] [address], [place] [address] Oct, [facility] [address] [id number] [address] [place] [address], [place] [address] Oct, [facility] [address] [id number] [address] [place] [address], [place] [address] Oct, [facility] [address] [id number] [address] [place] [address], [place] [address] Oct, [facility] [address] [id number] [address] [place] [address], [place] [address] Oct, [facility] [address] [id number] [address] [place] [address], [place] [address] Oct, [facility] [address] [id number] [address] [place] [address], [place] [address] Sep, [facility] [address] [id number] [address] [place] [address], [place] [address] Sep, [facility] [address] [id number] [address] [place] [address], [place] [address] Jul, [facility] [address] [id number] [address] [place] [address] Jul, [facility] [address] [id number] [address] [place] [address] Jul, [facility] [address] [id number] [address] [place] [address], [place] [address] Jul, [facility] [address] [id number] [address] [place] [address], [place] [address] Jun, [facility] [address] [id number] [address] [place] [address], [place] [address] Jun, [facility] [address] [id number] [address] [place] [address], [place] [address] 08 May, 2013 [facility] [address] [id number] [address] [place] [address], [place] [address] Apr, [facility] [address] [id number] [address] [place] [address], [place] [address] Apr, [facility] [address] [id number] [address] [place] [address], [place] [address] Apr, [facility] [address] [id number] [address] [place] [address], [place] [address] March, [facility] [address] [id number] [address] [place] [address], [place] [address] March, [facility] [address] [id number] [address] [place] [address], [place] [address] Feb, [facility] [address] [id number] [address] [place] [address], [place] [address] Jan, [facility] [address] [id number] [address] [place] [address], [place] [address] Jan, [facility] [address] [id number] [address] [place] [address], [place] [address] Dec, [facility] [address] [id number] [address] [place] [address], [place] [address] Dec, [facility] [address] [id number] [address] [place] [address], [place] [address] Nov, [facility] [address] [id number] [address] [place] [address], [place] [address] Nov, [facility] [address] [id number] [address] [place] [address], [place] [address] Nov, [facility] [address] [id number] [address] [place] [address], [place] [address] Oct, [facility] [address] [id number] [address] [place] [address], [place] [address] Oct, [facility] [address] [id number] [address] [place] [address], [place] [address] 05 Oct, 2012 [facility] [address] [id number] [address] [place] [address], [place] [address] Oct, [facility] [address] [id number] [address] [place] [address], [place] [address] Sep, [facility] [address] [id number] [address] [place] [address], [place] [address] Sep, [facility] [address] [id number] [address] [place] [address], [place] [address] Sep, [facility] [address] [id number] [address] [place] [address], [place] [address] Sep, [facility] [address] [id number] [address] [place] [address], [place] [address] Sep, [facility] [address] [id number] [address] [place] [address], [place] [address] 15 Sep, 2012 [facility] [address] [id number] [address] [place] [address], [place] [address] 02 Aug, 2012 [facility] [address] [id number] [address] [place] [address] 26 Jul, 2012 [facility] [address] [id number] [address] [place] [address], [place] [address] 19 Jul, 2012 [facility] [address] [id number] [address] [place] [id number] 18 Jul, 2012 [facility] [address] [id number] [address] [place] [address], [place] [address] 14 Jul, 2012 [facility] [address] [id number] [address] [place] [address], [place] [address] 28 Jun, 2012 [facility] [address] [id number] [address] [place] [address] 20 Jun, 2012 [facility] [address] [id number] [address] [place] [address] Jun, [facility] [address] [id number] [address] [place] [address], [place] [address] Jun, [facility] [address] [id number] [address] [place] [address], [place] [address] May, [facility] [address] [id number] [address] [place] [address], [place] [address] Apr, [facility] [address] [id number] [address] [place] [address], [place] [address] March, [facility] [address] [id number] [address] [place] [address], [place] [address] March, [facility] [address] [id number] [address] [place] [address], [place] [address] March, [facility] [address] [id number] [address] [place] [address], [place] [address] Feb, [facility] [address] [id number] [address] [place] [address], [place] [address] Feb, [facility] [address] [id number] [address] [place] [address], [place] [address] Jan, [facility] [address] [id number] [address] [place] [address], [place] [address] Jan, [facility] [address] [id number] [address] [place] [address], [place] [address] Jan, [facility] [address] [id number] [address] [place] [address], [place] [address] Dec, [facility] [address] [id number] [address] [place] [address], [place] [address] Dec, [facility] [address] [id number] [address] [place] [address], [place] [address] Nov, [facility] [address] [id number] [address] [place] [address], [place] [address] Nov, [facility] [address] [id number] [address] [place] [phone] Nov, [facility] [address] [id number] [address] [place] [id number] Nov, [facility] [address] [id number] [address] [place] [id number] Nov, [facility] [address] [id number] [address] [place] [id number] Oct, [facility] [address] [id number] [address] [place] [phone] Oct, [facility] [address] [id number] [address] [place] [id number] Oct, [facility] [address] [id number] [address] [place] [phone] Oct, [facility] [address] [id number] [address] [place] [id number] Sep, [facility] [address] [id number] [address] [place] [phone] Sep, [facility] [address] [id number] [address] [place] [phone] Sep, [facility] [address] [id number] [address] [place] [id number] Aug, [facility] [address] [id number] [address] [place] [phone] Oct, [facility] [address] [id number] [address] [place] [phone] Oct, [facility] [address] [id number] [address] [place] [id number] Oct, [facility] [address] [id number] [address] [place] [id number] Oct, IMMUNIZATIONS No Known Immunizations SOCIAL HISTORY Never Assessed REASON FOR VISIT question PLAN OF CARE VITAL SIGNS MEDICATIONS Unknown Medications RESULTS No Results PROCEDURES No Known procedures INSTRUCTIONS MEDICATIONS ADMINISTERED No Known Medications MEDICAL (GENERAL) HISTORY Type Description Date Medical History Guardian requests that we do not explain any treatment to patient!
--- OUTSIDE RECORDS SUMMARY | 2020-04-25 15:01 | XMS REPORT ---
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 Active 16948518 Problem Attention deficit hyperactivity disorder (ADHD), combi dylon type F90.2 Active 596408467 Problem Bipolar disorder, unspecified 296.80 Active 39117604 ALLERGIES No Known Allergies ENCOUNTERS Encounter Location Date Diagnosis [facility] [address] [id number] [address] [place] [address] Jun, [facility] [address] [id number] [address] [place] [address] [id number] Jun, Dental examination Z01.20 [facility] [address] [facility] [id number] [address] [place] [address] May, [facility] [address] [facility] [id number] [address] [place] [address] Apr, Bipolar disorder, unspecifie d F31.9 [facility] [address] [id number] [address] [place] [address] March, Bipolar disorder, unspecifie d F31.9 ; Attention deficit hyperactivity disorder (ADHD), combined type F90.2 and Posttraumatic stress disorder F43.10 [facility] [address] [facility] [id number] [address] [place] [address] Feb, [facility] [address] [facility] [id number] [address] [place] [address] Feb, Insect bite (nonvenomous), l eft knee, initial encounter S80.262A and Bitten or stung by nonvenomous insect and other nonvenomous arthropods, initial encounter W57.XXXA [facility] [address] [id number] [address] [place] [address] Feb, Bipolar disorder, unspecifie d F31.9 [facility] [address] [place] [address] [id number] Feb, Dental examination Z01.20 [facility] [address] [address] Feb, Bipolar disorder, unspecifie d F31.9 ; Attention deficit hyperactivity disorder (ADHD), combined type F90.2 and Posttraumatic stress disorder F43.10 [facility] [id number] [place] [address] [id number] Feb, Dental examination Z01.20 [facility] [address] [address] Jan, Bipolar disorder, unspecifie d F31.9 [facility] [address] [address] Jan, Attention deficit hyperactiv ity disorder (ADHD), combined type F90.2 [facility] [address] [id number] [address] [place] [address] Dec, Posttraumatic stress disorde r F43.10 [facility] [address] [id number] [address] [place] [address] Dec, Posttraumatic stress disorde r F43.10 [facility] [address] [facility] [id number] [address] [place] [address] [id number] Nov, Dental examination Z01.20 [facility] [address] [id number] [address] [place] [address] [id number] 03 Nov, 2017 Encounter for dental exam an d cleaning w/o abnormal findings Z01.20 [facility] [address] [id number] [address] [place] [address] [id number] 03 Nov, 2017 Dental examination Z01.20 [facility] [address] [facility] [id number] [address] [place] [address] 08 Sep, 2017 Bipolar disorder, unspecifie d F31.9 ; Posttraumatic stress disorder F43.10 and Attention deficit hyperactivity disorder (ADHD), combined type F90.2 [facility] [address] [facility] [id number] [address] [place] [address] 09 Aug, 2017 Posttraumatic stress disorde r F43.10 [facility] [address] [facility] [id number] [address] [place] [phone] 15 Jul, 2017 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.899 [facility] [address] [facility] [id number] [address] [place] [phone] 11 Jul, 2017 Bipolar disorder, unspecifie d F31.9 ; Attention deficit hyperactivity disorder (ADHD), combined type F90.2 and Posttraumatic stress disorder F43.10 [facility] [address] [facility] [id number] [address] [place] [address] 09 Jun, 2017 Bipolar disorder, unspecifie d F31.9 ; Posttraumatic stress disorder F43.10 ; Attention deficit hyperactivity disorder (ADHD), combined type F90.2 and 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.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 [facility] [address] [facility] [id number] [address] [place] [address] March, Bipolar disorder, unspecifie d F31.9 ; Posttraumatic stress disorder F43.10 and Attention deficit hyperactivity disorder (ADHD), combined type F90.2 [facility] [address] [facility] [id number] [address] [place] [phone] 08 Dec, 2016 Bipolar disorder, unspecifie d F31.9 ; Posttraumatic stress disorder F43.10 and Attention deficit hyperactivity disorder (ADHD), combined type F90.2 [facility] [address] [id number] [address] [place] [address] Dec, [facility] [address] [id number] [address] [place] [address] Sep, [facility] [address] [id number] [address] [place] [address] Aug, Bipolar disorder, unspecifie d F31.9 ; Posttraumatic stress disorder F43.10 and Attention deficit hyperactivity disorder (ADHD), combined type F90.2 [facility] [address] [id number] [address] [place] [address] Jun, [facility] [address] [id number] [address] [place] [address] March, [facility] [address] [id number] [address] [place] [address] Feb, Bipolar disorder, unspecifie d F31.9 ; Attention deficit hyperactivity disorder (ADHD), combined type F90.2 and Posttraumatic stress disorder F43.10 [facility] [address] [id number] [address] [place] [address] Feb, [facility] [address] [id number] [address] [place] [address] Feb, [facility] [address] [id number] [address] [place] [phone] Feb, [facility] [address] [id number] [address] [place] [address] Jan, [facility] [address] [id number] [address] [place] [address] [id number] Dec, Dental examination Z01.20 [facility] [address] [id number] [address] [place] [address] Sep, [facility] [address] [id number] [address] [place] [address] Sep, Attention deficit hyperactiv ity disorder (ADHD), combined type F90.2 ; Posttraumatic stress disorder F43.10 and Bipolar disorder, unspecified F31.9 [facility] [address] [facility] [id number] [address] [place] [address] Aug, [facility] [address] [facility] [id number] [address] [place] [address] Aug, [facility] [address] [id number] [address] [place] [address] Jul, [facility] [address] [facility] [id number] [address] [place] [address] May, Bipolar disorder, unspecifie d 296.80 ; 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.00 and Posttraumatic stress disorder 309.81 [facility] [address] [facility] [id number] [address] [place] [address] May, [facility] [address] [id number] [address] [place] [address] May, [facility] [address] [facility] [id number] [address] [place] [address] May, [facility] [address] [facility] [id number] [address] [place] [address] Apr, [facility] [address] [facility] [id number] [address] [place] [address] Apr, [facility] [address] [id number] [address] [place] [address] Apr, [facility] [address] [facility] [id number] [address] [place] [address] March, [facility] [address] [id number] [address] [place] [address] March, [facility] [address] [facility] [id number] [address] [place] [address] March, [facility] [address] [id number] [address] [place] [phone] 14 Feb, 2015 [facility] [address] [id number] [address] [place] [address], [place] [address] Feb, [facility] [address] [id number] [address] [place] [address], [place] [address] Jan, [facility] [address] [id number] [address] [place] [address], [place] [address] Jan, [facility] [address] [id number] [address] [place] [address], [place] [address] Jan, [facility] [address] [id number] [address] [place] [address], [place] [address] Jan, [facility] [address] [id number] [address] [place] [address], [place] [address] Jan, [facility] [address] [id number] [address] [place] [address], [place] [address] Jan, [facility] [address] [id number] [address] [place] [address], [place] [address] Jan, [facility] [address] [id number] [address] [place] [address], [place] [address] Jan, [facility] [address] [id number] [address] [place] [address], [place] [address] Jan, [facility] [address] [id number] [address] [place] [address], [place] [address] Jan, [facility] [address] [id number] [address] [place] [address], [place] [address] Dec, [facility] [address] [id number] [address] [place] [address], [place] [address] Dec, [facility] [address] [id number] [address] [place] [address], [place] [address] Dec, [facility] [address] [id number] [address] [place] [address], [place] [address] Dec, [facility] [address] [id number] [address] [place] [address], [place] [address] Oct, [facility] [address] [id number] [address] [place] [address], [place] [address] Oct, [facility] [address] [id number] [address] [place] [address], [place] [address] Oct, [facility] [address] [id number] [address] [place] [address], [place] [address] Oct, [facility] [address] [id number] [address] [place] [address], [place] [address] Oct, [facility] [address] [id number] [address] [place] [address], [place] [address] Oct, [facility] [address] [id number] [address] [place] [address], [place] [address] Oct, [facility] [address] [id number] [address] [place] [address], [place] [address] Sep, [facility] [address] [id number] [address] [place] [address], [place] [address] Sep, [facility] [address] [id number] [address] [place] [address], [place] [address] Sep, [facility] [address] [id number] [address] [place] [address], [place] [address] Sep, [facility] [address] [id number] [address] [place] [address], [place] [address] Sep, [facility] [address] [id number] [address] [place] [address], [place] [address] 18 Sep, 2014 [facility] [address] [id number] [address] [place] [address], [place] [address] Sep, [facility] [address] [id number] [address] [place] [address], [place] [address] Sep, [facility] [address] [id number] [address] [place] [address], [place] [address] Aug, [facility] [address] [id number] [address] [place] [address], [place] [address] Aug, [facility] [address] [id number] [address] [place] [address], [place] [address] Aug, [facility] [address] [id number] [address] [place] [address], [place] [address] Aug, [facility] [address] [id number] [address] [place] [address], [place] [address] Jul, [facility] [address] [id number] [address] [place] [address], [place] [address] Jul, [facility] [address] [id number] [address] [place] [address], [place] [address] Jul, [facility] [address] [id number] [address] [place] [address], [place] [address] Jul, [facility] [address] [id number] [address] [place] [address], [place] [address] Jun, [facility] [address] [id number] [address] [place] [address], [place] [address] Jun, [facility] [address] [id number] [address] [place] [address], [place] [address] Jun, [facility] [address] [id number] [address] [place] [address], [place] [address] Jun, [facility] [address] [id number] [address] [place] [address], [place] [address] May, [facility] [address] [id number] [address] [place] [address], [place] [address] May, [facility] [address] [id number] [address] [place] [address], [place] [address] May, [facility] [address] [id number] [address] [place] [address], [place] [address] May, [facility] [address] [id number] [facility] [address] Apr, [facility] [address] [id number] [address] [place] [address], [place] [address] Apr, [facility] [address] [id number] [facility] [address] Apr, [facility] [address] [id number] [address] [place] [address], [place] [address] Apr, [facility] [address] [id number] [address] [place] [address], [place] [address] Apr, [facility] [address] [id number] [address] [place] [address], [place] [address] Apr, [facility] [address] [id number] [address] [place] [address], [place] [address] Apr, [facility] [address] [id number] [address] [place] [address], [place] [address] Apr, [facility] [address] [id number] [address] [place] [address], [place] [address] Apr, [facility] [address] [id number] [address] [place] [address], [place] [address] Apr, [facility] [address] [id number] [address] [place] [address], [place] [address] Apr, [facility] [address] [id number] [address] [place] [address], [place] [address] Apr, [facility] [address] [id number] [address] [place] [address], [place] [address] Apr, [facility] [address] [id number] [address] [place] [address], [place] [address] March, [facility] [address] [id number] [address] [place] [address], [place] [address] March, [facility] [address] [id number] [address] [place] [address], [place] [address] March, [facility] [address] [id number] [address] [place] [address], [place] [address] March, [facility] [address] [id number] [address] [place] [address], [place] [address] Jan, [facility] [address] [id number] [address] [place] [address], [place] [address] Jan, [facility] [address] [id number] [address] [place] [address], [place] [address] Jan, [facility] [address] [id number] [address] [place] [address], [place] [address] Jan, [facility] [address] [id number] [address] [place] [address], [place] [address] Jan, [facility] [address] [id number] [address] [place] [address], [place] [address] Jan, [facility] [address] [id number] [address] [place] [address], [place] [address] Dec, [facility] [address] [id number] [address] [place] [address], [place] [address] Dec, [facility] [address] [id number] [address] [place] [address], [place] [address] Dec, [facility] [address] [id number] [address] [place] [address], [place] [address] Dec, [facility] [address] [id number] [address] [place] [address], [place] [address] Nov, [facility] [address] [id number] [address] [place] [address], [place] [address] Nov, [facility] [address] [id number] [address] [place] [address], [place] [address] Nov, [facility] [address] [id number] [address] [place] [address], [place] [address] Nov, [facility] [address] [id number] [address] [place] [address], [place] [address] Oct, [facility] [address] [id number] [address] [place] [address], [place] [address] Oct, [facility] [address] [id number] [address] [place] [address], [place] [address] Oct, [facility] [address] [id number] [address] [place] [address], [place] [address] Oct, [facility] [address] [id number] [address] [place] [address], [place] [address] Oct, [facility] [address] [id number] [address] [place] [address], [place] [address] Oct, [facility] [address] [id number] [address] [place] [address], [place] [address] Oct, [facility] [address] [id number] [address] [place] [address], [place] [address] Oct, [facility] [address] [id number] [address] [place] [address], [place] [address] Sep, [facility] [address] [id number] [address] [place] [address], [place] [address] Sep, [facility] [address] [id number] [address] [place] [address], [place] [address] Jul, [facility] [address] [id number] [address] [place] [address], [place] [address] Jul, [facility] [address] [id number] [address] [place] [address], [place] [address] Jul, [facility] [address] [id number] [address] [place] [address], [place] [address] Jul, [facility] [address] [id number] [address] [place] [address], [place] [address] Jun, [facility] [address] [id number] [address] [place] [address], [place] [address] Jun, [facility] [address] [id number] [address] [place] [address], [place] [address] May, [facility] [address] [id number] [address] [place] [address], [place] [address] Apr, [facility] [address] [id number] [address] [place] [address], [place] [address] Apr, [facility] [address] [id number] [address] [place] [address], [place] [address] Apr, [facility] [address] [id number] [address] [place] [address], [place] [address] March, [facility] [address] [id number] [address] [place] [address], [place] [address] March, [facility] [address] [id number] [address] [place] [address], [place] [address] Feb, [facility] [address] [id number] [address] [place] [address], [place] [address] Jan, [facility] [address] [id number] [address] [place] [address], [place] [address] Jan, [facility] [address] [id number] [address] [place] [address], [place] [address] Dec, [facility] [address] [id number] [address] [place] [address], [place] [address] Dec, [facility] [address] [id number] [address] [place] [address], [place] [address] Nov, [facility] [address] [id number] [address] [place] [address], [place] [address] Nov, [facility] [address] [id number] [address] [place] [address], [place] [address] Nov, [facility] [address] [id number] [address] [place] [address], [place] [address] Oct, [facility] [address] [id number] [address] [address] 18 Oct, 2012 [facility] [address] [id number] [address] [place] [address], [place] [address] 05 Oct, 2012 [facility] [address] [id number] [address] [place] [address], [place] [address] 05 Oct, 2012 [facility] [address] [id number] [address] [place] [address], [place] [address] Sep, [facility] [address] [id number] [address] [place] [address] Sep, [facility] [address] [id number] [address] [place] [address], [place] [address] Sep, [facility] [address] [id number] [address] [place] [address], [place] [address] Sep, [facility] [address] [id number] [address] [place] [address], [place] [address] Sep, [facility] [address] [id number] [address] [place] [address], [place] [address] 15 Sep, 2012 [facility] [address] [id number] [address] [place] [address], [place] [address] 02 Aug, 2012 [facility] [address] [id number] [address] [place] [address], [place] [address] 26 Jul, 2012 [facility] [address] [id number] [address] [place] [address], [place] [address] 19 Jul, 2012 [facility] [address] [id number] [address] [place] [address], [place] [address] 18 Jul, 2012 [facility] [address] [id number] [address] [place] [address], [place] [address] 14 Jul, 2012 [facility] [address] [id number] [address] [place] [address], [place] [address] 28 Jun, 2012 [facility] [address] [id number] [address] [place] [address], [place] [address] 20 Jun, 2012 [facility] [address] [id number] [address] [place] [address], [place] [address] Jun, [facility] [address] [id number] [address] [place] [address], [place] [id number] Jun, [facility] [address] [id number] [address] [place] [address], [place] [address] May, [facility] [address] [id number] [address] [place] [address], [place] [address] Apr, [facility] [address] [id number] [address] [place] [address], [place] [address] March, [facility] [address] [id number] [address] [place] [address], [place] [address] March, [facility] [address] [id number] [address] [place] [address], [place] [address] March, [facility] [address] [id number] [address] [place] [address], [place] [address] Feb, [facility] [address] [id number] [address] [place] [address], [place] [address] Feb, [facility] [address] [id number] [address] [place] [address], [place] [address] Jan, [facility] [address] [id number] [address] [place] [address], [place] [address] Jan, [facility] [address] [id number] [address] [place] [address], [place] [address] Jan, [facility] [address] [id number] [address] [place] [address], [place] [address] Dec, [facility] [address] [id number] [address] [place] [address], [place] [address] Dec, [facility] [address] [id number] [address] [place] [address], [place] [address] Nov, [facility] [address] [id number] [address] [place] [address], [place] [address] Nov, [facility] [address] [id number] [address] [place] [address], [place] [address] 13 Nov, 2011 [facility] [address] [id number] [address] [place] [address], [place] [address] Nov, [facility] [address] [id number] [address] [place] [address], [place] [address] Nov, [facility] [address] [id number] [address] [place] [address], [place] [address] Oct, [facility] [address] [id number] [address] [place] [address], [place] [address] Oct, [facility] [address] [id number] [address] [place] [address], [place] [address] Oct, [facility] [address] [id number] [address] [place] [address], [place] [address] Oct, [facility] [address] [id number] [address] [place] [address] Sep, [facility] [address] [id number] [address] [place] [address], [place] [address] Sep, [facility] [address] [id number] [address] [place] [address] Sep, [facility] [address] [id number] [address] [place] [address], [place] [address] Aug, [facility] [address] [id number] [address] [place] [address] Oct, [facility] [address] [id number] [address] [place] [address], [place] [address] Oct, [facility] [address] [id number] [address] [place] [id number] Oct, [facility] [address] [id number] [address] [place] [id number] Oct, IMMUNIZATIONS No Known Immunizations SOCIAL HISTORY Never Assessed REASON FOR VISIT [facility] [place] PLAN OF CARE Activity Details Follow Up 3 Months Reason: f/slim VITAL SIGNS Height 68.5 in 2018-04-05 Weight 220.2 lbs 2018-04-05 Heart Rate 100 bpm 2018-04-05 Respiratory Rate 20 2018-04-05 BMI 32.99 kg/m2 2018-04-05 Blood pressure systolic 124 mmHg 2018-04-05 Blood pressure diastolic 80 mmHg 2018-04-05 MEDICATIONS Medication Instructions Dosage Frequency Start Date End Date Duration S tatus Clonidine HCl 0.1 Orally twice a day 1 tablet 12h 30 Active Clonidine HCl 0.1 MG Orally twice a day 1 tablet 12h Active BusPIRone HCl 5 mg Orally in am once a day 1 tablet 24h Active Triamcinolone Acetonide 0.1 % Externally Twice a day 1 appli cation to affected area 12h Feb, 7 days Active Intuniv 2 mg Orally Once a day 1 tablet 24h Active Xanax 0.25 MG Orally once daily 1 tablet 24h Sep, Active DDAVP 0.2 mg TAKE ONE TABLET BY MOUTH DAILY Active Trazodone HCl 100 mg Orally Once a day 1 tablet 24h Active Toviaz 4 MG Orally Once a day 1 tablet 24h N ot-Taking Intuniv 2 TAKE ONE TABLET BY MOUTH DAILY 30 Active Loratadine 10 MG Orally Once a day 1 tablet 24h Not-Taking Zoloft 100 mg Orally Once a day 1 tablet 24h Active Zyprexa Zydis 5 MG Orally as needed Once a day 1 tablet on the tongue and allow to dissolve 24h Active Abilify 20 mg Orally Once a day 1 tablet 24h Feb, Active RESULTS No Results PROCEDURES No Known procedures INSTRUCTIONS MEDICATIONS ADMINISTERED No Known Medications MEDICAL (GENERAL) HISTORY Type Description Date Medical History Guardian requests that we do not explain any treatment to patient!
--- OUTSIDE RECORDS SUMMARY | 2020-04-25 15:01 | XMS REPORT ---
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 Active 82658405 Problem Attention deficit hyperactivity disorder (ADHD), combi dylon type F90.2 Active 052920075 Problem Bipolar disorder, unspecified 296.80 Active [id number] ALLERGIES No Information ENCOUNTERS Encounter Location Date Diagnosis [facility] [address] [facility] [id number] [address] [place] [id number] Jun, [place] [id number] [id number] [place] [address] [id number] Jun, [facility] [address] [facility] [id number] [address] [place] [phone] May, [facility] [address] [facility] [id number] [address] [place] [id number] Apr, Bipolar disorder, unspecifie d F31.9 [facility] [address] [facility] [id number] [address] [place] [id number] March, Bipolar disorder, unspecifie d F31.9 ; Attention deficit hyperactivity disorder (ADHD), combined type F90.2 and Posttraumatic stress disorder F43.10 [facility] [address] [facility] [id number] [address] [place] [id number] Feb, [facility] [address] [place] [id number] [address] [place] [phone] Feb, Insect bite (nonvenomous), l eft knee, initial encounter S80.262A and Bitten or stung by nonvenomous insect and other nonvenomous arthropods, initial encounter W57.XXXA [facility] [address] [id number] Feb, Bipolar disorder, unspecifie d F31.9 [facility] [address] [place] [address] [id number] [place] [address] [id number] Feb, Dental examination Z01.20 [facility] [address] [id number] Feb, Bipolar disorder, unspecifie d F31.9 ; Attention deficit hyperactivity disorder (ADHD), combined type F90.2 and Posttraumatic stress disorder F43.10 [facility] [address] [id number] Feb, Dental examination Z01.20 [facility] [address] [address] Jan, Bipolar disorder, unspecifie d F31.9 [facility] [address] [id number] Jan, Attention deficit hyperactiv ity disorder (ADHD), combined type F90.2 [facility] [address] [id number] Dec, Posttraumatic stress disorde r F43.10 [facility] [address] [id number] Dec, Posttraumatic stress disorde r F43.10 [facility] [id number] [place] [address] [id number] Nov, Dental examination Z01.20 [facility] [address], [place] [id number] Nov, Encounter for dental exam an d cleaning w/o abnormal findings Z01.20 [facility] [address] [id number] [address] [place] [address] [id number] 03 Nov, 2017 Dental examination Z01.20 [facility] [address] [facility] [id number] [address] [place] [id number] 08 Sep, 2017 Bipolar disorder, unspecifie d F31.9 ; Posttraumatic stress disorder F43.10 and Attention deficit hyperactivity disorder (ADHD), combined type F90.2 [facility] [address] [facility] [id number] [address] [place] [id number] 09 Aug, 2017 Posttraumatic stress disorde r F43.10 [facility] [address] [facility] [id number] [address] [place] [id number] 15 Jul, 2017 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 [facility] [id number] [place] [id number] 11 Jul, 2017 Bipolar disorder, unspecifie d F31.9 ; Attention deficit hyperactivity disorder (ADHD), combined type F90.2 and Posttraumatic stress disorder F43.10 [facility] [address] [place] [id number] [address] [place] [id number] 09 Jun, 2017 Bipolar disorder, unspecifie d F31.9 ; Posttraumatic stress disorder F43.10 ; Attention deficit hyperactivity disorder (ADHD), combined type F90.2 and Other jail (current) drug therapy Z79.899 [facility] [address] [facility] [id number] [address] [place] [phone] March, Bipolar disorder, unspecifie d F31.9 ; Posttraumatic stress disorder F43.10 and Attention deficit hyperactivity disorder (ADHD), combined type F90.2 [facility] [address] [facility] [id number] [address] [place] [phone] 08 Dec, 2016 Bipolar disorder, unspecifie d F31.9 ; Posttraumatic stress disorder F43.10 and Attention deficit hyperactivity disorder (ADHD), combined type F90.2 [facility] [address] [id number] [address] [place] [phone] Dec, [facility] [address] [id number] [address] [place] [id number] Sep, [facility] [address] [id number] [address] [place] [id number] Aug, Bipolar disorder, unspecifie d F31.9 ; Posttraumatic stress disorder F43.10 and Attention deficit hyperactivity disorder (ADHD), combined type F90.2 [facility] [address] [id number] [address] [place] [phone] Jun, [facility] [address] [id number] [address] [place] [phone] March, [facility] [address] [id number] [address] [place] [phone] Feb, Bipolar disorder, unspecifie d F31.9 ; Attention deficit hyperactivity disorder (ADHD), combined type F90.2 and Posttraumatic stress disorder F43.10 [facility] [address] [id number] [address] [place] [id number] Feb, [facility] [address] [id number] [address] [place] [phone] Feb, [facility] [address] [id number] [address] [place] [id number] Feb, [facility] [address] [id number] [address] [place] [id number] Jan, [facility] [address] [id number] [address] [place] [address] [id number] Dec, Dental examination Z01.20 [facility] [address] [id number] [address] [place] [phone] Sep, [facility] [address] [id number] [address] [place] [phone] Sep, Attention deficit hyperactiv ity disorder (ADHD), combined type F90.2 ; Posttraumatic stress disorder F43.10 and Bipolar disorder, unspecified F31.9 [facility] [address] [facility] [id number] [address] [place] [phone] Aug, [facility] [address] [facility] [id number] [address] [place] [phone] Aug, [facility] [address] [facility] [id number] [address] [place] [id number] Jul, [facility] [address] [facility] [id number] [address] [place] [phone] May, Bipolar disorder, unspecifie d 296.80 ; 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.00 and Posttraumatic stress disorder 309.81 [facility] [address] [facility] [id number] [address] [place] [phone] May, [facility] [address] [facility] [id number] [address] [place] [phone] May, [facility] [address] [facility] [id number] [address] [place] [id number] May, [facility] [address] [facility] [id number] [address] [place] [id number] Apr, [facility] [address] [facility] [id number] [address] [place] [id number] Apr, [facility] [address] [facility] [id number] [address] [place] [id number] Apr, [facility] [address] [facility] [id number] [address] [place] [id number] March, [facility] [address] [facility] [id number] [address] [place] [id number] March, [facility] [address] [facility] [id number] [address] [place] [id number] March, [facility] [address] [facility] [id number] [address] [place] [phone] Feb, [facility] [address] [id number] [address] [place] [address], [place] [address] 13 Feb, 2015 [facility] [address] [id number] [address] [place] [address], [place] [address] Jan, [facility] [address] [id number] [address] [place] [address], [place] [address] Jan, [facility] [address] [id number] [address] [place] [address], [place] [address] Jan, [facility] [address] [id number] [address] [place] [address], [place] [address] Jan, [facility] [address] [id number] [address] [place] [address], [place] [address] Jan, [facility] [address] [id number] [address] [place] [address], [place] [address] Jan, [facility] [address] [id number] [address] [place] [address], [place] [address] Jan, [facility] [address] [id number] [address] [place] [address], [place] [address] Jan, [facility] [address] [id number] [address] [place] [address], [place] [address] Jan, [facility] [address] [id number] [address] [place] [address], [place] [address] Jan, [facility] [address] [id number] [address] [place] [address], [place] [address] Dec, [facility] [address] [id number] [address] [place] [address], [place] [address] Dec, [facility] [address] [id number] [address] [place] [address], [place] [address] Dec, [facility] [address] [id number] [address] [place] [address], [place] [address] Dec, [facility] [address] [id number] [address] [place] [address], [place] [address] Oct, [facility] [address] [id number] [address] [place] [address], [place] [address] Oct, [facility] [address] [id number] [address] [place] [address], [place] [address] Oct, [facility] [address] [id number] [address] [place] [address], [place] [address] Oct, [facility] [address] [id number] [address] [place] [address], [place] [address] Oct, [facility] [address] [id number] [address] [place] [address], [place] [address] Oct, [facility] [address] [id number] [address] [place] [address], [place] [address] Oct, [facility] [address] [id number] [address] [place] [address], [place] [address] Sep, [facility] [address] [id number] [address] [place] [address], [place] [address] Sep, [facility] [address] [id number] [address] [place] [address], [place] [address] Sep, [facility] [address] [id number] [address] [place] [address], [place] [address] Sep, [facility] [address] [id number] [address] [place] [address], [place] [address] Sep, [facility] [address] [id number] [address] [place] [address], [place] [address] Sep, [facility] [address] [id number] [address] [place] [address], [place] [address] Sep, [facility] [address] [id number] [address] [place] [address], [place] [address] Sep, [facility] [address] [id number] [address] [place] [address], [place] [address] Aug, [facility] [address] [id number] [address] [place] [address], [place] [address] Aug, [facility] [address] [id number] [address] [place] [address], [place] [address] Aug, [facility] [address] [id number] [address] [place] [address], [place] [address] Aug, [facility] [address] [id number] [address] [place] [address], [place] [address] Jul, [facility] [address] [id number] [address] [place] [address], [place] [address] Jul, [facility] [address] [id number] [address] [place] [address], [place] [address] Jul, [facility] [address] [id number] [address] [place] [address], [place] [address] Jul, [facility] [address] [id number] [address] [place] [address], [place] [address] Jun, [facility] [address] [id number] [address] [place] [address], [place] [address] Jun, [facility] [address] [id number] [address] [place] [address], [place] [address] Jun, [facility] [address] [id number] [address] [place] [address], [place] [address] Jun, [facility] [address] [id number] [address] [place] [address], [place] [address] May, [facility] [address] [id number] [address] [place] [address], [place] [address] May, [facility] [address] [id number] [address] [place] [address], [place] [address] May, [facility] [address] [id number] [address] [place] [address], [place] [address] May, [facility] [address] [id number] [address] [place] [address], [place] [address] Apr, [facility] [address] [id number] [facility] [place] [address] Apr, [facility] [address] [id number] [address] [place] [address], [place] [address] Apr, [facility] [address] [id number] [address] [place] [address], [place] [address] Apr, [facility] [address] [id number] [address] [place] [address], [place] [address] Apr, [facility] [address] [id number] [address] [place] [address], [place] [address] Apr, [facility] [address] [id number] [address] [place] [address], [place] [address] Apr, [facility] [address] [id number] [address] [place] [address], [place] [address] Apr, [facility] [address] [id number] [address] [place] [address], [place] [address] Apr, [facility] [address] [id number] [address] [place] [address], [place] [address] Apr, [facility] [address] [id number] [address] [place] [address], [place] [address] Apr, [facility] [address] [id number] [address] [place] [address], [place] [address] Apr, [facility] [address] [id number] [address] [place] [address], [place] [address] Apr, [facility] [address] [id number] [address] [place] [address], [place] [address] March, [facility] [address] [id number] [address] [place] [address], [place] [address] March, [facility] [address] [id number] [address] [place] [address], [place] [address] March, [facility] [address] [id number] [address] [place] [address], [place] [address] March, [facility] [address] [id number] [address] [place] [address], [place] [address] Jan, [facility] [address] [id number] [address] [place] [address], [place] [address] Jan, [facility] [address] [id number] [address] [place] [address], [place] [address] Jan, [facility] [address] [id number] [address] [place] [address], [place] [address] Jan, [facility] [address] [id number] [address] [place] [address], [place] [address] Jan, [facility] [address] [id number] [address] [place] [address], [place] [address] Jan, [facility] [address] [id number] [address] [place] [address], [place] [address] Dec, [facility] [address] [id number] [address] [place] [address], [place] [address] Dec, [facility] [address] [id number] [address] [place] [address], [place] [address] Dec, [facility] [address] [id number] [address] [place] [address], [place] [address] Dec, [facility] [address] [id number] [address] [place] [address], [place] [address] Nov, [facility] [address] [id number] [address] [place] [address], [place] [address] Nov, [facility] [address] [id number] [address] [place] [address], [place] [address] Nov, [facility] [address] [id number] [address] [place] [address], [place] [address] Nov, [facility] [address] [id number] [address] [place] [address], [place] [address] Oct, [facility] [address] [id number] [address] [place] [address], [place] [address] Oct, [facility] [address] [id number] [address] [place] [address], [place] [address] Oct, [facility] [address] [id number] [address] [place] [address], [place] [address] Oct, [facility] [address] [id number] [address] [place] [address], [place] [address] Oct, [facility] [address] [id number] [address] [place] [address], [place] [address] Oct, [facility] [address] [id number] [address] [place] [address], [place] [address] Oct, [facility] [address] [id number] [address] [place] [address], [place] [address] Oct, [facility] [address] [id number] [address] [place] [address], [place] [address] Sep, [facility] [address] [id number] [address] [place] [address], [place] [address] Sep, [facility] [address] [id number] [address] [place] [address], [place] [address] Jul, [facility] [address] [id number] [address] [place] [address], [place] [address] Jul, [facility] [address] [id number] [address] [place] [address], [place] [address] Jul, [facility] [address] [id number] [address] [place] [address], [place] [address] Jul, [facility] [address] [id number] [address] [place] [address], [place] [address] Jun, [facility] [address] [id number] [address] [place] [address], [place] [address] Jun, [facility] [address] [id number] [address] [place] [address], [place] [address] 08 May, 2013 [facility] [address] [id number] [address] [place] [address], [place] [address] Apr, [facility] [address] [id number] [address] [place] [address], [place] [address] Apr, [facility] [address] [id number] [address] [place] [address], [place] [address] Apr, [facility] [address] [id number] [address] [place] [address], [place] [address] March, [facility] [address] [id number] [address] [place] [address], [place] [address] March, [facility] [address] [id number] [address] [place] [address], [place] [address] Feb, [facility] [address] [id number] [address] [place] [address], [place] [address] Jan, [facility] [address] [id number] [address] [place] [address], [place] [address] Jan, [facility] [address] [id number] [address] [place] [address], [place] [address] Dec, [facility] [address] [id number] [address] [place] [address], [place] [address] Dec, [facility] [address] [id number] [address] [place] [address], [place] [address] Nov, [facility] [address] [id number] [address] [place] [address], [place] [address] Nov, [facility] [address] [id number] [address] [place] [address], [place] [address] Nov, [facility] [address] [id number] [address] [place] [address], [place] [address] Oct, [facility] [address] [id number] [address] [place] [address], [place] [address] Oct, [facility] [address] [id number] [address] [place] [address], [place] [address] 05 Oct, 2012 [facility] [address] [id number] [address] [place] [address], [place] [address] Oct, [facility] [address] [id number] [address] [place] [address], [place] [address] Sep, [facility] [address] [id number] [address] [place] [address], [place] [address] Sep, [facility] [address] [id number] [address] [place] [address], [place] [address] Sep, [facility] [address] [id number] [address] [place] [address], [place] [address] Sep, [facility] [address] [id number] [address] [place] [address], [place] [address] Sep, [facility] [address] [id number] [address] [place] [address], [place] [address] 15 Sep, 2012 [facility] [address] [id number] [address] [place] [address], [place] [address] 02 Aug, 2012 [facility] [address] [id number] [address] [place] [id number] 26 Jul, 2012 [facility] [address] [id number] [address] [place] [address], [place] [address] 19 Jul, 2012 [facility] [address] [id number] [address] [place] [id number] 18 Jul, 2012 [facility] [address] [id number] [address] [place] [address], [place] [address] 14 Jul, 2012 [facility] [address] [id number] [address] [place] [address], [place] [address] 28 Jun, 2012 [facility] [address] [id number] [address] [place] [id number] 20 Jun, 2012 [facility] [address] [id number] [address] [place] [id number] Jun, [facility] [address] [id number] [address] [place] [address], [place] [address] Jun, [facility] [address] [id number] [address] [place] [address], [place] [address] May, [facility] [address] [id number] [address] [place] [address], [place] [address] Apr, [facility] [address] [id number] [address] [place] [address], [place] [address] March, [facility] [address] [id number] [address] [place] [address], [place] [address] March, [facility] [facility] [address] [id number] [address] [place] [address], [place] [address] March, [facility] [address] [id number] [address] [place] [address], [place] [address] Feb, [facility] [address] [id number] [address] [place] [address], [place] [address] Feb, [facility] [address] [id number] [address] [place] [address], [place] [address] Jan, [facility] [address] [id number] [address] [place] [address], [place] [address] Jan, [facility] [address] [id number] [address] [place] [address], [place] [address] Jan, [facility] [address] [id number] [address] [place] [address], [place] [address] Dec, [facility] [address] [id number] [address] [place] [address], [place] [address] Dec, [facility] [address] [id number] [address] [place] [address], [place] [address] Nov, [facility] [address] [id number] [address] [place] [address], [place] [address] Nov, [facility] [address] [id number] [address] [place] [id number] Nov, [facility] [address] [id number] [address] [place] [id number] Nov, [facility] [address] [id number] [address] [place] [id number] Nov, [facility] [address] [id number] [address] [place] [id number] Oct, [facility] [address] [id number] [address] [place] [id number] Oct, [facility] [address] [id number] [address] [place] [id number] Oct, [facility] [address] [id number] [address] [place] [id number] Oct, [facility] [address] [id number] [address] [place] [id number] Sep, [facility] [address] [id number] [address] [place] [id number] Sep, [facility] [address] [id number] [address] [place] [id number] Sep, [facility] [address] [id number] [address] [place] [id number] Aug, [facility] [address] [id number] [address] [place] [id number] Oct, [facility] [address] [id number] [address] [place] [id number] Oct, [facility] [address] [id number] [address] [place] [id number] Oct, [facility] [address] [id number] [address] [place] [id number] Oct, IMMUNIZATIONS No Known Immunizations SOCIAL HISTORY [...]
--- OUTSIDE RECORDS SUMMARY | 2020-04-25 15:02 | XMS REPORT ---
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 [id number] [address] [place] [phone] Jun, [facility] [address] [facility] [id number] [place] [id number] Jun, [facility] [address] [facility] [id number] [address] [place] [address] May, [facility] [address] [facility] [id number] [address] [place] [address] Apr, Bipolar disorder, unspecifie d F31.9 [facility] [address] [facility] [id number] [address] [place] [address] March, Bipolar disorder, unspecifie d F31.9 ; Attention deficit hyperactivity disorder (ADHD), combined type F90.2 and Posttraumatic stress disorder F43.10 [facility] [address] [facility] [id number] [address] [place] [address] Feb, [facility] [address] [id number] [address] [place] [phone] Feb, Insect bite (nonvenomous), l eft knee, initial encounter S80.262A and Bitten or stung by nonvenomous insect and other nonvenomous arthropods, initial encounter W57.XXXA [facility] [address] [id number] Feb, Bipolar disorder, unspecifie d F31.9 [facility] [id number] [place] [id number] Feb, Dental examination Z01.20 [facility] [address] [id number] Feb, Bipolar disorder, unspecifie d F31.9 ; Attention deficit hyperactivity disorder (ADHD), combined type F90.2 and Posttraumatic stress disorder F43.10 [facility] [address] [id number] Feb, Dental examination Z01.20 [facility] [address] [id number] Jan, Bipolar disorder, unspecifie d F31.9 [facility] [address] [address] Jan, Attention deficit hyperactiv ity disorder (ADHD), combined type F90.2 [facility] [address] [id number] [address] [place] [address] Dec, Posttraumatic stress disorde r F43.10 [facility] [address] [address] Dec, Posttraumatic stress disorde r F43.10 [facility] [address] [facility] [id number] [address] [place] [address] [id number] Nov, Dental examination Z01.20 [facility] [address] [id number] [address] [place] [id number] 03 Nov, 2017 Dental examination Z01.20 [facility] [address] [id number] [address] [place] [address] [id number] 03 Nov, 2017 Encounter for dental exam an d cleaning w/o abnormal findings Z01.20 [facility] [address] [facility] [id number] [address] [place] [id number] 08 Sep, 2017 Bipolar disorder, unspecifie d F31.9 ; Posttraumatic stress disorder F43.10 and Attention deficit hyperactivity disorder (ADHD), combined type F90.2 [facility] [address] [facility] [id number] [address] [place] [id number] 09 Aug, 2017 Posttraumatic stress disorde r F43.10 [facility] [address] [facility] [id number] [address] [place] [id number] 15 Jul, 2017 Other intermission coordinator (current) dr ug therapy Z79.899 [place] [address] [facility] [id number] [address] [place] [id number] 11 Jul, 2017 Bipolar disorder, unspecifie d F31.9 ; Attention deficit hyperactivity disorder (ADHD), combined type F90.2 and Posttraumatic stress disorder F43.10 [facility] [address] [place] [id number] [address] [place] [phone] 09 Jun, 2017 Bipolar disorder, unspecifie d F31.9 ; Posttraumatic stress disorder F43.10 ; Attention deficit hyperactivity disorder (ADHD), combined type F90.2 and Other custodial (current) drug therapy Z79.899 [facility] [address] [facility] [id number] [address] [place] [address] March, Bipolar disorder, unspecifie d F31.9 ; Posttraumatic stress disorder F43.10 and Attention deficit hyperactivity disorder (ADHD), combined type F90.2 [facility] [address] [facility] [id number] [address] [place] [phone] 08 Dec, 2016 Bipolar disorder, unspecifie d F31.9 ; Posttraumatic stress disorder F43.10 and Attention deficit hyperactivity disorder (ADHD), combined type F90.2 [facility] [address] [id number] [address] [place] [address] Dec, [facility] [address] [id number] [address] [place] [phone] Sep, [facility] [address] [id number] [address] [place] [address] Aug, Bipolar disorder, unspecifie d F31.9 ; Posttraumatic stress disorder F43.10 and Attention deficit hyperactivity disorder (ADHD), combined type F90.2 [facility] [address] [id number] [address] [place] [phone] Jun, [facility] [address] [id number] [address] [place] [phone] March, [facility] [address] [id number] [address] [place] [address] Feb, Bipolar disorder, unspecifie d F31.9 ; Attention deficit hyperactivity disorder (ADHD), combined type F90.2 and Posttraumatic stress disorder F43.10 [facility] [address] [id number] [address] [place] [phone] Feb, [facility] [address] [id number] [address] [place] [address] Feb, [facility] [address] [id number] [address] [place] [phone] Feb, [facility] [address] [id number] [address] [place] [address] Jan, [facility] [address] [id number] [address] [place] [address] [id number] Dec, Dental examination Z01.20 [facility] [address] [id number] [address] [place] [phone] Sep, [facility] [address] [facility] [id number] [address] [place] [address] Sep, Attention deficit hyperactiv ity disorder (ADHD), combined type F90.2 ; Posttraumatic stress disorder F43.10 and Bipolar disorder, unspecified F31.9 [facility] [address] [id number] [address] [place] [phone] Aug, [facility] [address] [facility] [id number] [address] [place] [phone] Aug, [facility] [address] [id number] [address] [place] [address] Jul, [facility] [address] [id number] [address] [place] [address] May, Bipolar disorder, unspecifie d 296.80 ; 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.00 and Posttraumatic stress disorder 309.81 [facility] [address] [facility] [id number] [address] [place] [address] May, [facility] [address] [id number] [address] [place] [phone] May, [facility] [address] [facility] [id number] [address] [place] [phone] May, [facility] [address] [id number] [address] [place] [address] Apr, [facility] [address] [facility] [id number] [address] [place] [phone] Apr, [facility] [address] [id number] [address] [place] [phone] Apr, [facility] [address] [facility] [id number] [address] [place] [address] March, [facility] [address] [id number] [address] [place] [phone] March, [facility] [address] [id number] [address] [place] [address] March, [facility] [address] [id number] [address] [place] [phone] 14 Feb, 2015 [facility] [address] [id number] [address] [place] [address], [place] [id number] 13 Feb, 2015 [facility] [address] [id number] [address] [place] [address], [place] [id number] 30 Jan, 2015 [facility] [address] [id number] [address] [place] [address], [place] [id number] Jan, [facility] [address] [id number] [address] [place] [address], [place] [id number] Jan, [facility] [address] [id number] [address] [place] [address], [place] [id number] Jan, [facility] [address] [id number] [address] [place] [address], [place] [id number] Jan, [facility] [address] [id number] [address] [place] [address], [place] [id number] Jan, [facility] [address] [id number] [address] [place] [address], [place] [id number] Jan, [facility] [address] [id number] [address] [place] [address], [place] [id number] Jan, [facility] [address] [id number] [address] [place] [address], [place] [id number] Jan, [facility] [address] [id number] [address] [place] [address], [place] [id number] Jan, [facility] [address] [id number] [address] [place] [address], [place] [id number] Dec, [facility] [address] [id number] [address] [place] [address], [place] [id number] Dec, [facility] [address] [id number] [address] [place] [address], [place] [id number] Dec, [facility] [address] [id number] [address] [place] [address], [place] [id number] Dec, [facility] [address] [id number] [address] [place] [address], [place] [id number] 19 Oct, 2014 [facility] [address] [id number] [address] [place] [address], [place] [id number] Oct, [facility] [address] [id number] [address] [place] [address], [place] [id number] Oct, [facility] [address] [id number] [address] [place] [address], [place] [id number] Oct, [facility] [address] [id number] [address] [place] [address], [place] [id number] Oct, [facility] [address] [id number] [address] [place] [address], [place] [id number] Oct, [facility] [address] [id number] [address] [place] [address], [place] [id number] Oct, [facility] [address] [id number] [address] [place] [address], [place] [id number] Sep, [facility] [address] [id number] [address] [place] [address], [place] [id number] Sep, [facility] [address] [id number] [address] [place] [address], [place] [id number] Sep, [facility] [address] [id number] [address] [place] [address], [place] [id number] Sep, [facility] [address] [id number] [address] [place] [address], [place] [id number] Sep, [facility] [address] [id number] [address] [place] [address], [place] [id number] Sep, [facility] [address] [id number] [address] [place] [address], [place] [id number] Sep, [facility] [address] [id number] [address] [place] [address], [place] [id number] Sep, [facility] [address] [id number] [address] [place] [address], [place] [id number] Aug, [facility] [address] [id number] [address] [place] [address], [place] [id number] Aug, [facility] [address] [id number] [address] [place] [address], [place] [id number] Aug, [facility] [address] [id number] [address] [place] [address], [place] [id number] Aug, [facility] [address] [id number] [address] [place] [address], [place] [id number] Jul, [facility] [address] [id number] [address] [place] [address], [place] [id number] Jul, [facility] [address] [id number] [address] [place] [address], [place] [id number] Jul, [facility] [address] [id number] [address] [place] [address], [place] [id number] Jul, [facility] [address] [id number] [address] [place] [address], [place] [id number] Jun, [facility] [address] [id number] [address] [place] [address], [place] [id number] Jun, [facility] [address] [id number] [address] [place] [address], [place] [address] Jun, [facility] [address] [id number] [address] [place] [address], [place] [id number] Jun, [facility] [address] [id number] [address] [place] [address], [place] [id number] May, [facility] [address] [id number] [address] [place] [address], [place] [id number] May, [facility] [address] [id number] [address] [place] [address], [place] [id number] May, [facility] [address] [id number] [address] [place] [address], [place] [address] May, [facility] [address] [id number] [address] [place] [address], [place] [id number] Apr, [facility] [address] [id number] [facility] [place] [address] Apr, [facility] [address] [id number] [facility] [place] [address] Apr, [facility] [address] [id number] [facility] [place] [address] Apr, [facility] [address] [id number] [address] [place] [address], [place] [id number] Apr, [facility] [address] [id number] [address] [place] [address], [place] [id number] Apr, [facility] [address] [id number] [address] [place] [address], [place] [address] Apr, [facility] [address] [id number] [address] [place] [address], [place] [address] Apr, [facility] [address] [id number] [address] [place] [address], [place] [id number] Apr, [facility] [address] [id number] [address] [place] [address], [place] [id number] Apr, [facility] [address] [id number] [address] [place] [address], [place] [id number] Apr, [facility] [address] [id number] [address] [place] [address], [place] [id number] Apr, [facility] [address] [id number] [address] [place] [address], [place] [id number] Apr, [facility] [address] [id number] [address] [place] [address], [place] [address] March, [facility] [address] [id number] [address] [place] [address], [place] [id number] March, [facility] [address] [id number] [address] [place] [address], [place] [address] March, [facility] [address] [id number] [address] [place] [address], [place] [id number] March, [facility] [address] [id number] [address] [place] [address], [place] [id number] Jan, [facility] [address] [id number] [address] [place] [address], [place] [id number] Jan, [facility] [address] [id number] [address] [place] [address], [place] [id number] Jan, [facility] [address] [id number] [address] [place] [address], [place] [id number] Jan, [facility] [address] [id number] [address] [place] [address], [place] [id number] Jan, [facility] [address] [id number] [address] [place] [address], [place] [id number] Jan, [facility] [address] [id number] [address] [place] [address], [place] [address] Dec, [facility] [address] [id number] [address] [place] [address], [place] [id number] Dec, [facility] [address] [id number] [address] [place] [address], [place] [address] Dec, [facility] [address] [id number] [address] [place] [address], [place] [address] Dec, [facility] [address] [id number] [address] [place] [address], [place] [id number] Nov, [facility] [address] [id number] [address] [place] [address], [place] [address] Nov, [facility] [address] [id number] [address] [place] [address], [place] [id number] Nov, [facility] [address] [id number] [address] [place] [address], [place] [address] Nov, [facility] [address] [id number] [address] [place] [address], [place] [id number] Oct, [facility] [address] [id number] [address] [place] [address], [place] [id number] Oct, [facility] [address] [id number] [address] [place] [address], [place] [id number] Oct, [facility] [address] [id number] [address] [place] [address], [place] [id number] Oct, [facility] [address] [id number] [address] [place] [address], [place] [id number] Oct, [facility] [address] [id number] [address] [place] [address], [place] [id number] Oct, [facility] [address] [id number] [address] [place] [address], [place] [id number] Oct, [facility] [address] [id number] [address] [place] [address], [place] [id number] Oct, [facility] [address] [id number] [address] [place] [address], [place] [id number] Sep, [facility] [address] [id number] [address] [place] [address], [place] [id number] Sep, [facility] [address] [id number] [address] [place] [address], [place] [id number] Jul, [facility] [address] [id number] [address] [place] [address], [place] [address] Jul, [facility] [address] [id number] [address] [place] [address], [place] [id number] Jul, [facility] [address] [id number] [address] [place] [address], [place] [id number] Jul, [facility] [address] [id number] [address] [place] [address], [place] [id number] Jun, [facility] [address] [id number] [address] [place] [address], [place] [id number] Jun, [facility] [address] [id number] [address] [place] [address], [place] [id number] 08 May, 2013 [facility] [address] [id number] [address] [place] [address], [place] [id number] Apr, [facility] [address] [id number] [address] [place] [address], [place] [id number] Apr, [facility] [address] [id number] [address] [place] [address], [place] [id number] Apr, [facility] [address] [id number] [address] [place] [address], [place] [id number] March, [facility] [address] [id number] [address] [place] [address], [place] [id number] March, [facility] [address] [id number] [address] [place] [address], [place] [id number] Feb, [facility] [address] [id number] [address] [place] [address], [place] [id number] Jan, [facility] [address] [id number] [address] [place] [address], [place] [id number] Jan, [facility] [address] [id number] [address] [place] [address], [place] [id number] Dec, [facility] [address] [id number] [address] [place] [address], [place] [id number] Dec, [facility] [address] [id number] [address] [place] [address], [place] [id number] Nov, [facility] [address] [id number] [address] [place] [address], [place] [id number] Nov, [facility] [address] [id number] [address] [place] [address], [place] [id number] Nov, [facility] [address] [id number] [address] [place] [address], [place] [id number] Oct, [facility] [address] [id number] [address] [place] [address], [place] [id number] 18 Oct, 2012 [facility] [address] [id number] [address] [place] [address], [place] [id number] Oct, [facility] [address] [id number] [address] [place] [address], [place] [id number] Oct, [facility] [address] [id number] [address] [place] [address], [place] [id number] Sep, [facility] [address] [id number] [address] [place] [address], [place] [id number] Sep, [facility] [address] [id number] [address] [place] [address], [place] [id number] Sep, [facility] [address] [id number] [address] [place] [address], [place] [id number] Sep, [facility] [address] [id number] [address] [place] [address], [place] [id number] Sep, [facility] [address] [id number] [address] [place] [address], [place] [id number] 15 Sep, 2012 [facility] [address] [id number] [address] [place] [address], [place] [id number] 02 Aug, 2012 [facility] [address] [id number] [address] [place] [address], [place] [id number] 26 Jul, 2012 [facility] [address] [id number] [address] [place] [address], [place] [id number] 19 Jul, 2012 [facility] [address] [id number] [address] [place] [address], [place] [id number] 18 Jul, 2012 [facility] [address] [id number] [address] [place] [address], [place] [id number] 14 Jul, 2012 [facility] [address] [id number] [address] [place] [address], [place] [id number] 28 Jun, 2012 [facility] [address] [id number] [address] [place] [address], [place] [id number] 20 Jun, 2012 [facility] [address] [id number] [address] [place] [address], [place] [id number] Jun, [facility] [address] [id number] [address] [place] [address], [place] [id number] Jun, [facility] [address] [id number] [address] [place] [address], [place] [id number] May, [facility] [address] [id number] [address] [place] [address], [place] [id number] Apr, [facility] [address] [id number] [address] [place] [address], [place] [id number] March, [facility] [address] [id number] [address] [place] [address], [place] [id number] March, [facility] [address] [id number] [address] [place] [address], [place] [id number] March, [facility] [address] [id number] [address] [place] [address], [place] [id number] Feb, [facility] [address] [id number] [address] [place] [address], [place] [id number] Feb, [facility] [address] [id number] [address] [place] [address], [place] [id number] Jan, [facility] [address] [id number] [address] [place] [address], [place] [id number] Jan, [facility] [address] [id number] [address] [place] [address], [place] [id number] Jan, [facility] [address] [id number] [address] [place] [address], [place] [id number] Dec, [facility] [address] [id number] [address] [place] [address], [place] [id number] Dec, [facility] [address] [id number] [address] [place] [address], [place] [id number] Nov, [facility] [address] [id number] [address] [place] [address], [place] [id number] Nov, [facility] [address] [id number] [address] [place] [id number] Nov, [facility] [address] [id number] [address] [place] [id number] Nov, [facility] [address] [id number] [address] [place] [id number] Nov, [facility] [address] [id number] [address] [place] [id number] Oct, [facility] [address] [id number] [address] [place] [id number] Oct, [facility] [address] [id number] [address] [place] [id number] Oct, [facility] [address] [id number] [address] [place] [id number] Oct, [facility] [address] [id number] [address] [place] [phone] Sep, [facility] [address] [id number] [address] [place] [id number] Sep, [facility] [address] [id number] [address] [place] [phone] Sep, [facility] [address] [id number] [address] [place] [id number] Aug, [facility] [address] [id number] [address] [place] [id number] Oct, [facility] [address] [id number] [address] [place] [id number] Oct, [facility] [address] [id number] [address] [place] [id number] Oct, [facility] [address] [id number] [address] [place] [id number] Oct, IMMUNIZATIONS No Known Immunizations SOCIAL HISTORY Never Assessed REASON FOR VISIT PLAN OF CARE Activity Details Follow Up prn Reason:Recall and/or res torative VITAL SIGNS MEDICATIONS Medication Instructions Dosage Frequency Start Date End Date Duration S tatus Intuniv 2 MG Orally Once a day 1 tablet 24h Not-Taking Toviaz 4 MG Orally Once a day 1 tablet 24h N ot-Taking Abilify 15 mg Orally Once a day 1 tablet 24h Not-Taking Abilify 15 Orally Once a day 1 tablet 24h 30 Ac tive Loratadine 10 MG Orally Once a day 1 tablet 24h Not-Taking Intuniv 2 Orally Once a day 1 tablet 24h 30 Act mariposa Clonidine HCl 0.1 MG Orally twice a day 1 tablet 12h 30 days Active BusPIRone HCl 5 MG Orally in am once a day 1 tablet 24h Not-Taking DDAVP 0.2 TAKE ONE TABLET BY MOUTH DAILY Not-Taking Zyprexa Zydis 5 MG Orally as needed Once a day 1 tablet on the tongue and allow to dissolve 24h Not-Taking BusPIRone HCl 5 Orally in am once a day 1 tablet 24h 30 Active Trazodone HCl 100 mg Orally Once a day 1 tablet 24h 30 days Active Xanax 0.25 MG Orally once daily 1 tablet 24h Sep, 30 days Active Zoloft 100 mg Orally Once a day 1 tablet 24h 30 days Active RESULTS No Results PROCEDURES Procedure Date Ordered Result Body Site INTRAORL-PERIAPICAL 1 FILM [id number] February 15, 2018 INTRAORL-PERIAPICAL 1 FILM [id number] February 15, 2018 RESIN COMPOS - 2 SURFACES POSTERIOR February 15, 2018 SEALANT - PER TOOTH February 15, 2018 INSTRUCTIONS MEDICATIONS ADMINISTERED No Known Medications MEDICAL (GENERAL) HISTORY Type Description Date Medical History Guardian requests that we do not explain any treatment to patient!
--- OUTSIDE RECORDS SUMMARY | 2020-04-25 15:02 | XMS REPORT ---
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 Active 01480671 Problem Attention deficit hyperactivity disorder (ADHD), combi dylon type F90.2 Active 730888480 Problem Bipolar disorder, unspecified 296.80 Active [id number] ALLERGIES No Information ENCOUNTERS Encounter Location Date Diagnosis [facility] [address] [facility] [id number] [address] [place] [id number] Jun, [facility] [address] [facility] [id number] [address] [place] [id number] May, [facility] [address] [facility] [id number] [address] [place] [id number] Apr, Bipolar disorder, unspecifie d F31.9 [facility] [address] [facility] [id number] [address] [place] [phone] March, Bipolar disorder, unspecifie d F31.9 ; Attention deficit hyperactivity disorder (ADHD), combined type F90.2 and Posttraumatic stress disorder F43.10 [facility] [address] [facility] [id number] [address] [place] [address] Feb, [facility] [address] [facility] [id number] [address] [place] [phone] Feb, Insect bite (nonvenomous), l eft knee, initial encounter S80.262A and Bitten or stung by nonvenomous insect and other nonvenomous arthropods, initial encounter W57.XXXA [facility] [address] [place] [id number] [address] [place] [phone] Feb, Bipolar disorder, unspecifie d F31.9 [facility] [address] [id number] Feb, Dental examination Z01.20 [facility] [address] [id number] [place] [phone] Feb, Bipolar disorder, unspecifie d F31.9 ; Attention deficit hyperactivity disorder (ADHD), combined type F90.2 and Posttraumatic stress disorder F43.10 [facility] [address] [id number] Feb, Dental examination Z01.20 [facility] [address] [id number] Jan, Bipolar disorder, unspecifie d F31.9 [facility] [address] [id number] Jan, Attention deficit hyperactiv ity disorder (ADHD), combined type F90.2 [facility] [address] [address] Dec, Posttraumatic stress disorde r F43.10 [facility] [address] [place] [place] [id number] [address] [place] [id number] Dec, Posttraumatic stress disorde r F43.10 [facility] [address] [place] [id number] [place] [id number] Nov, Dental examination Z01.20 [facility] [id number] [place] [address] [id number] Nov, Encounter for dental exam an d cleaning w/o abnormal findings Z01.20 [facility] [address] [id number] [address] [place] [id number] 03 Nov, 2017 Dental examination Z01.20 [facility] [address] [facility] [id number] [address] [place] [id number] 08 Sep, 2017 Bipolar disorder, unspecifie d F31.9 ; Posttraumatic stress disorder F43.10 and Attention deficit hyperactivity disorder (ADHD), combined type F90.2 [facility] [address] [facility] [id number] [address] [place] [id number] 09 Aug, 2017 Posttraumatic stress disorde r F43.10 [facility] [address] [facility] [id number] [address] [place] [id number] 15 Jul, 2017 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 [facility] [address] [facility] [id number] [address] [place] [id number] 11 Jul, 2017 Bipolar disorder, unspecifie d F31.9 ; Attention deficit hyperactivity disorder (ADHD), combined type F90.2 and Posttraumatic stress disorder F43.10 [facility] [address] [facility] [id number] [address] [place] [id number] Jun, Bipolar disorder, unspecifie d F31.9 ; Posttraumatic stress disorder F43.10 ; Attention deficit hyperactivity disorder (ADHD), combined type F90.2 and Other mcfp (current) drug therapy Z79.899 [facility] [address] [facility] [id number] [address] [place] [phone] March, Bipolar disorder, unspecifie d F31.9 ; Posttraumatic stress disorder F43.10 and Attention deficit hyperactivity disorder (ADHD), combined type F90.2 [facility] [address] [facility] [id number] [address] [place] [phone] Dec, Bipolar disorder, unspecifie d F31.9 ; Posttraumatic stress disorder F43.10 and Attention deficit hyperactivity disorder (ADHD), combined type F90.2 [facility] [address] [facility] [id number] [address] [place] [phone] Dec, [facility] [address] [id number] [address] [place] [phone] Sep, [facility] [address] [id number] [address] [place] [id number] Aug, Bipolar disorder, unspecifie d F31.9 ; Posttraumatic stress disorder F43.10 and Attention deficit hyperactivity disorder (ADHD), combined type F90.2 [facility] [address] [id number] [address] [place] [phone] Jun, [facility] [address] [id number] [address] [place] [id number] March, [facility] [address] [id number] [address] [place] [phone] Feb, Bipolar disorder, unspecifie d F31.9 ; Attention deficit hyperactivity disorder (ADHD), combined type F90.2 and Posttraumatic stress disorder F43.10 [facility] [address] [facility] [id number] [address] [place] [id number] Feb, [facility] [address] [facility] [id number] [address] [place] [phone] Feb, [facility] [address] [facility] [id number] [address] [place] [id number] Feb, [facility] [address] [facility] [id number] [address] [place] [phone] Jan, [facility] [address] [id number] [address] [place] [address] [id number] Dec, Dental examination Z01.20 [facility] [address] [id number] [address] [place] [phone] Sep, [facility] [address] [facility] [id number] [address] [place] [phone] Sep, Attention deficit hyperactiv ity disorder (ADHD), combined type F90.2 ; Posttraumatic stress disorder F43.10 and Bipolar disorder, unspecified F31.9 [facility] [address] [id number] [address] [place] [phone] Aug, [facility] [address] [id number] [address] [place] [phone] Aug, [facility] [address] [id number] [address] [place] [phone] Jul, [facility] [address] [id number] [address] [place] [phone] May, Bipolar disorder, unspecifie d 296.80 ; 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.00 and Posttraumatic stress disorder 309.81 [facility] [address] [id number] [address] [place] [phone] May, [facility] [address] [id number] [address] [place] [phone] May, [facility] [address] [id number] [address] [place] [phone] May, [facility] [address] [id number] [address] [place] [phone] Apr, [facility] [address] [id number] [address] [place] [phone] Apr, [facility] [address] [id number] [address] [place] [phone] Apr, [facility] [address] [id number] [address] [place] [id number] March, [facility] [address] [id number] [address] [place] [phone] March, [facility] [address] [id number] [address] [place] [phone] March, [facility] [address] [id number] [address] [place] [phone] Feb, [facility] [address] [id number] [address] [place] [phone] Feb, [facility] [place] [facility] [address] [id number] [facility] [address] Jan, [facility] [place] [facility] [address] [id number] [address] [place] [address], [place] [address] Jan, [facility] [place] [facility] [address] [id number] [address] [place] [address], [place] [address] Jan, [facility] [place] [facility] [address] [id number] [address] [place] [address], [place] [address] Jan, [facility] [place] [facility] [address] [id number] [address] [place] [address], [place] [address] Jan, [facility] [place] [facility] [address] [id number] [address] [place] [address], [place] [address] Jan, [facility] [place] [facility] [address] [id number] [address] [place] [address], [place] [address] Jan, [facility] [place] [facility] [address] [id number] [address] [place] [address], [place] [address] Jan, [facility] [place] [facility] [address] [id number] [address] [place] [address], [place] [address] Jan, [facility] [place] [facility] [address] [id number] [address] [place] [address], [place] [address] Jan, [facility] [place] [facility] [address] [id number] [address] [place] [address], [place] [address] Dec, 2014 [facility] [place] [facility] [address] [id number] [address] [place] [address], [place] [address] Dec, [facility] [place] [facility] [address] [id number] [address] [place] [address], [place] [address] Dec, [facility] [place] [facility] [address] [id number] [address] [place] [address], [place] [address] Dec, [facility] [place] [facility] [address] [id number] [address] [place] [address], [place] [address] Oct, [facility] [place] [facility] [address] [id number] [address] [place] [address], [place] [address] 18 Oct, 2014 [facility] [address] [id number] [address] [place] [address], [place] [address] Oct, [facility] [address] [id number] [address] [place] [address], [place] [address] Oct, [facility] [address] [id number] [address] [place] [address], [place] [address] Oct, [facility] [address] [id number] [address] [place] [address], [place] [address] Oct, [facility] [address] [id number] [address] [place] [address], [place] [address] Oct, [facility] [address] [id number] [address] [place] [address], [place] [address] Sep, [facility] [address] [id number] [address] [place] [address], [place] [address] Sep, [facility] [address] [id number] [address] [place] [address], [place] [address] Sep, [facility] [address] [id number] [address] [place] [address], [place] [address] Sep, [facility] [address] [id number] [address] [place] [address], [place] [address] Sep, [facility] [address] [id number] [address] [place] [address], [place] [address] Sep, [facility] [address] [id number] [address] [place] [address], [place] [address] Sep, [facility] [address] [id number] [address] [place] [address], [place] [address] Sep, [facility] [address] [id number] [address] [place] [address], [place] [address] Aug, [facility] [address] [id number] [address] [place] [address], [place] [address] Aug, [facility] [address] [id number] [address] [place] [address], [place] [address] Aug, [facility] [place] [facility] [address] [id number] [address] [place] [address], [place] [address] Aug, [facility] [place] [facility] [address] [id number] [address] [place] [address], [place] [address] Jul, [facility] [place] [facility] [address] [id number] [address] [place] [address], [place] [address] Jul, [facility] [place] [facility] [address] [id number] [address] [place] [address], [place] [address] Jul, [facility] [place] [facility] [address] [id number] [address] [place] [address], [place] [address] Jul, [facility] [place] [facility] [address] [id number] [address] [place] [address], [place] [address] Jun, [facility] [place] [facility] [address] [id number] [address] [place] [address], [place] [address] Jun, [facility] [place] [facility] [address] [id number] [address] [place] [address], [place] [address] Jun, [facility] [place] [facility] [address] [id number] [address] [place] [address], [place] [address] Jun, [facility] [place] [facility] [address] [id number] [address] [place] [address], [place] [address] May, [facility] [place] [facility] [address] [id number] [address] [place] [address], [place] [address] May, [facility] [place] [facility] [address] [id number] [address] [place] [address], [place] [address] May, [facility] [place] [facility] [address] [id number] [address] [place] [address], [place] [address] May, [facility] [place] [facility] [address] [id number] [address] [place] [address], [place] [address] Apr, [facility] [place] [facility] [address] [id number] [address] [place] [address], [place] [address] Apr, [facility] [address] [id number] [facility] [address] Apr, [facility] [place] [facility] [address] [id number] [address] [place] [address], [place] [address] Apr, [facility] [place] [facility] [address] [id number] [address] [place] [address], [place] [address] Apr, [facility] [place] [facility] [address] [id number] [address] [place] [address], [place] [address] Apr, [facility] [address] [id number] [address] [place] [address], [place] [address] Apr, [facility] [address] [id number] [address] [place] [address], [place] [address] Apr, [facility] [address] [id number] [address] [place] [address], [place] [address] Apr, [facility] [address] [id number] [address] [place] [address], [place] [address] Apr, [facility] [address] [id number] [address] [place] [address], [place] [address] Apr, [facility] [address] [id number] [address] [place] [address], [place] [address] Apr, [facility] [place] [facility] [address] [id number] [address] [place] [address], [place] [address] Apr, [facility] [place] [facility] [address] [id number] [address] [place] [address], [place] [address] March, [facility] [place] [facility] [address] [id number] [address] [place] [address], [place] [address] March, [facility] [place] [facility] [address] [id number] [address] [place] [address], [place] [address] March, [facility] [place] [facility] [address] [id number] [address] [place] [address], [place] [address] March, [facility] [place] [facility] [address] [id number] [address] [place] [address], [place] [address] Jan, [facility] [address] [id number] [address] [place] [address], [place] [address] Jan, [facility] [place] [facility] [address] [id number] [address] [place] [address], [place] [address] Jan, [facility] [place] [facility] [address] [id number] [address] [place] [address], [place] [address] Jan, [facility] [place] [facility] [address] [id number] [address] [place] [address], [place] [address] Jan, [facility] [place] [facility] [address] [id number] [address] [place] [address], [place] [address] Jan, [facility] [place] [facility] [address] [id number] [address] [place] [address], [place] [address] Dec, [facility] [place] [facility] [address] [id number] [address] [place] [address], [place] [address] Dec, [facility] [address] [id number] [address] [place] [address], [place] [address] Dec, [facility] [place] [facility] [address] [id number] [address] [place] [address], [place] [address] Dec, [facility] [place] [facility] [address] [id number] [address] [place] [address], [place] [address] Nov, [facility] [place] [facility] [address] [id number] [address] [place] [address], [place] [address] Nov, [facility] [place] [facility] [address] [id number] [address] [place] [address], [place] [address] Nov, [facility] [place] [facility] [address] [id number] [address] [place] [address], [place] [address] Nov, [facility] [place] [facility] [address] [id number] [address] [place] [address], [place] [address] Oct, [facility] [place] [facility] [address] [id number] [address] [place] [address], [place] [address] Oct, [facility] [address] [id number] [address] [place] [address], [place] [address] Oct, [facility] [address] [id number] [address] [place] [address], [place] [address] Oct, [facility] [address] [id number] [address] [place] [address], [place] [address] Oct, [facility] [address] [id number] [address] [place] [address], [place] [address] Oct, [facility] [address] [id number] [address] [place] [address], [place] [address] Oct, [facility] [address] [id number] [address] [place] [address], [place] [address] Oct, [facility] [address] [id number] [address] [place] [address], [place] [address] Sep, [facility] [address] [id number] [address] [place] [address], [place] [address] Sep, [facility] [address] [id number] [address] [place] [address], [place] [address] Jul, [facility] [address] [id number] [address] [place] [address], [place] [address] Jul, [facility] [address] [id number] [address] [place] [address], [place] [address] Jul, [facility] [address] [id number] [address] [place] [address] Jul, [facility] [address] [id number] [address] [place] [address], [place] [address] Jun, [facility] [address] [id number] [address] [place] [address], [place] [address] Jun, [facility] [address] [id number] [address] [place] [address], [place] [address] May, [facility] [address] [id number] [address] [place] [address], [place] [address] Apr, [facility] [address] [id number] [address] [place] [address], [place] [address] Apr, [facility] [address] [id number] [address] [place] [address], [place] [address] Apr, [facility] [address] [id number] [address] [place] [address], [place] [address] March, [facility] [address] [id number] [address] [place] [address], [place] [address] March, [facility] [address] [id number] [address] [place] [address], [place] [address] Feb, [facility] [address] [id number] [address] [place] [address], [place] [address] Jan, [facility] [address] [id number] [address] [place] [address], [place] [address] Jan, [facility] [address] [id number] [address] [place] [address], [place] [address] Dec, [facility] [address] [id number] [address] [place] [address], [place] [address] Dec, [facility] [address] [id number] [address] [place] [address], [place] [address] Nov, [facility] [address] [id number] [address] [place] [address], [place] [address] Nov, [facility] [address] [id number] [address] [place] [address], [place] [address] Nov, [facility] [address] [id number] [address] [place] [address], [place] [address] Oct, [facility] [address] [id number] [address] [place] [address], [place] [address] Oct, [facility] [address] [id number] [address] [place] [address], [place] [address] Oct, [facility] [address] [id number] [address] [place] [address], [place] [address] 05 Oct, 2012 [facility] [address] [id number] [address] [place] [address], [place] [address] Sep, [facility] [address] [id number] [address] [place] [address], [place] [address] Sep, [facility] [address] [id number] [address] [place] [address], [place] [address] Sep, [facility] [address] [id number] [address] [place] [address], [place] [address] Sep, [facility] [address] [id number] [address] [place] [address], [place] [address] Sep, [facility] [address] [id number] [address] [place] [address], [place] [address] Sep, [facility] [address] [id number] [address] [place] [address], [place] [address] Aug, [facility] [address] [id number] [address] [place] [address], [place] [address] 26 Jul, 2012 [facility] [address] [id number] [address] [place] [address], [place] [address] 19 Jul, 2012 [facility] [address] [id number] [address] [place] [address], [place] [address] 18 Jul, 2012 [facility] [address] [id number] [address] [place] [address], [place] [address] 14 Jul, 2012 [facility] [address] [id number] [address] [place] [address], [place] [address] 28 Jun, 2012 [facility] [address] [id number] [address] [place] [address], [place] [address] Jun, [facility] [address] [id number] [address] [place] [address], [place] [address] Jun, [facility] [address] [id number] [address] [place] [address] [place] [address] Jun, [facility] [address] [id number] [address] [place] [address], [place] [address] May, [facility] [address] [id number] [address] [place] [address], [place] [address] Apr, [facility] [address] [id number] [address] [place] [address], [place] [address] March, [facility] [address] [id number] [address] [place] [address], [place] [id number] March, [facility] [address] [id number] [address] [place] [address], [place] [address] March, [facility] [address] [id number] [address] [place] [address], [place] [id number] Feb, [facility] [address] [id number] [address] [place] [address], [place] [address] Feb, [facility] [address] [id number] [address] [place] [address], [place] [address] Jan, [facility] [address] [id number] [address] [place] [address], [place] [address] Jan, [facility] [address] [id number] [address] [place] [address], [place] [id number] Jan, [facility] [address] [id number] [address] [place] [address], [place] [address] Dec, [facility] [address] [id number] [address] [place] [address], [place] [address] Dec, [facility] [address] [id number] [address] [place] [address], [place] [address] Nov, [facility] [address] [id number] [address] [place] [address], [place] [address] Nov, [facility] [address] [id number] [address] [place] [address], [place] [id number] Nov, [facility] [address] [id number] [address] [place] [id number] Nov, [facility] [address] [id number] [address] [place] [id number] Nov, [facility] [address] [id number] [address] [place] [id number] Oct, [facility] [address] [id number] [address] [place] [id number] Oct, [facility] [address] [id number] [address] [place] [id number] Oct, [facility] [address] [id number] [address] [place] [id number] Oct, [facility] [address] [id number] [address] [place] [id number] Sep, [facility] [address] [id number] [address] [place] [id number] Sep, [facility] [address] [id number] [address] [place] [id number] Sep, [facility] [address] [id number] [address] [place] [id number] Aug, [facility] [address] [id number] [address] [place] [id number] Oct, [facility] [address] [id number] [address] [place] [id number] Oct, [facility] [address] [id number] [address] [place] [id number] Oct, [facility] [address] [id number] [address] [place] [id number] Oct, IMMUNIZATIONS No Known Immunizations SOCIAL HISTORY [...]
--- OUTSIDE RECORDS SUMMARY | 2020-04-25 15:02 | XMS REPORT ---
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 Active 46004697 Problem Attention deficit hyperactivity disorder (ADHD), combi dylon type F90.2 Active 099150680 Problem Bipolar disorder, unspecified 296.80 Active 41688254 ALLERGIES No Known Allergies ENCOUNTERS Encounter Location Date Diagnosis [facility] [address] [facility] [id number] [address] [place] [address] Jun, [place] [id number] [place] [address] [id number] Jun, [facility] [address] [facility] [id number] [address] [place] [address] May, [facility] [address] [facility] [id number] [address] [place] [address] Apr, Bipolar disorder, unspecifie d F31.9 [facility] [address] [facility] [id number] [address] [place] [address] March, Bipolar disorder, unspecifie d F31.9 ; Attention deficit hyperactivity disorder (ADHD), combined type F90.2 and Posttraumatic stress disorder F43.10 [facility] [address] [facility] [id number] [address] [place] [address] Feb, [facility] [address] [place] [id number] [address] [place] [address] Feb, Insect bite (nonvenomous), l eft knee, initial encounter S80.262A and Bitten or stung by nonvenomous insect and other nonvenomous arthropods, initial encounter W57.XXXA [facility] [address] [place] [id number] [place] [address] Feb, Bipolar disorder, unspecifie d F31.9 [facility] [address] [place] [id number] [place] [address] [id number] Feb, Dental examination Z01.20 [facility] [address] [address] Feb, Bipolar disorder, unspecifie d F31.9 ; Attention deficit hyperactivity disorder (ADHD), combined type F90.2 and Posttraumatic stress disorder F43.10 [facility] [address] [id number] Feb, Dental examination Z01.20 [facility] [address] [address] Jan, Bipolar disorder, unspecifie d F31.9 [facility] [address] [address] Jan, Attention deficit hyperactiv ity disorder (ADHD), combined type F90.2 [facility] [address] [address] Dec, Posttraumatic stress disorde r F43.10 [facility] [address] [address] Dec, Posttraumatic stress disorde r F43.10 [facility] [address] [place] [id number] [place] [address] [id number] Nov, Dental examination Z01.20 [facility] [address] [id number] Nov, Encounter for dental exam an d cleaning w/o abnormal findings Z01.20 [facility] [address] [id number] [address] [place] [id number] Nov, 2017 Dental examination Z01.20 [facility] [address] [facility] [id number] [address] [place] [address] 08 Sep, 2017 Bipolar disorder, unspecifie d F31.9 ; Posttraumatic stress disorder F43.10 and Attention deficit hyperactivity disorder (ADHD), combined type F90.2 [facility] [address] [facility] [id number] [address] [place] [address] 09 Aug, 2017 Posttraumatic stress disorde r F43.10 [facility] [address] [place] [id number] [address] [place] [address] 15 Jul, 2017 Other long-term (current) dr ug therapy Z79.899 [place] [id number] [place] [address] 11 Jul, 2017 Bipolar disorder, unspecifie d F31.9 ; Attention deficit hyperactivity disorder (ADHD), combined type F90.2 and Posttraumatic stress disorder F43.10 [facility] [address] [place] [id number] [address] [place] [address] 09 Jun, 2017 Bipolar disorder, unspecifie d F31.9 ; Posttraumatic stress disorder F43.10 ; Attention deficit hyperactivity disorder (ADHD), combined type F90.2 and 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 Z79.899 [facility] [address] [facility] [id number] [address] [place] [address] March, Bipolar disorder, unspecifie d F31.9 ; Posttraumatic stress disorder F43.10 and Attention deficit hyperactivity disorder (ADHD), combined type F90.2 [facility] [address] [facility] [id number] [address] [place] [address] 08 Dec, 2016 Bipolar disorder, unspecifie d F31.9 ; Posttraumatic stress disorder F43.10 and Attention deficit hyperactivity disorder (ADHD), combined type F90.2 [facility] [address] [id number] [address] [place] [address] Dec, [facility] [address] [id number] [address] [place] [address] Sep, [facility] [address] [id number] [address] [place] [address] Aug, Bipolar disorder, unspecifie d F31.9 ; Posttraumatic stress disorder F43.10 and Attention deficit hyperactivity disorder (ADHD), combined type F90.2 [facility] [address] [id number] [address] [place] [address] Jun, [facility] [address] [id number] [address] [place] [address] March, [facility] [address] [id number] [address] [place] [address] Feb, Bipolar disorder, unspecifie d F31.9 ; Attention deficit hyperactivity disorder (ADHD), combined type F90.2 and Posttraumatic stress disorder F43.10 [facility] [address] [id number] [address] [place] [address] Feb, [facility] [address] [id number] [address] [place] [address] Feb, [facility] [address] [id number] [address] [place] [address] Feb, [facility] [address] [id number] [address] [place] [address] Jan, [facility] [address] [id number] [address] [place] [address] [id number] Dec, Dental examination Z01.20 [facility] [address] [id number] [address] [place] [address] Sep, [facility] [address] [facility] [id number] [address] [place] [address] Sep, Attention deficit hyperactiv ity disorder (ADHD), combined type F90.2 ; Posttraumatic stress disorder F43.10 and Bipolar disorder, unspecified F31.9 [facility] [address] [facility] [id number] [address] [place] [address] Aug, [facility] [address] [facility] [id number] [address] [place] [address] Aug, [facility] [address] [facility] [id number] [address] [place] [address] Jul, [facility] [address] [facility] [id number] [address] [place] [address] May, Bipolar disorder, unspecifie d 296.80 ; 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.00 and Posttraumatic stress disorder 309.81 [facility] [address] [facility] [id number] [address] [place] [address] May, [facility] [address] [facility] [id number] [address] [place] [address] May, [facility] [address] [facility] [id number] [address] [place] [address] May, [facility] [address] [facility] [id number] [address] [place] [address] Apr, [facility] [address] [facility] [id number] [address] [place] [address] Apr, [facility] [address] [facility] [id number] [address] [place] [address] Apr, [facility] [address] [facility] [id number] [address] [place] [address] March, [facility] [address] [facility] [id number] [address] [place] [address] March, [facility] [address] [facility] [id number] [address] [place] [address] March, [facility] [address] [facility] [id number] [address] [place] [address] 14 Feb, 2015 [facility] [address] [id number] [address] [place] [address], [place] [address] 13 Feb, 2015 [facility] [address] [id number] [address] [place] [address], [place] [address] 30 Jan, 2015 [facility] [address] [id number] [address] [place] [address], [place] [address] Jan, [facility] [address] [id number] [address] [place] [address], [place] [address] Jan, [facility] [address] [id number] [address] [place] [address], [place] [address] Jan, [facility] [address] [id number] [address] [place] [address], [place] [address] Jan, [facility] [address] [id number] [address] [place] [address], [place] [address] Jan, [facility] [address] [id number] [address] [place] [address], [place] [address] Jan, [facility] [address] [id number] [address] [place] [address], [place] [address] Jan, [facility] [address] [id number] [address] [place] [address], [place] [address] Jan, [facility] [address] [id number] [address] [place] [address], [place] [address] Jan, [facility] [address] [id number] [address] [place] [address], [place] [address] Dec, [facility] [address] [id number] [address] [place] [address], [place] [address] Dec, [facility] [address] [id number] [address] [place] [address], [place] [address] Dec, [facility] [address] [id number] [address] [place] [address], [place] [address] Dec, [facility] [address] [id number] [address] [place] [address], [place] [address] Oct, [facility] [address] [id number] [address] [place] [address], [place] [address] Oct, [facility] [address] [id number] [address] [place] [address], [place] [address] Oct, [facility] [address] [id number] [address] [place] [address], [place] [address] Oct, [facility] [address] [id number] [address] [place] [address], [place] [address] Oct, [facility] [address] [id number] [address] [place] [address], [place] [address] Oct, [facility] [address] [id number] [address] [place] [address], [place] [address] Oct, [facility] [address] [id number] [address] [place] [address], [place] [address] Sep, [facility] [address] [id number] [address] [place] [address], [place] [address] Sep, [facility] [address] [id number] [address] [place] [address], [place] [address] Sep, [facility] [address] [id number] [address] [place] [address], [place] [address] Sep, [facility] [address] [id number] [address] [place] [address], [place] [address] Sep, [facility] [address] [id number] [address] [place] [address], [place] [address] Sep, [facility] [address] [id number] [address] [place] [address], [place] [address] Sep, [facility] [address] [id number] [address] [place] [address], [place] [address] Sep, [facility] [address] [id number] [address] [place] [address], [place] [address] Aug, [facility] [address] [id number] [address] [place] [address], [place] [address] Aug, [facility] [address] [id number] [address] [place] [address], [place] [address] Aug, [facility] [address] [id number] [address] [place] [address], [place] [address] Aug, [facility] [address] [id number] [address] [place] [address], [place] [address] Jul, [facility] [address] [id number] [address] [place] [address], [place] [address] Jul, [facility] [address] [id number] [address] [place] [address], [place] [address] Jul, [facility] [address] [id number] [address] [place] [address], [place] [address] Jul, [facility] [address] [id number] [address] [place] [address], [place] [address] Jun, [facility] [address] [id number] [address] [place] [address], [place] [address] Jun, [facility] [address] [id number] [address] [place] [address], [place] [address] Jun, [facility] [address] [id number] [address] [place] [address], [place] [address] Jun, [facility] [address] [id number] [address] [place] [address], [place] [address] May, [facility] [address] [id number] [address] [place] [address], [place] [address] May, [facility] [address] [id number] [address] [place] [address], [place] [address] May, [facility] [address] [id number] [address] [place] [address], [place] [address] May, [facility] [address] [id number] [address] [place] [address], [place] [address] Apr, [facility] [address] [id number] [facility] [place] [address] Apr, [facility] [address] [id number] [address] [place] [address], [place] [address] Apr, [facility] [address] [id number] [address] [place] [address], [place] [address] Apr, [facility] [address] [id number] [address] [place] [address], [place] [address] Apr, [facility] [address] [id number] [address] [place] [address], [place] [address] Apr, [facility] [address] [id number] [address] [place] [address], [place] [address] Apr, [facility] [address] [id number] [address] [place] [address], [place] [address] Apr, [facility] [address] [id number] [address] [place] [address], [place] [address] Apr, [facility] [address] [id number] [address] [place] [address], [place] [address] Apr, [facility] [address] [id number] [address] [place] [address], [place] [address] Apr, [facility] [address] [id number] [address] [place] [address], [place] [address] Apr, [facility] [address] [id number] [address] [place] [address], [place] [address] Apr, [facility] [address] [id number] [address] [place] [address], [place] [address] March, [facility] [address] [id number] [address] [place] [address], [place] [address] March, [facility] [address] [id number] [address] [place] [address], [place] [address] March, [facility] [address] [id number] [address] [place] [address], [place] [address] March, [facility] [address] [id number] [address] [place] [address], [place] [address] Jan, [facility] [address] [id number] [address] [place] [address], [place] [address] Jan, [facility] [address] [id number] [address] [place] [address], [place] [address] Jan, [facility] [address] [id number] [address] [place] [address], [place] [address] Jan, [facility] [address] [id number] [address] [place] [address], [place] [address] Jan, [facility] [address] [id number] [address] [place] [address], [place] [address] Jan, [facility] [address] [id number] [address] [place] [address], [place] [address] Dec, [facility] [address] [id number] [address] [place] [address], [place] [address] Dec, [facility] [address] [id number] [address] [place] [address], [place] [address] Dec, [facility] [address] [id number] [address] [place] [address], [place] [address] Dec, [facility] [address] [id number] [address] [place] [address], [place] [address] Nov, [facility] [address] [id number] [address] [place] [address], [place] [address] Nov, [facility] [address] [id number] [address] [place] [address], [place] [address] Nov, [facility] [address] [id number] [address] [place] [address], [place] [address] Nov, [facility] [address] [id number] [address] [place] [address], [place] [address] Oct, [facility] [address] [id number] [address] [place] [address], [place] [address] Oct, [facility] [address] [id number] [address] [place] [address], [place] [address] Oct, [facility] [address] [id number] [address] [place] [address], [place] [address] Oct, [facility] [address] [id number] [address] [place] [address], [place] [address] Oct, [facility] [address] [id number] [address] [place] [address], [place] [address] Oct, [facility] [address] [id number] [address] [place] [address], [place] [address] Oct, [facility] [address] [id number] [address] [place] [address], [place] [address] Oct, [facility] [address] [id number] [address] [place] [address], [place] [address] Sep, [facility] [address] [id number] [address] [place] [address], [place] [address] Sep, [facility] [address] [id number] [address] [place] [address], [place] [address] Jul, [facility] [address] [id number] [address] [place] [address], [place] [address] Jul, [facility] [address] [id number] [address] [place] [address] Jul, [facility] [address] [id number] [address] [place] [address], [place] [address] Jul, [facility] [address] [id number] [address] [place] [address], [place] [address] Jun, [facility] [address] [id number] [address] [place] [address] Jun, [facility] [address] [id number] [address] [place] [address], [place] [address] 08 May, 2013 [facility] [address] [id number] [address] [place] [address], [place] [address] Apr, [facility] [address] [id number] [address] [place] [address], [place] [address] Apr, [facility] [address] [id number] [address] [place] [address], [place] [address] Apr, [facility] [address] [id number] [address] [place] [address], [place] [address] March, [facility] [address] [id number] [address] [place] [address], [place] [address] March, [facility] [address] [id number] [address] [place] [address], [place] [address] Feb, [facility] [address] [id number] [address] [place] [address], [place] [address] Jan, [facility] [address] [id number] [address] [place] [address], [place] [address] Jan, [facility] [address] [id number] [address] [place] [address], [place] [address] Dec, [facility] [address] [id number] [address] [place] [address], [place] [address] Dec, [facility] [address] [id number] [address] [place] [address], [place] [address] Nov, [facility] [address] [id number] [address] [place] [address], [place] [address] Nov, [facility] [address] [id number] [address] [place] [address], [place] [address] Nov, [facility] [address] [id number] [address] [place] [address], [place] [address] Oct, [facility] [address] [id number] [address] [place] [address], [place] [address] Oct, [facility] [address] [id number] [address] [place] [address], [place] [address] 05 Oct, 2012 [facility] [address] [id number] [address] [place] [address], [place] [address] Oct, [facility] [address] [id number] [address] [place] [address], [place] [address] Sep, [facility] [address] [id number] [address] [place] [address], [place] [address] Sep, [facility] [address] [id number] [address] [place] [address], [place] [address] Sep, [facility] [address] [id number] [address] [place] [address], [place] [address] Sep, [facility] [address] [id number] [address] [place] [address], [place] [address] Sep, [facility] [address] [id number] [address] [place] [address], [place] [address] 15 Sep, 2012 [facility] [address] [id number] [address] [place] [address], [place] [address] 02 Aug, 2012 [facility] [address] [id number] [address] [place] [address], [place] [address] 26 Jul, 2012 [facility] [address] [id number] [address] [place] [address], [place] [address] 19 Jul, 2012 [facility] [address] [id number] [address] [place] [address], [place] [address] 18 Jul, 2012 [facility] [address] [id number] [address] [place] [address], [place] [address] 14 Jul, 2012 [facility] [address] [id number] [address] [place] [address], [place] [address] 28 Jun, 2012 [facility] [address] [id number] [address] [place] [address], [place] [address] 20 Jun, 2012 [facility] [address] [id number] [address] [place] [address] [place] [address] Jun, [facility] [address] [id number] [address] [place] [address], [place] [address] Jun, [facility] [address] [id number] [address] [place] [address], [place] [address] May, [facility] [address] [id number] [address] [place] [address], [place] [address] Apr, [facility] [address] [id number] [address] [place] [address], [place] [address] March, [facility] [address] [id number] [address] [place] [address], [place] [address] March, [facility] [address] [id number] [address] [place] [address], [place] [address] March, [facility] [address] [id number] [address] [place] [address], [place] [address] Feb, [facility] [address] [id number] [address] [place] [address], [place] [address] Feb, [facility] [address] [id number] [address] [place] [address], [place] [address] Jan, [facility] [address] [id number] [address] [place] [address], [place] [address] Jan, [facility] [address] [id number] [address] [place] [address], [place] [id number] Jan, [facility] [address] [id number] [address] [place] [address], [place] [phone] Dec, [facility] [address] [id number] [address] [place] [address], [place] [phone] Dec, [facility] [address] [id number] [address] [place] [address], [place] [phone] Nov, [facility] [address] [id number] [address] [place] [address], [place] [phone] Nov, [facility] [address] [id number] [address] [place] [phone] Nov, [facility] [address] [id number] [address] [place] [phone] Nov, [facility] [address] [id number] [address] [place] [address], [place] [phone] Nov, [facility] [address] [id number] [address] [place] [phone] Oct, [facility] [address] [id number] [address] [place] [address], [place] [phone] Oct, [facility] [address] [id number] [address] [place] [address], [place] [id number] Oct, [facility] [address] [id number] [address] [place] [address], [place] [phone] Oct, [facility] [address] [id number] [address] [place] [phone] Sep, [facility] [address] [id number] [address] [place] [address], [place] [phone] Sep, [facility] [address] [id number] [address] [place] [phone] Sep, [facility] [address] [id number] [address] [place] [phone] Aug, [facility] [address] [id number] [address] [place] [phone] Oct, [facility] [address] [id number] [address] [place] [phone] Oct, [facility] [address] [id number] [address] [place] [phone] Oct, [facility] [address] [id number] [address] [place] [phone] Oct, IMMUNIZATIONS No Known Immunizations SOCIAL HISTORY Never Assessed REASON FOR VISIT RENU Shelby MA PLAN OF CARE Activity Details Follow Up 4 Weeks Reason: f/u VITAL SIGNS Height 68.5 in 2018-02-15 Weight 224.5 lbs 2018-02-15 Temperature 97.7 degrees Fahrenheit 2018-02-15 Heart Rate 80 bpm 2018-02-15 Respiratory Rate 18 2018-02-15 BMI 33.63 kg/m2 2018-02-15 Blood pressure systolic 114 mmHg 2018-02-15 Blood pressure diastolic 78 mmHg 2018-02-15 MEDICATIONS Medication Instructions Dosage Frequency Start Date End Date Duration S tatus Xanax 0.25 MG Orally once daily 1 tablet 24h Sep, Active Intuniv 2 mg Orally Once a day 1 tablet 24h Active Abilify 20 mg Orally Once a day 1 tablet 24h Feb, 30 day(s) Active Loratadine 10 MG Orally Once a day 1 tablet 24h Not-Taking Zyprexa Zydis 5 MG Orally as needed Once a day 1 tablet on the tongue and allow to dissolve 24h Active DDAVP 0.2 mg TAKE ONE TABLET BY MOUTH DAILY Active Zoloft 100 mg Orally Once a day 1 tablet 24h Active Clonidine HCl 0.1 MG Orally twice a day 1 tablet 12h Active BusPIRone HCl 5 mg Orally in am once a day 1 tablet 24h Active Trazodone HCl 100 mg Orally Once a day 1 tablet 24h Active Toviaz 4 MG Orally Once a day 1 tablet 24h N ot-Taking RESULTS No Results PROCEDURES No Known procedures INSTRUCTIONS MEDICATIONS ADMINISTERED No Known Medications MEDICAL (GENERAL) HISTORY Type Description Date Medical History Guardian requests that we do not explain any treatment to patient!
--- OUTSIDE RECORDS SUMMARY | 2020-04-25 15:02 | XMS REPORT ---
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 Active 98311715 Problem Attention deficit hyperactivity disorder (ADHD), combi dylon type F90.2 Active 983113557 Problem Bipolar disorder, unspecified 296.80 Active [id number] ALLERGIES No Information ENCOUNTERS Encounter Location Date Diagnosis [facility] [id number] [place] [address] Jun, [facility] [address] [id number] [address] [place] [address] Apr, Bipolar disorder, unspecifie d F31.9 [facility] [address] [id number] [address] [place] [address] March, Bipolar disorder, unspecifie d F31.9 ; Attention deficit hyperactivity disorder (ADHD), combined type F90.2 and Posttraumatic stress disorder F43.10 [facility] [id number] [address] [place] [address] Feb, [facility] [address] [facility] [id number] [address] [place] [address] Feb, Insect bite (nonvenomous), l eft knee, initial encounter S80.262A and Bitten or stung by nonvenomous insect and other nonvenomous arthropods, initial encounter W57.XXXA [facility] [id number] [place], [place] [id number] Feb, Bipolar disorder, unspecifie d F31.9 [facility] [address] [facility] [id number] [place] [address] [id number] Feb, Dental examination Z01.20 [facility] [id number] [place] [address] Feb, Bipolar disorder, unspecifie d F31.9 ; Attention deficit hyperactivity disorder (ADHD), combined type F90.2 and Posttraumatic stress disorder F43.10 [facility] [id number] [place] [address] [id number] Feb, Dental examination Z01.20 [facility] [address] [address] Jan, Bipolar disorder, unspecifie d F31.9 [facility] [id number] [place] [address] Jan, Attention deficit hyperactiv ity disorder (ADHD), combined type F90.2 [facility] [id number] [place] [address] Dec, Posttraumatic stress disorde r F43.10 [facility] [id number] [place] [address] Dec, Posttraumatic stress disorde r F43.10 [facility] [address] [facility] [id number] [address] [place] [address] [id number] Nov, Dental examination Z01.20 [facility] [address] [facility] [id number] [place] [address] [id number] Nov, Encounter for dental exam an d cleaning w/o abnormal findings Z01.20 [facility] [address] [id number] [place] [address] [id number] Nov, Dental examination Z01.20 [facility] [address] [facility] [id number] [address] [place] [address] Sep, Bipolar disorder, unspecifie d F31.9 ; Posttraumatic stress disorder F43.10 and Attention deficit hyperactivity disorder (ADHD), combined type F90.2 [facility] [address] [facility] [id number] [address] [place] [address] Aug, Posttraumatic stress disorde r F43.10 [facility] [address] [facility] [id number] [address] [place] [id number] 15 Jul, 2017 Other penitentiary (current) dr ug therapy Z79.899 [facility] [address] [facility] [id number] [address] [place] [id number] 11 Jul, 2017 Bipolar disorder, unspecifie d F31.9 ; Attention deficit hyperactivity disorder (ADHD), combined type F90.2 and Posttraumatic stress disorder F43.10 [address] [facility] [id number] [address] [place] [address] Jun, Bipolar disorder, unspecifie d F31.9 ; Posttraumatic stress disorder F43.10 ; Attention deficit hyperactivity disorder (ADHD), combined type F90.2 and Other penitentiary (current) drug therapy Z79.899 [facility] [address] [facility] [id number] [address] [place] [address] March, Bipolar disorder, unspecifie d F31.9 ; Posttraumatic stress disorder F43.10 and Attention deficit hyperactivity disorder (ADHD), combined type F90.2 [facility] [address] [facility] [id number] [address] [place] [address] Dec, Bipolar disorder, unspecifie d F31.9 ; Posttraumatic stress disorder F43.10 and Attention deficit hyperactivity disorder (ADHD), combined type F90.2 [facility] [address] [facility] [id number] [address] [place] [address] Dec, [facility] [address] [facility] [id number] [address] [place] [address] Sep, [facility] [address] [id number] [address] [place] [address] Aug, Bipolar disorder, unspecifie d F31.9 ; Posttraumatic stress disorder F43.10 and Attention deficit hyperactivity disorder (ADHD), combined type F90.2 [facility] [address] [id number] [address] [place] [address] Jun, [facility] [address] [id number] [address] [place] [address] March, [facility] [address] [id number] [address] [place] [address] Feb, Bipolar disorder, unspecifie d F31.9 ; Attention deficit hyperactivity disorder (ADHD), combined type F90.2 and Posttraumatic stress disorder F43.10 [facility] [address] [id number] [address] [place] [address] Feb, [facility] [address] [facility] [id number] [address] [place] [address] Feb, [facility] [address] [id number] [address] [place] [address] Feb, [facility] [address] [facility] [id number] [address] [place] [address] Jan, [facility] [address] [id number] [address] [place] [address] [id number] Dec, Dental examination Z01.20 [facility] [address] [id number] [address] [place] [address] Sep, [facility] [address] [facility] [id number] [address] [place] [address] Sep, Attention deficit hyperactiv ity disorder (ADHD), combined type F90.2 ; Posttraumatic stress disorder F43.10 and Bipolar disorder, unspecified F31.9 [facility] [address] [facility] [id number] [address] [place] [address] Aug, [facility] [address] [id number] [address] [place] [address] Aug, [facility] [address] [id number] [address] [place] [address] Jul, [facility] [address] [id number] [address] [place] [address] May, Bipolar disorder, unspecifie d 296.80 ; 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.00 and Posttraumatic stress disorder 309.81 [facility] [address] [id number] [address] [place] [address] May, [facility] [address] [id number] [address] [place] [address] May, [facility] [address] [id number] [address] [place] [address] May, [facility] [address] [id number] [address] [place] [address] Apr, [facility] [address] [id number] [address] [place] [address] Apr, [facility] [address] [id number] [address] [place] [address] Apr, [facility] [address] [id number] [address] [place] [address] March, [facility] [address] [id number] [address] [place] [address] March, [facility] [address] [id number] [address] [place] [address] March, [facility] [address] [id number] [address] [place] [address] Feb, [facility] [address] [id number] [address] [place] [address] Feb, [facility] [address] [id number] [address] [place] [address] Jan, [facility] [address] [id number] [address] [place] [address], [place] [address] Jan, [facility] [address] [id number] [address] [place] [address], [place] [address] Jan, [facility] [address] [id number] [address] [place] [address], [place] [address] Jan, [facility] [address] [id number] [address] [place] [address], [place] [address] Jan, [facility] [address] [id number] [address] [place] [address], [place] [address] Jan, [facility] [address] [id number] [address] [place] [address], [place] [address] Jan, [facility] [address] [id number] [address] [place] [address], [place] [address] Jan, [facility] [address] [id number] [address] [place] [address], [place] [address] Jan, [facility] [address] [id number] [address] [place] [address], [place] [address] Jan, [facility] [address] [id number] [address] [place] [address], [place] [address] Dec, 2014 [facility] [address] [id number] [address] [place] [address], [place] [address] Dec, 2014 [facility] [address] [id number] [address] [place] [address], [place] [address] Dec, 2014 [facility] [address] [id number] [address] [place] [address], [place] [address] Dec, [facility] [address] [id number] [address] [place] [address], [place] [address] Oct, [facility] [address] [id number] [address] [place] [address], [place] [address] Oct, [facility] [address] [id number] [address] [place] [address], [place] [address] 18 Oct, 2014 [facility] [address] [id number] [address] [place] [address], [place] [address] Oct, [facility] [address] [id number] [address] [place] [address], [place] [address] Oct, [facility] [address] [id number] [address] [place] [address], [place] [address] Oct, [facility] [address] [id number] [address] [place] [address], [place] [address] Oct, [facility] [address] [id number] [address] [place] [address], [place] [address] Sep, [facility] [address] [id number] [address] [place] [address], [place] [address] Sep, [facility] [address] [id number] [address] [place] [address], [place] [address] Sep, [facility] [address] [id number] [address] [place] [address], [place] [address] Sep, [facility] [address] [id number] [address] [place] [address], [place] [address] Sep, [facility] [address] [id number] [address] [place] [address], [place] [address] Sep, [facility] [address] [id number] [address] [place] [address], [place] [address] Sep, [facility] [address] [id number] [address] [place] [address], [place] [address] Sep, [facility] [address] [id number] [address] [place] [address], [place] [address] Aug, [facility] [address] [id number] [address] [place] [address], [place] [address] Aug, [facility] [address] [id number] [address] [place] [address], [place] [address] Aug, [facility] [address] [id number] [address] [place] [address], [place] [address] Aug, [facility] [address] [id number] [address] [place] [address], [place] [address] Jul, [facility] [address] [id number] [address] [place] [address], [place] [address] Jul, [facility] [address] [id number] [address] [place] [address], [place] [address] Jul, [facility] [address] [id number] [address] [place] [address], [place] [address] Jul, [facility] [address] [id number] [address] [place] [address], [place] [address] Jun, [facility] [address] [id number] [address] [place] [address], [place] [address] Jun, [facility] [address] [id number] [address] [place] [address], [place] [address] Jun, [facility] [address] [id number] [address] [place] [address], [place] [address] Jun, [facility] [address] [id number] [address] [place] [address], [place] [address] May, [facility] [address] [id number] [address] [place] [address], [place] [address] May, [facility] [address] [id number] [address] [place] [address], [place] [address] May, [facility] [address] [id number] [address] [place] [address], [place] [address] May, [facility] [address] [id number] [address] [place] [address], [place] [address] Apr, [facility] [address] [id number] [address] [place] [address], [place] [address] Apr, [facility] [address] [id number] [address] [place] [address], [place] [address] Apr, [facility] [address] [id number] [facility] [place] [address] Apr, [facility] [address] [id number] [address] [place] [address], [place] [address] Apr, [facility] [address] [id number] [address] [place] [address], [place] [address] Apr, [facility] [address] [id number] [address] [place] [address], [place] [address] Apr, [facility] [address] [id number] [address] [place] [address], [place] [address] Apr, [facility] [address] [id number] [address] [place] [address], [place] [address] Apr, [facility] [address] [id number] [address] [place] [address], [place] [address] Apr, [facility] [address] [id number] [address] [place] [address], [place] [address] Apr, [facility] [address] [id number] [address] [place] [address], [place] [address] Apr, [facility] [address] [id number] [address] [place] [address], [place] [address] Apr, [facility] [address] [id number] [address] [place] [address], [place] [address] March, [facility] [address] [id number] [address] [place] [address], [place] [address] March, [facility] [address] [id number] [address] [place] [address], [place] [address] March, [facility] [address] [id number] [address] [place] [address], [place] [address] March, [facility] [address] [id number] [address] [place] [address], [place] [address] Jan, [facility] [address] [id number] [address] [place] [address], [place] [address] Jan, [facility] [address] [id number] [address] [place] [address], [place] [address] Jan, [facility] [address] [id number] [address] [place] [address], [place] [address] Jan, [facility] [address] [id number] [address] [place] [address], [place] [address] Jan, [facility] [address] [id number] [address] [place] [address], [place] [address] Jan, [facility] [address] [id number] [address] [place] [address], [place] [address] Dec, [facility] [address] [id number] [address] [place] [address], [place] [address] Dec, [facility] [address] [id number] [address] [place] [address], [place] [address] Dec, [facility] [address] [id number] [address] [place] [address], [place] [address] Dec, [facility] [address] [id number] [address] [place] [address], [place] [address] Nov, [facility] [address] [id number] [address] [place] [address], [place] [address] Nov, [facility] [address] [id number] [address] [place] [address], [place] [address] Nov, [facility] [address] [id number] [address] [place] [address], [place] [address] Nov, [facility] [address] [id number] [address] [place] [address], [place] [address] Oct, [facility] [address] [id number] [address] [place] [address], [place] [address] Oct, [facility] [address] [id number] [address] [place] [address], [place] [address] Oct, [facility] [address] [id number] [address] [place] [address], [place] [address] Oct, [facility] [address] [id number] [address] [place] [address], [place] [address] Oct, [facility] [address] [id number] [address] [place] [address], [place] [address] Oct, [facility] [address] [id number] [address] [place] [address], [place] [address] Oct, [facility] [address] [id number] [address] [place] [address], [place] [address] Oct, [facility] [address] [id number] [address] [place] [address], [place] [address] Sep, [facility] [address] [id number] [address] [place] [address], [place] [address] Sep, [facility] [address] [id number] [address] [place] [address], [place] [address] Jul, [facility] [address] [id number] [address] [place] [address], [place] [address] Jul, [facility] [address] [id number] [address] [place] [address], [place] [address] Jul, [facility] [address] [id number] [address] [place] [address], [place] [address] Jul, [facility] [address] [id number] [address] [place] [address], [place] [address] Jun, [facility] [address] [id number] [address] [place] [address], [place] [address] Jun, [facility] [address] [id number] [address] [place] [address], [place] [address] May, [facility] [address] [id number] [address] [place] [address], [place] [address] Apr, [facility] [address] [id number] [address] [place] [address], [place] [address] 14 Apr, 2013 [facility] [address] [id number] [address] [place] [address], [place] [address] Apr, [facility] [address] [id number] [address] [place] [address], [place] [address] March, [facility] [address] [id number] [address] [place] [address], [place] [address] March, [facility] [address] [id number] [address] [place] [address], [place] [address] Feb, [facility] [address] [id number] [address] [place] [address], [place] [address] Jan, [facility] [address] [id number] [address] [place] [address], [place] [address] Jan, [facility] [address] [id number] [address] [place] [address], [place] [address] Dec, [facility] [address] [id number] [address] [place] [address], [place] [address] Dec, [facility] [address] [id number] [address] [place] [address], [place] [address] Nov, [facility] [address] [id number] [address] [place] [address], [place] [address] Nov, [facility] [address] [id number] [address] [place] [address], [place] [address] Nov, [facility] [address] [id number] [address] [place] [address], [place] [address] Oct, [facility] [address] [id number] [address] [place] [address], [place] [address] Oct, [facility] [address] [id number] [address] [place] [address], [place] [address] Oct, [facility] [address] [id number] [address] [place] [address], [place] [address] Oct, [facility] [address] [id number] [address] [place] [address], [place] [address] Sep, [facility] [address] [id number] [address] [place] [address], [place] [address] Sep, [facility] [address] [id number] [address] [place] [address], [place] [address] Sep, [facility] [address] [id number] [address] [place] [address], [place] [address] Sep, [facility] [address] [id number] [address] [place] [address], [place] [address] Sep, [facility] [address] [id number] [address] [place] [address], [place] [address] Sep, [facility] [address] [id number] [address] [place] [address], [place] [address] Aug, [facility] [address] [id number] [address] [place] [address], [place] [address] 26 Jul, 2012 [facility] [address] [id number] [address] [place] [address], [place] [address] 19 Jul, 2012 [facility] [address] [id number] [address] [place] [address], [place] [address] 18 Jul, 2012 [facility] [address] [id number] [address] [place] [address], [place] [address] 14 Jul, 2012 [facility] [address] [id number] [address] [place] [address], [place] [address] 28 Jun, 2012 [facility] [address] [id number] [address] [place] [address], [place] [address] Jun, [facility] [address] [id number] [address] [place] [address], [place] [address] Jun, [facility] [address] [id number] [address] [place] [address], [place] [address] Jun, [facility] [address] [id number] [address] [place] [address] [place] [address] May, [facility] [address] [id number] [address] [place] [address], [place] [address] Apr, [facility] [address] [id number] [address] [place] [address], [place] [address] March, [facility] [address] [id number] [address] [place] [address], [place] [address] March, [facility] [address] [id number] [address] [place] [address], [place] [address] March, [facility] [address] [id number] [address] [place] [address], [place] [address] Feb, [facility] [address] [id number] [address] [place] [address], [place] [address] Feb, [facility] [address] [id number] [address] [place] [address], [place] [address] Jan, [facility] [address] [id number] [address] [place] [address], [place] [address] Jan, [facility] [address] [id number] [address] [place] [address], [place] [address] Jan, [facility] [address] [id number] [address] [place] [address], [place] [address] Dec, [facility] [address] [id number] [address] [place] [address], [place] [address] Dec, [facility] [address] [id number] [address] [place] [address], [place] [address] Nov, [facility] [address] [id number] [address] [place] [address], [place] [address] Nov, [facility] [address] [id number] [address] [place] [address], [place] [address] Nov, [facility] [address] [id number] [address] [place] [address], [place] [address] Nov, [facility] [address] [id number] [address] [place] [address] Nov, [facility] [address] [id number] [address] [place] [id number] Oct, [facility] [address] [id number] [address] [place] [id number] Oct, [facility] [address] [id number] [address] [place] [id number] Oct, [facility] [address] [id number] [address] [place] [id number] Oct, [facility] [address] [id number] [address] [place] [id number] Sep, [facility] [address] [id number] [address] [place] [id number] Sep, [facility] [address] [id number] [address] [place] [id number] Sep, [facility] [address] [id number] [address] [place] [id number] Aug, [facility] [address] [id number] [address] [place] [id number] Oct, [facility] [address] [id number] [address] [place] [id number] Oct, [facility] [address] [id number] [address] [place] [id number] Oct, [facility] [address] [id number] [address] [place] [id number] Oct, IMMUNIZATIONS No Known Immunizations SOCIAL HISTORY [...]
--- OUTSIDE RECORDS SUMMARY | 2020-04-25 15:02 | XMS REPORT ---
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 Active 57631596 Problem Attention deficit hyperactivity disorder (ADHD), combi dylon type F90.2 Active 783615439 Problem Bipolar disorder, unspecified 296.80 Active [id number] ALLERGIES No Information ENCOUNTERS Encounter Location Date Diagnosis [facility] [place] [address] [facility] [id number] [address] [place] [phone] Jun, [facility] [place] [address] [facility] [id number] [address] [place] [phone] May, [facility] [place] [address] [facility] [id number] [address] [place] [phone] Apr, Bipolar disorder, unspecifie d F31.9 [facility] [place] [address] [facility] [id number] [address] [place] [phone] March, Bipolar disorder, unspecifie d F31.9 ; Attention deficit hyperactivity disorder (ADHD), combined type F90.2 and Posttraumatic stress disorder F43.10 [facility] [place] [address] [facility] [id number] [address] [place] [phone] Feb, [facility] [address] [facility] [id number] [address] [place] [phone] Feb, Insect bite (nonvenomous), l eft knee, initial encounter S80.262A and Bitten or stung by nonvenomous insect and other nonvenomous arthropods, initial encounter W57.XXXA [facility] [place] [address] [place] [id number] [address] [place] [phone] Feb, Bipolar disorder, unspecifie d F31.9 [facility] [address] [id number] Feb, Dental examination Z01.20 [facility] [place] [address] [place] [id number] [place] [phone] Feb, Bipolar disorder, unspecifie d F31.9 ; Attention deficit hyperactivity disorder (ADHD), combined type F90.2 and Posttraumatic stress disorder F43.10 [facility] [address] [id number] Feb, Dental examination Z01.20 [facility] [place] [address] [address] Jan, Bipolar disorder, unspecifie d F31.9 [facility] [place] [address] [address] Jan, Attention deficit hyperactiv ity disorder (ADHD), combined type F90.2 [facility] [place] [address] [address] Dec, Posttraumatic stress disorde r F43.10 [facility] [place] [address] [id number] [address] [place] [phone] Dec, Posttraumatic stress disorde r F43.10 [facility] [address] [place] [address] [id number] [place] [id number] Nov, Dental examination Z01.20 [facility] [id number] [place] [id number] Nov, Encounter for dental exam an d cleaning w/o abnormal findings Z01.20 [facility] [address] [id number] [address] [place] [address] [id number] 03 Nov, 2017 Dental examination Z01.20 [facility] [place] [address] [facility] [id number] [address] [place] [phone] 08 Sep, 2017 Bipolar disorder, unspecifie d F31.9 ; Posttraumatic stress disorder F43.10 and Attention deficit hyperactivity disorder (ADHD), combined type F90.2 [facility] [place] [address] [facility] [id number] [address] [place] [phone] 09 Aug, 2017 Posttraumatic stress disorde r F43.10 [facility] [place] [address] [facility] [id number] [address] [place] [id number] 15 Jul, 2017 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.899 [facility] [place] [address] [facility] [id number] [address] [place] [phone] 11 Jul, 2017 Bipolar disorder, unspecifie d F31.9 ; Attention deficit hyperactivity disorder (ADHD), combined type F90.2 and Posttraumatic stress disorder F43.10 [facility] [place] [address] [facility] [id number] [address] [place] [phone] Jun, Bipolar disorder, unspecifie d F31.9 ; Posttraumatic stress disorder F43.10 ; Attention deficit hyperactivity disorder (ADHD), combined type F90.2 and Other snf (current) drug therapy Z79.899 [facility] [place] [address] [facility] [id number] [address] [place] [phone] March, Bipolar disorder, unspecifie d F31.9 ; Posttraumatic stress disorder F43.10 and Attention deficit hyperactivity disorder (ADHD), combined type F90.2 [facility] [place] [address] [facility] [id number] [address] [place] [id number] Dec, Bipolar disorder, unspecifie d F31.9 ; Posttraumatic stress disorder F43.10 and Attention deficit hyperactivity disorder (ADHD), combined type F90.2 [facility] [place] [address] [facility] [id number] [address] [place] [phone] Dec, [facility] [place] [address] [id number] [address] [place] [phone] Sep, [facility] [place] [address] [id number] [address] [place] [phone] Aug, Bipolar disorder, unspecifie d F31.9 ; Posttraumatic stress disorder F43.10 and Attention deficit hyperactivity disorder (ADHD), combined type F90.2 [facility] [place] [address] [id number] [address] [place] [phone] Jun, [facility] [place] [address] [id number] [address] [place] [phone] March, [facility] [place] [address] [id number] [address] [place] [phone] Feb, Bipolar disorder, unspecifie d F31.9 ; Attention deficit hyperactivity disorder (ADHD), combined type F90.2 and Posttraumatic stress disorder F43.10 [facility] [place] [address] [facility] [id number] [address] [place] [phone] Feb, [facility] [place] [address] [facility] [id number] [address] [place] [phone] Feb, [facility] [place] [address] [facility] [id number] [address] [place] [phone] Feb, [facility] [place] [address] [facility] [id number] [address] [place] [phone] Jan, [facility] [address] [id number] [address] [place] [phone] Dec, Dental examination Z01.20 [facility] [place] [address] [id number] [address] [place] [phone] Sep, [facility] [place] [address] [facility] [id number] [address] [place] [phone] Sep, Attention deficit hyperactiv ity disorder (ADHD), combined type F90.2 ; Posttraumatic stress disorder F43.10 and Bipolar disorder, unspecified F31.9 [facility] [place] [address] [id number] [address] [place] [phone] Aug, [facility] [address] [id number] [address] [place] [phone] Aug, [facility] [address] [id number] [address] [place] [phone] Jul, [facility] [address] [id number] [address] [place] [phone] May, Bipolar disorder, unspecifie d 296.80 ; 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.00 and Posttraumatic stress disorder 309.81 [facility] [place] [address] [id number] [address] [place] [phone] May, [facility] [address] [id number] [address] [place] [phone] May, [facility] [address] [id number] [address] [place] [phone] May, [facility] [address] [id number] [address] [place] [phone] Apr, [facility] [address] [id number] [address] [place] [phone] Apr, [facility] [place] [address] [id number] [address] [place] [phone] Apr, [facility] [address] [id number] [address] [place] [phone] March, [facility] [address] [id number] [address] [place] [phone] March, [facility] [address] [id number] [address] [place] [phone] March, [facility] [address] [id number] [address] [place] [phone] Feb, [facility] [address] [id number] [address] [place] [phone] Feb, [facility] [address] [id number] [facility] [address] Jan, [facility] [address] [id number] [address] [place] [address], [place] [address] Jan, [facility] [address] [id number] [address] [place] [address], [place] [address] Jan, [facility] [address] [id number] [address] [place] [address], [place] [address] Jan, [facility] [address] [id number] [address] [place] [address], [place] [address] Jan, [facility] [address] [id number] [address] [place] [address], [place] [address] Jan, [facility] [address] [id number] [address] [place] [address], [place] [address] Jan, [facility] [address] [id number] [address] [place] [address], [place] [address] Jan, [facility] [address] [id number] [address] [place] [address], [place] [address] Jan, [facility] [address] [id number] [address] [place] [address], [place] [address] Jan, [facility] [address] [id number] [address] [place] [address], [place] [address] Dec, 2014 [facility] [address] [id number] [address] [place] [address], [place] [address] Dec, [facility] [address] [id number] [address] [place] [address], [place] [address] Dec, [facility] [address] [id number] [address] [place] [address], [place] [address] Dec, [facility] [address] [id number] [address] [place] [address], [place] [address] Oct, [facility] [address] [id number] [address] [place] [address], [place] [id number] 18 Oct, 2014 [facility] [address] [id number] [address] [place] [address], [place] [address] Oct, [facility] [address] [id number] [address] [place] [address], [place] [address] Oct, [facility] [address] [id number] [address] [place] [address], [place] [address] Oct, [facility] [address] [id number] [address] [place] [address], [place] [address] Oct, [facility] [address] [id number] [address] [place] [address], [place] [address] Oct, [facility] [address] [id number] [address] [place] [address], [place] [address] Sep, [facility] [address] [id number] [address] [place] [address], [place] [address] Sep, [facility] [address] [id number] [address] [place] [address], [place] [address] Sep, [facility] [address] [id number] [address] [place] [address], [place] [address] Sep, [facility] [address] [id number] [address] [place] [address], [place] [address] Sep, [facility] [address] [id number] [address] [place] [address], [place] [address] Sep, [facility] [address] [id number] [address] [place] [address], [place] [address] Sep, [facility] [address] [id number] [address] [place] [address], [place] [address] Sep, [facility] [address] [id number] [address] [place] [address], [place] [address] Aug, [facility] [address] [id number] [address] [place] [address], [place] [address] Aug, [facility] [address] [id number] [address] [place] [address], [place] [address] Aug, [facility] [address] [id number] [address] [place] [address], [place] [address] Aug, [facility] [address] [id number] [address] [place] [address], [place] [address] Jul, [facility] [address] [id number] [address] [place] [address], [place] [address] Jul, [facility] [address] [id number] [address] [place] [address], [place] [address] Jul, [facility] [address] [id number] [address] [place] [address], [place] [address] Jul, [facility] [address] [id number] [address] [place] [address], [place] [address] Jun, [facility] [address] [id number] [address] [place] [address], [place] [address] Jun, [facility] [address] [id number] [address] [place] [address], [place] [address] Jun, [facility] [address] [id number] [address] [place] [address], [place] [address] Jun, [facility] [address] [id number] [address] [place] [address], [place] [address] May, [facility] [address] [id number] [address] [place] [address], [place] [address] May, [facility] [address] [id number] [address] [place] [address], [place] [address] May, [facility] [address] [id number] [address] [place] [address], [place] [address] May, [facility] [address] [id number] [address] [place] [address], [place] [address] Apr, [facility] [address] [id number] [address] [place] [address], [place] [address] Apr, [facility] [address] [id number] [facility] [address] Apr, [facility] [address] [id number] [address] [place] [address], [place] [address] Apr, [facility] [address] [id number] [address] [place] [address], [place] [address] Apr, [facility] [address] [id number] [address] [place] [address], [place] [address] Apr, [facility] [address] [id number] [address] [place] [address], [place] [address] Apr, [facility] [address] [id number] [address] [place] [address], [place] [address] Apr, [facility] [address] [id number] [address] [place] [address], [place] [address] Apr, [facility] [address] [id number] [address] [place] [address], [place] [address] Apr, [facility] [address] [id number] [address] [place] [address], [place] [address] Apr, [facility] [address] [id number] [address] [place] [address], [place] [address] Apr, [facility] [address] [id number] [address] [place] [address], [place] [address] Apr, [facility] [address] [id number] [address] [place] [address], [place] [address] March, [facility] [address] [id number] [address] [place] [address], [place] [address] March, [facility] [address] [id number] [address] [place] [address], [place] [address] March, [facility] [address] [id number] [address] [place] [address], [place] [address] March, [facility] [address] [id number] [address] [place] [address], [place] [address] Jan, [facility] [address] [id number] [address] [place] [address], [place] [address] Jan, [facility] [address] [id number] [address] [place] [address], [place] [address] Jan, [facility] [address] [id number] [address] [place] [address], [place] [address] Jan, [facility] [address] [id number] [address] [place] [address], [place] [address] Jan, [facility] [address] [id number] [address] [place] [address], [place] [address] Jan, [facility] [address] [id number] [address] [place] [address], [place] [address] Dec, [facility] [address] [id number] [address] [place] [address], [place] [address] Dec, [facility] [address] [id number] [address] [place] [address], [place] [address] Dec, [facility] [address] [id number] [address] [place] [address], [place] [address] Dec, [facility] [address] [id number] [address] [place] [address], [place] [address] Nov, [facility] [address] [id number] [address] [place] [address], [place] [address] Nov, [facility] [address] [id number] [address] [place] [address], [place] [address] Nov, [facility] [address] [id number] [address] [place] [address], [place] [address] Nov, [facility] [address] [id number] [address] [place] [address], [place] [address] Oct, [facility] [address] [id number] [address] [place] [address], [place] [address] Oct, [facility] [address] [id number] [address] [place] [address], [place] [address] Oct, [facility] [address] [id number] [address] [place] [address], [place] [address] Oct, [facility] [address] [id number] [address] [place] [address], [place] [address] Oct, [facility] [address] [id number] [address] [place] [address], [place] [address] Oct, [facility] [address] [id number] [address] [place] [address], [place] [address] Oct, [facility] [address] [id number] [address] [place] [address], [place] [address] Oct, [facility] [address] [id number] [address] [place] [address], [place] [address] Sep, [facility] [address] [id number] [address] [place] [address], [place] [address] Sep, [facility] [address] [id number] [address] [place] [address], [place] [address] Jul, [facility] [address] [id number] [address] [place] [address], [place] [address] Jul, [facility] [address] [id number] [address] [place] [address], [place] [id number] Jul, [facility] [address] [id number] [address] [place] [id number] Jul, [facility] [address] [id number] [address] [place] [address], [place] [address] Jun, [facility] [address] [id number] [address] [place] [address], [place] [address] Jun, [facility] [address] [id number] [address] [place] [address], [place] [address] May, [facility] [address] [id number] [address] [place] [address], [place] [address] Apr, [facility] [address] [id number] [address] [place] [address], [place] [address] Apr, [facility] [address] [id number] [address] [place] [address], [place] [address] Apr, [facility] [address] [id number] [address] [place] [address], [place] [address] March, [facility] [address] [id number] [address] [place] [address], [place] [address] March, [facility] [address] [id number] [address] [place] [address], [place] [address] Feb, [facility] [address] [id number] [address] [place] [address], [place] [address] Jan, [facility] [address] [id number] [address] [place] [address], [place] [address] Jan, [facility] [address] [id number] [address] [place] [address], [place] [address] Dec, [facility] [address] [id number] [address] [place] [address], [place] [address] Dec, [facility] [address] [id number] [address] [place] [address], [place] [address] Nov, [facility] [address] [id number] [address] [place] [address], [place] [address] Nov, [facility] [address] [id number] [address] [place] [address], [place] [address] Nov, [facility] [address] [id number] [address] [place] [address], [place] [address] Oct, [facility] [address] [id number] [address] [place] [address], [place] [address] Oct, [facility] [address] [id number] [address] [place] [address], [place] [address] Oct, [facility] [address] [id number] [address] [place] [address], [place] [address] 05 Oct, 2012 [facility] [address] [id number] [address] [place] [address], [place] [address] Sep, [facility] [address] [id number] [address] [place] [address], [place] [address] Sep, [facility] [address] [id number] [address] [place] [address], [place] [address] Sep, [facility] [address] [id number] [address] [place] [address], [place] [address] Sep, [facility] [address] [id number] [address] [place] [address], [place] [address] Sep, [facility] [address] [id number] [address] [place] [address], [place] [address] Sep, [facility] [place] [address] [id number] [address] [place] [address], [place] [address] Aug, [facility] [address] [id number] [address] [place] [address], [place] [address] 26 Jul, 2012 [facility] [address] [id number] [address] [place] [address], [place] [address] 19 Jul, 2012 [facility] [address] [id number] [address] [place] [address], [place] [address] 18 Jul, 2012 [facility] [place] [address] [id number] [address] [place] [address], [place] [address] 14 Jul, 2012 [facility] [address] [id number] [address] [place] [address], [place] [address] 28 Jun, 2012 [facility] [address] [id number] [address] [place] [address], [place] [address] Jun, [facility] [place] [address] [id number] [address] [place] [address], [place] [address] Jun, [facility] [address] [id number] [address] [place] [address] [place] [id number] Jun, [facility] [facility] [address] [id number] [address] [place] [address], [place] [id number] May, [facility] [address] [id number] [address] [place] [address], [place] [id number] Apr, [facility] [address] [id number] [address] [place] [address], [place] [id number] March, [facility] [address] [id number] [address] [place] [address], [place] [id number] March, [facility] [address] [id number] [address] [place] [address], [place] [id number] March, [facility] [address] [id number] [address] [place] [address], [place] [id number] Feb, [facility] [address] [id number] [address] [place] [address], [place] [id number] Feb, [facility] [address] [id number] [address] [place] [address], [place] [id number] Jan, [facility] [address] [id number] [address] [place] [address], [place] [id number] Jan, [facility] [address] [id number] [address] [place] [address], [place] [address] Jan, [facility] [address] [id number] [address] [place] [address], [place] [id number] Dec, [facility] [address] [id number] [address] [place] [address], [place] [id number] Dec, [facility] [address] [id number] [address] [place] [address], [place] [id number] Nov, [facility] [address] [id number] [address] [place] [address], [place] [id number] Nov, [facility] [address] [id number] [address] [place] [address], [place] [id number] Nov, [facility] [place] [address] [id number] [address] [place] [id number] Nov, [facility] [place] [address] [id number] [address] [place] [phone] Nov, [facility] [place] [address] [id number] [address] [place] [phone] Oct, [facility] [place] [address] [id number] [address] [place] [phone] Oct, [facility] [place] [address] [id number] [address] [place] [phone] Oct, [facility] [place] [address] [id number] [address] [place] [phone] Oct, [facility] [place] [address] [id number] [address] [place] [phone] Sep, [facility] [place] [address] [id number] [address] [place] [phone] Sep, [facility] [place] [address] [id number] [address] [place] [phone] Sep, [facility] [place] [address] [id number] [address] [place] [id number] Aug, [facility] [place] [address] [id number] [address] [place] [phone] Oct, [facility] [place] [address] [id number] [address] [place] [phone] Oct, [facility] [place] [address] [id number] [address] [place] [phone] Oct, [facility] [place] [address] [id number] [address] [place] [phone] Oct, IMMUNIZATIONS No Known Immunizations SOCIAL HISTORY [...]
--- OUTSIDE RECORDS SUMMARY | 2020-04-25 15:03 | XMS REPORT ---
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 Name Role Phone SANDI GAR Unavailable PROBLEMS Type Condition ICD9-CM Code EWI41-MC Code Onset Dates Condition S tatus SNOMED Code Problem Encounter for long-term (current) use of other medications V58.69 Active 010186606 Problem Bipolar disorder, unspecified F31.9 Active 08577046 Problem Posttraumatic stress disorder F43.10 Active 85480684 Problem Posttraumatic stress disorder 309.81 Active 62216418 Problem 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 Active 08323826 Problem Attention deficit hyperactivity disorder (ADHD), combi dylon type F90.2 Active 011421986 Problem Bipolar disorder, unspecified 296.80 Active 02747444 ALLERGIES No Known Allergies ENCOUNTERS Encounter Location Date Diagnosis [facility] [address] [address] Jun, [facility] [address] [address] March, Bipolar disorder, unspecifie d F31.9 ; Attention deficit hyperactivity disorder (ADHD), combined type F90.2 and Posttraumatic stress disorder F43.10 [facility] [address] [id number] [address] [place] [address] Feb, [facility] [id number] [place] [address] Feb, Insect bite (nonvenomous), l eft knee, initial encounter S80.262A and Bitten or stung by nonvenomous insect and other nonvenomous arthropods, initial encounter W57.XXXA [facility] [id number] [place] [address] Feb, Bipolar disorder, unspecifie d F31.9 [facility] [address] [id number] [address] [place] [phone] Feb, Dental examination Z01.20 [facility] [address] [facility] [id number] [address] [place] [phone] Feb, Bipolar disorder, unspecifie d F31.9 ; Attention deficit hyperactivity disorder (ADHD), combined type F90.2 and Posttraumatic stress disorder F43.10 [facility] [address] [id number] [address] [place] [phone] Feb, Dental examination Z01.20 [facility] [address] [facility] [id number] [address] [place] [address] Jan, Bipolar disorder, unspecifie d F31.9 [facility] [address] [facility] [id number] [address] [place] [phone] Jan, Attention deficit hyperactiv ity disorder (ADHD), combined type F90.2 [facility] [address] [facility] [id number] [address] [place] [address] Dec, Posttraumatic stress disorde r F43.10 [facility] [address] [facility] [id number] [address] [place] [address] Dec, Posttraumatic stress disorde r F43.10 [facility] [address] [id number] [address] [place] [address] [phone] Nov, Dental examination Z01.20 [facility] [address] [id number] [address] [place] [phone] Nov, Dental examination Z01.20 [facility] [address] [id number] [address] [place] [phone] Nov, Encounter for dental exam an d cleaning w/o abnormal findings Z01.20 [facility] [address] [facility] [id number] [address] [place] [address] Sep, Bipolar disorder, unspecifie d F31.9 ; Posttraumatic stress disorder F43.10 and Attention deficit hyperactivity disorder (ADHD), combined type F90.2 [facility] [address] [facility] [id number] [address] [place] [phone] Aug, Posttraumatic stress disorde r F43.10 [facility] [address] [id number] [address] [place] [phone] 15 Jul, 2017 Other detention (current) dr ug therapy Z79.899 [facility] [address] [id number] [address] [place] [phone] 11 Jul, 2017 Bipolar disorder, unspecifie d F31.9 ; Attention deficit hyperactivity disorder (ADHD), combined type F90.2 and Posttraumatic stress disorder F43.10 [facility] [address] [facility] [id number] [address] [place] [address] Jun, Bipolar disorder, unspecifie d F31.9 ; Posttraumatic stress disorder F43.10 ; Attention deficit hyperactivity disorder (ADHD), combined type F90.2 and 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.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 [facility] [address] [facility] [id number] [address] [place] [phone] March, Bipolar disorder, unspecifie d F31.9 ; Posttraumatic stress disorder F43.10 and Attention deficit hyperactivity disorder (ADHD), combined type F90.2 [facility] [address] [facility] [id number] [address] [place] [phone] Dec, Bipolar disorder, unspecifie d F31.9 ; Posttraumatic stress disorder F43.10 and Attention deficit hyperactivity disorder (ADHD), combined type F90.2 [facility] [address] [id number] [address] [place] [phone] Dec, [facility] [address] [facility] [id number] [address] [place] [phone] Sep, [facility] [address] [facility] [id number] [address] [place] [phone] Aug, Bipolar disorder, unspecifie d F31.9 ; Posttraumatic stress disorder F43.10 and Attention deficit hyperactivity disorder (ADHD), combined type F90.2 [facility] [address] [id number] [address] [place] [phone] Jun, [facility] [address] [id number] [address] [place] [phone] March, [facility] [address] [id number] [address] [place] [phone] Feb, Bipolar disorder, unspecifie d F31.9 ; Attention deficit hyperactivity disorder (ADHD), combined type F90.2 and Posttraumatic stress disorder F43.10 [facility] [address] [id number] [address] [place] [phone] Feb, [facility] [address] [id number] [address] [place] [phone] Feb, [facility] [address] [id number] [address] [place] [phone] Feb, [facility] [address] [id number] [address] [place] [phone] Jan, [facility] [address] [id number] [address] [place] [phone] Dec, Dental examination Z01.20 [facility] [address] [id number] [address] [place] [phone] Sep, [facility] [address] [id number] [address] [place] [phone] Sep, Attention deficit hyperactiv ity disorder (ADHD), combined type F90.2 ; Posttraumatic stress disorder F43.10 and Bipolar disorder, unspecified F31.9 [facility] [address] [id number] [address] [place] [phone] Aug, [facility] [address] [id number] [address] [place] [phone] Aug, [facility] [address] [id number] [address] [place] [phone] Jul, [facility] [address] [id number] [address] [place] [phone] May, Bipolar disorder, unspecifie d 296.80 ; 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.00 and Posttraumatic stress disorder 309.81 [facility] [address] [id number] [address] [place] [id number] May, [facility] [address] [id number] [address] [place] [phone] May, [facility] [address] [id number] [address] [place] [phone] May, [facility] [address] [id number] [address] [place] [phone] Apr, [facility] [address] [id number] [address] [place] [phone] Apr, [facility] [address] [id number] [address] [place] [phone] Apr, [facility] [address] [id number] [address] [place] [phone] March, [facility] [address] [id number] [address] [place] [phone] March, [facility] [address] [id number] [address] [place] [phone] March, [facility] [address] [id number] [address] [place] [phone] Feb, [facility] [address] [id number] [address] [place] [phone] Feb, [facility] [address] [id number] [address] [place] [phone] Jan, [facility] [address] [id number] [address] [place] [phone] Jan, [facility] [address] [id number] [address] [place] [address], [place] [address] Jan, [facility] [address] [id number] [address] [place] [address], [place] [address] Jan, [facility] [address] [id number] [address] [place] [address], [place] [address] Jan, [facility] [address] [id number] [address] [place] [address], [place] [address] Jan, 2014 [facility] [address] [id number] [address] [place] [address], [place] [address] Jan, [facility] [address] [id number] [address] [place] [address], [place] [address] Jan, [facility] [address] [id number] [address] [place] [address], [place] [address] Jan, [facility] [address] [id number] [address] [place] [address], [place] [address] Jan, [facility] [address] [id number] [address] [place] [address], [place] [address] Dec, [facility] [address] [id number] [address] [place] [address], [place] [address] Dec, 2014 [facility] [address] [id number] [address] [place] [address], [place] [address] Dec, 2014 [facility] [address] [id number] [address] [place] [address], [place] [address] Dec, 2014 [facility] [address] [id number] [address] [place] [address], [place] [address] Oct, [facility] [address] [id number] [address] [place] [address], [place] [address] Oct, [facility] [address] [id number] [address] [place] [address], [place] [address] Oct, [facility] [address] [id number] [address] [place] [address], [place] [address] Oct, [facility] [address] [id number] [address] [place] [address], [place] [address] Oct, [facility] [address] [id number] [address] [place] [address], [place] [address] Oct, [facility] [address] [id number] [address] [place] [address], [place] [address] Oct, [facility] [address] [id number] [address] [place] [address], [place] [address] Sep, [facility] [address] [id number] [address] [place] [address], [place] [address] Sep, [facility] [address] [id number] [address] [place] [address], [place] [address] Sep, [facility] [address] [id number] [address] [place] [address], [place] [address] Sep, [facility] [address] [id number] [address] [place] [address], [place] [address] Sep, [facility] [address] [id number] [address] [place] [address], [place] [address] Sep, [facility] [address] [id number] [address] [place] [address], [place] [address] Sep, [facility] [address] [id number] [address] [place] [address], [place] [address] Sep, [facility] [address] [id number] [address] [place] [phone] Aug, [facility] [address] [id number] [address] [place] [address], [place] [address] Aug, [facility] [address] [id number] [address] [place] [address], [place] [address] Aug, [facility] [address] [id number] [address] [place] [address], [place] [address] Aug, [facility] [address] [id number] [facility] [place] [address] 08 Jul, 2013 [facility] [address] [id number] [address] [place] [address], [place] [address] 08 Jul, 2014 [facility] [address] [id number] [address] [place] [address], [place] [address] Jul, [facility] [address] [id number] [address] [place] [address], [place] [address] Jul, [facility] [address] [id number] [address] [place] [address], [place] [address] Jun, [facility] [address] [id number] [address] [place] [address], [place] [address] Jun, [facility] [address] [id number] [address] [place] [address], [place] [address] Jun, [facility] [address] [id number] [address] [place] [address], [place] [address] Jun, [facility] [address] [id number] [address] [place] [address], [place] [address] May, [facility] [address] [id number] [address] [place] [address], [place] [address] May, [facility] [address] [id number] [address] [place] [address], [place] [address] May, [facility] [address] [id number] [address] [place] [address], [place] [address] May, [facility] [address] [id number] [address] [place] [address], [place] [address] Apr, [facility] [address] [id number] [address] [place] [address], [place] [address] Apr, [facility] [address] [id number] [address] [place] [address], [place] [address] Apr, [facility] [address] [id number] [address] [place] [address], [place] [address] Apr, [facility] [address] [id number] [address] [place] [address], [place] [address] Apr, [facility] [address] [id number] [address] [place] [address], [place] [address] Apr, [facility] [address] [id number] [address] [place] [address], [place] [address] Apr, [facility] [address] [id number] [address] [place] [address], [place] [address] Apr, [facility] [address] [id number] [address] [place] [address], [place] [address] Apr, [facility] [address] [id number] [address] [place] [address], [place] [address] Apr, [facility] [address] [id number] [address] [place] [address], [place] [address] Apr, [facility] [address] [id number] [address] [place] [address], [place] [address] Apr, [facility] [address] [id number] [address] [place] [address], [place] [address] Apr, [facility] [address] [id number] [address] [place] [address], [place] [address] March, [facility] [address] [id number] [address] [place] [address], [place] [address] March, [facility] [address] [id number] [address] [place] [address], [place] [address] March, [facility] [address] [id number] [address] [place] [address], [place] [address] March, [facility] [address] [id number] [address] [place] [address], [place] [address] Jan, [facility] [address] [id number] [address] [place] [address], [place] [address] Jan, [facility] [address] [id number] [address] [place] [address], [place] [address] Jan, [facility] [address] [id number] [address] [place] [address], [place] [address] Jan, [facility] [address] [id number] [address] [place] [address], [place] [address] Jan, [facility] [address] [id number] [address] [place] [address], [place] [address] Jan, [facility] [address] [id number] [address] [place] [address], [place] [address] Dec, [facility] [address] [id number] [address] [place] [address], [place] [address] Dec, [facility] [address] [id number] [address] [place] [address], [place] [address] Dec, [facility] [address] [id number] [address] [place] [address], [place] [address] Dec, [facility] [address] [id number] [address] [place] [address], [place] [address] Nov, [facility] [address] [id number] [address] [place] [address], [place] [address] Nov, [facility] [address] [id number] [address] [place] [address], [place] [address] Nov, [facility] [address] [id number] [address] [place] [address], [place] [address] Nov, [facility] [address] [id number] [address] [place] [address], [place] [address] Oct, [facility] [address] [id number] [address] [place] [address], [place] [address] Oct, [facility] [address] [id number] [address] [place] [address], [place] [address] Oct, [facility] [address] [id number] [address] [place] [address], [place] [address] Oct, [facility] [address] [id number] [address] [place] [address], [place] [address] Oct, [facility] [address] [id number] [address] [place] [address], [place] [address] Oct, [facility] [address] [id number] [address] [place] [address], [place] [address] Oct, [facility] [address] [id number] [address] [place] [address], [place] [address] Oct, [facility] [address] [id number] [address] [place] [address], [place] [address] Sep, [facility] [address] [id number] [address] [place] [address], [place] [address] Sep, [facility] [address] [id number] [address] [place] [address], [place] [address] Jul, [facility] [address] [id number] [address] [place] [address], [place] [address] Jul, [facility] [address] [id number] [address] [place] [address], [place] [address] Jul, [facility] [address] [id number] [address] [place] [address], [place] [address] Jul, [facility] [address] [id number] [address] [place] [address], [place] [address] Jun, [facility] [address] [id number] [address] [place] [address], [place] [address] Jun, [facility] [address] [id number] [address] [place] [address], [place] [address] May, [facility] [address] [id number] [address] [place] [address], [place] [address] Apr, [facility] [address] [id number] [address] [place] [address], [place] [address] 14 Apr, 2013 [facility] [address] [id number] [address] [place] [address], [place] [address] Apr, [facility] [address] [id number] [address] [place] [address], [place] [address] March, [facility] [address] [id number] [address] [place] [address], [place] [address] March, [facility] [address] [id number] [address] [place] [address], [place] [address] Feb, [facility] [address] [id number] [address] [place] [address], [place] [address] Jan, [facility] [address] [id number] [address] [place] [address], [place] [address] Jan, [facility] [address] [id number] [address] [place] [address], [place] [address] Dec, [facility] [address] [id number] [address] [place] [address], [place] [address] Dec, [facility] [address] [id number] [address] [place] [address], [place] [address] Nov, [facility] [address] [id number] [address] [place] [address], [place] [address] Nov, [facility] [address] [id number] [address] [place] [address], [place] [address] Nov, [facility] [address] [id number] [address] [place] [address], [place] [address] Oct, [facility] [address] [id number] [address] [place] [address], [place] [address] Oct, [facility] [address] [id number] [address] [place] [address], [place] [address] Oct, [facility] [address] [id number] [address] [place] [address], [place] [address] Oct, [facility] [address] [id number] [address] [place] [address], [place] [address] Sep, [facility] [address] [id number] [address] [place] [address], [place] [address] 29 Sep, 2012 [facility] [address] [id number] [address] [place] [address], [place] [address] Sep, [facility] [address] [id number] [address] [place] [address], [place] [address] Sep, [facility] [address] [id number] [address] [place] [address], [place] [address] 15 Sep, 2012 [facility] [address] [id number] [address] [place] [address], [place] [address] 15 Sep, 2012 [facility] [address] [id number] [address] [place] [address], [place] [address] Aug, [facility] [address] [id number] [address] [place] [address], [place] [address] 26 Jul, 2012 [facility] [address] [id number] [address] [place] [address], [place] [address] 19 Jul, 2012 [facility] [address] [id number] [address] [place] [address], [place] [address] 18 Jul, 2012 [facility] [address] [id number] [address] [place] [address], [place] [address] 14 Jul, 2012 [facility] [address] [id number] [address] [place] [address], [place] [address] 28 Jun, 2012 [facility] [address] [id number] [address] [place] [address], [place] [address] Jun, [facility] [address] [id number] [address] [place] [address], [place] [address] Jun, [facility] [address] [id number] [address] [place] [address], [place] [address] Jun, [facility] [facility] [address] [id number] [address] [place] [address], [place] [address] May, [facility] [address] [id number] [address] [place] [address], [place] [address] Apr, [facility] [address] [id number] [address] [place] [address], [place] [address] March, [facility] [address] [id number] [address] [place] [address], [place] [address] March, [facility] [address] [id number] [address] [place] [address], [place] [address] March, [facility] [address] [id number] [address] [place] [address], [place] [address] Feb, [facility] [address] [id number] [address] [place] [address], [place] [address] Feb, [facility] [address] [id number] [address] [place] [address], [place] [address] Jan, [facility] [address] [id number] [address] [place] [address], [place] [address] Jan, [facility] [address] [id number] [address] [place] [address], [place] [address] Jan, [facility] [address] [id number] [address] [place] [address], [place] [address] Dec, [facility] [address] [id number] [address] [place] [address], [place] [address] Dec, [facility] [address] [id number] [address] [place] [address], [place] [address] Nov, [facility] [address] [id number] [address] [place] [address], [place] [address] Nov, [facility] [address] [id number] [address] [place] [address], [place] [address] Nov, [facility] [address] [id number] [address] [place] [address], [place] [address] Nov, [facility] [address] [id number] [address] [place] [address], [place] [address] Nov, [facility] [address] [id number] [address] [place] [phone] Oct, [facility] [address] [id number] [address] [place] [phone] Oct, [facility] [address] [id number] [address] [place] [phone] Oct, [facility] [address] [id number] [address] [place] [id number] Oct, [facility] [address] [id number] [address] [place] [phone] Sep, [facility] [address] [id number] [address] [place] [id number] Sep, [facility] [address] [id number] [address] [place] [phone] Sep, [facility] [address] [id number] [address] [place] [phone] Aug, [facility] [address] [id number] [address] [place] [phone] Oct, [facility] [address] [id number] [address] [place] [phone] Oct, [facility] [address] [id number] [address] [place] [id number] Oct, [facility] [address] [id number] [address] [place] [phone] Oct, IMMUNIZATIONS No Known Immunizations SOCIAL HISTORY Never Assessed REASON FOR VISIT PLAN OF CARE Activity Details Follow Up prn Reason:MATTHEW VITAL SIGNS MEDICATIONS Medication Instructions Dosage Frequency Start Date End Date Duration S tatus Intuniv 2 MG Orally Once a day 1 tablet 24h Active Clonidine HCl 0.1 MG Orally twice a day 1 tablet 12h Active Trazodone HCl 100 MG Orally Once a day 1 tablet 24h Active DDAVP 0.2 TAKE ONE TABLET BY MOUTH DAILY Active Abilify 15 mg Orally Once a day 1 tablet 24h Active Toviaz 4 MG Orally Once a day 1 tablet 24h A ctive Loratadine 10 MG Orally Once a day 1 tablet 24h Active Zoloft 100 MG Orally Once a day 1 tablet 24h Active Zyprexa Zydis 5 MG Orally as needed Once a day 1 tablet on the tongue and allow to dissolve 24h Active Xanax 0.25 MG Orally once daily 1 tablet 24h Sep, 30 days Active BusPIRone HCl 5 MG Orally in am once a day 1 tablet 24h Active RESULTS No Results PROCEDURES Procedure Date Ordered Result Body Site COMP ORAL EVALUATION - NEW/EST PT Nov 18, 2017 BITEWINGS - FOUR FILMS Nov 18, 2017 INSTRUCTIONS MEDICATIONS ADMINISTERED No Known Medications MEDICAL (GENERAL) HISTORY Type Description Date Medical History Guardian requests that we do not explain any treatment to patient!
--- OUTSIDE RECORDS SUMMARY | 2020-04-25 15:03 | XMS REPORT ---
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 Active 28288443 Problem Attention deficit hyperactivity disorder (ADHD), combi dylon type F90.2 Active 615487592 Problem Bipolar disorder, unspecified 296.80 Active 48142741 ALLERGIES No Known Allergies ENCOUNTERS Encounter Location Date Diagnosis [facility] [address] [address] Jun, [facility] [address] [address] March, Bipolar disorder, unspecifie d F31.9 ; Attention deficit hyperactivity disorder (ADHD), combined type F90.2 and Posttraumatic stress disorder F43.10 [facility] [address] [id number] [address] [place] [address] Feb, [facility] [id number] [place] [phone] Feb, Insect bite (nonvenomous), l eft knee, initial encounter S80.262A and Bitten or stung by nonvenomous insect and other nonvenomous arthropods, initial encounter W57.XXXA [facility] [id number] [place] [address] Feb, Bipolar disorder, unspecifie d F31.9 [facility] [address] [id number] [address] [place] [id number] Feb, Dental examination Z01.20 [facility] [address] [facility] [id number] [address] [place] [address] Feb, Bipolar disorder, unspecifie d F31.9 ; Attention deficit hyperactivity disorder (ADHD), combined type F90.2 and Posttraumatic stress disorder F43.10 [facility] [address] [id number] [address] [place] [phone] Feb, Dental examination Z01.20 [facility] [address] [facility] [id number] [address] [place] [address] Jan, Bipolar disorder, unspecifie d F31.9 [facility] [address] [facility] [id number] [address] [place] [address] Jan, Attention deficit hyperactiv ity disorder (ADHD), combined type F90.2 [facility] [address] [facility] [id number] [address] [place] [address] Dec, Posttraumatic stress disorde r F43.10 [facility] [address] [facility] [id number] [address] [place] [address] Dec, Posttraumatic stress disorde r F43.10 [facility] [address] [id number] [address] [place] [phone] Nov, Dental examination Z01.20 [facility] [address] [id number] [address] [place] [address] [id number] Nov, Dental examination Z01.20 [facility] [address] [id number] [address] [place] [address] [phone] Nov, Encounter for dental exam an d cleaning w/o abnormal findings Z01.20 [facility] [address] [facility] [id number] [address] [place] [address] Sep, Bipolar disorder, unspecifie d F31.9 ; Posttraumatic stress disorder F43.10 and Attention deficit hyperactivity disorder (ADHD), combined type F90.2 [facility] [address] [facility] [id number] [address] [place] [address] Aug, Posttraumatic stress disorde r F43.10 [facility] [address] [id number] [address] [place] [phone] 15 Jul, 2017 Other senior care (current) dr ug therapy Z79.899 [facility] [address] [id number] [address] [place] [id number] 11 Jul, 2017 Bipolar disorder, unspecifie d F31.9 ; Attention deficit hyperactivity disorder (ADHD), combined type F90.2 and Posttraumatic stress disorder F43.10 [facility] [address] 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 [id number] [address] [place] [address] March, Bipolar disorder, unspecifie d F31.9 ; Posttraumatic stress disorder F43.10 and Attention deficit hyperactivity disorder (ADHD), combined type F90.2 [facility] [address] [facility] [id number] [address] [place] [address] Dec, Bipolar disorder, unspecifie d F31.9 ; Posttraumatic stress disorder F43.10 and Attention deficit hyperactivity disorder (ADHD), combined type F90.2 [facility] [address] [id number] [address] [place] [address] Dec, [facility] [address] [facility] [id number] [address] [place] [address] Sep, [facility] [address] [facility] [id number] [address] [place] [address] Aug, Bipolar disorder, unspecifie d F31.9 ; Posttraumatic stress disorder F43.10 and Attention deficit hyperactivity disorder (ADHD), combined type F90.2 [facility] [address] [id number] [address] [place] [phone] Jun, [facility] [address] [id number] [address] [place] [address] March, [facility] [address] [id number] [address] [place] [address] Feb, Bipolar disorder, unspecifie d F31.9 ; Attention deficit hyperactivity disorder (ADHD), combined type F90.2 and Posttraumatic stress disorder F43.10 [facility] [address] [id number] [address] [place] [phone] Feb, [facility] [address] [id number] [address] [place] [address] Feb, [facility] [address] [id number] [address] [place] [phone] Feb, [facility] [address] [id number] [address] [place] [address] Jan, [facility] [address] [id number] [address] [place] [address] [id number] Dec, Dental examination Z01.20 [facility] [address] [id number] [address] [place] [address] Sep, [facility] [address] [id number] [address] [place] [address] Sep, Attention deficit hyperactiv ity disorder (ADHD), combined type F90.2 ; Posttraumatic stress disorder F43.10 and Bipolar disorder, unspecified F31.9 [facility] [address] [id number] [address] [place] [address] Aug, [facility] [address] [id number] [address] [place] [address] Aug, [facility] [address] [id number] [address] [place] [address] Jul, [facility] [address] [id number] [address] [place] [address] May, Bipolar disorder, unspecifie d 296.80 ; 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.00 and Posttraumatic stress disorder 309.81 [facility] [address] [id number] [address] [place] [phone] May, [facility] [address] [id number] [address] [place] [address] May, [facility] [address] [id number] [address] [place] [address] May, [facility] [address] [id number] [address] [place] [address] Apr, [facility] [address] [id number] [address] [place] [phone] Apr, [facility] [address] [id number] [address] [place] [address] Apr, [facility] [address] [id number] [address] [place] [address] March, [facility] [address] [id number] [address] [place] [phone] March, [facility] [address] [id number] [address] [place] [address] March, [facility] [address] [id number] [address] [place] [address] Feb, [facility] [address] [id number] [address] [place] [address] Feb, [facility] [address] [id number] [address] [place] [address] Jan, [facility] [address] [id number] [address] [place] [phone] Jan, [facility] [address] [id number] [address] [place] [address], [place] [address] Jan, [facility] [address] [id number] [address] [place] [address], [place] [address] Jan, [facility] [address] [id number] [address] [place] [address], [place] [address] Jan, [facility] [address] [id number] [address] [place] [address], [place] [address] Jan, 2014 [facility] [address] [id number] [address] [place] [address], [place] [address] Jan, [facility] [address] [id number] [address] [place] [address], [place] [address] Jan, [facility] [address] [id number] [address] [place] [address], [place] [address] Jan, [facility] [address] [id number] [address] [place] [address], [place] [address] Jan, [facility] [address] [id number] [address] [place] [address], [place] [address] Dec, [facility] [address] [id number] [address] [place] [address], [place] [address] Dec, 2014 [facility] [address] [id number] [address] [place] [address], [place] [address] Dec, 2014 [facility] [address] [id number] [address] [place] [address], [place] [address] Dec, 2014 [facility] [address] [id number] [address] [place] [address], [place] [address] Oct, [facility] [address] [id number] [address] [place] [address], [place] [address] Oct, [facility] [address] [id number] [address] [place] [address], [place] [address] Oct, [facility] [address] [id number] [address] [place] [address], [place] [address] Oct, [facility] [address] [id number] [address] [place] [address], [place] [address] Oct, [facility] [address] [id number] [address] [place] [address], [place] [address] Oct, [facility] [address] [id number] [address] [place] [address], [place] [address] Oct, [facility] [address] [id number] [address] [place] [address], [place] [address] Sep, [facility] [address] [id number] [address] [place] [address], [place] [address] Sep, [facility] [address] [id number] [address] [place] [address], [place] [address] Sep, [facility] [address] [id number] [address] [place] [address], [place] [address] Sep, [facility] [address] [id number] [address] [place] [address], [place] [address] Sep, [facility] [address] [id number] [address] [place] [address], [place] [address] Sep, [facility] [address] [id number] [address] [place] [address], [place] [address] Sep, [facility] [address] [id number] [address] [place] [address], [place] [address] Sep, [facility] [address] [id number] [address] [place] [address] Aug, [facility] [address] [id number] [address] [place] [address], [place] [address] Aug, [facility] [address] [id number] [address] [place] [address], [place] [address] Aug, [facility] [address] [id number] [address] [place] [address], [place] [address] Aug, [facility] [address] [id number] [facility] [place] [address] 08 Jul, 2013 [facility] [address] [id number] [address] [place] [address], [place] [address] 08 Jul, 2014 [facility] [address] [id number] [address] [place] [address], [place] [address] Jul, [facility] [address] [id number] [address] [place] [address], [place] [address] Jul, [facility] [address] [id number] [address] [place] [address], [place] [address] Jun, [facility] [address] [id number] [address] [place] [address], [place] [address] Jun, [facility] [address] [id number] [address] [place] [address], [place] [address] Jun, [facility] [address] [id number] [address] [place] [address], [place] [address] Jun, [facility] [address] [id number] [address] [place] [address], [place] [address] May, [facility] [address] [id number] [address] [place] [address], [place] [address] May, [facility] [address] [id number] [address] [place] [address], [place] [address] May, [facility] [address] [id number] [address] [place] [address], [place] [address] May, [facility] [address] [id number] [address] [place] [address], [place] [address] Apr, [facility] [address] [id number] [address] [place] [address], [place] [address] Apr, [facility] [address] [id number] [address] [place] [address], [place] [address] Apr, [facility] [address] [id number] [address] [place] [address], [place] [address] Apr, [facility] [address] [id number] [address] [place] [address], [place] [address] Apr, [facility] [address] [id number] [address] [place] [address], [place] [address] Apr, [facility] [address] [id number] [address] [place] [address], [place] [address] Apr, [facility] [address] [id number] [address] [place] [address], [place] [address] Apr, [facility] [address] [id number] [address] [place] [address], [place] [address] Apr, [facility] [address] [id number] [address] [place] [address], [place] [address] Apr, [facility] [address] [id number] [address] [place] [address], [place] [address] Apr, [facility] [address] [id number] [address] [place] [address], [place] [address] Apr, [facility] [address] [id number] [address] [place] [address], [place] [address] Apr, [facility] [address] [id number] [address] [place] [address], [place] [address] March, [facility] [address] [id number] [address] [place] [address], [place] [address] March, [facility] [address] [id number] [address] [place] [address], [place] [address] March, [facility] [address] [id number] [address] [place] [address], [place] [address] March, [facility] [address] [id number] [address] [place] [address], [place] [address] Jan, [facility] [address] [id number] [address] [place] [address], [place] [address] Jan, [facility] [address] [id number] [address] [place] [address], [place] [address] Jan, [facility] [address] [id number] [address] [place] [address], [place] [address] Jan, [facility] [address] [id number] [address] [place] [address], [place] [address] Jan, [facility] [address] [id number] [address] [place] [address], [place] [address] Jan, [facility] [address] [id number] [address] [place] [address], [place] [address] Dec, [facility] [address] [id number] [address] [place] [address], [place] [address] Dec, [facility] [address] [id number] [address] [place] [address], [place] [address] Dec, [facility] [address] [id number] [address] [place] [address], [place] [address] Dec, [facility] [address] [id number] [address] [place] [address], [place] [address] Nov, [facility] [address] [id number] [address] [place] [address], [place] [address] Nov, [facility] [address] [id number] [address] [place] [address], [place] [address] Nov, [facility] [address] [id number] [address] [place] [address], [place] [address] Nov, [facility] [address] [id number] [address] [place] [address], [place] [address] Oct, [facility] [address] [id number] [address] [place] [address], [place] [address] Oct, [facility] [address] [id number] [address] [place] [address], [place] [address] Oct, [facility] [address] [id number] [address] [place] [address], [place] [address] Oct, [facility] [address] [id number] [address] [place] [address], [place] [address] Oct, [facility] [address] [id number] [address] [place] [address], [place] [address] Oct, [facility] [address] [id number] [address] [place] [address], [place] [address] Oct, [facility] [address] [id number] [address] [place] [address], [place] [address] Oct, [facility] [address] [id number] [address] [place] [address], [place] [address] Sep, [facility] [address] [id number] [address] [place] [address], [place] [address] Sep, [facility] [address] [id number] [address] [place] [address], [place] [address] Jul, [facility] [address] [id number] [address] [place] [address], [place] [address] Jul, [facility] [address] [id number] [address] [place] [address], [place] [address] Jul, [facility] [address] [id number] [address] [place] [address], [place] [address] Jul, [facility] [address] [id number] [address] [place] [address], [place] [address] Jun, [facility] [address] [id number] [address] [place] [address], [place] [address] Jun, [facility] [address] [id number] [address] [place] [address], [place] [address] May, [facility] [address] [id number] [address] [place] [address], [place] [address] Apr, [facility] [address] [id number] [address] [place] [address], [place] [address] 14 Apr, 2013 [facility] [address] [id number] [address] [place] [address], [place] [address] Apr, [facility] [address] [id number] [address] [place] [address], [place] [address] March, [facility] [address] [id number] [address] [place] [address], [place] [address] March, [facility] [address] [id number] [address] [place] [address], [place] [address] Feb, [facility] [address] [id number] [address] [place] [address], [place] [address] Jan, [facility] [address] [id number] [address] [place] [address], [place] [address] Jan, [facility] [address] [id number] [address] [place] [address], [place] [address] Dec, [facility] [address] [id number] [address] [place] [address], [place] [address] Dec, [facility] [address] [id number] [address] [place] [address], [place] [address] Nov, [facility] [address] [id number] [address] [place] [address], [place] [address] Nov, [facility] [address] [id number] [address] [place] [address], [place] [address] Nov, [facility] [address] [id number] [address] [place] [address], [place] [address] Oct, [facility] [address] [id number] [address] [place] [address], [place] [address] Oct, [facility] [address] [id number] [address] [place] [address], [place] [address] Oct, [facility] [address] [id number] [address] [place] [address], [place] [address] Oct, [facility] [address] [id number] [address] [place] [address], [place] [address] Sep, [facility] [address] [id number] [address] [place] [address], [place] [address] 29 Sep, 2012 [facility] [address] [id number] [address] [place] [address], [place] [address] Sep, [facility] [address] [id number] [address] [place] [address], [place] [address] Sep, [facility] [address] [id number] [address] [place] [address], [place] [address] 15 Sep, 2012 [facility] [address] [id number] [address] [place] [address], [place] [address] 15 Sep, 2012 [facility] [address] [id number] [address] [place] [address], [place] [address] Aug, [facility] [address] [id number] [address] [place] [address], [place] [address] 26 Jul, 2012 [facility] [address] [id number] [address] [place] [address], [place] [address] 19 Jul, 2012 [facility] [address] [id number] [address] [place] [address], [place] [address] 18 Jul, 2012 [facility] [address] [id number] [address] [place] [address], [place] [address] 14 Jul, 2012 [facility] [address] [id number] [address] [place] [address], [place] [address] 28 Jun, 2012 [facility] [address] [id number] [address] [place] [address], [place] [address] Jun, [facility] [address] [id number] [address] [place] [address], [place] [address] Jun, [facility] [address] [id number] [address] [place] [address], [place] [address] Jun, [facility] [address] [id number] [address] [place] [address], [place] [address] May, [facility] [address] [id number] [address] [place] [address], [place] [address] Apr, [facility] [address] [id number] [address] [place] [address], [place] [address] March, [facility] [address] [id number] [address] [place] [address], [place] [address] March, [facility] [address] [id number] [address] [place] [address], [place] [address] March, [facility] [address] [id number] [address] [place] [address], [place] [address] Feb, [facility] [address] [id number] [address] [place] [address], [place] [address] Feb, [facility] [address] [id number] [address] [place] [address], [place] [address] Jan, [facility] [address] [id number] [address] [place] [address], [place] [address] Jan, [facility] [address] [id number] [address] [place] [address], [place] [address] Jan, [facility] [address] [id number] [address] [place] [address], [place] [address] Dec, [facility] [address] [id number] [address] [place] [address], [place] [address] Dec, [facility] [address] [id number] [address] [place] [address], [place] [address] Nov, [facility] [address] [id number] [address] [place] [address], [place] [address] Nov, [facility] [address] [id number] [address] [place] [address], [place] [address] Nov, [facility] [address] [id number] [address] [place] [address], [place] [address] Nov, [facility] [address] [id number] [address] [place] [address], [place] [address] Nov, [facility] [address] [id number] [address] [place] [id number] Oct, [facility] [address] [id number] [address] [place] [address] Oct, [facility] [address] [id number] [address] [place] [address] Oct, [facility] [address] [id number] [address] [place] [address] Oct, [facility] [address] [id number] [address] [place] [address] Sep, [facility] [address] [id number] [address] [place] [address] Sep, [facility] [address] [id number] [address] [place] [address] Sep, [facility] [address] [id number] [address] [place] [address] Aug, [facility] [address] [id number] [address] [place] [address] Oct, [facility] [address] [id number] [address] [place] [address] Oct, [facility] [address] [id number] [address] [place] [address] Oct, [facility] [address] [id number] [address] [place] [address] Oct, IMMUNIZATIONS No Known Immunizations SOCIAL HISTORY Never Assessed REASON FOR VISIT PLAN OF CARE VITAL SIGNS MEDICATIONS Medication Instructions Dosage Frequency Start Date End Date Duration S tatus Abilify 15 mg Orally Once a day 1 tablet 24h Unknown Intuniv 2 MG Orally Once a day 1 tablet 24h Unknown Trazodone HCl 100 MG Orally Once a day 1 tablet 24h Unknown Loratadine 10 MG Orally Once a day 1 tablet 24h Unknown Xanax 0.25 MG Orally once daily 1 tablet 24h Sep, 30 days Unknown Zyprexa Zydis 5 MG Orally as needed Once a day 1 tablet on the tongue and allow to dissolve 24h Unknown Zoloft 100 MG Orally Once a day 1 tablet 24h Unknown DDAVP 0.2 TAKE ONE TABLET BY MOUTH DAILY Unknown Clonidine HCl 0.1 MG Orally twice a day 1 tablet 12h Unknown BusPIRone HCl 5 MG Orally in am once a day 1 tablet 24h Unknown Toviaz 4 MG Orally Once a day 1 tablet 24h U nknown RESULTS No Results PROCEDURES Procedure Date Ordered Result Body Site RESIN COMPOS - 2 SURFACES POSTERIOR Nov 19, 2017 INSTRUCTIONS MEDICATIONS ADMINISTERED No Known Medications MEDICAL (GENERAL) HISTORY Type Description Date Medical History Guardian requests that we do not explain any treatment to patient!
--- OUTSIDE RECORDS SUMMARY | 2020-04-25 15:03 | XMS REPORT ---
Author Author Ronna OGLESBY Organization [facility] Address [address] [place] [address] Phone Unavailable Care Team Providers Care Production Solderer Name Role Phone CADEN OGLESBY Unavailable Unavailable PROBLEMS Type Condition ICD9-CM Code CLJ31-GU Code Onset Dates Condition S tatus SNOMED Code Problem Encounter for long-term (current) use of other medications V58.69 Active 352786228 Problem Bipolar disorder, unspecified F31.9 Active 90096687 Problem Posttraumatic stress disorder F43.10 Active 40726497 Problem Posttraumatic stress disorder 309.81 Active 64225709 Problem 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 Active 60492608 Problem Attention deficit hyperactivity disorder (ADHD), combi dylon type F90.2 Active 645179557 Problem Bipolar disorder, unspecified 296.80 Active 06492941 ALLERGIES No Known Allergies ENCOUNTERS Encounter Location Date Diagnosis [facility] [address] [id number] Jun, [facility] [address] [id number] March, Bipolar disorder, unspecifie d F31.9 ; Attention deficit hyperactivity disorder (ADHD), combined type F90.2 and Posttraumatic stress disorder F43.10 [facility] [address] [id number] [address] [place] [address] Feb, [facility] [address] [id number] [address] [place] [address] Feb, Insect bite (nonvenomous), l eft knee, initial encounter S80.262A and Bitten or stung by nonvenomous insect and other nonvenomous arthropods, initial encounter W57.XXXA [facility] [address] [id number] [address] [place] [id number] Feb, Bipolar disorder, unspecifie d F31.9 [facility] [address] [id number] [address] [place] [id number] Feb, Dental examination Z01.20 [facility] [address] [facility] [id number] [address] [place] [id number] Feb, Bipolar disorder, unspecifie d F31.9 ; Attention deficit hyperactivity disorder (ADHD), combined type F90.2 and Posttraumatic stress disorder F43.10 [facility] [address] [id number] [address] [place] [phone] Feb, Dental examination Z01.20 [facility] [address] [facility] [id number] [address] [place] [id number] Jan, Bipolar disorder, unspecifie d F31.9 [facility] [address] [facility] [id number] [address] [place] [address] Jan, Attention deficit hyperactiv ity disorder (ADHD), combined type F90.2 [facility] [address] [id number] [address] [place] [address] Dec, Posttraumatic stress disorde r F43.10 [facility] [address] [facility] [id number] [address] [place] [address] Dec, Posttraumatic stress disorde r F43.10 [facility] [address] [id number] [address] [place] [id number] Nov, Dental examination Z01.20 [facility] [address] [id number] [address] [place] [address] [phone] Nov, Dental examination Z01.20 [facility] [address] [id number] [place] [address] [id number] Nov, Encounter for dental exam an d cleaning w/o abnormal findings Z01.20 [facility] [address] [facility] [id number] [address] [place] [address] Sep, Bipolar disorder, unspecifie d F31.9 ; Posttraumatic stress disorder F43.10 and Attention deficit hyperactivity disorder (ADHD), combined type F90.2 [facility] [address] [id number] [address] [place] [address] Aug, Posttraumatic stress disorde r F43.10 [facility] [address] [id number] [address] [place] [id number] 15 Jul, 2017 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 [facility] [address] [id number] [address] [place] [id number] 11 Jul, 2017 Bipolar disorder, unspecifie d F31.9 ; Attention deficit hyperactivity disorder (ADHD), combined type F90.2 and Posttraumatic stress disorder F43.10 [facility] [address] [id number] [address] [place] [address] Jun, Bipolar disorder, unspecifie d F31.9 ; Posttraumatic stress disorder F43.10 ; Attention deficit hyperactivity disorder (ADHD), combined type F90.2 and 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 [facility] [address] [id number] [address] [place] [id number] March, Bipolar disorder, unspecifie d F31.9 ; Posttraumatic stress disorder F43.10 and Attention deficit hyperactivity disorder (ADHD), combined type F90.2 [facility] [address] [facility] [id number] [address] [place] [id number] Dec, Bipolar disorder, unspecifie d F31.9 ; Posttraumatic stress disorder F43.10 and Attention deficit hyperactivity disorder (ADHD), combined type F90.2 [facility] [address] [id number] [address] [place] [id number] Dec, [facility] [address] [id number] [address] [place] [address] Sep, [facility] [address] [id number] [address] [place] [address] Aug, Bipolar disorder, unspecifie d F31.9 ; Posttraumatic stress disorder F43.10 and Attention deficit hyperactivity disorder (ADHD), combined type F90.2 [facility] [address] [id number] [address] [place] [address] Jun, [facility] [address] [id number] [address] [place] [phone] March, [facility] [address] [id number] [address] [place] [address] Feb, Bipolar disorder, unspecifie d F31.9 ; Attention deficit hyperactivity disorder (ADHD), combined type F90.2 and Posttraumatic stress disorder F43.10 [facility] [address] [id number] [address] [place] [address] Feb, [facility] [address] [id number] [address] [place] [id number] Feb, [facility] [address] [id number] [address] [place] [id number] Feb, [facility] [address] [id number] [address] [place] [address] Jan, [facility] [address] [id number] [address] [place] [id number] Dec, Dental examination Z01.20 [facility] [address] [id number] [address] [place] [address] Sep, [facility] [address] [id number] [address] [place] [address] Sep, Attention deficit hyperactiv ity disorder (ADHD), combined type F90.2 ; Posttraumatic stress disorder F43.10 and Bipolar disorder, unspecified F31.9 [facility] [address] [id number] [address] [place] [address] Aug, [facility] [address] [id number] [address] [place] [phone] Aug, [facility] [address] [id number] [address] [place] [address] Jul, [facility] [address] [id number] [address] [place] [id number] May, Bipolar disorder, unspecifie d 296.80 ; 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.00 and Posttraumatic stress disorder 309.81 [facility] [address] [id number] [address] [place] [address] May, [facility] [address] [id number] [address] [place] [id number] May, [facility] [address] [id number] [address] [place] [id number] May, [facility] [address] [id number] [address] [place] [id number] Apr, [facility] [address] [id number] [address] [place] [phone] Apr, [facility] [address] [id number] [address] [place] [address] Apr, [facility] [address] [id number] [address] [place] [address] March, [facility] [address] [id number] [address] [place] [address] March, [facility] [address] [id number] [address] [place] [address] March, [facility] [address] [id number] [address] [place] [address] Feb, [facility] [address] [id number] [address] [place] [address] Feb, [facility] [address] [id number] [address] [place] [address] Jan, [facility] [address] [id number] [address] [place] [address] Jan, [facility] [address] [id number] [address] [place] [address] Jan, [facility] [address] [id number] [address] [place] [address], [place] [address] Jan, [facility] [address] [id number] [address] [place] [address], [place] [address] Jan, [facility] [address] [id number] [address] [place] [address], [place] [address] Jan, [facility] [address] [id number] [address] [place] [address], [place] [address] Jan, [facility] [address] [id number] [address] [place] [address], [place] [address] Jan, [facility] [address] [id number] [address] [place] [address], [place] [address] Jan, [facility] [address] [id number] [address] [place] [address], [place] [address] Jan, [facility] [address] [id number] [address] [place] [address], [place] [address] Dec, 2014 [facility] [address] [id number] [address] [place] [address], [place] [address] Dec, 2014 [facility] [address] [id number] [address] [place] [address], [place] [id number] Dec, 2014 [facility] [address] [id number] [address] [place] [address], [place] [address] Dec, 2014 [facility] [address] [id number] [address] [place] [address], [place] [id number] Oct, [facility] [address] [id number] [address] [place] [address], [place] [address] Oct, [facility] [address] [id number] [address] [place] [address], [place] [address] Oct, [facility] [address] [id number] [address] [place] [address], [place] [address] Oct, [facility] [address] [id number] [address] [place] [address], [place] [address] Oct, [facility] [address] [id number] [address] [place] [address], [place] [address] Oct, [facility] [address] [id number] [address] [place] [address], [place] [address] Oct, [facility] [address] [id number] [address] [place] [address], [place] [id number] Sep, [facility] [address] [id number] [address] [place] [address], [place] [address] Sep, [facility] [address] [id number] [address] [place] [address], [place] [address] Sep, [facility] [address] [id number] [address] [place] [address], [place] [id number] Sep, [facility] [address] [id number] [address] [place] [address], [place] [address] Sep, [facility] [address] [id number] [address] [place] [address], [place] [id number] Sep, [facility] [address] [id number] [address] [place] [address], [place] [address] Sep, [facility] [address] [id number] [address] [place] [address], [place] [id number] Sep, [facility] [address] [id number] [address] [place] [address], [place] [address] Aug, [facility] [address] [id number] [address] [place] [address], [place] [address] Aug, [facility] [address] [id number] [address] [place] [address], [place] [id number] Aug, [facility] [address] [id number] [address] [place] [address], [place] [id number] Aug, [facility] [address] [id number] [address] [place] [address], [place] [address] Jul, [facility] [address] [id number] [facility] [place] [address] Jul, [facility] [address] [id number] [address] [place] [address], [place] [address] Jul, [facility] [address] [id number] [address] [place] [address], [place] [id number] Jul, [facility] [address] [id number] [address] [place] [address], [place] [address] Jun, [facility] [address] [id number] [address] [place] [address], [place] [address] Jun, [facility] [address] [id number] [address] [place] [address], [place] [address] Jun, [facility] [address] [id number] [address] [place] [address], [place] [address] Jun, [facility] [address] [id number] [address] [place] [address], [place] [address] May, [facility] [address] [id number] [address] [place] [address], [place] [address] May, [facility] [address] [id number] [address] [place] [address], [place] [id number] May, [facility] [address] [id number] [address] [place] [address], [place] [address] May, [facility] [address] [id number] [address] [place] [address], [place] [address] Apr, [facility] [address] [id number] [address] [place] [address], [place] [address] Apr, [facility] [address] [id number] [address] [place] [address], [place] [id number] Apr, [facility] [address] [id number] [address] [place] [address], [place] [address] Apr, [facility] [address] [id number] [facility] [place] [address] Apr, [facility] [address] [id number] [address] [place] [address], [place] [address] Apr, [facility] [address] [id number] [address] [place] [address], [place] [address] Apr, [facility] [address] [id number] [address] [place] [address], [place] [address] Apr, [facility] [address] [id number] [address] [place] [address], [place] [address] Apr, [facility] [address] [id number] [address] [place] [address], [place] [address] Apr, [facility] [address] [id number] [address] [place] [address], [place] [id number] Apr, [facility] [address] [id number] [address] [place] [address], [place] [address] Apr, [facility] [address] [id number] [address] [place] [address], [place] [address] Apr, [facility] [address] [id number] [address] [place] [address], [place] [address] March, [facility] [address] [id number] [address] [place] [address], [place] [address] March, [facility] [address] [id number] [address] [place] [address], [place] [address] March, [facility] [address] [id number] [address] [place] [address], [place] [address] March, [facility] [address] [id number] [address] [place] [address], [place] [id number] Jan, [facility] [address] [id number] [address] [place] [address], [place] [address] Jan, [facility] [address] [id number] [address] [place] [address], [place] [address] Jan, [facility] [address] [id number] [address] [place] [address], [place] [address] Jan, [facility] [address] [id number] [address] [place] [address], [place] [address] Jan, [facility] [address] [id number] [address] [place] [address], [place] [address] Jan, [facility] [address] [id number] [address] [place] [address], [place] [address] Dec, [facility] [address] [id number] [address] [place] [address], [place] [address] Dec, [facility] [address] [id number] [address] [place] [address], [place] [address] Dec, [facility] [address] [id number] [address] [place] [address], [place] [address] Dec, [facility] [address] [id number] [address] [place] [address], [place] [address] Nov, [facility] [address] [id number] [address] [place] [address], [place] [address] Nov, [facility] [address] [id number] [address] [place] [address], [place] [address] Nov, [facility] [address] [id number] [address] [place] [address], [place] [address] Nov, [facility] [address] [id number] [address] [place] [address], [place] [address] Oct, [facility] [address] [id number] [address] [place] [address], [place] [address] Oct, [facility] [address] [id number] [address] [place] [address], [place] [address] Oct, [facility] [address] [id number] [address] [place] [address], [place] [address] Oct, [facility] [address] [id number] [address] [place] [address] Oct, [facility] [address] [id number] [address] [place] [address], [place] [address] Oct, [facility] [address] [id number] [address] [place] [address], [place] [address] Oct, [facility] [address] [id number] [address] [place] [address], [place] [address] Oct, [facility] [address] [id number] [address] [place] [address], [place] [id number] Sep, [facility] [address] [id number] [address] [place] [address], [place] [address] Sep, [facility] [address] [id number] [address] [place] [address], [place] [address] Jul, [facility] [address] [id number] [address] [place] [address], [place] [address] Jul, [facility] [address] [id number] [address] [place] [address], [place] [address] Jul, [facility] [address] [id number] [address] [place] [address], [place] [id number] Jul, [facility] [address] [id number] [address] [place] [address], [place] [address] Jun, [facility] [address] [id number] [address] [place] [address], [place] [address] Jun, [facility] [address] [id number] [address] [place] [address] May, [facility] [address] [id number] [address] [place] [address], [place] [address] Apr, [facility] [address] [id number] [address] [place] [address], [place] [address] Apr, [facility] [address] [id number] [address] [place] [address], [place] [id number] Apr, [facility] [address] [id number] [address] [place] [address], [place] [address] March, [facility] [address] [id number] [address] [place] [address], [place] [address] March, [facility] [address] [id number] [address] [place] [address], [place] [address] Feb, [facility] [address] [id number] [address] [place] [address], [place] [address] Jan, [facility] [address] [id number] [address] [place] [address], [place] [address] Jan, [facility] [address] [id number] [address] [place] [address], [place] [id number] Dec, [facility] [address] [id number] [address] [place] [address], [place] [id number] Dec, [facility] [address] [id number] [address] [place] [address], [place] [id number] Nov, [facility] [address] [id number] [address] [place] [address], [place] [id number] Nov, [facility] [address] [id number] [address] [place] [address], [place] [address] Nov, [facility] [address] [id number] [address] [place] [address], [place] [address] Oct, [facility] [address] [id number] [address] [place] [address], [place] [id number] Oct, [facility] [address] [id number] [address] [place] [address], [place] [id number] Oct, [facility] [address] [id number] [address] [place] [address], [place] [id number] Oct, [facility] [address] [id number] [address] [place] [address], [place] [id number] Sep, [facility] [address] [id number] [address] [place] [address], [place] [id number] Sep, [facility] [address] [id number] [address] [place] [address], [place] [id number] Sep, [facility] [address] [id number] [address] [place] [address], [place] [id number] Sep, [facility] [address] [id number] [address] [place] [address], [place] [id number] Sep, [facility] [address] [id number] [address] [place] [address], [place] [id number] 15 Sep, 2012 [facility] [address] [id number] [address] [place] [address], [place] [id number] Aug, [facility] [address] [id number] [address] [place] [address], [place] [id number] 26 Jul, 2012 [facility] [address] [id number] [address] [place] [address], [place] [id number] 19 Jul, 2012 [facility] [address] [id number] [address] [place] [address], [place] [id number] 18 Jul, 2012 [facility] [address] [id number] [address] [place] [address], [place] [id number] 14 Jul, 2012 [facility] [address] [id number] [address] [place] [address], [place] [id number] 28 Jun, 2012 [facility] [address] [id number] [address] [place] [address], [place] [id number] Jun, [facility] [address] [id number] [address] [place] [address], [place] [id number] Jun, [facility] [address] [id number] [address] [place] [address], [place] [id number] Jun, [facility] [address] [id number] [address] [place] [address], [place] [id number] May, [facility] [address] [id number] [address] [place] [address], [place] [id number] Apr, [facility] [address] [id number] [address] [place] [address], [place] [id number] March, [facility] [address] [id number] [address] [place] [address], [place] [id number] March, [facility] [address] [id number] [address] [place] [address], [place] [id number] March, [facility] [address] [id number] [address] [place] [address], [place] [id number] Feb, [facility] [address] [id number] [address] [place] [address], [place] [id number] Feb, [facility] [address] [id number] [address] [place] [address], [place] [id number] Jan, [facility] [address] [id number] [address] [place] [address], [place] [id number] Jan, [facility] [address] [id number] [address] [place] [address], [place] [id number] Jan, [facility] [address] [id number] [address] [place] [address], [place] [id number] Dec, [facility] [address] [id number] [address] [place] [address], [place] [id number] Dec, [facility] [address] [id number] [address] [place] [address], [place] [id number] Nov, [facility] [address] [id number] [address] [place] [address], [place] [id number] Nov, [facility] [address] [id number] [address] [place] [address], [place] [id number] Nov, [facility] [address] [id number] [address] [place] [address], [place] [id number] Nov, [facility] [address] [id number] [address] [place] [address], [place] [id number] Nov, [facility] [address] [id number] [address] [place] [address], [place] [id number] Oct, [facility] [address] [id number] [address] [place] [id number] Oct, [facility] [address] [id number] [address] [place] [id number] Oct, [facility] [address] [id number] [address] [place] [id number] Oct, [facility] [address] [id number] [address] [place] [id number] Sep, [facility] [address] [id number] [address] [place] [id number] Sep, [facility] [address] [id number] [address] [place] [id number] Sep, [facility] [address] [id number] [address] [place] [id number] Aug, [facility] [address] [id number] [address] [place] [id number] Oct, [facility] [address] [id number] [address] [place] [id number] Oct, [facility] [address] [id number] [address] [place] [id number] Oct, [facility] [address] [id number] [address] [place] [id number] Oct, IMMUNIZATIONS No Known Immunizations SOCIAL HISTORY Never Assessed REASON FOR VISIT ADULT OUTREACH CLASS [facility] PLAN OF CARE Activity Details Follow Up prn Reason:RESTORATIVE WITH DR GAR VITAL SIGNS MEDICATIONS Medication Instructions Dosage Frequency Start Date End Date Duration S tatus Xanax 0.25 MG Orally once daily 1 tablet 24h Sep, 30 days Unknown Zoloft 100 MG Orally Once a day 1 tablet 24h Unknown BusPIRone HCl 5 MG Orally in am once a day 1 tablet 24h Unknown Clonidine HCl 0.1 MG Orally twice a day 1 tablet 12h Unknown Loratadine 10 MG Orally Once a day 1 tablet 24h Unknown DDAVP 0.2 TAKE ONE TABLET BY MOUTH DAILY Unknown Intuniv 2 MG Orally Once a day 1 tablet 24h Unknown Trazodone HCl 100 MG Orally Once a day 1 tablet 24h Unknown Abilify 15 mg Orally Once a day 1 tablet 24h Unknown Toviaz 4 MG Orally Once a day 1 tablet 24h U nknown Zyprexa Zydis 5 MG Orally as needed Once a day 1 tablet on the tongue and allow to dissolve 24h Unknown RESULTS No Results PROCEDURES Procedure Date Ordered Result Body Site PROPHYLAXIS - ADULT Nov 18, 2017 TOPICAL FLUORIDE VARNISH Nov 18, 2017 INSTRUCTIONS MEDICATIONS ADMINISTERED No Known Medications MEDICAL (GENERAL) HISTORY Type Description Date Medical History Guardian requests that we do not explain any treatment to patient!
--- OUTSIDE RECORDS SUMMARY | 2020-04-25 15:03 | XMS REPORT ---
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 Active 75204399 Problem Attention deficit hyperactivity disorder (ADHD), combi dylon type F90.2 Active 610818708 Problem Bipolar disorder, unspecified 296.80 Active 04684244 ALLERGIES No Information ENCOUNTERS Encounter Location Date Diagnosis [facility] [address] [id number] March, [facility] [address] [id number] Feb, [facility] [address] [id number] Feb, Insect bite (nonvenomous), l eft knee, initial encounter S80.262A and Bitten or stung by nonvenomous insect and other nonvenomous arthropods, initial encounter W57.XXXA [facility] [address] [address] Feb, Bipolar disorder, unspecifie d F31.9 [facility] [address] [facility] [id number] [address] [place] [id number] Feb, Dental examination Z01.20 [facility] [address] [id number] [address] [place] [address] Feb, Bipolar disorder, unspecifie d F31.9 ; Attention deficit hyperactivity disorder (ADHD), combined type F90.2 and Posttraumatic stress disorder F43.10 [facility] [address] [id number] [address] [place] [id number] Feb, Dental examination Z01.20 [facility] [address] [id number] [address] [place] [address] Jan, Bipolar disorder, unspecifie d F31.9 [facility] [address] [id number] [address] [place] [address] Jan, Attention deficit hyperactiv ity disorder (ADHD), combined type F90.2 [facility] [address] [facility] [id number] [address] [place] [phone] Dec, Posttraumatic stress disorde r F43.10 [facility] [address] [id number] [address] [place] [id number] Dec, Posttraumatic stress disorde r F43.10 [facility] [address] [id number] [place] [address] [id number] Nov, Dental examination Z01.20 [facility] [address] [id number] [place] [address] [id number] Nov, Encounter for dental exam an d cleaning w/o abnormal findings Z01.20 [facility] [address] [id number] [address] [place] [address] [id number] Nov, Dental examination Z01.20 [facility] [address] [facility] [id number] [address] [place] [address] Sep, Bipolar disorder, unspecifie d F31.9 ; Posttraumatic stress disorder F43.10 and Attention deficit hyperactivity disorder (ADHD), combined type F90.2 [facility] [address] [facility] [id number] [address] [place] [phone] Aug, Posttraumatic stress disorde r F43.10 [facility] [address] [id number] [address] [place] [phone] 15 Jul, 2017 Other nursing home (current) dr ug therapy Z79.899 [facility] [address] [id number] [address] [place] [id number] 11 Jul, 2017 Bipolar disorder, unspecifie d F31.9 ; Attention deficit hyperactivity disorder (ADHD), combined type F90.2 and Posttraumatic stress disorder F43.10 [facility] [address] [id number] [address] [place] [address] Jun, Bipolar disorder, unspecifie d F31.9 ; Posttraumatic stress disorder F43.10 ; Attention deficit hyperactivity disorder (ADHD), combined type F90.2 and Other nursing home (current) drug therapy Z79.899 [facility] [address] [facility] [id number] [address] [place] [phone] March, Bipolar disorder, unspecifie d F31.9 ; Posttraumatic stress disorder F43.10 and Attention deficit hyperactivity disorder (ADHD), combined type F90.2 [facility] [address] [facility] [id number] [address] [place] [id number] Dec, Bipolar disorder, unspecifie d F31.9 ; Posttraumatic stress disorder F43.10 and Attention deficit hyperactivity disorder (ADHD), combined type F90.2 [facility] [address] [id number] [address] [place] [phone] Dec, [facility] [address] [id number] [address] [place] [id number] Sep, [facility] [address] [id number] [address] [place] [address] Aug, Bipolar disorder, unspecifie d F31.9 ; Posttraumatic stress disorder F43.10 and Attention deficit hyperactivity disorder (ADHD), combined type F90.2 [facility] [address] [facility] [id number] [address] [place] [phone] Jun, [facility] [address] [id number] [address] [place] [phone] March, [facility] [address] [id number] [address] [place] [phone] Feb, Bipolar disorder, unspecifie d F31.9 ; Attention deficit hyperactivity disorder (ADHD), combined type F90.2 and Posttraumatic stress disorder F43.10 [facility] [address] [id number] [address] [place] [address] Feb, [facility] [address] [id number] [address] [place] [phone] Feb, [facility] [address] [facility] [id number] [address] [place] [phone] Feb, [facility] [address] [facility] [id number] [address] [place] [phone] Jan, [facility] [address] [id number] [address] [place] [address] [id number] Dec, Dental examination Z01.20 [facility] [address] [facility] [id number] [address] [place] [id number] Sep, [facility] [address] [facility] [id number] [address] [place] [phone] Sep, Attention deficit hyperactiv ity disorder (ADHD), combined type F90.2 ; Posttraumatic stress disorder F43.10 and Bipolar disorder, unspecified F31.9 [facility] [address] [id number] [address] [place] [phone] Aug, [facility] [address] [facility] [id number] [address] [place] [phone] Aug, [facility] [address] [facility] [id number] [address] [place] [id number] Jul, [facility] [address] [facility] [id number] [address] [place] [id number] May, Bipolar disorder, unspecifie d 296.80 ; 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.00 and Posttraumatic stress disorder 309.81 [facility] [address] [id number] [address] [place] [address] May, [facility] [address] [id number] [address] [place] [phone] May, [facility] [address] [id number] [address] [place] [phone] May, [facility] [address] [id number] [address] [place] [id number] Apr, [facility] [address] [id number] [address] [place] [phone] Apr, [facility] [address] [id number] [address] [place] [phone] Apr, [facility] [address] [id number] [address] [place] [phone] March, [facility] [address] [id number] [address] [place] [id number] March, [facility] [address] [id number] [address] [place] [address] March, [facility] [address] [id number] [address] [place] [phone] Feb, [facility] [address] [id number] [address] [place] [phone] Feb, [facility] [address] [id number] [address] [place] [phone] Jan, [facility] [address] [id number] [address] [place] [phone] Jan, [facility] [address] [id number] [address] [place] [phone] Jan, [facility] [address] [id number] [address] [place] [phone] Jan, [facility] [address] [id number] [address] [place] [address], [place] [address] Jan, 2014 [facility] [address] [id number] [address] [place] [address], [place] [address] Jan, 2014 [facility] [address] [id number] [address] [place] [address], [place] [address] Jan, 2014 [facility] [address] [id number] [address] [place] [address], [place] [address] Jan, 2014 [facility] [address] [id number] [address] [place] [address], [place] [address] Jan, 2014 [facility] [address] [id number] [address] [place] [address], [place] [address] Jan, [address] [facility] [address] [id number] [address] [place] [address], [place] [address] Dec, 2014 [facility] [address] [id number] [address] [place] [address], [place] [address] Dec, [address] [facility] [address] [id number] [address] [place] [address], [place] [address] Dec, [facility] [address] [id number] [address] [place] [address], [place] [address] Dec, [facility] [address] [id number] [address] [place] [address], [place] [address] Oct, [facility] [address] [id number] [address] [place] [address], [place] [address] Oct, [facility] [address] [id number] [address] [place] [address], [place] [address] Oct, [facility] [address] [id number] [address] [place] [address], [place] [address] Oct, [facility] [address] [id number] [address] [place] [address], [place] [address] Oct, [facility] [address] [id number] [address] [place] [address], [place] [address] Oct, [facility] [address] [id number] [address] [place] [address], [place] [address] Oct, [facility] [address] [id number] [address] [place] [address], [place] [address] Sep, [facility] [address] [id number] [address] [place] [address], [place] [address] Sep, [facility] [address] [id number] [address] [place] [address], [place] [address] Sep, [facility] [address] [id number] [address] [place] [address], [place] [address] Sep, [facility] [address] [id number] [address] [place] [address], [place] [address] Sep, [facility] [address] [id number] [address] [place] [address], [place] [address] Sep, [facility] [address] [id number] [address] [place] [address], [place] [address] Sep, [facility] [address] [id number] [address] [place] [address], [place] [address] Sep, [facility] [address] [id number] [address] [place] [address], [place] [address] Aug, [facility] [address] [id number] [address] [place] [address], [place] [address] Aug, [facility] [address] [id number] [address] [place] [phone] Aug, [facility] [address] [id number] [address] [place] [address], [place] [address] Aug, [facility] [address] [id number] [address] [place] [address], [place] [address] Jul, [facility] [address] [id number] [address] [place] [address], [place] [address] Jul, [facility] [address] [id number] [facility] [place] [address] Jul, [facility] [address] [id number] [address] [place] [address], [place] [address] Jul, [facility] [address] [id number] [address] [place] [address], [place] [address] Jun, [facility] [address] [id number] [address] [place] [address], [place] [address] Jun, [facility] [address] [id number] [address] [place] [address], [place] [address] Jun, [facility] [address] [id number] [address] [place] [address], [place] [address] Jun, [facility] [address] [id number] [address] [place] [address], [place] [address] May, [facility] [address] [id number] [address] [place] [address], [place] [address] May, [facility] [address] [id number] [address] [place] [address], [place] [address] May, [facility] [address] [id number] [address] [place] [address], [place] [address] May, [facility] [address] [id number] [address] [place] [address], [place] [address] Apr, [facility] [address] [id number] [address] [place] [address], [place] [address] Apr, [facility] [address] [id number] [address] [place] [address], [place] [address] Apr, [facility] [address] [id number] [address] [place] [address], [place] [address] Apr, [facility] [address] [id number] [address] [place] [address], [place] [address] Apr, [facility] [address] [id number] [address] [place] [address], [place] [address] Apr, [facility] [address] [id number] [address] [place] [address], [place] [address] Apr, [facility] [address] [id number] [address] [place] [address], [place] [address] Apr, [facility] [address] [id number] [address] [place] [address], [place] [address] Apr, [facility] [address] [id number] [address] [place] [address], [place] [address] Apr, [facility] [address] [id number] [address] [place] [address], [place] [address] Apr, [facility] [address] [id number] [address] [place] [address], [place] [address] Apr, [facility] [address] [id number] [address] [place] [address], [place] [address] Apr, [facility] [address] [id number] [address] [place] [address], [place] [address] March, [facility] [address] [id number] [address] [place] [address], [place] [address] March, [facility] [address] [id number] [address] [place] [address], [place] [address] March, [facility] [address] [id number] [address] [place] [address], [place] [address] March, [facility] [address] [id number] [address] [place] [address], [place] [address] Jan, [facility] [address] [id number] [address] [place] [address], [place] [address] Jan, [facility] [address] [id number] [address] [place] [address], [place] [address] Jan, [facility] [address] [id number] [address] [place] [address], [place] [address] Jan, [facility] [address] [id number] [address] [place] [address], [place] [address] Jan, [facility] [address] [id number] [address] [place] [address], [place] [address] Jan, [facility] [address] [id number] [address] [place] [address], [place] [address] Dec, [facility] [address] [id number] [address] [place] [address], [place] [address] Dec, [facility] [address] [id number] [address] [place] [address], [place] [address] Dec, [facility] [address] [id number] [address] [place] [address], [place] [address] Dec, [facility] [address] [id number] [address] [place] [address], [place] [address] Nov, [facility] [address] [id number] [address] [place] [address], [place] [address] Nov, [facility] [address] [id number] [address] [place] [address], [place] [address] Nov, [facility] [address] [id number] [address] [place] [address], [place] [address] Nov, [facility] [address] [id number] [address] [place] [address], [place] [address] Oct, [facility] [address] [id number] [address] [place] [address], [place] [address] Oct, [facility] [address] [id number] [address] [place] [address], [place] [address] Oct, [facility] [address] [id number] [address] [place] [address], [place] [address] Oct, [facility] [address] [id number] [address] [place] [address], [place] [address] Oct, [facility] [address] [id number] [address] [place] [address], [place] [address] Oct, [facility] [address] [id number] [address] [place] [address], [place] [address] Oct, [facility] [address] [id number] [address] [place] [address], [place] [address] Oct, [facility] [address] [id number] [address] [place] [address], [place] [address] Sep, [facility] [address] [id number] [address] [place] [address], [place] [address] Sep, [facility] [address] [id number] [address] [place] [address], [place] [address] Jul, [facility] [address] [id number] [address] [place] [address], [place] [address] Jul, [facility] [address] [id number] [address] [place] [address], [place] [address] Jul, [facility] [address] [id number] [address] [place] [address], [place] [address] Jul, [facility] [address] [id number] [address] [place] [address], [place] [address] Jun, [facility] [address] [id number] [address] [place] [address], [place] [address] Jun, [facility] [address] [id number] [address] [place] [address], [place] [address] May, [facility] [address] [id number] [address] [place] [address], [place] [address] Apr, [facility] [address] [id number] [address] [place] [address], [place] [address] Apr, [facility] [address] [id number] [address] [place] [address], [place] [address] Apr, [facility] [address] [id number] [address] [place] [address], [place] [address] March, [facility] [address] [id number] [address] [place] [address], [place] [id number] March, [facility] [address] [id number] [address] [place] [address], [place] [address] Feb, [facility] [address] [id number] [address] [place] [address], [place] [address] Jan, [facility] [address] [id number] [address] [place] [address], [place] [address] Jan, [facility] [address] [id number] [address] [place] [address], [place] [address] Dec, [facility] [address] [id number] [address] [place] [address], [place] [address] Dec, [facility] [address] [id number] [address] [place] [address], [place] [address] Nov, [facility] [address] [id number] [address] [place] [address], [place] [address] Nov, [facility] [address] [id number] [address] [place] [address], [place] [address] Nov, [facility] [address] [id number] [address] [place] [address], [place] [address] Oct, [facility] [address] [id number] [address] [place] [address], [place] [address] Oct, [facility] [address] [id number] [address] [place] [address], [place] [address] Oct, [facility] [address] [id number] [address] [place] [address], [place] [address] Oct, [facility] [address] [id number] [address] [place] [address], [place] [address] Sep, [facility] [address] [id number] [address] [place] [address], [place] [address] Sep, [facility] [address] [id number] [address] [place] [address], [place] [address] Sep, [facility] [address] [id number] [address] [place] [address], [place] [address] Sep, [facility] [address] [id number] [address] [place] [address], [place] [id number] 15 Sep, 2012 [facility] [address] [id number] [address] [place] [address], [place] [address] 15 Sep, 2012 [facility] [address] [id number] [address] [place] [address], [place] [address] Aug, [facility] [address] [id number] [address] [place] [address], [place] [id number] 26 Jul, 2012 [facility] [address] [id number] [address] [place] [address], [place] [id number] 19 Jul, [address] [facility] [address] [id number] [address] [place] [address], [place] [id number] 18 Jul, [address] [facility] [address] [id number] [address] [place] [address], [place] [id number] 14 Jul, [address] [facility] [address] [id number] [address] [place] [address], [place] [address] Jun, [facility] [address] [id number] [address] [place] [address], [place] [address] Jun, [facility] [address] [id number] [address] [place] [address], [place] [address] Jun, [facility] [address] [id number] [address] [place] [address], [place] [id number] Jun, [facility] [address] [id number] [address] [place] [address], [place] [address] May, [facility] [address] [id number] [address] [place] [address], [place] [address] Apr, [facility] [address] [id number] [address] [place] [address], [place] [id number] March, [facility] [address] [id number] [address] [place] [address], [place] [address] March, [facility] [address] [id number] [address] [place] [address], [place] [phone] March, [facility] [address] [id number] [address] [place] [address], [place] [phone] Feb, [facility] [address] [id number] [address] [place] [address], [place] [address] Feb, [facility] [address] [id number] [address] [place] [address], [place] [phone] Jan, [facility] [address] [id number] [address] [place] [address], [place] [address] Jan, [facility] [address] [id number] [address] [place] [address], [place] [phone] Jan, [facility] [address] [id number] [address] [place] [address], [place] [phone] Dec, [facility] [address] [id number] [address] [place] [address], [place] [address] Dec, [facility] [address] [id number] [address] [place] [address], [place] [phone] Nov, [facility] [address] [id number] [address] [place] [address], [place] [address] Nov, [facility] [address] [id number] [address] [place] [address], [place] [address] Nov, [facility] [address] [id number] [address] [place] [address], [place] [phone] Nov, [facility] [address] [id number] [address] [place] [address], [place] [address] Nov, [facility] [address] [id number] [address] [place] [address], [place] [address] Oct, [facility] [address] [id number] [address] [place] [address], [place] [phone] Oct, [facility] [address] [id number] [address] [place] [phone] Oct, [facility] [address] [id number] [address] [place] [phone] Oct, [facility] [address] [id number] [address] [place] [phone] Sep, [facility] [address] [id number] [address] [place] [phone] Sep, [facility] [address] [id number] [address] [place] [phone] Sep, [facility] [address] [id number] [address] [place] [phone] Aug, [facility] [address] [id number] [address] [place] [phone] Oct, [facility] [address] [id number] [address] [place] [phone] Oct, [facility] [address] [id number] [address] [place] [phone] Oct, [facility] [address] [id number] [address] [place] [phone] Oct, IMMUNIZATIONS No Known Immunizations SOCIAL HISTORY Never Assessed REASON FOR VISIT med refill PLAN OF CARE VITAL SIGNS MEDICATIONS Medication Instructions Dosage Frequency Start Date End Date Duration S tatus DDAVP 0.2 mg TAKE ONE TABLET BY MOUTH DAILY 30 days Active RESULTS No Results PROCEDURES No Known procedures INSTRUCTIONS MEDICATIONS ADMINISTERED No Known Medications MEDICAL (GENERAL) HISTORY Type Description Date Medical History Guardian requests that we do not explain any treatment to patient!
--- OUTSIDE RECORDS SUMMARY | 2020-04-25 15:04 | XMS REPORT | Continuity of Care Document ---
Demographics Preferred Language Unknown Marital Status Unknown Sikhism Affiliation Unknown Race Unknown Ethnic Group Unknown Author Organization Unknown Address Unknown Phone Unavailable Allergies Active Description Code Type Severity Reaction Onset Reported/Identified Relationship to Patient Clinical Status Yes No Known Drug Allergies [id number] Drug Allergy Unknown N/A 03/11/2018 Medications There is no data. Problems Date Dx Coded Attending Type Code Diagnosis Diagnosed By 07/24/2010 DARLENE ADAMES AMADOU SANTACRUZ 296.90 MO MOOD DIS NOS 07/24/2010 COLON ROSANGELA AMADOU SANTACRUZ 314.01 ADHD COMBINED 07/24/2010 COLON ROSANGELA AMADOU SANTACRUZ 296.90 MO MOOD DIS NOS 07/24/2010 COLON VALET PARKER, AMADOU SANTACRUZ 314.01 ADHD COMBINED 07/24/2010 296.90 MO MOOD DIS NOS 07/24/2010 314.01 ADH D COMBINED 07/24/2010 COLON ROSANGELA AMADOU SANTACRUZ 296.90 MO MOOD DIS NOS 07/24/2010 COLONELOISA CARTERCarlos AMADOU SANTACRUZ 314.01 ADHD COMBINED 07/24/2010 COLONELOISA CARTERN, AMADOU SANTACRUZ 296.90 MO MOOD DIS NOS 07/24/2010 COLON ROSANGELA, AMADOU SANTACRUZ 314.01 ADHD COMBINED 07/24/2010 COLONELOISA CARTERN, AMADOU SANTACRUZ 296.90 MO MOOD DIS NOS 07/24/2010 DARLENE CARTERN, AMADOU SANTACRUZ 314.01 ADHD COMBINED 07/24/2010 COLONELOISA CARTERCarlos AMADOU SANTACRUZ 296.90 MO MOOD DIS NOS 07/24/2010 COLON [place] PARKER, AMADOU SANTACRUZ 314.01 ADHD COMBINED 07/24/2010 CHEYENNE LIN M 296.90 MO MOOD DIS NOS 07/24/2010 CHEYENNE LIN M 314.01 ADHD COMBINED 07/24/2010 [employer], [place]NE M 296.90 MO MOOD DIS NOS 07/24/2010 [employer], [place] M 314.01 ADHD COMBINED 07/24/2010 KIMMIE LS, NATALIYA R 296.90 MO MOOD DIS NOS 07/24/2010 KIMMIE LSCS, NATALIYA R 314.01 ADHD COMBINED 08/21/2010 DARLENE ADAMES AMADOU NEETA 296.90 MO MOOD DIS NOS 08/21/2010 COLON [place] PARKER, AMADOU SANTACRUZ 314.01 ADHD COMBINED 08/21/2010 COLON [place]ET PARKER, AMADOU SANTACRUZ 317 MILD MENTAL RETARDATION 08/21/2010 COLON VALET PARKER, AMADOU SANTACRUZ 296.90 MO MOOD DIS NOS 08/21/2010 COLON [employer]ET PARKER, AMADOU SANTACRUZ 314.01 ADHD COMBINED 08/21/2010 COLON VALET PARKER, AMADOU SANTACRUZ 317 MILD MENTAL RETARDATION 08/21/2010 296.90 MO MOOD DIS NOS 08/21/2010 314.01 ADH D COMBINED 08/21/2010 317 MILD M ENTAL RETARDATION 08/21/2010 COLON VALET PARKER, AMADOU SANTACRUZ 296.90 MO MOOD DIS NOS 08/21/2010 COLON [employer]ET PARKER, AMADOU SANTACRUZ 314.01 ADHD COMBINED 08/21/2010 COLON VALET PARKER, AMADOU SANTACRUZ 317 MILD MENTAL RETARDATION 08/21/2010 COLON VALET PARKER, AMADOU SANTACRUZ 296.90 MO MOOD DIS NOS 08/21/2010 COLON VALET PARKER, AMADOU SANTACRUZ 314.01 ADHD COMBINED 08/21/2010 COLON VALET PARKER, AMADOU SANTACRUZ 317 MILD MENTAL RETARDATION 08/21/2010 COLON VALET PARKER, AMADOU SANTACRUZ 296.90 MO MOOD DIS NOS 08/21/2010 COLON VALET PARKER, AMADOU SANTACRUZ 314.01 ADHD COMBINED 08/21/2010 COLON VALET PARKER, AMADOU SANTACRUZ 317 MILD MENTAL RETARDATION 08/21/2010 COLON VALET PARKER, AMADOU SANTACRUZ 296.90 MO MOOD DIS NOS 08/21/2010 COLON VALET PARKER, AMADOU SANTACRUZ 314.01 ADHD COMBINED 08/21/2010 COLON VALET PARKER, AMADOU SANTACRUZ 317 MILD MENTAL RETARDATION 08/21/2010 [employer], CHEYENNE M 296.90 MO MOOD DIS NOS 08/21/2010 [employer], [place] M 314.01 ADHD COMBINED 08/21/2010 [employer], CHEY[place]NE M 3 17 MILD MENTAL RETARDATION 08/21/2010 [employer], [place]NE M 296.90 MO MOOD DIS NOS 08/21/2010 [employer], [place] M 314.01 ADHD COMBINED 08/21/2010 [employer], [place] M 3 17 MILD MENTAL RETARDATION 08/21/2010 KIMMIE LSCS, NATALIYA R 296.90 MO MOOD DIS NOS 08/21/2010 KIMMIE LSCS, NATALIYA R 314.01 ADHD COMBINED 08/21/2010 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, NATALIYA R 300.02 AN GEN ANXIETY 11/27/2010 [facility], NATALIYA R 313.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 12/05/2011 DARLENE CARTERNAMADOU 309.81 AN PTSD 12/05/2011 [employer] [employer], AMADOU SANTACRUZ 314.00 ADHD INATTENTIVE 12/05/2011 DARLENE CARTERCarlos AMADOU SANTACRUZ 309.81 AN PTSD 12/05/2011 [employer], AMADOU SANTACRUZ 314.00 ADHD INATTENTIVE 12/05/2011 309.81 AN PTSD 12/05/2011 314.00 ADH D INATTENTIVE 12/05/2011 DARLENE CARTERNAMADOU 309.81 AN PTSD 12/05/2011 [employer], AMADOU SANTACRUZ 314.00 ADHD INATTENTIVE 12/05/2011 [employer], AMADOU SANTACRUZ 309.81 AN PTSD 12/05/2011 [employer], AMADOU SANTACRUZ 314.00 ADHD INATTENTIVE 12/05/2011 [employer]ER, AMADOU SANTACRUZ 309.81 AN PTSD 12/05/2011 [employer], AMADOU SANTACRUZ 314.00 ADHD INATTENTIVE 12/05/2011 [employer], AMADOU SANTACRUZ 309.81 AN PTSD 12/05/2011 [employer], AMADOU SANTACRUZ 314.00 ADHD INATTENTIVE 12/05/2011 [employer], CHEY[place]NE M 309.81 AN PTSD 12/05/2011 [employer], CHEYENNE M 314.00 ADHD INATTENTIVE 12/05/2011 [employer], CHEYENNE M 309.81 AN PTSD 12/05/2011 [employer], [place]NE M 314.00 ADHD INATTENTIVE 12/05/2011 [facility], NATALIYA R 309.81 AN PTSD 12/05/2011 [facility], NATALIYA R 314.00 ADHD INATTENTIVE 10/20/2012 DARLENE CARTERCralos AMADOU SANTACRUZ 296.80 MO BIPOLAR NOS 10/20/2012 DARLENE CARTERCarlos AMADOU SANTACRUZ 296.80 MO BIPOLAR NOS 10/20/2012 296.80 MO BIPOLAR NOS 10/20/2012 [place] [facility]ER, AMADOU NEETA 296.80 MO BIPOLAR NOS 10/20/2012 [employer], AMADOU NEETA 296.80 MO BIPOLAR NOS 10/20/2012 [employer] PARKER AMADOU SANTACRUZ 296.80 MO BIPOLAR NOS 10/20/2012 [employer], CHEYENNE M 296.80 MO BIPOLAR NOS 10/20/2012 [employer], CHEYENNE M 296.80 MO BIPOLAR NOS 10/20/2012 [facility], NATALIYA R 296.80 MO BIPOLAR NOS 04/20/2013 V58.69 MED ICATION HIGH RISK 04/20/2013 COLON ROSANGELA AMADOU SANTACRUZ V58.69 MEDICATION HIGH RISK 04/20/2013 COLON ROSANGELA AMADOU SANTACRUZ V58.69 MEDICATION HIGH RISK 04/20/2013 COLON VALET PARKERMAADOU Gonzalez V58.69 MEDICATION HIGH RISK 04/20/2013 [employer], [place] M V58.69 MEDICATION HIGH RISK 04/20/2013 [employer] [place] M V58.69 MEDICATION HIGH RISK 04/20/2013 KIMMIE [facility], NATALIYA Yates V58.69 MEDICATION HIGH RISK 03/11/2018 OLIVA, GISEL TELEPHONE OPERATOR Ot F31.9 BIPOLAR DISORDER, UNSPECIFIED 03/11/2018 OLIVA, GISEL TELEPHONE OPERATOR Ot F43.10 POST-TRAUMATIC STRESS DISORDER, UNSPECIF 03/11/2018 OLIVA, GISEL TELEPHONE OPERATOR Ot L98.9 DISORDER OF THE SKIN AND SUBCUTANEOUS TI 03/11/2018 OLIVA, GISEL TELEPHONE OPERATOR Ot Z87.19 PERSONAL HISTORY OF OTHER DISEASES OF TH 03/13/2018 OLIVA, GISEL TELEPHONE OPERATOR Ot F31.9 BIPOLAR DISORDER, UNSPECIFIED 03/13/2018 OLIVA, GISEL TELEPHONE OPERATOR Ot F43.10 POST-TRAUMATIC STRESS DISORDER, UNSPECIF 03/13/2018 OLIVA, GISEL TELEPHONE OPERATOR Ot L98.9 DISORDER OF THE SKIN AND SUBCUTANEOUS TI 03/13/2018 OLIVA, GISEL TELEPHONE OPERATOR Ot Z87.19 PERSONAL HISTORY OF OTHER DISEASES OF Procedures Code Description [place] [address] PSYC H IND W/MED CK 10/27/2012 Results Test Result Range Comp. Metabolic Panel (14) - 07/31/17 09 :16 Glucose, Serum 94 mg/dL 65-99 BUN 9 mg/dL 6-20 Creatinine, Serum 0.74 mg/dL 0.57-1.00 eGFR If NonAfricn Am 113 mL/min/1.73 >59 eGFR If Africn Am 130 mL/min/1.73 >5 9 BUN/Creatinine Ratio 12 9-23 Sodium, Serum 143 [...] >59 eGFR If Africn Am 130 mL/min/1.73 >5 9 BUN/Creatinine Ratio 12 9-23 Sodium, Serum 143 [...] IU/L 0-40 ALT (SGPT) 33 IU/L 0-32 [facility] - 08/20/18 10:08 GLUCOSE 80 mg/dL 65-99 UREA NITROGEN (BUN) 10 mg/dL 7-25 CREATININE 0.78 mg/dL 0.50-1.10 eGFR NON-AFR. GRENADIAN 105 mL/min/1.73m2 > OR = 60 eGFR 122 mL/min/1.73m2 > OR = 60 BUN/CREATININE RATIO NOT APPLICABLE (calc) 6-22 SODIUM 139 mmol/L 135-146 POTASSIUM 4.2 mmol/L 3.5-5.3 CHLORIDE 104 mmol/L 98-110 CARBON DIOXIDE 28 mmol/L 20-32 CALCIUM 9.8 mg/dL 8.6-10.2 PROTEIN, TOTAL 7.0 g/dL 6.1-8.1 ALBUMIN 4.5 g/dL 3.6-5.1 GLOBULIN 2.5 g/dL (calc) 1.9-3.7 ALBUMIN/GLOBULIN RATIO 1.8 (calc) 1.0-2. 5 BILIRUBIN, TOTAL 0.5 mg/dL 0.2-1.2 ALKALINE PHOSPHATASE 90 U/L 33-115 AST 22 U/L 10-30 ALT 26 U/L 6-29 PDM - ATS (PROFILE 8 WITH CONFIRMATION) - 04/05/19 16:48 Creatinine 71.1 mg/dL > or = 20.0 pH 5.83 4.5 - 9.0 Oxidant NEGATIVE mcg/mL <200 Amphetamines NEGATIVE ng/mL <500 medMATCH Amphetamines CONSISTENT NRG Benzodiazepines NEGATIVE CONFIRMED ng/mL <100 Marijuana Metabolite NEGATIVE ng/mL <20 medMATCH Marijuana Metab CONSISTENT NRG Cocaine Metabolite NEGATIVE ng/mL <150 medMATCH Cocaine Metab CONSISTENT NRG Opiates NEGATIVE ng/mL <100 medMATCH Opiates CONSISTENT NRG Oxycodone NEGATIVE ng/mL <100 medMATCH Oxycodone CONSISTENT NRG COMMENT NRG Buprenorphine NEGATIVE ng/mL <5 MDMA NEGATIVE ng/mL <500 medMATCH MDMA CONSISTENT NRG Alcohol Metabolites NEGATIVE ng/mL <500 medMATCH Alcohol Metab CONSISTENT NRG 6 Acetylmorphine NEGATIVE ng/mL <10 medMATCH 6 Acetylmorphine CONSISTENT NR G Alphahydroxyalprazolam NEGATIVE ng/mL <25 medMATCH aOH alprazolam CONSISTENT NRG Alphahydroxymidazolam NEGATIVE ng/mL < 50 medMATCH aOH midazolam CONSISTENT NRG Alphahydroxytriazolam NEGATIVE ng/mL < 50 medMATCH aOH triazolam CONSISTENT NRG Aminoclonazepam NEGATIVE ng/mL <25 medMATCH Aminoclonazepam CONSISTENT NRG Hydroxyethylflurazepam NEGATIVE ng/mL <50 medMATCH OH,Et flurazepam CONSISTENT NR G Lorazepam NEGATIVE ng/mL <50 medMATCH Lorazepam CONSISTENT NRG Nordiazepam NEGATIVE ng/mL <50 medMATCH Nordiazepam CONSISTENT NRG Oxazepam NEGATIVE ng/mL <50 medMATCH Oxazepam CONSISTENT NRG Temazepam NEGATIVE ng/mL <50 medMATCH Temazepam CONSISTENT NRG medMATCH Buprenorphine CONSISTENT NRG PDM - ATS (PROFILE 8 WITH CONFIRMATION) - 07/05/19 16:33 Prescribed Drug 1 Xanax(TM) NRG Creatinine 150.5 mg/dL > or = 20.0 pH 5.54 4.5 - 9.0 Oxidant NEGATIVE mcg/mL <200 Amphetamines NEGATIVE ng/mL <500 medMATCH Amphetamines CONSISTENT NRG Benzodiazepines POSITIVE ng/mL <100 Marijuana Metabolite NEGATIVE ng/mL <20 medMATCH Marijuana Metab CONSISTENT NRG Cocaine Metabolite NEGATIVE ng/mL <150 medMATCH Cocaine Metab CONSISTENT NRG Opiates NEGATIVE ng/mL <100 medMATCH Opiates CONSISTENT NRG Oxycodone NEGATIVE ng/mL <100 medMATCH Oxycodone CONSISTENT NRG COMMENT NRG Buprenorphine NEGATIVE ng/mL <5 MDMA NEGATIVE ng/mL <500 medMATCH MDMA CONSISTENT NRG Alcohol Metabolites NEGATIVE ng/mL <500 medMATCH Alcohol Metab CONSISTENT NRG 6 Acetylmorphine NEGATIVE ng/mL <10 medMATCH 6 Acetylmorphine CONSISTENT NR G Alphahydroxyalprazolam 36 ng/mL <25 medMATCH aOH alprazolam CONSISTENT NRG Alphahydroxymidazolam NEGATIVE ng/mL < 50 medMATCH aOH midazolam CONSISTENT NRG Alphahydroxytriazolam NEGATIVE ng/mL < 50 medMATCH aOH triazolam CONSISTENT NRG Aminoclonazepam NEGATIVE ng/mL <25 medMATCH Aminoclonazepam CONSISTENT NRG Hydroxyethylflurazepam NEGATIVE ng/mL <50 medMATCH OH,Et flurazepam CONSISTENT NR G Lorazepam NEGATIVE ng/mL <50 medMATCH Lorazepam CONSISTENT NRG Nordiazepam NEGATIVE ng/mL <50 medMATCH Nordiazepam CONSISTENT NRG Oxazepam NEGATIVE ng/mL <50 medMATCH Oxazepam CONSISTENT NRG Temazepam NEGATIVE ng/mL <50 medMATCH Temazepam CONSISTENT NRG medMATCH Buprenorphine CONSISTENT NRG Encounters ACCT No. Visit Date/Time Discharge Status Pt. Type Provider Facility Loc./Unit Complaint [id number] 08/01/2017 08:36:00 Document Registration [id number] 01/10/2015 16:02:00 01/10/2015 23:59: 59 [facility] [place] [id number] 10/11/2014 16:00:00 10/11/2014 23:59: 59 CLS Outpatient CHEYENNE LIN [id number] 10/11/2014 16:00:00 10/11/2014 23:59: 59 CLS Outpatient CHEYENNE LIN [id number] 07/04/2014 16:28:00 07/04/2014 23:59: 59 CLS Outpatient AMADOU COLON APRN [id number] 10/25/2013 16:57:00 10/25/2013 23:59: 59 CLS Outpatient AMADOU COLON APRN [id number] 07/23/2013 10:01:00 07/23/2013 23:59: 59 CLS Outpatient AMADOU COLON APRN [id number] 01/18/2013 16:36:00 01/18/2013 23:59: 59 CLS Outpatient AMADOU COLON APRN [id number] 10/20/2012 16:34:00 10/20/2012 23:59: 59 CLS Outpatient AMADOU COLON APRN [id number] 08/17/2012 16:27:00 08/17/2012 23:59:5 9 CLS Outpatient AMADOU COLON APRN [id number] 04/20/2013 16:29:00 Document Registration [id number] 03/06/2020 14:20:00 03/06/2020 23:59: 59 [facility] [id number] 07/05/2019 16:00:00 Document Registration [id number] 04/05/2019 16:00:00 Document Registration [id number] 08/20/2018 10:40:00 Document Registration [id number] 07/31/2017 09:20:00 Document Registration [id number] 04/25/2020 13:10:00 020 14:02:00 DIS Emergency DEXTER [facility] P[facility]ER [facility] ER FALL [id number] 03/11/2018 15:55:00 018 16:50:00 DIS Emergency GISEL BAPTISTE Via [facility] ER BITES/POSS STAFF
== END 2020-04-25 14:02 | disposition home or self-care (01) ==
LOC: EDUNIT# 13:09 → ER 13:10
DX: S40.011A Contusion of right shoulder, initial encounter (principal); F31.9 Bipolar disorder, unspecified; F43.10 Post-traumatic stress disorder, unspecified; W19.XXXA Unspecified fall, initial encounter
CPT/HCPCS: 99283